=== PATIENT | male | born 1940 | race Hispanic/Latino ===

== ENCOUNTER 2021-03-20 13:06 | Emergency (ER) | payer OTHER, SELFPAY ==
--- OUTSIDE RECORDS SUMMARY | 2021-03-20 13:14 | XMS REPORT | Clinical Summary ---
:1940 Author Organization [facility] MD [facility] Address [address] [place] [address] Care Team Providers Name Role Phone Pako Lopez MD Unavailable MD Danny Primary Care Provider MD Yeny Unavailable Allergies No known active allergies Medications Medication Sig Dispensed Refills Start Date End Date Status ibuprofen (AdviL) 200 Take 200 mg by 0 Active mg tablet mouth every 6 (six) hours as needed for mild pain. As needed for back pain cholecalciferol, Take 2,000 Units 0 Active vitamin D3, (VITAMIN by mouth twice D3) 2,000 units tab daily. Patient tablet instructed to take twice a day pantoprazole Take 1 tablet (40 30 tablet 5 05/16/2020 Active (Protonix) 40 mg EC mg) by mouth tabletIndications: daily with Adenocarcinoma of breakfast. prostate leuprolide, 4 month, Inject 30 mg 0 Active (Eligard, 4 month,) 30 under the skin mg injection every 4 (four) months. Last dose 05/16/2020 acetaminophen Take 500 mg by 0 A ctive (TYLENOL) 500 mg mouth every 6 tablet (six) hours as needed for mild pain. bicalutamide (CASODEX) Take 1 tablet (50 30 tablet 0 1 Active 50 mg mg) by mouth tabletIndications: daily. Adenocarcinoma of prostate enalapril (VASOTEC) 10 Take 1 tablet (10 90 tablet 2 1 Active mg tabletIndications: mg) by mouth blood pressure daily. Hold dose if systolic blood pressure (top number) is less than 110. tamsulosin (FLOMAX) Take 2 capsules 60 capsule 6 09/25/2020 Active 0.4 mg 24 hr (0.8 mg) by mouth capsuleIndications: at bedtime. Adenocarcinoma of prostate diphenoxylate-atropine Take 1 tablet by 45 tablet 0 2020 Active (LomotiL) 2.5 mg-0.025 mouth every 6 mg per (six) hours as tabletIndications: needed for Diarrhea diarrhea. Not to exceed 8 tablets per day Additional Information Patient not taking. Reason: Other, Reported on 10/27/2020 mirtazapine (REMERON) Take 1 tablet 30 tablet 0 2020 Active 7.5 mg (7.5 mg) by tabletIndications: mouth at Insomnia due to medical bedtime. condition metoprolol succinate Take 1 tablet 90 tablet 3 10/27/2020 Active (TOPROL XL) 25 mg 24 hr (25 mg) by mouth tabletIndications: daily. Hold blood pressure, heart dose if systolic rate blood pressure (top number) is less than 110 or heart rate less than 55. apixaban (Eliquis) 5 mg Take 1 tablet (5 60 tablet 5 Active tabletIndications: mg) by mouth Paroxysmal atrial every 12 fibrillation (twelve) hours. amLODIPine (NORVASC) 5 Take 5 mg by 0 / 3 Discontinued mg tablet mouth daily. (Stop T aking at Discharge) enalapril (VASOTEC) 10 Take 10 mg by 0 11 Discontinued mg tablet mouth daily. (Reorde r) acetaminophen (TYLENOL) Take 500 mg by 0 0 3/05 Discontinued 500 mg tablet mouth as needed /2020 (Therapy for mild pain. compl eted) PRN for headache venlafaxine (Effexor Take 1 capsule 30 capsule 5 04/18/2020 Discontinued XR) 75 mg 24 hr (75 mg) by mouth /2020 (Stop Taking at capsuleIndications: at bedtime. Discharge) Adenocarcinoma of prostate zolpidem (Ambien) 5 mg Take 1 tablet (5 30 tablet 5 04/18/202005/16 Discontinued tabletIndications: mg) by mouth /2020 (Reorder) Adenocarcinoma of nightly as prostate needed for sleep. degarelix (FIRMAGON) Inject 240 mg 0 07/16 Discontinued 120 mg/3 mL solr under the skin (Therapy injection once. Last dose com pleted) 04/18/2020 zolpidem (Ambien) 5 mg Take 1 tablet (5 30 tablet 5 05/16/202008/20 Discontinued tabletIndications: mg) by mouth /2020 (Reorder) Adenocarcinoma of nightly as prostate needed for sleep. sodium,potassium,mag Take as directed 177 mL 0 07/25/2020 0 08/24 Discontinued sulfates (Suprep) for colonoscopy /2020 (Stop Taking at 17.5-3.13-1.6 gram prep D ischarge) solrIndications: Colonoscopy planned ciprofloxacin HCl Take 1 tablet 6 tablet 0 07/29/202008/01 (Cipro) 250 mg (250 mg) by tabletIndications: mouth twice Adenocarcinoma of daily for 3 prostate days. Additional Information Patient not taking. Reason: No longer taking, Informant: Spouse/Significant Other, Reported on 07/30/2020 bicalutamide (CASODEX) Take 1 30 tablet 5 07/30/20202020 Discontinued 50 mg tablet (50 (Reorder) tabletIndications: mg) by mouth Adenocarcinoma of daily. prostate tamsulosin (FLOMAX) Take 1 30 capsule 6 07/30/2020 09/26/19 Discontinued 0.4 mg 24 hr capsule (0.4 (Reo rder) capsuleIndications: mg) by mouth Adenocarcinoma of at bedtime. prostate ondansetron Dissolve 1 20 tablet 1 08/20/2020 10/31/2020 Disco ntinued (ZOFRAN-ODT) 8 mg tablet (8 (T herapy disintegrating mg) on the comp leted) tabletIndications: tongue every Adenocarcinoma of 8 (eight) prostate hours as needed for vomiting. zolpidem (Ambien) 5 mg Take 1 30 tablet 5 08/21/20202020 Discontinued tabletIndications: tablet (5 ( Therapy Adenocarcinoma of mg) by mouth completed) prostate nightly as needed for sleep. amoxicillin-clavulanat Take 1 14 tablet 0 08/22/20202020 e (Augmentin) 875 tablet (875 mg-125 mg per mg) by mouth tabletIndications: twice daily infection for 7 days. metoprolol succinate Take 1 30 tablet 2 08/22/2020 10/28/19 21 Discontinued (TOPROL XL) 25 mg 24 tablet (25 (Reorder) hr tabletIndications: mg) by mouth blood pressure, heart daily. Hold rate dose if systolic blood pressure (top number) is less than 110 or heart rate less than 55. enalapril (VASOTEC) 10 Take 1 0 08/22/20202020 Discontinued mg tabletIndications: tablet (10 (Reorder) blood pressure mg) by mouth daily. Hold dose if systolic blood pressure (top number) is less than 110. enalapril (VASOTEC) 10 Take 1 90 tablet 0 08/24/20202020 Discontinued mg tabletIndications: tablet (10 (Reorder) blood pressure mg) by mouth daily. Hold dose if systolic blood pressure (top number) is less than 110. Active Problems Patient Care Coordination Note Formatting of this note might be differe nt from the original. Patient with cognitive issues and needs assistance with ADLs. Please allow daughter to accompany him to clinic visits and procedures . The following people are approved to obt ain medical information about the patient via phone: Contact #1: Name: Latoya Serna ( Daughter ) [phone] Contact #2: Name: Phone Number: Contact #3: Name: Phone Number: Contact #4: Name: Phone Number: Patient has some cognitive deficiency th at will require assistance by his daughter during procedures and clinic visits. Problem Noted Date Atrial fibrillation 08/22/2020 Last Assessment & Plan: Patient had an episode of atrial fibrill ation with a heart rate of 95 bpm on EKG 08 27 2020 when he presented status post fall. On exam patient is in a regular rate and rhythm. Most recent EKG shows s inus rhythm. Asymptomatic for palpitati ons. Continue rhythm control on metoprolol succinate 25 mg p.o. daily. CHADS-VASc: 3 (HTN, age x 2) HAS-BLED: 1 (fall) with prior recommendation for patient to be started on anticoagulation. Was seen and emailed cardiology attending and primary team regarding starting patient on Eliquis 5 mg p.o. twice daily. Dizziness 08/22/2020 Pneumonia 08/22/2020 Hypotension 08/22/2020 Insomnia 05/16/2020 Anemia in neoplastic disease 04/19/2020 Overweight 04/19/2020 Chronic back pain 02/14/2020 Adjustment disorder with mixed anxiety and depressed m ood 02/14/2020 Nocturia 02/14/2020 Essential (primary) hypertension 02/13/2020 Last Assessment & Plan: Blood pressure modestly controlled in e clinicat 146/71. Continue management with metoprolol succinate 25 mg daily and enalapril 10 mg p.o. daily Mixed hyperlipidemia 02/13/2020 Adenocarcinoma of prostate 02/08/2020 Resolved Problems Problem Noted Date Resolved Date Chest pain 08/22/2020 10/27/2020 Adjustment disorder with anxiety 04/18/2020 021 Acute hypoxemic respiratory failure 03/05/2020 02/0 08/2020 COVID-19 viral pneumonia 02/27/2020 04/19/2020 Encounters Date Type Specialty Care Team Description 01/12/2021 Refill Radiation Oncology Christatrey, Adenocarc inoma of Serena, STOCK CAR DRIVER prostate 01/12/2021 Orders Only Genitourinary Oncology Kait Nails, RPH 11/20/2020 Refill Genitourinary Oncology Sanjuanita Lerma, Ad enocarcinoma of FIRST RESPONDER prostate 11/19/2020 Telephone Radiation Oncology Hang Menjivar RN 11/19/2020 Nurse Only Radiation Oncology Hang Menjivar RN 10/31/2020 Telemedicine Gastroenterology, Navin Lal Diarrhe a (Primary Dx); Hepatology & Nutrition MD Gavin gardner history of colon polyps 10/31/2020 Prep for Surgery Gastroenterology, Polly Berg, Hepatology & Nutrition FIRST RESPONDER 10/31/2020 Travel 10/29/2020 Telephone Radiation Oncology Emely Ng, ARA 10/29/2020 Nurse Only Radiation Oncology Emely Ng, ARA 10/27/2020 Follow-Up Cardiology Ian, Paroxysmal atri al fibrillation; Kathie Moser NP Essential (primary) hypertension Harlan Brandon PA 10/27/2020 Travel 10/23/2020 Orders Only Radiation Oncology Crabtrey, Adenocarc inoma of Serena, STOCK CAR DRIVER prostate (Prim aislinn Dx) 10/17/2020 Hospital Encounter Radiation Oncology Nick Delgado MD 10/17/2020 Documentation Proton Therapy Marek Saini MD 10/17/2020 Travel 10/16/2020 Hospital Encounter Radiation Oncology Nick Delgado MD 10/16/2020 Travel 10/15/2020 Hospital Encounter Radiation Oncology Nick Delgado MD 10/15/2020 Travel 10/14/2020 Hospital Encounter Radiation Oncology Nick Delgado MD 10/14/2020 Travel 10/13/2020 Hospital Encounter Radiation Oncology Nick Delgado MD 10/13/2020 Travel 10/10/2020 Hospital Encounter Radiation Oncology Nick Delgado MD 10/10/2020 Travel 10/09/2020 Hospital Encounter Radiation Oncology Nick Delgado MD 10/09/2020 Travel 10/08/2020 Hospital Encounter Radiation Oncology Nick Delgado MD 10/08/2020 Hospital Encounter Radiation Oncology Marek Saini MD 10/08/2020 Travel 2020 Hospital Encounter Radiation Oncology Nick Delgado MD 2020 Travel 10/06/2020 Hospital Encounter Radiation Oncology Nick Delgado MD 10/06/2020 Travel 10/03/2020 Hospital Encounter Radiation Oncology Nick Delgado MD 10/03/2020 Travel 10/01/2020 Hospital Encounter Radiation Oncology Yeny Milly nocarcinoma of MD Marek prostate (Prim aislinn Dx) 10/01/2020 Telephone Radiation Oncology Hang Menjivar RN 10/01/2020 Travel 09/30/2020 Hospital Encounter Radiation Oncology Nick Delgado MD 09/30/2020 Travel 09/29/2020 Hospital Encounter Radiation Oncology Nick Delgado MD 09/29/2020 Travel 09/26/2020 Hospital Encounter Radiation Oncology Nick Delgado MD 09/26/2020 Travel 09/25/2020 Hospital Encounter Radiation Oncology Nick Delgado MD 09/25/2020 Travel 09/25/2020 Orders Only Radiation Oncology Ashley Jones 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, FIRST RESPONDER prostate 09/24/2020 Hospital Encounter Radiation Oncology Nick Delgado MD 09/24/2020 Hospital Encounter Radiation Oncology Milly Saini nocarcinoma of MD Marek prostate (Prim aislinn Dx) 09/24/2020 Hospital Encounter Radiation Oncology Nick Delgado MD 09/24/2020 Hospital Encounter Radiation Oncology Nick Delgado MD 09/24/2020 Documentation Physical Therapy Mattie Royal, PT 09/24/2020 Travel 09/23/2020 Hospital Encounter Radiation Oncology Nick Delgado MD 09/23/2020 Travel 09/22/2020 Hospital Encounter Radiation Oncology Nick Delgado MD 09/22/2020 Hospital Encounter Radiation Oncology Nick Delgado MD 09/22/2020 Travel 09/19/2020 Hospital Encounter Radiation Oncology Nick Delgado MD 09/19/2020 Telephone Radiation Oncology Hang Menjivar RN 09/19/2020 Travel 09/18/2020 Hospital Encounter Radiation Oncology Nick Delgado MD 09/18/2020 Orders Only Radiation Oncology Jeannie Sainicardavid inoma of MD Marek prostate (Prim aislinn Dx) 09/18/2020 Travel 09/17/2020 Hospital Encounter Radiation Oncology Nick Delgado MD 09/17/2020 Hospital Encounter Radiation Oncology Milly Saini nocarcinoma of MD Marek prostate (Prim aislinn Dx) 09/17/2020 Travel 09/16/2020 Hospital Encounter Radiation Oncology Nick Delgado MD 09/16/2020 Telephone Radiation Oncology Hang Menjivar RN 09/16/2020 Travel 09/12/2020 Hospital Encounter Radiation Oncology Nick Delgado MD 09/12/2020 Travel 09/11/2020 Hospital Encounter Radiation Oncology Nick Delgado MD 09/11/2020 Travel 09/10/2020 Hospital Encounter Radiation Oncology Nick Delgado MD 09/10/2020 Hospital Encounter Radiation Oncology Marek Saini MD 09/10/2020 Travel 09/09/2020 Hospital Encounter Radiation Oncology Nick Delgado MD 09/09/2020 Travel 09/08/2020 Hospital Encounter Radiation Oncology Nick Delgado MD 09/08/2020 Travel 09/05/2020 Hospital Encounter Radiation Oncology Nick Delgado MD 09/05/2020 Travel 09/04/2020 Hospital Encounter Radiation Oncology Nick Delgado MD 09/04/2020 Travel 09/03/2020 Hospital Encounter Radiation Oncology Nick Delgado MD 09/03/2020 Hospital Encounter Radiation Oncology Milly SainiarcIván MD prostate (Prim aislinn Dx) 09/03/2020 Travel 09/02/2020 Hospital Encounter Radiation Oncology Nick Delgado MD 09/02/2020 Travel 09/01/2020 Hospital Encounter Radiation Oncology Nick Delgado MD 09/01/2020 Travel 09/01/2020 Telephone Radiation Oncology Hang Menjivar, RN 08/30/2020 Emergency Emergency Medicine Juan Pablo Hanson Chronic d epression (Primary Dx); MD Rui Mild dehydratio n; Fatigue; Anemia of chron ic disease; Anorexia; Adenocarcinoma of prostate 08/30/2020 Travel 08/30/2020 Nurse Lou Durant, ARA 08/29/2020 Hospital Encounter Radiation Oncology Nick Delgado MD 08/29/2020 Travel 08/28/2020 Hospital Encounter Radiation Oncology Nick Delgado MD 08/28/2020 Travel 08/27/2020 Hospital Encounter Lab Crabtrey, Dysuria Serena, STOCK CAR DRIVER 08/27/2020 Hospital Encounter Radiation Oncology Nick Delgado MD 08/27/2020 Hospital Encounter Radiation Oncology Milly Saini nocarcinoBetty MD prostate (Prim aislinn Dx) 08/27/2020 Orders Only Radiation Oncology Crabtrey, Adenocarc inoma of Serena, STOCK CAR DRIVER prostate (Prim aislinn Dx) 08/27/2020 Orders Only Radiation Oncology Crabtrey, Dysuria ( Primary Serena, STOCK CAR DRIVER Dx) 08/27/2020 Travel 08/26/2020 Hospital Encounter Radiation Oncology Nick Delgado MD 08/26/2020 Travel 08/24/2020 Orders Only Genitourinary Oncology Robert, Adeno carcinoma of Renju, SENIOR CREDIT ANALYST prostate (Prima ry Dx) 08/22/2020 Travel 08/21/2020 Hospital Encounter Gastrointestinal Juan Pablo Hanson Bifas cicular block (Primary Dx); - Surgery MD Rui Syncope; 08/24/2020 Daniel Lal, Joy; Paroxysmal atrial fibrillation; Nick Delgado, Chest pain, not otherwise specified; High troponin I level; Postprandial di arrhea; Contusion of he ad; Moderate dehydr ation; Essential (prim aislinn) hypertension; Adenocarcinoma of prostate; Pneumonia, not otherwise specified; Atrial fibrilla tion, not otherwise specified; Anemia in neopl astic disease 08/21/2020 Hospital Encounter Radiation Oncology Nick Delgado MD 08/21/2020 Documentation Radiation Oncology Ashley Jones, FIRST RESPONDER 08/21/2020 Travel 08/20/2020 Hospital Encounter Radiation Oncology Nick Delgado MD 08/20/2020 Refill Genitourinary Oncology Sanjuanita Lerma, Balbir enocarcinoma of FIRST RESPONDER prostate 08/20/2020 Refill Radiation Oncology Crabtrey, Adenocarc inoma of Serena, STOCK CAR DRIVER prostate 08/20/2020 Orders Only Radiation Oncology Crabtrey, Adenocarc inoma of Serena, STOCK CAR DRIVER prostate (Prim aislinn Dx) 08/20/2020 Travel 08/19/2020 Hospital Encounter Radiation Oncology Nick Delgado MD 08/19/2020 Travel 08/18/2020 Hospital Encounter Radiation Oncology Nick Delgado MD 08/18/2020 Travel 08/18/2020 Documentation Proton Therapy Marek Saini MD 08/11/2020 Hospital Encounter Radiation Oncology Nick Delgado MD 08/07/2020 Orders Only GastroenterologyJose Personal h istory of Hepatology & Nutrition DEVAUGHN Gonzalez colon ic polyp (Primary Dx) 07/30/2020 Hospital Encounter Radiation Oncology Marek Saini MD 07/30/2020 Hospital Encounter Radiation Oncology SubNick perales, Adenocarcinoma of MD prostate 07/30/2020 Hospital Encounter Radiation Oncology SubNick perales, Adenocarcinoma of MD prostate 07/30/2020 Documentation Proton Therapy Marek Saini MD 07/30/2020 Orders Only Radiation Oncology Crabtrey, Adenocarc inoma of Serena, STOCK CAR DRIVER prostate (Prim aislinn Dx) 07/30/2020 Documentation Radiation Oncology Crabtrey, Serena, STOCK CAR DRIVER 07/30/2020 Documentation Proton Therapy Marek Saini MD 07/30/2020 Orders Only Radiation Oncology Crabtrey, Adenocarc inoma of Serena, STOCK CAR DRIVER prostate (Prim aislinn Dx) 07/30/2020 Travel 07/29/2020 Anesthesia Event Radiology Amos Velez, Henry Triana, MARIA R 07/29/2020 Hospital Encounter Radiology Danny Nick, Adenoc arcinoma of MD prostate Henry Small, CURATOR HERBARIUM Chapito Lopez MD 07/29/2020 Telephone Radiation Oncology Hang Menjivar, RN 07/29/2020 Telephone Radiation Oncology Hang Menjivar RN 07/29/2020 Travel 07/28/2020 POEM Appointments Anesthesiology Kateryna Gu PA 07/28/2020 Anesthesia Event Endoscopy Alexis Cam MD 07/28/2020 Surgery Endoscopy [facility] DIAGNOSTIC FLEX IBLE Major, COLONOSCOPY MD Tanesha PROXIMAL TO SPL ENIC FLEXURE 07/28/2020 Hospital Encounter Endoscopy [facility] Adenocarc inoma of Major, prostate MD Tanesha 07/28/2020 Hospital Encounter Lab Brittanie, Adenocarc inoma of Kateryna ELIZABETH Saez prostate 07/28/2020 Orders Only Radiology Susan Up PA 07/28/2020 Orders Only Radiology Susan Up Adenocarcino ma of PA prostate (Prima ry Dx) 07/28/2020 Travel 07/27/2020 Clinical Support Infectious Diseases Nick Delgado E ncounter for MD observation for Paola Rodriguez, other suspecte d RN exposure to biological agen t ruled out (Prim aislinn Dx) 07/27/2020 Travel 07/25/2020 Anesthesia Event Anesthesiology Dwain Estrada RN 07/25/2020 POEM Appointments Anesthesiology Nick Delgado MD 07/25/2020 Orders Only MorenoologyPhil Lauren Colonoscop y planned Hepatology & Nutrition ELIZABETH Alvarado (Prim aislinn Dx) 07/25/2020 Refill Anesthesiology Dwain Estrada RN 07/17/2020 Orders Only Radiology Kateryna Gu PA 07/16/2020 Office Visit Genitourinary Oncology Nick Delgado, Stephanie sential (primary) hypertension (Primary Dx); Adenocarcinoma of prostate; Mixed hyperlipi demia; Chronic back pa in; Adjustment diso rder with mixed anxiety and depressed mood; Nocturia; Anemia in neopl astic disease; Insomnia, not o therwise specified; Overweight 07/16/2020 Hospital Encounter Radiation Oncology Milly Saini nocarcinoma of MD Marek prostate 07/16/2020 Travel 07/15/2020 Ancillary Procedure Radiology Sanjuanita Lerma, Adeno carcinoma of FIRST RESPONDER prostate 07/15/2020 Ancillary Procedure Radiology Sanjuanita Lerma, FIRST RESPONDER 07/15/2020 Ancillary Procedure Radiology Sanjuanita Lerma, Adeno carcinoma of FIRST RESPONDER prostate 07/15/2020 Hospital Encounter Lab Sanjuanita Lerma, Adenoc arcinoma of FIRST RESPONDER prostate 07/15/2020 Travel 06/12/2020 Orders Only Intensive Care Sanjuanita Lerma, FIRST RESPONDER 05/31/2020 Immunization Infectious Diseases [place], SARS-CoV -2 MD Rick vaccination (Primary Dx) 05/31/2020 Travel 05/28/2020 Orders Only Radiation Oncology Crabtrey, Adenocarc inoma of Serena, STOCK CAR DRIVER prostate (Prim aislinn Dx) 05/19/[address] 05/18/2020 Orders Only Genitourinary Oncology Sanjuanita Lerma, Ad enocarcinoma of FIRST RESPONDER prostate (Prima ry Dx) 05/16/2020 Office Visit Genitourinary Oncology Nick Delgado Ad enocarcinoma of prostate (Primary Dx); Essential (prim aislinn) hypertension; Mixed hyperlipi demia; Chronic back pa in; Adjustment diso rder with mixed anxiety and depressed mood; Nocturia; Anemia in neopl astic disease; Overweight; Other insomnia 05/16/2020 Hospital Encounter Lab Reginaldo Padilla, Adenocarc inoma of SENIOR CREDIT ANALYST prostate 05/16/2020 Travel 05/12/2020 Orders Only Genitourinary Oncology Sanjuanita Lerma, FIRST RESPONDER 04/21/2020 Emergency Emergency Medicine Attila, Dysphagia (Primary Dx); - MD Otoniel Adenocarcinoma of prostate 04/22/2020 04/21/2020 Travel 04/21/2020 Orders Only Genitourinary Oncology Reginaldo Padilla, Adeno carcinoma of SENIOR CREDIT ANALYST prostate (Prima ry Dx) 04/21/2020 Telephone Genitourinary Oncology Mercedez Galloway RN 04/18/2020 Immunization Infectious Diseases Davin SARS-CoV -2 MD Rick vaccination 04/18/2020 Office Visit Genitourinary Oncology Nick Delgado Ad enocarcinoma of prostate (Primary Dx); Nocturia; Overweight; Adjustment diso rder with mixed anxiety and depressed mood; Anemia in neopl astic disease; Chronic back pa in 04/18/2020 Travel 04/17/2020 Orders Only Genitourinary Oncology Sanjuanita Lerma, FIRST RESPONDER 04/16/2020 Orders Only Infectious Diseases YUE Jin-CoV -2 MD Rick vaccination 04/09/2020 Hospital Encounter Cardiology Sanjuanita Lerma, Adenoc arcinoma of FIRST RESPONDER prostate 04/09/2020 Ancillary Procedure Radiology Nisha Lermane, Adeno carcinoma of FIRST RESPONDER prostate 04/09/2020 Travel 04/08/2020 Hospital Encounter Lab Sanjuanita Lerma, Adenoc arcinoma of FIRST RESPONDER prostate 04/08/2020 Anesthesia Event Radiology Malathi García, RN 04/08/2020 Ancillary Procedure Radiology Sanjuanita Lerma, Adeno carcinoma of FIRST RESPONDER prostate 04/08/2020 Orders Only Genitourinary Oncology Sanjuanita Lerma, Ad enocarcinoma of FIRST RESPONDER prostate (Prima ry Dx) 04/08/2020 Travel 03/26/2020 Hospital Encounter Radiation Oncology Milly Saini nocarcinoma of MD Marek prostate 03/26/2020 Prep for Surgery Endoscopy Keli Ackerman, Adenocar cinoma of FIRST RESPONDER prostate (Prima ry Dx) 03/25/2020 Telephone Radiation Oncology Johnny Yeager, ARA 03/25/2020 Documentation Radiation Oncology Jhonny Yeager, ARA 03/23/2020 Orders Only Genitourinary Oncology Sanjuanita eLrma NP 03/21/2020 Nurse Only Radiation Oncology Hang Menjivar RN after 03/20/2020 Immunizations Name Administration Dates Next Due Kendra SARS-CoV-2 Vaccination 05/31/2020 remdesivir 03/07/2020, 03/06/2020, 03/05/2020, 03/04/2020, 03/03/2020 Surgical History Surgery Date Site/Laterality Comments LAPAROSCOPIC CHOLECYSTECOMY PROSTATE BIOPSY 09/14/2019 HERNIA REPAIR Bilateral SHOULDER SURGERY 03/14/2011 - Right 03/13/2012 [place] COLONOSCOPY FLX DX 07/28/2020 N/A Procedure: DIAGNOSTIC W/COLLJ SPEC WHEN PFRMD FLEXIBLE COLONOSCOPY PROXIMAL TO SPLE ARAVIND FLEXURE; Surgeo n: Tanesha Major MD; Location: MAIN E NDOSCOPY; Service: GASTROE NTEROLOGY Medical History Medical History Date Comments Essential hypertension Chronic depression Adenocarcinoma of prostate 09/14/2019 Social History Tobacco Use Types Packs/Day Years Used Date Former Smoker Cigarettes 0.5 43 1964 - 2007 Smokeless Tobacco: Never Used Comments: used to smoke; quit 12 years a go Alcohol Use Standard Drinks/Week Comments Never 0 (1 standard drink = 0.6 oz pure alcoho l) Alcohol Habits Answer Date Recorded How often do you have a drink containing alcohol? Never 02/13/2020 How many drinks containing alcohol do you have on a typical Not asked 02/13/2020 day when you are drinking? How often do you have six or more drinks on one occasion? Ne nehemias 02/13/2020 Comment: Not asked Sex Assigned at Date Recorded Not on file Job Start Date Occupation Industry Not on file Not on file Not on file Obstetrics History Last Filed Vital Signs Vital Sign Reading Time Taken Comments Blood Pressure 146/71 10/27/2020 3:30 PM CDT Pulse 53 10/27/2020 3:30 PM CDT Temperature 36.7 C (98.1 F) 10/27/2020 3:30 PM CDT Respiratory Rate 16 10/27/2020 3:30 PM CDT Oxygen Saturation 97% 10/27/2020 3:30 PM CDT Inhaled Oxygen Concentration - - Weight 62.4 kg (137 lb 9.1 oz) 10/27/2020 3:30 PM CDT Height 161 cm (5' 3.39") 08/21/2020 11:51 PM CDT Body Mass Index 24.07 08/21/2020 11:51 PM CDT Plan of Treatment Date Type Specialty Care Team Description 04/29/2021 Appointment Lab Chon Stuart, STOCK CAR DRIVER [address] [place], [place] [address] (Wo rk) 04/29/2021 Appointment Radiation Oncology Margarita Saini MD [address] [place], [place] [address] (Wo rk) 04/29/2021 Follow-Up Cardiology Harlan Brandon PA [address] [place], [place] [address] (Wo rk) Health Maintenance Due Date Last Done Comments COVID-19 Vaccination (2 - Booster for Kendra series) 07/26/2020 05/31/2020 Procedures Procedure Name Priority Date/Time Associated Diagnosis Comme nts EKG, 12-LEAD (PORTABLE) STAT 08/31/2020 CT HEAD WO CONTRAST Routine 08/30/2020 Results for 5:35 PM CDT this procedure are in the results section. INFLUENZA A/B + Now 08/30/2020 Results for COVID-19 ASYMPTOMATIC-L 4:58 PM CDT this procedure are in the results section. POC TROPONIN I Routine 08/30/2020 Results for 4:55 PM CDT this procedure are in the results section. POC GLUCOSE SCREEN Routine 08/30/2020 Results f or 4:40 PM CDT this procedure are in the results section. TMP INTERPRETATION STAT 08/30/2020 Results f or ANTIBODY SCREEN 4:36 PM CDT this procedu re NEGATIVE are in the results section. CLOT EXPIRATION DATE STAT 08/30/2020 Results for 4:36 PM CDT this procedure are in the results section. FRACTIONATED BILIRUBIN Now 08/30/2020 Resul ts for 4:36 PM CDT this procedure are in the results section. TOTAL PROTEIN Now 08/30/2020 Results for 4:36 PM CDT this procedure are in the results section. ASPARTATE Now 08/30/2020 Results for AMINOTRANSFERASE 4:36 PM CDT this proced ure are in the results section. ALANINE Now 08/30/2020 Results for AMINOTRANSFERASE 4:36 PM CDT this proced ure are in the results section. ALKALINE PHOSPHATASE Now 08/30/2020 Results for 4:36 PM CDT this procedure are in the results section. ALBUMIN LEVEL Now 08/30/2020 Results for 4:36 PM CDT this procedure are in the results section. CALCIUM LEVEL TOTAL Now 08/30/2020 Results for 4:36 PM CDT this procedure are in the results section. .GLOMERULAR FILTRATION Now 08/30/2020 Resul ts for RATE 4:36 PM CDT this procedure are in the results section. SERUM CREATININE Now 08/30/2020 Results for 4:36 PM CDT this procedure are in the results section. ELECTROLYTE PANEL Now 08/30/2020 Results fo r 4:36 PM CDT this procedure are in the results section. BLOOD UREA NITROGEN Now 08/30/2020 Results for 4:36 PM CDT this procedure are in the results section. GLUCOSE LEVEL Now 08/30/2020 Results for 4:36 PM CDT this procedure are in the results section. MANUAL DIFFERENTIAL STAT 08/30/2020 Results for 4:36 PM CDT this procedure are in the results section. Results CBC STAT 08/30/2020 Results for 4:36 PM CDT this procedure are in the results section. ANTIBODY SCREEN STAT 08/30/2020 Results for 4:36 PM CDT this procedure are in the results section. ABORH STAT 08/30/2020 Results for 4:36 PM CDT this procedure are in the results section. FREE THYROXINE Now 08/30/2020 Results for 4:36 PM CDT this procedure are in the results section. URIC ACID Now 08/30/2020 Results for 4:36 PM CDT this procedure are in the results section. THYROID STIMULATING Now 08/30/2020 Results for HORMONE 4:36 PM CDT this procedure are in the results section. LIPASE LEVEL Now 08/30/2020 Results for 4:36 PM CDT this procedure are in the results section. AMYLASE LEVEL Now 08/30/2020 Results for 4:36 PM CDT this procedure are in the results section. TYPE AND SCREEN STAT 08/30/2020 4:36 PM CDT APTT Now 08/30/2020 Results for 4:36 PM CDT this procedure are in the results section. PROTHROMBIN TIME Now 08/30/2020 Results for 4:36 PM CDT this procedure are in the results section. PHOSPHORUS LEVEL Now 08/30/2020 Results for 4:36 PM CDT this procedure are in the results section. MAGNESIUM LEVEL Now 08/30/2020 Results for 4:36 PM CDT this procedure are in the results section. COMPREHENSIVE METABOLIC Now 08/30/2020 PANEL 4:36 PM CDT COMPLETE BLOOD COUNT W/ Now 08/30/2020 DIFFERENTIAL 4:36 PM CDT URINALYSIS WITH Routine 08/27/2020 Results for MICROSCOPIC IF 12:29 PM CDT this procedur e INDICATED are in the results section. URINALYSIS MICROSCOPIC Routine 08/27/2020 Dysuria Resul ts for 12:29 PM CDT this procedure are in the results section. URINE CULTURE Routine 08/27/2020 Dysuria Results for 12:29 PM CDT this procedure are in the results section. CALCIUM LEVEL TOTAL AM 08/24/2020 Results for 2:57 AM CDT this procedure are in the results section. .GLOMERULAR FILTRATION AM 08/24/2020 Resul ts for RATE 2:57 AM CDT this procedure are in the results section. SERUM CREATININE AM 08/24/2020 Results for 2:57 AM CDT this procedure are in the results section. ELECTROLYTE PANEL AM 08/24/2020 Results fo r 2:57 AM CDT this procedure are in the results section. BLOOD UREA NITROGEN AM 08/24/2020 Results for 2:57 AM CDT this procedure are in the results section. GLUCOSE LEVEL AM 08/24/2020 Results for 2:57 AM CDT this procedure are in the results section. PHOSPHORUS LEVEL AM 08/24/2020 Results for 2:57 AM CDT this procedure are in the results section. MAGNESIUM LEVEL AM 08/24/2020 Results for 2:57 AM CDT this procedure are in the results section. BASIC METABOLIC PANEL, AM 08/24/2020 CALCIUM TOTAL 2:57 AM CDT MANUAL DIFFERENTIAL Routine 08/23/2020 Results for 6:49 AM CDT this procedure are in the results section. Results CBC Routine 08/23/2020 Results for 6:49 AM CDT this procedure are in the results section. COMPLETE BLOOD COUNT W/ Routine 08/23/2020 DIFFERENTIAL 6:49 AM CDT CALCIUM LEVEL TOTAL AM 08/23/2020 Results for 3:58 AM CDT this procedure are in the results section. .GLOMERULAR FILTRATION AM 08/23/2020 Resul ts for RATE 3:58 AM CDT this procedure are in the results section. SERUM CREATININE AM 08/23/2020 Results for 3:58 AM CDT this procedure are in the results section. ELECTROLYTE PANEL AM 08/23/2020 Results fo r 3:58 AM CDT this procedure are in the results section. BLOOD UREA NITROGEN AM 08/23/2020 Results for 3:58 AM CDT this procedure are in the results section. GLUCOSE LEVEL AM 08/23/2020 Results for 3:58 AM CDT this procedure are in the results section. PHOSPHORUS LEVEL AM 08/23/2020 Results for 3:58 AM CDT this procedure are in the results section. MAGNESIUM LEVEL AM 08/23/2020 Results for 3:58 AM CDT this procedure are in the results section. BASIC METABOLIC PANEL, AM 08/23/2020 CALCIUM TOTAL 3:58 AM CDT XR ABDOMEN 1 VW Routine 08/22/2020 Results for PORTABLE 2:59 PM CDT this procedure are in the results section. ECHOCARDIOGRAM 2D Routine 08/22/2020 Results fo r COMPLETE W CONTRAST 11:39 AM CDT this pro cedure are in the results section. MANUAL DIFFERENTIAL Routine 08/22/2020 Results for 5:54 AM CDT this procedure are in the results section. Results CBC Routine 08/22/2020 Results for 5:54 AM CDT this procedure are in the results section. FRACTIONATED BILIRUBIN Routine 08/22/2020 Resul ts for 5:54 AM CDT this procedure are in the results section. TOTAL PROTEIN Routine 08/22/2020 Results for 5:54 AM CDT this procedure are in the results section. ASPARTATE Routine 08/22/2020 Results for AMINOTRANSFERASE 5:54 AM CDT this proced ure are in the results section. ALANINE Routine 08/22/2020 Results for AMINOTRANSFERASE 5:54 AM CDT this proced ure are in the results section. ALKALINE PHOSPHATASE Routine 08/22/2020 Results for 5:54 AM CDT this procedure are in the results section. ALBUMIN LEVEL Routine 08/22/2020 Results for 5:54 AM CDT this procedure are in the results section. CALCIUM LEVEL TOTAL Routine 08/22/2020 Results for 5:54 AM CDT this procedure are in the results section. .GLOMERULAR FILTRATION Routine 08/22/2020 Resul ts for RATE 5:54 AM CDT this procedure are in the results section. SERUM CREATININE Routine 08/22/2020 Results for 5:54 AM CDT this procedure are in the results section. ELECTROLYTE PANEL Routine 08/22/2020 Results fo r 5:54 AM CDT this procedure are in the results section. BLOOD UREA NITROGEN Routine 08/22/2020 Results for 5:54 AM CDT this procedure are in the results section. GLUCOSE LEVEL Routine 08/22/2020 Results for 5:54 AM CDT this procedure are in the results section. COMPLETE BLOOD COUNT W/ Routine 08/22/2020 DIFFERENTIAL 5:54 AM CDT COMPREHENSIVE METABOLIC Routine 08/22/2020 PANEL 5:54 AM CDT TROPONIN T Routine 08/22/2020 Results for 12:03 AM CDT this procedure are in the results section. EKG, 12-LEAD (PORTABLE) Routine 08/22/2020 TROPONIN T Routine 08/21/2020 Results for 8:45 PM CDT this procedure are in the results section. TROPONIN T Routine 08/21/2020 Results for 5:00 PM CDT this procedure are in the results section. URINALYSIS WITH Now 08/21/2020 Results for MICROSCOPIC IF 5:00 PM CDT this procedur e INDICATED are in the results section. URINE CULTURE Now 08/21/2020 Results for 5:00 PM CDT this procedure are in the results section. CT HEAD WO CONTRAST Routine 08/21/2020 Results for 2:57 PM CDT this procedure are in the results section. XR CHEST 1 VW PORTABLE Routine 08/21/2020 Resul ts for 1:10 PM CDT this procedure are in the results section. RESPIRATORY VIRAL PANEL Now 08/21/2020 Resu lts for + COVID-19, 1:05 PM CDT this procedure NASOPHARYNGEAL SWAB are in t he results section. POC TROPONIN I Routine 08/21/2020 Results for 12:49 PM CDT this procedure are in the results section. POC VENOUS BLOOD GAS + Routine 08/21/2020 Resul ts for LACTATE 12:47 PM CDT this procedure are in the results section. POC CHEM 8 Routine 08/21/2020 Results for 12:32 PM CDT this procedure are in the results section. TMP INTERPRETATION Routine 08/21/2020 Results f or ANTIBODY SCREEN 12:27 PM CDT this procedu re NEGATIVE are in the results section. CLOT EXPIRATION DATE Routine 08/21/2020 Results for 12:27 PM CDT this procedure are in the results section. ANTIBODY SCREEN Now 08/21/2020 Results for 12:27 PM CDT this procedure are in the results section. ABORH Now 08/21/2020 Results for 12:27 PM CDT this procedure are in the results section. FRACTIONATED BILIRUBIN Now 08/21/2020 Resul ts for 12:27 PM CDT this procedure are in the results section. TOTAL PROTEIN Now 08/21/2020 Results for 12:27 PM CDT this procedure are in the results section. ASPARTATE Now 08/21/2020 Results for AMINOTRANSFERASE 12:27 PM CDT this proced ure are in the results section. ALANINE Now 08/21/2020 Results for AMINOTRANSFERASE 12:27 PM CDT this proced ure are in the results section. ALKALINE PHOSPHATASE Now 08/21/2020 Results for 12:27 PM CDT this procedure are in the results section. ALBUMIN LEVEL Now 08/21/2020 Results for 12:27 PM CDT this procedure are in the results section. CALCIUM LEVEL TOTAL Now 08/21/2020 Results for 12:27 PM CDT this procedure are in the results section. .GLOMERULAR FILTRATION Now 08/21/2020 Resul ts for RATE 12:27 PM CDT this procedure are in the results section. SERUM CREATININE Now 08/21/2020 Results for 12:27 PM CDT this procedure are in the results section. ELECTROLYTE PANEL Now 08/21/2020 Results fo r 12:27 PM CDT this procedure are in the results section. BLOOD UREA NITROGEN Now 08/21/2020 Results for 12:27 PM CDT this procedure are in the results section. GLUCOSE LEVEL Now 08/21/2020 Results for 12:27 PM CDT this procedure are in the results section. MANUAL DIFFERENTIAL STAT 08/21/2020 Results for 12:27 PM CDT this procedure are in the results section. Results CBC STAT 08/21/2020 Results for 12:27 PM CDT this procedure are in the results section. CARDIAC PANEL Timed Study 08/21/2020 Results for 12:27 PM CDT this procedure are in the results section. C REACTIVE PROTEIN Now 08/21/2020 Results f or 12:27 PM CDT this procedure are in the results section. LACTATE DEHYDROGENASE Now 08/21/2020 Result s for 12:27 PM CDT this procedure are in the results section. FIBRINOGEN ACTIVITY Now 08/21/2020 Results for 12:27 PM CDT this procedure are in the results section. D DIMER Now 08/21/2020 Results for 12:27 PM CDT this procedure are in the results section. APTT Now 08/21/2020 Results for 12:27 PM CDT this procedure are in the results section. PROTHROMBIN TIME Now 08/21/2020 Results for 12:27 PM CDT this procedure are in the results section. PHOSPHORUS LEVEL Now 08/21/2020 Results for 12:27 PM CDT this procedure are in the results section. MAGNESIUM LEVEL Now 08/21/2020 Results for 12:27 PM CDT this procedure are in the results section. COMPREHENSIVE METABOLIC Now 08/21/2020 PANEL 12:27 PM CDT TYPE AND SCREEN Now 08/21/2020 12:27 PM CDT COMPLETE BLOOD COUNT W/ Now 08/21/2020 DIFFERENTIAL 12:27 PM CDT BLOODCULTURE STAT 08/21/2020 Results for 12:27 PM CDT this procedure are in the results section. EKG, 12-LEAD (PORTABLE) STAT 08/21/2020 IR TRANSPERINEAL Routine 07/29/2020 Adenocarcinoma of Result s for PLACEMENT BIODEGRADABLE 2:48 PM CDT prostate this procedure MATERIAL are in the results section. IR PLACEMENT OF Routine 07/29/2020 Adenocarcinoma of Results for INTERSTITIAL DEVICE FOR 2:48 PM CDT prostate this procedure PROSTATE XRT are in the results section. PATHOLOGY BIOPSY Routine 07/28/2020 Adenocarcinoma of Result s for INTERPRETATION 12:29 PM CDT prostate this procedur e are in the results section. DIAGNOSTIC FLEXIBLE 07/28/2020 Adenocarcinoma of COLONOSCOPY PROXIMAL TO 12:04 PM CDT prostate SPLENIC FLEXURE ENDOSCOPY NOTE RESULTS 07/28/2020 Resul ts for 11:24 AM CDT this procedure are in the results section. TMP INTERPRETATION Routine 07/28/2020 Results f or ANTIBODY SCREEN 10:51 AM CDT this procedu re NEGATIVE are in the results section. CLOT EXPIRATION DATE Routine 07/28/2020 Results for 10:51 AM CDT this procedure are in the results section. ANION GAP Routine 07/28/2020 Results for 10:51 AM CDT this procedure are in the results section. ANTIBODY SCREEN Routine 07/28/2020 Results for 10:51 AM CDT this procedure are in the results section. MANUAL DIFFERENTIAL Routine 07/28/2020 Results for 10:51 AM CDT this procedure are in the results section. ABORH Routine 07/28/2020 Results for 10:51 AM CDT this procedure are in the results section. Results CBC Routine 07/28/2020 Results for 10:51 AM CDT this procedure are in the results section. .GLOMERULAR FILTRATION Routine 07/28/2020 Resul ts for RATE 10:51 AM CDT this procedure are in the results section. SERUM CREATININE Routine 07/28/2020 Results for 10:51 AM CDT this procedure are in the results section. TYPE AND SCREEN Routine 07/28/2020 10:51 AM CDT GLUCOSE, RANDOM Routine 07/28/2020 Results for 10:51 AM CDT this procedure are in the results section. PROTHROMBIN TIME Routine 07/28/2020 Results for 10:51 AM CDT this procedure are in the results section. BLOOD UREA NITROGEN Routine 07/28/2020 Results for 10:51 AM CDT this procedure are in the results section. SERUM CREATININE Routine 07/28/2020 10:51 AM CDT POTASSIUM LEVEL Routine 07/28/2020 Results for 10:51 AM CDT this procedure are in the results section. SODIUM LEVEL Routine 07/28/2020 Results for 10:51 AM CDT this procedure are in the results section. CHLORIDE LEVEL Routine 07/28/2020 Results for 10:51 AM CDT this procedure are in the results section. CARBON DIOXIDE LEVEL Routine 07/28/2020 Results for 10:51 AM CDT this procedure are in the results section. COMPLETE BLOOD COUNT W/ Routine 07/28/2020 DIFFERENTIAL 10:51 AM CDT TESTOSTERONE LEVEL Routine 07/28/2020 Adenocarcinoma of Resu lts for 10:51 AM CDT prostate this procedure are in the results section. PROSTATE SPECIFIC Routine 07/28/2020 Adenocarcinoma of Resul ts for ANTIGEN 10:51 AM CDT prostate this procedure are in the results section. COVID-19 (SARS-COV-2) Routine 07/27/2020 Encounter for Resul ts for PCR-ASYMPTOMATIC MC 10:34 AM CDT observation for this procedure other suspected are in the exposure to results biological agent section. ruled out CT CHEST ABDOMEN PELVIS Routine 07/15/2020 Adenocarcinoma of Results for W CONTRAST 6:44 PM CDT prostate this procedure are in the results section. NM BONE SCAN WHOLE BODY Routine 07/15/2020 Adenocarcinoma of Results for 1:56 PM CDT prostate this procedure are in the results section. MANUAL DIFFERENTIAL Routine 07/15/2020 Adenocarcinoma of Res ults for 11:27 AM CDT prostate this procedure are in the results section. Results CBC Routine 07/15/2020 Adenocarcinoma of Results fo r 11:27 AM CDT prostate this procedure are in the results section. .GLOMERULAR FILTRATION Routine 07/15/2020 Adenocarcinoma of Results for RATE 11:27 AM CDT prostate this procedure are in the results section. SERUM CREATININE Routine 07/15/2020 Adenocarcinoma of Result s for 11:27 AM CDT prostate this procedure are in the results section. VITAMIN D 25 HYDROXY Routine 07/15/2020 Adenocarcinoma of Re sults for LEVEL 11:27 AM CDT prostate this procedure are in the results section. TOTAL PROTEIN Routine 07/15/2020 Adenocarcinoma of Results f or 11:27 AM CDT prostate this procedure are in the results section. TESTOSTERONE LEVEL Routine 07/15/2020 Adenocarcinoma of Resu lts for 11:27 AM CDT prostate this procedure are in the results section. PROSTATE SPECIFIC Routine 07/15/2020 Adenocarcinoma of Resul ts for ANTIGEN 11:27 AM CDT prostate this procedure are in the results section. PHOSPHORUS LEVEL Routine 07/15/2020 Adenocarcinoma of Result s for 11:27 AM CDT prostate this procedure are in the results section. MAGNESIUM LEVEL Routine 07/15/2020 Adenocarcinoma of Results for 11:27 AM CDT prostate this procedure are in the results section. LACTATE DEHYDROGENASE Routine 07/15/2020 Adenocarcinoma of R esults for 11:27 AM CDT prostate this procedure are in the results section. GLUCOSE, RANDOM Routine 07/15/2020 Adenocarcinoma of Results for 11:27 AM CDT prostate this procedure are in the results section. FRACTIONATED BILIRUBIN Routine 07/15/2020 Adenocarcinoma of Results for 11:27 AM CDT prostate this procedure are in the results section. ELECTROLYTE PANEL Routine 07/15/2020 Adenocarcinoma of Resul ts for 11:27 AM CDT prostate this procedure are in the results section. SERUM CREATININE Routine 07/15/2020 Adenocarcinoma of 11:27 AM CDT prostate COMPLETE BLOOD COUNT W/ Routine 07/15/2020 Adenocarcinoma of DIFFERENTIAL 11:27 AM CDT prostate CALCIUM LEVEL TOTAL Routine 07/15/2020 Adenocarcinoma of Res ults for 11:27 AM CDT prostate this procedure are in the results section. BLOOD UREA NITROGEN Routine 07/15/2020 Adenocarcinoma of Res ults for 11:27 AM CDT prostate this procedure are in the results section. ASPARTATE Routine 07/15/2020 Adenocarcinoma of Results fo r AMINOTRANSFERASE 11:27 AM CDT prostate this proced ure are in the results section. ALKALINE PHOSPHATASE Routine 07/15/2020 Adenocarcinoma of Re sults for 11:27 AM CDT prostate this procedure are in the results section. ALBUMIN LEVEL Routine 07/15/2020 Adenocarcinoma of Results f or 11:27 AM CDT prostate this procedure are in the results section. ALANINE Routine 07/15/2020 Adenocarcinoma of Results fo r AMINOTRANSFERASE 11:27 AM CDT prostate this proced ure are in the results section. MANUAL DIFFERENTIAL Routine 05/16/2020 Adenocarcinoma of Res ults for 6:34 AM [employer] prostate this procedure are in the results section. Results CBC Routine 05/16/2020 Adenocarcinoma of Results fo r 6:34 AM [employer] prostate this procedure are in the results section. .GLOMERULAR FILTRATION Routine 05/16/2020 Adenocarcinoma of Results for RATE 6:34 AM [employer] prostate this procedure are in the results section. SERUM CREATININE Routine 05/16/2020 Adenocarcinoma of Result s for 6:34 AM [employer] prostate this procedure are in the results section. TOTAL PROTEIN Routine 05/16/2020 Adenocarcinoma of Results f or 6:34 AM [employer] prostate this procedure are in the results section. PROSTATE SPECIFIC Routine 05/16/2020 Adenocarcinoma of Resul ts for ANTIGEN 6:34 AM [employer] prostate this procedure are in the results section. PHOSPHORUS LEVEL Routine 05/16/2020 Adenocarcinoma of Result s for 6:34 AM [employer] prostate this procedure are in the results section. MAGNESIUM LEVEL Routine 05/16/2020 Adenocarcinoma of Results for 6:34 AM [employer] prostate this procedure are in the results section. LACTATE DEHYDROGENASE Routine 05/16/2020 Adenocarcinoma of R esults for 6:34 AM [employer] prostate this procedure are in the results section. GLUCOSE, RANDOM Routine 05/16/2020 Adenocarcinoma of Results for 6:34 AM [employer] prostate this procedure are in the results section. FRACTIONATED BILIRUBIN Routine 05/16/2020 Adenocarcinoma of Results for 6:34 AM [employer] prostate this procedure are in the results section. ELECTROLYTE PANEL Routine 05/16/2020 Adenocarcinoma of Resul ts for 6:34 AM [employer] prostate this procedure are in the results section. SERUM CREATININE Routine 05/16/2020 Adenocarcinoma of 6:34 AM [employer] prostate COMPLETE BLOOD COUNT W/ Routine 05/16/2020 Adenocarcinoma of DIFFERENTIAL 6:34 AM [employer] prostate CARCINOEMBRYONIC Routine 05/16/2020 Adenocarcinoma of Result s for ANTIGEN 6:34 AM [employer] prostate this procedure are in the results section. CALCIUM LEVEL TOTAL Routine 05/16/2020 Adenocarcinoma of Res ults for 6:34 AM [employer] prostate this procedure are in the results section. BLOOD UREA NITROGEN Routine 05/16/2020 Adenocarcinoma of Res ults for 6:34 AM [employer] prostate this procedure are in the results section. ASPARTATE Routine 05/16/2020 Adenocarcinoma of Results fo r AMINOTRANSFERASE 6:34 AM [employer] prostate this proced ure are in the results section. ALKALINE PHOSPHATASE Routine 05/16/2020 Adenocarcinoma of Re sults for 6:34 AM [employer] prostate this procedure are in the results section. ALBUMIN LEVEL Routine 05/16/2020 Adenocarcinoma of Results f or 6:34 AM [employer] prostate this procedure are in the results section. ALANINE Routine 05/16/2020 Adenocarcinoma of Results fo r AMINOTRANSFERASE 6:34 AM [employer] prostate this proced ure are in the results section. VITAMIN D 25 HYDROXY Routine 05/16/2020 Adenocarcinoma of Re sults for LEVEL 6:31 AM [employer] prostate this procedure are in the results section. TESTOSTERONE LEVEL Routine 05/16/2020 Adenocarcinoma of Resu lts for 6:31 AM [employer] prostate this procedure are in the results section. CT SOFT TISSUE NECK W Routine 04/22/2020 Result s for CONTRAST 12:43 AM [employer] this procedure are in the results section. EKG, 12-LEAD (PORTABLE) STAT 04/22/2020 XR CHEST 1 VW Routine 04/21/2020 Results for 11:28 PM [employer] this procedure are in the results section. POC VENOUS BLOOD GAS + Routine 04/21/2020 Resul ts for LACTATE 10:21 PM [employer] this procedure are in the results section. URINALYSIS MICROSCOPIC Routine 04/21/2020 Resul ts for 10:16 PM [employer] this procedure are in the results section. FRACTIONATED BILIRUBIN Now 04/21/2020 Resul ts for 10:16 PM [employer] this procedure are in the results section. TOTAL PROTEIN Now 04/21/2020 Results for 10:16 PM [employer] this procedure are in the results section. ASPARTATE Now 04/21/2020 Results for AMINOTRANSFERASE 10:16 PM [employer] this proced ure are in the results section. ALANINE Now 04/21/2020 Results for AMINOTRANSFERASE 10:16 PM [employer] this proced ure are in the results section. ALKALINE PHOSPHATASE Now 04/21/2020 Results for 10:16 PM [employer] this procedure are in the results section. ALBUMIN LEVEL Now 04/21/2020 Results for 10:16 PM [employer] this procedure are in the results section. CALCIUM LEVEL TOTAL Now 04/21/2020 Results for 10:16 PM [employer] this procedure are in the results section. .GLOMERULAR FILTRATION Now 04/21/2020 Resul ts for RATE 10:16 PM [employer] this procedure are in the results section. SERUM CREATININE Now 04/21/2020 Results for 10:16 PM [employer] this procedure are in the results section. ELECTROLYTE PANEL Now 04/21/2020 Results fo r 10:16 PM [employer] this procedure are in the results section. BLOOD UREA NITROGEN Now 04/21/2020 Results for 10:16 PM [employer] this procedure are in the results section. GLUCOSE LEVEL Now 04/21/2020 Results for 10:16 PM [employer] this procedure are in the results section. MANUAL DIFFERENTIAL STAT 04/21/2020 Results for 10:16 PM [employer] this procedure are in the results section. Results CBC STAT 04/21/2020 Results for 10:16 PM [employer] this procedure are in the results section. URINALYSIS WITH Now 04/21/2020 Results for MICROSCOPIC IF 10:16 PM [employer] this procedur e INDICATED are in the results section. D DIMER Now 04/21/2020 Results for 10:16 PM [employer] this procedure are in the results section. APTT Now 04/21/2020 Results for 10:16 PM [employer] this procedure are in the results section. PROTHROMBIN TIME Now 04/21/2020 Results for 10:16 PM [employer]P [employer] this procedure are in the results section. NT PRO BNP Now 04/21/2020 Results for 10:16 PM [employer] this procedure are in the results section. CARDIAC PANEL Timed Study 04/21/2020 Results for 10:16 PM [employer] this procedure are in the results section. HC PROCALCITONIN (PCT) Now 04/21/2020 Resul ts for 10:16 PM [employer] this procedure are in the results section. PHOSPHORUS LEVEL Now 04/21/2020 Results for 10:16 PM [employer] this procedure are in the results section. MAGNESIUM LEVEL Now 04/21/2020 Results for 10:16 PM [employer] this procedure are in the results section. COMPREHENSIVE METABOLIC Now 04/21/2020 PANEL 10:16 PM [employer]ER COMPLETE BLOOD COUNT W/ Now 04/21/2020 DIFFERENTIAL 10:16 PM [employer]P [employer]ER BLOODCULTURE Now 04/21/2020 Results for 10:16 PM [employer]ICER this procedure are in the results section. URINE CULTURE Now 04/21/2020 Results for 10:16 PM [employer]ICER this procedure are in the results section. 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 MRI PELVIS W WO Routine 04/09/2020 Adenocarcinoma of Results for CONTRAST PROSTATE 9:13 AM [employer] prostate this proce dure are in the results section. MANUAL DIFFERENTIAL Routine 04/08/2020 Adenocarcinoma of Res ults for 6:35 PM [employer]ER prostate this procedure are in the results section. Results CBC Routine 04/08/2020 Adenocarcinoma of Results fo r 6:35 PM [employer] OFFICER prostate this procedure are in the results section. .GLOMERULAR FILTRATION Routine 04/08/2020 Adenocarcinoma of Results for RATE 6:35 PM [employer]ER prostate this procedure are in the results section. SERUM CREATININE Routine 04/08/2020 Adenocarcinoma of Result s for 6:35 PM [employer]ER prostate this procedure are in the results section. TOTAL PROTEIN Routine 04/08/2020 Adenocarcinoma of Results f or 6:35 PM [employer] prostate this procedure are in the results section. TESTOSTERONE LEVEL Routine 04/08/2020 Adenocarcinoma of Resu lts for 6:35 PM [employer]ICER prostate this procedure are in the results section. PROSTATE SPECIFIC Routine 04/08/2020 Adenocarcinoma of Resul ts for ANTIGEN 6:35 PM [employer] OFFICER prostate this procedure are in the results section. PHOSPHORUS LEVEL Routine 04/08/2020 Adenocarcinoma of Result s for 6:35 PM [employer] OFFICER prostate this procedure are in the results section. MAGNESIUM LEVEL Routine 04/08/2020 Adenocarcinoma of Results for 6:35 PM [employer] OFFICER prostate this procedure are in the results section. LACTATE DEHYDROGENASE Routine 04/08/2020 Adenocarcinoma of R esults for 6:35 PM [employer]ICER prostate this procedure are in the results section. GLUCOSE, RANDOM Routine 04/08/2020 Adenocarcinoma of Results for 6:35 PM [employer]ER prostate this procedure are in the results section. FRACTIONATED BILIRUBIN Routine 04/08/2020 Adenocarcinoma of Results for 6:35 PM [employer]ICER prostate this procedure are in the results section. ELECTROLYTE PANEL Routine 04/08/2020 Adenocarcinoma of Resul ts for 6:35 PM [employer]ICER prostate this procedure are in the results section. SERUM CREATININE Routine 04/08/2020 Adenocarcinoma of 6:35 PM [employer]ICER prostate COMPLETE BLOOD COUNT W/ Routine 04/08/2020 Adenocarcinoma of DIFFERENTIAL 6:35 PM [employer]ICER prostate CALCIUM LEVEL TOTAL Routine 04/08/2020 Adenocarcinoma of Res ults for 6:35 PM [employer]ICER prostate this procedure are in the results section. BLOOD UREA NITROGEN Routine 04/08/2020 Adenocarcinoma of Res ults for 6:35 PM [employer]ICER prostate this procedure are in the results section. ASPARTATE Routine 04/08/2020 Adenocarcinoma of Results fo r AMINOTRANSFERASE 6:35 PM [employer] OFFICER prostate this proced ure are in the results section. ALKALINE PHOSPHATASE Routine 04/08/2020 Adenocarcinoma of Re sults for 6:35 PM [employer]ER prostate this procedure are in the results section. ALBUMIN LEVEL Routine 04/08/2020 Adenocarcinoma of Results f or 6:35 PM [employer]ICER prostate this procedure are in the results section. ALANINE Routine 04/08/2020 Adenocarcinoma of Results fo r AMINOTRANSFERASE 6:35 PM [employer] OFFICER prostate this proced ure are in the results section. 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 after 03/20/2020 Results EKG, 12-Lead (Portable) (08/31/2020)Only the most recent of4 resultswithin the time period is included. Specimen Narrative This result has an attachment that is no t available. Performing Organization Address City/State/ZIP Code Phon e Number MICHAEL IECG CT Head without Contrast (08/30/2020 5:35 PM CDT)Only the most recent of2 resultswithin the time period is included. Specimen Impressions [id number] - 08/30/2020 5:59 PM CDT No acute intracranial abnormality. Narrative [id number] - 08/30/2020 5:59 PM CDT FULL RESULT: Examination: CT HEAD WO CONTRAST on 08/30 5:35 PM Clinical History: Prostate cancer Indication: Syncope, Atrial fibrillation , frequent falls, evaluate for stroke Comparison: CT head, 08/21/2020 Technique: CT head without intravenous c ontrast was performed. Findings: There is no intracranial hemorrhage. The re is no mass effect or midline shift. There is no hydrocephalus. There is no large vascular territory infarction. Again noted is a nonspecific subcutaneou s nodule in the left frontal scalp (series 4, image 72). There is also note of nonspecific subcentimeter lucent foci within the calvarium, for example as seen on series 5, image 78, to be followed. Procedure Note Stephan Charlton MD - 08/30/2020 FULL RESULT: Examination: CT HEAD WO CONTRAST on 08/30 5:35 PM Clinical History: Prostate cancer Indication: Syncope, Atrial fibrillation , frequent falls, evaluate for stroke Comparison: CT head, 08/21/2020 Technique: CT head without intravenous c ontrast was performed. Findings: There is no intracranial hemorrhage. The re is no mass effect or midline shift. There is no hydrocephalus. There is no large vascular territory infarction. Again noted is a nonspecific subcutaneou s nodule in the left frontal scalp (series 4, image 72). There is also note of nonspecific subcentimeter lucent foci within the calvarium, for example as seen on series 5, image 78, to be followed. IMPRESSION: No acute intracranial abnormality. Performing Organization Address City/State/ZIP Code Phon e Number [id number] Influenza A/B + COVID-19 Asymptomatic- L (08/30/2020 4:58 PM CDT) COVID19 Not Detected Not Detected [facility] (SARS-CoV-2) [facility] Influenza A Not Detected Not Detected [facility] Influenza B Not Detected Not Detected [facility] COVID19 SARS Inpatient Admission [facility] Indication CANCER CENTER Inf AB+Cov19 See Note [facility] Comment Comment: CANCER REFORM The walter SARS-CoV-2 & Influ jennifer A/B nucleic acid test for use on the walter Rachel System is a multiplex real-time RT-PCR assay intended for the simultaneous, qualitative detection and differential of SARS-CoV-2 (COVID-19), influenza A, and influenza B viral RNA in nasopharyngeal swabs in transport media from patients suspected of having a respiratory infection with one of these viruses or possibly exposure to COVID-19 by a healthcare provider. Results must be interpreted within the context of all relevant clinical and labora tory findings and should not form the sole basis for a diagnosis or treatment decision. A fact sheet for patients provided by the data entry machine operator ([employer]) can be reviewed at: https://www.LookBooker.gov/media/412816/download A fact sheet for Health Care providers is provided by the data entry machine operator ([employer]) and can be reviewed at: https://www.LookBooker.gov/media/525134/download Influenza A and Influenza B negative results should be considered presumptive in samples that have a positive SARS-CoV-2 result. If co-infection with influenza A or influenza B virus is suspected in mary ples with a positive SARS-CoV-2 results, the sample should be re-tested with another approved influenza te st. This assay has been authoriz ed by the FDA for use only under Emergency Use Authorization (EUA) in laboratories that have been CLIA-certified to perform moderate-complexity and high-complexity tests. The Microbiology Laboratory at [facility] [place], CLIA Accreditation # [id number] and CAP Accreditation #[id number], verified the performance characteristics of this assay. Internal controls are used to monitor all stages of the test process. Specimen Nasopharyngeal Swab Performing Organization Address City/State/ZIP Code Phon e Number [facility] CANCER Unless otherwise noted, [place], [place] [id number] [place] [address] all lab tests performed by: Division of Pathology and Laboratory Medicine [facility] POC Troponin I (08/30/2020 4:55 PM CDT)Only the most recent of2 resultswithin the time period is included. POC CTNI 0.00 0.00 - 0.08 POC TELCOR Comment: ng/mL This cTnI test is performed by the [id number] italia zer method, and the result may be different from the Clinical Labo ratory Method. Abnormal test results are recommended for conf irmatory test by Clinical laboratory method. Patients with norm al test results but clinically suspicious for acute myocardial infarction should be tested by Clinical Laboratory method. Method description: The Trop onin I (cTnI) uses a two-site enzyme-linked immunosorbent assay (SNEHA) method. Antibodies specific for human cardiac troponin I (cTnI) are located on an electrochemical sens or fabricated on a silicon chip. The whole blood is brought into contact with th e sensors allowing the enzyme conjugate to dissolve into the sample. The enzyme bound to the antibody/antigen/antibody sandwich cleaves the substrate releasing an electrochemically detectable product. The electrochemical (amperometric) sensor measur es this enzyme product which is proportional to the concentration of cTnI within the sample. POC Clean Dev Yes POC [facility] POC TELCOR [facility] Clinical Lab, [address] [place] [address]; Front Desk Representative: Kelsea Stafford MD Specimen Blood Performing Organization Address [facility] Phon e Number POC TELCOR (ABNORMAL) POC Glucose Screen (08/30/2020 4:40 PM CDT) Pathologist [facility] POC Glucose 106 (H) 70 - 99 mg/dL POC TELCOR Comment: Capillary blood samples, e.g . obtained by fingerstick, may have inaccurate results in patients with decreased peripheral blood flow. Method description: All resu lts are measured using Electrochemistry test methodology. The glucose in the sample mixes with the reagents on the test strip. The reaction produces an electric current. The amount of current produced is proportional to the glucose concentration in the blood. PO Sample Type Capillary POC TELCOR Per[facility] POC TELCOR [facility] Clinical Lab, [address] [place] [address]; Front Desk Representative: Kelsea Stafford MD Specimen Blood Performing Organization Address [facility] Phon e Number POC TELCOR .Serum Creatinine (08/30/2020 4:36 PM CDT)Only the most recent of10 results within the time period is included. Pathologist Sig nature Creatinine 0.77 0.67 - 1.17 mg/dL [facility] CANCER C ENTER Specimen Blood Performing Organization Address [facility]/ZIP Code Phon e Number [facility] CANCER Unless otherwise noted, [address] all lab tests performed by: Division of Pathology and Laboratory Medicine [facility] (ABNORMAL) .CBC (08/30/2020 4:36 PM CDT)Only the most recent of9 resultswithin the time period is included. WBC 4.9 4.0 - 11.0 [facility] K/uL [facility] RBC 3.82 (L) 4.50 - 6.00 [facility] M/uL [facility] Hgb 11.6 (L) 14.0 - 18.0 [facility] gm/dL [facility] Hct 35.5 (L) 40.0 - 54.0 % [facility] MCV 93 82 - 98 fL [facility] MCH 30.4 27.0 - 31.0 pg [facility] MCHC 32.7 31.0 - 36.0 [facility] gm/dL [facility] RDW-SD 45.1 35.1 - 46.3 fL [facility] RDW-CV 13.4 12.0 - 15.5 % [facility] Platelet count 145 140 - 440 K/uL [facility] MPV 11.4 (H) 4.0 - 10.4 fL [facility] INRBC 0.0 <=0.0 % [facility] Comment: CANCER CENTER The INRBC (instrument NRBC) value reflects the enumera tion of nucleated red blood cells contained in a 200uL samp le of whole blood analyzed by the instrument. This value may differ from the NRBC value reported in a manual differ ential, which is based on a 100 cell differential. Specimen Blood Performing Organization Address City/State/ZIP Code Phon e Number [facility] CANCER Unless otherwise noted, [address] all lab tests performed by: Division of Pathology and Laboratory Medicine [address] [place] [address] Clot Expiration Date (08/30/2020 4:36 PM CDT)Only the most recent of3 results within the time period is included. Pathologist Sig nature T & S Expiration 09/02/2020 [facility] Specimen Blood Performing Organization Address City/[facility]/ZIP [facility] Phon e Number [facility] CANCER Unless otherwise noted, [address] all lab tests performed by: Division of Pathology and Laboratory Medicine [address] [facility] Glomerular Filtration Rate (08/30/2020 4:36 PM CDT)Only the most recent of10 resultswithin the time period is included. eGFR-AA 100 >=60 [facility] Comment: mL/min/1.73 [facility] Normal eGFR: >= 60 mL/min/1.73 m2 sq. m Note: The eGFR is calculated using the CKD-EPI equation. The eGFR declines with age. eGFR <60 mL/min/1.73 m2 is considered as "decreased". This equation should only be used for patients 18 and older. According to the National dney Foundation's Kidney Disease Outcome Quality Initiative (KDOQI) classification and 2012 Kidney Disease Improving Global Outcomes (KDIGO) Clinical Practice Guideline, the stage of CKD should be categorized based on estimated GFR. Stage Description GFR mL/min/1.73 m2 1 Normal or high GFR >=90 2 Mildly decreased GFR 60-89 3a Mildly to moderately decreased GFR 45-59 3b Moderately to severely decreased GFR 30-44 4 Severely decreased GFR 15-29 5 Kidney failure <15 eGFR-DARIEN 87 >=60 [facility] Comment: mL/min/1.73 [facility] Normal eGFR: >= 60 mL/min/1.73 m2 sq. m Note: The eGFR is calculated using the CKD-EPI equation. The eGFR declines with age. eGFR <60 mL/min/1.73 m2 is considered as "decreased". This equation should only be used for patients 18 and older. According to the National dney Foundation's Kidney Disease Outcome Quality Initiative (KDOQI) classification and 2012 Kidney Disease Improving Global Outcomes (KDIGO) Clinical Practice Guideline, the stage of CKD should be categorized based on estimated GFR. Stage Description GFR mL/min/1.73 m2 1 Normal or high GFR >=90 2 Mildly decreased GFR 60-89 3a Mildly to moderately decreased GFR 45-59 3b Moderately to severely decreased GFR 30-44 4 Severely decreased GFR 15-29 5 Kidney failure <15 Specimen Blood Performing Organization Address City/State/ZIP Code Phon e Number [facility] CANCER Unless otherwise noted, [place], [facility]30 REFORM all lab tests performed by: Division of Pathology and Laboratory Medicine [address] [facility] Fractionated Bilirubin (08/30/2020 4:36 PM CDT)Only the most recent of7 results within the time period is included. Pathologist [facility] Bili Total 0.3 <=1.2 mg/dL [facility] Comment: [facility] Indocyanine Green (ICG) may cause falsely elevated bilirubin results. Total and direct bilirubin must not be measured from samples containing indocyanine green. False elevation of total roman irubin can be seen in patients with IgG concentrations above 28 g/L. Bili Direct <0.2Comment: <=0.3 mg/dL [facility] Indocyanine Green [facility] (ICG) may cause falsely elevated bilirubin results. Total and direct bilirubin must not be measured from samples containing indocyanine green. Bili Indirect See NoteComment: 0.0 - 0.9 [facility] Unable to calculate mg/dL [facility] Indirect Bilirubin result due to some parameters are outside reportable range Specimen Blood Performing Organization Address [facility] Phon e Number [facility] CANCER Unless otherwise noted, [address] all lab tests performed by: Division of Pathology and Laboratory Medicine [address] [place] [address] TMP Interpretation Antibody Screen Negative (08/30/2020 4:36 PM CDT)Only the most recent of3 resultswithin the time period is included. Pathologist [facility] TMP Auto Neg ABSC At the present time, patielvira t plasma shows no evidence of RBC alloantibodies. [facility] Interp Comment: [facility] MD Vazquez BELL [id number] Dictated by: JOSETTE CASILLAS MD - [id number] Dictated Date/Time: 09.01.19 8:45 AM CDT Transcribed Date/Time: 08.31.2020 8:45 AM CDT Electronically Signed By: MD Vazquez SOLIS [id number] on 08.31.2020 8:45 AM C Specimen Blood Performing Organization Address [facility] Phon e Number [facility] CANCER Unless otherwise noted, [address] all lab tests performed by: Division of Pathology and Laboratory Medicine [address] [place] [address] Partial Thromboplastin Time (08/30/2020 4:36 PM CDT)Only the most recent of3 resultswithin the time period is included. Pathologist Sig nature aPTT 31.4 24.7 - 36.8 second(s) [facility]ENTER Specimen Blood Performing Organization Address City/[facility]/ZIP Code Phon e Number [facility] CANCER Unless otherwise noted, [address] all lab tests performed by: Division of Pathology and Laboratory Medicine [address] [place] [address] ABORh (08/30/2020 4:36 PM CDT)Only the most recent of3 resultswithin the time period is included. Pathologist Sig [facility] ABORh. O POS [facility] Specimen Blood Performing Organization Address City/[facility] Phon e Number [facility] CANCER Unless otherwise noted, [address] all lab tests performed by: Division of Pathology and Laboratory Medicine [address] [place] [address] (ABNORMAL) Differential (08/30/2020 4:36 PM CDT)Only the most recent of9 resultswithin the time period is included. Neutrophil % 71.7 (H) 42.0 - 66.0 % [facility] Lymphocyte % 16.2 (L) 24.0 - 44.0 % [facility] Monocyte % 8.6 (H) 2.0 - 7.0 % [facility] Eosinophil % 2.5 1.0 - 4.0 % [facility] Basophil % 0.4 0.0 - 1.0 % [facility] IGRE % 0.6 (H)Comment: 0.0 - 0.4 % [facility] IGRE % count CANCER REFORM includes Metamyelocytes, Myelocytes, and Promyelocytes. Neutrophil Abs 3.50 1.70 - 7.30 [facility] Lymphocyte Abs 0.79 (L) 1.00 - 4.80 [facility] Monocyte Abs 0.42 0.08 - 0.70 [facility] Eosinophil Abs 0.12 0.04 - 0.40 [facility] K/uL CAN[facility]ER CENTER Basophil Abs 0.02 0.00 - 0.10 [facility] CENTER IG Abs 0.03 0.00 - 0.04 [facility] Specimen Blood Performing Organization Address City/[facility]/ZIP [facility] Phon e Number [facility] CANCER Unless otherwise noted, [address] all lab tests performed by: Division of Pathology and Laboratory Medicine [facility] Prothrombin Time with INR (08/30/2020 4:36 PM CDT)Only the most recent of4 resultswithin the time period is included. Pathologist Sig nature PT 13.3 11.5 - 13.9 second(s) [facility] INR 1.08 0.90 - 1.10 [facility] Specimen Blood Performing Organization Address [facility] Phon e Number [facility] Unless otherwise noted, [address] all lab tests performed by: Division of Pathology and Laboratory Medicine [address] [place] [address] Antibody Screen (08/30/2020 4:36 PM CDT)Only the most recent of3 resultswithin the time period is included. Pathologist Sig nature ABSC. Negative ABSC [facility] CENT[facility] R Specimen Blood Performing Organization Address [facility] Phon e Number [facility] Unless otherwise noted, [address] all lab tests performed by: Division of Pathology and Laboratory Medicine [address] [place], [place] [address]d (ABNORMAL) Uric Acid (08/30/2020 4:36 PM CDT) Pathologist Sig nature Uric Acid 3.1 (L) 3.4 - 7.0 mg/dL [facility] TER Specimen Blood Performing Organization Address City/[facility]/ZIP [facility] Phon e Number [facility] Unless otherwise noted, [address] all lab tests performed by: Division of Pathology and Laboratory Medicine [address] [place], [place] [address]d BUN (08/30/2020 4:36 PM CDT)Only the most recent of10 resultswithin the time period is included. Pathologist Sig nature BUN 14 6 - 23 mg/dL [facility] Specimen Blood Performing Organization Address City/[facility]/ZIP Code Phon e Number [facility] CANCER Unless otherwise noted, [address] all lab tests performed by: Division of Pathology and Laboratory Medicine [address] [place] ALT (08/30/2020 4:36 PM CDT)Only the most recent of7 resultswithin the time period is included. Pathologist Sig nature ALT 18 <=41 U/L [facility] [facility] Specimen Blood Performing Organization Address City/[facility] Phon e Number [facility] Unless otherwise noted, [address] all lab tests performed by: Division of Pathology and Laboratory Medicine [facility] Aspartate Aminotransferase (08/30/2020 4:36 PM CDT)Only the most recent of7 resultswithin the time period is included. Pathologist Sig nature AST 17 <=40 U/L [facility] Specimen Blood Performing Organization Address [facility] Phon e Number [facility] Unless otherwise noted, [address] all lab tests performed by: Division of Pathology and Laboratory Medicine [address] [facility] TSH (08/30/2020 4:36 PM CDT) Pathologist Sig nature TSH 1.51 0.27 - 4.20 mcunit/mL [facility] CENTER Specimen Blood Performing Organization Address [facility] Phon e Number [facility] Unless otherwise noted, [address] all lab tests performed by: Division of Pathology and Laboratory Medicine [address] [place] [address] [place] (ABNORMAL) Free T4 (08/30/2020 4:36 PM CDT) Pathologist Sig nature T4 Free 1.77 (H) 0.93 - 1.70 ng/dL [facility] Specimen Blood Performing Organization Address City/[facility] Phon e Number [facility] Unless otherwise noted, [address] all lab tests performed by: Division of Pathology and Laboratory Medicine [address] [place], [place] [address] Total Protein (08/30/2020 4:36 PM CDT)Only the most recent of7 resultswithin the time period is included. Pathologist Sig nature Total Protein 6.4 6.4 - 8.3 g/dL [facility] Specimen Blood Performing Organization Address [facility] Phon e Number [facility] Unless otherwise noted, [address] all lab tests performed by: Division of Pathology and Laboratory Medicine [address] [place] Phosphorus Level (08/30/2020 4:36 PM CDT)Only the most recent of8 resultswithin the time period is included. Pathologist Sig nature Phosphorus 4.0 2.5 - 4.5 mg/dL [facility] TER Specimen Blood Performing Organization Address [facility] Phon e Number [facility] Unless otherwise noted, [address] all lab tests performed by: Division of Pathology and Laboratory Medicine [address] [place] Alkaline Phosphatase (08/30/2020 4:36 PM CDT)Only the most recent of7 results within the time period is included. Pathologist Sig nature Alk Phos 76 40 - 129 U/L [facility] Specimen Blood Performing Organization Address [facility] Phon e Number [facility] Unless otherwise noted, [address] all lab tests performed by: Division of Pathology and Laboratory Medicine [address] [place] Magnesium Level (08/30/2020 4:36 PM CDT)Only the most recent of8 resultswithin the time period is included. Pathologist Sig nature Magnesium 2.0 1.6 - 2.6 mg/dL [facility] TER Specimen Blood Performing Organization Address [facility] e [facility] Unless otherwise noted, [address] all lab tests performed by: Division of Pathology and Laboratory Medicine [address] [place] Lipase (08/30/2020 4:36 PM CDT) Pathologist Sig nature Lipase Lvl 17 13 - 60 U/L [facility] Specimen Blood Performing Organization Address [facility] Phon e Number [facility] CANCER Unless otherwise noted, [address] all lab tests performed by: Division of Pathology and Laboratory Medicine [address] [place] (ABNORMAL) Glucose Level (08/30/2020 4:36 PM CDT)Only the most recent of6 resultswithin the time period is included. Glucose Level 101 (H) 70 - 99 mg/dL [facility] Comment: CANCER CENTER Effective 10/08/15, the gluco se reference intervals have been updated based on [place] [employer] guidelines (Standards of Medical Care in Diabetes 2016. Diabetes Care 2016; 39: S13-S22). Fasting blood glucose: Normal: 70 99 mg/dL Impaired fasting glucose (in creased risk for diabetes or pre-diabetes): 100 125 mg/dL Diabetes mellitus: >/=126 mg/dL Random blood glucose: Normal: 70 199 mg/dL Note: Random glucose >100 mg/dL is assoc iated with increased risk for diabetes Specimen Blood Performing Organization Address [facility] Phon e Number [facility] Unless otherwise noted, [address] all lab tests performed by: Division of Pathology and Laboratory Medicine [address] [place] Calcium Level (08/30/2020 4:36 PM CDT)Only the most recent of9 resultswithin the time period is included. Pathologist Sig nature Calcium Lvl 9.3 8.4 - 10.2 mg/dL [facility] NTER Specimen Blood Performing Organization Address [facility] Phon e Number [facility] Unless otherwise noted, [address] all lab tests performed by: Division of Pathology and Laboratory Medicine [address] [place] Amylase (08/30/2020 4:36 PM CDT) Pathologist Sig nature Amylase Lvl 96 28 - 100 U/L [facility] Specimen Blood Performing Organization Address [facility] Phon e Number [facility] Unless otherwise noted, [address] all lab tests performed by: Division of Pathology and Laboratory Medicine [address] [place] Albumin Level (08/30/2020 4:36 PM CDT)Only the most recent of7 resultswithin the time period is included. Pathologist Sig nature Albumin Lvl 3.9 3.5 - 5.2 gm/dL [facility] TER Specimen Blood Performing Organization Address [facility] Phon e Number [facility] Unless otherwise noted, [address] all lab tests performed by: Division of Pathology and Laboratory Medicine [address] [place] Electrolyte Panel (08/30/2020 4:36 PM CDT)Only the most recent of9 results within the time period is included. Pathologist Sig nature Sodium Lvl 139 136 - 145 mEq/L [facility] Potassium Lvl 4.3 3.5 - 5.1 mEq/L [facility] Chloride 102 98 - 107 mEq/L [facility] CO2 27 22 - 29 mEq/L [facility] Anion Gap 10 4 - 14 mEq/L [facility] Specimen Blood Performing Organization Address City/[facility]/ZIP Code Phon e Number [facility] Unless otherwise noted, [address] all lab tests performed by: Division of Pathology and Laboratory Medicine [address] [place] [address] Urinalysis with Microscopic (08/27/2020 12:29 PM CDT)Only the most recent of2 resultswithin the time period is included. Pathologist Sig nature UA WBC <1 0 - 2 /HPF [facility] UA RBC 1 0 - 2 /HPF [facility] UA Mucous TRACE Not Seen-Trace /HPF [facility] UA Bacteria NOT SEEN NOT SEEN /HPF [facility] UA Squam Epi NOT SEEN None-Occasional [facility] /[facility] CENTER Specimen Urine Narrative [facility] - 1 1:18 PM CDT Some reporting parameters within the Urinalysis test have changed due to the implementation of new in strumentation in the [facility], allowi ng greater sensitivity of measurement. Urinalysis results reported by the [facility] using existing instrumentation, as well as Urinalysis t esting performed manually or by backup methodology at the [facility] will remain relatively unchanged. New reporting parameters and units will now be reported for all campuses. Performing Organization Address City/State/ZIP Code Phon e Number [facility] Unless otherwise noted, [address] all lab tests performed by: Division of Pathology and Laboratory Medicine [address] [place] [address] [place] (ABNORMAL) Urinalysis w/Microscopic if Indicated (08/27/2020 12:29 PM CDT)Only the most recent of3 resultswithin the time period is included. Pathologist Sig nature UA Color Straw Straw-Yellow [facility] UA Appear Clear Clear [facility] UA Glucose NEG NEG mg/dL [facility] UA Bili NEG NEG [facility] UA Ketones NEG NEG mg/dL [facility] UA Spec Grav 1.008 1.003 - 1.035 [facility] UA Blood Small (A) NEG [facility] UA pH 7.0 5.0 - 9.0 [facility] UA Protein NEG NEG mg/dL [facility] UA Urobilinogen NEG NEG [facility] UA Nitrite NEG NEG [facility] UA Leuk Est NEG NEG [facility] Specimen Urine Performing Organization Address City/[facility]/ZIP Code Phon e Number [facility] CANCER Unless otherwise noted, [address] all lab tests performed by: Division of Pathology and Laboratory Medicine [address] Urine Culture (08/27/2020 12:29 PM CDT)Only the most recent of3 resultswithin the time period is included. Final Report No growth [facility] Path Review - The results have been review ed and electronically signed by Pathologist: [facility] Urine OTONIEL BURNETT MD #[id number] [facility]ER CENTE R Specimen Urine, Clean Catch Performing Organization Address City/[facility] Phon e Number [facility] CANCER Unless otherwise noted, [address] all lab tests performed by: Division of Pathology and Laboratory Medicine [address] [place] XR Abdomen 1 View Portable (08/22/2020 2:59 PM CDT) Specimen Impressions [id number] - 08/22/2020 4:09 PM CDT Nonobstructive bowel gas pattern. Narrative [id number] - 08/22/2020 4:09 PM CDT FULL RESULT: Examination: XR ABDOMEN 1 VW PORTABLE on 08/22/2020 2:59 PM Clinical History: Bifascicular block Syncope Hypotension Paroxysmal atrial fibrillation Chest pain, not otherwise specified High troponin I level Postprandial diarrhea Contusion of head Moderate dehydration Essential (primary) hypertension Adenocarcinoma of prostate Indication: Diarrhea Comparison: CT 07/15/2020 Technique: XR ABDOMEN 1 VW PORTABLE Findings: Nonobstructive bowel gas pattern. Small left pleural effusion is present. Cholecystectomy clips are seen. Procedure Note Matthew Valdivia MD - 08/22/2020 FULL RESULT: Examination: XR ABDOMEN 1 VW PORTABLE on 08/22/2020 2:59 PM Clinical History: Bifascicular block Syncope Hypotension Paroxysmal atrial fibrillation Chest pain, not otherwise specified High troponin I level Postprandial diarrhea Contusion of head Moderate dehydration Essential (primary) hypertension Adenocarcinoma of prostate Indication: Diarrhea Comparison: CT 07/15/2020 Technique: XR ABDOMEN 1 VW PORTABLE Findings: Nonobstructive bowel gas pattern. Small left pleural effusion is present. Cholecystectomy clips are seen. IMPRESSION: Nonobstructive bowel gas pattern. Performing Organization Address City/State/ZIP Code Phon e Number [id number] Echocardiogram 2D Complete with Contrast (08/22/2020 11:39 AM CDT) Specimen Narrative [facility] - 08/22/2020 12:36 PM CDT Echocardiographic Report Interpretation Summary A complete two-dimensional transthoracic echocardiogram was performed (2D, M- mode, Doppler and color flow Doppler). The study was technically adequate and no significant change is noted compared to the previous study. Micro-Bubbles injection performed because of poor endocardial resolution. Left ventricular systolic function is no rmal. Using an ultrasound enhancing agent and the Biplane Method of Disks, the LVEF measures 59% The right ventricle is normal in size an d function. There is no pericardial effusion. Unable to estimate RVSP due to lack of T R visualization. Left Ventricle: LV is dilated using volumetric criteria. There is normal left ventricular wall thickness. Using an ultrasound enhancing agent and the Biplane Method of Disks, the LVEF measures 59%. Left ventricular sys tolic function is normal. Borderline hyp okinesis noted of the apical cap. Diastology: Unable to evaluate due to technical limi tations. Right Ventricle: The right ventricle is normal in size an d function. Normal RV systolic function using TAPSE criteria. Atria: The left atrium is borderline dilated. R ight atrial size is normal. Aneurysmal motion of the septum is noted. Mitral Valve: The mitral valve is grossly normal. Tricuspid Valve: The tricuspid valve is not well visualiz ed, but is grossly normal. There is trace tricuspid regurgitation. Unable to estimate RVSP due to lack of TR visualization. Aortic Valve: The aortic valve is trileaflet. The aort ic valve opens well. Pulmonic Valve: The pulmonic valve is not well visualize d. Great Vessels: The aortic root is normal size. The infe rior vena cava demonstrates normal size and normal respiratory variation. Pericardium/Pleural: There is no pericardial effusion. MMode/2D Measurements IVSd: 0.78 cm LVIDd: 6.0 cm LVIDs: 4.0 cm LVPWd: 0.95 cm FS: 32.9 % Ao root diam: 2.8 cm Ao root area: 6.3 cm2 LA dimension: 4.4 cm LVOT diam: 2.3 cm EDV(MOD-A4C): 153.4 ml ESV(MOD-A4C): 59.5 ml LVOT area: 4.3 cm2 EF(MOD-A4C): 61.2 % EDV(MOD-A2C): 139.3 ml ESV(MOD-A2C): 52.5 ml EDV(MOD-bp): 144.5 ml EF(MOD-A2C): 62.3 % ESV(MOD-bp): 59.2 ml EF(MOD-bp): 59.0 % EDV (MOD-bp) Index: 87.5 ml/m2 ESV (MOD-bp) Index: 35.9 ml/m2 TAPSE (>1.6): 3.2 cm Doppler Measurements MV E max guzman: 78.5 cm/sec MV V2 max: 93.2 cm/sec MV A max guzman: 64.1 cm/sec MV max P.5 mmHg MV E/A: 1.2 MV V2 mean: 57.6 cm/sec MV mean P.5 mmHg MV V2 VTI: 27.5 cm MVA(VTI): 3.0 cm2 MV P1/2t max guzman: 79.5 cm/sec Ao V2 max: 172.6 cm/sec MV P1/2t: 54.6 msec Ao max P.9 mmHg Ao V2 mean: 104.0 cm/sec MVA(P1/2t): 4.0 cm2 Ao mean P.1 mmHg MV dec slope: 426.2 cm/sec2 Ao V2 VTI: 33.7 cm CINDI(I,D): 2.4 cm2 CINDI(V,D): 2.1 cm2 LV V1 max P.9 mmHg SV(LVOT): 82.1 ml LV V1 mean P.2 mmHg LV V1 max: 85.2 cm/sec LV V1 mean: 50.7 cm/sec LV V1 VTI: 19.2 cm CINDI Index (I,D): 1.5 CINDI Index (V,D): 1.3 Dimensionless Index: 0.49 Procedure Note Colette Aguilar MD - 08/22/2020 Echocardiographic Report Interpretation Summary A complete two-dimensional transthoracic echocardiogram was performed (2D, M- mode, Doppler and color flow Doppler). The study was technically adequate and no significant change is noted compared to the previous study. Micro-Bubbles injection performed because of poor endocardial resolution. Left ventricular systolic function is no rmal. Using an ultrasound enhancing agent and the Biplane Method of Disks, the LVEF measures 59% The right ventricle is normal in size an d function. There is no pericardial effusion. Unable to estimate RVSP due to lack of T R visualization. Left Ventricle: LV is dilated using volumetric criteria. There is normal left ventricular wall thickness. Using an ultrasound enhancing agent and the Biplane Method of Disks, the LVEF measures 59%. Left ventricular systolic function is normal. Borderline hypokinesis noted of the apical cap. Diastology: Unable to evaluate due to technical limi tations. Right Ventricle: The right ventricle is normal in size an d function. Normal RV systolic function using TAPSE criteria. Atria: The left atrium is borderline dilated. R ight atrial size is normal. Aneurysmal motion of the septum is noted. Mitral Valve: The mitral valve is grossly normal. Tricuspid Valve: The tricuspid valve is not well visualiz ed, but is grossly normal. There is trace tricuspid regurgitation. Unable to estimate RVSP due to lack of TR visualization. Aortic Valve: The aortic valve is trileaflet. The aort ic valve opens well. Pulmonic Valve: The pulmonic valve is not well visualize d. Great Vessels: The aortic root is normal size. The infe rior vena cava demonstrates normal size and normal respiratory variation. Pericardium/Pleural: There is no pericardial effusion. MMode/2D Measurements IVSd: 0.78 cm LVIDd: 6.0 cm LVIDs: 4.0 cm LVPWd: 0.95 cm FS: 32.9 % Ao root diam: 2 .8 cm Ao root area: 6 .3 cm2 LA dimension: 4 .4 cm LVOT diam: 2.3 cm EDV(MOD-A4C): 1 53.4 ml ESV(MOD-A4C): 5 9.5 ml LVOT area: 4.3 cm2 EF(MOD-A4C): 61 .2 % EDV(MOD-A2C): 139.3 ml ESV(MOD-A2C): 52.5 ml EDV(MOD-bp): 14 4.5 ml EF(MOD-A2C): 62.3 % ESV(MOD-bp): 59 .2 ml EF(MOD-bp): 59. 0 % EDV (MOD-bp) Index: 87.5 ml/m2 ESV (MOD-bp) In dex: 35.9 ml/m2 TAPSE (>1.6): 3.2 cm Doppler Measurements MV E max guzman: 78.5 cm/sec MV V2 max: 93.2 cm/sec MV A max guzman: 64.1 cm/sec MV max P.5 mmHg MV E/A: 1.2 MV V2 mean: 57.6 cm/sec MV mean P.5 mmHg MV V2 VTI: 27.5 cm MVA(VTI): 3.0 cm2 MV P1/2t max guzman: 79.5 cm/sec Ao V2 max: 172.6 cm/sec MV P1/2t: 54.6 msec Ao max P.9 mmHg Ao V2 mean: 104.0 cm/sec MVA(P1/2t): 4.0 cm2 Ao mean P.1 mmHg MV dec slope: 426.2 cm/sec2 Ao V2 VTI: 33.7 cm CINDI(I,D): 2.4 cm2 CINDI(V,D): 2.1 cm2 LV V1 max P.9 mmHg SV(LVOT): 82.1 ml LV V1 mean P.2 mmHg LV V1 max: 85.2 cm/sec LV V1 mean: 50.7 cm/sec LV V1 VTI: 19.2 cm CINDI Index (I,D): 1.5 CINDI Index (V,D): 1.3 Dimensionless Index: 0.49 Performing Organization Address City/State/ZIP Code Phon e Number [facility] (ABNORMAL) Troponin T (In-House) (08/22/2020 12:03 AM CDT)Only the most recent of3 resultswithin the time period is included. Pathologist Sig nature Troponin T 42 (H) <=18 ng/L [facility] Comment: [facility] < 19 ng/L Suggest retest at 3 to 6 hours later to rule out myocardial infarction >= 19 to <=52 ng/L Possible myocardial injury. Suggest retest at 3 hours. - a change of < 20 ng/L, retest at 6 hours - a change of >= 20 ng/L, suggestive of myocardial infarction > 52 ng/L Suggestive of myocardial infarction Critical value will be repor esteban when cTnT is > 52 ng/L and only reported for the first in a series. Hemolyzed specimens with Hem olysis Index >100 (100 mg/dl or moderate hemolysis) may cause interferences and falsely low results. Specimen Blood Performing Organization Address City/State/ZIP Code Phon e Number [facility] CANCER Unless otherwise noted, [place] [address] CENTER all lab tests performed by: Division of Pathology and Laboratory Medicine [address] [facility] X-ray Chest 1 View Portable (08/21/2020 1:10 PM CDT) Specimen Impressions [id number] - 08/21/2020 1:46 PM CDT Mild opacity in the left midlung field is improved in appearance. It may represent residual or recurrent infectious/inflammatory process or scar. Follow- up chest radiography can be obtained for further evaluation. Narrative [id number] - 08/21/2020 1:46 PM CDT FULL RESULT: Examination: XR CHEST 1 VW PORTABLE, 08/12 1:10 PM Clinical History: Prostate cancer Indication: Sepsis Comparison: Chest CT July 15, 2020, chest radiography April 21, 2020 Technique: Single portable anteroposteri or radiograph of the chest. Findings: Mild opacity is visualized in the left m id lung field and is improved as compared to April 21, 2020. It may represent a residual or recurrent infectious/inflammatory process or scar. No effusions are visualized. Heart size is within normal limits. Aorta is torturous and demonstrates atherosclerotic calcification. Procedure Note Nupur Hopkins MD - 08/21/2020 FULL RESULT: Examination: XR CHEST 1 VW PORTABLE, 08/12 1:10 PM Clinical History: Prostate cancer Indication: Sepsis Comparison: Chest CT July 15, 2020, chest radiography April 21, 2020 Technique: Single portable anteroposteri or radiograph of the chest. Findings: Mild opacity is visualized in the left m id lung field and is improved as compared to April 21, 2020. It may represent a residual or recurrent infectious/inflammatory process or scar. No effusions are visualized. Heart size is within normal limits. Aort a is torturous and demonstrates atherosclerotic calcification. IMPRESSION: Mild opacity in the left midlung field i s improved in appearance. It may represent residual or recurrent infectious/inflammatory process or scar. Follow- up chest radiography can be obtained for further evaluation. Performing Organization Address City/State/ZIP Code Phon e Number [id number] Respiratory Viral Panel + COVID-19, Nasopharyngeal Swab (08/21/2020 1:05 PM CDT) Adenovirus Not Detected Not Detected [facility] Coronavirus 229E Not Detected Not Detected [facility] Coronavirus HKU1 Not Detected Not Detected [facility] Coronavirus NL63 Not Detected Not Detected [facility] Coronavirus OC43 Not Detected Not Detected [facility] COVID19 (SARS-CoV-2) Not Detected Not Detected [facility] Human Metapneumovirus Not Detected Not Detected [facility] Human Not Detected Not Detected [facility] Rhinovirus/Enterovirus [facility] Influenza A Not Detected Not Detected [facility] Influenza A H1 Not Detected Not Detected [facility] Influenza A H1 2009 Not Detected Not Detected [facility] Influenza A H3 Not Detected Not Detected [facility] Influenza B Not Detected Not Detected [facility] Parainfluenza 1 Not Detected Not Detected [facility] Parainfluenza 2 Not Detected Not Detected [facility] Parainfluenza 3 Not Detected Not Detected [facility] Parainfluenza 4 Not Detected Not Detected [facility] Respiratory Syncytial Not Detected Not Detected [facility] Virus [facility] Bordetella Not Detected Not Detected [facility] Parapertussis [facility] Bordetella pertussis Not Detected Not Detected [facility] Chlamydiophila Not Detected Not Detected [facility] pneumoniae [facility] Mycoplasma pneumoniae Not Detected Not Detected [facility] Specimen Nasopharyngeal Swab Narrative [facility] - 1 2:12 PM CDT The BioFire RP2.1 is a real-time, nested multiplexed polymerase chain reaction test designed to simul taneously identify nucleic acids from 22 different viruses and bacteria associated with respiratory tract infection, including SARS-CoV-2, from a single nasopharyngeal swab (PRODUCT DEVELOPMENT ASSISTANT) specimen. Spec ifically, the SARS-CoV-2 primers contained in the BioFire RP2.1 are designed to detect RNA from the SARS-CoV-2 in nasopharyngeal swabs in transport media from patients who are suspected of COVID-19 by their healthcare provider. Results must be int erpreted within the context of all relevant clinical and laboratory findings and should not form the sole basis for a diagnosis or treatment decision. This assay has been approved by the FDA for use only under Emergency Use Authorization (EUA) in laboratories that have been CLIA-certified to perform moderate-complexity and high-complexity tests. The M icrobiology Laboratory at [facility] ([place] CLIA Accreditation #[id number] and CAP Accreditation #[id number], verified the performance characteristics of this assay. Microbiology Laboratory at [facility] performs the assay using the [employer] System. Internal control s are used to monitor all stages of the test proces s. Performing Organization Address City/State/[facility] Code Phon e Number [facility] CANCER Unless otherwise noted, [place] [address] REFORM all lab tests performed by: Division of Pathology and Laboratory Medicine [address] [facility] POC VBG+Lac (08/21/2020 12:47 PM CDT)Only the most recent of2 resultswithin the time period is included. POC VB pH 7.40 7.31 - 7.41 POC TELCOR POC VB pCO2 46 41 - 51 mmHg POC TELCOR POC VB pO2 43 mmHg POC TELCOR POC VB TCO2 29 24 - 29 mEq/L POC TELCOR POC VB Bicarb 28 23 - 28 POC TELCOR mmol/L POC VB Base Ex 3 -2 - 3 mmol/L POC TELCOR POC VB O2 Sat 78 % POC TELCOR POC VB LAC 1.1 0.9 - 1.7 POC TELCOR Comment: mmol/L Method description: The i-ST AT is an analyzer used for in vitro quantification of various analytes in whole blood. The device uses a single disposable cartridge which contains microfabricated sensors, a calibration solution, fluidics system, and a waste chamber. Each test cartridge contains chemically sensitive biosensors on a silicon chip that are configured to perform specific tests. The microfabricated sensors measure analyte concentration by an electrochemical assay. POC Sample Type Venous POC TELCOR POC Clean Dev Yes POC TELCOR [facility] TELCOR [facility], [address] [place], [place] [address]; Front Desk Representative: Kelsea Stafford MD Specimen Blood Performing Organization Address City/State/ZIP Code Phon e Number POC TELCOR (ABNORMAL) POC Chem 8 without Hemoglobin and Hematocrit (08/21/2020 12:32 PM CDT) POC NA 140 138 - 146 POC TELCOR mEq/L POC K 3.6 3.5 - 4.9 POC TELCOR Comment: mEq/L Method description: The i-ST AT is an analyzer used for in vitro quantification of various analytes in whole blood. The device uses a single disposable cartridge which contains microfabricated sensors, a calibration solution, fluidics system, and a waste chamber. Each test cartridge contains chemically sensitive biosensors on a silicon chip that are configured to perform specific tests. The microfabricated sensors measure analyte concentration by an electrochemical assay. POC CL 99 98 - 109 POC TELCOR mEq/L POC VTCO2 26 24 - 29 mEq/L POC TELCOR POC Anion Gap 19 10 - 20 POC TELCOR mmol/L POC BUN 14 8 - 26 mg/dL POC TELCOR POC Crea 0.9 0.6 - 1.3 POC TELCOR Comment: mg/dL Medications, especially hydr oxyurea or supplements, such as ascorbate, can interfere with test results causing a falsely and significantly higher result than expected. If a problem is suspected with a patient's result, a sample should be sent to the laboratory for confirmatory testing. Method description: The i-ST AT is an analyzer used for in vitro quantification of various analytes in whole blood. The device uses a single disposable cartridge which contains microfabricated sensors, a calibration solution, fluidics system, and a waste chamber. Each test cartridge contains chemically sensitive biosensors on a silicon chip that are configured to perform specific tests. The microfabricated sensors measure analyte concentration by an electrochemical assay. POC eGFR-AA 94 >=60 POC TELCOR Comment: mL/min/1.73 Normal eGFR >= 60 mL/min/1.73 m2 m2 The eGFR is calculated using the CKD-EPI equation. The eGFR declines with age. eGFR <60 mL/min/1.73 m2 is considered as "decreased" This equation should only be used for patients 18 and older. According to the National [facility]'s Kidney Disease Outcome Quality Initiative (KDOQI) classification and 2012 Kidney Disease Improving Global Outcomes (KDIGO) Clinical Practice Guideline, the stage of CKD should be categorized based on estimated GFR. Stage Description GFR mL/min/1.73 m2 1 Kidney damage with normal or high GFR >=90 2 Kidney damage with mild decrease in GFR 60-89 3a Mild to moderate decrease in GFR 45-59 3b Moderate to severe decrease in GFR 30-44 4 Severe decrease in GFR 15-29 5 Kidney failure <15 (or dialysis) POC eGFR-DARIEN 82 >=60 POC TELCOR Comment: mL/min/1.73 Normal eGFR >= 60 mL/min/1.73 m2 m2 The eGFR is calculated using the CKD-EPI equation. The eGFR declines with age. eGFR <60 mL/min/1.73 m2 is considered as "decreased" This equation should only be used for patients 18 and older. According to the National [facility]'s Kidney Disease Outcome Quality Initiative (KDOQI) classification and 2012 Kidney Disease Improving Global Outcomes (KDIGO) Clinical Practice Guideline, the stage of CKD should be categorized based on estimated GFR. Stage Description GFR mL/min/1.73 m2 1 Kidney damage with normal or high GFR >=90 2 Kidney damage with mild decrease in GFR 60-89 3a Mild to moderate decrease in GFR 45-59 3b Moderate to severe decrease in GFR 30-44 4 Severe decrease in GFR 15-29 5 Kidney failure <15 (or dialysis) POC Glucose 115 (H) 70 - 99 mg/dL POC TELCOR POC Ion Ca 1.13 1.12 - 1.32 POC TELCOR mmol/L POC Sample Type Venous POC TELCOR POC Clean Dev Yes POC TELCOR [facility] POC TELCOR [facility] [place] [facility], [address] [place] [address], [place] [address]; Front Desk Representative: Kelsea Stafford MD Specimen Blood Performing Organization Address City/State/ZIP Code Phon e Number POC TELCOR (ABNORMAL) Cardiac Panel (08/21/2020 12:27 PM CDT)Only the most recent of2 resultswithin the time period is included. CK 102 39 - 308 U/L [facility] CK MB 3.2 <=10.4 ng/mL [facility] Troponin T 26 (H) <=18 ng/L [facility] Comment: [facility] < 19 ng/L Suggest retest at 3 to 6 hours later to rule out myocardial infarction >= 19 to <=52 ng/L Possible myocardial injury. Suggest retest at 3 hours. - a change of < 20 ng/L, retest at 6 hours - a change of >= 20 ng/L, suggestive of myocardial infarction > 52 ng/L Suggestive of myocardial infarction Critical value will be repor esteban when cTnT is > 52 ng/L and only reported for the first in a series. Hemolyzed specimens with Hem olysis Index >100 (100 mg/dl or moderate hemolysis) may cause interferences and falsely low results. Specimen Blood Performing Organization Address City/[facility] Phon e Number [facility] Unless otherwise noted, [address] all lab tests performed by: Division of Pathology and Laboratory Medicine [facility] [employer] Limitedd Blood Culture- Peripheral (08/21/2020 12:27 PM CDT)Only the most recent of2 resultswithin the time period is included. Pathologist [facility] Final Report No growth [facility] Path Review - Immunity and antibiotic use may render culture negative. Ongoing infection requires repeat culture. [facility] Bottle/Isolator The results have been review ed and electronically signed by Pathologist: [facility] OTONIEL BURNETT MD #[id number] Specimen Blood - Venipuncture Narrative [facility] - 1 5:41 PM CDT Short draw may invalidate quantitative blood culture results. 08/21/2020 1:52:33 PM CDT Performing Organization Address City/[facility] Phon e Number [facility] Unless otherwise noted, [address] all lab tests performed by: Division of Pathology and Laboratory Medicine [address] [employer] Fibrinogen (08/21/2020 12:27 PM CDT) Pathologist Sig nature Fibrinogen 324 214 - 503 mg/dL [facility] [address] Specimen Blood Performing Organization Address City/State/ZIP Code Phon e Number [facility] CANCER Unless otherwise noted, [address] all lab tests performed by: Division of Pathology and Laboratory Medicine [facility] [employer] D Dimer (08/21/2020 12:27 PM CDT)Only the most recent of2 resultswithin the time period is included. D-Dimer 0.30 0.10 - 0.50 [facility] Comment: mcg/ml [facility]U [facility] The cut off value for exclusion of venous thromboembol ism is <0.51 mcg/mL FEUs (fibrinogen equivalent units). Specimen Blood Performing Organization Address [facility] Phon e Number [facility] CANCER Unless otherwise noted, [address] all lab tests performed by: Division of Pathology and Laboratory Medicine [facility] [place] CRP (C-reactive protein) (08/21/2020 12:27 PM CDT) Pathologist Sig nature CRP 0.53 mg/L [facility] Comment: [facility] Reference ranges for HS CRP assay are as follows: Reference ranges when used to assess cardiac risk: <1.00 mg/L Low cardiovascular risk 1.00-3.00 mg/L Average cardiovascular risk >3.00 mg/L High cardiovascular risk. Reference ranges when used to assess inflammatory resp onses: Less than or equal to 10.00 mg/L. Specimen Blood Performing Organization Address City/[facility]/ZIP [facility] Phon e Number [facility] CANCER Unless otherwise noted, [address] all lab tests performed by: Division of Pathology and Laboratory Medicine [facility] [place] LDH (08/21/2020 12:27 PM CDT)Only the most recent of4 resultswithin the time period is included. LDH 176Comment: Results 135 - 225 U/L [facility] greater than 1651 U/L [facility] may not be reliable due to matrix effect with extended dilution as it exceeds the data entry machine operator s recommended limit. Caution should be exercised when interpreting such values and done in conjunction with clinical context. Specimen Blood Performing Organization Address City/[facility]/ZIP Code Phon e Number [facility] CANCER Unless otherwise noted, [address] all lab tests performed by: Division of Pathology and Laboratory Medicine [facility] IR Transperineal Placement Biodegradable Material (07/29/2020 2:48 PM CDT) Specimen Narrative Chapito Lopez MD - 07/30/2020 9:03 AM CDT Date of Procedure: 07/29/20 Attending Physician: Chapito Lopez MD Muck Operator: Matt Aaron MD Pre-procedure Diagnosis: Prostate Cancer Post-procedure Diagnosis: Unchanged Indication: Prostate cancer, anticipated prostate radiation Title of Procedure: Percutaneous Image-guided SpaceOAR impla ntation and prostate fiducial marker placement. Operative Findings: Successful percutaneous image-guided Spa ceOAR implantation and prostrate fiducial marker placement. Consent: The procedure, risks, indicatio ns and alternatives were explained. All questions were answered and informed consent was obtained. I have reviewed the history and physical dictated by the mid-level practioner / fellow. Sedation/Anesthesia: Anesthesia provided by Anesthesia Department. Fiducial type: gold Fiducial number: 3 Fiducial location: right base, right ape x, left mid Procedure in Detail: A timeout was performed prior to the sta rt of the procedure and the correct patient, procedure, presence of consent, site, and side were confirmed with all members of the team. The patient was posititioned in dorsal l ithotomy and prepped and draped in the usual sterile fashion. A sidefirin g transrectal probe was placed. Under ultrasound guidance, fiducials wer e placed within the prostate. Under ultrasound guidance, an 18g needle was guided into the fat plane between the rectum and the prostate at t he mid gland level. Approximately 10mL sterile saline was injected to ensu re appropriate needle posititioning. Aspiration was performe d, confirming no blood products. 10 mL of the SpaceOAR hydrogel was prepa red and instilled according to vendor specifications. The needle was removed. Additional Comments: None Estimated Blood Loss: Minimal Specimens Removed: No Immediate Complications: None Disposition: PACU Plan: Follow-up with radiation oncology. IR PLACEMENT OF INTERSTITIAL DEVICE FOR PROSTATE XRT (07/29/2020 2:48 PM CDT) Specimen Narrative Chapito Lopez MD - 07/30/2020 9:03 AM CDT Date of Procedure: 07/29/20 Attending Physician: Chapito Lopez MD Muck Operator: Matt Aaron MD Pre-procedure Diagnosis: Prostate Cancer Post-procedure Diagnosis: Unchanged Indication: Prostate cancer, anticipated prostate radiation Title of Procedure: Percutaneous Image-guided SpaceOAR impla ntation and prostate fiducial marker placement. Operative Findings: Successful percutaneous image-guided Spa ceOAR implantation and prostrate fiducial marker placement. Consent: The procedure, risks, indicatio ns and alternatives were explained. All questions were answered and informed consent was obtained. I have reviewed the history and physical dictated by the mid-level practioner / fellow. Sedation/Anesthesia: Anesthesia provided by Anesthesia Department. Fiducial type: gold Fiducial number: 3 Fiducial location: right base, right ape x, left mid Procedure in Detail: A timeout was performed prior to the sta rt of the procedure and the correct patient, procedure, presence of consent, site, and side were confirmed with all members of the team. The patient was posititioned in dorsal l ithotomy and prepped and draped in the usual sterile fashion. A sidefirin g transrectal probe was placed. Under ultrasound guidance, fiducials wer e placed within the prostate. Under ultrasound guidance, an 18g needle was guided into the fat plane between the rectum and the prostate at t he mid gland level. Approximately 10mL sterile saline was injected to ensu re appropriate needle posititioning. Aspiration was performe d, confirming no blood products. 10 mL of the SpaceOAR hydrogel was prepa red and instilled according to vendor specifications. The needle was removed. Additional Comments: None Estimated Blood Loss: Minimal Specimens Removed: No Immediate Complications: None Disposition: PACU Plan: Follow-up with radiation oncology. Pathology Biopsy Interpretation (07/28/2020 12:29 PM CDT) Pathologist Sig nature Submitted Clinical Adenocarcinoma of [facility] History prostate [C61] Diagnosis A: Colon, ascending, 3mm polyps x2, biopsy: [facility] Electronically signed Colonic mucosa with small lymphoid aggregates. by Aracely Rivera MD on 07/30/2020 at 4 :46 PM B: Colon, ascending, 10mm polyp, biopsy: Tubulovillous adenoma. Melanosis coli. C: Colon, transverse, 3mm polyps x2, biopsy: Fragments of tubular adenoma(s). Melanosis coli. D: Colon, descending, 3mm polyps x4, biopsy: Fragments of tubular adenoma(s). Fragments of hyperplastic polyp(s). Melanosis coli. E: Colon, sigmoid, 6mm polyp, biopsy: Hyperplastic polyp. Melanosis coli. F: Colon, rectosigmoid, 3-5mm polyps x6, biopsy: Fragments of hyperplastic polyp(s). Melanosis coli. Gross Description A: [facility] Colon, ascending, 3mm ascend ing colon polyps x 2: Consists of 2 graf soft tissue fragments measuring 0.4 cm each. Filtered, entirely submitted in A1. TERESITA B: Colon, ascending, 10mm ascen ding colon polyp: Consists of 2 graf-pink soft tissue fragments measuring 0.4 cm each, entirely submitted in B1. TERESITA C: Colon, transverse, 3mm trans verse colon polyps x 2 : Consists of 2 graf soft tissue fragments measuring 0.4 cm each. Filtered, entirely submitted in C1. TERESITA D: Colon, descending, 3mm desce nding colon polyps x 4: Consists of multiple graf soft tissue fragments ranging in size from 0.3-0.5 cm. Filtered, entirely submitted in D1. TERESITA E: Colon, sigmoid, 6mm sigmoid colon polyp: Consists of a single graf soft tissue fragment measuring 0.7 cm. Filtered, entirely submitted in E1. TERESITA F: Colon, rectosigmoid, 3-5mm rectal sigmoid colon polyps x 6: Consists of 4 pink soft tissue fragments ranging in size from 0.3-0.4 cm. Filtered, entirely submitted in F1. TERESITA Biomarker Block(s) N/A [facility] Disclaimer "Some tests reported [facility] here may have been developed and performance characteristics determined by [facility] Pathology and Laboratory Medicine. These tests have not been specifically cleared or approved by the U.S. Food and Drug Administration. If applicable, controls were reviewed and showed appropriate reactivity." Specimen Tissue - Colon, Ascending Tissue - Colon, Ascending Tissue - Colon, Transverse Tissue - Colon, Descending Tissue - Colon, Sigmoid Tissue - Colon, Rectosigmoid Performing Organization Address City/State/ZIP Code Phon e Number [facility] [place] [address] [address] [facility] ENDOSCOPY NOTE RESULTS (07/28/2020 11:24 AM CDT) Narrative This result has an attachment that is no t available. Procedure Note Tanesha Major MD - 11:24 AM CDT Patient Name: Jesse Serna Gender: Male Age: 79 Procedure Date No Time: 07/28/2020 Instrument Name: [id number] COLON - CF Proceduralist(s): TANESHA MAJOR MD Procedure Name: Colonoscopy Scope In: 12:24:25 PM Scope Out: 12:52:29 PM Scope Withdrawal Time 0 hours 24 minutes 42 seconds Total Procedure Duration Time 0 hours 28 minutes 4 seconds Patient Profile: This is a 79 y ear old male here for screening colonoscopy. Indications: Screening for colorectal malignant neoplasm Medications: Total IV Anest hesia (TIVA), CO2 Procedure Description: Pre-Anesthesia Assessment: - Prior to the procedure, a History and Physical was performed, and patient medications and allergies were reviewed. The patient's tolerance of previous anest hesia was also reviewed. The risks and benefits o f the procedure and the sedation options and ri sks were discussed with the patient. All questions were answered, and informed consent was obtained. Prior Anticoagulants: The patient has taken no antic oagulant or antiplatelet agents. ASA Grade Assessme nt: III - A patient with severe systemic disea se. After reviewing the risks and benefits, the patient was deemed in satisfactory condition to u ndergo the procedure. Informed conse nt was obtained. Throughout the procedure, the patient's blood pressure, pulse, and oxygen saturat ions were monitored continuously.The Olympus CF-HQ1 90L ([id number]) adult colonoscope was introduced thr ough the anus and advanced to the terminal ileum . The colonoscopy was performed without diffic ulty. The patient tolerated the procedure well . The quality of the bowel preparation wa s evaluated using the BBPS ([place] Bowel Preparat ion Scale) with scores of: Right Colon = 3 (ent nisha mucosa seen well with no residual staining, smal l fragments of stool or opaque liquid), Trans verse Colon = 3 (entire mucosa seen well with no r esidual staining, small fragments of stool or opaqu e liquid) and Left Colon = 3 (entire mucosa seen we ll with no residual staining, small fragments of s tool or opaque liquid). The total BBPS score equ als 9. The quality of the bowel preparation wa s excellent. The terminal ileum, ileocecal valv e, appendiceal orifice, and rectum were photograp hed. Findings: The perianal a nd digital rectal examinations were normal. The terminal i leum appeared normal. Two sessile po lyps were found in the ascending colon. The bulmaro yps were 3 mm in size. These polyps were removed w ith a jumbo cold forceps. Resection and retrieval were complete. A 10 mm polyp was found in the ascending colon. The polyp was sess ile. The polyp was removed with a cold snare. Re section and retrieval were complete. Two sessile po lyps were found in the transverse colon. The bulmaro yps were 3 mm in size. These polyps were removed w ith a jumbo cold forceps. Resection and retrieval were complete. Four sessile p olyps were found in the descending colon. The bulmaro yps were 3 mm in size. These polyps were removed w ith a jumbo cold forceps. Resection and retrieval were complete. A 6 mm polyp w as found in the sigmoid colon. The polyp was sess ile. The polyp was removed with a cold snare. Re section and retrieval were complete. Six hyperplast ic polyps were found in the recto-sigmoid colon. The polyps were 3 to 5 mm in size. These po lyps were removed with a jumbo cold forceps. Resec tion and retrieval were complete. The exam was o therwise without abnormality on direct and ret roflexion views. Complications: No immediate c omplications. Estimated Blood Loss: Estimated bloo d loss was minimal. Post Procedure Diagnosis: - The examined portion of the ileum was normal. - Two 3 mm bulmaro yps in the ascending colon, removed with a jumbo c old forceps. Resected and retrieved. - One 10 mm po lyp in the ascending colon, removed with a cold sn are. Resected and retrieved. - Two 3 mm bulmaro yps in the transverse colon, removed with a jumbo c old forceps. Resected and retrieved. - Four 3 mm po lyps in the descending colon, removed with a jumbo c old forceps. Resected and retrieved. - One 6 mm bulmaro yp in the sigmoid colon, removed with a cold snare. Resected and retrieved. - Six 3 to 5 m m polyps at the recto-sigmoid colon, removed with a jumbo cold forceps. Resected and retrieved. - The examinat ion was otherwise normal on direct and retroflexi on views. Recommendation: - Discharge pa tient to home. - Resume previ ous diet. - Continue pre sent medications. - Await pathol ogy results. - Repeat colon oscopy date to be determined after pending pathol ogy results are reviewed for surveillance. - Patient has a contact number available for emergencies. T he signs and symptoms of potential delayed compli cations were discussed with the patient. Retur n to normal activities tomorrow. Written discha rge instructions were provided to the patient. Attending Participation: I personally p erformed the entire procedure. TANESHA MAJOR MD 07/28/2020 4:29:53 PM This report has been signed electronical ly. Number of Addenda: 0 Glucose, Random (07/28/2020 10:51 AM CDT)Only the most recent of4 resultswithin the time period is included. Pathologist Sig nature Glucose Random 108 70 - 199 mg/dL [facility] Comment: Effective 10/08/15, the gluco se reference intervals have been updated based on [place] [employer] guidelines (Standards of Medical Care in Diabetes 2016. Diabetes Care 2016; 39: S13-S22) Fasting blood glucose: Normal: 70 99 mg/dL Impaired fasting glucose (in creased risk for diabetes or pre-diabetes): 100 125 mg/dL Diabetes mellitus: >/= 126 mg/dL Random blood glucose: Normal: 70 199 mg/dL Note: Random glucose >100 mg/dL is assoc iated with increased risk for diabetes Testing Performed at [facility] Nailhead Puncher [facility], [address] [place] [address], [address], [place] [address] Specimen Blood Performing Organization Address [facility] Phon e Number [address] [place] [address] [address] Anion Gap (07/28/2020 10:51 AM CDT) Pathologist Sig nature Anion Gap 10Comment: Testing 4 - 14 mEq/L [facility] Performed at [facility] N[employer]head [facility]cher [facility], [address] [place] [address], [address], [place] [address] Specimen Blood Performing Organization Address [facility] Phon e Number [address] [place] [address] [address] (ABNORMAL) Testosterone Level (07/28/2020 10:51 AM CDT)Only the most recent of4 resultswithin the time period is included. Testoster Tot 9 (L) 193 - 740 [facility] Comment: ng/dL CANCER CENTER Reference Ranges: Male: Age 20 - 49 249 - 836 Age >=50 193 - 740 Female: Age 20 - 49 8 - 48 Age >=50 3 - 41 Specimen Blood Performing Organization Address [facility] Phon e Number [facility] CANCER Unless otherwise noted, [place] [address] CENTER all lab tests performed by: Division of Pathology and Laboratory Medicine [address] [place] Sodium Level (07/28/2020 10:51 AM CDT) Pathologist Sig nature Sodium Lvl 142Comment: Testing 136 - 145 mEq/L [facility] Performed at [facility] Nailhead [facility], [address] [facility], [address], [place] [id number] Specimen Blood Performing Organization Address [facility] Phon e Number [facility] [address] [facility] [place] [address] [address] Prostate Specific Antigen (PSA) - Diagnostic (07/28/2020 10:51 AM CDT)Only the most recent of4 resultswithin the time period is included. PSA 1.1 0.0 - 4.0 ng/mL [facility] Comment: Results greater than 4519 ng /mL may not be reliable due to matrix effect with extended dilution as it exceeds the data entry machine operator's recommended limit. Caution should be exercised when interpreting such lor ues and done in conjunction with clinical context. Testing Performed at [facility] Lab Nailhead [facility], [address], [address], [place] [address] PSA Indication Diagnostic [facility] Specimen Blood Performing Organization Address [facility] Phon e Number [facility] [address] [facility] [place] [address] [address] Potassium (07/28/2020 10:51 AM CDT) Pathologist Sig nature Potassium Lvl 4.5Comment: Testing 3.5 - 5.1 mEq/L [facility] Performed at [facility] Lab Nailhead [facility], [address], [address], [place] [address] Specimen Blood Performing Organization Address City/[facility]/ZIP Code Phon e Number [facility] [address] [place] [address] [address] Chloride Level (07/28/2020 10:51 AM CDT) Pathologist Sig nature Chloride 106Comment: Testing 98 - 107 mEq/L [facility] Performed at [facility] Nailhead [facility], [address], [address], [place] [address] Specimen Blood Performing Organization Address City/[facility]/ZIP Code Phon e Number [facility] [address] [place] [address] [address] Carbon Dioxide Level (07/28/2020 10:51 AM CDT) Pathologist Sig nature CO2 26Comment: Testing 22 - 29 mEq/L [facility] Performed at [facility] Nailhead [facility], [address] [facility], [place] [address] Specimen Blood Performing Organization Address [facility] Phon e Number [facility] [address] [facility] [address] [address] COVID-19 (SARS-CoV-2) PCR-Asymptomatic [facility] (07/27/2020 10:34 AM CDT) COVID19 (SARS Not Detected Not Detected [facility] CoV-2) Result Comment: [facility] This test is a qualitative r everse-transcriptase polymerase chain reaction (RT- PCR) developed for the Vivian WALTER 6800 system and intended for the detection of SARS CoV-2 RNA in human nasopharyngeal specimens from patients who meet COVID- 19 clinical and/or epidemiological crite lou. This assay has been approved by the FDA for use only under Emergency Use Authorization (EUA) in laboratories that have been CLIA-certified to perform moderate-complexity and high-complexity tests. The performance characteristics of this assa y were verified by the Microbiology Laboratory at [facility], CLIA Accreditation #: [id number] and CAP Accreditation #: [id number]. Results must be interpreted within the context of all relevant clinical and laboratory findings and shou ld not form the sole basis for a diagnosis or treatment decision. "Presumptive Positive" resul ts are due to partial amplification of SARS-CoV-2 targets and indicates low amounts of virus present in the specimen at or near the limit of detection. Regardless, individuals with "Presumptive Positive" results should be managed per institutional gu idelines as individuals positive for SARS-CoV-2 virus, including use of appropriate infection control protocols. Internal controls are includ ed to assess for possible amplification inhibitors. If inhibition is detected, testing is repeated and if inhibition is confirmed the specimen is resulted as "Invalid". When an "Invalid" result occur, it is recommended to wait 3 days before submitting a new specimen for john ting if clinically indicated. COVID19 SARS FIRST RESPONDER Swab [facility] Source CANCER CENTER COVID19 SARS Pre-Out of OR [facility] Indication Procedure [facility] CENTER Specimen Nasopharyngeal Swab Performing Organization Address City/State/ZIP Code Phon e Number [facility] CANCER Unless otherwise noted, [place] [address] CENTER all lab tests performed by: Division of Pathology and Laboratory Medicine [facility] CT Chest Abdomen Pelvis with Contrast (07/15/2020 6:44 PM CDT) Specimen Impressions [id number] - 07/16/2020 10:43 AM CDT No metastatic disease in the chest, abdo men or pelvis Narrative [id number] - 07/16/2020 10:43 AM CDT FULL RESULT: Examination: CT CHEST ABDOMEN PELVIS W C ONTRAST, 07/15/2020 6:44 PM Clinical History: Adenocarcinoma of pros wilson Indication: Active immunotherapy, restag ing Comparison: 03/02/2020 and 04/09/2020 Technique: CT of the chest, abdomen, and pelvis was performed with intravenous contrast. Findings: Chest: No pleural effusion No mediastinal or hilar adenopathy. The lungs are emphysematous. Stable scarring is in both apices. No pu lmonary metastases. Abdomen and pelvis: The gallbladder has been removed. Mild compensatory biliary dilatation is stable No hepatic or splenic metastases. The pancreas and adrenals are normal The kidneys are functioning without hydr onephrosis. Both kidneys contain stable subcentimeter lesions which are too small to characterize but are likely cysts. The prostate measures 4.4 cm in transver se diameter down from 5.3 cm. The tumor is not well seen by CT No pelvic or retroperitoneal adenopathy. No bowel obstruction. No suspicious regional skeletal lesion. Procedure Note Fawn Thomas MD - 07/16/2020 FULL RESULT: Examination: CT CHEST ABDOMEN PELVIS W C ONTRAST, 07/15/2020 6:44 PM Clinical History: Adenocarcinoma of pros wilson Indication: Active immunotherapy, restag ing Comparison: 03/02/2020 and 04/09/2020 Technique: CT of the chest, abdomen, and pelvis was performed with intravenous contrast. Findings: Chest: No pleural effusion No mediastinal or hilar adenopathy. The lungs are emphysematous. Stable scarring is in both apices. No pu lmonary metastases. Abdomen and pelvis: The gallbladder has been removed. Mild compensatory biliary dilatation is stable No hepatic or splenic metastases. The pancreas and adrenals are normal The kidneys are functioning without hydr onephrosis. Both kidneys contain stable subcentimeter lesions which are too small to characterize but are likely cysts. The prostate measures 4.4 cm in transver se diameter down from 5.3 cm. The tumor is not well seen by CT No pelvic or retroperitoneal adenopathy. No bowel obstruction. No suspicious regional skeletal lesion. IMPRESSION: No metastatic disease in the chest, abdo men or pelvis Performing Organization Address City/State/ZIP Code Phon e Number [id number] NM Bone Scan Whole Body (07/15/2020 1:56 PM CDT) Specimen Impressions [id number] - 07/15/2020 2:02 PM CDT Likely degenerative sites of activity similar compared to February 2020 study. No new or suspicious progressive osseous lesions to suggest active osseous meta stases. Narrative [id number] - 07/15/2020 2:02 PM CDT FULL RESULT: Examination: Whole-Body Bone Scan, 021 1:56 PM Clinical History: 79-year-old male with prostate carcinoma. He has a persistent detectable PSA level. Indication: Restaging/evaluation for oss eous metastases Comparison: February 15, 2020 bone scan Technique: Following the intravenous adm inistration of 20.5 mCi of technetium- 99m MDP, anterior and posterior delayed whole body planar images were acquired. Findings: Nodular and linear sites of ac tivity are seen again in region of lower thoracic and lumbar spine, with scoliosis spine, without reported abnormality in these regions on February 2020 CT or on March 2020 MRI, most likely representi ng degenerative etiology. No new or suspicious progressive abnormal sites of activity within osseous structures. Bilateral kidneys are visualized with activity in the bladder. Procedure Note Dio Baker MD - 07/15/2020 FULL RESULT: Examination: Whole-Body Bone Scan, 021 1:56 PM Clinical History: 79-year-old male with prostate carcinoma. He has a persistent detectable PSA level. Indication: Restaging/evaluation for oss eous metastases Comparison: February 15, 2020 bone scan Technique: Following the intravenous adm inistration of 20.5 mCi of technetium- 99m MDP, anterior and posterior delayed whole body planar images were acquired. Findings: Nodular and linear sites of ac tivity are seen again in region of lower thoracic and lumbar spine, with scoliosis spine, without reported abnormality in these regions on February 2020 CT or on March 2020 MRI, most likely representing degenerative et iology. No new or suspicious progressive abnormal sites of activity within osseous structures. Bilateral kidneys are visualized with activity in the bladder. IMPRESSION: Likely degenerative sites of activity si milar compared to February 2020 study. No new or suspicious progressive osseous lesions to suggest active osseous metastases. Performing Organization Address [facility] Phon e Number [id number] Vitamin D 25OH (07/15/2020 11:27 AM CDT)Only the most recent of2 resultswithin the time period is included. Vitamin D 25 OH 56 30 - 100 ng/mL [facility] Comment: CANCER CENTER Reference Range: Deficiency: <10 ng/mL Insufficiency: 10-29 ng/mL Sufficiency: 30-100 ng/mL Potential toxicity: >100 ng/mL Specimen Blood Performing Organization Address [facility] Phon e Number [facility] CANCER Unless otherwise noted, [place] [address] CENTER all lab tests performed by: Division of Pathology and Laboratory Medicine [address] [place] [address] CEA Ag (05/16/2020 6:34 AM SVP CHIEF MARKETING OFFICER) Pathologist Sig nature CEA 2.6 <=3.8 ng/mL [facility] Comment: Reference Ranges: Smoker 0.0 - 5.5 Testing Performed at [facility] Lab [address]ail[address], [address] [facility], [address], [place] [address] Specimen Blood Performing Organization Address [facility] Phon e Number [facility] [address] [facility] [address] [address] Soft Tissue Neck with Contrast (04/22/2020 12:43 AM SVP CHIEF MARKETING OFFICER) Specimen Impressions [id number] - 04/22/2020 8:21 AM SVP CHIEF MARKETING OFFICER 1. No acute abnormality within the nec k. 2. Biapical paraseptal and centrilobul ar emphysema with scarring. I personally reviewed these image(s) helena choudhury with the resident's/fellow's interpretations, certify that if a procedure was performed I was physically present, and agree with the final report. Narrative [id number] - 04/22/2020 8:21 AM SVP CHIE[employer] MARKETING OFFICER FULL RESULT: EXAMINATION: CT SOFT TISSUE NECK W CONTR AST on 04/22/2020 12:43 AM COMPARISON: None available HISTORY: Prostate cancer. Patient presen ts with difficulty swallowing saliva. Reports no difficulty swallowing liquids or solids, tolerating oral intake. INDICATION: No neck pain TECHNIQUE: CT scan of the head and neck was performed with IV contrast as per departmental protocol. FINDINGS: Visualized brain and orbits are unremark able. Within limits of streak artifact from de ntal fillings, the oral cavity and adjacent oropharynx demonstrates no acute abnormalities. The patient is edentulous. The major salivary glands appear normal. The thyroid gland demonstrates homogenou s enhancement. Review of the visualized aspect of the u pper lungs, reveal moderate paraseptal and centrilobular emphysematous changes, with scarring. Procedure Note Alexander Ching MD - 04/22/2020 FULL RESULT: EXAMINATION: CT SOFT TISSUE NECK W CONTR AST on 04/22/2020 12:43 AM COMPARISON: None available HISTORY: Prostate cancer. Patient presen ts with difficulty swallowing saliva. Reports no difficulty swallowing liquids or solids, tolerating oral intake. INDICATION: No neck pain TECHNIQUE: CT scan of the head and neck was performed with IV contrast as per departmental protocol. FINDINGS: Visualized brain and orbits are unremark able. Within limits of streak artifact from de ntal fillings, the oral cavity and adjacent oropharynx demonstrates no acute abnormalities. The patient is edentulous. The major salivary glands appear normal. The thyroid gland demonstrates homogenou s enhancement. Review of the visualized aspect of the u pper lungs, reveal moderate paraseptal and centrilobular emphysematous changes, with scarring. IMPRESSION: 1. No acute abnormality within the neck . 2. Biapical paraseptal and centrilobula r emphysema with scarring. I personally reviewed these image(s) helena ng with the resident's/fellow's interpretations, certify that if a procedure was performed I was physically present, and agree with the final report. Performing Organization Address City/State/ZIP Code Phon e Number [id number] X-ray Chest 1 View (04/21/2020 11:28 PM SVP CHIEF MARKETING OFFICER) Specimen Impressions [id number] - 04/22/2020 7:03 AM SVP CHIEF MARKETING OFFICER No acute abnormality. I personally reviewed these image(s) helena ng with the resident's/fellow's interpretations, certify that if a procedure was performed I was physically present, and agree with the final report. Narrative [id number] - 04/22/2020 7:03 AM SVP CHIEF MARKETING OFFICER FULL RESULT: Examination: XR CHEST 1 VW, 04/21/2020 11: 28 PM Clinical History: 79-year-old man with h istory of prostate cancer, presenting with difficulty swallowing Indication: Other:, Chest pain/Shortness of Breath Comparison: Chest radiograph 03/02/2020 Technique: Anteroposterior radiograph of the chest. Findings: Residual postinflammatory appearance in the lungs. There is no pleural effusion or pneumothorax. There is no mediastinal or hilar adenopathy. Atherosclerotic calcifications are identified at the aortic arch. Cardiac silhouette is normal. Diff use bony demineralization is redemonstrated. Procedure Note Tony Rome Jr., MD - 04/22/2020 FULL RESULT: Examination: XR CHEST 1 VW, 04/21/2020 11: 28 PM Clinical History: 79-year-old man with h istory of prostate cancer, presenting with difficulty swallowing Indication: Other:, Chest pain/Shortness of Breath Comparison: Chest radiograph 03/02/2020 Technique: Anteroposterior radiograph of the chest. Findings: Residual postinflammatory appearance in the lungs. There is no pleural effusion or pneumothorax. There is no mediastinal or hilar adenopathy. Atherosclerotic calcifications are identified at the aortic arch. Cardiac silhouette is normal. Diffuse bony demin eralization is redemonstrated. IMPRESSION: No acute abnormality. I personally reviewed these image(s) helena ng with the resident's/fellow's interpretations, certify that if a procedure was performed I was physically present, and agree with the final report. Performing Organization Address [facility] Code Phon e Number [id number] Procalcitonin (PCT) (04/21/2020 10:16 PM SVP CHIEF MARKETING OFFICER) Procalcitonin 0.04 <=0.08 ng/mL [facility] Comment: CANCER CENTER Procalcitonin > 2.00 ng/mL: Procalcitonin levels above 2.00 ng/mL are highly suggestive of a high risk for systematic bacterial infection/ severe sepsis and/or septic shock. Procalcitonin < 0.50 ng/mL: Procalcitonin levels below 0.50 ng/mL are at low risk for progression to severe sepsis and/ or septic shock. Procalcitonin (ProCT) betwee n 0.15 and 2.0 ng/mL do not exclude infection, because localized infections (without systemic signs) may be associated with such low levels. Results greater than 400 ng/ mL may not be reliable due to the matrix effect with extended dilution as it exceeds the data entry machine operator's recommended limit. Caution should be exercised when interpreting such values and done in conjunction with clinical context. Specimen Blood Performing Organization Address [facility] Phon e Number [facility] CANCER Unless otherwise noted, [address] all lab tests performed by: Division of Pathology and Laboratory Medicine [address] NT-Pro BNP (In-House) (04/21/2020 10:16 PM SVP CHIEF MARKETING OFFICER) Pathologist Sig nature NT ProBNP 220 <=450 pg/mL [facility] Specimen Blood Performing Organization Address [facility] Phon e Number [facility] CANCER Unless otherwise noted, [address] all lab tests performed by: Division of Pathology and Laboratory Medicine [address] Echocardiogram 2D Complete (04/09/2020 10:19 AM SVP CHIEF MARKETING OFFICER) Specimen Narrative ISCV - 04/09/2020 2:49 PM SVP CHIEF MARKETING OFFICER Echocardiographic Report Interpretation Summary A two-dimensional transthoracic echocard iogram with M-mode and Doppler was performed. The study was technically adequate. There is no comparison study available. Normal left ventricular size and systoli c function. LV ejection fraction calculated using th e bi-plane method of disks is 60-65%. The right ventricle is normal in size an d function. The left atrium is moderately dilated. Unable to estimate RVSP due to lack of T R visualization. There is no pericardial effusion. Left Ventricle: Normal left ventricular size and systoli c function. LV ejection fraction calculated using the bi-plane method of disks is 60-65%. I WMSI = 1.00 % Normal = 1 00 Segments Size X - Cannot 2 - 1-2 small Interpret 1 - Normal Hypokine tic 3 - Akinetic 4 - Dyskinetic3- 5 moderate 5 - Aneurysmal 6-14 large 15-16 diffuse Diastology: Unable to evaluate due to rhythm. Right Ventricle: The right ventricle is normal in size an d function. Atria: The left atrium is moderately dilated. Mitral Valve: The mitral valve is normal. There is tra ce mitral regurgitation. Tricuspid Valve: The tricuspid valve is not well visualiz ed, but is grossly normal. There is trace tricuspid regurgitation. Unable to estimate RVSP due to lack of TR visualization. Aortic Valve: The aortic valve is trileaflet. The aort ic valve opens well. Pulmonic Valve: The pulmonic valve is not well visualize d. Great Vessels: The aortic root is normal size. The infe rior vena cava demonstrates normal size and normal respiratory variation. Pericardium/Pleural: There is no pericardial effusion. MMode/2D Measurements IVSd: 1.1 cm LVIDd: 5.2 cm LVIDs: 2.7 cm LVPWd: 1.1 cm FS: 47.2 % LA dimension: 4.4 cm LVOT diam: 2.2 cm EDV(MOD-A4C): 126.4 ml LVOT area: 3.9 cm2 ESV(MOD-A4C): 48.1 ml EF(MOD-A4C): 61.9 % EDV(MOD-A2C): 105.5 ml ESV(MOD-A2C): 43.3 ml EDV(MOD-bp): 122.0 ml EF(MOD-A2C): 59.0 % ESV(MOD-bp): 47.9 ml EF(MOD-bp): 60.7 % LAV(MOD-A2C): 77.8 ml EDV (MOD-bp) Index: 71.3 ml/m2 LAV(MOD-A4C): 54.9 ml LAV(MOD-bp): 66.6 ml LAV(MOD-bp) Indexed: 38.9 ml/m2 TAPSE (>1.6): 2.7 cm ESV (MOD-bp) Index: 28.0 ml/m2 Doppler Measurements MV E max guzman: 44.2 cm/sec MV V2 max: 96.3 cm/sec MV A max guzman: 61.5 cm/sec MV max P.7 mmHg MV E/A: 0.72 MV V2 mean: 46.1 cm/sec MV mean P.00 mmHg MV V2 VTI: 23.7 cm MVA(VTI): 3.4 cm2 Ao V2 max: 145.9 cm/sec LV V1 max P.1 mmHg Ao max P.5 mmHg LV V1 mean P.9 mmHg Ao V2 mean: 90.8 cm/sec LV V1 max: 100.8 cm/sec Ao mean P.8 mmHg LV V1 mean: 64.7 cm/sec Ao V2 VTI: 30.7 cm LV V1 VTI: 20.7 cm CINDI(I,D): 2.6 cm2 CINDI(V,D): 2.7 cm2 SV(LVOT): 80.7 ml PA V2 max: 130.5 cm/sec PA max P.8 mmHg PA V2 mean: 88.2 cm/sec PA mean P.5 mmHg PA V2 VTI: 25.7 cm CINDI Index (I,D): 1.5 CINDI Index (V,D): 1.6 Dimensionless Index: 0.69 Procedure Note Glenn Silverio MD - 04/09/2020 Echocardiographic Report Interpretation Summary A two-dimensional transthoracic echocard iogram with M-mode and Doppler was performed. The study was technically adequate. There is no comparison study available. Normal left ventricular size and systoli c function. LV ejection fraction calculated using th e bi-plane method of disks is 60-65%. The right ventricle is normal in size an d function. The left atrium is moderately dilated. Unable to estimate RVSP due to lack of T R visualization. There is no pericardial effusion. Left Ventricle: Normal left ventricular size and systoli c function. LV ejection fraction calculated using the bi-plane method of disks is 60-65%. I WMSI = 1.00 % Normal = 100 Segments Size X - Cannot 2 - 1-2 small Interpret 1 - Normal Hypokinetic 3 - Akinetic 4 - Dyskinetic3-5 moderate 5 - Aneurysmal 6-14 large 15-16 diffuse Diastology: Unable to evaluate due to rhythm. Right Ventricle: The right ventricle is normal in size an d function. Atria: The left atrium is moderately dilated. Mitral Valve: The mitral valve is normal. There is tra ce mitral regurgitation. Tricuspid Valve: The tricuspid valve is not well visualiz ed, but is grossly normal. There is trace tricuspid regurgitation. Unable to estimate RVSP due to lack of TR visualization. Aortic Valve: The aortic valve is trileaflet. The aort ic valve opens well. Pulmonic Valve: The pulmonic valve is not well visualize d. Great Vessels: The aortic root is normal size. The infe rior vena cava demonstrates normal size and normal respiratory variation. Pericardium/Pleural: There is no pericardial effusion. MMode/2D Measurements IVSd: 1.1 cm LVIDd: 5.2 cm LVIDs: 2.7 cm LVPWd: 1.1 cm FS: 47.2 % LA dimensio n: 4.4 cm LVOT diam: 2.2 cm EDV(MOD-A4C ): 126.4 ml LVOT area: 3.9 cm2 ESV(MOD-A4C ): 48.1 ml EF(MOD-A4C) : 61.9 % EDV(MOD-A2C): 105.5 ml ESV(MOD-A2C): 43.3 ml EDV(MOD-bp) : 122.0 ml EF(MOD-A2C): 59.0 % ESV(MOD-bp) : 47.9 ml EF(MOD-bp): 60.7 % LAV(MOD-A2C): 77.8 ml EDV (MOD-bp ) Index: 71.3 ml/m2 LAV(MOD-A4C): 54.9 ml LAV(MOD-bp): 66.6 ml LAV(MOD-bp) Indexed: 38.9 ml/m2 TAPSE (>1.6 ): 2.7 cm ESV (MOD-bp) Index: 28.0 ml/m2 Doppler Measurements MV E max guzman: 44.2 cm/sec MV V2 max: 96.3 cm/sec MV A max guzman: 61.5 cm/sec MV max P.7 mmHg MV E/A: 0.72 MV V2 mean: 46.1 cm/sec MV mean P.00 mmHg MV V2 VTI: 23.7 cm MVA(VTI): 3.4 cm2 Ao V2 max: 145.9 cm/sec LV V1 max P.1 mmHg Ao max P.5 mmHg LV V1 mean P.9 mmHg Ao V2 mean: 90.8 cm/sec LV V1 max: 100.8 cm/sec Ao mean P.8 mmHg LV V1 mean: 64.7 cm/sec Ao V2 VTI: 30.7 cm LV V1 VTI: 20.7 cm CINDI(I,D): 2.6 cm2 CINDI(V,D): 2.7 cm2 SV(LVOT): 80.7 ml PA V2 max: 130.5 cm/sec PA max P.8 mmHg PA V2 mean: 88.2 cm/sec PA mean P.5 mmHg PA V2 VTI: 25.7 cm CINDI Index (I,D): 1.5 CINDI Index (V,D): 1.6 Dimensionless Index: 0.69 Performing Organization Address City/State/ZIP Code Phon e Number [id number] MRI Pelvis with and without Contrast - Prostate (04/09/2020 9:13 AM [employer]) Specimen Impressions [id number] - 04/09/2020 2:01 PM [employer] 1. Findings consistent with prostate can cer without neurovascular bundle involvement. 2. The lesion in the right seminal vesic le may represent hemorrhage versus metastasis. Narrative [id number] - 04/09/2020 2:01 PM [employer] FULL RESULT: Examination: MRI PELVIS W WO CONTRAST [place] on 04/09/2020 9:13 AM Comparison prostate MRI: None. Prior therapy: none PSA: 29.7 Kaleigh score: 4+5. Indication: Prostate cancer staging. Technique: Prostate MRI with endorectal coil acquired at 1.5T. 3 plane localizer, axial T1W FSPGR, and axial DWI of the pelvis was performed. With an endorectal coil, three plane T2WI, axial DWI wit h ADC reconstruction and DCE sequences w ere performed focused on the prostate. Motion artifact: Minimal Findings: Prostate measurement (3-plane): 5.3 x 3. 4 x 5.5 cm. Hemorrhage: Mild Benign prostatic hypertrophy: Moderate Dominant lesion measures 1.7 cm and is l ocated in the left peripheral zone at the level of the near base on: Image # 20, series 7. Location: 5 o'clock Moderate low T2 signal ADC signal is reduced. Suspicious focal enhance ment is seen. Qualitative suspicion of clinically significant disease: 5. Highly Likely. PI-RADS 5 Extra-prostatic extension (EPE): not fou nd directly. The tumor does abut the capsule for more than 1 cm leading to the possibility of EPE. Neurovascular bundle invasion (NVI): not found Seminal vesicle invasion (SVI): Possible . There is a dark signal on T2 weighted imaging in the right seminal vesicle on MARCE 11 of series 7. This is not seen on the T1-weighted sequence however may still represent hemorrhage instead of metastasis. No clear involvement of the bladder neck , distal sphincter, or rectum. Lymphadenopathy: not found Bone metastasis: not found Procedure Note Nate Shearer MD - 04/09/2020 FULL RESULT: Examination: MRI PELVIS W WO CONTRAST [place] on 04/09/2020 9:13 AM Comparison prostate MRI: None. Prior therapy: none PSA: 29.7 Kaleigh score: 4+5. Indication: Prostate cancer staging. Technique: Prostate MRI with endorectal coil acquired at 1.5T. 3 plane localizer, axial T1W FSPGR, and axial DWI of the pelvis was performed. With an endorectal coil, three plane T2WI, axial DWI with ADC reconstruction and DCE sequences were pe rformed focused on the prostate. Motion artifact: Minimal Findings: Prostate measurement (3-plane): 5.3 x 3. 4 x 5.5 cm. Hemorrhage: Mild Benign prostatic hypertrophy: Moderate Dominant lesion measures 1.7 cm and is l ocated in the left peripheral zone at the level of the near base on: Image # 20, series 7. Location: 5 o'clock Moderate low T2 signal ADC signal is reduced. Suspicious focal enhancement is seen. Qualitative suspicion of clin ically significant disease: 5. Highly Likely. PI-RADS 5 Extra-prostatic extension (EPE): not fou nd directly. The tumor does abut the capsule for more than 1 cm leading to the possibility of EPE. Neurovascular bundle invasion (NVI): not found Seminal vesicle invasion (SVI): Possible . There is a dark signal on T2 weighted imaging in the right seminal vesicle on MARCE 11 of series 7. This is not seen on the T1-weighted sequence however may still represent hemorrhage instead of metastasis. No clear involvement of the bladder neck , distal sphincter, or rectum. Lymphadenopathy: not found Bone metastasis: not found IMPRESSION: 1. Findings consistent with prostate can cer without neurovascular bundle involvement. 2. The lesion in the right seminal vesic le may represent hemorrhage versus metastasis. Performing Organization Address City/State/ZIP Code Phon e Number [id number] MRI CERVICAL THORACIC LUMBAR SPINE W WO CONTRAST (04/08/2020 6:04 PM [employer]) Specimen Impressions [id number] - 04/08/2020 6:24 PM [employer] 1. No spinal cord compression. 2. No metastatic disease to bone. 3. Cervical and lumbar spondylosis, de tailed above. Please correlate with specific features of severe pain being experienced by the patient. Narrative [id number] - 04/08/2020 6:24 PM [employer] FULL RESULT: Examination: MRI CERVICAL THORACIC LUMBA R SPINE W WO CONTRAST, 04/08/2020 6:04 PM. Clinical history: Prostate cancer. Indication: "rule out cord compression a nd extent of metastatic prostate cancer disease; severe pain." Comparison: CT chest from 03/02/2020, CT chest, abdomen, and pelvis from 02/19/2020, and bone scan from 02/15/2020. Technique: Multiplanar, multisequence ma gnetic resonance imaging of the cervical, thoracic, and lumbar spine was performed prior to and following intravenous administration of contrast. Findings: Alignment: 1. 25 presacral vertebrae, with supern umerary ribs at L1, and a lumbarized S1. 2. Maintained cervical and thoracic al ignment. 3. Degenerative grade 1 retrolisthesis of L2 on L3 and degenerative grade 1 anterolisthesis of L4 on L5. Vertebral fractures: None. Bones: No suspicious bone lesion. Spinal cord and neural elements: 1. Areas of chronic myelomalacia in th e cervical spine from C3-C5 related to long-standing spondylosis. 2. Otherwise normal signal characteris tics and morphology of the spinal cord. 3. Normal location of the conus medull ga at L1-L2. 4. No leptomeningeal disease. Visualized peripheral nerves: Unremarkab le. Spondylosis: 1. C3-C4: Diffuse disc bulge and ligam entum flavum thickening resulting in moderate spinal canal narrowing and chronic myelomalacia. Facet and uncovertebral joint osteophyte formation resulting in severe bilateral neural foraminal narrowing. 2. C4-C5: Diffuse disc bulge and ligam entum flavum thickening resulting in severe spinal canal narrowing. Facet and uncovertebral joint osteophyte formation resulting in severe bilateral neural forami nal narrowing. Inflammation associated w ith the right facet joint on series 20, image 11 3. C5-C6: Diffuse disc bulge and ligam entum flavum thickening resulting in moderate spinal canal narrowing and chronic myelomalacia. Facet and uncovertebral joint osteophyte formation resulting in severe bilateral neural foraminal narrowing. 4. T12-L1: Diffuse disc bulge and liga mentum flavum thickening resulting in moderate spinal canal narrowing. Foraminal disc and facet joint osteoarthritis resulting in severe right-sided neural forami nal narrowing. Inflammation associated w ith right facet joint osteoarthritis. 5. L1-L2: Severe disc space narrowing, more advanced on the right resulting in focal levoscoliosis at this level. Diffuse disc bulge eccentric to the left, together with ligamentum flavum thickening r esulting in severe left-sided lateral re cess narrowing. Foraminal disc and facet joint osteoarthritis resulting in moderate right-sided neural foraminal narrowing. 6. L2-L3: Diffuse disc bulge and ligam entum flavum thickening resulting in severe spinal canal narrowing. Facet joint osteoarthritis and foraminal disc resulting in severe left and mild right neural f oraminal narrowing. Degenerative grade 1 retrolisthesis on L2 on L3 7. L3-L4: Diffuse disc bulge and ligam entum flavum thickening resulting in mild spinal canal narrowing. Foraminal disc and facet joint osteoarthritis resulting in moderate left and mild right neural f oraminal narrowing. Inflammation associa esteban with the left facet joints. Modic type I changes on the left. 8. L4-L5: Diffuse disc bulge and ligam entum flavum thickening resulting in moderate spinal canal narrowing. Facet joint osteoarthritis and foraminal disc resulting in moderate bilateral neural foramin al narrowing. Degenerative grade 1 anter olisthesis of L4 on L5. 9. L5-S1: Diffuse disc bulge and ligam entum flavum thickening resulting in mild spinal canal narrowing. Foraminal disc and facet joint osteoarthritis resulting in mild bilateral neural foraminal narrowing. 10. S1-S2 (transitional level): No sig nificant spinal canal or neural foraminal narrowing. 11. Left sacroiliac joint: Osteoarthri tis with edema on the sacral side at the level of S2 and a chronic subchondral cyst on the right at the level of S3. A right T10 that was a good good run there Paraspinal soft tissues: 1. Unremarkable visualized portions of the posterior cranial fossa. 2. No cervical adenopathy. 3. No posterior mediastinal adenopathy . 4. No retroperitoneal adenopathy. 5. Bilateral renal cysts, partially vi sualized.. 6. No suspicious subcutaneous or intra muscular lesion. Procedure Note Krystin Craig MD PhD - 04/08/2020 FULL RESULT: Examination: MRI CERVICAL THORACIC LUMBA R SPINE W WO CONTRAST, 04/08/2020 6:04 PM. Clinical history: Prostate cancer. Indication: "rule out cord compression a nd extent of metastatic prostate cancer disease; severe pain." Comparison: CT chest from 03/02/2020, CT chest, abdomen, and pelvis from 02/19/2020, and bone scan from 02/15/2020. Technique: Multiplanar, multisequence ma gnetic resonance imaging of the cervical, thoracic, and lumbar spine was performed prior to and following intravenous administration of contrast. Findings: Alignment: 1. 25 presacral vertebrae, with supernu daya ribs at L1, and a lumbarized S1. 2. Maintained cervical and thoracic ali gnment. 3. Degenerative grade 1 retrolisthesis of L2 on L3 and degenerative grade 1 anterolisthesis of L4 on L5. Vertebral fractures: None. Bones: No suspicious bone lesion. Spinal cord and neural elements: 1. Areas of chronic myelomalacia in the cervical spine from C3-C5 related to long-standing spondylosis. 2. Otherwise normal signal characterist ics and morphology of the spinal cord. 3. Normal location of the conus medulla ris at L1-L2. 4. No leptomeningeal disease. Visualized peripheral nerves: Unremarkab le. Spondylosis: 1. C3-C4: Diffuse disc bulge and ligame ntum flavum thickening resulting in moderate spinal canal narrowing and chronic myelomalacia. Facet and uncovertebral joint osteophyte formation resulting in severe bilateral neural foraminal narrowing. 2. C4-C5: Diffuse disc bulge and ligame ntum flavum thickening resulting in severe spinal canal narrowing. Facet and uncovertebral joint osteophyte formation resulting in severe bilateral neural foraminal narrowing. Inflammation associated with the right f acet joint on series 20, image 11 3. C5-C6: Diffuse disc bulge and ligame ntum flavum thickening resulting in moderate spinal canal narrowing and chronic myelomalacia. Facet and uncovertebral joint osteophyte formation resulting in severe bilateral neural foraminal narrowing. 4. T12-L1: Diffuse disc bulge and ligam entum flavum thickening resulting in moderate spinal canal narrowing. Foraminal disc and facet joint osteoarthritis resulting in severe right-sided neural foraminal narrowing. Inflammation associated with right facet joint osteoarthritis. 5. L1-L2: Severe disc space narrowing, more advanced on the right resulting in focal levoscoliosis at this level. Diffuse disc bulge eccentric to the left, together with ligamentum flavum thickening resulting in severe left-sided lateral r ecess narrowing. Foraminal disc and facet joint osteoarthritis resulting in moderate right-sided neural foraminal narrowing. 6. L2-L3: Diffuse disc bulge and ligame ntum flavum thickening resulting in severe spinal canal narrowing. Facet joint osteoarthritis and foraminal disc resulting in severe left and mild right neural foraminal narrowing. Degenerative grade 1 retrolisthesis on L 2 on L3 7. L3-L4: Diffuse disc bulge and ligame ntum flavum thickening resulting in mild spinal canal narrowing. Foraminal disc and facet joint osteoarthritis resulting in moderate left and mild right neural foraminal narrowing. Inflammation associated with the left facet joints. Modic type I changes on the left. 8. L4-L5: Diffuse disc bulge and ligame ntum flavum thickening resulting in moderate spinal canal narrowing. Facet joint osteoarthritis and foraminal disc resulting in moderate bilateral neural foraminal narrowing. Degenerative grade 1 anterolisthesis of L4 on L5. 9. L5-S1: Diffuse disc bulge and ligame ntum flavum thickening resulting in mild spinal canal narrowing. Foraminal disc and facet joint osteoarthritis resulting in mild bilateral neural foraminal narrowing. 10. S1-S2 (transitional level): No sign ificant spinal canal or neural foraminal narrowing. 11. 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 A right T10 that was a good good run there Paraspinal soft tissues: 1. Unremarkable visualized portions of the posterior cranial fossa. 2. No cervical adenopathy. 3. No posterior mediastinal adenopathy. 4. No retroperitoneal adenopathy. 5. Bilateral renal cysts, partially vis ualized.. 6. No suspicious subcutaneous or intram uscular lesion. IMPRESSION: 1. No spinal cord compression. 2. No metastatic disease to bone. 3. Cervical and lumbar spondylosis, det peggy above. Please correlate with specific features of severe pain being experienced by the patient. Performing Organization Address City/State/ZIP Code Phon e Number [id number] after 03/20/2020 Advance Directives Code Status Date Activated Date Inactivated Comments Full Code 08/21/2020 11:52 PM 08/24/2020 5:55 PM Full Code 03/02/2020 8:29 PM 03/07/2020 11:09 PM Full Code 02/26/2020 9:33 PM 02/29/2020 8:36 PM Care Teams Well Dr[employer] Operator Relationship Specialty Start Date End Date Pako Lopez MD PCP - External Urology 10/11/19 [facility]: Referring [address] [place] [id number] Nick Delgado MD PCP - General Genitourinary Oncology 01/25/[address] [place] [id number] Margarita [facility], Consulting Physician Radiation Oncology 02/14/[address] [place] [id number]
--- OUTSIDE RECORDS SUMMARY | 2021-03-20 13:17 | XMS REPORT | Continuity of Care Document ---
:1940 Author Organization [facility] t Address [address] [place] [address] Care Team Providers Name Role Phone [phone] Primary Care Physician Unavailable Narciso BUSTAMANTEP Attending Clinician Jesu RPJeramy Attending Clinician Chayito JEFFERY Attending Clinician Otto BULLOCK M Attending Clinician Unavailable LUKASZ Attending Clinician Unavailable Lukasz ANDINO Attending Clinician Morena JEFFERY M Attending Clinician Carmen Ng RN Attending Clinician Ian OPEN HEARTH WORKER, S Attending Clinician Aleksandr JOHNSON Attending Clinician Keke FRIED Attending Clinician Unavailable DANNY Attending Clinician Unavailable Danny ANDINO Attending Clinician Sheila ANDINO Attending Clinician SHEILA Attending Clinician Unavailable TIMO Attending Clinician Unavailable Robert OPEN HEARTH WORKERVonnie Attending Clinician Lele PT, T. Attending Clinician Rui Hanson MD Attending Clinician Andreea Bean RN Attending Clinician Unavailable Lukasz ANDINO Attending Clinician Robert CANTOR Attending Clinician Jose CANTOR Attending Clinician Geovanny HECK Attending Clinician Jessica ANDINO Attending Clinician Jeramy Velez MD. Attending Clinician Se Watson Attending Clinician Milad Rachel MD Attending Clinician Keke Cam MD. Attending Clinician Jeovanny JOHNSON Attending Clinician Michael BULLOCK Attending Clinician Unavailable Natalie BULLOCK, Keke Attending Clinician Unavailable Jenny Raman Attending Clinician Davin ANDINO Attending Clinician Ignacia BARTON, P Attending Clinician Randy CANTOR Attending Clinician Attila ANDINO Attending Clinician Se Galloway RN Attending Clinician Vonnie García RN Attending Clinician Dashawn Massey DO Attending Clinician Tyron JEFFERY Attending Clinician Brett Yeager RN Attending Clinician Unavailable CHAYITO Attending Clinician Unavailable Travon Lopez MD Attending Clinician Se Silver Attending Clinician Se Bai RN Attending Clinician TRAVON LOPEZ Attending Clinician Unavailable Doctor Unassigned, Name Attending Clinician Unavailable Draw, Lab Attending Clinician Unavailable Problems Condition Condition Condition Status Onset Resolution Last Treating Co mments Source Name Details Category Date Date Treatment Clinician Date Atrial Atrial Disease Active Last fibrillati fibrillati 6-11 Assesscarmen Mir on on 00:00: t & Plan: n 00 Formattin g of this note might be different from the original. Patient had an episode of atrial fibrillat ion with a heart rate of 95 bpm on EKG 08 27 2020 when he presented status post fall. On exam patient is in a regular rate and rhythm. Most recent EKG shows sinus rhythm. Asymptoma tic for palpitati ons. Continue rhythm control on metoprolo l succinate 25 mg p.o. daily. CHADS-VAS c: 3 (HTN, age x 2) HAS-BLED: 1 (fall) with prior recommend ation for patient to be started on anticoagu lation. Was seen and emailed cardiolog y attending and primary team regarding starting patient on Eliquis 5 mg p.o. twice daily. 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 Blood pressure modestly controlle d in the clinicat 146/71. Continue managemen t with metoprolo l succinate 25 mg daily and enalapril 10 mg p.o. 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 00:00: n 00 Chest pain Chest pain Disease Resolve 2020-10-27 2020-10-27 MD sterling 6 00:00:00 16:30:30 Nathan o 00:00: n 00 Adjustment Adjustment Disease Resolve 2020-04-19 2020-04-19 disorder disorder d 2-05 00:00:00 13:53:04 Jaclyn vick with with 00:00: n anxiety anxiety 00 Acute Acute Disease Resolve 2019-032020-04-19 2020-04-19 hypoxemic hypoxemic d 2-23 00:00:00 13:52:28 Anderso respirator respirator 00:00: n y failure y failure 00 COVID-19 COVID-19 Disease Resolve 2019-032020-04-19 2020-04-19 viral viral d 2-16 00:00:00 13:52:31 Nathan o pneumonia pneumonia 00:00: n 00 Allergies, Adverse Reactions, Alerts Allergy Allergy Status Severity Reaction(s) Onset Inactive Treating Comm ents Source Name Type Date Date Clinician NO KNOWN Drug Active Univers ALLERGIE Class [facility] of [facility] Social History Social Habit Start Date Stop Date Quantity Comments Source History of tobacco Current smoker MD Valdivia use History SDDC MD Valdivia Alcohol Comment Exposure to Not sure [facility] of SARS-CoV-2 (event) [facility] Alcohol intake 2020-10-31 2020-10-31 Lifetime MD Adeola santacruz 00:00:00 00:00:00 non-drinker (finding) Cigarettes smoked 2020-02-13 2020-02-13 MD Bernard barnard current (pack per 00:00:00 00:00:00 day) - Reported Cigarette 2020-02-13 2020-02-13 MD Valdivia pack-years 00:00:00 00:00:00 Tobacco use and 2020-02-13 2020-02-13 Smokeless MD Evans on exposure 00:00:00 00:00:00 tobacco non-user History [facility] 2020-02-13 2020-02-13 1 MD Valdivia Alcohol Frequency 00:00:00 00:00:00 History [facility] 2020-02-13 2020-02-13 99 MD Valdivia Alcohol Std Drinks 00:00:00 00:00:00 History [facility] 2020-02-13 2020-02-13 1 MD Valdivia Alcohol Binge 00:00:00 00:00:00 Tobacco Comment 2020-02-13 2020-02-13 used to smoke; MD Jaclyn noel 00:00:00 00:00:00 quit 12 years ago Sex Assigned At [birth year] MD Evans on 00:00:00 00:00:00 Smoking Status Start Date Stop Date Source Unknown if ever smoked [facility] Former smoker 2019-10-11 00:00:00 2019-10-11 00:00:00 [facility] Medications Ordered Filled Start Stop Current Ordering Indication Dosage Frequency Signature Comments Components Source Medication Medication Date Date Medication? Clinician (SIG) Name Name apixaban Yes Paroxysmal 5mg Take 1 M D (Eliquis) 5 8-17 atrial tablet (5 A nderso mg tablet 00:00: fibrillatio mg) by n 00 n mouth every 12 (twelve) hours. ibuprofen Yes 200mg Take 200 MD (AdviL) 200 8-16 mg by Anderso mg tablet 15:46: mouth n 20 every 6 (six) hours as needed for mild pain. As needed for back pain cholecalcif Yes 2000U Take 2,000 MD gina, 8-16 Units by Anderso vitamin D3, 15:46: mouth n (VITAMIN 20 twice D3) 2,000 daily. units tab Patient tablet instructed to take twice a day leuprolide, Yes 30mg Inject 30 M D 4 month, 8-16 mg under Anderso (Eligard, 4 15:46: the skin n month,) 30 20 every 4 mg (four) injection months. Last dose 05/16/2020 acetaminoph Yes 500mg Take 500 M D en 8-16 mg by Anderso (TYLENOL) 15:46: mouth n 500 mg 20 every 6 tablet (six) hours as needed for mild pain. metoprolol Yes 25mg Take 1 MD succinate 8-16 tablet (25 Bernard rso (TOPROL XL) 00:00: mg) by n 25 mg 24 hr 00 mouth tablet daily. Hold dose if systolic blood pressure (top number) is less than 110 or heart rate less than 55. diphenoxyla Yes Diarrhea 1{tbl} Take 1 MD te-atropine 7-27 tablet by And erso (LomotiL) 00:00: mouth n 2.5 00 every 6 mg-0.025 mg (six) per tablet hours as needed for diarrhea. Not to exceed 8 tablets per day mirtazapine Yes Insomnia 7.5mg Take 1 MD (REMERON) 7-27 due to tablet Nathan o 7.5 mg 00:00: medical (7.5 mg) n tablet 00 condition by mouth at bedtime. tamsulosin Yes Adenocarcin .8mg Take 2 MD (FLOMAX) 7-15 geoff of capsules Dave so 0.4 mg 24 00:00: prostate (0.8 mg) n hr capsule 00 by mouth at bedtime. amLODIPine 2020- No 5mg Take 5 mg M D (NORVASC) 5 08-24 by mouth And erso mg tablet 15:55: 00:00 daily. n 04 :00 enalapril 2020- No 10mg Take 10 mg M D (VASOTEC) 08-24 by mouth Dave so 10 mg 14:26: 00:00 daily. n tablet 34 :00 enalapril Yes 10mg Take 1 MD (VASOTEC) 13 tablet (10 Bernard rso 10 mg 00:00: mg) by n tablet 00 mouth daily. Hold dose if systolic blood pressure (top number) is less than 110. enalapril 2020- No 10mg Take 1 MD (VASOTEC) 08-2413 tablet (10 And erso 10 mg 00:00: 00:00 mg) by n tablet 00 :00 mouth daily. Hold dose if systolic blood pressure (top number) is less than 110. metoprolol 2020- No 25mg Take 1 MD succinate 08-2216 tablet (25 And erso (TOPROL XL) 00:00: 00:00 mg) by n 25 mg 24 hr 00 :00 mouth tablet daily. Hold dose if systolic blood pressure (top number) is less than 110 or heart rate less than 55. amoxicillin 2020- No 875mg Take 1 MD -clavulanat 08-22 tablet Dave so e 00:00: 04:59 (875 mg) n (Augmentin) 00 :00 by mouth 875 mg-125 twice mg per daily for tablet 7 days. enalapril 2020- No 10mg Take 1 MD (VASOTEC) 08-22-13 tablet (10 And erso 10 mg 00:00: 00:00 mg) by n tablet 00 :00 mouth daily. Hold dose if systolic blood pressure (top number) is less than 110. zolpidem 2020- No Adenocarcin 5mg Take 1 MD (Ambien) 5 6- 07-27 geoff of tablet (5 A nderso mg tablet 00:00: 00:00 prostate mg) by n 00 :00 mouth nightly as needed for sleep. ondansetron 2020- No Adenocarcin 8mg Dissolve 1 MD (ZOFRAN-ODT 08-20 08-20 geoff of tablet (8 Anderso ) 8 mg 00:00: 00:00 prostate mg) on the n disintegrat 00 :00 tongue ing tablet every 8 (eight) hours as needed for vomiting. bicalutamid Yes Adenocarcin 50mg Take 1 MD e (CASODEX) 5-19 geoff of tablet (50 Anderso 50 mg 00:00: prostate mg) by n tablet 00 mouth daily. tamsulosin 2020- No Adenocarcin .4mg Take 1 MD (FLOMAX) 07-30 07-15 geoff of capsule Dave so 0.4 mg 24 00:00: 00:00 prostate (0.4 mg) n hr capsule 00 :00 by mouth at bedtime. bicalutamid 2020- No Adenocarcin 50mg Take 1 MD e (CASODEX) 07-30 05-19 geoff of tablet (50 Anderso 50 mg 00:00: 00:00 prostate mg) by n tablet 00 :00 mouth daily. ciprofloxac 2020- No Adenocarcin 250mg Take 1 MD in HCl 07-29 05-22 geoff of tablet Anderso (Cipro) 250 00:00: 04:59 prostate (250 mg) n mg tablet 00 :00 by mouth twice daily for 3 days. sodium,pota 2020- No Colonoscopy Take as MD ssium,mag 07-25 planned directed An derso sulfates 00:00: 00:00 for n (Suprep) 00 :00 colonoscop 17.5-3.13-1 y prep .6 gram solr degarelix 2020- No 240mg Inject 240 MD (FIRMAGON) 5-05 05-05 mg under Bernard rso 120 mg/3 mL 13:52: 00:00 the skin n solr 33 :00 once. injection Last dose 04/18/2020 acetaminoph 2020- No 500mg Take 500 MD en 3-05 03-05 mg by Anderso (TYLENOL) 08:30: 00:00 mouth as n 500 mg 42 :00 needed for tablet mild pain. PRN for headache pantoprazol Yes Adenocarcin 40mg Take 1 MD e 3-05 geoff of tablet (40 Anderso (Protonix) 00:00: prostate mg) by n 40 mg EC 00 mouth tablet daily with breakfast. zolpidem 2020- No Adenocarcin 5mg Take 1 MD (Ambien) 5 3-05 06-09 geoff of tablet (5 A nderso mg tablet 00:00: 00:00 prostate mg) by n 00 :00 mouth nightly as needed for sleep. venlafaxine 2020- No Adenocarcin 75mg Take 1 MD (Effexor 2-05 06-13 geoff of capsule Dave so XR) 75 mg 00:00: 00:00 prostate (75 mg) by n 24 hr 00 :00 mouth at capsule bedtime. zolpidem 2020- No Adenocarcin 5mg Take 1 MD (Ambien) 5 2-05 03-05 geoff of tablet (5 A nderso mg tablet 00:00: 00:00 prostate mg) by n 00 :00 mouth nightly as needed for sleep. tamsulosin Yes [id number] .4mg Take 1 Univers 0.4 mg 24 7-13 capsule by ity of hr capsule 00:00: mouth [place] 00 daily. Medical Branch tamsulosin 2019- Yes [id number] .4mg Take 1 Univers 0.4 mg 24 7-13 capsule by ity of hr capsule 00:00: mouth [place] 00 daily. Medical Branch tamsulosin Yes [id number] .4mg Take 1 Univers 0.4 mg 24 7-13 capsule by ity of hr capsule 00:00: mouth [place] 00 daily. Medical Branch tamsulosin 2020-0 Yes [id number] .4mg Take 1 Univers 0.4 mg 24 7-13 capsule by ity of hr capsule 00:00: mouth [place] 00 daily. Medical Branch tamsulosin 2020-0 Yes [id number] .4mg Take 1 Univers 0.4 mg 24 7-13 capsule by ity of hr capsule 00:00: mouth [place] 00 daily. Medical Branch tamsulosin 2020-0 Yes [id number] .4mg Take 1 Univers 0.4 mg 24 7-13 capsule by ity of hr capsule 00:00: mouth [place] 00 daily. Medical Branch tamsulosin 2020-0 Yes [id number] .4mg Take 1 Univers 0.4 mg 24 7-13 capsule by ity of hr capsule 00:00: mouth [place] 00 daily. Medical Branch tamsulosin 2020-0 Yes [id number] .4mg Take 1 Univers 0.4 mg 24 7-13 capsule by ity of hr capsule 00:00: mouth [place] 00 daily. Medical Branch tamsulosin 2020-0 Yes [id number] .4mg Take 1 Univers 0.4 mg 24 7-13 capsule by ity of hr capsule 00:00: mouth [place] 00 daily. Medical Branch tamsulosin 2020-0 Yes [id number] .4mg Take 1 Univers 0.4 mg 24 7-13 capsule by ity of hr capsule 00:00: mouth [place] 00 daily. Medical Branch tamsulosin 2020-0 Yes [id number] .4mg Take 1 Univers 0.4 mg 24 7-13 capsule by ity of hr capsule 00:00: mouth [place] 00 daily. Medical Branch tamsulosin 2020-0 Yes [id number] .4mg Take 1 Univers 0.4 mg 24 7-13 capsule by ity of hr capsule 00:00: mouth [place] 00 daily. Medical Branch tamsulosin 2020-0 Yes [id number] .4mg Take 1 Univers 0.4 mg 24 7-13 capsule by ity of hr capsule 00:00: mouth [place] 00 daily. Medical Branch tamsulosin 2020-0 Yes [id number] .4mg Take 1 Univers 0.4 mg 24 7-13 capsule by ity of hr capsule 00:00: mouth [place] 00 daily. Medical Branch tamsulosin 2020-0 Yes [id number] .4mg Take 1 Univers 0.4 mg 24 7-13 capsule by ity of hr capsule 00:00: mouth [place] 00 daily. Medical Branch tamsulosin 2020-0 Yes [id number] .4mg Take 1 Univers 0.4 mg 24 7-13 capsule by ity of hr capsule 00:00: mouth [place] 00 daily. Medical Branch tamsulosin 2020-0 Yes [id number] .4mg Take 1 Univers 0.4 mg 24 7-13 capsule by ity of hr capsule 00:00: mouth [place] 00 daily. Medical Branch tamsulosin 2020-0 Yes [id number] .4mg Take 1 Univers 0.4 mg 24 7-13 capsule by ity of hr capsule 00:00: mouth [place] 00 daily. Medical Branch tamsulosin 2020-0 Yes [id number] .4mg Take 1 Univers 0.4 mg 24 7-13 capsule by ity of hr capsule 00:00: mouth [place] 00 daily. Medical Branch tamsulosin 2020-0 Yes [id number] .4mg Take 1 Univers 0.4 mg 24 7-13 capsule by ity of hr capsule 00:00: mouth [place] 00 daily. Medical Branch tamsulosin 2020-0 Yes [id number] .4mg Take 1 Univers 0.4 mg 24 7-13 capsule by ity of hr capsule 00:00: mouth [place] 00 daily. Medical Branch tamsulosin 2020-0 Yes [id number] .4mg Take 1 Univers 0.4 mg 24 7-10 capsule by ity of hr capsule 00:00: mouth [place] 00 daily. Medical Branch tamsulosin 2020-0 2020- No [id number] .4mg Take 1 Univers 0.4 mg 24 7-10 07-12 capsule by ity of hr capsule 00:00: 00:00 mouth [place] 00 :00 daily. Medical Branch cefTRIAXone 2020-0 2020- No 500mg Univ ers (ROCEPHIN) 09-13 ity of injection 15:45: 15:10 [place] 500 mg 00 :00 Medical Branch gentamicin 2019-0 2020- No 80mg Univer s INTRAMUSCUL 09-13 ity of AR syringe 15:45: 15:10 [place] 80 mg 00 :00 Medical Branch gentamicin 2019-0 2020- No 80mg 80 mg, Univ ers INTRAMUSCUL 09-13 Intramuscu i ty of AR syringe 15:45: 15:10 lar, ONCE, [place] 80 mg 00 :00 1 dose, Medical 09/14/19 Branch at 1045, HA
Re ason for Anti-Infec tive: Surgical Prophylaxi s
Surgi adilene Prophylaxi s: Genitourin aislinn
Dur ation of therapy: within 24 hours of surgery cefTRIAXone 2020-0 2020- No 500mg 500 mg, U nivers (ROCEPHIN) 09-13 Intramuscu it y of injection 15:45: 15:10 lar, ONCE, [place] 500 mg 00 :00 1 dose, Medical 09/14/19 Branch at 1045, HA
Re ason for Anti-Infec tive: Surgical Prophylaxi s
Surgi adilene Prophylaxi s: Genitourin aislinn
Dur ation of therapy: within 24 hours of surgery cefTRIAXone 2020-0 2020- No 500mg Univ ers (ROCEPHIN) 09-13 ity of injection 15:45: 15:10 [place] 500 mg 00 :00 Medical Branch gentamicin 2020-0 2020- No 80mg Univer s INTRAMUSCUL 09-13 ity of AR syringe 15:45: 15:10 [place] 80 mg 00 :00 Medical Branch gentamicin 2019-0 2020- No 80mg 80 mg, Univ ers INTRAMUSCUL 09-13 Intramuscu i ty of AR syringe 15:45: 15:10 lar, ONCE, [place] 80 mg 00 :00 1 dose, Medical 09/14/19 Branch at 1045, HA
Re ason for Anti-Infec tive: Surgical Prophylaxi s
Surgi adilene Prophylaxi s: Genitourin aislinn
Dur ation of therapy: within 24 hours of surgery cefTRIAXone 2020-0 2020- No 500mg 500 mg, U nivers (ROCEPHIN) 09-13 Intramuscu it y of injection 15:45: 15:10 lar, ONCE, [place] 500 mg 00 :00 1 dose, Medical 09/14/19 Branch at 1045, HA
Re ason for Anti-Infec tive: Surgical Prophylaxi s
Surgi adilene Prophylaxi s: Genitourin aislinn
Dur ation of therapy: within 24 hours of surgery cefTRIAXone 2020-0 2020- No 500mg Univ ers (ROCEPHIN) 09-13 ity of injection 15:45: 15:10 [place] 500 mg 00 :00 Medical Branch gentamicin 2019-0 2020- No 80mg Univer s INTRAMUSCUL 09-13 ity of AR syringe 15:45: 15:10 [place] 80 mg 00 :00 Medical Branch gentamicin 2019-0 2020- No 80mg 80 mg, Univ ers INTRAMUSCUL 09-13 Intramuscu i ty of AR syringe 15:45: 15:10 lar, ONCE, [place] 80 mg 00 :00 1 dose, Medical 09/14/19 Branch at 1045, HA
Re ason for Anti-Infec tive: Surgical Prophylaxi s
Surgi adilene Prophylaxi s: Genitourin aislinn
Dur ation of therapy: within 24 hours of surgery cefTRIAXone 2019-0 2020- No 500mg 500 mg, U nivers (ROCEPHIN) 09-13 Intramuscu it y of injection 15:45: 15:10 lar, ONCE, [place] 500 mg 00 :00 1 dose, Medical 09/14/19 Branch at 1045, HA
Re ason for Anti-Infec tive: Surgical Prophylaxi s
Surgi adilene Prophylaxi s: Genitourin aislinn
Dur ation of therapy: within 24 hours of surgery mineral oil 2019- No [id number] 1{enema Insert 1 Univers (READY-TO-U 09-06 } Enema into i ty of SE ENEMA, 00:00: 04:59 rectum [place] MIN OIL,) 00 :00 once now Medica l enema for 1 Branch dose. Perform morning of procedure. mineral oil 2019- No [id number] 1{enema Insert 1 Univers (READY-TO-U 09-06 } Enema into i ty of SE ENEMA, 00:00: 04:59 rectum [place] MIN OIL,) 00 :00 once now Medica l enema for 1 Branch dose. Perform morning of procedure. mineral oil 2020- No [id number] 1{enema Insert 1 Univers (READY-TO-U 09-06 } Enema into i ty of SE ENEMA, 00:00: 04:59 rectum [place] MIN OIL,) 00 :00 once now Medica l enema for 1 Branch dose. Perform morning of procedure. mineral oil 2019-0 2020- No [id number] 1{enema Insert 1 Univers (READY-TO-U 09-06 } Enema into i ty of SE ENEMA, 00:00: 04:59 rectum [place] MIN OIL,) 00 :00 once now Medica l enema for 1 Branch dose. Perform morning of procedure. ciprofloxac 2020-0 Yes [id number] 500mg Take 1 Univers in HCl 500 6-25 tablet by ity of mg tablet 00:00: mouth [place] 00 every 12 Medical (twelve) Branch hours. Start 1 day before procedure. ciprofloxac 2020-0 Yes [id number] 500mg Take 1 Univers in HCl 500 6-25 tablet by ity of mg tablet 00:00: mouth [place] 00 every 12 Medical (twelve) Branch hours. Start 1 day before procedure. ciprofloxac 2020-0 Yes [id number] 500mg Take 1 Univers in HCl 500 6-25 tablet by ity of mg tablet 00:00: mouth [place] 00 every 12 Medical (twelve) Branch hours. Start 1 day before procedure. ciprofloxac 2020-0 Yes [id number] 500mg Take 1 Univers in HCl 500 6-25 tablet by ity of mg tablet 00:00: mouth [place] 00 every 12 Medical (twelve) Branch hours. Start 1 day before procedure. ciprofloxac 2020-0 Yes [id number] 500mg Take 1 Univers in HCl 500 6-25 tablet by ity of mg tablet 00:00: mouth [place] 00 every 12 Medical (twelve) Branch hours. Start 1 day before procedure. ciprofloxac 2020-0 Yes [id number] 500mg Take 1 Univers in HCl 500 6-25 tablet by ity of mg tablet 00:00: mouth [place] 00 every 12 Medical (twelve) Branch hours. Start 1 day before procedure. ciprofloxac 2020-0 Yes [id number] 500mg Take 1 Univers in HCl 500 6-25 tablet by ity of mg tablet 00:00: mouth [place] 00 every 12 Medical (twelve) Branch hours. Start 1 day before procedure. ciprofloxac 2020-0 Yes [id number] 500mg Take 1 Univers in HCl 500 6-25 tablet by ity of mg tablet 00:00: mouth [place] 00 every 12 Medical (twelve) Branch hours. Start 1 day before procedure. ciprofloxac 2020-0 Yes [id number] 500mg Take 1 Univers in HCl 500 6-25 tablet by ity of mg tablet 00:00: mouth [place] 00 every 12 Medical (twelve) Branch hours. Start 1 day before procedure. ciprofloxac 2020-0 Yes [id number] 500mg Take 1 Univers in HCl 500 6-25 tablet by ity of mg tablet 00:00: mouth [place] 00 every 12 Medical (twelve) Branch hours. Start 1 day before procedure. ciprofloxac 2020-0 Yes [id number] 500mg Take 1 Univers in HCl 500 6-25 tablet by ity of mg tablet 00:00: mouth [place] 00 every 12 Medical (twelve) Branch hours. Start 1 day before procedure. ciprofloxac 2020-0 Yes [id number] 500mg Take 1 Univers in HCl 500 6-25 tablet by ity of mg tablet 00:00: mouth [place] 00 every 12 Medical (twelve) Branch hours. Start 1 day before procedure. ciprofloxac 2020-0 Yes [id number] 500mg Take 1 Univers in HCl 500 6-25 tablet by ity of mg tablet 00:00: mouth [place] 00 every 12 Medical (twelve) Branch hours. Start 1 day before procedure. ciprofloxac 2020-0 Yes [id number] 500mg Take 1 Univers in HCl 500 6-25 tablet by ity of mg tablet 00:00: mouth [place] 00 every 12 Medical (twelve) Branch hours. Start 1 day before procedure. ciprofloxac 2020-0 Yes [id number] 500mg Take 1 Univers in HCl 500 6-25 tablet by ity of mg tablet 00:00: mouth [place] 00 every 12 Medical (twelve) Branch hours. Start 1 day before procedure. ciprofloxac 2020-0 Yes [id number] 500mg Take 1 Univers in HCl 500 6-25 tablet by ity of mg tablet 00:00: mouth [place] 00 every 12 Medical (twelve) Branch hours. Start 1 day before procedure. ciprofloxac 2020-0 Yes [id number] 500mg Take 1 Univers in HCl 500 6-25 tablet by ity of mg tablet 00:00: mouth [place] 00 every 12 Medical (twelve) Branch hours. Start 1 day before procedure. ciprofloxac 2020-0 Yes [id number] 500mg Take 1 Univers in HCl 500 6-25 tablet by ity of mg tablet 00:00: mouth [place] 00 every 12 Medical (twelve) Branch hours. Start 1 day before procedure. ciprofloxac 2020-0 Yes [id number] 500mg Take 1 Univers in HCl 500 6-25 tablet by ity of mg tablet 00:00: mouth [place] 00 every 12 Medical (twelve) Branch hours. Start 1 day before procedure. ciprofloxac 2020-0 Yes [id number] 500mg Take 1 Univers in HCl 500 6-25 tablet by ity of mg tablet 00:00: mouth [place] 00 every 12 Medical (twelve) Branch hours. Start 1 day before procedure. ciprofloxac 2020-0 2020- No [id number] 500mg Take 1 Univers in HCl 500 6-25 07-30 tablet by ity of mg tablet 00:00: 00:00 mouth [place] 00 :00 every 12 Medical (twelve) Branch hours. Start 1 day before procedure. ciprofloxac 2020-0 2020- No [id number] 500mg Take 1 Univers in HCl 500 6-25 07-30 tablet by ity of mg tablet 00:00: 00:00 mouth [place] 00 :00 every 12 Medical (twelve) Branch hours. Start 1 day before procedure. ciprofloxac 2020-0 2020- No [id number] 500mg Take 1 Univers in HCl 500 6-25 07-30 tablet by ity of mg tablet 00:00: 00:00 mouth [place] 00 :00 every 12 Medical (twelve) Branch hours. Start 1 day before procedure. ciprofloxac 2020-0 2020- No [id number] 500mg Take 1 Univers in HCl 500 6-25 07-30 tablet by ity of mg tablet 00:00: 00:00 mouth [place] 00 :00 every 12 Medical (twelve) Branch hours. Start 1 day before procedure. ciprofloxac 2020-0 2020- No [id number] 500mg Take 1 Univers in HCl 500 6-25 07-03 tablet by ity of mg tablet 00:00: 04:59 mouth [place] 00 :00 every 12 Medical (twelve) Branch hours for 7 days. ciprofloxac 2020-0 2020- No [id number] 500mg Take 1 Univers in HCl 500 6-25 07-03 tablet by ity of mg tablet 00:00: 04:59 mouth [place] 00 :00 every 12 Medical (twelve) Branch hours for 7 days. enalapril 2020-0 Yes 10mg Take 10 mg Un [place] 10 mg 6-22 by mouth ity of tablet 20:31: daily. [address] amLODIPine 2020-0 Yes 5mg Take 5 mg Un [place] 5 mg tablet 6-22 by mouth ity of 20:31: daily. [address] enalapril 2020-0 Yes 10mg Take 10 mg Un [place] 10 mg 6-22 by mouth ity of tablet 20:31: daily. [address] amLODIPine 2020-0 Yes 5mg Take 5 mg Un pierre 5 mg tablet 6-22 by mouth ity of 20:31: daily. [address] enalapril 2020-0 Yes 10mg Take 10 mg [facility] 10 mg 6-22 by mouth ity of tablet 20:31: daily. [address] amLODIPine 2020-0 Yes 5mg Take 5 mg [facility] 5 mg tablet 6-22 by mouth ity of 20:31: daily. [address] enalapril 2020-0 Yes 10mg Take 10 mg [place] [facility] 10 mg 6-22 by mouth ity of tablet 20:31: daily. [address] amLODIPine 2020-0 Yes 5mg Take 5 mg [facility] 5 mg tablet 6-22 by mouth ity of 20:31: daily. [address] enalapril 2020-0 Yes 10mg Take 10 mg [place] [facility] 10 mg 6-22 by mouth ity of tablet 20:31: daily. [address] amLODIPine 2020-0 Yes 5mg Take 5 mg [facility] 5 mg tablet 6-22 by mouth ity of 20:31: daily. [address] enalapril 2020-0 Yes 10mg Take 10 mg [facility] 10 mg 6-22 by mouth ity of tablet 20:31: daily. [address] amLODIPine 2020-0 Yes 5mg Take 5 mg [facility] 5 mg tablet 6-22 by mouth ity of 20:31: daily. [address] enalapril 2020-0 Yes 10mg Take 10 mg [facility] 10 mg 6-22 by mouth ity of tablet 20:31: daily. [address] amLODIPine 2020-0 Yes 5mg Take 5 mg [facility] 5 mg tablet 6-22 by mouth ity of 20:31: daily. [address] enalapril 2020-0 Yes 10mg Take 10 mg [facility] 10 mg 6-22 by mouth ity of tablet 20:31: daily. [address] amLODIPine 2020-0 Yes 5mg Take 5 mg [facility] 5 mg tablet 6-22 by mouth ity of 20:31: daily. [address] enalapril 2020-0 Yes 10mg Take 10 mg [facility] 10 mg 6-22 by mouth ity of tablet 20:31: daily. [address] amLODIPine 2020-0 Yes 5mg Take 5 mg [facility] 5 mg tablet 6-22 by mouth ity of 20:31: daily. [address] enalapril 2020-0 Yes 10mg Take 10 mg [facility] 10 mg 6-22 by mouth ity of tablet 20:31: daily. [address] amLODIPine 2020-0 Yes 5mg Take 5 mg [facility] 5 mg tablet 6-22 by mouth ity of 20:31: daily. [address] enalapril 2020-0 Yes 10mg Take 10 mg [facility] 10 mg 6-22 by mouth ity of tablet 20:31: daily. [address] amLODIPine 2020-0 Yes 5mg Take 5 mg [facility] 5 mg tablet 6-22 by mouth ity of 20:31: daily. [address] enalapril 2020-0 Yes 10mg Take 10 mg [facility] 10 mg 6-22 by mouth ity of tablet 20:31: daily. [address] amLODIPine 2020-0 Yes 5mg Take 5 mg [facility] 5 mg tablet 6-22 by mouth ity of 20:31: daily. [address] enalapril 2020-0 Yes 10mg Take 10 mg [facility] 10 mg 6-22 by mouth ity of tablet 20:31: daily. [address] amLODIPine 2020-0 Yes 5mg Take 5 mg [facility] 5 mg tablet 6-22 by mouth ity of 20:31: daily. [address] enalapril 2020-0 Yes 10mg Take 10 mg [facility] 10 mg 6-22 by mouth ity of tablet 20:31: daily. [address] amLODIPine 2020-0 Yes 5mg Take 5 mg [facility] 5 mg tablet 6-22 by mouth ity of 20:31: daily. [address] enalapril 2020-0 Yes 10mg Take 10 mg [facility] 10 mg 6-22 by mouth ity of tablet 20:31: daily. [address] amLODIPine 2020-0 Yes 5mg Take 5 mg [facility] 5 mg tablet 6-22 by mouth ity of 20:31: daily. [address] enalapril 2020-0 Yes 10mg Take 10 mg [facility] 10 mg 6-22 by mouth ity of tablet 20:31: daily. [address] amLODIPine 2020-0 Yes 5mg Take 5 mg [facility] 5 mg tablet 6-22 by mouth ity of 20:31: daily. [address] enalapril 2020-0 Yes 10mg Take 10 mg [facility] 10 mg 6-22 by mouth ity of tablet 20:31: daily. [address] amLODIPine 2020-0 Yes 5mg Take 5 mg [facility] 5 mg tablet 6-22 by mouth ity of 20:31: daily. [address] enalapril 2020-0 Yes 10mg Take 10 mg [facility] 10 mg 6-22 by mouth ity of tablet 20:31: daily. [address] amLODIPine 2020-0 Yes 5mg Take 5 mg [facility] 5 mg tablet 6-22 by mouth ity of 20:31: daily. [address] enalapril 2020-0 Yes 10mg Take 10 mg [facility] 10 mg 6-22 by mouth ity of tablet 20:31: daily. [address] amLODIPine 2020-0 Yes 5mg Take 5 mg [facility] 5 mg tablet 6-22 by mouth ity of 20:31: daily. [address] enalapril 2020-0 Yes 10mg Take 10 mg [facility] 10 mg 6-22 by mouth ity of tablet 20:31: daily. [address] enalapril 2020-0 Yes 10mg Take 10 mg [facility] 10 mg 6-22 by mouth ity of tablet 20:31: daily. [address] amLODIPine 2020-0 Yes 5mg Take 5 mg [facility] 5 mg tablet 6-22 by mouth ity of 20:31: daily. [address] enalapril 2020-0 Yes 10mg Take 10 mg [facility] 10 mg 6-22 by mouth ity of tablet 20:31: daily. [address] amLODIPine 2020-0 Yes 5mg Take 5 mg [facility] 5 mg tablet 6-22 by mouth ity of 20:31: daily. [address] amLODIPine 2020-0 Yes 5mg Take 5 mg [facility] 5 mg tablet 6-22 by mouth ity of 20:31: daily. [address] enalapril 2020-0 Yes 10mg Take 10 mg [facility] 10 mg 6-22 by mouth ity of tablet 20:31: daily. [address] amLODIPine 2020-0 Yes 5mg Take 5 mg [facility] 5 mg tablet 6-22 by mouth ity of 20:31: daily. [address] enalapril 2020-0 Yes 10mg Take 10 mg [facility] 10 mg 6-22 by mouth ity of tablet 20:31: daily. [address] amLODIPine 2020-0 Yes 5mg Take 5 mg [facility] 5 mg tablet 6-22 by mouth ity of 20:31: daily. [address] enalapril 2020-0 Yes 10mg Take 10 mg [facility] 10 mg 6-22 by mouth ity of tablet 20:31: daily. [address] amLODIPine 2020-0 Yes 5mg Take 5 mg [facility] 5 mg tablet 6-22 by mouth ity of 20:31: daily. [address] enalapril 2020-0 Yes 10mg Take 10 mg [facility] 10 mg 6-22 by mouth ity of tablet 20:31: daily. [address] amLODIPine 2020-0 Yes 5mg Take 5 mg [facility] 5 mg tablet 6-22 by mouth ity of 20:31: daily. [address] enalapril 2020-0 Yes 10mg Take 10 mg [facility] 10 mg 6-22 by mouth ity of tablet 20:31: daily. [address] amLODIPine 2020-0 Yes 5mg Take 5 mg [facility] 5 mg tablet 6-22 by mouth ity of 20:31: daily. [address] enalapril 2020-0 Yes 10mg Take 10 mg [facility] 10 mg 6-22 by mouth ity of tablet 20:31: daily. [address] amLODIPine 2020-0 Yes 5mg Take 5 mg [facility] 5 mg tablet 6-22 by mouth ity of 20:31: daily. [address] enalapril 2020-0 Yes 10mg Take 10 mg [facility] 10 mg 6-22 by mouth ity of tablet 20:31: daily. [address] amLODIPine 2020-0 Yes 5mg Take 5 mg [facility] 5 mg tablet 6-22 by mouth ity of 20:31: daily. [address] enalapril 2020-0 Yes 10mg Take 10 mg [facility] 10 mg 6-22 by mouth ity of tablet 20:31: daily. [address] amLODIPine 2020-0 Yes 5mg Take 5 mg [facility] 5 mg tablet 6-22 by mouth ity of 20:31: daily. [address] enalapril 2020-0 Yes 10mg Take 10 mg [facility] 10 mg 6-22 by mouth ity of tablet 20:31: daily. [address] amLODIPine 2020-0 Yes 5mg Take 5 mg [facility] 5 mg tablet 6-22 by mouth ity of 20:31: daily. [address] enalapril 2020-0 Yes 10mg Take 10 mg [facility] 10 mg 6-22 by mouth ity of tablet 20:31: daily. [address] amLODIPine 2020-0 Yes 5mg Take 5 mg [facility] 5 mg tablet 6-22 by mouth ity of 20:31: daily. [address] enalapril 2020-0 Yes 10mg Take 10 mg [facility] 10 mg 6-22 by mouth ity of tablet 20:31: daily. [address] amLODIPine 2020-0 Yes 5mg Take 5 mg [facility] 5 mg tablet 6-22 by mouth ity of 20:31: daily. [address] enalapril 2020-0 Yes 10mg Take 10 mg [place] [facility] 10 mg 6-22 by mouth ity of tablet 20:31: daily. [address] amLODIPine 2020-0 Yes 5mg Take 5 mg [facility] 5 mg tablet 6-22 by mouth ity of 20:31: daily. [address] enalapril 2020-0 Yes 10mg Take 10 mg [facility] 10 mg 6-22 by mouth ity of tablet 20:31: daily. [address] enalapril 2020-0 Yes 10mg Take 10 mg [place] [facility] 10 mg 6-22 by mouth ity of tablet 20:31: daily. [address] amLODIPine 2020-0 Yes 5mg Take 5 mg [facility] 5 mg tablet 6-22 by mouth ity of 20:31: daily. [address] amLODIPine 2020-0 Yes 5mg Take 5 mg [place] [facility] 5 mg tablet 6-22 by mouth ity of 20:31: daily. [address] enalapril 2020-0 Yes 10mg Take 10 mg [place] [facility] 10 mg 6-22 by mouth ity of tablet 20:31: daily. [address] amLODIPine 2020-0 Yes 5mg Take 5 mg [place] [facility] 5 mg tablet 6-22 by mouth ity of 20:31: daily. [address] enalapril 2020-0 Yes 10mg Take 10 mg [place] [facility] 10 mg 6-22 by mouth ity of tablet 20:31: daily. [address] amLODIPine 2020-0 Yes 5mg Take 5 mg [place] [facility] 5 mg tablet 6-22 by mouth ity of 20:31: daily. [address] enalapril 2020-0 Yes 10mg Take 10 mg [place] [facility] 10 mg 6-22 by mouth ity of tablet 20:31: daily. [address] amLODIPine 2020-0 Yes 5mg Take 5 mg [facility] 5 mg tablet 6-22 by mouth ity of 20:31: daily. [address] ciprofloxac 2020-0 2020- No [id number] 500mg Take 1 [facility] in HCl 500 6-22 06-22 tablet by ity of mg tablet 00:00: 00:00 mouth [place] 00 :00 every 12 Medical ([facility] hours for 3 days. Start 1 day before procedure. ciprofloxac 2020-0 2020- No [id number] 500mg Take 1 [facility] in HCl 500 6-22 06-22 tablet by ity of mg tablet 00:00: 00:00 mouth [place] 00 :00 every 12 Medical ([facility] hours for 3 days. Start 1 day before procedure. ciprofloxac 2020-0 2020- No [id number] 500mg Take 1 [facility] in HCl 500 6-22 06-22 tablet by ity of mg tablet 00:00: 00:00 mouth [place] 00 :00 every 12 Medical ([facility]) Branch hours for 3 days. Start 1 day before procedure. ciprofloxac 2020- No [id number] 500mg Take 1 [facility] in HCl 500 09-02 tablet by ity of mg tablet 00:00: 00:00 mouth [place] 00 :00 every 12 Medical ([facility]) Branch hours for 3 days. Start 1 day before procedure. No known No Univers medications ity of [facility] Immunizations Ordered Immunization Filled Immunization Date Status Commen ts Source Name Name Kendra SARS-CoV-2 2020-05-31 Completed Vaccination 00:00:00 remdesivir 2020-03-07 Completed MD Valdivia 00:00:00 remdesivir 2020-03-06 Completed MD Valdivia 00:00:00 milkaivir 2020-03-05 Completed MD Valdivia 00:00:00 adandesivir 2020-03-04 Completed MD Valdivia 00:00:00 remdesivir 2020-03-03 Completed MD Valdivia 00:00:00 Vital Signs Vital Name Observation Time Observation Value Comments Source WEIGHT 2020-02-13 11:54:00 65.8 kg Systolic blood 2019-10-11 18:23:00 153 mm[Hg] Univer [facility] of [facility] Diastolic blood 2019-10-11 18:23:00 69 mm[facility]Hg] [facility] rate 2019-10-11 18:23:00 64 /min [facility] Body temperature 2019-10-11 18:23:00 36.67 Lyn [facility] Respiratory rate 2019-10-11 18:23:00 14 /min [facility] Body weight 2019-10-11 18:23:00 65.091 kg [facility] BMI 2019-10-11 18:23:00 23.16 kg/m2 [facility] Oxygen saturation in 2019-10-11 18:23:00 96 /min [facility] Arterial blood by [facility] Pulse oximetry Branch Systolic blood 2019-09-14 15:02:00 150 mm[Hg] Univer sity of [facility] Diastolic blood 2019-09-14 15:02:00 71 mm[Hg] Unive rsity of [facility] Heart rate 2019-09-14 15:02:00 68 /min [facility] Body temperature 2019-09-14 15:02:00 36.78 Lyn [facility] [place] [facility] [place] Respiratory rate 2019-09-14 15:02:00 15 /min [facility] [place] [facility] Body weight 2019-09-14 15:02:00 68.493 kg [facility] [place] [facility] [place] BMI 2019-09-14 15:02:00 24.37 kg/m2 [facility]i ty of [facility] Oxygen saturation in 2019-09-14 15:02:00 98 /min University of Arterial blood by [facility] Pulse oximetry Branch Systolic blood 2019-09-03 20:27:00 156 mm[Hg] Univer sity of pressure [place] [facility] [place] Diastolic blood 2019-09-03 20:27:00 76 mm[Hg] Unive rsity of pressure [facility] Heart rate 2019-09-03 20:27:00 80 /min Universi ty of [facility] Body temperature 2019-09-03 20:27:00 36.44 Lyn [facility] ersity of [facility] Respiratory rate 2019-09-03 20:27:00 14 /min [facility] ersity of [facility] Body height 2019-09-03 20:27:00 167.6 cm [facility] [place] [facility] [place] Body weight 2019-09-03 20:27:00 68.493 kg [facility] [place] [facility] [place] BMI 2019-09-03 20:27:00 24.37 kg/m2 [facility] [place] [facility] [place] Oxygen saturation in 2019-09-03 20:27:00 99 /min University of Arterial blood by [facility] Pulse oximetry Branch Systolic blood 2020-10-27 20:30:58 146 mm[Hg] pressure Diastolic blood 2020-10-27 20:30:58 71 mm[Hg] MD Jaclyn noel pressure Heart rate 2020-10-27 20:30:58 53 /min MD Acosta son Body temperature 2020-10-27 20:30:58 36.72 Lyn MD Jailyn marierson Respiratory rate 2020-10-27 20:30:58 16 /min MD Glaser nderson Body weight 2020-10-27 20:30:58 62.4 kg MD Acosta son BMI 2020-10-27 20:30:58 24.07 kg/m2 MD Dave gant Oxygen saturation in 2020-10-27 20:30:58 97 /min MD Valdivia Arterial blood by Pulse oximetry Body height 2020-08-22 04:51:00 161 cm MD Acosta son Procedures Procedure Date / Time Performing Clinician Source Performed EKG, 12-LEAD (PORTABLE) 2020-08-31 00:00:[address] HEAD WO CONTRAST 2020-08-30 22:35:28 Juan Pablo Hanson MD And erson INFLUENZA A/B + COVID-19 2020-08-30 21:58:00 Juan Pablo Hanson ASYMPTOMATIC-L POC TROPONIN I 2020-08-30 21:55:00 Juan Pablo Hanosn MD POC GLUCOSE SCREEN 2020-08-30 21:40:00 Juan Pablo Hanson MD Bernard rson COMPLETE BLOOD COUNT W/ 2020-08-30 21:36:00 Juan Pablo Hanson MD DIFFERENTIAL COMPREHENSIVE METABOLIC 2020-08-30 21:36:00 Juan Pablo Hanson MD PANEL MAGNESIUM LEVEL 2020-08-30 21:36:00 HitaJuan Pablo MD PHOSPHORUS LEVEL 2020-08-30 21:36:00 HitaJuan Pablo MD on PROTHROMBIN TIME 2020-08-30 21:36:00 HitaJuan Pablo MD on APTT 2020-08-30 21:36:00 HitaJuan Pablo MD TYPE AND SCREEN 2020-08-30 21:36:00 HitaJuan Pablo MD AMYLASE LEVEL 2020-08-30 21:36:00 HitaJuan Pablo MD LIPASE LEVEL 2020-08-30 21:36:00 HitaJuan Pablo MD THYROID STIMULATING 2020-08-30 21:36:00 HitaJuan Pablo MD And erson HORMONE URIC ACID 2020-08-30 21:36:00 HitaJuan Pablo MD FREE THYROXINE 2020-08-30 21:36:00 HitJuan Pablo glaser MD ABORH 2020-08-30 21:36:00 HitaJuan Pablo MD Andzoraidao neeta ANTIBODY SCREEN 2020-08-30 21:36:00 Juan Pablo Hanson MD Results CBC 2020-08-30 21:36:00 Juan Pablo Hanson MD Andsusan santacruz MANUAL DIFFERENTIAL 2020-08-30 21:36:00 Margie, Juan Pablo Fabian MD And erson GLUCOSE LEVEL 2020-08-30 21:36:00 Juan Pablo Hanson MD Andzoraidao neeta BLOOD UREA NITROGEN 2020-08-30 21:36:00 Hitjailyn, Juan Pablo Fabian MD And erson ELECTROLYTE PANEL 2020-08-30 21:36:00 HitaJuan Pablo MD Dave son SERUM CREATININE 2020-08-30 21:36:00 Juan Pablo Hanson MD Nathan on .GLOMERULAR FILTRATION 2020-08-30 21:36:00 Juan Pablo Hanson MD RATE CALCIUM LEVEL TOTAL 2020-08-30 21:36:00 Juan Pablo Hanson MD And erson ALBUMIN LEVEL 2020-08-30 21:36:00 Juan Pablo Hanosn MD ALKALINE PHOSPHATASE 2020-08-30 21:36:00 HitaJuan Pablo MD ALANINE AMINOTRANSFERASE 2020-08-30 21:36:00 Juan Pablo Hanson ASPARTATE AMINOTRANSFERASE 2020-08-30 21:36:00 Juan Pablo Hanson MD TOTAL PROTEIN 2020-08-30 21:36:00 Juan Pablo Hanson MD FRACTIONATED BILIRUBIN 2020-08-30 21:36:00 Juan Pablo Hanson MD CLOT EXPIRATION DATE 2020-08-30 21:36:00 Juan Pablo Hanson MDson TMP INTERPRETATION 2020-08-30 21:36:00 Juan Pablo Hanson MD Bernard rson ANTIBODY SCREEN NEGATIVE URINE CULTURE 2020-08-27 17:29:00 Serena Stuart MD on URINALYSIS MICROSCOPIC 2020-08-27 17:29:00 Serena Stuart MD URINALYSIS WITH 2020-08-27 17:29:00 Serena Stuart MD on MICROSCOPIC IF INDICATED BASIC METABOLIC PANEL, 2020-08-24 07:57:00 Luigi Barreto MD CALCIUM TOTAL MAGNESIUM LEVEL 2020-08-24 07:57:00 Luigi Barreto MD PHOSPHORUS LEVEL 2020-08-24 07:57:00 Luigi Barreto MD GLUCOSE LEVEL 2020-08-24 07:57:00 Luigi Barreto MD BLOOD UREA NITROGEN 2020-08-24 07:57:00 Luigi Barreto MD ELECTROLYTE PANEL 2020-08-24 07:57:00 Luigi Barreto MD SERUM CREATININE 2020-08-24 07:57:00 Luigi Barreto MD .GLOMERULAR FILTRATION 2020-08-24 07:57:00 Luigi Barreto MD derson RATE CALCIUM LEVEL TOTAL 2020-08-24 07:57:00 Luigi Barreto MD COMPLETE BLOOD COUNT W/ 2020-08-23 11:49:00 Juan Pablo Hanson MD DIFFERENTIAL Results CBC 2020-08-23 11:49:00 Juan Pablo Hanson MD MANUAL DIFFERENTIAL 2020-08-23 11:49:00 Juan Pablo Hanson MD And erson BASIC METABOLIC PANEL, 2020-08-23 08:58:00 Luigi Barreto MD CALCIUM TOTAL MAGNESIUM LEVEL 2020-08-23 08:58:00 Luigi Barreto MD PHOSPHORUS LEVEL 2020-08-23 08:58:00 Luigi Barreto MD GLUCOSE LEVEL 2020-08-23 08:58:00 Luigi Barreto MD BLOOD UREA NITROGEN 2020-08-23 08:58:00 Luigi Barreto MD ELECTROLYTE PANEL 2020-08-23 08:58:00 Luigi Barreto MD SERUM CREATININE 2020-08-23 08:58:00 Luigi Barreto MD .GLOMERULAR FILTRATION 2020-08-23 08:58:00 Luigi Barreto MD derson RATE CALCIUM LEVEL TOTAL 2020-08-23 08:58:00 Luigi Barreto MD XR ABDOMEN 1 VW PORTABLE 2020-08-22 19:59:14 Luigi Barreto MD ECHOCARDIOGRAM 2D COMPLETE 2020-08-22 16:39:42 Luigi Barreto W CONTRAST COMPREHENSIVE METABOLIC 2020-08-22 10:54:00 HitJuan Pablo glaser MD PANEL COMPLETE BLOOD COUNT W/ 2020-08-22 10:54:00 Hita, Juan Pablo Valdivia DIFFERENTIAL GLUCOSE LEVEL 2020-08-22 10:54:00 Hita, Juan Pablo santacruz BLOOD UREA NITROGEN 2020-08-22 10:54:00 Hita, Juan Pablo Fabian MD And erson ELECTROLYTE PANEL 2020-08-22 10:54:00 Hita, Juan Pablo Fabian MD Dave son SERUM CREATININE 2020-08-22 10:54:00 Hita, Juan Pablo Fabian MD Nathan on .GLOMERULAR FILTRATION 2020-08-22 10:54:00 Hita, Juan Pablo Valdivia RATE CALCIUM LEVEL TOTAL 2020-08-22 10:54:00 Hita, Juan Pablo Fabian MD And erson ALBUMIN LEVEL 2020-08-22 10:54:00 Hita, Juan Pablo santacruz ALKALINE PHOSPHATASE 2020-08-22 10:54:00 Hita, Juan Pablo noel ALANINE AMINOTRANSFERASE 2020-08-22 10:54:00 Hita, Juan Pablo Valdivia ASPARTATE AMINOTRANSFERASE 2020-08-22 10:54:00 Hita, Juan Pablo Valdivia TOTAL PROTEIN 2020-08-22 10:54:00 Hita, Juan Pablo santacruz FRACTIONATED BILIRUBIN 2020-08-22 10:54:00 Hita, Juan Pablo Valdivia Results CBC 2020-08-22 10:54:00 Hita, Juan Pablo santacruz MANUAL DIFFERENTIAL 2020-08-22 10:54:00 Hita, Juan Pablo Fabian MD And erson TROPONIN T 2020-08-22 05:03:00 Hita, Juan Pablo santacruz TROPONIN T 2020-08-22 01:45:00 Hita, Juan Pablo santacruz EKG, 12-LEAD (PORTABLE) 2020-08-22 00:00:00 Ana Manning MD nderson URINE CULTURE 2020-08-21 22:00:00 Brice Alexander MD Bernard rson URINALYSIS WITH 2020-08-21 22:00:00 Brice Alexander MD Bernard rson MICROSCOPIC IF INDICATED TROPONIN T 2020-08-21 22:00:[address] HEAD WO CONTRAST 2020-08-21 19:57:13 Juan Pablo Hanson MD And erson XR CHEST 1 VW PORTABLE 2020-08-21 18:10:45 Brice Alexander MD RESPIRATORY VIRAL PANEL + 2020-08-21 18:05:00 Brice Alexander MD COVID-19, NASOPHARYNGEAL SWAB POC TROPONIN I 2020-08-21 17:49:00 Juan Pablo Hanson MD POC VENOUS BLOOD GAS + 2020-08-21 17:47:00 Juan Pablo Hanson MD LACTATE POC CHEM 8 2020-08-21 17:32:00 Juan Pablo Hanson MD BLOODCULTURE 2020-08-21 17:27:00 Brice Alexander MD Bernard rson COMPLETE BLOOD COUNT W/ 2020-08-21 17:27:00 Brice Alexander MD DIFFERENTIAL TYPE AND SCREEN 2020-08-21 17:27:00 Brice Alexander MD Bernard rson COMPREHENSIVE METABOLIC 2020-08-21 17:27:00 Brice Alexander MD PANEL MAGNESIUM LEVEL 2020-08-21 17:27:00 Brice Alexander MD Bernard rson PHOSPHORUS LEVEL 2020-08-21 17:27:00 Brice Alexander MD And erson PROTHROMBIN TIME 2020-08-21 17:27:00 Brice Alexander MD And erson APTT 2020-08-21 17:27:00 Brice Alexander MD Bernard rson D DIMER 2020-08-21 17:27:00 Brice Alexander MD Bernard rson FIBRINOGEN ACTIVITY 2020-08-21 17:27:00 Brice Alexander MD LACTATE DEHYDROGENASE 2020-08-21 17:27:00 Brice Alexander C REACTIVE PROTEIN 2020-08-21 17:27:00 Brice Alexander MD nderson CARDIAC PANEL 2020-08-21 17:27:00 Brice Alexander MD Bernard rson Results CBC 2020-08-21 17:27:00 Brice Alexander MD Bernard rson MANUAL DIFFERENTIAL 2020-08-21 17:27:00 Brice Alexander MD GLUCOSE LEVEL 2020-08-21 17:27:00 Brice Alexander MD Bernard rson BLOOD UREA NITROGEN 2020-08-21 17:27:00 Brice Alexander MD ELECTROLYTE PANEL 2020-08-21 17:27:00 Brice Alexander MD derson SERUM CREATININE 2020-08-21 17:27:00 Benjamin, Brice Shrestha MD And erson .GLOMERULAR FILTRATION 2020-08-21 17:27:00 Brice Alexander MD RATE CALCIUM LEVEL TOTAL 2020-08-21 17:27:00 Brice Alexander MD ALBUMIN LEVEL 2020-08-21 17:27:00 Brice Alexander MD Bernard rson ALKALINE PHOSPHATASE 2020-08-21 17:27:00 Brice Alexander MD ALANINE AMINOTRANSFERASE 2020-08-21 17:27:00 Brice Alexander MD ASPARTATE AMINOTRANSFERASE 2020-08-21 17:27:00 Brice Alexander MD TOTAL PROTEIN 2020-08-21 17:27:00 Brice Alexander MD Bernard rson FRACTIONATED BILIRUBIN 2020-08-21 17:27:00 Brice Alexander MD ABORH 2020-08-21 17:27:00 Brice Alexander MD Bernard rson ANTIBODY SCREEN 2020-08-21 17:27:00 Brice Alexander MD Bernard rson CLOT EXPIRATION DATE 2020-08-21 17:27:00 Brice Alexander MD TMP INTERPRETATION 2020-08-21 17:27:00 Brice Alexander MD nderson ANTIBODY SCREEN NEGATIVE EKG, 12-LEAD (PORTABLE) 2020-08-21 00:00:00 Brice Alexander MD IR PLACEMENT OF 2020-07-29 19:48:00 Kirstie Joyner MD INTERSTITIAL DEVICE FOR PROSTATE XRT IR TRANSPERINEAL PLACEMENT 2020-07-29 19:48:00 Kirstie Joyner BIODEGRADABLE MATERIAL PATHOLOGY BIOPSY 2020-07-28 17:29:00 Milad Rachel MD Andzoraidao n INTERPRETATION Mian DIAGNOSTIC FLEXIBLE 2020-07-28 17:04:00 Milad Rachel MD Bernard rson COLONOSCOPY PROXIMAL TO Mian SPLENIC FLEXURE ENDOSCOPY NOTE RESULTS 2020-07-28 16:24:14 MD Jailyn Trevino nderson Mian PROSTATE SPECIFIC ANTIGEN 2020-07-28 15:51:00 Kirstie Joyner MD TESTOSTERONE LEVEL 2020-07-28 15:51:00 Kirstie Joyner MD on COMPLETE BLOOD COUNT W/ 2020-07-28 15:51:00 Kateryna Gu MD DIFFERENTIAL CARBON DIOXIDE LEVEL 2020-07-28 15:51:00 Kateryna Gu MD CHLORIDE LEVEL 2020-07-28 15:51:00 Kateryna Gu MD Bernard rson SODIUM LEVEL 2020-07-28 15:51:00 Kateryna Gu MD Bernard rson POTASSIUM LEVEL 2020-07-28 15:51:00 Kateryna Gu MD Bernard rson SERUM CREATININE 2020-07-28 15:51:00 Kateryna Gu MD And erson BLOOD UREA NITROGEN 2020-07-28 15:51:00 Kateryna Gu MD PROTHROMBIN TIME 2020-07-28 15:51:00 Kateryna Gu MD And erson GLUCOSE, RANDOM 2020-07-28 15:51:00 Kateryna Gu MD Bernard rson TYPE AND SCREEN 2020-07-28 15:51:00 Kateryna Gu MD Bernard rson SERUM CREATININE 2020-07-28 15:51:00 Kateryna Gu MD And erson .GLOMERULAR FILTRATION 2020-07-28 15:51:00 Kateryna Gu MD RATE Results CBC 2020-07-28 15:51:00 Kateryna Gu MD Bernard rson ABORH 2020-07-28 15:51:00 Kateryna Gu MD Bernard rsmarycarmen MANUAL DIFFERENTIAL 2020-07-28 15:51:00 Kateryna Gu MD ANTIBODY SCREEN 2020-07-28 15:51:00 Kateryna Gu MD Bernard rsmarycarmen ANION GAP 2020-07-28 15:51:00 Kateryna Gu MD Bernard rson CLOT EXPIRATION DATE 2020-07-28 15:51:00 Kateryna Gu MD TMP INTERPRETATION 2020-07-28 15:51:00 Kateryna Gu MD nderson ANTIBODY SCREEN NEGATIVE COVID-19 (SARS-COV-2) 2020-07-27 15:34:00 Paola Rodriguez MD And erson PCR-ASYMPTOMATIC MC CT CHEST ABDOMEN PELVIS W 2020-07-15 23:44:43 Sanjuanita Lerma MD CONTRAST NM BONE SCAN WHOLE BODY 2020-07-15 18:56:08 Sanjuanita Lerma MD ALANINE AMINOTRANSFERASE 2020-07-15 16:27:00 Sanjuanita Lerma MD ALBUMIN LEVEL 2020-07-15 16:27:00 Sanjuanita Lerma MD ALKALINE PHOSPHATASE 2020-07-15 16:27:00 Sanjuanita Lerma MD Bernard [facility] ASPARTATE AMINOTRANSFERASE 2020-07-15 16:27:00 Sanjuanita Lerma BLOOD UREA NITROGEN 2020-07-15 16:27:00 Sanjuanita Lerma MD son CALCIUM LEVEL TOTAL 2020-07-15 16:27:00 Sanjuanita Lerma MD son COMPLETE BLOOD COUNT W/ 2020-07-15 16:27:00 Sanjuanita Lerma MD DIFFERENTIAL SERUM CREATININE 2020-07-15 16:27:00 Sanjuanita Lerma MD ELECTROLYTE PANEL 2020-07-15 16:27:00 Sanjuanita Lerma MD n FRACTIONATED BILIRUBIN 2020-07-15 16:27:00 Sanjuanita Lerma MD derson GLUCOSE, RANDOM 2020-07-15 16:27:00 Sanjuanita Lerma MD LACTATE DEHYDROGENASE 2020-07-15 16:27:00 Sanjuanita Lerma MD And erson MAGNESIUM LEVEL 2020-07-15 16:27:00 Sanjuanita Lerma MD PHOSPHORUS LEVEL 2020-07-15 16:27:00 Sanjuanita Lerma MD PROSTATE SPECIFIC ANTIGEN 2020-07-15 16:27:00 Sanjuanita Lerma MD TESTOSTERONE LEVEL 2020-07-15 16:27:00 Sanjuanita Lermaers on TOTAL PROTEIN 2020-07-15 16:27:00 Sanjuanita Lerma MD VITAMIN D 25 HYDROXY LEVEL 2020-07-15 16:27:00 Sanjuanita Lerma SERUM CREATININE 2020-07-15 16:27:00 Sanjuanita Lerma MD .GLOMERULAR FILTRATION 2020-07-15 16:27:00 Sanjuanita Lerma MD RATE Results CBC 2020-07-15 16:27:00 Sanjuanita Lerma MD MANUAL DIFFERENTIAL 2020-07-15 16:27:00 Sanjuanita Lermaer son ALANINE AMINOTRANSFERASE 2020-05-16 12:34:00 Reginaldo Padilla MD ALBUMIN LEVEL 2020-05-16 12:34:00 Reginaldo Padilla MD ALKALINE PHOSPHATASE 2020-05-16 12:34:00 Reginaldo Padilla MD Bernard rson ASPARTATE AMINOTRANSFERASE 2020-05-16 12:34:00 Reginaldo Padilla BLOOD UREA NITROGEN 2020-05-16 12:34:00 Reginaldo Padilla MD CALCIUM LEVEL TOTAL 2020-05-16 12:34:00 Reginaldo Padilla MD CARCINOEMBRYONIC ANTIGEN 2020-05-16 12:34:00 Reginaldo Padilla MD COMPLETE BLOOD COUNT W/ 2020-05-16 12:34:00 Reginaldo Padilla MD nderson DIFFERENTIAL SERUM CREATININE 2020-05-16 12:34:00 Reginaldo Padilla MD ELECTROLYTE PANEL 2020-05-16 12:34:00 Reginaldo Padilla MD Andzoraidao n FRACTIONATED BILIRUBIN 2020-05-16 12:34:00 Reginaldo Padilla MD derson GLUCOSE, RANDOM 2020-05-16 12:34:00 Reginaldo Padilla MD LACTATE DEHYDROGENASE 2020-05-16 12:34:00 Reginaldo Padilla MD And erson MAGNESIUM LEVEL 2020-05-16 12:34:00 Reginaldo Padilla MD PHOSPHORUS LEVEL 2020-05-16 12:34:00 Reginaldo Padilla MD PROSTATE SPECIFIC ANTIGEN 2020-05-16 12:34:00 Reginaldo Padilla MD TOTAL PROTEIN 2020-05-16 12:34:00 Reginaldo Padilla MD SERUM CREATININE 2020-05-16 12:34:00 Reginaldo Padilla MD .GLOMERULAR FILTRATION 2020-05-16 12:34:00 Reginaldo Padilla MDson RATE Results CBC 2020-05-16 12:34:00 Reginaldo Padilla MD MANUAL DIFFERENTIAL 2020-05-16 12:34:00 Reginaldo Padilla MD Dave son TESTOSTERONE LEVEL 2020-05-16 12:31:00 Reginaldo Padilla MD Nathan on VITAMIN D 25 HYDROXY LEVEL 2020-05-16 12:31:[address] SOFT TISSUE NECK W 2020-04-22 06:43:00 Otoniel Aiken MD And celena CONTRAST XR CHEST 1 VW 2020-04-22 05:28:47 Otoniel Aiken MD POC VENOUS BLOOD GAS + 2020-04-22 04:21:00 Otoniel Aiken MD LACTATE URINE CULTURE 2020-04-22 04:16:00 Otoniel Aiken MD BLOODCULTURE 2020-04-22 04:16:00 Otoniel Aiken MD COMPLETE BLOOD COUNT W/ 2020-04-22 04:16:00 Otoniel Aiken MD DIFFERENTIAL COMPREHENSIVE METABOLIC 2020-04-22 04:16:00 Otoniel Aiken MD PANEL MAGNESIUM LEVEL 2020-04-22 04:16:00 Otoniel Aiken MD PHOSPHORUS LEVEL 2020-04-22 04:16:00 Otoniel Aiken MD HC PROCALCITONIN (PCT) 2020-04-22 04:16:00 Otoniel Aiken MD CARDIAC PANEL 2020-04-22 04:16:00 Otoniel Aiken MD NT PRO BNP 2020-04-22 04:16:00 Otoniel Aiken MD PROTHROMBIN TIME 2020-04-22 04:16:00 Otoniel Aiken MD APTT 2020-04-22 04:16:00 Otoniel Aiken MD D DIMER 2020-04-22 04:16:00 Otoniel Aiken MD URINALYSIS WITH 2020-04-22 04:16:00 Otoniel Aiken MD MICROSCOPIC IF INDICATED Results CBC 2020-04-22 04:16:00 Otoniel Aiken MD MANUAL DIFFERENTIAL 2020-04-22 04:16:00 [facility] GLUCOSE LEVEL 2020-04-22 04:16:00 Otoniel Aiken MD BLOOD UREA NITROGEN 2020-04-22 04:16:00 [facility] ELECTROLYTE PANEL 2020-04-22 04:16:00 Otoniel Aiken MD n SERUM CREATININE 2020-04-22 04:16:00 Otoniel Aiken MD .GLOMERULAR FILTRATION 2020-04-22 04:16:00 Otoniel Aiken MD RATE CALCIUM LEVEL TOTAL 2020-04-22 04:16:00 Otoniel Aiken MD [facility] ALBUMIN LEVEL 2020-04-22 04:16:00 Otoniel Aiken MD ALKALINE PHOSPHATASE 2020-04-22 04:16:00 Otoniel Aiken MD rson ALANINE AMINOTRANSFERASE 2020-04-22 04:16:00 Otoniel Aiken MD ASPARTATE AMINOTRANSFERASE 2020-04-22 04:16:00 Otoniel Aiken TOTAL PROTEIN 2020-04-22 04:16:00 Otoniel Aiken MD FRACTIONATED BILIRUBIN 2020-04-22 04:16:00 Otoniel Aiken MD URINALYSIS MICROSCOPIC 2020-04-22 04:16:00 Otoniel Aiken MD EKG, 12-LEAD (PORTABLE) 2020-04-22 00:00:00 Otoniel Aiken MD nderson ECHOCARDIOGRAM 2D COMPLETE 2020-04-09 16:19:36 Sanjuanita Lerma MRI PELVIS W WO CONTRAST 2020-04-09 15:13:09 Sanjuanita Lerma MD PROSTATE ALANINE AMINOTRANSFERASE 2020-04-09 00:35:00 Sanjuanita Lerma MD ALBUMIN LEVEL 2020-04-09 00:35:00 Sanjuanita Lerma MD ALKALINE PHOSPHATASE 2020-04-09 00:35:00 Sanjuanita Lerma MD Bernard rson ASPARTATE AMINOTRANSFERASE 2020-04-09 00:35:00 Sanjuanita Lerma BLOOD UREA NITROGEN 2020-04-09 00:35:00 Sanjuanita Lerma MD son CALCIUM LEVEL TOTAL 2020-04-09 00:35:00 Sanjuanita Lermaer son COMPLETE BLOOD COUNT W/ 2020-04-09 00:35:00 Sanjuanita Lerma MD nderson DIFFERENTIAL SERUM CREATININE 2020-04-09 00:35:00 Sanjuanita Lerma MD ELECTROLYTE PANEL 2020-04-09 00:35:00 Sanjuanita Lerma MDo n FRACTIONATED BILIRUBIN 2020-04-09 00:35:00 Sanjuanita Lerma MDson GLUCOSE, RANDOM 2020-04-09 00:35:00 Sanjuanita Lerma MD LACTATE DEHYDROGENASE 2020-04-09 00:35:00 Sanjuanita Lerma MD And erson MAGNESIUM LEVEL 2020-04-09 00:35:00 Sanjuanita Lerma MD PHOSPHORUS LEVEL 2020-04-09 00:35:00 Sanjuanita Lerma MD PROSTATE SPECIFIC ANTIGEN 2020-04-09 00:35:00 Sanjuanita Lerma MD TESTOSTERONE LEVEL 2020-04-09 00:35:00 Sanjuanita Lermaers on TOTAL PROTEIN 2020-04-09 00:35:00 Sanjuanita Lerma MD SERUM CREATININE 2020-04-09 00:35:00 Sanjuanita Lerma MD .GLOMERULAR FILTRATION 2020-04-09 00:35:00 Sanjuanita Lerma MD RATE Results CBC 2020-04-09 00:35:00 Sanjuanita Lerma MD MANUAL DIFFERENTIAL 2020-04-09 00:35:00 Sanjuanita Lerma MD Dave son MRI CERVICAL THORACIC 2020-04-09 00:04:00 Sanjuanita Lerma MD And celena LUMBAR SPINE W WO CONTRAST EXTERNAL PROVIDER RECORDS 2019-10-04 05:01:00 Doctor Unassigned, [facility] Name [facility] [place] EXTERNAL PROVIDER RECORDS 2019-10-03 05:01:00 Doctor Unassigned, [facility] Name [facility] EXTERNAL PROVIDER RECORDS 2019-09-28 05:01:00 Doctor Unassigned, [facility] SURGICAL PATHOLOGY EXAM 2019-09-14 15:52:00 Pako Lopez [facility] 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 2019-09-14 05:01:00 Doctor Unasschidi, [facility] PROSTATIC SPECIFIC ANTIGEN 2019-09-03 21:05:00 Pako Lopez [facility] URINE CULTURE 2019-09-03 21:05:00 Pako Lopez [place] [facility] DISCLOSURE AND CONSENT, Doctor Unajayro [facility] MEDICAL AND SURGICAL [place] [facility] PROCEDURES Plan of Care Planned Activity Planned Date Details Comments Source Future Scheduled Test 2020-07-26 00:00:00 COVID-19 Vaccination (2 MD Skip - Booster for Kendra series) [code = COVID-19 Vaccination (2 - Booster for Kendra series)] Encounters Start End Encounter Admission Attending Care Care Encounter Source Date/Time Date/Time Type Type Clinicians Facility Department ID 2020-10-31 2020-10-31 Outpatient GILMA MORENO MDA MDA [id number] 11:32:23 11:32:23 AUBREY zuñiga n 2020-10-27 2020-10-27 Outpatient GILMA FRIED MDA MDA [id number] 15:24:16 16:01:02 JORJE zhengo n 2020-10-17 2020-10-17 Outpatient GILMA ELMORE MDA MDA [id number] 12:53:40 23:59:00 ERWIN santacruz 2020-10-16 2020-10-16 Outpatient GILMA ELMORE MDA MDA [id number] 12:10:00 23:59:00 ERWIN sharp n 2020-10-15 2020-10-15 Outpatient GILMA ELMORE MDA MDA [id number] MD 12:30:00 23:59:00 ERWIN Nathan o n 2020-10-14 2020-10-[address] [facility], MDA MDA [id number] MD 11:21:52 23:59:00 ERWIN Nathan o n 2020-10-13 2020-10-[address] [facility], MDA MDA [id number] MD 12:26:36 23:59:00 ERWIN Nathan o n 2020-10-10 2020-10-[address] [facility], MDA MDA [id number] MD 11:40:24 23:59:00 ERWIN Nathan o n 2020-10-09 2020-10-[address] [facility], MDA MDA [id number] MD 11:40:00 23:59:00 ERWIN Nathan o n 2020-10-08 2020-10-[address] [facility], MDA MDA [id number] MD 12:05:00 23:59:00 ERWIN Nathan o n 2020-10-08 2020-10-08 Outpatient [facility], MDA MDA [id number] MD 10:15:00 12:04:00 BOONE-BRANDEN Bernard rso n 2020 [address] [facility], MDA MDA [id number] MD 11:55:00 23:59:00 ERWIN Nathan o n 2020 2020 Outpatient [facility], MDA MDA [id number] MD 09:55:27 11:49:27 HAILY And erso n 2020-10-06 2020-10-[address] [facility], MDA MDA [id number] MD 11:30:00 23:59:00 ERWIN Nathan o n 2020-10-03 2020-10-[address] [facility], MDA MDA [id number] MD 10:08:21 23:59:00 ERWIN Nathan o n 2020-10-01 2020-10-01 Outpatient [facility], MDA MDA [id number] MD 10:14:10 23:59:00 BOONE-BRANDEN Bernard rso n 2020-09-30 2020-09-[address] [facility], MDA MDA [id number] MD 11:27:01 23:59:00 ERWIN Nathan o n 2020-09-29 2020-09-[address] [facility], MDA MDA [id number] MD 11:30:00 23:59:00 ERWIN Nathan o n 2020-09-26 2020-09-[address] [facility], MDA MDA [id number] MD 12:00:00 23:59:00 ERWIN Nathan o n 2020-09-25 2020-09-[address] [facility], MDA MDA [id number] MD 11:50:00 23:59:00 ERWIN Nathan o n 2020-09-24 2020-09-[address] [facility], MDA MDA [id number] MD 11:07:31 23:59:00 ERWIN Nathan o n 2020-09-24 2020-09-24 Outpatient [facility], MDA MDA [id number] MD 10:15:00 11:06:00 [facility] Bernard rso n 2020-09-24 2020-09-[address] [facility], MDA MDA [id number] MD 10:00:00 10:14:00 ERWIN Nathan o n 2020-09-24 2020-09-[address] [facility], MDA MDA [id number] MD 08:56:38 09:14:00 ERWIN Nathan o n 2020-09-23 2020-09-[address] [facility], MDA MDA [id number] MD 12:01:45 23:59:00 ERWIN Nathan o n 2020-09-22 2020-09-[address] [facility], MDA MDA [id number] MD 13:23:44 23:59:00 ERWIN Nathan o n 2020-09-22 2020-09-[address] [facility], MDA MDA [id number] MD 12:16:14 13:22:00 ERWIN Nathan o n 2020-09-19 2020-09-[address] [facility], MDA MDA [id number] MD 12:00:00 23:59:00 ERWIN Nathan o n 2020-09-182020-09-[address] [facility], MDA MDA [id number] MD 12:00:00 23:59:00 ERWIN Nathan o n 2020-09-17 2020-09-[address] [facility], MDA MDA [id number] MD 11:01:21 23:59:00 ERWIN Nathan o n 2020-09-17 2020-09-17 Outpatient [facility], MDA MDA [id number] MD 10:15:00 11:00:00 BOONE-BRANDEN Bernard rso n 2020-09-16 2020-09-[address] [facility], MDA MDA [id number] MD 12:07:04 23:59:00 ERWIN Nathan o n 2020-09-12 2020-09-[address] [facility], MDA MDA [id number] MD 12:40:00 23:59:00 ERWIN Nathan o n 2020-09-11 2020-09-[address] [facility], MDA MDA [id number] MD 12:40:00 23:59:00 ERWIN Nathan o n 2020-09-10 2020-09-[address] [facility], MDA MDA [id number] MD 12:35:00 23:59:00 ERWIN Nathan o n 2020-09-10 2020-09-10 Outpatient [facility], MDA MDA [id number] MD 10:10:54 12:34:00 BOONE-BRANDEN Bernard rso n 2020-09-09 2020-09-[address] [facility], MDA MDA [id number] MD 12:50:00 23:59:00 ERIWN Nathan o n 2020-09-08 2020-09-[address] [facility], MDA MDA [id number] MD 12:40:00 23:59:00 ERWIN Nathan o n 2020-09-05 2020-09-[address] [facility], MDA MDA [id number] MD 12:35:00 23:59:00 ERWIN Nathan o n 2020-09-04 2020-09-[address] [facility], MDA MDA [id number] MD 12:35:00 23:59:00 ERWIN Nathan o n 2020-09-03 2020-09-03 Outpatient [facility], MDA MDA [id number] MD 11:45:56 23:59:00 ERWIN Nathan o n 2020-09-03 2020-09-03 Outpatient [facility], MDA MDA [id number] MD 10:45:00 11:44:00 DEDE Wagner rso n 2020-09-02 2020-09-02 [facility] MDA [id number] MD 10:15:00 23:59:00 ERWIN Nathan o n 2020-09-01 2020-09-01 Outpatient [facility], MDA MDA [id number] MD 11:30:00 23:59:00 ERWIN Nathan o n 2020-04-06 2020-04-06 Patient Bryson [facility] 1.2.840.114 [id number] 00:00:00 00:00:00 Outreach [facility] [id number] i ty [facility] [id number] Ryanne BARILLAS [phone] [place] [address] [address] 2020-02-13 2020-02-13 Outpatient [facility], MDA MDA [id number] 11:48:27 16:35:54 ERWIN Nathan o n 2020-02-13 2020-02-13 Outpatient SAMI, MDA MDA [id number] 14:24:42 14:24:42 SANJUANITA Rayaers o n 2020-02-13 2020-02-13 Outpatient EL MDA MDA [id number] 11:45:49 11:46:05 Nathan o n 2020-02-11 2020-02-11 [facility] MDA MDA [id number] 10:30:46 10:59:09 ERWIN Nathan o n 2019-12-14 2019-12-14 Telephone Pako Lopez [facility] 1.2.840.114 [id number] [facility] 00:00:00 00:00:00 Formerly [facility] [id number] it y of Mayank Silva [id number] Ryanne s Mario [phone] [place] [address] [address] Office Building 2019-11-26 2019-11-26 Telephone Pako Lopez 1.2.840.114 [id number] Univers 00:00:00 00:00:00 [facility] [id number] [id number] [phone] [facility] [address] [place] [address] 2019-11-16 2019-11-16 Telephone Pako Lopez 1.2.840.114 [id number] Univers 00:00:00 00:00:00 [facility] [id number] [id number] [phone] [facility] [address] 2019-11-14 2019-11-14 Telephone Pako Lopez 1.2.840.114 [id number] Univers 00:00:00 00:00:00 [facility] [id number] [id number] [phone] [facility] [address] 2019-10-11 2019-10-24 Office Pako Lopez SCANA 1.2.840.114 [id number] Univers 13:15:19 09:14:14 Visit [facility] [id number] [place] [phone] [address] Office Building 2019-10-24 2019-10-24 Telephone Pako Lopez 1.2.840.114 [id number] Univers 00:00:00 00:00:00 [facility] 350.1.13.10 [place] [phone] [address] Office Building 2019-10-24 2019-10-24 Patient Thai Silver 1.2.840.114 [id number] Univers 00:00:00 00:00:00 Outreach Jaclyn Diaz 350.1.13.10 i [place] [phone] [address] 2019-10-24 2019-10-24 Patient Petra Bai 1.2.840.114 [id number] Univers 00:00:00 00:00:00 Outreach E Diaz 350.1.13.10 [place] [phone] [address] 2019-10-24 2019-10-24 Telephone Lopez, [facility] 1.2.840.114 [id number] Univers 00:00:00 00:00:00 un Health [id number] [place] [phone] [address] Office Building 2019-10-23 2019-10-23 Telephone Lopez, [facility] 1.2.840.114 [id number] Univers 00:00:00 00:00:00 un Health 350.1.13.10 [place] [phone] [address] Office [facility] 2019-10-22 2019-10-22 Telephone Lopez, [facility] 1.2.840.114 [id number] Univers 00:00:00 00:00:00 un Health 350.1.13.10 [place] [phone] [address] Office Building 2019-10-19 2019-10-19 Telephone Lopez, [facility] 1.2.840.114 [id number] Univers 00:00:00 00:00:00 un Health 350.1.13.10 [place] [phone] [address] Office Building 2019-10-18 2019-10-18 Outpatient R LOPEZ, [facility] [id number] Univers 14:00:00 14:00:00 Formerly [facility] 2019-10-11 2019-10-11 Outpatient R LOPZE, [facility] [id number] Univers 13:00:00 13:00:00 [facility] 2019-10-11 2019-10-11 Outpatient R LOPEZ, [facility] [id number] Univers 13:00:00 13:00:00 ity of [facility] 2019-10-04 2019-10-04 Telephone Pako Lopez 1.2.840.114 [id number] Univers 00:00:00 00:00:00 Shun RAHAT 350.1.13.10 it y of [facility] 4.2.7.2.686 [place] [phone] [address] 2019-10-04 2019-10-04 Orders Doctor KYE 1Jf2.840.114 [id number] Univers 00:00:00 00:00:00 Only Unassigned, RAHAT 350.1.13.10 ity of [facility] 4.2.7.2.686 [place] as [phone] [address] 2019-10-03 2019-10-03 Outpatient R PAKO LOPEZ [facility] [id number] Univers 08:00:00 08:00:00 ity of [facility] 2019-10-03 2019-10-03 Vianey Lopez [facility] 1.2.840.114 [id number] Univers 00:00:00 00:00:00 [facility] 350.1.13.10 it y of [facility] 4.2.7.2.[place] [phone] [address] Office Building 2019-10-03 2019-10-03 Orders Doctor KYE Christina2.840.114 [id number] Univers 00:00:00 00:00:00 Only Unassigned, RAHAT 350.1.13.10 ity of [facility] 4.2.7.2.686 [place] [id number] [address] 2019-09-28 2019-09-28 Orders Doctor KYE 1.2.840.114 [id number] Univers 00:00:00 00:00:00 Only Unassigned, RAHAT 350.1.13.10 ity of [facility] 4.2.7.2.686 [place] [phone] [address] 2019-09-23 2019-09-23 Refill John [facility] 1.2.840.114 [id number] Univers 00:00:00 00:00:00 [facility] 350.1.13.10 it [place] [phone] [address] Office Building 2019-09-21 2019-09-21 Spikemaking Supervisor Draw, Clc-Bls Lab [facility] 1.2.8 40.114 [id number] Univers 12:13:57 12:28:57 Visit Pako Lopez [facility] 350.1.13 .10 ity of [place] [phone] [address] Office Building 2019-09-21 2019-09-21 Office John [facility] 1.2.840.114 [id number] Univers 11:04:12 11:34:12 Visit [facility] Health 350.1.13.10 it [place] [phone] [address] Office [facility] 2019-09-21 2019-09-21 Outpatient R JOHN [facility] [id number]-20 Univers 10:30:00 10:30:00 [id number] ity of [facility] 2019-09-21 2019-09-21 Outpatient R JOHN [facility] [id number] Univers 10:30:00 10:30:00 ity of [facility] 2019-09-21 2019-09-21 Telephone Pako Lopez 1.2.840.114 [id number] Univers 00:00:00 [facility]:00[facility]00 [facility] 350.1.13.10 [facility] of [facility] 4.2.7.2.686 [place] [phone] [address] 2019-09-21 2019-09-21 Telephone John [facility] 1.2.840.114 [id number] Univers 00:00:00 00:00:00 [facility] 350.1.13.10 it [place] [phone] [address] Office Building 2019-09-18 2019-09-18 Telephone Pako Lopez 1.2.840.114 [id number] Univers 00:00:00 00:00:00 Shun RAHAT 350.1.13.10 it y of [facility] 4.2.7.2.686 [place] [phone] [address] 2019-09-18 2019-09-18 Telephone Lopez, Pako FISHMAN 1.2.840.114 [id number] Univers 00:00:00 00:00:00 Timaun RAHAT 350.1.13.10 it y of [facility] 4.2.7.2.686 [place] [phone] [address] 2019-09-14 2019-09-14 Office Lopez, [facility] 1.2.840.114 [id number] Univers 09:53:55 10:46:20 Visit [facility] 350.1.13.10 it [place] [phone] [address] Office [facility] 2019-09-14 2019-09-14 Outpatient R LOPEZ, [facility] [id number] Univers 10:00:00 10:00:00 ity [facility] 2019-09-14 2019-09-14 Outpatient R LOPEZ, [facility] [id number] Univers 10:00:00 10:00:00 ity of [facility] 2019-09-14 2019-09-14 Orders Doctor FISHMAN 1.2.840.114 [id number] Univers 00:00:00 00:00:00 Only Unassigned, RAHAT 350.1.13.10 ity of [facility] 4.2.7.2.686 [place] [phone] [address] 2019-09-07 2019-09-07 Outpatient R LOPEZ, [facility] [id number] Univers 08:00:00 08:00:00 [id number] ity [facility] 2019-09-07 2019-09-07 Outpatient R LOPEZ, [facility] [id number] Univers 08:00:00 08:00:00 ity [facility] 2019-09-03 2019-09-06 [facility] 1.2.840.114 [id number] Univers 15:04:24 10:34:22 Visit [facility] 350.1.13.10 it [place] [phone] [address] Office Building 2019-09-05 2019-09-05 Patient Doctor KYE 1.2.840.114 [id number] Univers 00:00:00 00:00:00 Secure Msg Unassigned, RAHAT 350.1.13.10 ity of [facility] 4.2.7.2.686 [place] [phone] [address] 2019-09-03 2019-09-03 Spikemaking Supervisor Draw, Clc-Bls Lab [facility] 1.2.8 40.114 [id number] Univers 16:05:21 16:20:21 Visit Pako Lopez [facility] 350.1.13 .10 ity of [place] 4.2.7.2.686 [place] [phone] [address] Office Building 2019-09-03 2019-09-03 Outpatient R [facility] [id number] Univers 16:15:00 16:15:00 [id number] ity [facility] 2019-09-03 2019-09-03 Outpatient R JOHN PAKO [facility] [id number] Univers 15:00:00 15:00:00 ity of [facility] Orders Doctor KYE 1.2.840.114 [id number] Univers 00:00:00 00:00:00 Only Unassigned, RAHAT 350.1.13.10 ity of [facility] 4.2.7.2.686 [place] [phone] [address] Results Test Description Test Time Test Comments Results Result Comments Source Urine Culture 2020-09-01 03:02:02 Test Item Value Reference Range Interpretation Comme nts Final Report (test code = 8488) No growth Path Review - Urine (test code = The results have been reviewed and 8483) electronically signed by Pathologist:OTONIEL BURNETT MD #[id number] [facility] Interpretation Antibody Screen [id number] 13:45:15 Test Item Value Reference Range Interpretation Comments TMP Auto Neg At the present ABSC Interp time, patient (test code = plasma shows no ____JOSETTE ADAMS 7535) evidence of RBC HAO CASILLAS MD alloantibodies. - [id number] esteban by: JOSETTE RAMIREZ MD - [id number] Date/Time: 08.13 8:45 AM CDT Transcribed Bob e/Time: 08.31.2020 8:45 AM CDTElectronical ly Signed By: JOSETTE RAMIREZ MD - [id number] on 8:45 AM C MD ValdiviaAntibody [id number] 01:37:49 Test Item Value Reference Range Interpretation Comments ABSC. (test code = 890-4) Negative ABSC MD [id number] 01:37:48 Test Item Value Reference Range Interpretation Comments ABORh. (test code = 882-1) O POS MD ValdiviaClot Expiration [id number] 01:37:44 Test Item Value Reference Range Interpretation Comments T & S Expiration (test code = 09/02/2020 5318) MD [id number] 23:09:49 Test Item Value Reference Range Interpretation Comments TSH (test code = 1.51 See_Comment [Automated message] The 7578) system which ge nerated this result transmit esteban reference range : 0.27 - 4.20 mcunit/mL. The reference range was not used to interpr et this result as cuate l/abnormal. MD Khan [id number] 23:09:48 Test Item Value Reference Range Interpretation Comments T4 Free (test code = 7502) 1.77 ng/dL 0.93-1.70 H Lab Interpretation (test code = Abnormal 19800-8) MD ValdiviaInfluenza A/B + COVID-19 Asymptomatic- [id number] 22:53:14 Test Item Value Reference Range Interpretation Comments COVID19 Not Detected Not Detected (SARS-CoV-2) (test code = 81615-2) Influenza A (test Not Detected Not Detected code = 65459-2) Influenza B (test Not Detected Not Detected code = 38564-3) COVID19 SARS Inpatient Indication (test Admission code = 49458) Inf AB+Cov19 See Note The walter SARS- CoV-2 Comment (test & Influenza A/ B code = 19203) nucleic acid t est for use on the mu s Rachel System is a [employer] real-time RT-PC R assay intended for the simultaneou s, qualitative det ection and differentia l of SARS-CoV-2 (COVID-19), inf luenza A, and influenz a B viral RNA in nasopharyngeal swabs in transport me lester from patients suspected of hernandez ving a respiratory inf ection with one of the se viruses or poss ibly exposure to COV ID-19 by a healthcare provider. Resul ts must be interpr eted within the cont ext of all relevant cl inical and laboratory findings and sh ould not form the so le basis for a lester gnosis or treatment decision. A fac t sheet for patie nts provided by the casino floor supervisor ([employer], [employer]) can be rev iewed at: https://www.fda .gov/m edia/544649/priscila nloadA fact sheet for Health Care providers is provided by the casino floor supervisor ([employer], [employer]) and can be reviewed at: https://www.fda .gov/m edia/654460/priscila nload Influenza A and Influenza B neg ative results should be considered presumptive in samples that hernandez ve a positive SARS-C oV-2 result. If co-infection wi th influenza A or influenza B vir us is suspected in sa mples with a positive SARS-CoV-2 resu lts, the sample shou ld be re-tested with another approve d influenza test. This assay has been authorized by t [facility] for use only un ranjith Emergency Use Authorization ( EUA) in laboratories that have been CLIA-certified to perform moderate-comple xity and high-comple xity tests. The Microbiology Laboratory at [facility], CLIA Accreditation #[id number] and CAP Accreditation #[id number], verif ied the performance characteristics of this assay. Int ernal controls are us ed to monitor all sta ges of the test adis ValdiviaPartial Thromboplastin [id number] 22:52:55 Test Item Value Reference Range Interpretation Comments aPTT (test code = 31.4 See_Comment [Automate d message] The 6773) system which ge nerated this result transmit esteban reference range : 24.7 - 36.8 second(s). The reference range was not used to interpr et this result as cuate l/abnormal. MD ValdiviaProthrombin Time with [id number] 22:52:54 Test Item Value Reference Range Interpretation Comments PT (test code = 6746) 13.3 See_Comment [Auto mated message] The system which ge nerated this result transmit esteban reference range : 11.5 - 13.9 second(s). The reference range was not used to interpr et this result as cuate l/abnormal. INR (test code = 1.08 0.90-1.10 5973) MD ValdiviaFractionated [id number] 22:37:55 Test Item Value Reference Range Interpretation Comments Bili Total (test 0.3 mg/dL See_Comment Indocyanine Green (ICG) code = 5096) may cause false ly elevated biliru bin results. Total and direct bilirubin must not be measured from s amples containing indo cyanine green. False el evation of total bilirubin can be seen in patient s with IgG concentrations above 28 g/L. [Automate d message] The system ic h generated this result transmitted ref erence range: <=1.2. T he reference range was not used to interpr et this result as normal/abnormal . Bili Direct (test <0.2 See_Comment Indocyanin e Green (ICG) code = 5094) may cause false ly elevated biliru bin results. Total and direct bilirubin must not be measured from s amples containing indo cyanine green. [Automat ed message] The sy stem which generated this result transmitted ref erence range: <=0.3 mg /dL. The reference range was not used to interpr et this result as normal/abnormal . Bili Indirect (test See Note 0.0-0.9 Unable t o calculate code = 5095) Indirect Biliru bin result due to some par ameters are outside rep ortable range MD ValdiviaGlomerular Filtration [id number] 22:37:54 Test Item Value Reference Range Interpretation Comments eGFR-AA (test code 100 See_Comment Normal eG FR: >= 60 = 8062) mL/min/1.73 m2N ote: The eGFR is calculated u sing the CKD-EPI equatio n. The eGFR declines with a ge. eGFR <60 mL/min/1.73 m2 is considered as "decreased". This equation should only be used for patients 18 and older. According to th e National Kidney Found[employer] on's Kidney Disease Outcome Quality Initiative (KDO QI) classification and 2012 Kidney Disease Improving Global Outcomes (KDIGO) Clinical Practi ce Guideline, the stage of CK D should be categorized bas ed on estimated GFR. Stage Description GFR mL/min/1.73 m21 Normal or high GFR >=902 Mildly decrease d GFR 60-893a M ildly to moderately decr eased GFR 45-593b Moderat lyle to severely decrea sed GFR 30-444 Severely decreased GFR 15-295 Kid unique failure <15 [Automa esteban message] The system delicious generated this result tra nsmitted reference range : >=60 mL/min/1.73 sq. m. The reference range was not used to interpret is result as normal/abnormal . eGFR-DARIEN (test code 87 See_Comment Normal e GFR: >= 60 = 8063) mL/min/1.73 m2N ote: The eGFR is calculated u sing the CKD-EPI equatio n. The eGFR declines with a ge. eGFR <60 mL/min/1.73 m2 is considered as "decreased". This equation should only be used for patients 18 and older. According to th e National Kidney Foundati on's Kidney Disease Outcome Quality Initiative (KDO QI) classification and 2012 Kidney Disease Improving Global Outcomes (KDIGO) Clinical Practi ce Guideline, the stage of CK D should be categorized bas ed on estimated GFR. Stage Description GFR mL/min/1.73 m21 Normal or high GFR >=902 Mildly decrease d GFR 60-893a M ildly to moderately decr eased GFR 45-593b Moderat lyle to severely decrea sed GFR 30-444 Severely decreased GFR 15-295 Kid unique failure <15 [Automa esteban message] The system delicious generated this result tra nsmitted reference range : >=60 mL/min/1.73 sq. m. The reference range was not used to interpret is result as normal/abnormal . MD ValdiviaUric [id number] 22:37:53 Test Item Value Reference Range Interpretation Comments Uric Acid (test code = 7955) 3.1 mg/dL 3.4-7.0 L Lab Interpretation (test code = Abnormal 47829-0) MD ValdiviaTotal [id number] 22:37:52 Test Item Value Reference Range Interpretation Comments Total Protein (test code = 7649) 6.4 g/dL 6.4-8.3 MD ValdiviaMagnesium [id number] 22:37:49 Test Item Value Reference Range Interpretation Comments Magnesium (test code = 6359) 2.0 mg/dL 1.6-2.6 MD ValdiviaPhosphorus [id number] 22:37:48 Test Item Value Reference Range Interpretation Comments Phosphorus (test code = 6817) 4.0 mg/dL 2.5-4.5 MD ValdiviaAlkaline Mzlyqgsokws2545-72-13 22:37:47 Test Item Value Reference Range Interpretation Comments Alk Phos (test code = 4768) 76 U/L 40-129 MD ValdiviaCalcium [id number] 22:37:46 Test Item Value Reference Range Interpretation Comments Calcium Lvl (test code = 5258) 9.3 mg/dL 8.4-10.2 MD ValdiviaAnxngakpAMI6671-81-09 22:37:45 Test Item Value Reference Range Interpretation Comments ALT (test code = 18 U/L See_Comment [Automated message] The 9325) system which ge nerated this result transmit esteban reference range : <=41. The reference range was not used to interpr et this result as cuate l/abnormal. MD ValdiviaAlbumin Tirhy3648-35-70 22:37:44 Test Item Value Reference Range Interpretation Comments Albumin Lvl (test code 3.9 See_Comment [Aut omated message] The = 1868) system which ge nerated this result tra nsmitted reference range : 3.5 - 5.2 gm/dL. The refe rence range was not used to interpret this result as normal/abnormal . MD Valdivia.Serum Lmkohkhvnq9179-39-89 22:37:43 Test Item Value Reference Range Interpretation Comments Creatinine (test code = 5399) 0.77 mg/dL 0.67-1.17 MD ValdiviaAspartate Fjjfyntkryvdmvzx0034-99-31 22:37:42 Test Item Value Reference Range Interpretation Comments AST (test code = 17 U/L See_Comment [Automated message] The 4731) system which ge nerated this result transmit esteban reference range : <=40. The reference range was not used to interpr et this result as cuate l/abnormal. MD [id number] 22:37:41 Test Item Value Reference Range Interpretation Comments BUN (test code = 5055) 14 mg/dL 6-23 MD ValdiviaElectrolyte [id number] 22:37:40 Test Item Value Reference Range Interpretation Comments Sodium Lvl (test code = 139 See_Comment [Au tomated message] The 7355) system which ge nerated this result tra nsmitted reference range : 136 - 145 mEq/L. The reference range was not u sed to interpret this result as normal/abnormal . Potassium Lvl (test 4.3 See_Comment [Automa esteban message] The code = 6854) system which ge nerated this result tra nsmitted reference range : 3.5 - 5.1 mEq/L. The reference range was not u sed to interpret this result as normal/abnormal . Chloride (test code = 102 See_Comment [Auto mated message] The 5279) system which ge nerated this result tra nsmitted reference range : 98 - 107 mEq/L. The refe rence range was not u sed to interpret this result as normal/abnormal . CO2 (test code = 5227) 27 See_Comment [Aut omated message] The system which ge nerated this result tra nsmitted reference range : 22 - 29 mEq/L. The refe rence range was not u sed to interpret this result as normal/abnormal . Anion Gap (test code = 10 See_Comment [Aut omated message] The 9315) system which ge nerated this result tra nsmitted reference range : 4 - 14 mEq/L. The refe rence range was not u sed to interpret this result as normal/abnormal . MD ValdiviaGlucose [id number] 22:37:38 Test Item Value Reference Range Interpretation Comments Glucose Level (test code 101 mg/dL 70-99 H Eff ective 10/08/15, = 5699) the glucose reference inter vals have been updat ed based on [place] an Diabetes Associ ation guidelines (Standards of Medical Care in Diabetes 2016. Diabetes Care 2 016; 39: S13-S22).Fa sting blood glucose:Normal: 70 99 mg/dLImpaire d fasting glucose (increased risk for diabetes or pre-diabetes): 100 125 mg/dLDiabet es mellitus: >/=1 26 mg/dL Random bl ood glucose:Normal: 70 199 mg/dLNote: Random glucose >100 mg/dL is associ ated with increased risk for diabetes Lab Interpretation (test Abnormal code = 98985-5) MD ValdiviaJbghqsieLycyax3590-73-08 22:33:18 Test Item Value Reference Range Interpretation Comments Lipase Lvl (test code = 6165) 17 U/L 13-60 MD ValdiviaWsuouhozYrdmnhx9428-88-96 22:33:17 Test Item Value Reference Range Interpretation Comments Amylase Lvl (test code = 4806) 96 U/L 28-100 [facility] Troponin [id number] 22:24:38 Test Item Value Reference Range Interpretation Comments POC CTNI (test 0.00 ng/mL 0.00-0.08 This cTnI john t is code = 42316-0) performed by the Yiuhr-yt-Frns a nalyzer method,and the result may be differen t from the Clinical LaboratoryMetho d. Abnormal test r esults are recommended for confirmatorytes t by Clinical labora tory method. Patient s with normal testresu lts but clinically susp icious for acute myoca rdial infarctionshoul d be tested by Clini adilene Laboratory meth od. Method descript ion: The Troponin I (cTn I) uses a two-site enzyme-linked immunosorbent a ssay (SNEHA) method. Antibodies spec [facility] t roponin I (cTnI) are lo cated on an electrochemi adilene sensor fabricat ed on a silicon chip. T he whole blood is tim t into contact with th e sensors allowin g the enzyme conjugat e to dissolve into t he sample. The enz yme bound to the antibody/antige n/antibo dy sandwich hua aves the substrate relea sing an electrochemical ly detectable prod uct. The electrochemical (amperometric) sensor measures this e nzyme product which i s proportional to the concentration o f cTnI within the samp le. POC Clean Dev Yes (test code = 6672) Performing Lab [facility] (test code = [facility] [place] [address]) Clinical Lab, [address], [place], [place] [address]; Yoga Teacher: MD MD Skip RauschDifferential2021-06-19 22:08:26 Test Item Value Reference Range Interpretation Comments Neutrophil % (test code = 71.7 % 42.0-66.0 H 20914-4) Lymphocyte % (test code = 16.2 % 24.0-44.0 L 737-7) Monocyte % (test code = 8.6 % 2.0-7.0 H 744-3) Eosinophil % (test code = 2.5 % 1.0-4.0 713-8) Basophil % (test code = 0.4 % 0.0-1.0 707-0) IGRE % (test code = 0.6 % 0.0-0.4 H IGRE % c ount 95303-5) includes Metamyelocytes, Myelocytes, and Promyelocytes. Neutrophil Abs (test code 3.50 K/uL 1.70-7.30 = 753-4) Lymphocyte Abs (test code 0.79 K/uL 1.00-4.80 L = 732-8) Monocyte Abs (test code = 0.42 K/uL 0.08-0.70 743-5) Eosinophil Abs (test code 0.12 K/uL 0.04-0.40 = 712-0) Basophil Abs (test code = 0.02 K/uL 0.00-0.10 705-4) IG Abs (test code = 0.03 K/uL 0.00-0.04 98673-6) Lab Interpretation (test Abnormal code = 05881-2) MD Valdivia.[id number] 22:08:23 Test Item Value Reference Range Interpretation Comments WBC (test code = 4.9 K/uL 4.0-11.0 6690-2) RBC (test code = 789-8) 3.82 See_Comment L [Au tomated message] The system delicious generated this result transmitted ref erence range: 4.50 - 6 .00 M/uL. The refer ence range was not u sed to interpret this result as normal/abnor mal. Hgb (test code = 718-7) 11.6 See_Comment L [Au tomated message] The system delicious generated this result transmitted ref erence range: 14.0 - 1 8.0 gm/dL. The refe rence range was not u sed to interpret this result as normal/abnor mal. Hct (test code = 35.5 % 40.0-54.0 L 4544-3) MPV (test code = 787-2) 11.4 fL 4.0-10.4 H MCH (test code = 785-6) 30.4 pg 27.0-31.0 MCHC (test code = 32.7 See_Comment [Automate d message] 786-4) The system delicious generated this result transmitted ref erence range: 31.0 - 3 6.0 gm/dL. The refe rence range was not u sed to interpret this result as normal/abnor mal. RDW-SD (test code = 45.1 fL 35.1-46.3 59683-6) RDW-CV (test code = 13.4 % 12.0-15.5 788-0) Platelet count (test 145 K/uL 140-440 code = 777-3) INRBC (test code = 0.0 % See_Comment The INRBC (instrument 5974) NRBC) value ref lects the enumeration of nucleated red b lood cells contained in a 200uL sampleof whole blood analyzed by the instrument. Thi s value maydiffer from the NRBC value repo rted in a manual differential,wh ich is based on a 100 cell differential. [Automated mess age] The system delicious generated this result transmitted ref erence range: <=0.0. T he reference range was not used to int erpret this result as normal/abnormal . Lab Interpretation Abnormal (test code = 13854-3) [facility] Glucose [id number] 21:51:17 Test Item Value Reference Interpretation Comments Range POC Glucose (test 106 mg/dL 70-99 H Capillary blood code = 23062-0) samples, e.g . obtained by fingerstick, ma y have inaccurate resu lts in patients with decreased perip heral blood flow. Met hod description: Al l results are brent sured using Electrochemistr y test methodology. Th e glucose in the sample mixes with the reagents on the test strip. The reac tion produces an ruth ann ctric current. The am ount of current prod uced is proportional to the glucose concentration i n the blood. PO Sample Type (test Capillary code = 9554) Performing Lab (test [facility] Regan code = 12231) [facility] Skip Cli nical Lab, [address], [facility] [place] [address]; Yoga Teacher: Nancie Stafford MD Lab Interpretation Abnormal (test code = 97190-9) MD ValdiviaBlood Culture- Tzfyzcibyh2588-30-31 22:41:02 Test Item Value Reference Range Interpretation Comments Final Report (test No growth code = 8488) Path Review - Immunity and antibiotic Bottle/Isolator use may render culture (test code = 8499) negative. Ongoing infection requires repeat culture.The results have been reviewed and electronically signed by Pathologist:OTONIEL BURNETT MD #[id number] BEVERLEY (test code = Short draw may invalidate BEVERLEY) quantitative blood culture results.08/21/2020 1:52:33 PM CDT MD ValdiviaUrinalysis with Awrvlgodaun3547-07-08 18:18:59 Test Item Value Reference Range Interpretation Comments UA WBC (test <1 See_Comment [Automated code = 7904) message] The system which generated this result transmitted reference range : 0 - 2 /HPF. The reference range was not used to interpret this result as normal/abnormal . UA RBC (test 1 See_Comment [Automated code = 7891) message] The system which generated this result transmitted reference range : 0 - 2 /HPF. The reference range was not used to interpret this result as normal/abnormal . UA Mucous (test TRACE Not Seen-Trace code = 7887) /HPF UA Bacteria NOT SEEN NOT SEEN /HPF (test code = 7870) UA Squam Epi NOT SEEN None-Occasional (test code = /HPF 7896) BEVERLEY (test code Some reporting = BEVERLEY) parameters within the Urinalysis test have changed due to the implementation of new instrumentation in the [facility], allowing greater sensitivity of measurement. Urinalysis results reported by the [facility] using existing instrumentation, as well as Urinalysis testing performed manually or by backup methodology at the [facility] will remain relatively unchanged. New reporting parameters and units will now be reported for all campuses. MD ValdiviaUrinalysis w/Microscopic if Rquqtgznq4583-07-17 18:14:16 Test Item Value Reference Range Interpretation Comments UA Color (test code = 7877) Straw Straw-Yellow UA Appear (test code = 7868) Clear Clear UA Glucose (test code = 7881) NEG NEG mg/dL UA Bili (test code = 7871) NEG NEG UA Ketones (test code = 7884) NEG NEG mg/dL UA Spec Grav (test code = 7894) 1.008 1.003-1.035 UA Blood (test code = 7872) Small NEG A UA pH (test code = 7909) 7.0 5.0-9.0 UA Protein (test code = 7890) NEG NEG mg/dL UA Urobilinogen (test code = 7903) NEG NEG UA Nitrite (test code = 7888) NEG NEG UA Leuk Est (test code = 7886) NEG NEG Lab Interpretation (test code = Abnormal 86833-1) MD Lionel Jack (In-House)2020-08-22 05:25:59 Test Item Value Reference Range Interpretation Comments Troponin T (test code = 42 ng/L See_Comment H < 19 ng/L 9384) Michael ggest retest at 3 to 6 hours later to rule o ut myocardial infarction >= 1 9 to <=52 ng/L Possible myocar dial injury. Sugges t retest at 3 teetee rs. - a change of < 20 ng/L, retest at 6 teetee rs - a change of >= 20 ng/L, suggestive of myocardial infarction > 52 ng/L Suggest surinder of myocardial infa rction Critical value will be reported when c Paddy is > 52 ng/L and o nly reported for e first in a series. He molyzed specimens with Hemolysis Index >100 (100 mg/dl or m oderate hemolysis) may cause interferences a nd falsely low res ults. [Automated mess age] The system delicious generated this result transmitted ref erence range: <=18. Th e reference range was not used to int erpret this result as normal/abnormal . Lab Interpretation Abnormal (test code = 58017-1) MD ValdiviaRespiratory Viral Panel + COVID-19, Nasopharyngeal Dkse9390-85-48 19:12:52 Test Item Value Reference Range Interpretation Comments Adenovirus (test code = Not Detected Not Detected 2646) Coronavirus 229E (test Not Detected Not Detected code = 5349) Coronavirus HKU1 (test Not Detected Not Detected code = 5350) Coronavirus NL63 (test Not Detected Not Detected code = 5351) Coronavirus OC43 (test Not Detected Not Detected code = 5352) COVID19 (SARS-CoV-2) Not Detected Not Detected (test code = 87667-0) Human Metapneumovirus Not Detected Not Detected (test code = 6401) Human Not Detected Not Detected Rhinovirus/Enterovirus (test code = 7212) Influenza A (test code Not Detected Not Detected = 5618) Influenza A H1 (test Not Detected Not Detected code = 5619) Influenza A H1 2009 Not Detected Not Detected (test code = 5620) Influenza A H3 (test Not Detected Not Detected code = 5621) Influenza B (test code Not Detected Not Detected = 5622) Parainfluenza 1 (test Not Detected Not Detected code = 6779) Parainfluenza 2 (test Not Detected Not Detected code = 6780) Parainfluenza 3 (test Not Detected Not Detected code = 6781) Parainfluenza 4 (test Not Detected Not Detected code = 6782) Respiratory Syncytial Not Detected Not Detected Virus (test code = 7157) Bordetella Not Detected Not Detected Parapertussis (test code = 25827) Bordetella pertussis Not Detected Not Detected (test code = 4854) Chlamydiophila Not Detected Not Detected pneumoniae (test code = 5139) Mycoplasma pneumoniae Not Detected Not Detected (test code = 6203) BEVERLEY (test code = BEVERLEY) The BioFire RP2.1 is a real-time, nested multiplexed polymerase chain reaction test designed to simultaneously identify nucleic acids from 22 different viruses and bacteria associated with respiratory tract infection, including SARS-CoV-2, from a single nasopharyngeal swab (EMERGENCY TELECOMMUNICATIONS DISPATCHER) specimen. Specifically, the SARS-CoV-2 primers contained in the BioFire RP2.1 are designed to detect RNA from the SARS-CoV-2 in nasopharyngeal swabs in transport media from patients who are suspected of COVID-19 by their healthcare provider. Results must be interpreted within the context of all relevant clinical and laboratory findings and should not form the sole basis for a diagnosis or treatment decision. This assay has been approved by the FDA for use only under Emergency Use Authorization (EUA) in laboratories that have been CLIA-certified to perform moderate-complexity and high-complexity tests. The Microbiology Laboratory at [facility], CLIA Accreditation #[id number] and CAP Accreditation #[id number], verified the performance characteristics of this assay. Microbiology Laboratory at [facility] performs the assay using the [employer] System. Internal controls are used to monitor all stages of the test process. MD Leal Purdn7939-56-55 18:16:36 Test Item Value Reference Range Interpretation Comments D-Dimer (test code 0.30 See_Comment The cut o ff value for = 5419) exclusion of ve nous thromboembolism is <0.51 mcg/mL FEUs (fibrinoge n equivalent units). [Autom ated message] The system delicious generated this result tra nsmitted reference range : 0.10 - 0.50 mcg/ml FEU. The reference range was not u sed to interpret this result as normal/abnormal . MD ValdiviaSucdwiepOmzxwsctla4487-61-65 18:16:23 Test Item Value Reference Range Interpretation Comments Fibrinogen (test code = 5610) 324 mg/dL 214-503 [facility] Chem 8 without Hemoglobin and Lkyqgradjr1278-49-33 18:08:40 Test Item Value Reference Range Interpretation Comments POC NA (test code = 140 See_Comment [Automa esteban message] 17546-7) The system delicious generated this result transmitted ref erence range: 138 - 14 6 mEq/L. The refe rence range was not u sed to interpret this result as normal/abnor mal. POC K (test code = 3.6 See_Comment Method de scription: 45198-2) The i-STAT is a n analyzer used f or in vitro quantific ation of various anal ytes in whole blood. The device uses a s kira disposable cart ridge which contains microfabricated sensors, a calibration elaine ution, fluidics system , and a waste chamber . Each test cartridge contains chemic ally sensitive biose nsors on a Sonian ip that are config ured to perform spec ific tests. The microfabricated sensors measure analyte concent ration by an electroch emical assay. [Automa esteban message] The sy stem which generated this result transmit esteban reference range : 3.5 - 4.9 mEq/L. Th e reference range was not used to int erpret this result as normal/abnormal . POC CL (test code = 99 See_Comment [Automa esteban message] 2068-05) The system delicious generated this result transmitted ref erence range: 98 - 109 mEq/L. The refe rence range was not u sed to interpret this result as normal/abnor mal. POC VTCO2 (test code 26 See_Comment [Autom ated message] = 2026-03) The system delicious generated this result transmitted ref erence range: 24 - 29 mEq/L. The reference r laurel was not used to interpret this result as normal/abnor mal. POC Anion Gap (test 19 mmol/L 12-31 code = 35639) POC BUN (test code = 14 mg/dL 11-06 6299-2) POC Crea (test code 0.9 mg/dL 0.6-1.3 Medicati ons, = 49821-3) especially hydroxyurea or supplements, michael ch as ascorbate, can interfere with test results causing a falsely and significantly h igher result than exp ected. If a problem is suspected with a patient's resul t, a sample should b e sent to the laborato for confirmatory te sting. Method descript ion: The i-STAT is a n analyzer used f or in vitro quantific ation of various anal ytes in whole blood. The device uses a s kira disposable cart ridge which contains microfabricated sensors, a calibration elaine Planitax, fluidics system , and a waste chamber . Each test cartridge contains chemic ally sensitive biose nsors on a Sonian ip that are config ured to perform spec ific tests. The microfabricated sensors measure analyte concent ration by an electroch emical assay. POC eGFR-AA (test 94 See_Comment Normal eGF R >= 60 code = 52068-8) mL/min/1.73 m2 The eGFR is calcula esteban using the CKD-E PI equation. The e GFR declines with a ge. eGFR <60 mL/min /1.73 m2 is considere d as "decreased" Thi s equation should only be used for pat ients 18 and older. According to th e National Kid[employer] Foundation's Ki dney Disease Outcome Quality Initiat surinder (KDOQI) classification and 2012 Kidney Dis ease Improving Globa l Outcomes (KDIGO ) Clinical Practi ce Guideline, the stage of CKD should b e categorized bas ed on estimated GFR. Stage Description GFR mL/min/1.73 m21 Kidney damage w ith normal or high GFR >=902 Kidney d amage with mild decre ase in GFR 60-893a Mild to moderate dec rease in GFR 45-5 93b Moderate to sev ere decrease in GFR 30-444 Severe decrease in GFR 15-295 Kidney f ailure <15 (or lester lysis) [Automated Putney] The system delicious generated this result transmitted ref erence range: >=60 mL/min/1.73 m2. The reference range was not used to int erpret this result as normal/abnormal . POC eGFR-DARIEN (test 82 See_Comment Normal eG FR >= 60 code = 12650-5) mL/min/1.73 m2 The eGFR is calcula esteban using the CKD-E PI equation. The e GFR declines with a ge. eGFR <60 mL/min /1.73 m2 is considere d as "decreased" Thi s equation should only be used for pat ients 18 and older. According to th e National Kidney Foundation's Ki dney Disease Outcome Quality Initiat surinder (KDOQI) classification and 2012 Kidney Dis ease Improving Globa l Outcomes (KDIGO ) Clinical Practi ce Guideline, the stage of CKD should b e categorized bas ed on estimated GFR. Stage Description GFR mL/min/1.73 m21 Kidney damage w ith normal or high GFR >=902 Kidney d amage with mild decre ase in GFR 60-893a Mild to moderate dec rease in GFR 45-5 93b Moderate to sev ere decrease in GFR 30-444 Severe decrease in GFR 15-295 Kidney f ailure <15 (or lester lysis) [Automated Putney] The system delicious generated this result transmitted ref erence range: >=60 mL/min/1.73 m2. The reference range was not used to int erpret this result as normal/abnormal . POC Glucose (test 115 mg/dL 70-99 H code = 43180-6) POC Ion Ca (test 1.13 mmol/L 1.12-1.32 code = 30345-5) POC Sample Type Venous (test code = 6690) POC Clean Dev (test Yes code = 6672) Performing Lab (test [facility] Ca mpus code = 66348) [facility] Cli nical Lab, [facility] [place] [address]; Yoga Teacher: Nancie Stafford MD Lab Interpretation Abnormal (test code = 69864-0) MD Baldwin VBG+[id number] 18:08:38 Test Item Value Reference Range Interpretation Comments POC VB pH (test 7.40 7.31-7.41 code = 6719) POC VB pCO2 (test 46 See_Comment [Automate d message] code = 6718) The system whic h generated this result transmitted ref erence range: 41 - 51 mmHg. The reference r laurel was not used to interpret this result as normal/abnor mal. POC VB pO2 (test 43 mmHg code = 6720) POC VB TCO2 (test 29 See_Comment [Automate d message] code = 2026-) The system wh ich generated this result transmitted ref erence range: 24 - 29 mEq/L. The reference r laurel was not used to interpret this result as normal/abnor mal. POC VB Bicarb 28 mmol/L 23-28 (test code = 17637-4) POC VB Base Ex 3 mmol/L -2-3 (test code = 1927-3) POC VB O2 Sat 78 % (test code = 6716) POC VB LAC (test 1.1 mmol/L 0.9-1.7 Method desc ription: code = 2519-7) The i-STAT is an analyzer used f or in vitro quantific ation of various anal ytes in whole blood. Th e device uses a s kira disposable cart ridge which contains microfabricated sensors, a dolly bration solution, fluid ics system, and a w aste chamber. Each t est cartridge conta ins chemically sens itive biosensors on a silicon chip th at are configured to p erform specific tests. The microfabricated sensors measure analyte concent ration by an electroch emical assay. POC Sample Type Venous (test code = 6690) POC Clean Dev Yes (test code = 6672) Performing Lab [facility] (test code = [facility] [address]) Clinical Lab, [address] [facility] [place] [address]; Yoga Teacher: MD MD Skip RauschLDH2021-06-10 18:07:09 Test Item Value Reference Range Interpretation Comments LDH (test code = 176 U/L 135-225 Results gre ater than 1651 6111) U/L may not be reliable due to matrix effec t with extended diluti on as it exceeds the man ufacturer s recommended l imit. Caution should be exercised when interpreti ng such values and done in conjunction wit h clinical context. MD ValdiviaCRP (C-reactive protein)2020-08-21 18:06:55 Test Item Value Reference Range Interpretation Comments CRP (test code = 0.53 mg/L Reference r anges for HS CRP 5235) assay are as fo llows: Reference range s when used to assess cardi ac risk: <1.00 mg/L Low cardiovascular risk 1.00-3.00 mg/L Average cardiovascular risk >3.00 mg/L High cardi ovascular risk.Reference ranges when used to assess inflammatory responses: Les s than or equal to 10.00 mg/L. MD ValdiviaCardiac [id number] 17:57:45 Test Item Value Reference Range Interpretation Comments CK (test code = 5206) 102 U/L 39-308 CK MB (test code = 3.2 ng/mL See_Comment [Automat ed message] 520) The system delicious generated this result transmitted ref erence range: <=10.4. The reference range was not used to int erpret this result as normal/abnormal . Troponin T (test code = 26 ng/L See_Comment H < 19 ng/L 9384) S uggest retest at 3 to 6 hours later to rule out myocardial infarction >= 1 9 to <=52 ng/L Possible myocar dial injury. Sugges t retest at 3 teetee rs. - a change of < 20 ng/L, retest at 6 hours - a jacqueline nge of >= 20 ng/L, suggestive of myocardial infarction > 52 ng/L Sugges tive of myocardial infarction Crit ical value will be reported when c Paddy is > 52 ng/L and o nly reported for th e first in a seri es. Hemolyzed speci mens with Hemolysis Index >100 (100 mg/dl or moderate hemoly sis) may cause interferences a nd falsely low res ults. [Automated mess age] The system delicious generated this result transmitted ref erence range: <=18. Th e reference range was not used to int erpret this result as normal/abnormal . Lab Interpretation Abnormal (test code = 87494-6) MD ValdiviaPathology Biopsy [id number] 21:46:00 Test Item Value Reference Range Interpretation Comments Submitted Clinical History f9mmlKRpJLEkw2sxDHD (test code = 42914) mbGFuZzEwMzNcZnRuYm pcdWMxIHtccnRmMVxzc 5CmT4WoUeGaXAxawrEg XGRlZmxhbmcxMDMzXGZ 0bmJqXHVjMVxkZWZmMH csIw6cjRSdrFtpLiCyP WMkv7eernVPqrbuhAc1 s7vgCDNqWuA5kVPtOCc fZ0laccDbvJYrYEZrWO q8oE08YARmcB5oxTFwQ TptfrZkWcH5IRoeBVUe BlW0NWUlsXFwBWXhR1d yZWQwXGdyZWVuMFxibH OmAZN2qAhzt9I7tDSvb GVldHtcZjBcZnMyMiBO b1TzQIl5uMyzQ7FoGXR jVjX8gAItVBAmSUwbHF QwYMKurjC0sS62MJiwv zE2dXAdn7Bgs05jd107 sG1lbHDgERE2XEDpJEZ sfCAwPMPxDHQ5PTSyfL UtO8laGVMlMH3pwgxrG FscYKdpLPCdePU5BXFw dLEoN3KxOIOpYHddEHH jgcv5MsCqRq7wrKJxoH ywFUvrt2wzv5lypRNhS qz6QZZsMnRbYlycHPki a2Qrn2fdWBEldj2oCRS 8dBNhaGtkt9F0jYYrCX YwvBIsmjUnHLPsPgI3F KslPJ6yoz93HQBlPJV6 zv0wwDUcmCwgybSdhKQ fEWeyC3FqVONzt566KJ CyA7AmVTCiq9Y6cmQcD pFpDBTyqTC1wwC1QUFu RFk8vLXsllH9zkJlbHT bW5vjhB7hEOMzNX5fxm ire5nnRNvtBTjeUVFvk QZ0crH3PHLntRZiP9In wU3fQSLbJKqwZJNardy 4XjMpYq9hrFQrlKnvTM xzYmtwYWdlXHBnbmNvb nRccGduZGVjXHBsYWlu XHBsYWluXGYwXGZzMjR eeExcaMndhN3mKoYfCm XvMCdkLY6aEOPnD7uzn CFnFVBqDQEmX7poSdFk bG4ekGpnQWrkzuAvBZS bZZ1aF3ZsY3sny76qOR 1uYMMcs5K9UZZsLTjBJ jFdXHBsYWluXGYxXGZz MjJcbGFuZzEwMzNcaGl jaFxmMVxkYmNoXGYxXG jsW2fyOkEnHmQxTlioY XJ9fQ== Diagnosis (test code = 34) x7xhiGXeUQYupSU7YrU xWSFgu8joe1QlmRLgsV DyFMoisUCkkvFion00f LQ3fJ70IV4tQNFnDgQ4 LDLynrH5Thj5WBAkGQF kgIHiH221d6gak3rfjr BhzOO5vViuFHFqDSNqA CozOKZrNqRiHMhtY13x r63yWFCuI7YbJDrxZxi zE46qZNNimKctiiB1So fuWtgbuCA1CiwvVHUob Vv0HoAlvZjbPpHrUUWr gS0nuVXwdPEga6GtWDh obSotu75vdXdvoDllzE hvaWQgYWdncmVnYXRlc h8uyGJzOZ0dvZIhr5Dn omYcb1olLbFyvVBpNFu cYHmukP0pLKBkhkMQLe XZq9xvzkmfLDFtXG3bb S7aDFUzLI3wDFTmhJew AISyuE1vd4t5ESKimqp iyXiqQMsnxG69PlQbRF TikVyncewnnO29hnIkR TTcf66eOnXitQNxAT5x yYBod9WqmqCjj4skAqK hrJWvSUmyUQnfeK7xDC AaqtPWShGNo8swtvtkk NSavyT2OOUrYLqhZ42k NENbuBydmuE3JddiTds cnVL2OkihSEWxrDm1Ug BcbGluNzIwIEZyYWdtZ T95ltAjDvW1wHX5bZXg FULxOP6quOPnlavyCJs iJAFlZGUiPX9fb5seVG NvbGkuIFxwYXJcbGkwX KzvqmGiuINsVHT7FBQi lL8aPWWkUXEwZD0pnQ3 uFWFwoP1tvG0rtIIrCG m1PPQthK7bw2i2DDOnh pxmeHimLMstxN16XqTj ExLvU99oceWtNQ5yLBL 2YxFqNZUxZZCfat8kPH hjVF4zJCUejhPOujMal BNmjVQjf8MmxAgmPYUo bGFzdGljIHBvbHlwKHM xZsSusHEySK7gtNKhu9 ThitBze1pmQiVrbIRkE ProQLwhmI5cIXAnkoWK LdUId7ethtlok8klqT6 vSGctHc8zZFEapRnaHO BbeS0zc9o3HEWyfsiui UdaSYvgpN93CuBoQFfc ZXJwbGFzdGljIHBvbHl qKwWvlXBxZZ8yaEYza5 AhsiCdu4amNjGrnPLfS MhaUAfogG1eAHLyvwOK LxIQz1dywtdjpkOcqQ4 irRrpx7nnQWJqGYDuqW Cao8u9yPBkpHNkNGLxq 3BzeTpccGFyXGxpNzIw XGxpbjcyMCBGcmFnbWV lyDXyy2EvtLbmNYXzjU FzdGljIHBvbHlwKHMpL mHhsUXsUY2ucYYoo0Ys qpVto4mvWrQcnXWqYFS hclxwYXJkXHBhcn0= Gross Description (test u0ylxRBpBBFasHVXCSU code = [id number]) wMVxhbnNpXHNwbHRwZ3 FvkkevWPgnPY4iKB4tq KyvgURydGIwFW3INKWp ZmYxXHBhcGVydzEyMjQ pGOWceKTjdKK4ACMtEU 1hcmdsMTgwMFxtYXJnc pJ1TSTfsZLnP7HkPOYg YO6psapwUHO3XNtjfQ9 xjlHBTkiyNu9ejKRvqY tcZjFcZmNoYXJzZXQwX QYrtQupLIJbDNr9mP9M MygsROI4GSKETgwtRLR wKQ0Oz8nzYBCvlOMsNE U3PBwkrJTmDCCaQAFaJ Rz5QLVoCYhebTGpAV1m oBjlMmsifNtif6TnbCK cXGlkIDUxMDAyIFxcZG QlQB5WJtQiFZHcZVEmG ppzALg8AJy0NA3HCcKg ICAgNDgxNzYxNSIgOTk 7WZptLH9VAZttPMF1Rp o8FHD3LLD7HGPjLBKwU iBcXGYgQXJpYWwgXFxm cyAxMCBcXGZiIFxcZmw qYQvcB23jhVnibC6dCy wsxnQxZSA1TYGqwdAUQ lxwbGFpblxlcGljTmVz dERvYzEgDQpcbHRycGF yXGxpbjBccmluMCANCl xsdHJjaFxiXGZzMjAgQ 91fg81nNBLuL5TqDRla LzcpF33eIMSyQ8WaCPp lYpXua9bsacCxkD5gzJ BzIHggMjpcYjAgIENvb wBkw0TjCP6cWNDluAJt TOEkAzWnuRzyy4YuGQC jOHhmCH86qzSqJSFzwF XxzkmlDH01VHSzOJJqV 6djVDUFeBa6MDEnERtf FW54sMZvxUjlv7ShgMe 0dGVkIGluIEExLiAgXH Pcj3GgA5D9IPGgRXdji 7kgQJLlLNwcl4RtPQtZ XNGVDC8YEB4fcFF5JDy ZU1GQX6dPlBCaIWX3mY O7LRUFFgtucCN6iTR6o D77MOHpPGEhuVIsYFns M355KwF9HZHlUAilv1v wWMRjJTfkl0NxQMzNNR ODKR3DWU1iwFR6BAjSW 0VORHwyMTAxNnwxfFVT YAC0IEokqJhyzMg4i7t itXBaw1q6CRcjMHH8rA xwbGFpblxsdHJjaFxmc yFyAA8KYZVgXZdeHCYe xLXOJLH9MD2sZHlfeJI ojsnfTVEvY5DtZ8Gyri HiiLKnBVAfhqPou9gwM ZN9QTIltDMxxTDfRoEc UboyIBB3GSp6GSqcSKX nV8BtF9CqWRfoCQA7AJ AwMiBcXGRiICBPVlIgI vMCPNU5RSC8NdV3SQn3 TYQPQcUdRiVyISX9BVb 4MEFwUFu0XCx3LHpLCp Z6GoJ4XNZ5TmIyWNN7O RCmPOo4EQCyVKvoMWWq aWFsIFxcZnMgMTAgXFx oKwNmLSFcAFwbhbT8SJ JcZnMyMCBCOlxwYXIgD TmzgKmayN0nUCFdJ97q q0KTa3IeZT4JMUw8veR mbnlgfX0cCMHqxjWqEA ksvZKcM7tbCqklgwQbV IJjlC8bSCJvo6ZxyuEj vznfRDZtlI1qHKZrXA2 aeL8yQGUszU2wKBSjyG jdNfplJGSzL10ml8qct REya9BsWwZ1BG1xsAoo rdWqa3B4RCRni4O1FLB mcmFnbWVudHMgbWVhc3 QllS4mLLRcOIIocDNvE WNoLCBlbnRpcmVseSBz iDKdxWV9GYNbjG5jQcY uICBccHJvdGVjdHtcZm mwqHZ1HRkcXpaouA6qv CBIWVBFUkxJTksgbmFt CV1MLX3LIlKLXD60ZlU sSFH5MPyOJ2MQsVL5Jf r1VNi9cQvjImzrciGnv CFwHjWSrM9LXVuuJftv lPQ6YOzcAohrxK2bdOU IWVBFUkxJTksgbmFtZT 1RHH5JAI2KuCXaZDY2g UC6MKMVCfigqVO3iAL4 gP80MMBnKJOeqRPyIRn jP902TTZjORjyNQq9vp NoXGZzMjAgDQpccGxha V2dMCLfE17lr7IJi7Hw BQTwHDelm6dabIjzs6A jdGVuZFxwYXJccGFyZF dzpV6mHkCyg6viiCg5R CsrllM8CKBdri9ILjxv TxmqcNdjw5KzjWJyBHc kIDUxMDAyIFxcZGIgIE 9WUiAiIEMxNTYxNjgiI Zr6IMg7AK5VGhAqFKZu YNekXcUpMaTvROw8RVa lMU9YDWqwDCL0Zel2Ct T9VLZ4HRRfGWAoUtEvU GYgQXJpYWwgXFxmcyAx MCBcXGZiIFxcZmwgXFx zL41dRovfarFwPPS6RZ BhciANClxwbGFpblxlc GljTmVzdERvYzEgDQpc bHRycGFyXGxpbjBccml uMCANClxsdHJjaFxiXG UvYeTwJ19dk60aMEUjA Y6uswDpq5XcJVZinMU1 vfEpm4StgfQnSNApxZ3 kZWRteTxcbqL5UDGbRt mwOGCrP73ai2lzjLHiy 8StFkS9FO9be26hvIK6 zUZzcGJwJqRqE25mjcG vGX1xQNO2lqwzPxNmVu YuK87uCFXlbX4xBAHyr HRlcmVkLCBlbnRpcmVs tBRmkTVsgXL5YKDsbG0 gQzEuICBccHJvdGVjdH bjYizzbHC3DVkxVhmdm J8auPGCFYTQGrmXRzxm yhWlLF7CHI9WOuYCOP0 3HvOfIAG5ICxAM0JXqT D2Hhc1MXo3kMzsDrxqp nWveLJfLyQOeL8JFJwz IuicdBI3VGmeQdlrjV3 zdCBIWVBFUkxJTksgbm VyGA7LHW4MKJ6YsZClA UW7vVR4YAAYBtemyBH4 yVD7iB82HNUvRUUmmCE jBBkrS682MFMtVHhzXB j2vwCoMBLfCsWgNUcyd KosoI0aFODxJ28kz7LX t2ZxTKCkBVewo8eifWj mb9CbnJAqABotHLXreL KbWGoeqT3mLuGty6iig Lu2VTpqfaP7OCVugz1E WjxbSzlczWgus5TegXX cXGlkIDUxMDAyIFxcZG UmGU7JYgHqQVNaVOAhP hgdNEh8DPw8BB8GVtFs ICAgNDgxNzYxOCIgOTk 3DFwgWK8ICPhbSUP6IC BnHQC0TTB4VYBeYCBuO iBcXGYgQXJpYWwgXFxm cyAxMCBcXGZiIFxcZmw jIUsxD09qOgemdvCuMX I8BVQkyiKBUvkooISag lxlcGljTmVzdERvYzEg DQpcbHRycGFyXGxpbjB ccmluMCANClxsdHJjaF luDRHyVlUnO43ek13zP GOoy8AtbdUpqrbfKOHu nCEzIRCxEW1pyT7cVGX eqT5iFIMwcPjwllLtrC H0TmavTWMyM89yp3shl HXnp8YqkAWnmFxbyEVn dUEpHXDtRoJjmWudv2Y wSECuLFbwTM55esIoLP 7psP4tNEaySMZlkdVjQ hLqqEJnSuZkKQ42JLIk LiAgRmlsdGVyZWQsIGV bjYpdMHa7SWA8Ze2vwH OgWUPdzmTQFR2tIVdic u52IPX9l0zcpOYrBEcg EuaxeSCfdpT4HNqITYU EUKtUTkJhZC6iXUlXRb tCRUdJTnwyMTAxNnwxf TFJLRT0FBwqfCugnTw6 n6wnxOYgj3t7GSzyIIJ 0nCpNy0ejjYTjLMrkXn xbrCErlkJ3BSzTBCOGX YwVPmBgGO5yKLaABslF LcB8WpCmYGA0NAxNN5W PmBV9Mwh5KFo1xPwyAn qtbrEdmFLsVhRIfW5pr WtipC4faOUeS4zgJuKt MCANClxwbGFpblxlcGl jTmVzdERvYzBccGxhaW 65RZTehSQvIME8GQ0fB HBhclxwYXJkXHNsLTE2 LMcluA88dPIuUGVnDVB glSMnuB4Ot8vtRKKxlS PaQRX5GVlkfLBnZUTiC HIzLYzpFzImE7OKVRIo RiH9NbO9QGDpTZx4YUm cR5ANFBHdNAI3AIX8Ou W2DzS8VVv3IWKOHg1aN sZ8Jbt0YNE2WYK9QxZy IFxcdCAyIFxcZiBBcml hbCBcXGZzIDEwIFxcZm CdJZeprFIuGR7ngZkoZ BWbWlRrCGbbmSLyAY2D XHBsYWluXGVwaWNOZXN 4VJ8tTEECFbhuvWWnIT JbmQpjOPgzaN7lNC2KB Cc2fqMmQUJlAkIsHDKY v1baghhin4jkfN1vFXu lYf6jRDGzY81peMLsK9 4pu72enP5ouKE4JEYxL JVDt13uuDF8myTsWqSx ZVDsdpypHUE8XM8xq44 lqKZ0jTOciOGoXpDoE9 3gecHgeEPsf1ZqjR0eJ KDdMvFfhC5qWOOysTAo cmVkLCBlbnRpcmVseSB kmRHqpMS5IQCybM8dWW EuICBccHJvdGVjdHtcZ vtedPK4BRplMzzvwX8k dCBIWVBFUkxJTksgbmF jDA8VDL7UXjJFDE30Lw JgCVK2BYgKZ0AYzUY4G zj1WQm2aWroJwfcueSi hDNdJgOHlM4RFMjbBep zdDM3GGlnVgbpwP0azD BIWVBFUkxJTksgbmFtZ Q8COD7DCP5QoPKbCJO1 sMF0DGQOQfbhxPV6kIH 4xJ80HPViDRRkrQQnYK clU952DGEmKYkaRZa7s mNoXGZzMjAgDQpccGxh mK7qTLWrP46tt7GEu9I wMWNwTMxjk7soqIidw6 VjdGVuZFxwYXJccGFyZ BblzA9qXzSci7vvhHz6 UBwuerG2YKMhfa0IXni gVaatcBflh5AmxMYhBJ lkIDUxMDAyIFxcZGIgI G3AOeTdXKInLPYrTnqq SYm1XLz6DO7XBdHmUEN mPEwaWbXmLGExYHl7IL lyCI1XIThoLTE7TLSsX WN3JEX9UKSwQXInAtXg XGYgQXJpYWwgXFxmcyA xMCBcXGZiIFxcZmwgXF jeV07oTtcfaqRgRRT4L HBhciANClxwbGFpblxl cGljTmVzdERvYzEgDQp cbHRycGFyXGxpbjBccm luMCANClxsdHJjaFxiX JMpSvSrX31qp27pDGVg M7Eny8jtxK7eYMpsTs1 8sU2gPJIqB8BqeJNuzS jya9boJALcx6nygiGsz 8q8mRXrzAU3TmudCOEd K68qa0chsOBdt3QyGXE hfP9cSFEkUyWruWlwn5 XvVBOyHTcvNG10jsBaI J7ubH7tYMwqTWZeqgCe GrZfpTZlGnUuQD05KIG tLiAgRmlsdGVyZWQsIG KtaOciMJu6ABO2Ts1eq GPxRFFzcyENCW8kTXbg bz80AQY2y4xxhYRtGIb vCspluEBqzkF3PDfRQT OCYGlADqYmTF5xNDrKJ ktCRUdJTnwyMTAxNnwx hSSNBFT0JLqioWqefJe 0e3ypaZHpt3m2SDlzVO G2hGaDp7chuGQoFHdtP pfzyBSbkyH7XQiXVQOZ BVwBArByHU3eIBnVYuh NDuH8JzTwPJV5BJrAA0 ODoWA1Wff1JFn1zIqeJ navldJmwRGrDbOLmW5g kVsydG4pvNIlP6ifJwP yMCANClxwbGFpblxlcG ljTmVzdERvYzBccGxha W04NNTtoFKvAWS2BG0b XHBhclxwYXJkXHNsLTE 1HKuqfG11nFXjMLCaGS UvcIEcpG8JXXZcAVM5I ItpgQ49pZEiBP3VUHAl JAB7QCNmfSVsZEJ4RW1 kaH7HmQ== [employer](s) (test p2zczUGvDVIhtNL7WvQ code = 9841) qDDEan2ayc7IxrVQooB BbRLmotOCeubJgxx03b HD2uF30HG2kQMHuYhZ3 ORTewcS6Spj9MJUoNSN mvVPfY946e7mcl5vuqo KsbTH0jCgoJTAgPIAoV XsnASOnVvRjXa7NOXYy cn0= Disclaimer (test code = u6yoiUDpIXXezHDkIaV 9844) sFTSdMASrk6tkWJCruP FuZzEwMzNcZnRuYmpcd KDnIPMzCzKer5vnm584 iUFqc9iuTSImCdG7sAA qISRwhACvX748PCCxRO efs2rbe4GgJWVvkVSir 3W3ZMZJpkroaQq9nFff P01mo4R3KytdO5rdKPZ wIWUfK6PoMT5iRYOmDo o1BDK1UOX6NEVxJMRdD 1MfYG9rWCPqwQDqVSl8 v1ixvOhpPXIdQFG7r3p bILctkeXiPT5guj9ijI v3f0wtfxEtZNQqLQFhk PKPGWGzT4ZrwOdyPb4g dYs7lQdqNsboJLN0Mae 0KC2ppu18gsg8nOmfMF QijnvxEcX5KFueGHTpt qkbQJo9VZewPEKjyJI2 CUIzxVGqK4VpXJApRZ5 sxdj7ZHF0DGgkMTUuMe O3YOBszKXcSQFjpUejS Afjv312LHK0FsTjJB2j C2Onu8A1cB8rxVYwKVG qlLYfTvOfAEKwez1pyX VvKLcgs6PhEMJ2zzQ3t ZBncLQfCDAxMR32Hbsu k5YvInpcCUW2QLFqarH lr5Bhl0anHfJvluKwT1 oiS4LrAESgSAWuQLYzZ tFejfZvx0Wqu8LiyDNh sUd0v5guZLYvYKKbmEb zn0yyIOI8ELUaE1I7yR Aji4yyMAyvYHUadWQ8g lG4LAOnkUOuZ6BlbJ8v RFQzTX1nnix8x9adDKM 6DLpaIHBlAfZ0vkN6CR BcaGVhZGVyeTcyMFxmb 453ZTE8ZwBxCVLol1Ht L5LnqWdfO76quYrzM08 qOEMwgVybwM3auValsU 5cZjBcZnMyNFxxbFxwb PFuemreYJvevhB9KLea reerLTJiOYyvH7rvPtZ uEYHlcQprMHopy4HrRW FiNZAkRaiekjR7CQBIq 26dLNYmg5DqEAHxiP7d vORwUMafdtApnZT2MYp hdmUgYmVlbiBkZXZlbG 4aVXNqTQ7qYIWaofAyg k9lxtUySRWgTNUyH5Br cmlzdGljcyBkZXRlcm1 nyeJcHSG2RGZBBM1JEZ XjLUDik62wUHPtnUxmv Z6lrWWwavKsRBSwr9Rt tV1gwBPUWSZqI1rhON0 xVVbsk6ZguYMvdGPksF G3JVIxj0WuMlVtxwUaa DOagMHiD3FwdOqpX4jk XIZdLLWjncOxkFDxp5V vPEXrmIZ1tTFmVA9MQp HSu39mDCQxMZUIirWnF FGmtEulsNG0hmX5xV6q LiBJZiBhcHBsaWNhYmx pOVFij144lh5jnzM3KY NpJRGmmxqxy1IcXCYqG WHcjT74MAKuRUXxyn4w xwcltRUcfgLiW1Twrdy 6vY1dMOFyANmfPMQiCI ZzMjJcbGFuZzEwMzNca GljaFxmMVxkYmNoXGYx LSikB3aeTqVtNlKyBln wYXJ9 MD ValdiviaTestosterone [id number] 16:56:47 Test Item Value Reference Range Interpretation Comments Testoster Tot (test code 9 ng/dL 193-740 L Ref erence Ranges: = 7607) Male: Age 20 - 49 249 - 836 Age >=50 193 - 740 Femal e: Age 20 - 49 8 - 48 Age >=50 3 - 41 Lab Interpretation (test Abnormal code = 90203-2) MD ValdiviaProstate Specific Antigen (PSA) - [id number] 16:37:56 Test Item Value Reference Range Interpretation Comments PSA (test code = 1.1 ng/mL 0.0-4.0 Results gre ater than 6743) 4519 ng/mL may not be reliable due to matrix effect with ext ended dilution as it exceeds the manufacture r's recommended simon it. Caution should be exercised when interpreting michael ch values and done in conjunction wit h clinical context.Testing Performed at [facility], [address], [address], [place] [address] PSA Indication (test Diagnostic code = 9395) MD ValdiviaGlucose, [id number] 16:26:34 Test Item Value Reference Range Interpretation Comments Glucose Random (test 108 mg/dL 70-199 Effecti ve 10/08/15, the code = 9360) glucose referen ce intervals have been updated based o n [employer] narda delines (Standards of M edical Care in Diabete s 2016. Diabetes Care 2 016; 39: S13-S22)Fasting blood glucose:Normal: 70 99 mg/dLImpair ed fasting glucose (increased risk for diabetes or pre-diabetes): 100 125 mg/dLDiabe john mellitus: >/= 1 26 mg/dLRandom blo od glucose:Normal: 70 199 mg/dLNote: Random glucose >100 mg /dL is associated with increased risk for diabetes Testin g Performed at [facility], [address], [place] [phone] MD ValdiviaCarbon Dioxide [id number] 16:26:32 Test Item Value Reference Range Interpretation Comments CO2 (test code = 26 See_Comment Testing Per formed at [facility] 9705) [facility], [address], [place] [address] [Automated mess age] The system which ge nerated this result transmit esteban reference range : 22 - 29 mEq/L. The refe rence range was not used to interpret this result as normal/abnormal . MD Pena [id number] 16:26:30 Test Item Value Reference Range Interpretation Comments Anion Gap (test code 10 See_Comment Testing Performed at [facility] = 7198) [facility], [address], [place] [address] [Automated mess age] The system which ge nerated this result transmit esteban reference range : 4 - 14 mEq/L. The refe rence range was not used to interpret this result as normal/abnormal . MD ValdiviaChloride [id number] 16:26:28 Test Item Value Reference Range Interpretation Comments Chloride (test code = 106 See_Comment Testin g Performed at [facility] 2248) [facility], [address], [place] [address] [Automated mess age] The system which ge nerated this result tra nsmitted reference range : 98 - 107 mEq/L. The refe rence range was not u sed to interpret this result as normal/abnormal . MD V[id number] 16:26:27 Test Item Value Reference Range Interpretation Comments Potassium Lvl (test 4.5 See_Comment Testing Performed at [facility] code = 6854) [facility], [address], [place] [address] [Automated mess age] The system which ge nerated this result tra nsmitted reference range : 3.5 - 5.1 mEq/L. The reference range was not u sed to interpret this result as normal/abnormal . MD RodriguezmarECU Health Chowan [id number] 16:26:26 Test Item Value Reference Range Interpretation Comments Sodium Lvl (test code 142 See_Comment Testin nya Performed at [facility] = 5529) [facility], [address], [place] [phone] [Automated mess age] The system which ge nerated this result tra nsmitted reference range : 136 - 145 mEq/L. The refe rence range was not used to interpret this result as normal/abnormal . MD ValdiviaCOVID-19 (SARS-CoV-2) PCR-Asymptomatic [id number] 22:02:46 Test Item Value Reference Range Interpretation Comments COVID19 (SARS Not Detected Not Detected This test is a CoV-2) Result qualitative (test code = reverse-transcr iptase 60619-4) polymerase katerina n reaction (RT-PC R) developed for t he [employer]ALTER 680 0 system and inte nded for the detecti on of SARS CoV-2 RNA in human nasophary ngeal specimens from patients who me et COVID-19 clinic al and/or epidemiological criteria. This assay has been approv ed by the FDA for use only under Emergency Use Authorization ( EUA) in laboratories that have been CLIA-certified to perform moderate-comple xity and high-comple xity tests. The performance characteristics of this assay were verified by the Microbiology Laboratory at [facility], CLIA Accreditation # : [id number] and CAP Accreditation # : [id number]. Result s must be interpreted within the context of all relevant clinic al and laboratory find ings and should not form the sole basis for a diagnosis or treatment decis ion. "Presumptive Positive" resul ts are due to partial amplification o f SARS-CoV-2 targ ets and indicates l ow amounts of viru s present in the specimen at or near the limit of detection. Regardless, individuals wit h "Presumptive Positive" resul ts should be manag ed per institutional guidelines as individuals pos itive for SARS-CoV-2 virus, including use o f appropriate inf ection control protoco ls. Internal contro ls are included to ass ess for possible amplification inhibitors. If inhibition is detected, testi ng is repeated and if inhibition is confirmed the specimen is res ulted as "Invalid". W hen an "Invalid" resul t occur, it is recommended to wait 3 days before submitting a ne w specimen for te sting if clinically indicated. COVID19 SARS [employer] Swab Source (test code = 80651) COVID19 SARS Pre-Out of [place] Indication (test Procedure code = 63548) MD ValdiviaVitamin D [id number] 17:26:43 Test Item Value Reference Range Interpretation Comments Vitamin D 25 OH (test 56 ng/mL 30-100 Refere nce Range: code = 8018) Deficiency: <10 ng/mLInsuff iciency: 10-29 ng/mLSufficienc y: 30-100 ng/mLPotential toxicity: >10 0 ng/mL MD Ashton [id number] 13:40:19 Test Item Value Reference Range Interpretation Comments CEA (test code = 2.6 ng/mL See_Comment Reference R karen:Smoker 5203) 0.0 - 5.5 Te sting Performed at [facility], [address], [place] [address] [Automated mess age] The system which ge nerated this result tra nsmitted reference range : <=3.8. The reference r laurel was not used to int erpret this result as normal/abnormal . MD ValdiviaProcalcitonin (PCT)2020-04-22 04:58:48 Test Item Value Reference Range Interpretation Comments Procalcitonin (test 0.04 ng/mL See_Comment Procalci tonin > 2.00 code = 9379) ng/mL: Procalcitonin l evels above 2.00 ng/m L are highly suggesti ve of a high risk for systematic bact erial infection/ jessica re sepsis and/or s eptic shock. Procalci tonin < 0.50 ng/mL: Procalcitonin l evels below 0.50 ng/m L are at low risk for progression to severe sepsis and/ or septic shock. Procalci tonin (ProCT) between 0.15 and 2.0 ng/mL d o not exclude infecti on, because localiz ed infections (wit hout systemic signs) may be associated w ith such low levels . Results greater than 400 ng/mL may n ot be reliable due to the matrix effect w ith extended diluti on as it exceeds the casino floor supervisor's recommended simon it. Caution should be exercised when interpreting michael ch values and done in conjunction wit h clinical contex t. [Automated mess age] The system whic h generated this result transmitted ref erence range: <=0.08. The reference range was not used to int erpret this result as normal/abnormal . MD ValdiviaNT-Pro BNP (In-House)2020-04-22 04:51:18 Test Item Value Reference Range Interpretation Comments NT ProBNP (test code 220 pg/mL See_Comment [Autom ated message] The = 5886) system which ge nerated this result tra nsmitted reference range : <=450. The reference r laurel was not used to int erpret this result as normal/abnormal . MD ValdiviaSURGICAL PATHOLOGY [id number] 16:36:00 Test Item Value Reference Range Interpretation Comments Case Report (test code Surgical Pathology ? ? = [id number]) ?Case: [id number] ? Authorizing Provider: ?Pako Lpoez MD ?Collected: ? 09/14/2019 1052 ?Ordering Location: ? ? [facility], Clear Received: ?09/14/2019 1413 ? [facility] ?Pathologist: ? Mitch Perez MD ?Specimens: ? A) - PROSTATE, Left lateral apex ? B) - PROSTATE, Left lateral mid ? C) - PROSTATE, Left lateral base ? D) - PROSTATE, Left mid apex ? E) - PROSTATE, Left mid mid ? F) - PROSTATE, Left mid base ? G) - PROSTATE, Right lateral apex ? H) - PROSTATE, Right lateral mid ? I) - PROSTATE, Right lateral base ? J) - PROSTATE, Right mid apex ? K) - PROSTATE, Right mid mid ? L) - PROSTATE, Right mid base ? Final Diagnosis (test [id number] code = [id number]) FuZzEwMzNcZnRuYmpcdWMx EFzmrpZgOTtfw6EsZ8IkZt AwMFxhbnNpXGRlZmxhbmcx QGNsLVJ4nsDrOMZmKAgoKF JtQRwaQd9zeTZemUmdLhHk XNDxg2qlilUMzljffEn0v3 gkKUZnIoT9dZErDPueG2wx twRjcKFjECRdOXn9mL03EP CpyW1xsRGnCPrmenLwFmO6 GVdyCPXpBfX3WMLdyMKeDD IpR2meFQVtDQezGNIlASdz fUBeRLH4wUwnd8C2kMPqrT GdxElfSvRrFbLzKPTFe0Tz GLn9cHvqB9KrJKZaZeT9jT QgUGFyYWdyYXBoIEZvbnQ7 bO26SLitznF8bOMog0Wkc0 0qz598cO6rkDDfDBG7FWEy XIQbvLHbBVRqFBU4YODrmF EnW1rnIFclQV6iqfboUSO6 MFxtYXJndDcyMFxtYXJnYj UqfNRgYHEafSblSNftq577 RXV8IfQoQW7yH8Jzn3O1fN 9maXRcZGVmdGFiNzIwXGZv nm5zqFCpFHdqt1SyABA7uy Q3yOLifDIiRBFkUH23Jord a7IbYxgaOLV6ICUijqJzd0 Jry7bzYvTbunToE3rtR3Mx ZHJoZWFkXHBnYnJkcmZvb3 Vin5YbeGBmbVc6c6nnDRGw KSRapCvak1haADB9JRTaV7 F9bTHch9amHWtfRLVdeEC2 unHaINIahGMnL6JsbH7qJX kgPW3ubke5w0snNkTkQX9g jfekn3knMQyfTDHtXBO7Za ScVXAjl0EvfgwvLdZck8Pf iRRtTCtjV43ql585BQQihp ClJ5mulBEoapbhuBIsuwbh RHomywO8YPz6xbQmseencB xwbGFpblxmMVxmczIwXGxh zchiGPPfWFwwY7qyFtJiTQ HceIgcPLdtc0HnNFYfCDJe DpAsiEYmJYGvLXVTE8IXYL QAHEbLEK8MAXMTEBLTDCcB VEVSQUwgQVBFWCwgTkVFRE qXLJXUR5LHUNayzQndmU6l NxKoInVxDveiGV8wREQtW9 cujUZyVFDhLXCwM4nvYyKd eE1mfVvyESywIxPiKlVhLg ynDQCyjQstcM2aKaZiNcKr HUecSN6vBKVvJ9izqCTgUZ CkXFOzL9oeVhKnxW4frPdi MVxmczIwICAgICAgLSBQUk 3WWLWOKQKkWHHNAx5EWFPF IQ9FUZZdDAePRWSLN45aU3 NPUkUgNyAoNCszKVxwbGFp blxmMVxmczIyXGxhbmcxMD BnUJhsX1ewMaZeIWVsmVlq GTccf9GcQEAdCKWnAmcsxh IyXHBhclxwbGFpblxmMVxm czIwXGxhbmcxMDMzXGhpY2 atNzTrFKYsvSzbUBsmh0Nx XGYxXGZzMjAgICAgICAtIE hIZGNRZYuFE2QAIQVdsWcx oR4cVqMgCsSeFcjoTK2qSN KdH5ygoGZtZTYrLNCtG0nw TpAxdE0kmYkxUHwoVbNtTb LmUbhxMZHuxXwxaR3lGbXt RwNvFCzrNC1xVAMpS1kplQ WfKESiWFGcF7zwJfIbyM4m aFxmMVxmczIwICAgICAgLS XYECNEHE8IVLfVAG8EXRiD GTGHO34tDCMVLJGMMtP3Wh S5EPCfFTBwVYihTXQlQTFc MjJcbGFuZzEwMzNcaGljaF dnDEylJiRmYDHaGAzdO7or ZkSyA3UnMQWsCcSdtRPlKG BsYWluXGYxXGZzMjBcbGFu ZzEwMzNcaGljaFxmMVxkYm ZrHVChMTffT2ziOuOhHpXq XVQgVGEkEF3aCGBAO4RzUI 3PG7wTZUOfHCUQX2ARGGBI EKB5ZBDfV8XcMXiPERZKW9 YHOGNCYFUKZJ4XZDuikEKd blxmMVxmczIyXGxhbmcxMD KjYZypO9lnOqYlCTPdaEyg DMokb6PsVKHyDPCsBgpmkt IyXHBhclxwbGFpblxmMVxm czIwXGxhbmcxMDMzXGhpY2 jvUfYhADVibBhzZYbyz7Yk XGYxXGZzMjAgICAgICAtIF RPVEFMIExJTkVBUiBNSUxM UP9ACLLDPhJXPgPTYIHCBX BlB64GZXOBBGJRWVT2MRGy UA2NTYQnLLwnQRXuVIBkQn JcbGFuZzEwMzNcaGljaFxm OGjdGlWsIVAzYDmwT3kwMh IsT9TwSYXtGuLerQDcPRBh YWluXGYxXGZzMjBcbGFuZz EwMzNcaGljaFxmMVxkYmNo PLLoGQxbC3toHnYwKmLmZT WvLGAxSR7qSQ5ELEsyNKzI ZUCOBO0AYXpFDLFWGICBEW 5HFZCMHkMQKh1RFAvuJTQI TVxwbGFpblxmMVxmczIyXG nlhfrjLKBwXIcuB6qkQjNb ENLnrFblTKgri1UwFQMmHV NmMlxmczIyXHBhclxwbGFp blxmMVxmczIwXGxhbmcxMD XjUCxrY0uiPhJjEFYubEgn OTpnt3TzUSCvGYHbJtGaST AgICAtIFBFUklORVVSQUwg GF1AKAHKY66gIl3CWFyRBC 0YALDVSZXlhCljgG9pFvHn UbHaFgfwAN5xFISwB8cqoD FvTCWdHGNnH9opPlNqzE5h aFxmMVxjZjJcZnMyMlxwYX WaGgjaZnLkbKaikS9wJpDd ZnMyNFxwbGFpblxmMVxmcz NeEVqvhllbNXOoDMwlK0tg KmWyAWBppLzpHYjej8CzQI ImVYSfShPsmXO0LWLmE6Wt XHBsYWluXGYxXGZzMjJcbG FuZzEwMzNcaGljaFxmMVxk HrSwAHNcTImvL1vaRjBhG4 YyXGZzMjJccGFyXGZpMFxw fUVkdmluVSmuupJ6MJGuYN luXGYxXGZzMjBcbGFuZzEw MzNcaGljaFxmMVxkYmNoXG LoDOjcZ0meUxZuFrOlINZF TsBTXw6YHNUPVWRXABOAOF rmEUKCCBVGZLNVHgVTXF9H SUuyUiARRHvQYSVOX7BCUN wdxAqduU1bIuQiCiOzFkjq AX0yJWMjZ2ddaDMfZOTuYZ QlU0odCnDrxY8euCxlIFxx ZjJcZnMyMlxwYXJcZmkyNz FslCdmyK3eVjUbMmHvCKgs bGFpblxmMVxmczIwXGxhbm qsDFYeBFqmE6kiToBrCIMs wIvpZOdwh7DdBCBnFSExCl PsPWPZOz8GFDTXTCQgGMYB Oj9VOLXUGO9DSHAhOEtRLP FCK94fQ7DMEgLyRBRlJJsu BIuivXfepS2vEnTuPaYaAe ibEA0vCWKoQ9kwwGRjIGCt WUMpH7dfFxAipL2frJyzSY xjZjJcZnMyMlxwYXJccGxh qW8jDoNzUfKjZCpkEN3fSP JrU0vruTZaMHYnJSCbO5ud QsWhpC6mzQieXNuqlwRwNP 4iR1DVODVpL2EREEFmGRfe bGFpblxmMVxmczIyXGxhbm vbNHZmSFrqZ6lsInBtVKMx qZneOTtqx5OaQERwTJCxIh xmczIyXHBhclxwbGFpblxm MVxmczIwXGxhbmcxMDMzXG itJ7tbNgAfRWMenLesILsw o1GvFMIbSOQyFfJwDJAUMu NOUNBTA5ACWGJVAMMJGO2D TEJdVVWPJ2BSGAuqwYKsmz xmMVxmczIyXGxhbmcxMDMz NRulJ0qgNsSmNJQogEimRY yft0LzFAArDKLxXxfucoBx XHBhclxwbGFpblxmMVxmcz TzITzxlzyjSWSjYWnaF7gk AcZiSEHpfOrsBOqvf4DqNR JqZHPzQtAxXACHSQ9FErYC TlZPTFZFUyAxIENPUkUgQU 1FAQj8CSKzT7ZmCMhZVHVW L9IGQQGPBMPBKK6DKAzdvV FpblxmMVxmczIyXGxhbmcx XYGqSQdgN9zqVqCeCASdzG vlZZjsq5CpKNOrDUYbFywi czIyXHBhclxwbGFpblxmMV xmczIwXGxhbmcxMDMzXGhp A2dtFwAsANOcdPqqUNliv7 XsWGZqWIVpVoWjADDXT0MD FGMPZT0HCEGnSDuBHQfAMI RHJpXnK1GvXvTDIJmDZERF NnBfZUlIW7NMWsSoPOCNBB xwbGFpblxmMVxmczIyXGxh pahcJEBmSUdpN4xlUsZnUW NziUfiYRajo2SnICWmFRRp MlxmczIyXHBhclxwbGFpbl xmMVxmczIwXGxhbmcxMDMz UFxzT3pmKpYsAKYapRamXV iwj6GwYLTuGZOrUcYiATHT H7BSDEDRSC3LYBUxNUsXRA sJGVDXJgHzZ2MeH2HKE6vG U04UBoZzEsBEYRacsVCsrb xmMVxmczIyXGxhbmcxMDMz TTimK9hmIsNiAXQkeKhzHO znm0QzNSUuCSKrUzsygzKg XHBhclxwbGFpblxmMVxmcz JcTHijondhLWIcMTefP3ia JtHxRDNrhDmmTRyqa0LdTP YxXGZzMjAgLSBQRVJJTkVV GwKENDwBGpHCSH3TVH8FRA BJREVOVElGSUVEXHBhclxw YXJcZmkwXHBsYWluXGYwXG PtYgYvgVpvaD0qDlInIcTh SDckGE1jEURuD6xouKUvSK EbWIGyS5tgOpXwwU3hyWfi KJniqaMtOUWrQOHHE5JGFJ MPPCkAHP8IVYCCJDYZRBxO VEVSQUwgQkFTRSwgTkVFRE uDMLIMU3ZMVFjmuKsxjH6e EjTcTrSfRldzLY6jNAFnB1 jnxDVxCQIiVAGtO3uiJaWd fT3cxPmsDFidImSdMhQiVj siJXNqDxwyJiDmtJwauJ1p ZjBcZnMyNFxwbGFpblxmMV xmczIwXGxhbmcxMDMzXGhp R0rmMfEhPFJhoEgyHAtgt6 QmVXOhOHPuQkCaOLEDEn9U ZRPJZJWtGKDGFi7LNQXTFI 2IMWScPHiYWVALA81iT6KQ UkUgOSAoNCsgNSlccGxhaW 3bNrKsTlJsMiyoSK1rVYSv O7qlrHUcAZVcYDMoS2lhMm DkwZ7cuAhmOZbpInXsTmAu MectALQqjLcfkW2vVwMbCn BcZFgqKL2hJFGoE2qrmZOq TBPeZRRwT0krKjRlmM9eqA bzBLpilvOiDA3tO4SNYOEx K4CSRUDxKCtqbOOkxxarUM xmczIyXGxhbmcxMDMzXGhp H6orQmBmRIWbtGwdZNoqf1 NoXGYxXGNmMlxmczIyXHBh clxwbGFpblxmMVxmczIwXG ljkmuhGGIeAFwyF9fgGfZw YJCxjJtiYOxvv5LmZETmVL LqOpUaNCCTTW4XKdEBPdVO XJNZOhXbKRPSEcOeQS5WJQ ApLWZaM2SoNGwZLPVNO4IA XDJNZAYNTL8FUVtueVAveo xmMVxmczIyXGxhbmcxMDMz GIjwB2pkNvQiWERamUksPH qmd0DwCMTaYPUaIwxocwYv XHBhclxwbGFpblxmMVxmcz CdUEuwjpkzPHIkZNjjY9wx YkLvOPTdyDlhJQvlp5VoAZ KdUXDmAkFwHDLJI8MTEOQX BK7YDJVsNAeNUQtRMTVGJr JwK8HrIiVVZQuWDZKLPsGv GZkSC2VZWkJjXWKUEXlovF FpblxmMVxmczIyXGxhbmcx THFtSYphN5rbBuZxEFSpfS zuINxpw9SjFUHlXYArZqpq czIyXHBhclxwbGFpblxmMV xmczIwXGxhbmcxMDMzXGhp N7ldFsEnXEQqjQggHAziu3 ZuJTJqTPHyRdRmQRUUJ7SY UAWGTC1DOPNoEObTCYzKAS AIMtEiB9ThB0OCE2yER64M HsI4JR5LGRVixfQwBGRRCk dCTPYSSEyiLW5DFXJIA47g Fs3QDDySTO7ZVHMCZJJwbR sugH1bAbOcLrByQfuaJE2g VBBrS3ptfWEtHZApEIUsF6 kxZtLvdV9kpSabIMqrRdNu ZnMyMlxwYXJccGFyXGZpMF xwiDZviecgUPqjzpR4NUYj YWluXGYxXGZzMjBcbGFuZz EwMzNcaGljaFxmMVxkYmNo NSVtLDqhP3ueCcVyRiVfSN VAPlWHNv2VOMXSXAXINCDT RCwgTEVGVCBNSUQgQVBFWC vsEhEVWTrJENTIC6JZRWfr hCamrP8rXvQyCfKdYxisQF 6sVHSbR1ppqPMqECTsVSRw W1ljSgSplI6wtMftJLusXu JcZnMyMlxwYXJcZmkyNzBc sPqvgI1yJeTpKqCwHArihX FpblxmMVxmczIwXGxhbmcx OMRqQEczZ7ziWoOqEXZdaB tlXXfrl0ZrURJoCGQsUcZt XSBQXT0YZ69zXYWRQ2DNWT yBRQUWQ1SAWAANBMCQIFUO Br1XNDOgJB3VFSILEWKIJF 9OXHBhclxwYXJcZmkwXHBs YWluXGYwXGZzMjRccGxhaW 2lWuQoEfYvUTumWI0lCXPy W7dfiHKtTNTlJQKqE1diDf JipK9lsYnsKLxnhoXzOLBs ALFJY3NAMQBKFTeXSO3BJZ MVQJIWNQ3AROMSHXWsAF2E ZGLCKRLJCM1CS7o1TNLzEX luXGYxXGZzMjJcbGFuZzEw MzNcaGljaFxmMVxkYmNoXG QyIQeqO3qlVmGfE2GcEGRr MjJccGFyXGZpMjcwXHBsYW njKIIoHXMbFdQmjFmwtT0w LfRnZbCiYEkjVJ2iLCJqM4 pqaJPxQDLaBZKwD8uwZgRk tR0anBuaXEwpcaQkKC0fIA FPO0MCACwDCZTMBF9CJ3NG I1pYC14JKPZDRDKRB37KWF EOD8KTLAywHIEqMVHcHESs YWluXGYxXGZzMjJcbGFuZz EwMzNcaGljaFxmMVxkYmNo VYXpFVloO4rqQuSpO0YkOC ZzMjJccGFyXHBsYWluXGYx XGZzMjBcbGFuZzEwMzNcaG ljaFxmMVxkYmNoXGYxXGxv L5xqZyWtZcBiLNKiJIvROP NDFLpDY7OYMFFbyZylsT7v JkMiOzBgCrjnIE7hAQWpY0 ypfFLmJSGbLGGtV8sjKmTe nM3amHvnXLboTgSiNaGgUj hmSTAgdZfjcK0uErReAgSk CSxgWW0aLJFtZ1zirLZqLI OrEOFtL4rtFrCtsY6ieYcf HJpgmbEgTE7rCUXAD5RhPT 1SE7pVZYSjONCAO9IFQEBB DRZwJCDnM0FsLVgOOQCSC3 DQFHRBIYJFJN5LAFqbhXUp blxmMVxmczIyXGxhbmcxMD SrNCqaY1cnYoUmVGKxlQrb CObzn3OuXMStUSOvAfrgpf IyXHBhclxwbGFpblxmMVxm czIwXGxhbmcxMDMzXGhpY2 kbRbXwAWDftNiwXJtua9Em BWVdXIWmUtNeLDNEG3HEQR KWBK2WPNOzMNxCRGsDVGZW DfYuK3AtIiZADEmOBFXEXq InUKsTB5QFDgFcDlZTPXsn bGFpblxmMVxmczIyXGxhbm jsKKKxQShhD7lnAkNgSBYs dLczQSjmz5DcQMSxXLWaGx xmczIyXHBhclxwbGFpblxm MVxmczIwXGxhbmcxMDMzXG tfP3nfMxMjHQPyeLufUVgx j7RvMBSnIFNmCbTbUQBMA2 SKEYCSCJ4LOWFjPKcBZMjL ZEPIOhBmN7OeW7GCH2jCT4 6XFrLsLqIhBC5whFordP7o BvWnNnZcLmnqFY3pRYEkL2 jijJNbZFHkQMNgM0wrGeCh yM0ldDrxHXroVlWuEkJzVf phNCMwmYotgA1hHhQmTnGy JJfwAK2tUYPkN6sswBDrIN WmBRPlG7hbLwHgiY6bwTrq UHnkveXvLI0hDIHKQL5MRM XUMPSAIuEWR3yEMhDFV8Sp SURFTlRJRklFRFxwYXJccG FyXGZpMFxwbGFpblxmMFxm cnI5OXOvTAryWIMjCGWfCp BcbGFuZzEwMzNcaGljaFxm GHfsZmAqJIPlNFthA7cuTm GjEeAzMLUIIvSJFe9FOOFU RSBHTEFORCwgTEVGVCBNSU QgQkFTRSwgTkVFRExFIEJJ D9ZUEMetrUnibC2bDsFvMx BdEzilXV4rQFEzF8hzeZJw BGYfJVHlG4qkDiTzkB9bdG xmMVxjZjJcZnMyMlxwYXJc cGFyZFxwbGFpblxmMFxmcz Y3SVDjJNcjXOXiNGJoFrJo bGFuZzEwMzNcaGljaFxmMV knNlZxPBYaSZmeH2ceZnNj ApWyGDDzZMBaTK2sEqXSUW mTDETDA8NRGDOYIoGQHNJT YWYubAZuARCsFliwVOy0ro BhclxxbFxwbGFpblxmMFxm cqF0SENrUWhbXREuMDYcPl BcbGFuZzEwMzNcaGljaFxm EKjlIpXvDIYnMHflD6pqNk FcZnMyMFxwYXJcZmkwXHBs YWluXGYwXGZzMjRccGxhaW 3cZzExBoThPEbuRT6zNWRd E0lcuMAhYCJmQRWzO5wdJi DcvW4ftXlyMHjzmhPqQEed CZIXV0VVBDQNPRoGWQ3BNB BSSUdIVCBMQVRFUkFMIEFQ RFczQO3GTYWOHJHYRL3ER1 y0UKGdYZhrSMSzETBuUuSs bGFuZzEwMzNcaGljaFxmMV reHiItFUPbLGbzA1yeQbJc U1EmEPInJcSudTZlPQHkcc QhwRwkpG4nNrItZsIfTJjx bGFpblxmMVxmczIwXGxhbm zaEVJsHGzfY0tpOwRcWPIx gRuzOZsoc4KjEWNxCAAgQo AgICAgICAtIEJFTklHTiBQ Ly0TCFYGIUQnBJmYA9DLWG hFBFkeJ3sTO69LHvXGOdSH FJ8PCGNBW02mgFSyQWBoJr usNDt6gyGdnetscNdtjAGn plamAJheirG1HLPrIBzwZB YxXGZzMjBcbGFuZzEwMzNc aGljaFxmMVxkYmNoXGYxXG daK9hcSbQaGdRxJDxlGEEc ZmkwXHBsYWluXGYwXGZzMj JncPruiZ1tEjTlRrDyJDyp TQ0uRQMsI0tqhXJiRTFrJQ XkN0deSgEkgD2lmDrhOQdk ydNbUXjnROOME7RKIITBWE fCJU0LOPLQDFiXIGQLXKAM IlCAXM0PAVacMoFEFKqBFE BDV0VEZVuwzNxlnK0xItFr WrBbMyrcYV1pSTDiX0ttdV OiUVMmTYVeA6hlSnVmsL8k aFxmMVxjZjJcZnMyMlxwYX QyWhyrKhMgvLiufH0fXkCu ZnMyNFxwbGFpblxmMVxmcz OdZAtkhhggMSTfQYikF2fp ApIvSQQpgTwaFKwkg4BoPF LaRRXcYdYjIMZITg6CZRYQ NWOpCTVAZu0WESYEOX2QGH MvJJsEMOTDC60aF7YIMgHo HhBsZsdxKxkwpFdmeP5yFe CbElOhYczwGW9aYBHjY7ku gZWwNILoKFWkO3qmFtTwhX 9jaFxmMVxjZjJcZnMyMlxw TGRslFtgfJ3jGcSyRlGnZV ftIF3kNNMrC0ohyPCtYHUm PMVnD3wlIpNcpF5hoIriFO jfzdIvON4dI2LWQGJtL3KI VVAgMVxwbGFpblxmMVxmcz RbZVxjrlcqFRJiEUkpK4dr HdUeLOEfgQqyVTdex4CoUJ YxXGNmMlxmczIyXHBhclxw bGFpblxmMVxmczIwXGxhbm bzGTNyKLntI5kkCiWbZKGu lJcsYTvuk9QmJEAlOFCbSy WuIVPGCU0EHsNKKjYHJCXA JtIdLDUYRaNvPP6VCJgwBV RMDjMLPGHeVExXO7BBCYFT BN1WJbDXRVUcFFraHJXyPL ZzMjJcbGFuZzEwMzNcaGlj aFxmMVxkYmNoXGYxXGxvY2 lsFuXpB7LtLGBvHtQvjUKo XHBsYWluXGYxXGZzMjBcbG FuZzEwMzNcaGljaFxmMVxk ZhIyTFNrBGlmB0ftTvJxLo MyMCAtIFRPVEFMIExJTkVB FeDNBPaSEE0GPQDFVpZEYj KQLVPPONQiE98RTIWYPZIX YWW5LIS3AK6XRPEoCBvzBQ YxXGZzMjJcbGFuZzEwMzNc aGljaFxmMVxkYmNoXGYxXG bgP5bjGgFlN9KpJFGoQkDu cGFyXHBsYWluXGYxXGZzMj BcbGFuZzEwMzNcaGljaFxm KBffVaKhTCUmNTdsK7bdJr FcZnMyMCAtIFRPVEFMIExJ AqCMVtRVKOmEUF1YSEYZWl SEUrZIWQRPKH3OBYY2OSIy BY0dqIhezV4yEiRpEoLdVj ppXS6bJTTxR6sulYMmOZAs AGNdN9dkIrLwsL0mrFskIX xjZjJcZnMyMlxwYXJccGxh lC8bBzYbDwDpRGugDX5cSC LmO2dhnAGnJONmDAWnA3kf MdWwbI2haEpsOGguzeMhYV 9gUACEWY6WGOUOYXPBZdYF E5cJOxAVD2LeADDAKlUTAo lFRFxwYXJccGFyXGZpMFxw aBSthtkmVDsrodO0KSLxBX luXGYxXGZzMjBcbGFuZzEw MzNcaGljaFxmMVxkYmNoXG EjTWhoZ6crGeNnLtVdGSEG IiPDAb7GAWFYAPCDWQIFMM wgUklHSFQgTEFURVJBTCBC QVNFLCBORUVETEUgQklPUF NZOlxwbGFpblxmMVxmczIy PIzzsgczFAOqBMjuI9giPv QeDQHddLioEAigj3MaFVHz XGNmMlxmczIyXHBhclxwYX JkXHBsYWluXGYwXGZzMjRc fQjkvT2pQaEqOdErKJpvNB 2sQNVpX7luyQHcZKVkDMQh A4nvBmRnmN6lrPorWEsbah UyXWAsWASvOBXVZH7LY23f OBUKZ5YAJRkRMKPBK0UOLP GJPOVDBAACJt7PQPTmEZ1O QMQKFXINYN9NFJUlegwidI H2CBxxgCAzFGGwgNmheTbi wP1vCqFnAsHoJQqkeSTanj xmMVxmczIwXGxhbmcxMDMz TAmaM2czSiMrKPKsaArbIF wmf6WeQNBcSAWwIpLvbDIw XGZpMFxwbGFpblxmMFxmcz C0HXYpONwaOSScODSzFnDi bGFuZzEwMzNcaGljaFxmMV slGoOcVAFeJIgnM8sePyPu NdWoDLPVBzYQCn3SAGQWYY BHTEFORCwgUklHSFQgTUlE FTUMGOqpBY6YXMCCYPTMRI 9DY2g6AQSdCXujATOjLJSv MjJcbGFuZzEwMzNcaGljaF mmJXckEjPxUZJaZNeaX2da FqNmP1CgGIDuCiDpxEDoOK ZpMjcwXHBsYWluXGYwXGZz FzWleMqcnZ2iSpZwPvCnFI acKS5tZCTaX2rnmBNgTCYn UJZrN2rlDhPpdT8ukNymXQ kdewOiQC7eERAIV6ZTDCyW QFWHRP8KT1DNA7aZY67ANO JAHBCXO72WEHYHU4HNBYNp KDMrIDMpXHBsYWluXGYxXG ZzMjJcbGFuZzEwMzNcaGlj aFxmMVxkYmNoXGYxXGxvY2 scBcHrQ2QoOJYuPmTmlGSf XHBsYWluXGYxXGZzMjBcbG FuZzEwMzNcaGljaFxmMVxk KnYbKYRyTLdpA4viIoMrUv JdCJGuXXxJKJGDDEwDI6PK FKNhaRsaqP4cVtJrFtKzUb tjKV4xUARtP7wocUBtXQLt SAZgJ6lcCpJmeG1ddNljGS xjZjJcZnMyMlxwYXJccGxh fU4mRnAtZsClCBnjLE5tIL MsM1ouoBMvJPVxOHKmU3nv MlNqsU5enDehSEfblsVxRP 5uOLJRJ0RgNV4SA0mVMTPc ULZDQ9WMIPGCFDC2VATIBp XVOTBwZWgFL0PSOSLERJ9F TkVEXHBsYWluXGYxXGZzMj JcbGFuZzEwMzNcaGljaFxm ODpeJfAfCVZeWRctE1ktLv MyS4OfOJUzFaLmpPZpOOAm YWluXGYxXGZzMjBcbGFuZz EwMzNcaGljaFxmMVxkYmNo ZNHbKYjaK1njExJaNlLgIQ AtIFRPVEFMIExJTkVBUiBN JBnVFB7YWAPGXvFXInNITC HJUXEhA30AAQAZIOWCEHU7 KUB9UH9RDTFtZBtyXCJtRT ZzMjJcbGFuZzEwMzNcaGlj aFxmMVxkYmNoXGYxXGxvY2 ihCqAqR0NxVDNoVvDbvKHu XHBsYWluXGYxXGZzMjBcbG FuZzEwMzNcaGljaFxmMVxk AeRhMCAsHVyfN6mfSiGrBf MyMCAtIFRPVEFMIExJTkVB AtHNZJuWIY6OCPNHTtXGTn SUJSLHZC0MYCW1EAVjUX5n mOgdzR2uPuLiYlOuBhouMP 9hAMGoK9bbwICuNTNpWGUa M0fyCfJgaJ2wkQipWPkgAq NbNtDeUvdcTOAzeDeovH6y PzNaUdFkJDwvJG1hJHJlP5 zsxYZsRUBaQGPpQ4iuZzFs yR9opHhkKObwkwRkWJ6zAC CHVL7JSAUJVPNTSdDJK5iT ViVWH8GoJQYAMdIHSnoHZD xwYXJccGFyXGZpMFxwbGFp xhtxYOaoczZ4EUIfRYexLJ YxXGZzMjBcbGFuZzEwMzNc aGljaFxmMVxkYmNoXGYxXG bcK1tpQgDcJxByTJKFAcNB Jq2WAYLLJFMVCAZQVOidOf oOGPUhNXbHYL6MAGnhTtQC OPbPWJKBR2UMYBednRwxcA 5yHwAiFsJtAyvcOP8wDEAr Q8tyfPAxCCGcNMLcR2ugGo DeiO3mfRlvHJuaDnZnWzMn MlxwYXJccGFyZFxwbGFpbl qpKCfojeT7UMFqEXhrXUSh XGZzMjBcbGFuZzEwMzNcaG ljaFxmMVxkYmNoXGYxXGxv G0ykVeRpMqLrOOSrPIMoAW 2rIfUSPToJYIZWL7KDBALP BgRDVPOLAZPnFF6VJLWSYn 2UTATiKC8VRRJFDFBEYY1N XHBhclxwYXJcbHRycGFyXH FsXHBsYWluXGYwXGZzMjRc rMdsvD9dVzUsNkRhZLbvKU 2aKAUqT2oifAMjJNMrWVIx Q9ctOaEdqG0uhUctKXzmbm IjOPfvFXKBG4TZTWUELAeU HI3THVJFGOcMVMBMEITzRh FNDRooSmTVRPdEZFDOJ3YK EQnjbVrcmA9lIeUbLrIxDp pkRU1zDJFzO7hunFDkBTKc TQAdU4faTrQqrB4kkSxoPT xjZjJcZnMyMlxwYXJccGxh hC5fTuXgIcBzVZboQT6yXG DiL4lgiEUfILRhXLSwW6cq PbFosM0glOebYPesycVsEV MxOGRlXWGXPs6GWNXSRMXm HIRVHs6BAWRIOO7UWCCaPX hOQKFSC44nC5LVGpXiWwWl JwciMujjbHvzgE3gOeUlYh TwBljqRS4tOELkB5ojoIUv XLCnWXEcN0gjMiOqfY5fzF xmMVxjZjJcZnMyMlxwYXJc ThnjNxIerDdvuA2tHxKrKf MyNFxwbGFpblxmMVxmczIw RThwgdoxTJXaTJofS2tlIf UcKBQpyDfsGAers3DyJNAb XGZzMjAgLSBHUkFERSBHUk 9VUCAxXHBsYWluXGYxXGZz MjJcbGFuZzEwMzNcaGljaF drDLznHbAsIYAsDNmtU4sz YoZdT3QhCQAiMkDtkVUzRY BsYWluXGYxXGZzMjBcbGFu ZzEwMzNcaGljaFxmMVxkYm FhVJNsWHemN7bfGkWsXmKb JRErOBDLLM4UEXdTQs4HSi OSGWYuA24CEUUHKySmIEVv P8OfVJoLHGMZM4AGSHHDGN IYJU5MYNinsIDulmtnLHjt czIyXGxhbmcxMDMzXGhpY2 kjZmHzGPQeeZbqDLtuc5Kt XGYxXGNmMlxmczIyXHBhcl xwbGFpblxmMVxmczIwXGxh juqsWHFqWKaaC2qpJiDqBO ReiYdkSLsmx8KdKHJtUXSj RrAvYWMUJ2MLWQFRJK4LJB AdSFwNWGdRODEAEwFkL9Vi TkVFRExFIENPUkUgVElTU1 VFOiAxMiBNTVxwbGFpblxm MVxmczIyXGxhbmcxMDMzXG hqV7skDrFxSTAbmBofPKmr c2YbBLEnIEPoWanshpEyPZ BhclxwbGFpblxmMVxmczIw MJwdafpqFQOvXPyeH6tlEn XrDUCflKbsDSlfa5DdWPOk DFRdLzQbTQHKG9JVYCNXEA 5FQVIgTUlMTElNRVRFUlMg N4WmB2FZP2fSB59JUbNzQo LxHS7dfExagM3nOpNgQxLr WwanMH8qWWVkU5sjxQVuSI XoHIMbN5nmGqVwnX8ghUqn MVxjZjJcZnMyMlxwYXJccG eamL6cEbUaMbIqDNpxZL4g UITbN0cbxAKwWTQwJDFbH8 abShGekT1muKlcMHaecbXv NU9gGSRXYB7LGNRLWVSWWk BTI2jGEdAVY1CiYLTNAwLA RklFRFxwYXJccGFyXHBsYW luXGYxXGZzMjJcbGFuZzEw MzNcaGljaFxmMVxkYmNoXG NmHDixJ3ltZfDfL7XiKDPu ErQdBcBzxHHynFBxK0newV qcmgnbBACURLWzYDnfEw8h RDYlPDR4AuPaSEERPBGdVP luXGYxXGZzMjBcbGFuZzEw MzNcaGljaFxmMVxkYmNoXG IvBOmbY6ufZxLlPdCtQNNa NFxwbGFpblxmMVxmczIyXG vhgqrtWBPhLTmsT1wxBoJf TWUwdTvqKKunv4HkPAFkUN OdBbdcitZeKJHheh31GJO1 GuSlz7R2UAIvTyVgOJRjCZ 2veQwkCJFfLX6qZEUwG8pw nB8viud8FqEdAYIoFpD5HZ KwynU8Iuh5SLJoAVbiu6gr v5VxG8OwhJFdiDn5y5evPM ZvErG3mJBkMOtqE8kyheTx rXRuTOHxZSb0pXduPeDhWX Hud5ahvjHvFcRlJMGsEGHx VDGytXyzldi0qS41TAWimW 5aqYSoQUntpkWnWaL5LTcn VQZfRvL4NELpvBViGCAlL9 xyZWQwXGdyZWVuMFxibHVl JMF4uUriz6X4aSAopPQnmK bmBaSoGvPlOJDOv4KtCOg8 xBseE2TnYSSmTsF4kWDaGG OeFTzvLWZdCYRryzY1pE59 PLfbyuN8wKIbf9Die71wv5 34dM9isLAsCVG9IYZdPGKf fLNqLVJwAET9TPFhuRJfJ4 mwFXUhZI8qtqvhQSdtLSzd UJPypFR8PNFabVWvJ8TqAU ZjEIafQWGdzpf9DfUiNf2x bPFaxIesQTpue2zua0wibB XfOin9PYYoWfNgPoebIQsp v7Auw7iiOVJcpq6gOYE3lK IulCyyr1W5pZPzDWVqrWVe mzEnTKEnRnI9MKrfBW8mmb 08GYEsQPA3bw7tcEXblWfy xxUchZEvABwwA4HaELDqo9 07SBMtW2KdHFYby5C0utSx RlSoCNUmiKG2kfV3XZUxIH g7aTZsahT2mtMwkKVoV8qn vN0pIMGjVS2sqsqud6dxWY cgAEcoOWZulQN7wqK5DDKk rWAyT3PziG1pHHXsTYhwKN Lgafp7CqAaTa8euGVdjSli MFxzYmtwYWdlXHBnbmNvbn RccGduZGVjXHBsYWluXHBs YWluXGYwXGZzMjRccWxccG njmI8yHtKiWoIkTZskBC5h ATRmC6snsCSxGRZaARJzV8 dcSfKxrC5nmQsmGDolGzUa ZnMyMFxwYXIgSSBoYXZlIH QnzvIoogRcjFbehcL8zRU4 ZWQgYWxsIHNwZWNpbWVucy 1oyUphFMIgSC7wRQFkvvHb XKfieBxqHUqgMWZ7QPFpfG VudHMgbWFkZSBieSByZXNp XBEqdGCxJUNltBvyc2Lpi2 XekVR7sI7la0fog7UwMKXd lST9QX32egH0kM0gXCLjVM 2mLNQhHH9pdAWnnJFaAAIh a13thJrpfwHvFFSowhUhIO BsYWluXGYyXGZzMjhcbGFu ZzEwMzNcaGljaFxmMlxkYm IsXCXoZWqnC6unYtIvRaRc CCmnGGW6fX== Clinical Information Left lateral apexLeft (test code = lateral midLeft [id number]) lateral base Left mid apexLeft mid midLeft mid base Right lateral apexRight lateral midRight lateral base Right mid apexRight mid midRight mid base Gross Description (test l2fppSTwRILcdBLfIaVaKT code = [id number]) WhPICqo9ykDPZjrATrDtTa MzNcZnRuYmpcdWMxXGRlZm Zrv0mgf798dKGfs9nkWSYw VeV7qEVnMKBtrLXtD484TP ErZLtig3mbt7PoJXGcaQKr b6D2GOHUeesjsNh9n0mwZp XeFmA2sRTxCOzoA1slowYm qDUmNPVqW8JhquENYFFhRu m9uBfpL27ep9G0AnryE7ec ZWQwXGdyZWVuMFxibHVlMC R1JBZlVXM4ERjekvEpsiH8 KRxevOEfUsG4PCc2u1tofE kxXKJpLUP1i4jnNPiolhKv MG1gkn1piIa5o8rbcjVnIN WrJNPkuNIRMUSzU0FjxPyr Mi9exYd8zCopUzguSQG7Kn z9ZF3vdi07rdz8sAbeCHHp tustRrL4PHiwIKJkzlspAQ m8MKqoVUHmkQNsCHSucVFn Z8UhIZamXR8pumo5WmGnIG 3zzlshWRqmUDZuFLF6YhIg HZYcb2TwheeiSwNhas4gck 79LSK6n3IqxRhbBKL9JNY2 CxQvNk0abDJkMUSsQV6jRb TlwQKlNRRoej36kIhlCElw mjFkrP7yPoDiQQOadKInIC IpDW2qrEDwGVAuzN6mlhpd XHBnYnJkcmhlYWRccGdicm GvKc6zfKmbOMR4QOdsA8wl pT8lTbC8TVbxN0zkiD1wUE d1LLnpjOE3IDTbxO5mHB5i kgjeo7uxESR7YGqnDYKwwl E6wsKxBSEnaYSvV7HcaF23 HcUdmFNiW4FwkF6yFZkuDI Fuhfj3YyJeBk1ptCAhqDX6 MFxzYmtwYWdlXHBnbmNvbn RccGduZGVjXHBsYWluXHBs MUxqRILxCJOrHkUvd0XlFR Ssy2fsKhQjq6mjlKy9GAmi nGvhiTXgzstjVReppiP3SH BsYWluXGYxXGZzMjBcbGFu ZzEwMzNcaGljaFxmMVxkYm BoTTWaKJwaE5lmUyOvDgGl EMVPjYCksQ4imlROFWnlJF YmR6EgrvMlREvbKDNyra3i kQaeNXjkIkCgBVGyr2n6wC T3yRGjbMX2lNVgmOeaEV3n hEDoHTKWXN79pYKegjxmWo fhBzWfeCJ6QXJtvFWpwDC0 EwMvcwGiC14df5lxjRXoo0 HpRYJidX8inHBfvZYbCBnt XBnzG45bJYZuDM56BHwpVP 8gXNvmEM6lDWUjPEK9gLth aCBpcyBlbnRpcmVseSBpbm tlZCBibHVlIGFuZCBzdWJt cVB2IVYymF8fwL68pwBgsr PXWM9bnGPuIXEyOLKvfTFn GOJhgHZiraVgUZe8VAJyhJ 8eJb2kpFWemZ6wxUWzPUkd FRG7dEHqNTTtMKUfRKGwCI 48F6BshrNgODkuCJstyoYu YmVyLCAibGVmdCBsYXRlcm UxQH9rHYYyQE8uMCMpesRx j9PeKY0fDTRkn6qlD2sdYS Ryoe8okaL8KWNruePyCYPl JSR8PMWzIQ1lKtBzZ49yEY doaWNoIGlzIGVudGlyZWx5 ESjsp9CiNFZnuPVmZL8uZG T0Dl1zmYUcRRElpzA1h7Dt VAruFEAhHftnRLZcK2ZsL9 fiIQ0wOwGczfJcCQAzaCNx LROvydNti4NoFMzlxuDnME JlbGVkIHdpdGggdGhlIHBh hWcdayVhkbKbJT3cGYMCQQ IjpO7jPRFoXUPmMWC1HZsa iIDjZXuhOhAoIGVaJH3oVY SnjaXom2HgDN5wHLJri3qu L5fcNQMsxf5ujcK1SCZkwn GfVRRcOgS6WIJsHHE2DIQu OGTzhTlgv0fgV5gzxLFqCT 59mXXtwLdjuX9dFBQgByb3 GUBufnCab2WqkOc0aZGlSF uoORPcxN4goY8kHyBsIILm xlPQeASorB2aayMFWVorJG ToY2GkugQrMYveMEDgkp8z wRbfADgwRaGbUSFon8c6oM B0eWXxqSA9aRRkvZxeWA9p fKYhBECBVN87dJKnrcqjKx xlZnQgbWlkIGFwZXgiIGFu JDZfo68rsRC1wvXhYlAvAS KwhmfeNAS1VU7hD1MnpAGa o2LfSThxWnQwjINtDqWokV AuSuHbF23oKZcmsQPnALre ABDpkLfxOFc4APczo5GoYQ SydYFfFR4fQGC4Qm2ydMEu MIOsmtK7j7WrDWjoNMNySx uzXRUxH3ChR0ijUP5eHJPi cyByZWNlaXZlZCBpbiBmb3 JtYWxpbiBsYWJlbGVkIHdp dGggdGhlIHBhdGllbnQncy JkLW6nGGXXSLTzrE9zTBTq XUWvOJZ1XC1bUFAcwZUfVE YgFIMjk89rpJY0wbViXdDb CQNuodivJSF1DQ7gJ4QljX Uik9TlSXtdWrWvfUUzPvFe qEErWmXxF36yGRpxyIOkNX obBMTfiTnlAWf7IDwhl2Jk PHOwfTCeRO7dLRB3Ll2unN IbDPJikpA1u8OgHLpaXBKh DqvyZHKlI7BeL0bsCU2cTe BpcyByZWNlaXZlZCBpbiBm h5QbTXdrimTtTVNirRZuFS dpdGggdGhlIHBhdGllbnQn bqYaAP8gCYUELKRmnY0yHC LiVNMkMCC1AD6pQBEhXGWf DoGuhyGwA14en6pgxKRwk8 ZgZLMlfL6uqDZvhULyKWug UZemE03gZMSwYP08QPgjUH 9aAChyHB4iVHRcZNU8fSvx aCBpcyBlbnRpcmVseSBpbm tlZCBibHVlIGFuZCBzdWJt uMN3RVUraT6zaE92thPraa CMNT6bfGLgMTVpSBYoeOLq LKjddPZahgQgPNu0QDGngE 3aGk2mcCKlxP4xtLRrNJgj UWQ7xTQmNHErGNDqZYJcKT 58I6GtviHeYUksVTojuhAy FyZoLREucapudOTvsJE8NA OnmBTteUE5ZvKmuhQqL62y z3uzbBHez8ViZQDyrM6ygJ ZyeJPhIEirXTmoM85oUUYi Ex1kATbzTJ6fYZtjKJ6tAJ LtLQF5oMpteBZducSmdoNy cmVseSBpbmtlZCBibHVlIG XwGHSqqFXydMQ2YLIfxW1y cE75vqZjmgZJLJ3mlSTxUU NwZWNpbWVuIEggaXMgcmVj KWo1LTBqsM7aJf9iuTJbaU 0woQGnNYirYJU2hHXcQMNc FULwGRLsCQ13P1CectHsZT wgVUggbnVtYmVyLCAicmln yJSzvUD6PZXplVQgvRVgMN IfDFLhf52khPZ7lpIxTeDp LZOhexmnKIM0BT2hS8SksA Wns0KiQAjmXkmqfELgToAl rNFeEkTwC63tLWctwVFbWY ymXDLlwBevYYu5AMoks8Wg URUurOHzSR6kTIE7Tg5pgE EmGGGronQ0g2AlPWqzKWfp QtowXXQeO0XgK8tcDT7xMN BpcyByZWNlaXZlZCBpbiBm w9OxHQnifmIlQBKuvVNmIA dpdGggdGhlIHBhdGllbnQn avEjRN8wBFJTYOGoaV9bGP IsICJyaWdodCBsYXRlcmFs VOZit6YvSKBfWXSdm79xyT K3hnJtFbThISEackzjXCQ6 FH1bY7GubYYih7WqANcfDn vapNVnZwHifWBzEdBpT13i IHdoaWNoIGlzIGVudGlyZW i8KDvbq0PyUAKmwCYuNO3z TFC4Re0erQRrMOUofaM3x5 NuQBjhZHysVfkuTOLqQ6Dc V7pzJI5pRvHehuOoAPPxdC BkHJXkcmGzp3GaJOdigzVw YWJlbGVkIHdpdGggdGhlIH VwlGeqlwCzcnSeZV7zNOLP MUggbnVtYmVyLCAicmlnaH QgbWlkIGFwZXgiIGFuZCBj r95blPO3uaWxYhKtPOTnco vlUUM5CJ3cU9AbiHMow4Ti ICgxLjcgeCAwLjEgeCAwLj KzS59fXYhpyZOjLKtqSZAq mIjaFVd2IDkeq7KyDEQqaK VgRV4oTCI4Ei5dnJAwHBLz lhE6u1GdUSqoTQdvAorlZF VfJ4FsP1cgXA2bLmTbitYs WDBphPNkPFUcqtToy8PcWM xpbiBsYWJlbGVkIHdpdGgg dGhlIHBhdGllbnQncyBuYW 5dTUHVSDJlhM6iNWHcKDQv aWdodCBtaWQgbWlkIiBhbm TbO32ss3osbPJuq8NmUVBt wT1liGIfgNNbEFbzGHfkR8 4qXXNmGy4uBHqhXL1lGQox WY1sMIAyXWP8vChspSDizu BlbnRpcmVseSBpbmtlZCBi cCFwRCFvKFZugQKnxVT3HV GiuF3efH77ldGittYKGO2m cGFyIFNwZWNpbWVuIEwgaX FzgmAvWQn3XLHogD8vAz9q eDIbhG2jzFAdHDafZKE8dC TgSHRtIPEfJPFvDL77U0Rb bmFtZSwgVUggbnVtYmVyLC GpywxtlYAtcCzhMQWdq6Mk AMSiVIPgk23biJM2nxHcQx JjWLNskvjcPRZ7DT1tL2Gw fLEgy4YyGZskSiGzlFIcXr VgrBYuQcRlF08dECibyYDd IJtjVVJbrHzfQYo4ONors0 FvETVshQPuHW5sTNN9Kw1c vBGeIFMcwaA0m7TvVUacBZ wxLlxwYXJccGFyZFxwbGFp ibumQIhgnoD2NWJcYTifHZ YxXGZzMjBcbGFuZzEwMzNc aGljaFxmMVxkYmNoXGYxXG smO3grGrBiDzBeZASCkWlx PHAPH6uimEXlKShtHCRTMT BsYWluXGYyXGZzMTZcbGFu ZzEwMzNcaGljaFxmMlxkYm QvHORkTQykT7neQpFoJ7Oj XGZzMTZccGFyXHBsYWluXG YxXGZzMjRccGFyXHFsXHBs YWluXGYwXGZzMjRccGxhaW 0zRnFeFfTuGUbzGZ8xVSBg P0fnhBQgBKHoMSUjI4uqPg XguJ9nrTxwQDnpnyLkNTNh cn0= Embedded Images (test code = [id number]) [facility] ANTIGEN [id number] 23:07:00 Test Item Value Reference Range Interpretation Comments PSA (test code = 29.30 ng/mL See_Comment H [Automated [id number]) message] The system which generated this result transmitted reference range : <=4.00. The reference range was not used to interpret this result as normal/abnormal . BEVERLEY (test code = BEVERLEY) Biotin has been reported to cause a negative bias, interpret results relative to patient's use of biotin. Lab Interpretation Abnormal (test code = 02770-6) [facility] [place] [facility]
--- NOTE | 2021-03-20 14:06 | RAD REPORT ---
EXAM DESCRIPTION: RAD - Chest Single View - 03/20/2021 1:57 pm CLINICAL HISTORY: CHEST PAIN COMPARISON: Chest Single View dated 07/22/2016; Chest Single View dated 07/18/2016 FINDINGS: Lines: None. Lungs: No evidence of edema or pneumonia. Pleural: No significant pleural effusions or pneumothorax. Cardiac: Cardiomegaly. Bones: No acute fractures. Other: IMPRESSION: No acute cardiopulmonary disease.
[2021-03-20 15:21] LABS: Absolute Lymphocytes (CBC) 0.4 K/uL (0.7-4.9); Hematocrit 42.5 % (39.6-49.0); Lymphocytes % 5.2 % (15.3-44.8); RBC Red Blood Cell Count 4.76 M/uL (4.33-5.43)
[2021-03-20 15:26] LABS: Protime INR 1.09
[2021-03-20 15:43] LABS: ALT/SGPT 19 U/L (12-78); AST/SGOT 13 U/L (15-37); Albumin 3.3 g/dL (3.4-5.0); Alkaline Phosphatase 80 U/L (45-117); BUN Blood Urea Nitrogen 20 mg/dL (7-18); Bicarbonate 28 mmol/L (21-32); Bilirubin Direct 0.1 mg/dL (0-0.2); Bilirubin Total 0.4 mg/dL (0.2-1.0); Glucose Level 99 mg/dL (74-106); NT PRO-BNP 761 pg/mL (<450); Potassium 4.1 mmol/L (3.5-5.1); Protein, Total 6.8 g/dL (6.4-8.2); Sodium Level 140 mmol/L (136-145); Troponin (Emerg Dept Use Only) < 0.02 ng/mL (0.0-0.045)
--- NOTE | 2021-03-20 15:57 | ER ---
Nurse's Notes [facility] Name: Jesse Serna Age: 80 yrs Sex: Male : 1940 Arrival Date: 03/20/2021 Time: 13:18 Bed 19 Private MD: Diagnosis: Nonspecific chest pain Presentation: 03/20 13:19 Chief complaint: EMS states: "Called out for HTN" BP upon arrival was 140/78 however ss pulse was palpated and noted to be irregular en route to ED with a rate of 58-140. Coronavirus screen: Client denies travel out of the [place] in the last 14 days. Ebola Screen: Patient denies exposure to infectious person. Patient denies travel to an Ebola-affected area in the 21 days before illness onset. Initial Sepsis Screen: Does the patient meet any 2 criteria? No. Patient's initial sepsis screen is negative. Does the patient have a suspected source of infection? No. Patient's initial sepsis screen is negative. Risk Assessment: Do you want to hurt yourself or someone else? Patient reports no desire to harm self or others. Onset of symptoms was March 20, 2021. 13:19 Method Of Arrival: EMS: [facility] ss 13:19 Acuity: KT 3 ss 13:21 Chief complaint: EMS states: GENERAL MALAISE AND MYALGIA AFTER COVID BOOSTER, NOW S/S bp RESOLVED. Triage Assessment: 13:30 General: Appears in no apparent distress. comfortable, Behavior is cooperative, bp appropriate for age, anxious. Pain: Denies pain. EENT: No deficits noted. Neuro: No deficits noted. Cardiovascular: Rhythm is sinus rhythm. Respiratory: No deficits noted. GI: No signs and/or symptoms were reported involving the gastrointestinal system. : No signs and/or symptoms were reported regarding the genitourinary system. Derm: No deficits noted. Musculoskeletal: No deficits noted. Historical: - Allergies: 13:21 No Known Allergies; ss - PMHx: 13:21 Hypertension; ss - Immunization history:: Client reports receiving the 2nd dose of the Covid vaccine. - Social history:: Smoking status: Patient denies any tobacco usage or history of. Screenin:30 Abuse screen: Denies threats or abuse. Denies injuries from another. Nutritional bp screening: No deficits noted. Tuberculosis screening: No symptoms or risk factors identified. Fall Risk None identified. Assessment: 13:30 General: SEE TRIAGE NOTE. bp 15:30 Reassessment: No changes from previously documented assessment. Patient and/or family bp updated on plan of care and expected duration. Pain level reassessed. Patient is alert, oriented x 3, equal unlabored respirations, skin warm/dry/pink. 16:30 Reassessment: PT D/C HOME AMBULATORY WITH FAMILY, DX WITH NONCARDIAC CHEST PAIN. bp Vital Signs: 13:22 BP 143 / 96; Pulse 59; Resp 16; Temp 98.2(TE); Pulse Ox 98% ; bp 15:30 BP 126 / 46; Pulse 51; Resp 16; Pulse Ox 97% ; bp 16:30 BP 139 / 61; Pulse 51; Resp 17; Pulse Ox 97% ; bp ED Course: 13:18 Patient arrived in ED. ss 13:21 Tyron Hill, RN is Primary Nurse. bp 13:21 Triage completed. ss 13:22 Arm band placed on right wrist. ss 13:30 Patient has correct armband on for positive identification. Bed in low position. Call bp light in reach. Side rails up X2. engine monitor on. Pulse ox on. NIBP on. 13:41 Eddie Castillo MD is Attending Physician. sp3 13:49 EKG done, by ED staff, reviewed by Eddie Castillo MD. mb4 13:56 XRAY Chest (1 view) In Process Unspecified. EDMS 15:10 Maintain EMS IV. Dressing intact. Good blood return noted. Site clean \\T\\ dry. Gauge \\T\\ bp site: 20 G L AC. 16:30 No provider procedures requiring assistance completed. IV discontinued, intact, bp bleeding controlled, No redness/swelling at site. Pressure dressing applied. Patient maintains SpO2 saturation greater than 95% on room air. Administered Medications: No medications were administered Outcome: 15:56 Discharge ordered by . sp3 16:30 Discharged to home ambulatory, with family. bp 16:30 Condition: stable 16:30 Discharge instructions given to patient, Instructed on discharge instructions, follow up and referral plans. Demonstrated understanding of instructions, follow-up care. 16:32 Patient left the ED. bp Signatures: Dispatcher [employer] EDWI Karon Jaramillo RN RN Tyron Hill, ARA RN bp Sonia [id number] Eddie Castillo MD MD sp3 Corrections: (The following items were deleted from the chart) : 13:19 Pulse 103bpm; ss ss 13:32 13:22 Temp 98.2F Temporal; ss bp
--- NOTE | 2021-03-20 15:57 | EDPHYS ---
Physician Documentation [facility] Name: Jesse Serna Age: 80 yrs Sex: Male : 1940 Arrival Date: 03/20/2021 Time: 13:18 Bed 19 Private MD: ED Physician Eddie Castillo HPI: 03/20 14:07 This 80 yrs old Male presents to ER via EMS with complaints of Irregular Pulse.sp3 14:07 80-year-old male with a history of hypertension, prostate cancer now not on any sp3 treatment, and questionable past history of atrial fibrillation presents via EMS for chief complaint irregular pulse and palpitations which have now completely resolved. Patient received a COVID-19 booster shot 3 days ago and he suspects that his symptoms are due to that. Patient is [place]-speaking which I spoke directly with patient as well as through his daughter who translated further. All symptoms are now resolved and symptoms only lasted for a few hours. Patient denies headache, neck pain, chest pain, shortness of breath, back pain, abdominal pain, nausea, vomiting, diarrhea, syncope, near syncope, neuro symptoms, rash, fever, known COVID-19 contacts, other sick contacts, or any other ROS at this time. Patient is not on any anticoagulants or antiarrhythmics.. Historical: - Allergies: 13:21 No Known Allergies; ss - PMHx: 13:21 Hypertension; ss - Immunization history:: Client reports receiving the 2nd dose of the Covid vaccine. - Social history:: Smoking status: Patient denies any tobacco usage or history of. ROS: 14:09 Constitutional: Negative for fever, chills, and weight loss, Eyes: Negative for injury, sp3 pain, redness, and discharge, ENT: Negative for injury, pain, and discharge, Neck: Negative for injury, pain, and swelling, Respiratory: Negative for shortness of breath, cough, wheezing, and pleuritic chest pain, Abdomen/GI: Negative for abdominal pain, nausea, vomiting, diarrhea, and constipation, Back: Negative for injury and pain, MS/Extremity: Negative for injury and deformity, Skin: Negative for injury, rash, and discoloration, Neuro: Negative for headache, weakness, numbness, tingling, and seizure. 14:09 Cardiovascular: Positive for Positive for palpitations which have now resolved.. 14:09 All other systems are negative. Exam: 14:09 Constitutional: This is a well developed, well nourished patient who is awake, alert, sp3 and in no acute distress. Head/Face: Normocephalic, atraumatic. Eyes: Pupils equal round and reactive to light, extra-ocular motions intact. Lids and lashes normal. Conjunctiva and sclera are non-icteric and not injected. Cornea within normal limits. Periorbital areas with no swelling, redness, or edema. ENT: Nares patent. No nasal discharge, no septal abnormalities noted. External auditory canals are clear. Oropharynx with no redness, swelling, or masses, exudates, or evidence of obstruction, uvula midline. Mucous membranes moist. Neck: Trachea midline, no thyromegaly or masses palpated, and no cervical lymphadenopathy. Supple, full range of motion without nuchal rigidity, or vertebral point tenderness. No Meningismus. Chest/axilla: Normal chest wall appearance and motion. Nontender with no deformity. No lesions are appreciated. Cardiovascular: Regular rate and rhythm with a normal S1 and S2. No gallops, murmurs, or rubs. Normal PMI, no JVD. No pulse deficits. Respiratory: Lungs have equal breath sounds bilaterally, clear to auscultation and percussion. No rales, rhonchi or wheezes noted. No increased work of breathing, no retractions or nasal flaring. Abdomen/GI: Soft, non-tender, with normal bowel sounds. No distension or tympany. No guarding or rebound. No evidence of tenderness throughout. Back: No spinal tenderness. No costovertebral tenderness. Full range of motion. Skin: Warm, dry with normal turgor. Normal color with no rashes, no lesions, and no evidence of cellulitis. MS/ Extremity: Pulses equal, no cyanosis. Neurovascular intact. Full, normal range of motion. Neuro: Awake and alert, GCS 15, oriented to person, place, time, and situation. Cranial nerves II-XII grossly intact. Motor strength 5/5 in all extremities. Sensory grossly intact. Cerebellar exam normal. Normal gait. Psych: Awake, alert, with orientation to person, place and time. Behavior, mood, and affect are within normal limits. Vital Signs: 13:22 BP 143 / 96; Pulse 59; Resp 16; Temp 98.2(TE); Pulse Ox 98% ; bp 15:30 BP 126 / 46; Pulse 51; Resp 16; Pulse Ox 97% ; bp 16:30 BP 139 / 61; Pulse 51; Resp 17; Pulse Ox 97% ; bp MDM: 13:56 Patient medically screened. sp3 14:09 Data reviewed: vital signs, nurses notes. ED course: All symptoms resolved and patient sp3 is in no acute distress. If work-up is negative we will discharge patient home at this time. EKG demonstrates normal sinus rhythm at 62 bpm with right bundle branch block altered axis, nonspecific diffuse ST/T changes without evidence of ischemia.. 15:55 ED course: Work-up is negative. Patient continues to be pain-free. We will discharge sp3 patient home at this time.. 03/20 13:42 Order name: Basic Metabolic Panel; Complete Time: 15:55 sp3 03/20 13:42 Order name: CBC with Diff sp3 03/20 13:42 Order name: LFT's; Complete Time: 15:55 3 03/20 13:42 Order name: Magnesium; Complete Time: 15:55 sp3 03/20 13:42 Order name: NT PRO-BNP; Complete Time: 15:55 3 03/20 13:42 Order name: PT-INR; Complete Time: 15:55 3 03/20 13:42 Order name: Troponin (emerg Dept Use Only); Complete Time: 15:55 sp3 03/20 13:42 Order name: XRAY Chest (1 view); Complete Time: 15:17 3 03/20 13:42 Order name: EKG; Complete Time: 13:43 sp3 03/20 13:42 Order name: Cardiac monitoring; Complete Time: 15:10 sp3 03/20 13:42 Order name: EKG - Nurse/Tech; Complete Time: 15:10 sp3 03/20 13:42 Order name: IV Saline Lock; Complete Time: 15:10 sp3 03/20 13:42 Order name: Labs collected and sent; Complete Time: 15:10 sp3 03/20 13:42 Order name: O2 Per Protocol; Complete Time: 15:10 3 03/20 13:42 Order name: O2 Sat Monitoring; Complete Time: 15:10 3 Administered Medications: No medications were administered Disposition Summary: 03/20/21 15:56 Discharge Ordered Location: Home sp3 Condition: Stable sp3 Diagnosis - Nonspecific chest pain sp3 Followup: sp3 - With: Private Physician - When: As needed - Reason: Continuance of care Discharge Instructions: - Discharge Summary Sheet sp3 - Nonspecific Chest Pain, Adult sp3 Forms: - Medication Reconciliation Form sp3 - Thank You Letter sp3 - Antibiotic Education sp3 - Prescription Opioid Use sp3 Signatures: Dispatcher [employer] Karon Phan RN RN ss Peltier, Brian, RN RN Eddie Hickey MD MD sp3
[2021-03-20 16:38] VITALS: TEMP 98.2
[2021-03-20 16:39] VITALS: O2SAT 97
[2021-03-20 16:42] VITALS: BP 139/61
[2021-03-20 17:00] LABS: Blood Morphology Comment NOT SEEN (NOT SEEN); Platelet Estimate DECR; White Blood Cell Scan OK (OK)
--- NOTE | 2021-03-21 13:48 | EKG ---
Test Date: 2021-03-20 Test Time: 13:49:27 Stamp Machine Servicer: SHALOM MEASUREMENT RESULTS: Intervals: Rate: 62 AK: 162 QRSD: 146 QT: 428 QTc: 434 [place]: P: 80 AK: 162 QRS: -66 T: 40 INTERPRETIVE STATEMENTS: Normal sinus rhythm Right bundle branch block Left anterior fascicular block Bifascicular block Abnormal ECG Compared to ECG 07/18/2016 12:35:25 No significant changes Electronically Signed On 03-21-21 13:47:35 FISHER TERRAPIN by Solitario Guzmán
== END 2021-03-20 16:32 | disposition home or self-care (01) ==
LOC: ER 13:06
DX: R07.9 Chest pain, unspecified (principal); I10 Essential (primary) hypertension
CPT/HCPCS: 36415; 71045; 80048; 80076; 83735; 83880; 84484; 85025; 85610; 93005; 99285

== ENCOUNTER 2021-04-29 17:51 | Emergency (ER) | payer SELFPAY ==
--- OUTSIDE RECORDS SUMMARY | 2021-04-29 17:56 | XMS REPORT | Clinical Summary ---
:1940 Author Organization [facility] MD [facility] Address [address] [place] [address] Care Team Providers Name Role Phone Pako [...] #1: Name: Latoya Serna ( Daughter ) [phone] Contact #2: Name: Phone Number: Contact #3: [...] Date Resolved Date Chest pain 08/22/2020 10/27/2020 Encounters Date Type Specialty Care Team Description 04/29/2021 Orders Only Cardiology Brandon Paroxysmal atri al ELIZABETH Ernandez fibrillation (Primary Dx) 04/29/2021 Telephone Radiation Oncology Serena Stuart FNP 03/20/2021 Orders Only Cardiology Zachary Essential (prim aislinn) Angelika Rush hypertension RN (Primary Dx) 03/20/2021 Documentation Cardiology Angelika Sharma RN 01/12/2021 Refill Radiation Oncology Narciso Adenocarc inoma of [facility], [facility] prostate 01/12/2021 Orders Only Genitourinary Oncology Kait Nails, [facility] 11/20/2020 Refill Genitourinary Oncology Sanjuanita Lerma, Ad enocarcinoma of HEMOTHERAPIST prostate 11/19/2020 Telephone Radiation Oncology Hang Menjivar RN 11/19/2020 Nurse Only Radiation Oncology Hang Menjivar RN 10/31/2020 Telemedicine Gastroenterology, Navin Lal Diarrhe a (Primary Dx); Hepatology & Nutrition MD Gavin gardner history of colon polyps 10/31/2020 Prep for Surgery Gastroenterology, Polly Berg, Hepatology & Nutrition HEMOTHERAPIST 10/31/2020 Travel 10/29/2020 Telephone Radiation Oncology Emely Ng, ARA 10/29/2020 Nurse Only Radiation Oncology Emely Ng, ARA 10/27/2020 Follow-Up Cardiology Ian, Paroxysmal atri al fibrillation; Kathie Moser NP Essential (primary) hypertension Harlan Brandon PA 10/27/2020 Travel 10/23/2020 Orders Only Radiation Oncology Crabtrey, Adenocarc inoma of Serena, ELECTRONIC PLOTTING SYSTEM OPERATOR prostate (Prim aislinn Dx) 10/17/2020 Hospital Encounter [...] Oncology Ashley Jones 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, HEMOTHERAPIST prostate 09/24/2020 Hospital Encounter Radiation Oncology Nick Delgado MD 09/24/2020 Hospital Encounter Radiation Oncology Mlily Saini nocarcinoma of MD Marek prostate (Prim [...] MD 09/18/2020 Orders Only Radiation Oncology Jeannie Sainicarc inoma of MD Marek prostate (Prim aislinn Dx) 09/18/2020 Travel 09/17/2020 Hospital Encounter Radiation Oncology Nick Delgado MD 09/17/2020 Hospital Encounter Radiation Oncology Yeny Milly nocarcinoma of MD Marek prostate (Prim aislinn Dx) 09/17/2020 Travel 09/16/2020 Hospital Encounter Radiation Oncology Nick Delgado MD 09/16/2020 Telephone Radiation Oncology Hang Menjivar RN 09/16/2020 Travel 09/12/2020 Hospital Encounter Radiation Oncology Nick Delgado MD 09/12/2020 Travel 09/11/2020 Hospital Encounter Radiation Oncology Ncik Delgado MD 09/11/2020 Travel 09/10/2020 Hospital Encounter [...] MD 09/03/2020 Hospital Encounter Radiation Oncology Milly SainiarcinoBetty MD prostate (Prim aislinn Dx) 09/03/2020 Travel 09/02/2020 Hospital Encounter Radiation Oncology Nick Delgado MD 09/02/2020 Travel 09/01/2020 Hospital Encounter Radiation Oncology Nick Delgado MD 09/01/2020 Travel 09/01/2020 Telephone Radiation Oncology Hang Menjivar RN 08/30/2020 Emergency Emergency Medicine Juan Pablo Hanson epression (Primary Dx); MD Rui Mild dehydratio n; Fatigue; Anemia of chron ic disease; Anorexia; Adenocarcinoma of prostate 08/30/2020 Travel 08/30/2020 Nurse Lou Durant RN 08/29/2020 Hospital Encounter Radiation Oncology Nick Delgado MD 08/29/2020 Travel 08/28/2020 Hospital Encounter Radiation Oncology Nick Delgado MD 08/28/2020 Travel 08/27/2020 Hospital Encounter Lab Crabtrey, Dysuria Serena, ELECTRONIC PLOTTING SYSTEM OPERATOR 08/27/2020 Hospital Encounter Radiation Oncology Nick Delgado MD 08/27/2020 Hospital Encounter Radiation Oncology Milly SainiarcIván MD prostate (Prim aislinn Dx) 08/27/2020 Orders Only Radiation Oncology Crabtrey, Adenocarc inoma of Serena, ELECTRONIC PLOTTING SYSTEM OPERATOR prostate (Prim aislinn Dx) 08/27/2020 Orders Only Radiation Oncology Crabtrey, Dysuria ( Primary Serena, ELECTRONIC PLOTTING SYSTEM OPERATOR Dx) 08/27/2020 Travel 08/26/2020 Hospital Encounter Radiation Oncology Nick Delgado MD 08/26/2020 Travel 08/24/2020 Orders Only Genitourinary Oncology Robert, Adeno carcinoma of Renju, SHOE WORKER prostate (Prima ry Dx) 08/22/2020 Travel 08/21/2020 Hospital Encounter Gastrointestinal Juan Pablo Hanson Biftoño cicular block (Primary Dx); - Surgery MD Rui Syncope; 08/24/2020 Daniel Lal, Hypotension; Paroxysmal atrial fibrillation; Nick Delgado, Chest pain, not otherwise specified; High troponin I level; Postprandial di arrhea; Contusion of he ad; Moderate dehydr ation; Essential (prim aislinn) hypertension; Adenocarcinoma of prostate; Pneumonia, not otherwise specified; Atrial fibrilla tion, not otherwise specified; Anemia in neopl astic disease 08/21/2020 Hospital Encounter Radiation Oncology Nick Delgado MD 08/21/2020 Documentation Radiation Oncology Ashley Jones, HEMOTHERAPIST 08/21/2020 Travel 08/20/2020 Hospital Encounter Radiation Oncology Nick Delgado MD 08/20/2020 Refill Genitourinary Oncology Sanjuanita Lerma Ad enocarcinoma of HEMOTHERAPIST prostate 08/20/2020 Refill Radiation Oncology Crabtrey, Adenocarc inoma of Serena, ELECTRONIC PLOTTING SYSTEM OPERATOR prostate 08/20/2020 Orders Only Radiation Oncology Crabtrey, Adenocarc inoma of Serena, ELECTRONIC PLOTTING SYSTEM OPERATOR prostate (Prim aislinn Dx) 08/20/2020 Travel 08/19/2020 Hospital Encounter Radiation Oncology Nick Delgado MD 08/19/2020 Travel 08/18/2020 Hospital Encounter Radiation Oncology Nick Delgado MD 08/18/2020 Travel 08/18/2020 Documentation Proton Therapy Marek Saini MD 08/11/2020 Hospital Encounter Radiation Oncology Nick Delgado MD 08/07/2020 Orders Only Gastroenterology, [place]brew, Personal h istory of Hepatology & Nutrition DEVAUGHN Gonzalez colon ic polyp (Primary Dx) 07/30/2020 Hospital Encounter Radiation Oncology Marek Saini MD 07/30/2020 Hospital Encounter Radiation Oncology Nick Delgado, Adenocarcinoma of MD prostate 07/30/2020 Hospital Encounter Radiation Oncology Nick Delgado, Adenocarcinoma of MD prostate 07/30/2020 Documentation Proton Therapy Marek Saini MD 07/30/2020 Orders Only Radiation Oncology Crabtrey, Adenocarc inoma of Serena, ELECTRONIC PLOTTING SYSTEM OPERATOR prostate (Prim aislinn Dx) 07/30/2020 Documentation Radiation Oncology Crabtrey, Serena, ELECTRONIC PLOTTING SYSTEM OPERATOR 07/30/2020 Documentation Proton Therapy Marek Saini MD 07/30/2020 Orders Only Radiation Oncology Crabtrey, Adenocarc inoma of Serena, ELECTRONIC PLOTTING SYSTEM OPERATOR prostate (Prim aislinn Dx) 07/30/2020 Travel 07/29/2020 Anesthesia Event Radiology Amos Velez MD Garcia, Miguel, MARIA R 07/29/2020 Hospital Encounter Radiology Nick Delgado, Adenoc arcinoma of MD prostate Henry Small, MEDICAL SALES ASSOCIATE Chapito Lopez MD 07/29/2020 Telephone Radiation Oncology Hang Menjivar RN 07/29/2020 Telephone Radiation Oncology Hang Menjivra RN 07/29/2020 Travel 07/28/2020 POEM Appointments Anesthesiology Kateryna Gu PA 07/28/2020 Anesthesia Event Endoscopy Alexis Cam MD 07/28/2020 Surgery Endoscopy [facility]inson DIAGNOSTIC FLEX IBLE Major, COLONOSCOPY MD Tanesha PROXIMAL TO SPL ENIC FLEXURE 07/28/2020 Hospital Encounter Endoscopy Stinson Adenocarc inoma of Major, prostate MD Tanesha 07/28/2020 Hospital Encounter Lab Brittanie, Adenocarc inoma of ELIZABETH Walters prostate 07/28/2020 Orders Only Radiology Susan Up PA 07/28/2020 Orders Only Radiology Susan Up, Adenocarcino ma of PA prostate (Prima ry Dx) 07/28/2020 Travel 07/27/2020 Clinical Support Nick Norman Encounte r for observation for Paola Rodriguez, other suspecte d RN exposure to biological agen t ruled out (Prim aislinn Dx) 07/27/2020 Travel 07/25/2020 Anesthesia Event Anesthesiology Dwain Estrada RN 07/25/2020 POEM Appointments Anesthesiology Nick Delgado MD 07/25/2020 Orders Only Gastroenterology, Martha Villarreal Colonoscop y planned Hepatology & Nutrition ELIZABETH Alvarado (Prim aislinn Dx) 07/25/2020 Refill Anesthesiology Dwain Estrada RN 07/17/2020 Orders Only Radiology Kateryna Gu PA 07/16/2020 Office Visit Genitourinary Oncology Nick Delgado Es sential (primary) hypertension (Primary Dx); Adenocarcinoma of prostate; Mixed hyperlipi demia; Chronic back pa in; Adjustment diso rder with mixed anxiety and depressed mood; Nocturia; Anemia in neopl astic disease; Insomnia, not o therwise specified; Overweight 07/16/2020 Hospital Encounter Radiation Oncology Milly Saini nocarcinoma of MD Marek prostate 07/16/2020 Travel 07/15/2020 Ancillary Procedure Radiology Sanjuanita Lerma, Adeno carcinoma of HEMOTHERAPIST prostate 07/15/2020 Ancillary Procedure Radiology Sanjuanita Lerma, HEMOTHERAPIST 07/15/2020 Ancillary Procedure Radiology Sanjuanita Lerma, Adeno carcinoma of HEMOTHERAPIST prostate 07/15/2020 Hospital Encounter Lab Sanjuanita Lerma, Adenoc arcinoma of HEMOTHERAPIST prostate 07/15/2020 Travel 06/12/2020 Orders Only Intensive Care Sanjuanita Lerma, HEMOTHERAPIST 05/31/2020 Immunization Prince Jin, SARS-CoV-2 MD Rick vaccination (Primary Dx) 05/31/2020 Travel 05/28/2020 Orders Only Radiation Oncology Crabtrey, Adenocarc inoma of Serena, ELECTRONIC PLOTTING SYSTEM OPERATOR prostate (Prim aislinn Dx) 05/19/[address] 05/18/2020 Orders Only Genitourinary Oncology Sanjuanita Lerma, Ad enocarcinoma of HEMOTHERAPIST prostate (Prima ry Dx) 05/16/2020 Office Visit Genitourinary Oncology Nick Delgado Ad enocarcinoma of prostate (Primary Dx); Essential (prim aislinn) hypertension; Mixed hyperlipi demia; Chronic back pa in; Adjustment diso rder with mixed anxiety and depressed mood; Nocturia; Anemia in neopl astic disease; Overweight; Other insomnia 05/16/2020 Hospital Encounter Lab Reginaldo Padilla, Adenocarc inoma of SHOE WORKER prostate 05/16/2020 Travel 05/12/2020 Orders Only Genitourinary Oncology Sanjuanita Lerma NP after 04/29/2020 Immunizations Name Administration Dates Next Due [employer] SARS-CoV-2 Vaccination 05/31/2020 remdesivir 03/07/2020, 03/06/2020, 03/05/2020, 03/04/2020, 03/03/2020 Surgical History Surgery Date Site/Laterality Comments LAPAROSCOPIC CHOLECYSTECOMY PROSTATE BIOPSY 09/14/2019 HERNIA REPAIR Bilateral SHOULDER SURGERY 03/14/2011 - Right 03/13/2012 [place] COLONOSCOPY FLX DX 07/28/2020 N/A Procedure: DIAGNOSTIC [...] Treatment Date Type Specialty Care Team Description 05/11/2021 Follow-Up Cardiology Harlan Brandon PA [address] [place], [place] [address] (Wo rk) Health Maintenance Due [...] Adenocarcinoma of Res ults for 6:34 AM MILLING MACHINE OPERATOR GEAR prostate this procedure are in the results section. Results CBC Routine 05/16/2020 Adenocarcinoma of Results fo r 6:34 AM MILLING MACHINE OPERATOR GEAR prostate this procedure are in the results section. .GLOMERULAR FILTRATION Routine 05/16/2020 Adenocarcinoma of Results for RATE 6:34 AM MILLING MACHINE OPERATOR GEAR prostate this procedure are in the results section. SERUM CREATININE Routine 05/16/2020 Adenocarcinoma of Result s for 6:34 AM MILLING MACHINE OPERATOR GEAR prostate this procedure are in the results section. TOTAL PROTEIN Routine 05/16/2020 Adenocarcinoma of Results f or 6:34 AM MILLING MACHINE OPERATOR GEAR prostate this procedure are in the results section. PROSTATE SPECIFIC Routine 05/16/2020 Adenocarcinoma of Resul ts for ANTIGEN 6:34 AM MILLING MACHINE OPERATOR GEAR prostate this procedure are in the results section. PHOSPHORUS LEVEL Routine 05/16/2020 Adenocarcinoma of Result s for 6:34 AM MILLING MACHINE OPERATOR GEAR prostate this procedure are in the results section. MAGNESIUM LEVEL Routine 05/16/2020 Adenocarcinoma of Results for 6:34 AM MILLING MACHINE OPERATOR GEAR prostate this procedure are in the results section. LACTATE DEHYDROGENASE Routine 05/16/2020 Adenocarcinoma of R esults for 6:34 AM MILLING MACHINE OPERATOR GEAR prostate this procedure are in the results section. GLUCOSE, RANDOM Routine 05/16/2020 Adenocarcinoma of Results for 6:34 AM MILLING MACHINE OPERATOR GEAR prostate this procedure are in the results section. FRACTIONATED BILIRUBIN Routine 05/16/2020 Adenocarcinoma of Results for 6:34 AM MILLING MACHINE OPERATOR GEAR prostate this procedure are in the results section. ELECTROLYTE PANEL Routine 05/16/2020 Adenocarcinoma of Resul ts for 6:34 AM MILLING MACHINE OPERATOR GEAR prostate this procedure are in the results section. SERUM CREATININE Routine 05/16/2020 Adenocarcinoma of 6:34 AM MILLING MACHINE OPERATOR GEAR prostate COMPLETE BLOOD COUNT W/ Routine 05/16/2020 Adenocarcinoma of DIFFERENTIAL 6:34 AM MILLING MACHINE OPERATOR GEAR prostate CARCINOEMBRYONIC Routine 05/16/2020 Adenocarcinoma of Result s for ANTIGEN 6:34 AM MILLING MACHINE OPERATOR GEAR prostate this procedure are in the results section. CALCIUM LEVEL TOTAL Routine 05/16/2020 Adenocarcinoma of Res ults for 6:34 AM MILLING MACHINE OPERATOR GEAR prostate this procedure are in the results section. BLOOD UREA NITROGEN Routine 05/16/2020 Adenocarcinoma of Res ults for 6:34 AM MILLING MACHINE OPERATOR GEAR prostate this procedure are in the results section. ASPARTATE Routine 05/16/2020 Adenocarcinoma of Results fo r AMINOTRANSFERASE 6:34 AM MILLING MACHINE OPERATOR GEAR prostate this proced ure are in the results section. ALKALINE PHOSPHATASE Routine 05/16/2020 Adenocarcinoma of Re sults for 6:34 AM MILLING MACHINE OPERATOR GEAR prostate this procedure are in the results section. ALBUMIN LEVEL Routine 05/16/2020 Adenocarcinoma of Results f or 6:34 AM MILLING MACHINE OPERATOR GEAR prostate this procedure are in the results section. ALANINE Routine 05/16/2020 Adenocarcinoma of Results fo r AMINOTRANSFERASE 6:34 AM MILLING MACHINE OPERATOR GEAR prostate this proced ure are in the results section. VITAMIN D 25 HYDROXY Routine 05/16/2020 Adenocarcinoma of Re sults for LEVEL 6:31 AM MILLING MACHINE OPERATOR GEAR prostate this procedure are in the results section. TESTOSTERONE LEVEL Routine 05/16/2020 Adenocarcinoma of Resu lts for 6:31 AM MILLING MACHINE OPERATOR GEAR prostate this procedure are in the results section. after 04/29/2020 Results EKG, 12-Lead (Portable) (08/31/2020)Only the most recent of3 resultswithin the time period is included. Specimen Narrative This result has an attachment that is no t available. Performing Organization Address City/State/ZIP Code Phon e Number MICHAEL IECG CT Head without Contrast (08/30/2020 5:35 PM CDT)Only the most recent of2 resultswithin the time period is included. Specimen Impressions [id number] - 08/30/2020 5:59 PM CDT No acute intracranial abnormality. Narrative [id number] - 08/30/2020 5:59 PM CDT FULL RESULT: [...] Organization Address City/State/ZIP Code Phon e Number [id number] Influenza A/B + COVID-19 Asymptomatic- L (08/30/2020 4:58 PM CDT) COVID19 Not Detected Not Detected [facility] (SARS-CoV-2) [facility] Influenza A Not Detected Not Detected [facility] Influenza B Not Detected Not Detected [facility] COVID19 SARS Inpatient Admission [facility] Indication CANCER CENTER Inf AB+Cov19 See Note [facility] Comment Comment: CANCER CENTER The [facility] SARS-CoV-2 & Influ jennifer A/B [...] fact sheet for patients provided by the loan secretary ([employer]) can be reviewed at: https://www.fda.gov/media/068480/download A fact sheet for Health Care providers is provided by the loan secretary ([employer]) and can be reviewed at: https://www.fda.gov/media/712271/download Influenza A and Influenza B negative results [...] and high-complexity tests. The Microbiology Laboratory at [facility], CLIA Accreditation # [id number] and CAP Accreditation #[id number], verified the performance characteristics of this assay. Internal controls are used to monitor all stages of the test process. Specimen Nasopharyngeal Swab Performing Organization Address City/State/ZIP Code Phon e Number [facility]CER Unless otherwise noted, [place] [address] [place] all lab tests performed by: Division of Pathology and Laboratory Medicine [facility] POC Troponin I (08/30/2020 4:55 PM CDT)Only the most recent of2 resultswithin the time period is included. POC CTNI 0.00 0.00 - 0.08 POC TELCOR Comment: ng/mL This cTnI test is performed by the Xvvuz-sx-Ehet italia zer method, and the result may [...] Clean Dev Yes POC [facility] Clinical Lab, [address] [place] [address]; Nub Card Tender: Kelsea Stafford MD Specimen Blood Performing Organization Address [facility] Phon e Number POC TELCOR (ABNORMAL) POC Glucose Screen (08/30/2020 4:40 PM CDT) Pathologist [facility] POC Glucose 106 (H) 70 - 99 [...] Sample Type Capillary POC TELCOR [facility]forming [facility]: [facility] Clinical Lab, [address] [place] [address]; Nub Card Tender: Kelsea Stafford MD Specimen Blood Performing Organization Address [facility] Phon e Number POC TELCOR .Serum Creatinine (08/30/2020 4:36 PM CDT)Only the most recent of8 results within the time period is included. Pathologist Sig nature Creatinine 0.77 0.67 - 1.17 mg/dL [facility] CAN[facility]ER C ENTER Specimen Blood Performing Organization Address [facility] Phon e Number [facility]CER Unless otherwise noted, [place] [address] CENTER all lab tests performed by: Division of Pathology and Laboratory Medicine [address] [place] [address] (ABNORMAL) .CBC (08/30/2020 4:36 PM CDT)Only the most recent of7 resultswithin the time period is included. WBC 4.9 4.0 - 11.0 [facility] K/uL [facility] RBC 3.82 (L) 4.50 - 6.00 [facility] M/uL [facility] CENTER Hgb 11.6 (L) 14.0 - 18.0 [facility] gm/dL [facility] Hct 35.5 (L) 40.0 - 54.0 % [facility] MCV 93 82 - 98 fL [facility] MCH 30.4 27.0 - 31.0 pg [facility] MCHC 32.7 31.0 - 36.0 [facility] gm/dL [facility] RDW-SD 45.1 35.1 - 46.3 fL [facility] RDW-CV 13.4 12.0 - 15.5 % [facility] Platelet count 145 140 - 440 K/uL [facility] MPV 11.4 (H) 4.0 - 10.4 fL [facility] INRBC 0.0 <=0.0 % [facility] Comment: [facility] The INRBC (instrument NRBC) value reflects the enumera tion of nucleated red blood cells contained in a 200uL samp le of whole blood analyzed by the instrument. This value may differ from the NRBC value reported in a manual differ ential, which is based on a 100 cell differential. Specimen Blood Performing Organization Address City/[facility] Phon e Number [facility] Unless otherwise noted, [address] all lab tests performed by: Division of Pathology and Laboratory Medicine [address] [place] [address] Clot Expiration Date (08/30/2020 4:36 PM CDT)Only the most recent of3 results within the time period is included. Pathologist Sig nature T & S Expiration 09/02/2020 [facility] Specimen Blood Performing Organization Address City/[facility] Phon e Number [facility] Unless otherwise noted, [address] all lab tests performed by: Division of Pathology and Laboratory Medicine [address] [place] [address] Glomerular Filtration Rate (08/30/2020 4:36 PM CDT)Only the most recent of8 resultswithin the time period is included. eGFR-AA 100 >=60 [facility] Comment: mL/min/1.73 [facility] Normal eGFR: >= 60 mL/min/1.73 m2 sq. [...] 5 Kidney failure <15 eGFR-DARIEN 87 >=60 [facility] Comment: mL/min/1.73 [facility] Normal eGFR: >= 60 mL/min/1.73 m2 sq. [...] Organization Address City/State/ZIP Code Phon e Number [facility] Unless otherwise noted, [place] [address] CENTER all lab tests performed by: Division of Pathology and Laboratory Medicine [place]5 Ligia Vu Fractionated Bilirubin (08/30/2020 4:36 PM CDT)Only the most recent of5 results within the time period is included. Bili Total 0.3 <=1.2 mg/dL [facility] Comment: [facility] CENTER Indocyanine Green (ICG) may cause falsely elevated bilirubin results. Total and direct bilirubin must not be measured from samples containing indocyanine green. False elevation of total roman irubin can be seen in patients with IgG concentrations above 28 g/L. Bili Direct <0.2Comment: <=0.3 mg/dL [facility] Indocyanine Green CAN[facility]ER CENTER (ICG) may cause falsely elevated bilirubin results. Total and direct bilirubin must not be measured from samples containing indocyanine green. Bili Indirect See NoteComment: 0.0 - 0.9 [facility] Unable to calculate mg/dL [facility]ENTER Indirect Bilirubin result due to some parameters are outside reportable range Specimen Blood Performing Organization Address City/[facility] Phon e Number [facility] Unless otherwise noted, [address] all lab tests performed by: Division of Pathology and Laboratory Medicine [address] [place] [address] TMP Interpretation Antibody Screen Negative (08/30/2020 4:36 PM CDT)Only the most recent of3 resultswithin the time period is included. TMP Auto Neg ABSC At the present time, patielvira t plasma shows no evidence of RBC alloantibodies. [facility] Interp Comment: CANCER CENTER MD Vazquez BELL [id number] Dictated by: JOSETTE CASILLAS MD - [id number] Dictated Date/Time: 09.01.19 8:45 AM CDT Transcribed Date/Time: 08.31.2020 8:45 AM CDT Electronically Signed By: MD Vazquez SOLIS [id number] on 08.31.2020 8:45 AM C Specimen Blood Performing Organization Address City/[facility] Phon e Number [facility] Unless otherwise noted, [address] all lab tests performed by: Division of Pathology and Laboratory Medicine [address] [place] [address] Partial Thromboplastin Time (08/30/2020 4:36 PM CDT)Only the most recent of2 resultswithin the time period is included. Pathologist Sig nature aPTT 31.4 24.7 - 36.8 second(s) [facility] Specimen Blood Performing Organization Address City/[facility] Phon e Number [facility] Unless otherwise noted, [address] all lab tests performed by: Division of Pathology and Laboratory Medicine [address] [facility] ABORh (08/30/2020 4:36 PM CDT)Only the most recent of3 resultswithin the time period is included. Pathologist Sig nature ABORh. O POS [facility] Specimen Blood Performing Organization Address [facility] Phon e Number [facility] Unless otherwise noted, [address] all lab tests performed by: Division of Pathology and Laboratory Medicine [facility]5 [facility] (ABNORMAL) Differential (08/30/2020 4:36 PM CDT)Only the most recent of7 resultswithin the time period is included. Neutrophil % 71.7 (H) 42.0 - 66.0 % [facility] Lymphocyte % 16.2 (L) 24.0 - 44.0 % [facility] Monocyte % 8.6 (H) 2.0 - 7.0 % [facility] Eosinophil % 2.5 1.0 - 4.0 % [facility] Basophil % 0.4 0.0 - 1.0 % [facility] IGRE % 0.6 (H)Comment: 0.0 - 0.4 % [facility] IGRE % count [facility] includes Metamyelocytes, Myelocytes, and Promyelocytes. Neutrophil Abs 3.50 1.70 - 7.30 [facility] Lymphocyte Abs 0.79 (L) 1.00 - 4.80 [facility] Monocyte Abs 0.42 0.08 - 0.70 [facility] Eosinophil Abs 0.12 0.04 - 0.40 [facility] Basophil Abs 0.02 0.00 - 0.10 [facility] IG Abs 0.03 0.00 - 0.04 [facility] Specimen Blood Performing Organization Address City/[facility] Phon e Number [facility] Unless otherwise noted, [address] all lab tests performed by: Division of Pathology and Laboratory Medicine [address] [place] Prothrombin Time with INR (08/30/2020 4:36 PM CDT)Only the most recent of3 resultswithin the time period is included. Pathologist Sig nature PT 13.3 11.5 - 13.9 second(s) [facility] INR 1.08 0.90 - 1.10 [facility] Specimen Blood Performing Organization Address City/[facility] Phon e Number [facility] Unless otherwise noted, [address] all lab tests performed by: Division of Pathology and Laboratory Medicine [address] [place], [place] [address] Antibody Screen (08/30/2020 4:36 PM CDT)Only the most recent of3 resultswithin the time period is included. Pathologist Sig nature ABSC. Negative ABSC [facility] Specimen Blood Performing Organization Address [facility] Phon e Number [facility] Unless otherwise noted, [address] all lab tests performed by: Division of Pathology and Laboratory Medicine [address] [place] [address] [place] (ABNORMAL) Uric Acid (08/30/2020 4:36 PM CDT) Pathologist Sig nature Uric Acid 3.1 (L) 3.4 - 7.0 mg/dL [facility] TER Specimen Blood Performing Organization Address [facility] Phon e Number [facility] Unless otherwise noted, [address] all lab tests performed by: Division of Pathology and Laboratory Medicine [address] [place] [address] [place] BUN (08/30/2020 4:36 PM CDT)Only the most recent of8 resultswithin the time period is included. Pathologist Sig nature BUN 14 6 - 23 mg/dL [facility] Specimen Blood Performing Organization Address City/[facility] Phon e Number [facility] Unless otherwise noted, [address] all lab tests performed by: Division of Pathology and Laboratory Medicine [address] [place], [place] [address]vard ALT (08/30/2020 4:36 PM CDT)Only the most recent of5 resultswithin the time period is included. Pathologist Sig nature ALT 18 <=41 U/L [facility] Specimen Blood Performing Organization Address [facility] Phon e Number [facility] Unless otherwise noted, [address] all lab tests performed by: Division of Pathology and Laboratory Medicine [address] [place] Aspartate Aminotransferase (08/30/2020 4:36 PM CDT)Only the most recent of5 resultswithin the time period is included. Pathologist Sig nature AST 17 <=40 U/L [facility] Specimen Blood Performing Organization Address [facility] Phon e Number [facility] Unless otherwise noted, [address] all lab tests performed by: Division of Pathology and Laboratory Medicine [address] TSH (08/30/2020 4:36 PM CDT) Pathologist Sig nature TSH 1.51 0.27 - 4.20 mcunit/mL [facility] Specimen Blood Performing Organization Address [facility] Phon e Number [facility] Unless otherwise noted, [address] all lab tests performed by: Division of Pathology and Laboratory Medicine [address] (ABNORMAL) Free T4 (08/30/2020 4:36 PM CDT) Pathologist Sig nature T4 Free 1.77 (H) 0.93 - 1.70 ng/dL [facility] Specimen Blood Performing Organization Address [facility] Phon e Number [facility] Unless otherwise noted, [address] all lab tests performed by: Division of Pathology and Laboratory Medicine [address] [place] Total Protein (08/30/2020 4:36 PM CDT)Only the most recent of5 resultswithin the time period is included. Pathologist Sig nature Total Protein 6.4 6.4 - 8.3 g/dL [facility] Specimen Blood Performing Organization Address [facility] Phon e Number [facility] Unless otherwise noted, [address] all lab tests performed by: Division of Pathology and Laboratory Medicine [address] Phosphorus Level (08/30/2020 4:36 PM CDT)Only the most recent of6 resultswithin the time period is included. Pathologist Sig nature Phosphorus 4.0 2.5 - 4.5 mg/dL [facility] TER Specimen Blood Performing Organization Address [facility] Phon e Number [facility] Unless otherwise noted, [address] all lab tests performed by: Division of Pathology and Laboratory Medicine [address] [place] Alkaline Phosphatase (08/30/2020 4:36 PM CDT)Only the most recent of5 results within the time period is included. Pathologist Sig nature Alk Phos 76 40 - 129 U/L [facility] Specimen Blood Performing Organization Address [facility] Phon e Number [facility] Unless otherwise noted, [address] all lab tests performed by: Division of Pathology and Laboratory Medicine [address] Magnesium Level (08/30/2020 4:36 PM CDT)Only the most recent of6 resultswithin the time period is included. Pathologist Sig nature Magnesium 2.0 1.6 - 2.6 mg/dL [facility] TER Specimen Blood Performing Organization Address [facility] Phon e Number [facility] Unless otherwise noted, [address] all lab tests performed by: Division of Pathology and Laboratory Medicine [address] Lipase (08/30/2020 4:36 PM CDT) Pathologist Sig nature Lipase Lvl 17 13 - 60 U/L [facility] Specimen Blood Performing Organization Address City/[facility] Phon e Number [facility] Unless otherwise noted, [address] all lab tests performed by: Division of Pathology and Laboratory Medicine [address] (ABNORMAL) Glucose Level (08/30/2020 4:36 PM CDT)Only the most recent of5 resultswithin the time period is included. Glucose Level 101 (H) 70 - 99 mg/dL [facility] Comment: [facility] Effective 10/08/15, the gluco se reference intervals have been updated based on [place] Diabetes Association guidelines (Standards of Medical Care [...] for diabetes Specimen Blood Performing Organization Address City/[facility] Phon e Number [facility] Unless otherwise noted, [address] all lab tests performed by: Division of Pathology and Laboratory Medicine [address] Calcium Level (08/30/2020 4:36 PM CDT)Only the most recent of7 resultswithin the time period is included. Pathologist Sig nature Calcium Lvl 9.3 8.4 - 10.2 mg/dL [facility] NTER Specimen Blood Performing Organization Address [facility] Phon e Number [facility] Unless otherwise noted, [address] all lab tests performed by: Division of Pathology and Laboratory Medicine [address] Amylase (08/30/2020 4:36 PM CDT) Pathologist Sig nature Amylase Lvl 96 28 - 100 U/L [facility] Specimen Blood Performing Organization Address [facility] Phon e Number [facility]CER Unless otherwise noted, [address] all lab tests performed by: Division of Pathology and Laboratory Medicine [address] [place] Albumin Level (08/30/2020 4:36 PM CDT)Only the most recent of5 resultswithin the time period is included. Pathologist Sig nature Albumin Lvl 3.9 3.5 - 5.2 gm/dL [facility] TER Specimen Blood Performing Organization Address [facility] Phon e Number [facility] Unless otherwise noted, [address] all lab tests performed by: Division of Pathology and Laboratory Medicine [address] Electrolyte Panel (08/30/2020 4:36 PM CDT)Only the most recent of7 results within the time period is included. Pathologist Sig nature Sodium Lvl 139 136 - 145 mEq/L [facility] Potassium Lvl 4.3 3.5 - 5.1 mEq/L [facility] Chloride 102 98 - 107 mEq/L [facility] CO2 27 22 - 29 mEq/L [facility] Anion Gap 10 4 - 14 mEq/L [facility] Specimen Blood Performing Organization Address City/State/ZIP Code Phon e Number [facility]ER Unless otherwise noted, [address] all lab tests performed by: Division of Pathology and Laboratory Medicine [address] [place] [address] [place] Urinalysis with Microscopic (08/27/2020 12:29 PM CDT) Pathologist Sig nature UA WBC <1 0 - 2 /HPF [facility] UA RBC 1 0 - 2 /HPF [facility] UA Mucous TRACE Not Seen-Trace /HPF [facility] UA Bacteria NOT SEEN NOT SEEN /HPF [facility] UA Squam Epi NOT SEEN None-Occasional [facility] /[facility] Specimen Urine Narrative [facility] - 1 1:18 PM CDT Some reporting parameters within the Urinalysis test have changed due to the implementation of new in strumentation in the [facility], allowi ng greater sensitivity of measurement. Urinalysis results reported by the [facility] using existing instrumentation, as well as Urinalysis t esting performed manually or by backup methodology at the [facility] will remain relatively unchanged. New reporting parameters and units will now be reported for all campuses. Performing Organization Address City/State/[facility] Code Phon e Number [facility] Unless otherwise noted, [address] all lab tests performed by: Division of Pathology and Laboratory Medicine [address] [place] [address] (ABNORMAL) Urinalysis w/Microscopic if Indicated (08/27/2020 12:29 PM CDT)Only the most recent of2 resultswithin the time period is included. Pathologist Sig nature UA Color Straw Straw-Yellow [facility] UA Appear Clear Clear [facility] UA Glucose NEG NEG mg/dL [facility] UA Bili NEG NEG [facility] UA Ketones NEG NEG mg/dL [facility] UA Spec Grav 1.008 1.003 - 1.035 [facility] UA Blood Small (A) NEG [facility] UA pH 7.0 5.0 - 9.0 [facility] UA Protein NEG NEG mg/dL [facility] UA Urobilinogen NEG NEG [facility] UA Nitrite NEG NEG [facility] UA Leuk Est NEG NEG [facility] Specimen Urine Performing Organization Address City/State/ZIP Code Phon e Number [facility] CANCER Unless otherwise noted, [address] all lab tests performed by: Division of Pathology and Laboratory Medicine [address] [place] Urine Culture (08/27/2020 12:29 PM CDT)Only the most recent of2 resultswithin the time period is included. Final Report No growth [facility] Path Review - The results have been review ed and electronically signed by Pathologist: [facility] Urine TIM BURNETT MD #[id number] [facility] R Specimen Urine, Clean Catch Performing Organization Address City/[facility] Code Phon e Number [facility]CER Unless otherwise noted, [address] all lab tests performed by: Division of Pathology and Laboratory Medicine [address] [place] XR Abdomen 1 View Portable (08/22/2020 2:59 PM CDT) Specimen Impressions [id number] - 08/22/2020 4:09 PM CDT Nonobstructive bowel gas pattern. Narrative [id number] - 08/22/2020 4:09 PM CDT FULL RESULT: [...] Organization Address City/State/ZIP Code Phon e Number [id number] Echocardiogram 2D Complete with Contrast (08/22/2020 11:39 [...] nature Troponin T 42 (H) <=18 ng/L [facility] Comment: [facility] < 19 ng/L Suggest [...] Organization Address City/State/ZIP Code Phon e Number [facility] Unless otherwise noted, [place], [place] [id number] [place] [address] all lab tests performed by: Division of Pathology and Laboratory Medicine [address] [facility] X-ray Chest 1 View Portable (08/21/2020 1:10 PM CDT) Specimen Impressions [id number] - 08/21/2020 1:46 PM CDT Mild opacity in the left midlung field is improved in appearance. It may represent residual or recurrent infectious/inflammatory process or scar. Follow- up chest radiography can be obtained for further evaluation. Narrative [id number] - 08/21/2020 1:46 PM CDT FULL RESULT: [...] Organization Address City/State/ZIP Code Phon e Number [id number] Respiratory Viral Panel + COVID-19, Nasopharyngeal Swab (08/21/2020 1:05 PM CDT) Adenovirus Not Detected Not Detected [facility] Coronavirus 229E Not Detected Not Detected [facility] Coronavirus HKU1 Not Detected Not Detected [facility] Coronavirus NL63 Not Detected Not Detected [facility] Coronavirus OC43 Not Detected Not Detected [facility] COVID19 (SARS-CoV-2) Not Detected Not Detected [facility] Human Metapneumovirus Not Detected Not Detected [facility] Human Not Detected Not Detected [facility] Rhinovirus/Enterovirus [facility] Influenza A Not Detected Not Detected [facility] Influenza A H1 Not Detected Not Detected [facility] Influenza A H1 2009 Not Detected Not Detected [facility] Influenza A H3 Not Detected Not Detected [facility] Influenza B Not Detected Not Detected [facility] Parainfluenza 1 Not Detected Not Detected [facility] Parainfluenza 2 Not Detected Not Detected [facility] Parainfluenza 3 Not Detected Not Detected [facility] Parainfluenza 4 Not Detected Not Detected [facility] Respiratory Syncytial Not Detected Not Detected [facility] Virus [facility] Bordetella Not Detected Not Detected [facility] Parapertussis [facility] Bordetella pertussis Not Detected Not Detected [facility] Chlamydiophila Not Detected Not Detected [facility] pneumoniae [facility] Mycoplasma pneumoniae Not Detected Not Detected [facility] Specimen Nasopharyngeal Swab Narrative [facility] - 1 2:12 PM CDT The BioFire RP2.1 is a real-time, nested multiplexed polymerase chain reaction test designed to simul taneously identify nucleic acids from 22 different viruses and bacteria associated with respiratory tract infection, including SARS-CoV-2, from a single nasopharyngeal swab (FARM ADVISOR) specimen. Spec ifically, the SARS-CoV-2 primers contained [...] high-complexity tests. The M icrobiology Laboratory at [facility], CLIA Accreditation #[id number] and CAP Accreditation #[id number], verified the performance characteristics of this assay. Microbiology Laboratory at [facility] performs the assay using the [facility]. Internal control s are used to monitor all stages of the test proces s. Performing Organization Address City/State/[facility] Code Phon e Number [facility] CANCER Unless otherwise noted, [place] [address] CENTER all lab tests performed by: Division of Pathology and Laboratory Medicine [address] [place] [address] POC VBG+Lac (08/21/2020 12:47 PM CDT) POC VB pH 7.40 7.31 - 7.41 [...] Clean Dev Yes POC TELCOR [facility] P[facility] Clinical Lab, [address] [place] [address], [place] [address]; Nub Card Tender: Kelsea Stafford MD Specimen Blood Performing Organization [...] 18 and older. According to the National [facility]'s Kidney Disease Outcome Quality Initiative (KDOQI) [...] 18 and older. According to the National [facility]'s Kidney Disease Outcome Quality Initiative (KDOQI) classification [...] Clean Dev Yes POC TELCOR [facility] POC [facility] Clinical Lab, [address] [place] [id number]; Nub Card Tender: Kelsea Stafford MD Specimen Blood Performing Organization Address City/State/ZIP Code Phon e Number POC TELCOR (ABNORMAL) Cardiac Panel (08/21/2020 12:27 PM CDT) CK 102 39 - 308 U/L [facility] CK MB 3.2 <=10.4 ng/mL [facility] Troponin T 26 (H) <=18 ng/L [facility] Comment: [facility]ENTER < 19 ng/L Suggest [...] low results. Specimen Blood Performing Organization Address City/[facility] Phon e Number [facility] CANCER Unless otherwise noted, [address] all lab tests performed by: Division of Pathology and Laboratory Medicine [address] Blood Culture- Peripheral (08/21/2020 12:27 PM CDT) Pathologist [facility] Final Report No growth [facility] Path Review - Immunity and antibiotic use may render culture negative. Ongoing infection requires repeat culture. [facility] Bottle/Isolator The results have been review ed and electronically signed by Pathologist: [facility] TIM BURNETT MD #[id number] Specimen Blood - Venipuncture Narrative [facility] - 1 5:41 PM CDT Short draw may invalidate quantitative blood culture results. 08/21/2020 1:52:33 PM CDT Performing Organization Address [facility] Phon e Number [facility] Unless otherwise noted, [address] all lab tests performed by: Division of Pathology and Laboratory Medicine [address] Fibrinogen (08/21/2020 12:27 PM CDT) Pathologist Sig nature Fibrinogen 324 214 - 503 mg/dL [facility] CANCER [facility] Specimen Blood Performing Organization Address City/[facility] Phon e Number [facility] Unless otherwise noted, [address] all lab tests performed by: Division of Pathology and Laboratory Medicine [address] Dimer (08/21/2020 12:27 PM CDT) D-Dimer 0.30 0.10 - 0.50 [facility] Comment: mcg/ml [facility] The cut off value for exclusion of venous thromboembol ism is <0.51 mcg/mL FEUs (fibrinogen equivalent units). Specimen Blood Performing Organization Address [facility] Phon e Number [facility] Unless otherwise noted, [address] all lab tests performed by: Division of Pathology and Laboratory Medicine [facility] [place] CRP (C-reactive protein) (08/21/2020 12:27 PM CDT) Pathologist Sig nature CRP 0.53 mg/L [facility] Comment: [facility] Reference ranges for HS CRP assay are as follows: Reference ranges when used to assess cardiac risk: <1.00 mg/L Low cardiovascular risk 1.00-3.00 mg/L Average cardiovascular risk >3.00 mg/L High cardiovascular risk. Reference ranges when used to assess inflammatory resp onses: Less than or equal to 10.00 mg/L. Specimen Blood Performing Organization Address [facility] e Number [facility] Unless otherwise noted, [address] all lab tests performed by: Division of Pathology and Laboratory Medicine [facility] [place] LDH (08/21/2020 12:27 PM CDT)Only the most recent of3 resultswithin the time period is included. LDH 176Comment: Results 135 - 225 U/L [facility] greater than 1651 U/L [facility] may not be reliable due to matrix effect with extended dilution as it exceeds the loan secretary s recommended limit. Caution should be exercised when interpreting such values and done in conjunction with clinical context. Specimen Blood Performing Organization Address [facility] Phon e Number [facility] CANCER Unless otherwise noted, [address] all lab tests performed by: Division of Pathology and Laboratory Medicine [facility] IR Transperineal Placement Biodegradable Material (07/29/2020 2:48 PM CDT) Specimen Narrative Chapito Lopez MD - 07/30/2020 9:03 AM CDT Date of Procedure: 07/29/20 Attending Physician: Chapito Lopez MD Seismic Interpreter: Matt Aaron MD Pre-procedure Diagnosis: Prostate Cancer [...] Procedure: 07/29/20 Attending Physician: Chapito Lopez MD Seismic Interpreter: Matt Aaron MD Pre-procedure Diagnosis: Prostate Cancer [...] Pathologist Sig nature Submitted 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 by Aracely Randle Melanosis srinath. MD Nicole on 07/30/2020 at 4 :46 PM B: [...] hyperplastic polyp(s). Melanosis coli. Gross Description A: [facility] Colon, ascending, 3mm ascend [...] submitted in F1. TERESITA Biomarker Block(s) N/A [facility] Disclaimer "Some tests reported [facility] here may have been developed and performance characteristics determined by [facility] Pathology and Laboratory Medicine. These tests have not been specifically cleared or approved by the U.S. Food and Drug Administration. If applicable, controls were reviewed and showed appropriate reactivity." Specimen Tissue - Colon, Ascending Tissue - Colon, Ascending Tissue - Colon, Transverse Tissue - Colon, Descending Tissue - Colon, Sigmoid Tissue - Colon, Rectosigmoid Performing Organization Address City/State/ZIP Code Phon e Number [facility] [place] [address] [address] [facility] ENDOSCOPY NOTE RESULTS (07/28/2020 11:24 AM CDT) [...] ions were monitored continuously.The Olympus CF-HQ1 90L ([id number]) adult colonoscope was introduced thr ough the anus and advanced to the terminal ileum . The colonoscopy was performed without diffic ulty. The patient tolerated the procedure well . The quality of the bowel preparation wa s evaluated using the BBPS ([place] Bowel Preparat ion Scale) with scores of: Right Colon = 3 (ent jaswinder mucosa seen well with no residual staining, [...] (07/28/2020 10:51 AM CDT)Only the most recent of3 resultswithin the time period is included. Pathologist Sig nature Glucose Random 108 70 - 199 mg/dL [facility] Comment: Effective 10/08/15, the gluco se reference intervals have been updated based on [place] Diabetes Association guidelines (Standards of Medical Care in Diabetes 2016. Diabetes Care 2016; 39: S13-S22) Fasting blood glucose: Normal: 70 99 mg/dL Impaired fasting glucose (in creased risk for diabetes or pre-diabetes): 100 125 mg/dL Diabetes mellitus: >/= 126 mg/dL Random blood glucose: Normal: 70 199 mg/dL Note: Random glucose >100 mg/dL is assoc iated with increased risk for diabetes Testing Performed at [facility] Lab Towel Inspector [facility], [address] [place] [address], [address], [place] [id number] Specimen Blood Performing Organization Address [facility] Phon e Number [address] [place] [address] [address] Anion Gap (07/28/2020 10:51 AM CDT) Pathologist Sig nature Anion Gap 10Comment: Testing 4 - 14 mEq/L [facility] Performed at [facility] Lab Towel Inspector [facility], [address] [place] [address], [address], [place] [address] Specimen Blood Performing Organization Address [facility] Phon e Number [address] [place] [address] [address] (ABNORMAL) Testosterone Level (07/28/2020 10:51 AM CDT)Only the most recent of3 resultswithin the time period is included. Testoster Tot 9 (L) 193 - 740 [facility] Comment: ng/dL [facility] Reference Ranges: Male: Age 20 - 49 249 - 836 Age >=50 193 - 740 Female: Age 20 - 49 8 - 48 Age >=50 3 - 41 Specimen Blood Performing Organization Address [facility] Phon e Number [facility] CANCER Unless otherwise noted, [place] [address] CENTER all lab tests performed by: Division of Pathology and Laboratory Medicine [address] [place] Sodium Level (07/28/2020 10:51 AM CDT) Pathologist Sig critical [facility] hospital Sodium Lvl 142Comment: Testing 136 - 145 mEq/L [facility] Performed at [facility] Lab Towel Inspector [facility], [address] [facility], [address], [place] [address] Specimen Blood Performing Organization Address [facility] Phon e Number [facility] [address] [facility] [place] [address] [address] Prostate Specific Antigen (PSA) - Diagnostic (07/28/2020 10:51 AM CDT)Only the most recent of3 resultswithin the time period is included. PSA 1.1 0.0 - 4.0 ng/mL [facility] Comment: Results greater than 4519 ng /mL may not be reliable due to matrix effect with extended dilution as it exceeds the loan secretary's recommended limit. Caution should be exercised when interpreting such lor ues and done in conjunction with clinical context. Testing Performed at [facility] Lab Towel Inspector [facility], [address] [facility], [address], [place] [address] PSA Indication Diagnostic [facility] Specimen Blood Performing Organization Address [facility] Phon e Number [facility] [address] [facility] [place] [address] [address] Potassium (07/28/2020 10:51 AM CDT) Pathologist Sig critical [facility] Potassium Lvl 4.5Comment: Testing 3.5 - 5.1 mEq/L [facility] Performed at [facility] Lab Towel Inspector [facility], [address], [address], [place] [address] Specimen Blood Performing Organization Address [facility] Phon e Number [facility] [address] [facility] [place] [address] [address] Chloride Level (07/28/2020 10:51 AM CDT) Pathologist Sig nature Chloride 106Comment: Testing 98 - 107 mEq/L [facility] Performed at [facility] Lab Towel Inspector [facility], [address], [address], [place] [address] Specimen Blood Performing Organization Address [facility] Phon e Number [facility] [address] [facility] [place] [address] [address] Carbon Dioxide Level (07/28/2020 10:51 AM CDT) Pathologist Sig nature CO2 26Comment: Testing 22 - 29 mEq/L [facility] Performed at [facility] Towel Inspector [facility], [address] [facility], [address], [place] [address] Specimen Blood Performing Organization Address City/State/ZIP Code Phon e Number [facility] [address] [facility] [place] [address] [address] COVID-19 (SARS-CoV-2) PCR-Asymptomatic [facility] (07/27/2020 10:34 AM CDT) COVID19 (SARS Not Detected Not Detected [facility] CoV-2) Result Comment: [facility] This test is a qualitative r everse-transcriptase polymerase chain reaction (RT- PCR) developed for the [employer]ALTER Go Try It On0 system and intended for the detection of [...] were verified by the Microbiology Laboratory at [facility] [place], CLIA Accreditation #: [id number] and CAP Accreditation #: [id number]. Results must be interpreted within the context [...] john ting if clinically indicated. COVID19 SARS HEMOTHERAPIST Swab [facility] Source [facility] COVID19 SARS Pre-Out of OR [facility] Indication Procedure [facility] Specimen Nasopharyngeal Swab Performing Organization Address City/State/ZIP Code Phon e Number [facility] CANCER Unless otherwise noted, [place] [address] CENTER all lab tests performed by: Division of Pathology and Laboratory Medicine [address] [facility] [address] Chest Abdomen Pelvis with Contrast (07/15/2020 6:44 PM CDT) Specimen Impressions [id number] - 07/16/2020 10:43 AM CDT No metastatic disease in the chest, abdo men or pelvis Narrative [id number] - 07/16/2020 10:43 AM CDT FULL RESULT: [...] Organization Address City/State/ZIP Code Phon e Number [id number] [place] Bone Scan Whole Body (07/15/2020 1:56 PM CDT) Specimen Impressions [id number] - 07/15/2020 2:02 PM CDT Likely degenerative sites of activity similar compared to February 2020 study. No new or suspicious progressive osseous lesions to suggest active osseous meta stases. Narrative [id number] - 07/15/2020 2:02 PM CDT FULL RESULT: Examination: Whole-Body Bone Scan, 1:56 PM Clinical History: 79-year-old male with [...] 07/15/2020 FULL RESULT: Examination: Whole-Body Bone Scan, 1:56 PM Clinical History: 79-year-old male with [...] suggest active osseous metastases. Performing Organization Address City/[facility] Code Phon e Number [id number] Vitamin D 25OH (07/15/2020 11:27 AM CDT)Only the most recent of2 resultswithin the time period is included. 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 Comment: Reference Ranges: Smoker 0.0 - 5.5 Testing Performed at [facility] Lab Towel Inspector [facility], [address] [facility], [address], [place] [address] Specimen Blood Performing Organization Address [facility] Phon e Number [address] [place] [address] [address] after 04/29/2020 Advance Directives Code Status Date Activated Date Inactivated Comments Full Code 08/21/2020 11:52 PM 08/24/2020 5:55 PM Full Code 03/02/2020 8:29 PM 03/07/2020 11:09 PM Full Code 02/26/2020 9:33 PM 02/29/2020 8:36 PM Care Teams Blind Eyeletter Relationship Specialty Start Date End Date Pako Lopez MD PCP - External Urology 10/11/19 [facility]: Referring [address] [place] [id number] Nick Delgado MD PCP - General Genitourinary Oncology 01/25/[address] [place] [phone] Margarita [facility]ain[facility], Consulting Physician Radiation Oncology 02/14/[address] [place] [phone]
--- OUTSIDE RECORDS SUMMARY | 2021-04-29 17:58 | XMS REPORT | Continuity of Care Document ---
:1940 Author Organization [facility] t Address [address] [place] [address] Care Team Providers Name Role Phone [phone] Primary Care Physician Unavailable Brandon JOHNSON Attending Clinician Narciso PERALTA Attending Clinician Zachary BULLOCK M Attending Clinician Unavailable Jesu [facility] Attending Clinician Chayito JEFFERY Attending Clinician Otto BULLOCK M Attending Clinician Unavailable LUKASZ Attending Clinician Unavailable Lukasz ANDINO Attending Clinician Morena JEFFERY, M Attending Clinician Carmen Ng RN Attending Clinician Ian BOMB TECHNICIAN, S Attending Clinician Aleksandr JOHNSON Attending Clinician Keke FRIED Attending Clinician Unavailable ADNNY Attending Clinician Unavailable Danny ANDINO Attending Clinician Sheila ANDINO Attending Clinician SHEILA Attending Clinician Unavailable TIMO Attending Clinician Unavailable Vonnie Jones NP Attending Clinician Lele PT, T. Attending Clinician Rui Hanson MD Attending Clinician Andreea Bean RN Attending Clinician Unavailable Lukasz ANDINO Attending Clinician Robert CANTOR Attending Clinician Jose CANTOR Attending Clinician Geovanny HECK Attending Clinician Jessica ANDINO Attending Clinician Jeramy Velez MD. Attending Clinician Brittanie JOHNSON E Attending Clinician Milad Rachel MD Attending Clinician Tutu ANDINO S. Attending Clinician Jeovanny JOHNSON Attending Clinician Michael BULLOCK Attending Clinician Unavailable Natalie BULLOCK, S Attending Clinician Unavailable Jenny Raman Attending Clinician Davin ANDINO Attending Clinician Ignacia BARTON, P Attending Clinician Randy CANTOR Attending Clinician Dashawn Massey DO Attending Clinician CHAYITO Attending Clinician Unavailable Travon Lopez MD Attending Clinician Se Silver Attending Clinician Richardson BULLOCK E Attending Clinician TRAVON LOPEZ Attending Clinician Unavailable [...] 00:00: n 00 Pneumonia Pneumonia Disease Active 6-11 Anderso 00:00: n 00 Hypotensio Hypotensio Disease Active M D n n 6- Anderso 00:00: n 00 Insomnia Insomnia Disease Active 3-05 Anderso 00:00: n 00 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 00:00: n 00 Overweight Overweight Disease Active M D 2- Anderso 00:00: n 00 Chronic Chronic Disease [...] Disease Active 2019-03 Last MD (primary) (primary) 2 Assessmen A nderso hypertensi hypertensi 00:00: t [...] 00:00:00 16:30:30 Nathan o 00:00: n 00 Allergies, Adverse Reactions, Alerts Allergy Allergy Status Severity Reaction(s) Onset Inactive Treating Comm ents Source Name Type Date Date Clinician NO KNOWN Drug Active Holly ALLERGLINDSEY Mcfarlane ity of S [facility] Social History Social Habit Start Date Stop Date Quantity Comments Source Exposure to Not sure [facility] SARS-CoV-2 (event) [facility] History of tobacco Current smoker MD Valdivia use History SDOH MD Valdivia Alcohol Comment Alcohol intake 2020-10-31 2020-10-31 Lifetime MD Mir n 00:00:00 00:00:00 non-drinker (finding) Cigarettes smoked 2020-02-13 2020-02-13 MD Bernard barnard current (pack per 00:00:00 00:00:00 day) - Reported Cigarette 2020-02-13 2020-02-13 MD Valdivia pack-years 00:00:00 00:00:00 Tobacco use and 2020-02-13 2020-02-13 Smokeless MD [place] on exposure 00:00:00 00:00:00 tobacco non-user History [facility] 2020-02-13 2020-02-13 1 MD [place] Alcohol Frequency 00:00:00 00:00:00 History [facility] 2020-02-13 2020-02-13 99 MD [place] Alcohol Std Drinks 00:00:00 00:00:00 History [facility] 2020-02-13 2020-02-13 1 MD [place] Alcohol Binge 00:00:00 00:00:00 Tobacco Comment 2020-02-13 2020-02-13 used to smoke; MD Jaclyn noel 00:00:00 00:00:00 quit 12 years ago Sex Ass[birth year] At [birth year] MD [place] 00:00:00 00:00:00 Smoking Status Start Date Stop Date Source Unknown if ever smoked [facility] Former smoker 2019-10-11 00:00:00 2019-10-11 00:00:00 [facility] Medications Ordered Filled Start Stop Current Ordering [...] pain. As needed for back pain cholecalcif 2021-0 Yes 2000U Take 2,000 MD gina, 8-16 [...] capsule 00 by mouth at bedtime. amLODIPine 2020-0 2020- No 5mg Take 5 mg M D (NORVASC) 5 08-24 by mouth And erso mg tablet 15:55: 00:00 daily. n 04 :00 enalapril 2020-0 2020- No 10mg Take 10 mg M [...] 2020- No 10mg Take 1 MD (VASOTEC) 08-24-13 tablet (10 And erso 10 mg 00:00: [...] 2020- No 10mg Take 1 MD (VASOTEC) 08-22 tablet (10 And erso 10 mg 00:00: 00:00 mg) by n tablet 00 :00 mouth daily. Hold dose if systolic blood pressure (top number) is less than 110. 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 tamsulosin No Adenocarcin .4mg Take 1 MD (FLOMAX) 07-30 07-15 geoff of capsule Dave so 0.4 mg 24 00:00: 00:00 prostate (0.4 mg) n hr capsule 00 :00 by mouth at bedtime. bicalutamid 2020- No Adenocarcin 50mg Take 1 MD e (CASODEX) 07-30-19 geoff of tablet (50 Anderso 50 mg 00:00: 00:00 prostate mg) by n tablet 00 :00 mouth daily. ciprofloxac Adenocarcin 250mg Take 1 MD in HCl 07-29 05-22 geoff of tablet Anderso (Cipro) 250 00:00: 04:59 prostate (250 mg) n mg tablet 00 :00 by mouth twice daily for 3 days. sodium,pota 2020- No Colonoscopy Take as MD headley,mag 07-25 planned directed An derso sulfates 00:00: 00:00 for n (Suprep) 00 :00 colonoscop 17.5-3.13-1 y prep .6 gram solr degarelix No 240mg Inject 240 MD (FIRMAGON) 5-05 05-05 mg under Bernard rso 120 mg/3 mL 13:52: 00:00 the skin n solr 33 :00 once. injection Last dose 04/18/2020 acetaminoph No 500mg Take 500 MD en 3-05 [...] No Adenocarcin 75mg Take 1 MD (Effexor 2-13 geoff of capsule Dave so XR) 75 mg 00:00: 00:00 prostate (75 mg) by n 24 hr 00 :00 mouth at capsule bedtime. zolpidem 2020- No Adenocarcin 5mg Take 1 MD (Ambien) 5 2 03-05 geoff of tablet (5 A nderso mg tablet 00:00: 00:00 prostate mg) by n 00 :00 mouth nightly as needed for sleep. tamsulosin 2019-0 Yes [id number] .4mg Take 1 Univers 0.4 mg 24 7-13 capsule by ity of hr capsule 00:00: mouth [place] 00 daily. Medical Branch tamsulosin 2019-0 Yes [id number] .4mg Take 1 Univers 0.4 mg 24 7-13 capsule by ity of hr capsule 00:00: mouth [place] 00 daily. Medical Branch tamsulosin 2019-0 Yes [id number] .4mg Take 1 Univers 0.4 mg 24 7-13 capsule by ity of hr capsule 00:00: mouth [place] 00 daily. Medical Branch tamsulosin 2020-0 Yes [id number] .4mg Take 1 Univers 0.4 mg 24 7-13 capsule by ity of hr capsule 00:00: mouth [place] 00 daily. Medical Branch tamsulosin 2020-0 Yes [id number] .4mg Take 1 Univers 0.4 mg 24 7-13 capsule by ity of hr capsule 00:00: mouth [place] 00 daily. Medical Branch tamsulosin 2020-0 Yes [id number] .4mg Take 1 Univers 0.4 mg 24 7-13 capsule by ity of hr capsule 00:00: mouth [place] 00 daily. Medical Branch tamsulosin 2020-0 Yes [id number] .4mg Take 1 [facility] 0.4 mg 24 7-13 capsule by ity of hr capsule 00:00: mouth [place] 00 daily. Medical Branch tamsulosin 2020-0 Yes [id number] .4mg Take 1 Univers 0.4 mg 24 7-13 capsule by ity of hr capsule 00:00: mouth [place] 00 daily. Medical Branch tamsulosin 2020-0 Yes [id number] .4mg Take 1 Univers 0.4 mg 24 7-13 capsule by ity of hr capsule 00:00: mouth [place] 00 daily. Medical Branch tamsulosin 2020-0 Yes [id number] .4mg Take 1 Univers 0.4 mg 24 7-13 capsule by ity of hr capsule 00:00: mouth [place] 00 daily. Medical Branch tamsulosin 2020-0 Yes [id number] .4mg Take 1 [facility] 0.4 mg 24 7-13 capsule by ity of hr capsule 00:00: mouth [place] 00 daily. Medical Branch tamsulosin 2020-0 Yes [id number] .4mg Take 1 Univers 0.4 mg 24 7-13 capsule by ity of hr capsule 00:00: mouth [place] 00 daily. Medical Branch tamsulosin 2020-0 Yes [id number] .4mg Take 1 Univers 0.4 mg 24 7-13 capsule by ity of hr capsule 00:00: mouth [place] 00 daily. Medical Branch tamsulosin 2020-0 Yes [id number] .4mg Take 1 [facility] 0.4 mg 24 7-13 capsule by ity of hr capsule 00:00: mouth [place] 00 daily. Medical Branch tamsulosin 2020-0 Yes [id number] .4mg Take 1 [facility] 0.4 mg 24 7-13 capsule by ity of hr capsule 00:00: mouth [place] 00 daily. Medical Branch tamsulosin 2020-0 Yes [id number] .4mg Take 1 Univers 0.4 mg 24 7-13 capsule by ity of hr capsule 00:00: mouth [place] 00 daily. Medical Branch tamsulosin 2020-0 Yes [id number] .4mg Take 1 Univers 0.4 mg 24 7-13 capsule by ity of hr capsule 00:00: mouth [place] 00 daily. Medical Branch tamsulosin 2020-0 Yes [id number] .4mg Take 1 [facility] 0.4 mg 24 7-13 capsule by ity of hr capsule 00:00: mouth [place] 00 daily. Medical Branch tamsulosin 2020-0 Yes [id number] .4mg Take 1 [facility] 0.4 mg 24 7-13 capsule by ity of hr capsule 00:00: mouth [place] 00 daily. Medical Branch tamsulosin 2020-0 Yes [id number] .4mg Take 1 [facility] 0.4 mg 24 7-13 capsule by ity of hr capsule 00:00: mouth [place] 00 daily. Medical Branch tamsulosin 2020-0 Yes [id number] .4mg Take 1 Univers 0.4 mg 24 7-13 capsule by ity of hr capsule 00:00: mouth [place] 00 daily. Medical Branch tamsulosin 2019-0 Yes [id number] .4mg Take 1 [facility] 0.4 mg 24 7-10 capsule by ity of hr capsule 00:00: mouth [place] 00 daily. Medical Branch tamsulosin 2019-0 2020- No [id number] .4mg Take 1 Univers 0.4 mg 24 7-10 07-12 capsule by ity of hr capsule 00:00: 00:00 mouth [place] 00 :00 daily. Medical Branch cefTRIAXone 2019-0 2020- No 500mg Univ ers (ROCEPHIN) 09-13 [...] [place] 80 mg 00 :00 1 dose, [facility] Tue09/14/19 Branch at 1045, HA
Re ason for Anti-Infec tive: Surgical Prophylaxi s
Surgi adilene Prophylaxi s: Genitourin aislinn
Dur ation of therapy: within 24 hours of surgery cefTRIAXone 2019-0 2020- No 500mg 500 mg, U nivers (ROCEPHIN) 09-13 Intramuscu it y of injection 15:45: 15:10 lar, ONCE, [place] 500 mg 00 :00 1 dose, [facility] Tue09/14/19 Branch at 1045, HA
Re ason for Anti-Infec tive: Surgical Prophylaxi s
Surgi adilene Prophylaxi s: Genitourin aislinn
Dur ation of therapy: within 24 hours of surgery cefTRIAXone 2019-0 2020- No 500mg Univ ers (ROCEPHIN) 09-13 ity of injection 15:45: 15:10 [place] 500 mg 00 :00 Medical Branch gentamicin 2020-0 2020- No 80mg Univer s INTRAMUSCUL 09-13 ity of AR syringe 15:45: 15:10 [place] 80 mg 00 :00 [facility] Branch gentamicin 2020-0 2020- No 80mg 80 mg, Univ ers INTRAMUSCUL 09-13 Intramuscu i ty of AR syringe 15:45: 15:10 lar, ONCE, [place] 80 mg 00 :00 1 dose, Medical Tue09/14/19 Branch at 1045, HA
Re ason for Anti-Infec tive: Surgical Prophylaxi s
Surgi adilene Prophylaxi s: Genitourin aislinn
Dur ation of therapy: within 24 hours of surgery cefTRIAXone 2020-0 2020- No 500mg 500 mg, U nivers (ROCEPHIN) 09-13 Intramuscu it y of injection 15:45: 15:10 lar, ONCE, [place] 500 mg 00 :00 1 dose, Medical Tue09/14/19 Branch at 1045, HA
Re ason for Anti-Infec tive: Surgical Prophylaxi s
Surgi adilene Prophylaxi s: Genitourin aislinn
Dur ation of therapy: within 24 hours of surgery cefTRIAXone 2020-0 2020- No 500mg Univ ers (ROCEPHIN) 09-13 ity of injection 15:45: 15:10 [place] 500 mg 00 :00 [facility] gentamicin 2020-0 2020- No 80mg Univer s INTRAMUSCUL 09-13 ity of AR syringe 15:45: 15:10 [place] 80 mg 00 :00 [facility] gentamicin 2020-0 2020- No 80mg 80 mg, Univ ers [...] within 24 hours of surgery mineral oil 2019-0 2020- No [id number] 1{enema Insert 1 Univers (READY-TO-U 09-06 } Enema into i ty of SE ENEMA, 00:00: 04:59 rectum [place] MIN OIL,) 00 :00 once now Medica l enema for 1 Branch dose. Perform morning of procedure. mineral oil 2019-0 2020- No [id number] 1{enema Insert 1 Univers (READY-TO-U 09-06 } Enema into i ty of SE ENEMA, 00:00: 04:59 rectum [place] MIN OIL,) 00 :00 once now Medica l enema for 1 Branch dose. Perform morning of procedure. mineral oil 2019-0 2020- No [id number] 1{enema Insert 1 [facility] (READY-TO-U 09-06 } Enema into i ty of SE ENEMA, 00:00: 04:59 rectum [place] MIN OIL,) 00 :00 once now Medica l enema for 1 Branch dose. Perform morning of procedure. mineral oil 2019-0 2020- No [id number] 1{enema Insert 1 [facility] (READY-TO-U 09-06 } Enema into i ty of SE ENEMA, 00:00: 04:59 rectum [place] MIN OIL,) 00 :00 once now Medica l enema for 1 Branch dose. Perform morning of procedure. ciprofloxac 2020-0 Yes [id number] 500mg Take 1 Univers in HCl 500 6-25 tablet by ity of mg tablet 00:00: mouth [place] 00 every 12 Medical (twelve) Branch hours. Start 1 day before procedure. ciprofloxac 2020-0 Yes [id number] 500mg Take 1 Univers in HCl 500 6-25 tablet by ity of mg tablet 00:00: mouth [place] 00 every 12 Medical (twelve) Branch hours. Start 1 day before procedure. ciprofloxac 2020-0 Yes [id number] 500mg Take 1 Univers in HCl 500 6-25 tablet by ity of mg tablet 00:00: mouth [place] 00 every 12 Medical (twelve) Branch hours. Start 1 day before procedure. ciprofloxac 2020-0 Yes [id number] 500mg Take 1 Univers in HCl 500 6-25 tablet by ity of mg tablet 00:00: mouth [place] 00 every 12 Medical (twelve) Branch hours. Start 1 day before procedure. ciprofloxac 2020-0 Yes [id number] 500mg Take 1 Univers in HCl 500 6-25 tablet by ity of mg tablet 00:00: mouth [place] 00 every 12 Medical (twelve) Branch hours. Start 1 day before procedure. ciprofloxac 2020-0 Yes [id number] 500mg Take 1 Univers in HCl 500 6-25 tablet by ity of mg tablet 00:00: mouth [place] 00 every 12 Medical (twelve) Branch hours. Start 1 day before procedure. ciprofloxac 2020-0 Yes [id number] 500mg Take 1 Univers in HCl 500 6-25 tablet by ity of mg tablet 00:00: mouth [place] 00 every 12 Medical (twelve) Branch hours. Start 1 day before procedure. ciprofloxac 2020-0 Yes [id number] 500mg Take 1 Univers in HCl 500 6-25 tablet by ity of mg tablet 00:00: mouth [place] 00 every 12 Medical (twelve) Branch hours. Start 1 day before procedure. ciprofloxac 2020-0 Yes [id number] 500mg Take 1 Univers in HCl 500 6-25 tablet by ity of mg tablet 00:00: mouth [place] 00 every 12 Medical (twelve) Branch hours. Start 1 day before procedure. ciprofloxac 2020-0 Yes [id number] 500mg Take 1 Univers in HCl 500 6-25 tablet by ity of mg tablet 00:00: mouth [place] 00 every 12 Medical (twelve) Branch hours. Start 1 day before procedure. ciprofloxac 2020-0 Yes [id number] 500mg Take 1 Univers in HCl 500 6-25 tablet by ity of mg tablet 00:00: mouth [place] 00 every 12 Medical (twelve) Branch hours. Start 1 day before procedure. ciprofloxac 2020-0 Yes [id number] 500mg Take 1 Univers in HCl 500 6-25 tablet by ity of mg tablet 00:00: mouth [place] 00 every 12 Medical (twelve) Branch hours. Start 1 day before procedure. ciprofloxac 2020-0 Yes [id number] 500mg Take 1 Univers in HCl 500 6-25 tablet by ity of mg tablet 00:00: mouth [place] 00 every 12 Medical (twelve) Branch hours. Start 1 day before procedure. ciprofloxac 2020-0 Yes [id number] 500mg Take 1 Univers in HCl 500 6-25 tablet by ity of mg tablet 00:00: mouth [place] 00 every 12 Medical (twelve) Branch hours. Start 1 day before procedure. ciprofloxac 2020-0 Yes [id number] 500mg Take 1 Univers in HCl 500 6-25 tablet by ity of mg tablet 00:00: mouth [place] 00 every 12 Medical (twelve) Branch hours. Start 1 day before procedure. ciprofloxac 2020-0 Yes [id number] 500mg Take 1 Univers in HCl 500 6-25 tablet by ity of mg tablet 00:00: mouth [place] 00 every 12 Medical (twelve) Branch hours. Start 1 day before procedure. ciprofloxac 2020-0 Yes [id number] 500mg Take 1 Univers in HCl 500 6-25 tablet by ity of mg tablet 00:00: mouth [place] 00 every 12 Medical (twelve) Branch hours. Start 1 day before procedure. ciprofloxac 2020-0 Yes [id number] 500mg Take 1 Univers in HCl 500 6-25 tablet by ity of mg tablet 00:00: mouth [place] 00 every 12 Medical (twelve) Branch hours. Start 1 day before procedure. ciprofloxac 2020-0 Yes [id number] 500mg Take 1 Univers in HCl 500 6-25 tablet by ity of mg tablet 00:00: mouth [place] 00 every 12 Medical (twelve) Branch hours. Start 1 day before procedure. ciprofloxac 2020-0 Yes [id number] 500mg Take 1 Univers in HCl 500 6-25 tablet by ity of mg tablet 00:00: mouth [place] 00 every 12 Medical (twelve) Branch hours. Start 1 day before procedure. ciprofloxac 2020-0 2020- No [id number] 500mg Take 1 Univers in HCl 500 6-25 07-30 tablet by ity of mg tablet 00:00: 00:00 mouth [place] 00 :00 every 12 Medical (twelve) Branch hours. Start 1 day before procedure. ciprofloxac 2020-0 2020- No [id number] 500mg Take 1 Univers in HCl 500 6-25 07-30 tablet by ity of mg tablet 00:00: 00:00 mouth [place] 00 :00 every 12 Medical (twelve) Branch hours. Start 1 day before procedure. ciprofloxac 2020-0 2020- No [id number] 500mg Take 1 Univers in HCl 500 6-25 07-30 tablet by ity of mg tablet 00:00: 00:00 mouth [place] 00 :00 every 12 Medical (twelve) Branch hours. Start 1 day before procedure. ciprofloxac 2020-0 2020- No [id number] 500mg Take 1 Univers in HCl 500 6-25 07-30 tablet by ity of mg tablet 00:00: 00:00 mouth [place] 00 :00 every 12 Medical (twelve) Branch hours. Start 1 day before procedure. ciprofloxac 2020-0 2020- No [id number] 500mg Take 1 Univers in HCl 500 6-25 07-03 tablet by ity of mg tablet 00:00: 04:59 mouth [place] 00 :00 every 12 Medical (twelve) Branch hours for 7 days. ciprofloxac 2020-0 2020- No [id number] 500mg Take 1 Univers in HCl 500 6-25 07-03 tablet by ity of mg tablet 00:00: 04:59 mouth [place] 00 :00 every 12 Medical (twelve) Branch hours for 7 days. enalapril 2020-0 Yes 10mg Take 10 mg Un pier[place] 10 mg 6-22 by mouth ity of tablet 20:31: daily. [address] amLODIPine 2020-0 Yes 5mg Take 5 mg Un pierre 5 mg tablet 6-22 by mouth ity of 20:31: daily. [address] enalapril 2020-0 Yes 10mg Take 10 mg Un pier[place] 10 mg 6-22 by mouth ity of tablet 20:31: daily. [address] amLODIPine 2020-0 Yes 5mg Take 5 mg Un pierre 5 mg tablet 6-22 by mouth ity of 20:31: daily. [address] enalapril 2020-0 Yes 10mg Take 10 mg Un pierre 10 mg 6-22 by mouth ity of tablet 20:31: daily. [address] amLODIPine 2020-0 Yes 5mg Take 5 mg Un pierre 5 mg tablet 6-22 by mouth ity of 20:31: daily. [address] enalapril 2020-0 Yes 10mg Take 10 mg Un pier[place] 10 mg 6-22 by mouth ity of tablet 20:31: daily. [address] amLODIPine 2020-0 Yes 5mg Take 5 mg Un pierre 5 mg tablet 6-22 by mouth ity of 20:31: daily. [address] enalapril 2020-0 Yes 10mg Take 10 mg Un pier[place] 10 mg 6-22 by mouth ity of tablet 20:31: daily. [address] amLODIPine 2020-0 Yes 5mg Take 5 mg Un pierre 5 mg tablet 6-22 by mouth ity of 20:31: daily. [address] enalapril 2020-0 Yes 10mg Take 10 mg Un pier[place] 10 mg 6-22 by mouth ity of tablet 20:31: daily. [address] amLODIPine 2020-0 Yes 5mg Take 5 mg Un pierre 5 mg tablet 6-22 by mouth ity of 20:31: daily. [address] enalapril 2020-0 Yes 10mg Take 10 mg Un pier[place] 10 mg 6-22 by mouth ity of tablet 20:31: daily. [address] amLODIPine 2020-0 Yes 5mg Take 5 mg Un pierre 5 mg tablet 6-22 by mouth ity of 20:31: daily. [address] enalapril 2020-0 Yes 10mg Take 10 mg Un pier[place] 10 mg 6-22 by mouth ity of tablet 20:31: daily. [address] amLODIPine 2020-0 Yes 5mg Take 5 mg Un pierre 5 mg tablet 6-22 by mouth ity of 20:31: daily. [address] enalapril 2020-0 Yes 10mg Take 10 mg Un pier[place] 10 mg 6-22 by mouth ity of tablet 20:31: daily. [address] amLODIPine 2020-0 Yes 5mg Take 5 mg Un pierre 5 mg tablet 6-22 by mouth ity of 20:31: daily. [address] enalapril 2020-0 Yes 10mg Take 10 mg Un pier[place] 10 mg 6-22 by mouth ity of tablet 20:31: daily. [address] amLODIPine 2020-0 Yes 5mg Take 5 mg Un pier[place] 5 mg tablet 6-22 by mouth ity of 20:31: daily. [address] enalapril 2020-0 Yes 10mg Take 10 mg Un pierer 10 mg 6-22 by mouth ity of tablet 20:31: daily. [address] amLODIPine 2020-0 Yes 5mg Take 5 mg Un pier[place] 5 mg tablet 6-22 by mouth ity of 20:31: daily. [address] enalapril 2020-0 Yes 10mg Take 10 mg Un pier[place] 10 mg 6-22 by mouth ity of tablet 20:31: daily. [address] amLODIPine 2020-0 Yes 5mg Take 5 mg Un pierre 5 mg tablet 6-22 by mouth ity of 20:31: daily. [address] enalapril 2020-0 Yes 10mg Take 10 mg Un pier[place] 10 mg 6-22 by mouth ity of tablet 20:31: daily. [address] amLODIPine 2020-0 Yes 5mg Take 5 mg Un pierre 5 mg tablet 6-22 by mouth ity of 20:31: daily. [address] enalapril 2020-0 Yes 10mg Take 10 mg Un pier[place] 10 mg 6-22 by mouth ity of tablet 20:31: daily. [address] amLODIPine 2020-0 Yes 5mg Take 5 mg Un pierre 5 mg tablet 6-22 by mouth ity of 20:31: daily. [address] enalapril 2020-0 Yes 10mg Take 10 mg Un pierre 10 mg 6-22 by mouth ity of tablet 20:31: daily. [address] amLODIPine 2020-0 Yes 5mg Take 5 mg Un pierre 5 mg tablet 6-22 by mouth ity of 20:31: daily. [address] enalapril 2020-0 Yes 10mg Take 10 mg Un pierre 10 mg 6-22 by mouth ity of tablet 20:31: daily. [address] amLODIPine 2020-0 Yes 5mg Take 5 mg Un pierre 5 mg tablet 6-22 by mouth ity of 20:31: daily. [address] enalapril 2020-0 Yes 10mg Take 10 mg Un pier[place] 10 mg 6-22 by mouth ity of tablet 20:31: daily. [address] amLODIPine 2020-0 Yes 5mg Take 5 mg Un pierre 5 mg tablet 6-22 by mouth ity of 20:31: daily. [address] enalapril 2020-0 Yes 10mg Take 10 mg Un pierre 10 mg 6-22 by mouth ity of tablet 20:31: daily. [address] amLODIPine 2020-0 Yes 5mg Take 5 mg Un pierre 5 mg tablet 6-22 by mouth ity of 20:31: daily. [address] enalapril 2020-0 Yes 10mg Take 10 mg Un pierre 10 mg 6-22 by mouth ity of tablet 20:31: daily. [address] amLODIPine 2020-0 Yes 5mg Take 5 mg Un pierre 5 mg tablet 6-22 by mouth ity of 20:31: daily. [address] enalapril 2020-0 Yes 10mg Take 10 mg Un pierre 10 mg 6-22 by mouth ity of tablet 20:31: daily. [address] enalapril 2020-0 Yes 10mg Take 10 mg Un pierre 10 mg 6-22 by mouth ity of tablet 20:31: daily. [address] amLODIPine 2020-0 Yes 5mg Take 5 mg Un pierre 5 mg tablet 6-22 by mouth ity of 20:31: daily. [address] enalapril 2020-0 Yes 10mg Take 10 mg Un pierre 10 mg 6-22 by mouth ity of tablet 20:31: daily. [address] amLODIPine 2020-0 Yes 5mg Take 5 mg Un pierre 5 mg tablet 6-22 by mouth ity of 20:31: daily. [address] amLODIPine 2020-0 Yes 5mg Take 5 mg Un pierre 5 mg tablet 6-22 by mouth ity of 20:31: daily. [address] enalapril 2020-0 Yes 10mg Take 10 mg Un pierre 10 mg 6-22 by mouth ity of tablet 20:31: daily. [address] amLODIPine 2020-0 Yes 5mg Take 5 mg Un pierre 5 mg tablet 6-22 by mouth ity of 20:31: daily. [address] enalapril 2020-0 Yes 10mg Take 10 mg Un pier[place] 10 mg 6-22 by mouth ity of tablet 20:31: daily. [address] amLODIPine 2020-0 Yes 5mg Take 5 mg Un pierre 5 mg tablet 6-22 by mouth ity of 20:31: daily. [address] enalapril 2020-0 Yes 10mg Take 10 mg Un pier[place] 10 mg 6-22 by mouth ity of tablet 20:31: daily. [address] amLODIPine 2020-0 Yes 5mg Take 5 mg Un pierre 5 mg tablet 6-22 by mouth ity of 20:31: daily. [address] enalapril 2020-0 Yes 10mg Take 10 mg Un pier[place] 10 mg 6-22 by mouth ity of tablet 20:31: daily. [address] amLODIPine 2020-0 Yes 5mg Take 5 mg Un pier[place] 5 mg tablet 6-22 by mouth ity of 20:31: daily. [address] enalapril 2020-0 Yes 10mg Take 10 mg Un pier[place] 10 mg 6-22 by mouth ity of tablet 20:31: daily. [address] amLODIPine 2020-0 Yes 5mg Take 5 mg Un pier[place] 5 mg tablet 6-22 by mouth ity of 20:31: daily. [address] enalapril 2020-0 Yes 10mg Take 10 mg Un pier[place] 10 mg 6-22 by mouth ity of tablet 20:31: daily. [address] amLODIPine 2020-0 Yes 5mg Take 5 mg Un pier[place] 5 mg tablet 6-22 by mouth ity of 20:31: daily. [address] enalapril 2020-0 Yes 10mg Take 10 mg Un pier[place] 10 mg 6-22 by mouth ity of tablet 20:31: daily. [address] amLODIPine 2020-0 Yes 5mg Take 5 mg Un pier[place] 5 mg tablet 6-22 by mouth ity of 20:31: daily. [address] enalapril 2020-0 Yes 10mg Take 10 mg Un pier[place] 10 mg 6-22 by mouth ity of tablet 20:31: daily. [address] amLODIPine 2020-0 Yes 5mg Take 5 mg Un pierre 5 mg tablet 6-22 by mouth ity of 20:31: daily. [address] enalapril 2020-0 Yes 10mg Take 10 mg Un pierre 10 mg 6-22 by mouth ity of tablet 20:31: daily. [address] [place] [address] amLODIPine 2020-0 Yes 5mg Take 5 mg Un pierre 5 mg tablet 6-22 by mouth ity of 20:31: daily. [address] enalapril 2020-0 Yes 10mg Take 10 mg Un [place] 10 mg 6-22 by mouth ity of tablet 20:31: daily. [address] amLODIPine 2020-0 Yes 5mg Take 5 mg Un pier[place] 5 mg tablet 6-22 by mouth ity of 20:31: daily. [address] enalapril 2020-0 Yes 10mg Take 10 mg Un [place] 10 mg 6-22 by mouth ity of tablet 20:31: daily. [address] amLODIPine 2020-0 Yes 5mg Take 5 mg Un pier[place] 5 mg tablet 6-22 by mouth ity of 20:31: daily. [address] enalapril 2020-0 Yes 10mg Take 10 mg Un pier[place] 10 mg 6-22 by mouth ity of tablet 20:31: daily. [address] amLODIPine 2020-0 Yes 5mg Take 5 mg Un pier[place] 5 mg tablet 6-22 by mouth ity of 20:31: daily. [address] enalapril 2020-0 Yes 10mg Take 10 mg Un pier[place] 10 mg 6-22 by mouth ity of tablet 20:31: daily. [address] enalapril 2020-0 Yes 10mg Take 10 mg Un pier[place] 10 mg 6-22 by mouth ity of tablet 20:31: daily. [address] amLODIPine 2020-0 Yes 5mg Take 5 mg Un pier[place] 5 mg tablet 6-22 by mouth ity of 20:31: daily. [address] amLODIPine 2020-0 Yes 5mg Take 5 mg Un pier[place] 5 mg tablet 6-22 by mouth ity of 20:31: daily. [address] enalapril 2020-0 Yes 10mg Take 10 mg Un pier[place] 10 mg 6-22 by mouth ity of tablet 20:31: daily. [address] amLODIPine 2020-0 Yes 5mg Take 5 mg Un pier[place] 5 mg tablet 6-22 by mouth ity of 20:31: daily. [address] enalapril 2020-0 Yes 10mg Take 10 mg Un pier[place] 10 mg 6-22 by mouth ity of tablet 20:31: daily. [address] amLODIPine 2020-0 Yes 5mg Take 5 mg Un pier[place] 5 mg tablet 6-22 by mouth ity of 20:31: daily. [address] enalapril 2020-0 Yes 10mg Take 10 mg Un pier[place] 10 mg 6-22 by mouth ity of tablet 20:31: daily. [address] amLODIPine 2020-0 Yes 5mg Take 5 mg Un pier[place] 5 mg tablet 6-22 by mouth ity of 20:31: daily. [address] ciprofloxac 2019-0 2020- No [id number] 500mg Take 1 Univers in HCl 500 6-22 06-22 tablet by ity of mg tablet 00:00: 00:00 [facility] 00 :00 every 12 [facility] hours for 3 days. Start 1 day before procedure. ciprofloxac 2020-0 2020- No [id number] 500mg Take 1 Univers in HCl 500 6-22 06-22 tablet by ity of mg tablet 00:00: 00:00 [facility] 00 :00 every 12 [facility] hours for 3 days. Start 1 day before procedure. ciprofloxac 2020-0 2020- No [id number] 500mg Take 1 Univers in HCl 500 6-22 06-22 tablet by ity of mg tablet 00:00: 00:00 [facility] 00 :00 every 12 [facility] hours for 3 days. Start 1 day before procedure. ciprofloxac 2019-0 2020- No [id number] 500mg Take 1 Univers in HCl 500 6-22 06-22 tablet by ity of mg tablet 00:00: 00:00 [facility] 00 :00 every 12 [facility] hours for 3 days. Start 1 day before procedure. No known No Univers medications [facility] Immunizations Ordered Immunization Filled Immunization Date Status Commen ts Source Name Name Genomic Expression SARS-CoV-2 2020-05-31 Completed Vaccination 00:00:00 alexa 2020-03-07 Completed MD Valdivia 00:00:00 alexa 2020-03-06 Completed MD Valdivia 00:00:00 alexa 2020-03-05 Completed MD Valdivia 00:00:00 alexa 2020-03-04 Completed MD Valdivia 00:00:00 alexa 2020-03-03 Completed MD Valdivia 00:00:00 Vital Signs Vital Name Observation Time Observation Value Comments Source WEIGHT 2020-02-13 11:54:00 65.8 kg Systolic blood 2019-10-11 18:23:00 153 mm[Hg] [facility] Diastolic blood 2019-10-11 18:23:00 69 mm[Hg] Unive rs[facility] Heart rate 2019-10-11 18:23:00 64 /min [facility] Body temperature 2019-10-11 18:23:00 36.67 Lyn [facility] Respiratory rate 2019-10-11 18:23:00 14 /min [facility] Body weight 2019-10-11 18:23:00 65.091 kg [facility] BMI 2019-10-11 18:23:00 23.16 kg/m2 [facility] Oxygen saturation in 2019-10-11 18:23:00 96 /min University of Arterial blood by [facility] Pulse oximetry Branch Systolic blood 2019-09-14 15:02:00 150 mm[Hg] Univer [facility] Diastolic blood 2019-09-14 15:02:00 71 mm[Hg] Unive rsity [facility] Heart rate 2019-09-14 15:02:00 68 /min [facility] Body temperature 2019-09-14 15:02:00 36.78 Lyn [facility] Respiratory rate 2019-09-14 15:02:00 15 /min [facility] Body weight 2019-09-14 15:02:00 68.493 kg [facility] BMI 2019-09-14 15:02:00 24.37 kg/m2 [facility] Oxygen saturation in 2019-09-14 15:02:00 98 /min University of Arterial blood by [facility] Pulse oximetry Branch Systolic blood 2019-09-03 20:27:00 156 mm[Hg] Univer [facility] Diastolic blood 2019-09-03 20:27:00 76 mm[Hg] Unive rs[facility] Heart rate 2019-09-03 20:27:00 80 /min [facility] Body temperature 2019-09-03 20:27:00 36.44 Lyn [facility] Respiratory rate 2019-09-03 20:27:00 14 /min [facility] Body height 2019-09-03 20:27:00 167.6 cm [facility] Body weight 2019-09-03 20:27:00 68.493 kg [facility] BMI 2019-09-03 20:27:00 24.37 kg/m2 [facility] Oxygen saturation in 2019-09-03 20:27:00 99 /min [facility] Arterial blood by [facility] Pulse oximetry Branch Systolic blood 2020-10-27 20:30:58 146 mm[Hg] pressure Diastolic blood 2020-10-27 20:30:58 71 mm[Hg] MD Anaya derson pressure Heart rate 2020-10-27 20:30:58 53 /min MD Dave gant Body temperature 2020-10-27 20:30:58 36.72 Lyn MD Jailyn bond Respiratory rate 2020-10-27 20:30:58 16 /min MD Jailyn valenzuelaon Body weight 2020-10-27 20:30:58 62.4 kg MD Acosta son BMI 2020-10-27 20:30:58 24.07 kg/m2 MD Dave gant Oxygen saturation in 2020-10-27 20:30:58 97 /min MD Valdivia Arterial blood by Pulse oximetry Body height 2020-08-22 04:51:00 161 cm MD Dave gant Procedures Procedure Date / Time Performing Clinician Source Performed EKG, 12-LEAD (PORTABLE) 2020-08-31 00:00:[address] HEAD WO CONTRAST 2020-08-30 22:35:28 Juan Pablo Hanson MD And erson INFLUENZA A/B + COVID-19 2020-08-30 21:58:00 Juan Pablo Hanson ASYMPTOMATIC-L POC TROPONIN I 2020-08-30 21:55:00 Juan Pablo Hanson MD Anderso n POC GLUCOSE SCREEN 2020-08-30 21:40:00 Juan Pablo Hanson MD Bernard rson COMPLETE BLOOD COUNT W/ 2020-08-30 21:36:00 Juan Pablo Hanson MD DIFFERENTIAL COMPREHENSIVE METABOLIC 2020-08-30 21:36:00 Hita, Juan Pablo Fabian MD Skip PANEL MAGNESIUM LEVEL 2020-08-30 21:36:00 Hita, Juan Pablo santacruz PHOSPHORUS LEVEL 2020-08-30 21:36:00 Hita, Juan Pablo Evans on PROTHROMBIN TIME 2020-08-30 21:36:00 Hita, Juan Pablo Fabian MD Nathan on APTT 2020-08-30 21:36:00 Hita, Juan Pablo santacruz TYPE AND SCREEN 2020-08-30 21:36:00 Hita, Juan Pablo santacruz AMYLASE LEVEL 2020-08-30 21:36:00 Hita, Juan Pablo santacruz LIPASE LEVEL 2020-08-30 21:36:00 Hita, Juan Pablo santacruz THYROID STIMULATING 2020-08-30 21:36:00 Hita, Juan Pablo Fabian MD And erson HORMONE URIC ACID 2020-08-30 21:36:00 Hita, Juan Pablo santacruz FREE THYROXINE 2020-08-30 21:36:00 Hita, Juan Pablo Fabian MD Andzoraidao n ABORH 2020-08-30 21:36:00 Hita, Juan Pablo Evanso neeta ANTIBODY SCREEN 2020-08-30 21:36:00 Hita, Juan Pablo santacruz Results CBC 2020-08-30 21:36:00 Hita, Juan Pablo santacruz MANUAL DIFFERENTIAL 2020-08-30 21:36:00 Hita, Juan Pablo Fabian MD And erson GLUCOSE LEVEL 2020-08-30 21:36:00 Hita, Juan Pablo Evanso n BLOOD UREA NITROGEN 2020-08-30 21:36:00 Hita, Juan Pablo Fabian MD And erson ELECTROLYTE PANEL 2020-08-30 21:36:00 Hita, Juan Pablo Fabian MD Dave son SERUM CREATININE 2020-08-30 21:36:00 Hita, Juan Pablo Fabian MD Nathan on .GLOMERULAR FILTRATION 2020-08-30 21:36:00 Hita, Juan Pablo Valdivia RATE CALCIUM LEVEL TOTAL 2020-08-30 21:36:00 Hita, Juan Pablo Fabian MD And erson ALBUMIN LEVEL 2020-08-30 21:36:00 Juan Pablo Hanson MD ALKALINE PHOSPHATASE 2020-08-30 21:36:00 Juan Pablo Hanson MD ALANINE AMINOTRANSFERASE 2020-08-30 21:36:00 Juan Pablo Hanson ASPARTATE AMINOTRANSFERASE 2020-08-30 21:36:00 Juan Pablo Hanson MD TOTAL PROTEIN 2020-08-30 21:36:00 Juan Pablo Hanson MD FRACTIONATED BILIRUBIN 2020-08-30 21:36:00 Juan Pablo Hanson MD CLOT EXPIRATION DATE 2020-08-30 21:36:00 Juan Pablo Hanson MDson TMP INTERPRETATION 2020-08-30 21:36:00 Juan Pablo Hanson MD rson ANTIBODY SCREEN NEGATIVE URINE CULTURE 2020-08-27 [...] .GLOMERULAR FILTRATION 2020-08-24 07:57:00 Luigi Barreto MD RATE CALCIUM LEVEL TOTAL 2020-08-24 07:57:00 Luigi [...] UREA NITROGEN 2020-08-23 08:58:00 Luigi Barreto MD Dave son ELECTROLYTE PANEL 2020-08-23 08:58:00 Luigi Barreto MD SERUM CREATININE 2020-08-23 08:58:00 Luigi Barreto MD .GLOMERULAR FILTRATION 2020-08-23 08:58:00 Luigi Barreto MDson RATE CALCIUM LEVEL TOTAL 2020-08-23 08:58:00 Luigi Barreto MD Dave son XR ABDOMEN 1 VW PORTABLE 2020-08-22 19:59:14 Luigi Barreto MD ECHOCARDIOGRAM 2D COMPLETE 2020-08-22 16:39:42 Luigi Barreto W CONTRAST COMPREHENSIVE METABOLIC 2020-08-22 10:54:00 Juan Pablo Hanson MD PANEL COMPLETE BLOOD COUNT W/ 2020-08-22 10:54:00 HitJuan Pablo yu MD DIFFERENTIAL GLUCOSE LEVEL 2020-08-22 10:54:00 Juan Pablo Hanson MD BLOOD UREA NITROGEN 2020-08-22 10:54:00 Juan Pablo Hanson MD And erson ELECTROLYTE PANEL 2020-08-22 10:54:00 Juan Pablo Hanson MD Dave son SERUM CREATININE 2020-08-22 10:54:00 Juan Pablo Hanson MD Nathan on .GLOMERULAR FILTRATION 2020-08-22 10:54:00 Juan Pablo Hanson MD RATE CALCIUM LEVEL TOTAL 2020-08-22 10:54:00 Juan Pablo Hanson MD And erson ALBUMIN LEVEL 2020-08-22 10:54:00 Juan Pablo Hanson MD ALKALINE PHOSPHATASE 2020-08-22 10:54:00 Hita, Juan Pablo [...] MD Bernard rson PHOSPHORUS LEVEL 2020-08-21 17:27:00 Benjamin, Brice Shrestha MD And erson PROTHROMBIN TIME 2020-08-21 17:27:00 Brice Alexander MD And erson APTT 2020-08-21 17:27:00 Brice Alexander MD Bernard rson D DIMER 2020-08-21 17:27:00 Brice Alexander MD Bernard rson FIBRINOGEN ACTIVITY 2020-08-21 17:27:00 Brice lAexander MD LACTATE DEHYDROGENASE 2020-08-21 17:27:00 Brice Alexander C REACTIVE PROTEIN 2020-08-21 17:27:00 Brice Alexander MD nderson CARDIAC PANEL 2020-08-21 17:27:00 Brice Alexander MD Bernard rson Results CBC 2020-08-21 17:27:00 Brice Alexander MD Bernard rson MANUAL DIFFERENTIAL 2020-08-21 17:27:00 Brice Alxeander MD GLUCOSE LEVEL 2020-08-21 17:27:00 Brice Alexander MD Bernard rson BLOOD UREA NITROGEN 2020-08-21 17:27:00 Brice Alexander MD ELECTROLYTE PANEL 2020-08-21 17:27:00 Brice Alexander MDson SERUM CREATININE 2020-08-21 17:27:00 Brice Alexander MD And erson .GLOMERULAR FILTRATION 2020-08-21 17:27:00 [...] SCREEN 2020-08-21 17:27:00 Brice Alexander MD Bernard rsmarycarmen CLOT EXPIRATION DATE 2020-08-21 17:27:00 Brice Alexander MD TMP INTERPRETATION 2020-08-21 17:27:00 Brice Alexander MD nderson ANTIBODY SCREEN NEGATIVE EKG, 12-LEAD (PORTABLE) 2020-08-21 00:00:00 Brice Alexander MD IR PLACEMENT OF 2020-07-29 19:48:00 Kirstie Joyner MD INTERSTITIAL DEVICE FOR PROSTATE XRT IR TRANSPERINEAL PLACEMENT 2020-07-29 19:48:00 Kirstie Joyner BIODEGRADABLE MATERIAL PATHOLOGY BIOPSY 2020-07-28 17:29:00 MD Adeola Trevino n INTERPRETATION Mian DIAGNOSTIC FLEXIBLE 2020-07-28 17:04:00 Milad Rachel MD Bernard rsmarycarmen COLONOSCOPY PROXIMAL TO Mian SPLENIC FLEXURE ENDOSCOPY NOTE RESULTS 2020-07-28 16:24:14 MD Jailyn Trevino PROSTATE SPECIFIC ANTIGEN 2020-07-28 15:51:00 Kirstie Joyner [...] ABORH 2020-07-28 15:51:00 Kateryna Gu MD Bernard rson MANUAL DIFFERENTIAL 2020-07-28 15:51:00 Kateryna Gu MD ANTIBODY SCREEN 2020-07-28 15:51:00 Kateryna Gu MD Bernard rson ANION GAP 2020-07-28 15:51:00 Kateryna Gu MD [...] PHOSPHATASE 2020-07-15 16:27:00 Sanjuanita Lerma MD Bernard rson ASPARTATE AMINOTRANSFERASE 2020-07-15 16:27:00 Sanjuanita Lerma BLOOD UREA NITROGEN 2020-07-15 16:27:00 Sanjuanita Lrema MD son CALCIUM LEVEL TOTAL 2020-07-15 16:27:00 Sanjuanita Lerma MD Dave son COMPLETE BLOOD COUNT W/ 2020-07-15 16:27:00 Sanjuanita Lerma MD DIFFERENTIAL SERUM CREATININE 2020-07-15 16:27:00 Sanjuanita Lerma MD ELECTROLYTE PANEL 2020-07-15 16:27:00 Sanjuanita Lerma MDo n FRACTIONATED BILIRUBIN 2020-07-15 16:27:00 Sanjuanita Lerma MD GLUCOSE, RANDOM 2020-07-15 16:27:00 Sanjuanita Lerma MD [...] Lerma MD MANUAL DIFFERENTIAL 2020-07-15 16:27:00 Sanjuanita Lerma MD Dave son ALANINE AMINOTRANSFERASE 2020-05-16 12:34:00 Reginaldo Padilla MD ALBUMIN LEVEL 2020-05-16 12:34:00 Reginaldo Padilla MD ALKALINE PHOSPHATASE 2020-05-16 12:34:00 Reginaldo Padilla MD Bernard rson ASPARTATE AMINOTRANSFERASE 2020-05-16 12:34:00 Reginaldo Padilla BLOOD UREA NITROGEN 2020-05-16 12:34:00 Reginaldo Padilla MD Dave [facility] CALCIUM LEVEL TOTAL 2020-05-16 12:34:00 Reginaldo Padilla MD Dave [facility] CARCINOEMBRYONIC ANTIGEN 2020-05-16 12:34:00 Reginaldo Padilla MD COMPLETE BLOOD COUNT W/ 2020-05-16 12:34:00 Reginaldo Padilla MD nderson DIFFERENTIAL SERUM CREATININE 2020-05-16 12:34:00 Reginaldo Padilla MD ELECTROLYTE PANEL 2020-05-16 12:34:00 Reginaldo Padilla MDo n FRACTIONATED BILIRUBIN 2020-05-16 12:34:00 Reginaldo Padilla MD derson GLUCOSE, RANDOM 2020-05-16 12:34:00 Reginaldo Padilla MD LACTATE DEHYDROGENASE 2020-05-16 12:34:00 Reginaldo Padilla ersmarycarmen MAGNESIUM LEVEL 2020-05-16 12:34:00 Reginaldo Padilla MD PHOSPHORUS LEVEL 2020-05-16 12:34:00 Reginaldo Padilla MD PROSTATE SPECIFIC ANTIGEN 2020-05-16 12:34:00 Reginaldo Padilla MD TOTAL PROTEIN 2020-05-16 12:34:00 Reginaldo Padilla MD SERUM CREATININE 2020-05-16 12:34:00 Reginaldo Padilla MD .GLOMERULAR FILTRATION 2020-05-16 12:34:00 Reginaldo Padilla MD derson RATE Results CBC 2020-05-16 12:34:00 Reginaldo Padilla MD MANUAL DIFFERENTIAL 2020-05-16 12:34:00 Reginaldo Padilla MD Dave [facility] TESTOSTERONE LEVEL 2020-05-16 12:31:00 Reginaldo Padilla MD on VITAMIN D 25 HYDROXY LEVEL 2020-05-16 12:31:00 Reginaldo Padilla EXTERNAL PROVIDER RECORDS 2019-10-04 05:01:00 Doctor Unassigned, [facility] EXTERNAL PROVIDER RECORDS 2019-10-03 05:01:00 Doctor Unassigned, [facility] EXTERNAL PROVIDER RECORDS 2019-09-28 05:01:00 Doctor Unassigned, [facility] SURGICAL PATHOLOGY EXAM 2019-09-14 15:52:00 Pako Lopez [facility] PROFESSIONAL ENGINEER CLINIC ULTRASOUND 2019-09-14 05:01:00 Doctor Valeriy [facility] PROSTATIC SPECIFIC ANTIGEN 2019-09-03 21:05:00 Pako Lopez [facility] URINE CULTURE 2019-09-03 21:05:00 Pako Lopez leanna Polvadera o f [facility] DISCLOSURE AND CONSENT, Doctor Valeriy [facility] MEDICAL AND SURGICAL [facility] PROCEDURES Plan of Care Planned Activity Planned Date Details Comments Source Future Scheduled Test 2020-07-26 00:00:00 COVID-19 Vaccination (2 MD Valdivia - Booster for Kendra series) [code = COVID-19 Vaccination (2 - Booster for Kendra series)] Encounters Start End Encounter Admission Attending Care Care Encounter Source Date/Time Date/Time Type Type Clinicians Facility Department ID 2020-10-31 2020-10-31 Outpatient GILMA MORENO MDA MDA [id number] 11:32:23 11:32:23 AUBREY zuñiga n 2020-10-27 2020-10-27 Outpatient GILMA FRIED MDA MDA [id number] 15:24:16 16:01:02 JORJE zhengo n 2020-10-17 2020-10-17 Outpatient GILMA ELMORE MDA MDA [id number] 12:53:40 23:59:00 ERWIN Nathan o n 2020-10-16 2020-10-16 Outpatient GILMA ELMORE MDA MDA [id number] 12:10:00 23:59:00 ERWIN Nathan o n 2020-10-15 2020-10-15 Outpatient [facility], MDA MDA [id number] MD 12:30:00 23:59:00 ERWIN Nathan o n 2020-10-14 2020-10-14 Outpatient [facility], MDA MDA [id number] MD 11:21:52 23:59:00 ERWIN Nathan o n 2020-10-13 2020-10-13 Outpatient [facility], MDA MDA [id number] MD 12:26:36 23:59:00 ERWIN Nathan o n 2020-10-10 2020-10-10 Outpatient [facility], MDA MDA [id number] MD 11:40:24 23:59:00 ERWIN Nathan o n 2020-10-09 2020-10-09 Outpatient [facility], MDA MDA [id number] MD 11:40:00 23:59:00 ERWIN Nathan o n 2020-10-08 2020-10-08 Outpatient [facility], MDA MDA [id number] MD 12:05:00 23:59:00 ERWIN Nathan o n 2020-10-08 2020-10-08 Outpatient [facility], MDA MDA [id number] MD 10:15:00 12:04:00 BOONE-BRANDEN Bernard rso n 2020 2020 Outpatient [facility], MDA MDA [id number] MD 11:55:00 23:59:00 ERWIN Nathan o n 2020 2020 Outpatient [facility], MDA MDA [id number] MD 09:55:27 11:49:27 HAILY And erso n 2020-10-06 2020-10-06 Outpatient [facility], MDA MDA [id number] MD 11:30:00 23:59:00 ERWIN Nathan o n 2020-10-03 2020-10-03 Outpatient [facility], MDA MDA [id number] MD 10:08:21 23:59:00 ERWIN Nathan o n 2020-10-01 2020-10-01 Outpatient [facility], MDA MDA [id number] MD 10:14:10 23:59:00 BOONE-BRANDEN Bernard rso n 2020-09-30 2020-09-30 Outpatient [facility], MDA MDA [id number] MD 11:27:01 23:59:00 ERWIN Nathan o n 2020-09-29 2020-09-29 Outpatient [facility], MDA MDA [id number] MD 11:30:00 23:59:00 ERWIN Nathan o n 2020-09-26 2020-09-26 Outpatient [facility], MDA MDA [id number] MD 12:00:00 23:59:00 ERWIN Nathan o n 2020-09-25 2020-09-25 Outpatient [facility], MDA MDA [id number] MD 11:50:00 23:59:00 ERWIN Nathan o n 2020-09-24 2020-09-24 Outpatient [facility], MDA MDA [id number] MD 11:07:31 23:59:00 ERWIN Nathan o n 2020-09-24 2020-09-24 Outpatient [facility], MDA MDA [id number] MD 10:15:00 11:06:00 BOONE-BRANDEN Bernard rso n 2020-09-24 2020-09-24 Outpatient [facility], MDA MDA [id number] MD 10:00:00 10:14:00 ERWIN Nathan o n 2020-09-24 2020-09-24 Outpatient [facility], MDA MDA [id number] MD 08:56:38 09:14:00 ERWIN Nathan o n 2020-09-23 2020-09-23 Outpatient [facility], MDA MDA [id number] MD 12:01:45 23:59:00 ERWIN Nathan o n 2020-09-22 2020-09-22 Outpatient [facility], MDA MDA [id number] MD 13:23:44 23:59:00 ERWIN Nathan o n 2020-09-22 2020-09-22 Outpatient [facility], MDA MDA [id number] MD 12:16:14 13:22:00 ERWIN Nathan o n 2020-09-19 2020-09-19 Outpatient [facility], MDA MDA [id number] MD 12:00:00 23:59:00 ERWIN Nathan o n 2020-09-18 2020-09-18 Outpatient [facility], MDA MDA [id number] MD 12:00:00 23:59:00 ERWIN Nahtan o n 2020-09-17 2020-09-17 Outpatient [facility], MDA MDA [id number] MD 11:01:21 23:59:00 ERWIN Nathan o n 2020-09-17 2020-09-17 Outpatient [facility], MDA MDA [id number] MD 10:15:00 11:00:00 BOONE-BRANDEN Bernard rso n 2020-09-16 2020-09-16 Outpatient [facility], MDA MDA [id number] MD 12:07:04 23:59:00 ERWIN Nathan o n 2020-09-12 2020-09-12 Outpatient [facility], MDA MDA [id number] MD 12:40:00 23:59:00 ERWIN Nathan o n 2020-09-11 2020-09-11 Outpatient [facility], MDA MDA [id number] MD 12:40:00 23:59:00 ERWIN Nathan o n 2020-09-10 2020-09-10 Outpatient [facility], MDA MDA [id number] MD 12:35:00 23:59:00 ERWIN Nathan o n 2020-09-10 2020-09-10 Outpatient [facility], MDA MDA [id number] MD 10:10:54 12:34:00 BOONE-BRANDEN Bernadr rso n 2020-09-09 2020-09-09 Outpatient [facility], MDA MDA [id number] MD 12:50:00 23:59:00 ERWIN Nathan o n 2020-09-08 2020-09-08 Outpatient [facility], MDA MDA [id number] MD 12:40:00 23:59:00 ERWIN Nathan o n 2020-09-05 2020-09-05 Outpatient [facility], MDA MDA [id number] MD 12:35:00 23:59:00 ERWIN Nathan o n 2020-09-04 2020-09-04 Outpatient [facility], MDA MDA [id number] MD 12:35:00 23:59:00 ERWIN Nathan o n 2020-09-03 2020-09-03 Outpatient [facility], MDA MDA [id number] MD 11:45:56 23:59:00 ERWIN Nathan o n 2020-09-03 2020-09-03 Outpatient [facility], MDA MDA [id number] MD 10:45:00 11:44:00 [facility]so n 2020-09-02 2020-09-02 Outpatient [facility], MDA MDA [id number] MD 10:15:00 23:59:00 ERWIN Nathan o n 2020-09-01 2020-09-01 Outpatient [facility], MDA MDA [id number] MD 11:30:00 23:59:00 ERWIN Nathan o n 2020-04-06 2020-04-06 Patient Bryson [facility] [id number] 00:00:00 00:00:00 Outreach [facility] [id number] i ty of Dashawn [facility] [id number] Ryanne BARILLAS [id number] Az dical [address] 2020-02-13 2020-02-13 Outpatient [facility], MDA MDA [id number] MD 11:48:27 16:35:54 ERWIN Nathan o n 2020-02-13 2020-02-13 Outpatient [facility], MDA MDA [id number] 14:24:42 14:24:42 SANJUANITA Nathan o n 2020-02-13 2020-02-13 Outpatient MDA MDA [id number] MD 11:45:49 11:46:05 Nathan o n 2020-02-11 2020-02-11 Outpatient [facility], MDA MDA [id number] MD 10:30:46 10:59:09 ERWIN Nathan o n 2019-12-14 2019-12-14 Telephone Pako Lopez [facility] [id number] Univers 00:00:00 00:00:00 [facility] [id number] it [id number] [phone] [facility] [address] 2019-11-26 2019-11-26 Telephone [facility] [id number] Univers 00:00:00 00:00:00 [facility] [id number] [id number] [phone] [facility] [address] 2019-11-16 2019-11-16 Telephone [facility] [id number] Univers 00:00:00 00:00:00 [facility] [id number] [id number] [id number] [facility] [address] 2019-11-14 2019-11-14 Telephone Pako Lopez [facility] [id number] Univers 00:00:00 00:00:00 [facility] [id number] [id number] [phone] [facility] [address] 2019-10-11 2019-10-24 Office [facility] [id number] Univers 13:15:19 09:14:14 Visit [facility] [id number] [id number] [id number] [facility] [address] 2019-10-24 2019-10-24 Telephone [facility] [id number] Univers 00:00:00 00:00:00 [facility] [id number] [id number] [phone] [address] 2019-10-24 2019-10-24 Patient Fracisco Silverneeta [id number] Univers 00:00:00 00:00:00 Outreach Jaclyn Diaz [id number] [phone] [address] 2019-10-24 2019-10-24 Patient Petra Bai 1.2.840.114 [id number] Univers 00:00:00 00:00:00 Outreach E [place] [id number] [place] [phone] [address] 2019-10-24 2019-10-24 Telephone Lopez, [facility] 1.2.840.114 [id number] Univers 00:00:00 00:00:00 un [facility] [id number] [place] 4[place].2.[place] [phone] [address] Office [facility] 2019-10-23 2019-10-23 Telephone Lopez, [facility] 1.2.840.114 [id number] Univers 00:00:00 00:00:00 un Health [id number] [place] 4[place]2.7.2.[place] [phone] [address] Office Building 2019-10-22 2019-10-22 Telephone Lopez, [facility] 1.2.840.114 [id number] Univers 00:00:00 00:00:00 un Health [id number] [place] 4[place]2.7.2.[place] [phone] [address] Office Building 2019-10-19 2019-10-19 Telephone Lopez, [facility] 1.2.840.114 [id number] Univers 00:00:00 00:00:00 un Health 350.1.13.10 it y of [place] [phone] [address] Office Building 2019-10-18 2019-10-18 Outpatient R LOPEZ, [facility] [id number] Univers 14:00:00 14:00:00 ity [facility] 2019-10-11 2019-10-11 Outpatient R LOPEZ, [facility] [id number] A-[id number] Univers 13:00:00 13:00:00 [id number] ity [facility] 2019-10-11 2019-10-11 Outpatient R JOHN [facility] [id number] Univers 13:00:00 13:00:00 ity of [facility] 2019-10-04 2019-10-04 Telephone Pako Lopez 1.2.840.114 [id number] Univers 00:00:00 00:00:00 Shun RAHAT 350.1.13.10 it y of [facility] 4.2.7.2.686 [place] as [phone] [address] 2019-10-04 2019-10-04 Orders Doctor KYE 1.2.840.114 [id number] Univers 00:00:00 00:00:00 Only Unassigned, RAHAT 350.1.13.10 ity of [facility] 4.2.7.2.686 [place] as [id number] [address] 2019-10-03 2019-10-03 Outpatient R JOHN [facility] [id number] Univers 08:00:00 08:00:00 ity of [facility] 2019-10-03 2019-10-03 Telephone Lopez [facility] 1.2.840.114 [id number] Univers 00:00:00 00:00:00 Shun Health 350.1.13.10 it y of [facility] 4.2.7.2.686 [place] [facility] [phone] [address] Office Building 2019-10-03 2019-10-03 Orders Doctor KYE Martin.2.840.114 [id number] Univers 00:00:00 00:00:00 Only Unassigned, RAHAT 350.1.13.10 ity of [facility] 4.2.7.2.686 [place] as [phone] [address] 2019-09-28 2019-09-28 Orders Doctor FISHMAN 1.2.840.114 [id number] Univers 00:00:00 00:00:00 Only Unassigned, RAHAT 350.1.13.10 ity of [facility] 4.2.7.2.686 [place] as [phone] [address] 2019-09-23 2019-09-23 Refill John [facility] 1.2.840.114 [id number] Univers 00:00:00 00:00:00 Shun Health 350.1.13.10 it y of [place] [phone] [address] Office Building 2019-09-21 2019-09-21 Vegetable Canner Draw, Clc-Bls Lab [facility] 1.2.8 40.114 [id number] Univers 12:13:57 12:28:57 Visit Pako Lopez [facility] 350.1.13 .10 ity of [place] [phone] [address] Office Building 2019-09-21 2019-09-21 Office John [facility] 1.2.840.114 [id number] Univers 11:04:12 11:34:12 Visit [facility] Health 350.1.13.10 it y of [place] [phone] [address] Office [facility] 2019-09-21 2019-09-21 Outpatient R JOHN [facility] [id number] Univers 10:30:00 10:30:00 [id number] ity of [facility] 2019-09-21 2019-09-21 Outpatient R JOHN [facility] [id number] Univers 10:30:00 10:30:00 ity of [facility] 2019-09-21 2019-09-21 Telephone Pako Lopez 1Jf2.840.114 [id number] Univers 00:00:00 00:00:00 un RAHAT 350.1.13.10 it y of [facility] 4.2.7.2.686 [place] as [phone] [address] 2019-09-21 2019-09-21 Telephone John [facility] 1.2.840.114 [id number] Univers 00:00:00 00:00:00 Shun Health 350.1.13.10 it y of [place] [phone] [facility] [address] Office Building 2019-09-18 2019-09-18 Telephone Pako Lopez 1Jf2.840.114 [id number] Univers 00:00:00 00:00:00 Shun RAHAT 350.1.13.10 it y of [facility] 4.2.7.2.686 [place] as [phone] [address] 2019-09-18 2019-09-18 Telephone Lopez, Pako FISHMAN 1.2.840.114 [id number] Univers 00:00:00 00:00:00 Shun RAHAT 350.1.13.10 it y of [facility] 4.2.7.2.686 [place] as [phone] [address] 2019-09-14 2019-09-14 Office Lopez, [facility] 1.2.840.114 [id number] Univers 09:53:55 10:46:20 Visit [facility] 350.1.13.10 it y of [facility] 4.2.7.2.686 [place] [phone] [address] Office Building 2019-09-14 2019-09-14 Outpatient R LOPEZ, [facility] [id number] Univers 10:00:00 10:00:00 ity of [facility] 2019-09-14 2019-09-14 Outpatient R LOPEZ, [facility] [id number] Univers 10:00:00 10:00:00 ity of [facility] 2019-09-14 2019-09-14 Orders Doctor KYE 1.2.840.114 [id number] Univers 00:00:00 00:00:00 Only Unassigned, RAHAT 350.1.13.10 ity of [facility] 4.2.7.2.686 [place] as [phone] [address] 2019-09-07 2019-09-07 Outpatient R LOPEZ, [facility] [id number]-20 Univers 08:00:00 08:00:00 [id number] ity [facility] 2019-09-07 2019-09-07 Outpatient R LOPEZ, [facility] [id number] Univers 08:00:00 08:00:00 ity [facility] 2019-09-03 2019-09-06 Office Lopez, [facility] 1.2.840.114 [id number] Univers 15:04:24 10:34:22 Visit [facility] 350.1.13.10 it y of [place] [phone] [address] Office Building 2019-09-05 2019-09-05 Patient Doctor KYE 1.2.840.114 [id number] Univers 00:00:00 00:00:00 Secure Msg Unassigned, RAHAT 350.1.13.10 ity of [facility] 4.2.7.2.686 [place] as [phone] [address] 2019-09-03 2019-09-03 Vegetable Canner Draw, Clc-Bls Lab [facility] 1.2.8 40.114 [id number] Univers 16:05:21 16:20:21 Visit Pako Lopez leanna [facility] 350.1.13 .10 ity of [place] [id number] [address] Office Building 2019-09-03 2019-09-03 Outpatient R [facility] [id number] -[id number] Univers 16:15:00 16:15:00 [id number] ity [facility] 2019-09-03 2019-09-03 Outpatient R PAKO LOPEZ [facility] [id number] Univers 15:00:00 15:00:00 ity of [facility] Orders Doctor KYE 1.2.840.114 [id number] Univers 00:00:00 00:00:00 Only Unassigned, RAHAT 350.1.13.10 ity of [facility] 4.2.7.2.686 [place] as [phone] [address] Results Test Description Test Time Test Comments Results Result Comments Source Urine Culture 2020-09-01 03:02:02 Test Item Value Reference Range Interpretation Comme nts Final Report (test code = 8488) No growth Path Review - Urine (test code = The results have been reviewed and 8483) electronically signed by Pathologist:TIM BURNETT MD #[id number] [facility] Interpretation Antibody Screen Ntidzvfo6969-05-59 13:45:15 Test Item Value Reference Range Interpretation Comments TMP Auto Neg At the present ABSC Interp time, patient (test code = plasma shows no ____JOSETTE ADAMS 7535) evidence of RBC HAO CASILLAS MD alloantibodies. - [id number] esteban by: JOSETTE RAMIREZ MD - [id number] Date/Time: 08.13 8:45 AM CDT Transcribed Bob e/Time: 08.31.2020 8:45 AM CDTElectronical ly Signed By: JOSETTE RAMIREZ MD - [id number] on 8:45 AM C MD Sextonbody Txbswq0114-62-28 01:37:49 Test Item Value Reference Range Interpretation Comments ABSC. (test code = 890-4) Negative ABSC MD ValdiviaBxnfqcouVPBDu2950-05-81 01:37:48 Test Item Value Reference Range Interpretation Comments ABORh. (test code = 882-1) O POS MD ValdiviaClot Expiration Gmcl4310-20-73 01:37:44 Test Item Value Reference Range Interpretation Comments T & S Expiration (test code = 09/02/2020 5318) MD ValdiviaNgdditynETQ8170-58-26 23:09:49 Test Item Value Reference Range Interpretation Comments TSH (test code = 1.51 See_Comment [Automated message] The 7578) system which ge nerated this result transmit esteban reference range : 0.27 - 4.20 mcunit/mL. The reference range was not used to interpr et this result as cuate l/abnormal. MD Khan [id number] 23:09:48 Test Item Value Reference Range Interpretation Comments T4 Free (test code = 7502) 1.77 ng/dL 0.93-1.70 H Lab Interpretation (test code = Abnormal 96202-7) MD ValdiviaInfluenza A/B + COVID-19 Asymptomatic- [id number] 22:53:14 Test Item Value Reference Range Interpretation Comments COVID19 Not Detected Not Detected (SARS-CoV-2) (test code = 16451-4) Influenza A (test Not Detected Not Detected code = 31786-3) Influenza B (test Not Detected Not Detected code = 93287-4) COVID19 SARS Inpatient Indication (test Admission code = 30444) Inf AB+Cov19 See Note The walter SARS- CoV-2 Comment (test & Influenza A/ B code = 56220) nucleic acid t est for use on the mu s Rachel System is a Storitzlex real-time RT-PC R assay intended for the [...] sheet for patie nts provided by the car trimmer ([place], [employer]) can be rev iewed at: https://www.fda .gov/m edia/319913/priscila nloadA fact sheet for Health Care providers is provided by the car trimmer ([employer]) and can be reviewed at: https://www.fda .gov/m edia/453947/priscila nload Influenza A and Influenza B neg [...] This assay has been authorized by t FDA for use only un ranjith Emergency Use Authorization ( EUA) in laboratories that have been CLIA-certified to perform moderate-comple xity and high-comple xity tests. The Microbiology Laboratory at [facility], CLIA Accreditation #[id number] and CAP Accreditation #[id number], verif ied the performance characteristics of this assay. Int ernal controls are us ed to monitor all sta ges of the test adis ValdiviaPartial Thromboplastin Sqmj4036-16-02 22:52:55 Test Item Value Reference Range Interpretation Comments aPTT (test code = 31.4 See_Comment [Automate d message] The 6773) system which ge nerated this result transmit esteban reference range : 24.7 - 36.8 second(s). The reference range was not used to interpr et this result as cuate l/abnormal. MD ValdiviaProthrombin Time with [id number] 22:52:54 Test Item Value Reference Range Interpretation Comments PT (test code = 6746) 13.3 See_Comment [Auto mated message] The system which ge nerated this result transmit esteban reference range : 11.5 - 13.9 second(s). The reference range was not used to interpr et this result as cuate l/abnormal. INR (test code = 1.08 0.90-1.10 5973) MD ValdiviaFractionated Johbdxaim0514-05-94 22:37:55 Test Item Value Reference Range Interpretation [...] 28 g/L. [Automate d message] The system whic h generated this result [...] outside rep ortable range MD ValdiviaGlomerular Filtration Traq5457-09-44 22:37:54 Test Item Value Reference Range Interpretation [...] failure <15 [Automa esteban message] The system [employer] generated this result tra nsmitted reference range : >=60 mL/min/1.73 sq. m. The reference range was not used to interpret th is result as normal/abnormal . eGFR-DARIEN (test [...] failure <15 [Automa esteban message] The system [employer] generated this result tra nsmitted reference range : >=60 mL/min/1.73 sq. m. The reference range was not used to interpret th is result as normal/abnormal . MD ValdiviaUric Ekky1014-93-44 22:37:53 Test Item Value Reference Range Interpretation Comments Uric Acid (test code = 7955) 3.1 mg/dL 3.4-7.0 L Lab Interpretation (test code = Abnormal 63657-6) MD ValdiviaTotal Qhdokaj9389-90-56 22:37:52 Test Item Value Reference Range Interpretation Comments Total Protein (test code = 7649) 6.4 g/dL 6.4-8.3 MD ValdiviaMagnesium Wdxhd4813-33-01 22:37:49 Test Item Value Reference Range Interpretation Comments Magnesium (test code = 6359) 2.0 mg/dL 1.6-2.6 MD ValdiviaPhosphorus Afmmr9275-73-03 22:37:48 Test Item Value Reference Range Interpretation Comments Phosphorus (test code = 6817) 4.0 mg/dL 2.5-4.5 MD ValdiviaAlkaline Anhzdarqatv3107-42-16 22:37:47 Test Item Value Reference Range Interpretation Comments Alk Phos (test code = 4768) 76 U/L 40-129 MD ValdiviaCalcium Qsuiw3505-99-84 22:37:46 Test Item Value Reference Range Interpretation Comments Calcium Lvl (test code = 5258) 9.3 mg/dL 8.4-10.2 MD ValdiviaFjiiwkwiNGG7289-52-05 22:37:45 Test Item Value Reference Range Interpretation Comments ALT (test code = 18 U/L See_Comment [Automated message] The 1212) system which ge nerated this result transmit esteban reference range : <=41. The reference range was not used to interpr et this result as cuate l/abnormal. MD ValdiviaAlbumin Qofrg5682-60-81 22:37:44 Test Item Value Reference Range Interpretation Comments Albumin Lvl (test code 3.9 See_Comment [Aut omated message] The = 9341) system which ge nerated this result tra nsmitted reference range : 3.5 - 5.2 gm/dL. The refe rence range was not used to interpret this result as normal/abnormal . MD Valdivia.Serum Tpvkhcpocw9983-64-22 22:37:43 Test Item Value Reference Range Interpretation Comments Creatinine (test code = 5399) 0.77 mg/dL 0.67-1.17 MD ValdiviaAspartate Bwnnbdzjpicedzxj7894-52-10 22:37:42 Test Item Value Reference Range Interpretation Comments AST (test code = 17 U/L See_Comment [Automated message] The 4731) system which ge nerated this result transmit esteban reference range : <=40. The reference range was not used to interpr et this result as cuate l/abnormal. ZlbtrzudDOC4592-79-02 22:37:41 Test Item Value Reference Range Interpretation Comments BUN (test code = 5055) 14 mg/dL 6-23 MD ValdiviaElectrolyte Uhpxu4235-22-08 22:37:40 Test Item Value Reference Range Interpretation [...] = 10 See_Comment [Aut omated message] The 9390) system which ge nerated this result tra nsmitted reference range : 4 - 14 mEq/L. The refe rence range was not u sed to interpret this result as normal/abnormal . MD ValdiviaGlucose Gvejc7131-99-66 22:37:38 Test Item Value Reference Range Interpretation [...] diabetes Lab Interpretation (test Abnormal code = 90569-3) MD ValdiviaJbzwzjyeItifup8871-11-56 22:33:18 Test Item Value Reference Range Interpretation Comments Lipase Lvl (test code = 6165) 17 U/L 13-60 MD ValdiviaUajbcmqoBpjtxnj5500-31-93 22:33:17 Test Item Value Reference Range Interpretation Comments Amylase Lvl (test code = 4806) 96 U/L 28-100 [facility] Troponin [id number] 22:24:38 Test Item Value Reference Range Interpretation Comments POC CTNI (test 0.00 ng/mL 0.00-0.08 This cTnI john t is code = 12323-3) performed by the Imsmz-qr-Ibmf a nalyzer method,and the result may be [...] immunosorbent a ssay (SNEHA) method. Antibodies spec [facility] t roponin I [...] code = 6672) Performing Lab [facility] n[facility] (test code = [facility] [address]) Clinical Lab, [address], [place], [place] [address]; Coremaker: MD MD Skip RauschDifferential2021-06-19 22:08:26 Test Item Value Reference Range Interpretation Comments Neutrophil % (test code = 71.7 % 42.0-66.0 H 11793-6) Lymphocyte % (test code = 16.2 % 24.0-44.0 L 737-7) Monocyte % (test code = 8.6 % 2.0-7.0 H 744-3) Eosinophil % (test code = 2.5 % 1.0-4.0 713-8) Basophil % (test code = 0.4 % 0.0-1.0 707-0) IGRE % (test code = 0.6 % 0.0-0.4 H IGRE % c ount 00368-9) includes Metamyelocytes, Myelocytes, and Promyelocytes. Neutrophil Abs (test code 3.50 K/uL 1.70-7.30 = 753-4) Lymphocyte Abs (test code 0.79 K/uL 1.00-4.80 L = 732-8) Monocyte Abs (test code = 0.42 K/uL 0.08-0.70 743-5) Eosinophil Abs (test code 0.12 K/uL 0.04-0.40 = 712-0) Basophil Abs (test code = 0.02 K/uL 0.00-0.10 705-4) IG Abs (test code = 0.03 K/uL 0.00-0.04 36611-1) Lab Interpretation (test Abnormal code = 39304-7) MD Valdivia.EVC1445-27-81 22:08:23 Test Item Value Reference Range Interpretation Comments WBC (test code = 4.9 K/uL 4.0-11.0 6690-2) RBC (test code = 789-8) 3.82 See_Comment L [Au tomated message] The system [employer] generated this result transmitted ref erence range: 4.50 - 6 .00 M/uL. The refer ence range was not u sed to interpret this result as normal/abnor mal. Hgb (test code = 718-7) 11.6 See_Comment L [Au tomated message] The system [employer] generated this result transmitted ref erence range: [...] See_Comment [Automate d message] 786-4) The system [employer] generated this result transmitted ref erence range: 31.0 - 3 6.0 gm/dL. The refe rence range was not u sed to interpret this result as normal/abnor mal. RDW-SD (test code = 45.1 fL 35.1-46.3 35819-0) RDW-CV (test code = 13.4 % 12.0-15.5 [...] cell differential. [Automated mess age] The system [employer] generated this result transmitted ref erence range: <=0.0. T he reference range was not used to int erpret this result as normal/abnormal . Lab Interpretation Abnormal (test code = 90604-8) [facility] Glucose Fvclth8988-06-48 21:51:17 Test Item Value Reference Interpretation Comments Range POC Glucose (test 106 mg/dL 70-99 H Capillary blood code = 19012-5) samples, e.g . obtained by fingerstick, ma [...] Capillary code = 9554) Performing Lab (test [facility] code = 49296) [facility] Skip Cli nical Lab, [address], [place] [address]; Coremaker: Nancie Stafford MD Lab Interpretation Abnormal (test code = 58520-5) MD ValdiviaBlood Culture- Irqgtcxqlr0434-90-91 22:41:02 Test Item Value Reference Range Interpretation Comments Final Report (test No growth code = 8488) Path Review - Immunity and antibiotic Bottle/Isolator use may render culture (test code = 8499) negative. Ongoing infection requires repeat culture.The results have been reviewed and electronically signed by Pathologist:TIM BURNETT MD #[id number] BEVERLEY (test code = Short draw may invalidate BEVERLEY) quantitative blood culture results.08/21/2020 1:52:33 PM CDT MD ValdiviaUrinalysis with Sgamqbphixf9007-02-72 18:18:59 Test Item Value Reference Range Interpretation [...] the implementation of new instrumentation in the [facility], allowing greater sensitivity of measurement. Urinalysis results reported by the [facility] using existing instrumentation, as well as Urinalysis testing performed manually or by backup methodology at the [facility] will remain relatively unchanged. New reporting parameters and units will now be reported for all thawvillees. MD ValdiviaUrinalysis w/Microscopic if Bidpmdvdy1734-31-18 18:14:16 Test Item Value Reference Range Interpretation [...] NEG Lab Interpretation (test code = Abnormal 52914-4) MD ValdiviaTroponineeta T (In-House)2020-08-22 05:25:59 Test Item Value Reference Range [...] res ults. [Automated mess age] The system [employer] generated this result transmitted ref erence range: <=18. e reference range was not used to int erpret this result as normal/abnormal . Lab Interpretation Abnormal (test code = 57119-3) MD ValdiviaRespiratory Viral Panel + COVID-19, Nasopharyngeal Mbef1352-60-15 19:12:52 Test Item Value Reference Range Interpretation Comments Adenovirus (test code = Not Detected Not Detected 8229) Coronavirus 229E (test Not Detected Not Detected code = 5349) Coronavirus HKU1 (test Not Detected Not Detected code = 5350) Coronavirus NL63 (test Not Detected Not Detected code = 5351) Coronavirus OC43 (test Not Detected Not Detected code = 5352) COVID19 (SARS-CoV-2) Not Detected Not Detected (test code = 92400-4) Human Metapneumovirus Not Detected Not Detected (test [...] Detected Not Detected Parapertussis (test code = 03683) Bordetella pertussis Not Detected Not Detected (test [...] including SARS-CoV-2, from a single nasopharyngeal swab (MANAGER [employer]IATION) specimen. Specifically, the SARS-CoV-2 primers contained in [...] and high-complexity tests. The Microbiology Laboratory at [facility], CLIA Accreditation #[id number] and CAP Accreditation #[id number], verified the performance characteristics of this assay. Microbiology Laboratory at [facility] performs the assay using the [employer] System. Internal controls are used to monitor all stages of the test process. MD Leal Ickbk2922-54-30 18:16:36 Test Item Value Reference Range Interpretation Comments D-Dimer (test code 0.30 See_Comment The cut o ff value for = 5419) exclusion of ve nous thromboembolism is <0.51 mcg/mL FEUs (fibrinoge n equivalent units). [Autom ated message] The system [employer] generated this result tra nsmitted reference range : 0.10 - 0.50 mcg/ml FEU. The reference range was not u sed to interpret this result as normal/abnormal . MD ValdiviaHpmekbzpZwfwxaotwg6944-88-48 18:16:23 Test Item Value Reference Range Interpretation Comments Fibrinogen (test code = 5610) 324 mg/dL 214-503 MD [facility] Chem 8 without Hemoglobin and Xzfcpvhwee2070-00-05 18:08:40 Test Item Value Reference Range Interpretation Comments POC NA (test code = 140 See_Comment [Automa esteban message] 19227-6) The system [employer] generated this result transmitted ref erence range: 138 - 14 6 mEq/L. The refe rence range was not u sed to interpret this result as normal/abnor mal. POC K (test code = 3.6 See_Comment Method de scription: 41863-7) The i-STAT is a n analyzer used f or in vitro quantific ation of various anal ytes in whole blood. The device uses a s kira disposable cart ridge which contains microfabricated sensors, a calibration elaine ution, fluidics system , and a waste chamber . Each test cartridge contains chemic ally sensitive biose nsors on a Icinetic ip that are config ured to perform [...] See_Comment [Automa esteban message] 2068-05) The system [employer] generated this result transmitted ref erence range: 98 - 109 mEq/L. The refe rence range was not u sed to interpret this result as normal/abnor mal. POC VTCO2 (test code 26 See_Comment [Autom ated message] = 2026-03) The system [employer] generated this result transmitted ref erence range: 24 - 29 mEq/L. The reference r laurel was not used to interpret this result as normal/abnor mal. POC Anion Gap (test 19 mmol/L 12-31 code = 66840) POC BUN (test code = 14 mg/dL 11-06 6299-2) POC Crea (test code 0.9 mg/dL 0.6-1.3 Medicati ons, = 06413-3) especially hydroxyurea or supplements, michael ch as [...] which contains microfabricated sensors, a calibration elaine [employer], fluidics system , and a waste chamber . Each test cartridge contains chemic ally sensitive biose nsors on a Icinetic ip that are config ured to perform spec ific tests. The microfabricated sensors measure analyte concent ration by an electroch emical assay. POC eGFR-AA (test 94 See_Comment Normal eGF R >= 60 code = 53770-8) mL/min/1.73 m2 The eGFR is calcula esteban [...] f ailure <15 (or lester lysis) [Automated [employer]] The system [employer] generated this result transmitted ref erence range: >=60 mL/min/1.73 m2. The reference range was not used to int erpret this result as normal/abnormal . POC eGFR-DARIEN (test 82 See_Comment Normal eG FR >= 60 code = 22571-1) mL/min/1.73 m2 The eGFR is calcula esteban [...] f ailure <15 (or lester lysis) [Automated [employer]] The system [employer] generated this result transmitted ref erence range: >=60 mL/min/1.73 m2. The reference range was not used to int erpret this result as normal/abnormal . POC Glucose (test 115 mg/dL 70-99 H code = 66862-5) POC Ion Ca (test 1.13 mmol/L 1.12-1.32 code = 85720-9) POC Sample Type Venous (test code = 6690) POC Clean Dev (test Yes code = 6672) Performing Lab (test [facility] Main [facility] mpus code = 67262) [facility] MD Valdivia Cli nical Lab, [address] [facility] [address], [place] [address]; Coremaker: Nancie Stafford MD Lab Interpretation Abnormal (test code = 17968-1) MD [facility] VBG+Wkb1526-68-79 18:08:38 Test Item Value Reference Range Interpretation [...] 29 See_Comment [Automate d message] code = 7-1) The system wh ich generated this result transmitted ref erence range: 24 - 29 mEq/L. The reference r laurel was not used to interpret this result as normal/abnor mal. POC VB Bicarb 28 mmol/L 23-28 (test code = 07680-1) POC VB Base Ex 3 mmol/L -2-3 [...] Yes (test code = 6672) Performing Lab [facility] (test code = [facility] [address]) Clinical Lab, [address], [facility] [place] [address]; Coremaker: MD MD Skip RauschLDH2021-06-10 18:07:09 Test Item [...] or equal to 10.00 mg/L. MD ValdiviaCardiac Zbruw2044-42-71 17:57:45 Test Item Value Reference Range Interpretation Comments CK (test code = 5206) 102 U/L 39-308 CK MB (test code = 3.2 ng/mL See_Comment [Automat ed message] 8155) The system [employer] generated this result transmitted ref erence range: [...] res ults. [Automated mess age] The system [employer] generated this result transmitted ref erence range: <=18. Th e reference range was not used to int erpret this result as normal/abnormal . Lab Interpretation Abnormal (test code = 57647-2) MD ValdiviaPathology Biopsy Htdfdsuievdrpj4330-18-08 21:46:00 Test Item Value Reference Range Interpretation Comments Submitted Clinical History [id number] (test code = 02167) mbGFuZzEwMzNcZnRuYm pcdWMxIHtccnRmMVxzc 3GeB4OoCuUdHIdbapTz XGRlZmxhbmcxMDMzXGZ 0bmJqXHVjMVxkZWZmMH ksLd8naQSjbPsrMoZaZ KOxe7lsqmZOxxtpnNf9 m2ieNQBwSzU7fMEnQSz zQ3rprqQggKQzIYCgLK g2oF08ZXLngR4lkIJpS AeamhDlIxT9YMdnPHYc DeK3MIUjzGKdJTPcS4n yZWQwXGdyZWVuMFxibH NhTWT3jJwpt6G8pIHcl GVldHtcZjBcZnMyMiBO n2CgBKn9rJzkY8QvIBP yPmY8jSZrJRSyNTgvOZ QjEZLygnO2hQ97KCuqj tL0yILnv0Bda18xu688 sT0huDJpCYS9YHShQMZ lgZSwXFYxEEM0PVJprS LbG7hhMUJmJS6pomcrR EltIOjdMSZugML7RDHz jEWnB7PeISRzOFjtKKY xqmk6XvSwWw9fyURzzP qpRKyfg9nxz9ylnQHpM yx5JNZmXpYvCdilDQun c0Lbm8rtHNTtnz3oKHC 0qQKkyOjro9P7dJCtOX PjnWOxiuMkGMMwOwF9X IqrKI5gxr95AIXmZRU8 ls2dkECrnPkfqvKdhNV yANpaU4PjZBJzs532QC XrC6EoLAFrg7D2ifHhZ gWcJNAfkNG8dvC9INZa OCd6cNHmgeZ3gxDlvER oA5ylnH8xGBUeCB3yqc gjy8tcBBscQHnyVKFcl BC1yyT2GNOvgFXaT1Yf yE7xIJHfNYdtQEUoilb 2ZgFiUs5hpLGciGlaAO xzYmtwYWdlXHBnbmNvb nRccGduZGVjXHBsYWlu XHBsYWluXGYwXGZzMjR vyNvvnMroxO8pZvMyAc OeYKdjMV9cXGYgE3tyu JPkXDXhEYQnQ7oxFlQu eL1dwOilOPpgcsVsVWI xDR4uJ9SvF5kqm67eGO 3mHGFby7C8NBFsWGwXK jFdXHBsYWluXGYxXGZz MjJcbGFuZzEwMzNcaGl jaFxmMVxkYmNoXGYxXG iaF8nuJcUvUhLkYiiaA XJ9fQ== Diagnosis (test code = 34) p1dxyDFeWLIhfDO6SbY kAUPxz9jha3VcqWUgkG LqNSsdnVBvhaAyiv04q YG9iI56RO9pVUPfJwK1 PARjgwB8Qgr1DOMnBQH cvZSbL122t1oit3aucn TasNC7sUkqTJFeHQWxJ YkeLORaCqLoQRqsO13g a14gEDOkF0QfJJpfTkn gS09rAIRnvGwdspL9Qe nwDspksVW6GtjqXEYww Gn1OzUapGarSgQvHNSm rO0tkFAbqTRqp7ZsQZs hzRzkg96gqIxseWtgaD hvaWQgYWdncmVnYXRlc t3cnDZoFK6ccLUmo1Lu ycPuy5ejRzDcwCIdOAq xEZjwqV8nARPlcvQKHx RUo3xiknfgWRMfEZ9jl N0hZYSfDV4sFPDewWya MZVsfC1rs7l0ZQZvxil ukGllLFophE10IeEjEM GnuKixsugkoM94irJtI ZEza48zQdQcaOJmYB2m eJCre8XdqoSly6sfKoS yoIPhQMktIHzdnR9rZZ InmeQCNxVDm8sbsohyf AUzwdG9VEOtRUhnK55n XMPqhJlnxnJ0GlkoWsv veHX4XdhzUBNviJk5Os BcbGluNzIwIEZyYWdtZ D10smGgHlN4vVT5jWLh VOPtAK3jfRZfpsroSAx jTGRaVRQdYR5sn6ruAD NvbGkuIFxwYXJcbGkwX PmbolSttUFeKDT2MVEf mA1vKIZoCXGoYZ4kqG2 zEWMsrL6gcT2jpOPeVI x9EVCzbG0sm9p1FNFbv uouhVgsBFimoU16DvUo ZvRoB83cksNwTT2pIMY 2FgShGAOiPVVjlh1vLO jlRP4wKPUxydKBxuTpt VOanYDjz3OxlKxtFFKx bGFzdGljIHBvbHlwKHM vQqWxkANqOH7npMVhx3 FojmTat2noYaLqqAChH JkcALnwgL4gUQUudmVK ToFEt0iogkorb2xdrD0 tXIdqCn0uUYRgrWvfJI IhoN8yc0o3ZPWlnhqsy CbtHMbkzB98FxLrMCds ZXJwbGFzdGljIHBvbHl aDqSlhSEsSY7hbSOjv4 KnlhIrn9koYdQklKHmC YfsENfjvH8rCQCjbgZS LvREz1jytbepizSueT8 jgRdso9fuVZNxTXXjuS Kuc8e9bNUepQFvHONdd 3BzeTpccGFyXGxpNzIw XGxpbjcyMCBGcmFnbWV mvFRps3AqtFebEKIstX FzdGljIHBvbHlwKHMpL wOypGNaDE9yuVNgq8Ux nqNec9uhBgVusVNzKXR hclxwYXJkXHBhcn0= Gross Description (test b7nltZFpQCDirIKGVAK code = 7141336860) wMVxhbnNpXHNwbHRwZ3 EqmeomTTksKU9lZP4hz ZwiqIGcrVDdCD3BIOWt ZmYxXHBhcGVydzEyMjQ wHHKocXFlkET2ABIqHZ 1hcmdsMTgwMFxtYXJnc uO8EYZyeBTqN6FqUJMf NX4iemybFUF7TCandZ3 ltlCWXbrbXb1fiBHsxU tcZjFcZmNoYXJzZXQwX OErkNwcFPFdFMe1wN1R DwhwIWW1MLLUVqzpVNI rNF7Pw5bvCUHygEJdSW V0OXzplBDmOWCnBMYkR Co2JNOvDIfcaWIqLN8r fFzsCunaxLpnn8FhsTG cXGlkIDUxMDAyIFxcZG QiFI4NOwAmTIJgQCWnI ajcWUn6SIr2OY7JKlBi ICAgNDgxNzYxNSIgOTk 0TWzuPS4HRDczORC7Lr a2FZJ6FOI4LOZjKAYxF iBcXGYgQXJpYWwgXFxm cyAxMCBcXGZiIFxcZmw lVTlsA38fiKqsmY5xYm adncQbNSE6MALrzcEPP lxwbGFpblxlcGljTmVz dERvYzEgDQpcbHRycGF yXGxpbjBccmluMCANCl xsdHJjaFxiXGZzMjAgQ 82ej01ePCUkS9WkHOma QtoiQ37wNOHgV2LtFQm pBpWxw7jkceErzU5vxD BzIHggMjpcYjAgIENvb rOmh9KrKA7yLVOehTSd QMWsNzRqsCwnc6QbMKF kFHxpUG91brGwTUKsgP UeoycaVL65BSZmLTYxK 5mhXXUTtYs9ZDEoUSof VD80uNAxtHxch0FhmPz 0dGVkIGluIEExLiAgXH Fei0LuU5J1VKQzDUxya 4pyBXAtAEajh6VhBCzH OZUOLL4XGW8pxZD1TKn TR9RIT9qTrMXxCCY6yM V1BYTYByluwUG8lHI0a L08TDYnAOHucXDmXJme T991BpZ8SCXsDPiym1x wOSXdAGtpu7WjKFyXAQ XCRV3PYB5biMX3UDxRT 0VORHwyMTAxNnwxfFVT YNA0HQzgcAftnIg3k8i clODjy2o8ECvqRFW0zH xwbGFpblxsdHJjaFxmc lVdBW3KSTFwNUwbZEEv xDHRVON8VI5dFYjadKO qhlxvNUFrZ0AzL0Xwxi FyjSWbHGFexzYta9jnF IH7SBVneRTrqZPaJrDv BumgVKL5OBx2DWnoQLD pE7DaB4DrWNzfWVC7HG AwMiBcXGRiICBPVlIgI xUIWPK9SSD0RcD5YGg3 DPZKJgOrViJoWOE7AXa 5SYCaHWo1PZo5OGiGVi L8RfU2CRK3HaBlDHS5Y SPyMJt6ATSmIZwbMZHh aWFsIFxcZnMgMTAgXFx fBqFtELIzHIrnreS6NT JcZnMyMCBCOlxwYXIgD BvftDrmiR9kLQWwZ10e z9IMk1KdZV6YJIx9wbO ftkrocM0hBTFwnmXhTJ ccsZFjP4yrSobhaxHmP VBdiJ8aYOYtk6EyuoYb bgjdPRHzkZ1nVNQhWN7 brX9xUPJpoD8bCAXngB uoCdfhLULoX74zm0qpf CXcv8LyHpT9NC5miJpl vhDmk9G1WFTar5V3ZQU mcmFnbWVudHMgbWVhc3 LjuF3kALQoQQBqfCOrQ WNoLCBlbnRpcmVseSBz bNSalJO8TLQpzW3oVuT uICBccHJvdGVjdHtcZm quyMQ4DAbhKbfmeZ5wo CBIWVBFUkxJTksgbmFt GM6AMK4UBiKKKA19ZbY wGJX7OOpGZ7NAyJQ7Tb a6VLt2uSdxNeyvzkBgm LCrFlCXfC9LPTogSale eQQ4PQfzXjgfpF1cnQO IWVBFUkxJTksgbmFtZT 0RSL3ITX8AhEVkGTC5c UU7BZRVCroymXJ9hRD0 eO50CLAwQYGwpADzVZa mY825QLBvMAniBNl8hi NoXGZzMjAgDQpccGxha G5qTUAjJ03bk1FVa6Uq STDgLBews7wxgAsgd4U jdGVuZFxwYXJccGFyZF mguH4vKgTom1irgEm8K QsaxwN0VYTezh2ABqgx DvkysUpxg9GrbPXhERp kIDUxMDAyIFxcZGIgIE 9WUiAiIEMxNTYxNjgiI Oo0QBj2CV5EJuClWADo ZLyhEmAsMyZhIQk3XYq eVB5XXKzzAHW0Qee6Qh I4EAC5TWJcGKJwGhOfJ GYgQXJpYWwgXFxmcyAx MCBcXGZiIFxcZmwgXFx eJ27qEizoeaKrXEA8VQ BhciANClxwbGFpblxlc GljTmVzdERvYzEgDQpc bHRycGFyXGxpbjBccml uMCANClxsdHJjaFxiXG RoNlQgF47hl48gGSAlK G8vjcBhl7OxYKStdLI1 rpPqm2UmniDrPBTihW1 yUEIggHqrknK4RCDiZg saWBDlV86cd5xiwGAzt 9ByHqQ2FD6dv27chSG6 zKAcoLTnDhMaK12lziL fJE4pVOW0vrhaRtWbMu DkJ62nTKKftV5pPTWok HRlcmVkLCBlbnRpcmVs dTUfaGKafQM8QZLjgW9 gQzEuICBccHJvdGVjdH cuZzamyGG1JAdiXdohw H9reDLTYAUVLxoPVggh mlCiRW6BGQ1ECrEKJT8 4AfHlIPN0YJaZV8HEcQ X0Ype7ULj5aWlhZrgrt dXdaBBxQtYShD3NDTbl MliyhOA0FCgeWhqqtE2 zdCBIWVBFUkxJTksgbm NiSN8MOB2NFA0XlQVgY KY3jBD1VBQZIwohtQC4 aVC2uO86GNYmBTTnhIZ hNQstL957BVLtEVtaKI o4ymEsTYZdZhKdSJaht KxspX0tKPSsT38fs6XO n3MqUICkJPjph3gwrXy tm3SizOMpJSxpFIOlcQ JmIRspqL0yZwExw7xrf Rg8MGllrqA5BGSgdk4N HhlnXxsbhVdwo6RzhWL cXGlkIDUxMDAyIFxcZG DlKT2IZbGcHTRwFHYfJ xuuBXj5CDg5QP0UUlQs ICAgNDgxNzYxOCIgOTk 4AWnnNA9LIVsqCYX9NN BvIRU9BML8ORGhKZNiC iBcXGYgQXJpYWwgXFxm cyAxMCBcXGZiIFxcZmw tCPemE53uLwuvvyAzXI W2NIFeffJYWadtlEFes lxlcGljTmVzdERvYzEg DQpcbHRycGFyXGxpbjB ccmluMCANClxsdHJjaF uaJPYkTnUkZ07cd55wL WEbx2BeorRggzrvVBDd lHUeZTBeFU4uvS2nGOA iiW5gTZDrjDnhybIthH L6NfvxYAVcU20ai4gxp LCbz4KglEHhjXvnmMYj yFEuCQOvDeHoqUpcj4N oJHTnHKlaTG68mdMoBW 0dgZ0tREbgINCjqaTpK eZrvYWaHeCvQF49HHAd LiAgRmlsdGVyZWQsIGV maCxyOTf2LMV4Qg1vrC YjYODpgcXSKU5mBVujr a01FDV6k9airUWyEEbh NrmnqXIsxuJ8ZVlXJZL EHXyUIrMxZO9aIBrITn tCRUdJTnwyMTAxNnwxf KFIHWY7YZjrvFjprSc5 f2wmcLNrz0h5RZryTGK 2vMoFn1cpxPOzPVbqLd rlcWPvwmC7EGjJEQDPZ BkMYiNfMO1iPBtTNimZ ZyW2LqElQXK8WMcGA4J NwKT3Eic7HQr8pTtiRd coelVfhWXeYzBYmI4qd AwqxJ0wuMMaC1jaDqXl MCANClxwbGFpblxlcGl jTmVzdERvYzBccGxhaW 23VOIdnNBjGQL5PY0pN HBhclxwYXJkXHNsLTE2 THhxgS13yXWdPJVgJDU yoYCkzA0Cm9apSFNayX VgTWZ9VBuhvBDpIYRpE BKiUBqrIlGwO6PRIHKi KfF0MaR9PFAvSDk6LPk pX9XGGJMqYWK2VTC9On V6QuN4FOj6UNJZBn7mU oM2Lmw5SBV9KCY0DkXm IFxcdCAyIFxcZiBBcml hbCBcXGZzIDEwIFxcZm XvWYjxlQMmIB2xbTweJ PLhEmUvAKwfrBXwFE4Q XHBsYWluXGVwaWNOZXN 7UJ8vBCSSGfonzUTtBR YmwCusREnadI5pAV2XG Hp5paKsSGScNxZiBLVW j4eebugke2eczE4tKXu uIx3gVDIjL07jhWZjJ9 2iy18byE0caVS0HCJlC EFVs02nsDM8puKgFyTt TJUfgdxsIJS5PL1bw80 vcQT4sQCusIHgGyMiB3 3fddYzcIEcg9QtrB9oS SSlAdUvjK2oFSVgcKGg cmVkLCBlbnRpcmVseSB hkUMtyYH3GBBehX4lOP EuICBccHJvdGVjdHtcZ whfmOU3IMzfAhqmpH2a dCBIWVBFUkxJTksgbmF yEK3ZNB9BEcQKZT61Vf TaJGU3BNtRL5VClLZ6O qj2NDa5gSzvAxiqphGj wXEiWnDNfG2AHEqcFkg bnIR3RTtwGsidhH0ndD BIWVBFUkxJTksgbmFtZ N9QAS2RSL7LbMQgTDG8 iAQ9RSZDMpaocHT9oCI 3qQ79OOAxXIJzgXOfCI snL532AUEyWQgdRTk6e mNoXGZzMjAgDQpccGxh kB1tMLMrS47uw1ZAp1X kYWRcBLqre5bnzPskv0 VjdGVuZFxwYXJccGFyZ WaqnN1gJvTwt4evqLf4 MHqbmcP6GGRfef4OSrx yOjhamVfnu6DpiINtMP lkIDUxMDAyIFxcZGIgI M1USfEdQZYrHTRzIpty UYb0PEl5UN2TSrDgHRC wLVgmEwRpMHVgGLd7VY frJA4OVZqxMBH5KXWaO VA0RHX9QMAuOTFjGwVs XGYgQXJpYWwgXFxmcyA xMCBcXGZiIFxcZmwgXF nhC49bYioktcSjVWL8K HBhciANClxwbGFpblxl cGljTmVzdERvYzEgDQp cbHRycGFyXGxpbjBccm luMCANClxsdHJjaFxiX FBjTsGiW00cb48xGEWv Q2Tkx1ktqW2iISopUn5 6sW6lRAIwI6DjiXHmnM emu3yxRFRro6fyrfQxx 6h1bTLhvIT9MrosLELd B65xr0swlGSnj0QfIJX ulS8cTQKbIrNjgDtup6 MaCNSaYIioZA13cbSoS U9rtR8rGTycYNIxbxKd DzPqbCBgQqAgWQ31TUS tLiAgRmlsdGVyZWQsIG ZddUwgWWz6VGI3Yb9jk HZeIRQrnfZKRZ2rCBws ow70JSC0s9eunZHdVBe tVsklzXSwnqS0VQeTFQ IJWGpIQpHcFU1kFFuLP ktCRUdJTnwyMTAxNnwx vTQDQUJ5KRnmuOxdlAz 6l5jozTCpc6e8AWiaHU Y1iNmNs2ujjDMcODhnT fqvhCJgtzN0EFgWWMJZ VNbONsQzIJ5iIGwMVdm RUyQ8OzUnUSD1HSkBL0 FHgCC9Xot5MRv1iTenD vmzgvBgeWViSvGPwP5z gIbbhZ0xuLUnZ8yaKwS yMCANClxwbGFpblxlcG ljTmVzdERvYzBccGxha G04RQPtaDMcOIX5LN1u XHBhclxwYXJkXHNsLTE 2EXfcgK71zZJdRILoUK CvgSFhzG1OAYFbSDV4A MazfX35gOInBX0VPKBl WHD0VKXahRLwVRA6UB5 kaE7EeE== Biomarker Block(s) (test a0gvaYInCLPtzZW6PiV code = 9841) gKCBqr2ymg8BjkTFbhZ RxKUbkjCCqkqXtvi23e SA3mL67LS9qQOYzGfO0 ZLOnssK5Sjp8MJHzTAJ jxRRcJ716u4cve4lbmg NdfBX3cTppLVFhAOCqL MwuERDtXoQcBb1VNDZp cn0= Disclaimer (test code = w6qmyOOoHZSlhFHbKmA 9844) lBOAmISGff2ccIPDavZ FuZzEwMzNcZnRuYmpcd LOfDSNwAzPho4cxv535 dKWmo6mfSYQiGsR0xWU qOCFnyCSbF494DVXwNO pag7ozh7OrABTcaFTia 2I3TKBUxvfprVo7oJnf Z53ev4U6KwbnR2hyPDA zHDVcY9IvEQ7tRRQsNh h7VSE8FWW3UYPoYHKtH 8FhXF7zCCVbcZQpQSn5 y2wipBmtNTGkXPK1r0n iEYscdhGlGH2vjp0npD p4g2ipslNcYKAnMCPmm WTEWIKnM1SjnDvdZb0a bKj2rUbbExcxLNR9Dcz 6CR1jdv70vtx6aPjrKU OslxqhOeT0LFmbOOQfb hpbODm6GCjfVVVxeMY6 IJYsgEIyA0JxKOOiDI9 dchk0KXE3KCblLLDdEp A7MPYlkWEyGESauBaaL Ritc160ZJY8ZmXhUW6s C9Xup3R6iL0btSWkKAL siLUeHjIwZRXmkg5chF CfVJmrm9NrVII1wpC4y LSzdEHxJJSvBU20Eqki m5WwHbqgPZX4NCYdvpQ ak3Veg9dfDeDtsvDxL4 ukS6BhPFHrRGLmXCRgI jBctwKwb5Tyx0MbxHFj oDf8u0mlHUEdDSKtwLs gp4owFYI7YIRmB0C6dW Mqz6qzYYybWJQvgZP8o oJ1CHHxtFXxQ3JugG2u BXVaSW2gixf0l2ddQSP 7BIceNSWdFjQ4azW3CL BcaGVhZGVyeTcyMFxmb 426YRY4IpAxKGNfz5Kp Y3DiyVclI92puYaeG97 yIWOjvHpqdC8xjNwjfQ 5cZjBcZnMyNFxxbFxwb EPmyemwPHcrgdR7LLjw dxygVTErDRnrZ4upDxZ qBLBhwEauHRstv8YvGN RwLIBzTpmjcrP7MFXAm 86qCCUfz3YwOCEctH9d nPTzCMekitHovNG9NYu hdmUgYmVlbiBkZXZlbG 0pXREgWW5tUROmzmQcm i5ajxKmLDNnEOXuK2Kt cmlzdGljcyBkZXRlcm1 qmdLeWBX4WVICBI0URH KuRVXcb12mXGVzbFjav U2znNVgsvRyWUBos5Hx gT8ppHFIWFWnY1ssHX2 rTEyek9QhjAPviGDsvI V8ZVMyk6CgAvDpdqGsm PAuvVRnS7PpoUreY7kn JVPxQCBgutArnRBxf5X vQJGklXW2eITrYX2GKj TLx41gVJKhTWOEhxGhT ESebDqvkYN9btE5sF0p LiBJZiBhcHBsaWNhYmx sDAAac910gw0jgwU8ZY IwNICvqpjun3IqCHKxU HPfmB59XISgNCBfqx1f rejxfSCnhvDoI1Opvnj 6hU9gIKAxJUtjRGTkEC ZzMjJcbGFuZzEwMzNca GljaFxmMVxkYmNoXGYx WXztL5elVaKhYdCkZkw wYXJ9 MD ValdiviaTestosterone [id number] 16:56:47 Test Item Value Reference Range Interpretation Comments Testoster Tot (test code 9 ng/dL 193-740 L Ref erence Ranges: = 7607) Male: Age 20 - 49 249 - 836 Age >=50 193 - 740 Femal e: Age 20 - 49 8 - 48 Age >=50 3 - 41 Lab Interpretation (test Abnormal code = 43647-9) MD ValdiviaProstate Specific Antigen (PSA) - [id number] 16:37:56 Test Item Value Reference Range Interpretation Comments PSA (test code = 1.1 ng/mL 0.0-4.0 Results gre ater than 9243) 4519 ng/mL may not be reliable due to matrix effect with ext ended dilution as it exceeds the manufacture r's recommended simon it. Caution should be exercised when interpreting michael ch values and done in conjunction wit h clinical context.Testing Performed at [facility], [address], [place] [address] PSA Indication (test Diagnostic code = 9395) MD ValdiviaGlucose, Bolisl0426-29-61 16:26:34 Test Item Value Reference Range Interpretation Comments Glucose Random (test 108 mg/dL 70-199 Effecti ve 10/08/15, the code = 9360) glucose referen ce intervals have been updated based o n [employer] [employer] narda delines (Standards of [...] risk for diabetes Testin g Performed at [facility], [address], [place] [address] MD ValdiviaCarbon Dioxide [id number] 16:26:32 Test Item Value Reference Range Interpretation Comments CO2 (test code = 26 See_Comment Testing Per formed at [facility] 5228) [facility], [address], [place] [address] [Automated mess age] The system which ge nerated this result transmit esteban reference range : 22 - 29 mEq/L. The refe rence range was not used to interpret this result as normal/abnormal . MD ValdiviaAnion [id number] 16:26:30 Test Item Value Reference Range Interpretation Comments Anion Gap (test code 10 See_Comment Testing Performed at [facility] = 5824) [facility], [address], [place] [address] [Automated mess age] The system which ge nerated this result transmit esteban reference range : 4 - 14 mEq/L. The refe rence range was not used to interpret this result as normal/abnormal . MD ValdiviaChloride [id number] 16:26:28 Test Item Value Reference Range Interpretation Comments Chloride (test code = 106 See_Comment Testin g Performed at [facility] 9892) [facility], [address], [place] [address] [Automated mess age] The system which ge nerated this result tra nsmitted reference range : 98 - 107 mEq/L. The refe rence range was not u sed to interpret this result as normal/abnormal . MD ValdiviaFvrnucnuBjaubmvqi6442-21-21 16:26:27 Test Item Value Reference Range Interpretation Comments Potassium Lvl (test 4.5 See_Comment Testing Performed at [facility] code = 6854) [facility], [address], [place] [address] [Automated mess age] The system which ge nerated this result tra nsmitted reference range : 3.5 - 5.1 mEq/L. The reference range was not u sed to interpret this result as normal/abnormal . MD ValdiviaSodium [id number] 16:26:26 Test Item Value Reference Range Interpretation Comments Sodium Lvl (test code 142 See_Comment Testin g Performed at [facility] = 0648) Lab [facility], [address], [place] [address] [Automated mess age] The system which ge nerated this result tra nsmitted reference range : 136 - 145 mEq/L. The refe rence range was not used to interpret this result as normal/abnormal . MD ValdiviaCOVID-19 (SARS-CoV-2) PCR-Asymptomatic [id number] 22:02:46 Test Item Value Reference Range Interpretation Comments COVID19 (SARS Not Detected Not Detected This test is a CoV-2) Result qualitative (test code = reverse-transcr iptase 73206-7) polymerase katerina n reaction (RT-PC R) developed for t Vivian WALTER 680 0 system and inte nded [...] were verified by the Microbiology Laboratory at [facility], CLIA Accreditation # : [id number] and CAP Accreditation # : [id number]. Result s must be interpreted within the [...] te sting if clinically indicated. COVID19 SARS BOMB TECHNICIAN Swab Source (test code = 03612) COVID19 SARS Pre-Out of OR Indication (test Procedure code = 31580) MD ValdiviaVitamin D [id number] 17:26:43 Test Item Value Reference Range Interpretation Comments Vitamin D 25 OH (test 56 ng/mL 30-100 Refere nce Range: code = 8018) Deficiency: <10 ng/mLInsuff iciency: 10-29 ng/mLSufficienc y: 30-100 ng/mLPotential toxicity: >10 0 ng/mL MD Ashton [id number] 13:40:19 Test Item Value Reference Range Interpretation Comments CEA (test code = 2.6 ng/mL See_Comment Reference Fer jones:Smoker 5203) 0.0 - 5.5 Te sting Performed at [facility], [address], [place] [address] [Automated mess age] The system which ge nerated this result tra nsmitted reference range : <=3.8. The reference fer barragan was not used to int erpret this result as normal/abnormal . MD ValdiviaSURGICAL PATHOLOGY [id number] 16:36:00 Test Item Value Reference Range Interpretation Comments Case Report (test code Surgical Pathology ? ? = [id number]) ?Case: [id number] ? Authorizing Provider: ?Pako Lopez MD ?Collected: ? 09/14/2019 1052 ?Ordering Location: ? ? [facility], Clear Received: ?09/14/2019 1413 ? [place] ?Pathologist: ? Eyzaguirre, Mitch J, MD ?Specimens: ? A) - PROSTATE, Left [...] Right mid base ? Final Diagnosis (test n8qduLAbZITad1bxPFHstO code = 6570798754) FuZzEwMzNcZnRuYmpcdWMx XXzqhdZaROpbk4PeT9TwTn AwMFxhbnNpXGRlZmxhbmcx SCHcJBN8fiIqNXGcYXfrOO OrGEisCx7qtIFlpLlvQwAg VLUjp9meedZPtskapJm3t2 ayRDPeSoE6aQDvPBjmN4rr toRsqMToKQDiWYi9aZ55SF RizF2xqLIwILrwwrCmEsS3 WUvzQOTcXrH8LDOvbBDyZV GvF0qtLOBnIZojAUNrFWkx uDKkYKE3jXssp6X3hEMusS LliQzfTyVcNlZsNXCRn1Ba PRs9qMylM6ChUVNqPsN8uG QgUGFyYWdyYXBoIEZvbnQ7 zB17POusmlR3sVYdh3Blr9 2zv713jS4opCBeQYK6TPAq EVLopKQfWOWcMHL7GNXpmO AsR9hpZBhkSG4kschaALO6 MFxtYXJndDcyMFxtYXJnYj QkkJMlYTUpwNldIStfr595 QQT1MvZqJH7nA6Ple8D5pO 9maXRcZGVmdGFiNzIwXGZv tt4xsVMfNSezo6LxHGF0tk L0lAJhpVKxZTBsEH51Nuwe i6LsNliaKDI1ZGGspnOmw4 Xnk1cxPdGdjaRhC9pwG1Hb ZHJoZWFkXHBnYnJkcmZvb3 Vpk7BtjFBhqBf8l7vhPJDm QXBtyMziu7toBMT9VASvO6 F2wLBib7fqQQorPVZbvWP9 njBdGSVjbCPxB1FfvQ0lQN gqNC3ooue0d0tsOeKvXW6g zjlbc7tkXTnrPGIvLZB3Cs WcKQYex5YotkbxUjQra6Ei gGLcGXfyU95oe941XOUiko FrA0xkbGDcalcjdJZupcoa ARsmwdH2GSi3lgZxtttefR xwbGFpblxmMVxmczIwXGxh wtaoBBGgWLmxD9lxLfEoUH LcxYzqIEuxn4HpGCDrKWJm XgCjnGJvHQJrEEPYB8GIJZ MBDBpVBV8TKUMRAUCFXQrI VEVSQUwgQVBFWCwgTkVFRE eFYPJEG3HJUUknqWpwoJ3b JeAyXoBdAqktSH3tOCZqA8 porUQxMYMyUMEdL4vlKaVq jM3erMzoWMvnPpXyNmVjIb ywUXOtkNmkaX5rMbMhKeVp BIxuSQ8tAQAxT1jtmIFwHJ HiVIZcY0pxHwQlcY1spAyu MVxmczIwICAgICAgLSBQUk 1QEBWDABKuCSABHq5COKND SJ3AJEIsKBaBNRNNK92uO7 NPUkUgNyAoNCszKVxwbGFp blxmMVxmczIyXGxhbmcxMD CkYPpzE0vhUoFxWNJppZut QHbkr6XfUJFmNXEzOuwxsi IyXHBhclxwbGFpblxmMVxm czIwXGxhbmcxMDMzXGhpY2 qtJqYrDOKmoOobSCbeh9Xd XGYxXGZzMjAgICAgICAtIE fKPBLGKWnBZ6OZABTmuHwn vB2zKbRlEuNlYxurQU3oTV DiS6zznKTwUFBaNVTzG9xn AbUgcB4wkZbsQRraReWhOk MaHghvOYKkqJiyxK8iDqFk OlDkSVynAT3kETLkR3lymB PdYEHvDZOlN9wqNnHxuO1m aFxmMVxmczIwICAgICAgLS TRHTFCQW1UZTwCNB8GBVpD FWUND22pTMYSOZPSQsS9Fa D1HMGuQEFhBNehGXCsFEAq MjJcbGFuZzEwMzNcaGljaF jrWWgtLuBdHSJwPFdkN0bo KwVnP5AaWOIgMiUwjDFqIN BsYWluXGYxXGZzMjBcbGFu ZzEwMzNcaGljaFxmMVxkYm XaJYYmAVugS5vwImEuThVk KKTgEOIoSX8qQBNZY0RoEC 6WL8xZLMVoZIUIX9XSMILR GCK7GKWwZ0HwLEsYIICPS8 YLDWOFAUWJII1QWNrkjRWq blxmMVxmczIyXGxhbmcxMD PjQScnM7ufBzDgKFUvnWyj NWjtj9GuTACaLGYnRbbbds IyXHBhclxwbGFpblxmMVxm czIwXGxhbmcxMDMzXGhpY2 jpDpBjMFGivXcbZZtpi6Lz XGYxXGZzMjAgICAgICAtIF RPVEFMIExJTkVBUiBNSUxM RT4EQOVGPwEASeCRCOIMLL ExA40TMYCBUDGTAKN5UBNj FL2JMKQeXJimWKEeTKXaIs JcbGFuZzEwMzNcaGljaFxm YAdmOlNkKHScYJmoF3maJa NxL3JkKBDeGdEqfDHuELTj YWluXGYxXGZzMjBcbGFuZz EwMzNcaGljaFxmMVxkYmNo CHZwAXujY0fqPmUnAxJyYT TxDIRgKW0nTJ1OYRpjBYbJ NOYLAF9LQRgKVCNLOIRIUK 4PQZGTEvUIVq5NRBpmVZOL TVxwbGFpblxmMVxmczIyXG vnocvxTABxGZtpA3ioScSm LXJihVhaKXizb4UjWJPsIR NmMlxmczIyXHBhclxwbGFp blxmMVxmczIwXGxhbmcxMD JqNMpqK2tbJiHfHOTxxZhl YDqgp4SiQBWtJYPcHkBvCD AgICAtIFBFUklORVVSQUwg PF9KXOMQV49jUa5LSThQTU 8JONDFBBWfuBhhsC9xDgIo HeVbCntjMT1gHUFhS8dwtG QgOALtNZXrC3ziReHybT3q aFxmMVxjZjJcZnMyMlxwYX PePaobImOhmHqwkW7cDrVl ZnMyNFxwbGFpblxmMVxmcz CeXMsttlzdVJLxXRmcC3di TiKfSLManOudEDvtb1VhRC KnKJKyFbEuxYM5KQYtR1Ov XHBsYWluXGYxXGZzMjJcbG FuZzEwMzNcaGljaFxmMVxk NpOpJCVwNAwwL2kzXrFgX6 YyXGZzMjJccGFyXGZpMFxw zMFxpozfODziyqB4KHPqKK luXGYxXGZzMjBcbGFuZzEw MzNcaGljaFxmMVxkYmNoXG RuLSjoP7xgLeJlMdEaYVGM DbUQLq4CDUALUNVHCYGTFL bmZHOCHDPXLTRIVoVAEX6I GAphVzVOYHiRUKTLX3KPLV nshGzbiU2dOrEfGlPuPspp DJ8tMJKqA5jhuWNdJSSwNR DsP2vmOkPlqO2apRndBOhv ZjJcZnMyMlxwYXJcZmkyNz GadZadwM4jQtJbNbReUKzm bGFpblxmMVxmczIwXGxhbm rpKELjRNiqL0qkLkAkSRFt pIamEGhhj6VvBPYgCSAqEz GiLCKWVc7IVCOXVAKtKJWU Fi5OTVTBCP6SJIWaZAiQFL HMV95jJ6OLBiIdBGUbWGsa LAsvbSuqiT5cQtVuIzVbHy rvXU5uZHXoD6bzfLJfCQHs MHWqN3cgPpVjcB2saBdaZW xjZjJcZnMyMlxwYXJccGxh xV2nEoAjSsWmABerPD0oRX SlJ9thcTQzDKTaSHLaM4iv AmBpnS4rmSraPMskbmWvTJ 6cI8ZGLSTyE1UPYTJjMWeo bGFpblxmMVxmczIyXGxhbm lnUJSrJWvxK9gjGqXcMBCi xVzhSLeqk5YpOKLfCWZxXv xmczIyXHBhclxwbGFpblxm MVxmczIwXGxhbmcxMDMzXG pbF8vkFyDhIJKamEmcLEzf d8AdUMClYPGmMoRjOKRXBv TJJJUYD4YULYWFBEMNPQ1J SLBhXKDEZ8BXLXobwCJkbc xmMVxmczIyXGxhbmcxMDMz OKacJ4enAwZlDQLjaBrqUT qvh4FnXRUwHVIuMqiunuFa XHBhclxwbGFpblxmMVxmcz VoRJhtqnshNVHiRVacF5um LeZoGKMkrIgrAXrql4ZtYB YtEWBrRkDqRFFUAI1PXgYM TlZPTFZFUyAxIENPUkUgQU 8PJKf0XLXoT5OtXGsRYJLD E1WYFAGHREWQHZ8QZSkjfY FpblxmMVxmczIyXGxhbmcx CNOfPNqvG0siCxDwIMUmxE umUTkiy1FhNXJvECXeEhrf czIyXHBhclxwbGFpblxmMV xmczIwXGxhbmcxMDMzXGhp Q2drIgQzGLOkkQqtRJkjh6 XyBRFsZXEyFeYePULCF2HZ MDNMSV4ODKLfEHaLQAmJDA WNGhEoL8UlDdBGZRcHOUVG WiGhJCuQX6JYXcKpASHTOL xwbGFpblxmMVxmczIyXGxh jlftHBVlMSntL9pyPiLxUQ YdmVqyECzqi2BvQUNsAXUy MlxmczIyXHBhclxwbGFpbl xmMVxmczIwXGxhbmcxMDMz YGvkK9sgGfLlFGQhiZzfRT ayq0AqDXGoFPGrWsGcIXDV Q2IYBKQCCI4URFWuRQsJLA hYNOLIQpKmV8FrK8UEX5nG Z73FYbAxPaTGHWrrrSZvzh xmMVxmczIyXGxhbmcxMDMz LOngD7zhKyOiGSLxzLbzXQ buu7UuIDYtWWQlElwlaxGy XHBhclxwbGFpblxmMVxmcz OwBTkxgotcAZRaJIcwE2gm CoThYRUehVvyLVhwg7KxTL YxXGZzMjAgLSBQRVJJTkVV BbGICGcLCfJBJM9SCZ2WST BJREVOVElGSUVEXHBhclxw YXJcZmkwXHBsYWluXGYwXG QbAmYukKhqtA2xBaXaHcNl QUwhEA2nBURlX7itzIGiPO LaMDAxT6epTwWtqG4rdKwz BAxtydWiAUPfCKKLB1VONS BYTWfZDM1ZFIFFKBUYQHlF VEVSQUwgQkFTRSwgTkVFRE iBXKMIH0ZKGSbfrQanjK4u ReTyClFeKaqxXP8gBMQiP6 uqpEPpHBTjFDPlT0ctRlQy kA9qaJdnYIhwYmCqLdOvLu kgTOCxGvyzOgPvrVztvF6p ZjBcZnMyNFxwbGFpblxmMV xmczIwXGxhbmcxMDMzXGhp C3fqDcLwSKWliKgzYBydo3 EsYNPxCWFmVeDqTAFQVh3V LFNXTJJiLPMPSj0CZGRAOB 1AWXTqPFeRNJBML15zP5LH UkUgOSAoNCsgNSlccGxhaW 8rIuFnOrXhLmweYJ5fNDLj N5lckDHvHBCfLRKpN5gsLt ZlbS4ppOcuNNvcPfHpYiGa DxayUPWrzBjymH2lYgAlUa WeSFvaDZ8mGKIsF2xhoBUt UCDuBGRlP5ztPaLycD4rdA feRTnzieRgZX7uB1FALXZu R8GCZQKaPSeysTNlkrdwQM xmczIyXGxhbmcxMDMzXGhp P1syOoBfNIYjoHoyRUtvw8 NoXGYxXGNmMlxmczIyXHBh clxwbGFpblxmMVxmczIwXG waybqiCVUpUZlyJ7foZfRi WKBnuPluRLmiy4SdZAMyPZ FgOyWpDTNGTP3KStBBKuNI OTACSbNtSDRJAdYlRV7JOP ZwLVXsN8LvLWuNAZKSY0XQ ODRNJOMFNK2YSVizdIEeqx xmMVxmczIyXGxhbmcxMDMz CXbbZ8voRwIpXTRrpSxeKP znd8LmDYOoFMXnFlnzlyWw XHBhclxwbGFpblxmMVxmcz RkTGzkbcusVSGjLSxwR2rb TnXjUVQxyVreNKlwc9FiTT KjTQDfBkLfWUCFZ2IIZFUG FT0ZAPInTHmQQWtRMQZLQy SiB4VyQuSJGRgFNAMZZcEl PYaRY1KEPvGjIFSUSPeedD FpblxmMVxmczIyXGxhbmcx PXVaDHegH1ebMiLpBQYnsV rrZFrdi4KrAMQhKTQnWzwj czIyXHBhclxwbGFpblxmMV xmczIwXGxhbmcxMDMzXGhp M8ifLrIdFDYblLczVYorr1 IhUERxQFDuIrBcKKEAU4IN WCVMFC5RHAPsACzUWOgUVZ REBtPnI0MlE7CNH2iUK50E EqL6JS1VZGZyruMbNLDWWi hUPSHFNWsvQW5QITXXP05i Fm4KZSlSYC2JGRCYBLPiwI cfgC6yGpFuDdGuQryhCY4w DILkY1nrmTUtUVGxUOHhM9 fzMrLcdB4cqOvoHJtsLdDn ZnMyMlxwYXJccGFyXGZpMF jgxKYtjgggWBbebqU0HLOz YWluXGYxXGZzMjBcbGFuZz EwMzNcaGljaFxmMVxkYmNo CSOrTSylB9jzXrSkPcXyUD QYJtRZJu0PFFHQAXGKXMOF RCwgTEVGVCBNSUQgQVBFWC zpQeNEOEaDPXQOP5DNOOvx eXeqkO3fQjIjXwJtSwyjAL 7yNMGeT5bqlRHcPMQlMKOw K3nkXgHmjA4ymSspGEqqWy JcZnMyMlxwYXJcZmkyNzBc pKthhH2pZzSkKdJoLFpfwD FpblxmMVxmczIwXGxhbmcx ZNJnZBvfB5idEjWrASDdmI qoHLcft3CaIJHmDNTyMeZq VMEDGM5MR05qKMNHK2MXEC kVBIYFO4DIXKYFLBJTWHKR Sd3GHZKaMS2EDMFTIGEZUN 9OXHBhclxwYXJcZmkwXHBs YWluXGYwXGZzMjRccGxhaW 9yCgAzGwTnUBfnQX8rWXOa X3krjVZcNVLgGDGfX1unVp WbtM1bwDzvFIbbkgDhRMAr TJCQG7GFENWUUAfSHL4FGN PJEZLAYV8QUNAJGLHhFU2F KLXKCYJROF1LC4b2UNDwJN luXGYxXGZzMjJcbGFuZzEw MzNcaGljaFxmMVxkYmNoXG KhPYcbU7vxJiKsU8CsGNSr MjJccGFyXGZpMjcwXHBsYW ohXSVlTSWtOrAlhWrzuD6k BjRuXwIvSXblZO2gECRkI2 rglLJoWCIbVOOaX2nvJuUb xG2wrKueJXwwlcAbBT3wVV CYY2CZXCtEIIFOHG4MI6CE M1tFO24SOGGFPOYXG83SQC VVW0EOLRpgEWTsKAReSNEm YWluXGYxXGZzMjJcbGFuZz EwMzNcaGljaFxmMVxkYmNo NTReOMmkE9lyWwUiK2BbQH ZzMjJccGFyXHBsYWluXGYx XGZzMjBcbGFuZzEwMzNcaG ljaFxmMVxkYmNoXGYxXGxv W0ffIeDtQkIxRWAmQQzVFQ UMVElYI9QPDZTubTljcQ8o YyIsPyWiOborCT1lPUHoJ3 pquIZoXSKjZEXiD0hdFrTu kW6cmBltWTgzIqNoWaFtKm iuOQWjiEvdeE0tLoGaYbDo FTfiTU2xJWDvE5uqmTJlBV LfWCZeM6drQoWxmA8plCnu ZBwikiIsEU1bJKGLP4XaVA 2XR2oYTGMsVLUBN9VTZYQF MPXpBZJhX8FxFJmYYBEEE6 UGLEAQZFCMDQ9DHOpeqOUu blxmMVxmczIyXGxhbmcxMD CrSTjwA4ikCiMbJKSduGpq FTwuk2RnXLDlVPRmAqsuob IyXHBhclxwbGFpblxmMVxm czIwXGxhbmcxMDMzXGhpY2 mfCpAhBFZkzYzsFKvmj3Di FVMxTTGkYnUzMJSFU9BINI PELK3XGQCtLXsQXJhGTEDS ByUaL9IuEqZUQTcZFHYDJn NtMEvJJ7DZEdGwBmOEKBxc bGFpblxmMVxmczIyXGxhbm jdWAMwPNdrR1dwZuLlYJPv sGxqWZbgc9FkOCLlTKLdTn xmczIyXHBhclxwbGFpblxm MVxmczIwXGxhbmcxMDMzXG ffT3diBbQyFTWwvMeoCYcm p7GfIAQsSWSgIzAfXSCEZ9 VMXTNRFJ4PRAEnIJxBWZzH WIVVPcKqR2KgW2FFQ5zMU5 3EAtIpAkVqUC7awOxzcR9z KxMjNoZyWaqfFB6tNTJjZ3 sjxQDgLHVqUBXtN6ldPdSw uT0yaUxdDFkdSfWgXqDeUv xtITXvuMcgoY2mEiJaWpMg MNapHD5yOBNtF3bebWCzBE MyGJFaK1jqAxYdcX0zdThi EVxlnjQwSN1dAIRQYU1ZXY OORUENCiNAN8aJUtJRS5Fm SURFTlRJRklFRFxwYXJccG FyXGZpMFxwbGFpblxmMFxm hbX2BTIeYGeyAUFaAZRqGj BcbGFuZzEwMzNcaGljaFxm GFfyRrPyKEKdAXhtQ1twPk WzNnIbCVVSDsLFYc3TMZQK RSBHTEFORCwgTEVGVCBNSU QgQkFTRSwgTkVFRExFIEJJ K9IYAVdomIulgM3vBnCyCv RrZrqoHW3kADWvX2bcbATc FMQeZCYcK0gjJaCixW9lrF xmMVxjZjJcZnMyMlxwYXJc cGFyZFxwbGFpblxmMFxmcz O5DKRxRYrzYEKtXELrUnEg bGFuZzEwMzNcaGljaFxmMV afJwFtAJFyWNhnL8ecKrYa DjKkIFTkBNMjVW7lYlUCNS hHQEYUN6IUHKSACdLUDYAW FIBuhCPsBXVjGuclMVj8oy BhclxxbFxwbGFpblxmMFxm lpM8IRXjLAirOAFnSZCtUj BcbGFuZzEwMzNcaGljaFxm MRylOhAcQPPmLJceH8gfHg FcZnMyMFxwYXJcZmkwXHBs YWluXGYwXGZzMjRccGxhaW 8cYlFqLiTmZHjmVQ2qJVGf Q0vxfEFlLVPbMSNlJ4xsQe UltG3vsZuqDMjmjzLyZPzn RPDBM7TOLLKEVLcJQS2YIZ BSSUdIVCBMQVRFUkFMIEFQ FXgtMR6AGCYMQZVFLQ5AF2 e7LNLmPRtkMMQaEIBbMpVs bGFuZzEwMzNcaGljaFxmMV iaBcLuOVVtJOqlU5moQoUm I2JkIMVsNiGqsVDkRWLzuj BdeLvftO1aFvFwLtBqGIdz bGFpblxmMVxmczIwXGxhbm nrNGCzKGefV3kcRyDpKEZb iTghDNmbf0KpAIJaAFAvMt AgICAgICAtIEJFTklHTiBQ Un7TUDIBRRVaJZxOE3HMRK mCEBfqX9aFJ07GFmEOZkRC KP2IADYUQ29rmSVwOWPtPg jsYEy8zxIbgkdpmCbvlNDy ytxyQRjzekR4ZMMpFCdxYS YxXGZzMjBcbGFuZzEwMzNc aGljaFxmMVxkYmNoXGYxXG sgN4yqWwStPxKjMHxmBBXq ZmkwXHBsYWluXGYwXGZzMj AweFyvyG0zGsHyKyYmTDzu KX4fDIJdE4gbqLZcUTLcQC CmB2uoOaMdsX3cqNiyKPup qaPnFQzuXKYEH1QJHQOPKV sNLT4YXGHMZMvWUCQEVSLO XiKDNY5LNOwnVmGASIkJEK BQV3LRWHndoDymdL5tVpAt DyIjVnsfGM5qDBTjY4gcvB MkEIEjONUfY2ciWhUqtM6s aFxmMVxjZjJcZnMyMlxwYX MiLnyxBhJhsPkuzZ0vYwDk ZnMyNFxwbGFpblxmMVxmcz AfPUfshfsdAVMmQIudL7up OzYfTWAzkJuaZYsfk8QzLW OyUFRqErUmMKSQCg5AMRPH YICjHCMNEx0HEHMCRD6OUG MsNDcYSCCLC46eA1GTTrXk HkUoCakvCeyehFvjhJ3lOf UpYpIfNilnZZ2vLTNrM8gg uWRrJKFlWHStA8zaGsExlS 9jaFxmMVxjZjJcZnMyMlxw XVPhxOgsgS5tWrMcTcRqHR qlGN6gLSUlX6bqrWKfCOEn VJRvL2njDjSbgD0drYikTY zazuMzJN0yZ0BRJWAfO9CV VVAgMVxwbGFpblxmMVxmcz OoTDjxarsuLEImJRysL4be AzOzGBOahEndSBvai5HwPF YxXGNmMlxmczIyXHBhclxw bGFpblxmMVxmczIwXGxhbm meJMLiOKgjK2ceWnYnVVKd pEjoUHvsy5IcJBUaGJHqGi IuMIBZUO1EWbKCOmSMLLJO MtYfTNKHDzWlJV2HLSmjSS SBZfHAMCFkYSkOF3ZLFCBW VQ2FMzEPFRNrNRueZJFdUB ZzMjJcbGFuZzEwMzNcaGlj aFxmMVxkYmNoXGYxXGxvY2 hfBwTuJ5SqUHSeTtYmmKQi XHBsYWluXGYxXGZzMjBcbG FuZzEwMzNcaGljaFxmMVxk RsSpWWQaUTzdL6ovAxFhUn MyMCAtIFRPVEFMIExJTkVB TrQQGRgKOD6NKVDEYfLOCf CGPAJAOCRfD43ZBIGDOAEF HTC8GIR7MN9FINOpHPdtBC YxXGZzMjJcbGFuZzEwMzNc aGljaFxmMVxkYmNoXGYxXG hvY0vhOfYjI1FiZGAvJaXr cGFyXHBsYWluXGYxXGZzMj BcbGFuZzEwMzNcaGljaFxm JTgfPmRvGYBxEThvO1xuXn FcZnMyMCAtIFRPVEFMIExJ WeKGRrNYOAwXPP5OMFUCId GYOqSFFUTHNA5NYVV3HHZy AF7vkCejfG9fEgJzAcFcPp fbSL3iGXTiG0lweDZcACAh WGSiT4viFrAkvA3qeXtjJX xjZjJcZnMyMlxwYXJccGxh uY0cVlPxIgZwAWafDR3fNZ ViY0ckoTVwHERcUWIgS1rm GoNblC9dfIftYMpmpnChMG 3bGSCHTB9QMPZKXIMPNaOH T5kARgHHM7HfMWWVQvZQPx lFRFxwYXJccGFyXGZpMFxw eYIluxgvBSuhnvN8XCFdSS luXGYxXGZzMjBcbGFuZzEw MzNcaGljaFxmMVxkYmNoXG DwYVsaL5twMdGnTvGjLCXF RbFPNo6SKYNZZTSHNKINNJ wgUklHSFQgTEFURVJBTCBC QVNFLCBORUVETEUgQklPUF NZOlxwbGFpblxmMVxmczIy BKednkdkBWCsTPkkF2vuTl SdLKBmoXnaIHdor9LzLKRb XGNmMlxmczIyXHBhclxwYX JkXHBsYWluXGYwXGZzMjRc fJduuO6fCyVoIkKoPMtbXT 8jFLOiK5xkgLZjMUIcFOOv C6ecHgMcdA1tvIarLRbvma YsNQCuDJWzAFVCBC1JS73i MOAXS5FUGUqRIRLJG0FHVV NHHZFUKNRVOs5MRQTgMP0L HFMXXRJOAH6KHPYpofazoE K6OEmyvLCzZAXfxQgpkPcq xB8nNfMjElHdDHibdBEzzw xmMVxmczIwXGxhbmcxMDMz DHkyL6efCeHiDXGtqNpxII sme6TaSONwJYSjIrVazPCo XGZpMFxwbGFpblxmMFxmcz E0YZIdOMoxFLNhJXUoHwFo bGFuZzEwMzNcaGljaFxmMV erJaBxSVMlFImtH1pxNaNr UyEiMWIKOnFMFq3LQVMZIV BHTEFORCwgUklHSFQgTUlE OCPPCLgtMN3CBGQXBNZRUO 1IA9t7XOCpXXxrKFAoINKu MjJcbGFuZzEwMzNcaGljaF poLZqzNnKbVJFaVJbsV4ly AdXkB1FtHWVdExMsbUDrVY ZpMjcwXHBsYWluXGYwXGZz FtMdgHtyrW8yWyZxYmHdPK wsWJ9eHBOuU9pvcAEqFIDo XXDjK6vyXlJaaE1zrIncZI rgupGvEQ2qWKPMP0UDDEwG ZSMFNV8SC2BXB8dLR21JRE TGFKNQS48ZFLAFS3YMQZAb KDMrIDMpXHBsYWluXGYxXG ZzMjJcbGFuZzEwMzNcaGlj aFxmMVxkYmNoXGYxXGxvY2 klDoLbL3HbKIYlGfUoqKDr XHBsYWluXGYxXGZzMjBcbG FuZzEwMzNcaGljaFxmMVxk DdZaNZIcTShtL1owOxLbVl PmETRuGSdTQQTWREuOP3TC ODKsjTbymE9zHwWdXiYkPf tqFP4bTRRfU6vfpJLgWBUq KRBdS5stNlPwlU3njWesIO xjZjJcZnMyMlxwYXJccGxh eF6nCbDeGkDtZZkuRS1fNU DcA3atxFXxOFOiNUBuD1xv TpJbgI2axQzqJJozxpNtQD 0kCMXHA8MgKM0SN5fIIBXk HAARJ4WXVMWYSQQ7IMOMXg AHDIOrSJuAC3PLEOJJXX4X TkVEXHBsYWluXGYxXGZzMj JcbGFuZzEwMzNcaGljaFxm UIufGcYkJXOjPJqxE5tpHp LxJ7TdUQKiDkRthNWjHHWx YWluXGYxXGZzMjBcbGFuZz EwMzNcaGljaFxmMVxkYmNo UDUrGHwxU6zqHaBpXiTxGB AtIFRPVEFMIExJTkVBUiBN WJhULF1QSPLFSlPUFxOVLL FAPEKtS47JUGJRKYWEMCB8 PXE1CE0FIRCcPGnsVPFmKU ZzMjJcbGFuZzEwMzNcaGlj aFxmMVxkYmNoXGYxXGxvY2 pzOxWpW9GqAOYcYxPwoZHc XHBsYWluXGYxXGZzMjBcbG FuZzEwMzNcaGljaFxmMVxk NkFpSUUbREsxB1hpYgIzPc MyMCAtIFRPVEFMIExJTkVB HfWFGZjSCC0CKHMPScVBVu QRMSDDQF7JDTO3MBKqWI0k uVptmV1yZeYwQrGnZbjtPW 5gWGXiM7vqgBBkPPSvWYVm S9znVxVxxX1bmZjwEJcvWq MeHkWvNcfeIZAyfFytfE1c MxMuFuWbTTkpUN1zDJOyG8 yrfWQuTMFgUGHaV9lhJyEn sH7mhUllQEtkxaOjTF8wNH CHFM2XNWXKFSSKQgXGT8sI TbQVX3AoVWGZWgVRHbiOMB xwYXJccGFyXGZpMFxwbGFp ctveHWdwfvH5BJQnVWknYY YxXGZzMjBcbGFuZzEwMzNc aGljaFxmMVxkYmNoXGYxXG gkY9ytLeNcFaEqSHBJFqNY Lp9JXNFQDLLEPUXTQVimUy vKURVyPZpWHP1SFNldHfYW XBgFIGLAK3OKHTtowBmafX 6cGqNvWtTgXstbBQ0bXPGd J1oamBMuTULhIAKgY9rjDf ZjbQ6zqVocIOxbJhLaRhPg MlxwYXJccGFyZFxwbGFpbl roUYatniX7DQHbYIqgECFa XGZzMjBcbGFuZzEwMzNcaG ljaFxmMVxkYmNoXGYxXGxv G8fwJkYoEjVzBBUmLYKkOT 4hXtALMLcTDCQNZ5IPZQIA UoPFVFYUJNRjPT3QZKMWIl 4WVMByCI4HPNQLMRLJXE7V XHBhclxwYXJcbHRycGFyXH FsXHBsYWluXGYwXGZzMjRc qUoyaO8qBmTmNpQlPYjgQX 2dNXBzK5kouTShNXVdUYRw M1frGgYiwU9sqYtuATjufx CgWEqzMTKNH9ANQKZSSQzL VY8GPYBHWRvWOSDGJURaLe VMWNicPoUSFZyHTSBZA4VK JNrroOrmmS1mRvZuZuPrDc olDO9oMFCuO9cktZOsZFNx BHHaX2uwXbSusC9niCgoRO xjZjJcZnMyMlxwYXJccGxh cG6jPbOgKeWbQBlpNS3wHQ EqJ9dbiRKgBPRxZONsQ1je AaQyvS2ywSunAAgszwKhGR ZhTZJjUMAWDu7ORVKRCYDc AAZQHd4DKNLBLM1JVMFaUW vPOKWUE78rD1FFRqEaGwCw VcweEfeijEnvhH4mOcFsOs OvDpzoTH4eNOTiE0ungAPs ELHoXTVkT6tiWzOkpD3gjF xmMVxjZjJcZnMyMlxwYXJc AvriWnRagZfkvZ8lWlCyJn MyNFxwbGFpblxmMVxmczIw TPodaoxrOVRaCWgsH6guLg SpJTMwmJneKAhhx4AjNNYj XGZzMjAgLSBHUkFERSBHUk 9VUCAxXHBsYWluXGYxXGZz MjJcbGFuZzEwMzNcaGljaF hgAYuxXlZbJTZmMKqpQ1em PlBbH9JwVFHgXdOygPIpBD BsYWluXGYxXGZzMjBcbGFu ZzEwMzNcaGljaFxmMVxkYm ZrPGXeQPqiD1vzAwCtSkUt MUPgLQDOXO0VQHmCJk8TEx UXLDSgE42RVJMSRxLtOYJd I8ZpPCjOWNZDU0ZOTIRHKU YBJW2HWNnsbJZjetpyNQbq czIyXGxhbmcxMDMzXGhpY2 oeHjWlRXVqeJlkQPqbd1Uu XGYxXGNmMlxmczIyXHBhcl xwbGFpblxmMVxmczIwXGxh ujjiTLOyXSmsB0qhQmBpVI MecPktBBgpp4FnHBFcALOb MpIsSDJGK4RTRPPLRA8SZG ZgNCpLCGdTTFVHQnTiW5Al TkVFRExFIENPUkUgVElTU1 VFOiAxMiBNTVxwbGFpblxm MVxmczIyXGxhbmcxMDMzXG kwG0dcXmFvRBLwzPhwEAtq l4VlDLZmGMRxLgzrmwBeLU BhclxwbGFpblxmMVxmczIw AUnhtejjWXIrNHsmC9unAh XxTLMctCjmFTifb5AhDNNp MATrLdViPQEAA7OSWGXTPC 5FQVIgTUlMTElNRVRFUlMg E3GsN0GVK3cNK68BWtJhYx VsUZ7fuXmifD3iKkGgVeXk CxkzOZ0qHGKgJ3fmvZXeWC RhKWYnV7pgDlEzkM6uxZfp MVxjZjJcZnMyMlxwYXJccG omtH8lDeLmUsXnNJjhUV3e GXJzH8nvzFZwNTDvVKBeE8 ooQqHnqD3nbTkpIGbpumMj IZ9aXODZTI1FIZJRNLBMTs KVX7kBCmRDY3JeRLTADyOA RklFRFxwYXJccGFyXHBsYW luXGYxXGZzMjJcbGFuZzEw MzNcaGljaFxmMVxkYmNoXG QlCZpoQ5zlDoPjF4WxYYMu KgOxVrNcoQSymCXyC3iieA juheuyRBPTOFOrRTyeRt0h PQKkWUK0NbMxJAMMJIZfLX luXGYxXGZzMjBcbGFuZzEw MzNcaGljaFxmMVxkYmNoXG SfMTvwI3qqVoMzEeDwMWKz NFxwbGFpblxmMVxmczIyXG ijxbpjNVIgGZuuC2nfFeVb HMBeoWhoBNqjv4IxYGCnLA ZjAmfhcuAjGIFvpr25FFG7 AzKhr5Y3KEIkBkGgAXAbXR 4gxDdlQCIjRY1lFBOcC3lx pQ3mpfa0JbFyBHTiHpP0UM FrxtT1Puk3FNQeOKtml8bb a4PtD6PsnSBndTr9z0raMB KvQsY8hGPoLCvaH7drmeAs wJOgSJRaWMw9qNynSdIoUX Pil5fvztJxXcIzYKSiVMEn HGEzxQflujl0cQ85DNOopL 5ztFZrGFeagvMuMyC0NOei VIMaOkF7PGEagDFhPAXtI8 xyZWQwXGdyZWVuMFxibHVl SRH3cJbfa7Z2cLGhjCBocV lqAuWwJuTkCISDg0IlKIl7 dIfhW7XcISZwDrO5vLKeVD OjUEcoGEChRMJvipY3dD30 FBfufiQ3yNOcu5Fcf23cc9 89vC4lrTVsWWE2RLNpQTCg rRYwAAIfSER1ETBuxTYpJ8 ojYBFpSK0oueixJWrbJXyp VIHquPY5RYVzsFAgL1SyHE AsZFldIVDjnvz4GkLlQi0d kICmtSnxYBpgh8fkf5pyfA ReVbc1INYnRdDsBpmkJHzp f5Krp0jaRCGhiu8cEHN7mK IkkWyth1S8gBEzONZbxJOv zoHfVMQrIbY2HTwwAT9vij 65ZKKtEPT2lb3cqQLbkGqe zwYtiHAkZNdvE5XlANTam9 31LTJeO5BdVXQnp8P8abCs NoIxKWXbsCA6wsH3DIOxHZ m9zUHggmM8qmYhrZNuP7fq rD9cLNFdIZ9pngndn3iaIU yoMCavOUHvtJZ8skA0CJLk mEMbX3BccZ3sJNWrBPryZQ Ndqfi5JlWwSl2duOUyfYsb MFxzYmtwYWdlXHBnbmNvbn RccGduZGVjXHBsYWluXHBs YWluXGYwXGZzMjRccWxccG wkeS1yIgYlHiJzODecFF2p BXStZ7zidRNfMVNsDYEvB2 klCmNfkH6lwCpzLWkjApPd ZnMyMFxwYXIgSSBoYXZlIH XjdoRcdgHofKcjfiE7dOP9 ZWQgYWxsIHNwZWNpbWVucy 2nuSkqBRLaXD2nEWVoefPz GEgmjDnnHKjqNSH0VSRdbR VudHMgbWFkZSBieSByZXNp MQRnnUEsBBIwxMuci0Bgj5 HflRS3xK5ys2fxh3VbTLRa vDL4JG66vxZ1jQ0jPOLoSN 1mIATxYH6epLOzxYMvPFVo k14voGmdgfZiUHSuswXnNG BsYWluXGYyXGZzMjhcbGFu ZzEwMzNcaGljaFxmMlxkYm DpKPIvOJmoC3qlDkJgQfFs RFnzBMO6wD== Clinical Information Left lateral apexLeft (test code = lateral midLeft [id number]) lateral base Left mid apexLeft mid midLeft mid base Right lateral apexRight lateral midRight lateral base Right mid apexRight mid midRight mid base Gross Description (test [id number] code = [id number]) ViDKKlz8vePYJneXWdHkFl MzNcZnRuYmpcdWMxXGRlZm Fnh0mmy968pNNoj2vaYPWd BxV4cSQcZWXmiIQdU541TA FcBSatw6fvw2MuVCKlpJGw i3F6IXMCtbbnvEm7m3dtTh StUtY2kBGuMLwgD1pbdiHp kMHoYCVsY0RjalCESAXqYm u1hOtzX94yc8M5PjqsE5qg ZWQwXGdyZWVuMFxibHVlMC N1RWHcDKA4FOvlbeNchhC2 TSaleDXaNmU6LCy3q4hbdK axZEKkAOM6q7qvQBqkynAk YX8xin1qrRu9v3bukgKmZT SxNTMoaSYOIGIbS8FukUvy Af7jdXh4tIiyLppfOAU4Ke i7SU8whr71unm2jNnvOFGa ihnlKwX5UOejYLHnpxanGP x2PZpiYLFhwHEdXYEkjBTy I1DhXJfhWP0tluu6WuUrHQ 6towruRZjgXAJpKXJ9JyXv OXGjc8OpxvztWtEgic1czp 03SPZ4c7XfvCvmCGX1IVG4 LtOnJa1rkZGkSVSsQH6fEd KwqXXrOTMufu66nUglKNku qwUalV4tWkOfUNOhmFYpLD CtHH7bcKNcAIYbyL6dokjg XHBnYnJkcmhlYWRccGdicm ImNq6wpTlsJWO1ONasG9sk tV7hCdU1VOtqP2qcdZ1yDB g5VEvnlHA0MJKmqD5dNY5h qmthz2adKHG7EKzaJWNmpt M3kdMlJKRkhELpP7KdiU92 RbDceEXiV3FsiL9oCFghUH Litub2YaYlMu5jyIXhlNI2 MFxzYmtwYWdlXHBnbmNvbn RccGduZGVjXHBsYWluXHBs UPnyKNLxWOKdRhQtv5QpEF Evg3rcAcFzw0sdcBn0MPzu qVjjuRUwjsvpHJmbhsW2AH BsYWluXGYxXGZzMjBcbGFu ZzEwMzNcaGljaFxmMVxkYm NlPMIuMTaaI4csRcEsZyCs LFNQhOOfvO8ohwLLTZerFQ PvV0IgqxMbZBcbPUEyvt0u mBecDBcaHjHbBDGgd0u2cV A9rHNgdOT0xSRxbRzyCA3h nESvCDKBAA43rIPivraoOk ozQvAosLZ2VUQqgTVezYA7 ToUzawCiB33ue5fanYTbn6 IxQBCtmM6ldHJotDKjZOhz QLucQ79iDHNlVM29IAndQD 7pXPgfEA9tNWNxBAZ3xBen aCBpcyBlbnRpcmVseSBpbm tlZCBibHVlIGFuZCBzdWJt cRK9WQNliA2jcE79meWtut UTBG2trMEuSLUiOTApgGFb CXBxhQQcutLuBWu4VTDhbV 6xFh4hiVXriL9ndDFpPGbx FSM9dIFaHUXjTOBaREQxHA 53X8EsfdWlHXjjYSlqocEm YmVyLCAibGVmdCBsYXRlcm SkCX1kZIJoAH0bWWGrkeGg j7RoGA4aRMBbb4upW5atWU Gbnn1tmtM7ECMequFgXNRw UHJ5TTOrWO6dLzMpM87fXI doaWNoIGlzIGVudGlyZWx5 IJtmw5QkNENonVOpNG1qEP O8Xc3gtQBzPWZbbuW5j2Zp JRreEXOiCprqMFRzD1ExT6 fwNG7oVdGscfUeWRQmuBVg LYNilxQcu5PuGVruqfTrRF JlbGVkIHdpdGggdGhlIHBh bLsvcjYumbFiHP9wRKKZTC IpoW7lXGYuCPQqTEO6AIgr yCPdKBikQgLyWJUiDB4pEK WpaeEul0UdXI6lENPwe9em C8shIWYvee3ntuE7JBEtgi YjMORhPlU9GLCvWXY6CESt TICqxUrno4vuV8fucTVlUK 18nHIzcIsjnM2sWGYsAtn9 DEYqbbVci6SeiRi4aEDbMA ioPJIthU2seB3aQfPdBJCh vbVOiCPgkB9sfyGIYAreNB StV4ByhdGrFBudSFUbph7p gLneHNapPrZrJPQfq4a5pP N6mAIvdHG3iPPtpZmoXY9u iQDyVMLBWL88sHDaordkOb xlZnQgbWlkIGFwZXgiIGFu FOVxj53hbYC8kgHxNkOyYS TydkqcVZY4MM7mS8YpzKPi s1IeGBmwZkJoeZAlHbKmvB GaVmIqC08zRUsnnMAdYPmi EBMniBvmDFq2VMwdr5YlGJ HglRXwYU2zUTQ5Lg5ugBLf FUIscyI3i0WuWVrpGJVvRy huESZvO8BdL4dpCD8gEWOd cyByZWNlaXZlZCBpbiBmb3 JtYWxpbiBsYWJlbGVkIHdp dGggdGhlIHBhdGllbnQncy DzHW2yNCNFGDFoiR2bLTSw OEKbHMP2MK5lJNImvNAnMV BjZJTfb58jaYJ0idCqYwQz ZIDnqiwlHHY3MP3uO4RubS Zbd9IxEJoaHuSpeFVdKgAu dGMzIhGtW73fIMajdGMxGX ihMNOygGuiVTm5FLkme7Hv MLFagWZyCY4wNVU1Cx9uqO RoGPMscqM9q3MiNUvwYLYt TxsiTJZcK4GvS0blYL5mKo BpcyByZWNlaXZlZCBpbiBm b8FuIVclzjYgZGAdbVTiQH dpdGggdGhlIHBhdGllbnQn yoRwRE8oRKVHCCKisF5kQD QcUIStUVR1AK2hOKThMIUr PrRpzyMyK07zu3rbmYYiy0 XxYOPdnL9nlESbdJSbCHlr XAnfU94zNVReUG22JTgsZK 7gERhjZO8rLSAnRGJ0nLuy aCBpcyBlbnRpcmVseSBpbm tlZCBibHVlIGFuZCBzdWJt uNM0MVGezQ8bzI39pyXluk DTWG3mmYCyWLKvMSWewWUc IAplgBSkhkJiVWb8SRXjmE 3xCk9eoHTqvN0trZZpHRsy GVY2rOOzIYCwQEYaJDHzMQ 66O7QsoeDxTZesEGhflnBx LzCwDUKcsyrawUBcdVR7YK UhzZQktNO4CoQbxiNrQ95v y1logZWzh6IeVKMlpE2gaK RdlOEsZHduDMufP68eLWPa Qz1zCSgoKL0eJLxwHJ7aHJ MkVCO6fLognXHnxkSvydJc cmVseSBpbmtlZCBibHVlIG XuWSEfgUYqjZF1EZRujS6e rO24hmXibpJAVN4zgKJxZH NwZWNpbWVuIEggaXMgcmVj BLm1DQNsxF6hId7etBNkgG 4hzGYmSDciXOV7iBWpZMAt AECzRBWiMG26O7HrubVkHZ wgVUggbnVtYmVyLCAicmln jBJuiMR4JHWwuLLoxFQnUE SvYLJyx80ecQP8raAxGpTf SALiveqiFJK3CT9zX1LbzK Svc3UtEUxeRjsniSFxXzZp sDXrXuVnW67dYUgrbKFrJY fsFQFchFznQTj5FTvyu5Gy FCMzmIUcAM3jDET8Ek1nyE CwDDMmorQ4b6LyIBbqJBoi HfnuJEIeM7GkN4kaMX2cAR BpcyByZWNlaXZlZCBpbiBm m9IuJNprywRhUUIrnGUiWL dpdGggdGhlIHBhdGllbnQn knJeWB3tDJBDRBUosD4vGK IsICJyaWdodCBsYXRlcmFs ACRxz6AiQKZjSSYsz94qrN C4ypBaAiKaEMWeefkcUAG6 ME2tW1PrfHPlv2UvKCwxSk satDSdUaDufCKzNwHeB22l IHdoaWNoIGlzIGVudGlyZW q7DHzxk7OwMDQqeTPxCE2z HJG4Zf7lpPWaQLQcspK1y3 GrOMujIWevVwqgPHDbJ5Zj S7hrGJ8uBeNdfwJaMUKbeE ZoCOZtedWeg9BfRCfyitHe YWJlbGVkIHdpdGggdGhlIH KmfOaoefBtpaYcTU3dKBOJ MUggbnVtYmVyLCAicmlnaH QgbWlkIGFwZXgiIGFuZCBj q99zxEP9mnHbFlNkWKXdoe psWIE6XC1uB8XabRUgu7Pq ICgxLjcgeCAwLjEgeCAwLj TxV36pKSbksLZfVHuaUJXz vTljKQh5NWckl5EcLKLgnU GpID1pXWK3Vf2mxMYvJZQy fkH0b2QaMUqvMPruUlzvDW FeR9SnA7djFH0yHkEzcpNm IUHdpIRpVKTwtrPzq5CeGX xpbiBsYWJlbGVkIHdpdGgg dGhlIHBhdGllbnQncyBuYW 5qRPIETBQysU3dFRDaZEDm aWdodCBtaWQgbWlkIiBhbm YcV92zd8cvvOFza5KqBCHz oT3wcUTtsUNyUYqmKIflC0 4gGQQeYw1dHFteEV0lOPpf OM4mKENpQRC6fXwpcEPxhp BlbnRpcmVseSBpbmtlZCBi oMRiCJSeWMUvlBIgdXN7RJ UayN7ueT99pwGfrrYLZE7a cGFyIFNwZWNpbWVuIEwgaX CppqUwCIn7YUSoyC0zGk1c sSGszE6lsIAlFXmtNNT8zA RpFOSuUKUoTZOzYU15Z6Ln bmFtZSwgVUggbnVtYmVyLC HjbtzfhWKevTrfOAFbf3Qr BXUlDSWvn79xyRW7mwCzJu MhKAZswbioUCL1JZ2pE7Ha vKCep1IiRGvyQiEthEHhAp IcpXKrGyZcC25wMRafkVKv NNykVYKapOgdYMh5WGxbn8 WpJUJyqSVtPJ5eAVR6Mo8i tJKpAPWfrgV7b5LeUHthSB wxLlxwYXJccGFyZFxwbGFp ubtbTJxhtlD6RQAcYAuqDZ YxXGZzMjBcbGFuZzEwMzNc aGljaFxmMVxkYmNoXGYxXG arM0qyEfUuGuZjHZLKoWpg OMVMY9iqvNJyFDbeTISABY BsYWluXGYyXGZzMTZcbGFu ZzEwMzNcaGljaFxmMlxkYm AgYSJsTVhhZ5gfWlOgB0Rc XGZzMTZccGFyXHBsYWluXG YxXGZzMjRccGFyXHFsXHBs YWluXGYwXGZzMjRccGxhaW 4tDaJxMiXjYYtuNZ4cQVEv X4pyvPJaFVKsAYAiW0naGy QrnX1bfYtfZBabbyBgUDRq cn0= Embedded Images (test code = [id number]) [facility] [id number] 23:07:00 Test Item Value Reference Range Interpretation Comments PSA (test code = 29.30 ng/mL See_Comment H [Automated [id number]) message] The system which generated this result transmitted reference range : <=4.00. The reference range was not used to interpret this result as normal/abnormal . BEVERLEY (test code = BEVERLEY) Biotin has been reported to cause a negative bias, interpret results relative to patient's use of biotin. Lab Interpretation Abnormal (test code = 54292-7) [facility]
[2021-04-29 18:25] LABS: Absolute Lymphocytes (CBC) 0.9 K/uL (0.7-4.9); Hematocrit 39.1 % (39.6-49.0); Lymphocytes % 19.3 % (15.3-44.8); MPV 9.2 fL (7.6-11.3); RBC Red Blood Cell Count 4.38 M/uL (4.33-5.43)
[2021-04-29 18:30] LABS: Protime INR 1.09
[2021-04-29 18:46] LABS: ALT/SGPT 21 U/L (12-78); AST/SGOT 18 U/L (15-37); Albumin 3.4 g/dL (3.4-5.0); Alkaline Phosphatase 95 U/L (45-117); BUN Blood Urea Nitrogen 21 mg/dL (7-18); Bicarbonate 29 mmol/L (21-32); Bilirubin Direct < 0.1 mg/dL (0-0.2); Bilirubin Total 0.4 mg/dL (0.2-1.0); Glucose Level 108 mg/dL (74-106); NT PRO-BNP 596 pg/mL (<450); Potassium 3.5 mmol/L (3.5-5.1); Sodium Level 141 mmol/L (136-145)
[2021-04-29] MEDS ORDERED: FAMOTIDINE 20 MG/2 ML VIAL IV ONE (18:54)
[2021-04-29] MEDS ORDERED: NA CHLORIDE 0.9% 1,000 ML ONE (18:54)
[2021-04-29] MEDS ORDERED: cloNIDine HCL 0.1 MG TAB ONE (18:56)
--- NOTE | 2021-04-29 19:24 | RAD REPORT ---
EXAM DESCRIPTION: RAD - Chest Single View - 04/29/2021 6:57 pm CLINICAL HISTORY: CHEST PAIN COMPARISON: Chest Single View dated 03/20/2021; Chest Single View dated 07/22/2016; Chest Single View d ated 07/18/2016 FINDINGS: Lines: None. Lungs: Chronic interstitial changes suspected. No acute process identified. Pleural: No significant pleural effusions or pneumothorax. Cardiac: Cardiomegaly. Bones: No acute fractures. Other: IMPRESSION: Chronic changes without superimposed acute process identified .
--- NOTE | 2021-04-29 20:22 | RAD REPORT ---
EXAM DESCRIPTION: CT - Head Brain Wo Cont - 04/29/2021 8:08 pm CLINICAL HISTORY: HEADACHE COMPARISON: No comparisons TECHNIQUE: All CT scans are performed using dose optimization technique as appropriate and may inclu de automated exposure control or mA/KV adjustment according to patient size. FINDINGS: No intracranial hemorrhage, hydrocephalus or extra-axial fluid collection.No areas of brai n edema or evidence of midline shift. Mild paranasal sinus thickening. This appears chronic. The calvarium is intact. IMPRESSION: No acute intracranial abnormality.
--- NOTE | 2021-04-29 21:03 | ER ---
Nurse's Notes [facility] Name: Jesse Serna Age: 80 yrs Sex: Male : 1940 Arrival Date: 04/29/2021 Time: 17:55 Bed 3 Private MD: Diagnosis: Essential (primary) hypertension Presentation: 04/29 17:56 Chief complaint: EMS states: "pt reporting high blood pressure. reported taking normal jd3 meds this am. pressure was 224/106. 103 BGL. he is reporting a small headache at this time. his pressure was down to 160/90 by the time we got here.". Coronavirus screen: At this time, the client does not indicate any symptoms associated with coronavirus-19. Ebola Screen: No symptoms or risks identified at this time. Initial Sepsis Screen: Does the patient meet any 2 criteria? No. Patient's initial sepsis screen is negative. Does the patient have a suspected source of infection? No. Patient's initial sepsis screen is negative. Risk Assessment: Do you want to hurt yourself or someone else? Patient reports no desire to harm self or others. Onset of symptoms was April 29, 2021. 17:56 Method Of Arrival: EMS: [facility] jd3 17:56 Acuity: KT 3 jd3 Historical: - Allergies: 17:58 No Known Allergies; jd3 - Home Meds: 17:58 Metoprolol Tartrate Oral [Active]; enalapril maleate Oral [Active]; jd3 - PMHx: 17:58 hypertension; prostate cancer- in remission; jd3 - Immunization history:: Adult Immunizations up to date. - Social history:: Smoking status: Patient/guardian denies using tobacco, but has a distant history of tobacco abuse. Screenin:05 Abuse screen: Denies threats or abuse. Denies injuries from another. Nutritional ld1 screening: No deficits noted. Tuberculosis screening: No symptoms or risk factors identified. Fall Risk None identified. Assessment: 18:05 General: Appears in no apparent distress. comfortable, Behavior is calm, cooperative, ld1 appropriate for age. Pain: Complains of pain in face and abdomen. Neuro: Level of Consciousness is awake, alert, obeys commands, Oriented to person, place, time, situation. Cardiovascular: Capillary refill < 3 seconds Patient's skin is warm and dry. Rhythm is regular. Respiratory: Airway is patent Respiratory effort is even, unlabored. GI: Abdomen is flat, non-distended. : No signs and/or symptoms were reported regarding the genitourinary system. EENT: No signs and/or symptoms were reported regarding the EENT system. Derm: No signs and/or symptoms reported regarding the dermatologic system. Musculoskeletal: No signs and/or symptoms reported regarding the musculoskeletal system. 19:00 General: Appears in no apparent distress. Behavior is cooperative. Pain: Complains of mk pain in head Pain currently is 8 out of 10 on a pain scale. Quality of pain is described as aching, Pain began gradually, Is lasting more than 1 hour. Neuro: Level of Consciousness is awake, alert, obeys commands, Oriented to person, place, time, situation. Neuro: 19:00 Cardiovascular: Heart tones S1 S2 present Capillary refill < 3 seconds in bilateral mk fingers toes JVD is absent Patient's skin is warm and dry. Pulses are 3+ in right radial artery, right dorsalis pedis artery, left radial artery and left dorsalis pedis artery Rhythm is sinus rhythm. Respiratory: Airway is patent Trachea midline Respiratory effort is even, unlabored, Respiratory pattern is regular, symmetrical. GI: Abdomen is flat, non-distended, Bowel sounds present X 4 quads. : No signs and/or symptoms were reported regarding the genitourinary system. Derm: No signs and/or symptoms reported regarding the dermatologic system. Musculoskeletal: Circulation, motion, and sensation intact. Capillary refill < 3 seconds, in bilateral fingers. toes. Range of motion: intact in all extremities. 19:05 Reassessment: Patient and/or family updated on plan of care and expected duration. Pain jd3 level reassessed. Patient is alert, oriented x 3, equal unlabored respirations, skin warm/dry/pink. family Anay Serna [phone]. 20:00 Reassessment: Patient and/or family updated on plan of care and expected duration. Pain mk level reassessed. Patient is alert, oriented x 3, equal unlabored respirations, skin warm/dry/pink. 21:00 Reassessment: Patient and/or family updated on plan of care and expected duration. Pain mk level reassessed. Patient is alert, oriented x 3, equal unlabored respirations, skin warm/dry/pink. Vital Signs: 18:00 BP 145 / 95; Pulse 62; Resp 17 S; Temp 98.1(TE); Pulse Ox 99% on R/A; Pain 7/10; jd3 19:05 BP 179 / 76; Pulse 62; Resp 18 S; Pulse Ox 100% on R/A; jd3 20:00 BP 164 / 63; Pulse 49; Resp 18; Pulse Ox 97% on R/A; mk 21:00 BP 151 / 74; Pulse 50; Resp 18; Pulse Ox 97% on R/A; mk Leeanne Coma Score: 19:05 Eye Response: spontaneous(4). Verbal Response: oriented(5). Motor Response: obeys mk commands(6). Total: 15. 20:00 Eye Response: spontaneous(4). Verbal Response: oriented(5). Motor Response: obeys mk commands(6). Total: 15. 21:00 Eye Response: spontaneous(4). Verbal Response: oriented(5). Motor Response: obeys mk commands(6). Total: 15. ED Course: 17:55 Patient arrived in ED. jd3 17:58 Triage completed. jd3 18:01 Arm band placed on. jd3 18:03 Ml Ortiz FNP-C is PHCP. kb 18:03 Iban Paredes MD is Attending Physician. kb 18:05 Martha Doss, ARA is Primary Nurse. ld1 18:05 Patient has correct armband on for positive identification. Placed in gown. Bed in low ld1 position. Call light in reach. Side rails up X2. playground monitor on. Pulse ox on. NIBP on. Door closed. Noise minimized. Warm blanket given. 18:05 No provider procedures requiring assistance completed. Inserted saline lock: 20 gauge ld1 in right antecubital area, using aseptic technique. Blood collected. 18:18 Iban Paredes MD is Attending Physician. kdr 18:58 XRAY Chest (1 view) In Process Unspecified. EDMS 19:21 Ml Ortiz FNP-C is PHCP. kb 20:07 CT Head Brain wo Cont In Process Unspecified. EDMS 21:20 IV discontinued, intact, bleeding controlled, No redness/swelling at site. Pressure mk dressing applied. Administered Medications: 19:03 Drug: cloNIDine 0.1 mg Route: PO; jd3 21:00 Follow up: Response: No adverse reaction; Blood pressure is lowered 19:04 Drug: NS 0.9% 1000 ml Route: IV; Rate: 1 bolus; Site: right antecubital; jd3 20:00 Follow up: Response: No adverse reaction; IV Status: Completed infusion; IV Intake: mk 1000ml 19:04 Drug: Pepcid (famotidine) 20 mg Route: IVP; Site: right antecubital; jd3 20:00 Follow up: Response: No adverse reaction mk Intake: 20:00 IV: 1000ml; Total: 1000ml. Outcome: 21:02 Discharge ordered by . kb 21:26 Patient left the ED. mk 21:26 Discharged to home with family. mk 21:26 Condition: stable 21:26 Discharge instructions given to patient, family, Instructed on discharge instructions, follow up and referral plans. Signatures: Dispatcher [employer] EDMS Ml Ortiz, GUNCOTTON PACKER-C GUNCOTTON PACKER-Ckb Iban Paredes MD MD kdr Davies, Jonathon, RN RN Martha Brown RN RN ld1 Estefani Terry RN RN sreedhar Corrections: (The following items were deleted from the chart) 18:00 17:58 PMHx: Hypertension; jd3 jd3
--- NOTE | 2021-04-29 21:03 | EDPHYS ---
Physician Documentation [facility] Name: Jesse Serna Age: 80 yrs Sex: Male : 1940 Arrival Date: 04/29/2021 Time: 17:55 Bed 3 Private MD: ED Physician Iban Paredes HPI: 04/29 18:52 This 80 yrs old Male presents to ER via EMS with complaints of Headache and kdr hypertension. 18:53 Patient was brought to the ED because his blood pressure been high and he had a mild kdr headache. Onset: The symptoms/episode began/occurred today. Severity of symptoms: At their worst the symptoms were mild in the emergency department the symptoms are unchanged. The patient has not experienced similar symptoms in the past. The patient has not recently seen a physician. Historical: - Allergies: 17:58 No Known Allergies; jd3 - Home Meds: 17:58 Metoprolol Tartrate Oral [Active]; enalapril maleate Oral [Active]; jd3 - PMHx: 17:58 hypertension; prostate cancer- in remission; jd3 - Immunization history:: Adult Immunizations up to date. - Social history:: Smoking status: Patient/guardian denies using tobacco, but has a distant history of tobacco abuse. ROS: 18:53 Constitutional: Negative for fever, chills, and weight loss, Eyes: Negative for injury, kdr pain, redness, and discharge, Neck: Negative for injury, pain, and swelling, Cardiovascular: Negative for chest pain, palpitations, and edema, Respiratory: Negative for shortness of breath, cough, wheezing, and pleuritic chest pain, Abdomen/GI: Negative for abdominal pain, nausea, vomiting, diarrhea, and constipation, Back: Negative for injury and pain, : Negative for injury, bleeding, discharge, and swelling, MS/Extremity: Negative for injury and deformity, Skin: Negative for injury, rash, and discoloration, Psych: Negative for depression, anxiety, suicide ideation, homicidal ideation, and hallucinations, Allergy/Immunology: Negative for hives, rash, and allergies, Endocrine: Negative for neck swelling, polydipsia, polyuria, polyphagia, and marked weight changes, Hematologic/Lymphatic: Negative for swollen nodes, abnormal bleeding, and unusual bruising. 18:53 Neuro: Positive for headache, of the top of head, Mild. Exam: 18:53 Constitutional: This is a well developed, well nourished patient who is awake, alert, kdr and in no acute distress. Head/Face: Normocephalic, atraumatic. Eyes: Pupils equal round and reactive to light, extra-ocular motions intact. Lids and lashes normal. Conjunctiva and sclera are non-icteric and not injected. Cornea within normal limits. Periorbital areas with no swelling, redness, or edema. Neck: Trachea midline, no thyromegaly or masses palpated, and no cervical lymphadenopathy. Supple, full range of motion without nuchal rigidity, or vertebral point tenderness. No Meningismus. Chest/axilla: Normal chest wall appearance and motion. Nontender with no deformity. No lesions are appreciated. Cardiovascular: Regular rate and rhythm with a normal S1 and S2. No gallops, murmurs, or rubs. Normal PMI, no JVD. No pulse deficits. Respiratory: Lungs have equal breath sounds bilaterally, clear to auscultation and percussion. No rales, rhonchi or wheezes noted. No increased work of breathing, no retractions or nasal flaring. Abdomen/GI: Soft, non-tender, with normal bowel sounds. No distension or tympany. No guarding or rebound. No evidence of tenderness throughout. Back: No spinal tenderness. No costovertebral tenderness. Full range of motion. Skin: Warm, dry with normal turgor. Normal color with no rashes, no lesions, and no evidence of cellulitis. MS/ Extremity: Pulses equal, no cyanosis. Neurovascular intact. Full, normal range of motion. Neuro: Awake and alert, GCS 15, oriented to person, place, time, and situation. Cranial nerves II-XII grossly intact. Motor strength 5/5 in all extremities. Sensory grossly intact. Cerebellar exam normal. Normal gait. Psych: Awake, alert, with orientation to person, place and time. Behavior, mood, and affect are within normal limits. Vital Signs: 18:00 BP 145 / 95; Pulse 62; Resp 17 S; Temp 98.1(TE); Pulse Ox 99% on R/A; Pain 7/10; jd3 19:05 BP 179 / 76; Pulse 62; Resp 18 S; Pulse Ox 100% on R/A; jd3 20:00 BP 164 / 63; Pulse 49; Resp 18; Pulse Ox 97% on R/A; mk 21:00 BP 151 / 74; Pulse 50; Resp 18; Pulse Ox 97% on R/A; mk Leeanne Coma Score: 19:05 Eye Response: spontaneous(4). Verbal Response: oriented(5). Motor Response: obeys mk commands(6). Total: 15. 20:00 Eye Response: spontaneous(4). Verbal Response: oriented(5). Motor Response: obeys mk commands(6). Total: 15. 21:00 Eye Response: spontaneous(4). Verbal Response: oriented(5). Motor Response: obeys mk commands(6). Total: 15. MDM: 18:03 Patient medically screened. kb 18:53 Data reviewed: vital signs, nurses notes, lab test result(s), radiologic studies. kdr Counseling: I had a detailed discussion with the patient and/or guardian regarding: the historical points, exam findings, and any diagnostic results supporting the discharge/admit diagnosis, lab results, radiology results, the need for outpatient follow up. 19:23 Patient medically screened. kb 04/29 18:08 Order name: Basic Metabolic Panel [facility] 04/29 18:08 Order name: CBC with Diff; Complete Time: 18:52 04/29 18:08 Order name: LFT's; Complete Time: 18:52 04/29 18:08 Order name: Magnesium; Complete Time: 18:52 04/29 18:08 Order name: NT PRO-BNP; Complete Time: 18:52 04/29 18:08 Order name: PT-INR; Complete Time: 18:52 04/29 18:08 Order name: Troponin HS; Complete Time: 18:52 04/29 18:08 Order name: XRAY Chest (1 view); Complete Time: 19:26 ld04/29 18:08 Order name: Basic Metabolic Panel; Complete Time: 18:52 EDMS 04/29 18:51 Order name: CT Head Brain wo Cont; Complete Time: 20:27 kdr 04/29 18:08 Order name: EKG; Complete Time: 18:09 ld1 04/29 18:08 Order name: Cardiac monitoring; Complete Time: 18:08 ld04/29 18:08 Order name: EKG - Nurse/Tech; Complete Time: 18:08 ld1 04/29 18:08 Order name: IV Saline Lock; Complete Time: 18:08 ld04/29 18:08 Order name: Labs collected and sent; Complete Time: 18:08 ld04/29 18:08 Order name: O2 Per Protocol; Complete Time: 18:08 ld04/29 18:08 Order name: O2 Sat Monitoring; Complete Time: 18:08 ld1 Administered Medications: 19:03 Drug: cloNIDine 0.1 mg Route: PO; jd3 21:00 Follow up: Response: No adverse reaction; Blood pressure is lowered mk 19:04 Drug: NS 0.9% 1000 ml Route: IV; Rate: 1 bolus; Site: right antecubital; jd3 20:00 Follow up: Response: No adverse reaction; IV Status: Completed infusion; IV Intake: mk 1000ml 19:04 Drug: Pepcid (famotidine) 20 mg Route: IVP; Site: right antecubital; jd3 20:00 Follow up: Response: No adverse reaction mk Disposition Summary: 04/29/21 21:02 Discharge Ordered Location: Home kb Condition: Stable kb Diagnosis - Essential (primary) hypertension kb Followup: kb - With: Emergency Department - When: As needed - Reason: Worsening of condition Followup: kb - With: Private Physician - When: 2 - 3 days - Reason: Recheck today's complaints, Continuance of care, Re-evaluation by your physician Discharge Instructions: - Discharge Summary Sheet kb - Hypertension, Adult, Mome-ov-Wber kb Forms: - Medication Reconciliation Form kb - Thank You Letter kb - Antibiotic Education kb - Prescription Opioid Use kb Signatures: Dispatcher [employer] EDMS Ml Ortiz, FINANCIAL PLANNING CONSULTANT-C FINANCIAL PLANNING CONSULTANT-Ckb Iban Paredes MD MD kdr Davies, Jonathon RN RN jd3 Martha Doss RN RN ld1 Estefani Terry RN Corrections: (The following items were deleted from the chart) 18:00 17:58 PMHx: Hypertension; jd3 jd3 18:23 18:19 TYPE AND SCREEN+BB.LAB.BRZ ordered. EDMS EDMS 18:23 18:20 AMMONIA+C.LAB.BRZ ordered. EDMS EDMS 18:23 18:20 ETHANOL+C.LAB.BRZ ordered. EDMS EDMS
[2021-04-29 22:31] VITALS: TEMP 98.1
[2021-04-29 22:33] VITALS: O2SAT 97
[2021-04-29 22:34] VITALS: BP 151/74
== END 2021-04-29 21:26 | disposition home or self-care (01) ==
LOC: ER 17:51
DX: I10 Essential (primary) hypertension (principal)
CPT/HCPCS: 36415; 70450; 71045; 80048; 80076; 83735; 83880; 84484; 85025; 85610; 93005; 96361; 96374; 99284; J7030

== ENCOUNTER 2021-05-21 08:43 | Emergency (ER) | payer SELFPAY ==
--- OUTSIDE RECORDS SUMMARY | 2021-05-21 08:48 | XMS REPORT | Clinical Summary ---
:1940 Author Organization [facility] MD [facility] Address [address] [place] [address] Care Team Providers Name Role Phone Pako [...] Take 1 tablet (50 30 tablet 0 Active 50 mg mg) by mouth tabletIndications: daily. Adenocarcinoma of prostate tamsulosin (FLOMAX) Take 2 capsules 60 capsule [...] Paroxysmal atrial every 12 fibrillation (twelve) hours. enalapril (VASOTEC) 10 TAKE ONE TABLET 90 tablet 2 05/18/2021 Active mg tabletIndications: BY MOUTH DAILY ( Essential (primary) HOLD DOSE IF hypertension SBP<110 ) amLODIPine (NORVASC) 5 Take 5 mg by 0 08/12 3 Discontinued mg tablet mouth daily. (Stop T aking at Discharge) enalapril (VASOTEC) 10 Take 10 mg by 0 Discontinued mg tablet mouth daily. (Madhavie r) venlafaxine (Effexor Take 1 capsule 30 capsule 5 04/18/2020 Discontinued XR) 75 mg 24 hr (75 mg) by mouth /2020 (Stop Taking at capsuleIndications: at bedtime. Discharge) Adenocarcinoma of prostate degarelix (FIRMAGON) Inject 240 mg 0 07/16 Discontinued 120 mg/3 mL solr under the skin /2020 (Therapy injection once. Last dose com pleted) 04/18/2020 zolpidem (Ambien) 5 mg Take 1 tablet (5 30 tablet 5 05/16/202008/20 Discontinued tabletIndications: mg) by mouth /2020 (Reorder) Adenocarcinoma of nightly as prostate needed for sleep. sodium,potassium,mag Take as directed 177 mL 0 07/25/2020 0 08/24 Discontinued sulfates (Suprep) for colonoscopy (Stop Taking at 17.5-3.13-1.6 gram prep D [...] Take 1 30 capsule 6 07/30/2020 09/26/19 21 Discontinued 0.4 mg 24 hr capsule (0.4 [...] enalapril (VASOTEC) 10 Take 1 90 tablet 2 08/24/20202021 Discontinued mg tabletIndications: tablet (10 blood pressure mg) by mouth daily. Hold [...] #1: Name: Latoya Serna ( Daughter ) [phone] Contact #2: Name: Phone Number: Contact #3: [...] Encounters Date Type Specialty Care Team Description 05/17/2021 Refill Genitourinary Oncology Herman Jones (primary) DEVAUGHN Hyde hypertension 04/29/2021 Orders Only Cardiology Joe Taylor atri al ELIZABETH Ernandez fibrillation (Primary Dx) 04/29/2021 Telephone Radiation Oncology Serena Stuart, NECKTIE TURNER 03/20/2021 Orders Only Cardiology Zachary Essential (prim aislinn) Angelika Rush hypertension RN (Primary Dx) 03/20/2021 Documentation Cardiology Angelika Sharma RN 01/12/2021 Refill Radiation Oncology Narciso Adenocarc inoma of Serena, NECKTIE TURNER prostate 01/12/2021 Orders Only Genitourinary Oncology Kait Nails, [facility] 11/20/2020 Refill Genitourinary Oncology Sanjuanita Lerma, Tiffany enocarcinoma of [facility] prostate 11/19/2020 Telephone Radiation Oncology Hang Menjivar RN 11/19/2020 Nurse Only Radiation Oncology Hang Menjivar RN 10/31/2020 Telemedicine Gastroenterology, Navin Lal Diarrhe a (Primary Dx); Hepatology & Nutrition MD Gavin gardner history of colon polyps 10/31/2020 Prep for Surgery Gastroenterology, Polly Berg, Hepatology & Nutrition [facility] 10/31/2020 Travel 10/29/2020 Telephone Radiation Oncology Emely Ng, ARA 10/29/2020 Nurse Only Radiation Oncology Emely Ng, ARA 10/27/2020 Follow-Up Cardiology Ian, Paroxysmal atri al fibrillation; Kathie Moser NP Essential (primary) hypertension Harlan Brandon PA 10/27/2020 Travel 10/23/2020 Orders Only Radiation Oncology Crabtrey, Adenocarc inoma of Serena, NECKTIE TURNER prostate (Prim aislinn Dx) 10/17/2020 Hospital Encounter [...] MD 10/08/2020 Travel 2020 Hospital Encounter Radiation Nick Howe MD 2020 Travel 10/06/2020 Hospital Encounter Radiation [...] 09/25/2020 Travel 09/25/2020 Orders Only Radiation Oncology JonesAshley barriga 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, [facility] prostate 09/24/2020 Hospital Encounter Radiation Oncology Nick Delgado MD 09/24/2020 Hospital Encounter Radiation Oncology Yeny Milly nocarcinoma [...] Delgado MD 09/18/2020 Orders Only Radiation Oncology Yeny, Jeanniecarc inoma of MD Marek prostate (Prim aislinn [...] 08/27/2020 Hospital Encounter Lab Crabtrey, Dysuria Serena, NECKTIE TURNER 08/27/2020 Hospital Encounter Radiation Oncology Nick Delgado MD 08/27/2020 Hospital Encounter Radiation Oncology Milly Saini nocarcinoBetty MD prostate (Prim aislinn Dx) 08/27/2020 Orders Only Radiation Oncology Crabtrey, Adenocarc inoma of Serena, NECKTIE TURNER prostate (Prim aislinn Dx) 08/27/2020 Orders Only Radiation Oncology Crabtrey, Dysuria ( Primary Serena, NECKTIE TURNER Dx) 08/27/2020 Travel 08/26/2020 Hospital Encounter Radiation Oncology Nick Delgado MD 08/26/2020 Travel 08/24/2020 Orders Only Genitourinary Oncology Robert, Adeno carcinoma of Renju, [employer] prostate (Prima ry Dx) 08/22/2020 Travel 08/21/2020 Hospital Encounter Gastrointestinal Hita Juan Pablo Bifas cicular block (Primary Dx); - Surgery MD Rui Syncope; 08/24/2020 Daniel Lal Hypotension; Paroxysmal atrial fibrillation; Nick Delgado, Chest pain, not otherwise specified; High troponin I level; Postprandial di arrhea; Contusion of he ad; Moderate dehydr ation; Essential (prim aislinn) hypertension; Adenocarcinoma of prostate; Pneumonia, not otherwise specified; Atrial fibrilla tion, not otherwise specified; Anemia in neopl astic disease 08/21/2020 Hospital Encounter Radiation Oncology Nick Delgado MD 08/21/2020 Documentation Radiation Oncology Ashley Jones, [facility] 08/21/2020 Travel 08/20/2020 Hospital Encounter Radiation Oncology Nick Delgado MD 08/20/2020 Refill Genitourinary Oncology Sanjuanita Lerma, Ad enocarcinoma of [facility] prostate 08/20/2020 Refill Radiation Oncology Crabtrey, Adenocarc inoma of Serena, NECKTIE TURNER prostate 08/20/2020 Orders Only Radiation Oncology Crabtrey, Adenocarc inoma of Serena, NECKTIE TURNER prostate (Prim aislinn Dx) 08/20/2020 Travel 08/19/2020 Hospital Encounter Radiation Oncology Nick Delgado MD 08/19/2020 Travel 08/18/2020 Hospital Encounter Radiation Oncology Nick Delgado MD 08/18/2020 Travel 08/18/2020 Documentation Proton Therapy Marek Saini MD 08/11/2020 Hospital Encounter Radiation Oncology Nick Delgado MD 08/07/2020 Orders Only GastroenterologyJose Personal h istory of Hepatology & Nutrition Lisa, [employer] colon ic polyp (Primary Dx) 07/30/2020 Hospital Encounter Radiation Oncology Marek Saini MD 07/30/2020 Hospital Encounter Radiation Oncology Nick Delgado, Adenocarcinoma of prostate 07/30/2020 Hospital Encounter Radiation Oncology Nick Delgado, Adenocarcinoma of MD prostate 07/30/2020 Documentation Proton Therapy Marek Saini MD 07/30/2020 Orders Only Radiation Oncology Crabtrey, Adenocarc inoma of Serena, NECKTIE TURNER prostate (Prim aislinn Dx) 07/30/2020 Documentation Radiation Oncology Crabtrey, Serena, NECKTIE TURNER 07/30/2020 Documentation Proton Therapy Marek Saini MD 07/30/2020 Orders Only Radiation Oncology Crabtrey, Adenocarc inoma of Serena, NECKTIE TURNER prostate (Prim aislinn Dx) 07/30/2020 Travel 07/29/2020 Anesthesia Event Radiology Amos Velez, Henry Triana CRNA 07/29/2020 Hospital Encounter Radiology Nick Delgado, Adenoc arcinoma of MD prostate Henry Small, Chapito Aguayo MD 07/29/2020 Telephone Radiation Oncology Hang Menjivar, ARA 07/29/2020 Telephone Radiation Oncology Hang Menjivar, ARA 07/29/2020 Travel 07/28/2020 POEM Appointments Anesthesiology Kateryna Gu PA 07/28/2020 Anesthesia Event Endoscopy Alexis Cam MD 07/28/2020 Surgery Endoscopy [facility] DIAGNOSTIC FLEX IBLE Major, COLONOSCOPY MD Tanesha PROXIMAL TO SPL ENIC FLEXURE 07/28/2020 Hospital Encounter Endoscopy [facility] Adenocarc inoma of Major, prostate MD Tanesha 07/28/2020 Hospital Encounter Lab Brittanie Adenocarc inoma of Kateryna EELIZABETH prostate 07/28/2020 Orders Only Radiology Susan Up PA 07/28/2020 Orders Only Radiology Susan Up, Adenocarcino ma of ELIZABETH prostate (Prima ry Dx) 07/28/2020 Travel 07/27/2020 Clinical Support Nick Norman Encounte r for MD observation for Michael, Paola, other suspecte d RN exposure to biological [...] Office Visit Genitourinary Oncology Nick Delgado Es sentitalat (primary) hypertension (Primary Dx); Adenocarcinoma of prostate; Mixed hyperlipi demia; Chronic back pa in; Adjustment diso rder with mixed anxiety and depressed mood; Nocturia; Anemia in neopl astic disease; Insomnia, not o therwise specified; Overweight 07/16/2020 Hospital Encounter Radiation Oncology Milly Saini nocarcinoma of MD Marek prostate 07/16/2020 Travel 07/15/2020 Ancillary Procedure Radiology Sanjuanita Lerma, Adeno carcinoma of [facility] prostate 07/15/2020 Ancillary Procedure Radiology Sanjuanita Lerma, LATIA 07/15/2020 Ancillary Procedure Radiology Sanjuanita Lerma, Adeno carcinoma of [facility] prostate 07/15/2020 Hospital Encounter Lab Sanjuanita Lerma, Adenoc arcinoma of [facility] prostate 07/15/2020 Travel 06/12/2020 Orders Only Intensive Care Sanjuanita Lerma, LATIA 05/31/2020 Immunization Prince Jin, SARS-CoV-2 MD Rick vaccination (Primary Dx) 05/31/2020 Travel 05/28/2020 Orders Only Radiation Oncology Crabtrey, Adenocarc inoma of Serena, NECKTIE TURNER prostate (Prim aislinn Dx) after 05/21/2020 Immunizations Name Administration Dates Next Due Kendra SARS-CoV-2 Vaccination 05/31/2020 remdesivir 03/07/2020, 03/06/2020, 03/05/2020, 03/04/2020, 03/03/2020 Surgical History Surgery Date Site/Laterality Comments LAPAROSCOPIC CHOLECYSTECOMY PROSTATE BIOPSY 09/14/2019 HERNIA REPAIR Bilateral SHOULDER SURGERY 03/14/2011 - Right 03/13/2012 MI COLONOSCOPY FLX DX 07/28/2020 N/A Procedure: DIAGNOSTIC [...] 08/21/2020 11:51 PM CDT Plan of Treatment Health Maintenance Due Date Last Done Comments [...] proced ure are in the results section. after 05/21/2020 Results EKG, 12-Lead (Portable) (08/31/2020)Only the most recent of3 resultswithin the time period is included. Specimen Narrative This result has an attachment that is no t available. Performing Organization Address City/State/ZIP Code Phon e Number MICHAEL IECG CT Head without Contrast (08/30/2020 5:35 PM CDT)Only the most recent of2 resultswithin the time period is included. Specimen Impressions [id number] - 08/30/2020 5:59 PM CDT No acute intracranial abnormality. Narrative [id number] - 08/30/2020 5:59 PM CDT FULL RESULT: [...] Organization Address City/State/ZIP Code Phon e Number [id number] Influenza A/B + COVID-19 Asymptomatic- L (08/30/2020 4:58 PM CDT) COVID19 Not Detected Not Detected [facility] (SARS-CoV-2) [facility] Influenza A Not Detected Not Detected [facility] Influenza B Not Detected Not Detected [facility] COVID19 SARS Inpatient Admission [facility] Indication [facility] Inf AB+Cov19 See Note [facility] Comment Comment: [facility] The walter SARS-CoV-2 & Influ jennifer [...] fact sheet for patients provided by the precision honing machine operator ([employer]) can be reviewed at: https://www.[employer].gov/media/544243/download A fact sheet for Health Care providers is provided by the precision honing machine operator ([employer]) and can be reviewed at: https://www.fda.gov/media/791927/download Influenza A and Influenza B negative results [...] tests. The Microbiology Laboratory at [facility], CLIA Accreditation # [id number] and CAP Accreditation #[id number], verified the performance characteristics of this assay. Internal controls are used to monitor all stages of the test process. Specimen Nasopharyngeal Swab Performing Organization Address City/State/ZIP Code Phon e Number [facility] Unless otherwise noted, [place] [address] [place] all lab tests performed by: Division of Pathology and Laboratory Medicine [address] [place] [address] POC Troponin I (08/30/2020 4:55 PM CDT)Only the most recent of2 resultswithin the time period is included. POC CTNI 0.00 0.00 - 0.08 POC [facility] Comment: ng/mL This cTnI test is performed by the Hhnip-qg-Qqas italia zer method, and the result may [...] Clean Dev Yes POC [facility], [address] [place] [address]; Gelatin Maker Utility: Kelsea Stafford MD Specimen Blood Performing Organization Address [facility] Phon e Number POC [facility] (ABNORMAL) POC Glucose Screen (08/30/2020 4:40 PM CDT) [facility] POC Glucose 106 (H) 70 - 99 [...] Sample Type Capillary POC [facility], [address] [place] [address]; Gelatin Maker Utility: Kelsea Stafford MD Specimen Blood Performing Organization Address [facility] Phon e Number POC T[facility]COR .Serum Creatinine (08/30/2020 4:36 PM CDT)Only the most recent of7 results within the time period is included. Pathologist Sig nature Creatinine 0.77 0.67 - 1.17 mg/dL [facility] C ENTER Specimen Blood Performing Organization Address City/[facility] Phon e Number [facility] CANCER Unless otherwise noted, [address] all lab tests performed by: Division of Pathology and Laboratory Medicine [address] [facility] (ABNORMAL) .CBC (08/30/2020 4:36 PM CDT)Only the most recent of6 resultswithin the time period is included. WBC 4.9 4.0 - 11.0 [facility] K/uL [facility] RBC 3.82 (L) 4.50 - 6.00 [facility] M/uL [facility] Hgb 11.6 (L) 14.0 - 18.0 [facility] gm/dL [facility] Hct 35.5 (L) 40.0 - 54.0 % [facility] MCV 93 82 - 98 fL [facility] MCH 30.4 27.0 - 31.0 pg [facility] MCHC 32.7 31.0 - 36.0 [facility] gm/dL [facility] RDW-SD 45.1 35.1 - 46.3 fL [facility] RDW-CV 13.4 12.0 - 15.5 % [facility] Platelet count 145 140 - 440 K/uL [facility] MPV 11.4 (H) 4.0 - 10.4 fL [facility] INRBC 0.0 <=0.0 % [facility] Comment: CANCER CENTER The INRBC (instrument NRBC) value reflects the enumera tion of nucleated red blood cells contained in a 200uL samp le of whole blood analyzed by the instrument. This value may differ from the NRBC value reported in a manual differ ential, which is based on a 100 cell differential. Specimen Blood Performing Organization Address City/[facility] Phon e Number [facility] CANCER Unless otherwise noted, [address] all lab tests performed by: Division of Pathology and Laboratory Medicine [address] [facility] Clot Expiration Date (08/30/2020 4:36 PM CDT)Only the most recent of3 results within the time period is included. Pathologist Sig nature T & S Expiration 09/02/2020 [facility] Specimen Blood Performing Organization Address City/State/ZIP Code Phon e Number [facility]CER Unless otherwise noted, [place] [address] CENTER all lab tests performed by: Division of Pathology and Laboratory Medicine [address] [place] Glomerular Filtration Rate (08/30/2020 4:36 PM CDT)Only the most recent of7 resultswithin the time period is included. eGFR-AA 100 >=60 [facility] Comment: mL/min/1.73 [facility] Normal eGFR: >= 60 mL/min/1.73 m2 sq. m Note: The eGFR is calculated using the CKD-EPI equation. The eGFR declines with age. eGFR <60 mL/min/1.73 m2 is considered as "decreased". This equation should only be used for patients 18 and older. According to the National Ki dney Foundation's Kidney Disease Outcome Quality Initiative [...] 5 Kidney failure <15 eGFR-DARIEN 87 >=60 [facility] Comment: mL/min/1.73 [facility] Normal eGFR: >= 60 mL/min/1.73 m2 sq. m Note: The eGFR is calculated using the CKD-EPI equation. The eGFR declines with age. eGFR <60 mL/min/1.73 m2 is considered as "decreased". This equation should only be used for patients 18 and older. According to the National Ki dney Foundation's Kidney Disease Outcome Quality Initiative [...] failure <15 Specimen Blood Performing Organization Address [facility] Phon e Number [facility] CANCER Unless otherwise noted, [address] all lab tests performed by: Division of Pathology and Laboratory Medicine [address] [place] [address] Fractionated Bilirubin (08/30/2020 4:36 PM CDT)Only the most recent of4 results within the time period is included. [facility] Bili Total 0.3 <=1.2 mg/dL [facility] Comment: CANCER CENTER Indocyanine Green (ICG) may cause falsely elevated bilirubin results. Total and direct bilirubin must not be measured from samples containing indocyanine green. False elevation of total roman irubin can be seen in patients with IgG concentrations above 28 g/L. Bili Direct <0.2Comment: <=0.3 mg/dL [facility] Indocyanine Green CANCER CENTER (ICG) may cause falsely elevated bilirubin results. Total and direct bilirubin must not be measured from samples containing indocyanine green. Bili Indirect See NoteComment: 0.0 - 0.9 [facility] Unable to calculate mg/dL [facility] Indirect Bilirubin result due to some parameters are outside reportable range Specimen Blood Performing Organization Address City/[facility] Phon e Number [facility] CANCER Unless otherwise noted, [address] all lab tests performed by: Division of Pathology and Laboratory Medicine [address] [place] [address] TMP Interpretation Antibody Screen Negative (08/30/2020 4:36 PM CDT)Only the most recent of3 resultswithin the time period is included. [facility] TMP Auto Neg ABSC At the present time, patien t plasma shows no evidence of RBC alloantibodies. [facility] Interp Comment: CANCER [place] JOSETTE CASILLAS MD - [id number] Dictated by: JOSETTE CASILLAS MD - [id number] Dictated Date/Time: 09.01.19 8:45 AM CDT Transcribed Date/Time: 08.31.2020 8:45 AM CDT Electronically Signed By: TIFFANY CASILLAS MD - [id number] on 08.31.2020 8:45 AM C Specimen Blood Performing Organization Address City/[facility]/ZIP Code Phon e Number [facility] CANCER Unless otherwise noted, [address] all lab tests performed by: Division of Pathology and Laboratory Medicine [address] [place] Partial Thromboplastin Time (08/30/2020 4:36 PM CDT)Only the most recent of2 resultswithin the time period is included. Pathologist Sig nature aPTT 31.4 24.7 - 36.8 second(s) [facility] CENTER Specimen Blood Performing Organization Address City/[facility]/ZIP Code Phon e Number [facility] CANCER Unless otherwise noted, [address] all lab tests performed by: Division of Pathology and Laboratory Medicine [address] [place] [address] [place] ABORh (08/30/2020 4:36 PM CDT)Only the most recent of3 resultswithin the time period is included. Pathologist Sig nature ABORh. O POS [facility] Specimen Blood Performing Organization Address City/[facility] Phon e Number [facility] CANCER Unless otherwise noted, [address] all lab tests performed by: Division of Pathology and Laboratory Medicine [address] [place] [address] [place] (ABNORMAL) Differential (08/30/2020 4:36 PM CDT)Only the most recent of6 resultswithin the time period is included. Neutrophil % 71.7 (H) 42.0 - 66.0 % [facility] Lymphocyte % 16.2 (L) 24.0 - 44.0 % [facility] Monocyte % 8.6 (H) 2.0 - 7.0 % [facility] Eosinophil % 2.5 1.0 - 4.0 % [facility] Basophil % 0.4 0.0 - 1.0 % [facility] IGRE % 0.6 (H)Comment: 0.0 - 0.4 % [facility] IGRE % count CANCER CENTER includes Metamyelocytes, Myelocytes, and Promyelocytes. Neutrophil Abs 3.50 1.70 - 7.30 [facility] K/uL [facility] Lymphocyte Abs 0.79 (L) 1.00 - 4.80 [facility] Monocyte Abs 0.42 0.08 - 0.70 [facility] Eosinophil Abs 0.12 0.04 - 0.40 [facility] Basophil Abs 0.02 0.00 - 0.10 [facility] IG Abs 0.03 0.00 - 0.04 [facility] Specimen Blood Performing Organization Address [facility] Phon e Number [facility] Unless otherwise noted, [address] all lab tests performed by: Division of Pathology and Laboratory Medicine [address] [place] Prothrombin Time with INR (08/30/2020 4:36 PM CDT)Only the most recent of3 resultswithin the time period is included. Pathologist Sig nature PT 13.3 11.5 - 13.9 second(s) [facility] INR 1.08 0.90 - 1.10 [facility] Specimen Blood Performing Organization Address [facility] Phon e Number [facility] Unless otherwise noted, [address] all lab tests performed by: Division of Pathology and Laboratory Medicine [address] [place] [address] [place] Antibody Screen (08/30/2020 4:36 PM CDT)Only the most recent of3 resultswithin the time period is included. Pathologist Sig nature ABSC. Negative ABSC [facility] CENTE R Specimen Blood Performing Organization Address [facility] Phon e Number [facility] Unless otherwise noted, [address] all lab tests performed by: Division of Pathology and Laboratory Medicine [address] [place], [place] [address] (ABNORMAL) Uric Acid (08/30/2020 4:36 PM CDT) Pathologist Sig nature Uric Acid 3.1 (L) 3.4 - 7.0 mg/dL [facility] [address] Specimen Blood Performing Organization Address [facility] Phon e Number [facility] Unless otherwise noted, [address] all lab tests performed by: Division of Pathology and Laboratory Medicine [facility] [place] BUN (08/30/2020 4:36 PM CDT)Only the most recent of7 resultswithin the time period is included. Pathologist Sig nature BUN 14 6 - 23 mg/dL [facility] Specimen Blood Performing Organization Address City/[facility] Phon e Number [facility] CANCER Unless otherwise noted, [address] all lab tests performed by: Division of Pathology and Laboratory Medicine [address] [place] ALT (08/30/2020 4:36 PM CDT)Only the most recent of4 resultswithin the time period is included. Pathologist Sig nature ALT 18 <=41 U/L [facility] Specimen Blood Performing Organization Address City/[facility] Phon e Number [facility] CANCER Unless otherwise noted, [address] all lab tests performed by: Division of Pathology and Laboratory Medicine [address] [place] Aspartate Aminotransferase (08/30/2020 4:36 PM CDT)Only the most recent of4 resultswithin the time period is included. Pathologist Sig nature AST 17 <=40 U/L [facility] Specimen Blood Performing Organization Address City/[facility] Phon e Number [facility] CANCER Unless otherwise noted, [address] all lab tests performed by: Division of Pathology and Laboratory Medicine [address] [place] TSH (08/30/2020 4:36 PM CDT) Pathologist Sig nature TSH 1.51 0.27 - 4.20 mcunit/mL [facility] Specimen Blood Performing Organization Address [facility] Phon e Number [facility] CANCER Unless otherwise noted, [address] all lab tests performed by: Division of Pathology and Laboratory Medicine [address] [place] (ABNORMAL) Free T4 (08/30/2020 4:36 PM CDT) Pathologist Sig nature T4 Free 1.77 (H) 0.93 - 1.70 ng/dL [facility] Specimen Blood Performing Organization Address City/[facility] Phon e Number [facility] CANCER Unless otherwise noted, [address] all lab tests performed by: Division of Pathology and Laboratory Medicine [address] [place] Total Protein (08/30/2020 4:36 PM CDT)Only the most recent of4 resultswithin the time period is included. Pathologist Sig nature Total Protein 6.4 6.4 - 8.3 g/dL [facility] TER Specimen Blood Performing Organization Address City/[facility] Phon e Number [facility] Unless otherwise noted, [address] all lab tests performed by: Division of Pathology and Laboratory Medicine [address] [place] Phosphorus Level (08/30/2020 4:36 PM CDT)Only the most recent of5 resultswithin the time period is included. Pathologist Sig nature Phosphorus 4.0 2.5 - 4.5 mg/dL [facility] TER Specimen Blood Performing Organization Address [facility] Phon e Number [facility] Unless otherwise noted, [address] all lab tests performed by: Division of Pathology and Laboratory Medicine [address] Alkaline Phosphatase (08/30/2020 4:36 PM CDT)Only the most recent of4 results within the time period is included. Pathologist Sig nature Alk Phos 76 40 - 129 U/L [facility] Specimen Blood Performing Organization Address [facility] Phon e Number [facility] Unless otherwise noted, [address] all lab tests performed by: Division of Pathology and Laboratory Medicine [address] [place] Magnesium Level (08/30/2020 4:36 PM CDT)Only the most recent of5 resultswithin the time period is included. Pathologist Sig nature Magnesium 2.0 1.6 - 2.6 mg/dL [facility] TER Specimen Blood Performing Organization Address City/[facility] Phon e Number [facility] Unless otherwise noted, [address] all lab tests performed by: Division of Pathology and Laboratory Medicine [address] [place] Lipase (08/30/2020 4:36 PM CDT) Pathologist Sig nature Lipase Lvl 17 13 - 60 U/L [facility] Specimen Blood Performing Organization Address City/[facility]/ZIP [facility] Phon e Number [facility] Unless otherwise noted, [address] all lab tests performed by: Division of Pathology and Laboratory Medicine [address] [place] (ABNORMAL) Glucose Level (08/30/2020 4:36 PM CDT)Only the most recent of5 resultswithin the time period is included. Glucose Level 101 (H) 70 - 99 mg/dL [facility] Comment: [facility] CENTER Effective 10/08/15, the gluco se reference intervals have been updated based on [place] Diabetes Association guidelines (Standards of Medical Care [...] for diabetes Specimen Blood Performing Organization Address [facility] Phon e Number [facility] Unless otherwise noted, [address] all lab tests performed by: Division of Pathology and Laboratory Medicine [address] [place] Calcium Level (08/30/2020 4:36 PM CDT)Only the most recent of6 resultswithin the time period is included. Pathologist Sig nature Calcium Lvl 9.3 8.4 - 10.2 mg/dL [facility] CANCER CE NTER Specimen Blood Performing Organization Address [facility] Phon e Number [facility] Unless otherwise noted, [address] all lab tests performed by: Division of Pathology and Laboratory Medicine [address] [place] Amylase (08/30/2020 4:36 PM CDT) Pathologist Sig nature Amylase Lvl 96 28 - 100 U/L [facility] Specimen Blood Performing Organization Address City/[facility] Phon e Number [facility] Unless otherwise noted, [address] all lab tests performed by: Division of Pathology and Laboratory Medicine [address] [place] Albumin Level (08/30/2020 4:36 PM CDT)Only the most recent of4 resultswithin the time period is included. Pathologist Sig nature Albumin Lvl 3.9 3.5 - 5.2 gm/dL [facility] [address] Specimen Blood Performing Organization Address [facility] Phon e Number [facility] Unless otherwise noted, [address] all lab tests performed by: Division of Pathology and Laboratory Medicine [facility] Electrolyte Panel (08/30/2020 4:36 PM CDT)Only the most recent of6 results within the time period is included. Pathologist Sig nature Sodium Lvl 139 136 - 145 mEq/L [facility] Potassium Lvl 4.3 3.5 - 5.1 mEq/L [facility] Chloride 102 98 - 107 mEq/L [facility] CO2 27 22 - 29 mEq/L [facility] Anion Gap 10 4 - 14 mEq/L [facility] Specimen Blood Performing Organization Address City/State/ZIP Code Phon e Number [facility] Unless otherwise noted, [address] all lab tests performed by: Division of Pathology and Laboratory Medicine [facility] [address] [place] Urinalysis with Microscopic (08/27/2020 12:29 PM CDT) Pathologist Sig nature UA WBC <1 0 - 2 /HPF [facility] U[facility] RBC 1 0 - 2 /HPF [facility] Mucous TRACE Not Seen-Trace /HPF [facility]A Bacteria NOT SEEN NOT SEEN /HPF [facility] Squam Epi NOT SEEN None-Occasional [facility] Specimen Urine Narrative [facility] - 1 1:18 PM CDT Some reporting parameters within the Urinalysis test have changed due to the implementation of new in strumentation in the Main [place], allowi ng greater sensitivity of measurement. Urinalysis results reported by the [facility] using existing instrumentation, as well as Urinalysis t esting performed manually or by backup methodology at the [facility] will remain relatively unchanged. New reporting parameters and units will now be reported for all campuses. Performing Organization Address City/State/ZIP Code Phon e Number [facility] Unless otherwise noted, [address] all lab tests performed by: Division of Pathology and Laboratory Medicine [facility] [address] [place] (ABNORMAL) Urinalysis w/Microscopic if Indicated (08/27/2020 12:29 PM CDT)Only the most recent of2 resultswithin the time period is included. Pathologist Sig nature UA Color Straw Straw-Yellow [facility] Appear Clear Clear [facility] Glucose NEG NEG mg/dL [facility] Bili NEG NEG [facility] Ketones NEG NEG mg/dL [facility] Spec Grav 1.008 1.003 - 1.035 [facility] Blood Small (A) NEG [facility] pH 7.0 5.0 - 9.0 [facility] Protein NEG NEG mg/dL [facility] Urobilinogen NEG NEG [facility] Nitrite NEG NEG [facility] Leuk Est NEG NEG [facility] Specimen Urine Performing Organization Address City/[facility]/ZIP Code Phon e Number [facility] Unless otherwise noted, [address] all lab tests performed by: Division of Pathology and Laboratory Medicine [facility] Urine Culture (08/27/2020 12:29 PM CDT)Only the most recent of2 resultswithin the time period is included. Final Report No growth [facility] Path Review - The results have been review ed and electronically signed by Pathologist: [facility] Urine TIM BURNETT MD #[id number] [facility]ENT[facility] R Specimen Urine, Clean Catch Performing Organization Address City/[facility]/ZIP Code Phon e Number [facility] CANCER Unless otherwise noted, [address] all lab tests performed by: Division of Pathology and Laboratory Medicine [address] [place] XR Abdomen 1 View Portable (08/22/2020 2:59 PM CDT) Specimen Impressions [id number] - 08/22/2020 4:09 PM CDT Nonobstructive bowel gas pattern. Narrative [id number] - 08/22/2020 4:09 PM CDT FULL RESULT: [...] Organization Address City/State/ZIP Code Phon e Number [id number] Echocardiogram 2D Complete with Contrast (08/22/2020 11:39 [...] nature Troponin T 42 (H) <=18 ng/L [facility] Comment: CANCER CENTER < 19 ng/L Suggest [...] Organization Address City/State/ZIP Code Phon e Number [facility] Unless otherwise noted, [place] [address] [place] all lab tests performed by: Division of Pathology and Laboratory Medicine [facility] X-ray Chest 1 View Portable (08/21/2020 1:10 PM CDT) Specimen Impressions [id number] - 08/21/2020 1:46 PM CDT Mild opacity in the left midlung field is improved in appearance. It may represent residual or recurrent infectious/inflammatory process or scar. Follow- up chest radiography can be obtained for further evaluation. Narrative [id number] - 08/21/2020 1:46 PM CDT FULL RESULT: [...] Organization Address City/State/ZIP Code Phon e Number [id number] Respiratory Viral Panel + COVID-19, Nasopharyngeal Swab (08/21/2020 1:05 PM CDT) Adenovirus Not Detected Not Detected [facility] Coronavirus 229E Not Detected Not Detected [facility] Coronavirus HKU1 Not Detected Not Detected [facility] Coronavirus NL63 Not Detected Not Detected [facility] Coronavirus OC43 Not Detected Not Detected [facility] COVID19 (SARS-CoV-2) Not Detected Not Detected [facility] Human Metapneumovirus Not Detected Not Detected [facility] Human Not Detected Not Detected [facility] Rhinovirus/Enterovirus [facility] Influenza A Not Detected Not Detected [facility] Influenza A H1 Not Detected Not Detected [facility] Influenza A H1 2009 Not Detected Not Detected [facility] Influenza A H3 Not Detected Not Detected [facility] Influenza B Not Detected Not Detected [facility] Parainfluenza 1 Not Detected Not Detected [facility] Parainfluenza 2 Not Detected Not Detected [facility] Parainfluenza 3 Not Detected Not Detected [facility] Parainfluenza 4 Not Detected Not Detected [facility] Respiratory Syncytial Not Detected Not Detected [facility] Virus [facility] Bordetella Not Detected Not Detected [facility] Parapertussis [facility] Bordetella pertussis Not Detected Not Detected [facility] Chlamydiophila Not Detected Not Detected [facility] pneumoniae [facility] Mycoplasma pneumoniae Not Detected Not Detected [facility] Specimen Nasopharyngeal Swab Narrative [facility] - 2:12 PM CDT The BioFire RP2.1 is a real-time, nested multiplexed polymerase chain reaction test designed to simul taneously identify nucleic acids from 22 different viruses and bacteria associated with respiratory tract infection, including SARS-CoV-2, from a single nasopharyngeal swab (FOLLOW UP SPECIALIST) specimen. Spec ifically, the SARS-CoV-2 primers contained [...] to perform moderate-complexity and high-complexity tests. The icrobiology Laboratory at [facility], CLIA Accreditation #[id number] and CAP Accreditation #[id number], verified the performance characteristics of this assay. Microbiology Laboratory at [facility] performs the assay using the mytrax System. Internal control s are used to monitor all stages of the test proces s. Performing Organization Address City/State/ZIP Code Phon e Number [facility] Unless otherwise noted, [place] [address] [place] all lab tests performed by: Division of Pathology and Laboratory Medicine [facility] POC VBG+Lac (08/21/2020 12:47 PM CDT) POC [...] Clean Dev Yes POC TELCOR [facility] P[facility], [address] [place] [address]; Gelatin Maker Utility: Kelsea Stafford MD Specimen Blood Performing Organization [...] 18 and older. According to the National [facility]'s Kidney Disease Outcome Quality Initiative (KDOQI) classification [...] 18 and older. According to the National [facility]'s Kidney Disease Outcome Quality Initiative (KDOQI) classification [...] Clean Dev Yes POC TELCOR [facility]forming [facility] POC [facility], [address] [place] [address], [place] [address]; Gelatin Maker Utility: Kelsea Stafford MD Specimen Blood Performing Organization Address City/[facility]/ZIP Code Phon e Number POC TELCOR (ABNORMAL) Cardiac Panel (08/21/2020 12:27 PM CDT) CK 102 39 - 308 U/L [facility] CK MB 3.2 <=10.4 ng/mL [facility] Troponin T 26 (H) <=18 ng/L [facility] Comment: [facility] < 19 ng/L Suggest retest at [...] low results. Specimen Blood Performing Organization Address [facility] Code Phon e Number [facility] Unless otherwise noted, [address] all lab tests performed by: Division of Pathology and Laboratory Medicine [address] Blood Culture- Peripheral (08/21/2020 12:27 PM CDT) Pathologist [facility] Final Report No growth [facility] Path Review - Immunity and antibiotic use may render culture negative. Ongoing infection requires repeat culture. [facility] Bottle/Isolator The results have been review ed and electronically signed by Pathologist: [facility] CENTER TIM BURNETT MD #[id number] Specimen Blood - Venipuncture Narrative [facility] - 1 5:41 PM CDT Short draw may invalidate quantitative blood culture results. 08/21/2020 1:52:33 PM CDT Performing Organization Address City/[facility] Phon e Number [facility] CANCER Unless otherwise noted, [address] all lab tests performed by: Division of Pathology and Laboratory Medicine [address] [place] Fibrinogen (08/21/2020 12:27 PM CDT) Pathologist Sig nature Fibrinogen 324 214 - 503 mg/dL [facility] [address] Specimen Blood Performing Organization Address City/[facility]/ZIP [facility] Phon e Number [facility] CANCER Unless otherwise noted, [address] all lab tests performed by: Division of Pathology and Laboratory Medicine [address] Dimer (08/21/2020 12:27 PM CDT) Pathologist [facility] D-Dimer 0.30 0.10 - 0.50 [facility] Comment: mcg/ml FEU [facility] The cut off value for exclusion of venous thromboembol ism is <0.51 mcg/mL FEUs (fibrinogen equivalent units). Specimen Blood Performing Organization Address City/[facility]/ZIP [facility] Phon e Number [facility] CANCER Unless otherwise noted, [address] all lab tests performed by: Division of Pathology and Laboratory Medicine [address] [place] CRP (C-reactive protein) (08/21/2020 12:27 PM CDT) Pathologist [facility] gris CRP 0.53 mg/L [facility] Comment: CANCER CENTER Reference ranges for HS CRP assay are as follows: Reference ranges when used to assess cardiac risk: <1.00 mg/L Low cardiovascular risk 1.00-3.00 mg/L Average cardiovascular risk >3.00 mg/L High cardiovascular risk. Reference ranges when used to assess inflammatory resp onses: Less than or equal to 10.00 mg/L. Specimen Blood Performing Organization Address [facility] Phon e Number [facility] CANCER Unless otherwise noted, [address] all lab tests performed by: Division of Pathology and Laboratory Medicine [address] LDH (08/21/2020 12:27 PM CDT)Only the most recent of2 resultswithin the time period is included. Pathologist [facility] LDH 176Comment: Results 135 - 225 U/L [facility] greater than 1651 U/L [facility] may not be reliable due to matrix effect with extended dilution as it exceeds the precision honing machine operator s recommended limit. Caution should be exercised when interpreting such values and done in conjunction with clinical context. Specimen Blood Performing Organization Address City/[facility]/ZIP [facility] Phon e Number [facility] CANCER Unless otherwise noted, [address] all lab tests performed by: Division of Pathology and Laboratory Medicine [facility] [employer] [place] IR Transperineal Placement Biodegradable Material (07/29/2020 2:48 PM CDT) Specimen Narrative Chapito Lopez MD - 07/30/2020 9:03 AM CDT Date of Procedure: 07/29/20 Attending Physician: Chapito Lopez MD Technology Trainer: Matt Aaron MD Pre-procedure Diagnosis: Prostate Cancer [...] Procedure: 07/29/20 Attending Physician: Chapito Lopez MD Technology Trainer: Matt Aaron MD Pre-procedure Diagnosis: Prostate Cancer [...] Pathologist Sig nature Submitted 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 by Aracely yo. MD Nicole on 07/30/2020 at 4 :46 [...] hyperplastic polyp(s). Melanosis coli. Gross Description A: [facility] Colon, ascending, 3mm ascend ing [...] submitted in F1. TERESITA Biomarker Block(s) N/A [facility] Disclaimer "Some tests reported [facility] here may have been developed and performance characteristics determined by [facility] Pathology and Laboratory Medicine. These tests have not been specifically cleared or approved by the U.S. Food and Drug Administration. If applicable, controls were reviewed and showed appropriate reactivity." Specimen Tissue - Colon, Ascending Tissue - Colon, Ascending Tissue - Colon, Transverse Tissue - Colon, Descending Tissue - Colon, Sigmoid Tissue - Colon, Rectosigmoid Performing Organization Address City/State/ZIP Code Phon e Number [facility] [place] [address] [address] [facility] ENDOSCOPY NOTE RESULTS (07/28/2020 11:24 AM CDT) [...] ions were monitored continuously.The Olympus CF-HQ1 90L ([id number]) adult colonoscope was introduced thr ough the anus and advanced to the terminal ileum . The colonoscopy was performed without diffic ulty. The patient tolerated the procedure well . The quality of the bowel preparation wa s evaluated using the BBPS ([place] Bowel Preparat ion Scale) with scores of: [...] (07/28/2020 10:51 AM CDT)Only the most recent of2 resultswithin the time period is included. Pathologist Sig nature Glucose Random 108 70 - 199 mg/dL [facility] Comment: Effective 10/08/15, the gluco se reference intervals have been updated based on [place] Diabetes Association guidelines (Standards of Medical Care in Diabetes 2016. Diabetes Care 2016; 39: S13-S22) Fasting blood glucose: Normal: 70 99 mg/dL Impaired fasting glucose (in creased risk for diabetes or pre-diabetes): 100 125 mg/dL Diabetes mellitus: >/= 126 mg/dL Random blood glucose: Normal: 70 199 mg/dL Note: Random glucose >100 mg/dL is assoc iated with increased risk for diabetes Testing Performed at [facility] Associate Professor Of Philosophy Bldg, [address] [place] [address], [address], [place] [address] Specimen Blood Performing Organization Address [facility] Phon e Number [address] [place] [address] [address] Anion Gap (07/28/2020 10:51 AM CDT) Pathologist Sig nature Anion Gap 10Comment: Testing 4 - 14 mEq/L [facility] Performed at [facility] Associate Professor Of Philosophy [facility], [address] [place] [address], [address], [place] [address] Specimen Blood Performing Organization Address [facility] Phon e Number [address] [place] [address] [address] (ABNORMAL) Testosterone Level (07/28/2020 10:51 AM CDT)Only the most recent of2 resultswithin the time period is included. Testoster Tot 9 (L) 193 - 740 [facility] Comment: ng/dL [facility]ENTER Reference Ranges: Male: Age 20 - 49 249 - 836 Age >=50 193 - 740 Female: Age 20 - 49 8 - 48 Age >=50 3 - 41 Specimen Blood Performing Organization Address [facility]/ZIP [facility] Phon e Number [facility] CANCER Unless otherwise noted, [place] [address] CENTER all lab tests performed by: Division of Pathology and Laboratory Medicine [address] [place] Sodium Level (07/28/2020 10:51 AM CDT) Pathologist Sig nature Sodium Lvl 142Comment: Testing 136 - 145 mEq/L [facility] Performed at [facility] Associate Professor Of Philosophy [facility], [address] [facility], [address], [place] [address] Specimen Blood Performing Organization Address [facility] Phon e Number [facility] [address] [place] [address] [address] Prostate Specific Antigen (PSA) - Diagnostic (07/28/2020 10:51 AM CDT)Only the most recent of2 resultswithin the time period is included. PSA 1.1 0.0 - 4.0 ng/mL [facility] Comment: Results greater than 4519 ng /mL may not be reliable due to matrix effect with extended dilution as it exceeds the precision honing machine operator's recommended limit. Caution should be exercised when interpreting such lor ues and done in conjunction with clinical context. Testing Performed at [facility] Associate Professor Of Philosophy [facility], [address], [address], [place] [address] PSA Indication Diagnostic [facility] Specimen Blood Performing Organization Address [facility] Phon e Number [facility] [address] [place] [address] [address] Potassium (07/28/2020 10:51 AM CDT) Pathologist Sig nature Potassium Lvl 4.5Comment: Testing 3.5 - 5.1 mEq/L [facility] Performed at [facility] Associate Professor Of Philosophy [facility], [address], [address], [place] [address] Specimen Blood Performing Organization Address [facility] Phon e Number [facility] [address] [place] [address] [address] Chloride Level (07/28/2020 10:51 AM CDT) Pathologist Sig nature Chloride 106Comment: Testing 98 - 107 mEq/L [facility] Performed at [facility] Associate Professor Of Philosophy [facility], [address], [address], [place] [address] Specimen Blood Performing Organization Address City/[facility]/ZIP Code Phon e Number [facility] [address] [place] [address] [address] Carbon Dioxide Level (07/28/2020 10:51 AM CDT) Pathologist Sig nature CO2 26Comment: Testing 22 - 29 mEq/L [facility] Performed at [facility] Associate Professor Of Philosophy [facility], [address], [place] [address] Specimen Blood Performing Organization Address City/[facility] Code Phon e Number [facility] [address] [place] [address] [address] COVID-19 (SARS-CoV-2) PCR-Asymptomatic [facility] (07/27/2020 10:34 AM CDT) COVID19 (SARS Not Detected Not Detected [facility] CoV-2) Result Comment: [facility] This test is a qualitative r [...] [facility], CLIA Accreditation #: [id number] and CAP Accreditation #: [id number]. Results must be interpreted within the context [...] john ting if clinically indicated. COVID19 [facility] Swab [facility] Source [facility] COVID19 SARS Pre-Out of OR [facility] Indication Procedure [facility] Specimen Nasopharyngeal Swab Performing Organization Address City/State/ZIP Code Phon e Number [facility] CANCER Unless otherwise noted, [place] [address] CENTER all lab tests performed by: Division of Pathology and Laboratory Medicine [facility] [facility] CT Chest Abdomen Pelvis with Contrast (07/15/2020 6:44 PM CDT) Specimen Impressions [id number] - 07/16/2020 10:43 AM CDT No metastatic disease in the chest, abdo men or pelvis Narrative [id number] - 07/16/2020 10:43 AM CDT FULL RESULT: [...] No suspicious regional skeletal lesion. Procedure Note Fwan Thomas MD - 07/16/2020 FULL RESULT: Examination: [...] Organization Address City/State/ZIP Code Phon e Number [id number] [place] Bone Scan Whole Body (07/15/2020 1:56 PM CDT) Specimen Impressions [id number] - 07/15/2020 2:02 PM CDT Likely degenerative sites of activity similar compared to February 2020 study. No new or suspicious progressive osseous lesions to suggest active osseous meta stases. Narrative [id number] - 07/15/2020 2:02 PM CDT FULL RESULT: [...] suggest active osseous metastases. Performing Organization Address City/State/ZIP Code Phon e Number [id number] Vitamin D 25OH (07/15/2020 11:27 AM CDT) Vitamin D 25 OH 56 30 - 100 ng/mL [facility] Comment: [facility] CENTER Reference Range: Deficiency: <10 ng/mL Insufficiency: 10-29 ng/mL Sufficiency: 30-100 ng/mL Potential toxicity: >100 ng/mL Specimen Blood Performing Organization Address City/State/ZIP Code Phon e Number [facility] CANCER Unless otherwise noted, [place] [address] CENTER all lab tests performed by: Division of Pathology and Laboratory Medicine [address] [place] [address] after 05/21/2020 Advance Directives Code Status Date Activated Date Inactivated Comments Full Code 08/21/2020 11:52 PM 08/24/2020 5:55 PM Full Code 03/02/2020 8:29 PM 03/07/2020 11:09 PM Full Code 02/26/2020 9:33 PM 02/29/2020 8:36 PM Care Teams Rn First Assistant Relationship Specialty Start Date End Date Pako Lopez MD PCP - External Urology 10/11/19 [facility]: Referring [address] [place] [id number] Nick Delgado MD PCP - General Genitourinary Oncology 01/25/[address] [place] [id number] [facility] Radiation Oncology 02/14/20 [facility] [place] [address]
--- OUTSIDE RECORDS SUMMARY | 2021-05-21 08:52 | XMS REPORT | Continuity of Care Document ---
:1940 Author Organization [facility] t Address [address] [place] [address] Care Team Providers Name Role Phone [phone] Primary Care Physician Unavailable Robert CANTOR Attending Clinician Brandon JOHNSON Attending Clinician Narciso PERALTA Attending Clinician Adri Sharma RN Attending Clinician Unavailable Jesu [facility] Attending Clinician Chayito JEFFERY Attending Clinician Adri Menjivar RN Attending Clinician Unavailable LUKASZ Attending Clinician Unavailable Lukasz ANDINO Attending Clinician Morena JEFFERY M Attending Clinician Carmen Ng RN Attending Clinician Ian JEFFERY, S Attending Clinician Aleksandr JOHNSON Attending Clinician Shanti FRIED Attending Clinician Unavailable DANNY Attending Clinician Unavailable Danny ANDINO Attending Clinician Sheila ANDINO Attending Clinician SHEILA Attending Clinician Unavailable TIMO Attending Clinician Unavailable Vonnie Jones NP Attending Clinician Lele PT, TJf Attending Clinician Rui Hanson MD Attending Clinician Andreea Bean RN Attending Clinician Unavailable Lukasz ANDINO Attending Clinician Jose CANTOR Attending Clinician Geovanny HECK Attending Clinician Jessica ANDINO Attending Clinician Jeramy Velez MD. Attending Clinician Se Watson Attending Clinician Milad Rachel MD Attending Clinician Shanti Cam MD. Attending Clinician Jeovanny JOHNSON Attending Clinician Michael BULLOCK Attending Clinician Unavailable Natalie RN, S Attending Clinician Unavailable Jenny Raman Attending Clinician Davin ANDINO Attending Clinician Dashawn Massey DO Attending Clinician [...] Clinician Date Atrial Atrial Disease Active Last MD saba walter 08-22 Falguni Mir on on 00:00: t & Plan: [...] p.o. twice daily. 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 o with mixed with mixed 00:00: n [...] 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 2- An derso emia emia 00:00: n 00 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 00:00: n 00 Chest pain Chest pain Disease Resolve 2020-10-27 2020-10-27 MD sterling 6- 00:00:00 16:30:30 Nathan o 00:00: n 00 Allergies, Adverse Reactions, Alerts Allergy Allergy Status Severity Reaction(s) Onset Inactive Treating Comm ents Source Name Type Date Date Clinician NO KNOWN Drug Active Univers ALLERGIE Class ity of S [facility] Social History Social Habit Start Date Stop Date Quantity Comments Source Exposure to Not sure [facility] SARS-CoV-2 (event) [facility] History of tobacco Current smoker MD Valdivia [...] on exposure 00:00:00 00:00:00 tobacco non-user History [facility] 2020-02-13 2020-02-13 1 MD Valdivia Alcohol Frequency 00:00:00 00:00:00 History [facility] 2020-02-13 2020-02-13 99 MD Valdivia Alcohol Std Drinks 00:00:00 00:00:00 History [facility] 2020-02-13 2020-02-13 1 MD Valdivia Alcohol Binge 00:00:00 00:00:00 Tobacco Comment 2020-02-13 2020-02-13 used to smoke; MD Jaclyn noel 00:00:00 00:00:00 quit 12 years ago Sex Ass[birth year] At [birth year] MD [place] on 00:00:00 00:00:00 Smoking Status Start Date Stop Date Source Unknown if ever smoked [facility] Former smoker 2019-10-11 00:00:00 2019-10-11 00:00:00 [facility] Medications Ordered Filled Start Stop Current Ordering Indication Dosage Frequency Signature Comments Components Source Medication Medication Date Date Medication? Clinician (SIG) Name Name enalapril Yes Essential TAKE ONE MD (VASOTEC) 3-07 (primary) TABLET BY Anderso 10 mg 00:00: hypertensio MOUTH n tablet 00 n DAILY ( HOLD DOSE IF SBP<110 ) apixaban Yes Paroxysmal 5mg Take 1 M [...] 00:00 daily. n tablet 34 :00 enalapril 2021- No 10mg Take 1 MD (VASOTEC) 08-24 03-07 tablet (10 And erso 10 mg 00:00: [...] or heart rate less than 55. amoxicillin No 875mg Take 1 MD -clavulanat 08-22 [...] (top number) is less than 110. zolpidem No Adenocarcin 5mg Take 1 MD (Ambien) [...] twice daily for 3 days. sodium,pota 2020- Colonoscopy Take as MD ssium,mag 07-25 planned directed An derso sulfates 00:00: 00:00 for n (Suprep) 00 :00 colonoscop 17.5-3.13-1 y prep .6 gram solr degarelix 2020- No 240mg Inject 240 MD (FIRMAGON) 5-05 05-05 mg under Bernard rso 120 mg/3 mL 13:52: 00:00 the skin n solr 33 :00 once. injection Last dose 04/18/2020 pantoprazol Yes Adenocarcin 40mg Take 1 MD [...] No Adenocarcin 75mg Take 1 MD (Effexor 2-07 17-13 geoff of capsule Dave so XR) 75 mg 00:00: 00:00 prostate (75 mg) by n 24 hr 00 :00 mouth at capsule bedtime. tamsulosin 2019-0 Yes [id number] .4mg Take 1 Univers 0.4 mg 24 7-13 capsule by ity of hr capsule 00:00: mouth [place] 00 daily. Medical Branch tamsulosin 2019-0 Yes [id number] .4mg Take 1 Univers 0.4 mg 24 7-13 capsule by ity of hr capsule 00:00: mouth [place] 00 daily. Medical Branch tamsulosin 2019-0 Yes [id number] .4mg Take 1 Univers 0.4 mg 24 7-13 capsule by ity of hr capsule 00:00: mouth [place] 00 daily. Medical Branch tamsulosin 2019-0 Yes [id number] .4mg Take 1 Univers 0.4 mg 24 7-13 capsule by ity of hr capsule 00:00: mouth [place] 00 daily. Medical Branch tamsulosin 2019-0 Yes [id number] .4mg Take 1 Univers 0.4 mg 24 7-13 capsule by ity of hr capsule 00:00: mouth [place] 00 daily. Medical Branch tamsulosin 2019-0 Yes [id number] .4mg Take 1 Univers 0.4 mg 24 7-13 capsule by ity of hr capsule 00:00: mouth [place] 00 daily. Medical Branch tamsulosin 2019-0 Yes [id number] .4mg Take 1 Univers 0.4 mg 24 7-13 capsule by ity of hr capsule 00:00: mouth [place] 00 daily. Medical Branch tamsulosin 2019-0 Yes [id number] .4mg Take 1 Univers 0.4 mg 24 7-13 capsule by ity of hr capsule 00:00: mouth [place] 00 daily. Medical Branch tamsulosin 2020-0 Yes [id number] .4mg Take 1 Univers 0.4 mg 24 7-13 capsule by ity of hr capsule 00:00: mouth [place] 00 daily. Medical Branch tamsulosin 2019-0 Yes [id number] .4mg Take 1 Univers 0.4 mg 24 7-13 capsule by ity of hr capsule 00:00: mouth [place] 00 daily. Medical Branch tamsulosin 2020-0 Yes [id number] .4mg Take 1 Univers 0.4 mg 24 7-13 capsule by ity of hr capsule 00:00: mouth [place] 00 daily. Medical Branch tamsulosin 2020-0 Yes [id number] .4mg Take 1 Univers 0.4 mg 24 7-13 capsule by ity of hr capsule 00:00: mouth [place] 00 daily. Medical Branch tamsulosin 2020-0 Yes [id number] .4mg Take 1 Univers 0.4 mg 24 7-13 capsule by ity of hr capsule 00:00: mouth [place] 00 daily. Medical Branch tamsulosin 2020-0 Yes [id number] .4mg Take 1 Univers 0.4 mg 24 7-13 capsule by ity of hr capsule 00:00: mouth [place] 00 daily. Medical Branch tamsulosin 2020-0 Yes [id number] .4mg Take 1 Univers 0.4 mg 24 7-13 capsule by ity of hr capsule 00:00: mouth [place] 00 daily. Medical Branch tamsulosin 2020-0 Yes [id number] .4mg Take 1 Univers 0.4 mg 24 7-13 capsule by ity of hr capsule 00:00: mouth [place] 00 daily. Medical Branch tamsulosin 2020-0 Yes [id number] .4mg Take 1 Univers 0.4 mg 24 7-13 capsule by ity of hr capsule 00:00: mouth [place] 00 daily. Medical Branch tamsulosin 2020-0 Yes [id number] .4mg Take 1 Univers 0.4 mg 24 7-13 capsule by ity of hr capsule 00:00: mouth [place] 00 daily. Medical Branch tamsulosin 2020-0 Yes [id number] .4mg Take 1 Univers 0.4 mg 24 7-13 capsule by ity of hr capsule 00:00: mouth [place] 00 daily. Medical Branch tamsulosin 2020-0 Yes [id number] .4mg Take 1 Univers 0.4 mg 24 7-13 capsule by ity of hr capsule 00:00: mouth [place] 00 daily. Medical Branch tamsulosin 2020-0 Yes [id number] .4mg Take 1 Univers 0.4 mg 24 7-13 capsule by ity of hr capsule 00:00: mouth [place] 00 daily. Medical Branch tamsulosin 2020-0 Yes [id number] .4mg Take 1 Univers 0.4 mg 24 7-10 capsule by ity of hr capsule 00:00: mouth [place] 00 daily. Medical Branch tamsulosin 2020- No [id number] .4mg Take 1 Univers 0.4 mg 24 09-20 capsule by ity of hr capsule 00:00: 00:00 mouth [place] 00 :00 daily. Medical Branch cefTRIAXone 2020- No 500mg Univ ers (ROCEPHIN) 09-13 ity of injection 15:45: 15:10 [place] 500 mg 00 :00 Medical Branch gentamicin 2020- No 80mg Univer s INTRAMUSCUL 09-13 ity of AR syringe 15:45: 15:10 [place] 80 mg 00 :00 Medical Branch gentamicin 2020- No 80mg 80 mg, Univ ers INTRAMUSCUL 09-13 Intramuscu i ty of AR syringe 15:45: 15:10 lar, ONCE, [place] 80 mg 00 :00 1 dose, [facility] Tue09/14/19 Branch at 1045, HA
Re ason for Anti-Infec tive: Surgical Prophylaxi s
Surgi adilene Prophylaxi s: Genitourin aislinn
Dur ation of therapy: within 24 hours of surgery cefTRIAXone 2020- No 500mg 500 mg, U nivers (ROCEPHIN) 09-13 Intramuscu it y of injection 15:45: 15:10 lar, ONCE, [place] 500 mg 00 :00 1 dose, [facility] 09/14/19 Branch at 1045, HA
Re ason [...] 80 mg 00 :00 Medical Branch gentamicin 2020-0 2020- No 80mg 80 [...] within 24 hours of surgery mineral oil 2020-0 2020- No [id number] 1{enema Insert 1 Univers (READY-TO-U 09-06 } Enema into i ty of SE ENEMA, 00:00: 04:59 rectum [place] MIN OIL,) 00 :00 once now Medica l enema for 1 Branch dose. Perform morning of procedure. mineral oil 2020-0 2020- No [id number] 1{enema Insert 1 Univers (READY-TO-U 09-06 } Enema into i ty of SE ENEMA, 00:00: 04:59 rectum [place] MIN OIL,) 00 :00 once now Medica l enema for 1 Branch dose. Perform morning of procedure. mineral oil 2020-0 2020- No [id number] 1{enema Insert 1 Univers (READY-TO-U 09-06 } Enema into i ty of SE ENEMA, 00:00: 04:59 rectum [place] MIN OIL,) 00 :00 once now Medica l enema for 1 Branch dose. Perform morning of procedure. mineral oil 2020-0 2020- No [id number] 1{enema Insert 1 Univers (READY-TO-U 09-06 } Enema into i ty of SE ENEMA, 00:00: 04:59 rectum [place] MIN OIL,) 00 :00 once now Medica l enema for 1 Branch dose. Perform morning of procedure. ciprofloxac 2020-0 Yes [id number] 500mg Take 1 Univers in HCl 500 6-25 tablet by ity of mg tablet 00:00: mouth [place] 00 every 12 Medical (twelve) Branch hours. Start 1 day before procedure. ciprofloxac 2020-0 Yes [id number] 500mg Take 1 Univers in HCl 500 6-25 tablet by ity of mg tablet 00:00: mouth [place] 00 every 12 Medical (twelve) Branch hours. Start 1 day before procedure. ciprofloxac 2020-0 Yes [id number] 500mg Take 1 Univers in HCl 500 6-25 tablet by ity of mg tablet 00:00: mouth [place] 00 every 12 Medical (twelve) Branch hours. Start 1 day before procedure. ciprofloxac 2020-0 Yes [id number] 500mg Take 1 Univers in HCl 500 6-25 tablet by ity of mg tablet 00:00: mouth [place] 00 every 12 Medical (twelve) Branch hours. Start 1 day before procedure. ciprofloxac 2020-0 Yes [id number] 500mg Take 1 Univers in HCl 500 6-25 tablet by ity of mg tablet 00:00: mouth [place] 00 every 12 Medical (twelve) Branch hours. Start 1 day before procedure. ciprofloxac 2020-0 Yes [id number] 500mg Take 1 Univers in HCl 500 6-25 tablet by ity of mg tablet 00:00: mouth [place] 00 every 12 Medical (twelve) Branch hours. Start 1 day before procedure. ciprofloxac 2020-0 Yes [id number] 500mg Take 1 Univers in HCl 500 6-25 tablet by ity of mg tablet 00:00: mouth [place] 00 every 12 Medical (twelve) Branch hours. Start 1 day before procedure. ciprofloxac 2020-0 Yes [id number] 500mg Take 1 Univers in HCl 500 6-25 tablet by ity of mg tablet 00:00: mouth [place] 00 every 12 Medical (twelve) Branch hours. Start 1 day before procedure. ciprofloxac 2020-0 Yes [id number] 500mg Take 1 Univers in HCl 500 6-25 tablet by ity of mg tablet 00:00: mouth [place] 00 every 12 Medical (twelve) Branch hours. Start 1 day before procedure. ciprofloxac 2020-0 Yes [id number] 500mg Take 1 Univers in HCl 500 6-25 tablet by ity of mg tablet 00:00: mouth [place] 00 every 12 Medical (twelve) Branch hours. Start 1 day before procedure. ciprofloxac 2020-0 Yes [id number] 500mg Take 1 Univers in HCl 500 6-25 tablet by ity of mg tablet 00:00: mouth [place] 00 every 12 Medical (twelve) Branch hours. Start 1 day before procedure. ciprofloxac 2020-0 Yes [id number] 500mg Take 1 Univers in HCl 500 6-25 tablet by ity of mg tablet 00:00: mouth [place] 00 every 12 Medical (twelve) Branch hours. Start 1 day before procedure. ciprofloxac 2020-0 Yes [id number] 500mg Take 1 Univers in HCl 500 6-25 tablet by ity of mg tablet 00:00: mouth [place] 00 every 12 Medical (twelve) Branch hours. Start 1 day before procedure. ciprofloxac 2020-0 Yes [id number] 500mg Take 1 Univers in HCl 500 6-25 tablet by ity of mg tablet 00:00: mouth [place] 00 every 12 Medical (twelve) Branch hours. Start 1 day before procedure. ciprofloxac 2020-0 Yes [id number] 500mg Take 1 Univers in HCl 500 6-25 tablet by ity of mg tablet 00:00: mouth [place] 00 every 12 Medical (twelve) Branch hours. Start 1 day before procedure. ciprofloxac 2020-0 Yes [id number] 500mg Take 1 Univers in HCl 500 6-25 tablet by ity of mg tablet 00:00: mouth [place] 00 every 12 Medical (twelve) Branch hours. Start 1 day before procedure. ciprofloxac 2020-0 Yes [id number] 500mg Take 1 Univers in HCl 500 6-25 tablet by ity of mg tablet 00:00: mouth [place] 00 every 12 Medical (twelve) Branch hours. Start 1 day before procedure. ciprofloxac 2020-0 Yes [id number] 500mg Take 1 Univers in HCl 500 6-25 tablet by ity of mg tablet 00:00: mouth [place] 00 every 12 Medical (twelve) Branch hours. Start 1 day before procedure. ciprofloxac 2020-0 Yes [id number] 500mg Take 1 Univers in HCl 500 6-25 tablet by ity of mg tablet 00:00: mouth [place] 00 every 12 Medical (twelve) Branch hours. Start 1 day before procedure. ciprofloxac 2020-0 Yes [id number] 500mg Take 1 Univers in HCl 500 6-25 tablet by ity of mg tablet 00:00: mouth [place] 00 every 12 Medical (twelve) Branch hours. Start 1 day before procedure. ciprofloxac 2020-0 2020- No [id number] 500mg Take 1 Univers in HCl 500 6-25 07-30 tablet by ity of mg tablet 00:00: 00:00 mouth [place] 00 :00 every 12 Medical (twelve) Branch hours. Start 1 day before procedure. ciprofloxac 2020-0 2020- No [id number] 500mg Take 1 Univers in HCl 500 6-25 07-30 tablet by ity of mg tablet 00:00: 00:00 mouth [place] 00 :00 every 12 Medical (twelve) Branch hours. Start 1 day before procedure. ciprofloxac 2020-0 2020- No [id number] 500mg Take 1 Univers in HCl 500 6-25 07-30 tablet by ity of mg tablet 00:00: 00:00 mouth [place] 00 :00 every 12 Medical (twelve) Branch hours. Start 1 day before procedure. ciprofloxac 2020-0 2020- No [id number] 500mg Take 1 Univers in HCl 500 6-25 07-30 tablet by ity of mg tablet 00:00: 00:00 mouth [place] 00 :00 every 12 Medical (twelve) Branch hours. Start 1 day before procedure. ciprofloxac 2020-0 2020- No [id number] 500mg Take 1 Univers in HCl 500 6-25 07-03 tablet by ity of mg tablet 00:00: 04:59 mouth [place] 00 :00 every 12 Medical (twelve) Branch hours for 7 days. ciprofloxac 2020-0 2020- No [id number] 500mg Take 1 Univers in HCl 500 6-25 07-03 tablet by ity of mg tablet 00:00: 04:59 mouth [place] 00 :00 every 12 Medical (twelve) Branch hours for 7 days. enalapril 2020-0 Yes 10mg Take 10 mg Un pierre 10 mg 6-22 by mouth ity of tablet 20:31: daily. [address] amLODIPine 2020-0 Yes 5mg Take 5 mg Un pierre 5 mg tablet 6-22 by mouth ity of 20:31: daily. [address] enalapril 2020-0 Yes 10mg Take 10 mg Un pierre 10 mg 6-22 by mouth ity of tablet 20:31: daily. [address] amLODIPine 2020-0 Yes 5mg Take 5 mg Un pierre 5 mg tablet 6-22 by mouth ity of 20:31: daily. [address] enalapril 2020-0 Yes 10mg Take 10 mg Un pierre 10 mg 6-22 by mouth ity of tablet 20:31: daily. [address] amLODIPine 2020-0 Yes 5mg Take 5 mg Un pierre 5 mg tablet 6-22 by mouth ity of 20:31: daily. [address] enalapril 2020-0 Yes 10mg Take 10 mg Un pierre 10 mg 6-22 by mouth ity of tablet 20:31: daily. [address] amLODIPine 2020-0 Yes 5mg Take 5 mg Un pierre 5 mg tablet 6-22 by mouth ity of 20:31: daily. [address] enalapril 2020-0 Yes 10mg Take 10 mg Un pierre 10 mg 6-22 by mouth ity of tablet 20:31: daily. [address] amLODIPine 2020-0 Yes 5mg Take 5 mg Un pierre 5 mg tablet 6-22 by mouth ity of 20:31: daily. [address] enalapril 2020-0 Yes 10mg Take 10 mg Un pierre 10 mg 6-22 by mouth ity of tablet 20:31: daily. [address] amLODIPine 2020-0 Yes 5mg Take 5 mg Un pierre 5 mg tablet 6-22 by mouth ity of 20:31: daily. [address] enalapril 2020-0 Yes 10mg Take 10 mg Un pierre 10 mg 6-22 by mouth ity of tablet 20:31: daily. [address] amLODIPine 2020-0 Yes 5mg Take 5 mg Un pierre 5 mg tablet 6-22 by mouth ity of 20:31: daily. [address] enalapril 2020-0 Yes 10mg Take 10 mg Un pierre 10 mg 6-22 by mouth ity of tablet 20:31: daily. [address] amLODIPine 2020-0 Yes 5mg Take 5 mg Un pierre 5 mg tablet 6-22 by mouth ity of 20:31: daily. [address] enalapril 2020-0 Yes 10mg Take 10 mg Un pierre 10 mg 6-22 by mouth ity of tablet 20:31: daily. [address] amLODIPine 2020-0 Yes 5mg Take 5 mg Un pierre 5 mg tablet 6-22 by mouth ity of 20:31: daily. [address] enalapril 2020-0 Yes 10mg Take 10 mg Un pierre 10 mg 6-22 by mouth ity of tablet 20:31: daily. [address] amLODIPine 2020-0 Yes 5mg Take 5 mg Un pierre 5 mg tablet 6-22 by mouth ity of 20:31: daily. [address] enalapril 2020-0 Yes 10mg Take 10 mg Un pier[place] 10 mg 6-22 by mouth ity of tablet 20:31: daily. [address] amLODIPine 2020-0 Yes 5mg Take 5 mg Un pierre 5 mg tablet 6-22 by mouth ity of 20:31: daily. [address] enalapril 2020-0 Yes 10mg Take 10 mg Un pier[place] 10 mg 6-22 by mouth ity of tablet 20:31: daily. [address] amLODIPine 2020-0 Yes 5mg Take 5 mg Un pierre 5 mg tablet 6-22 by mouth ity of 20:31: daily. [address] enalapril 2020-0 Yes 10mg Take 10 mg Un pierre 10 mg 6-22 by mouth ity of tablet 20:31: daily. [address] amLODIPine 2020-0 Yes 5mg Take 5 mg Un pierre 5 mg tablet 6-22 by mouth ity of 20:31: daily. [address] enalapril 2020-0 Yes 10mg Take 10 mg Un pierre 10 mg 6-22 by mouth ity of tablet 20:31: daily. [address] amLODIPine 2020-0 Yes 5mg Take 5 mg Un pierre 5 mg tablet 6-22 by mouth ity of 20:31: daily. [address] enalapril 2020-0 Yes 10mg Take 10 mg Un pierre 10 mg 6-22 by mouth ity of tablet 20:31: daily. [address] amLODIPine 2020-0 Yes 5mg Take 5 mg Un pierre 5 mg tablet 6-22 by mouth ity of 20:31: daily. [address] enalapril 2020-0 Yes 10mg Take 10 mg Un pierre 10 mg 6-22 by mouth ity of tablet 20:31: daily. [address] amLODIPine 2020-0 Yes 5mg Take 5 mg Un pierre 5 mg tablet 6-22 by mouth ity of 20:31: daily. [address] enalapril 2020-0 Yes 10mg Take 10 mg Un pierre 10 mg 6-22 by mouth ity of tablet 20:31: daily. [address] amLODIPine 2020-0 Yes 5mg Take 5 mg Un pierre 5 mg tablet 6-22 by mouth ity of 20:31: daily. [address] enalapril 2020-0 Yes 10mg Take 10 mg Un pierre 10 mg 6-22 by mouth ity of tablet 20:31: daily. [address] amLODIPine 2020-0 Yes 5mg Take 5 mg Un pierre 5 mg tablet 6-22 by mouth ity of 20:31: daily. [address] enalapril 2020-0 Yes 10mg Take 10 mg Un pierre 10 mg 6-22 by mouth ity of tablet 20:31: daily. [address] amLODIPine 2020-0 Yes 5mg Take 5 mg Un pierre 5 mg tablet 6-22 by mouth ity of 20:31: daily. [address] enalapril 2020-0 Yes 10mg Take 10 mg Un pierre 10 mg 6-22 by mouth ity of tablet 20:31: daily. [address] enalapril 2020-0 Yes 10mg Take 10 mg Un pierre 10 mg 6-22 by mouth ity of tablet 20:31: daily. [address] amLODIPine 2020-0 Yes 5mg Take 5 mg Un pierre 5 mg tablet 6-22 by mouth ity of 20:31: daily. [address] enalapril 2020-0 Yes 10mg Take 10 mg Un pierre 10 mg 6-22 by mouth ity of tablet 20:31: daily. [address] amLODIPine 2020-0 Yes 5mg Take 5 mg Un pierre 5 mg tablet 6-22 by mouth ity of 20:31: daily. [address] amLODIPine 2020-0 Yes 5mg Take 5 mg Un pierre 5 mg tablet 6-22 by mouth ity of 20:31: daily. [address] enalapril 2020-0 Yes 10mg Take 10 mg Un pierre 10 mg 6-22 by mouth ity of tablet 20:31: daily. [address] amLODIPine 2020-0 Yes 5mg Take 5 mg Un pierre 5 mg tablet 6-22 by mouth ity of 20:31: daily. [address] enalapril 2020-0 Yes 10mg Take 10 mg Un pierre 10 mg 6-22 by mouth ity of tablet 20:31: daily. [address] amLODIPine 2020-0 Yes 5mg Take 5 mg Un pierre 5 mg tablet 6-22 by mouth ity of 20:31: daily. [address] enalapril 2020-0 Yes 10mg Take 10 mg Un pierre 10 mg 6-22 by mouth ity of tablet 20:31: daily. [address] amLODIPine 2020-0 Yes 5mg Take 5 mg Un pierre 5 mg tablet 6-22 by mouth ity of 20:31: daily. [address] enalapril 2020-0 Yes 10mg Take 10 mg Un pierre 10 mg 6-22 by mouth ity of tablet 20:31: daily. [address] amLODIPine 2020-0 Yes 5mg Take 5 mg Un pierre 5 mg tablet 6-22 by mouth ity of 20:31: daily. [address] enalapril 2020-0 Yes 10mg Take 10 mg Un pierre 10 mg 6-22 by mouth ity of tablet 20:31: daily. [address] amLODIPine 2020-0 Yes 5mg Take 5 mg Un pierre 5 mg tablet 6-22 by mouth ity of 20:31: daily. [address] enalapril 2020-0 Yes 10mg Take 10 mg Un pierre 10 mg 6-22 by mouth ity of tablet 20:31: daily. [address] amLODIPine 2020-0 Yes 5mg Take 5 mg Un pierre 5 mg tablet 6-22 by mouth ity of 20:31: daily. [address] enalapril 2020-0 Yes 10mg Take 10 mg Un pierre 10 mg 6-22 by mouth ity of tablet 20:31: daily. [address] amLODIPine 2020-0 Yes 5mg Take 5 mg Un pierre 5 mg tablet 6-22 by mouth ity of 20:31: daily. [address] enalapril 2020-0 Yes 10mg Take 10 mg Un pierre 10 mg 6-22 by mouth ity of tablet 20:31: daily. [address] amLODIPine 2020-0 Yes 5mg Take 5 mg Un pierre 5 mg tablet 6-22 by mouth ity of 20:31: daily. [address] enalapril 2020-0 Yes 10mg Take 10 mg Un pierre 10 mg 6-22 by mouth ity of tablet 20:31: daily. [address] amLODIPine 2020-0 Yes 5mg Take 5 mg Un pierre 5 mg tablet 6-22 by mouth ity of 20:31: daily. [address] enalapril 2020-0 Yes 10mg Take 10 mg Un pier[place] 10 mg 6-22 by mouth ity of tablet 20:31: daily. [address] amLODIPine 2020-0 Yes 5mg Take 5 mg Un pierre 5 mg tablet 6-22 by mouth ity of 20:31: daily. [address] enalapril 2020-0 Yes 10mg Take 10 mg Un pier[place] 10 mg 6-22 by mouth ity of tablet 20:31: daily. [address] amLODIPine 2020-0 Yes 5mg Take 5 mg Un pierre 5 mg tablet 6-22 by mouth ity of 20:31: daily. [address] enalapril 2020-0 Yes 10mg Take 10 mg Un pier[place] 10 mg 6-22 by mouth ity of tablet 20:31: daily. [address] amLODIPine 2020-0 Yes 5mg Take 5 mg Un pierre 5 mg tablet 6-22 by mouth ity of 20:31: daily. [address] enalapril 2020-0 Yes 10mg Take 10 mg Un pier[place] 10 mg 6-22 by mouth ity of tablet 20:31: daily. [address] enalapril 2020-0 Yes 10mg Take 10 mg Un pier[place] 10 mg 6-22 by mouth ity of tablet 20:31: daily. [address] amLODIPine 2020-0 Yes 5mg Take 5 mg Un pierre 5 mg tablet 6-22 by mouth ity of 20:31: daily. [address] amLODIPine 2020-0 Yes 5mg Take 5 mg Un pierre 5 mg tablet 6-22 by mouth ity of 20:31: daily. [address] enalapril 2020-0 Yes 10mg Take 10 mg Un pier[place] 10 mg 6-22 by mouth ity of tablet 20:31: daily. [address] amLODIPine 2020-0 Yes 5mg Take 5 mg Un pier[place] 5 mg tablet 6-22 by mouth ity of 20:31: daily. [address] enalapril 2020-0 Yes 10mg Take 10 mg Un pier[place] 10 mg 6-22 by mouth ity of tablet 20:31: daily. [address] amLODIPine 2020-0 Yes 5mg Take 5 mg Un pier[place] 5 mg tablet 6-22 by mouth ity of 20:31: daily. [address] enalapril 2020-0 Yes 10mg Take 10 mg Un pier[place] 10 mg 6-22 by mouth ity of tablet 20:31: daily. [address] amLODIPine 2020-0 Yes 5mg Take 5 mg Un pier[place] 5 mg tablet 6-22 by mouth ity of 20:31: daily. [address] ciprofloxac 2019-2019- No [id number] 500mg Take 1 Univers in HCl 500 6-22 06-22 tablet by ity of mg tablet 00:00: 00:00 mouth [place] 00 :00 every 12 Medical (twelve) Branch hours for 3 days. Start 1 day before procedure. ciprofloxac 2019- 2020- No [id number] 500mg Take 1 Univers in HCl 500 6-22 06-22 tablet by ity of mg tablet 00:00: 00:00 mouth [place] 00 :00 every 12 Medical (twelve) Branch hours for 3 days. Start 1 day before procedure. ciprofloxac 2019- 2020- No [id number] 500mg Take 1 Univers in HCl 500 6-22 06-22 tablet by ity of mg tablet 00:00: 00:00 [facility] 00 :00 every 12 Medical (twelve) Branch hours for 3 days. Start 1 day before procedure. ciprofloxac 2019- No [id number] 500mg Take 1 Univers in HCl 500 6-22 06-22 tablet by ity of mg tablet 00:00: 00:00 mouth [place] 00 :00 every 12 Medical (twelve) Branch hours for 3 days. Start 1 day before procedure. No known No Univers medications [facility] Immunizations Ordered Immunization Filled Immunization Date Status Commen ts Source Name Name Kendra SARS-CoV-2 2020-05-31 Completed Vaccination 00:00:00 alexa 2020-03-07 Completed MD Valdivia 00:00:00 alexa 2020-03-06 Barbara Valdivia 00:00:00 alexa 2020-03-05 Completed MD Valdivia 00:00:00 alexa 2020-03-04 Completed MD Valdivia 00:00:00 alexa 2020-03-03 Completed MD Valdivia 00:00:00 Vital Signs Vital Name Observation Time Observation Value Comments Source WEIGHT 2020-02-13 11:54:00 65.8 kg Systolic blood 2019-10-11 18:23:00 153 mm[Hg] Univer sity of pressure [facility] Diastolic blood 2019-10-11 18:23:00 69 mm[Hg] Unive rsity of pressure [facility] Heart rate 2019-10-11 18:23:00 64 /min [facility] [place] [facility] Body temperature 2019-10-11 18:23:00 36.67 Lyn [facility] [place] [facility] Respiratory rate 2019-10-11 18:23:00 14 /min [facility] [place] [facility] Body weight 2019-10-11 18:23:00 65.091 kg [facility] [place] [facility] BMI 2019-10-11 18:23:00 23.16 kg/m2 [facility] [place] [facility] Oxygen saturation in 2019-10-11 18:23:00 96 /min University of Arterial blood by [facility] Pulse oximetry Branch Systolic blood 2019-09-14 15:02:00 150 mm[Hg] Univer sity of pressure [place] [facility] Diastolic blood 2019-09-14 15:02:00 71 mm[Hg] Unive rsity of pressure [place] [facility] Heart rate 2019-09-14 15:02:00 68 /min [facility] [place] [facility] Body temperature 2019-09-14 15:02:00 36.78 Lyn [facility] [place] [facility] Respiratory rate 2019-09-14 15:02:00 15 /min Univ [facility] [place] [facility] Body weight 2019-09-14 15:02:00 68.493 kg [facility] [place] [facility] BMI 2019-09-14 15:02:00 24.37 kg/m2 [facility] [place] [facility] Oxygen saturation in 2019-09-14 15:02:00 98 /min University of Arterial blood by [facility] Pulse oximetry Branch Systolic blood 2019-09-03 20:27:00 156 mm[Hg] Univer sity of pressure [place] [facility] Diastolic blood 2019-09-03 20:27:00 76 mm[Hg] Unive rsity of pressure [place] [facility] Heart rate 2019-09-03 20:27:00 80 /min [facility] [place] [facility] Body temperature 2019-09-03 20:27:00 36.44 Lyn [facility] [place] [facility] Respiratory rate 2019-09-03 20:27:00 14 /min Univ [facility] [place] [facility] Body height 2019-09-03 20:27:00 167.6 cm [facility] [place] [facility] Body weight 2019-09-03 20:27:00 68.493 kg [facility] [place] [facility] BMI 2019-09-03 20:27:00 24.37 kg/m2 [facility] [place] [facility] Oxygen saturation in 2019-09-03 20:27:00 99 /min University Arterial blood by [facility] Pulse oximetry Branch Systolic blood 2020-10-27 20:30:58 146 mm[Hg] pressure Diastolic blood 2020-10-27 20:30:58 71 mm[Hg] MD Jaclyn kasperson pressure Heart rate 2020-10-27 20:30:58 53 /min MD Dave gant Body temperature 2020-10-27 20:30:58 36.72 Lyn MD Jailyn bond Respiratory rate 2020-10-27 20:30:58 16 /min MD Jailyn bond Body weight 2020-10-27 20:30:58 62.4 kg MD Dave gant BMI 2020-10-27 20:30:58 24.07 kg/m2 MD Dave gant Oxygen saturation in 2020-10-27 20:30:58 97 /min MD Valdivia Arterial blood by Pulse oximetry Body height 2020-08-22 04:51:00 161 cm MD Dave gant Procedures Procedure Date / Time Performing Clinician Source Performed EKG, 12-LEAD (PORTABLE) 2020-08-31 00:00:00 Juan [address] HEAD WO CONTRAST 2020-08-30 22:35:28 Juan Pablo Hanson MD And zoraidaon INFLUENZA A/B + COVID-19 2020-08-30 21:58:00 Juan Pablo Hanson ASYMPTOMATIC-L POC TROPONIN I 2020-08-30 21:55:00 Juan Pablo Hanson MD POC GLUCOSE SCREEN 2020-08-30 21:40:00 Juan Pablo Hanson MD Bernard rson COMPLETE BLOOD COUNT W/ 2020-08-30 21:36:00 Juan Pablo Hanson MD DIFFERENTIAL COMPREHENSIVE METABOLIC 2020-08-30 21:36:00 Juan Pablo Hanson MD PANEL MAGNESIUM LEVEL 2020-08-30 21:36:00 Juan Pablo Hanson MD PHOSPHORUS LEVEL 2020-08-30 21:36:00 Juan Pablo Hanson MD on PROTHROMBIN TIME 2020-08-30 21:36:00 Juan Pablo aHnson MD on APTT 2020-08-30 21:36:00 Juan Pablo Hanson MD TYPE AND SCREEN 2020-08-30 21:36:00 HitJuan Pablo yu MD AMYLASE LEVEL 2020-08-30 21:36:00 HitaJuan Pablo MDo neeta LIPASE LEVEL 2020-08-30 21:36:00 HitaJuan Pablo MD Andzoraidao neeta THYROID STIMULATING 2020-08-30 21:36:00 Hitjailyn, Juan Pablo Fabian MD And erson HORMONE URIC ACID 2020-08-30 21:36:00 HitaJuan Pablo MD FREE THYROXINE 2020-08-30 21:36:00 HitaJuan Pablo MD ABORH 2020-08-30 21:36:00 HitaJuan Pablo MDo neeta ANTIBODY SCREEN 2020-08-30 21:36:00 HitaJuan Pablo MDo neeta Results CBC 2020-08-30 21:36:00 Juan Pablo Hanson MDo neeta MANUAL DIFFERENTIAL 2020-08-30 21:36:00 HitaJuan Pablo MD And erson GLUCOSE LEVEL 2020-08-30 21:36:00 HitJuan Pablo yu MDo neeta BLOOD UREA NITROGEN 2020-08-30 21:36:00 Hita, Juan Pablo Fabian MD And erson ELECTROLYTE PANEL 2020-08-30 21:36:00 Juan Pablo Hanson MD Dave son SERUM CREATININE 2020-08-30 21:36:00 Juan Pablo Hanson MD Nathan on .GLOMERULAR FILTRATION 2020-08-30 21:36:00 Juan Pablo Hanson MD RATE CALCIUM LEVEL TOTAL 2020-08-30 21:36:00 HitJaun Pablo yu MD And erson ALBUMIN LEVEL 2020-08-30 21:36:00 Juan Pablo Hanson MDo neeta ALKALINE PHOSPHATASE 2020-08-30 21:36:00 HitaJuan Pablo MD ALANINE AMINOTRANSFERASE 2020-08-30 21:36:00 Juan Pablo Hanson ASPARTATE AMINOTRANSFERASE 2020-08-30 21:36:00 HitJuan Pablo yu MD TOTAL PROTEIN 2020-08-30 21:36:00 Juan Pablo Hanson MD FRACTIONATED BILIRUBIN 2020-08-30 21:36:00 Juan Pablo Hanson MD CLOT EXPIRATION DATE 2020-08-30 21:36:00 Juan Pablo Hanson MD derson TMP INTERPRETATION 2020-08-30 21:36:00 Juan Pablo Hanson [...] LEVEL TOTAL 2020-08-24 07:57:00 Luigi Barreto MD Dave [facility] COMPLETE BLOOD COUNT W/ 2020-08-23 11:49:00 Juan [...] ELECTROLYTE PANEL 2020-08-23 08:58:00 Luigi Barreto MD Andsusan santacruz SERUM CREATININE 2020-08-23 08:58:00 Luigi Barreto MD .GLOMERULAR FILTRATION 2020-08-23 08:58:00 Luigi Barreto MD derson RATE CALCIUM LEVEL TOTAL 2020-08-23 08:58:00 Luigi Barreto MD Dave [facility] XR ABDOMEN 1 VW PORTABLE 2020-08-22 19:59:14 Luigi Barreto MD ECHOCARDIOGRAM 2D COMPLETE 2020-08-22 16:39:42 Luigi Barreto W CONTRAST COMPREHENSIVE METABOLIC 2020-08-22 10:54:00 Juan Pablo Hanson MD PANEL COMPLETE BLOOD COUNT W/ 2020-08-22 10:54:00 Juan Pablo Hanson MD DIFFERENTIAL GLUCOSE LEVEL 2020-08-22 10:54:00 HitJuan Pablo yu MD BLOOD UREA NITROGEN 2020-08-22 10:54:00 Juan Pablo Hanson MD And erson ELECTROLYTE PANEL 2020-08-22 10:54:00 HitJuan Pablo yu [facility] SERUM CREATININE 2020-08-22 10:54:00 HitJuan Pablo yu MD Nathan on .GLOMERULAR FILTRATION 2020-08-22 10:54:00 Juan Pablo Hanson MD RATE CALCIUM LEVEL TOTAL 2020-08-22 10:54:00 Juan Pablo Hanson MD And erson ALBUMIN LEVEL 2020-08-22 10:54:00 HitJuan Pablo yu MD ALKALINE PHOSPHATASE 2020-08-22 10:54:00 HitaJuan Pablo MD ALANINE AMINOTRANSFERASE 2020-08-22 10:54:00 Juan Pablo Hanson ASPARTATE AMINOTRANSFERASE 2020-08-22 10:54:00 Juan Pablo Hanson MD TOTAL PROTEIN 2020-08-22 10:54:00 Juan Pablo Hanson MD FRACTIONATED BILIRUBIN 2020-08-22 10:54:00 Juan Pablo Hanson MD Results CBC 2020-08-22 10:54:00 Juan Pablo Hanson MD MANUAL DIFFERENTIAL 2020-08-22 10:54:00 Juan Pablo Hanson MD And erson TROPONIN T 2020-08-22 05:03:00 Juan Pablo Hanson MD TROPONIN T 2020-08-22 01:45:00 Juan Pablo Hanson MD EKG, 12-LEAD (PORTABLE) 2020-08-22 00:00:00 Ana Manning MD nderson URINE CULTURE 2020-08-21 22:00:00 Brice Alexanedr MD Bernard rson URINALYSIS WITH 2020-08-21 22:00:00 [...] Brice Alexander MD ELECTROLYTE PANEL 2020-08-21 17:27:00 Birce Alexander MD derson SERUM CREATININE 2020-08-21 17:27:00 Brice Alexander MD [...] DIAGNOSTIC FLEXIBLE 2020-07-28 17:04:00 Milad Rachel MD Bernardse barnard COLONOSCOPY PROXIMAL TO Mian SPLENIC FLEXURE ENDOSCOPY [...] ALKALINE PHOSPHATASE 2020-07-15 16:27:00 Sanjuanita Lerma MD rsmarycarmen ASPARTATE AMINOTRANSFERASE 2020-07-15 16:27:00 Sanjuanita Lerma BLOOD UREA NITROGEN 2020-07-15 16:27:00 Sanjuanita Lerma MD CALCIUM LEVEL TOTAL 2020-07-15 16:27:00 Sanjuanita Lerma MD COMPLETE BLOOD COUNT W/ 2020-07-15 16:27:00 Sanjuanita Lerma MD nderson DIFFERENTIAL SERUM CREATININE 2020-07-15 16:27:00 Sanjuanita Lerma MD ELECTROLYTE PANEL 2020-07-15 16:27:00 Sanjuanita Lerma MDo n FRACTIONATED BILIRUBIN 2020-07-15 16:27:00 Sanjuanita Lerma MD GLUCOSE, RANDOM 2020-07-15 16:27:00 Sanjuanita Lerma MD LACTATE DEHYDROGENASE 2020-07-15 16:27:00 Sanjuanita Lerma MAGNESIUM LEVEL 2020-07-15 16:27:00 Sanjuanita Lerma MD PHOSPHORUS LEVEL 2020-07-15 16:27:00 Sanjuanita Lerma MD PROSTATE SPECIFIC ANTIGEN 2020-07-15 16:27:00 Sanjuanita Lerma MD TESTOSTERONE LEVEL 2020-07-15 16:27:00 Sanjuanita Lerma MD on TOTAL PROTEIN 2020-07-15 16:27:00 Sanjuanita Lerma MD VITAMIN D 25 HYDROXY LEVEL 2020-07-15 16:27:00 Sanjuanita Lerma SERUM CREATININE 2020-07-15 16:27:00 Sanjuanita Lerma MD .GLOMERULAR FILTRATION 2020-07-15 16:27:00 Sanjuanita Lerma MD RATE Results CBC 2020-07-15 16:27:00 Sanjuanita Lerma MD MANUAL DIFFERENTIAL 2020-07-15 16:27:00 Sanjuanita Lerma MD EXTERNAL PROVIDER RECORDS 2019-10-04 05:01:00 Doctor Unassigned, [facility] Name [facility] EXTERNAL PROVIDER RECORDS 2019-10-03 05:01:00 Doctor Unassigned, [facility] Name [facility] EXTERNAL PROVIDER RECORDS 2019-09-28 05:01:00 Doctor Unassigned, [facility] SURGICAL PATHOLOGY EXAM 2019-09-14 15:52:00 Pako Lopez [facility] HUMAN MACHINE INTERFACE ENGINEER CLINIC ULTRASOUND 2019-09-14 05:01:00 Doctor Valeriy [facility] [place] PROSTATIC SPECIFIC ANTIGEN 2019-09-03 21:05:00 Pako Lopez [facility] URINE CULTURE 2019-09-03 21:05:00 Pako Lopez [facility] DISCLOSURE AND CONSENT, Doctor Unasschidi [facility] MEDICAL AND SURGICAL [facility] PROCEDURES Plan of Care Planned Activity Planned Date Details Comments Source Future Scheduled Test 2020-07-26 00:00:00 COVID-19 Vaccination (2 MD Skip - Booster for Kendra series) [code = COVID-19 Vaccination (2 - Booster for Kendra series)] Encounters Start End Encounter Admission Attending Care Care Encounter Source Date/Time Date/Time Type Type Clinicians Facility Department ID 2020-10-31 2020-10-31 Outpatient GILMA MORENO [facility] MDA [id number] 11:32:23 11:32:23 AUBREY Acosta so n 2020-10-27 2020-10-27 Outpatient GILMA FRIED MDA MDA [id number] 15:24:16 16:01:02 JORJE zhengo n 2020-10-17 2020-10-17 Outpatient GILMA ALDRICHOKYASH MDA [id number] 12:53:40 23:59:00 ERWIN Nathan o n 2020-10-16 2020-10-16 [facility] [id number] 12:10:00 23:59:00 ERWIN Nathan o n 2020-10-15 2020-10-15 Outpatient GILMA ALDRICHOK [facility] MDA [id number] 12:30:00 23:59:00 ERWIN Nathan o n 2020-10-14 2020-10-14 Outpatient GILMA ALDRICHOK [facility] MDA [id number] 11:21:52 23:59:00 ERWIN Nathan o n 2020-10-13 2020-10-13 Outpatient [facility], MDA MDA [id number] MD 12:26:36 23:59:00 ERWIN Nathan o n 2020-10-10 2020-10-10 Outpatient [facility], MDA MDA [id number] MD 11:40:24 23:59:00 ERWIN Nathan o n 2020-10-09 2020-10-09 Outpatient [facility], MDA MDA [id number] MD 11:40:00 23:59:00 ERWIN Nathan o n 2020-10-08 2020-10-08 Outpatient [facility], MDA MDA [id number] MD 12:05:00 23:59:00 ERWIN Nathan o n 2020-10-08 2020-10-08 Outpatient [facility], MDA MDA [id number] MD 10:15:00 12:04:00 BOONE-BRANDEN Bernard rso n 2020 2020 Outpatient [facility], MDA MDA [id number] MD 11:55:00 23:59:00 ERWIN Nathan o n 2020 2020 Outpatient [facility], MDA MDA [id number] MD 09:55:27 11:49:27 HAILY And erso n 2020-10-06 2020-10-06 Outpatient [facility], MDA MDA [id number] MD 11:30:00 23:59:00 ERWIN Nathan o n 2020-10-03 2020-10-03 Outpatient [facility], MDA MDA [id number] MD 10:08:21 23:59:00 ERWIN Nathan o n 2020-10-01 2020-10-01 Outpatient [facility], MDA MDA [id number] MD 10:14:10 23:59:00 BOONE-BRANDEN Bernard rso n 2020-09-30 2020-09-30 Outpatient [facility], MDA MDA [id number] MD 11:27:01 23:59:00 ERWIN Nathan o n 2020-09-29 2020-09-29 Outpatient [facility], MDA MDA [id number] MD 11:30:00 23:59:00 ERWIN Nathan o n 2020-09-26 2020-09-26 Outpatient [facility], MDA MDA [id number] MD 12:00:00 23:59:00 ERWIN Nathan o n 2020-09-25 2020-09-25 Outpatient [facility], MDA MDA [id number] MD 11:50:00 23:59:00 ERWIN Nathan o n 2020-09-24 2020-09-24 Outpatient [facility], MDA MDA [id number] MD 11:07:31 23:59:00 ERWIN Nathan o n 2020-09-24 2020-09-24 Outpatient [facility], MDA MDA [id number] MD 10:15:00 11:06:00 DEDE Wagner rso n 2020-09-24 2020-09-24 Outpatient [facility], MDA MDA [id number] MD 10:00:00 10:14:00 ERWIN Nathan o n 2020-09-24 2020-09-24 Outpatient [facility], MDA MDA [id number] MD 08:56:38 09:14:00 ERWIN Nathan o n 2020-09-23 2020-09-23 Outpatient [facility], MDA MDA [id number] MD 12:01:45 23:59:00 ERWIN Nathan o n 2020-09-22 2020-09-22 Outpatient [facility], MDA MDA [id number] MD 13:23:44 23:59:00 ERWIN Nathan o n 2020-09-22 2020-09-22 Outpatient [facility], MDA MDA [id number] MD 12:16:14 13:22:00 ERWIN Nathan o n 2020-09-19 2020-09-19 Outpatient [facility], MDA MDA [id number] MD 12:00:00 23:59:00 ERWIN Nathan o n 2020-09-18 2020-09-18 Outpatient [facility], MDA MDA [id number] MD 12:00:00 23:59:00 ERWIN Nathan o n 2020-09-17 2020-09-17 Outpatient [facility], MDA MDA [id number] MD 11:01:21 23:59:00 ERWIN Nathan o n 2020-09-17 2020-09-17 Outpatient [facility], MDA MDA [id number] MD 10:15:00 11:00:00 BOONE-BRANDEN Bernard rso n 2020-09-16 2020-09-16 Outpatient [facility], MDA MDA [id number] MD 12:07:04 23:59:00 ERWIN Nathan o n 2020-09-12 2020-09-12 Outpatient [facility], MDA MDA [id number] MD 12:40:00 23:59:00 ERWIN Nathan o n 2020-09-11 2020-09-11 Outpatient [facility], MDA MDA [id number] MD 12:40:00 23:59:00 ERWIN Nathan o n 2020-09-10 2020-09-10 Outpatient [facility], MDA MDA [id number] MD 12:35:00 23:59:00 ERWIN Nathan o n 2020-09-10 2020-09-10 Outpatient [facility], MDA MDA [id number] MD 10:10:54 12:34:00 BOONE-BRANDEN Bernard rso n 2020-09-09 2020-09-09 Outpatient [facility], MDA MDA [id number] MD 12:50:00 23:59:00 ERWIN Nathan o n 2020-09-08 2020-09-08 Outpatient [facility], MDA MDA [id number] MD 12:40:00 23:59:00 ERWIN Nathan o n 2020-09-05 2020-09-05 Outpatient [facility], MDA MDA [id number] MD 12:35:00 23:59:00 ERWIN Nathan o n 2020-09-04 2020-09-04 Outpatient [facility], MDA MDA [id number] MD 12:35:00 23:59:00 ERWIN Nathan o n 2020-09-03 2020-09-03 Outpatient [facility], MDA MDA [id number] MD 11:45:56 23:59:00 ERWIN Nathan o n 2020-09-03 2020-09-03 Outpatient [facility], MDA MDA [id number] 10:45:00 11:44:00 DEDE Wagner rso n 2020-09-02 2020-09-02 [facility] MDA MDA [id number] 10:15:00 23:59:00 ERWIN santacruz 2020-09-01 2020-09-01 Outpatient [facility], MDA MDA [id number] 11:30:00 23:59:00 ERWIN santacruz 2020-04-06 2020-04-06 Patient [facility] [id number] 00:00:00 00:00:00 Outreach [facility] [id number] i ty [id number] [phone] [address] 2020-02-13 2020-02-13 [facility]patient [facility] MDA MDA [id number] 11:48:27 16:35:54 ERWIN santacruz 2020-02-13 2020-02-13 Outpatient SAM[facility], MDA MDA [id number] 14:24:42 14:24:42 SANJUANITA santacruz 2020-02-13 2020-02-13 Outpatient MDA MDA [id number] 11:45:49 11:46:05 Nathan santacruz 2020-02-11 2020-02-11 [facility] MDA MDA [id number] 10:30:46 10:59:09 ERWIN santacruz 2019-12-14 2019-12-14 Telephone [facility] ..[id number] Univers 00:00:00 00:00:00 [facility] [place] [id number] [id number] [id number] [place] [address] Branch Office Building 2019-11-26 2019-11-26 [facility] [id number] Univers 00:00:00 00:00:00 [facility] [place] [id number] [id number] [phone] [facility] [address] 2019-11-16 2019-11-16 Telephone [facility] 1.2.840.114 [id number] Univers 00:00:00 00:00:00 [facility] [id number] [id number] [phone] [facility] [address] 2019-11-14 2019-11-14 Telephone Pako Lopez [facility] [id number] Univers 00:00:00 00:00:00 [facility] [id number] [id number] [id number] [address] Office Building 2019-10-11 2019-10-24 Office [facility] [id number] Univers 13:15:19 09:14:14 Visit [facility] [id number] [id number] [phone] [address] Office [facility] 2019-10-24 2019-10-24 Telephone [facility] 1.2.840.114 [id number] Univers 00:00:00 00:00:00 [facility] [id number] [id number] [id number] [address] Office [facility] 2019-10-24 2019-10-24 Patient Thai Silver 1.2.840.114 [id number] Univers 00:00:00 00:00:00 Outreach Jaclyn E Diaz [id number] i ty [id number] [phone] [address] 2019-10-24 2019-10-24 Patient Richardson Petra Thai 1.2.840.114 [id number] Univers 00:00:00 00:00:00 Outreach E Diaz [id number] i [id number] [id number] [address] 2019-10-24 2019-10-24 Telephone Lopez, [facility] 1.2.840.114 [id number] Univers 00:00:00 00:00:00 [facility] [id number] [id number] [id number] [address] Office Building 2019-10-23 2019-10-23 Telephone Lopez, [facility] 1.2.840.114 [id number] Univers 00:00:00 00:00:00 [facility] [id number] [id number] [id number] [address] Office Building 2019-10-22 2019-10-22 Telephone Lopez [facility] 1.2.840.114 [id number] Univers 00:00:00 00:00:00 [facility] [id number] [id number] [id number] [address] Office Building 2019-10-19 2019-10-19 Telephone Lopez [facility] 1.2.840.114 [id number] Univers 00:00:00 00:00:00 [facility] [id number] [id number] [id number] [address] Office [facility] 2019-10-18 2019-10-18 Outpatient R LOPEZ, [facility] [id number] Univers 14:00:00 14:00:00 ity [facility] 2019-10-11 2019-10-11 Outpatient R LOPEZ, [facility] [id number] Univers 13:00:00 13:00:00 ity [facility] 2019-10-11 2019-10-11 Outpatient R LOPEZ, [facility] [id number] Univers 13:00:00 13:00:00 ity [facility] 2019-10-04 2019-10-04 Telephone LopezPako [facility] 1.2.840.114 [id number] Univers 00:00:00 00:00:00 Shun RAHAT [id number] it y of [facility] [id number] [place] as [phone] [address] 2019-10-04 2019-10-04 Orders Doctor KYE 1.2.840.114 [id number] Univers 00:00:00 00:00:00 Only Unassigned, RAHAT [id number] ity of [facility] [id number] [place] as [id number] [address] 2019-10-03 2019-10-03 Outpatient R JOHN [facility] [id number] Univers 08:00:00 08:00:00 ity of [facility] 2019-10-03 2019-10-03 Telephone [facility] 1.2.840.114 [id number] Univers 00:00:00 00:00:00 [facility] [id number] it y of [facility] [id number] [phone] [address] Office Building 2019-10-03 2019-10-03 Orders Doctor KYE 1.2.840.114 [id number] Univers 00:00:00 00:00:00 Only Unassigned, RAHAT [id number] ity of [facility] [id number] [place] [id number] [address] 2019-09-28 2019-09-28 Orders Doctor KYE 1.2.840.114 [id number] Univers 00:00:00 00:00:00 Only Unassigned, RAHAT [id number] ity of [facility] [id number] [place] [phone] [address] 2019-09-23 2019-09-23 Refill [facility] 1.2.840.114 [id number] Univers 00:00:00 00:00:00 un Health [id number] it y of [facility] [id number] [id number] [address] Office Building 2019-09-21 2019-09-21 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 Draw, [facility] 1.2.8 40.114 [id number] Univers 12:13:57 12:28:57 Visit Pako Lopez [facility] [id number] .[id number] ity of [id number] [phone] [address] Office Building 2019-09-21 2019-09-21 Office [facility] 1.2.840.114 [id number] Univers 11:04:12 11:34:12 Visit [facility] [id number] [id number] [id number] [address] Office Building 2019-09-21 2019-09-21 Outpatient R LOPEZ, [facility] [id number] Univers 10:30:00 10:30:00 ity [facility] 2019-09-21 2019-09-21 Outpatient R LOPEZ, [facility] [id number] Univers 10:30:00 10:30:00 ity of [facility] 2019-09-21 2019-09-21 Telephone Pako Lopez 1.2.840.114 [id number] Univers 00:00:00 00:00:00 Shun RAHAT [id number] it y of [facility] [id number] [place] [phone] [address] 2019-09-21 2019-09-21 Telephone John [facility] 1.2.840.114 [id number] Univers 00:00:00 00:00:00 [facility] [id number] [id number] [phone] [address] Office Building 2019-09-18 2019-09-18 Telephone Pako Lopez 1.2.840.114 [id number] Univers 00:00:00 00:00:00 Shun RAHAT 350.1.13.10 it y of [facility] [id number] [place] as [phone] [address] 2019-09-18 2019-09-18 Telephone Pako Lopez 1.2.840.114 [id number] Univers 00:00:00 00:00:00 Shun RAHAT 350.1.13.10 it y of [facility] [id number] [place] [phone] [address] 2019-09-14 2019-09-14 Office Lopez, [facility] 1.2.840.114 [id number] Univers 09:53:55 10:46:20 Visit [facility] [id number] it y of [facility] 4.2.7.2.686 [place] s Martin [phone] [address] Office Building 2019-09-14 2019-09-14 Outpatient R LOPEZ, [facility] [id number] Univers 10:00:00 10:00:00 ity [facility] 2019-09-14 2019-09-14 Outpatient R LOPEZ, [facility] [id number] Univers 10:00:00 10:00:00 ity of [facility] 2019-09-14 2019-09-14 Orders Doctor KYE 1.2.840.114 [id number] Univers 00:00:00 00:00:00 Only Unassigned, RAHAT 350.1.13.10 [facility] 4.2.7.2.686 [place] as [phone] [address] 2019-09-07 2019-09-07 Outpatient R LOPEZ, [facility] [id number]-20 Univers 08:00:00 08:00:00 [id number] ity [facility] 2019-09-07 2019-09-07 Outpatient R LOPEZ, [facility] [id number] Univers 08:00:00 08:00:00 ity [facility] 2019-09-03 2019-09-06 Office Lopez, [facility] [id number] Univers 15:04:24 10:34:22 Visit [facility] 350.1.13.10 it y of [facility] 4.2.7.2.[place] [phone] [address] Office Building 2019-09-05 2019-09-05 Patient Doctor KYE 1.2.840.114 [id number] Univers 00:00:00 00:00:00 Secure Msg Unassigned, RAHAT 350.1.13.10 ity of Datil [facility] 4.2.7.2.686 [place] as [phone] [place] [address] [address] 2019-09-03 2019-09-03 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 Draw, [facility] 1.2.8 40.114 [id number] Univers 16:05:21 16:20:21 Visit Pako Lopez [facility] 350.1.13 .10 ity of [place] [phone] [address] Office Building 2019-09-03 2019-09-03 Outpatient R [facility] [id number] Univers 16:15:00 16:15:00 [id number] ity [facility] 2019-09-03 2019-09-03 Outpatient R PAKO LOPEZ [facility] [id number] Univers 15:00:00 15:00:00 ity [facility] Orders Doctor FISHMAN 1.2.840.114 [id number] Univers 00:00:00 00:00:00 Only Unassigned, RAHAT 350.1.13.10 ity of Datil [facility] 4.2.7.2.686 [place] as [phone] [address] Results Test Description Test Time Test Comments Results Result Comments Source Urine Culture 2020-09-01 03:02:02 Test Item Value Reference Range Interpretation Comme nts Final Report (test code = 8488) No growth Path Review - Urine (test code = The results have been reviewed and 8483) electronically signed by Pathologist:TIM BURNETT MD #[id number] [facility] Interpretation Antibody Screen Rfrplmfv0521-36-75 13:45:15 Test Item Value Reference Range Interpretation Comments TMP Auto Neg At the present ABSC Interp time, patient (test code = plasma shows no ____JOSETTE ADAMS 7535) evidence of RBC HAO CASILLAS MD alloantibodies. - [id number] esteban by: JOSETTE RAMIREZ MD - [id number] Date/Time: 08.13 8:45 AM CDT Transcribed Bob e/Time: 08.31.2020 8:45 AM CDTElectronical ly Signed By: JOSETTE RAMIREZ MD - [id number] on 8:45 AM C MD ValdiviaAntibody Jtxqiy5459-17-48 01:37:49 Test Item Value Reference Range Interpretation Comments ABSC. (test code = 890-4) Negative ABSC MD ValdiviaDmnkwzpdXQHRo4304-57-55 01:37:48 Test Item Value Reference Range Interpretation Comments ABORh. (test code = 882-1) O POS MD ValdiviaClot Expiration [id number] 01:37:44 Test Item Value Reference Range Interpretation Comments T & S Expiration (test code = 09/02/2020 5318) MD ValdiviaSnbwcilpSMD2369-48-20 23:09:49 Test Item Value Reference Range Interpretation Comments TSH (test code = 1.51 See_Comment [Automated message] The 7578) system which ge nerated this result transmit esteban reference range : 0.27 - 4.20 mcunit/mL. The reference range was not used to interpr et this result as cuate l/abnormal. MD ValdiviaFrnarciso [id number] 23:09:48 Test Item Value Reference Range Interpretation Comments T4 Free (test code = 7502) 1.77 ng/dL 0.93-1.70 H Lab Interpretation (test code = Abnormal 83677-2) MD ValdiviaInfluenza A/B + COVID-19 Asymptomatic- [id number] 22:53:14 Test Item Value Reference Range Interpretation Comments COVID19 Not Detected Not Detected (SARS-CoV-2) (test code = 28282-5) Influenza A (test Not Detected Not Detected code = 28727-1) Influenza B (test Not Detected Not Detected code = 76992-6) COVID19 SARS Inpatient Indication (test Admission code = 53908) Inf AB+Cov19 See Note The walter SARS- CoV-2 Comment (test & Influenza A/ B code = 91856) nucleic acid t est for use on the mu s Rachel System is a Super Clean Jobs[employer]lex real-time RT-PC R assay intended for the [...] sheet for patie nts provided by the zipper trimmer hand ([employer]) can be rev iewed at: https://www.[employer] .gov/Signicat edia/487805/priscila nloadA fact sheet for Health Care providers is provided by the zipper trimmer hand ([employer], [employer]) and can be reviewed at: https://www.[employer] .gov/m edia/286522/priscila nload Influenza A and Influenza B neg [...] This assay has been authorized by t [facility] for use only un ranjith Emergency Use Authorization ( EUA) in laboratories that have been CLIA-certified to perform moderate-comple xity and high-comple xity tests. The Microbiology Laboratory at [facility] [place], CLIA Accreditation #[id number] and CAP Accreditation #[id number], verif ied the performance characteristics of this assay. Int ernal controls are us ed to monitor all sta ges of the test proces s. MD ValdiviaPartial Thromboplastin [id number] 22:52:55 Test Item Value Reference Range Interpretation Comments aPTT (test code = 31.4 See_Comment [Automate d message] The 6406) system which ge nerated this result transmit esteban reference range : 24.7 - 36.8 second(s). The reference range was not used to interpr et this result as cuate l/abnormal. MD ValdiviaProthrombin Time with [id number] 22:52:54 Test Item Value Reference Range Interpretation Comments PT (test code = 6746) 13.3 See_Comment [Auto mated message] The system which ge nerated this result transmit esteban reference range : 11.5 - 13.9 second(s). The reference range was not used to interpr et this result as cuate l/abnormal. INR (test code = 1.08 0.90-1.10 5973) MD ValdiviaFractionated Jdrfsffyg8902-67-01 22:37:55 Test Item Value Reference Range Interpretation [...] 28 g/L. [Automate d message] The system [employer] h generated this result transmitted ref erence [...] outside rep ortable range MD ValdiviaGlomerular Filtration [id number] 22:37:54 Test Item Value Reference Range Interpretation Comments eGFR-AA (test code 100 See_Comment Normal eG FR: >= 60 = 8062) mL/min/1.73 m2N ote: The eGFR is calculated u sing the CKD-EPI equatio n. The eGFR declines with a ge. eGFR <60 mL/min/1.73 m2 is considered as "decreased". This equation should only be used for patients 18 and older. According to e National Kidney Foundati on's Kidney Disease [...] failure <15 [Automa esteban message] The system Demibook[employer] generated this result tra nsmitted reference range [...] failure <15 [Automa esteban message] The system [employer] generated this result tra nsmitted reference range : >=60 mL/min/1.73 sq. m. The reference range was not used to interpret th is result as normal/abnormal . MD ValdiviaUric [id number] 22:37:53 Test Item Value Reference Range Interpretation Comments Uric Acid (test code = 7955) 3.1 mg/dL 3.4-7.0 L Lab Interpretation (test code = Abnormal 05839-2) MD ValdiviaTotal Xgreoxp7328-90-28 22:37:52 Test Item Value Reference Range Interpretation Comments Total Protein (test code = 7649) 6.4 g/dL 6.4-8.3 MD ValdiviaMagnesium Zdvtl1423-22-85 22:37:49 Test Item Value Reference Range Interpretation Comments Magnesium (test code = 6359) 2.0 mg/dL 1.6-2.6 MD ValdiviaPhosphorus [id number] 22:37:48 Test Item Value Reference Range Interpretation Comments Phosphorus (test code = 6817) 4.0 mg/dL 2.5-4.5 MD ValdiviaAlkaline Tolwkbplyld7091-65-01 22:37:47 Test Item Value Reference Range Interpretation Comments Alk Phos (test code = 4768) 76 U/L 40-129 MD ValdiviaCalcium Cnxaf9686-07-99 22:37:46 Test Item Value Reference Range Interpretation Comments Calcium Lvl (test code = 5258) 9.3 mg/dL 8.4-10.2 MD ValdiviaAjsjghhlHBS0440-42-87 22:37:45 Test Item Value Reference Range Interpretation Comments ALT (test code = 18 U/L See_Comment [Automated message] The 9654) system which ge nerated this result transmit esteban reference range : <=41. The reference range was not used to interpr et this result as cuate l/abnormal. MD ValdiviaAlbumin Gwiau0361-58-63 22:37:44 Test Item Value Reference Range Interpretation Comments Albumin Lvl (test code 3.9 See_Comment [Aut omated message] The = 5678) system which ge nerated this result tra nsmitted reference range : 3.5 - 5.2 gm/dL. The refe rence range was not used to interpret this result as normal/abnormal . MD Valdivia.Serum Klciwerqgq6378-87-89 22:37:43 Test Item Value Reference Range Interpretation Comments Creatinine (test code = 5399) 0.77 mg/dL 0.67-1.17 MD ValdiviaAspartate Xxpgrbfbwdqraqia3092-74-92 22:37:42 Test Item Value Reference Range Interpretation Comments AST (test code = 17 U/L See_Comment [Automated message] The 9483) system which ge nerated this result transmit esteban reference range : <=40. The reference range was not used to interpr et this result as cuate l/abnormal. MD ValdiviaDdsgehfdPNY3448-41-92 22:37:41 Test Item Value Reference Range Interpretation Comments BUN (test code = 5055) 14 mg/dL 6-23 MD ValdiviaElectrolyte Borsj4299-70-57 22:37:40 Test Item Value Reference Range Interpretation Comments Sodium Lvl (test code = 139 See_Comment [Au tomated message] The 7303) system which ge nerated this result tra [...] = 102 See_Comment [Auto mated message] The 6172) system which ge nerated this result tra [...] = 10 See_Comment [Aut omated message] The 9343) system which ge nerated this result tra nsmitted reference range : 4 - 14 mEq/L. The refe rence range was not u sed to interpret this result as normal/abnormal . MD ValdiviaGlucose Lgnaw1293-54-85 22:37:38 Test Item Value Reference Range Interpretation [...] diabetes Lab Interpretation (test Abnormal code = 47086-1) MD ValdiviaQyppmxxaZhttka2021-06-36 22:33:18 Test Item Value Reference Range Interpretation Comments Lipase Lvl (test code = 6165) 17 U/L 13-60 MD ValdiviaFeugjxlfFzgptcx8509-22-14 22:33:17 Test Item Value Reference Range Interpretation Comments Amylase Lvl (test code = 4806) 96 U/L 28-100 [facility] Troponin [id number] 22:24:38 Test Item Value Reference Range Interpretation Comments POC CTNI (test 0.00 ng/mL 0.00-0.08 This cTnI john t is code = 75715-8) performed by the Ldanp-ux-Ytsz a nalyzer method,and the result may be [...] immunosorbent a ssay (SNEHA) method. Antibodies spec [facility] cardiac t roponin I (cTnI) [...] = 6672) Performing Lab [facility] [place] [facility] (test code = [facility] [address]) Clinical Lab, [address], [place], [place] [address]; Central Office Worker: MD MD Skip RauschDifferential2021-06-19 22:08:26 Test Item Value Reference Range Interpretation Comments Neutrophil % (test code = 71.7 % 42.0-66.0 H 24876-0) Lymphocyte % (test code = 16.2 % 24.0-44.0 L 737-7) Monocyte % (test code = 8.6 % 2.0-7.0 H 744-3) Eosinophil % (test code = 2.5 % 1.0-4.0 713-8) Basophil % (test code = 0.4 % 0.0-1.0 707-0) IGRE % (test code = 0.6 % 0.0-0.4 H IGRE % c ount 85526-2) includes Metamyelocytes, Myelocytes, and Promyelocytes. Neutrophil Abs (test code 3.50 K/uL 1.70-7.30 = 753-4) Lymphocyte Abs (test code 0.79 K/uL 1.00-4.80 L = 732-8) Monocyte Abs (test code = 0.42 K/uL 0.08-0.70 743-5) Eosinophil Abs (test code 0.12 K/uL 0.04-0.40 = 712-0) Basophil Abs (test code = 0.02 K/uL 0.00-0.10 705-4) IG Abs (test code = 0.03 K/uL 0.00-0.04 46403-0) Lab Interpretation (test Abnormal code = 86622-9) MD Valdivia.MFJ9766-76-42 22:08:23 Test Item Value Reference Range Interpretation Comments WBC (test code = 4.9 K/uL 4.0-11.0 6690-2) RBC (test code = 789-8) 3.82 See_Comment L [Au tomated message] The system Demibooks generated this result transmitted ref erence range: 4.50 - 6 .00 M/uL. The refer ence range was not u sed to interpret this result as normal/abnor mal. Hgb (test code = 718-7) 11.6 See_Comment L [Au tomated message] The system Demibook[employer] generated this result transmitted ref erence range: [...] See_Comment [Automate d message] 786-4) The system Demibook[employer] generated this result transmitted ref erence range: 31.0 - 3 6.0 gm/dL. The refe rence range was not u sed to interpret this result as normal/abnor mal. RDW-SD (test code = 45.1 fL 35.1-46.3 79468-4) RDW-CV (test code = 13.4 % 12.0-15.5 [...] cell differential. [Automated mess age] The system Demibooks generated this result transmitted ref erence range: <=0.0. T he reference range was not used to int erpret this result as normal/abnormal . Lab Interpretation Abnormal (test code = 03808-8) [facility] Glucose [id number] 21:51:17 Test Item Value Reference Interpretation Comments Range POC Glucose (test 106 mg/dL 70-99 H Capillary blood code = 20460-0) samples, e.g . obtained by fingerstick, ma [...] Capillary code = 9554) Performing Lab (test [facility] [place] code = 22457) [facility] Cli nical Lab, [address] [place] [address]; Central Office Worker: Nancie Stafford MD Lab Interpretation Abnormal (test code = 39871-7) MD Rock Culture- Upkzzmpcif4423-91-38 22:41:02 Test Item Value Reference Range Interpretation Comments Final Report (test No growth code = 8488) Path Review - Immunity and antibiotic Bottle/Isolator use may render culture (test code = 8499) negative. Ongoing infection requires repeat culture.The results have been reviewed and electronically signed by Pathologist:TIM BURNETT MD #[id number] [place] (test code = Short draw may invalidate BEVERLEY) quantitative blood culture results.08/21/2020 1:52:33 PM CDT MD ValdiviaUrinalysis with Cpbprmxmiic8014-44-71 18:18:59 Test Item Value Reference Range Interpretation [...] the implementation of new instrumentation in the [facility] [place], allowing greater sensitivity of measurement. Urinalysis results reported by the [facility] using existing instrumentation, as well as Urinalysis testing performed manually or by backup methodology at the [facility] [place] will remain relatively unchanged. New reporting parameters and units will now be reported for all campuses. MD ValdiviaUrinalysis w/Microscopic if Rwnyfbbcd5244-52-80 18:14:16 Test Item Value Reference Range Interpretation [...] NEG Lab Interpretation (test code = Abnormal 04291-9) MD ValdiviaTrrigoberto Jack (In-House)2020-08-22 05:25:59 Test Item Value Reference [...] res ults. [Automated mess age] The system Demibooks generated this result transmitted ref erence range: <=18. Th e reference range was not used to int erpret this result as normal/abnormal . Lab Interpretation Abnormal (test code = 74044-4) MD ValdiviaRespiratory Viral Panel + COVID-19, Nasopharyngeal Xvyf7866-40-24 19:12:52 Test Item Value Reference Range Interpretation Comments Adenovirus (test code = Not Detected Not Detected 6798) Coronavirus 229E (test Not Detected Not Detected code = 5349) Coronavirus HKU1 (test Not Detected Not Detected code = 6430) Coronavirus NL63 (test Not Detected Not Detected code = 5351) Coronavirus OC43 (test Not Detected Not Detected code = 5352) COVID19 (SARS-CoV-2) Not Detected Not Detected (test code = 73735-1) Human Metapneumovirus Not Detected Not Detected (test [...] Detected Not Detected Parapertussis (test code = 48621) Bordetella pertussis Not Detected Not Detected (test [...] including SARS-CoV-2, from a single nasopharyngeal swab (ROOF FIXER) specimen. Specifically, the SARS-CoV-2 primers contained in [...] and high-complexity tests. The Microbiology Laboratory at [facility], CLIA Accreditation #[id number] and CAP Accreditation #[id number], verified the performance characteristics of this assay. Microbiology Laboratory at [facility] performs the assay using the YapTime System. Internal controls are used to monitor all stages of the test process. MD Leal Yhkba2751-59-75 18:16:36 Test Item Value Reference Range Interpretation Comments D-Dimer (test code 0.30 See_Comment The cut o ff value for = 5419) exclusion of ve nous thromboembolism is <0.51 mcg/mL FEUs (fibrinoge n equivalent units). [Autom ated message] The system Demibooks generated this result tra nsmitted reference range : 0.10 - 0.50 mcg/ml FEU. The reference range was not u sed to interpret this result as normal/abnormal . MD ValdiviaXkqlwzwbYrzbmihaem6450-81-98 18:16:23 Test Item Value Reference Range Interpretation Comments Fibrinogen (test code = 5610) 324 mg/dL 214-503 MD ValdiviaPO Chem 8 without Hemoglobin and Pddcnrvyql1973-99-12 18:08:40 Test Item Value Reference Range Interpretation Comments POC NA (test code = 140 See_Comment [Automa esteban message] 03635-1) The system Demibooks generated this result transmitted ref erence range: 138 - 14 6 mEq/L. The refe rence range was not u sed to interpret this result as normal/abnor mal. POC K (test code = 3.6 See_Comment Method de scription: 14645-8) The i-STAT is a n analyzer used f or in vitro quantific ation of various anal ytes in whole blood. The device uses a s kira disposable cart ridge which contains microfabricated sensors, a calibration elaine ution, fluidics system , and a waste chamber . Each test cartridge contains chemic ally sensitive biose nsors on a ZENTICKET ip that are config ured to perform [...] See_Comment [Automa esteban message] 2068-05) The system Demibooks generated this result transmitted ref erence range: 98 - 109 mEq/L. The refe rence range was not u sed to interpret this result as normal/abnor mal. POC VTCO2 (test code 26 See_Comment [Autom ated message] = 2026-03) The system Demibooks generated this result transmitted ref erence range: 24 - 29 mEq/L. The reference r laurel was not used to interpret this result as normal/abnor mal. POC Anion Gap (test 19 mmol/L 12-31 code = 22759) POC BUN (test code = 14 mg/dL - 6299-2) POC Crea (test code 0.9 mg/dL 0.6-1.3 Medicati ons, = 66932-3) especially hydroxyurea or supplements, michael ch as [...] chemic ally sensitive biose nsors on a ZENTICKET ip that are config ured to perform spec ific tests. The microfabricated sensors measure analyte concent ration by an electroch emical assay. POC eGFR-AA (test 94 See_Comment Normal eGF R >= 60 code = 46839-1) mL/min/1.73 m2 The eGFR is calcula esteban [...] f ailure <15 (or lester lysis) [Automated [employer]] The system Demibooks generated this result transmitted ref erence range: >=60 mL/min/1.73 m2. The reference range was not used to int erpret this result as normal/abnormal . POC eGFR-DARIEN (test 82 See_Comment Normal eG FR >= 60 code = 74350-6) mL/min/1.73 m2 The eGFR is calcula esteban [...] f ailure <15 (or lester lysis) [Automated [employer]] The system Demibooks generated this result transmitted ref erence range: >=60 mL/min/1.73 m2. The reference range was not used to int erpret this result as normal/abnormal . POC Glucose (test 115 mg/dL 70-99 H code = 30150-8) POC Ion Ca (test 1.13 mmol/L 1.12-1.32 code = 12073-0) POC Sample Type Venous (test code = 6690) POC Clean Dev (test Yes code = 6672) Performing Lab (test [facility] code = 07554) [facility] Skip Cli nical Lab, [address], [facility] [place] [address]; Central Office Worker: Nancie Stafford MD Lab Interpretation Abnormal (test code = 41406-9) [facility] VBG+Aqm5730-79-11 18:08:38 Test Item Value Reference Range Interpretation Comments POC VB pH (test 7.40 7.31-7.41 code = 6719) POC VB pCO2 (test 46 See_Comment [Automate d message] code = 6718) The system ic h generated this result transmitted ref erence range: 41 - 51 mmHg. The reference r laurel was not used to interpret this result as normal/abnor mal. POC VB pO2 (test 43 mmHg code = 6720) POC VB TCO2 (test 29 See_Comment [Automate d message] code = 2026-03) The system ich generated this result transmitted ref erence range: 24 - 29 mEq/L. The reference r laurel was not used to interpret this result as normal/abnor mal. POC VB Bicarb 28 mmol/L 23-28 (test code = 18125-6) POC VB Base Ex 3 mmol/L -2-3 [...] (test code = 6672) Performing Lab [facility] (test code = [facility] [address]) Clinical Lab, [address] [facility], [place], [place] [address]; Central Office Worker: MD MD Skip RauschLDH2021-06-10 18:07:09 Test Item [...] or equal to 10.00 mg/L. MD ValdiviaCardiac Aquyi8281-44-65 17:57:45 Test Item Value Reference Range Interpretation Comments CK (test code = 5206) 102 U/L 39-308 CK MB (test code = 3.2 ng/mL See_Comment [Automat ed message] 5209) The system Demibooks generated this result transmitted ref erence range: [...] res ults. [Automated mess age] The system Demibooks generated this result transmitted ref erence range: <=18. Th e reference range was not used to int erpret this result as normal/abnormal . Lab Interpretation Abnormal (test code = 11637-5) MD ValdiviaPathology Biopsy Rvashwvuijxaxt7942-02-30 21:46:00 Test Item Value Reference Range Interpretation Comments Submitted Clinical History z5edmKXzEQVui2liXBH (test code = 16773) mbGFuZzEwMzNcZnRuYm pcdWMxIHtccnRmMVxzc 0GiK4JzPaLvUJcekuNc XGRlZmxhbmcxMDMzXGZ 0bmJqXHVjMVxkZWZmMH gfVj3abJTdkQfeYrFfJ UKux1kypjBGltpfnCc6 a8zyMRErYsR8yAPgGKu iZ0tdohQraMAiHLGtBE n8fC65KPHpnK5goDVhU JbqheGxKoF0YSeuAKIk TjW4DYIssPUbRWAbQ9g yZWQwXGdyZWVuMFxibH IwUOI1hAggo1J6wOEmy GVldHtcZjBcZnMyMiBO q5QpMFp5wDotY1PoUVP eReR4oGVaDSPrPYmkZB QkKFDpqpY8wX93USuwy kN5yUJlo8Jbz59qi381 eH3urGYeBOT9RVHwTXG hrZMkKESrIAP4XIKsxS AxH7gxCNDbKL2rraajQ TweCVdbFNYuzUC0DOQe hOEjZ3QzVPUkMFiwNBY csub0NeCaTa0mqRIokL pkXIcmq7dah5bshHMeM ns3DSHpRiJuRbfkHGwf l8Usr6oeWWGjiu1aHOX 9aFAqgFeay0H2yXTyWX NlqXQiqbCeDTIeZbH9F ZupXP2itk29ZYRhYMB3 fb2skRJviBwggzPqoJF eVJbtV3NsSWNms223PC LlM9JnHOUqj9B8yzJpM oDaUTObhDL7beP7KGYc XGf5mTBslyI4gzMxqKJ gY7xupZ3qOPLgUA0xwc jvt4hgZFnyZTwpGXJkb CZ9zsO3NCQoaJVlD4Xy cX3pHJDnUDteOJXjmdu 5AoCcNs5fjUBnmPukNN xzYmtwYWdlXHBnbmNvb nRccGduZGVjXHBsYWlu XHBsYWluXGYwXGZzMjR oqElehJipzV6oEqNyTq PmLVqaRL7tJGGlF9hzy WTsZKVoPYStE5cvSkRk pU4kaOraJOulptDpXCX nGP6fL5ItU5xxl38cBM 9tWTLvy1I3AOTgSRuXY jFdXHBsYWluXGYxXGZz MjJcbGFuZzEwMzNcaGl jaFxmMVxkYmNoXGYxXG pkK9siJuNnRmRgGzjsX XJ9fQ== Diagnosis (test code = 34) g3nzoBTwDGKmwHN5RuC vHIVso6qpz3UqpNAzvL RsHQkllVNmoaVpno05f WU8vK70XN4jEADxFgZ5 LASgriK0Aeu2SXHdJYU puFLbC166d2thg7wxup ZvyQD3sSsfQBCfCTJwI IegEGLaLkIpBSmgO72d e31aHYPwV0LjUJczPua jE62zQRCjmSbaazN7Pg ajLrurtYO4HvrfAGKwe Et0BpLbiQwwJfJrTJMu tN4mfSUoaPQuu9NjNDw ptIdle70kgQnmdXgiwI hvaWQgYWdncmVnYXRlc a6jyYLaBT3abJYgc5Uv urIxn6csJvYeuQZnEJw bVRmhqZ4lKBMnfwESWq TMs3qtamjfWVIaRO1ng C5fWBZrFP4kNLKdjSws APJelE5jy7l6MJLywpc ckUyqGBxduU98BmCqRX CoeWwbmvthsE41gbSkQ QNpv69dCbOhfDEsVR0k gUNgf0EyquOae4izGkV xhJAlYIkjJGwwyV5gAK MdtwIVKlKDm9mgqpofn SFscfE9TLNrOSyqU10i IPSuqEphvlZ3UitaYjc aiDV4PgxcFOOrkPa0Pf BcbGluNzIwIEZyYWdtZ P94nhKgFsU4gMN0wNLy AEZqUX3saYBpsrfeFDa hHFWrWRUrDH2bb9daUV NvbGkuIFxwYXJcbGkwX FrglxFcsHMbQFI5DAYc wO1oKEHqQEKyWN7wsK5 fZJCdwR0ddE4lfYEjWQ u7WCTfgH7uv4v5HIGee ywwoUahKNdonD64UeFx InQlC96toaLgNZ0bCZC 2SqHdXKZiNAWgvh6eDV xkUW2oITPqiaIUwqPxh DAqkWWgs7NzeAeuELAj bGFzdGljIHBvbHlwKHM qXhTxrHRmUL2keAKxp4 ImidIll4sjOfUexAVnJ WunGMnfbT5jDUDdltKA GuNLn3tdrmpmi3lixV5 bMMrqSl5xJAQleOjoOQ TqvI2am4z5DLYbpkbtb QvySKeryB24DkDhCVag ZXJwbGFzdGljIHBvbHl bPjNgbBHuVU3zpIDbj1 WqegVsa4blKmNewJFuG MttYWypcB4gCPIyvhXH SiCGq6xyrvaonbNoqN7 ffQgfe2pdRILxRDPkiE Uzs1m1eQOvfWUiUBWml 3BzeTpccGFyXGxpNzIw XGxpbjcyMCBGcmFnbWV naLJqk1HcpJroJKUxcJ FzdGljIHBvbHlwKHMpL aDmhBYvOW5oiZXsr0Df qmPcz6peKcUacBLlYQR hclxwYXJkXHBhcn0= Gross Description (test t1mueMZbMHTufFRNHAH code = [id number]) wMVxhbnNpXHNwbHRwZ3 VonfntQJhuIN5lUY8tb EwezXGjcNVcYS6YSZLx ZmYxXHBhcGVydzEyMjQ nRXNznJRtmPM9BMJeEG 1hcmdsMTgwMFxtYXJnc gF6SXSmbSSeF1YuINWd PM9yroufGIY7XRtekB5 ytdXPTvuyWr4gjRNtfG tcZjFcZmNoYXJzZXQwX LIklQhjSBWbERy4tT5R EcyrSEQ1SGPYNekjGCA gJH8Bh3eaJTRuqVKtZV P3OZigwAFpQGNpNZMkG El2RLMlHNjjfGUnVX6f lQblKtcykQpdu5OmoOU cXGlkIDUxMDAyIFxcZG BxRM1HTyYxQBQyTAWtA cuxQJp2PXy8QB2NPtWy ICAgNDgxNzYxNSIgOTk 3BAznHS0UYOpfFNP4Nk m7ASD4ZZE8UYDsSOUwA iBcXGYgQXJpYWwgXFxm cyAxMCBcXGZiIFxcZmw kDXinC04fkAujqK0xYh bompJgIGT4TCNnsgFJQ lxwbGFpblxlcGljTmVz dERvYzEgDQpcbHRycGF yXGxpbjBccmluMCANCl xsdHJjaFxiXGZzMjAgQ 31tn17nHXDnS4JuGFyj TundR52aSLGuS8IpRKb lPwMxo1ikquFqsY1qqG BzIHggMjpcYjAgIENvb dWct9WpEC8nRYKstOYl DQDqVhTbsKnqv7EgDYU aBLvoDY95jmNvXHEddA SebpewPR80BHIxQLDsT 8iyKFCTtMf1APNpEAyx JN19fEGnwZfhc4KdvXs 0dGVkIGluIEExLiAgXH Avb2RpV2A9BQQmYNrog 8iiKPUxOFdlh5UyCJjC UQVVVX3NFU2ofYR4GSt LU7HJI7rGuBPiVIA3eF L8INNOYacpvWD2iIA3u F17MZOvZIZrnZLxWMca H930LyO5DECiAVaop3h lLQJsBEfhu4CbBVpXSR MIHX8OKH1weMT0ZVsPJ 0VORHwyMTAxNnwxfFVT LJY5YYbipGewxZd4j6f auHWtv7z7PTelGQW5yR xwbGFpblxsdHJjaFxmc cVuZJ8QTYBvWZcwMPPz bVTKZLD0EG2fXOxocVF kvukcYSNqW9GeN5Mxxy QbtJUuODRbxbGtt2cuQ XH3XUTunYAwdKZbIjYh RdbbSGU8XDw9WRsxWKF wC8KzR8MaREnvSPP5GU AwMiBcXGRiICBPVlIgI zCSILI6FJH9MhV5NZy5 ZHBAScLpItWfEHU2FUa 5WULzVVs9PMp1FZuJQz W3EeE4JJZ5MdTzQOJ5I OIcJHv9WBJjXOowVDCq aWFsIFxcZnMgMTAgXFx hXrOrDJBnOIwjoaW1JY JcZnMyMCBCOlxwYXIgD LxisBgdkC8wPQOfN80t e0YBx5RgPV7ZDZt1cxQ kvwybzU0aTAUcrzYzDJ vfzYFkI1myRswrltHcV XNbnH3uQOEnt9PzeqTg ydelBZPeoX5eZHKaWY3 cdS8zOWPhzS0eKUJnaO pcSuoeLECfC02zs0cty GWpp5NqJjC4RC9hwBph gvFaa5R5IMSaw4N6TLZ mcmFnbWVudHMgbWVhc3 ZefM0mKDHlVNIvhPFdE WNoLCBlbnRpcmVseSBz dDZskZX7HIRdbD6oTjP uICBccHJvdGVjdHtcZm urrAZ2ALulLutajN5st CBIWVBFUkxJTksgbmFt GD3XWM4OEkUXRV54QxP kWCN0GSoPC6CEtSH0Jx c8WTi5vIgoDgxlqhOcy RYbOnVJfG8EYCqwUmba gLL5AIodAnyylF8qgMK IWVBFUkxJTksgbmFtZT 7MQL2KSC6SdLNbNOG2t GP9TOGFQkqqxIW6cWZ7 iX35EVVcXAGpcBEdGMm tA863YIQgNSayHZk4ju NoXGZzMjAgDQpccGxha J3kEOJzE58gp3MJw2Ba PNQmAJznq4dtgPvca4P jdGVuZFxwYXJccGFyZF giuG0dAfOgz9reeZn2O EyhkcP3IQZbrn7XKudf JbrybStdt5QmjOPfGBd kIDUxMDAyIFxcZGIgIE 9WUiAiIEMxNTYxNjgiI If8IWs6LD2QFbHvDKHm XPjlFyUlHcLiUQr3RTm jPY8EOOwbNCH5Ioi7Hx A6CSL3IEBqTXZlYqAgC GYgQXJpYWwgXFxmcyAx MCBcXGZiIFxcZmwgXFx bA89nNzepsvWhABD0JU BhciANClxwbGFpblxlc GljTmVzdERvYzEgDQpc bHRycGFyXGxpbjBccml uMCANClxsdHJjaFxiXG QsWmKtE49ds39lYCBeJ A2pqjWog6CmNBQjuRB7 oeMrc4RladQlFLLjuA7 gJWJiyYdcyvF4ANNhQd ywKSEcN21gi7ewtQVvr 9JcVxY2PR5zn97tsUI1 yGDrdWNhMhGbV45xmoB wBZ6fIYM3tfdcCkGnCn XkV02rUFCmgJ2nGTGgt HRlcmVkLCBlbnRpcmVs tPVbzMOxiHC6FWEatG1 gQzEuICBccHJvdGVjdH wyMrmuwMY2IWskWfgcl F8ubLCTBINHYqsBXrrv goHqAS7GQQ7NEtANJW9 1DyAxVNJ6WWtSY0AAkL A3Hzu4NHb9iZutChsnq gWjwEFiQbKIoM5ERKwh JzolwUK7EPajTmfjhH0 zdCBIWVBFUkxJTksgbm CdMQ8PIG5TFT7FtJQhC AR5eBS8JGYQPybgnWD6 nHV6tR72NDNlTDCjgOJ eOUbvH594LCNzSGdtGK n3mdCdUQJfZkXzVGiwu IbxmN6rYJMrY08ai3FH p8VtEPHzUAwbe4jxyVf di3PrgQRzBYuiLBSmmB TlRNcyiK7wOhKzb1srv Bt3GAczunS2EOPmzx0E NmyrBudvcLhnb3FxeOR cXGlkIDUxMDAyIFxcZG OrWT5ILdNuIHEdVMAyP bxzQRd2AHr2OK0PCyMd ICAgNDgxNzYxOCIgOTk 1LXbqDI5YFBtlNLB7UL JeZNA7EDZ6OEQoTADhX iBcXGYgQXJpYWwgXFxm cyAxMCBcXGZiIFxcZmw bDPtaE85uCoyyypWcNK Y8GEMrytMYXvrsyOSti lxlcGljTmVzdERvYzEg DQpcbHRycGFyXGxpbjB ccmluMCANClxsdHJjaF teGHKfDnBgC42bt82rR ZCnh1SektPcijduCNGv bQNhVIYjVM2lqL3aCKV znZ8oXMSfcHaxrkMoyK E1CjecNZMgE82pg6tlm MMgp2DcgMVudUrghSSj zRWwEVKwQvHcaFvyu4E oVRUzXAqaNN68tmSsHA 0dyG8uZZjyPXQpafTxW yHafYDvLiBiSF40ENVn LiAgRmlsdGVyZWQsIGV stFneJLm6OWT9Pj6idU EqFQNfqnKOQJ1xDDkmg x48CST5u8buoYJiFWwa PxermDYyagI3DXhQCQR WLCmGNqFrAA8iQSePMv tCRUdJTnwyMTAxNnwxf NPEJYI8NLhoxIongJx2 a0itqNDkb3e1KUsoOXM 5jJqBp6zudFEoPQhtPc hosPGbczV0DLyXAEKOZ UzGDdJqOP4kKKcTBbwG XdU9BtWxZWH7BTxZV9I UuTC2Lyl5CJi6xVxrGt yzsjRmoXJfGrTZqK8pe UavxE1lmLCbP1hqYxXj MCANClxwbGFpblxlcGl jTmVzdERvYzBccGxhaW 80GOZgkEOaZUI9BR0xY HBhclxwYXJkXHNsLTE2 NRynxH94bKSkVPOwXWQ seAMksJ8Bl3ioWUAtsU NuETK4TPkdbOQkAIPlT XBbPQhpLeOhP9IISPLg JeJ3WqP0IPRdBIh5DOm lC8IUHYWdVQV6VPL9Dn E2OvM2HOw7HTVNEk4fE aA6Noz6ISJ4HCI0XbTe IFxcdCAyIFxcZiBBcml hbCBcXGZzIDEwIFxcZm IpKZhmvEWtYD7tjMbfW PXwGhRfBSjqqRCaPC3J XHBsYWluXGVwaWNOZXN 9XF0jBVWKNzycxPYtUC FjvZaqZZftkT7jJL5KO Vu6quLxGYHhVwRyYVPI n1ujiujct1yqdA7dYHd oVa4dNGYyF91ecUOtU7 9vu86qrQ7kgPB8HZPuR QFWw71jiXI6txBnVtBf RXZogntuCSQ0UM4kf59 uaOX9cFEwwDFpKeVaW7 3thcBmaFLlo3CpsH2kH UVzXoSsyP3kTRJbgNAd cmVkLCBlbnRpcmVseSB exCQneAR8CPFyoL0sGA EuICBccHJvdGVjdHtcZ svkhXD3AAlxChxmnD5t dCBIWVBFUkxJTksgbmF vJG2GUB2OFbTUQZ11Pe NsMPO4CDzEJ8DRzWJ0G cs3TGd8fQwiGnvdmkLc pSXiOtODfT0IZBfqUvv ilQC9IOvlHtqgiK6giV BIWVBFUkxJTksgbmFtZ C9DIR4HZP0DoHYlDMF3 tAM5DMIBWgcdcWJ0nCZ 7iP09HBQcIRXomDTgMI ddC813WTErHYtrHDw2q mNoXGZzMjAgDQpccGxh rI1sEWHsQ85um5DSv5A lAQYgUTybm1axoPbqn7 VjdGVuZFxwYXJccGFyZ WhhnI7uGoDdg5veiDw0 MAmgwhF1YYLajq0SKbx qJbqtoImhl1NmxOReKU lkIDUxMDAyIFxcZGIgI X4HGmFjOXRxOWScKwun WQe7ETw7MG3LZiAkQFJ xYMufBqCwOVIoADw8KQ deBF5TXJveRXY9LSZxY MO1XKJ8PKStCSVdFtTc XGYgQXJpYWwgXFxmcyA xMCBcXGZiIFxcZmwgXF fcN20fCrwueqNiKTK8G HBhciANClxwbGFpblxl cGljTmVzdERvYzEgDQp cbHRycGFyXGxpbjBccm luMCANClxsdHJjaFxiX RTkOmTpK82gr77uCWJa K5Wck9cesO9uAYcfEr2 1yN5oMHZeC9JwpZQaiV nuc4heTVVqg3kqclMmy 9s3yBJzjIZ9VuoeUCSn S62fg5mzbVGij6XrTCH tiN8kMIJgBgOebQmih1 RlCCDnJCtcZX04ohRaM J3viC0dLIzlIWLoiyOz NzJtaGWsAvZcIG59TPD tLiAgRmlsdGVyZWQsIG HqwKpqDGt8FJW1Vn4hy KCcAEQdqwDXTY5qXUuz ci62QHG7x2fktAXmECe mGqxoaQWkcyX7MGeBMW WJTTfMPgNkCG7bJJzEI ktCRUdJTnwyMTAxNnwx vREJAEU0PEvxvRtniNd 1c9bttXKtf0p8ERvsJP P8aJvSr6aegYCiYJgdU xrncQRabhX5WLmMOZFI AKrOEyNzOZ2vQJkHJsi HWuV8IaWvEXF5IGyEK3 VVeWG7Nmh6EEs6cTfeD hoatvPfdKKeSaZTvP5n pOntgI1qxNTbX5acPbT yMCANClxwbGFpblxlcG ljTmVzdERvYzBccGxha E95OVVsxDXpEHP9XD8a XHBhclxwYXJkXHNsLTE 3ONpqjH12lAGaCQJcNE YojLBpgL3WKEUkUUM0K GmnzN78yELjAC8UBDSx CQI6INAllIMeCND0DI3 qjK0QyE== Biomarker Block(s) (test u8jtxCQaHNVgcQJ5ZmW code = 9841) uQBLbo8fje4YrsBYpuV VgUAvtjCTngfHcsy51y AW6dC55UU5lLZZcHwU9 IMSvvsZ0Rbu8LEUmWDI dhHGkU062h0mly1yapu UyjGZ8xWuaCVZeAQUoR MvnAMZyAsIyOl1MTXRv cn0= Disclaimer (test code = c5qdpMTdVGTjeTXpSyM 9844) qDYDtSBUui7vzRRJvdU FuZzEwMzNcZnRuYmpcd GBhLHPuFgGkd2lxw271 xYNkq9wuLXJlRxQ0eAM bTOIuiOZhL226MPOeTX lig4hmu7VuNHNruCNpc 4R2PJOKvmlreLw8lPqx S74mv1G8UcziT4ddAFG tNMAjA8GbSJ7kTEEtUb w3FUL6UDY0YGCsAWZaT 3XuAH2dANDdxODyCMy5 z2bhqGwmJYJmPFU8t4g wQEdogwIzBY7rjg3vvJ y8s7pkmjMyNMKgPKZqt OLQWSOkR9VfoNzwLk5p xBp3jDvxHjcoBTL9Xkm 4SR6auk22vlm2zUuyWY TxzaqmZjL2KAcwEFWdf ukaYKd1QPgdQRAafLZ8 YKPjoNYdA0OuUSCoXQ5 gbzr5YEU1ZNbcGGWuMx J4GFSkxQFgIZBpxItfG Isna782YEG6JgVqCO5l R0Osg7C1wK8zkEFfCTT biWIrVzKpENQgjy1epG UdQDgcu4LhNLN2uoM4q ZZdjKBrOQGvJQ12Mfgr j5OyNvwnGJT0VDZktxB no1Mye6ohDeWsbrCwW4 vtU2TtHJOdGMKoUEWiV vFuciAkk6Ktu1VhqIJj fWs7o4gbIPKaOMTpaHa os2cjIJS8ZKRaH5H3yC Ccb2coPNmoMIHedPV2j tP5AUPunIOzR5GtxE1m BLHeOE9dzmm8q1liLND 4HXakDMSaYpI6tqI3EI BcaGVhZGVyeTcyMFxmb 960NWG4MzRcSYZmf0Ps A5GksOqaO11ktIoiR08 kUNFbcGlduZ1jnWhboF 5cZjBcZnMyNFxxbFxwb ZJmmtnuIVqigiF5VWya sjybVNOySCjbF5ewHeC pMDYcjZxmVMtmb5OaAQ LaGYDkUywpmkP0FMLNh 97uDFUmy1UhEFJyzJ1v tCDxWVjfdoHxsJF6ERt hdmUgYmVlbiBkZXZlbG 5qACNwVI6yHQVkkaHxi i9dntVlVFTmIVTzQ9Zi cmlzdGljcyBkZXRlcm1 agdCcCQI3XIGDCL3ZSI AjHWKhg45cVEJpxPsqf W2gdOLlzbRgHEDaf8Yi lP6ejMOZYOKeD4hqYD9 dXZepa1XkcBSxcRPsjX O3ZQPnx7PeFcUygxBpo ZLdqNItW4UuqObrW3tn VQWaMNAloiJfdPMfm5P xECUckVB7sYAiFA5XEy RJu14hYQVgRFQCssPqV EZkoJkqoJQ1qsI4oB5n LiBJZiBhcHBsaWNhYmx pXSEcl531dj8ttuD4DF VnGXNglshhf4DtMPZpD UAacX28DKZgIWDamf5o evqzjWOdvtLyH6Bsyhi 2pO5fOGRrTWrwRVNiOP ZzMjJcbGFuZzEwMzNca GljaFxmMVxkYmNoXGYx RSfuR1qwCqOsOiOaLnf wYXJ9 MD ValdiviaTestosterone [id number] 16:56:47 Test Item Value Reference Range Interpretation Comments Testoster Tot (test code 9 ng/dL 193-740 L Ref erence Ranges: = 7607) Male: Age 20 - 49 249 - 836 Age >=50 193 - 740 Femal e: Age 20 - 49 8 - 48 Age >=50 3 - 41 Lab Interpretation (test Abnormal code = 06209-0) MD ValdiviaProstate Specific Antigen (PSA) - [id number] 16:37:56 Test Item Value Reference Range Interpretation Comments PSA (test code = 1.1 ng/mL 0.0-4.0 Results gre ater than 6743) 4519 ng/mL may not be reliable due to matrix effect with ext ended dilution as it exceeds the manufacture r's recommended simon it. Caution should be exercised when interpreting michael ch values and done in conjunction wit h clinical context.Testing Performed at [facility] Lab Environmental Protection Economist [facility], [address], [place] [address] PSA Indication (test Diagnostic code = 9395) MD ValdiviaGlucose, [id number] 16:26:34 Test Item Value Reference Range Interpretation Comments Glucose Random (test 108 mg/dL 70-199 Effecti ve 10/08/15, the code = 9360) glucose referen ce intervals have been updated based o n [employer] narda delines (Standards of [...] diabetes Testin g Performed at [facility] Lab Environmental Protection Economist [facility], [address], [place] [address] MD ValdiviaCarbon Dioxide [id number] 16:26:32 Test Item Value Reference Range Interpretation Comments CO2 (test code = 26 See_Comment Testing Per formed at B 5278) Lab Environmental Protection Economist [facility], [address], [place] [address] [Automated mess age] The system which ge nerated this result transmit esteban reference range : 22 - 29 mEq/L. The refe rence range was not used to interpret this result as normal/abnormal . MD Pena [id number] 16:26:30 Test Item Value Reference Range Interpretation Comments Anion Gap (test code 10 See_Comment Testing Performed at B = 8507) Lab Environmental Protection Economist [facility], [address], [place] [address] [Automated mess age] The system which ge nerated this result transmit esteban reference range : 4 - 14 mEq/L. The refe rence range was not used to interpret this result as normal/abnormal . MD ValdiviaChloride [id number] 16:26:28 Test Item Value Reference Range Interpretation Comments Chloride (test code = 106 See_Comment Testin g Performed at B 7274) Lab Environmental Protection Economist [facility], [address], [place] [address] [Automated mess age] The system which ge nerated this result tra nsmitted reference range : 98 - 107 mEq/L. The refe rence range was not u sed to interpret this result as normal/abnormal . MD ValdiviaUyntnjwmFxhqnoxwq4447-04-05 16:26:27 Test Item Value Reference Range Interpretation Comments Potassium Lvl (test 4.5 See_Comment Testing Performed at B code = 6854) Lab Environmental Protection Economist [facility], [address], [place] [address] [Automated mess age] The system which ge nerated this result tra nsmitted reference range : 3.5 - 5.1 mEq/L. The reference range was not u sed to interpret this result as normal/abnormal . MD ValdiviaSodium [id number] 16:26:26 Test Item Value Reference Range Interpretation Comments Sodium Lvl (test code 142 See_Comment Testin g Performed at ACB = 2872) Lab Environmental Protection Economist [facility], [address], [place] [address] [Automated mess age] The system which ge nerated this result tra nsmitted reference range : 136 - 145 mEq/L. The refe rence range was not used to interpret this result as normal/abnormal . MD ValdiviaCOVID-19 (SARS-CoV-2) PCR-Asymptomatic [id number] 22:02:46 Test Item Value Reference Range Interpretation Comments COVID19 (SARS Not Detected Not Detected This test is a CoV-2) Result qualitative (test code = reverse-transcr iptase 00417-5) polymerase katerina n reaction (RT-PC R) developed for t he Vivain WALTER 680 0 system and inte nded [...] were verified by the Microbiology Laboratory at [facility], CLIA Accreditation # : [id number] and CAP Accreditation # : [id number]. Result s must be interpreted within the [...] te sting if clinically indicated. 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 ? = [id number]) ?Case: [id number] ? Authorizing Provider: ?Pako Lopez MD ?Collected: ? 09/14/2019 1052 ?Ordering Location: ? ? [facility] Urology, Clear Received: ?09/14/2019 1413 ? Martin Holland ?Pathologist: ? Mitch Perez MD ?Specimens: ? [...] Right mid base ? Final Diagnosis (test f6tubPBzLGVyf4ykSULwfQ code = 7526739408) FuZzEwMzNcZnRuYmpcdWMx VLtjtfOyKSxlb7OqS8QtBy AwMFxhbnNpXGRlZmxhbmcx LIIhRKP9asBgCXKlGRylMD KiGUtgGe9thOWudUwjZzQc ORUsj5pkplTRxwaiuFb9y2 hzQRWcAyI2hIKmYAcvD6dq dxDosNRgMKOoXAu9nD49MM FajC9yoODiBKjcztCiElW1 PAcdZHVrXgT3HYAwtWLpVC DjE8qyKZJdNXoqLMMvZQml bWUrSST9uYngn2L8xQXwcZ EiaBglIpZqIpLrQBIGf4Cp HFu5iPzdG1ZuUWXbIoC0dP QgUGFyYWdyYXBoIEZvbnQ7 yK55VHtylnM1tGMmz7Tef7 9vq762wL7gwJLeBUM9GNVb HHIlyUDwDWReGTO2DMUjvX CkE3pwIVelXJ3cpvnyASY4 MFxtYXJndDcyMFxtYXJnYj DsuSHlSYQnuJsmHIqiz808 NYY3AxZnEN4nV9Jfh9A1qO 9maXRcZGVmdGFiNzIwXGZv ns1ppWWaJAopc7RgSPX2ir S1eLLurHJnTPPhYK49Hvpm s6ShPvytQDT4YAAdnhBzi7 Ppi9thQkWcchNoT6dkJ4Gd ZHJoZWFkXHBnYnJkcmZvb3 Vkl2SeyGMsfQy4b4xwHKOf MQNuqJopn9wgVHY9POZjR3 X4cQYww9qbQThiLFMhyHB8 nnYgKZWclHItC3WsiI5rJA rvPC5ekyb4h9duBqSqSI7u jblti5buKXftUJDgGZQ1Pn BgLEVqz2TwmiksLnKtt8Gw uRCvFXygW77ch029RHKgtw UpM2ekxMAnehgyjIWvgjvy CThansR5WRo4wsLxbmgpxP xwbGFpblxmMVxmczIwXGxh wwgiQWPrQHxkO5foTvSmAA JqqVcrZWmmk9OoWEIfHWQc EgLqvKXqIACtPSCPU8DTJS ESZEkRBC1HUJYMVNZLDWhY VEVSQUwgQVBFWCwgTkVFRE hQGNWGH2SFZVaviOoczQ6x TkWnJfOuXxcxYB8gHORwB5 nndYIiYLEjQLNkI8eePuSy zF2diWxfNJupAqAxTgEnDe ftVIRiqLksyW3nOoIaUiFu DZtjTV3vWQCuG8nyoOEtXX EnECLhQ4srLxIfxL0amBny MVxmczIwICAgICAgLSBQUk 7GODHSLNXiARMEIr2LUKTJ ZM4XTBPnOSjLMSXGF18aF1 NPUkUgNyAoNCszKVxwbGFp blxmMVxmczIyXGxhbmcxMD VcWYlxN1bpRxFzKRQkuQte OTjqb7UfCVAgWEEsKgmecr IyXHBhclxwbGFpblxmMVxm czIwXGxhbmcxMDMzXGhpY2 sgFhLaKVEmzArbEAeay1Ec XGYxXGZzMjAgICAgICAtIE dOEBLZJWgST0JSZGVexKzl gQ7mUeRpXlEaYilaNX7yCP TgS1xaeFNgEHVxBAEgT1yd HzXdeW7nyDsmJGciMeIwFr QwBbkqYJXtvNlvbS0aFvFl ZiYiJYdmQF1cWGQhT9ecsV XlWXMvLHBoW9msVqDuoU4k aFxmMVxmczIwICAgICAgLS SNKIMJYB4GFYiWYL9SPFaJ YUYLR86zJQKZNQGGVkO4Yz M6QEKlAKOuHDbmUTJcKCDc MjJcbGFuZzEwMzNcaGljaF ocFCtaJcVsEJPaWIeqG5ll AkWkB1TjVEWlHvPzoNRcLC BsYWluXGYxXGZzMjBcbGFu ZzEwMzNcaGljaFxmMVxkYm SlJAJpNMogK7bxOrMzNrVv WVUtBHVdNW4iXXPJI5PiUW 0XV2mLRVUtOMHLV6SQDWGK UEW5OZKdC4MxHLhHORNDJ3 HCTOCJOJIUNO2NZYnzgIRc blxmMVxmczIyXGxhbmcxMD BnSStqG1neJxIvZXDixCef XSnfz4BkZASaVJMwRspcin IyXHBhclxwbGFpblxmMVxm czIwXGxhbmcxMDMzXGhpY2 jnSkNxWXGvyCipQAtxl2Vr XGYxXGZzMjAgICAgICAtIF RPVEFMIExJTkVBUiBNSUxM MV1CYWZVEqSAKzZPPWRGOQ RcH57UZKOBIAAAFJL0TOCo IH7SUFOsZXkqJFVzOJDiWy JcbGFuZzEwMzNcaGljaFxm ZWciNeXkTLTtTFawN3ckKg SoY9LsZLHuUwTimUGfBNZv YWluXGYxXGZzMjBcbGFuZz EwMzNcaGljaFxmMVxkYmNo FRQlEPmcT4cuVkTaScHiCS TyXSBpES3cDG1GKRltUHhW JMVCYP3NPPrUFLBTIBOEFM 0ZVPVBIaJARc7AQLouFPAP TVxwbGFpblxmMVxmczIyXG qszahkLQLcBIsgU0pgPdBp ZGFmxTqnQYjfl5DyPBEpAD NmMlxmczIyXHBhclxwbGFp blxmMVxmczIwXGxhbmcxMD DaIUteI1ncOhGpPLEakQlp TNgwe5YeFHDcATZsUfNcRH AgICAtIFBFUklORVVSQUwg YL5AUAWJS82zQk5JLBrQCL 0FJQSPBJAtzRzwcR6qMyQw TvEhJjnnBP9zBKRvC0tfzH OsKFFcAJSsC5miFyMfdW3s aFxmMVxjZjJcZnMyMlxwYX ZvQzhmPbTjzLnfrC4vFnJb ZnMyNFxwbGFpblxmMVxmcz MeXAueswieJAHhUSisT0hj EqJtRFOcyZhoJPeqs8WeYO MsPBUpXnMetEO1ADStY4Aa XHBsYWluXGYxXGZzMjJcbG FuZzEwMzNcaGljaFxmMVxk BpXfGNOgGCifX7kpAkHfW3 YyXGZzMjJccGFyXGZpMFxw vFIayegrLRdyubU9MSGnOG luXGYxXGZzMjBcbGFuZzEw MzNcaGljaFxmMVxkYmNoXG FdVMijX6qzYbPwYtAkNROF DwWBFy1TBGFOKDANOKYIJG giDKYIAMIBBXJABmSSAE6Z AIiiKwBLIDeGZECQU0NRRF fggXqjuV6bZjJrZbDfKsro CY8sMMLcP5tijJZaOPGpXR QqG9snCjWslT1uiGmlNSis ZjJcZnMyMlxwYXJcZmkyNz BowMpscT1iYqIzOsObRRtt bGFpblxmMVxmczIwXGxhbm wvXIAjFGrvG0aaKrVkNBVi lKlhKQfgv3MpALHoQQWiCy NqOAGLQo5SKKYCGIBoTAHT Fj9SOQDOWY7RHEShQQhNNV MLT04pJ1FKZrOrNNDqWPpw EXbenGdcsD8lYrHiEnTjSv wfIU9rCGTlH6zbgPTtDIQs XYZmB4myHgRecZ0agGxzPN xjZjJcZnMyMlxwYXJccGxh oZ7dJjLrXfKlWIfaRR3lGL DbK7morYTgANMgCWZwO5df WtTnfJ8ebLtoBFaxltVpMT 6fP0OGXSOeK1PNTXYrMXcv bGFpblxmMVxmczIyXGxhbm woERDcVNzfW5giRvJsVXBr kLkmYRxyh0AySOUeIXCvSo xmczIyXHBhclxwbGFpblxm MVxmczIwXGxhbmcxMDMzXG bhU8fqTpAmBWNhdUwsFXdm n1VqDHJrPJZxOzYiECSGPx TEITBHZ0KCRQGXMFOYWQ6J BJDqHZSOO4FHFIouyCUkwz xmMVxmczIyXGxhbmcxMDMz UKetA1lvAfQrAUMdoJiqUS hwn1OjVCAaCNIbPhvsbrXj XHBhclxwbGFpblxmMVxmcz WbCJerspemQSSlJJazR9nz ApTtJPJvdVlkWMpch6SeAM AxZQRhWkBgHLSBAQ2BBwGK TlZPTFZFUyAxIENPUkUgQU 9KQIa2SOYoT0OoAGjAQOER W8FHLYHUKFUEAV7DQWzckT FpblxmMVxmczIyXGxhbmcx LEFpEYxoW4wtGvSyQCJbuW rzPCtpw0SbGAJuNJXoTdxr czIyXHBhclxwbGFpblxmMV xmczIwXGxhbmcxMDMzXGhp R0kbFtYlRKBupDamLWbbr1 GsJCIvTHHcWnIpENHBG7LQ UGPVNI4YCDHlNCkGENdKAG HTVvEvN5EgXrNMLArZEJLN SrMtYErFY0ZCRtDmUNDBSB xwbGFpblxmMVxmczIyXGxh jqywYPKcUJgaJ0vtUdNlBW BybIhrNBxpo3DiQBBxOYHt MlxmczIyXHBhclxwbGFpbl xmMVxmczIwXGxhbmcxMDMz BNjxV7agUzJiDNDkeKyhJI zwl7OgTVXiHULiBjArUHGB E4OMQZPOPD8KCZOpLNpTZN mFXQPWWnQzC3KiQ2EPX8pA O51XIgRoYaQZWErwvSLsvy xmMVxmczIyXGxhbmcxMDMz CLwtY7cfEpWfAFJfjYsmVF bbe6YnETRqYCXmZtycynZc XHBhclxwbGFpblxmMVxmcz ZwHWbgmgvtTQSnRDjuB5zt VmJvPRAslRkyDGmev4FdYY YxXGZzMjAgLSBQRVJJTkVV IuTMWKtGFzFFQG3RNG7EQP BJREVOVElGSUVEXHBhclxw YXJcZmkwXHBsYWluXGYwXG CeFhFcoLboyU8aBpGnYqNy XLmrXR3rATVwI6xvxVFwEN RsUGFfH6vmQdXhaI8pbRpk KVxhuiLeAKJdLZHNF0OLXS FNKLxVPE6ISCMHUGNZWFeL VEVSQUwgQkFTRSwgTkVFRE gUGQLQO9QJBLobtJooyN0h EoOkBpGtYnbdAN0pWRPwL6 jqkBNnNCNrXUWpD3trQnYj sT8zeHrgZWnxXuXiQvTrVt buUJNzOhrbEbUknFjoqR2s ZjBcZnMyNFxwbGFpblxmMV xmczIwXGxhbmcxMDMzXGhp X6fpCyQaPXRbwUuiTDzti2 OpFPPpOXMeQpSyBASVRj6F HYSDVWNdAKXBTf8XTBEWVR 3WPEDcWCgRRYBXK39wP5MS UkUgOSAoNCsgNSlccGxhaW 4vZiIwEvWyClfvRV3mEOKs A2yefAXgPXAaEJExY5udLv CtuZ1qkXnyIWglHaGtHcPb RklsGXRruMgpfG5qMnYyKo TlKHacPS7uUTSaX6kenXDp ZVEcNGBzI5buMqTgdQ1xeE eiRAhpqgQpDQ8cG4CDJOUv L1IVJXOqCWcmhJDtajsrBI xmczIyXGxhbmcxMDMzXGhp C9ydNuZpXNDvtGsdKTmuv5 NoXGYxXGNmMlxmczIyXHBh clxwbGFpblxmMVxmczIwXG snctgvXDTqDEhcQ3uqXyVn IUPcwXkoWIfku6QqYIUwLM KoQaDdVPJFUO6ABeFKYmWW SZEKRuAmLGWJYwLoCD4SRV KfKCReN3TxPUkZOIEHP6QJ OGTXFXJOOM7XDKgwrLRdxg xmMVxmczIyXGxhbmcxMDMz SNfeM3urDxDrQDRniGwtCC kjp6CqBRSyZAPzHtbzhdYv XHBhclxwbGFpblxmMVxmcz GuQBiiyzkwAADyKUzlD6pj FsNkBSVrnFnuNWxvv5UuVY MaFMXyEwVlVMHAT5EKODJT OX0NBPNvZElIFBwRXHGPAa ElQ8XzLqFLYAuGCUDNRzAu CMfXE6OSDsGlLYWNMXjctI FpblxmMVxmczIyXGxhbmcx PVQnTEejZ4ixFqPmQUMkjO azKLesa4KgVXIkDPAeWlyq czIyXHBhclxwbGFpblxmMV xmczIwXGxhbmcxMDMzXGhp T5ioLdKrLNSrcBjfFDkky2 NvIDNvDOYqNwOlQRIYL9EP USSJPL4SMPLiHOvVBVhEAE WBYyKcW4VhB6AMR2iTV35O OlW3IT9AXZEmoqOjOTPKWg mIKNKMECkoEW3CQGAKQ12q Kx6KFHyGWC0LZEZXEREttA qyoG6oCoFxExJiLzsjCD1r AGOyP7dxxLDlRTYxTFUoK2 keZnVoeJ8geRieMLgzUfFw ZnMyMlxwYXJccGFyXGZpMF kzzLVwnvbwYGcwrlG2BMEe YWluXGYxXGZzMjBcbGFuZz EwMzNcaGljaFxmMVxkYmNo XVGiBFmuO5umFxJvTxOtZU JZRsGVMv9XUGHOIOJWQRIX RCwgTEVGVCBNSUQgQVBFWC fcEhBSSAbXQTNOV2ADWRal rHfkgN7zJlSbHpMzCdfwUS 7qKPCeA8fsvZWqOAPbZMHe W2iiBxUpvZ5scXfuEOgaDv JcZnMyMlxwYXJcZmkyNzBc nIcuiG5lKxNfOsCcKYnixC FpblxmMVxmczIwXGxhbmcx SYYrBOcnL0snNoYbQHQjzX ioWBohj3CjLIEbHUHsUdZt TRKQCW8HG48yZUXQH1ROTL jQQQIHI7AOXJDGWBZFHJSA Lu0NKPXwKV9HPOGVRRAWYV 9OXHBhclxwYXJcZmkwXHBs YWluXGYwXGZzMjRccGxhaW 3oJpJfVeNuJIwaAV0fFQHo H9pctQLqVIEsSSWxF7ziWa EpgE3zqErpJRewohRaIBIr SZUNE5ENWCOWYGuGUR4FPQ SHAMYVRS7HTQONESZaHN4I AWHOKCAFFC3YZ5l8IRKrGB luXGYxXGZzMjJcbGFuZzEw MzNcaGljaFxmMVxkYmNoXG PyWApaN4noVjMgY6AkAIXx MjJccGFyXGZpMjcwXHBsYW aeBPOhGWDiJyUwkUppgZ7r SaOdMqAdDJyjSZ1mDXZqZ1 onjNBhGXUcUQDyM9acYyCb vI1glGthBSpwsxYrVI9sRA JXS4QQCRrUIJFBSG2FF8SJ U2gBV98YXTCTZFXDF73ISD SIJ6XUIQmbUJNeFZCdVIGj YWluXGYxXGZzMjJcbGFuZz EwMzNcaGljaFxmMVxkYmNo FKXnQYjyM8sbLvFtL5BmUT ZzMjJccGFyXHBsYWluXGYx XGZzMjBcbGFuZzEwMzNcaG ljaFxmMVxkYmNoXGYxXGxv K5xbCvXzLuEiFKKmZExFKE WNPDdFV3DEKYFaeQctoD3o DsBvWcAoTjlmZD0yBEDaG6 uwfVIbFIShIYMsB0dkXsOy yF2yrPuoIHgqLaCrHtCvTg uxZGUwrQdlxA8cXoClJkJw HBcaRI0kZMBaK3tgsUCgUN MxQLCtU9pmPyHjsG5vgLds MXqqovMqDZ7iSNTVL0WsLI 0KJ7jPLSScQSVWD7GSMRTD NLLyFRWnX4BrNZcWMSABT6 AWPQGWEQPNYY9WOCdpyQSv blxmMVxmczIyXGxhbmcxMD UaURvlF7gdRgKoZPNlnLcs SOelv6BqVTQcFUGpTkcwrm IyXHBhclxwbGFpblxmMVxm czIwXGxhbmcxMDMzXGhpY2 osOuVjKSBsbKakCXmyb9Rw PPBiXVFoAeCrXKLGQ0XVWC EONO9OQMHiZEwOSOmXUTIF SvVlM6YkAwIZHHhFNNGUNw MaRIaKW7PGIiFxPaABRDfc bGFpblxmMVxmczIyXGxhbm pdUUHrUHgjD5ngWoLiPHLa mQvnXNmkr4PcHCLhEUCgJz xmczIyXHBhclxwbGFpblxm MVxmczIwXGxhbmcxMDMzXG gvS8quGsQnMNYfkCjaNUcg w5FvBJIxZLWfIaAmAKVXQ7 XKDJUDOL6SRUJfQAzLRAsB HCOPIpDcC8EjT4HUW6eEO0 7OZqEhWoEvIK9skHbikF7r JnAsVmNcGtwaZU5zSLZcB9 yjtZWhGZLoYEYwT3kcUoEa kU2tqQguPRjlXxHiNiUuGs liOBSasDxrpZ5rQzAtYwMt JRpbPI5uBKWeS1zpcNWdXE JlAWKmI9mgUrRfcK8edBay UEehoyAmUA6fQCHFIG0BWH TPJYXFLwTIY2zYCnKVX5Ak SURFTlRJRklFRFxwYXJccG FyXGZpMFxwbGFpblxmMFxm tyK1QECeMSdsSETcPTYoAn BcbGFuZzEwMzNcaGljaFxm HGvbKrXdQMOhQAakA4xnRi NxDjSjUBZUEjYSFy9RUUNL RSBHTEFORCwgTEVGVCBNSU QgQkFTRSwgTkVFRExFIEJJ D8XERKbgyRftgJ2sVeUjQx CeSubcYK6bXVXfF0awkESe HFSvKDExI9rnEmXtuN2nhY xmMVxjZjJcZnMyMlxwYXJc cGFyZFxwbGFpblxmMFxmcz C5PBLcTNafBHMoJXFvOsPu bGFuZzEwMzNcaGljaFxmMV etIwCoGCYlZMvmL2jlNmZd VjLuGDGyUCKbOT9uLmKFZC rMQZYZF5ZWMJWNCdHTHKCF SGJobOVkBQYqWkwnKIo8ft BhclxxbFxwbGFpblxmMFxm mmD5XASbCUkuGONxDZTpJm BcbGFuZzEwMzNcaGljaFxm UOxnVkZdFIDjKNjyA9ybOd FcZnMyMFxwYXJcZmkwXHBs YWluXGYwXGZzMjRccGxhaW 1eOwZaVcAxJJakOC1tKRCs R6fcuDIjLUYiYBBrO9liAr OnuB4naWcdLHvfkfUzRNou RXCEG3KGGNCHCMvVIL1MGA BSSUdIVCBMQVRFUkFMIEFQ YYggWX5XPLDBSEWOPN0FS8 y7QVQpBCzqOGDlCCJxWgZp bGFuZzEwMzNcaGljaFxmMV ttEvHfAYSlWHwhO0mjSwYk H7ArLRWcLxCxxBYiOBEfch VvoRgbmU8iJbKgZwWhRNpf bGFpblxmMVxmczIwXGxhbm knHTSaQQycG8luWrLdEIXw gQicEDlfu6LoQNElEVUtKe AgICAgICAtIEJFTklHTiBQ Ko0ZCZIOCRJdAYzFO0YLDO nHMVsrS7kDC36PZaKIIiYV TY2CNSHAD61lzVYdTSVwOu wpEZy9uaSaaboveXtwzCDr jtvvIGdioeV2YKOuGElbFB YxXGZzMjBcbGFuZzEwMzNc aGljaFxmMVxkYmNoXGYxXG vsH5iwQhRpYySgBPfjOMKj ZmkwXHBsYWluXGYwXGZzMj XbjQdcsH5oAxAtJxSyPBnh IJ5xUBRiI1euxWWtZMBkEA LiC1onLvNhfY1sdGynAXvz hhIvYFvjJGIQK2XJKPEMAU jMEQ0EKUVPAOfPAHOORITC DzZQGS4MJSblLtPYVOuXNC ZJR3DTBSkotIudoG4eGxJa MaEbAvgbVU8mMZTiA2ilqB MbJISoTOVcV5asRkXzrD4s aFxmMVxjZjJcZnMyMlxwYX AyWscgLfSlnAgpaT5oMoFd ZnMyNFxwbGFpblxmMVxmcz YaVJciawfeTOXpYLxkP1xs ZnXkKFXcqTudYZnyc4ErNO KsQRAjEjRaFOBZFv2LTZPB JCArGDXIHk6MTQFTFZ9OGB NtWCeSRALYD05pM2THReNh ZiBsJimiOamwnLwexV7kZb WhMaRrEsutFT9jEUNkI8bq sAFwDTBxBIOfU6tyMbWkxH 9jaFxmMVxjZjJcZnMyMlxw HJQbrLzuuC0dFkQuZfEbJQ teIX6jZUOfW9ywaQTjKXUx YDYlN4czLhFaiP5nlDypCQ pkxhLnEW7aM9PYILTxL4EY VVAgMVxwbGFpblxmMVxmcz ClEGbmkkpdCSPjWEmpO8sm AxMhUJTwkTnwNErkb7OxZJ YxXGNmMlxmczIyXHBhclxw bGFpblxmMVxmczIwXGxhbm kdCUKaCEvbG7otFvYdKVEk dFbuFNpxs9BaIVUnZAJcGn QeAVUADU0UOtHIJvKBRSIA GdBxXPVQLbAyBL5WPKlfBX EJUwWZKTFcQAzLX2PRDIJB DL6UDaLQCAZwPIomAMXyXN ZzMjJcbGFuZzEwMzNcaGlj aFxmMVxkYmNoXGYxXGxvY2 aaIpSqP1PjFZGoAkSrlNNp XHBsYWluXGYxXGZzMjBcbG FuZzEwMzNcaGljaFxmMVxk VqMyJCXzBDyfF9sfUaVmXy MyMCAtIFRPVEFMIExJTkVB HaAKKHySAB2WTBEMAlWJFr DQMYSJEAUpY61QGYQFRKFE WEC7TIN4JU4ZIRKhWDnnLO YxXGZzMjJcbGFuZzEwMzNc aGljaFxmMVxkYmNoXGYxXG dxJ2ypDlAbL5UcYSWtFbIs cGFyXHBsYWluXGYxXGZzMj BcbGFuZzEwMzNcaGljaFxm VXweBdNsQUMaZNybT1ihBn FcZnMyMCAtIFRPVEFMIExJ RsHWTjTHNGpQSM1XGAEJSz RJKvLHXOIANJ4VYTX4AXLv HX4psZojaK3lPnYhTlGsKq brEI7mULSeJ8xuzBKxXWIx CDHgK2yfGoEirQ6xhGbbHH xjZjJcZnMyMlxwYXJccGxh cA0iRbVaNbNlRZmoUM2gID KhJ4fuwOAeHWNtPIGxD5rp InWzdI2cmQxiYDqqppWyCQ 2lJWKXME1JOMFQYREUQyKA C5fCOpJOO6UhHLHXQiVMWj lFRFxwYXJccGFyXGZpMFxw fJGjemfdEKcbihS1AARcJD luXGYxXGZzMjBcbGFuZzEw MzNcaGljaFxmMVxkYmNoXG XqHVgfA5nrByPgTwZgLTTN CiFUVl8BFLZWKIUMAWSWGX wgUklHSFQgTEFURVJBTCBC QVNFLCBORUVETEUgQklPUF NZOlxwbGFpblxmMVxmczIy SBdtrnsuOCJfSAkiZ9gsBr VuVKNzkQdtKFuei6RwZQKg XGNmMlxmczIyXHBhclxwYX JkXHBsYWluXGYwXGZzMjRc tFbslT5oJiEfBqZpKNoyUL 5iUKNfK2qmbJUjVMMkJPAr R8jeTlLxvO5nbGlePArtbe VlYAZxTKNtAKWDGV0ZM19s ALYPB9ZZHKwDNNEUD0RTEI FCDGCWHVLBVk7AWJInMU8C FILBNIJNOY2LCIQvzboluC A8WLtqjGIiCKPwsYlsxNth pK8eWxByMuJlBCwuuIHjkd xmMVxmczIwXGxhbmcxMDMz GEdiB0unCbIoPJYbkIkhUO xsb6UlUFZgEMVaSxQdgLVm XGZpMFxwbGFpblxmMFxmcz Z8YIEuNCxnXIIyDHTlDtIo bGFuZzEwMzNcaGljaFxmMV frDuUyMPQvYBdvN8oeGkOr NxZmHZNKOpWGCo9ICJOLJZ BHTEFORCwgUklHSFQgTUlE AXYRAMwfCN7GTNMMPIOGVP 8ZK9r6WQIyMDbpFCSzWOSa MjJcbGFuZzEwMzNcaGljaF chBQrkDqPgBTTlEVmfW5jn QqKhN9VuARMrOqItoRIyJJ ZpMjcwXHBsYWluXGYwXGZz XhOigZxpiG6oYpLtJwUqAG coPE9iJAYdJ7ucqJLhURAo QIJsR1krYjAgrP1crHykPR kjwjKsZM8fWEVFL2OSAClI UFSYOI1AO3JDJ9oUI44AJY OVQZRIA09PPHGUH0ZMFUFk KDMrIDMpXHBsYWluXGYxXG ZzMjJcbGFuZzEwMzNcaGlj aFxmMVxkYmNoXGYxXGxvY2 wwXhYbL1JnPRXoIhScyBZh XHBsYWluXGYxXGZzMjBcbG FuZzEwMzNcaGljaFxmMVxk TnHpAMDjRVeeS2jnBfGkJb XfEJUcYMiSINMXRMzWJ5ZU VDUxdBqyaC9tIhCaRiIbFt etWB9mOCGzR0dcbOWvMJAo ICAuW0wyGqFigT9lyRpmDP xjZjJcZnMyMlxwYXJccGxh lF8sCzQfGuOkQXouHO0hQK XaN5xxlANwEOGtBEZjQ6mj VuRfxK8lhQrsKSqrerTfCW 0fRGQZK6CrKE6KO8pXQHTz CKWZS7OVZGUOMTZ5FZAFPj LCYCDiVPeYK2NBMKZPAK7O TkVEXHBsYWluXGYxXGZzMj JcbGFuZzEwMzNcaGljaFxm UKhmFzNmWNWkWJgvE4wiAs ZfZ1KrOOQwBrFvcUKjIAJs YWluXGYxXGZzMjBcbGFuZz EwMzNcaGljaFxmMVxkYmNo NYEoSZzyX3rlEyWyBgHtHX AtIFRPVEFMIExJTkVBUiBN RGvGII4JJCMHNxAMWpLQFQ RWNKQuC89EJACSDTJDLIX1 QOJ1PQ9XWHQwQVhcIYFwLW ZzMjJcbGFuZzEwMzNcaGlj aFxmMVxkYmNoXGYxXGxvY2 noHxDgY4HiAVGzSbXqdYWn XHBsYWluXGYxXGZzMjBcbG FuZzEwMzNcaGljaFxmMVxk VvYgHDIlPOotZ7luVdMmFv MyMCAtIFRPVEFMIExJTkVB ClHIVPeOCL4IITYEDiXUUe GCGAYIGF1BAGL2LVJyBY1h tPkkrW5tRyGeJaMfRporZI 0yBTWmK6dsrPQpINOjZHXt G9apQyPohG5gmXqsANtzLu LjLvMzVxdzCRAvyBacsH4s JjVxMdQdXUznUF7uIFXbM2 pqoNGvLGAvQSGpD3zgPsWc vR9eeXoeINmkpzQzZZ0bPD QGQU4RPGBTURDSThXXO8fA ByIWF3ZgVDRJScNIPckMNQ xwYXJccGFyXGZpMFxwbGFp kegsHTyqkuJ4RDWpYWswMV YxXGZzMjBcbGFuZzEwMzNc aGljaFxmMVxkYmNoXGYxXG bwV3kuRtNkEyZgLZZUBkLN Ag2ORRQLEZVDELYPIYvuCv fBSMUpGDaWNE7XKOpdFlHZ IVqRUCBTC9TPCEcqwCzfzF 3xMuLcNhMpQcfyZW9jQPNf R9tyvCVlHDOuGNFcZ2scWu KtnX0tkGamOEqcLrPhTuSp MlxwYXJccGFyZFxwbGFpbl ozBHdmjmG9TKEvXRmsTKSt XGZzMjBcbGFuZzEwMzNcaG ljaFxmMVxkYmNoXGYxXGxv Y7veVhLiNoKjXENxRUIpQM 6gTnJRAOpFHZNAP0GQLRCN VbLWAFGIJDEvVO7FHOTOSw 9GDGNeRF1HEARQSAJWAQ7N XHBhclxwYXJcbHRycGFyXH FsXHBsYWluXGYwXGZzMjRc nQqijH6jWsFuPxAfLXkeFW 9xXKIjA9ktfNSdXNVqODFf Y2reZvGclM3iaIreIPdasg OyZYsoPCXTB4IPONSCWAwJ VQ6ZTPMHOIcSBHGRJZXrFm VLAIloYqFCCYbZKFBEX2YH FTtzbHasgO0iQwOyAjEoWu wuEX5tMNLfG6osqEOoSOTi GMJyL3qzNeOufX8vfSovQF xjZjJcZnMyMlxwYXJccGxh bI5fGyDhEiNnUSeuJT3cGY FnE3xcwKFuMPSgNKYfG9ox AjWisT8etCldPDkchtEmBM RsCPLlFUGNEt8EBNIQLMLm HQPBHo0FYWUOWF1FJWMeWR lBTIAZW05jS9SCZxNbIqBk OwesYcmymBdvzG5aJhHvHg FhYzixCX9gIKAoF2ebgHPc WJKbFGVqS8msGwZkpI6ttT xmMVxjZjJcZnMyMlxwYXJc IdnpCqKbyWgtdJ0dAgJlGu MyNFxwbGFpblxmMVxmczIw BDpdjyiyGUQtVMobG0noKb AuQLKrfUxoPXcgi5DoAMNf XGZzMjAgLSBHUkFERSBHUk 9VUCAxXHBsYWluXGYxXGZz MjJcbGFuZzEwMzNcaGljaF kjLRicLhCjTSJiRXnsH7oh CaAjI7YtIDMeWxXmaQYiYX BsYWluXGYxXGZzMjBcbGFu ZzEwMzNcaGljaFxmMVxkYm WrQNAjNSxdD5urZeBbHfJq BQTtHXSJUB0WDGnCRn9XLk HHDFBbU92PYPCSAzAvIKJo E3JvNVgTJZUZQ9KUHBQUUG INTC3RWHucrHFecqxeDHvi czIyXGxhbmcxMDMzXGhpY2 nePnEeQJMsvRcsYErab9Eo XGYxXGNmMlxmczIyXHBhcl xwbGFpblxmMVxmczIwXGxh wtdqIBJoLQodQ0atIeNtCR CcoRbnRRfnr5WkMEBlHJZz FhVqEFNHU6ZFXVBQNC9HZI BjKPuMFMwJNQHFUiJfE2It TkVFRExFIENPUkUgVElTU1 VFOiAxMiBNTVxwbGFpblxm MVxmczIyXGxhbmcxMDMzXG adK8uwNzCmGTVouTtwWSez m8UnAYLiFBWuHkuqtjOfOY BhclxwbGFpblxmMVxmczIw MWulbiztGUGpDJrhZ8ynPu VmCJAoiQxrJQdbp6FxVTFx REShFpPkXQAJZ6QHJYUNEM 5FQVIgTUlMTElNRVRFUlMg Q1RxO8KGO0dCD56VIyRgYz ClHM5psTmtoU8oIlUzKtFp OwieVW2bSBVtN7tgnERrRW EfUDQbD7ssAzPbzD9omRkz MVxjZjJcZnMyMlxwYXJccG xqbM3jObTmAiGnFDxfIV5f TSMaA2zwnMKjFWHdQSIyM8 nlYyVqaQ2twRgmUMnwiuAk HW2mAZANFG2RNMOBIZYBKi XRI8oRIzOZK2DuERHCIrGC RklFRFxwYXJccGFyXHBsYW luXGYxXGZzMjJcbGFuZzEw MzNcaGljaFxmMVxkYmNoXG TqSXoxQ2caXeRqA6VsNSTa MaThJfQjiKWsxQBiV0jhzK udpketGZFKSOQwUUghTp0d KIYsWCF5ZjDvKOWQAISkKM luXGYxXGZzMjBcbGFuZzEw MzNcaGljaFxmMVxkYmNoXG SmBZkuJ0opCfQuQaQnUSRk NFxwbGFpblxmMVxmczIyXG lcxcgzMVHtAXmiC6pzXtNb PVQzeCcuJHoaz1EbRHXaLK AdQnoejvBfVKFhvk29MER2 PnQwr8W4POZzBmVzAVBpHM 0swKdvBHYjMP1kEGReO2cu kU0heol1AoVyLOErTtX3BN HxwiU4Tcw0FOTrHOsdt1yu b2VdN7CfmDHmoPf6r0lcJH DcSzE7gINmSVonG8ojkcKy qASoALYbAJl3qWpnHzGtHY Adh5glmuTyXiHgUPCdPUYr BZEdvXojdiq8cY61KZBowA 7ieKGqIRzlenFsCkC0MPta JKPjSvO8XCMmlFNpOOOoO3 xyZWQwXGdyZWVuMFxibHVl FHH4qPqzn3H8qSQomYYyjG jaJyTaKtAmVZFVh1OdDSs6 lQotU0RtFUOhAmL9hILeBI VkQJuwJUXfMLQcgaD6dY78 RGrhlyM3nWNll7Ihy97ot1 06nH2zpABxTHK2YRTbOVVc fZGqGUSlLIJ7VHQvkUYqW7 noVWGdGW6tcymuKXnvCQfl KKNsmPK6TNPciNAoE3YyOB BjEZlcPRGzfaf8GyJnTj2v yRKkgMagWZlkd0nfq4bvaF UyIyk1GVGoGmQeGpnsMOfd a0Ace7wqTUFgpj8wBXD0qM SwjXtpf5U7vPHuUQDylHNw stYlQIGtCeI5QXspHR2qpi 20NXSiJHS6bd2ffUTsrGav ptTgtJItRRrpR7BiXHWox4 65VDMhV7AjVWVfz7E2rgYo JeFbOPNcuBE5ukD7KQKbKN p6zSAcjeY3sbWfhATeX6yo jY5dGXFgQN8kdspnd7awVO xoXBggMDOaeGQ7bmW0JWZp yUEvD4DkoA1jDXQdSZyoLB Rzqsl6OnBnWa0aqWVmuCgv MFxzYmtwYWdlXHBnbmNvbn RccGduZGVjXHBsYWluXHBs YWluXGYwXGZzMjRccWxccG rkkQ9eWxFrCuBpWAljXO6o MWFmO6wgkABhIFAiDJXuQ1 pqYgAmwQ1mwHhfWFwfJnGf ZnMyMFxwYXIgSSBoYXZlIH GtaaYweiOtoZlucbX5kEY2 ZWQgYWxsIHNwZWNpbWVucy 7agEliCWSvES6gQAQwjqOf GDsyeKcoITyoQRO9CCMkpB VudHMgbWFkZSBieSByZXNp ANWprAUgFCCaoHcnw1Nkn3 RbrPG2sB9bl3gtj9JyKDPe kBS5CT70csE9oX2vWSWwKE 4iHNSzUE4jbVRxrASwRKWo h96naIynthFlVQOwhfIlSH BsYWluXGYyXGZzMjhcbGFu ZzEwMzNcaGljaFxmMlxkYm JbYWUgVBxoE8lbBzWlRvIh HWkvPAG1rZ== Clinical Information Left lateral apexLeft (test code = lateral midLeft [id number]) lateral base Left mid apexLeft mid midLeft mid base Right lateral apexRight lateral midRight lateral base Right mid apexRight mid midRight mid base Gross Description (test m1wzrLQcBWPhxZAzGsUeTG code = [id number]) MlYXEvx1szTENonZZrMtVz MzNcZnRuYmpcdWMxXGRlZm Jvs4vdc046iHPay4ofEULo BiZ9rKWgNOEstUMrJ849QX SmBZriu0oej0XcPSAktGHd k4P0QDLJseyecEc9v4koRh PbNjE8yRRjALozD7zdtsYk dRDyWBLhB2EqitOMIHJjPh k5zSaaT36qd0X5DagxL2sd ZWQwXGdyZWVuMFxibHVlMC E9YKItNFR7IWprjjYdygN1 YJpvxMRdJxL3UUk1l6lglX xfWNImRVY1y8eiQQnquePg LJ4eoi8biLr2u7fxiiImPK XkQBSelDCTYRNuB5BkpIpv Iw6poFq6tIziDaqdMVJ4Iy u9SU6odl96whz5mFcjKZVh dmegAsW2URweNWKogbwzGT b3RLkfVBLikLWgGXOitQWl T7NlRIraBC0svrl7MbWxZJ 0bmztuGAuySZQyGPI3GzHt AOQwv0NwdhdhDxBktp0nex 74CJM5j1UgcDyvRTH6DXV3 SyTfXm3poAZeDXCaCO0eBc JtgDFoTFLpsy51gDxsKUyz qcGhsV8sJkMgVVEyzOBaAN WvQQ2tsBXvLJPbhM8zmzgz XHBnYnJkcmhlYWRccGdicm TwHi9avZrgWYS2OSyjT3gz nE7iOxK6QVygH9atlI7ePY u0DFdseKZ4WXAyhQ7yUZ3x fhjky9iuIQX1YGxnUFYbpd L7bcKmKTUbiLLjB6OhxC55 SdTfsLEmY5OglS9xLHxqIV Xpvkp1MxYoCc0xuUTvkKF2 MFxzYmtwYWdlXHBnbmNvbn RccGduZGVjXHBsYWluXHBs RZabWTSsEDDyWdBgl8OyFU Nee4jtZdDdb1lieYd4TEwo vXiixQZfmmwkQHlwoaD6OT BsYWluXGYxXGZzMjBcbGFu ZzEwMzNcaGljaFxmMVxkYm TeJKInWNgyS5weJfTiGqCf MOVEtSGsbP4zkiIPMIdzVV UwT9JvvlLaNQdyJRZkfl4b aWgbWLboLeOwCGJif3g1qU Z1xXRjuCA4bBUgtImsHK4y vCRzNZQRAP79qWRpnmdxWj tfNxTtkWT6VPPhoGAqxGU8 IjJnskEcD80vk4dioYUml3 LrMZBysI6ozBIzqPKbXZbp YUazR51hWESjCH36WHrtFL 3gPXazMJ7gXHMgDKL1bVqf aCBpcyBlbnRpcmVseSBpbm tlZCBibHVlIGFuZCBzdWJt vKU9UHWivO7qoS69fpRvcl ZGKF3ytJGtIHHpQOGhyQQi FMTjuMLesnSzAPy4IOWlvX 4qWm9urCXblP7vuRTsITkv YHY3aIYlOEDjTCJiRBWiUR 50R9FqdcFiTYzyXRkqmrKw YmVyLCAibGVmdCBsYXRlcm McAI5vJBXgHH8cNMRfnxBa a4LiRB3qLQRzn0elN0kwRD Slja4xkoL4PVQvtgOfHHLf DFS9EBWwZO8uUiJnO67nDM doaWNoIGlzIGVudGlyZWx5 JOais1CbGFVnxVUkVS5uAV D7Lz5vhVXjPFBfezN6g4Ct KOhfHZFbDabfMUXvP8RhV7 bjPO0iNsXptjZrKATusQQp XHQduqDfy5UoUGusoyRaDX JlbGVkIHdpdGggdGhlIHBh iJcpjhCxppFvKY1iYYIUVS AzyD7rGATrMOAtQGQ7JQps bEYxUMinUwQeRDNmDS9iIG XexnMzg7IiCR5nWVSyu0bk G8ygESVdri5opsQ7TOTprr FcSEAqCmR8JIUnYXX2KDMq XFFyqQwmr5uuU7zhwFMgGU 64lIGjmJxptB2rSXOeZmg9 BRFmuzJax2EetTs7eVRmTT cbBGEuyI0fdS9lWyBfXTMp edQGrUVndC8gnsQORFiwPZ EcJ0HjeuErPTjhLJRtyh5m qNylOWuoWyUpHNPeu4m5iM R8lYEswJR7bJYohYxvYM6i dQFuDZWDAN95qHVagodiCc xlZnQgbWlkIGFwZXgiIGFu JJFyg81llWK4npLpHvGgGP FxbzojDAF9DE5tQ5WwfZHt r9NwUUlcHePfcDIvFsTlxS RvYpEkB58oIOlqfOQzXRyg CNXfzFrvCZs8RYwdg8QtLK XpyAAlLL2sRLN2By1ilRXw VMYceqE6b4UfYHegJUZpLn tsLMOqH1KpZ8ptXS6wVPMc cyByZWNlaXZlZCBpbiBmb3 JtYWxpbiBsYWJlbGVkIHdp dGggdGhlIHBhdGllbnQncy AvSK5qHHZQTLYtmK3qRBOg EDKzNHR1IH9gKLGdeSUlZL OsKYQro58mrSU9duFuXkNf IBFnnclrHLB3JU4aN2OhkY Lpo3PjSYkeFlSmrMMwApLb bNRzThXuE22wBVzwaGJfYG kgDECyhQyfDCd0DZyoo6Ni MYVvfXByND1cEVR6Xr4bjZ OcZBNeerK5f2FcEEjbGUOx NvegERSfQ9XmG9ysXE6aVc BpcyByZWNlaXZlZCBpbiBm a0LnMPjirhYiRLAszTJiWK dpdGggdGhlIHBhdGllbnQn laNmIZ6nFPXXLSIqeF5jMK KrULStBGB7LZ2wTYSxZZFg SgUktkVjW15yd2zwwLNlv4 VwBYCgwN4ifLSwzPUrPLnr LMlaD23tKYYvMX99LNclEZ 1bSXczGI0kSUMwUKV5mRru aCBpcyBlbnRpcmVseSBpbm tlZCBibHVlIGFuZCBzdWJt oPA9QCMjvW9kcE96ayCaiv CIEH2jsTDbWKBkGODbaSSw OFbuvWVokjPiJEi9EZKvhP 1kWg1onSXnmL6gzJPdCDof NHF2hLDcCURfECWgRBDbXV 57D5LqwsMuLAnrZKwpfgNg TuNzPYNcfecsePCdxXN6HR NuwJFwwGF2UtZbnqJeJ40q k9bpuCXgq1DbKGBjgT5nsO FdlPRzWQrvNTigP61aQXHh Qt8rALxcIX4pBVxaKP0cUQ YoCLK4yUxxrDQjdrAwfgDs cmVseSBpbmtlZCBibHVlIG ToTEHvoXFkaWM3FFVajT1e qB02rgQtsjIQRK3iwJBlWZ NwZWNpbWVuIEggaXMgcmVj VLy3HKTptL1bOw7crNTyiM 4tmZJnKZzoJHD1vFHtROKc TCVhETCqEE20Y5FwggQhBC wgVUggbnVtYmVyLCAicmln oZHonMN3KJSbnOUjoQQuVN EoHRInk15myQA1dcJsZvCw WYKvpjtdYZW6FY2mE8UjqJ Kls3XeDKmcMdbriKJtXkJs jRJnYrCsT26jLIwthLIsSV xpVDRcvOpwJRu8VCyrp5Nj JHDdyYObOJ5nXNF4Dl0onY NzQHBwmhU9e5BdGMjmJKrs GmoaNJOdV8MnV9xqJU8bMG BpcyByZWNlaXZlZCBpbiBm v5OvWPezjnKsRGOyyWGwSC dpdGggdGhlIHBhdGllbnQn biLsSU1uXYTBCSFxrX0rRL IsICJyaWdodCBsYXRlcmFs XWUbz0TbSINeRDUjd40gsN X2kmLrEpSlOIKgwrvuYIL5 KD2hF4LluMMmt3JqAFypHs fsxWNyPtSgiVFyRyEvE44l IHdoaWNoIGlzIGVudGlyZW u4RXvil6RxXLFbzFAqKH6z NNW5Cv1ylFYwJEYgpvQ0z3 VdDNigLBjpQqrcHIVfS9Lw A8ysTG0wOlWiotSlZAWkeN FyYLYdoiMyc2RsENlcrsVk YWJlbGVkIHdpdGggdGhlIH BtjWhweaGomgIoGD8bNFMU MUggbnVtYmVyLCAicmlnaH QgbWlkIGFwZXgiIGFuZCBj s60mdKS9gaDsWkAtBVChfy xvZWS3QW4qZ3OqgTRdt0Gk ICgxLjcgeCAwLjEgeCAwLj WrY81hUGkylDTtZNhfCPWq iZfuFPc9HWmss9OzIAJxlS QhGV1pFZB6Gk8mqXYkGRPx wsL5y1UlFGdtVJizGeyvVH AuI6RjM0qnQL0tVbMajiEn YPEpvBElIJInqmQso8HxBY xpbiBsYWJlbGVkIHdpdGgg dGhlIHBhdGllbnQncyBuYW 6zIQLNEBUiiD4qZHBmCKMc aWdodCBtaWQgbWlkIiBhbm LxG57gz9yrcJHjd7YxDHWm zG6loOGuqRBxOMnnOWzxX6 5aEBZiDq2hLDkcVR1mGOel XC5lZLKdTDW0kNydkVFdqf BlbnRpcmVseSBpbmtlZCBi kKQcZPBjPFCmcFEhiGC5JK CmdL6ljJ47miHutlZGTN6q cGFyIFNwZWNpbWVuIEwgaX PltgDoQRi1INIidQ6mTj2o zEZzjE0tdEXjESnnLRU7sR SwVVTxKBDkGDPjHW94Y0Rx bmFtZSwgVUggbnVtYmVyLC BngkdqhRPndWzxGHKek6Qc HKIvPINqj24vmBI6kxIkDk QhSDKcznjlMWG4LV8fS7Wj fUEam9SoEZdjPuCzhGPtGy NvxQLzCyPyO35tXRxtiSNa GFsiZMJakFexRRm7ERydf1 MtQVGoyXXxUV9eFRK6Ja6y bZKuGKAwsvK1k5InEPabNY wxLlxwYXJccGFyZFxwbGFp jipkSJxpyhU4YDJqTDllSN YxXGZzMjBcbGFuZzEwMzNc aGljaFxmMVxkYmNoXGYxXG tdR8eoWaPlBnKeLSZVpLgq XBKMO3nlwTJcFMplJDMQNO BsYWluXGYyXGZzMTZcbGFu ZzEwMzNcaGljaFxmMlxkYm HgMSQxCTxfK2aqLeFbN9Js XGZzMTZccGFyXHBsYWluXG YxXGZzMjRccGFyXHFsXHBs YWluXGYwXGZzMjRccGxhaW 9hLuFvQhEfUFpxKC7bVWGx H1zqgXGqRJVdSRZxM7hmTg QpnA9koIrmHPbizfJbSHYf cn0= Embedded Images (test code = [id number]) [facility] [id number] 23:07:00 Test Item Value Reference Range Interpretation Comments PSA (test code = 29.30 ng/mL See_Comment H [Automated [id number]) message] The system which generated this result transmitted reference range : <=4.00. The reference range was not used to interpret this result as normal/abnormal . BEVERLEY (test code = BEVERLEY) Biotin has been reported to cause a negative bias, interpret results relative to patient's use of biotin. Lab Interpretation Abnormal (test code = 83748-6) [facility]
[2021-05-21] MEDS ORDERED: Ringers Lactate 1,000 ML IV ONE (09:04)
[2021-05-21 09:08] LABS: Absolute Lymphocytes (CBC) 0.7 K/uL (0.7-4.9); Hematocrit 40.5 % (39.6-49.0); MPV 9.5 fL (7.6-11.3); RBC Red Blood Cell Count 4.51 M/uL (4.33-5.43)
[2021-05-21 09:18] LABS: Protime INR 1.09
[2021-05-21 09:33] LABS: ALT/SGPT 16 U/L (12-78); AST/SGOT 16 U/L (15-37); Albumin 3.4 g/dL (3.4-5.0); Alkaline Phosphatase 83 U/L (45-117); BUN Blood Urea Nitrogen 21 mg/dL (7-18); Bicarbonate 27 mmol/L (21-32); Bilirubin Direct 0.1 mg/dL (0-0.2); Bilirubin Total 0.5 mg/dL (0.2-1.0); Glucose Level 105 mg/dL (74-106); Lipase 74 U/L (73-393); Potassium 3.9 mmol/L (3.5-5.1); Protein, Total 6.9 g/dL (6.4-8.2); Sodium Level 138 mmol/L (136-145)
--- NOTE | 2021-05-21 10:06 | RAD REPORT ---
EXAM DESCRIPTION: RAD - Chest Single View - 05/21/2021 10:00 am CLINICAL HISTORY: atrial fibrillation Chest pain. COMPARISON: Chest Single View dated 04/29/2021; Chest Single View dated 03/20/2021; Chest Single View d ated 07/22/2016; Chest Single View dated 07/18/2016 FINDINGS: Portable technique limits examination quality. Interstitial markings are prominent bilaterally which could indicate mild interstitial pulmonary parker a. The heart is upper limit normal in size. No displaced fractures. IMPRESSION: Mild CHF is possible.
--- NOTE | 2021-05-21 10:35 | RAD REPORT ---
EXAM DESCRIPTION: CT - Head Brain Wo Cont - 05/21/2021 10:28 am CLINICAL HISTORY: HEADACHE COMPARISON: Head Brain Wo Cont dated 04/29/2021 TECHNIQUE: All CT scans are performed using dose optimization technique as appropriate and may inclu de automated exposure control or mA/KV adjustment according to patient size. FINDINGS: No intracranial hemorrhage, hydrocephalus or extra-axial fluid collection.No areas of brai n edema or evidence of midline shift. The paranasal sinuses and mastoids are clear. The calvarium is intact. IMPRESSION: No acute intracranial abnormality.
--- NOTE | 2021-05-21 10:38 | RAD REPORT ---
EXAM DESCRIPTION: CTAbdomen Pelvis W Contrast - 05/21/2021 10:28 am CLINICAL HISTORY: Abdominal pain. ABD PAIN COMPARISON: No comparisons TECHNIQUE: Biphasic CT imaging of the abdomen and pelvis was performed with 100 ml non-ionic IV cont rast. All CT scans are performed using dose optimization technique as appropriate and may include automated exposure control or mA/KV adjustment according to patient size. FINDINGS: The lung bases are emphysematous but clear.Small hiatal hernia. The liver demonstrates no focal mass or biliary dilatation. Cholecystectomy clips. The spleen, pancre as, adrenal glands are normal. Cysts are present in both kidneys without hydronephrosis. No bowel obstruction, free air, free fluid or abscess. Sigmoid diverticulosis without diverticulitis. Appendectomy. No evidence of significant lymphadenopathy. Prostate gland is mildly enlarged and pro jects into the bladder base. Moderate lumbar degenerative changes. IMPRESSION: No acute intra-abdominal or pelvic finding. Prostate gland enlargement is noted. Sigmoid diverticulosis without diverticulitis.
--- NOTE | 2021-05-21 12:01 | ER ---
Nurse's Notes [facility] Name: Jesse Serna Age: 80 yrs Sex: Male : 1940 Arrival Date: 05/21/2021 Time: 08:47 Bed 18 Private MD: Diagnosis: Unspecified atrial fibrillation;Abdominal pain, Generalized;Headache Presentation: 05/21 08:50 Chief complaint: Patient states: Patient received by EMS stretcher alert and awake with ag7 complaints of migraine headache, stomach pain, and shortness of breath. Family at bedside. Bel[place]ian speaking. Coronavirus screen: Client denies travel out of the [place] in the last 14 days. At this time, the client does not indicate any symptoms associated with coronavirus-19. Ebola Screen: No symptoms or risks identified at this time. Initial Sepsis Screen: Does the patient meet any 2 criteria? No. Patient's initial sepsis screen is negative. Does the patient have a suspected source of infection? No. Patient's initial sepsis screen is negative. Risk Assessment: Do you want to hurt yourself or someone else? Patient reports no desire to harm self or others. Onset of symptoms was May 21, 2021. 08:50 Method Of Arrival: EMS: [facility] ag7 08:50 Acuity: KT 2 ag7 Historical: - Allergies: 08:53 No Known Allergies; ag7 - Home Meds: 08:53 Metoprolol Tartrate Oral [Active]; tamsulosin Oral [Active]; ag7 09:13 enalapril maleate Oral [Active]; ag7 - PMHx: 08:53 Hypertension; prostate cancer- in remission; Atrial fibrillation; Arthritis; ag7 - PSHx: 08:55 Appendectomy; ag7 - Immunization history:: Adult Immunizations Client reports receiving the 2nd dose of the Covid vaccine, Flu vaccine is up to date. - Social history:: Smoking status: Smoking status: Patient/guardian denies using tobacco, but has a distant history of tobacco abuse. Screenin:58 Abuse screen: Denies threats or abuse. Nutritional screening: No deficits noted. ag7 Tuberculosis screening: No symptoms or risk factors identified. Fall Risk Secondary diagnosis (15 points) impaired mobility, Assessment: 09:14 General: Appears in no apparent distress. Behavior is calm, cooperative. Pain: ag7 Complains of pain in umbilical area, head generalized Pain does not radiate. Pain currently is 8 out of 10 on a pain scale. Quality of pain is described as aching, Pain began suddenly, Is continuous. Neuro: Level of Consciousness is awake, alert, obeys commands, Oriented to person, place, situation, Appropriate for age. Cardiovascular: Heart tones present irregular. Capillary refill < 3 seconds is brisk Patient's skin is warm and dry. Pulses are all present. are 2+ in right radial artery, right dorsalis pedis artery, left radial artery and left dorsalis pedis artery Edema is absent. Rhythm is atrial fibrillation with rapid ventricular response Chest pain is denied. Respiratory: Breath sounds are diminished bilaterally. GI: Abdomen is non-distended, Bowel sounds present X 4 quads. 10:15 Reassessment: pt with a rhythm change to normal sinus. provider notified and repeat EKG jd3 done. 10:55 Reassessment: Patient and/or family updated on plan of care and expected duration. Pain jd3 level reassessed. Patient is alert, oriented x 3, equal unlabored respirations, skin warm/dry/pink. Patient states feeling better. 12:00 Reassessment: No changes from previously documented assessment. ag7 Vital Signs: 08:50 BP 140 / 90; Pulse 145; Resp 28; Temp 98.1(TE); Pulse Ox 99% ; Pain 8/10; ag7 09:03 BP 119 / 72; Pulse 96; Resp 27; Pulse Ox 96% on R/A; Pain 8/10; ag7 09:30 BP 138 / 88; Pulse 98; Resp 21; Pulse Ox 98% on R/A; ag7 10:53 BP 131 / 77; Pulse 75; Resp 18 S; Pulse Ox 99% on R/A; jd3 11:01 BP 132 / 62; Pulse 60; Resp 15; Pulse Ox 97% on R/A; Pain 0/10; ag7 12:00 BP 122 / 80; Pulse 53; Resp 16 S; Pulse Ox 98% on R/A; Pain 0/10; ag7 12:30 BP 143 / 62; Pulse 58; Resp 19 S; Pulse Ox 99% on R/A; Pain 0/10; ag7 ED Course: 08:47 Patient arrived in ED. em1 08:49 Grace Holloway, RN is Primary Nurse. ag7 08:50 Matthew Escobar DO is Attending Physician. ms3 08:53 Triage completed. ag7 10:00 XRAY Chest (1 view) In Process Unspecified. EDMS 10:28 CT Head Brain wo Cont In Process Unspecified. EDMS 10:28 CT Abd/Pelvis - IV Contrast Only In Process Unspecified. EDMS 10:59 Arm band placed on right wrist. ag7 11:01 Patient has correct armband on for positive identification. Bed in low position. Call ag7 light in reach. Side rails up X 1. Adult w/ patient. 11:59 Carlos Warner MD is Referral Physician. ms3 12:43 No provider procedures requiring assistance completed. ag7 12:45 IV discontinued, intact, bleeding controlled, No redness/swelling at site. Pressure ag7 dressing applied. Administered Medications: 09:08 Drug: Lactated Ringers Solution 1000 ml Route: IV; Rate: 1000 ml/hr; Site: right ag7 antecubital; 10:58 Follow up: IV Status: Completed infusion; IV Intake: 1000ml ag7 12:41 Drug: Eliquis (apixaban) 5 mg Route: PO; ag7 12:59 Follow up: Response: Medication administered at discharge. ag7 Intake: 10:58 IV: 1000ml; Total: 1000ml. ag7 Outcome: 12:00 Discharge ordered by . ms3 12:44 Discharged to home ambulatory. ag7 12:44 Condition: stable 12:44 Discharge instructions given to patient, family, Instructed on discharge instructions, follow up and referral plans. medication usage, Demonstrated understanding of instructions, follow-up care, medications, Prescriptions given X 1. 13:01 Patient left the ED. ag7 Signatures: Dispatcher [employer] EDMS Milton Galloway em1 Donn Lyles RN RN jd3 Matthew Escobar DO DO ms3 Grace Holloway, ARA RN ag7 Corrections: (The following items were deleted from the chart) 10:56 10:55 Reassessment: pt with a rhythm change to normal sinus. provider notified and jd3 repeat EKG done jd3
--- NOTE | 2021-05-21 12:01 | EDPHYS ---
Physician Documentation [facility] Name: Jesse Serna Age: 80 yrs Sex: Male : 1940 Arrival Date: 05/21/2021 Time: 08:47 Bed 18 Private MD: ED Physician Matthew Escobar HPI: 05/21 09:26 This 80 yrs old Male presents to ER via EMS with complaints of Headache, ms3 Abdominal pain. 09:26 80-year-old male presents via [facility] for headache and abdominal pain that began ms3 at 7:30 AM. Patient rates his headache and abdominal pain an 8/10. Patient states his abdominal pain is located in the periumbilical region. Patient states his headache is global. Patient denies alleviating or inciting factors. Patient denies nausea, vomiting, diarrhea, fevers, chills. EMS states they administered 324 mg aspirin in route.. Onset: The symptoms/episode began/occurred 2 hour(s) ago. Severity of symptoms: in the emergency department the symptoms are unchanged. Historical: - Allergies: 08:53 No Known Allergies; ag7 - Home Meds: 08:53 Metoprolol Tartrate Oral [Active]; tamsulosin Oral [Active]; ag7 09:13 enalapril maleate Oral [Active]; ag7 - PMHx: 08:53 Hypertension; prostate cancer- in remission; Atrial fibrillation; Arthritis; ag7 - PSHx: 08:55 Appendectomy; ag7 - Immunization history:: Adult Immunizations Client reports receiving the 2nd dose of the Covid vaccine, Flu vaccine is up to date. - Social history:: Smoking status: Smoking status: Patient/guardian denies using tobacco, but has a distant history of tobacco abuse. ROS: 09:28 Constitutional: Negative for fever, and chills. Eyes: Negative for injury, pain, ms3 redness, and discharge, Cardiovascular: Negative for chest pain, and palpitations. Respiratory: Negative for shortness of breath, cough, wheezing, and pleuritic chest pain, Abdomen/GI: Negative for abdominal pain, nausea, vomiting, diarrhea, and constipation, Back: Negative for injury and pain, MS/Extremity: Negative for injury and deformity, Skin: Negative for injury, rash, and discoloration. 09:28 Abdomen/GI: Positive for abdominal pain. 09:28 Neuro: Positive for headache. 09:28 All other systems are negative. Exam: 09:30 Constitutional: This is a well developed, well nourished patient who is awake, alert, ms3 and in no acute distress. Head/Face: Normocephalic, atraumatic. Chest/axilla: Normal chest wall appearance and motion. Nontender with no deformity. Respiratory: Lungs have equal breath sounds bilaterally, clear to auscultation and percussion. No rales, rhonchi or wheezes noted. No increased work of breathing, no retractions or nasal flaring. 09:30 Cardiovascular: Rate: tachycardic, Rhythm: irregularly irregular, JVD: is not appreciated. 09:30 ECG was reviewed by the Attending Physician. Vital Signs: 08:50 BP 140 / 90; Pulse 145; Resp 28; Temp 98.1(TE); Pulse Ox 99% ; Pain 8/10; ag7 09:03 BP 119 / 72; Pulse 96; Resp 27; Pulse Ox 96% on R/A; Pain 8/10; ag7 09:30 BP 138 / 88; Pulse 98; Resp 21; Pulse Ox 98% on R/A; ag7 10:53 BP 131 / 77; Pulse 75; Resp 18 S; Pulse Ox 99% on R/A; jd3 11:01 BP 132 / 62; Pulse 60; Resp 15; Pulse Ox 97% on R/A; Pain 0/10; ag7 12:00 BP 122 / 80; Pulse 53; Resp 16 S; Pulse Ox 98% on R/A; Pain 0/10; ag7 12:30 BP 143 / 62; Pulse 58; Resp 19 S; Pulse Ox 99% on R/A; Pain 0/10; ag7 MDM: 08:50 Patient medically screened. ms3 11:57 ED course: Discussed case with Dr Sampson and patient does not need admission. ms3 Recommends starting Elloquis 5 mg BID.CHADS VASC 4.. 12:41 Differential Diagnosis ICH vs A Fib with RVR vs ischemic bowel vs bowel obstruction. ms3 Data reviewed: vital signs, nurses notes, lab test result(s), EKG, radiologic studies. Data interpreted: Pulse oximetry: on room air is 99 %. 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 ED course: Discussed labs, X-ray, EKG, PE findings with patient and his daughter. Patient given Rx for Eliquis. Discussed need for Rx with patient and his daughter. Patient understands need to follow up with Dr Vivas within 48 hours. Return precautions given to include worsening symptoms, or any other concerns. On re-evaluation patient is improved, in nad, non-toxic, ambulatory in ED, speaking full sentences, cafeteria monitor shows NSR HR 72.. 05/21 08:54 Order name: CBC with Diff; Complete Time: 09:54 ms3 05/21 08:54 Order name: Lactate; Complete Time: 10:58 ms3 05/21 08:54 Order name: Basic Metabolic Panel ms3 05/21 08:54 Order name: LFT's ms3 05/21 08:54 Order name: Lipase ms3 05/21 08:55 Order name: Troponin High Sensitivity ms3 05/21 08:54 Order name: CT Head Brain wo Cont; Complete Time: 10:58 ms3 05/21 08:54 Order name: CT Abd/Pelvis - IV Contrast Only; Complete Time: 10:58 ms3 05/21 08:55 Order name: Troponin High Sensitivity EDMS 05/21 09:00 Order name: XRAY Chest (1 view); Complete Time: 10:58 ms3 05/21 09:00 Order name: PT-INR; Complete Time: 09:54 ms3 05/21 08:58 Order name: EKG; Complete Time: 08:58 ms3 05/21 08:58 Order name: Cardiac monitoring; Complete Time: 09:08 ms3 05/21 08:58 Order name: EKG - Nurse/Tech; Complete Time: 09:09 ms3 05/21 08:58 Order name: IV Saline Lock; Complete Time: 09:08 ms3 05/21 08:58 Order name: Labs collected and sent; Complete Time: 09:09 ms3 05/21 08:58 Order name: O2 Per Protocol; Complete Time: 09:09 ms3 05/21 08:58 Order name: O2 Sat Monitoring; Complete Time: 09:09 ms3 EC:56 Rate is 125 beats/min. Rhythm is irregular. Left axis deviation noted. Clinical ms3 impression: Atrial Fibrillation. Interpreted by me. 11:03 Rate is 68 beats/min. Rhythm is regular. QRS interval is prolonged at 140 msec. ms3 Clinical impression: NSR w/ Non-specific ST/T Changes. Interpreted by me. Reviewed by me. Administered Medications: 09:08 Drug: Lactated Ringers Solution 1000 ml Route: IV; Rate: 1000 ml/hr; Site: right ag7 antecubital; 10:58 Follow up: IV Status: Completed infusion; IV Intake: 1000ml ag7 12:41 Drug: Eliquis (apixaban) 5 mg Route: PO; ag7 12:59 Follow up: Response: Medication administered at discharge. ag7 Disposition Summary: 05/21/21 12:00 Discharge Ordered Location: Home ms3 Condition: Stable ms3 Diagnosis - Unspecified atrial fibrillation ms3 - Abdominal pain, Generalized ms3 - Headache ms3 Followup: ms3 - With: Carlos Warner MD - When: 1 - 2 days - Reason: Recheck today's complaints Discharge Instructions: - Discharge Summary Sheet ms3 - Abdominal Pain, Adult ms3 - Atrial Fibrillation ms3 - Bleeding Precautions When on Anticoagulant Therapy, Adult ms3 Forms: - Medication Reconciliation Form ms3 - Thank You Letter ms3 - Antibiotic Education ms3 - Prescription Opioid Use ms3 Prescriptions: - ELIQUIS 5 mg - take 1 tablet by ORAL route 2 times per day for 14 days; 28 tablet; Refills: 0, ms3 Product Selection Permitted Signatures: Dispatcher [employer] Matthew Carias DO DO ms3 Grace Holloway, RN RN ag7
[2021-05-21] MEDS ORDERED: APIXABAN 5 MG TABLET ONE (12:32)
[2021-05-21 13:13] VITALS: TEMP 98.1
[2021-05-21 13:20] VITALS: BP 143/62; O2SAT 99
[2021-05-21 14:01] LABS: NT PRO-BNP 435 pg/mL (<450)
--- NOTE | 2021-05-22 13:12 | EKG ---
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
--- NOTE | 2021-05-22 13:12 | EKG ---
Test Date: 2021-05-21 Test Time: 10:37:42 Oven Worker: ALEM MEASUREMENT RESULTS: Intervals: Rate: 68 FL: 154 QRSD: 140 QT: 430 QTc: 457 [place]: P: 79 FL: 154 QRS: -80 T: 54 INTERPRETIVE STATEMENTS: Normal sinus rhythm Right bundle branch block Left anterior fascicular block Bifascicular block Abnormal ECG Compared to ECG 05/21/2021 08:56:54 Atrial fibrillation no longer present Bifascicular block still present Electronically Signed On 05-22-21 13:08:22 RN LPN LVN by Solitario Guzmán
== END 2021-05-21 13:01 | disposition home or self-care (01) ==
LOC: ER 08:43
DX: I48.91 Unspecified atrial fibrillation (principal); R10.84 Generalized abdominal pain; R51.9 Headache, unspecified; I10 Essential (primary) hypertension; Z85.46 Personal history of malignant neoplasm of prostate
CPT/HCPCS: 36415; 70450; 71045; 74177; 80048; 80076; 83605; 83690; 83880; 84484; 85025; 85610; 93005; 96360; 96361; 99284; J7120; Q9967

== ENCOUNTER 2022-01-31 05:43 | Emergency (ER) | payer SELFPAY ==
--- OUTSIDE RECORDS SUMMARY | 2022-01-31 05:53 | XMS REPORT | Clinical Summary ---
:1940 Author Organization [facility] MD [facility] Address [address] [place] [address] Care Team Providers Name Role Phone Pako Lopez MD Unavailable Nick Delgado MD Primary Care Provider Marek Saini MD Unavailable Allergies No known active allergies Medications Medication Sig Dispensed Refills Start End Date Status Date acetaminophen Take 500 mg by 0 A ctive (TYLENOL) 500 mg mouth every 6 tablet (six) hours as needed for mild pain. aspirin 81 mg Chew 1 tablet 0 Ac tive chewable (81 mg) daily. 2 tabletIndications: heart health apixaban (Eliquis) Take 1 tablet 60 tablet 5 Active 5 mg (5 mg) by 2 tabletIndications: mouth every 12 prevent blood clot (twelve) hours. tamsulosin (FLOMAX) Take 1 capsule 60 capsule 11 Active 0.4 mg 24 hr (0.4 mg) by 2 capsuleIndications: mouth twice Adenocarcinoma of daily. prostate atorvastatin TAKE ONE 30 tablet 3 Active (LIPITOR) 80 mg TABLET BY 2 tabletIndications: MOUTH EVERY Adenocarcinoma of NIGHT AT prostate BEDTIME tamsulosin (FLOMAX) Take 2 60 capsule 6 Active 0.4 mg 24 hr capsules (0.8 2 capsuleIndications: mg) by mouth Adenocarcinoma of at bedtime. prostate enalapril (VASOTEC) TAKE ONE 30 tablet 3 Active 20 mg TABLET BY 2 tabletIndications: MOUTH DAILY Adenocarcinoma of (SKIP DOSE IF prostate SYSTOLIC BLOOD PRESSURE IS LESS THAN 110) pantoprazole TAKE ONE 30 tablet 5 Active (PROTONIX) 40 mg EC TABLET BY 2 tabletIndications: MOUTH DAILY Adenocarcinoma of prostate metoprolol TAKE ONE 90 tablet 1 Active succinate (TOPROL TABLET BY 2 XL) 25 mg 24 hr MOUTH ONCE tabletIndications: DAILY ( HOLD Essential (primary) DOSE IF SBP hypertension <110 OR HR <55 ) ibuprofen (AdviL) Take 200 mg by 0 0 Discontinued 200 mg tablet mouth every 09 02 (S top Taking at (six) hours as Disch arge) needed for mild pain. As needed for back pain cholecalciferol, Take 2,000 0 05/27/19 Di scontinued vitamin D3, Units by mouth ( erapy (VITAMIN D3) 2,000 twice daily. completed) units tab tablet Patient instructed to take twice a day pantoprazole Take 1 tablet 30 tablet 5 05/27/19 Dis continued (Protonix) 40 mg EC (40 mg) by 04 04 (Reorder) tabletIndications: mouth daily Adenocarcinoma of with prostate breakfast. leuprolide, 4 Inject 30 mg 0 05/27/19 Dis continued month, (Eligard, 4 under the skin (Therapy month,) 30 mg every 4 (four) c ompleted) injection months. Last dose 05/16/2020 bicalutamide Take 1 tablet 30 tablet 0 05/27/19 Dis continued (CASODEX) 50 mg (50 mg) by 04 04 ( erapy tabletIndications: mouth daily. completed) Adenocarcinoma of prostate enalapril (VASOTEC) Take 1 tablet 90 tablet 2 Discontinued 10 mg (10 mg) by 04 04 tabletIndications: mouth daily. blood pressure Hold dose if systolic blood pressure (top number) is less than 110. tamsulosin (FLOMAX) Take 2 60 capsule 6 10/06/19 Discontinued 0.4 mg 24 hr capsules (0.8 1 (Re order) capsuleIndications: mg) by mouth Adenocarcinoma of at bedtime. prostate diphenoxylate-atrop Take 1 tablet 45 tablet 0 Discontinued ine (LomotiL) 2.5 by mouth every 04 04 (Therapy mg-0.025 mg per 6 (six) hours completed) tabletIndications: as needed for Diarrhea diarrhea. 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 tabletIndications: Hold dose if blood pressure, systolic blood heart rate pressure (top number) is less than 110 or heart rate less than 55. apixaban (Eliquis) Take 1 tablet 60 tablet 5 0 Discontinued 5 mg (5 mg) by 04 04 (Reorder) tabletIndications: mouth every 12 Paroxysmal atrial (twelve) fibrillation hours. enalapril (VASOTEC) TAKE ONE 90 tablet 2 05/27/19 Discontinued 10 mg TABLET BY 05 05 (Stop Taki ng at tabletIndications: MOUTH DAILY ( Discharge) Essential (primary) HOLD DOSE IF hypertension SBP<110 ) enalapril (VASOTEC) Take 1 tablet 30 tablet 3 Discontinued 20 mg (20 mg) by 2 22 tabletIndications: mouth daily. high blood pressure Skip dose if systolic blood pressure (top number) is less than 110. atorvastatin Take 1 tablet 30 tablet 3 09/25/19 Dis continued (LIPITOR) 80 mg (80 mg) by 2 22 tabletIndications: mouth at Adenocarcinoma of bedtime. prostate pantoprazole Take 1 tablet 30 tablet 5 11/20/19 Dis continued (Protonix) 40 mg EC (40 mg) by 22 tabletIndications: mouth daily. prevent heartburn/indigesti on and acid reflux Active Problems Patient Care Coordination Note Formatting of this note might be differe nt from the original. Patient with cognitive issues and needs assistance with ADLs. Please allow daughter to accompany him to clinic visits and procedures . The following people are approved to obt ain medical information about the patient via phone: Contact #1: Name: Latoya Serna ( Daughter ) [phone] Contact #2: Name: Phone Number: Contact #3: Name: Phone Number: Contact #4: Name: Phone Number: Patient has some cognitive deficiency at will require assistance by his daughter during procedures and clinic visits. Problem Noted Date Acute coronary syndrome 05/24/2021 High troponin I level 05/24/2021 Dyspnea 05/22/2021 Abdominal pain 05/22/2021 Atrial fibrillation 08/22/2020 Last Assessment & Plan: Formatting of is note might be different from the original. Patient had an episode of atrial fibrill ation with a heart rate of 95 bpm on EKG 08 27 2020 when he presented status post fall. On exam patient is in a regular rate and rhythm. Most recent EKG shows sin us rhythm. Asymptomatic for palpitations . Continue rhythm control on metoprolol succinate 25 mg p.o. daily. CHADS-VASc: 3 (HTN, age x 2) HAS-BLED: 1 (fall) with prior recommendation for patient to be st arted on anticoagulation. Was seen and e mailed cardiology attending and primary team regarding starting patient on Eliquis 5 mg p.o. twice daily. 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 Blood pressure modestly controlled in e clinicat 146/71. Continue management with metoprolol succinate 25 mg daily and enalapril 10 mg p.o. 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 09/23/2021 Refill Genitourinary Yfn Palacios MD Adenocarci noma of Oncology prostate 09/23/2021 Refill Radiation Oncology Ashley Jones 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, 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 09/21/2021 Refill Genitourinary Yfn Palacios MD Adenocarci noma of Oncology prostate 05/22/2021 Hospital Encounter Thoracic Surgery Oghogho, Adeno carcinoma of prostate (Primary Dx); - MD Nida Acute coronary syndrome; 05/26/2021 Zoey Cummins MD Atrial fibrillation, not otherwise speci fied; Chaftari, Paroxysmal atri al fibrillation MD Tammi Espino Pavlos, MD Araujo, John, MD 05/22/2021 Travel 05/17/2021 Refill Genitourinary Robert, Essential (sukumar yas) Oncology Renju, DRY ROLLER hypertension 04/29/2021 Orders Only Cardiology Joe Baldwin atri al Oma, PA fibrillation (Primary Dx) 04/29/2021 Telephone Radiation Oncology Serena Stuart, CYANIDE FURNACE OPERATOR 03/20/2021 Orders Only Cardiology Zachary, Essential (prim aislinn) Angelika Rush RN hypertensio n (Primary Dx) 03/20/2021 Documentation Cardiology Angelika Sharma RN after 01/31/2021 Immunizations Name Administration Dates Next Due Kendra SARS-CoV-2 Vaccination 05/31/2020 remdesivir 03/07/2020, 03/06/2020, 03/05/2020, 03/04/2020, 03/03/2020 Surgical History Surgery Date Site/Laterality Comments LAPAROSCOPIC CHOLECYSTECOMY PROSTATE BIOPSY 09/14/2019 HERNIA REPAIR Bilateral SHOULDER SURGERY 03/14/2011 - Right 03/13/2012 NM COLONOSCOPY FLX DX 07/28/2020 N/A Procedure: DIAGNOSTIC W/COLLJ SPEC WHEN PFRMD FLEXIBLE COLONOSCOPY PROXIMAL TO SPLE ARAVIND FLEXURE; Surgeon : Mian Rachel MD; Location: MAIN E NDOSCOPY; Service: GASTROE NTEROLOGY Medical History Medical History Date Comments Essential hypertension Chronic depression Adenocarcinoma of prostate 09/14/2019 Social History Tobacco Use Types Packs/Day Years Used Date Smoking Tobacco: Former Cigarettes 0.5 43 1964 - 2007 Smokeless Tobacco: Never Comments: used to smoke; quit 12 years a go Alcohol Use Standard Drinks/Week Comments Not Currently 0 (1 standard drink = 0.6 oz pure alcoho l) Alcohol Habits Answer Date Recorded How often do you have a drink containing alcohol? Never 02/13/2020 How many drinks containing alcohol do you have on a typical Not asked 02/13/2020 day when you are drinking? How often do you have six or more drinks on one occasion? Ne nehemias 02/13/2020 Sex Assigned at Date Recorded Male 05/22/2021 5:00 PM [employer] Job Start Date Occupation Industry Not on file Not on file Not on file Obstetrics History Last Filed Vital Signs Vital Sign Reading Time Taken Comments Blood Pressure 139/79 05/26/2021 3:34 PM CDT Pulse 58 05/26/2021 3:34 PM CDT Temperature 36.7 C (98.1 F) 05/26/2021 2:59 PM CDT Respiratory Rate 18 05/26/2021 2:59 PM CDT Oxygen Saturation 95% 05/26/2021 3:34 PM CDT Inhaled Oxygen Concentration - - Weight 62.8 kg (138 lb 7.2 oz) 05/22/2021 9:14 PM [employer] Height 161 cm (5' 3.39") 05/22/2021 9:14 PM [employer] Body Mass Index 24.23 05/22/2021 9:14 PM [employer] Plan of Treatment Health Maintenance Due Date Last Done Comments COVID-19 Vaccination (2 - Kendra risk series) 06/28/2020 0 05/31/2020 Procedures Procedure Name Priority Date/Time Associated Comments Diagnosis TROPONIN T AM 05/26/2021 3:15 Results for this AM CDT procedure are i n the results section. LEFT HEART CATH Routine 05/25/2021 3:45 PM CDT ECHOCARDIOGRAM 2D STAT 05/25/2021 11:20 Result s for this COMPLETE AM CDT procedure are i n the results section. TESTOSTERONE LEVEL AM 05/25/2021 4:59 Result s for this AM CDT procedure are i n the results section. PROSTATE SPECIFIC AM 05/25/2021 4:59 Results for this ANTIGEN AM CDT procedure are i n the results section. TROPONIN T AM 05/25/2021 4:59 Results for this AM CDT procedure are i n the results section. CLOT EXPIRATION DATE Routine 05/24/2021 1:07 Resu lts for this PM CDT procedure are i n the results section. RETICULOCYTE COUNT Now 05/24/2021 1:07 Result s for this AUTOMATED PM CDT procedure are i n the results section. IMMATURE PLATELET Now 05/24/2021 1:07 Results for this FRACTION PM CDT procedure are i n the results section. PROTHROMBIN TIME Now 05/24/2021 1:07 Results for this PM CDT procedure are i n the results section. APTT Now 05/24/2021 1:07 Results for this PM CDT procedure are i n the results section. ABORH Now 05/24/2021 1:07 Results for this PM CDT procedure are i n the results section. CALCIUM LEVEL TOTAL AM 05/24/2021 4:19 Resul ts for this AM CDT procedure are i n the results section. .GLOMERULAR FILTRATION AM 05/24/2021 4:19 Re sults for this RATE AM CDT procedure are i n the results section. SERUM CREATININE AM 05/24/2021 4:19 Results for this AM CDT procedure are i n the results section. ELECTROLYTE PANEL AM 05/24/2021 4:19 Results for this AM CDT procedure are i n the results section. BLOOD UREA NITROGEN AM 05/24/2021 4:19 Resul ts for this AM CDT procedure are i n the results section. GLUCOSE LEVEL AM 05/24/2021 4:19 Results for this AM CDT procedure are i n the results section. TROPONIN T AM 05/24/2021 4:19 Results for this AM CDT procedure are i n the results section. PHOSPHORUS LEVEL AM 05/24/2021 4:19 Results for this AM CDT procedure are i n the results section. MAGNESIUM LEVEL AM 05/24/2021 4:19 Results f or this AM CDT procedure are i n the results section. BASIC METABOLIC PANEL, AM 05/24/2021 4:19 CALCIUM TOTAL AM CDT EKG, 12-LEAD (PORTABLE) Routine 05/24/2021 TROPONIN T Routine 05/23/2021 7:03 Results for this PM [employer] procedure are i n the results section. TROPONIN T Routine 05/23/2021 1:05 Results for this PM [employer] procedure are i n the results section. CALCIUM LEVEL TOTAL AM 05/23/2021 2:00 Resul ts for this AM [employer] procedure are i n the results section. .GLOMERULAR FILTRATION AM 05/23/2021 2:00 Re sults for this RATE AM [employer] procedure are i n the results section. SERUM CREATININE AM 05/23/2021 2:00 Results for this AM [employer] procedure are i n the results section. ELECTROLYTE PANEL AM 05/23/2021 2:00 Results for this AM [employer] procedure are i n the results section. BLOOD UREA NITROGEN AM 05/23/2021 2:00 Resul ts for this AM [employer] procedure are i n the results section. GLUCOSE LEVEL AM 05/23/2021 2:00 Results for this AM [employer] procedure are i n the results section. TROPONIN T AM 05/23/2021 2:00 Results for this AM [employer] procedure are i n the results section. PHOSPHORUS LEVEL AM 05/23/2021 2:00 Results for this AM [employer] procedure are i n the results section. MAGNESIUM LEVEL AM 05/23/2021 2:00 Results f or this AM [employer] procedure are i n the results section. BASIC METABOLIC PANEL, AM 05/23/2021 2:00 CALCIUM TOTAL AM [employer] CT ABDOMEN PELVIS W STAT 05/23/2021 12:00 Resu lts for this CONTRAST AM [employer] procedure are i n the results section. CT CHEST PULMONARY STAT 05/23/2021 12:00 Resul ts for this EMBOLISM W CONTRAST AM [employer] procedur e are in the results section. XR ABDOMEN 2 VW AP W STAT 05/22/2021 6:24 Resu lts for this UPRIGHT AND OR DECUBITUS PM [employer] pro cedure are in the results section. TROPONIN T STAT 05/22/2021 5:42 Results for this PM [employer] procedure are i n the results section. XR CHEST 1 VW Routine 05/22/2021 3:05 Results for this PM [employer] procedure are i n the results section. FRACTIONATED BILIRUBIN Now 05/22/2021 1:53 Re sults for this PM [employer] procedure are i n the results section. TOTAL PROTEIN Now 05/22/2021 1:53 Results for this PM [employer] procedure are i n the results section. ASPARTATE Now 05/22/2021 1:53 Results for this AMINOTRANSFERASE PM [employer] procedure a re in the results section. ALANINE AMINOTRANSFERASE Now 05/22/2021 1:53 Results for this PM [employer] procedure are i n the results section. ALKALINE PHOSPHATASE Now 05/22/2021 1:53 Resu lts for this PM [employer] procedure are i n the results section. ALBUMIN LEVEL Now 05/22/2021 1:53 Results for this PM [employer] procedure are i n the results section. CALCIUM LEVEL TOTAL Now 05/22/2021 1:53 Resul ts for this PM [employer] procedure are i n the results section. .GLOMERULAR FILTRATION Now 05/22/2021 1:53 Re sults for this RATE PM [employer] procedure are i n the results section. SERUM CREATININE Now 05/22/2021 1:53 Results for this PM [employer] procedure are i n the results section. ELECTROLYTE PANEL Now 05/22/2021 1:53 Results for this PM [employer] procedure are i n the results section. BLOOD UREA NITROGEN Now 05/22/2021 1:53 Resul ts for this PM [employer] procedure are i n the results section. GLUCOSE LEVEL Now 05/22/2021 1:53 Results for this PM [employer] procedure are i n the results section. MANUAL DIFFERENTIAL STAT 05/22/2021 1:53 Resul ts for this PM [employer] procedure are i n the results section. Results CBC STAT 05/22/2021 1:53 Results for this PM [employer] procedure are i n the results section. D DIMER Now 05/22/2021 1:53 Results for this PM [employer] procedure are i n the results section. APTT Now 05/22/2021 1:53 Results for this PM [employer] procedure are i n the results section. PROTHROMBIN TIME Now 05/22/2021 1:53 Results for this PM [employer] procedure are i n the results section. NT PRO BNP Now 05/22/2021 1:53 Results for this PM [employer] procedure are i n the results section. CARDIAC PANEL Timed Study 05/22/2021 1:53 Results for this PM [employer] procedure are i n the results section. PHOSPHORUS LEVEL Now 05/22/2021 1:53 Results for this PM [employer] procedure are i n the results section. MAGNESIUM LEVEL Now 05/22/2021 1:53 Results f or this PM [employer] procedure are i n the results section. COMPREHENSIVE METABOLIC Now 05/22/2021 1:53 PANEL PM [employer] COMPLETE BLOOD COUNT W/ Now 05/22/2021 1:53 DIFFERENTIAL PM [employer] RESPIRATORY VIRAL Now 05/22/2021 1:53 Results for this MULTIPLEX PCR PANEL, PM [employer] procedu re are in NASOPHARYNGEAL SWAB the resu lts section. POC TROPONIN I Routine 05/22/2021 1:49 Results fo r this PM [employer] procedure are i n the results section. EKG, 12-LEAD (PORTABLE) STAT 05/22/2021 EKG, 12-LEAD (PORTABLE) STAT 05/22/2021 after 01/31/2021 Results (ABNORMAL) Troponin T (In-House) (05/26/2021 3:15 AM CDT)Only the most recent of 7 resultswithin the time period is included. P athologist Signature Troponin T 79 (C) <=18 ng/L [facility] Comment: < 19 ng/L Suggest retest at 3 to 6 hours later to rule out myocardial infarction >= 19 to <=52 ng/L Pos sible myocardial injury. Suggest retest at 3 hours. - a change of < 20 ng/L, retest at 6 hours - a change of >= 20 ng/L, suggestive of myocardial infarction > 52 ng/L Suggestive of myocardial infarction Critical value will be reported when cTn T is > 52 ng/L and only reported for the first in a series. Hemolyzed specimens with Hemolysis Index >100 (100 mg/dl or moderate hemolysis) may cause interferences and falsely low results. Specimen Anatomical Collection Method Collection Time Receive d Time (Source) Location / / Volume Laterality Blood 05/26/2021 3:15 AM 2 3:51 CDT AM CDT Donell Saini NP LAB BLOOD ORDERABLES Performing Organization Address City/State/ZIP Code Phon e Number [facility] [place] [place] [facility] Unless otherwise noted, [place] [address] [facility] all lab tests performed by: Division of Pathology and Laboratory Medicine [id number] Left Heart Cath (05/25/2021 3:45 PM CDT) Specimen (Source) Anatomical Location Collection Method / Collectio n Time Received Time / Laterality Volume Narrative This result has an attachment that is no t available. Oma Gardoni PA CV CARDIAC CATH ORDERABLES Echocardiogram 2D Complete (05/25/2021 11:20 AM CDT) Specimen (Source) Anatomical Collection Method Collection Time Re ceived Time Location / / Volume Laterality 05/25/2021 8:49 AM CDT Narrative [facility] - 05/25/2021 5:42 PM CDT Echocardiographic Report Interpretation Summary A complete two-dimensional transthoracic echocardiogram was performed (2D, M- mode, Spectral and color Doppler). The study was technically difficult. Compared to prior study, there is no significant change. Normal left ventricular size and systoli c function. LV ejection fraction calculated using th e bi-plane method of disks is 60 %. The right ventricle is normal in size an d function. Right ventricular systolic pressure is n ormal. There is no pericardial effusion. Left Ventricle: Normal left ventricular size and systoli c function. There is normal left ventricular wall thickness. LV ejection fraction calculated using the bi-plane method of disks is 60 %. No regional wall motion abnormalities noted. I WMSI = 1.00 % Normal = 1 00 Normal global longitudinal peak systolic value. X - Cannot 1 - Normal 2 - 3 - Akinetic 4 - Dyskinetic Interpret Hyp okinetic 5 - Aneurysmal 3D imaginD volumes were not performed in this [facility]. Cardiac Mechanics/Speckle Tracking Imagi ng: Normal global longitudinal peak systolic value. Strain Imaging was performed; GLPS avg = -19.4%. Diastology: Impaired LV relaxation pattern of diasto lic dysfunction, Doppler suggests normal LA pressures. Right Ventricle: The right ventricle is normal in size an d function. Normal RV systolic function using TAPSE criteria. Atria: Atria are normal in size. Mitral Valve: The mitral valve is grossly normal. Ther e is no mitral valve stenosis. There is trace mitral regurgitation. Tricuspid Valve: The tricuspid valve is not well visualiz ed, but is grossly normal. There is no tricuspid valve stenosis. There is trace tricuspid regurgitation. Estimated RVSP is 25-30mmHg. Right ventricular systolic pressure is normal. Aortic Valve: The aortic valve is trileaflet. The aort ic valve opens well. No aortic regurgitation is present. Pulmonic Valve: The pulmonic valve is not well visualize d. There is no pulmonic valvular stenosis. Mild pulmonic valvular regurgitation. Great Vessels: The aortic root is normal size. IVC is s mall, consistent with intravascular depletion. Pericardium/Pleural: There is no pericardial effusion. Preliminary Reviewer Preliminary Interpretation: Rody Blanchard MD. MMode/2D Measurements IVSd: 0.93 cm LVIDd: 5.4 cm LVPWd: 1.0 cm Ao root diam: 3.1 cm LVOT diam: 2.4 cm Ao root area: 7.5 cm2 LVOT area: 4.4 cm2 LA dimension: 4.1 cm EDV(MOD-A4C): 72.8 ml EDV(MOD-A2C): 91.6 ml ESV(MOD-A4C): 28.7 ml ESV(MOD-A2C): 38.3 ml EF(MOD-A4C): 60.6 % EF(MOD-A2C): 58.2 % LAV(MOD-A2C): 38.9 ml EDV(MOD-bp): 83.2 ml LAV(MOD-A4C): 42.1 ml ESV(MOD-bp): 33.1 ml LAV(MOD-bp): 40.1 ml EF(MOD-bp): 60.3 % LAV(MOD-bp) Indexed: 24.2 ml/m2 EDV (MOD-bp) Index: 50.1 ml/m2 ESV (MOD- bp) Index: 19.9 ml/m2 RWT: 0.39 cm TAPSE (>1.6): 2.5 cm Doppler Measurements MV E max kaden: 29.3 cm/sec MV P1/2t max kaden: 28.7 cm/sec MV A max kaden: 56.9 cm/sec MV P1/2t: 91.2 msec MV E/A: 0.51 MVA(P1/2t): 2.4 cm2 MV dec slope: 92.3 cm/sec2 Ao V2 max: 151.0 cm/sec LV V1 max P.5 mmHg Ao max P.1 mmHg LV V1 mean P.0 mmHg Ao V2 mean: 97.6 cm/sec LV V1 max: 127.3 cm/sec Ao mean P.2 mmHg LV V1 mean: 80.9 cm/sec Ao V2 VTI: 26.0 cm LV V1 VTI: 22.3 cm CINDI(I,D): 3.8 cm2 CINDI(V,D): 3.7 cm2 SV(LVOT): 98.6 ml PI max kaden: 212.5 cm/sec PI max P.1 mmHg PI dec slope: 129.5 cm/sec2 Med Peak E' Kaden: 5.9 cm/sec Lat Peak E' Kaden: 9.4 cm/sec TR max kaden: 240.1 cm/sec RAP systole: 3.0 mmHg TR max P.1 mmHg RVSP(TR): 26.1 mmHg CINDI Index (I,D): 2.3 CINDI Index (V,D): 2.2 Dimensionless Index: 0.84 E/e' (avg): 3.8 E/e' (lat): 3.1 E/e' (sept): 5.0 60 Procedure Note Dianelys Calix MD - 05/26/19 22 Echocardiographic Report Interpretation Summary A complete two-dimensional transthoracic echocardiogram was performed (2D, M- mode, Spectral and color Doppler). The study was technically difficult. Compared to prior study, there is no significant change. Normal left ventricular size and systoli c function. LV ejection fraction calculated using th e bi-plane method of disks is 60 %. The right ventricle is normal in size an d function. Right ventricular systolic pressure is n ormal. There is no pericardial effusion. Left Ventricle: Normal left ventricular size and systoli c function. There is normal left ventricular wall thickness. LV ejection fraction calculated using the bi-plane method of disks is 60 %. No regional wall motion abnormalities noted. I WMSI = 1.00 % Normal = 100 Normal global longitudinal peak sy stolic value. X - Cannot 1 - Normal 2 - 3 - Akinetic 4 - Dyskinetic Interpret Hypokinetic 5 - Aneurysmal 3D imaginD volumes were not performed in this st y. Cardiac Mechanics/Speckle Tracking Imagi ng: Normal global longitudinal peak systolic value. Strain Imaging was performed; GLPS avg = -19.4%. Diastology: Impaired LV relaxation pattern of diasto lic dysfunction, Doppler suggests normal LA pressures. Right Ventricle: The right ventricle is normal in size an d function. Normal RV systolic function using TAPSE criteria. Atria: Atria are normal in size. Mitral Valve: The mitral valve is grossly normal. Ther e is no mitral valve stenosis. There is trace mitral regurgitation. Tricuspid Valve: The tricuspid valve is not well visualiz ed, but is grossly normal. There is no tricuspid valve stenosis. There is trace tricuspid regurgitation. Estimated RVSP is 25-30mmHg. Right ventricular systolic pressure is normal. Aortic Valve: The aortic valve is trileaflet. The aort ic valve opens well. No aortic regurgitation is present. Pulmonic Valve: The pulmonic valve is not well visualize d. There is no pulmonic valvular stenosis. Mild pulmonic valvular regurgitation. Great Vessels: The aortic root is normal size. IVC is s mall, consistent with intravascular depletion. Pericardium/Pleural: There is no pericardial effusion. Preliminary Reviewer Preliminary Interpretation: Rody Blanchard MD. MMode/2D Measurements IVSd: 0.93 cm LVIDd: 5.4 cm LVPWd: 1.0 cm Ao root diam: 3.1 cm LVOT diam: 2.4 cm Ao root area: 7.5 cm2 LVOT area: 4.4 cm2 LA dimension: 4.1 cm EDV(MOD-A4C): 72.8 ml EDV(MOD-A2C): 91.6 ml ESV(MOD-A4C): 28.7 ml ESV(MOD-A2C): 38.3 ml EF(MOD-A4C): 60.6 % EF(MOD-A2C): 58 .2 % LAV(MOD-A2C): 38.9 ml EDV(MOD-bp): 83.2 ml LAV(MOD-A4C): 4 2.1 ml ESV(MOD-bp): 33.1 ml LAV(MOD-bp): 40 .1 ml EF(MOD-bp): 60.3 % LAV(MOD-bp) Indexed: 24.2 ml/m2 EDV (MOD-bp) Index: 50.1 ml/m2 ESV (MOD-bp) Index: 19.9 ml/m2 RWT: 0.39 cm TAPSE (>1.6): 2.5 cm Doppler Measurements MV E max kaden: 29.3 cm/sec MV P1/2t m ax kaden: 28.7 cm/sec MV A max kaden: 56.9 cm/sec MV P1/2t: 91.2 msec MV E/A: 0.51 MVA(P1/2t): 2.4 cm2 MV dec slope: 92.3 cm/sec2 Ao V2 max: 151.0 cm/sec LV V1 max PG : 6.5 mmHg Ao max P.1 mmHg LV V1 mean P. 0 mmHg Ao V2 mean: 97.6 cm/sec LV V1 max: 1 27.3 cm/sec Ao mean P.2 mmHg LV V1 mean: 80.9 cm/sec Ao V2 VTI: 26.0 cm LV V1 VTI: 22.3 c m CINDI(I,D): 3.8 cm2 CINDI(V,D): 3.7 cm2 SV(LVOT): 98.6 ml PI max kaden: 212.5 cm/sec PI max P.1 mmHg PI dec slope: 129.5 cm/sec2 Med Peak E' Kaden: 5.9 cm/sec Lat Pea k E' Kaden: 9.4 cm/sec TR max kaden: 240.1 cm/sec RAP systole : 3.0 mmHg TR max P.1 mmHg RVSP(TR): 26.1 mmHg CINDI Index (I,D): 2.3 CINDI Index (V,D) : 2.2 Dimensionless Index: 0.84 E/e' (avg) : 3.8 E/e' (lat): 3.1 E/e' (sept): 5.0 60 Donell Saini NP CV ECHO ORDERABLES Performing Organization Address City/State/ZIP Code Phon e Number ISCV Testosterone Level (05/25/2021 4:59 AM CDT) athologist Signature Testoster Tot 313 193 - [address] [facility] [place] [place] ng/dL [facility] Comment: Reference Ranges: Male: Age 20 - 49 249 - 836 Age >=50 1 93 - 740 Female: Age 20 - 49 8 - 48 Age >=50 3 - 41 Specimen Anatomical Collection Method Collection Time Receive d Time (Source) Location / / Volume Laterality Blood 05/25/2021 4:59 AM 5:26 CDT AM CDT Almas Cadena MD LAB BLOOD ORDERABLES Performing Organization Address City/State/ZIP Code Phon e Number [facility] [place] [place] [facility] Unless otherwise noted, [address] all lab tests performed by: Division of Pathology and Laboratory Medicine [facility]5 [place] Prostate Specific Antigen (PSA) Diagnostic (05/25/2021 4:59 AM CDT) athologist [facility] [place] PSA 0.2 0.0 - 4.[address] [facility] [place] [place] ng/mL [facility] Comment: Results greater than 4519 ng/mL may not be reliable due to matrix effect with extended dilution as it exceeds the watch train inspector's recommended limit. Caution should be exercised when interpreting mcgraw ch values and done in conjunction with clinical context. PSA Indication Diagnostic [facility] Specimen Anatomical Collection Method Collection Time Receive d Time (Source) Location / / Volume Laterality Blood 05/25/2021 4:59 AM 2 5:26 CDT AM CDT Almas Cadena MD LAB BLOOD ORDERABLES Performing Organization Address City/State/ZIP [facility] Phon e Number [facility] Unless otherwise noted, [address] all lab tests performed by: Division of Pathology and Laboratory Medicine [facility] [place] Clot Expiration Date (05/24/2021 1:07 PM CDT) [facility] gist Method Time [facility] [place] T & S 05/27/2021 [facility] Specimen Anatomical Collection Method Collection Time Receive d Time (Source) Location / / Volume Laterality Blood 05/24/2021 1:07 PM 2 1:51 CDT PM CDT Oma JOHNSON BLOOD BANK TEST ORDERABLES Performing Organization Address City/State/ZIP [facility] Phon e Number [facility] [place] [place] CANCER Unless otherwise noted, [address] all lab tests performed by: Division of Pathology and Laboratory Medicine [facility] [place] aPTT (05/24/2021 1:07 PM CDT)Only the most recent of2 resultswithin the time period is included. athologist [facility] [place] aPTT 34.8 24.7 - 36.8 [facility](s) [facility]CER [place] Specimen Anatomical Collection Method Collection Time Receive d Time (Source) Location / / Volume Laterality Blood 05/24/2021 1:07 PM 2 1:16 CDT PM CDT Oma Baldwin ELIZABETH LAB BLOOD ORDERABLES Performing Organization Address City/State/ZIP Code Phon e Number [facility] [place] [place] [facility]ER Unless otherwise noted, [address] all lab tests performed by: Division of Pathology and Laboratory Medicine [address] [place] [address] Immature Platelet Fraction (05/24/2021 1:07 PM CDT) [facility] IPF 5.6 0.8 - 6.2 % [facility] Specimen Anatomical Collection Method Collection Time Receive d Time (Source) Location / / Volume Laterality Blood 05/24/2021 1:07 PM 2 1:16 CDT PM CDT Narrative [facility] - 2 1:31 PM CDT For patients with Platelets lower than 1 00 k/mm3 Oma Gardhina JOHNSON LAB BLOOD ORDERABLES Performing Organization Address City/[facility]/ZIP Code Phon e Number [facility] Unless otherwise noted, [address] all lab tests performed by: Division of Pathology and Laboratory Medicine [address] [place] [address] [place] ABORh (05/24/2021 1:07 PM CDT) [facility] ABORh. O POS [facility] Specimen Anatomical Collection Method Collection Time Receive d Time (Source) Location / / Volume Laterality Blood 05/24/2021 1:07 PM 2 1:51 CDT PM CDT Oma Gardhina JOHNSON BLOOD BANK TEST ORDERABLES Performing Organization Address City/[facility]/ZIP Code Phon e Number [facility] Unless otherwise noted, [address] all lab tests performed by: Division of Pathology and Laboratory Medicine [address] [place] [address] (ABNORMAL) Prothrombin Time (05/24/2021 1:07 PM CDT)Only the most recent of2 resultswithin the time period is included. [facility] 15.5 (H) 11.5 - 13.9 [facility](s) [facility] INR 1.31 (H) 0.90 - 1.10 [facility] Specimen Anatomical Collection Method Collection Time Receive d Time (Source) Location / / Volume Laterality Blood 05/24/2021 1:07 PM 2 1:16 CDT PM CDT Oma JOHNSON LAB BLOOD ORDERABLES Performing Organization Address City/State/ZIP Code Phon e Number [facility] Unless otherwise noted, [address] all lab tests performed by: Division of Pathology and Laboratory Medicine [address] [place] [address] (ABNORMAL) Retic Auto (05/24/2021 1:07 PM CDT) athologist [facility] [place] Retic Cnt Auto 1.7 (H) 0.5 - 1.5 [facility] RETHE 33.7 23.[address] - [facility] [place] 37.5 [facility] CENTER IRF 12.0 2.3 - 18.0 [facility] Specimen Anatomical Collection Method Collection Time Receive d Time (Source) Location / / Volume Laterality Blood 05/24/2021 1:07 PM 2 1:16 CDT PM CDT Narrative [facility] - 2 1:31 PM CDT For patients with Platelets lower than 1 00 k/mm3 Oma JOHNSON LAB BLOOD ORDERABLES Performing Organization Address City/[facility]/ZIP Code Phon e Number [facility] Unless otherwise noted, [address] all lab tests performed by: Division of Pathology and Laboratory Medicine [address] [place] [address] .Serum Creatinine (05/24/2021 4:19 AM CDT)Only the most recent of3 resultswithin the time period is included. athologist [facility] [place] Creatinine 0.98 0.67 - 1.[address] [facility] [place] mg/dL [facility] Specimen Anatomical Collection Method Collection Time Receive d Time (Source) Location / / Volume Laterality Blood 05/24/2021 4:19 AM 2 4:44 CDT AM CDT Donell Saini NP LAB BLOOD ORDERABLES Performing Organization Address City/State/ZIP Code Phon e Number [facility] [place] [place] [facility] Unless otherwise noted, [address] all lab tests performed by: Division of Pathology and Laboratory Medicine [address] [place] [address] Glomerular Filtration Rate (05/24/2021 4:19 AM CDT)Only the most recent of3 resultswithin the time period is included. P athologist Signature eGFR-AA 84 >=60 ID MD FRIEDMAN mL/min/1.73 [facility] sq. m Comment: Normal eGFR: >= 60 mL/min/1.73 m2 Note: The eGFR is calculated using the C KD-EPI equation. The eGFR declines with age. eGFR <60 mL/min/1.73 m2 is considered as "decreased". This equation should only be used for patients 18 and older. According to the National Kidney [employer] ion's Kidney Disease Outcome Quality Initiative (KDOQI) classification and 2012 Kidney Disease Improving Global Outcomes (KDIGO) Clinical Practice Guideline, the stage of CKD should be categorized based on estimated GFR. Stage Description GFR mL/min/1. 73 m2 1 Normal or high GFR >=90 2 Mildly decreased GFR 60-89 3a Mildly to moderately decreased GFR 45-59 3b Moderately to severely decreased GFR 30-44 4 Severely decreased GFR 15-29 5 Kidney failure <15 eGFR-DARIEN 73 >=60 mL/min/1.73 sq. m ID MD Jailyn PRAKASH [facility] [place] Comment: Normal eGFR: >= 60 mL/min/1.73 m2 Note: The eGFR is calculated using the C KD-EPI equation. The eGFR declines with age. eGFR <60 mL/min/1.73 m2 is considered as "decreased". This equation should only be used for patients 18 and older. According to the National Kidney Foundat ion's Kidney Disease Outcome Quality Initiative (KDOQI) classification and 2012 Kidney Disease Improving Global Outcomes (KDIGO) Clinical Practice Guideline, the stage of CKD should be categorized based on estimated GFR. Stage Description GFR mL/min/1. 73 m2 1 Normal or high GFR >=90 2 Mildly decreased GFR 60-89 3a Mildly to moderately decreased GFR 45-59 3b Moderately to severely decreased GFR 30-44 4 Severely decreased GFR 15-29 5 Kidney failure <15 Specimen Anatomical Collection Method Collection Time Receive d Time (Source) Location / / Volume Laterality Blood 05/24/2021 4:19 AM 2 4:44 CDT AM CDT Donell Saini NP LAB BLOOD ORDERABLES Performing Organization Address City/State/ZIP Code Phon e Number ID MD [place] [facility] Unless otherwise noted, [address] all lab tests performed by: Division of Pathology and Laboratory Medicine [address] BUN (05/24/2021 4:19 AM CDT)Only the most recent of3 resultswithin the time period is included. P athologist Signature BUN 23 6 - [address] [facility] [place] mg/dL [facility] Specimen Anatomical Collection Method Collection Time Receive d Time (Source) Location / / Volume Laterality Blood 05/24/2021 4:19 AM 2 4:44 CDT AM CDT Donellmaximiliano Herreraen [employer]ER[employer] LAB BLOOD ORDERABLES Performing Organization Address City/[facility]/ZIP [facility] Phon e Number [facility] [place] CANCER Unless otherwise noted, [address] all lab tests performed by: Division of Pathology and Laboratory Medicine [address] [place] [address] [place] Phosphorus Level (05/24/2021 4:19 AM CDT)Only the most recent of3 resultswithin the time period is included. athologist Signature Phosphorus 4.3 2.5 - 4.[address] [facility] [place] mg/dL [facility] Specimen Anatomical Collection Method Collection Time Receive d Time (Source) Location / / Volume Laterality Blood 05/24/2021 4:19 AM 2 CDT 4:44 AM CDT Donellmaximiliano Herreraen [employer]IVIL ENGINEERING TEACHER LAB BLOOD ORDERABLES Performing Organization Address City/[facility]/ZIP Code Phon e Number [facility] [place] [place] [facility]ER Unless otherwise noted, [address] all lab tests performed by: Division of Pathology and Laboratory Medicine [address] [place] [address] [place] Magnesium Level (05/24/2021 4:19 AM CDT)Only the most recent of3 resultswithin the time period is included. athologist Signature Magnesium 2.1 1.6 - 2.[address] [facility] [place] mg/dL [facility] Specimen Anatomical Collection Method Collection Time Receive d Time (Source) Location / / Volume Laterality Blood 05/24/2021 4:19 AM 2 4:44 CDT AM CDT Donell Saini [employer]IVIL ENGINEERING TEACHER LAB BLOOD ORDERABLES Performing Organization Address City/[facility]/ZIP [facility] Phon e Number [facility] [place] [place] [facility] Unless otherwise noted, [address] all lab tests performed by: Division of Pathology and Laboratory Medicine [address] (ABNORMAL) Glucose Level (05/24/2021 4:19 AM CDT)Only the most recent of3 resultswithin the time period is included. P athologist Signature Glucose Level 102 (H) 70 - [address] [facility] [place] mg/dL [facility] Comment: Effective 10/08/15, the glucose reference intervals have been updated based on [place] [employer] guidelines (Standards of Medical Care in Diabetes 2016. Diabetes Care 2016; 39: S13-S22). Fasting blood glucose: Normal: 70-99 mg/dL Impaired fasting glucose (increased risk for diabetes or pre-diabetes): 100- 125 mg/dL Diabetes mellitus: >/=126 mg/dL Random blood glucose: Normal: 70-199 mg/dL Note: Random glucose >100 mg/dL is assoc iated with increased risk for diabetes Specimen Anatomical Collection Method Collection Time Receive d Time (Source) Location / / Volume Laterality Blood 05/24/2021 4:19 AM 2 4:44 CDT AM CDT Donell Saini NP LAB BLOOD ORDERABLES Performing Organization Address City/State/[facility] Phon e Number [facility] [place] [place] [facility]CER Unless otherwise noted, [address] all lab tests performed by: Division of Pathology and Laboratory Medicine [facility] Level (05/24/2021 4:19 AM CDT)Only the most recent of3 resultswithin the time period is included. athologist Signature Calcium Lvl 8.9 8.4 - 10.[address] [facility] [place] [place] mg/dL [facility] Specimen Anatomical Collection Method Collection Time Receive d Time (Source) Location / / Volume Laterality Blood 05/24/2021 4:19 AM 2 4:44 CDT AM CDT Donell Saini NP LAB BLOOD ORDERABLES Performing Organization Address City/[facility]/ZIP [facility] [place] Number [facility] [place] [place] [facility] Unless otherwise noted, [address] all lab tests performed by: Division of Pathology and Laboratory Medicine [address] [place] [address] Electrolyte Panel (05/24/2021 4:19 AM CDT)Only the most recent of3 resultswithin the time period is included. P athologist Signature Sodium Lvl 142 136 - [address] [facility] [place] mEq/L [facility] Potassium Lvl 4.2 3.5 - 5.[address] [facility] [place] mEq/L [facility] Chloride 106 98 - [address] [facility] [place] mEq/L [facility] CO2 23 22 - [address] [facility] [place] mEq/L [facility] Anion Gap 13 4 - [address] [facility] [place] mEq/L [facility] Specimen Anatomical Collection Method Collection Time Receive d Time (Source) Location / / Volume Laterality Blood 05/24/2021 4:19 AM 4:44 CDT AM CDT Donell Saini NP LAB BLOOD ORDERABLES Performing Organization Address City/State/ZIP Code Phon e Number [facility] [place] [place] CANCER Unless otherwise noted, [place] [address] [place] all lab tests performed by: Division of Pathology and Laboratory Medicine [address] EKG, 12-Lead (05/24/2021)Only the most recent of3 resultswithin the time period is included. Specimen (Source) Anatomical Location Collection Method / Collectio n Time Received Time / Laterality Volume Narrative This result has an attachment that is no t available. Butch Cole MD ECG ORDERABLES Performing Organization Address City/State/ZIP Code Phon e Number [facility]HAEL IECG CT Chest Pulmonary Embolism with Contrast (05/23/2021 12:00 AM SUPERVISOR [employer]ID[employer]) Anatomical Region Laterality Modality Chest Computed Tomography Specimen (Source) Anatomical Collection Method Collection Time Re ceived Time Location / / Volume Laterality 05/23/2021 12:07 AM SUPER[employer]OR [employer] Impressions 05/23/2021 7:40 AM SUPERVISOR [employer]ID[employer] No evidence for pulmonary embolism. The right apical irregular solid nodule has increased in size measuring 1.2 cm, previously 1 cm and may represent granuloma or lung cancer. Continued follow up is r ecommended in 3 months' time. I personally reviewed these image(s) helena choudhury with the resident's/fellow's interpretations, certify that if a procedure was performed I was physically present, and agree with the final report. Narrative 05/23/2021 7:40 AM SUPERVISOR [employer]ID[employer] FULL RESULT: Examination: CT CHEST PULMONARY EMBOLISM W CONTRAST, 05/23/2021 12:00 AM Clinical History: Prostate carcinoma Indication: chest pain, SOB Comparison: XR CHEST 05/22/2021, CT chest abdomen pelvis from 07/15/2020 Technique: CT of the chest was performed using intravenous contrast. Findings: Technical Quality: The exam is technical ly adequate for the assessment of pulmonary embolism Pulmonary Arteries: No evidence for pulm onary embolism. Tubes and Lines: None Lungs and Airways: The right apical irre gular nodule has increased in size measuring 1.2 cm, previously 1 cm on image 18 of series 4 and may represent granuloma or lung cancer. Continued follow up is re commended in 3 months' time. No areas of consolidation is seen. Emphysematous changes are identified. Pleura: No pleural effusions. Heart and Mediastinum: No mediastinal or hilar lymphadenopathy is seen. No pericardial effusion. There are mild atherosclerotic calcifications in the coronary arteries and thoracic aorta. Soft Tissues: Normal. Upper Abdomen: No adrenal nodules. Statu s post cholecystectomy. Bones: The visualized bony thorax is w ithin normal limits. There are degenerative changes of the thoracic spine Procedure Note Eli Lorenzo MD - 05/23/2021Format ting of this note might be different from the original. FULL RESULT: Examination: CT CHEST PULMONARY EMBOLISM W CONTRAST, 05/23/2021 12:00 AM Clinical History: Prostate carcinoma Indication: chest pain, SOB Comparison: XR CHEST 05/22/2021, CT chest abdomen pelvis from 07/15/2020 Technique: CT of the chest was performed using intravenous contrast. Findings: Technical Quality: The exam is technical ly adequate for the assessment of pulmonary embolism Pulmonary Arteries: No evidence for pulm onary embolism. Tubes and Lines: None Lungs and Airways: The right apical irre gular nodule has increased in size measuring 1.2 cm, previously 1 cm on image 18 of series 4 and may represent granuloma or lung cancer. Continued follow up is recommended in 3 months' time. No areas of consolidatio n is seen. Emphysematous changes are identified. Pleura: No pleural effusions. Heart and Mediastinum: No mediastinal or hilar lymphadenopathy is seen. No pericardial effusion. There are mild atherosclerotic calcifications in the coronary arteries and thoracic aorta. Soft Tissues: Normal. Upper Abdomen: No adrenal nodules. Statu s post cholecystectomy. Bones: The visualized bony thorax is wit hin normal limits. There are degenerative changes of the thoracic spine IMPRESSION: No evidence for pulmonary embolism. The right apical irregular solid nodule has increased in size measuring 1.2 cm, previously 1 cm and may represent granuloma or lung cancer. Continued follow up is recommended in 3 months' time. I personally reviewed these image(s) helena choudhury with the resident's/fellow's interpretations, certify that if a procedure was performed I was physically present, and agree with the final report. Donell Saini NP IMG CT ORDERABLES CT Abdomen Pelvis with Contrast (05/23/2021 12:00 AM SUPERVISOR [employer]ID[employer]) Anatomical Region Laterality Modality Abdomen, Pelvis Computed Tomography Specimen (Source) Anatomical Collection Method Collection Time Re ceived Time Location / / Volume Laterality 05/23/2021 3:49 AM SUPERVISOR [employer]RAIDING Impressions 05/23/2021 9:05 AM SUPERVISOR [employer]RAID[employer] 1. Unremarkable loops of bowel without e vidence of obstruction or distention. 2. Enlarging prostate since 07/15/2020 wit h a new, radiation seeds. Recurring disease is a possibility. A dedicated endorectal MRI is recommended for further evaluation, if indicated. 3. No evidence of metastasis. I personally reviewed these image(s) helena choudhury with the resident's/fellow's interpretations, certify that if a procedure was performed I was physically present, and agree with the final report. Narrative 05/23/2021 9:05 AM SUPERVISOR [employer]IDING FULL RESULT: Examination: CT ABDOMEN PELVIS W ELMER T, 05/23/2021 12:00 AM Clinical History: Adenocarcinoma of pros wilson Indication: Suspicion of bowel obstructi on on XR Comparison: XR ABDOMEN 05/22/2021, CT [facility] abdomen pelvis from 07/15/2020. Technique: CT of the abdomen and pelvis was performed with intravenous contrast. Findings: Minimal chronic changes at the lung base s in the background of poor respiratory efforts. No evidence of acute process or metastasis. Status post cholecystectomy. Liver, panc reas, spleen, adrenals and remain unremarkable. A few focal cortical atrophies are noted in the kidneys along with bilateral cysts, grossly unchanged. No hydronephrosis. The prostate measures approximately 5.1 x 4 cm in its greatest cross-sectional dimension as opposed to 4.7 x 3.1 cm previously in 07/2020. There are radiation seeds, new since prior exam. It is a technic ally limited exam to evaluate intraprost atic disease. Seminal vesicles appear within normal limits bilaterally. The urinary bladder is well distended an d is within normal limit with hypertrophic nodule of the prostate at the base. Visualized loops of bowel are within nor mal limits. No evidence of lymphadenopathy in either abdomen and pelvis. Mild lumbar scoliosis with multilevel de generative changes along the spine. No definite new focal hepatic to or metastasis. An intramuscular lipoma at the right lateral chest wall is incompletely included. Procedure Note Julian Pollard MD - 05/23/2021 FULL RESULT: Examination: CT ABDOMEN PELVIS W CONTRAS T, 05/23/2021 12:00 AM Clinical History: Adenocarcinoma of pros wilson Indication: Suspicion of bowel obstructi on on XR Comparison: XR ABDOMEN 05/22/2021, CT [facility] abdomen pelvis from 07/15/2020. Technique: CT of the abdomen and pelvis was performed with intravenous contrast. Findings: Minimal chronic changes at the lung base s in the background of poor respiratory efforts. No evidence of acute process or metastasis. Status post cholecystectomy. Liver, panc reas, spleen, adrenals and remain unremarkable. A few focal cortical atrophies are noted in the kidneys along with bilateral cysts, grossly unchanged. No hydronephrosis. The prostate measures approximately 5.1 x 4 cm in its greatest cross-sectional dimension as opposed to 4.7 x 3.1 cm previously in 07/2020. There are radiation seeds, new since prior exam. It is a technically limited exam to evaluate intraprostatic disease. Seminal vesicles appear within normal limits bilaterally. The urinary bladder is well distended an d is within normal limit with hypertrophic nodule of the prostate at the base. Visualized loops of bowel are within nor mal limits. No evidence of lymphadenopathy in either abdomen and pelvis. Mild lumbar scoliosis with multilevel de generative changes along the spine. No definite new focal hepatic to or metastasis. An intramuscular lipoma at the right lateral chest wall is incompletely included. IMPRESSION: 1. Unremarkable loops of bowel without e vidence of obstruction or distention. 2. Enlarging prostate since 07/15/2020 wit h a new, radiation seeds. Recurring disease is a possibility. A dedicated endorectal MRI is recommended for further evaluation, if indicated. 3. No evidence of metastasis. I personally reviewed these image(s) helena choudhury with the resident's/fellow's interpretations, certify that if a procedure was performed I was physically present, and agree with the final report. Donell Saini NP [facility] CT ORDERABLES X-ray Abdomen 2 View AP W Upright and/or Decubitus (05/22/2021 6:24 PM SUPERVISOR BRAIDING) Anatomical Region Laterality Modality Abdomen Digital Radiography Specimen (Source) Anatomical Collection Method Collection Time Re ceived Time Location / / Volume Laterality 05/22/2021 6:43 PM SUPERVISOR BRAIDING Impressions 05/22/2021 6:45 PM SUPERVISOR BRAIDING Bowel gas pattern may represent evolving or partial small bowel obstruction. Narrative 05/22/2021 6:45 PM SUPERVISOR BRAIDING FULL RESULT: Examination: XR ABDOMEN 2 VW AP W UPRIGH T AND OR DECUBITUS on 05/22/2021 6:24 PM Clinical History: Chest pain Indication: Abdominal Pain Comparison: 08/22/2020 Technique: XR ABDOMEN 2 VW AP W UPRIGHT AND OR DECUBITUS Findings: No evidence for free air on the upright view. There are some slightly dilated loops of small bowel in the upper abdomen. Air is seen in portions of the colon including the rectum. Clips are noted in the right upper quadrant. Degenerative mason ges in the spine. Procedure Note Indigo Skinner MD - 05/22/2021 FULL RESULT: Examination: XR ABDOMEN 2 VW AP W UPRIGH T AND OR DECUBITUS on 05/22/2021 6:24 PM Clinical History: Chest pain Indication: Abdominal Pain Comparison: 08/22/2020 Technique: XR ABDOMEN 2 VW AP W UPRIGHT AND OR DECUBITUS Findings: No evidence for free air on the upright view. There are some slightly dilated loops of small bowel in the upper abdomen. Air is seen in portions of the colon including the rectum. Clips are noted in the right upper quadrant. Degenerative changes in the sp ine. IMPRESSION: Bowel gas pattern may represent evolving or partial small bowel obstruction. Donell Saini NP [facility] DIAGNOSTIC IMAGING ORDER AMINAH X-ray Chest 1 View (05/22/2021 3:05 PM SUPERVISOR BRAIDING) Anatomical Region Laterality Modality Chest Digital Radiography Specimen (Source) Anatomical Collection Method Collection Time Re ceived Time Location / / Volume Laterality 05/22/2021 3:06 PM SUPERVISOR BRAIDING Impressions 05/22/2021 3:07 PM SUPERVISOR BRAIDING No acute thoracic opacity. Narrative 05/22/2021 3:07 PM SUPERVISOR BRAIDING FULL RESULT: Examination: XR CHEST 1 VW, 05/22/2021 3: 05 PM Clinical History: Prostate Carcinoma Indication: Chest pain/Shortness of Wilson th Comparison: 08/21/2020. Technique: Portable anteroposterior, 1 v iew of the chest. Findings: Lungs: The lungs are clear of acute opac ity. Mediastinum: There is no mediastinal or hilar adenopathy. Heart: The cardiac silhouette is normal. Pleura: There is no pleural effusion or pneumothorax demonstrated. Tubes and Lines: None identified. Bones: Osseous thorax intact. Procedure Note Iban Multani MD - 05/22/2021Forma tting of this note might be different from the original. FULL RESULT: Examination: XR CHEST 1 VW, 05/22/2021 3: 05 PM Clinical History: Prostate Carcinoma Indication: Chest pain/Shortness of Carmen th Comparison: 08/21/2020. Technique: Portable anteroposterior, 1 v iew of the chest. Findings: Lungs: The lungs are clear of acute opac ity. Mediastinum: There is no mediastinal or hilar adenopathy. Heart: The cardiac silhouette is normal. Pleura: There is no pleural effusion or pneumothorax demonstrated. Tubes and Lines: None identified. Bones: Osseous thorax intact. IMPRESSION: No acute thoracic opacity. Latoya Pichardo MD [facility] DIAGNOSTIC IMAGING ORDER AMINAH Respiratory Viral Panel + COVID-19, Nasopharyngeal Swab (05/22/2021 1:53 PM SUPERVISOR BRAIDING) [facility] Method Time Signature Adenovirus Not Not SHAHZAD ANDINO Detected Detected [facility] Coronavirus 229E Not Not [place] Detected Detected [facility] Coronavirus HKU1 Not Not [place] Detected Detected [facility] Coronavirus NL63 Not Not [place] Detected Detected [facility] Coronavirus OC43 Not Not [place] Detected Detected [facility] COVID19 Not Not UT (SARS-CoV-2) Detected Detected [facility] Human Not Not [place] Metapneumovirus Detected Detected [facility] Human Not Not SHAHZAD ANDINO Rhinovirus/Enterov Detected Detected [facility] Influenza A Not Not SHAHZAD ANDINO Detected Detected [facility] Influenza A H1 Not Not SHAHZAD ANDINO Detected Detected [facility] Influenza A H1 Not Not UT MD 2009 Detected Detected [facility] Influenza A H3 Not Not [place] MD Detected Detected [facility] Influenza B Not Not [place] MD Detected Detected [facility] Parainfluenza 1 Not Not [place] MD Detected Detected [facility] Parainfluenza 2 Not Not [place] MD Detected Detected [facility] Parainfluenza 3 Not Not [place] MD Detected Detected [facility] Parainfluenza 4 Not Not [place] MD Detected Detected [facility] Respiratory Not Not UT MD Syncytial Virus Detected Detected [facility] Bordetella Not Not UT MD Parapertussis Detected Detected [facility] Bordetella Not Not UT MD pertussis Detected Detected [facility] Chlamydiophila Not Not UT MD pneumoniae Detected Detected [facility] Mycoplasma Not Not [place] MD pneumoniae Detected Detected [facility] Specimen (Source) Anatomical Collection Method Collection Time Re ceived Time Location / / Volume Laterality Nasopharyngeal Swab 05/22/2021 1:53 05/22 PM SUPERVISOR BRAIDING 2:57 PM SUPERVISOR BRAIDING Narrative [place] MD [facility] - 4:18 PM SUPERVISOR BRAIDING The BioFire RP2.1 is a real-time, nested multiplexed polymerase chain reaction test designed to simul taneously identify nucleic acids from 22 different viruses and bacteria associated with respiratory tract infection, including SARS-CoV-2, from a single nasopharyngeal swab (ACCOUNTING TECHNICIAN) specimen obtai cruz from individuals suspected of respiratory tract infections, including COVID-19. Results must be interpreted within the c ontext of all relevant clinical and laboratory findings and should not form the sole basis for a diagnosis or treatment decision. Positive results do not rule out coninfection with other organisms. Nega tive results in the setting of a respiratory illness may be due to infection with pathogens that are not detected by this panel, or a lower respiratory tract infection that may not be detected by an ACCOUNTING TECHNICIAN specimen. Internal controls are used to monitor al l stages of the test process and assess for possible amplification inhibitors. If inhibition is detected, testing is repeated and if inhibition is confirmed the s pecimen is resulted as "Invalid". When a n "Invalid" result occurs, it is recommended to wait 3 days before submitting a new specimen for testing if clinically indicated. This assay has been approved by the FDA for use in laboratories that have been CLIA-certified to perform moderate-complexity and high-complexity tests. The [facility] at [facility], CLIA Accreditation #[id number] and CAP Accreditation #[id number], verified the per formance characteristics of this assay. [facility] performs the assay using the [employer] System. The BioFire RP 2.1 is a real-time, nested multiplexed p olymerase chain reaction test designed to simultan eously identify nucleic acids from 22 different viruses and bacteria associated with respiratory tract infection, including SARS-CoV-2, from a single nasopharynge al swab (ACCOUNTING TECHNICIAN) specimen obtained from ind ividuals suspected of respiratory tract infection s, including COVID-19. Results must be interpreted within the c ontext of all relevant clinical and laboratory findings and should not form the sole basis for a diagnosis or treatment decision. Positive results do not rule out coninfection with other organisms. Nega tive results in the setting of a respiratory illness may be due to infection with pathogens that are not detected by this panel, or a lower respiratory tract infection that may not be detected by an ACCOUNTING TECHNICIAN specimen. Internal controls are used to monitor al l stages of the test process and assess for possible amplification inhibitors. If inhibition is detected, testing is repeated and if inhibition is confirmed the s pecimen is resulted as "Invalid". When a n "Invalid" result occurs, it is recommended to wait 3 days before submitting a new specimen for testing if clinically indicated. This assay has been approved by the FDA for use in laboratories that have been CLIA-certified to perform moderate-complexity and high-complexity tests. The [facility] at [facility], CLIA Accreditation #[id number] and CAP Accreditation #[id number], verified the per formance characteristics of this assay. [facility] performs the assay using the [employer] System. Latoya Pichardo MD MICROBIOLOGY - GENERAL ORDER AMINAH Performing Organization Address City/State/ZIP Code Phon e Number [facility] [place] [facility] Unless otherwise noted, [place] [address] [facility] all lab tests performed by: Division of Pathology and Laboratory Medicine Clare5 Ligia Vu (ABNORMAL) .CBC (05/22/2021 1:53 PM SUPERVISOR BRAIDING) athologist Signature WBC 6.7 4.0 - 11.0 [place] K/[facility] RBC 4.57 4.50 - [place] 6.00 /[facility] Hgb 13.5 (L) 14.0 - ID MD 18.0 gm/dL [facility] Hct 42.7 40.0 - ID MD 54.0 % [facility] MCV 93 82 - 98 fL [facility] MCH 29.5 27.0 - ID MD 31.0 pg [facility] MCHC 31.6 31.0 - ID MD 36.0 gm/dL [facility] RDW-SD 49.6 (H) 35.1 - ID MD 46.3 fL [facility] RDW-CV 14.6 12.0 - ID MD 15.5 % [facility] Platelet count 172 140 - 440 [facility] K/uL [facility] MPV 11.1 (H) 4.0 - 10.4 [facility] fL [facility] INRBC 0.0 <=0.0 % [facility] Comment: The INRBC (instrument NRBC) value reflec ts the enumeration of nucleated red blood cells contained i n a 200uL sample of whole blood analyzed by the instrumen t. This value may differ from the NRBC value reported in a manual differential, which is based on a 100 cell differentia l. Specimen Anatomical Collection Method Collection Time Receive d Time (Source) Location / / Volume Laterality Blood 05/22/2021 1:53 PM 2 1:59 SUPERVISOR BRAIDING PM SUPERVISOR BRAIDING Latoya Pichardo MD LAB BLOOD ORDERABLES Performing Organization Address City/State/ZIP Code Phon e Number [facility] [place] [facility] Unless otherwise noted, [place], [place] [id number] [place] [address] all lab tests performed by: Division of Pathology and Laboratory Medicine [address] [place] [address] Fractionated Bilirubin (05/22/2021 1:53 PM SUPERVISOR BRAIDING) athologist Signature Bili Total 0.4 <=1.2 mg/dL [facility] Comment: Indocyanine Green (ICG) may cause falsel y elevated bilirubin results. Total and direct bilirubin must not be measured from samples containing indocyanine green. False elevation of total bilirubin can b e seen in patients with IgG concentrations above 28 g/L. Bili Direct <0.2 <=0.3 mg/dL [facility] Comment: Indocyanine Green (ICG) may cau se falsely elevated bilirubin results. Total and direct bilirubin must not be measure d from samples containing indocyanine green. Bili Indirect See Note 0.0 - 0.9 mg/dL ID MD [facility] Comment: Unable to calculate Indirect Bi lirubin result due to some parameters are outside reportable range Specimen Anatomical Collection Method Collection Time Receive d Time (Source) Location / / Volume Laterality Blood 05/22/2021 1:53 PM 2 2:00 SUPERVISOR BRAIDING PM SUPERVISOR BRAIDING Latoya Pichardo MD LAB BLOOD ORDERABLES Performing Organization Address City/[facility] Phon e Number [facility] [place] [facility] Unless otherwise noted, [address] all lab tests performed by: Division of Pathology and Laboratory Medicine [address] (ABNORMAL) Cardiac Panel (05/22/2021 1:53 PM SUPERVISOR BRAIDING) athologist [facility] [place] CK 148 39 - [address] [facility] [place] U/L [facility] CK MB 6.3 <=10.[address] [facility] [place] ng/mL [facility] Troponin T 67 (C) <=18 ng/L [facility] Comment: < 19 ng/L Suggest retest at 3 to 6 hours later to rule out myocardial infarction >= 19 to <=52 ng/L Pos sible myocardial injury. Suggest retest at 3 hours. - a change of < 20 ng/L, retest at 6 hours - a change of >= 20 ng/L, suggestive of myocardial infarction > 52 ng/L Suggestive of myocardial infarction Critical value will be reported when cTn T is > 52 ng/L and only reported for the first in a series. Hemolyzed specimens with Hemolysis Index >100 (100 mg/dl or moderate hemolysis) may cause interferences and falsely low results. Specimen Anatomical Collection Method Collection Time Receive d Time (Source) Location / / Volume Laterality Blood 05/22/2021 1:53 PM 2 2:16 SUPERVISOR BRAIDING PM SUPERVISOR BRAIDING Latoya Pichardo MD LAB BLOOD ORDERABLES Performing Organization Address City/[facility] Phon e Number [facility] [place] [facility] Unless otherwise noted, [address] all lab tests performed by: Division of Pathology and Laboratory Medicine [address] (ABNORMAL) NT-Pro BNP (In-House) (05/22/2021 1:53 PM SUPERVISOR BRAIDING) athologist [facility] [place] NT ProBNP 538 (H) <=450 pg/mL [facility] Specimen Anatomical Collection Method Collection Time Receive d Time (Source) Location / / Volume Laterality Blood 05/22/2021 1:53 PM 2 2:00 SUPERVISOR BRAIDING PM SUPERVISOR BRAIDING Latoya Pichardo MD LAB BLOOD ORDERABLES Performing Organization Address City/[facility]/ZIP Code Phon e Number [facility] [place] [facility] Unless otherwise noted, [place] [address] [facility] all lab tests performed by: Division of Pathology and Laboratory Medicine [address] Lig[address] Vu (ABNORMAL) Differential (05/22/2021 1:53 PM SUPERVISOR BRAIDING) [facility] Neutrophil % 77.0 (H) 42.0 - [facility] [place] 66.0 % [facility] Lymphocyte % 11.6 (L) 24.0 - [facility] [place] 44.0 % [facility] Monocyte % 9.2 (H) 2.0 - 7.[address] [facility] [place] % [facility] Eosinophil % 1.2 1.0 - 4.[address] [facility] [place] % [facility] Basophil % 0.6 0.0 - 1.[address] [facility] [place] % [facility] IGRE % 0.4 0.0 - 0.[address] [facility] [place] % [facility] Comment: IGRE % count includes Metamyelo cytes, Myelocytes, and Promyelocytes. Neutrophil Abs 5.16 1.70 - 7.30 K/uL [facility] Lymphocyte Abs 0.78 (L) 1.00 - 4.80 K/uL ID [facility] Monocyte Abs 0.62 0.08 - 0.70 K/uL ID MD [facility] Eosinophil Abs 0.08 0.04 - 0.40 K/uL ID MD [facility] Basophil Abs 0.04 0.00 - 0.10 K/uL ID MD [facility] IG Abs 0.03 0.00 - 0.04 K/uL ID MD COMPA Valdez [facility] Specimen Anatomical Collection Method Collection Time Receive d Time (Source) Location / / Volume Laterality Blood 05/22/2021 1:53 PM 2 1:59 SUPERVISOR BRAIDING PM SUPERVISOR BRAIDING Latoya Pichardo MD LAB BLOOD ORDERABLES Performing Organization Address City/State/ZIP Code Phon e Number [facility] [place] [facility] Unless otherwise noted, [address] all lab tests performed by: Division of Pathology and Laboratory Medicine [facility] D-dimer (05/22/2021 1:53 PM SUPERVISOR BRAIDING) P athologist Signature D-Dimer 0.38 0.10 - 0.[address] [facility] [place] mcg/ml [facility] Comment: The cut off value for exclusion of venou s thromboembolism is <0.51 mcg/mL FEUs (fibrinogen equival ent units). Specimen Anatomical Collection Method Collection Time Receive d Time (Source) Location / / Volume Laterality Blood 05/22/2021 1:53 PM 2 1:59 SUPERVISOR BRAIDING PM SUPERVISOR BRAIDING Latoya Pichardo MD LAB BLOOD ORDERABLES Performing Organization Address City/[facility]/ZIP Code Phon e Number [facility] [place] [facility] Unless otherwise noted, [address] all lab tests performed by: Division of Pathology and Laboratory Medicine [address] [place], [place] [address] ALT (05/22/2021 1:53 PM SUPERVISOR BRAIDING) athologist Signature ALT 13 <=41 U/L [facility] Specimen Anatomical Collection Method Collection Time Receive d Time (Source) Location / / Volume Laterality Blood 05/22/2021 1:53 PM 2 2:00 SUPERVISOR BRAIDING PM SUPERVISOR BRAIDING Latoya Pichardo MD LAB BLOOD ORDERABLES Performing Organization Address City/State/ZIP Code Phon e Number [facility] [place] [facility] Unless otherwise noted, [address] all lab tests performed by: Division of Pathology and Laboratory Medicine [address] [place] [address] Aspartate Aminotransferase (05/22/2021 1:53 PM SUPERVISOR BRAIDING) athologist Signature AST 19 <=40 U/L [facility] Specimen Anatomical Collection Method Collection Time Receive d Time (Source) Location / / Volume Laterality Blood 05/22/2021 1:53 PM 2 2:00 SUPERVISOR BRAIDING PM SUPERVISOR BRAIDING Latoya Pichardo MD LAB BLOOD ORDERABLES Performing Organization Address City/State/ZIP Code Phon e Number [facility] [place] [facility] Unless otherwise noted, [address] all lab tests performed by: Division of Pathology and Laboratory Medicine [address] [place] [address] [place] Total Protein (05/22/2021 1:53 PM SUPERVISOR BRAIDING) athologist [facility] [place] Total Protein 7.1 6.4 - 8.[address] [facility] [place] g/dL [facility] Specimen Anatomical Collection Method Collection Time Receive d Time (Source) Location / / Volume Laterality Blood 05/22/2021 1:53 PM 2 2:00 SUPERVISOR BRAIDING PM SUPERVISOR BRAIDING Latoya Pichardo MD LAB BLOOD ORDERABLES Performing Organization Address City/State/ZIP Code Phon e Number [facility] [place] [facility] Unless otherwise noted, [address] all lab tests performed by: Division of Pathology and Laboratory Medicine [address] [place] [address] [place] Alkaline Phosphatase (05/22/2021 1:53 PM SUPERVISOR BRAIDING) athologist [facility] [place] Alk Phos 90 40 - [address] [facility] [place] U/L [facility] Specimen Anatomical Collection Method Collection Time Receive d Time (Source) Location / / Volume Laterality Blood 05/22/2021 1:53 PM 2 2:00 SUPERVISOR BRAIDING PM SUPERVISOR BRAIDING Latoya Pichardo MD LAB BLOOD ORDERABLES Performing Organization Address City/State/ZIP Code Phon e Number [facility] [place] [facility] Unless otherwise noted, [address] all lab tests performed by: Division of Pathology and Laboratory Medicine [address] [place] [address] [place] Albumin Level (05/22/2021 1:53 PM SUPERVISOR BRAIDING) [facility] Lvl 4.1 3.5 - 5.[address] [facility] [place] gm/dL [facility] Specimen Anatomical Collection Method Collection Time Receive d Time (Source) Location / / Volume Laterality Blood 05/22/2021 1:53 PM 2 2:00 SUPERVISOR BRAIDING PM SUPERVISOR BRAIDING Latoya Pichardo MD LAB BLOOD ORDERABLES Performing Organization Address City/State/ZIP Code Phon e Number [facility] [place] [facility] Unless otherwise noted, [address] all lab tests performed by: Division of Pathology and Laboratory Medicine [address] [place] [address] [place]akes (ABNORMAL) POC Troponin I (05/22/2021 1:49 PM SUPERVISOR BRAIDING) athologist Signature POC CTNI 0.17 (H) 0.00 - 0.08 POC [facility] ng/mL Comment: This cTnI test is performed by the Point -of-Care analyzer method, and the result may be different from the Clinical Laboratory Method. Abnormal test results are recomm ended for confirmatory test by Clinical laboratory method. Veronica ents with normal test results but clinically suspicious for ac swapnil myocardial infarction should be tested by Clinical Laboratory method. Method description: The Troponin I (cTnI ) uses a two-site enzyme-linked immunosorbent assay (SNEHA) method. Antibodies specific for human cardiac troponin I (cTnI) are located on an electrochemical sens or fabricated on a silicon chip. The who le blood is brought into contact with the sensors al lowing the enzyme conjugate to dissolve into the sample. The enzyme bound to the antibody/antigen/antibody sandwich cleaves the substrate releasing an electrochemically detectable product. The electrochemical (amperometric) sensor measures this enzy me product which is proportional to the concentration of cTnI within the sample. POC Clean Dev Yes POC [facility] Performing Lab [facility] POC TELCO R Comment: [facility], [address] [place] [id number]; Lab Direct or: Kelsea Stafford MD Specimen Anatomical Collection Method Collection Time Receive d Time (Source) Location / / Volume Laterality Blood 05/22/2021 1:49 PM 2 1:49 SUPERVISOR BRAIDING PM SUPERVISOR BRAIDING Nida Shaffer MD POCT ORDERABLES - DEVICE Performing Organization Address City/State/ZIP Code Phon e Number POC [facility] after 01/31/2021 Advance Directives Code Status Date Activated Date Inactivated Comments Full Code 05/22/2021 4:44 PM 05/26/2021 7:54 PM Code Status Date Activated Date Inactivated Comments Full Code 05/22/2021 4:44 PM 05/22/2021 4:44 PM Full Code 08/21/2020 11:52 PM 08/24/2020 5:55 PM Full Code 03/02/2020 8:29 PM 03/07/2020 11:09 PM Full Code 02/26/2020 9:33 PM 02/29/2020 8:36 PM Care Teams [employer] Relationship Specialty Start Date End Date Pako Lopez MD PCP - External Urology 10/11/19 [facility]: Referring [address] [place] [id number] Nick Delgado MD PCP - General Genitourinary Oncology 01/25/[address] [place] [phone] Margarita Saini-[facility], Consulting Physician Radiation Oncology 02/14/[address] [place] [phone]
--- OUTSIDE RECORDS SUMMARY | 2022-01-31 06:00 | XMS REPORT | Continuity of Care Document ---
:1940 Author Organization [facility] t Address [address] [place] [address] Care Team Providers Name Role Phone Erwin Delgado MD Primary Care Physician Harlan Murray Attending Clinician Kye Palacios MD Attending Clinician Ashley Jones NP Attending Clinician Nida Shaffer MD Attending Clinician Zoey Cummins MD Attending Clinician Srinivas Nguyen MD Attending Clinician Almas Clements MD Attending Clinician OMA HOANG Attending Clinician Unavailable Barrett Jones APN Attending Clinician Oma Hartman Attending Clinician Serena Rodriges Attending Clinician Angelika Sharma RN Attending Clinician Unavailable Kait Nails RPH Attending Clinician Florentin JEFFERY, Sanjuanita Attending Clinician Hang Menjivar RN Attending Clinician Unavailable AUBREY MORENO Attending Clinician Unavailable JORJE FRIED Attending Clinician Unavailable ERWIN DELGADO Attending Clinician Unavailable DEDE SOSA Attending Clinician Unavailable HAILY GREENWOOD Attending Clinician Unavailable Fermin Massey DO Attending Clinician SANJUANITA STRATTON Attending Clinician Unavailable Pako Lopez MD Attending Clinician Jaclyn Silver Attending Clinician Petra Bai RN Attending Clinician PAKO LOPEZ Attending Clinician Unavailable Doctor Unassigned, [place] Attending Clinician Unavailable Draw, [facility] Attending Clinician Unavailable ALMAS CLEMENTS Admitting Clinician Unavailable Problems Condition Condition Condition Status Onset Resolution Last Treating Co mments Source Name Details Category Date Date Treatment Clinician Date Acute Acute Disease Active Univers coronary coronary 3-13 ity of syndrome syndrome 00:00: [place] 00 MD Adeola santacruz [facility] High High Disease Active Univers troponin I troponin I 3-13 it y of level level 00:00: MD Adeola santacruz [facility] Dyspnea Dyspnea Disease Active Univers 3-11 ity of 00:00: [place] MD Adeola santacruz [facility] Abdominal Abdominal Disease Active Uni vers pain pain 3-11 ity of 00:00: [place] MD Adeola santacruz [facility] Atrial Atrial Disease Active Last Univers fibrillati fibrillati 6-11 Assessmen ity of on on 00:00: t & Plan: [place] [id number] Juan A ANDINO g of this Anderso note n might be Cancer different Center from the original. Patient had an episode [...] p.o. twice daily. 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 00:00: [place] 00 MD Adeola santacruz [facility] Overweight Overweight Disease Active U nivers 2-06 ity of 00:00: 00 MD Adeola santacruz [facility] Chronic Chronic Disease Active 2019-03 Univers back pain back pain 2-03 ity of 00:00: [place] 00 MD Adeola santacruz [facility] 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 Blood pressure modestly controlle d in the clinicat 146/71. Continue managemen t with metoprolo l succinate 25 mg daily and enalapril 10 mg p.o. 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 Social History Social Habit Start Date Stop Date Quantity Comments Source Exposure to Not sure [facility] SARS-CoV-2 (event) [facility] History of tobacco Cigarette Smoker [facility] MD Dave gant [facility] History [facility] o f Alcohol Comment [facility] Alcohol intake 2021-05-22 2021-05-22 Ex-drinker University of 00:00:00 00:00:00 (finding) [place] MD Dave gant [facility] Cigarettes smoked 2020-02-13 2020-02-13 Univers ity of current (pack per 00:00:00 00:00:00 [facility] ) - Reported Cancer Ce nter Cigarette 2020-02-13 2020-02-13 University of pack-years 00:00:00 00:00:00 [place] MD Dave gant [facility] History SDOH 2020-02-13 2020-02-13 1 University o f Alcohol Frequency 00:00:00 00:00:[address] [facility] History WYOH 2020-02-13 2020-02-13 99 University o f Alcohol Std Drinks 00:00:00 00:00:00 [facility] History [facility] 2020-02-13 2020-02-13 1 University o f Alcohol Binge 00:00:00 00:00:00 [place] MD Jaclyn noel [facility] Tobacco Comment 2020-02-13 2020-02-13 used to smoke; Unive rsity of 00:00:00 00:00:00 quit 12 years [place] MD Jaclyn noel [facility] Tobacco use and 2020-02-13 2020-02-13 Smokeless Universit y of exposure 00:00:00 00:00:00 tobacco non-user [facility] Sex Ass[birth year] At [birth year] M Universit y of 00:00:00 00:00:00 [place] MD Dave gant [facility] Smoking Status Start Date Stop Date Source Unknown if ever smoked Universit y [facility] Ex-smoker 2020-02-13 00:00:00 2020-02-13 00:00:00 Universi ty of [place] MD [facility] Medications Ordered Filled Start Stop Current Ordering Indication Dosage Frequency Signature Comments Components Source Medication Medication Date Date Medication? Clinician (SIG) Name Name TAKE 1 No 60 TABLET 9-30 DAILY. 00:00: 00 TAKE 1 No 60 TABLET 9-30 DAILY. 00:00: 00 metoprolol Yes Essential TAKE ONE Univers succinate 9-21 (primary) TABLET BY ity of (TOPROL XL) 00:00: hypertensio MOUTH ONCE [place] 25 mg 24 hr 00 n DAILY ( MD tablet HOLD DOSE Anderso IF SBP n <110 OR HR Cancer <55 ) [facility] metoprolol Yes Essential TAKE ONE Univers succinate 9-21 (primary) TABLET BY ity of (TOPROL XL) 00:00: hypertensio MOUTH ONCE [place] 25 mg 24 hr 00 n DAILY ( MD tablet HOLD DOSE Anderso IF SBP n <110 OR HR Cancer <55 ) [facility] Dose No Unknown 14 00:00: 00 Dose No Unknown 14 00:00: 00 pantoprazol Yes Adenocarcin TAKE ONE Univers e 9-08 geoff of TABLET BY ity of (PROTONIX) 00:00: prostate MOUTH [place] 40 mg EC 00 DAILY [facility] Yes Adenocarcin TAKE ONE Univers e 9-08 geoff of TABLET BY ity of (PROTONIX) 00:00: prostate MOUTH [place] 40 mg EC 00 DAILY tablet [facility] pantoprazol Yes Adenocarcin TAKE ONE Univers e 9-08 geoff of TABLET BY ity of (PROTONIX) 00:00: prostate MOUTH [place] 40 mg EC 00 DAILY tablet [facility] enalapril Yes Adenocarcin TAKE ONE Univers (VASOTEC) 8-22 geoff of TABLET BY ity of 20 mg 00:00: prostate MOUTH [place] tablet 00 DAILY (SKIP DOSE Anderso IF n SYSTOLIC Cancer BLOOD Center PRESSURE IS LESS THAN 110) enalapril Yes Adenocarcin TAKE ONE Univers (VASOTEC) 8-22 geoff of TABLET BY ity of 20 mg 00:00: prostate MOUTH [place] tablet 00 DAILY (SKIP DOSE Anderso IF n SYSTOLIC Cancer BLOOD Center PRESSURE IS LESS THAN 110) enalapril Yes Adenocarcin TAKE ONE Univers (VASOTEC) 8-22 geoff of TABLET BY ity of 20 mg 00:00: prostate MOUTH [place] tablet 00 DAILY (SKIP DOSE Anderso IF n SYSTOLIC [facility] BLOOD Center PRESSURE IS LESS THAN 110) enalapril Yes Adenocarcin TAKE ONE Univers (VASOTEC) 8-22 geoff of TABLET BY ity of 20 mg 00:00: prostate MOUTH [place] tablet 00 DAILY (SKIP DOSE Anderso IF n SYSTOLIC Cancer BLOOD Center PRESSURE IS LESS THAN 110) enalapril Yes Adenocarcin TAKE ONE Univers (VASOTEC) 8-22 geoff of TABLET BY ity of 20 mg 00:00: prostate MOUTH [place] tablet 00 DAILY (SKIP DOSE Anderso IF n SYSTOLIC Cancer BLOOD Center PRESSURE IS LESS THAN 110) tamsulosin Yes Adenocarcin .4mg Take 1 Univers (FLOMAX) 8-19 geoff of capsule ity of 0.4 mg 24 00:00: prostate (0.4 mg) [place] hr capsule 00 by mouth twice Anderso daily. [facility] tamsulosin Yes Adenocarcin .4mg Take 1 Univers (FLOMAX) 8-19 geoff of capsule ity of 0.4 mg 24 00:00: prostate (0.4 mg) [place] hr capsule 00 by mouth twice Anderso daily. [facility] tamsulosin Yes Adenocarcin .4mg Take 1 Univers (FLOMAX) 8-19 geoff of capsule ity of 0.4 mg 24 00:00: prostate (0.4 mg) [place] hr capsule 00 by mouth twice Anderso daily. [facility] tamsulosin Yes Adenocarcin .4mg Take 1 Univers (FLOMAX) 8-19 geoff of capsule ity of 0.4 mg 24 00:00: prostate (0.4 mg) [place] hr capsule 00 by mouth twice Anderso daily. [facility] tamsulosin Yes Adenocarcin .4mg Take 1 Univers (FLOMAX) 8-19 geoff of capsule ity of 0.4 mg 24 00:00: prostate (0.4 mg) [place] hr capsule 00 by mouth twice Anderso daily. [facility] tamsulosin Yes Adenocarcin .8mg Take 2 Univers (FLOMAX) 7-25 geoff of capsules ity o f 0.4 mg 24 00:00: prostate (0.8 mg) [place] hr capsule 00 by mouth at [facility]. [facility] tamsulosin Yes Adenocarcin .8mg Take 2 Univers (FLOMAX) 7-25 geoff of capsules ity o f 0.4 mg 24 00:00: prostate (0.8 mg) [place] hr capsule 00 by mouth at [facility]. [facility] tamsulosin Yes Adenocarcin .8mg Take 2 Univers (FLOMAX) 7-25 geoff of capsules ity o f 0.4 mg 24 00:00: prostate (0.8 mg) [place] hr capsule 00 by mouth at [facility]. [facility] tamsulosin Yes Adenocarcin .8mg Take 2 Univers (FLOMAX) 7-25 geoff of capsules ity o f 0.4 mg 24 00:00: prostate (0.8 mg) [place] hr capsule 00 by mouth at [facility]. [facility] tamsulosin Yes Adenocarcin .8mg Take 2 Univers (FLOMAX) 7-25 geoff of capsules ity o f 0.4 mg 24 00:00: prostate (0.8 mg) [place] hr capsule 00 by mouth at [facility]. [facility] atorvastati Yes Adenocarcin TAKE ONE Univers n (LIPITOR) 7-14 geoff of TABLET BY i ty of 80 mg 00:00: prostate MOUTH [place] tablet 00 EVERY MD NIGHT AT [facility] atorvastati Yes Adenocarcin TAKE ONE Univers n (LIPITOR) 7-14 geoff of TABLET BY i ty of 80 mg 00:00: prostate MOUTH [place] tablet 00 EVERY MD NIGHT AT [facility] atorvastati Yes Adenocarcin TAKE ONE Univers n (LIPITOR) 7-14 geoff of TABLET BY i ty of 80 mg 00:00: prostate MOUTH [place] tablet 00 EVERY MD NIGHT AT [facility] atorvastati Yes Adenocarcin TAKE ONE Univers n (LIPITOR) 7-14 geoff of TABLET BY i ty of 80 mg 00:00: prostate MOUTH [place] tablet 00 EVERY MD NIGHT AT [facility] atorvastati Yes Adenocarcin TAKE ONE Univers n (LIPITOR) 7-14 geoff of TABLET BY i ty of 80 mg 00:00: prostate MOUTH [place] tablet 00 EVERY MD NIGHT AT [facility] aspirin 81 Yes 81mg Chew 1 Unive rs mg chewable 3-16 tablet (81 it y of tablet 00:00: mg) daily. [facility] aspirin 81 Yes 81mg Chew 1 Unive rs mg chewable 3-16 tablet (81 it y of tablet 00:00: mg) daily. [facility] aspirin 81 Yes 81mg Chew 1 Unive rs mg chewable 3-16 tablet (81 it y of tablet 00:00: mg) daily. [facility] aspirin 81 Yes 81mg Chew 1 Unive rs mg chewable 3-16 tablet (81 it y of tablet 00:00: mg) daily. [facility] aspirin 81 Yes 81mg Chew 1 Unive rs mg chewable 3-16 tablet (81 it y of tablet 00:00: mg) daily. [facility] ibuprofen 2021- No 200mg Take 200 Un pierre (AdviL) 200 3-15 03-15 mg by ity of mg tablet 17:49: 00:00 mouth [place] 57 :00 every 6 MD (six) Anderso hours as n needed for Cancer mild pain. Center As needed for back pain ibuprofen 2021- No 200mg Take 200 Un pierre (AdviL) 200 3-15 03-15 mg by ity of mg tablet 17:49: 00:00 mouth [place] 57 :00 every 6 MD (six) Anderso hours as n needed for Cancer mild pain. Center As needed for back pain ibuprofen 2021- No 200mg Take 200 Un pierre (AdviL) 200 3-15 03-15 mg by ity of mg tablet 17:49: 00:00 mouth [place] 57 :00 every 6 MD (six) Anderso hours as n needed for Cancer mild pain. Center As needed for back pain ibuprofen 2021- No 200mg Take 200 Un pierre (AdviL) 200 3-15 03-15 mg by ity of mg tablet 17:49: 00:00 mouth [place] 57 :00 every 6 MD (six) Anderso hours as n needed for Cancer mild pain. Center As needed for back pain ibuprofen 2021- No 200mg Take 200 Un pierre (AdviL) 200 3-15 03-15 mg by ity of mg tablet 17:49: 00:00 mouth [place] 57 :00 every 6 MD (six) Anderso hours as n needed for Cancer mild pain. Center As needed for back pain acetaminoph Yes 500mg Take 500 U nivers en 3-15 mg by ity of (TYLENOL) 17:49: mouth [place] 500 mg 48 every 6 MD tablet (six) Anderso hours as n needed for Cancer mild pain. [facility] acetaminoph Yes 500mg Take 500 U nivers en 3-15 mg by ity of (TYLENOL) 17:49: mouth [place] 500 mg 48 every 6 MD tablet (six) Anderso hours as n needed for Cancer mild pain. [facility] acetaminoph Yes 500mg Take 500 U nivers en 3-15 mg by ity of (TYLENOL) 17:49: mouth [place] 500 mg 48 every 6 MD tablet (six) Anderso hours as n needed for Cancer mild pain. [facility] acetaminoph Yes 500mg Take 500 U nivers en 3-15 mg by ity of (TYLENOL) 17:49: mouth [place] 500 mg 48 every 6 MD tablet (six) Anderso hours as n needed for Cancer mild pain. [facility] acetaminoph Yes 500mg Take 500 U nivers en 3-15 mg by ity of (TYLENOL) 17:49: mouth [place] 500 mg 48 every 6 MD tablet (six) Anderso hours as n needed for Cancer mild pain. [facility] leuprolide, 2021- No 30mg Inject 30 Univers 4 month, 3-15 03-15 mg under ity of (Eligard, 4 16:06: 00:00 the skin [place] month,) 30 46 :00 every 4 MD mg (four) Anderso injection months. n Last dose Cancer 05/16/2020 [facility] leuprolide, 2021- No 30mg Inject 30 Univers 4 month, 3-15 03-15 mg under ity of (Eligard, 4 16:06: 00:00 the skin [place] month,) 30 46 :00 every 4 MD mg (four) Anderso injection months. n Last dose Cancer 05/16/2020 Center leuprolide, 2021-0 2021- No 30mg Inject 30 Univers 4 month, 3-15 03-15 mg under ity of (Eligard, 4 16:06: 00:00 the skin [place] month,) 30 46 :00 every 4 MD mg (four) Anderso injection months. n Last dose Cancer 05/16/2020 Center leuprolide, 2021-0 2021- No 30mg Inject 30 Univers 4 month, 3-15 03-15 mg under ity of (Eligard, 4 16:06: 00:00 the skin [place] month,) 30 46 :00 every 4 MD mg (four) Anderso injection months. n Last dose Cancer 05/16/2020 Center leuprolide, 2021-0 2021- No 30mg Inject 30 Univers 4 month, 3-15 03-15 mg under ity of (Eligard, 4 16:06: 00:00 the skin [place] month,) 30 46 :00 every 4 MD mg (four) Anderso injection months. n Last dose Cancer 05/16/2020 Center cholecalcif 2021-0 2021- No 2000U Take 2,000 Univers gina, 3-15 03-15 Units by ity of vitamin D3, 15:58: 00:00 mouth [place] (VITAMIN 48 :00 twice MD D3) 2,000 daily. Anderso units tab Patient n tablet instructed Cancer to take Center twice a day cholecalcif 2021-0 2022- No 2000U Take 2,000 Univers gina, 3-15 03-15 Units by ity of vitamin D3, 15:58: 00:00 mouth [place] (VITAMIN 48 :00 twice MD D3) 2,000 daily. Anderso units tab Patient n tablet instructed Cancer to take Center twice a day cholecalcif 2021-0 2- No 2000U Take 2,000 Univers gina, 3-15 03-15 Units by ity of vitamin D3, 15:58: 00:00 mouth [place] (VITAMIN 48 :00 twice MD D3) 2,000 daily. Anderso units tab Patient n tablet instructed Cancer to take Center twice a day cholecalcif 2022-0 2022- No 2000U Take 2,000 Univers gina, 3-15 03-15 Units by ity of vitamin D3, 15:58: 00:00 mouth [place] (VITAMIN 48 :00 twice MD D3) 2,000 daily. Anderso units tab Patient n tablet instructed Cancer to take Center twice a day cholecalcif 2022-0 2022- No 2000U Take 2,000 Univers gina, 3-15 03-15 Units by ity of vitamin D3, 15:58: 00:00 mouth [place] (VITAMIN 48 :00 twice MD D3) 2,000 daily. Anderso units tab Patient n tablet instructed Cancer to take Center twice a day apixaban 2022-0 Yes 5mg Take 1 Univers (Eliquis) 5 3-15 tablet (5 ity of mg tablet 00:00: mg) by [place] 00 mouth MD every 12 Anderso (twelve) n hours. Cancer Center pantoprazol 2022-0 Yes 40mg Take 1 Univ ers e 3-15 tablet (40 ity of (Protonix) 00:00: mg) by [place] 40 mg EC 00 mouth MD tablet daily. [facility] apixaban 2022-0 Yes 5mg Take 1 Univers (Eliquis) 5 3-15 tablet (5 ity of mg tablet 00:00: mg) by [place] 00 mouth MD every 12 Anderso (twelve) n hours. [facility] pantoprazol 2022-0 Yes 40mg Take 1 Univ ers e 3-15 tablet (40 ity of (Protonix) 00:00: mg) by [place] 40 mg EC 00 mouth MD tablet daily. [facility] apixaban 2022-0 Yes 5mg Take 1 Univers (Eliquis) 5 3-15 tablet (5 ity of mg tablet 00:00: mg) by [place] 00 mouth MD every 12 Anderso (twelve) n hours. Cancer Center apixaban 2022-0 Yes 5mg Take 1 Univers (Eliquis) 5 3-15 tablet (5 ity of mg tablet 00:00: mg) by [place] 00 mouth MD every 12 Anderso (twelve) n hours. [facility] apixaban Yes 5mg Take 1 Univers (Eliquis) 5 3-15 tablet (5 ity of mg tablet 00:00: mg) by [place] 00 mouth MD every 12 Anderso (twelve) n hours. [facility] pantoprazol 2021- No 40mg Take 1 Uni vers e 3-15 - tablet (40 ity of (Protonix) 00:00: 00:00 mg) by [place] 40 mg EC 00 :00 mouth MD tablet daily. [facility] pantoprazol 2021- No 40mg Take 1 Uni vers e 3-15 - tablet (40 ity of (Protonix) 00:00: 00:00 mg) [place] 40 mg EC 00 :00 mouth MD tablet daily. [facility] pantoprazol 2021- No 40mg Take 1 Uni vers e 3-15 11-19 tablet (40 ity of (Protonix) 00:00: 00:00 mg) by [place] 40 mg EC 00 :00 mouth MD tablet daily. [facility] enalapril 2021- No 20mg Take 1 Unive rs (VASOTEC) 3-26 10- tablet (20 ity of 20 mg 00:00: 00:00 mg) by [place] tablet 00 :00 mouth MD daily. Anderso Skip dose n if Cancer systolic Center blood pressure (top number) is less than 110. enalapril 2021-0 2021- No 20mg Take 1 Unive rs (VASOTEC) 3-15 - tablet (20 ity of 20 mg 00:00: 00:00 mg) by [place] tablet 00 :00 mouth MD daily. Anderso Skip dose n if Cancer systolic Center blood pressure (top number) is less than 110. enalapril 2021-0 2021- No 20mg Take 1 Unive rs (VASOTEC) 3-15 - tablet (20 ity of 20 mg 00:00: 00:00 mg) by [place] tablet 00 :00 mouth MD daily. Anderso Skip dose n if Cancer systolic Center blood pressure (top number) is less than 110. enalapril 2021- No 20mg Take 1 Unive rs (VASOTEC) 05-26- tablet (20 ity of 20 mg 00:00: 00:00 mg) by [place] tablet 00 :00 mouth MD daily. Anderso Skip dose n if Cancer systolic Center blood pressure (top number) is less than 110. enalapril 2021- No 20mg Take 1 Unive rs (VASOTEC) 05-26 tablet (20 ity of 20 mg 00:00: 00:00 mg) by [place] tablet 00 :00 mouth MD daily. Anderso Skip dose n if Cancer systolic Center blood pressure (top number) is less than 110. atorvastati 2021- No Adenocarcin 80mg Take 1 Univers n (LIPITOR) 05-26-14 geoff of tablet (80 ity of 80 mg 00:00: 00:00 prostate mg) by [place] tablet 00 :00 mouth at [place] bedtime. [facility] atorvastati 2021- No Adenocarcin 80mg Take 1 Univers n (LIPITOR) 05-26- geoff of tablet (80 ity of 80 mg 00:00: 00:00 prostate mg) by [place] tablet 00 :00 mouth at [place] bedtime. [facility] atorvastati 2021- No Adenocarcin 80mg Take 1 Univers n (LIPITOR) 05-26-14 geoff of tablet (80 ity of 80 mg 00:00: 00:00 prostate mg) by [place] tablet 00 :00 mouth at MD bedtime. [facility] atorvastati 2021- No Adenocarcin 80mg Take 1 Univers n (LIPITOR) 05-26-14 geoff of tablet (80 ity of 80 mg 00:00: 00:00 prostate mg) by [place] tablet 00 :00 mouth at [place] bedtime. [facility] atorvastati 2021- No Adenocarcin 80mg Take 1 Univers n (LIPITOR) 05-26-14 geoff of tablet (80 ity of 80 mg 00:00: 00:00 prostate mg) by [place] tablet 00 :00 mouth at [place] bedtime. [facility] enalapril 2021- No Essential TAKE ONE Univers (VASOTEC) 05-18 (primary) TABLET BY ity of 10 mg 00:00: 00:00 hypertensio MOUTH [place] tablet 00 :00 n DAILY ( MD HOLD DOSE Anderso IF SBP<110 n ) [facility] enalapril 2021- No Essential TAKE ONE Univers (VASOTEC) 05-18 (primary) TABLET BY ity of 10 mg 00:00: 00:00 hypertensio MOUTH [place] tablet 00 :00 n DAILY ( MD HOLD DOSE Anderso IF SBP<110 n ) [facility] enalapril 2021- No Essential TAKE ONE Univers (VASOTEC) 05-18 (primary) TABLET BY ity of 10 mg 00:00: 00:00 hypertensio MOUTH [place] tablet 00 :00 n DAILY ( MD HOLD DOSE Anderso IF SBP<110 n ) [facility] enalapril 2021- No Essential TAKE ONE Univers (VASOTEC) 05-18 (primary) TABLET BY ity of 10 mg 00:00: 00:00 hypertensio MOUTH [place] tablet 00 :00 n DAILY ( MD HOLD DOSE Anderso IF SBP<110 n ) [facility] enalapril 2021- No Essential TAKE ONE Univers (VASOTEC) 05-18 (primary) TABLET BY ity of 10 mg 00:00: 00:00 hypertensio MOUTH [place] tablet 00 :00 n DAILY ( MD HOLD DOSE Anderso IF SBP<110 n ) [facility] apixaban 2021- No Paroxysmal 5mg Take 1 Univers (Eliquis) 5 10-28 atrial tablet (5 ity of mg tablet 00:00: 00:00 fibrillatio mg) by [place] 00 :00 n mouth MD every 12 Anderso (twelve) n hours. [facility] apixaban 2021- No Paroxysmal 5mg Take 1 Univers (Eliquis) 5 10-28 atrial tablet (5 ity of mg tablet 00:00: 00:00 fibrillatio mg) by [place] 00 :00 n mouth every 12 Anderso (twelve) n hours. [facility] apixaban 2021- No Paroxysmal 5mg Take 1 Univers (Eliquis) 5 8-17 03-15 atrial tablet (5 ity of mg tablet 00:00: 00:00 fibrillatio mg) by [place] 00 :00 n mouth MD every 12 Anderso (twelve) n hours. [facility] apixaban 2021- No Paroxysmal 5mg Take 1 Univers (Eliquis) 5 8-17 03-15 atrial tablet (5 ity of mg tablet 00:00: 00:00 fibrillatio mg) by [place] 00 :00 n mouth MD every 12 Anderso (twelve) n hours. [facility] apixaban 2021- No Paroxysmal 5mg Take 1 Univers (Eliquis) 5 8-17 03-15 atrial tablet (5 ity of mg tablet 00:00: 00:00 fibrillatio mg) by [place] 00 :00 n mouth MD every 12 Anderso (twelve) n hours. [facility] metoprolol Yes 25mg Take 1 Unive rs succinate 8-16 tablet (25 ity of (TOPROL XL) 00:00: mg) [place] 25 mg 24 hr 00 mouth MD tablet daily. Anderso Hold dose n if Cancer systolic Center blood pressure (top number) is less than 110 or heart rate less than 55. metoprolol Yes 25mg Take 1 Unive rs succinate 8-16 tablet (25 ity of (TOPROL XL) 00:00: mg) [place] 25 mg 24 hr 00 mouth MD tablet daily. [facility] Hold dose n if Cancer systolic Center blood pressure (top number) is less than 110 or heart rate less than 55. metoprolol 0 Yes 25mg Take 1 [facility] rs succinate 8-16 tablet (25 ity of (TOPROL XL) 00:00: mg[place] 25 mg 24 hr 00 mouth MD tablet daily. [facility] Hold dose n if Cancer systolic Center blood pressure (top number) is less than 110 or heart rate less than 55. metoprolol 2021- No 25mg Take 1 [facility] ers succinate 8-16 09-21 tablet (25 ity of (TOPROL XL) 00:00: 00:00 mg) by [place] 25 mg 24 hr 00 :00 mouth MD tablet daily. [facility] Hold dose n if Cancer systolic Center blood pressure (top number) is less than 110 or heart rate less than 55. metoprolol 2021- No 25mg Take 1 [facility] ers succinate 816 09-21 tablet (25 ity of (TOPROL XL) 00:00: 00:00 mg) by [place] 25 mg 24 hr 00 :00 mouth MD tablet daily. [facility] Hold dose n if Cancer systolic Center blood pressure (top number) is less than 110 or heart rate less than 55. diphenoxyla 2021- No Diarrhea 1{tbl} Take 1 [facility] te-atropine -07 06-15 tablet by it y of (LomotiL) 00:00: 00:00 mouth [place] 2.5 00 :00 every 6 MD mg-0.025 mg (six) [facility] per tablet hours as n needed for Cancer diarrhea. Center Not to exceed 8 tablets per day mirtazapine 2021- No Insomnia 7.5mg Take 1 [facility] (REMERON) 10-07-15 due to tablet ity o f 7.5 mg 00:00: 00:00 medical (7.5 mg) [place] tablet 00 :00 condition [facility] diphenoxyla 2021- No Diarrhea 1{tbl} Take 1 [facility] te-atropine -07 06-15 tablet by it y of (LomotiL) 00:00: 00:00 mouth [place] 2.5 00 :00 every 6 MD mg-0.025 mg (six) [facility] per tablet hours as n needed for Cancer diarrhea. Center Not to exceed 8 tablets per day mirtazapine 2021- No Insomnia 7.5mg Take 1 [facility] (REMERON) 10-07-15 due to tablet ity o f 7.5 mg 00:00: 00:00 medical (7.5 mg) [place] tablet 00 :00 condition by mouth MD at [facility] bedtime. n Cancer [facility] diphenoxyla 2021- No Diarrhea 1{tbl} Take 1 [facility] te-atropine 7-27 03-15 tablet by it y of (LomotiL) 00:00: 00:00 mouth [place] 2.5 00 :00 every 6 MD mg-0.025 mg (six) [facility] per tablet hours as n needed for Cancer diarrhea. Center Not to exceed 8 tablets per day mirtazapine 2021- No Insomnia 7.5mg Take 1 [facility] (REMERON) 10-07 due to tablet ity o f 7.5 mg 00:00: 00:00 medical (7.5 mg) [place] tablet 00 :00 condition by mouth MD at [facility] diphenoxyla 2021- No Diarrhea 1{tbl} Take 1 [facility] te-atropine 10-07 tablet by it y of (LomotiL) 00:00: 00:00 mouth [place] 2.5 00 :00 every 6 MD mg-0.025 mg (six) [facility] per tablet hours as n needed for Cancer diarrhea. Center Not to exceed 8 tablets per day mirtazapine 2021- No Insomnia 7.5mg Take 1 [facility] (REMERON) 10-07 due to tablet ity o f 7.5 mg 00:00: 00:00 medical (7.5 mg) [place] tablet 00 :00 condition by mouth at [facility]. [facility] diphenoxyla 2021- No Diarrhea 1{tbl} Take 1 [facility] te-atropine 10-07 tablet by it y of (LomotiL) 00:00: 00:00 mouth [place] 2.5 00 :00 every 6 MD mg-0.025 mg (six) [facility] per tablet hours as n needed for Cancer diarrhea. Center Not to exceed 8 tablets per day mirtazapine 2021- No Insomnia 7.5mg Take 1 [facility] (REMERON) 10-07 due to tablet ity o f 7.5 mg 00:00: 00:00 medical (7.5 mg) [place] tablet 00 :00 [facility] tamsulosin 2021- No Adenocarcin .8mg Take 2 [facility] (FLOMAX) 09-25 07-25 geoff of capsules ity of 0.4 mg 24 00:00: 00:00 prostate (0.8 mg) [place] hr capsule 00 :00 by mouth at [facility] tamsulosin 2021- No Adenocarcin .8mg Take 2 Univers (FLOMAX) 7-25 geoff of capsules ity of 0.4 mg 24 00:00: 00:00 prostate (0.8 mg) [place] hr capsule 00 :00 by mouth MD at [facility] tamsulosin 2021- No Adenocarcin .8mg Take 2 [facility] (FLOMAX) 09-25-25 geoff of capsules ity of 0.4 mg 24 00:00: 00:00 prostate (0.8 mg) [place] hr capsule 00 :00 by mouth MD at [facility] tamsulosin 2021- No Adenocarcin .8mg Take 2 [facility] (FLOMAX) 7-25 geoff of capsules ity of 0.4 mg 24 00:00: 00:00 prostate (0.8 mg) [place] hr capsule 00 :00 by mouth at [facility] tamsulosin 2021- No Adenocarcin .8mg Take 2 [facility] (FLOMAX) 09-25-25 geoff of capsules ity of 0.4 mg 24 00:00: 00:00 prostate (0.8 mg) [place] hr capsule 00 :00 by mouth MD at [facility] enalapril 2021- No 10mg Take 1 Unive rs (VASOTEC) 08-24-07 tablet (10 ity of 10 mg 00:00: 00:00 mg) by [place] tablet 00 :00 mouth MD daily. [facility] Hold dose n if Cancer systolic Center blood pressure (top number) is less than 110. enalapril 2021- No 10mg Take 1 [facility] rs (VASOTEC) 08-24-07 tablet (10 ity of 10 mg 00:00: 00:00 mg) by [place] tablet 00 :00 mouth MD daily. Anderso Hold dose n if Cancer systolic Center blood pressure (top number) is less than 110. enalapril 2021- No 10mg Take 1 [facility] rs (VASOTEC) 08-24-07 tablet (10 ity of 10 mg 00:00: 00:00 mg) by [place] tablet 00 :00 mouth MD daily. [facility]o Hold dose n if Cancer systolic Center blood pressure (top number) is less than 110. enalapril 2021- No 10mg Take 1 [facility] rs (VASOTEC) 08-24- tablet (10 ity of 10 mg 00:00: 00:00 mg) by [place] tablet 00 :00 mouth MD daily. [facility] Hold dose n if Cancer systolic Center blood pressure (top number) is less than 110. enalapril 2021- No 10mg Take 1 [facility] rs (VASOTEC) 08-24- tablet (10 ity of 10 mg 00:00: 00:00 mg) by [place] tablet 00 :00 mouth MD daily. Anderso Hold dose n if Cancer systolic Center blood pressure (top number) is less than 110. bicalutamid 2021- No Adenocarcin 50mg Take 1 Univers e (CASODEX) 07-30-15 geoff of tablet (50 ity of 50 mg 00:00: 00:00 prostate mg) by [place] tablet 00 :00 mouth MD daily. [facility] bicalutamid 2021- No Adenocarcin 50mg Take 1 Univers e (CASODEX) 07-30-15 geoff of tablet (50 ity of 50 mg 00:00: 00:00 prostate mg) by [place] tablet 00 :00 mouth MD daily. [facility] bicalutamid 2021- No Adenocarcin 50mg Take 1 Univers e (CASODEX) 07-30-15 geoff of tablet (50 ity of 50 mg 00:00: 00:00 prostate mg) by [place] tablet 00 :00 mouth MD daily. [facility] bicalutamid 2021- No Adenocarcin 50mg Take 1 Univers e (CASODEX) 5-15 geoff of tablet (50 ity of 50 mg 00:00: 00:00 prostate mg) by [place] tablet 00 :00 mouth MD daily. [facility] bicalutamid 2021- No Adenocarcin 50mg Take 1 Univers e (CASODEX) 5 03-15 geoff of tablet (50 ity of 50 mg 00:00: 00:00 prostate mg) by [place] tablet 00 :00 [facility] pantoprazol 2021- No Adenocarcin 40mg Take 1 [facility] e 3-05 03-15 geoff of tablet (40 ity of (Protonix) 00:00: 00:00 prostate mg) by [place] 40 mg EC 00 :00 mouth MD tablet daily with Anders[facility] breakfast. [facility] pantoprazol 2021- No Adenocarcin 40mg Take 1 Univers e 3-05 03-15 geoff of tablet (40 ity of (Protonix) 00:00: 00:00 prostate mg) by [place] 40 mg EC 00 :00 mouth MD tablet daily with [facility] breakfast. [facility] pantoprazol 2021- No Adenocarcin 40mg Take 1 Univers e 3-05 03-15 geoff of tablet (40 ity of (Protonix) 00:00: 00:00 prostate mg) by [place] 40 mg EC 00 :00 mouth MD tablet daily with [facility] breakfast. [facility] pantoprazol 2021- No Adenocarcin 40mg Take 1 Univers e 3-05 03-15 geoff of tablet (40 ity of (Protonix) 00:00: 00:00 prostate mg) by [place] 40 mg EC 00 :00 mouth MD tablet daily with [facility] breakfast. [facility] pantoprazol 2021- No Adenocarcin 40mg Take 1 Univers e 3-05 03-15 geoff of tablet (40 ity of (Protonix) 00:00: 00:00 prostate mg) by [place] 40 mg EC 00 :00 mouth MD tablet daily with Anderso breakfast. [facility] Dose 2020-0 No Unknown 1-09 00:00: 00 Dose 2020-0 No Unknown 1-09 00:00: 00 Dose 2020-0 No Unknown 1-09 00:00: 00 Dose 2020-0 No Unknown 1-09 00:00: 00 amlodipine 2019-1 No 1mg 5 mg tablet 2- 00:00: 00 enalapril 2019- No 1mg maleate 10 2-03 mg tablet 00:00: 00 amlodipine 2019-03 No 1mg 5 mg tablet 2- 00:00: 00 enalapril 2019- No 1mg maleate 10 2-03 mg tablet 00:00: 00 amlodipine 0 No 1mg 5 mg tablet 11-19 00:00: 00 enalapril 2020-0 No 1mg maleate 10 9-08 mg tablet 00:00: 00 amlodipine 2020-0 No 1mg 5 mg tablet 11-19 00:00: 00 enalapril 2020-0 No 1mg maleate 10 9-08 mg tablet 00:00: 00 tamsulosin 2020-0 Yes [id number] .4mg Take 1 [facility] 0.4 mg 24 7-13 capsule by ity of hr capsule 00:00: mouth [place] 00 daily. Medical Branch tamsulosin 2020-0 Yes [id number] .4mg Take 1 [facility] 0.4 mg 24 7-13 capsule by ity of hr capsule 00:00: mouth [place] 00 daily. Medical Branch tamsulosin 2020-0 Yes [id number] .4mg Take 1 [facility] 0.4 mg 24 7-13 capsule by ity of hr capsule 00:00: mouth [place] 00 daily. Medical Branch tamsulosin 2020-0 Yes [id number] .4mg Take 1 [facility] 0.4 mg 24 7-13 capsule by ity of hr capsule 00:00: mouth [place] 00 daily. Medical Branch tamsulosin 2020-0 Yes [id number] .4mg Take 1 [facility] 0.4 mg 24 7-13 capsule by ity of hr capsule 00:00: mouth [place] 00 daily. Medical Branch tamsulosin 2020-0 Yes [id number] .4mg Take 1 [facility] 0.4 mg 24 7-13 capsule by ity of hr capsule 00:00: mouth [place] 00 daily. Medical Branch tamsulosin 2020-0 Yes [id number] .4mg Take 1 [facility] 0.4 mg 24 7-13 capsule by ity of hr capsule 00:00: mouth [place] 00 daily. Medical Branch tamsulosin 2020-0 Yes [id number] .4mg Take 1 [facility] 0.4 mg 24 7-13 capsule by ity of hr capsule 00:00: mouth [place] 00 daily. Medical Branch tamsulosin 2020-0 Yes [id number] .4mg Take 1 [facility] 0.4 mg 24 7-13 capsule by ity of hr capsule 00:00: mouth [place] 00 daily. Medical Branch tamsulosin 2020-0 Yes [id number] .4mg Take 1 [facility] 0.4 mg 24 7-13 capsule by ity of hr capsule 00:00: mouth [place] 00 daily. Medical Branch tamsulosin 2020-0 Yes [id number] .4mg Take 1 [facility] 0.4 mg 24 7-13 capsule by ity of hr capsule 00:00: mouth [place] 00 daily. Medical Branch tamsulosin 2020-0 Yes [id number] .4mg Take 1 [facility] 0.4 mg 24 7-13 capsule by ity of hr capsule 00:00: mouth [place] 00 daily. Medical Branch tamsulosin 2020-0 Yes [id number] .4mg Take 1 [facility] 0.4 mg 24 7-13 capsule by ity of hr capsule 00:00: mouth [place] 00 daily. Medical Branch tamsulosin 2020-0 Yes [id number] .4mg Take 1 [facility] 0.4 mg 24 7-13 capsule by ity of hr capsule 00:00: mouth [place] 00 daily. Medical Branch tamsulosin 2020-0 Yes [id number] .4mg Take 1 [facility] 0.4 mg 24 7-13 capsule by ity of hr capsule 00:00: mouth [place] 00 daily. Medical Branch tamsulosin 2020-0 Yes [id number] .4mg Take 1 [facility] 0.4 mg 24 7-13 capsule by ity of hr capsule 00:00: mouth [place] 00 daily. Medical Branch tamsulosin 2020-0 Yes [id number] .4mg Take 1 [facility] 0.4 mg 24 7-13 capsule by ity of hr capsule 00:00: mouth [place] 00 daily. Medical Branch tamsulosin 2020-0 Yes [id number] .4mg Take 1 [facility] 0.4 mg 24 7-13 capsule by ity of hr capsule 00:00: mouth [place] 00 daily. Medical Branch tamsulosin 2020-0 Yes [id number] .4mg Take 1 [facility] 0.4 mg 24 7-13 capsule by ity of hr capsule 00:00: mouth [place] 00 daily. Medical Branch tamsulosin 2020-0 Yes [id number] .4mg Take 1 [facility] 0.4 mg 24 7-13 capsule by ity of hr capsule 00:00: mouth [place] 00 daily. Medical Branch tamsulosin 2020-0 Yes [id number] .4mg Take 1 [facility] 0.4 mg 24 7-13 capsule by ity of hr capsule 00:00: mouth [place] 00 daily. Medical Branch tamsulosin 2020-0 Yes [id number] .4mg Take 1 [facility] 0.4 mg 24 7- capsule by ity of hr capsule 00:00: mouth [place] 00 daily. Medical Branch tamsulosin 2020- No [id number] .4mg Take 1 [facility] 0.4 mg 24 7-12 18-12 capsule by ity of hr capsule 00:00: 00:00 mouth [place] 00 :00 daily. Medical Branch cefTRIAXone 2019-0 2020- No 500mg Univ ers (ROCEPHIN) 09-13 ity of injection 15:45: 15:10 [place] 500 mg 00 :00 Medical Branch gentamicin 2019-0 2020- No 80mg Univer s INTRAMUSCUL 09-13 ity of AR syringe 15:45: 15:10 [place] 80 mg 00 :00 Medical Branch gentamicin 2019- 2020- No 80mg 80 mg, Univ ers [...] 1 dose, Medical Tue09/14/19 Branch at 1045, AH
Re ason for Anti-Infec tive: Surgical Prophylaxi [...] of surgery mineral oil 2020-0 2020- No [id number] 1{enema Insert 1 [facility] (READY-TO-U 09-06 } Enema into i ty of SE ENEMA, 00:00: 04:59 rectum [place] MIN OIL,) 00 :00 once now Medica l enema for 1 Branch dose. Perform morning of procedure. mineral oil 2019-0 2020- No [id number] 1{enema Insert 1 [facility] (READY-TO-U 09-06 } Enema into i ty of SE ENEMA, 00:00: 04:59 rectum [place] MIN OIL,) 00 :00 once now Medica l enema for 1 Branch dose. Perform morning of procedure. mineral oil 2019-0 2020- No [id number] 1{enema Insert 1 [facility] (READY-TO-U 09-06 } Enema into i ty of SE ENEMA, 00:00: 04:59 rectum [place] MIN OIL,) 00 :00 once now Medica l enema for 1 Branch dose. Perform morning of procedure. mineral oil 2019-0 2020- No [id number] 1{enema Insert 1 [facility] (READY-TO-U 09-06 } Enema into i ty of SE ENEMA, 00:00: 04:59 rectum [place] MIN OIL,) 00 :00 once now Medica l enema for 1 Branch dose. Perform morning of procedure. ciprofloxac 2020-0 Yes [id number] 500mg Take 1 [facility] in HCl 500 6-25 tablet by ity of mg tablet 00:00: mouth [place] 00 every 12 Medical (twelve) Branch hours. Start 1 day before procedure. ciprofloxac 2020-0 Yes [id number] 500mg Take 1 [facility] in HCl 500 6-25 tablet by ity of mg tablet 00:00: mouth [place] 00 every 12 Medical (twelve) Branch hours. Start 1 day before procedure. ciprofloxac 2020-0 Yes [id number] 500mg Take 1 [facility] in HCl 500 6-25 tablet by ity of mg tablet 00:00: mouth [place] 00 every 12 Medical (twelve) Branch hours. Start 1 day before procedure. ciprofloxac 2020-0 Yes [id number] 500mg Take 1 [facility] in HCl 500 6-25 tablet by ity of mg tablet 00:00: mouth [place] 00 every 12 Medical (twelve) Branch hours. Start 1 day before procedure. ciprofloxac 2020-0 Yes [id number] 500mg Take 1 [facility] in HCl 500 6-25 tablet by ity of mg tablet 00:00: mouth [place] 00 every 12 Medical (twelve) Branch hours. Start 1 day before procedure. ciprofloxac 2020-0 Yes [id number] 500mg Take 1 [facility] in HCl 500 6-25 tablet by ity of mg tablet 00:00: mouth [place] 00 every 12 Medical (twelve) Branch hours. Start 1 day before procedure. ciprofloxac 2020-0 Yes [id number] 500mg Take 1 [facility] in HCl 500 6-25 tablet by ity of mg tablet 00:00: mouth [place] 00 every 12 Medical (twelve) Branch hours. Start 1 day before procedure. ciprofloxac 2020-0 Yes [id number] 500mg Take 1 [facility] in HCl 500 6-25 tablet by ity of mg tablet 00:00: mouth [place] 00 every 12 Medical (twelve) Branch hours. Start 1 day before procedure. ciprofloxac 2020-0 Yes [id number] 500mg Take 1 [facility] in HCl 500 6-25 tablet by ity of mg tablet 00:00: mouth [place] 00 every 12 Medical (twelve) Branch hours. Start 1 day before procedure. ciprofloxac 2020-0 Yes [id number] 500mg Take 1 [facility] in HCl 500 6-25 tablet by ity of mg tablet 00:00: mouth [place] 00 every 12 Medical (twelve) Branch hours. Start 1 day before procedure. ciprofloxac 2020-0 Yes [id number] 500mg Take 1 [facility] in HCl 500 6-25 tablet by ity of mg tablet 00:00: mouth [place] 00 every 12 Medical (twelve) Branch hours. Start 1 day before procedure. ciprofloxac 2020-0 Yes [id number] 500mg Take 1 [facility] in HCl 500 6-25 tablet by ity of mg tablet 00:00: mouth [place] 00 every 12 Medical (twelve) Branch hours. Start 1 day before procedure. ciprofloxac 2020-0 Yes [id number] 500mg Take 1 [facility] in HCl 500 6-25 tablet by ity of mg tablet 00:00: mouth [place] 00 every 12 Medical (twelve) Branch hours. Start 1 day before procedure. ciprofloxac 2020-0 Yes [id number] 500mg Take 1 [facility] in HCl 500 6-25 tablet by ity of mg tablet 00:00: mouth [place] 00 every 12 Medical (twelve) Branch hours. Start 1 day before procedure. ciprofloxac 2020-0 Yes [id number] 500mg Take 1 [facility] in HCl 500 6-25 tablet by ity of mg tablet 00:00: mouth [place] 00 every 12 Medical (twelve) Branch hours. Start 1 day before procedure. ciprofloxac 2020-0 Yes [id number] 500mg Take 1 [facility] in HCl 500 6-25 tablet by ity of mg tablet 00:00: mouth [place] 00 every 12 Medical (twelve) Branch hours. Start 1 day before procedure. ciprofloxac 2020-0 Yes [id number] 500mg Take 1 [facility] in HCl 500 6-25 tablet by ity of mg tablet 00:00: mouth [place] 00 every 12 Medical (twelve) Branch hours. Start 1 day before procedure. ciprofloxac 2020-0 Yes [id number] 500mg Take 1 [facility] in HCl 500 6-25 tablet by ity of mg tablet 00:00: mouth [place] 00 every 12 Medical (twelve) Branch hours. Start 1 day before procedure. ciprofloxac 2020-0 Yes [id number] 500mg Take 1 [facility] in HCl 500 6-25 tablet by ity of mg tablet 00:00: mouth [place] 00 every 12 Medical (twelve) Branch hours. Start 1 day before procedure. ciprofloxac 2020-0 Yes [id number] 500mg Take 1 [facility] in HCl 500 6-25 tablet by ity of mg tablet 00:00: mouth [place] 00 every 12 Medical (twelve) Branch hours. Start 1 day before procedure. ciprofloxac 2020-0 2020- No [id number] 500mg Take 1 [facility] in HCl 500 6-25 07-30 tablet by ity of mg tablet 00:00: 00:00 mouth [place] 00 :00 every 12 Medical (twelve) Branch hours. Start 1 day before procedure. ciprofloxac 2020-0 2020- No [id number] 500mg Take 1 [facility] in HCl 500 6-25 07-30 tablet by ity of mg tablet 00:00: 00:00 mouth [place] 00 :00 every 12 Medical (twelve) Branch hours. Start 1 day before procedure. ciprofloxac 2020-0 2020- No [id number] 500mg Take 1 [facility] in HCl 500 6-25 07-30 tablet by ity of mg tablet 00:00: 00:00 mouth [place] 00 :00 every 12 Medical (twelve) Branch hours. Start 1 day before procedure. ciprofloxac 2020-0 2020- No [id number] 500mg Take 1 [facility] in HCl 500 6-25 07-30 tablet by ity of mg tablet 00:00: 00:00 mouth [place] 00 :00 every 12 Medical (twelve) Branch hours. Start 1 day before procedure. ciprofloxac 2020-0 2020- No [id number] 500mg Take 1 [facility] in HCl 500 6-25 07-03 tablet by ity of mg tablet 00:00: 04:59 mouth [place] 00 :00 every 12 Medical (twelve) Branch hours for 7 days. ciprofloxac 2020-0 2020- No [id number] 500mg Take 1 [facility] in HCl 500 6-25 07-03 tablet by ity of mg tablet 00:00: 04:59 mouth [place] 00 :00 every 12 Medical (twelve) Branch hours for 7 days. enalapril 2020-0 Yes 10mg Take 10 mg [facility] 10 mg 6-22 by mouth ity of tablet 20:31: daily. [address] amLODIPine 2020-0 Yes 5mg Take 5 mg Un [facility] 5 mg tablet 6-22 by mouth ity of 20:31: daily. [address] enalapril 2020-0 Yes 10mg Take 10 mg [facility] [place] 10 mg 6-22 by mouth ity of tablet 20:31: daily. [address] amLODIPine 2020-0 Yes 5mg Take 5 mg [facility] 5 mg tablet 6-22 by mouth ity of 20:31: daily. [address] enalapril 2020-0 Yes 10mg Take 10 mg [facility] [place] 10 mg 6-22 by mouth ity of tablet 20:31: daily. [address] amLODIPine 2020-0 Yes 5mg Take 5 mg [facility] 5 mg tablet 6-22 by mouth ity of 20:31: daily. [address] enalapril 2020-0 Yes 10mg Take 10 mg [facility] [place] 10 mg 6-22 by mouth ity of tablet 20:31: daily. [address] amLODIPine 2020-0 Yes 5mg Take 5 mg Un [facility] 5 mg tablet 6-22 by mouth ity of 20:31: daily. [address] enalapril 2020-0 Yes 10mg Take 10 mg [facility] [place] 10 mg 6-22 by mouth ity of tablet 20:31: daily. [address] amLODIPine 2020-0 Yes 5mg Take 5 mg [facility] 5 mg tablet 6-22 by mouth ity of 20:31: daily. [address] enalapril 2020-0 Yes 10mg Take 10 mg [facility] [place] 10 mg 6-22 by mouth ity of tablet 20:31: daily. [address] amLODIPine 2020-0 Yes 5mg Take 5 mg [facility] 5 mg tablet 6-22 by mouth ity of 20:31: daily. [address] enalapril 2020-0 Yes 10mg Take 10 mg [facility] [place] 10 mg 6-22 by mouth ity of tablet 20:31: daily. [address] amLODIPine 2020-0 Yes 5mg Take 5 mg [facility] 5 mg tablet 6-22 by mouth ity of 20:31: daily. [address] enalapril 2020-0 Yes 10mg Take 10 mg [facility] [place] 10 mg 6-22 by mouth ity of tablet 20:31: daily. [address] amLODIPine 2020-0 Yes 5mg Take 5 mg [facility] 5 mg tablet 6-22 by mouth ity of 20:31: daily. [address] enalapril 2020-0 Yes 10mg Take 10 mg [facility] [place] 10 mg 6-22 by mouth ity of tablet 20:31: daily. [address] amLODIPine 2020-0 Yes 5mg Take 5 mg [facility] [place] 5 mg tablet 6-22 by mouth ity of 20:31: daily. [address] enalapril 2020-0 Yes 10mg Take 10 mg [facility] [place] 10 mg 6-22 by mouth ity of tablet 20:31: daily. [address] amLODIPine 2020-0 Yes 5mg Take 5 mg [facility] [place] 5 mg tablet 6-22 by mouth ity of 20:31: daily. [address] enalapril 2020-0 Yes 10mg Take 10 mg [facility] [place] 10 mg 6-22 by mouth ity of tablet 20:31: daily. [address] amLODIPine 2020-0 Yes 5mg Take 5 mg [facility] [place] 5 mg tablet 6-22 by mouth ity of 20:31: daily. [address] enalapril 2020-0 Yes 10mg Take 10 mg [facility] [place] 10 mg 6-22 by mouth ity of tablet 20:31: daily. [address] amLODIPine 2020-0 Yes 5mg Take 5 mg [facility] [place] 5 mg tablet 6-22 by mouth ity of 20:31: daily. [address] enalapril 2020-0 Yes 10mg Take 10 mg [facility] [place] 10 mg 6-22 by mouth ity of tablet 20:31: daily. [address] amLODIPine 2020-0 Yes 5mg Take 5 mg [facility] [place] 5 mg tablet 6-22 by mouth ity of 20:31: daily. [address] enalapril 2020-0 Yes 10mg Take 10 mg [facility] [place] 10 mg 6-22 by mouth ity of tablet 20:31: daily. [address] amLODIPine 2020-0 Yes 5mg Take 5 mg [facility] [place] 5 mg tablet 6-22 by mouth ity of 20:31: daily. [address] enalapril 2020-0 Yes 10mg Take 10 mg [facility] [place] 10 mg 6-22 by mouth ity of tablet 20:31: daily. [address] amLODIPine 2020-0 Yes 5mg Take 5 mg [facility] [place] 5 mg tablet 6-22 by mouth ity of 20:31: daily. [address] enalapril 2020-0 Yes 10mg Take 10 mg [facility] [place] 10 mg 6-22 by mouth ity of tablet 20:31: daily. [address] amLODIPine 2020-0 Yes 5mg Take 5 mg [facility] [place] 5 mg tablet 6-22 by mouth ity of 20:31: daily. [address] enalapril 2020-0 Yes 10mg Take 10 mg [facility] [place] 10 mg 6-22 by mouth ity of tablet 20:31: daily. [address] amLODIPine 2020-0 Yes 5mg Take 5 mg [facility] [place] 5 mg tablet 6-22 by mouth ity of 20:31: daily. [address] enalapril 2020-0 Yes 10mg Take 10 mg [facility] [place] 10 mg 6-22 by mouth ity of tablet 20:31: daily. [address] amLODIPine 2020-0 Yes 5mg Take 5 mg [facility] [place] 5 mg tablet 6-22 by mouth ity of 20:31: daily. [address] enalapril 2020-0 Yes 10mg Take 10 mg [facility] [place] 10 mg 6-22 by mouth ity of tablet 20:31: daily. [address] amLODIPine 2020-0 Yes 5mg Take 5 mg [facility] [place] 5 mg tablet 6-22 by mouth ity of 20:31: daily. [address] enalapril 2020-0 Yes 10mg Take 10 mg [facility] [place] 10 mg 6-22 by mouth ity of tablet 20:31: daily. [address] enalapril 2020-0 Yes 10mg Take 10 mg [facility] [place] 10 mg 6-22 by mouth ity of tablet 20:31: daily. [address] amLODIPine 2020-0 Yes 5mg Take 5 mg [facility] [place] 5 mg tablet 6-22 by mouth ity of 20:31: daily. [address] enalapril 2020-0 Yes 10mg Take 10 mg [facility] [place] 10 mg 6-22 by mouth ity of tablet 20:31: daily. [address] amLODIPine 2020-0 Yes 5mg Take 5 mg [facility] [place] 5 mg tablet 6-22 by mouth ity of 20:31: daily. [address] amLODIPine 2020-0 Yes 5mg Take 5 mg [facility] [place] 5 mg tablet 6-22 by mouth ity of 20:31: daily. [address] enalapril 2020-0 Yes 10mg Take 10 mg [facility] [place] 10 mg 6-22 by mouth ity of tablet 20:31: daily. [address] amLODIPine 2020-0 Yes 5mg Take 5 mg [facility] 5 mg tablet 6-22 by mouth ity of 20:31: daily. [address] enalapril 2020-0 Yes 10mg Take 10 mg [facility] [place] 10 mg 6-22 by mouth ity of tablet 20:31: daily. [address] amLODIPine 2020-0 Yes 5mg Take 5 mg [facility] 5 mg tablet 6-22 by mouth ity of 20:31: daily. [address] enalapril 2020-0 Yes 10mg Take 10 mg [facility] 10 mg 6-22 by mouth ity of tablet 20:31: daily. [address] amLODIPine 2020-0 Yes 5mg Take 5 mg [facility] [place] 5 mg tablet 6-22 by mouth ity of 20:31: daily. [address] enalapril 2020-0 Yes 10mg Take 10 mg [place] 10 mg 6-22 by mouth ity of tablet 20:31: daily. [address] amLODIPine 2020-0 Yes 5mg Take 5 mg [facility] 5 mg tablet 6-22 by mouth ity of 20:31: daily. [address] enalapril 2020-0 Yes 10mg Take 10 mg Un [place] 10 mg 6-22 by mouth ity of tablet 20:31: daily. [address] amLODIPine 2020-0 Yes 5mg Take 5 mg [place] 5 mg tablet 6-22 by mouth ity of 20:31: daily. [address] enalapril 2020-0 Yes 10mg Take 10 mg [place] 10 mg 6-22 by mouth ity of tablet 20:31: daily. [address] amLODIPine 2020-0 Yes 5mg Take 5 mg [place] 5 mg tablet 6-22 by mouth ity of 20:31: daily. [address] enalapril 2020-0 Yes 10mg Take 10 mg [place] 10 mg 6-22 by mouth ity of tablet 20:31: daily. [address] amLODIPine 2020-0 Yes 5mg Take 5 mg Un [place] 5 mg tablet 6-22 by mouth ity of 20:31: daily. [address] enalapril 2020-0 Yes 10mg Take 10 mg [place] 10 mg 6-22 by mouth ity of tablet 20:31: daily. [address] amLODIPine 2020-0 Yes 5mg Take 5 mg Un [place] 5 mg tablet 6-22 by mouth ity of 20:31: daily. [address] enalapril 2020-0 Yes 10mg Take 10 mg [place] 10 mg 6-22 by mouth ity of tablet 20:31: daily. [address] amLODIPine 2020-0 Yes 5mg Take 5 mg Un [place] 5 mg tablet 6-22 by mouth ity of 20:31: daily. [address] enalapril 2020-0 Yes 10mg Take 10 mg Un [place] 10 mg 6-22 by mouth ity of tablet 20:31: daily. [place] [facility] amLODIPine 2020-0 Yes 5mg Take 5 mg Un pier[place] 5 mg tablet 6-22 by mouth ity of 20:31: daily. [address] enalapril 2020-0 Yes 10mg Take 10 mg Un [place] 10 mg 6-22 by mouth ity of tablet 20:31: daily. [address] amLODIPine 2020-0 Yes 5mg Take 5 mg Un [place] 5 mg tablet 6-22 by mouth ity of 20:31: daily. [address] enalapril 2020-0 Yes 10mg Take 10 mg [place] 10 mg 6-22 by mouth ity of tablet 20:31: daily. [address] amLODIPine 2020-0 Yes 5mg Take 5 mg Un [place] 5 mg tablet 6-22 by mouth ity of 20:31: daily. [address] enalapril 2020-0 Yes 10mg Take 10 mg [place] 10 mg 6-22 by mouth ity of tablet 20:31: daily. [address] enalapril 2020-0 Yes 10mg Take 10 mg [place] 10 mg 6-22 by mouth ity of tablet 20:31: daily. [address] amLODIPine 2020-0 Yes 5mg Take 5 mg Un [place] 5 mg tablet 6-22 by mouth ity of 20:31: daily. [address] amLODIPine 2020-0 Yes 5mg Take 5 mg Un [place] 5 mg tablet 6-22 by mouth ity of 20:31: daily. [address] enalapril 2020-0 Yes 10mg Take 10 mg [place] 10 mg 6-22 by mouth ity of tablet 20:31: daily. [address] amLODIPine 2020-0 Yes 5mg Take 5 mg Un [place] 5 mg tablet 6-22 by mouth ity of 20:31: daily. [address] enalapril 2020-0 Yes 10mg Take 10 mg [place] 10 mg 6-22 by mouth ity of tablet 20:31: daily. [address] amLODIPine 2020-0 Yes 5mg Take 5 mg Un [place] 5 mg tablet 6-22 by mouth ity of 20:31: daily. [address] enalapril 2020-0 Yes 10mg Take 10 mg Un pier[place] 10 mg 6-22 by mouth ity of tablet 20:31: daily. [address] amLODIPine 2020-0 Yes 5mg Take 5 mg Un pier[place] 5 mg tablet 6-22 by mouth ity of 20:31: daily. [address] ciprofloxac 2019-0 2020- No [id number] 500mg Take 1 Univers in HCl 500 6-22 06-22 tablet by ity of mg tablet 00:00: 00:00 mouth [place] 00 :00 every 12 Medical (twelve) Branch hours for 3 days. Start 1 day before procedure. ciprofloxac 2019-0 2020- No [id number] 500mg Take 1 Univers in HCl 500 6-22 06-22 tablet by ity of mg tablet 00:00: 00:00 mouth [place] 00 :00 every 12 Medical (twelve) Branch hours for 3 days. Start 1 day before procedure. ciprofloxac 2019-0 2020- No [id number] 500mg Take 1 Univers in HCl 500 6-22 06-22 tablet by ity of mg tablet 00:00: 00:00 mouth [place] 00 :00 every 12 Medical (twelve) Branch hours for 3 days. Start 1 day before procedure. ciprofloxac 2019-0 2020- No [id number] 500mg Take 1 Univers in HCl 500 6-22 06-22 tablet by ity of mg tablet 00:00: 00:00 mouth [place] 00 :00 every 12 Medical (twelve) Branch hours for 3 days. Start 1 day before procedure. No known No Univers medications ity of [facility] Immunizations Ordered Filled Immunization Date Status Comments [facility] e Immunization Name Name Kendra SARS-CoV-2 2020-05-31 Completed Univer sity of Vaccination 00:00:00 Sita Wagner [facility] Kendra SARS-CoV-2 2020-05-31 Completed Univer sity of Vaccination 00:00:00 Sita Wagner [facility] Kendra SARS-CoV-2 2020-05-31 Completed Univer sity of Vaccination 00:00:00 Sita Wagner marycarmen [facility] Kendra SARS-CoV-2 2020-05-31 Completed Univer sity of Vaccination 00:00:00 Sita Wagner [facility] Kendra SARS-CoV-2 2020-05-31 Completed Univer sity of Vaccination 00:00:00 Sita Wagner [facility] remdesivir 2020-03-07 Completed University of 00:00:00 Sita Acosta [facility] remdesivir 2020-03-07 Completed University of 00:00:00 Sita ANDINO Dave [facility] remdesivir 2020-03-07 Completed University of 00:00:00 Sita ANDINO Dave [facility] remdesivir 2020-03-07 Completed University of 00:00:00 Sita ANDINO Dave [facility] remdesivir 2020-03-07 Completed University of 00:00:00 Sita ANDINO Dave [facility] remdesivir 2020-03-06 Completed University of 00:00:00 Sita ANDINO Dave [facility] remdesivir 2020-03-06 Completed University of 00:00:00 Sita ANDINO Dave [facility] remdesivir 2020-03-06 Completed University of 00:00:00 Sita ANDINO Dave [facility] remdesivir 2020-03-06 Completed University of 00:00:00 Sita ANDINO Dave [facility] remdesivir 2020-03-06 Completed University of 00:00:00 Sita ANDINO Dave [facility] remdesivir 2020-03-05 Completed University of 00:00:00 Sita ANDINO Dave [facility] remdesivir 2020-03-05 Completed University of 00:00:00 Sita ANDINO Dave [facility] remdesivir 2020-03-05 Completed University of 00:00:00 Sita ANDINO Dave [facility] remdesivir 2020-03-05 Completed University of 00:00:00 Sita ANDINO Dave [facility] remdesivir 2020-03-05 Completed University of 00:00:00 Sita ANDINO Dave [facility] remdesivir 2020-03-04 Completed University of 00:00:00 Sita Gonsaleser [facility] remdesivir 2020-03-04 Completed University of 00:00:00 Stia Gonsaleser [facility] remdesivir 2020-03-04 Completed University of 00:00:00 Sita ANDINO Dave [facility] remdesivir 2020-03-04 Completed University of 00:00:00 Sita Gonsaleser [facility] remdesivir 2020-03-04 Completed University of 00:00:00 Sita ANDINO Dave [facility] remdesivir 2020-03-03 Completed University of 00:00:00 Sita ANDINO Dave [facility] remdesivir 2020-03-03 Completed University of 00:00:00 Sita Gonsaleser [facility] remdesivir 2020-03-03 Completed University of 00:00:00 [facility] remdesivir 2020-03-03 Completed University of 00:00:00 [facility] remdesivir 2020-03-03 Completed University of 00:00:00 [facility] pneumococcal 2020-01-10 Completed polysacchar 00:00:00 Tdap 2020-01-10 Completed 00:00:00 pneumococcal 2020-01-10 Completed polysacchar 00:00:00 Tdap 2020-01-10 Completed 00:00:00 Influenza, 2020-01-01 Completed seasonal, inj 00:00:00 Influenza, 2020-01-01 Completed seasonal, inj 00:00:00 Vital Signs Vital Name Observation Time Observation Value Comments Source WEIGHT 2020-02-13 11:54:00 65.8 kg Systolic blood 2019-10-11 18:23:00 153 mm[Hg] Univer sity of pressure [facility] Diastolic blood 2019-10-11 18:23:00 69 mm[Hg] Unive rsity of [facility] Heart rate 2019-10-11 18:23:00 64 /min [facility] Body temperature 2019-10-11 18:23:00 36.67 [facility] Res[facility] rate 2019-10-11 18:23:00 14 /min [facility] Body weight 2019-10-11 18:23:[address] [facility] BMI 2019-10-11 18:23:00 23.16 kg/m2 [facility] Oxygen saturation in 2019-10-11 18:23:00 96 /min [place] of Arterial blood by [facility] Pulse oximetry Branch Systolic blood 2019-09-14 15:02:00 150 mm[Hg] Univer sity of pressure [facility] Diastolic blood 2019-09-14 15:02:00 71 mm[Hg] Unive rsity of pressure [facility] Heart rate 2019-09-14 15:02:00 68 /min [facility] Body temperature 2019-09-14 15:02:00 36.78 [facility] Respiratory rate 2019-09-14 15:02:00 15 /min [facility] Body weight 2019-09-14 15:02:[address] [facility] BMI 2019-09-14 15:02:00 24.37 kg/m2 Universi ty of [facility] Oxygen saturation in 2019-09-14 15:02:00 98 /min University of Arterial blood by [facility] Pulse oximetry Branch Systolic blood 2019-09-03 20:27:00 156 mm[Hg] Univer sity of pressure [facility] Diastolic blood 2019-09-03 20:27:00 76 mm[Hg] Unive rsity of pressure [facility] Heart rate 2019-09-03 20:27:00 80 /min Universi ty of [facility] Body temperature 2019-09-03 20:27:00 36.44 Lyn Univ ersity of [facility] Respiratory rate 2019-09-03 20:27:00 14 /min [facility] Body height 2019-09-03 20:27:00 167.6 cm Universi ty of [facility] Body weight 2019-09-03 20:27:00 68.493 kg Universi ty [facility] BMI 2019-09-03 20:27:00 24.37 kg/m2 Universi ty [facility] Oxygen saturation in 2019-09-03 20:27:00 99 /min University of Arterial blood by [facility] Pulse oximetry Branch BP Systolic 2021-12-11 09:07:00 195 mm[Hg] BP Diastolic 2021-12-11 09:07:00 77 mm[Hg] Weight Measured 2021-12-11 09:07:00 134.40 pounds Height Measured 2021-12-11 09:07:00 64.96 inches Body Temperature 2021-12-11 09:07:00 98.30 degrees Heart Rate 2021-12-11 09:07:00 58.00 /min Respiratory Rate 2021-12-11 09:07:00 17.00 /min BP Systolic 2021-11-10 08:51:00 176 mm[Hg] BP Diastolic 2021-11-10 08:51:00 73 mm[Hg] Weight Measured 2021-11-10 08:51:00 135.00 pounds Height Measured 2021-11-10 08:51:00 64.96 inches Body Temperature 2021-11-10 08:51:00 98.10 degrees Heart Rate 2021-11-10 08:51:00 67.00 /min Respiratory Rate 2021-11-10 08:51:00 16.00 /min Systolic blood 2021-05-26 20:34:00 139 mm[Hg] Univer sity of [facility] Diastolic blood 2021-05-26 20:34:00 79 mm[Hg] Unive rsity of pressure [facility] Heart rate 2021-05-26 20:34:00 58 /min [facility] [place] [facility] Oxygen saturation in 2021-05-26 20:34:00 95 /min University Arterial blood by Sita bond Pulse oxim[facility] Body temperature 2021-05-26 19:59:39 36.72 [facility] Respiratory rate 2021-05-26 19:59:39 18 /min [facility] Body height 2021-05-23 03:14:00 161 cm Universi ty [facility] Body weight 2021-05-23 03:14:00 62.8 kg Universi ty [facility] BMI 2021-05-23 03:14:00 24.23 kg/m2 Universi ty [facility] BP Systolic 2020-06-27 14:33:00 158 mm[Hg] BP Diastolic 2020-06-27 14:33:00 72 mm[Hg] Weight Measured 2020-06-27 14:33:00 146.00 pounds Height Measured 2020-06-27 14:33:00 64.96 inches Body Temperature 2020-06-27 14:33:00 97.80 degrees Heart Rate 2020-06-27 14:33:00 59.00 /min Respiratory Rate 2020-06-27 14:33:00 16.00 /min BP Systolic 2020-01-10 08:28:00 166 mm[Hg] BP Diastolic 2020-01-10 08:28:00 66 mm[Hg] Weight Measured 2020-01-10 08:28:00 146.60 pounds Height Measured 2020-01-10 08:28:00 64.96 inches Body Temperature 2020-01-10 08:28:00 98.10 degrees Heart Rate 2020-01-10 08:28:00 60.00 /min Respiratory Rate 2020-01-10 08:28:00 16.00 /min Procedures Procedure Date / Time Performing Clinician Source Performed TROPONIN T 2021-05-26 08:15:00 Donell Sosa [facility] LEFT HEART CATH 2021-05-25 20:45:00 Brandon [facility] ECHOCARDIOGRAM 2D COMPLETE 2021-05-25 16:20:18 Donell Sosa [facility] [place] [facility] TROPONIN T 2021-05-25 09:59:00 Donell Sosa [facility] PROSTATE SPECIFIC ANTIGEN 2021-05-25 09:59:00 Almas Clements [facility] TESTOSTERONE LEVEL 2021-05-25 09:59:00 [facility] 2021-05-24 18:07:00 Brandon [facility] APTT 2021-05-24 18:07:00 Brandon [facility] PROTHROMBIN TIME 2021-05-24 18:07:00 Brandon [facility] IMMATURE PLATELET FRACTION 2021-05-24 18:07:00 Oma Hoang [facility] [place] [facility] RETICULOCYTE COUNT 2021-05-24 18:07:00 Oma Hoang [facility] AUTOMATED [facility] CLOT EXPIRATION DATE 2021-05-24 18:07:00 Oma Hoang [facility] BASIC METABOLIC PANEL, 2021-05-24 09:19:00 Donell Sosa [facility] CALCIUM TOTAL [facility] MAGNESIUM LEVEL 2021-05-24 09:19:00 Donell Sosa [facility] PHOSPHORUS LEVEL 2021-05-24 09:19:00 Donell Sosa [facility] TROPONIN T 2021-05-24 09:19:00 Donell Sosa [facility] GLUCOSE LEVEL 2021-05-24 09:19:00 Yeny [facility] BLOOD UREA NITROGEN 2021-05-24 09:19:00 Donell Sosa [facility] ELECTROLYTE PANEL 2021-05-24 09:19:00 Yeny [facility] SERUM CREATININE 2021-05-24 09:19:00 Yeny [facility] .GLOMERULAR FILTRATION 2021-05-24 09:19:00 Donell Sosa [facility] RATE [facility] CALCIUM LEVEL TOTAL 2021-05-24 09:19:00 [facility] T 2021-05-24 01:03:00 Brandon [facility] EKG, 12-LEAD (PORTABLE) 2021-05-24 00:00:00 Marielle Grubbs [facility] TROPONIN T 2021-05-23 19:05:00 Brandon [facility] BASIC METABOLIC PANEL, 2021-05-23 08:00:00 Donell Sosa [facility] CALCIUM TOTAL [facility] MAGNESIUM LEVEL 2021-05-23 08:00:00 Yeny [facility] PHOSPHORUS LEVEL 2021-05-23 08:00:00 Yeny [facility] TROPONIN T 2021-05-23 08:00:00 Yeny [facility] GLUCOSE LEVEL 2021-05-23 08:00:00 Yeny [facility] BLOOD UREA NITROGEN 2021-05-23 08:00:00 [facility] ELECTROLYTE PANEL 2021-05-23 08:00:00 Sosa, Donell [facility] SERUM CREATININE 2021-05-23 08:00:00 Donell Sosa [facility] .GLOMERULAR FILTRATION 2021-05-23 08:00:00 Donell [facility] RATE [facility] CALCIUM LEVEL TOTAL 2021-05-23 08:00:00 Donell Sosa [facility] CT CHEST PULMONARY 2021-05-23 06:00:00 [facility] CONTRAST [facility] CT ABDOMEN PELVIS W 2021-05-23 06:00:00 Donell Sosa [facility] CONTRAST [facility] XR ABDOMEN 2 VW AP W 2021-05-23 00:24:09 Donell Sosa [facility] UPRIGHT AND OR DECUBITUS [facility] TROPONIN T 2021-05-22 23:42:00 Donell Sosa [place] [facility] XR CHEST 1 VW 2021-05-22 21:05:54 Latoya Ho [facility] RESPIRATORY VIRAL PANEL + 2021-05-22 19:53:00 Bianca Ho [facility] COVID-19, NASOPHARYNGEAL [facility] COMPLETE BLOOD COUNT W/ 2021-05-22 19:53:00 Latoya Ho [facility] DIFFERENTIAL [facility] COMPREHENSIVE METABOLIC 2021-05-22 19:53:00 Latoya Ho [facility] PANEL [facility] MAGNESIUM LEVEL 2021-05-22 19:53:00 Latoya Ho [facility] PHOSPHORUS LEVEL 2021-05-22 19:53:00 Latoya Ho [facility] CARDIAC PANEL 2021-05-22 19:53:00 Latoya Ho [facility] NT PRO BNP 2021-05-22 19:53:00 Latoya Ho [facility] PROTHROMBIN TIME 2021-05-22 19:53:00 Latoya Ho [facility] APTT 2021-05-22 19:53:00 Latoya Ho [facility] D DIMER 2021-05-22 19:53:00 Latoya Ho [facility] Results CBC 2021-05-22 19:53:00 Latoya Ho [facility] MANUAL DIFFERENTIAL 2021-05-22 19:53:00 Latoya Ho [facility] GLUCOSE LEVEL 2021-05-22 19:53:00 Latoya Ho [facility] BLOOD UREA NITROGEN 2021-05-22 19:53:00 Latoya Ho [facility] ELECTROLYTE PANEL 2021-05-22 19:53:00 Latoya Ho [facility] SERUM CREATININE 2021-05-22 19:53:00 Latoya Ho [facility] .GLOMERULAR FILTRATION 2021-05-22 19:53:00 Latoya Ho [facility] CALCIUM LEVEL TOTAL 2021-05-22 19:53:00 Latoya Ho [facility] ALBUMIN LEVEL 2021-05-22 19:53:00 Latoya Ho [facility] ALKALINE PHOSPHATASE 2021-05-22 19:53:00 [facility] ALANINE AMINOTRANSFERASE 2021-05-22 19:53:00 Lea Ho [facility] ASPARTATE AMINOTRANSFERASE 2021-05-22 19:53:00 Lizeth Ho [facility] TOTAL PROTEIN 2021-05-22 19:53:00 Latoya Ho [facility] FRACTIONATED BILIRUBIN 2021-05-22 19:53:00 Latoya Ho [facility] T [facility] POC TROPONIN I 2021-05-22 19:49:00 Nida Shaffer [facility] EKG, 12-LEAD (PORTABLE) 2021-05-22 00:00:00 [facility] PROVID[facility] RECORDS 2019-10-04 05:01:00 Doctor Unassigned, [facility] [place] [facility] EXTERNAL PROVIDER RECORDS 2019-10-03 05:01:00 Doctor Unassigned, [facility] Name Medical Branch EXTERNAL PROVIDER RECORDS 2019-09-28 05:01:00 Doctor Unassigned, [facility] [place] [address] SURGICAL PATHOLOGY EXAM 2019-09-14 15:52:00 Pako Lopez [facility] 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 CLINIC ULTRASOUND 2019-09-14 05:01:00 Doctor Unajayro, [facility] Name [address] PROSTATIC SPECIFIC ANTIGEN 2019-09-03 21:05:00 Pako Lopez [facility] URINE CULTURE 2019-09-03 21:05:00 Pako Lopez [place] [facility] DISCLOSURE AND CONSENT, Doctor Unasschidi [facility]ICAL AND SURGICAL [place] [facility] PROCEDURES Plan of Care Planned Activity Planned Date Details Comments Source Future Scheduled 2021-12-22 COVID-19 Vaccination [facility] [place] Test 14:15:34 (2 - Kendra risk Andsusan n Cancer series) [code = Center COVID-19 Vaccination (2 - Kendra risk series)] Future Scheduled 2021-12-02 COVID-19 Vaccination [facility] [place] Test 08:32:38 (2 - Kendra risk Anderslila n Cancer series) [code = Center COVID-19 Vaccination (2 - Kendra risk series)] Future Scheduled 2021-11-19 COVID-19 Vaccination [facility] [place] Test 10:24:45 (2 - Kendra risk Anderslila n Cancer series) [code = Center COVID-19 Vaccination (2 - Kendra risk series)] Future Scheduled 2021-11-02 COVID-19 Vaccination [facility] [place] Test 10:05:40 (2 - Kendra risk Anderso n Cancer series) [code = Center COVID-19 Vaccination (2 - Kendra risk series)] Future Scheduled 2021-11-02 COVID-19 Vaccination [facility] [place] Test 10:05:40 (2 - Kendra risk Andsusan n Cancer series) [code = Center COVID-19 Vaccination (2 - Kendra risk series)] Goal Plan of Care Note [code = 52832-5] Goal Plan of Care Note [code = 75657-4] Goal Plan of Care Note [code = 24529-9] Goal Plan of Care Note [code = 14922-4] Goal Plan of Care Note [code = 60393-3] Goal Plan of Care Note [code = 41649-9] Goal Plan of Care Note [code = 69181-7] Goal Plan of Care Note [code = 39702-2] Goal Plan of Care Note [code = 72698-1] Goal Plan of Care Note [code = 03776-3] Goal Plan of Care Note [code = 96016-6] Goal Plan of Care Note [code = 80345-1] Goal Plan of Care Note [code = 29523-5] Goal Plan of Care Note [code = 78661-0] Goal Plan of Care Note [code = 65442-9] Goal Plan of Care Note [code = 62160-7] Goal Plan of Care Note [code = 17794-1] Goal Plan of Care Note [code = 58290-2] Goal Plan of Care Note [code = 58356-4] Goal Plan of Care Note [code = 24773-6] Goal Plan of Care Note [code = 51333-2] Goal Plan of Care Note [code = 43852-4] Encounters Start End Encounter Admission Attending Care Care Encounter Source Date/Time Date/Time Type Type Clinicians Facility Department ID 2021-12-11 2021-12-11 Outpatient YAS SORENSON [id number] Sirena Uriarte 08:53:23 08:53:23 0930 Riley Torres 2021-12-11 2021-12-11 Outpatient [id number] 00:00:00 00:00:00 Visit [id number] 2021-12-02 Shawn Brandon, 1.2.840.1 [id number] Univers 00:00:00 00:00:00 Saleemah [id number] ity of 3.412.2.7 [place] .3.520495 MD Rhoades8 [facility] 2021-12-02 2021-12-02 Shawn Brandon, 1.2.840.1 [id number] Univers 00:00:00 00:00:00 Saleemah [id number] ity of 3.412.2.7 [place] .3.277623 MD Rhoades8 [facility] 2021-11-19 2021-11-19 Shawn Palacios 1.2.840.1 [id number] Univers 00:00:00 00:00:00 Kye [id number] ity of 3.412.2.7 [place] .3.768082 MD Raza [facility] 2021-11-19 2021-11-19 Shawn Palacios 1.2.840.1 [id number] Univers 00:00:00 00:00:00 Kye [id number] ity of 3.412.2.7 [place] .3.007898 MD Raza [facility] 2021-11-10 2021-11-10 Outpatient [id number] 00:00:00 00:00:00 Visit [id number] 2021-11-02 2021-11-02 Shawn Palacios 1.2.840.1 [id number] Univers 00:00:00 00:00:00 Kye 17421.1.1 ity of 3.412.2.7 [place] .3.703722 MD Raza [facility] 2021-11-02 2021-11-02 Shawn Palacios 1.2.840.1 [id number] Univers 00:00:00 00:00:00 Kye 80030.1.1 ity of 3.412.2.7 [place] .3.219624 MD Rhoades8 [facility] 2021-10-05 2021-10-05 Keenan Jones, 1.2.840.1 [id number] Univers 00:00:00 00:00:00 Only Ashley Shankar 33943.1.1 it y of 3.412.2.7 [place] .3.394975 MD Rhoades8 [facility] 2021-10-05 2021-10-05 Keenan Jones, 1.2.840.1 [id number] Univers 00:00:00 00:00:00 Only Ashley Shankar 47291.1.1 it y of 3.412.2.7 [place] .3.162931 MD Rhoades8 [facility] 2021-09-23 2021-09-23 Shawn Palacios, 1.2.840.1 [id number] Univers 00:00:00 00:00:00 Kye 30989.1.1 ity of 3.412.2.7 [place] .3.678254 MD Rhoades8 [facility] 2021-09-23 2021-09-23 Shawn Jones, 1.2.840.1 [id number] Univers 00:00:00 00:00:00 Ashley Shankar 03529.1.1 it y of 3.412.2.7 [place] .3.828970 MD Rhoades8 [facility] 2021-09-23 2021-09-23 Shawn Palacios, 1.2.840.1 [id number] Univers 00:00:00 00:00:00 Kye 54272.1.1 ity of 3.412.2.7 [place] .3Jf983617 MD Rhoades8 [facility] 2021-09-23 2021-09-23 Shawn Jones, 1.2.840.1 [id number] Univers 00:00:00 00:00:00 Ashley Shankar 55461.1.1 it y of 3.412.2.7 [place] .3.675370 .8 [facility] 2021-09-21 2021-09-21 Refill Philip, 1.2.840.1 [id number] Univers 00:00:00 00:00:00 Kye 58820.1.1 ity of 3.412.2.7 [place] .3.872573 .8 [facility] 2021-09-21 2021-09-21 Refill Philip, 1.2.840.1 [id number] Univers 00:00:00 00:00:00 Kye 68466.1.1 ity of 3.412.2.7 [place] .3.451248 .8 [facility] 2021-05-22 2021-05-26 [facility] 1.2.840.1 [id number] Univers 13:28:00 17:49:00 Encounter Zoey Cummins 76885.1.1 ity of Srinivas Nguyen 3.412.2.7 [place] Almas Clements .3.489289 Kye Elizondo .8 [facility] 2021-05-22 2021-05-26 [facility] 1.2.840.1 [id number] Univers 13:28:00 17:49:00 Encounter Zoey Cummins 48021.1.1 ity of Srinivas Nguyen 3.412.2.7 [place] Almas Clements .3.901109 Kye Elizondo .8 And [facility] 2021-05-25 2021-05-25 Inpatient GILMA HOANG MDA [facility] [id number] 14:52:01 17:26:46 OMA santacruz 2021-05-22 2021-05-22 Travel 1.2.840.1 1.2.767.058 [id number] Univers 00:00:00 00:00:00 36486.1.1 350.1.13.41 ity of 3.412.2.7 2.[place]7.3.698 [place] .3.659994 084.8 MD Rhoades8 [facility] 2021-05-22 2021-05-22 Travel 1.2.840.1 1.2.880.167 [id number] Univers 00:00:00 00:00:00 99062.1.1 350.1.13.41 ity of 3.412.2.7 2.[place].7.3.698 [place] .3.785728 084.8 MD Raza [facility] 2021-05-17 2021-05-17 Shawn Jones, 1.2.840.1 [id number] [id number] Univers 00:00:00 00:00:00 Renju 13508.1.1 ity of 3.412.2.7 [place] .3.600446 MD Raza [facility] 2021-05-17 2021-05-17 Shawn Jones, 1.2.840.1 [id number] Univers 00:00:00 00:00:00 Renju 47751.1.1 ity of 3.412.2.7 [place] .3.771018 MD Raza [facility] 2021-04-29 2021-04-29 Orders Hoang, 1.2.840.1 [id number] Univers 00:00:00 00:00:00 Only Oma 53503.1.1 ity of 3.412.2.7 [place] .3.238124 MD Raza [facility] 2021-04-29 2021-04-29 Telephone Crabshannon, 1.2.840.1 [id number] Univers 00:00:00 00:00:00 Serena 14739.1.1 ity of 3.412.2.7 [place] .3.619213 MD Raza [facility] 2021-04-29 2021-04-29 Orders Denny, 1.2.840.1 [id number] Univers 00:00:00 00:00:00 Only Oma 78666.1.1 ity of 3.412.2.7 [place] .3.049316 MD Rhoades8 [facility] 2021-04-29 2021-04-29 Vianey Stuart, 1.2.840.1 [id number] Univers 00:00:00 00:00:00 Serena 30920.1.1 ity of 3.412.2.7 [place] .3.536154 MD Rhoades8 [facility] 2021-03-20 2021-03-20 Orders Zachary, 1.2.840.1 [id number] Univers 00:00:00 00:00:00 Only Maeadeline 05647.1.1 i ty of M 3.412.2.7 [place] .3.069161 MD Raza [facility] 2021-03-20 2021-03-20 Documentat Zachary, 1.2.840.1 [id number] Univers 00:00:00 00:00:00 ion Maeadeline 90467.1.1 i ty of M 3.412.2.7 [place] .3.103911 MD Rhoades8 [facility] 2021-03-20 2021-03-20 Orders Zachary, 1.2.840.1 [id number] Univers 00:00:00 00:00:00 Only Maeadeline 94124.1.1 i ty of M 3.412.2.7 [place] .3.033463 MD Raza [facility] 2021-03-20 2021-03-20 Documentat Zachary, 1.2.840.1 [id number] 1 [id number] Univers 00:00:00 00:00:00 ion Maeadeline 16732.1.1 i ty of M 3.412.2.7 [place] .3.192089 MD Raza [facility] 2021-01-12 2021-01-12 Shawn Stuart, 1.2.840.1 [id number] Univers 00:00:00 00:00:00 Serena 42061.1.1 ity of 3.412.2.7 [place] .3.555114 .8 [facility] 2021-01-12 2021-01-12 Keenan Jesu, 1.2.840.1 [id number] Univers 00:00:00 00:00:00 Only Kait 78526.1.1 ity of 3.412.2.7 [place] .3.056924 .8 [facility] 2020-11-20 2020-11-20 Refill Florentin, 1.2.840.1 [id number] Univers 00:00:00 00:00:00 Sanjuanita 34857.1.1 ity of 3.412.2.7 [place] .3.121960 MD Rhoades8 [facility] 2020-11-19 2020-11-19 Telephone Otto, 1.2.840.1 [id number] Univers 00:00:00 00:00:00 Hang Rush 32594.1.1 it y of 3.412.2.7 [place] .3.279727 .8 [facility] 2020-11-19 2020-11-19 Nurse Only Otto, 1.2.840.1 [id number] [id number] Univers 00:00:00 00:00:00 Hang Rush 47381.1.1 it y of 3.412.2.7 [place] .3.242111 .8 [facility] 2020-10-31 2020-10-31 Outpatient GILMA MORENO MDA MDA [id number] 11:32:23 11:32:23 AUBREY zuñiga n 2020-10-27 2020-10-27 Outpatient GILMA FRIED MDA MDA [id number] 15:24:16 16:01:02 JORJE zhengo n 2020-10-17 2020-10-17 Outpatient GILMA DELGADO MDA MDA [id number] 12:53:40 23:59:00 ERWIN santacruz 2020-10-16 2020-10-16 Outpatient [facility], MDA MDA [id number] MD 12:10:00 23:59:00 ERWIN Nathan o n 2020-10-15 2020-10-15 Outpatient [facility], MDA MDA [id number] MD 12:30:00 23:59:00 ERWIN Nathan o n 2020-10-14 2020-10-14 Outpatient [facility], MDA MDA [id number] MD 11:21:52 23:59:00 ERWIN Nathan o n 2020-10-13 2020-10-13 Outpatient [facility], MDA MDA [id number] MD 12:26:36 23:59:00 ERWIN Nathan o n 2020-10-10 2020-10-10 Outpatient [facility], MDA MDA [id number] MD 11:40:24 23:59:00 ERWIN Nathan o n 2020-10-09 2020-10-09 Outpatient [facility], MDA MDA [id number] MD 11:40:00 23:59:00 ERWIN Nathan o n 2020-10-08 2020-10-08 Outpatient [facility], MDA MDA [id number] MD 12:05:00 23:59:00 ERWIN Nathan o n 2020-10-08 2020-10-08 Outpatient [facility], MDA MDA [id number] MD 10:15:00 12:04:00 DEDE Wagner rso n 2020 2020 Outpatient [facility], MDA MDA [id number] MD 11:55:00 23:59:00 ERWIN Nathan o n 2020 2020 Outpatient [facility], MDA MDA [id number] MD 09:55:27 11:49:27 HAILY And erso n 2020-10-06 2020-10-06 Outpatient [facility], MDA MDA [id number] MD 11:30:00 23:59:00 ERWIN Nathan o n 2020-10-03 2020-10-03 Outpatient [facility], MDA MDA [id number] MD 10:08:21 23:59:00 ERWIN Nathan o n 2020-10-01 2020-10-01 Outpatient [facility], MDA MDA [id number] MD 10:14:10 23:59:00 BOONE-BRANDEN Bernard rso n 2020-09-30 2020-09-30 Outpatient [facility], MDA MDA [id number] MD 11:27:01 23:59:00 ERWIN Nathan o n 2020-09-29 2020-09-29 Outpatient [facility], MDA MDA [id number] MD 11:30:00 23:59:00 ERWIN Nathan o n 2020-09-26 2020-09-26 Outpatient [facility], MDA MDA [id number] MD 12:00:00 23:59:00 ERWIN Nathan o n 2020-09-25 2020-09-25 Outpatient [facility], MDA MDA [id number] MD 11:50:00 23:59:00 ERWIN Nathan o n 2020-09-24 2020-09-24 Outpatient [facility], MDA MDA [id number] MD 11:07:31 23:59:00 ERWIN Nathan o n 2020-09-24 2020-09-24 Outpatient [facility], MDA MDA [id number] MD 10:15:00 11:06:00 BOONE-BRANDEN Bernard rso n 2020-09-24 2020-09-24 Outpatient [facility], MDA MDA [id number] MD 10:00:00 10:14:00 ERWIN Nathan o n 2020-09-24 2020-09-24 Outpatient [facility], MDA MDA [id number] MD 08:56:38 09:14:00 ERWIN Nathan o n 2020-09-23 2020-09-23 Outpatient [facility], MDA MDA [id number] MD 12:01:45 23:59:00 ERWIN Nathan o n 2020-09-22 2020-09-22 Outpatient [facility], MDA MDA [id number] MD 13:23:44 23:59:00 ERWIN Nathan o n 2020-09-22 2020-09-22 Outpatient [facility], MDA MDA [id number] MD 12:16:14 13:22:00 ERWIN Nathan o n 2020-09-19 2020-09-19 Outpatient [facility], MDA MDA [id number] MD 12:00:00 23:59:00 ERWIN Nathan o n 2020-09-18 2020-09-18 Outpatient [facility], MDA MDA [id number] MD 12:00:00 23:59:00 ERWIN Nathan o n 2020-09-17 2020-09-17 Outpatient [facility], MDA MDA [id number] MD 11:01:21 23:59:00 ERWIN Nathan o n 2020-09-17 2020-09-17 Outpatient [facility], MDA MDA [id number] MD 10:15:00 11:00:00 BOONE-BRANDEN Bernard rso n 2020-09-16 2020-09-16 Outpatient [facility], MDA MDA [id number] MD 12:07:04 23:59:00 ERWIN Nathan o n 2020-09-12 2020-09-12 Outpatient [facility], MDA MDA [id number] MD 12:40:00 23:59:00 ERWIN Nathan o n 2020-09-11 2020-09-11 Outpatient [facility], MDA MDA [id number] MD 12:40:00 23:59:00 ERWIN Nathan o n 2020-09-10 2020-09-10 Outpatient [facility], MDA MDA [id number] MD 12:35:00 23:59:00 ERWIN Nathan o n 2020-09-10 2020-09-10 Outpatient [facility], MDA MDA [id number] MD 10:10:54 12:34:00 BOONE-BRANDEN Bernard rso n 2020-09-09 2020-09-09 Outpatient [facility], MDA MDA [id number] MD 12:50:00 23:59:00 ERWIN Nathan o n 2020-09-08 2020-09-08 Outpatient [facility], MDA MDA [id number] MD 12:40:00 23:59:00 ERWIN Nathan o n 2020-09-05 2020-09-05 Outpatient [facility], MDA MDA [id number] MD 12:35:00 23:59:00 ERWIN Nathan o n 2020-09-04 2020-09-04 [facility] MDA MDA [id number] 12:35:00 23:59:00 ERWIN Nathan o n 2020-09-03 2020-09-03 Outpatient [facility], MDA MDA [id number] MD 11:45:56 23:59:00 ERWIN Nathan o n 2020-09-03 2020-09-03 Outpatient EL SOSA, MDA MDA [id number] MD 10:45:00 11:44:00 BOONE-BRANDEN Bernard rso n 2020-09-02 2020-09-02 Outpatient [facility], MDA MDA [id number] 10:15:00 23:59:00 ERWIN Nathan o n 2020-09-01 2020-09-01 Outpatient [facility], MDA MDA [id number] 11:30:00 23:59:00 ERWIN Nathan o n 2020-05-15 2020-05-15 Outpatient [facility] PDPFFWO DSR COH 00:00:00 00:00:00 FER-7746572020-04-06 2020-04-[address] [facility] 1.2.840.114 [id number] 00:00:00 00:00:00 Outreach [facility] 350.1.13.10 [facility] 4.2.7.2.686 Ryanne BARILLAS [id number] Sc dical [address] 2020-02-13 2020-02-13 Outpatient [facility], MDA MDA [id number] 11:48:27 16:35:54 ERWIN Nathan o n 2020-02-13 2020-02-13 Outpatient EL SAMI, MDA MDA [id number] 14:24:42 14:24:42 SANJUANITA Rayaers o n 2020-02-13 2020-02-13 Outpatient EL MDA MDA [id number] 11:45:49 11:46:05 Nathan o n 2020-02-11 2020-02-11 Outpatient [facility], MDA MDA [id number] 10:30:46 10:59:09 ERWIN Nathan o n 2019-12-14 2019-12-14 Telephone Pako Lopez 1.2.840.114 [id number] Univers 00:00:00 00:00:00 [facility] 350.1.13.10 it [place] [phone] [facility] [address] Office Building 2019-11-26 2019-11-26 Telephone Pako Lopez 1.2.840.114 [id number] Univers 00:00:00 00:00:00 [facility] 350.1.13.10 [place] [phone] [facility] [address] Office Building 2019-11-16 2019-11-16 Telephone Pako Lopez 1.2.840.114 [id number] Univers 00:00:00 00:00:00 [facility] 350.1.13.10 [place] [phone] [facility] [address] Office Building 2019-11-14 2019-11-14 Telephone Pako Lopez 1.2.840.114 [id number] Univers 00:00:00 00:00:00 [facility] 350.1.13.10 [place] [phone] [address] Office Building 2019-10-11 2019-10-24 Office Pako Lopez 1.2.840.114 [id number] Univers 13:15:19 09:14:14 Visit [facility] 350.1.13.10 [place] [phone] [address] Office Building 2019-10-24 2019-10-24 Telephone Pako LopezMB 1.2.840.114 [id number] Univers 00:00:00 00:00:00 [facility] 350.1.13.10 [place] [phone] [address] Office Building 2019-10-24 2019-10-24 Patient Thai Silver 1.2.840.114 [id number] Univers 00:00:00 00:00:00 Outreach Jaclyn E Diaz 350.1.13.10 i [place] [phone] [address] 2019-10-24 2019-10-24 Patient Petra Bai 1.2.840.114 [id number] Univers 00:00:00 00:00:00 Outreach E Diaz 350.1.13.10 i ty [place] [phone] [address] 2019-10-24 2019-10-24 Telephone Lopez, [facility] 1.2.840.114 [id number] Univers 00:00:00 00:00:00 [facility] 350.1.13.10 [place] [phone] [address] Office [facility] 2019-10-23 2019-10-23 Telephone Lopez, [facility] 1.2.840.114 [id number] Univers 00:00:00 00:00:00 [facility] 350.1.13.10 [place] [phone] [address] Office [facility] 2019-10-22 2019-10-22 Telephone Lopez, [facility] 1.2.840.114 [id number] Univers 00:00:00 00:00:00 [facility] 350.1.13.10 it [place]2.[place] [phone] [address] Office [facility] 2019-10-19 2019-10-19 Telephone Lopez, [facility] 1.2.840.114 [id number] Univers 00:00:00 00:00:00 [facility] 350.1.13.10 [place] [phone] [address] Office [facility] 2019-10-11 2019-10-11 Outpatient R LOPEZ, [facility] [id number] Univers 13:00:00 13:00:[address] [facility] 2019-10-04 2019-10-04 Telephone Pako Lopez 1.2.840.114 [id number] Univers 00:00:00 00:00:00 Shun RAHAT 350.1.13.10 it y of [facility] 4.2.7.2.686 [place] [phone] [address] 2019-10-04 2019-10-04 Orders Doctor KYE 1.2.840.114 [id number] Univers 00:00:00 00:00:00 Only Unassigned, RAHAT 350.1.13.10 ity of [place] [facility] 4.2.7.2.686 [place] as [phone] [address] 2019-10-03 2019-10-03 Outpatient R JOHN PAKO [facility] [id number] Univers 08:00:00 08:00:[address] [facility] 2019-10-03 2019-10-03 Telephone Jhon [facility] 1.2.840.114 [id number] Univers 00:00:00 00:00:00 un Health 350.1.13.10 it y of [facility] 4.2.7.2.686 [place] [phone] [address] Office Building 2019-10-03 2019-10-03 Orders Doctor KYE 1.2.840.114 [id number] Univers 00:00:00 00:00:00 Only Unassigned, RAHAT 350.1.13.10 ity of [place] [facility] 4.2.7.2.686 [place] as [phone] [address] 2019-09-28 2019-09-28 Orders Doctor KYE 1.2.840.114 [id number] Univers 00:00:00 00:00:00 Only Unassigned, RAHAT 350.1.13.10 ity of [place] [facility] 4.2.7.2.686 [place] as [phone] [address] 2019-09-23 2019-09-23 Refill John [facility] 1.2.840.114 [id number] Univers 00:00:00 00:00:00 [facility] 350.1.13.10 it [place] [phone] [address] Office Building 2019-09-21 2019-09-21 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 1.2.8 40.114 [id number] Univers 12:13:57 12:28:57 Visit Pako Lopez [facility] 350.1.13 .10 ity of [place] [phone] [facility] [address] Office Building 2019-09-21 2019-09-21 Office Lopez, [facility] 1.2.840.114 [id number] Univers 11:04:12 11:34:12 Visit leanna Health 350.1.13.10 it y of [place] 4[place].2.[place] [phone] [address] Office [facility] 2019-09-21 2019-09-21 Outpatient R PAKO LOPEZ [facility] [id number] Univers 10:30:00 10:30:[address] [facility] 2019-09-21 2019-09-21 Telephone Pako Lopez KYE 1.2.840.114 [id number] Univers 00:00:00 00:00:00 Shun RAHAT 350.1.13.10 it y of [facility] 4.2.7.2.686 [place] [id number] [address] 2019-09-21 2019-09-21 Telephone John [facility] 1.2.840.114 [id number] Univers 00:00:00 00:00:00 [facility] 350.1.13.10 it y of [place] [phone] [facility] [address] Office Building 2019-09-18 2019-09-18 Telephone John Pako FISHMAN 1.2.840.114 [id number] Univers 00:00:00 00:00:00 Shun RAHAT 350.1.13.10 it y of [facility] 4.2.7.2.686 [place] [phone] [address] 2019-09-18 2019-09-18 Telephone John Pako FISHMAN 1.2.840.114 [id number] Univers 00:00:00 00:00:00 [facility] RAHAT 350.1.13.10 it y of [facility] 4.2.7.2.686 [place] [phone] [address] 2019-09-14 2019-09-14 Office John [facility] 1.2.840.114 [id number] Univers 09:53:55 10:46:20 Visit [facility] 350.1.13.10 it y of [facility] 4.2.7.2.[place] [phone] [address] Office Building 2019-09-14 2019-09-14 Outpatient R [facility] [id number] Univers 10:00:00 10:00:[address] [facility] 2019-09-14 2019-09-14 Orders Doctor KYE 1.2.840.114 [id number] Univers 00:00:00 00:00:00 Only Unassigned, RAHAT 350.1.13.10 ity of [place] [facility] 4.2.7.2.686 [place] [phone] [address] 2019-09-07 2019-09-07 Outpatient R JOHN [facility] [id number] Univers 08:00:00 08:00:[address] [facility] 2019-09-03 2019-09-06 Office [facility] 1.2.840.114 [id number] Univers 15:04:24 10:34:22 Visit [facility] 350.1.13.10 it y of [facility] 4.2.7.2.[place] [phone] [address] Office Building 2019-09-05 2019-09-05 Patient Doctor KYE 1.2.840.114 [id number] Univers 00:00:00 00:00:00 Secure Msg Unassigned, RAHAT 350.1.13.10 ity of [place] [facility] 4.2.7.2.686 [place] [phone] [address] 2019-09-03 2019-09-03 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 1.2.8 40.114 [id number] Univers 16:05:21 16:20:21 Visit Pako Lopez [facility] 350.1.13 .10 ity of [place] 4.2.7.2.686 [place] [phone] [facility] [address] Office Building 2019-09-03 2019-09-03 Outpatient R PAKO LOPEZ [facility] [id number] Univers 15:00:00 15:00:[address] [facility] Orders Doctor KYE 1.2.840.114 [id number] Univers 00:00:00 00:00:00 Only Unassigned, RAHAT 350.1.13.10 ity of [place] [facility] 4.2.7.2.686 [place] as [phone] [facility] [address] Results Test Description Test Time Test Comments Results Result Comments Source TSH, THIRD GENERATION 2021-11-11 10:24:25 Test Item Value Reference Range Interpretation Comme nts TSH, THIRD GENERATION (test 0.921 UIU/ML 0.400-4.100 UNLESS OTHERWISE INDICATED, code = 2821) ALL TESTING PER FORMED ATCLINICAL PATH [employer] [place] [id number] TECHNOLOGY ENGINEER: Shu AMAYA [id number] [place]. [id number] COMPREHENSIVE METABOLIC [id number] 06:52:03 Test Item Value Reference Range Interpretation Comments GLUCOSE (test code = 99 MG/DL 70-99 2216) BUN (test code = 19 MG/DL 8-23 2207) CREATININE (test 0.80 MG/DL 0.80-1.40 code = 2214) eGFR (2020 CKD-EPI) 89 ML/MIN/1.73 >60 (test code = 35241) CALC BUN/CREAT (test 24 RATIO 6-28 code = 2235) SODIUM (test code = 143 MEQ/L 884-805 1782) POTASSIUM (test code 4.1 MEQ/L 3.5-5.4 = 2228) CHLORIDE (test code 103 MEQ/L 95-107 = 2215) CARBON DIOXIDE (test 26 MEQ/L - code = 2206) CALCIUM (test code = 9.3 MG/DL 8.5-10.5 2208) PROTEIN, TOTAL (test 6.7 G/DL 6.1-8.3 code = 2229) ALBUMIN (test code = 4.3 G/DL 3.5-5.2 2200) CALC GLOBULIN (test 2.4 G/DL 1.9-3.7 code = 2240) CALC A/G RATIO (test 1.8 RATIO 1.0-2.6 code = 2234) BILIRUBIN, TOTAL 0.6 MG/DL See_Comment [Automated message] (test code = 2207) The syste m which generated this result transmit esteban reference range : <=1.2. The refe rence range was not u sed to interpret th is result as normal/abnormal . ALKALINE PHOSPHATASE 110 U/L 40-125 (test code = 220) AST (test code = 16 U/L 9-50 2217) ALT (test code = 14 U/L 5-50 2218) LIPID [id number] 06:52:03 Test Item Value Reference Range Interpretation Comments CHOLESTEROL (test 120 MG/DL <200 code = 2210) TRIGLYCERIDES (test 67 MG/DL <150 code = 2232) HDL CHOLESTEROL (test 63 MG/DL >39 code = 2220) CALC LDL CHOL (test 43 MG/DL <100 NOTE: C ALCULATED LDL code = 2237) IS BASED ON CORKY-PATEL METHOD WHICHINCLUDES ADJUSTABLE TRIGLYCERIDE:VL DL CHOLESTEROL RAT IO.THIS FACTOR VARIES B Y MEASURED TRIGLY CERIDE AND NON-HDLCHOL ESTEROL CONCENTRATIONS WITH INCREASED CALCU LATED LDL SEENIN HIGH ER TRIGLYCERIDE OR LOWER NON-HDL SPECIME NS. FOR MOREINFORMATION , SEE CLIENT ANNOUNCE MENT AT [email or web address] LDL/HDL 0.68 RATIO <3.55 (test code = 2238) HEMOGLOBIN [id number] 04:00:23 Test Item Value Reference Range Interpretation Comments HEMOGLOBIN A1c (test code = 77251) 5.6 % 4.2-5.6 CBC W/AUTO DIFF WITH [id number] 02:24:38 Test Item Value Reference Range Interpretation Comments WBC (test code = 5.0 K/UL 3.5-11.0 1001) RBC (test code = 4.27 M/UL 4.50-6.10 L 1002) HEMOGLOBIN (test code 12.5 G/DL 13.5-17.0 L = 1003) HEMATOCRIT (test code 39.0 % 40.0-51.0 L = 1004) MCV (test code = 91.3 fL 80.0-99.0 1005) MCH (test code = 29.3 PG 25.0-33.0 1006) MCHC (test code = 32.1 G/DL 31.0-36.0 1007) RDW (test code = 13.0 % 11.5-15.0 1038) NEUTROPHILS (test 77.4 % code = 1008) LYMPHOCYTES (test 9.9 % code = 1010) MONOCYTES (test code 10.5 % = 1011) EOSINOPHILS (test 1.2 % code = 1012) BASOPHILS (test code 0.6 % = 1013) IMMATURE GRANULOCYTES 0.4 % (test code = 1036) NUCLEATED RBCS (test 0.0 /100 WBC'S See_Comment [Aut omated code = 1065) message] The sy stem which generated this result transmitted reference range : 0.0. The refere nce range was not u sed to interpret th is result as normal/abnormal . PLATELET COUNT (test 157 K/UL 130-400 code = 1015) ABSOLUTE NEUTROPHILS 3.85 K/UL 1.50-7.50 (test code = 1066) ABSOLUTE LYMPHOCYTES 0.49 K/UL 1.00-4.00 L (test code = 1067) ABSOLUTE MONOCYTES 0.52 K/UL 0.20-1.00 (test code = 1068) ABSOLUTE EOSINOPHILS 0.06 K/UL 0.00-0.50 (test code = 1040) ABSOLUTE BASOPHILS 0.03 K/UL 0.00-0.20 (test code = 1069) ABS IMMATURE 0.02 K/UL 0.00-0.10 GRANULOCYTES (test code = 1020) ABS NUCLEATED RBCS 0.00 K/UL 0.00-0.11 (test code = 22864) HEMOGLOBIN [id number] 00:00:00 Test Item Value Reference Range Interpretation Comments HEMOGLOBIN A1c (test code = 25910) 5.6 % HEMOGLOBIN [id number] 00:00:00 Test Item Value Reference Range Interpretation Comments HEMOGLOBIN A1c (test code = 80483) 5.6 % COMPREHENSIVE METABOLIC [id number] 00:00:00 Test Item Value Reference Range Interpretation Comments GLUCOSE (test code = 2217) 99 MG/DL BUN (test code = 2208) 19 MG/DL CREATININE (test code = 2214) 0.80 MG/DL eGFR (2020 CKD-EPI) (test code 89 ML/MIN/1.73 = 02031) CALC BUN/CREAT (test code = 24 RATIO 2235) SODIUM (test code = 2231) 143 MEQ/L POTASSIUM (test code = 2228) 4.1 MEQ/L CHLORIDE (test code = 2215) 103 MEQ/L CARBON DIOXIDE (test code = 26 MEQ/L 2205) CALCIUM (test code = 2209) 9.3 MG/DL PROTEIN, TOTAL (test code = 6.7 G/DL 2228) ALBUMIN (test code = 2201) 4.3 G/DL CALC GLOBULIN (test code = 2.4 G/DL 2240) CALC A/G RATIO (test code = 1.8 RATIO 2234) BILIRUBIN, TOTAL (test code = 0.6 MG/DL 2206) ALKALINE PHOSPHATASE (test 110 U/L code = 2204) AST (test code = 2218) 16 U/L ALT (test code = 2219) 14 U/L COMPREHENSIVE METABOLIC [id number] 00:00:00 Test Item Value Reference Range Interpretation Comments GLUCOSE (test code = 2217) 99 MG/DL BUN (test code = 2208) 19 MG/DL CREATININE (test code = 2214) 0.80 MG/DL eGFR (2020 CKD-EPI) (test code 89 ML/MIN/1.73 = 84399) CALC BUN/CREAT (test code = 24 RATIO 2235) SODIUM (test code = 2231) 143 MEQ/L POTASSIUM (test code = 2228) 4.1 MEQ/L CHLORIDE (test code = 2215) 103 MEQ/L CARBON DIOXIDE (test code = 26 MEQ/L 2205) CALCIUM (test code = 2209) 9.3 MG/DL PROTEIN, TOTAL (test code = 6.7 G/DL 2228) ALBUMIN (test code = 2201) 4.3 G/DL CALC GLOBULIN (test code = 2.4 G/DL 2240) CALC A/G RATIO (test code = 1.8 RATIO 2234) BILIRUBIN, TOTAL (test code = 0.6 MG/DL 2206) ALKALINE PHOSPHATASE (test 110 U/L code = 2204) AST (test code = 2218) 16 U/L ALT (test code = 2219) 14 U/L CBC W/AUTO [id number] 00:00:00 Test Item Value Reference Range Interpretation Comments WBC (test code = 1001) 5.0 K/UL RBC (test code = 1002) 4.27 M/UL HEMOGLOBIN (test code = 1003) 12.5 G/DL HEMATOCRIT (test code = 1004) 39.0 % MCV (test code = 1005) 91.3 fL MCH (test code = 1006) 29.3 PG MCHC (test code = 1007) 32.1 G/DL RDW (test code = 1038) 13.0 % NEUTROPHILS (test code = 1008) 77.4 % LYMPHOCYTES (test code = 1010) 9.9 % MONOCYTES (test code = 1011) 10.5 % EOSINOPHILS (test code = 1012) 1.2 % BASOPHILS (test code = 1013) 0.6 % IMMATURE GRANULOCYTES (test 0.4 % code = 1036) NUCLEATED RBCS (test code = 0.0 /100WBC'S 1065) PLATELET COUNT (test code = 157 K/UL 1015) ABSOLUTE NEUTROPHILS (test code 3.85 K/UL = 1066) ABSOLUTE LYMPHOCYTES (test code 0.49 K/UL = 1067) ABSOLUTE MONOCYTES (test code = 0.52 K/UL 1068) ABSOLUTE EOSINOPHILS (test code 0.06 K/UL = 1040) ABSOLUTE BASOPHILS (test code = 0.03 K/UL 1069) ABS IMMATURE GRANULOCYTES (test 0.02 K/UL code = 1020) ABS NUCLEATED RBCS (test code = 0.00 K/UL 44433) CBC W/AUTO [id number] 00:00:00 Test Item Value Reference Range Interpretation Comments WBC (test code = 1001) 5.0 K/UL RBC (test code = 1002) 4.27 M/UL HEMOGLOBIN (test code = 1003) 12.5 G/DL HEMATOCRIT (test code = 1004) 39.0 % MCV (test code = 1005) 91.3 fL MCH (test code = 1006) 29.3 PG MCHC (test code = 1007) 32.1 G/DL RDW (test code = 1038) 13.0 % NEUTROPHILS (test code = 1008) 77.4 % LYMPHOCYTES (test code = 1010) 9.9 % MONOCYTES (test code = 1011) 10.5 % EOSINOPHILS (test code = 1012) 1.2 % BASOPHILS (test code = 1013) 0.6 % IMMATURE GRANULOCYTES (test 0.4 % code = 1036) NUCLEATED RBCS (test code = 0.0 /100WBC'S 1065) PLATELET COUNT (test code = 157 K/UL 1015) ABSOLUTE NEUTROPHILS (test code 3.85 K/UL = 1066) ABSOLUTE LYMPHOCYTES (test code 0.49 K/UL = 1067) ABSOLUTE MONOCYTES (test code = 0.52 K/UL 1068) ABSOLUTE EOSINOPHILS (test code 0.06 K/UL = 1040) ABSOLUTE BASOPHILS (test code = 0.03 K/UL 1069) ABS IMMATURE GRANULOCYTES (test 0.02 K/UL code = 1020) ABS NUCLEATED RBCS (test code = 0.00 K/UL 37337) CBC W/AUTO [id number] 00:00:00 Test Item Value Reference Range Interpretation Comments WBC (test code = 1001) 5.0 K/UL RBC (test code = 1002) 4.27 M/UL HEMOGLOBIN (test code = 1003) 12.5 G/DL HEMATOCRIT (test code = 1004) 39.0 % MCV (test code = 1005) 91.3 fL MCH (test code = 1006) 29.3 PG MCHC (test code = 1007) 32.1 G/DL RDW (test code = 1038) 13.0 % NEUTROPHILS (test code = 1008) 77.4 % LYMPHOCYTES (test code = 1010) 9.9 % MONOCYTES (test code = 1011) 10.5 % EOSINOPHILS (test code = 1012) 1.2 % BASOPHILS (test code = 1013) 0.6 % IMMATURE GRANULOCYTES (test 0.4 % code = 1036) NUCLEATED RBCS (test code = 0.0 /100WBC'S 1065) PLATELET COUNT (test code = 157 K/UL 1015) ABSOLUTE NEUTROPHILS (test code 3.85 K/UL = 1066) ABSOLUTE LYMPHOCYTES (test code 0.49 K/UL = 1067) ABSOLUTE MONOCYTES (test code = 0.52 K/UL 1068) ABSOLUTE EOSINOPHILS (test code 0.06 K/UL = 1040) ABSOLUTE BASOPHILS (test code = 0.03 K/UL 1069) ABS IMMATURE GRANULOCYTES (test 0.02 K/UL code = 1020) ABS NUCLEATED RBCS (test code = 0.00 K/UL 29157) LIPID [id number] 00:00:00 Test Item Value Reference Range Interpretation Comments CHOLESTEROL (test code = 2210) 120 MG/DL TRIGLYCERIDES (test code = 2232) 67 MG/DL HDL CHOLESTEROL (test code = 2220) 63 MG/DL CALC LDL CHOL (test code = 2237) 43 MG/DL RISK RATIO LDL/HDL (test code = 0.68 RATIO 2238) LIPID [id number] 00:00:00 Test Item Value Reference Range Interpretation Comments CHOLESTEROL (test code = 2210) 120 MG/DL TRIGLYCERIDES (test code = 2232) 67 MG/DL HDL CHOLESTEROL (test code = 2220) 63 MG/DL CALC LDL CHOL (test code = 2237) 43 MG/DL RISK RATIO LDL/HDL (test code = 0.68 RATIO 2238) TSH, THIRD [id number] 00:00:00 Test Item Value Reference Range Interpretation Comments TSH, THIRD GENERATION (test code 0.921 UIU/ML = 2821) TSH, THIRD [id number] 00:00:00 Test Item Value Reference Range Interpretation Comments TSH, THIRD GENERATION (test code 0.921 UIU/ML = 2821) TSH, THIRD [id number] 00:00:00 Test Item Value Reference Range Interpretation Comments TSH, THIRD GENERATION (test code 0.921 UIU/ML = 2821) HEMOGLOBIN [id number] 00:00:00 Test Item Value Reference Range Interpretation Comments HEMOGLOBIN A1c (test code = 04567) 5.6 % HEMOGLOBIN [id number] 00:00:00 Test Item Value Reference Range Interpretation Comments HEMOGLOBIN A1c (test code = 22635) 5.6 % HEMOGLOBIN [id number] 00:00:00 Test Item Value Reference Range Interpretation Comments HEMOGLOBIN A1c (test code = 47914) 5.6 % COMPREHENSIVE METABOLIC [id number] 00:00:00 Test Item Value Reference Range Interpretation Comments GLUCOSE (test code = 2217) 99 MG/DL BUN (test code = 2208) 19 MG/DL CREATININE (test code = 2214) 0.80 MG/DL eGFR (2020 CKD-EPI) (test code 89 ML/MIN/1.73 = 58031) CALC BUN/CREAT (test code = 24 RATIO 2235) SODIUM (test code = 2231) 143 MEQ/L POTASSIUM (test code = 2228) 4.1 MEQ/L CHLORIDE (test code = 2215) 103 MEQ/L CARBON DIOXIDE (test code = 26 MEQ/L 2206) CALCIUM (test code = 2209) 9.3 MG/DL PROTEIN, TOTAL (test code = 6.7 G/DL 222) ALBUMIN (test code = 2201) 4.3 G/DL CALC GLOBULIN (test code = 2.4 G/DL 2240) CALC A/G RATIO (test code = 1.8 RATIO 2234) BILIRUBIN, TOTAL (test code = 0.6 MG/DL 2206) ALKALINE PHOSPHATASE (test 110 U/L code = 220) AST (test code = 2218) 16 U/L ALT (test code = 2219) 14 U/L COMPREHENSIVE METABOLIC [id number] 00:00:00 Test Item Value Reference Range Interpretation Comments GLUCOSE (test code = 2217) 99 MG/DL BUN (test code = 2208) 19 MG/DL CREATININE (test code = 2214) 0.80 MG/DL eGFR (2020 CKD-EPI) (test code 89 ML/MIN/1.73 = 28822) CALC BUN/CREAT (test code = 24 RATIO 2235) SODIUM (test code = 2231) 143 MEQ/L POTASSIUM (test code = 2228) 4.1 MEQ/L CHLORIDE (test code = 2215) 103 MEQ/L CARBON DIOXIDE (test code = 26 MEQ/L 2205) CALCIUM (test code = 2209) 9.3 MG/DL PROTEIN, TOTAL (test code = 6.7 G/DL 9) ALBUMIN (test code = 2201) 4.3 G/DL CALC GLOBULIN (test code = 2.4 G/DL 2240) CALC A/G RATIO (test code = 1.8 RATIO 2234) BILIRUBIN, TOTAL (test code = 0.6 MG/DL 2206) ALKALINE PHOSPHATASE (test 110 U/L code = 2204) AST (test code = 2218) 16 U/L ALT (test code = 2219) 14 U/L CBC W/AUTO [id number] 00:00:00 Test Item Value Reference Range Interpretation Comments WBC (test code = 1001) 5.0 K/UL RBC (test code = 1002) 4.27 M/UL HEMOGLOBIN (test code = 1003) 12.5 G/DL HEMATOCRIT (test code = 1004) 39.0 % MCV (test code = 1005) 91.3 fL MCH (test code = 1006) 29.3 PG MCHC (test code = 1007) 32.1 G/DL RDW (test code = 1038) 13.0 % NEUTROPHILS (test code = 1008) 77.4 % LYMPHOCYTES (test code = 1010) 9.9 % MONOCYTES (test code = 1011) 10.5 % EOSINOPHILS (test code = 1012) 1.2 % BASOPHILS (test code = 1013) 0.6 % IMMATURE GRANULOCYTES (test 0.4 % code = 1036) NUCLEATED RBCS (test code = 0.0 /100WBC'S 1065) PLATELET COUNT (test code = 157 K/UL 1015) ABSOLUTE NEUTROPHILS (test code 3.85 K/UL = 1066) ABSOLUTE LYMPHOCYTES (test code 0.49 K/UL = 1067) ABSOLUTE MONOCYTES (test code = 0.52 K/UL 1068) ABSOLUTE EOSINOPHILS (test code 0.06 K/UL = 1040) ABSOLUTE BASOPHILS (test code = 0.03 K/UL 1069) ABS IMMATURE GRANULOCYTES (test 0.02 K/UL code = 1020) ABS NUCLEATED RBCS (test code = 0.00 K/UL 34650) CBC W/AUTO [id number] 00:00:00 Test Item Value Reference Range Interpretation Comments WBC (test code = 1001) 5.0 K/UL RBC (test code = 1002) 4.27 M/UL HEMOGLOBIN (test code = 1003) 12.5 G/DL HEMATOCRIT (test code = 1004) 39.0 % MCV (test code = 1005) 91.3 fL MCH (test code = 1006) 29.3 PG MCHC (test code = 1007) 32.1 G/DL RDW (test code = 1038) 13.0 % NEUTROPHILS (test code = 1008) 77.4 % LYMPHOCYTES (test code = 1010) 9.9 % MONOCYTES (test code = 1011) 10.5 % EOSINOPHILS (test code = 1012) 1.2 % BASOPHILS (test code = 1013) 0.6 % IMMATURE GRANULOCYTES (test 0.4 % code = 1036) NUCLEATED RBCS (test code = 0.0 /100WBC'S 1065) PLATELET COUNT (test code = 157 K/UL 1015) ABSOLUTE NEUTROPHILS (test code 3.85 K/UL = 1066) ABSOLUTE LYMPHOCYTES (test code 0.49 K/UL = 1067) ABSOLUTE MONOCYTES (test code = 0.52 K/UL 1068) ABSOLUTE EOSINOPHILS (test code 0.06 K/UL = 1040) ABSOLUTE BASOPHILS (test code = 0.03 K/UL 1069) ABS IMMATURE GRANULOCYTES (test 0.02 K/UL code = 1020) ABS NUCLEATED RBCS (test code = 0.00 K/UL 35520) CBC W/AUTO [id number] 00:00:00 Test Item Value Reference Range Interpretation Comments WBC (test code = 1001) 5.0 K/UL RBC (test code = 1002) 4.27 M/UL HEMOGLOBIN (test code = 1003) 12.5 G/DL HEMATOCRIT (test code = 1004) 39.0 % MCV (test code = 1005) 91.3 fL MCH (test code = 1006) 29.3 PG MCHC (test code = 1007) 32.1 G/DL RDW (test code = 1038) 13.0 % NEUTROPHILS (test code = 1008) 77.4 % LYMPHOCYTES (test code = 1010) 9.9 % MONOCYTES (test code = 1011) 10.5 % EOSINOPHILS (test code = 1012) 1.2 % BASOPHILS (test code = 1013) 0.6 % IMMATURE GRANULOCYTES (test 0.4 % code = 1036) NUCLEATED RBCS (test code = 0.0 /100WBC'S 1065) PLATELET COUNT (test code = 157 K/UL 1015) ABSOLUTE NEUTROPHILS (test code 3.85 K/UL = 1066) ABSOLUTE LYMPHOCYTES (test code 0.49 K/UL = 1067) ABSOLUTE MONOCYTES (test code = 0.52 K/UL 1068) ABSOLUTE EOSINOPHILS (test code 0.06 K/UL = 1040) ABSOLUTE BASOPHILS (test code = 0.03 K/UL 1069) ABS IMMATURE GRANULOCYTES (test 0.02 K/UL code = 1020) ABS NUCLEATED RBCS (test code = 0.00 K/UL 78010) LIPID [id number] 00:00:00 Test Item Value Reference Range Interpretation Comments CHOLESTEROL (test code = 2210) 120 MG/DL TRIGLYCERIDES (test code = 2232) 67 MG/DL HDL CHOLESTEROL (test code = 2220) 63 MG/DL CALC LDL CHOL (test code = 2237) 43 MG/DL RISK RATIO LDL/HDL (test code = 0.68 RATIO 2238) LIPID [id number] 00:00:00 Test Item Value Reference Range Interpretation Comments CHOLESTEROL (test code = 2210) 120 MG/DL TRIGLYCERIDES (test code = 2232) 67 MG/DL HDL CHOLESTEROL (test code = 2220) 63 MG/DL CALC LDL CHOL (test code = 2237) 43 MG/DL RISK RATIO LDL/HDL (test code = 0.68 RATIO 2238) TSH, THIRD [id number] 00:00:00 Test Item Value Reference Range Interpretation Comments TSH, THIRD GENERATION (test code 0.921 UIU/ML = 2821) TSH, THIRD [id number] 00:00:00 Test Item Value Reference Range Interpretation Comments TSH, THIRD GENERATION (test code 0.921 UIU/ML = 2821) TSH, THIRD [id number] 00:00:00 Test Item Value Reference Range Interpretation Comments TSH, THIRD GENERATION (test code 0.921 UIU/ML = 2821) HEMOGLOBIN [id number] 00:00:00 Test Item Value Reference Range Interpretation Comments HEMOGLOBIN A1c (test code = 19099) 5.6 % Troponin T (In-House)2021-05-26 09:07:11 Test Item Value Reference Range Interpretation Comments Troponin T (test code = 79 ng/L See_Comment A < 19 ng/L Suggest 55973-6) retest at 3 to 6 hours later to rule o ut myocardial infa rction >= 19 to <=52 n g/L Possible myocar dial injury. Suggest retest at 3 hours. - a change of < 20 ng/L, r etest at 6 hours - a change of >= 20 ng/L, suggestive of myocardial infa rction > 52 ng/L Sugge stive of myocardial infarction Crit ical value will be r eported when cTnT is > 52 ng/L and only report ed for the first in a series. Hemolyzed speci mens with Hemolysis Index >100 (100 mg/dl or moderate hemoly sis) may cause interferences a nd falsely low res ults. [Automated [employer] age] The system [employer] generated this result transmitted ref erence range: <=18. Th e reference range was not used to int erpret this result as normal/abnormal . Lab Interpretation Abnormal (test code = 78088-7) [facility]:07:11 Test Item Value Reference Range Interpretation Comments Troponin T (test code = 79 ng/L See_Comment A < 19 ng/L Suggest 10346-6) retest at 3 to 6 hours later to rule o ut myocardial infa rction >= 19 to <=52 n g/L Possible myocar dial injury. Suggest retest at 3 hours. - a change of < 20 ng/L, r etest at 6 hours - a change of >= 20 ng/L, suggestive of myocardial inf arction > 52 ng/L Sugge stive of myocardial infarction Crit ical value will be r eported when cTnT is > 52 ng/L and only report ed for the first in a series. Hemolyzed speci mens with Hemolysis Index >100 (100 mg/dl or moderate hemoly sis) may cause interferences a nd falsely low res ults. [Automated [employer] age] The system [employer] generated this result transmitted ref erence range: <=18. Th e reference range was not used to int erpret this result as normal/abnormal . Lab Interpretation Abnormal (test code = 93479-3) [facility] 09:07:11 Test Item Value Reference Range Interpretation Comments Troponin T (test code = 79 ng/L See_Comment A < 19 ng/L Suggest 08661-8) retest at 3 to 6 hours later to rule o ut myocardial infa rction >= 19 to <=52 n g/L Possible myocar dial injury. Suggest retest at 3 hours. - a change of < 20 ng/L, retest at 6 teetee rs - a change of >= 20 ng/L, suggestive of myocardial infa rction > 52 ng/L Sugge stive of myocardial infarction Crit ical value will be r eported when cTnT is > 52 ng/L and only report ed for the first in a series. Hemolyzed speci mens with Hemolysis Index >100 (100 mg/dl or moderate hemoly sis) may cause interferences a nd falsely low res ults. [Automated [employer] age] The system [employer] generated this result transmitted ref erence range: <=18. Th e reference range was not used to int erpret this result as normal/abnormal . Lab Interpretation Abnormal (test code = 63374-3) [facility] 09:07:11 Test Item Value Reference Range Interpretation Comments Troponin T (test code = 79 ng/L See_Comment A < 19 ng/L Suggest 31219-1) retest at 3 to 6 hours later to rule o ut myocardial infa rction >= 19 to <=52 n g/L Possible myocar dial injury. Suggest retest at 3 hours. - a change of < 20 ng/L, r etest at 6 hours - a change of >= 20 ng/L, suggestive of myocardial infa rction > 52 ng/L Sugge stive of myocardial infarction Crit ical value will be r eported when cTnT is > 52 ng/L and only report ed for the first in a series. Hemolyzed speci mens with Hemolysis Index >100 (100 mg/dl or moderate hemoly sis) may cause interferences a nd falsely low res ults. [Automated mess age] The system [employer] generated this result transmitted ref erence range: <=18. Th e reference range was not used to int erpret this result as normal/abnormal . Lab Interpretation Abnormal (test code = 20290-1) [facility] 09:07:11 Test Item Value Reference Range Interpretation Comments Troponin T (test code = 79 ng/L See_Comment A < 19 ng/L Suggest 13674-9) retest at 3 to 6 hours later to rule o ut myocardial infa rction >= 19 to <=52 n g/L Possible myocar dial injury. Suggest retest at 3 hours. - a change of < 20 ng/L, r etest at 6 hours - a change of >= 20 ng/L, suggestive of myocardial infa rction > 52 ng/L Sugge stive of myocardial infarction Crit ical value will be r eported when cTnT is > 52 ng/L and only report ed for the first in a series. Hemolyzed speci mens with Hemolysis Index >100 (100 mg/dl or moderate hemoly sis) may cause interferences a nd falsely low res ults. [Automated mess age] The system [employer] generated this result transmitted ref erence range: <=18. Th e reference range was not used to int erpret this result as normal/abnormal . Lab Interpretation Abnormal (test code = 93835-0) [facility] [id number] 11:02:26 Test Item Value Reference Range Interpretation Comments Testoster Tot (test 313 ng/dL 193-740 Referenc e Ranges: code = 2986-8) Male: Age 20 - 49 249 - 836 Age >=50 193 - 740 Female: Age 20 - 49 8 - 48 Age & gt;=50 3 - 41 [facility] [id number] 11:02:26 Test Item Value Reference Range Interpretation Comments Testoster Tot (test 313 ng/dL 193-740 Referenc e Ranges: code = 2986-8) Male: Age 20 - 49 249 - 836 Age >=50 193 - 740 Female: Age 20 - 49 8 - 48 Age & gt;=50 3 - 41 [facility] [id number] 11:02:26 Test Item Value Reference Range Interpretation Comments Testoster Tot (test 313 ng/dL 193-740 Referenc e Ranges: code = 2986-8) Male: Age 20 - 49 249 - 836 Age >=50 193 - 740 Female: Age 20 - 49 8 - 48 Age & gt;=50 3 - 41 [facility] [id number] 11:02:26 Test Item Value Reference Range Interpretation Comments Testoster Tot (test 313 ng/dL 193-740 Referenc e Ranges: code = 2986-8) Male: Age 20 - 49 249 - 836 Age >=50 193 - 740 Female: Age 20 - 49 8 - 48 Age & gt;=50 3 - 41 [facility] [id number] 11:02:26 Test Item Value Reference Range Interpretation Comments Testoster Tot (test 313 ng/dL 193-740 Referenc e Ranges: code = 2986-8) Male: Age 20 - 49 249 - 836 Age >=50 193 - 740 Female: Age 20 - 49 8 - 48 Age & gt;=50 3 - 41 [facility] Specific Antigen (PSA) [id number] 11:02:24 Test Item Value Reference Range Interpretation Comments PSA (test code = 0.2 ng/mL 0.0-4.0 Results gre ater than 2857-1) 4519 ng/mL may not be reliable due to matrix effect with ext ended dilution as it exceeds the manufacture r's recommended simon it. Caution should be exercised when interpreting mcgraw ch values and done in conjunction wit clinical contex t. PSA Indication (test Diagnostic code = 9395) [facility] (PSA) [id number] 11:02:24 Test Item Value Reference Range Interpretation Comments PSA (test code = 0.2 ng/mL 0.0-4.0 Results gre ater than 2857-1) 4519 ng/mL may not be reliable due to matrix effect with ext ended dilution as it exceeds the manufacture r's recommended simon it. Caution should be exercised when interpreting mcgraw ch values and done in conjunction wit clinical contex t. PSA Indication (test Diagnostic code = 9395) [facility] (PSA) [id number] 11:02:24 Test Item Value Reference Range Interpretation Comments PSA (test code = 0.2 ng/mL 0.0-4.0 Results gre ater than 2857-1) 4519 ng/mL may not be reliable due to matrix effect with ext ended dilution as it exceeds the manufacture r's recommended simon it. Caution should be exercised when interpreting mcgraw ch values and done in conjunction wit clinical contex t. PSA Indication (test Diagnostic code = 9395) [facility] ([facility]A) [id number] 11:02:24 Test Item Value Reference Range Interpretation Comments PSA (test code = 0.2 ng/mL 0.0-4.0 Results gre ater than 2857-1) 4519 ng/mL may not be reliable due to matrix effect with ext ended dilution as it exceeds the manufacture r's recommended simon it. Caution should be exercised when interpreting mcgraw ch values and done in conjunction wit h clinical contex t. PSA Indication (test Diagnostic code = 9395) [facility] (PSA) [id number] 11:02:24 Test Item Value Reference Range Interpretation Comments PSA (test code = 0.2 ng/mL 0.0-4.0 Results gre ater than 2857-1) 4519 ng/mL may not be reliable due to matrix effect with ext ended dilution as it exceeds the manufacture r's recommended simon it. Caution should be exercised when interpreting mcgraw ch values and done in conjunction wit clinical contex t. PSA Indication (test Diagnostic code = 9395) [facility] 19:56:03 Test Item Value Reference Range Interpretation Comments ABORh. (test code = 882-1) O POS [facility] 19:56:03 Test Item Value Reference Range Interpretation Comments ABORh. (test code = 882-1) O POS [facility] 19:56:03 Test Item Value Reference Range Interpretation Comments ABORh. (test code = 882-1) O POS [facility] 19:56:03 Test Item Value Reference Range Interpretation Comments ABORh. (test code = 882-1) O POS [facility] 19:56:03 Test Item Value Reference Range Interpretation Comments ABORh. (test code = 882-1) O POS [facility] Expiration [id number] 19:55:59 Test Item Value Reference Range Interpretation Comments T & S Expiration (test code = 05/27/2021 5318) [facility] [id number] 19:55:59 Test Item Value Reference Range Interpretation Comments T & S Expiration (test code = 05/27/2021 5318) [facility] Ex[facility] [id number] 19:55:59 Test Item Value Reference Range Interpretation Comments T & S Expiration (test code = 05/27/20215317) [facility] [id number] 19:55:59 Test Item Value Reference Range Interpretation Comments T & S Expiration (test code = 05/27/20215317) [facility] Expiration [id number] 19:55:59 Test Item Value Reference Range Interpretation Comments T & S Expiration (test code = 05/27/20215317) [facility] 18:46:29 Test Item Value Reference Range Interpretation Comments aPTT (test code = 34.8 See_Comment [Automate d message] The 96728-1) system which ge nerated this result transmit esteban reference range : 24.7 - 36.8 second(s). The reference range was not used to interpr et this result as cuate l/abnormal. [facility] 18:46:29 Test Item Value Reference Range Interpretation Comments aPTT (test code = 34.8 See_Comment [Automate d message] The 73660-1) system which ge nerated this result transmit esteban reference range : 24.7 - 36.8 second(s). The reference range was not used to interpr et this result as cuate l/abnormal. [facility] 18:46:29 Test Item Value Reference Range Interpretation Comments aPTT (test code = 34.8 See_Comment [Automate d message] The 64760-0) system which ge nerated this result transmit esteban reference range : 24.7 - 36.8 second(s). The reference range was not used to interpr et this result as cuate l/abnormal. [facility] 18:46:29 Test Item Value Reference Range Interpretation Comments aPTT (test code = 34.8 See_Comment [Automate d message] The 76614-9) system which ge nerated this result transmit esteban reference range : 24.7 - 36.8 second(s). The reference range was not used to interpr et this result as cuate l/abnormal. [facility] 18:46:29 Test Item Value Reference Range Interpretation Comments aPTT (test code = 34.8 See_Comment [Automate d message] The 91784-3) system which ge nerated this result transmit esteban reference range : 24.7 - 36.8 second(s). The reference range was not used to interpr et this result as cuate l/abnormal. [facility] [id number] 18:46:28 Test Item Value Reference Range Interpretation Comments PT (test code = 5902-2) 15.5 See_Comment H [Au tomated message] The system [employer] generated this result transmitted ref erence range: 11.5 - 1 3.9 second(s). The reference range was not used to int erpret this result as normal/abnormal . INR (test code = 6301-6) 1.31 0.90-1.10 H Lab Interpretation (test Abnormal code = 21426-1) [facility] [id number] 18:46:28 Test Item Value Reference Range Interpretation Comments PT (test code = 5902-2) 15.5 See_Comment H [Au tomated message] The system [employer] generated this result transmitted ref erence range: 11.5 - 1 3.9 second(s). The reference range was not used to int erpret this result as normal/abnormal . INR (test code = 6301-6) 1.31 0.90-1.10 H Lab Interpretation (test Abnormal code = 85085-3) [facility] [id number] 18:46:28 Test Item Value Reference Range Interpretation Comments PT (test code = 5902-2) 15.5 See_Comment H [Au tomated message] The system [employer] generated this result transmitted ref erence range: 11.5 - 1 3.9 second(s). The reference range was not used to int erpret this result as normal/abnormal . INR (test code = 6301-6) 1.31 0.90-1.10 H Lab Interpretation (test Abnormal code = 90000-7) [facility] [id number] 18:46:28 Test Item Value Reference Range Interpretation Comments PT (test code = 5902-2) 15.5 See_Comment H [Au tomated message] The system [employer] generated this result transmitted ref erence range: 11.5 - 1 3.9 second(s). The reference range was not used to int erpret this result as normal/abnormal . INR (test code = 6301-6) 1.31 0.90-1.10 H Lab Interpretation (test Abnormal code = 96264-0) [facility] [id number] 18:46:28 Test Item Value Reference Range Interpretation Comments PT (test code = 5902-2) 15.5 See_Comment H [Au tomated message] The system [employer] generated this result transmitted ref erence range: 11.5 - 1 3.9 second(s). The reference range was not used to int erpret this result as normal/abnormal . INR (test code = 6301-6) 1.31 0.90-1.10 H Lab Interpretation (test Abnormal code = 02674-3) [facility] Platelet Fraction 2021-05-24 18:31:05 Test Item Value Reference Range Interpretation Comments IPF (test code = 5.6 % 0.8-6.2 5988) BEVERLEY (test code = For patients with BEVERLEY) Platelets lower than 100 k/mm3 [facility] Platelet Fraction 2021-05-24 18:31:05 Test Item Value Reference Range Interpretation Comments IPF (test code = 5.6 % 0.8-6.2 5988) BEVERLEY (test code = For patients with BEVERLEY) Platelets lower than 100 k/mm3 [facility] Platelet Fraction 2021-05-24 18:31:05 Test Item Value Reference Range Interpretation Comments IPF (test code = 5.6 % 0.8-6.2 5988) BEVERLEY (test code = For patients with BEVERLEY) Platelets lower than 100 k/mm3 [facility] Platelet Fraction 2021-05-24 18:31:05 Test Item Value Reference Range Interpretation Comments IPF (test code = 5.6 % 0.8-6.2 5988) BEVERLEY (test code = For patients with BEVERLEY) Platelets lower than 100 k/mm3 [facility] 2021-05-24 18:31:05 Test Item Value Reference Range Interpretation Comments IPF (test code = 5.6 % 0.8-6.2 5988) BEVERLEY (test code = For patients with BEVERLEY) Platelets lower than 100 k/mm3 [facility] [id number] 18:31:04 Test Item Value Reference Range Interpretation Comments Retic Cnt Auto (test code 1.7 % 0.5-1.5 H = 36460-2) RETHE (test code = 33.7 pg 23.2-37.5 15757-4) IRF (test code = 78428-4) 12.0 % 2.3-18.0 BEVERLEY (test code = BEVERLEY) For patients with Platelets lower than 100 k/mm3 Lab Interpretation (test Abnormal code = 91879-8) [facility] [id number] 18:31:04 Test Item Value Reference Range Interpretation Comments Retic Cnt Auto (test code 1.7 % 0.5-1.5 H = 21020-7) RETHE (test code = 33.7 pg 23.2-37.5 94643-1) IRF (test code = 61185-3) 12.0 % 2.3-18.0 BEVERLEY (test code = BEVERLEY) For patients with Platelets lower than 100 k/mm3 Lab Interpretation (test Abnormal code = 84928-4) [facility] [id number] 18:31:04 Test Item Value Reference Range Interpretation Comments Retic Cnt Auto (test code 1.7 % 0.5-1.5 H = 31089-7) RETHE (test code = 33.7 pg 23.2-37.5 50927-6) IRF (test code = 96831-8) 12.0 % 2.3-18.0 BEVERLEY (test code = BEVERLEY) For patients with Platelets lower than 100 k/mm3 Lab Interpretation (test Abnormal code = 42701-3) [facility] [id number] 18:31:04 Test Item Value Reference Range Interpretation Comments Retic Cnt Auto (test code 1.7 % 0.5-1.5 H = 11589-6) RETHE (test code = 33.7 pg 23.2-37.5 98135-7) IRF (test code = 39190-3) 12.0 % 2.3-18.0 BEVERLEY (test code = BEVERLEY) For patients with Platelets lower than 100 k/mm3 Lab Interpretation (test Abnormal code = 97534-1) [facility] [id number] 18:31:04 Test Item Value Reference Range Interpretation Comments Retic Cnt Auto (test code 1.7 % 0.5-1.5 H = 82694-8) RETHE (test code = 33.7 pg 23.2-37.5 49561-7) IRF (test code = 90297-2) 12.0 % 2.3-18.0 BEVERLEY (test code = BEVERLEY) For patients with Platelets lower than 100 k/mm3 Lab Interpretation (test Abnormal code = 15765-1) [facility] [id number] 10:22:54 Test Item Value Reference Range Interpretation Comments Sodium Lvl (test code = 142 See_Comment [Au tomated message] The 2950-04) system which ge nerated this result tra nsmitted reference range : 136 - 145 mEq/L. The reference range was not u sed to interpret this result as normal/abnormal . Potassium Lvl (test 4.2 See_Comment [Automa esteban message] The code = 2823-3) system which generated this result tra nsmitted reference range : 3.5 - 5.1 mEq/L. The reference range was not u sed to interpret this result as normal/abnormal . Chloride (test code = 106 See_Comment [Auto mated message] The ) system which ge nerated this result tra nsmitted reference range : 98 - 107 mEq/L. The refe rence range was not u sed to interpret this result as normal/abnormal . CO2 (test code = 23 See_Comment [Automated message] The 2027-11) system which ge nerated this result tra nsmitted reference range : 22 - 29 mEq/L. The refe rence range was not u sed to interpret this result as normal/abnormal . Anion Gap (test code = 13 See_Comment [Aut omated message] The ) system which ge nerated this result tra nsmitted reference range : 4 - 14 mEq/L. The refe rence range was not u sed to interpret this result as normal/abnormal . [facility] [id number] 10:22:54 Test Item Value Reference Range Interpretation Comments Sodium Lvl (test code = 142 See_Comment [Au tomated message] The 2950-04) system which ge nerated this result tra nsmitted reference range : 136 - 145 mEq/L. The reference range was not u sed to interpret this result as normal/abnormal . Potassium Lvl (test 4.2 See_Comment [Automa esteban message] The code = 2823-3) system which generated this result tra nsmitted reference range : 3.5 - 5.1 mEq/L. The reference range was not u sed to interpret this result as normal/abnormal . Chloride (test code = 106 See_Comment [Auto mated message] The ) system which ge nerated this result tra nsmitted reference range : 98 - 107 mEq/L. The refe rence range was not u sed to interpret this result as normal/abnormal . CO2 (test code = 23 See_Comment [Automated message] The 2027-11) system which ge nerated this result tra nsmitted reference range : 22 - 29 mEq/L. The refe rence range was not u sed to interpret this result as normal/abnormal . Anion Gap (test code = 13 See_Comment [Aut omated message] The ) system which ge nerated this result tra nsmitted reference range : 4 - 14 mEq/L. The refe rence range was not u sed to interpret this result as normal/abnormal . [facility] [id number] 10:22:54 Test Item Value Reference Range Interpretation Comments Sodium Lvl (test code = 142 See_Comment [Au tomated message] The 2950-04) system which ge nerated this result tra nsmitted reference range : 136 - 145 mEq/L. The reference range was not u sed to interpret this result as normal/abnormal . Potassium Lvl (test 4.2 See_Comment [Automa esteban message] The code = 2823-3) system which generated this result tra nsmitted reference range : 3.5 - 5.1 mEq/L. The reference range was not u sed to interpret this result as normal/abnormal . Chloride (test code = 106 See_Comment [Auto mated message] The ) system which ge nerated this result tra nsmitted reference range : 98 - 107 mEq/L. The refe rence range was not u sed to interpret this result as normal/abnormal . CO2 (test code = 23 See_Comment [Automated message] The 2027-11) system which ge nerated this result tra nsmitted reference range : 22 - 29 mEq/L. The refe rence range was not u sed to interpret this result as normal/abnormal . Anion Gap (test code = 13 See_Comment [Aut omated message] The ) system which ge nerated this result tra nsmitted reference range : 4 - 14 mEq/L. The refe rence range was not u sed to interpret this result as normal/abnormal . [facility] [id number] 10:22:54 Test Item Value Reference Range Interpretation Comments Sodium Lvl (test code = 142 See_Comment [Au tomated message] The 2950-04) system which ge nerated this result tra nsmitted reference range : 136 - 145 mEq/L. The reference range was not u sed to interpret this result as normal/abnormal . Potassium Lvl (test 4.2 See_Comment [Automa esteban message] The code = 2823-3) system which generated this result tra nsmitted reference range : 3.5 - 5.1 mEq/L. The reference range was not u sed to interpret this result as normal/abnormal . Chloride (test code = 106 See_Comment [Auto mated message] The ) system which ge nerated this result tra nsmitted reference range : 98 - 107 mEq/L. The refe rence range was not u sed to interpret this result as normal/abnormal . CO2 (test code = 23 See_Comment [Automated message] The 2027-11) system which ge nerated this result tra nsmitted reference range : 22 - 29 mEq/L. The refe rence range was not u sed to interpret this result as normal/abnormal . Anion Gap (test code = 13 See_Comment [Aut omated message] The ) system which ge nerated this result tra nsmitted reference range : 4 - 14 mEq/L. The refe rence range was not u sed to interpret this result as normal/abnormal . [facility] [id number] 10:22:54 Test Item Value Reference Range Interpretation Comments Sodium Lvl (test code = 142 See_Comment [Au tomated message] The 2950-04) system which ge nerated this result tra nsmitted reference range : 136 - 145 mEq/L. The reference range was not u sed to interpret this result as normal/abnormal . Potassium Lvl (test 4.2 See_Comment [Automa esteban message] The code = 2823-3) system which generated this result tra nsmitted reference range : 3.5 - 5.1 mEq/L. The reference range was not u sed to interpret this result as normal/abnormal . Chloride (test code = 106 See_Comment [Auto mated message] The ) system which ge nerated this result tra nsmitted reference range : 98 - 107 mEq/L. The refe rence range was not u sed to interpret this result as normal/abnormal . CO2 (test code = 23 See_Comment [Automated message] The 2027-11) system which ge nerated this result tra nsmitted reference range : 22 - 29 mEq/L. The refe rence range was not u sed to interpret this result as normal/abnormal . Anion Gap (test code = 13 See_Comment [Aut omated message] The ) system which ge nerated this result tra nsmitted reference range : 4 - 14 mEq/L. The refe rence range was not u sed to interpret this result as normal/abnormal . [facility] [id number] 10:22:52 Test Item Value Reference Range Interpretation Comments Phosphorus (test code = 2777-1) 4.3 mg/dL 2.5-4.5 [facility] [id number] 10:22:52 Test Item Value Reference Range Interpretation Comments Phosphorus (test code = 2777-1) 4.3 mg/dL 2.5-4.5 [facility] [id number] 10:22:52 Test Item Value Reference Range Interpretation Comments Phosphorus (test code = 2777-1) 4.3 mg/dL 2.5-4.5 [facility] [id number] 10:22:52 Test Item Value Reference Range Interpretation Comments Phosphorus (test code = 2777-1) 4.3 mg/dL 2.5-4.5 [facility] [id number] 10:22:52 Test Item Value Reference Range Interpretation Comments Phosphorus (test code = 2777-1) 4.3 mg/dL 2.5-4.5 [facility] [id number] 10:22:51 Test Item Value Reference Range Interpretation Comments Calcium Lvl (test code = 80435-3) 8.9 mg/dL 8.4-10.2 [facility] [id number] 10:22:51 Test Item Value Reference Range Interpretation Comments Calcium Lvl (test code = 22866-5) 8.9 mg/dL 8.4-10.2 [facility] [id number] 10:22:51 Test Item Value Reference Range Interpretation Comments Calcium Lvl (test code = 58343-1) 8.9 mg/dL 8.4-10.2 [facility] [id number] 10:22:51 Test Item Value Reference Range Interpretation Comments Calcium Lvl (test code = 88942-6) 8.9 mg/dL 8.4-10.2 [facility] [id number] 10:22:51 Test Item Value Reference Range Interpretation Comments Calcium Lvl (test code = 51486-1) 8.9 mg/dL 8.4-10.2 [facility] Rate 2021-05-24 10:22:50 Test Item Value Reference Range Interpretation Comments eGFR-AA (test code 84 See_Comment Normal eG FR: >= 60 = 14784-2) mL/min/1.73 m2N ote: The eGFR is calculated [...] Stage Description GFR mL/min/1.73 m21 Normal or h igh GFR >=902 Mildly decrease d GFR 60-893a Mildly to moder ately decreased GFR 4 5-593b Moderately to s everely decreased GFR 3 0-444 Severely decreased GFR 1 5-295 Kidney failure <15 [Au tomated message] The sy stem which generated this result transmitted ref erence range: >=60 mL/min/1.7 3 sq. m. The reference range was not used to interpret th is result as normal/abnormal . eGFR-DARIEN (test code 73 See_Comment Normal e GFR: >= 60 = 82962-1) mL/min/1.73 m2N ote: The eGFR is calculated [...] Stage Description GFR mL/min/1.73 m21 Normal or h igh GFR >=902 Mildly decrease d GFR 60-893a Mildly to moder ately decreased GFR 4 5-593b Moderately to s everely decreased GFR 3 0-444 Severely decreased GFR 1 5-295 Kidney failure <15 [Au tomated message] The sy stem which generated this result transmitted ref erence range: >=60 mL/min/1.7 3 sq. m. The reference range was not used to interpret is result as normal/abnormal . [facility] BronsonGlomerular Filtration Rate 2021-05-24 10:22:50 Test Item Value Reference Range Interpretation Comments eGFR-AA (test code 84 See_Comment Normal eG FR: >= 60 = 39351-4) mL/min/1.73 m2N ote: The eGFR is calculated [...] Stage Description GFR mL/min/1.73 m21 Normal or h igh GFR >=902 Mildly decrease d GFR 60-893a Mildly to moder ately decreased GFR 4 5-593b Moderately to s everely decreased GFR 3 0-444 Severely decreased GFR 1 5-295 Kidney failure <15 [Au tomated message] The sy stem which generated this result transmitted ref erence range: >=60 mL/min/1.7 3 sq. m. The reference range was not used to interpret th is result as normal/abnormal . eGFR-DARIEN (test code 73 See_Comment Normal e GFR: >= 60 = 62650-0) mL/min/1.73 m2N ote: The eGFR is calculated [...] Stage Description GFR mL/min/1.73 m21 Normal or h igh GFR >=902 Mildly decrease d GFR 60-893a Mildly to moder ately decreased GFR 4 5-593b Moderately to s everely decreased GFR 3 0-444 Severely decreased GFR 1 5-295 Kidney failure <15 [Au tomated message] The sy stem which generated this result transmitted ref erence range: >=60 mL/min/1.7 3 sq. m. The reference range was not used to interpret th is result as normal/abnormal . [facility] 2021-05-24 10:22:50 Test Item Value Reference Range Interpretation Comments eGFR-AA (test code 84 See_Comment Normal eG FR: >= 60 = 85913-4) mL/min/1.73 m2N ote: The eGFR is calculated [...] Stage Description GFR mL/min/1.73 m21 Normal or h igh GFR >=902 Mildly decrease d GFR 60-893a Mildly to moder ately decreased GFR 4 5-593b Moderately to s everely decreased GFR 3 0-444 Severely decreased GFR 1 5-295 Kidney failure <15 [A utomated message] The [employer] stem which generated this result transmitted ref erence range: >=60 mL/min/1.7 3 sq. m. The reference range was not used to interpret th is result as normal/abnormal . eGFR-DARIEN (test code 73 See_Comment Normal e GFR: >= 60 = 24303-1) mL/min/1.73 m2N ote: The eGFR is calculated [...] Stage Description GFR mL/min/1.73 m21 Normal or h igh GFR >=902 Mildly decrease d GFR 60-893a Mildly to moder ately decreased GFR 4 5-593b Moderately to s everely decreased GFR 3 0-444 Severely decreased GFR 1 5-295 Kidney failure <15 [Au tomated message] The sy stem which generated this result transmitted ref erence range: >=60 mL/min/1.7 3 sq. m. The reference range was not used to interpret th is result as normal/abnormal . [facility] 2021-05-24 10:22:50 Test Item Value Reference Range Interpretation Comments eGFR-AA (test code 84 See_Comment Normal eG FR: >= 60 = 45379-8) mL/min/1.73 m2N ote: The eGFR is calculated [...] Stage Description GFR mL/min/1.73 m21 Normal or h igh GFR >=902 Mildly decrease d GFR 60-893a Mildly to moder ately decreased GFR 4 5-593b Moderately to s everely decreased GFR 3 0-444 Severely decreased GFR 1 5-295 Kidney failure <15 [Au Livra Panelsated message] The [employer] stem which generated this result transmitted ref erence range: >=60 mL/min/1.7 3 sq. m. The reference range was not used to interpret th is result as normal/abnormal . eGFR-DARIEN (test code 73 See_Comment Normal e GFR: >= 60 = 56360-4) mL/min/1.73 m2N ote: The eGFR is calculated [...] Stage Description GFR mL/min/1.73 m21 Normal or h igh GFR >=902 Mildly decrease d GFR 60-893a Mildly to moder ately decreased GFR 4 5-593b Moderately to s everely decreased GFR 3 0-444 Severely decreased GFR 1 5-295 Kidney failure <15 [Au tomated message] The sy stem which generated this result transmitted ref erence range: >=60 mL/min/1.7 3 sq. m. The reference range was not used to interpret th is result as normal/abnormal . [facility] 2021-05-24 10:22:50 Test Item Value Reference Range Interpretation Comments eGFR-AA (test code 84 See_Comment Normal eG FR: >= 60 = 46040-4) mL/min/1.73 m2N ote: The eGFR is calculated [...] Stage Description GFR mL/min/1.73 m21 Normal or h igh GFR >=902 Mildly decrease d GFR 60-893a Mildly to moder ately decreased GFR 4 5-593b Moderately to s everely decreased GFR 3 0-444 Severely decreased GFR 1 5-295 Kidney failure <15 [Au tomated message] The sy stem which generated this result transmitted ref erence range: >=60 mL/min/1.7 3 sq. m. The reference range was not used to interpret th is result as normal/abnormal . eGFR-DARIEN (test code 73 See_Comment Normal e GFR: >= 60 = 01362-3) mL/min/1.73 m2N ote: The eGFR is calculated [...] Stage Description GFR mL/min/1.73 m21 Normal or h igh GFR >=902 Mildly decrease d GFR 60-893a Mildly to moder ately decreased GFR 4 5-593b Moderately to s everely decreased GFR 3 0-444 Severely decreased GFR 1 5-295 Kidney failure <15 [Au tomated message] The sy stem which generated this result transmitted ref erence range: >=60 mL/min/1.7 3 sq. m. The reference range was not used to interpret th is result as normal/abnormal . [facility] [id number] 10:22:48 Test Item Value Reference Range Interpretation Comments Magnesium (test code = 85683-6) 2.1 mg/dL 1.6-2.6 [facility] [id number] 10:22:48 Test Item Value Reference Range Interpretation Comments Magnesium (test code = 20881-7) 2.1 mg/dL 1.6-2.6 [facility] [id number] 10:22:48 Test Item Value Reference Range Interpretation Comments Magnesium (test code = 88539-7) 2.1 mg/dL 1.6-2.6 [facility] [id number] 10:22:48 Test Item Value Reference Range Interpretation Comments Magnesium (test code = 48400-3) 2.1 mg/dL 1.6-2.6 [facility] [id number] 10:22:48 Test Item Value Reference Range Interpretation Comments Magnesium (test code = 58397-3) 2.1 mg/dL 1.6-2.6 [facility] [id number] 10:22:47 Test Item Value Reference Range Interpretation Comments Glucose Level (test code 102 mg/dL 70-99 H Eff ective 10/08/15, = 2345-7) the glucose reference inter vals have been updat ed based on [place] [employer] ation guidelines (Standards of Medical Care in Diabetes 2016. Diabetes Care 2 016; 39: S13-S22).Fa sting blood glucose:Normal: 70-99 mg/dLImpa ired fasting glucose (increased risk for diabetes or pre-diabetes): 100-125 mg/dLDiabetes mellitus: >/=12 6 mg/dL Random bl ood glucose:Normal: 70-199 mg/dLNot e: Random glucose >100 mg/dL is associ ated with increased risk for diabetes Lab Interpretation (test Abnormal code = 14112-1) [facility] [id number] 10:22:47 Test Item Value Reference Range Interpretation Comments Glucose Level (test code 102 mg/dL 70-99 H Eff ective 10/08/15, = 2345-7) the glucose reference inter vals have been updat ed based on [place] [employer] ation guidelines (Standards of Medical Care in Diabetes 2016. Diabetes Care 2 016; 39: S13-S22).Fa sting blood glucose:Normal: 70-99 mg/dLImpa ired fasting glucose (increased risk for diabetes or pre-diabetes): 100-125 mg/dLDiabetes mellitus: >/=12 6 mg/dL Random bl ood glucose:Normal: 70-199 mg/dLNot e: Random glucose >100 mg/dL is associ ated with increased risk for diabetes Lab Interpretation (test Abnormal code = 93668-6) [facility] [id number] 10:22:47 Test Item Value Reference Range Interpretation Comments Glucose Level (test code 102 mg/dL 70-99 H Eff ective 10/08/15, = 2345-7) the glucose reference inter vals have been updat ed based on [place] Diabetes [employer] ation guidelines (Standards of Medical Care in Diabetes 2016. Diabetes Care 2 016; 39: S13-S22).Fa sting blood glucose:Normal: 70-99 mg/dLImpa ired fasting glucose (increased risk for diabetes or pre-diabetes): 100-125 mg/dLDiabetes mellitus: >/=12 6 mg/dL Random bl ood glucose:Normal: 70-199 mg/dLNot e: Random glucose >100 mg/dL is associ ated with increased risk for diabetes Lab Interpretation (test Abnormal code = 19478-9) [facility] [id number] 10:22:47 Test Item Value Reference Range Interpretation Comments Glucose Level (test code 102 mg/dL 70-99 H Eff ective 10/08/15, = 2345-7) the glucose reference inter vals have been updat ed based on [place] Diabetes [employer] ation guidelines (Standards of Medical Care in Diabetes 2016. Diabetes Care 2 016; 39: S13-S22).Fa sting blood glucose:Normal: 70-99 mg/dLImpa ired fasting glucose (increased risk for diabetes or pre-diabetes): 100-125 mg/dLDiabetes mellitus: >/=12 6 mg/dL Random bl ood glucose:Normal: 70-199 mg/dLNot e: Random glucose >100 mg/dL is associ ated with increased risk for diabetes Lab Interpretation (test Abnormal code = 89591-0) [facility] [id number] 10:22:47 Test Item Value Reference Range Interpretation Comments Glucose Level (test code 102 mg/dL 70-99 H Eff ective 10/08/15, = 2345-7) the glucose reference inter vals have been updat ed based on [place] Diabetes [employer] ation guidelines (Standards of Medical Care in Diabetes 2016. Diabetes Care 2 016; 39: S13-S22).Fa sting blood glucose:Normal: 70-99 mg/dLImpa ired fasting glucose (increased risk for diabetes or pre-diabetes): 100-125 mg/dLDiabetes mellitus: >/=12 6 mg/dL Random bl ood glucose:Normal: 70-199 mg/dLNot e: Random glucose >100 mg/dL is associ ated with increased risk for diabetes Lab Interpretation (test Abnormal code = 13824-9) [facility].Serum [id number] 10:22:46 Test Item Value Reference Range Interpretation Comments Creatinine (test code = 2160-0) 0.98 mg/dL 0.67-1.17 [facility].Serum [id number] 10:22:46 Test Item Value Reference Range Interpretation Comments Creatinine (test code = 2160-0) 0.98 mg/dL 0.67-1.17 [facility].Serum [id number] 10:22:46 Test Item Value Reference Range Interpretation Comments Creatinine (test code = 2160-0) 0.98 mg/dL 0.67-1.17 [facility].Serum [id number] 10:22:46 Test Item Value Reference Range Interpretation Comments Creatinine (test code = 2160-0) 0.98 mg/dL 0.67-1.17 [facility].Serum [id number] 10:22:46 Test Item Value Reference Range Interpretation Comments Creatinine (test code = 2160-0) 0.98 mg/dL 0.67-1.17 [facility] 10:22:45 Test Item Value Reference Range Interpretation Comments BUN (test code = 3094-0) 23 mg/dL 6- [facility] 10:22:45 Test Item Value Reference Range Interpretation Comments BUN (test code = 3094-0) 23 mg/dL 6- [facility] 10:22:45 Test Item Value Reference Range Interpretation Comments BUN (test code = 3094-0) 23 mg/dL 6- [facility] 10:22:45 Test Item Value Reference Range Interpretation Comments BUN (test code = 3094-0) 23 mg/dL 6- [facility] 10:22:45 Test Item Value Reference Range Interpretation Comments BUN (test code = 3094-0) 23 mg/dL 6- [facility], Nasopharyngeal [id number] 22:18:45 Test Item Value Reference Range Interpretation Comments Adenovirus (test code = Not Detected Not Detected 4743) Coronavirus 229E (test Not Detected Not Detected code = 5349) Coronavirus HKU1 (test Not Detected Not Detected code = 5350) Coronavirus NL63 (test Not Detected Not Detected code = 5351) Coronavirus OC43 (test Not Detected Not Detected code = 5352) COVID19 (SARS-CoV-2) Not Detected Not Detected (test code = 92352-3) Human Metapneumovirus Not Detected Not Detected (test [...] Detected Not Detected Parapertussis (test code = 37577) Bordetella pertussis Not Detected Not Detected (test [...] including SARS-CoV-2, from a single nasopharyngeal swab (MEAT AND SEAFOOD MANAGER) specimen obtained from individuals suspected of respiratory tract infections, including COVID-19. Results must be interpreted within the context of all relevant clinical and laboratory findings and should not form the sole basis for a diagnosis or treatment decision. Positive results do not rule out coninfection with other organisms. Negative results in the setting of a respiratory illness may be due to infection with pathogens that are not detected by this panel, or a lower respiratory tract infection that may not be detected by an MEAT AND SEAFOOD MANAGER specimen. Internal controls are used to monitor all stages of the test process and assess for possible amplification inhibitors. If inhibition is detected, testing is repeated and if inhibition is confirmed the specimen is resulted as "Invalid". When an "Invalid" result occurs, it is recommended to wait 3 days before submitting a new specimen for testing if clinically indicated. This assay has been approved by the FDA for use in laboratories that have been CLIA-certified to perform moderate-complexity and high-complexity tests. The [facility] at [facility], CLIA Accreditation #[id number] and CAP Accreditation #[id number], verified the performance characteristics of this assay. [facility] performs the assay using the Medigo System. The BioFire RP2.1 is a real-time, nested multiplexed polymerase chain reaction test designed to simultaneously identify nucleic acids from 22 different viruses and bacteria associated with respiratory tract infection, including SARS-CoV-2, from a single nasopharyngeal swab (MEAT AND SEAFOOD MANAGER) specimen obtained from individuals suspected of respiratory tract infections, including COVID-19. Results must be interpreted within the context of all relevant clinical and laboratory findings and should not form the sole basis for a diagnosis or treatment decision. Positive results do not rule out coninfection with other organisms. Negative results in the setting of a respiratory illness may be due to infection with pathogens that are not detected by this panel, or a lower respiratory tract infection that may not be detected by an MEAT AND SEAFOOD MANAGER specimen. Internal controls are used to monitor all stages of the test process and assess for possible amplification inhibitors. If inhibition is detected, testing is repeated and if inhibition is confirmed the specimen is resulted as "Invalid". When an "Invalid" result occurs, it is recommended to wait 3 days before submitting a new specimen for testing if clinically indicated. This assay has been approved by the FDA for use in laboratories that have been CLIA-certified to perform moderate-complexity and high-complexity tests. The [facility] at [facility], CLIA Accreditation #[id number] and CAP Accreditation #[id number], verified the performance characteristics of this assay. [facility] performs the assay using the Medigo System. [facility], Nasopharyngeal [id number] 22:18:45 Test Item Value Reference Range Interpretation Comments Adenovirus (test code = Not Detected Not Detected 4746) Coronavirus 229E (test Not Detected Not Detected code = 5349) Coronavirus HKU1 (test Not Detected Not Detected code = 5350) Coronavirus NL63 (test Not Detected Not Detected code = 5351) Coronavirus OC43 (test Not Detected Not Detected code = 5352) COVID19 (SARS-CoV-2) Not Detected Not Detected (test code = 50443-3) Human Metapneumovirus Not Detected Not Detected (test [...] Detected Not Detected Parapertussis (test code = 51625) Bordetella pertussis Not Detected Not Detected (test [...] including SARS-CoV-2, from a single nasopharyngeal swab (MEAT AND SEAFOOD MANAGER) specimen obtained from individuals suspected of respiratory tract infections, including COVID-19. Results must be interpreted within the context of all relevant clinical and laboratory findings and should not form the sole basis for a diagnosis or treatment decision. Positive results do not rule out coninfection with other organisms. Negative results in the setting of a respiratory illness may be due to infection with pathogens that are not detected by this panel, or a lower respiratory tract infection that may not be detected by an MEAT AND SEAFOOD MANAGER specimen. Internal controls are used to monitor all stages of the test process and assess for possible amplification inhibitors. If inhibition is detected, testing is repeated and if inhibition is confirmed the specimen is resulted as "Invalid". When an "Invalid" result occurs, it is recommended to wait 3 days before submitting a new specimen for testing if clinically indicated. This assay has been approved by the FDA for use in laboratories that have been CLIA-certified to perform moderate-complexity and high-complexity tests. The [facility] at [facility], CLIA Accreditation #[id number] and CAP Accreditation #[id number], verified the performance characteristics of this assay. [facility] performs the assay using the Medigo System. The BioFire RP2.1 is a real-time, nested multiplexed polymerase chain reaction test designed to simultaneously identify nucleic acids from 22 different viruses and bacteria associated with respiratory tract infection, including SARS-CoV-2, from a single nasopharyngeal swab (MEAT AND SEAFOOD MANAGER) specimen obtained from individuals suspected of respiratory tract infections, including COVID-19. Results must be interpreted within the context of all relevant clinical and laboratory findings and should not form the sole basis for a diagnosis or treatment decision. Positive results do not rule out coninfection with other organisms. Negative results in the setting of a respiratory illness may be due to infection with pathogens that are not detected by this panel, or a lower respiratory tract infection that may not be detected by an MEAT AND SEAFOOD MANAGER specimen. Internal controls are used to monitor all stages of the test process and assess for possible amplification inhibitors. If inhibition is detected, testing is repeated and if inhibition is confirmed the specimen is resulted as "Invalid". When an "Invalid" result occurs, it is recommended to wait 3 days before submitting a new specimen for testing if clinically indicated. This assay has been approved by the FDA for use in laboratories that have been CLIA-certified to perform moderate-complexity and high-complexity tests. The [facility] at [facility], CLIA Accreditation #[id number] and CAP Accreditation #[id number], verified the performance characteristics of this assay. [facility] performs the assay using the Medigo System. [facility], Nasopharyngeal [id number] 22:18:45 Test Item Value Reference Range Interpretation Comments Adenovirus (test code = Not Detected Not Detected 4748) Coronavirus 229E (test Not Detected Not Detected code = 5349) Coronavirus HKU1 (test Not Detected Not Detected code = 5350) Coronavirus NL63 (test Not Detected Not Detected code = 5351) Coronavirus OC43 (test Not Detected Not Detected code = 5352) COVID19 (SARS-CoV-2) Not Detected Not Detected (test code = 99728-8) Human Metapneumovirus Not Detected Not Detected (test [...] Detected Not Detected Parapertussis (test code = 99668) Bordetella pertussis Not Detected Not Detected (test [...] including SARS-CoV-2, from a single nasopharyngeal swab (MEAT AND SEAFOOD MANAGER) specimen obtained from individuals suspected of respiratory tract infections, including COVID-19. Results must be interpreted within the context of all relevant clinical and laboratory findings and should not form the sole basis for a diagnosis or treatment decision. Positive results do not rule out coninfection with other organisms. Negative results in the setting of a respiratory illness may be due to infection with pathogens that are not detected by this panel, or a lower respiratory tract infection that may not be detected by an MEAT AND SEAFOOD MANAGER specimen. Internal controls are used to monitor all stages of the test process and assess for possible amplification inhibitors. If inhibition is detected, testing is repeated and if inhibition is confirmed the specimen is resulted as "Invalid". When an "Invalid" result occurs, it is recommended to wait 3 days before submitting a new specimen for testing if clinically indicated. This assay has been approved by the FDA for use in laboratories that have been CLIA-certified to perform moderate-complexity and high-complexity tests. The [facility] at [facility], CLIA Accreditation #[id number] and CAP Accreditation #[id number], verified the performance characteristics of this assay. [facility] performs the assay using the Medigo System. The BioFire RP2.1 is a real-time, nested multiplexed polymerase chain reaction test designed to simultaneously identify nucleic acids from 22 different viruses and bacteria associated with respiratory tract infection, including SARS-CoV-2, from a single nasopharyngeal swab (MEAT AND SEAFOOD MANAGER) specimen obtained from individuals suspected of respiratory tract infections, including COVID-19. Results must be interpreted within the context of all relevant clinical and laboratory findings and should not form the sole basis for a diagnosis or treatment decision. Positive results do not rule out coninfection with other organisms. Negative results in the setting of a respiratory illness may be due to infection with pathogens that are not detected by this panel, or a lower respiratory tract infection that may not be detected by an MEAT AND SEAFOOD MANAGER specimen. Internal controls are used to monitor all stages of the test process and assess for possible amplification inhibitors. If inhibition is detected, testing is repeated and if inhibition is confirmed the specimen is resulted as "Invalid". When an "Invalid" result occurs, it is recommended to wait 3 days before submitting a new specimen for testing if clinically indicated. This assay has been approved by the FDA for use in laboratories that have been CLIA-certified to perform moderate-complexity and high-complexity tests. The [facility] at [facility], CLIA Accreditation #[id number] and CAP Accreditation #[id number], verified the performance characteristics of this assay. [facility] performs the assay using the Medigo System. [facility], Nasopharyngeal [id number] 22:18:45 Test Item Value Reference Range Interpretation Comments Adenovirus (test code = Not Detected Not Detected 4746) Coronavirus 229E (test Not Detected Not Detected code = 5349) Coronavirus HKU1 (test Not Detected Not Detected code = 5350) Coronavirus NL63 (test Not Detected Not Detected code = 5351) Coronavirus OC43 (test Not Detected Not Detected code = 5352) COVID19 (SARS-CoV-2) Not Detected Not Detected (test code = 91173-3) Human Metapneumovirus Not Detected Not Detected (test [...] Detected Not Detected Parapertussis (test code = 41689) Bordetella pertussis Not Detected Not Detected (test [...] including SARS-CoV-2, from a single nasopharyngeal swab (MEAT AND SEAFOOD MANAGER) specimen obtained from individuals suspected of respiratory tract infections, including COVID-19. Results must be interpreted within the context of all relevant clinical and laboratory findings and should not form the sole basis for a diagnosis or treatment decision. Positive results do not rule out coninfection with other organisms. Negative results in the setting of a respiratory illness may be due to infection with pathogens that are not detected by this panel, or a lower respiratory tract infection that may not be detected by an MEAT AND SEAFOOD MANAGER specimen. Internal controls are used to monitor all stages of the test process and assess for possible amplification inhibitors. If inhibition is detected, testing is repeated and if inhibition is confirmed the specimen is resulted as "Invalid". When an "Invalid" result occurs, it is recommended to wait 3 days before submitting a new specimen for testing if clinically indicated. This assay has been approved by the FDA for use in laboratories that have been CLIA-certified to perform moderate-complexity and high-complexity tests. The [facility] at [facility], CLIA Accreditation #[id number] and CAP Accreditation #[id number], verified the performance characteristics of this assay. [facility] performs the assay using the Medigo System. The BioFire RP2.1 is a real-time, nested multiplexed polymerase chain reaction test designed to simultaneously identify nucleic acids from 22 different viruses and bacteria associated with respiratory tract infection, including SARS-CoV-2, from a single nasopharyngeal swab (MEAT AND SEAFOOD MANAGER) specimen obtained from individuals suspected of respiratory tract infections, including COVID-19. Results must be interpreted within the context of all relevant clinical and laboratory findings and should not form the sole basis for a diagnosis or treatment decision. Positive results do not rule out coninfection with other organisms. Negative results in the setting of a respiratory illness may be due to infection with pathogens that are not detected by this panel, or a lower respiratory tract infection that may not be detected by an MEAT AND SEAFOOD MANAGER specimen. Internal controls are used to monitor all stages of the test process and assess for possible amplification inhibitors. If inhibition is detected, testing is repeated and if inhibition is confirmed the specimen is resulted as "Invalid". When an "Invalid" result occurs, it is recommended to wait 3 days before submitting a new specimen for testing if clinically indicated. This assay has been approved by the FDA for use in laboratories that have been CLIA-certified to perform moderate-complexity and high-complexity tests. The [facility], CLIA Accreditation #[id number] and CAP Accreditation #[id number], verified the performance characteristics of this assay. [facility] performs the assay using the Medigo System. [facility], Nasopharyngeal [id number] 22:18:45 Test Item Value Reference Range Interpretation Comments Adenovirus (test code = Not Detected Not Detected 1913) Coronavirus 229E (test Not Detected Not Detected code = 5349) Coronavirus HKU1 (test Not Detected Not Detected code = 5350) Coronavirus NL63 (test Not Detected Not Detected code = 5351) Coronavirus OC43 (test Not Detected Not Detected code = 5352) COVID19 (SARS-CoV-2) Not Detected Not Detected (test code = 74003-5) Human Metapneumovirus Not Detected Not Detected (test [...] Detected Not Detected Parapertussis (test code = 67646) Bordetella pertussis Not Detected Not Detected (test [...] including SARS-CoV-2, from a single nasopharyngeal swab (MEAT AND SEAFOOD MANAGER) specimen obtained from individuals suspected of respiratory tract infections, including COVID-19. Results must be interpreted within the context of all relevant clinical and laboratory findings and should not form the sole basis for a diagnosis or treatment decision. Positive results do not rule out coninfection with other organisms. Negative results in the setting of a respiratory illness may be due to infection with pathogens that are not detected by this panel, or a lower respiratory tract infection that may not be detected by an MEAT AND SEAFOOD MANAGER specimen. Internal controls are used to monitor all stages of the test process and assess for possible amplification inhibitors. If inhibition is detected, testing is repeated and if inhibition is confirmed the specimen is resulted as "Invalid". When an "Invalid" result occurs, it is recommended to wait 3 days before submitting a new specimen for testing if clinically indicated. This assay has been approved by the FDA for use in laboratories that have been CLIA-certified to perform moderate-complexity and high-complexity tests. The [facility], CLIA Accreditation #[id number] and CAP Accreditation #[id number], verified the performance characteristics of this assay. [facility] performs the assay using the Medigo System. The BioFire RP2.1 is a real-time, nested multiplexed polymerase chain reaction test designed to simultaneously identify nucleic acids from 22 different viruses and bacteria associated with respiratory tract infection, including SARS-CoV-2, from a single nasopharyngeal swab (MEAT AND SEAFOOD MANAGER) specimen obtained from individuals suspected of respiratory tract infections, including COVID-19. Results must be interpreted within the context of all relevant clinical and laboratory findings and should not form the sole basis for a diagnosis or treatment decision. Positive results do not rule out coninfection with other organisms. Negative results in the setting of a respiratory illness may be due to infection with pathogens that are not detected by this panel, or a lower respiratory tract infection that may not be detected by an MEAT AND SEAFOOD MANAGER specimen. Internal controls are used to monitor all stages of the test process and assess for possible amplification inhibitors. If inhibition is detected, testing is repeated and if inhibition is confirmed the specimen is resulted as "Invalid". When an "Invalid" result occurs, it is recommended to wait 3 days before submitting a new specimen for testing if clinically indicated. This assay has been approved by the FDA for use in laboratories that have been CLIA-certified to perform moderate-complexity and high-complexity tests. The [facility], CLIA Accreditation #[id number] and CAP Accreditation #[id number], verified the performance characteristics of this assay. [facility] performs the assay using the Medigo System. [id number] 20:40:38 Test Item Value Reference Range Interpretation Comments D-Dimer (test code 0.38 See_Comment The cut o ff value for = 96742-0) exclusion of ve nous thromboembolism is <0.51 mcg/mL FEUs (fibrinoge n equivalent units). [Automa esteban message] The system [employer] generated this result tra nsmitted reference range : 0.10 - 0.50 mcg/ml FEU. The reference range was not u sed to interpret this result as normal/abnormal . [facility][id number] 20:40:38 Test Item Value Reference Range Interpretation Comments D-Dimer (test code 0.38 See_Comment The cut o ff value for = 03363-2) exclusion of ve nous thromboembolism is <0.51 mcg/mL FEUs (fibrinoge n equivalent units). [Automa esteban message] The system [employer] generated this result tra nsmitted reference range : 0.10 - 0.50 mcg/ml FEU. The reference range was not u sed to interpret this result as normal/abnormal . [facility]ukduh2714-28-25 20:40:38 Test Item Value Reference Range Interpretation Comments D-Dimer (test code 0.38 See_Comment The cut o ff value for = 04991-2) exclusion of ve nous thromboembolism is <0.51 mcg/mL FEUs (fibrinoge n equivalent units). [Automa esteban message] The system [employer] generated this result tra nsmitted reference range : 0.10 - 0.50 mcg/ml FEU. The reference range was not u sed to interpret this result as normal/abnormal . [facility]-[id number] 20:40:38 Test Item Value Reference Range Interpretation Comments D-Dimer (test code 0.38 See_Comment The cut o ff value for = 10153-7) exclusion of ve nous thromboembolism is <0.51 mcg/mL FEUs (fibrinoge n equivalent units). [Automa esteban message] The system [employer] generated this result tra nsmitted reference range : 0.10 - 0.50 mcg/ml FEU. The reference range was not u sed to interpret this result as normal/abnormal . [facility]-[id number] 20:40:38 Test Item Value Reference Range Interpretation Comments D-Dimer (test code 0.38 See_Comment The cut o ff value for = 13612-1) exclusion of ve nous thromboembolism is <0.51 mcg/mL FEUs (fibrinoge n equivalent units). [Automa esteban message] The system [employer] generated this result tra nsmitted reference range : 0.10 - 0.50 mcg/ml FEU. The reference range was not u sed to interpret this result as normal/abnormal . [facility]21-[facility]-22 20:33:25 Test Item Value Reference Range Interpretation Comments NT ProBNP (test code = 538 pg/mL See_Comment H [Aut omated message] 21478-6) The system [employer] generated this result transmit esteban reference range : <=450. The refe rence range was not u sed to interpret th is result as normal/abnormal . Lab Interpretation (test Abnormal code = 09998-0) [facility]21-[facility]-22 20:33:25 Test Item Value Reference Range Interpretation Comments NT ProBNP (test code = 538 pg/mL See_Comment H [Aut omated message] 82773-6) The system [employer] generated this result transmit esetban reference range : <=450. The refe rence range was not u sed to interpret th is result as normal/abnormal . Lab Interpretation (test Abnormal code = 17960-7) [facility]21-[facility]-22 20:33:25 Test Item Value Reference Range Interpretation Comments NT ProBNP (test code = 538 pg/mL See_Comment H [Aut omated message] 53793-3) The system [employer] generated this result transmit esteban reference range : <=450. The refe rence range was not u sed to interpret th is result as normal/abnormal . Lab Interpretation (test Abnormal code = 57960-5) [facility] 20:33:25 Test Item Value Reference Range Interpretation Comments NT ProBNP (test code = 538 pg/mL See_Comment H [Aut omated message] 28078-1) The system [employer] generated this result transmit esteban reference range : <=450. The refe rence range was not u sed to interpret th is result as normal/abnormal . Lab Interpretation (test Abnormal code = 83399-1) [facility]22 20:33:25 Test Item Value Reference Range Interpretation Comments NT ProBNP (test code = 538 pg/mL See_Comment H [Aut omated message] 23940-1) The system [employer] generated this result transmit esteban reference range : <=450. The refe rence range was not u sed to interpret th is result as normal/abnormal . Lab Interpretation (test Abnormal code = 17464-1) [facility] [id number] 20:32:34 Test Item Value Reference Range Interpretation Comments CK (test code = 2157-6) 148 U/L 39-308 CK MB (test code = 6.3 ng/mL See_Comment [Automat ed message] 95092-9) The system [employer] generated this result transmitted ref erence range: <=10.4. The reference range was not used to int erpret this result as normal/abnormal . Troponin T (test code = 67 ng/L See_Comment A < 19 ng/L Suggest 86427-2) retest at 3 to 6 hours later to rule out myocardial infarction >= 1 9 to <=52 ng/L Possi ble myocardial inju ry. Suggest retest at 3 hours. - a mason ge of < 20 ng/L, rete st at 6 hours - a jacqueline nge of >= 20 ng/L, suggestive of myocardial infa rction > 52 ng/L Sugge stive of myocardial infarction Crit ical value will be reported when c Paddy is > 52 ng/L and o nly reported for th e first in a seri es. Hemolyzed speci mens with Hemolysis Index >100 (100 mg/dl or moderate hemoly sis) may cause interferences a nd falsely low res ults. [Automated mess age] The system [employer] generated this result transmitted ref erence range: <=18. Th e reference range was not used to int erpret this result as normal/abnormal . Lab Interpretation Abnormal (test code = 48131-0) [facility] Fmdji6939-00-26 20:32:34 Test Item Value Reference Range Interpretation Comments CK (test code = 2157-6) 148 U/L 39-308 CK MB (test code = 6.3 ng/mL See_Comment [Automat ed message] 53610-0) The system [employer] generated this result transmitted ref erence range: <=10.4. The reference range was not used to int erpret this result as normal/abnormal . Troponin T (test code = 67 ng/L See_Comment A < 19 ng/L Suggest 25745-5) retest at 3 to 6 hours later to rule out myocardial infarction >= 1 9 to <=52 ng/L Possi ble myocardial inju ry. Suggest retest at 3 hours. - a jacqueline nge of < 20 ng/L, rete st at 6 hours - a jacqueline nge of >= 20 ng/L, suggestive of myocardial infarction > 52 ng/L Suggestive of myocardial infa rction Critical value will be reported whe n cTnT is > 52 ng/L an d only reported for th e first in a seri es. Hemolyzed speci mens with Hemolysis Index >100 (100 mg/dl or moderate hemoly sis) may cause interferences a nd falsely low res ults. [Automated mess age] The system [employer] generated this result transmitted ref erence range: <=18. Th e reference range was not used to int erpret this result as normal/abnormal . Lab Interpretation Abnormal (test code = 16625-0) [facility] Zvlfh3961-15-12 20:32:34 Test Item Value Reference Range Interpretation Comments CK (test code = 2157-6) 148 U/L 39-308 CK MB (test code = 6.3 ng/mL See_Comment [Automat ed message] 36824-2) The system [employer] generated this result transmitted ref erence range: <=10.4. The reference range was not used to int erpret this result as normal/abnormal . Troponin T (test code = 67 ng/L See_Comment A < 19 ng/L Suggest 99417-8) retest at 3 to 6 hours later to rule out myocardial infarction >= 1 9 to <=52 ng/L Possi ble myocardial inju ry. Suggest retest at 3 hours. - a jacqueline nge of < 20 ng/L, rete st at 6 hours - a jacqueline nge of >= 20 ng/L, suggestive of myocardial infa rction > 52 ng/L Sugge stive of myocardial infarction Crit ical value will be reported when c Paddy is > 52 ng/L and o nly reported for th e first in a seri es. Hemolyzed speci mens with Hemolysis Index >100 (100 mg/dl or moderate hemoly sis) may cause interferences a nd falsely low res ults. [Automated mess age] The system [employer] generated this result transmitted ref erence range: <=18. Th e reference range was not used to int erpret this result as normal/abnormal . Lab Interpretation Abnormal (test code = 36584-0) [facility] Pmelo2260-58-07 20:32:34 Test Item Value Reference Range Interpretation Comments CK (test code = 2157-6) 148 U/L 39-308 CK MB (test code = 6.3 ng/mL See_Comment [Automat ed message] 00017-4) The system [employer] generated this result transmitted ref erence range: <=10.4. The reference range was not used to int erpret this result as normal/abnormal . Troponin T (test code = 67 ng/L See_Comment A < 19 ng/L Suggest 34100-5) retest at 3 to 6 hours later to rule out myocardial infarction >= 1 9 to <=52 ng/L Possi ble myocardial inju ry. Suggest retest at 3 hours. - a jacqueline nge of < 20 ng/L, rete st at 6 hours - a jacqueline nge of >= 20 ng/L, suggestive of myocardial infa rction > 52 ng/L Sugg estive of myocardial infarction Crit ical value will be reported when c Paddy is > 52 ng/L and o nly reported for th e first in a seri es. Hemolyzed speci mens with Hemolysis Index >100 (100 mg/dl or moderate hemoly sis) may cause interferences a nd falsely low res ults. [Automated mess age] The system [employer] generated this result transmitted ref erence range: <=18. Th e reference range was not used to int erpret this result as normal/abnormal . Lab Interpretation Abnormal (test code = 40515-5) [facility] Etswh7703-61-10 20:32:34 Test Item Value Reference Range Interpretation Comments CK (test code = 2157-6) 148 U/L 39-308 CK MB (test code = 6.3 ng/mL See_Comment [Automat ed message] 62357-3) The system [employer] generated this result transmitted ref erence range: <=10.4. The reference range was not used to int erpret this result as normal/abnormal . Troponin T (test code = 67 ng/L See_Comment A < 19 ng/L Suggest 83463-3) retest at 3 to 6 hours later to rule out myocardial infarction >= 1 9 to <=52 ng/L Possi ble myocardial inju ry. Suggest retest at 3 hours. - a mason ge of < 20 ng/L, rete st at 6 hours - a jacqueline nge of >= 20 ng/L, suggestive of myocardial infa rction > 52 ng/L Sugg estive of myocardial infarction Crit ical value will be reported when c Paddy is > 52 ng/L and o nly reported for th e first in a seri es. Hemolyzed speci mens with Hemolysis Index >100 (100 mg/dl or moderate hemoly sis) may cause interferences a nd falsely low res ults. [Automated mess age] The system [employer] generated this result transmitted ref erence range: <=18. Th e reference range was not used to int erpret this result as normal/abnormal . Lab Interpretation Abnormal (test code = 86890-2) [facility] Wqzmxqvdx6794-43-03 20:32:19 Test Item Value Reference Range Interpretation Comments Bili Total (test 0.4 mg/dL See_Comment Indocyanine Green (ICG) code = 1974-04) may cause fal sely elevated biliru bin results. Total and direct bilirubin must not be measured from s amples containing indo cyanine green. False el evation of total bilirubin can be seen in patient s with IgG concentrations above 28 g/L. [Automated message] The system [employer] generated this result transmitted ref erence range: <=1.2. T he reference range was not used to interpr et this result as normal/abnormal . Bili Direct (test <0.2 See_Comment Indocyanin e Green (ICG) code = 1967-09) may cause fal sely elevated biliru bin results. Total and direct bilirubin must not be measured from s amples containing indo cyanine green. [Automat ed message] The sy stem which generated this result transmitted ref erence range: <=0.3 mg /dL. The reference range was not used to interpr et this result as normal/abnormal . Bili Indirect (test See Note 0.0-0.9 Unable t o calculate code = 1970-03) Indirect Bili ross result due to some par ameters are outside rep ortable range [facility] Vlpjepoid8213-86-63 20:32:19 Test Item Value Reference Range Interpretation Comments Bili Total (test 0.4 mg/dL See_Comment Indocyanine Green (ICG) code = 1974-04) may cause fal sely elevated biliru bin results. Total and direct bilirubin must not be measured from s amples containing indo cyanine green. False el evation of total bilirubin can be seen in patient s with IgG concentrations above 28 g/L. [Automated message] The system [employer] generated this result transmitted ref erence range: <=1.2. T he reference range was not used to interpr et this result as normal/abnormal . Bili Direct (test <0.2 See_Comment Indocyanin e Green (ICG) code = 1967-09) may cause fal sely elevated biliru bin results. Total and direct bilirubin must not be measured from s amples containing indo cyanine green. [Automat ed message] The sy stem which generated this result transmitted ref erence range: <=0.3 mg /dL. The reference range was not used to interpr et this result as normal/abnormal . Bili Indirect (test See Note 0.0-0.9 Unable t o calculate code = 1970-03) Indirect Bili ross result due to some par ameters are outside rep ortable range [facility] Rdoohqelk7130-43-08 20:32:19 Test Item Value Reference Range Interpretation Comments Bili Total (test 0.4 mg/dL See_Comment Indocyanine Green (ICG) code = 1974-04) may cause fal sely elevated biliru bin results. Total and direct bilirubin must not be measured from s amples containing indo cyanine green. False el evation of total bilirubin can be seen in patient s with IgG concentrations above 28 g/L. [Automated message] The system [employer] generated this result transmitted ref erence range: <=1.2. T he reference range was not used to interpr et this result as normal/abnormal . Bili Direct (test <0.2 See_Comment Indocyanin e Green (ICG) code = 1967-09) may cause fal sely elevated biliru bin results. Total and direct bilirubin must not be measured from s amples containing indo cyanine green. [Automat ed message] The sy stem which generated this result transmitted ref erence range: <=0.3 mg /dL. The reference range was not used to interpr et this result as normal/abnormal . Bili Indirect (test See Note 0.0-0.9 Unable t o calculate code = 1970-03) Indirect Bili ross result due to some par ameters are outside rep ortable range [facility] Lsnwezobu1241-62-23 20:32:19 Test Item Value Reference Range Interpretation Comments Bili Total (test 0.4 mg/dL See_Comment Indocyanine Green (ICG) code = 1974-04) may cause fal sely elevated biliru bin results. Total and direct bilirubin must not be measured from s amples containing indo cyanine green. False el evation of total bilirubin can be seen in patient s with IgG concentrations above 28 g/L. [Automated message] The system [employer] generated this result transmitted ref erence range: <=1.2. T he reference range was not used to interpr et this result as normal/abnormal . Bili Direct (test <0.2 See_Comment Indocyanin e Green (ICG) code = 1967-09) may cause fal sely elevated biliru bin results. Total and direct bilirubin must not be measured from s amples containing indo cyanine green. [Automat ed message] The sy stem which generated this result transmitted ref erence range: <=0.3 mg /dL. The reference range was not used to interpr et this result as normal/abnormal . Bili Indirect (test See Note 0.0-0.9 Unable t o calculate code = 1970-03) Indirect Bili ross result due to some par ameters are outside rep ortable range [facility] Tjaqcuhvt0434-70-04 20:32:19 Test Item Value Reference Range Interpretation Comments Bili Total (test 0.4 mg/dL See_Comment Indocyanine Green (ICG) code = 1974-04) may cause fal sely elevated biliru bin results. Total and direct bilirubin must not be measured from s amples containing indo cyanine green. False el evation of total bilirubin can be seen in patient s with IgG concentrations above 28 g/L. [Automated message] The system [employer] generated this result transmitted ref erence range: <=1.2. T he reference range was not used to interpr et this result as normal/abnormal . Bili Direct (test See_Comment Indocyanin e Green (ICG) code = 1967-09) may cause fal sely elevated biliru bin results. Total and direct bilirubin must not be measured from s amples containing indo cyanine green. [Automat ed message] The sy stem which generated this result transmitted ref erence range: <=0.3. T he reference range was not used to interpr et this result as normal/abnormal . Bili Indirect (test See Note 0.0-0.9 Unable t o calculate code = 1971-) Indirect Bili ross result due to some par ameters are outside rep ortable range [facility] Lymllwo3314-61-73 20:32:16 Test Item Value Reference Range Interpretation Comments Total Protein (test code = 2885-2) 7.1 g/dL 6.4-8.3 [facility] Ztakhfp7544-62-41 20:32:16 Test Item Value Reference Range Interpretation Comments Total Protein (test code = 2885-2) 7.1 g/dL 6.4-8.3 [facility] Hsskcwe7620-14-96 20:32:16 Test Item Value Reference Range Interpretation Comments Total Protein (test code = 2885-2) 7.1 g/dL 6.4-8.3 [facility] Qidztvi3424-70-53 20:32:16 Test Item Value Reference Range Interpretation Comments Total Protein (test code = 2885-2) 7.1 g/dL 6.4-8.3 [facility] Mpteefk8789-36-84 20:32:16 Test Item Value Reference Range Interpretation Comments Total Protein (test code = 2885-2) 7.1 g/dL 6.4-8.3 [facility] Xkdslrgfzeo0038-90-23 20:32:14 Test Item Value Reference Range Interpretation Comments Alk Phos (test code = 6768-6) 90 U/L 40-129 [facility] Hkzvhydaism5501-37-59 20:32:14 Test Item Value Reference Range Interpretation Comments Alk Phos (test code = 6768-6) 90 U/L 40-129 [facility] Ijegrtrgzmd0021-65-84 20:32:14 Test Item Value Reference Range Interpretation Comments Alk Phos (test code = 6768-6) 90 U/L 40-129 [facility] Nongviusbnm8980-30-62 20:32:14 Test Item Value Reference Range Interpretation Comments Alk Phos (test code = 6768-6) 90 U/L 40-129 [facility] Njgxhowoeos1667-60-73 20:32:14 Test Item Value Reference Range Interpretation Comments Alk Phos (test code = 6768-6) 90 U/L 40-129 [place] 03113022-03-11 20:32:12 Test Item Value Reference Range Interpretation Comments ALT (test code = 13 U/L See_Comment [Automated message] The 1741-08) system which ge nerated this result transmit esteban reference range : <=41. The reference range was not used to interpr et this result as cuate l/abnormal. [place] 03113022-03-11 20:32:12 Test Item Value Reference Range Interpretation Comments ALT (test code = 13 U/L See_Comment [Automated message] The 1741-08) system which ge nerated this result transmit esteban reference range : <=41. The reference range was not used to interpr et this result as cuate l/abnormal. [place] 03113022-03-11 20:32:12 Test Item Value Reference Range Interpretation Comments ALT (test code = 13 U/L See_Comment [Automated message] The 1741-08) system which ge nerated this result transmit esteban reference range : <=41. The reference range was not used to interpr et this result as cuate l/abnormal. [place] 03113022-03-11 20:32:12 Test Item Value Reference Range Interpretation Comments ALT (test code = 13 U/L See_Comment [Automated message] The 1741-08) system which ge nerated this result transmit esteban reference range : <=41. The reference range was not used to interpr et this result as cuate l/abnormal. [place] 03113022-03-11 20:32:12 Test Item Value Reference Range Interpretation Comments ALT (test code = 13 U/L See_Comment [Automated message] The 1741-08) system which ge nerated this result transmit esteban reference range : <=41. The reference range was not used to interpr et this result as cuate l/abnormal. [facility] Romyf5970-90-87 20:32:07 Test Item Value Reference Range Interpretation Comments Albumin Lvl (test code 4.1 See_Comment [Aut omated message] The = 4763) system which ge nerated this result tra nsmitted reference range : 3.5 - 5.2 gm/dL. The refe rence range was not used to interpret this result as normal/abnormal . [facility] Dhawx0775-54-05 20:32:07 Test Item Value Reference Range Interpretation Comments Albumin Lvl (test code 4.1 See_Comment [Aut omated message] The = 4763) system which ge nerated this result tra nsmitted reference range : 3.5 - 5.2 gm/dL. The refe rence range was not used to interpret this result as normal/abnormal . [facility] Ftozl3743-66-54 20:32:07 Test Item Value Reference Range Interpretation Comments Albumin Lvl (test code 4.1 See_Comment [Aut omated message] The = 4763) system which ge nerated this result tra nsmitted reference range : 3.5 - 5.2 gm/dL. The refe rence range was not used to interpret this result as normal/abnormal . [facility] Jqxks7091-07-31 20:32:07 Test Item Value Reference Range Interpretation Comments Albumin Lvl (test code 4.1 See_Comment [Aut omated message] The = 4763) system which ge nerated this result tra nsmitted reference range : 3.5 - 5.2 gm/dL. The refe rence range was not used to interpret this result as normal/abnormal . [facility] Twthx1276-22-74 20:32:07 Test Item Value Reference Range Interpretation Comments Albumin Lvl (test code 4.1 See_Comment [Aut omated message] The = 4763) system which ge nerated this result tra nsmitted reference range : 3.5 - 5.2 gm/dL. The refe rence range was not used to interpret this result as normal/abnormal . [facility] Aminotransferase 2021-05-22 20:32:06 Test Item Value Reference Range Interpretation Comments AST (test code = 19 U/L See_Comment [Automated message] The 1919-10) system which ge nerated this result transmit esteban reference range : <=40. The reference range was not used to interpr et this result as cuate l/abnormal. [facility] Aminotransferase 2021-05-22 20:32:06 Test Item Value Reference Range Interpretation Comments AST (test code = 19 U/L See_Comment [Automated message] The 1919-10) system which ge nerated this result transmit esteban reference range : <=40. The reference range was not used to interpr et this result as cuate l/abnormal. [facility] Aminotransferase 2021-05-22 20:32:06 Test Item Value Reference Range Interpretation Comments AST (test code = 19 U/L See_Comment [Automated message] The 1919-10) system which ge nerated this result transmit esteban reference range : <=40. The reference range was not used to interpr et this result as cuate l/abnormal. [facility] Aminotransferase 2021-05-22 20:32:06 Test Item Value Reference Range Interpretation Comments AST (test code = 19 U/L See_Comment [Automated message] The 1919-10) system which ge nerated this result transmit esteban reference range : <=40. The reference range was not used to interpr et this result as cuate l/abnormal. [facility] Amin[facility] 2021-05-22 20:32:06 Test Item Value Reference Range Interpretation Comments AST (test code = 19 U/L See_Comment [Automated message] The 1919-10) system which ge nerated this result transmit esteban reference range : <=40. The reference range was not used to interpr et this result as cuate l/abnormal. [facility] 20:05:31 Test Item Value Reference Range Interpretation Comments Neutrophil % (test code = 77.0 % 42.0-66.0 H 770-8) Lymphocyte % (test code = 11.6 % 24.0-44.0 L 736-9) Monocyte % (test code = 9.2 % 2.0-7.0 H 5905-5) Eosinophil % (test code = 1.2 % 1.0-4.0 713-8) Basophil % (test code = 0.6 % 0.0-1.0 60651-9) IGRE % (test code = 0.4 % 0.0-0.4 IGRE % c ount 69408-9) includes Metamyelocytes, Myelocytes, and Promyelocytes. Neutrophil Abs (test code 5.16 K/uL 1.70-7.30 = 751-8) Lymphocyte Abs (test code 0.78 K/uL 1.00-4.80 L = 731-0) Monocyte Abs (test code = 0.62 K/uL 0.08-0.70 742-7) Eosinophil Abs (test code 0.08 K/uL 0.04-0.40 = 711-2) Basophil Abs (test code = 0.04 K/uL 0.00-0.10 704-7) IG Abs (test code = 0.03 K/uL 0.00-0.04 27748-3) Lab Interpretation (test Abnormal code = 10848-5) [facility] AwzbakXtuzesbukwia5484-19-95 20:05:31 Test Item Value Reference Range Interpretation Comments Neutrophil % (test code = 77.0 % 42.0-66.0 H 770-8) Lymphocyte % (test code = 11.6 % 24.0-44.0 L 736-9) Monocyte % (test code = 9.2 % 2.0-7.0 H 5905-5) Eosinophil % (test code = 1.2 % 1.0-4.0 713-8) Basophil % (test code = 0.6 % 0.0-1.0 60413-7) IGRE % (test code = 0.4 % 0.0-0.4 IGRE % c ount 63233-5) includes Metamyelocytes, Myelocytes, and Promyelocytes. Neutrophil Abs (test code 5.16 K/uL 1.70-7.30 = 751-8) Lymphocyte Abs (test code 0.78 K/uL 1.00-4.80 L = 731-0) Monocyte Abs (test code = 0.62 K/uL 0.08-0.70 742-7) Eosinophil Abs (test code 0.08 K/uL 0.04-0.40 = 711-2) Basophil Abs (test code = 0.04 K/uL 0.00-0.10 704-7) IG Abs (test code = 0.03 K/uL 0.00-0.04 98885-0) Lab Interpretation (test Abnormal code = 98442-5) [facility] 20:05:31 Test Item Value Reference Range Interpretation Comments Neutrophil % (test code = 77.0 % 42.0-66.0 H 770-8) Lymphocyte % (test code = 11.6 % 24.0-44.0 L 736-9) Monocyte % (test code = 9.2 % 2.0-7.0 H 5905-5) Eosinophil % (test code = 1.2 % 1.0-4.0 713-8) Basophil % (test code = 0.6 % 0.0-1.0 40090-5) IGRE % (test code = 0.4 % 0.0-0.4 IGRE % c ount 88660-9) includes Metamyelocytes, Myelocytes, and Promyelocytes. Neutrophil Abs (test code 5.16 K/uL 1.70-7.30 = 751-8) Lymphocyte Abs (test code 0.78 K/uL 1.00-4.80 L = 731-0) Monocyte Abs (test code = 0.62 K/uL 0.08-0.70 742-7) Eosinophil Abs (test code 0.08 K/uL 0.04-0.40 = 711-2) Basophil Abs (test code = 0.04 K/uL 0.00-0.10 704-7) IG Abs (test code = 0.03 K/uL 0.00-0.04 89956-4) Lab Interpretation (test Abnormal code = 92801-2) [facility] 20:05:31 Test Item Value Reference Range Interpretation Comments Neutrophil % (test code = 77.0 % 42.0-66.0 H 770-8) Lymphocyte % (test code = 11.6 % 24.0-44.0 L 736-9) Monocyte % (test code = 9.2 % 2.0-7.0 H 5905-5) Eosinophil % (test code = 1.2 % 1.0-4.0 713-8) Basophil % (test code = 0.6 % 0.0-1.0 00834-9) IGRE % (test code = 0.4 % 0.0-0.4 IGRE % c ount 24922-1) includes Metamyelocytes, Myelocytes, and Promyelocytes. Neutrophil Abs (test code 5.16 K/uL 1.70-7.30 = 751-8) Lymphocyte Abs (test code 0.78 K/uL 1.00-4.80 L = 731-0) Monocyte Abs (test code = 0.62 K/uL 0.08-0.70 742-7) Eosinophil Abs (test code 0.08 K/uL 0.04-0.40 = 711-2) Basophil Abs (test code = 0.04 K/uL 0.00-0.10 704-7) IG Abs (test code = 0.03 K/uL 0.00-0.04 83158-2) Lab Interpretation (test Abnormal code = 47112-5) [facility] ZjluxcTtswnnurcqxv7979-20-81 20:05:31 Test Item Value Reference Range Interpretation Comments Neutrophil % (test code = 77.0 % 42.0-66.0 H 770-8) Lymphocyte % (test code = 11.6 % 24.0-44.0 L 736-9) Monocyte % (test code = 9.2 % 2.0-7.0 H 5905-5) Eosinophil % (test code = 1.2 % 1.0-4.0 713-8) Basophil % (test code = 0.6 % 0.0-1.0 17674-3) IGRE % (test code = 0.4 % 0.0-0.4 IGRE % c ount 81653-0) includes Metamyelocytes, Myelocytes, and Promyelocytes. Neutrophil Abs (test code 5.16 K/uL 1.70-7.30 = 751-8) Lymphocyte Abs (test code 0.78 K/uL 1.00-4.80 L = 731-0) Monocyte Abs (test code = 0.62 K/uL 0.08-0.70 742-7) Eosinophil Abs (test code 0.08 K/uL 0.04-0.40 = 711-2) Basophil Abs (test code = 0.04 K/uL 0.00-0.10 704-7) IG Abs (test code = 0.03 K/uL 0.00-0.04 10031-2) Lab Interpretation (test Abnormal code = 85892-3) [facility].[id number] 20:05:16 Test Item Value Reference Range Interpretation Comments WBC (test code = 6.7 K/uL 4.0-11.0 6690-2) RBC (test code = 789-8) 4.57 See_Comment [Au tomated message] The system [employer] generated this result transmitted ref erence range: 4.50 - 6 .00 M/uL. The refer ence range was not u sed to interpret this result as normal/abnor mal. Hgb (test code = 718-7) 13.5 See_Comment L [Au tomated message] The system [employer] generated this result transmitted ref erence range: 14.0 - 1 8.0 gm/dL. The refe rence range was not u sed to interpret this result as normal/abnor mal. Hct (test code = 42.7 % 40.0-54.0 4544-3) MCV (test code = 787-2) 93 fL 82-98 MCH (test code = 785-6) 29.5 pg 27.0-31.0 MCHC (test code = 31.6 See_Comment [Automate d message] 786-4) The system [employer] generated this result transmitted ref erence range: 31.0 - 3 6.0 gm/dL. The refe rence range was not u sed to interpret this result as normal/abnor mal. RDW-SD (test code = 49.6 fL 35.1-46.3 H 59998-6) RDW-CV (test code = 14.6 % 12.0-15.5 788-0) Platelet count (test 172 K/uL 140-440 code = 777-3) MPV (test code = 11.1 fL 4.0-10.4 H 94558-7) INRBC (test code = 0.0 % See_Comment The INRBC (instrument 34257-0) NRBC) value ref lects the enumeration of nucleated red b lood cells contained in a 200uL sampleof whole blood analyzed by the instrument. Thi s value maydiffer from the NRBC value repo rted in a manual differential,wh ich is based on a 100 cell differential. [Automated mess age] The system [employer] generated this result transmitted ref erence range: <=0.0. T he reference range was not used to int erpret this result as normal/abnormal . Lab Interpretation Abnormal (test code = 91642-6) [facility].[id number] 20:05:16 Test Item Value Reference Range Interpretation Comments WBC (test code = 6.7 K/uL 4.0-11.0 6690-2) RBC (test code = 789-8) 4.57 See_Comment [Au tomated message] The system [employer] generated this result transmitted ref erence range: 4.50 - 6 .00 M/uL. The refer ence range was not u sed to interpret this result as normal/abnor mal. Hgb (test code = 718-7) 13.5 See_Comment L [Au tomated message] The system [employer] generated this result transmitted ref erence range: 14.0 - 1 8.0 gm/dL. The refe rence range was not u sed to interpret this result as normal/abnor mal. Hct (test code = 42.7 % 40.0-54.0 4544-3) MCV (test code = 787-2) 93 fL 82-98 MCH (test code = 785-6) 29.5 pg 27.0-31.0 MCHC (test code = 31.6 See_Comment [Automate d message] 786-4) The system [employer] generated this result transmitted ref erence range: 31.0 - 3 6.0 gm/dL. The refe rence range was not u sed to interpret this result as normal/abnor mal. RDW-SD (test code = 49.6 fL 35.1-46.3 H 66446-9) RDW-CV (test code = 14.6 % 12.0-15.5 788-0) Platelet count (test 172 K/uL 140-440 code = 777-3) MPV (test code = 11.1 fL 4.0-10.4 H 54167-5) INRBC (test code = 0.0 % See_Comment The INRBC (instrument 86819-6) NRBC) value ref lects the enumeration of nucleated red b lood cells contained in a 200uL sampleof whole blood analyzed by the instrument. Thi s value maydiffer from the NRBC value repo rted in a manual differential,wh ich is based on a 100 cell differential. [Automated mess age] The system [employer] generated this result transmitted ref erence range: <=0.0. T he reference range was not used to int erpret this result as normal/abnormal . Lab Interpretation Abnormal (test code = 58188-7) [facility].[id number] 20:05:16 Test Item Value Reference Range Interpretation Comments WBC (test code = 6.7 K/uL 4.0-11.0 6690-2) RBC (test code = 789-8) 4.57 See_Comment [Au tomated message] The system [employer] generated this result transmitted ref erence range: 4.50 - 6 .00 M/uL. The refer ence range was not u sed to interpret this result as normal/abnor mal. Hgb (test code = 718-7) 13.5 See_Comment L [Au tomated message] The system [employer] generated this result transmitted ref erence range: 14.0 - 1 8.0 gm/dL. The refe rence range was not u sed to interpret this result as normal/abnor mal. Hct (test code = 42.7 % 40.0-54.0 4544-3) MCV (test code = 787-2) 93 fL 82-98 MCH (test code = 785-6) 29.5 pg 27.0-31.0 MCHC (test code = 31.6 See_Comment [Automate d message] 786-4) The system [employer] generated this result transmitted ref erence range: 31.0 - 3 6.0 gm/dL. The refe rence range was not u sed to interpret this result as normal/abnor mal. RDW-SD (test code = 49.6 fL 35.1-46.3 H 26583-5) RDW-CV (test code = 14.6 % 12.0-15.5 788-0) Platelet count (test 172 K/uL 140-440 code = 777-3) MPV (test code = 11.1 fL 4.0-10.4 H 98567-5) INRBC (test code = 0.0 % See_Comment The INRBC (instrument 31460-0) NRBC) value ref lects the enumeration of nucleated red b lood cells contained in a 200uL sampleof whole blood analyzed by the instrument. Thi s value maydiffer from the NRBC value repo rted in a manual differential,wh ich is based on a 100 cell differential. [Automated mess age] The system [employer] generated this result transmitted ref erence range: <=0.0. T he reference range was not used to int erpret this result as normal/abnormal . Lab Interpretation Abnormal (test code = 27963-7) [facility].[id number] 20:05:16 Test Item Value Reference Range Interpretation Comments WBC (test code = 6.7 K/uL 4.0-11.0 6690-2) RBC (test code = 789-8) 4.57 See_Comment [Au tomated message] The system [employer] generated this result transmitted ref erence range: 4.50 - 6 .00 M/uL. The refer ence range was not u sed to interpret this result as normal/abnor mal. Hgb (test code = 718-7) 13.5 See_Comment L [Au tomated message] The system [employer] generated this result transmitted ref erence range: 14.0 - 1 8.0 gm/dL. The refe rence range was not u sed to interpret this result as normal/abnor mal. Hct (test code = 42.7 % 40.0-54.0 4544-3) MCV (test code = 787-2) 93 fL 82-98 MCH (test code = 785-6) 29.5 pg 27.0-31.0 MCHC (test code = 31.6 See_Comment [Automate d message] 786-4) The system [employer] generated this result transmitted ref erence range: 31.0 - 3 6.0 gm/dL. The refe rence range was not u sed to interpret this result as normal/abnor mal. RDW-SD (test code = 49.6 fL 35.1-46.3 H 71234-7) RDW-CV (test code = 14.6 % 12.0-15.5 788-0) Platelet count (test 172 K/uL 140-440 code = 777-3) MPV (test code = 11.1 fL 4.0-10.4 H 95546-7) INRBC (test code = 0.0 % See_Comment The INRBC (instrument 52783-8) NRBC) value ref lects the enumeration of nucleated red b lood cells contained in a 200uL sampleof whole blood analyzed by the instrument. Thi s value maydiffer from the NRBC value repo rted in a manual differential,wh ich is based on a 100 cell differential. [Automated mess age] The system [employer] generated this result transmitted ref erence range: <=0.0. T he reference range was not used to int erpret this result as normal/abnormal . Lab Interpretation Abnormal (test code = 29406-9) [facility].[id number] 20:05:16 Test Item Value Reference Range Interpretation Comments WBC (test code = 6.7 K/uL 4.0-11.0 6690-2) RBC (test code = 789-8) 4.57 See_Comment [Au tomated message] The system [employer] generated this result transmitted ref erence range: 4.50 - 6 .00 M/uL. The refer ence range was not u sed to interpret this result as normal/abnor mal. Hgb (test code = 718-7) 13.5 See_Comment L [Au tomated message] The system [employer] generated this result transmitted ref erence range: 14.0 - 1 8.0 gm/dL. The refe rence range was not u sed to interpret this result as normal/abnor mal. Hct (test code = 42.7 % 40.0-54.0 4544-3) MCV (test code = 787-2) 93 fL 82-98 MCH (test code = 785-6) 29.5 pg 27.0-31.0 MCHC (test code = 31.6 See_Comment [Automate d message] 786-4) The system [employer] generated this result transmitted ref erence range: 31.0 - 3 6.0 gm/dL. The refe rence range was not u sed to interpret this result as normal/abnor mal. RDW-SD (test code = 49.6 fL 35.1-46.3 H 96259-3) RDW-CV (test code = 14.6 % 12.0-15.5 788-0) Platelet count (test 172 K/uL 140-440 code = 777-3) MPV (test code = 11.1 fL 4.0-10.4 H 53024-4) INRBC (test code = 0.0 % See_Comment The INRBC (instrument 64206-0) NRBC) value ref lects the enumeration of nucleated red b lood cells contained in a 200uL sampleof whole blood analyzed by the instrument. Thi s value maydiffer from the NRBC value repo rted in a manual differential,wh ich is based on a 100 cell differential. [Automated mess age] The system [employer] generated this result transmitted ref erence range: <=0.0. T he reference range was not used to int erpret this result as normal/abnormal . Lab Interpretation Abnormal (test code = 05699-3) [facility] Troponin [id number] 20:01:26 Test Item Value Reference Range Interpretation Comments POC CTNI (test code 0.17 ng/mL 0.00-0.08 H This cTn I test is = 27660-1) performed by th e Qvnat-vw-Lrmt analyzer method ,and the result may be different from the Clinical LaboratoryMetho d. Abnormal test r esults are recommended for confirmatorytes t by Clinical labora tory method. Patient s with normal testresu lts but clinically suspicious for acute myocardial infarctionshoul d be tested by Clini adilene Laboratory meth od. Method descript ion: The Troponin I (cTnI) uses a two-site enzyme-linked immunosorbent a ssay (SNEHA) method. Antibodies spec [facility] troponin I (cTn I) are located on an electrochemical sensor fabricat ed on a silicon chip. The whole blood is brought into co ntact with the sensor s allowing the en zyme conjugate to di ssolve into the sample . The enzyme bound to the antibody/antige n/anti body sandwich c leaves the substrate releasing an electrochemical ly detectable prod uct. The electrochem ical (amperometric) sensor measures this e nzyme product which i s proportional to the concentration o f cTnI within the [facility]. POC Clean Dev (test Yes code = 6672) Performing Lab (test [facility] mpus code = 28122) [facility], [address] [place] [address]; Project Production Engineer: Nancie Stafford MD Lab Interpretation Abnormal (test code = 55096-0) [facility] Troponin [id number] 20:01:26 Test Item Value Reference Range Interpretation Comments POC CTNI (test code 0.17 ng/mL 0.00-0.08 H This cTn I test is = 13264-0) performed by e Ombcg-sc-Rxoc analyzer method ,and the result may be different from the Clinical LaboratoryMetho d. Abnormal test r esults are recommended for confirmatorytes t by Clinical labora tory method. Patient s with normal testresu lts but clinically suspicious for acute myocardial infarctionshoul d be tested by Clini adilene Laboratory meth od. Method descript ion: The Troponin I (cTnI) uses a two-site enzyme-linked immunosorbent a ssay (SNEHA) method. Antibodies spec [facility] troponin I (cTn I) are located on an electrochemical sensor fabricat ed on a silicon chip. The whole blood is brought into co ntact with the sensor s allowing the en zyme conjugate to di ssolve into the sample . The enzyme bound to the antibody/antige n/anti body sandwich c leaves the substrate releasing an electrochemical ly detectable prod uct. The electrochem ical (amperometric) sensor measures this e nzyme product which i s proportional to the concentration o f cTnI within the samp le. POC Clean Dev (test Yes code = 6672) Performing Lab (test [facility] [place] mpus code = 39923) [facility], [address] [place] [address]; Project Production Engineer: Nancie Stafford MD Lab Interpretation Abnormal (test code = 45011-4) [facility] Troponin [id number] 20:01:26 Test Item Value Reference Range Interpretation Comments POC CTNI (test code 0.17 ng/mL 0.00-0.08 H This cTn I test is = 79838-8) performed by e Hypch-pe-Byig analyzer method ,and the result may be different from the Clinical LaboratoryMetho d. Abnormal test r esults are recommended for confirmatorytes t by Clinical labora tory method. Patient s with normal testresu lts but clinically suspicious for acute myocardial infarctionshoul d be tested by Clini adilene Laboratory meth od. Method descript ion: The Troponin I (cTnI) uses a two-site enzyme-linked immunosorbent a ssay (SNEHA) method. Antibodies spec [facility] troponin I (cTn I) are located on an electrochemical sensor fabricat ed on a silicon chip. The whole blood is brought into co ntact with the sensor s allowing the en zyme conjugate to di ssolve into the sample . The enzyme bound to the antibody/antige n/anti body sandwich c leaves the substrate releasing an electrochemical ly detectable prod uct. The electrochem ical (amperometric) sensor measures this e nzyme product which i s proportional to the concentration o f cTnI within the samp le. POC Clean Dev (test Yes code = 6672) Performing Lab (test [facility] [place] mpus code = 61117) [facility] Cli nical Lab, [address] [place] [address] [place] [address]; Project Production Engineer: Nancie Stafford MD Lab Interpretation Abnormal (test code = 68537-2) [facility] Troponin [id number] 20:01:26 Test Item Value Reference Range Interpretation Comments POC CTNI (test code 0.17 ng/mL 0.00-0.08 H This cTn I test is = 93664-4) performed by th e Czgie-fy-Nohs analyzer method ,and the result may be different from the Clinical LaboratoryMetho d. Abnormal test r esults are recommended for confirmatorytes t by Clinical labora tory method. Patient s with normal testresu lts but clinically suspicious for acute myocardial infarctionshoul d be tested by Clini adilene Laboratory meth od. Method descript ion: The Troponin I (cTnI) uses a two-site enzyme-linked immunosorbent a ssay (SNEHA) method. Antibodies spec [facility] for human cardi ac troponin I (cTn I) are located on an electrochemical sensor fabricat ed on a silicon chip. The whole blood is brought into co ntact with the sensor s allowing the en zyme conjugate to di ssolve into the sample . The enzyme bound to the antibody/antige n/anti body sandwich c leaves the substrate releasing an electrochemical ly detectable prod uct. The electrochem ical (amperometric) sensor measures this e nzyme product which i s proportional to the concentration o f cTnI within the samp le. POC Clean Dev (test Yes code = 6672) Performing Lab (test [facility] [place] mpus code = 72243) [facility] Cli nical Lab, [address] [place] [id number]; Project Production Engineer: Nancie Stafford MD Lab Interpretation Abnormal (test code = 24644-6) [facility] Troponin [id number] 20:01:26 Test Item Value Reference Range Interpretation Comments POC CTNI (test code 0.17 ng/mL 0.00-0.08 H This cTn I test is = 78618-7) performed by e Qdlko-br-Qgmx analyzer method ,and the result may be different from the Clinical LaboratoryMetho d. Abnormal test r esults are recommended for confirmatorytes t by Clinical labora tory method. Patient s with normal testresu lts but clinically suspicious for acute myocardial infarctionshoul d be tested by Clini adilene Laboratory meth od. Method descript ion: The Troponin I (cTnI) uses a two-site enzyme-linked immunosorbent a ssay (SNEHA) method. Antibodies spec ifi for human cardi ac troponin I (cTn I) are located on an electrochemical sensor fabricat ed on a silicon chip. The whole blood is brought into co ntact with the sensor s allowing the en zyme conjugate to di ssolve into the sample . The enzyme bound to the antibody/antige n/anti body sandwich c leaves the substrate releasing an electrochemical ly detectable prod uct. The electrochem ical (amperometric) sensor measures this e nzyme product which i s proportional to the concentration o f cTnI within the samp le. POC Clean Dev (test Yes code = 6672) Performing Lab (test [facility] [place] mpus code = 18379) [facility] Cli nical Lab, [address], [place] [address]; Project Production Engineer: Nancie Stafford MD Lab Interpretation Abnormal (test code = 98810-4) [facility] BronsonCOMPREHENSIVE METABOLIC PANEL 2020-06-30 00:00:00 Test Item Value Reference Range Interpretation Comments GLUCOSE (test code = 2217) 95 MG/DL BUN (test code = 2208) 24 MG/DL CREATININE (test code = 2214) 0.83 MG/DL eGFR AMER. (test code 98 ML/MIN/1.73 = 90260) eGFR NON- AMER. (test 84 ML/MIN/1.73 code = 76597) CALC BUN/CREAT (test code = 29 RATIO 2235) SODIUM (test code = 2231) 141 MEQ/L POTASSIUM (test code = 2228) 4.5 MEQ/L CHLORIDE (test code = 2215) 103 MEQ/L CARBON DIOXIDE (test code = 26 MEQ/L 2205) CALCIUM (test code = 2209) 9.1 MG/DL PROTEIN, TOTAL (test code = 6.9 G/DL 2228) ALBUMIN (test code = 2201) 4.4 G/DL CALC GLOBULIN (test code = 2.5 G/DL 2240) CALC A/G RATIO (test code = 1.8 RATIO 2234) BILIRUBIN, TOTAL (test code = 0.3 MG/DL 2206) ALKALINE PHOSPHATASE (test 81 U/L code = 2204) AST (test code = 2218) 29 U/L ALT (test code = 2219) 22 U/L COMPREHENSIVE METABOLIC [id number] 00:00:00 Test Item Value Reference Range Interpretation Comments GLUCOSE (test code = 2217) 95 MG/DL BUN (test code = 2208) 24 MG/DL CREATININE (test code = 2214) 0.83 MG/DL eGFR AMER. (test code 98 ML/MIN/1.73 = 76836) eGFR NON- AMER. (test 84 ML/MIN/1.73 code = 21014) CALC BUN/CREAT (test code = 29 RATIO 2235) SODIUM (test code = 2231) 141 MEQ/L POTASSIUM (test code = 2228) 4.5 MEQ/L CHLORIDE (test code = 2215) 103 MEQ/L CARBON DIOXIDE (test code = 26 MEQ/L 220) CALCIUM (test code = 2209) 9.1 MG/DL PROTEIN, TOTAL (test code = 6.9 G/DL 2228) ALBUMIN (test code = 2201) 4.4 G/DL CALC GLOBULIN (test code = 2.5 G/DL 224) CALC A/G RATIO (test code = 1.8 RATIO 2234) BILIRUBIN, TOTAL (test code = 0.3 MG/DL 2206) ALKALINE PHOSPHATASE (test 81 U/L code = 2204) AST (test code = 2218) 29 U/L ALT (test code = 2219) 22 U/L LIPID [id number] 00:00:00 Test Item Value Reference Range Interpretation Comments CHOLESTEROL (test code = 2210) 186 MG/DL TRIGLYCERIDES (test code = 2232) 102 MG/DL HDL CHOLESTEROL (test code = 2220) 64 MG/DL CALC LDL CHOL (test code = 2237) 102 MG/DL RISK RATIO LDL/HDL (test code = 1.59 RATIO 2238) LIPID [id number] 00:00:00 Test Item Value Reference Range Interpretation Comments CHOLESTEROL (test code = 2210) 186 MG/DL TRIGLYCERIDES (test code = 2232) 102 MG/DL HDL CHOLESTEROL (test code = 2220) 64 MG/DL CALC LDL CHOL (test code = 2237) 102 MG/DL RISK RATIO LDL/HDL (test code = 1.59 RATIO 2238) COMPREHENSIVE METABOLIC [id number] 00:00:00 Test Item Value Reference Range Interpretation Comments GLUCOSE (test code = 2217) 95 MG/DL BUN (test code = 2208) 24 MG/DL CREATININE (test code = 2214) 0.83 MG/DL eGFR AMER. (test code 98 ML/MIN/1.73 = 81277) eGFR NON- AMER. (test 84 ML/MIN/1.73 code = 59309) CALC BUN/CREAT (test code = 29 RATIO 2235) SODIUM (test code = 2231) 141 MEQ/L POTASSIUM (test code = 2228) 4.5 MEQ/L CHLORIDE (test code = 2215) 103 MEQ/L CARBON DIOXIDE (test code = 26 MEQ/L 220) CALCIUM (test code = 2209) 9.1 MG/DL PROTEIN, TOTAL (test code = 6.9 G/DL 2229) ALBUMIN (test code = 2201) 4.4 G/DL CALC GLOBULIN (test code = 2.5 G/DL 2240) CALC A/G RATIO (test code = 1.8 RATIO 2234) BILIRUBIN, TOTAL (test code = 0.3 MG/DL 2206) ALKALINE PHOSPHATASE (test 81 U/L code = 2204) AST (test code = 2218) 29 U/L ALT (test code = 2219) 22 U/L COMPREHENSIVE METABOLIC [id number] 00:00:00 Test Item Value Reference Range Interpretation Comments GLUCOSE (test code = 2217) 95 MG/DL BUN (test code = 2208) 24 MG/DL CREATININE (test code = 2214) 0.83 MG/DL eGFR AMER. (test code 98 ML/MIN/1.73 = 84826) eGFR NON- AMER. (test 84 ML/MIN/1.73 code = 92769) CALC BUN/CREAT (test code = 29 RATIO 2235) SODIUM (test code = 2231) 141 MEQ/L POTASSIUM (test code = 2228) 4.5 MEQ/L CHLORIDE (test code = 2215) 103 MEQ/L CARBON DIOXIDE (test code = 26 MEQ/L 2205) CALCIUM (test code = 2209) 9.1 MG/DL PROTEIN, TOTAL (test code = 6.9 G/DL 2229) ALBUMIN (test code = 2201) 4.4 G/DL CALC GLOBULIN (test code = 2.5 G/DL 2240) CALC A/G RATIO (test code = 1.8 RATIO 2234) BILIRUBIN, TOTAL (test code = 0.3 MG/DL 2206) ALKALINE PHOSPHATASE (test 81 U/L code = 2204) AST (test code = 2218) 29 U/L ALT (test code = 2219) 22 U/L LIPID [id number] 00:00:00 Test Item Value Reference Range Interpretation Comments CHOLESTEROL (test code = 2210) 186 MG/DL TRIGLYCERIDES (test code = 2232) 102 MG/DL HDL CHOLESTEROL (test code = 2220) 64 MG/DL CALC LDL CHOL (test code = 2237) 102 MG/DL RISK RATIO LDL/HDL (test code = 1.59 RATIO 2238) LIPID [id number] 00:00:00 Test Item Value Reference Range Interpretation Comments CHOLESTEROL (test code = 2210) 186 MG/DL TRIGLYCERIDES (test code = 2232) 102 MG/DL HDL CHOLESTEROL (test code = 2220) 64 MG/DL CALC LDL CHOL (test code = 2237) 102 MG/DL RISK RATIO LDL/HDL (test code = 1.59 RATIO 2238) CBC W/AUTO [id number] 00:00:00 Test Item Value Reference Range Interpretation Comments WBC (test code = 1001) 7.1 K/UL RBC (test code = 1002) 4.68 M/UL HEMOGLOBIN (test code = 1003) 13.8 G/DL HEMATOCRIT (test code = 1004) 42.4 % MCV (test code = 1005) 90.6 fL MCH (test code = 1006) 29.5 PG MCHC (test code = 1007) 32.5 G/DL RDW (test code = 1038) 13.2 % NEUTROPHILS (test code = 1008) 72.2 % LYMPHOCYTES (test code = 1010) 13.0 % MONOCYTES (test code = 1011) 11.2 % EOSINOPHILS (test code = 1012) 2.8 % BASOPHILS (test code = 1013) 0.8 % PLATELET COUNT (test code = 1015) 214 K/UL CBC W/AUTO [id number] 00:00:00 Test Item Value Reference Range Interpretation Comments WBC (test code = 1001) 7.1 K/UL RBC (test code = 1002) 4.68 M/UL HEMOGLOBIN (test code = 1003) 13.8 G/DL HEMATOCRIT (test code = 1004) 42.4 % MCV (test code = 1005) 90.6 fL MCH (test code = 1006) 29.5 PG MCHC (test code = 1007) 32.5 G/DL RDW (test code = 1038) 13.2 % NEUTROPHILS (test code = 1008) 72.2 % LYMPHOCYTES (test code = 1010) 13.0 % MONOCYTES (test code = 1011) 11.2 % EOSINOPHILS (test code = 1012) 2.8 % BASOPHILS (test code = 1013) 0.8 % PLATELET COUNT (test code = 1015) 214 K/UL CBC W/AUTO [id number] 00:00:00 Test Item Value Reference Range Interpretation Comments WBC (test code = 1001) 7.1 K/UL RBC (test code = 1002) 4.68 M/UL HEMOGLOBIN (test code = 1003) 13.8 G/DL HEMATOCRIT (test code = 1004) 42.4 % MCV (test code = 1005) 90.6 fL MCH (test code = 1006) 29.5 PG MCHC (test code = 1007) 32.5 G/DL RDW (test code = 1038) 13.2 % NEUTROPHILS (test code = 1008) 72.2 % LYMPHOCYTES (test code = 1010) 13.0 % MONOCYTES (test code = 1011) 11.2 % EOSINOPHILS (test code = 1012) 2.8 % BASOPHILS (test code = 1013) 0.8 % PLATELET COUNT (test code = 1015) 214 K/UL CBC W/AUTO [id number] 00:00:00 Test Item Value Reference Range Interpretation Comments WBC (test code = 1001) 7.1 K/UL RBC (test code = 1002) 4.68 M/UL HEMOGLOBIN (test code = 1003) 13.8 G/DL HEMATOCRIT (test code = 1004) 42.4 % MCV (test code = 1005) 90.6 fL MCH (test code = 1006) 29.5 PG MCHC (test code = 1007) 32.5 G/DL RDW (test code = 1038) 13.2 % NEUTROPHILS (test code = 1008) 72.2 % LYMPHOCYTES (test code = 1010) 13.0 % MONOCYTES (test code = 1011) 11.2 % EOSINOPHILS (test code = 1012) 2.8 % BASOPHILS (test code = 1013) 0.8 % PLATELET COUNT (test code = 1015) 214 K/UL CBC W/AUTO [id number] 00:00:00 Test Item Value Reference Range Interpretation Comments WBC (test code = 1001) 7.1 K/UL RBC (test code = 1002) 4.68 M/UL HEMOGLOBIN (test code = 1003) 13.8 G/DL HEMATOCRIT (test code = 1004) 42.4 % MCV (test code = 1005) 90.6 fL MCH (test code = 1006) 29.5 PG MCHC (test code = 1007) 32.5 G/DL RDW (test code = 1038) 13.2 % NEUTROPHILS (test code = 1008) 72.2 % LYMPHOCYTES (test code = 1010) 13.0 % MONOCYTES (test code = 1011) 11.2 % EOSINOPHILS (test code = 1012) 2.8 % BASOPHILS (test code = 1013) 0.8 % PLATELET COUNT (test code = 1015) 214 K/UL CBC W/AUTO [id number] 00:00:00 Test Item Value Reference Range Interpretation Comments WBC (test code = 1001) 7.1 K/UL RBC (test code = 1002) 4.68 M/UL HEMOGLOBIN (test code = 1003) 13.8 G/DL HEMATOCRIT (test code = 1004) 42.4 % MCV (test code = 1005) 90.6 fL MCH (test code = 1006) 29.5 PG MCHC (test code = 1007) 32.5 G/DL RDW (test code = 1038) 13.2 % NEUTROPHILS (test code = 1008) 72.2 % LYMPHOCYTES (test code = 1010) 13.0 % MONOCYTES (test code = 1011) 11.2 % EOSINOPHILS (test code = 1012) 2.8 % BASOPHILS (test code = 1013) 0.8 % PLATELET COUNT (test code = 1015) 214 K/UL HEMOGLOBIN [id number] 00:00:00 Test Item Value Reference Range Interpretation Comments HEMOGLOBIN A1c (test code = 26076) 5.5 % HEMOGLOBIN [id number] 00:00:00 Test Item Value Reference Range Interpretation Comments HEMOGLOBIN A1c (test code = 58167) 5.5 % HEMOGLOBIN [id number] 00:00:00 Test Item Value Reference Range Interpretation Comments HEMOGLOBIN A1c (test code = 86388) 5.5 % CBC W/AUTO [id number] 00:00:00 Test Item Value Reference Range Interpretation Comments WBC (test code = 1001) 5.3 K/UL RBC (test code = 1002) 4.58 M/UL HEMOGLOBIN (test code = 1003) 14.1 G/DL HEMATOCRIT (test code = 1004) 41.1 % MCV (test code = 1005) 89.7 fL MCH (test code = 1006) 30.8 PG MCHC (test code = 1007) 34.3 G/DL RDW (test code = 1038) 12.7 % NEUTROPHILS (test code = 1008) 68.0 % LYMPHOCYTES (test code = 1010) 16.3 % MONOCYTES (test code = 1011) 12.5 % EOSINOPHILS (test code = 1012) 2.1 % BASOPHILS (test code = 1013) 1.1 % PLATELET COUNT (test code = 1015) 172 K/UL CBC W/AUTO [id number] 00:00:00 Test Item Value Reference Range Interpretation Comments WBC (test code = 1001) 5.3 K/UL RBC (test code = 1002) 4.58 M/UL HEMOGLOBIN (test code = 1003) 14.1 G/DL HEMATOCRIT (test code = 1004) 41.1 % MCV (test code = 1005) 89.7 fL MCH (test code = 1006) 30.8 PG MCHC (test code = 1007) 34.3 G/DL RDW (test code = 1038) 12.7 % NEUTROPHILS (test code = 1008) 68.0 % LYMPHOCYTES (test code = 1010) 16.3 % MONOCYTES (test code = 1011) 12.5 % EOSINOPHILS (test code = 1012) 2.1 % BASOPHILS (test code = 1013) 1.1 % PLATELET COUNT (test code = 1015) 172 K/UL CBC W/AUTO [id number] 00:00:00 Test Item Value Reference Range Interpretation Comments WBC (test code = 1001) 5.3 K/UL RBC (test code = 1002) 4.58 M/UL HEMOGLOBIN (test code = 1003) 14.1 G/DL HEMATOCRIT (test code = 1004) 41.1 % MCV (test code = 1005) 89.7 fL MCH (test code = 1006) 30.8 PG MCHC (test code = 1007) 34.3 G/DL RDW (test code = 1038) 12.7 % NEUTROPHILS (test code = 1008) 68.0 % LYMPHOCYTES (test code = 1010) 16.3 % MONOCYTES (test code = 1011) 12.5 % EOSINOPHILS (test code = 1012) 2.1 % BASOPHILS (test code = 1013) 1.1 % PLATELET COUNT (test code = 1015) 172 K/UL COMPREHENSIVE METABOLIC [id number] 00:00:00 Test Item Value Reference Range Interpretation Comments GLUCOSE (test code = 2217) 98 MG/DL BUN (test code = 2208) 15 MG/DL CREATININE (test code = 2214) 0.86 MG/DL eGFR AMER. (test code 96 ML/MIN/1.73 = 55323) eGFR NON- AMER. (test 83 ML/MIN/1.73 code = 55634) CALC BUN/CREAT (test code = 17 RATIO 2235) SODIUM (test code = 2231) 141 MEQ/L POTASSIUM (test code = 2228) 4.7 MEQ/L CHLORIDE (test code = 2215) 105 MEQ/L CARBON DIOXIDE (test code = 27 MEQ/L 2206) CALCIUM (test code = 2209) 9.4 MG/DL PROTEIN, TOTAL (test code = 7.0 G/DL 2228) ALBUMIN (test code = 2201) 4.3 G/DL CALC GLOBULIN (test code = 2.7 G/DL 2240) CALC A/G RATIO (test code = 1.6 RATIO 4) BILIRUBIN, TOTAL (test code = 0.6 MG/DL 2206) ALKALINE PHOSPHATASE (test 89 U/L code = 2204) AST (test code = 2218) 22 U/L ALT (test code = 2219) 17 U/L COMPREHENSIVE METABOLIC [id number] 00:00:00 Test Item Value Reference Range Interpretation Comments GLUCOSE (test code = 2217) 98 MG/DL BUN (test code = 2208) 15 MG/DL CREATININE (test code = 2214) 0.86 MG/DL eGFR AMER. (test code 96 ML/MIN/1.73 = 11097) eGFR NON- AMER. (test 83 ML/MIN/1.73 code = 71428) CALC BUN/CREAT (test code = 17 RATIO 2235) SODIUM (test code = 2231) 141 MEQ/L POTASSIUM (test code = 2228) 4.7 MEQ/L CHLORIDE (test code = 2215) 105 MEQ/L CARBON DIOXIDE (test code = 27 MEQ/L 2206) CALCIUM (test code = 2209) 9.4 MG/DL PROTEIN, TOTAL (test code = 7.0 G/DL 2228) ALBUMIN (test code = 2201) 4.3 G/DL CALC GLOBULIN (test code = 2.7 G/DL 2240) CALC A/G RATIO (test code = 1.6 RATIO 2234) BILIRUBIN, TOTAL (test code = 0.6 MG/DL 2206) ALKALINE PHOSPHATASE (test 89 U/L code = 2204) AST (test code = 2218) 22 U/L ALT (test code = 2219) 17 U/L LIPID [id number] 00:00:00 Test Item Value Reference Range Interpretation Comments CHOLESTEROL (test code = 2210) 147 MG/DL TRIGLYCERIDES (test code = 2232) 82 MG/DL HDL CHOLESTEROL (test code = 2220) 58 MG/DL CALC LDL CHOL (test code = 2237) 73 MG/DL RISK RATIO LDL/HDL (test code = 1.26 RATIO 2238) LIPID [id number] 00:00:00 Test Item Value Reference Range Interpretation Comments CHOLESTEROL (test code = 2210) 147 MG/DL TRIGLYCERIDES (test code = 2232) 82 MG/DL HDL CHOLESTEROL (test code = 2220) 58 MG/DL CALC LDL CHOL (test code = 2237) 73 MG/DL RISK RATIO LDL/HDL (test code = 1.26 RATIO 2238) PSA, [id number] 00:00:00 Test Item Value Reference Range Interpretation Comments PSA, TOTAL (test code = 2606) 16.70 NG/ML PSA, [id number] 00:00:00 Test Item Value Reference Range Interpretation Comments PSA, TOTAL (test code = 2606) 16.70 NG/ML PSA, [id number] 00:00:00 Test Item Value Reference Range Interpretation Comments PSA, TOTAL (test code = 2606) 16.70 NG/ML HEMOGLOBIN [id number] 00:00:00 Test Item Value Reference Range Interpretation Comments HEMOGLOBIN A1c (test code = 39546) 5.5 % HEMOGLOBIN [id number] 00:00:00 Test Item Value Reference Range Interpretation Comments HEMOGLOBIN A1c (test code = 60943) 5.5 % HEMOGLOBIN [id number] 00:00:00 Test Item Value Reference Range Interpretation Comments HEMOGLOBIN A1c (test code = 83967) 5.5 % CBC W/AUTO [id number] 00:00:00 Test Item Value Reference Range Interpretation Comments WBC (test code = 1001) 5.3 K/UL RBC (test code = 1002) 4.58 M/UL HEMOGLOBIN (test code = 1003) 14.1 G/DL HEMATOCRIT (test code = 1004) 41.1 % MCV (test code = 1005) 89.7 fL MCH (test code = 1006) 30.8 PG MCHC (test code = 1007) 34.3 G/DL RDW (test code = 1038) 12.7 % NEUTROPHILS (test code = 1008) 68.0 % LYMPHOCYTES (test code = 1010) 16.3 % MONOCYTES (test code = 1011) 12.5 % EOSINOPHILS (test code = 1012) 2.1 % BASOPHILS (test code = 1013) 1.1 % PLATELET COUNT (test code = 1015) 172 K/UL CBC W/AUTO [id number] 00:00:00 Test Item Value Reference Range Interpretation Comments WBC (test code = 1001) 5.3 K/UL RBC (test code = 1002) 4.58 M/UL HEMOGLOBIN (test code = 1003) 14.1 G/DL HEMATOCRIT (test code = 1004) 41.1 % MCV (test code = 1005) 89.7 fL MCH (test code = 1006) 30.8 PG MCHC (test code = 1007) 34.3 G/DL RDW (test code = 1038) 12.7 % NEUTROPHILS (test code = 1008) 68.0 % LYMPHOCYTES (test code = 1010) 16.3 % MONOCYTES (test code = 1011) 12.5 % EOSINOPHILS (test code = 1012) 2.1 % BASOPHILS (test code = 1013) 1.1 % PLATELET COUNT (test code = 1015) 172 K/UL CBC W/AUTO [id number] 00:00:00 Test Item Value Reference Range Interpretation Comments WBC (test code = 1001) 5.3 K/UL RBC (test code = 1002) 4.58 M/UL HEMOGLOBIN (test code = 1003) 14.1 G/DL HEMATOCRIT (test code = 1004) 41.1 % MCV (test code = 1005) 89.7 fL MCH (test code = 1006) 30.8 PG MCHC (test code = 1007) 34.3 G/DL RDW (test code = 1038) 12.7 % NEUTROPHILS (test code = 1008) 68.0 % LYMPHOCYTES (test code = 1010) 16.3 % MONOCYTES (test code = 1011) 12.5 % EOSINOPHILS (test code = 1012) 2.1 % BASOPHILS (test code = 1013) 1.1 % PLATELET COUNT (test code = 1015) 172 K/UL COMPREHENSIVE METABOLIC [id number] 00:00:00 Test Item Value Reference Range Interpretation Comments GLUCOSE (test code = 2217) 98 MG/DL BUN (test code = 2208) 15 MG/DL CREATININE (test code = 2214) 0.86 MG/DL eGFR AMER. (test code 96 ML/MIN/1.73 = 70775) eGFR NON- AMER. (test 83 ML/MIN/1.73 code = 87003) CALC BUN/CREAT (test code = 17 RATIO 2235) SODIUM (test code = 2231) 141 MEQ/L POTASSIUM (test code = 2228) 4.7 MEQ/L CHLORIDE (test code = 2215) 105 MEQ/L CARBON DIOXIDE (test code = 27 MEQ/L 2206) CALCIUM (test code = 2209) 9.4 MG/DL PROTEIN, TOTAL (test code = 7.0 G/DL 222) ALBUMIN (test code = 2201) 4.3 G/DL CALC GLOBULIN (test code = 2.7 G/DL 2240) CALC A/G RATIO (test code = 1.6 RATIO 2234) BILIRUBIN, TOTAL (test code = 0.6 MG/DL 220) ALKALINE PHOSPHATASE (test 89 U/L code = 2204) AST (test code = 2218) 22 U/L ALT (test code = 2219) 17 U/L COMPREHENSIVE METABOLIC [id number] 00:00:00 Test Item Value Reference Range Interpretation Comments GLUCOSE (test code = 2217) 98 MG/DL BUN (test code = 2208) 15 MG/DL CREATININE (test code = 2214) 0.86 MG/DL eGFR AMER. (test code 96 ML/MIN/1.73 = 66679) eGFR NON- AMER. (test 83 ML/MIN/1.73 code = 68799) CALC BUN/CREAT (test code = 17 RATIO 2235) SODIUM (test code = 2231) 141 MEQ/L POTASSIUM (test code = 2228) 4.7 MEQ/L CHLORIDE (test code = 2215) 105 MEQ/L CARBON DIOXIDE (test code = 27 MEQ/L 2205) CALCIUM (test code = 2209) 9.4 MG/DL PROTEIN, TOTAL (test code = 7.0 G/DL 2228) ALBUMIN (test code = 2201) 4.3 G/DL CALC GLOBULIN (test code = 2.7 G/DL 2239) CALC A/G RATIO (test code = 1.6 RATIO 2234) BILIRUBIN, TOTAL (test code = 0.6 MG/DL 2206) ALKALINE PHOSPHATASE (test 89 U/L code = 2204) AST (test code = 2218) 22 U/L ALT (test code = 2219) 17 U/L LIPID [id number] 00:00:00 Test Item Value Reference Range Interpretation Comments CHOLESTEROL (test code = 2210) 147 MG/DL TRIGLYCERIDES (test code = 2232) 82 MG/DL HDL CHOLESTEROL (test code = 2220) 58 MG/DL CALC LDL CHOL (test code = 2237) 73 MG/DL RISK RATIO LDL/HDL (test code = 1.26 RATIO 2238) LIPID [id number] 00:00:00 Test Item Value Reference Range Interpretation Comments CHOLESTEROL (test code = 2210) 147 MG/DL TRIGLYCERIDES (test code = 2232) 82 MG/DL HDL CHOLESTEROL (test code = 2220) 58 MG/DL CALC LDL CHOL (test code = 2237) 73 MG/DL RISK RATIO LDL/HDL (test code = 1.26 RATIO 2238) PSA, [id number] 00:00:00 Test Item Value Reference Range Interpretation Comments PSA, TOTAL (test code = 2606) 16.70 NG/ML PSA, [id number] 00:00:00 Test Item Value Reference Range Interpretation Comments PSA, TOTAL (test code = 2606) 16.70 NG/ML PSA, [id number] 00:00:00 Test Item Value Reference Range Interpretation Comments PSA, TOTAL (test code = 2606) 16.70 NG/ML SURGICAL PATHOLOGY [id number] 16:36:00 Test Item Value Reference Range Interpretation Comments Case Report (test code Surgical Pathology ? ? = [id number]) ?Case: [id number] ? Authorizing Provider: ?Pako Lopez MD ?Collected: ? 09/14/2019 1052 ?Ordering Location: ? ? [facility], Clear Received: ?09/14/2019 1413 ? Martin Marydel ?Pathologist: ? Mitch Perez MD ?Specimens: ? [...] Right mid base ? Final Diagnosis (test [id number] code = [id number]) FuZzEwMzNcZnRuYmpcdWMx ZCpztsAhRRqox3NmW2EeBu AwMFxhbnNpXGRlZmxhbmcx BQIaXVN1hvWnXGXmITadNV SdOGxrXy7olKSudCwbGxFi DWIif6xwjgSIpstxaYd8b9 uaGTEpKhB7jLCoERuzO4fq lyHgnXZsSIJkNDu4jX43BQ AumT4cxUKdEWfrywNyDwH9 IOleDHOsXvE3OBXehOGxXQ TkP5oyZNYlPYwfIGIrJFdw mNWdDJY5hRvff2H7pNPzdQ RzqLjvUzMdMkDlEHRPd6Sg PNb7gOieE6GrWHLuCfQ0iS QgUGFyYWdyYXBoIEZvbnQ7 hC56CAgvknT2sGKuv1Hdk4 4oy765jV7mhUGpASY0WVVg EYIgrDUxVZAlSYF9QNZwsN UxH8zcCWabCB2yrbzxSTF6 MFxtYXJndDcyMFxtYXJnYj TcwEDcQEVseAztFDcxk267 GVN7HzXyZQ3aD1Xwn6K9yY 9maXRcZGVmdGFiNzIwXGZv bi0hmBCpGQucd5MzQYU6vb Y7pSJgwAMdECGsTV96Ilzz t2PiNwgyMAG8NJLbxzDbj2 Fuf0ivRtFylaJcG3nnK7Zk ZHJoZWFkXHBnYnJkcmZvb3 Gbh3BfqYJinNi3x9wtEILb TZPyjCjoo0ksUGH3TSKzE3 J7cOSzu4rzGIqjIATfkPB9 inHdHEOgkUUtF3BjzW3rAZ zaFL2djla3p4duZvBdED1h zosjh3awCCurWDLrADG5Sn NsVDUzi8TekvppIkGsk2Eg uHFyJYryP16on273DLOxxd YqC8daqERrdprqlWFjiudq QByfcpV9XGs2psUkxpmanA xwbGFpblxmMVxmczIwXGxh yoaeNNZsCPhgY6zcYeMfPV PdwWieEGigy0UxHZIdDSXl RqVadRKrADJvFQQUY6CREH OBCZcODH4COTFYFTTXIJsS VEVSQUwgQVBFWCwgTkVFRE zIUVFIQ1CXSVezxMgziI3d YgZjLgXgOoceRI7yEORbB0 vibTUsOXZxWSOnR0vdPjOc cR7nuWwcGQrkNvDrBtFxOc kvYIQkbScdhE3vCbEvGxJa ZRtyPU7fHRXpV9etpLJbRY BgKFQdY8qpKmMkyR7kgDan MVxmczIwICAgICAgLSBQUk 8DHIHPGURaZZXDZz6BPVSY JR4WXRUzYQrMUGUVD00nB2 NPUkUgNyAoNCszKVxwbGFp blxmMVxmczIyXGxhbmcxMD PsXItwY2kgFqYzXAYqmHag CNypp4AmUBYnGQAvOrlufs IyXHBhclxwbGFpblxmMVxm czIwXGxhbmcxMDMzXGhpY2 lyZvPpNNMixEhmYZxff8Sx XGYxXGZzMjAgICAgICAtIE dYNCKXZUmWF2OUVRKxtHue yS1uWsEhYxFzGjmwIY0tMQ QeO3legNAdAWKtUVXlI4vi SjGuoN2cbEklUAmgNkWyRr CvJqzvMJKpkOlqfU0fHnMu PrXdSDfnVU9tFSFpE3kwdP QzANAkCBDyQ5wfBzCbkV8m aFxmMVxmczIwICAgICAgLS WWFHGKFI6PAPuEVU4AGVqP RSLYP73pQKAQWDGCKvX5Xu G5SSYoCEMdPCboOKIsHWOf MjJcbGFuZzEwMzNcaGljaF ztYUmhDxMgBFWyQUvmN6ao YfCyN5BpMVHfJtNoqVVyCE BsYWluXGYxXGZzMjBcbGFu ZzEwMzNcaGljaFxmMVxkYm WvDQGpZOpaZ0vnZkJeSrZr GCRwKWBtSQ2vIKMGP8UdKA 0YC6qMSEIoEUSHN8TITEOG FZI0ULVjC1CvECyWVUDDG8 JOMRZNMMWQHB8XKYeerJDl blxmMVxmczIyXGxhbmcxMD LtPVoqY2cjZsFmZCBidApv HAxam8BzAIQlSZCrIfmvsi IyXHBhclxwbGFpblxmMVxm czIwXGxhbmcxMDMzXGhpY2 fgHpHaLEWddJxvJGchn1Pa XGYxXGZzMjAgICAgICAtIF RPVEFMIExJTkVBUiBNSUxM IK9JYPZAOgUGAeSSSRGLIV EgI34XGHXPURXUCPA4HQYp UE8HZRReZCntJXNcASXyXh JcbGFuZzEwMzNcaGljaFxm DOeaFaYvJJQzRYcmC1vwAb IzD6DaAJDpMhIczPFnOSHt YWluXGYxXGZzMjBcbGFuZz EwMzNcaGljaFxmMVxkYmNo ZTBaXOluK9zjEuDmXkKqYL DvBLGiGC8sHI4VGUsbGVoZ DUDOHO8XUHnRRUTWSZRZNR 6FMVPIRmYJMn0BLDsfZWTQ TVxwbGFpblxmMVxmczIyXG rcxwbdIEKkLJqwX6byTuZf HFFnwMfrEEsuh5HwXWYmCK NmMlxmczIyXHBhclxwbGFp blxmMVxmczIwXGxhbmcxMD AhMWytT9urTqLoPZMsvOga XJtmc2RoBYSmEQWjYjWdWC AgICAtIFBFUklORVVSQUwg TR4NKECXT71wWu1EWOmMIL 7IXFLYFIQvePsyrC2uTwOi CwAgEcdlWI4oHOAhL6pxqX VpJCOiQMEpF9ntUxJapH3j aFxmMVxjZjJcZnMyMlxwYX ZxCyldItHtmNfqeL8iPhDx ZnMyNFxwbGFpblxmMVxmcz AjQOnmdwdtOSVpGRhsS0al YyAbVJNahRfqPJnwx3QiPU HpSNEnYcZkgYF1MVOvL1Cl XHBsYWluXGYxXGZzMjJcbG FuZzEwMzNcaGljaFxmMVxk ZqBnELJqQBjcO0ubPaTsW5 YyXGZzMjJccGFyXGZpMFxw aTVdezpmDUimcbL0SKHlUF luXGYxXGZzMjBcbGFuZzEw MzNcaGljaFxmMVxkYmNoXG IrDDclD4mwNrFpIjSzQZZL PuQXPo7GEDLADGHKQUQCDL cePNGVTTTFUCRFCzHSHM4C CLrpXyYFRAvBGQCYB8HXCB wluGzfzP0zXoUbIqYpVnhi AN1aYXJlF8rraCLbDWSeAL EjE1guUxYvcT0rrAvgDHob ZjJcZnMyMlxwYXJcZmkyNz GyjWpkoD8uGjPgKuXaUKea bGFpblxmMVxmczIwXGxhbm cgHHLpWNqoG8lmAsRfGNPa aFksEGxyg1CxARBoPEKrHr MiVSXQFa3ZTNUHSDUzOJWN Py9OHOYJZE9ZZBMhDUbOZO KAP65bI8IJReTqVHXiRNbj KGoksCbljV7vHuBeSaGsYs jfFD4rYQDmZ4nlzJBfOGUw DIPwU0byKoDocO3heZprZK xjZjJcZnMyMlxwYXJccGxh eP1oQmNiTaYpGCgfTX5gYY GcJ2ntqHIiPONtGTUaA2vc YfWsqW7hlMcoUWmrqdTwKK 3lW0BECABkL0AJSBJkAFal bGFpblxmMVxmczIyXGxhbm ieYQVlWXzzP6lyUvQpXPJs bFoqMAdyo1NwSLSsOISfRs xmczIyXHBhclxwbGFpblxm MVxmczIwXGxhbmcxMDMzXG enE3nkGpUdEHEbgRhgUXvp r3NkDPRpPRYeMgKyHOQQAp RDURLWA8XABNUKUPHZCJ5E PLIpKPNPY8AEGKdinEHizk xmMVxmczIyXGxhbmcxMDMz HPgbF9erQaDvOIEncFbtMI fhi0GqAHCjIWVxAqhxudGl XHBhclxwbGFpblxmMVxmcz UvTDyvltouSGNrWQmzB5od XrSlGREsxYhhKJbue8ErXH MgBKOvQoRfIZCCAN9MAvLC TlZPTFZFUyAxIENPUkUgQU 2POSo6YFRwU9TpYZeIEEOS H5MZETTNEKHFVQ0NYIszlT FpblxmMVxmczIyXGxhbmcx KJMoQKcpG6usMuQpPSKwdZ blKTxoq3LwGJTuEBRmWmpo czIyXHBhclxwbGFpblxmMV xmczIwXGxhbmcxMDMzXGhp H8fzBoDpHCHxdQwbIUynz7 YjDHGgMGEoViVkAEHBH1CE OYWLJB4RTMXtBAcXSRmSNW MQUaGdW9QuExQPXSgYUMBJ BbBzYTyGS6HZNrRbIEHJIY xwbGFpblxmMVxmczIyXGxh ctpqODWzAJcnL4chIxKmSR HfhIvlWDqor3KsISViBYQe MlxmczIyXHBhclxwbGFpbl xmMVxmczIwXGxhbmcxMDMz CRpvA2qbHfEwDGIfuOgwJR crg9MoOFVrOKCzTwOdCIMJ B5CPICQSZA7UPULkWLpORK rDDBSGCuNiX8EdR4PER1zJ E72BJpEuAuHGFAdtbBKeck xmMVxmczIyXGxhbmcxMDMz YCoqY6luDbWyVMVmuNebTK vmv1LsQWPoAKZcNzzfdpIm XHBhclxwbGFpblxmMVxmcz AbEBjocuemSKEoBDnvW0mr IhBjHEIqxPghAKnuc9SaGT YxXGZzMjAgLSBQRVJJTkVV JkTRHYlNKlMJYN6SEQ7ZZI BJREVOVElGSUVEXHBhclxw YXJcZmkwXHBsYWluXGYwXG KgOyAxmLymrW6mPnTvDfJm MMnyCO5gPBUyE3denAQgBM CuWIVjS8utWaWlnF2ovWrn FAsawcCzSAVbPDPGF1OKFA NXSCjLGO5MBYSBQZGPZJeE VEVSQUwgQkFTRSwgTkVFRE gZNSHWJ8VLQUxruKgpyV6f OsLlKoOdEdnmYX4yFGHfX3 beyDTfFMPcCEDeZ6cyXgHq zL4rtZasHYmzQwVkMuChDu znEFQrNauiPuSwmLygqE8l ZjBcZnMyNFxwbGFpblxmMV xmczIwXGxhbmcxMDMzXGhp P2ibXqVjESIreOmeXYufo8 VfCOSoNMRfTiXiLWFKCs1Z EOGTQXZzTWTIZd9MBUEVOY 5FBSMuUDaXZKAME47dG9ZN UkUgOSAoNCsgNSlccGxhaW 5mPkKuVwIfGyvrYX8tTAAa J6opvQQgCVKjWZFqW2xbIc ZayR0jnCnnKAneDbLlBnWw CgtpYKGxfMzbzK4hDpLkOg KyOQquKV1lUQAbD8zcdOIn RXGeAZGjI7klHcUrqG3wwC yqFJrtvxUsWH8zO0VFSWTr S3CQSLVeFGadcZMbawpyRI xmczIyXGxhbmcxMDMzXGhp E6zjPtPbCFIoyFufEAgli2 NoXGYxXGNmMlxmczIyXHBh clxwbGFpblxmMVxmczIwXG klmbauQOBvUPfzR2bhIjNp FWTzbNiwUSkmm3XbJXPyFA SzFqNpKHBRMI0FAyOUUhPT UIOHEgNxGDUWKhHbFR9CIV AeBYBcT1PwVUxLHAFNV2AG FTSTYHSAHY0EFMumxIYrry xmMVxmczIyXGxhbmcxMDMz XAelE0vaWxTbUSBgdWsaBW ajt1EvTQUbSQLiBewcplOb XHBhclxwbGFpblxmMVxmcz BzCCntwwjkOBByNObvQ3ju BpVtSCKozHnbDDgan8RpXS PcEZTrIaRaDGKZZ0BUYCDG SR8FGUTrMAwTIWdQTFXUDo UyO7LuBxBVTQuMVQFQMbHj ZAfTO0CDGfEjNPDSYZjcpW FpblxmMVxmczIyXGxhbmcx SSIdOKhvK6ylFsDkLYPzaI buXWpmi6TxPQCqWRXuQmjl czIyXHBhclxwbGFpblxmMV xmczIwXGxhbmcxMDMzXGhp Z7wkLdXmFABhkIccPXkcg2 RlHQSiIZEeLkLbIXVHM2FL CPERJE3SHZRqHDrQYLnCFA IIUqUzQ1FxO7RSA0iMN44M GnT5WV0REBBeppXuCAFTHb oMJGEEYMsjQS6BPYVEF21e Pz0WVPwRFH1TDNKXRFHlzX oidN2vMrCzJrKxBhupGO7m FSSeO6jbfKRqTKApSVQcN1 gwEpXjfX3zsAtbKNkxPwAj ZnMyMlxwYXJccGFyXGZpMF wgxHOqfpwyBHvkhyN1LRQt YWluXGYxXGZzMjBcbGFuZz EwMzNcaGljaFxmMVxkYmNo AJEuUQdgE2oaYyJnSxYiPK WTRsZVUg3JRJCZXXBISLTZ RCwgTEVGVCBNSUQgQVBFWC slKwXYNXkNYZNWW0PQTIsi ySjehD6mSsWiDeDjIegnBP 2sLODnC0fpcAQzHJRtGVYl H9piQsLerW8wiPkzYZnbDw JcZnMyMlxwYXJcZmkyNzBc kItjlH3lNnTaJuPwQTeivQ FpblxmMVxmczIwXGxhbmcx CSLtAEkrP0twHcQyFJAeyU kjWImar7RjKEVhBXIrVtKn NZNQKB6NV61kCXVKN4SZHX eKOAMXZ2LYUCIRHARPXJAS Za8PVNIvFM3JJRKHBEYKRI 9OXHBhclxwYXJcZmkwXHBs YWluXGYwXGZzMjRccGxhaW 4qNeOzNoTwDHvzNM8yTAEl X9aaeKJnURMoFPVoD8hmTo IujY3fmIdlNBmtkcDhBZOs DTNHP7HARFRRUQaZWX4FQS AEQGMBEJ4ZZRCEOJDmHL6W VIMIOWXDGN1NN8o9UKUmEZ luXGYxXGZzMjJcbGFuZzEw MzNcaGljaFxmMVxkYmNoXG DrZGxxE1jgJtKqK1OiRBGs MjJccGFyXGZpMjcwXHBsYW jwNUYfRXOvOzMetYqygR7s VaLcYdCoZZbkPO3yZZMlR4 zprPHuUPDlYERtV8ovTxPa jV8qfBsgQPqgojCyXH7eLR YKD0ITNJiMVCZYND1BH4IS P6qIS47HXSYBBLLKT36YAL COF8GJXKblGCUbRVXyVBDk YWluXGYxXGZzMjJcbGFuZz EwMzNcaGljaFxmMVxkYmNo RUPaFUzeJ1xeDpBmL0ZpMW ZzMjJccGFyXHBsYWluXGYx XGZzMjBcbGFuZzEwMzNcaG ljaFxmMVxkYmNoXGYxXGxv I5ouOfYuXbHnGHXiWRaQRP BBISsKK5URXJDqgZpfsI5r McPsRlXeEolxIG8tYXAxJ2 avsFWmWZPzSMUhY7kmZcGl qC7iyLvcUJnkRqIoTiKvFn bsOVQvtLcykN9gKlOqDvMb WEfgJW5gSHMhI7mcnNAnRB AaMJMgU5mrAvPuxG2qoAqg GWucwbZiPR5eJHIAH7UwEA 9QN7tRROIaEKBWE5KCTDNV JAGxOWDzA9KtFNbJAMOBW4 GSADTVFCDPUW2NGXqyzYWy blxmMVxmczIyXGxhbmcxMD IwHXvkR0mrRnEsBFFleBip EYtnj6UiWJTfXOAzJuvmwb IyXHBhclxwbGFpblxmMVxm czIwXGxhbmcxMDMzXGhpY2 feFbBeXABslTnhUWeyd1Ru TLNhKYOfRsInRYOZR3OVEX AVUB2WVAQxZVoOOTzRDJTC HqVgH4KnLlMUAAaHHOMLZx NlJJwGP6WBWmPlBqCQTNri bGFpblxmMVxmczIyXGxhbm jyRIWcFWisS6uaVpJlXBBj xTpdQZdua8JnLVAnBGJcOi xmczIyXHBhclxwbGFpblxm MVxmczIwXGxhbmcxMDMzXG tjR5lzVsYiBLRhzSntNEyy j7FaMQOqXJViLnPsDPWCO4 VYMAEBKU0ZTVJxMUsQBRfT BUSUFdEcK7GeE7EFS9yPR3 7BZpXoMrXeER2hpSgaeL9a CkRwElLpShhcAC1eSIHkN9 sgeFIkIPBlWOVzK1cwZfIn lN0fgItaEMqmOpKpDyWdYa wpYZAtaGnvcH4mFrJkKbDy INlpND6sZQAtG5xizHNiEQ JnTVLgO9wnGbGuuY6woJbu GAgjmeJkUY4fWPXUSG0GBX YDFAKHIgEXT4pZQnVFM0Dz SURFTlRJRklFRFxwYXJccG FyXGZpMFxwbGFpblxmMFxm xuV1FQEqZAzuNSGqXBWhTp BcbGFuZzEwMzNcaGljaFxm CHzqSfBpKFMlWXrjK8tcFu NcUhDfZXJSEsSBBn4TTWBD RSBHTEFORCwgTEVGVCBNSU QgQkFTRSwgTkVFRExFIEJJ T8NTIWlaeEvqaB5xXaBbKm CtQhekJW9wXUIaO5xzwAPq HKQrEUYsS5jlUcPeqX6giH xmMVxjZjJcZnMyMlxwYXJc cGFyZFxwbGFpblxmMFxmcz R4BSXaUGnwKYHwTCJgQsLn bGFuZzEwMzNcaGljaFxmMV snXrYaIVDrLKnwA2fmZyBh IzMhJXShZQNcXA1bAwGJAT bJXRXKQ3VYKVXTExDQLVVJ TUHmkRPuHNFsPopwGAd7pf BhclxxbFxwbGFpblxmMFxm tfG9WEDcZTvdYLHiBCJiVb BcbGFuZzEwMzNcaGljaFxm AUurEeOhQQXnEOjfX7flJi FcZnMyMFxwYXJcZmkwXHBs YWluXGYwXGZzMjRccGxhaW 6lGlLaKnIzFAdsPG4jFAAp B7wuvUMiLMLkCGFhI1nmSn KpiH6iwDrdORyfuhQeERew YJTRM0UEQRGJPDnFWL4GBO BSSUdIVCBMQVRFUkFMIEFQ RDkeEU3SZZKUBILDBG9CM3 h3VJPoXVxvAFMmDRDmVeHu bGFuZzEwMzNcaGljaFxmMV cjJtIyYLEvEDwcY9quAfSc U1GiIQBoTtIzpZIoGLIkub ExrPxqmM6pYsXjPeCtJWmj bGFpblxmMVxmczIwXGxhbm pwTVZhWMmaT6ytOqOqXVWv dEftLVgyv9BvTANiCXHfSc AgICAgICAtIEJFTklHTiBQ Zp5MNOJMFYSvGJzBS7CKKT fIZBelA0cXT77EHuWMCjNI KQ1YHHFLA23whNWqZBXrNc kxVZf0uaLuxknfmLgkpUAe proyDCohlqH5ULJfNSolZJ YxXGZzMjBcbGFuZzEwMzNc aGljaFxmMVxkYmNoXGYxXG soC9cmUpKgXlQwHZttFQCn ZmkwXHBsYWluXGYwXGZzMj LpaTnxdL4wNbRjQlClHCdj FW7qZZInD3ytdAOvXVZzGX BpV6yhSgBnrH3wpAsmOLxh eqPrDBxfUTVFN2PYCBXORD hHIC4KGSFKAToHCFQFVNHG ZcWTGV3RWPkmTjWNKFaCST HOA9RHUBjbdXwfwA0wNjYp ViIzGuzjUM2lKIQoB4gmsW ZnRTQhAEPcU1qjSnVkiQ3p aFxmMVxjZjJcZnMyMlxwYX AmDxzzFdDaoYqmiA1cWgKg ZnMyNFxwbGFpblxmMVxmcz CiNAxcadzzXXIiHNxwQ9sn ZaIhOXBmhMlsADiuh7LhYT XsQOQtTmCoZSBQSj7KPQTC QINhQDOWKq5HYNCNLI4NFI JyPOfYUHBIM56yI4SDQzPf CsGiCjhmWmvisHylfD3aQo FgCuSuWsrdIZ6uVFWcO8kt oPFfGYWpUBMqH0vvUrWyuY 9jaFxmMVxjZjJcZnMyMlxw DAIsiCqdaQ7hOzYlYcGzWZ suXI6dTBTjC2bqiQWiOLNs XMPrH7tfFtVmhK8hsGwvAA ccttNlSW3xK9CYRFStL0LW VVAgMVxwbGFpblxmMVxmcz KsYUbyorbrTTBeBSniD0iq FrFaAZXvnBphMEcoz1EiQV YxXGNmMlxmczIyXHBhclxw bGFpblxmMVxmczIwXGxhbm woFBLnDJcvO6joEbIfZFSy xSjjXTgbl1DdUSGeDLJyQx VjHPAGQE7YPaEZWsEJFYYQ BxHdGCGHMpAlZR5IINvhOV LJVjLHOZIgWAfEW3KJGLVP GY7NBkPIMRYeGBarYCUfVN ZzMjJcbGFuZzEwMzNcaGlj aFxmMVxkYmNoXGYxXGxvY2 dzEnXaJ4LlHHYhYpCzpDFv XHBsYWluXGYxXGZzMjBcbG FuZzEwMzNcaGljaFxmMVxk NaFnIAZuEIrzD3pbYqXnJo MyMCAtIFRPVEFMIExJTkVB KlIGIIhZRS9UKSHBCwVFRm EYNSZCZMIrO13LMPJXZELY AUL9SNO1OQ7EGAYaKLyfAC YxXGZzMjJcbGFuZzEwMzNc aGljaFxmMVxkYmNoXGYxXG huC4qrFaKaE4CqTAHmWoAz cGFyXHBsYWluXGYxXGZzMj BcbGFuZzEwMzNcaGljaFxm TEdeWnYlQDAhVUjfV7buRb FcZnMyMCAtIFRPVEFMIExJ NrPQGvIGTVuKBE0UFLZGAg RIYhJJIZGXFR4MCTJ8DGLj EO4zvSyjeC4nAjAwHuRrLq soBP4dBSSfT4awyJPdWIWp SMMfK1uaEaWpuV2giVtwMW xjZjJcZnMyMlxwYXJccGxh gT2iPmTrYzKoRFrfVG7lIS SbO4lzxUVoIRHqANQlM0dz IyBspQ8dmOfcGJmssuWuBA 1kWSKEOP4NYQFALLJJKiVL P4kGYsMPR4ByQNZEPrGOEb lFRFxwYXJccGFyXGZpMFxw aOEzerkqVYwaejW5VMRlKE luXGYxXGZzMjBcbGFuZzEw MzNcaGljaFxmMVxkYmNoXG SlTBinH1ixNjNdDgBhQQJI QqRNXy2ZSCAWDQMRTACXUP wgUklHSFQgTEFURVJBTCBC QVNFLCBORUVETEUgQklPUF NZOlxwbGFpblxmMVxmczIy WStcciyoAARaOAgyZ2ndPd DzJFBmfDlzGBbol1FxVHSq XGNmMlxmczIyXHBhclxwYX JkXHBsYWluXGYwXGZzMjRc lFqjcK6aSxOlGlPtNWzzAH 0mCJMfL5rfsQMwYNWlPUVd Y2afJwQzcW0xyDvuNVlmji GhAOPzMHLdHCSXAT0WP25k KXSZQ2SPDHdQVJSAK5ZCML AUZTFQLHHEOu2FGNEeJM7I FCSCGCYEQE3LXQAnhxqyeR V6INhphRThWFDliZcvcXrk nJ4yVmDmFeZqSRqrjMPswq xmMVxmczIwXGxhbmcxMDMz GSjuG6xoZqDyRCClgYlqVA smx4TvBKZmRRCjOnFoaHXw XGZpMFxwbGFpblxmMFxmcz C2HHWgNJhtEAHaJIJbMcWc bGFuZzEwMzNcaGljaFxmMV fgWkEcXMKpPTglZ8yrUoTb SeCfKHAGMgDGPs6ZIVPXTF BHTEFORCwgUklHSFQgTUlE FNUOHJrfBA1ZCVWJNMYNGJ 7GI6q2QVEdJCczVLJqEDMn MjJcbGFuZzEwMzNcaGljaF ijNVvsEzOxIXYdGVffK9lo UhGgF5MaXWXrEvXcuHSaOH ZpMjcwXHBsYWluXGYwXGZz FnDytKheiY0gJgAvXqTzIY wfWB4pSZHzV0jdiNAdMANo XACfF9wxJkZkhA6hkMabJF crylIbOR4xAPESE5JQRSdZ HOBKKK1QB6SIO2vHQ33YFK QZNNBXR07FATHIZ6NCKZMa KDMrIDMpXHBsYWluXGYxXG ZzMjJcbGFuZzEwMzNcaGlj aFxmMVxkYmNoXGYxXGxvY2 uzUpEpC8HeHTYzDbZglTHa XHBsYWluXGYxXGZzMjBcbG FuZzEwMzNcaGljaFxmMVxk SnHgAPZfNYnyH2qjVxYxLz PcGKRbBWjFTACFZBeNZ6KE SDOxdJkkcJ9bUnGxOqBuPy ujSQ9yJAToQ5lngXJwSDSx RGGkQ3ezAhQpgF1dzErsWT xjZjJcZnMyMlxwYXJccGxh nJ1eZdYjEhAcBDniPO1eBR RtJ3retJJkGERtABKfJ3ay DiZxqV1usYnnJMfhvcTpJQ 1hFZMUB4PrMO0DB2xEHIBk TTZIJ9YATPDFQAW5OKTOZw OPUWUwXTqPG5ISHNAXVD4I TkVEXHBsYWluXGYxXGZzMj JcbGFuZzEwMzNcaGljaFxm FYiwIzZsPRJmAIotI8roSq LlM1QrOYMyIeHwqYCuNFOw YWluXGYxXGZzMjBcbGFuZz EwMzNcaGljaFxmMVxkYmNo YHRyASgwB7ydTiBtHcSnLL AtIFRPVEFMIExJTkVBUiBN QPiAJH5LPECASgGSBeVCOC MEXYUuQ87GBINRERNTXLC4 CXZ3ZH5JUVPdANpkPMAnGL ZzMjJcbGFuZzEwMzNcaGlj aFxmMVxkYmNoXGYxXGxvY2 ppDtRwM6VzWRGrWgReaDYq XHBsYWluXGYxXGZzMjBcbG FuZzEwMzNcaGljaFxmMVxk ZsYcGMVmUEefO3ozChMxPk MyMCAtIFRPVEFMIExJTkVB TnHFOVgRIY4IVPJPGsTOMf WYELUJEY8ACFC8FUNiHL9q qQvslL6lXyQdToWmPjarIB 5hBNIcN8nycZZiUXHkZIDk H0pvBbRnhU0ydFbbNKqkIh WbViDnSjhuTGNhgGymiD8j MqMgVdBuMUrzUX3oYXGbY2 rpxQVdFTGrUSReH5rbQlDm mL7keFftMFupziShVZ7dML CQXG5YEYWOAQKHQzENC7vA OjJDT5VzFXQEEnLYKfzXBY xwYXJccGFyXGZpMFxwbGFp wwzqYXunneJ3IZMiTEhtZZ YxXGZzMjBcbGFuZzEwMzNc aGljaFxmMVxkYmNoXGYxXG imM8efZdGeTjIdOACPXlYR Bp3RZRZRMGUEMSKIKWxdPy bLKEEbQZaGLX2UVNjgAnRL QXlXPUAEW0LZCAsglIcllF 7lIqDxYoTsTqdhME7bMBFe U8ntgBJoNVTcLKXtL4klQz FqyM6xsQdbEVkbUhPvOjWb MlxwYXJccGFyZFxwbGFpbl hcKTpnidG2YMVyMQtjUABn XGZzMjBcbGFuZzEwMzNcaG ljaFxmMVxkYmNoXGYxXGxv I8leSpRiDuWoMNSxYPZpNB 3bAjROIOeCRUDNI3YJNCBR TkNUXHKQYIKwSK5ELQCBYr 2YORMeAC1RMESCXQGCND6N XHBhclxwYXJcbHRycGFyXH FsXHBsYWluXGYwXGZzMjRc nOzpuX8hOyCqWqCmOUmrBY 0qCJGtR9yceOMzWKSrRZZs S3rbXzKumO4orWnlKYjvvx IdPFlpABIWS7TPZCQJIQdN MH9NCAUMOCuIXTJCRLXeXx TGJBnvJkBRDKoHHTMIC9LG HTlduUatgT9yKlFzSpVtUj pqRT3gIVFwM4vczZGqHUBx KPBjO0qnEzMetP5hqYgeSX xjZjJcZnMyMlxwYXJccGxh kI0iMvHlQrUgYChsOI2eGB PcG2ongSVzKANkLXUzP7fn LdIzhK7ioTuwFHgqhtRyPD RcWYQnNGFTHq6AOZOMKQKc GMWYCr4CLEQEUY5KFAOyWN tBQPDBZ80vC3DCQmHeEmMv IzbqXwafmZyouA0vTeSuTs LjUyqgQV1zPCPuT6sgxFRr BHPjNYZsP2kfFtNudN8xyN xmMVxjZjJcZnMyMlxwYXJc GitvHcGdsQelhT8yRlWuMs MyNFxwbGFpblxmMVxmczIw BPlntvxnULHaFIblB2duJq IcQUTrnPaaOOotm8MgMVOg XGZzMjAgLSBHUkFERSBHUk 9VUCAxXHBsYWluXGYxXGZz MjJcbGFuZzEwMzNcaGljaF nbHCyxSyRqPITpQQyyL3yn OzJvE8TaPKAxJmYnvVTtVA BsYWluXGYxXGZzMjBcbGFu ZzEwMzNcaGljaFxmMVxkYm LoEYOdOIwwN9ghXoAcNySv FXFqLETTCB3TJIvMEr5FVx TSUIYkH62CGZMULnHtWBZo R8PuYLtTLSMRF4SPAPMRQJ ZESH2IIYcedXHvmfcdUSrq czIyXGxhbmcxMDMzXGhpY2 vcHhWoOFYbmTnwWCfzo7Ot XGYxXGNmMlxmczIyXHBhcl xwbGFpblxmMVxmczIwXGxh rltdWFSdFFgaZ5jeZzZqSP UkfPzfFJqao9BiFBPvJLRh YxJbTZHGF2AHXQIITY0QIZ UxLNlWSIoNSNAPHhVmD7Ln TkVFRExFIENPUkUgVElTU1 VFOiAxMiBNTVxwbGFpblxm MVxmczIyXGxhbmcxMDMzXG zaF8ncXhElOXSqpIsdFWql d1NlZLQwVZLlNqnhskIzOX BhclxwbGFpblxmMVxmczIw HOyhbcfqPCRoRYcsE7leVo YdIWQrvUrsSJwfp3XuHJSt NEVnQzHtWPJEQ1MNEPMSMZ 5FQVIgTUlMTElNRVRFUlMg R0ZjN6MDQ1xXR54PGdQwOd LzOD2vcSvejB3mNjCnWqPw MhyuKT8cYFAhG5oozIAoPY ZoQMJbH6duYfWnlA4lbUwh MVxjZjJcZnMyMlxwYXJccG edxV0rZjTkYeTyEYidRF1r LDQkH8fpvGEhKEEsWKRxF4 pxNxDleR1owDhaPNdaqaOc RE0rVAIOPV9HVXXBKKNFSq VFQ6cIHpNRJ4VeLJUXTyWX RklFRFxwYXJccGFyXHBsYW luXGYxXGZzMjJcbGFuZzEw MzNcaGljaFxmMVxkYmNoXG CuGKwnQ9yiJxHzI1JfXEGf WwMlBfOwoURcdSKeI3wieH ytegsdTQDMMOWlHNuaXh0j CVHnEXL4EaIeOBFCOTTfQH luXGYxXGZzMjBcbGFuZzEw MzNcaGljaFxmMVxkYmNoXG ChGYaoG9mfFsQpGaWbTZOh NFxwbGFpblxmMVxmczIyXG vrwejvSKJaFPiiA5iiNrNi PANbfEsrSTfux5XlVRRnPE SmBckforAmQEVdja79YEA1 YgRbn3F6XGWhBeAyIRQpEU 7qtHtiZAJhYJ7bUGRsV9rl hS7rvoq6HxMcYKIpFcL6AP SaojL4Bgc6GZCsRJuhb2lf b8XsE6CzpWKnkAs5l0poLP SmNrE7tZQgIAntN0anwtEg tVCnCAPwNAm6aDnrYmLoVD Pfd2iafeSzXvCsSAIeLFAn ALAflEcemoj9dO98OHDofH 2bgXFsQDvsoiNnMuW3MWqw JFDvTjX2OESliVMuLRFbG0 xyZWQwXGdyZWVuMFxibHVl CMC0iJaty2F8yGWgePBakF seZqPtBxHzMXQNc5JdTBu2 mZyqO2NbCYHwIqR9lRHiZZ WrGRfjLOSwEVWxlgG7vA53 DWjkypW7mVUwz9Hzf88kg0 26cV5adGMwDVV8IEPjDGSi yITkRRPeIEX9MECcfUIwJ3 ciHQKkWM4dyqbzMKjyOBlh ULYrwTX7LFCwgJMiZ0OuIP CvLKmyLSNmpme0JmLcAo5j iTFvfTfuBPuch0vhj8yalS MkXwg7QZZeXtIdDffjUUag o7Cab0cuJPUdxw8sIJY2kG NdrAxwl4G7aVJuOHZdpLQc eyEdFZBxUgQ3BYcbNJ5ckg 16XNUxEME7bg8hgOMhsLkw bnIfxHEmNQcpF8QwDGQcw3 46JXHuC6IcWAGwh5Z1zaUa QiMqOZMroXL5uyE8NLLjOO j4nNXeomS1mlTdmOCsC0xh hM4bQXKoMV1bibzdv6dbJO ewQGwvEYQnsJY5mzB7HKLv vIQzE7ZucZ6pXTUxTXolVU Zknbl9OiKbDd9imLTueHrq MFxzYmtwYWdlXHBnbmNvbn RccGduZGVjXHBsYWluXHBs YWluXGYwXGZzMjRccWxccG ookX1zUiEtMpMiEKdvZL5l EYOmZ3sidZAmONDeTQAuS7 tmAiLjyD1oeQmoAReoTwFv ZnMyMFxwYXIgSSBoYXZlIH SihnTuxoLlsWpvozB0hXD2 ZWQgYWxsIHNwZWNpbWVucy 6jzXnyZGEqVN9vJBKybsWv YDbaeFvrVZjxPOV4MEWkvH VudHMgbWFkZSBieSByZXNp NBZlyQTbVABpzZpqy0Ymh8 TwiRB6jL6eh1qqp1NpQSGs wVM4SB05oxM2gY7kYPMkOS 9oRAWfZH3ihLIiiJFeHMQv j40ohUyjysUyRGPompQnLS BsYWluXGYyXGZzMjhcbGFu ZzEwMzNcaGljaFxmMlxkYm EpIOGiBOjiP8ijWgDwTfFd XFlpJLB9lE== Clinical Information Left lateral apexLeft (test code = lateral midLeft [id number]) lateral base Left mid apexLeft mid midLeft mid base Right lateral apexRight lateral midRight lateral base Right mid apexRight mid midRight mid base Gross Description (test f8uyqSZuBNWraILsZpDoEF code = [id number]) AbOOMru7lkUEExzSFkTaEr MzNcZnRuYmpcdWMxXGRlZm Bne4wae833jSWob3jvDASp DhK8hIGxDBSaxTEfW315KI GgUHnrq3nng5MsUFXvgDUm x2I9JMCFvdaqxNb0u8ftZk HmTnY5fIHeDLotB6kzceEn rCGvPEMhL3TaadHDPGSxGm j4pYljX32fq6Y3WstzW6sd ZWQwXGdyZWVuMFxibHVlMC M5ZFOmRZU6TPhmypRgqzZ1 JVhwyUTvZyN4AJl3d1klwL fbXCGbVDI4u7axSRfvsmZg MR4hrx6nlLv6m3tgfmZqTU LkEWIrlEFTMFRaV8OpbGbu Ml3hdRg1pFtiNfcmJTJ0Ml o2MF7ege16nvv3nGenLKFn ffkfWdS2OSngGVAvvqflST u2PCdmVNMbaANtINUbnSZb A5KsNUoqUO1thfy3VzDdSS 5tbanwUXtjYTQzBKT9UuXa RVRuu8PyovihFuLuet9tqt 94AKM2p9FgmTtwXKD4MUG5 WwFfSs5lgUXjAXNvNT9yEe RshACmDXBbwo36rIqmZNqx fdOuwW0wNdCeXQWoiHJsVH GzFC3gkDFaXGMspM1znmwv XHBnYnJkcmhlYWRccGdicm OmZv7krVbxYHR8ASnzF3be bS4rCzN3YSmdJ1ocdR0mSC n4ZEadkGQ6YCAjeI5gPS1c enokp0maSHB3XKeuEJHhgi D7fcLbCCBwrQVfA7EpbX32 OyWguXUeV1DgrV1gZJwjCA Ymkni5VwZkCs0yrILlgAJ3 MFxzYmtwYWdlXHBnbmNvbn RccGduZGVjXHBsYWluXHBs TBiaWHWoZVMfNxYgw4EqYA Umu5qbXcAsh0xxlLa5XGtd gOiwhZXnczqdIJocilB7OK BsYWluXGYxXGZzMjBcbGFu ZzEwMzNcaGljaFxmMVxkYm RkXSDbQTgzM8ejPeObTqJc OFYYsHKpaF4jvhTUKPodOS XjK3LbcdBoCFzlCNDvfj5q oDuqNThfMnWeEDGnl7g5sF S8oVZhhRJ3jCBctBxkAP6b yPMaZVNVDV99fCAwacczOq jsGdColCC4ZKQxyMCicDC1 LsYmbmAcE16uj1gguTMei5 ZiHZKygZ2qzWMjuHNkCMhj SFkyA98tGQHxTV53PUapSK 5bYCwkJV0dUEUgKIU9yJrb aCBpcyBlbnRpcmVseSBpbm tlZCBibHVlIGFuZCBzdWJt lJW3YZRmlL7biC58xvYmye JDEG6wcVRbIRGtKBSqpIHx WZZiuEBaclNrSXz0QZVgnX 5vEn9vnPSmbV3waHFwYAya HGJ3cWPqWVRqSDPnQQPeEY 06Z2WhyxFaCCwaYWqexwJl YmVyLCAibGVmdCBsYXRlcm QxOP6eAOFxNB3xRDPejnNq l4VwVI5lWXDyh3euN5esQL Lfvw4ojrE3QXQceeIdRILc IRP6RUZtHC8dGkNtF28zFY doaWNoIGlzIGVudGlyZWx5 ADcjt9FaEPLkaZYuPL7tNV L7An1fxRKrQXVbhaO2y8Cq BSyjDZMxUtqcZSPvD3NvG2 ilUH8sFiAgldGeRETdcMIb NPNxrtBnj5QqPWqxvtDpYH JlbGVkIHdpdGggdGhlIHBh oDhvlwJlonOeQH5xLNMOZG EcuG2yTWKkGVLlDLS6BWbz ePIvHEweVgItCYAlTD4wWC IkzfMio2UpMA0uBMPuf7vd H9veIIJztc5xcmV1LDAhfu BnYSMlSgI0NYEnLUS1ZWJz SODupCjzs0gdN5mmdAQiKL 12gPGtdXzivB8cTTHmRpq3 MIQykmMjm7HigMw1hOEbMH ulRRYlsY6dnQ3nBeWjJKLq dbFRnDYpxW9ffuGRCHtqGW TtF0SuciRwJXidIJIdyp0e sFrmYLprIoKlMUHgz6m1lR F2vQHymLW8gLNzkCgyCE4p iXTeENJRNY64pMNmivnqIk xlZnQgbWlkIGFwZXgiIGFu CFLqo67mxQY6wiCkHdHdBW IlwbxiMJY0SY3vS6FmmTNb y4TmACglWkItbUMjYiVtbC JkGkOpX16lSSgbvODcBVxg RMAjcBcwRUc8WJmhn6CdWU YceFEjXZ8lONG4Rv9efFOq VVFbxuB0t2BtUUbaTFXvOc rfFAJoU2SrI8nrHS8tGYUe cyByZWNlaXZlZCBpbiBmb3 JtYWxpbiBsYWJlbGVkIHdp dGggdGhlIHBhdGllbnQncy ObTO5sSSDGECNbkR9eNIXs YVNiBGB0ZE1wQWKwaHBjRX BwHGFba15suWK3jbHrKnEw BRXiwffrJQZ9NB6rA2MbdL Bmq6MbQRixIoFezPObPnAf fQChToTmM03vNFlivOOeOE loIFLazCypUWl0KGhhk6Ln GYOtdQJlKE1nBXJ3Eo4rkV QaIHRyliB4l2BfSWxvWHPy FrzbAWFlH5EqD0elOP4wNj BpcyByZWNlaXZlZCBpbiBm x4KtXFohhdSeYCXxlDZlZX dpdGggdGhlIHBhdGllbnQn cqVpWZ0aVQVLKLBoeW9fYG NfSPPlORC5JV0mDKYwRHJk UkRspuFwK54hi3izaBMuv2 OwHKXrbS5edSBppOUdVHdf TEbmA05eNQGvHB04VTbmVW 0xWXtaVU8zJGEzKKN1oRrf aCBpcyBlbnRpcmVseSBpbm tlZCBibHVlIGFuZCBzdWJt cTU1SVIsiU9alF63nlMita UASR2vkWOoBRYrUCAkoHPd XFbesKUjgoSaURl5PQRpjF 9iIk2muHFzpJ1ezEVeWWka DER8xQMnIRVrYHTuPZQqMM 73F7HbglByABwlFGijaaUh VnQrANQnzykcoUXupNN6BI AbeBMboLO8PjNdsnFmM55i z5usiRJsi5TlIRXxeS7twO ZrhJXtAGeiWHlxZ36yLKWb Hy3dBSndUM5jHLsjUD5xCF BbPJC8xFlgqAUbbgFvryQs cmVseSBpbmtlZCBibHVlIG KcFVAswOIvtAN8SAVrhL8z dS96ryHimwEYOB9neZEkRN NwZWNpbWVuIEggaXMgcmVj CXi2OCLyxM8yLl1cvRYwrX 9rmCDsBWvwWFS8jKDhPMWu URUnMDXeUC00E3CysaOzPB wgVUggbnVtYmVyLCAicmln aFJajXQ3NKAzlGVmsAXyPS KsXIFfn25lmBW1ftNsWwRw JDGisiypUCL6UG3pB1UcfU Fcy3VvUAskXorsdVAaHzEv jPRbObIsC22yCInheNWsMP ajRKHqkFviXAd5VWono5Tb LDQigDYaTC0nYXQ2Vg6ntM GfVQVugtT0g5LgQZagCGrx RcxnAXIlN5RtK2vyDV8dPC BpcyByZWNlaXZlZCBpbiBm n7FbDVeqttQbYLPdaCXeDU dpdGggdGhlIHBhdGllbnQn zjPaKI9zCOJGQJLtkE4mVW IsICJyaWdodCBsYXRlcmFs YZVvc5BcPBGfHZWjy56qaT B9lxBeVzCpVOWpjawqMDO3 GO0uZ7BmxLVze4HxAJekFq fqsULmDbAzqMPoQuNqR02n IHdoaWNoIGlzIGVudGlyZW l9LCner5EzGRNzdIGnML9t RNC0Cn5lvPIzDMWwoiN9l2 MzXVcvJYvgNealSDGnR3Bv B2kaEG4zIxJrfsNuNFRshD DeZGLpnwYiy5BoRQcuycXx YWJlbGVkIHdpdGggdGhlIH QddDruiiEjyzWaCP8wNBXW MUggbnVtYmVyLCAicmlnaH QgbWlkIGFwZXgiIGFuZCBj f21bhUL9slUbEnAvZCOwbu guYLM2HE5aZ5QlzKYqp6Na ICgxLjcgeCAwLjEgeCAwLj UfJ92rOQttqAByIFioALOj wPexOSn1YXiah9PtCLQwfJ QeGG4xTKW5Vc3xrYWaUYYb eeL0y4AvMFzqCJtmLrplRF YoI0MoE8gyTP9hWpPijoUe MBEqrZJmDEFdtcKib2YcDX xpbiBsYWJlbGVkIHdpdGgg dGhlIHBhdGllbnQncyBuYW 2cKOLTTKErfS3nMYOgTOBk aWdodCBtaWQgbWlkIiBhbm WnO86im0ixrPVvo0SkNJUy mE0txQEudLLkZQqpNSkqV8 3sBKFcQg2cPRjxZC3tWSvn NV2jOOBbYJD1dNaqmGZcro BlbnRpcmVseSBpbmtlZCBi cOXfFARkETOwjRJaoGP3LN XqzF9tqA26ttBuxhJVER7d cGFyIFNwZWNpbWVuIEwgaX JeueVoANn9XZPydB7dPd9w kVYhxM4jyIXfQDnwRXP1xH WrTHLsTJVdDOJbTM43Q9Ja bmFtZSwgVUggbnVtYmVyLC LnyqdlhQQngGmsZZGqv4Cx BJMnJMNaz75nuGA7deJvQq HrFXAathudFGV0TW6nO4Eh nQXeu0XvSIzuAgEplEHuXy PkeFMeMbOwU88sPFeynWRa HHuoPCXyqVpySHm5IVgiw6 ZsYQVsdBIlCE6tMGJ3Yn3f kYVbLFPgnyO2k8FkMQwqWY wxLlxwYXJccGFyZFxwbGFp jdsyTXkaviN4HPSzNDwdVZ YxXGZzMjBcbGFuZzEwMzNc aGljaFxmMVxkYmNoXGYxXG jiB8dvYaQwEoCkAEYBsEqv TTONV0pyaXIqHNrcNXIBQM BsYWluXGYyXGZzMTZcbGFu ZzEwMzNcaGljaFxmMlxkYm FbNXLeCCgeU3enDsOnB5Cf XGZzMTZccGFyXHBsYWluXG YxXGZzMjRccGFyXHFsXHBs YWluXGYwXGZzMjRccGxhaW 4rRbUqOsTfZUluMJ8eVMVp L4dhuSOeXBBtYTHzB8reKu KiaQ7ilZnuBZepniLgWQVm cn0= Embedded Images (test code = [id number]) [facility] [id number] 23:07:00 Test Item Value Reference Range Interpretation Comments PSA (test code = 29.30 ng/mL See_Comment H [Automated [id number]) message] The system which generated this result transmitted reference range : <=4.00. The reference range was not used to interpret this result as normal/abnormal . BEVERLEY (test code = BEVERLEY) Biotin has been reported to cause a negative bias, interpret results relative to patient's use of biotin. Lab Interpretation Abnormal (test code = 52535-9) [facility]
[2022-01-31] MEDS ORDERED: NA CHLORIDE 0.9% 1,000 ML ONE (06:21)
[2022-01-31 06:45] LABS: Absolute Lymphocytes (CBC) 0.5 K/uL (0.7-4.9); Hematocrit 39.2 % (39.6-49.0); Lymphocytes % 8.2 % (15.3-44.8); MCV 90.1 fL (80-100); RBC Red Blood Cell Count 4.35 M/uL (4.33-5.43)
[2022-01-31 07:00] LABS: Albumin 3.5 g/dL (3.4-5.0); Bilirubin Total 0.7 mg/dL (0.2-1.0); Potassium 3.9 mmol/L (3.5-5.1); Troponin High Sensitivity 13.3 pg/mL (<58.9)
[2022-01-31 07:23] LABS: Urine Blood Trace-lysed (Negative); Urine Glucose Negative (Negative); Urine Protein Negative (Negative); Urine Specific Gravity 1.015 (1.005-1.030)
[2022-01-31 07:35] LABS: Urine Bacteria <20 /HPF (<20); Urine RBC <5 /HPF (None Seen)
[2022-01-31 07:54] LABS: SARS-CoV-2 Antigen Rapid Res Negative (Negative)
--- NOTE | 2022-01-31 08:03 | RAD REPORT ---
EXAM DESCRIPTION: CT - Head Brain Wo Cont - 01/31/2022 7:38 am CLINICAL HISTORY: dizzy Headache, drowsiness, dizziness COMPARISON: Head Brain Wo Cont dated 05/21/2021; Head Brain Wo Cont dated 04/29/2021 TECHNIQUE: All CT scans are performed using dose optimization technique as appropriate and may inclu de automated exposure control or mA/KV adjustment according to patient size. FINDINGS: No intracranial hemorrhage, hydrocephalus or extra-axial fluid collection.No areas of brai n edema or evidence of midline shift. The paranasal sinuses and mastoids are clear. The calvarium is intact. IMPRESSION: No acute intracranial abnormality.
--- NOTE | 2022-01-31 08:24 | ER ---
Nurse's Notes [facility] Name: Jesse Serna Age: 81 yrs Sex: Male : 1940 Arrival Date: 01/31/2022 Time: 05:45 Bed 8 Private MD: Diagnosis: Weakness;Dizziness and giddiness;Hypotension due to drugs;Essential (primary) hypertension Presentation: 01/31 05:45 Chief complaint: EMS states: "He has a history of high blood pressure, but he doesn't tw5 keep up with his medications. He states that some days he forgets other days he only takes half pill and some he takes two pills. It just depends on how he is feeling. He said that a side effect of the medications is dizziness and he woke up feeling dizzy.". Coronavirus screen: Vaccine status: Patient reports receiving the 2nd dose of the covid vaccine. Moderna. Ebola Screen: Patient negative for fever greater than or equal to 101.5 degrees Fahrenheit, and additional compatible Ebola Virus Disease symptoms Patient denies exposure to infectious person. Patient denies travel to an Ebola-affected area in the 21 days before illness onset. Initial Sepsis Screen: Does the patient meet any 2 criteria? No. Patient's initial sepsis screen is negative. Does the patient have a suspected source of infection? No. Patient's initial sepsis screen is negative. Risk Assessment: Do you want to hurt yourself or someone else? Patient reports no desire to harm self or others. Onset of symptoms was January 31, 2022 at 03:30. 05:45 Method Of Arrival: EMS: [facility] tw5 05:45 Acuity: KT 3 tw5 Triage Assessment: 05:53 General: Appears in no apparent distress. Behavior is calm, cooperative, appropriate tw5 for age. Pain:. 05:55 Neuro: Level of Consciousness is awake, alert, obeys commands, Oriented to person, tw5 place, time, situation, Software Computer Specialist are equal bilaterally Moves all extremities. Speech is normal, Facial symmetry appears normal, Pupils are PERRLA. Historical: - PMHx: 05:50 Arthritis; Atrial fibrillation; Hypertension; prostate cancer- in remission; tw5 - PSHx: 05:50 Appendectomy; tw5 - Immunization history:: Flu vaccine is not up to date. - Social history:: Smoking status: Patient denies any tobacco usage or history of. Screenin:15 Abuse screen: Denies threats or abuse. Denies injuries from another. Nutritional db screening: No deficits noted. Tuberculosis screening: No symptoms or risk factors identified. Fall Risk None identified. No fall in past 12 months (0 pts). No secondary diagnosis (0 pts). IV access (20 points). Ambulatory Aid- None/Bed Rest/Nurse Assist (0 pts). Gait- Normal/Bed Rest/Wheelchair (0 pts) Mental Status- Oriented to own ability (0 pts). Total Rosa Fall Scale indicates No Risk (0-24 pts). Assessment: 05:54 General: Patient states that he is having some minor neck pain, but the dizziness is tw5 starting to subside. 06:15 General: Appears comfortable, Behavior is calm, cooperative. Pain: Denies pain. Neuro: ha1 Level of Consciousness is awake, alert, obeys commands, Oriented to person, place, time, situation. Neuro: Reports dizziness, when standing. Cardiovascular: Patient's skin is warm and dry. Respiratory: Airway is patent Trachea midline Respiratory effort is even, unlabored, Respiratory pattern is regular, symmetrical. GI: No signs and/or symptoms were reported involving the gastrointestinal system. Abdomen is flat, non-distended, Bowel sounds present X 4 quads. :. EENT: No deficits noted. No signs and/or symptoms were reported regarding the EENT system. Derm: Skin is pink, warm \\T\\ dry. Musculoskeletal: Circulation, motion, and sensation intact. 07:15 Reassessment: Patient appears in no apparent distress at this time. Patient and/or db family updated on plan of care and expected duration. Pain level reassessed. Patient is alert, oriented x 3, equal unlabored respirations, skin warm/dry/pink. patient provided urinal. patient is yoruba speaking. 07:45 Reassessment: Patient appears in no apparent distress at this time. patient to CT. db 08:28 Reassessment: Patient appears in no apparent distress at this time. Patient and/or db family updated on plan of care and expected duration. Pain level reassessed. Patient is alert, oriented x 3, equal unlabored respirations, skin warm/dry/pink. patient returned to room from CT and ultrasound. Vital Signs: 05:45 Weight 63 kg; Height 5 ft. 6 in. (167.64 cm); tw5 05:45 BP 118 / 80; Pulse 67; Resp 14; Temp 98.4; Pulse Ox 100% on R/A; tw5 05:55 BP 132 / 83 Supine; Pulse 66; Resp 30; Pulse Ox 98% ; mm9 05:57 BP 117 / 67 Sitting; Pulse 72; Resp 35; Pulse Ox 98% on R/A; mm9 06:00 BP 100 / 55 Standing; Pulse 78; Resp 20; Pulse Ox 97% on R/A; mm9 07:00 BP 134 / 62; Pulse 59; Resp 18; Pulse Ox 95% on R/A; db 08:30 BP 143 / 68 Supine; Pulse 60; Resp 20; Pulse Ox 100% on R/A; db 08:32 BP 138 / 66 Sitting; Pulse 58; Resp 20; Pulse Ox 98% on R/A; db 08:37 BP 120 / 41 Standing; Pulse 75; Resp 18; Pulse Ox 96% on R/A; db 05:45 Body Mass Index 22.42 (63.00 kg, 167.64 cm) tw5 ED Course: 05:45 Patient arrived in ED. tw5 05:45 Juliette Méndez MD is Attending Physician. sd2 05:45 Arm band placed on Patient placed in an exam room. tw5 05:48 Triage completed. tw5 06:09 Patient has correct armband on for positive identification. Placed in gown. Bed in low mm9 position. Call light in reach. Side rails up X2. Warm blanket given. monitoring manager on. Pulse ox on. NIBP on. 06:32 Initial lab(s) drawn, by me, sent to lab. EKG done, by ED staff, reviewed by Juliette Méndez MD. Inserted saline lock: 20 gauge in left antecubital area, using aseptic technique. Blood collected. 06:33 CBC with Diff Sent. mm9 06:33 CMP Sent. mm9 06:33 Troponin High Sensitivity Sent. mm9 06:33 Magnesium Sent. mm9 06:33 BNP Sent. mm9 06:34 XRAY Chest (1 view) In Process Unspecified. EDMS 06:35 Lakisha Brewer, RN is Primary Nurse. ha1 07:11 Attending Physician role handed off by Juliette Méndez MD [facility] 07:11 Jameel Valdivia MD is Attending Physician. jacqueline 07:40 CT Head Brain wo Cont In Process Unspecified. EDMS 08:08 US Carotid Artery Bilateral In Process Unspecified. EDMS 08:23 Solitario Guzmán MD is Referral Physician. jacqueline 09:09 No provider procedures requiring assistance completed. IV discontinued, intact, db bleeding controlled, No redness/swelling at site. Administered Medications: 06:39 Drug: NS 0.9% 1000 ml Route: IV; Rate: 100 ml/hr; Site: left antecubital; ha1 09:10 Follow up: Response: No adverse reaction; IV Status: Completed infusion; IV Intake: db 100ml 07:17 Drug: NS 0.9% 500 ml Route: IV; Rate: bolus; Site: left antecubital; db 09:10 Follow up: Response: No adverse reaction; IV Status: Completed infusion; IV Intake: db 500ml 08:30 Drug: Meclizine 25 mg Route: PO; db 09:09 Follow up: Response: No adverse reaction db Medication: 09:09 VIS not applicable for this client. db Intake: 09:10 IV: 500ml; Total: 500ml. db 09:10 IV: 100ml; Total: 600ml. db Outcome: 08:24 Discharge ordered by . jacqueline 09:08 Discharged to home ambulatory, with family. db 09:08 Condition: stable 09:08 Discharge instructions given to family, Instructed on discharge instructions, follow up and referral plans. Demonstrated understanding of instructions, Prescriptions given X 1. 09:10 Patient left the ED. db Signatures: Dispatcher [employer] [facility] Jameel Valdivia MD MD cha Wood, Tiffany tw5 Juliette Méndez MD MD sd2 Lakisha Brewer, RN RN ha1 Chelsy Becker RN RN db Latoya Galloway mm9 Corrections: (The following items were deleted from the chart) 05:53 05:45 Pulse 67bpm; Resp 14bpm; Pulse Ox 100% RA; Temp 98.4F; tw5 tw5
--- NOTE | 2022-01-31 08:25 | EDPHYS ---
Physician Documentation [facility] Name: Jesse Serna Age: 81 yrs Sex: Male : 1940 Arrival Date: 01/31/2022 Time: 05:45 Bed 8 Private MD: ED Physician Jameel Valdivia HPI: 01/31 06:00 This 81 yrs old Male presents to ER via EMS with complaints of Dizziness. sd2 06:00 81 yo M presents with CC of dizziness via EMS. Reports he intermittently takes his BP sd2 medications as sometimes he forgets them. Reports he thinks he forgot last night and took 1.5 pills instead of the 1 he was supposed to take. Reports the medications make him dizzy at baseline sometimes and that this feels similar but felt more severe tonight. Reports that his dizziness is not room spinning but a lightheaded sensation. Denies any numbness or weakness to extremities or face. Denies CP or SOB. Pt currently with resolved dizziness but reports a posterior AU which he states he has also had in the past due to his BP medications. . Historical: - PMHx: 05:50 Arthritis; Atrial fibrillation; Hypertension; prostate cancer- in remission; tw5 - PSHx: 05:50 Appendectomy; tw5 - Immunization history:: Flu vaccine is not up to date. - Social history:: Smoking status: Patient denies any tobacco usage or history of. ROS: 06:00 Constitutional: Negative for fever, chills, and weight loss, Eyes: Negative for injury, sd2 pain, redness, and discharge, Cardiovascular: Negative for chest pain, palpitations, and edema, Respiratory: Negative for shortness of breath, cough, wheezing. Abdomen/GI: Negative for abdominal pain, nausea, vomiting, diarrhea. MS/Extremity: Negative for injury and deformity, Skin: Negative for injury, rash, and discoloration, Neuro: Negative for headache, numbness and tingling. Positive for dizziness. Exam: 06:00 Constitutional: This is a well developed, well nourished patient who is awake, alert, sd2 and in no acute distress. Head/Face: Normocephalic, atraumatic. Eyes: EOMI, normal conjunctiva bilaterally Chest/axilla: Normal chest wall appearance and motion. Nontender with no deformity. Cardiovascular: Regular rate and rhythm with a normal S1 and S2. No gallops, murmurs, or rubs. 2+ distal pulses. Respiratory: Lungs have equal breath sounds bilaterally, clear to auscultation and percussion. No rales, rhonchi or wheezes noted. No increased work of breathing, no retractions or nasal flaring. Abdomen/GI: Soft, non-tender, with normal bowel sounds. No guarding or rebound. No evidence of tenderness throughout. Back: No spinal tenderness. No costovertebral tenderness. Full range of motion. Skin: Warm, dry with normal turgor. Normal color with no rashes, no lesions, and no evidence of cellulitis. MS/ Extremity: Pulses equal, no cyanosis. Neurovascular intact. Full, normal range of motion. Ambulatory without difficulty. Neuro: Awake and alert, GCS 15, oriented to person, place, time, and situation. Cranial nerves II-XII grossly intact. Motor strength 5/5 in all extremities. Sensory grossly intact. Cerebellar exam normal. Normal gait. Psych: Awake, alert, with orientation to person, place and time. Behavior, mood, and affect are within normal limits. 08:22 ECG was reviewed by the Attending Physician. [facility] 08:24 Abdomen/GI: Inspection: abdomen appears normal, Bowel sounds: normal, Palpation: [facility] abdomen is soft and non-tender, Liver: no appreciated palpable abnormalities, Hernia: not appreciated. 08:24 Musculoskeletal/extremity: DVT Exam: No signs of deep vein thrombosis. no pain, no swelling, no tenderness, negative Homans' sign noted on exam, no appreciated bluish discoloration, no erythema, no increased warmth. Vital Signs: 05:45 Weight 63 kg; Height 5 ft. 6 in. (167.64 cm); tw5 05:45 BP 118 / 80; Pulse 67; Resp 14; Temp 98.4; Pulse Ox 100% on R/A; tw5 05:55 BP 132 / 83 Supine; Pulse 66; Resp 30; Pulse Ox 98% ; mm9 05:57 BP 117 / 67 Sitting; Pulse 72; Resp 35; Pulse Ox 98% on R/A; mm9 06:00 BP 100 / 55 Standing; Pulse 78; Resp 20; Pulse Ox 97% on R/A; mm9 07:00 BP 134 / 62; Pulse 59; Resp 18; Pulse Ox 95% on R/A; db 08:30 BP 143 / 68 Supine; Pulse 60; Resp 20; Pulse Ox 100% on R/A; db 08:32 BP 138 / 66 Sitting; Pulse 58; Resp 20; Pulse Ox 98% on R/A; db 08:37 BP 120 / 41 Standing; Pulse 75; Resp 18; Pulse Ox 96% on R/A; db 05:45 Body Mass Index 22.42 (63.00 kg, 167.64 cm) tw5 MDM: 05:45 Patient medically screened. sd2 06:00 Differential diagnosis: medication error, orthostasis, vertigo, dehydration, sd2 electrolyte abnormality, UTI among others. Data reviewed: vital signs, nurses notes, EMS record. 07:01 Transition of care: After a detail discussion of the patient's case, care is sd2 transferred to Jameel Valdivia MD. 01/31 06:00 Order name: CBC with Diff; Complete Time: 06:55 sd2 01/31 06:00 Order name: CMP; Complete Time: 07:53 sd2 01/31 06:00 Order name: Magnesium; Complete Time: 07:53 sd2 01/31 06:00 Order name: Troponin High Sensitivity; Complete Time: 07:53 sd2 01/31 06:00 Order name: Urine Microscopic Only; Complete Time: 07:53 sd2 01/31 06:10 Order name: BNP; Complete Time: 07:53 sd2 01/31 06:00 Order name: XRAY Chest (1 view) ak2 01/31 07:13 Order name: CT Head Brain wo Cont; Complete Time: 08:18 jacqueline 01/31 07:13 Order name: US Carotid Artery Bilateral jacqueline 01/31 07:13 Order name: SARS RAPID; Complete Time: 08:18 jacqueline 01/31 07:23 Order name: Urine Dipstick-Ancillary; Complete Time: 07:53 EDMS 01/31 06:00 Order name: EKG - Nurse/Tech; Complete Time: 06:33 sd2 01/31 06:00 Order name: Orthostatics; Complete Time: 06:09 sd2 01/31 06:00 Order name: Urine Dipstick-Ancillary (obtain specimen); Complete Time: 07:23 sd2 01/31 08:22 Order name: Orthostatic Blood Pressure; Complete Time: 08:47 [facility] EC:22 Rate is 62 beats/min. Rhythm is regular. QRS [place] is Normal. MI interval is normal. QRS jacqueline interval is normal. QT interval is normal. No Q waves. T waves are Normal. No ST changes noted. Clinical impression: Abnormal EKG without significant change and No evidence of ischemia. Interpreted by me. Reviewed by me. Administered Medications: 06:39 Drug: NS 0.9% 1000 ml Route: IV; Rate: 100 ml/hr; Site: left antecubital; ha1 09:10 Follow up: Response: No adverse reaction; IV Status: Completed infusion; IV Intake: db 100ml 07:17 Drug: NS 0.9% 500 ml Route: IV; Rate: bolus; Site: left antecubital; db 09:10 Follow up: Response: No adverse reaction; IV Status: Completed infusion; IV Intake: db 500ml 08:30 Drug: Meclizine 25 mg Route: PO; db 09:09 Follow up: Response: No adverse reaction db Disposition Summary: 01/31/22 08:24 Discharge Ordered Location: Home jacqueline Problem: new jacqueline Symptoms: have improved jacqueline Condition: Stable jacqueline Diagnosis - Weakness jacqueline - Dizziness and giddiness jacqueline - Hypotension due to drugs jacqueline - Essential (primary) hypertension jacqueline Followup: jacqueline - With: Private Physician - When: 2 - 3 days - Reason: Recheck today's complaints, Continuance of care, Re-evaluation by your physician Followup: jacqueline - With: Solitario Guzmán MD - When: 2 - 3 days - Reason: Recheck today's complaints, Re-evaluation by your physician Discharge Instructions: - Discharge Summary Sheet jacqueline - Dizziness jacqueline - Weakness jacqueline - Weakness, [id number] jacqueline - Dizziness, [id number] jacqueline - Hypotension jacqueline - Deconditioning jacqueline Forms: - Medication Reconciliation Form jacqueline - Thank You Letter jacqueline - Antibiotic Education jacqueline - Prescription Opioid Use jacqueline Prescriptions: - Meclizine 25 mg Oral Tablet - take 1 tablet by ORAL route every 8 hours As needed; 21 tablet; Refills: 0, jacqueline Product Selection Permitted Signatures: Dispatcher [employer] Jameel Anthony MD MD cha Wood, Tiffany tw5 Juliette Méndez MD MD sd2 Lakisha Brewer RN RN ha1 Chelsy Becker RN RN db
[2022-01-31] MEDS ORDERED: MECLIZINE HCL 12.5 MG TAB ONE (08:29)
--- NOTE | 2022-01-31 08:31 | RAD REPORT ---
EXAM DESCRIPTION: - CP - 01/31/2022 8:06 am CLINICAL HISTORY: DIZZINESS Headache, drowsiness COMPARISON: No comparisons TECHNIQUE: Real-time sonographic evaluation of both carotid systems was performed. Doppler interroga tion was performed with waveform tracing bilaterally. FINDINGS: Normal high resistance waveforms are noted in both external carotid arteries. The common c arotid arteries and internal carotid arteries show normal low resistance waveforms. Mild hard plaquing is seen in both carotid bulbs. Findings results in stenosis estimated less 50% roman aterally based on NASCET criteria. Peak systolic and end diastolic velocity values and the ICA/CCA ra tios are in the non-hemodynamically significant range. Antegrade flow seen in both vertebral arteries. IMPRESSION: Mild hard plaquing is seen both carotid bulbs. No evidence of a hemodynamically significant stenosis.
--- NOTE | 2022-01-31 08:33 | RAD REPORT ---
EXAM DESCRIPTION: RAD - Chest Single View - 01/31/2022 6:31 am CLINICAL HISTORY: dizzines Chest pain. COMPARISON: Chest Single View dated 05/21/2021; Chest Single View dated 04/29/2021; Chest Single View dated 03/20/2021; Chest Single View dated 07/22/2016 FINDINGS: Portable technique limits examination quality. The lungs are emphysematous but grossly clear. The heart is normal in size. No displaced fractures. IMPRESSION: Mild COPD.
[2022-01-31 09:14] VITALS: TEMP 98.4
[2022-01-31 09:22] VITALS: BP 120/41; O2SAT 96
--- NOTE | 2022-02-01 15:31 | EKG ---
Test Date: 2022-01-31 Test Time: 06:17:51 Car Rental Sales Assistant: VERONICA MEASUREMENT RESULTS: Intervals: Rate: 62 DE: 158 QRSD: 142 QT: 436 QTc: 442 Adams: P: 73 DE: 158 QRS: -56 T: 27 INTERPRETIVE STATEMENTS: Normal sinus rhythm Right bundle branch block Left anterior fascicular block Bifascicular block Abnormal ECG Compared to ECG 05/21/2021 10:37:42 No significant changes Electronically Signed On 02-01-22 15:28:57 [employer] by Carlos Warner
== END 2022-01-31 09:10 | disposition home or self-care (01) ==
LOC: ER 05:43
DX: I95.2 Hypotension due to drugs (principal); R53.1 Weakness; I10 Essential (primary) hypertension; Z20.822 Contact with and (suspected) exposure to COVID-19
CPT/HCPCS: 36415; 70450; 71045; 80053; 81003; 81015; 83735; 83880; 84484; 85025; 87811; 93005; 93880; 96360; 96361; 99285; J7030; J8597

== ENCOUNTER 2022-02-01 15:50 | Emergency (ER) | payer SELFPAY ==
--- OUTSIDE RECORDS SUMMARY | 2022-02-01 16:41 | XMS REPORT | Clinical Summary ---
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 Refill Genitourinary Yfn Palacios MD Adenocarci noma of Oncology prostate 09/23/2021 Refill Radiation Oncology Ashley Jones 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, NURSE CASE MANAGEMENT prostate 09/21/2021 Refill Genitourinary Yfn Palacios MD [...] Genitourinary Robert, Essential (sukumar yas) Oncology Renju, DIRECTOR OF HEALTH CARE MARKETING hypertension 04/29/2021 Orders Only Cardiology Joe Baldwin atri al Oma, PA fibrillation (Primary Dx) 04/29/2021 Telephone Radiation Oncology Serena Stuart, W[employer]DING MAKEUP ARTIST 03/20/2021 Orders Only Cardiology Zachary, Essential (prim aislinn) Angelika Rush RN hypertensio n (Primary Dx) 03/20/2021 Documentation Cardiology Angelika Sharma RN after 02/01/2021 Immunizations Name Administration Dates Next Due Kendra SARS-CoV-2 Vaccination 05/31/2020 remdesivir 03/07/2020, 03/06/2020, 03/05/2020, 03/04/2020, 03/03/2020 Surgical History Surgery Date Site/Laterality Comments LAPAROSCOPIC CHOLECYSTECOMY PROSTATE BIOPSY 09/14/2019 HERNIA REPAIR Bilateral SHOULDER SURGERY 03/14/2011 - Right 03/13/2012 ID COLONOSCOPY FLX DX 07/28/2020 N/A Procedure: DIAGNOSTIC [...] at Date Recorded Male 05/22/2021 5:00 PM [employer] SYSTEM[employer] WORK[employer] Job Start Date Occupation Industry Not on [...] (138 lb 7.2 oz) 05/22/2021 9:14 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 TROPONIN T Routine 05/23/2021 1:05 Results for this PM [employer] SYSTEM[employer] WORKER procedure are i n the results section. CALCIUM LEVEL TOTAL AM 05/23/2021 2:00 Resul ts for this AM [employer] SYSTEM[employer] WORKER procedure are i n the results section. .GLOMERULAR FILTRATION AM 05/23/2021 2:00 Re sults for this RATE AM G[employer] SYSTEMS WORKER procedure are i n the results section. SERUM CREATININE AM 05/23/2021 2:00 Results for this AM [employer] SYSTEMS WORKER procedure are i n the results section. ELECTROLYTE PANEL AM 05/23/2021 2:00 Results for this AM [employer] SYSTEMS WORKER procedure are i n the results section. BLOOD UREA NITROGEN AM 05/23/2021 2:00 Resul ts for this AM [employer] SYSTEMS WORKER procedure are i n the results section. GLUCOSE LEVEL AM 05/23/2021 2:00 Results for this AM [employer] SYSTEMS WORKER procedure are i n the results section. TROPONIN T AM 05/23/2021 2:00 Results for this AM [employer] SYSTEMS WORKER procedure are i n the results section. PHOSPHORUS LEVEL AM 05/23/2021 2:00 Results for this AM [employer] SYSTEM[employer] WORKER procedure are i n the results section. MAGNESIUM LEVEL AM 05/23/2021 2:00 Results f or this AM [employer] SYSTEMS WORKER procedure are i n the results section. BASIC METABOLIC PANEL, AM 05/23/2021 2:00 CALCIUM TOTAL AM G[employer] SYSTEMS WORKER CT ABDOMEN PELVIS W STAT 05/23/2021 12:00 Resu lts for this CONTRAST AM [employer] SYSTEMS WORKER procedure are i n the results section. CT CHEST PULMONARY STAT 05/23/2021 12:00 Resul ts for this EMBOLISM W CONTRAST AM [employer] SYSTEMS WORKER procedur e are in the results section. XR ABDOMEN 2 VW AP W STAT 05/22/2021 6:24 Resu lts for this UPRIGHT AND OR DECUBITUS PM GAS SYSTEMS WORKER pro cedure are in the results section. TROPONIN T STAT 05/22/2021 5:42 Results for this PM [employer] SYSTEMS WORKER procedure are i n the results section. XR CHEST 1 VW Routine 05/22/2021 3:05 Results for this PM [employer] SYSTEMS WORKER procedure are i n the results section. FRACTIONATED BILIRUBIN Now 05/22/2021 1:53 Re sults for this PM [employer] SYSTEMS WORKER procedure are i n the results section. TOTAL PROTEIN Now 05/22/2021 1:53 Results for this PM [employer] SYSTEMS WORKER procedure are i n the results section. ASPARTATE Now 05/22/2021 1:53 Results for this AMINOTRANSFERASE PM [employer] SYSTEMS WORKER procedure a re in the results section. ALANINE AMINOTRANSFERASE Now 05/22/2021 1:53 Results for this PM [employer] SYSTEMS WORKER procedure are i n the results section. ALKALINE PHOSPHATASE Now 05/22/2021 1:53 Resu lts for this PM [employer] SYSTEMS WORKER procedure are i n the results section. ALBUMIN LEVEL Now 05/22/2021 1:53 Results for this PM [employer] SYSTEMS WORKER procedure are i n the results section. CALCIUM LEVEL TOTAL Now 05/22/2021 1:53 Resul ts for this PM G[employer] SYSTEMS WORKER procedure are i n the results section. .GLOMERULAR FILTRATION Now 05/22/2021 1:53 Re sults for this RATE PM GAS SYSTEMS WORKER procedure are i n the results section. SERUM CREATININE Now 05/22/2021 1:53 Results for this PM GAS SYSTEMS WORKER procedure are i n the results section. ELECTROLYTE PANEL Now 05/22/2021 1:53 Results for this PM GAS SYSTEMS WORKER procedure are i n the results section. BLOOD UREA NITROGEN Now 05/22/2021 1:53 Resul ts for this PM G[employer] SYSTEMS WORKER procedure are i n the results section. GLUCOSE LEVEL Now 05/22/2021 1:53 Results for this PM GAS SYSTEMS WORKER procedure are i n the results section. MANUAL DIFFERENTIAL STAT 05/22/2021 1:53 Resul ts for this PM G[employer] SYSTEMS WORKER procedure are i n the results section. Results CBC STAT 05/22/2021 1:53 Results for this PM GAS SYSTEMS WORKER procedure are i n the results section. D DIMER Now 05/22/2021 1:53 Results for this PM G[employer] SYSTEMS WORKER procedure are i n the results section. APTT Now 05/22/2021 1:53 Results for this PM G[employer] SYSTEMS WORKER procedure are i n the results section. PROTHROMBIN TIME Now 05/22/2021 1:53 Results for this PM G[employer] SYSTEMS WORKER procedure are i n the results section. NT PRO BNP Now 05/22/2021 1:53 Results for this PM G[employer] SYSTEMS WORKER procedure are i n the results section. CARDIAC PANEL Timed Study 05/22/2021 1:53 Results for this PM GAS SYSTEMS WORKER procedure are i n the results section. PHOSPHORUS LEVEL Now 05/22/2021 1:53 Results for this PM G[employer] SYSTEMS WORKER procedure are i n the results section. MAGNESIUM LEVEL Now 05/22/2021 1:53 Results f or this PM G[employer] SYSTEMS WORKER procedure are i n the results section. COMPREHENSIVE METABOLIC Now 05/22/2021 1:53 PANEL PM GAS SYSTEMS WORKER COMPLETE BLOOD COUNT W/ Now 05/22/2021 1:53 DIFFERENTIAL PM GAS SYSTEMS WORKER RESPIRATORY VIRAL Now 05/22/2021 1:53 Results for this MULTIPLEX PCR PANEL, PM GAS SYSTEMS WORKER procedu re are in NASOPHARYNGEAL SWAB the resu lts section. POC TROPONIN I Routine 05/22/2021 1:49 Results fo r this PM GAS SYSTEMS WORKER procedure are i n the results section. EKG, 12-LEAD (PORTABLE) STAT 05/22/2021 EKG, 12-LEAD (PORTABLE) STAT 05/22/2021 after 02/01/2021 Results (ABNORMAL) Troponin T (In-House) (05/26/2021 3:15 AM CDT)Only the most recent of 7 resultswithin the time period is included. P athologist Signature Troponin T 79 (C) <=18 ng/L [facility] Comment: < 19 ng/L Suggest [...] Organization Address City/State/ZIP Code Phon e Number [facility] CANCER Unless otherwise noted, [place] [address] [place] all lab tests performed by: Division of Pathology and Laboratory Medicine [address] Left Heart Cath (05/25/2021 3:45 PM CDT) [...] imaginD volumes were not performed in this [facility]. Cardiac Mechanics/Speckle Tracking Imagi ng: Normal global [...] Signature Testoster Tot 313 193 - 740 [facility] ng/dL [facility] Comment: Reference Ranges: Male: [...] Organization Address City/State/ZIP Code Phon e Number [facility] CANCER Unless otherwise noted, [address] all lab tests performed by: Division of Pathology and Laboratory Medicine [facility]5 [employer] Prostate Specific Antigen (PSA) Diagnostic (05/25/2021 4:59 AM CDT) athologist [facility] PSA 0.2 0.0 - 4.0 [facility] ng/mL [facility]ENTER Comment: Results greater than 4519 ng/mL may not be reliable due to matrix effect with extended dilution as it exceeds the glass setter's recommended limit. Caution should be exercised when interpreting mcgraw ch values and done in conjunction with clinical context. PSA Indication Diagnostic [facility] Specimen Anatomical Collection Method Collection Time Receive d Time (Source) Location / / Volume Laterality Blood 05/25/2021 4:59 AM 2 5:26 CDT AM CDT Almas Cadena MD LAB BLOOD ORDERABLES Performing Organization Address City/State/ZIP [facility] Phon e Number [facility] Unless otherwise noted, [address] all lab tests performed by: Division of Pathology and Laboratory Medicine [facility] [place] Clot Expiration Date (05/24/2021 1:07 PM CDT) [facility] gist Method Time [facility] T & S 05/27/2021 [facility] Specimen Anatomical Collection Method Collection Time Receive d Time (Source) Location / / Volume Laterality Blood 05/24/2021 1:07 PM 2 1:51 CDT PM CDT Oma JOHNSON BLOOD BANK TEST ORDERABLES Performing Organization Address City/State/ZIP [facility] Phon e Number [facility] CANCER Unless otherwise noted, [address] all lab tests performed by: Division of Pathology and Laboratory Medicine [facility] [employer] aPTT (05/24/2021 1:07 PM CDT)Only the most recent of2 resultswithin the time period is included. athologist [facility] aPTT 34.8 24.7 - 36.8 [facility](s) CANCER [place] Specimen Anatomical Collection Method Collection Time Receive d Time (Source) Location / / Volume Laterality Blood 05/24/2021 1:07 PM 2 1:16 CDT PM CDT Oma Baldwin ELIZABETH LAB BLOOD ORDERABLES Performing Organization Address City/State/ZIP Code Phon e Number [facility] Unless otherwise noted, [address] all lab tests performed by: Division of Pathology and Laboratory Medicine [address] [place] [address] Immature Platelet Fraction (05/24/2021 1:07 PM CDT) [facility] IPF 5.6 0.8 - 6.2 % [facility] Specimen Anatomical Collection Method Collection Time Receive d Time (Source) Location / / Volume Laterality Blood 05/24/2021 1:07 PM 2 1:16 CDT PM CDT Narrative [facility] - 2 1:31 PM CDT For patients with Platelets lower than 1 00 k/mm3 Oma Gardhina JOHNSON LAB BLOOD ORDERABLES Performing Organization Address City/[facility]/ZIP Code Phon e Number [facility] Unless otherwise noted, [address] all lab tests performed by: Division of Pathology and Laboratory Medicine [address] [place] [address] [place] ABORh (05/24/2021 1:07 PM CDT) [facility] ABORh. O POS [facility] Specimen Anatomical Collection Method Collection Time Receive d Time (Source) Location / / Volume Laterality Blood 05/24/2021 1:07 PM 2 1:51 CDT PM CDT Oma Gardhina JOHNSON BLOOD BANK TEST ORDERABLES Performing Organization Address City/[facility]/ZIP Code Phon e Number [facility] Unless otherwise noted, [address] all lab tests performed by: Division of Pathology and Laboratory Medicine [address] [place] [address] (ABNORMAL) Prothrombin Time (05/24/2021 1:07 PM CDT)Only the most recent of2 resultswithin the time period is included. [facility] PT 15.5 (H) 11.5 - 13.9 [facility](s) [facility] INR 1.31 (H) 0.90 - 1.10 [facility] Specimen Anatomical Collection Method Collection Time Receive d Time (Source) Location / / Volume Laterality Blood 05/24/2021 1:07 PM 2 1:16 CDT PM CDT Oma JOHNSON LAB BLOOD ORDERABLES Performing Organization Address City/State/ZIP Code Phon e Number [facility] Unless otherwise noted, [address] all lab tests performed by: Division of Pathology and Laboratory Medicine [address] [place] [address] (ABNORMAL) Retic Auto (05/24/2021 1:07 PM CDT) athologist [facility] Retic Cnt Auto 1.7 (H) 0.5 - 1.5 [facility] RETHE 33.7 23.2 - [facility] 37.5 [facility] CENTER IRF 12.0 2.3 - 18.0 [facility] Specimen Anatomical Collection Method Collection Time Receive d Time (Source) Location / / Volume Laterality Blood 05/24/2021 1:07 PM 2 1:16 CDT PM CDT Narrative [facility] - 2 1:31 PM CDT For patients with Platelets lower than 1 00 k/mm3 Oma JOHNSON LAB BLOOD ORDERABLES Performing Organization Address City/[facility]/ZIP Code Phon e Number [facility] Unless otherwise noted, [address] all lab tests performed by: Division of Pathology and Laboratory Medicine [address] [place] [address] .Serum Creatinine (05/24/2021 4:19 AM CDT)Only the most recent of3 resultswithin the time period is included. athologist [facility] Creatinine 0.98 0.67 - 1.17 [facility] mg/dL [facility] CENTER Specimen Anatomical Collection Method Collection Time Receive d Time (Source) Location / / Volume Laterality Blood 05/24/2021 4:19 AM 2 4:44 CDT AM CDT Donell Saini NP LAB BLOOD ORDERABLES Performing Organization Address City/State/ZIP Code Phon e Number [facility] Unless otherwise noted, [address] all lab tests performed by: Division of Pathology and Laboratory Medicine [address] [place] [address] Glomerular Filtration Rate (05/24/2021 4:19 AM CDT)Only the most recent of3 resultswithin the time period is included. P athologist Signature eGFR-AA 84 >=60 [place] MD FRIEDMAN mL/min/1.73 [facility] CENTER sq. m [...] <15 eGFR-DARIEN 73 >=60 mL/min/1.73 sq. m [place] Jailyn PRAKASH [facility] [place] Comment: Normal eGFR: >= 60 mL/min/1.73 m2 [...] Organization Address City/State/ZIP Code Phon e Number [place] [facility] Unless otherwise noted, [address] all lab tests performed by: Division of Pathology and Laboratory Medicine [address] BUN (05/24/2021 4:19 AM CDT)Only the most recent of3 resultswithin the time period is included. P athologist Signature BUN 23 6 - 23 [facility] mg/dL [facility] Specimen Anatomical Collection Method Collection Time Receive d Time (Source) Location / / Volume Laterality Blood 05/24/2021 4:19 AM 2 4:44 CDT AM CDT Donellmaximiliano Herreraen NURSE CASE MANAGEMENT LAB BLOOD ORDERABLES Performing Organization Address City/[facility]/ZIP [facility] Phon e Number [facility] Unless otherwise noted, [address] all lab tests performed by: Division of Pathology and Laboratory Medicine [address] [place] [address] [place] Phosphorus Level (05/24/2021 4:19 AM CDT)Only the most recent of3 resultswithin the time period is included. athologist Signature Phosphorus 4.3 2.5 - 4.5 [facility] mg/dL [facility] Specimen Anatomical Collection Method Collection Time Receive d Time (Source) Location / / Volume Laterality Blood 05/24/2021 4:19 AM 2 CDT 4:44 AM CDT Donellmaximiliano Herreraen NURSE CASE MANAGEMENT LAB BLOOD ORDERABLES Performing Organization Address City/[facility]/ZIP Code Phon e Number [facility] Unless otherwise noted, [address] all lab tests performed by: Division of Pathology and Laboratory Medicine [address] [place] [address] [place] Magnesium Level (05/24/2021 4:19 AM CDT)Only the most recent of3 resultswithin the time period is included. athologist Signature Magnesium 2.1 1.6 - 2.6 [facility] mg/dL [facility] Specimen Anatomical Collection Method Collection Time Receive d Time (Source) Location / / Volume Laterality Blood 05/24/2021 4:19 AM 2 4:44 CDT AM CDT Donell Saini NURSE CASE MANAGEMENT LAB BLOOD ORDERABLES Performing Organization Address City/[facility]/ZIP [facility] Phon e Number [facility] Unless otherwise noted, [address] all lab tests performed by: Division of Pathology and Laboratory Medicine [address] (ABNORMAL) Glucose Level (05/24/2021 4:19 AM CDT)Only the most recent of3 resultswithin the time period is included. P athologist Signature Glucose Level 102 (H) 70 - 99 [facility] mg/dL [facility] Comment: Effective 10/08/15, the glucose reference intervals have been updated based on [place] Diabetes [employer] guidelines (Standards of Medical Care [...] NP LAB BLOOD ORDERABLES Performing Organization Address City/State/[facility] Phon e Number [facility] CANCER Unless otherwise noted, [address] all lab tests performed by: Division of Pathology and Laboratory Medicine [address] [facility] Calcium Level (05/24/2021 4:19 AM CDT)Only the most recent of3 resultswithin the time period is included. athologist Signature Calcium Lvl 8.9 8.4 - 10.2 [facility] mg/dL [facility] Specimen Anatomical Collection Method Collection Time Receive d Time (Source) Location / / Volume Laterality Blood 05/24/2021 4:19 AM 2 4:44 CDT AM CDT Donell Saini NP LAB BLOOD ORDERABLES Performing Organization Address City/[facility]/ZIP [facility] Phon e Number [facility] CANCER Unless otherwise noted, [address] all lab tests performed by: Division of Pathology and Laboratory Medicine [address] Electrolyte Panel (05/24/2021 4:19 AM CDT)Only the most recent of3 resultswithin the time period is included. P athologist Signature Sodium Lvl 142 136 - 145 [facility] mEq/L [facility] Potassium Lvl 4.2 3.5 - 5.1 [facility] mEq/L [facility] Chloride 106 98 - 107 [facility] mEq/L [facility] CO2 23 22 - 29 [facility] mEq/L [facility] Anion Gap 13 4 - 14 [facility] mEq/L [facility] Specimen Anatomical Collection Method Collection Time Receive d Time (Source) Location / / Volume Laterality Blood 05/24/2021 4:19 AM 4:44 CDT AM CDT Donell Saini NP LAB BLOOD ORDERABLES Performing Organization Address City/State/ZIP Code Phon e Number [facility] CANCER Unless otherwise noted, [place] [address] [place] all lab tests performed by: Division of Pathology and Laboratory Medicine [address] EKG, 12-Lead (05/24/2021)Only the most recent of3 resultswithin the time period is included. Specimen (Source) Anatomical Location Collection Method / Collectio n Time Received Time / Laterality Volume Narrative This result has an attachment that is no t available. Butch Cole MD ECG ORDERABLES Performing Organization Address City/State/ZIP Code Phon e Number [facility]EL IECG CT Chest Pulmonary Embolism with Contrast (05/23/2021 12:00 AM GAS SYSTEMS WORKER) Anatomical Region Laterality Modality Chest Computed Tomography Specimen (Source) Anatomical Collection Method Collection Time Re ceived Time Location / / Volume Laterality 05/23/2021 12:07 AM GAS SYSTEMS WORKER Impressions 05/23/2021 7:40 AM GAS SYSTEMS WORKER No evidence for pulmonary embolism. The right [...] the final report. Narrative 05/23/2021 7:40 AM GAS SYSTEMS WORKER FULL RESULT: Examination: CT CHEST PULMONARY EMBOLISM [...] Abdomen Pelvis with Contrast (05/23/2021 12:00 AM GAS SYSTEMS WORKER) Anatomical Region Laterality Modality Abdomen, Pelvis Computed Tomography Specimen (Source) Anatomical Collection Method Collection Time Re ceived Time Location / / Volume Laterality 05/23/2021 3:49 AM GAS SYSTEMS WORKER Impressions 05/23/2021 9:05 AM GAS SYSTEMS WORKER 1. Unremarkable loops of bowel without e [...] the final report. Narrative 05/23/2021 9:05 AM GAS SYSTEMS WORKER FULL RESULT: Examination: CT ABDOMEN PELVIS W [...] with the final report. Donell Saini NP [facility] CT ORDERABLES X-ray Abdomen 2 View AP W Upright and/or Decubitus (05/22/2021 6:24 PM GAS SYSTEMS WORKER) Anatomical Region Laterality Modality Abdomen Digital Radiography Specimen (Source) Anatomical Collection Method Collection Time Re ceived Time Location / / Volume Laterality 05/22/2021 6:43 PM GAS SYSTEMS WORKER Impressions 05/22/2021 6:45 PM GAS SYSTEMS WORKER Bowel gas pattern may represent evolving or partial small bowel obstruction. Narrative 05/22/2021 6:45 PM GAS SYSTEMS WORKER FULL RESULT: Examination: XR ABDOMEN 2 VW [...] partial small bowel obstruction. Donell Saini NP [facility] DIAGNOSTIC IMAGING ORDER AMINAH X-ray Chest 1 View (05/22/2021 3:05 PM GAS SYSTEMS WORKER) Anatomical Region Laterality Modality Chest Digital Radiography Specimen (Source) Anatomical Collection Method Collection Time Re ceived Time Location / / Volume Laterality 05/22/2021 3:06 PM GAS SYSTEMS WORKER Impressions 05/22/2021 3:07 PM GAS SYSTEMS WORKER No acute thoracic opacity. Narrative 05/22/2021 3:07 PM GAS SYSTEMS WORKER FULL RESULT: Examination: XR CHEST 1 VW, 05/22/2021 3: 05 PM Clinical History: Prostate Carcinoma Indication: Chest pain/Shortness of [place] th Comparison: 08/21/2020. Technique: Portable anteroposterior, 1 [...] No acute thoracic opacity. Latoya Pichardo MD [facility] DIAGNOSTIC IMAGING ORDER AMINAH Respiratory Viral Panel + COVID-19, Nasopharyngeal Swab (05/22/2021 1:53 PM GAS SYSTEMS WORKER) [facility] Method Time Signature Adenovirus Not Not SHAHZAD ANDINO Detected Detected [facility] Coronavirus 229E Not Not [place] Detected Detected [facility] Coronavirus HKU1 Not Not [place] Detected Detected [facility] Coronavirus NL63 Not Not [place] Detected Detected [facility] Coronavirus OC43 Not Not [place] Detected Detected [facility] COVID19 Not Not [place] (SARS-CoV-2) Detected Detected [facility] Human Not Not [place] Metapneumovirus Detected Detected [facility] Human Not Not SHAHZAD ANDINO Rhinovirus/Enterov Detected Detected [facility] Influenza A Not Not SHAHZAD ANDINO Detected Detected [place] Influenza A H1 Not Not SHAHZAD ANDINO Detected Detected [place] Influenza A H1 Not Not [facility] MD 2009 Detected Detected [place] Influenza A H3 Not Not [facility] MD Detected Detected [place] Influenza B Not Not [place] MD Detected Detected [facility] Parainfluenza 1 Not Not [facility] MD Detected Detected [facility] Parainfluenza 2 Not Not [facility] MD Detected Detected [facility] Parainfluenza 3 Not Not [facility] MD Detected Detected [facility] Parainfluenza 4 Not Not [facility] MD Detected Detected [facility] Respiratory Not Not [place] MD Syncytial Virus Detected Detected [facility] Bordetella Not Not [place] MD Parapertussis Detected Detected [facility] Bordetella Not Not [place] MD pertussis Detected Detected [facility] Chlamydiophila Not Not [place] MD pneumoniae Detected Detected [facility] Mycoplasma Not Not [place] MD pneumoniae Detected Detected [facility] Specimen (Source) Anatomical Collection Method Collection Time Re ceived Time Location / / Volume Laterality Nasopharyngeal Swab 05/22/2021 1:53 05/22 PM GAS SYSTEMS WORKER 2:57 PM GAS SYSTEMS WORKER Narrative [facility] MD [facility] - 4:18 PM GAS SYSTEMS WORKER The [employer] RP2.1 is a real-time, nested multiplexed polymerase chain reaction test designed to simul taneously identify nucleic acids from 22 different viruses and bacteria associated with respiratory tract infection, including SARS-CoV-2, from a single nasopharyngeal swab (DRIP MOLDER) specimen obtai cruz from individuals suspected of [...] that may not be detected by an DRIP MOLDER specimen. Internal controls are used to monitor [...] and high-complexity tests. The Microbiology [facility] at [facility], CLIA Accreditation #[id number] and CAP Accreditation #[id number], verified the per formance characteristics of this assay. [facility] performs the assay using the [employer] System. The BioFire RP 2.1 is a real-time, nested multiplexed p olymerase chain reaction test designed to simultan eously identify nucleic acids from 22 different viruses and bacteria associated with respiratory tract infection, including SARS-CoV-2, from a single nasopharynge al swab (DRIP MOLDER) specimen obtained from ind ividuals suspected of [...] that may not be detected by an DRIP MOLDER specimen. Internal controls are used to monitor [...] and high-complexity tests. The Microbiology [facility] at [facility], CLIA Accreditation #[id number] and CAP Accreditation #[id number], verified the per formance characteristics of this assay. [facility] performs the assay using the [employer] System. Latoya Pichardo MD MICROBIOLOGY - GENERAL ORDER AMINAH Performing Organization Address City/State/ZIP Code Phon e Number [facility] CANCER Unless otherwise noted, [place] [address] [place] all lab tests performed by: Division of Pathology and Laboratory Medicine Clare5 Ligia Vu (ABNORMAL) .CBC (05/22/2021 1:53 PM GAS SYSTEMS WORKER) athologist Signature WBC 6.7 4.0 - 11.0 [place] [facility] RBC 4.57 4.50 - [place] 6.00 /[facility] Hgb 13.5 (L) 14.0 - [place] MD 18.0 gm/dL [facility] Hct 42.7 40.0 - [place] 54.0 % [facility] MCV 93 82 - 98 fL [facility] MCH 29.5 27.0 - [place] 31.0 pg [place] MCHC 31.6 31.0 - [place] 36.0 gm/dL [facility] RDW-SD 49.6 (H) 35.1 - [place] 46.3 fL [facility] RDW-CV 14.6 12.0 - [place] MD 15.5 % [facility] Platelet count 172 140 - 440 [facility] K/uL [facility] MPV 11.1 (H) 4.0 - 10.4 [facility] fL [facility] INRBC 0.0 <=0.0 % [facility] Comment: The INRBC (instrument NRBC) [...] Laterality Blood 05/22/2021 1:53 PM 2 1:59 GAS SYSTEMS WORKER PM GAS SYSTEMS WORKER Latoya Pichardo MD LAB BLOOD ORDERABLES Performing Organization Address City/State/ZIP Code Phon e Number [facility] Unless otherwise noted, [place], [place] [id number] [place] [address] all lab tests performed by: Division of Pathology and Laboratory Medicine [address] [place] [address] Fractionated Bilirubin (05/22/2021 1:53 PM GAS SYSTEMS WORKER) athologist Signature Bili Total 0.4 <=1.2 mg/dL [facility] Comment: Indocyanine Green (ICG) may cause falsel y elevated bilirubin results. Total and direct bilirubin must not be measured from samples containing indocyanine green. False elevation of total bilirubin can b e seen in patients with IgG concentrations above 28 g/L. Bili Direct <0.2 <=0.3 mg/dL [facility] Comment: Indocyanine Green (ICG) may cau se falsely elevated bilirubin results. Total and direct bilirubin must not be measure d from samples containing indocyanine green. Bili Indirect See Note 0.0 - 0.9 mg/dL [place] MD [facility] [facility] Comment: Unable to calculate Indirect Bi lirubin result due to some parameters are outside reportable range Specimen Anatomical Collection Method Collection Time Receive d Time (Source) Location / / Volume Laterality Blood 05/22/2021 1:53 PM 2 2:00 GAS SYSTEMS WORKER PM GAS SYSTEMS WORKER Latoya Pichardo MD LAB BLOOD ORDERABLES Performing Organization Address City/[facility] Phon e Number [facility] Unless otherwise noted, [address] all lab tests performed by: Division of Pathology and Laboratory Medicine [address] (ABNORMAL) Cardiac Panel (05/22/2021 1:53 PM GAS SYSTEMS WORKER) athologist [facility] CK 148 39 - 308 [facility] U/L [facility] CK MB 6.3 <=10.4 [facility] ng/mL [facility] Troponin T 67 (C) <=18 ng/L [facility] Comment: < 19 ng/L Suggest [...] Laterality Blood 05/22/2021 1:53 PM 2 2:16 GAS SYSTEMS WORKER PM GAS SYSTEMS WORKER Latoya Pichardo MD LAB BLOOD ORDERABLES Performing Organization Address City/[facility] Phon e Number [facility] Unless otherwise noted, [address] all lab tests performed by: Division of Pathology and Laboratory Medicine [address] [facility] [place] (ABNORMAL) NT-Pro BNP (In-House) (05/22/2021 1:53 PM GAS SYSTEMS WORKER) athologist [facility] NT ProBNP 538 (H) <=450 pg/mL [facility] Specimen Anatomical Collection Method Collection Time Receive d Time (Source) Location / / Volume Laterality Blood 05/22/2021 1:53 PM 2 2:00 GAS SYSTEMS WORKER PM GAS SYSTEMS WORKER Latoya Pichardo MD LAB BLOOD ORDERABLES Performing Organization Address City/[facility]/ZIP Code Phon e Number [facility] Unless otherwise noted, [place] [address] [place] all lab tests performed by: Division of Pathology and Laboratory Medicine [address] Ligia Vu (ABNORMAL) Differential (05/22/2021 1:53 PM GAS SYSTEMS WORKER) [facility] Neutrophil % 77.0 (H) 42.0 - [facility] 66.0 % CANCER CENTER Lymphocyte % 11.6 (L) 24.0 - [facility] 44.0 % CANCER CENTER Monocyte % 9.2 (H) 2.0 - 7.0 [facility] % CANCER CENTER Eosinophil % 1.2 1.0 - 4.0 [facility] % [facility] CENTER Basophil % 0.6 0.0 - 1.0 [facility] % [facility] CENTER IGRE % 0.4 0.0 - 0.4 [facility] % [facility] CENTER Comment: IGRE % count includes Metamyelo cytes, Myelocytes, and Promyelocytes. Neutrophil Abs 5.16 1.70 - 7.30 K/uL [facility] Lymphocyte Abs 0.78 (L) 1.00 - 4.80 K/uL [place] [facility] Monocyte Abs 0.62 0.08 - 0.70 K/uL [place] Eosinophil Abs 0.08 0.04 - 0.40 K/uL [place] [facility] Basophil Abs 0.04 0.00 - 0.10 K/uL [place] [facility] [facility] IG Abs 0.03 0.00 - 0.04 K/uL [place] COM[place] Val[place] [facility] Specimen Anatomical Collection Method Collection Time Receive d Time (Source) Location / / Volume Laterality Blood 05/22/2021 1:53 PM 2 1:59 GAS SYSTEMS WORKER PM GAS SYSTEMS WORKER Latoya Pichardo MD LAB BLOOD ORDERABLES Performing Organization Address City/State/ZIP Code Phon e Number [facility] Unless otherwise noted, [address] all lab tests performed by: Division of Pathology and Laboratory Medicine [facility]er (05/22/2021 1:53 PM GAS SYSTEMS WORKER) P athologist Signature D-Dimer 0.38 0.10 - 0.50 [facility] mcg/ml [facility] Comment: The cut off value for exclusion of venou s thromboembolism is <0.51 mcg/mL FEUs (fibrinogen equival ent units). Specimen Anatomical Collection Method Collection Time Receive d Time (Source) Location / / Volume Laterality Blood 05/22/2021 1:53 PM 2 1:59 GAS SYSTEMS WORKER PM GAS SYSTEMS WORKER Latoya Pichardo MD LAB BLOOD ORDERABLES Performing Organization Address City/[facility]/ZIP Code Phon e Number [facility] Unless otherwise noted, [address] all lab tests performed by: Division of Pathology and Laboratory Medicine [address] [place], [place] [address] ALT (05/22/2021 1:53 PM GAS SYSTEMS WORKER) athologist Signature ALT 13 <=41 U/L [facility] Specimen Anatomical Collection Method Collection Time Receive d Time (Source) Location / / Volume Laterality Blood 05/22/2021 1:53 PM 2 2:00 GAS SYSTEMS WORKER PM GAS SYSTEMS WORKER Latoya Pichardo MD LAB BLOOD ORDERABLES Performing Organization Address City/State/ZIP Code Phon e Number [facility] Unless otherwise noted, [address] all lab tests performed by: Division of Pathology and Laboratory Medicine [address] [place] [address] Aspartate Aminotransferase (05/22/2021 1:53 PM GAS SYSTEMS WORKER) athologist Signature AST 19 <=40 U/L [facility] Specimen Anatomical Collection Method Collection Time Receive d Time (Source) Location / / Volume Laterality Blood 05/22/2021 1:53 PM 2 2:00 GAS SYSTEMS WORKER PM GAS SYSTEMS WORKER Latoya Pichardo MD LAB BLOOD ORDERABLES Performing Organization Address City/State/ZIP Code Phon e Number [facility] Unless otherwise noted, [address] all lab tests performed by: Division of Pathology and Laboratory Medicine [address] [place] [address] [place] Total Protein (05/22/2021 1:53 PM GAS SYSTEMS WORKER) athologist [facility] Total Protein 7.1 6.4 - 8.3 [facility] g/dL [facility] Specimen Anatomical Collection Method Collection Time Receive d Time (Source) Location / / Volume Laterality Blood 05/22/2021 1:53 PM 2 2:00 GAS SYSTEMS WORKER PM GAS SYSTEMS WORKER Latoya Pichardo MD LAB BLOOD ORDERABLES Performing Organization Address City/State/ZIP Code Phon e Number [facility] Unless otherwise noted, [address] all lab tests performed by: Division of Pathology and Laboratory Medicine [address] [place] [address] [place] Alkaline Phosphatase (05/22/2021 1:53 PM GAS SYSTEMS WORKER) athologist [facility] Alk Phos 90 40 - 129 [facility] U/L [facility] Specimen Anatomical Collection Method Collection Time Receive d Time (Source) Location / / Volume Laterality Blood 05/22/2021 1:53 PM 2 2:00 GAS SYSTEMS WORKER PM GAS SYSTEMS WORKER Latoya Pichardo MD LAB BLOOD ORDERABLES Performing Organization Address City/State/ZIP Code Phon e Number [facility] Unless otherwise noted, [address] all lab tests performed by: Division of Pathology and Laboratory Medicine [address] [place] [address] [place] Albumin Level (05/22/2021 1:53 PM GAS SYSTEMS WORKER) [facility] Albumin Lvl 4.1 3.5 - 5.2 [facility] gm/dL [facility] Specimen Anatomical Collection Method Collection Time Receive d Time (Source) Location / / Volume Laterality Blood 05/22/2021 1:53 PM 2 2:00 GAS SYSTEMS WORKER PM GAS SYSTEMS WORKER Latoya Pichardo MD LAB BLOOD ORDERABLES Performing Organization Address City/State/ZIP Code Phon e Number [facility] Unless otherwise noted, [address] all lab tests performed by: Division of Pathology and Laboratory Medicine [address] [place] [address] [place] (ABNORMAL) POC Troponin I (05/22/2021 1:49 PM GAS SYSTEMS WORKER) athologist Signature POC CTNI 0.17 (H) 0.00 [...] Clean Dev Yes POC TELCOR Performing Lab [facility] POC TELCO R Comment: [facility], [address] [place] [id number]; Lab Direct or: Kelsea Stafford MD Specimen Anatomical Collection Method Collection Time Receive d Time (Source) Location / / Volume Laterality Blood 05/22/2021 1:49 PM 2 1:49 GAS SYSTEMS WORKER PM GAS SYSTEMS WORKER Nida Shaffer MD POCT ORDERABLES - DEVICE Performing Organization Address City/State/ZIP Code Phon e Number POC TELCOR after 02/01/2021 Advance Directives Code Status Date Activated Date Inactivated Comments Full Code 05/22/2021 4:44 PM 05/26/2021 7:54 PM Code Status Date Activated Date Inactivated Comments Full Code 05/22/2021 4:44 PM 05/22/2021 4:44 PM Full Code 08/21/2020 11:52 PM 08/24/2020 5:55 PM Full Code 03/02/2020 8:29 PM 03/07/2020 11:09 PM Full Code 02/26/2020 9:33 PM 02/29/2020 8:36 PM Care Teams Managing Member Relationship Specialty Start Date End Date Pako Lopez MD PCP - External Urology 10/11/19 [facility]: Referring [address] [place] [id number] Nick Delgado MD PCP - General Genitourinary Oncology 01/25/[address] [place] [id number] Margarita Saini-[facility], Consulting Physician Radiation Oncology 02/14/[address] [place] [id number]
--- OUTSIDE RECORDS SUMMARY | 2022-02-01 16:43 | XMS REPORT | Continuity of Care Document ---
:1940 Author Organization [facility] t Address [address] [place] [address] Care Team Providers Name Role Phone Brittany Lockwood Primary Care Physician [phone] Harlan Murray Attending Clinician Kye Palacios MD Attending Clinician Ashley Jones NP Attending Clinician Nida Shaffer MD Attending Clinician Zoey Cummins MD Attending Clinician Srinivas Nguyen MD Attending Clinician Almas Clements MD Attending Clinician OMA HOANG Attending Clinician Unavailable Barrett Jones APN Attending Clinician Oma Mederos Attending Clinician Serena Rodriges Attending Clinician Angelika Sharma RN Attending Clinician Unavailable Jesu Kait Deshpande Attending Clinician Florentin JEFFERY, Sanjuanita Attending Clinician Hang Menjivar RN Attending Clinician Unavailable AUBREY MORENO Attending Clinician Unavailable JORJE FRIED Attending Clinician Unavailable ERWIN ELMORE Attending Clinician Unavailable DEDE SOSA Attending Clinician Unavailable HAILY GREENWOOD Attending Clinician Unavailable Fermin Massey DO Attending Clinician SANJUANITA STRATTON Attending Clinician Unavailable Pako Lopez MD Attending Clinician Jaclyn Silver Attending Clinician Petra Bai RN Attending Clinician PAKO LOPEZ Attending Clinician Unavailable Doctor Unassigned, [place] Attending Clinician Unavailable Draw, [facility] Attending Clinician Unavailable ALMAS CLEMENTS Admitting Clinician Unavailable Problems Condition Condition Condition Status Onset Resolution Last Treating Co mments Source Name Details Category Date Date Treatment Clinician Date Acute Acute Disease Active Univers coronary coronary 3-13 ity of syndrome syndrome 00:00: [place] 00 MD [facility] High High Disease Active Univers troponin I troponin I 3-13 it y of level level 00:00: [place] MD Adeola [facility] Dyspnea Dyspnea Disease Active Univers 3-11 ity of 00:00: [place] MD Adeola [facility] Abdominal Abdominal Disease Active Uni vers pain pain 3-11 ity of 00:00: [place] 00 MD Adeola [facility] Atrial Atrial Disease Active Last Univers fibrillati fibrillati 6-11 Assessmen ity of on on 00:00: t & Plan: [place] [id number] Juan A fay of this Anderso note n might be [...] Active Uni vers 6-11 ity of 00:00: [place] 00 MD [facility] Chest pain Chest pain Disease Active U taylor 6-11 ity of 00:00: [place] MD [facility] Pneumonia Pneumonia Disease Active Uni vers 6-11 ity of 00:00: [place] MD Adeola [facility] [place] Hypotensio Hypotensio Disease Active U taylor santacruz n 6-11 ity of 00:00: [place] 00 MD Adeola [facility] [place] Insomnia Insomnia Disease Active Unive rs 3-05 ity of 00:00: [place] 00 MD Adeola [facility] [place] 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 00:00: [place] 00 MD Adeola [facility] [place] Overweight Overweight Disease Active U nivzoraida 2-06 ity of 00:00: [place] 00 MD Adeola santacruz [facility] Chronic Chronic Disease Active 2019-03 Univers back pain back pain 2-03 ity of 00:00: [place] 00 MD Adeola [facility] [place] 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 Blood pressure modestly controlle d in the clinicat 146/71. Continue managemen t with metoprolo l succinate 25 mg daily and enalapril 10 mg p.o. 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 00:00: [place] 00 MD Adeola [facility] Allergies, Adverse Reactions, Alerts Allergy Allergy Status Severity Reaction(s) Onset Inactive Treating Comm ents Source Name Type Date Date Clinician NO KNOWN Drug Active Univers ALLERGIE Class ity of S [facility] [place] [facility] Social History Social Habit Start Date Stop Date Quantity Comments Source Exposure to Not sure [facility]-CoV-2 (event) [facility] [place] [facility] History of tobacco Cigarette Smoker University of [facility] MD Dave gant [facility] History [facility] o f Alcohol Comment [facility] Alcohol intake 2021-05-22 2021-05-22 Ex-drinker University of 00:00:00 00:00:00 (finding) [place] MD Dave gant [facility] Cigarettes smoked 2020-02-13 2020-02-13 Univers ity of current (pack per 00:00:00 00:00:00 [facility] ) - Reported Cancer Ce nter Cigarette 2020-02-13 2020-02-13 University of pack-years 00:00:00 00:00:00 [place] MD Dave gant [facility] History SDCT 2020-02-13 2020-02-13 1 University o f Alcohol Frequency 00:00:00 00:00:00 [facility] History [facility] 2020-02-13 2020-02-13 99 University o f Alcohol Std Drinks 00:00:00 00:00:00 [facility] History [facility] 2020-02-13 2020-02-13 1 University o f Alcohol Binge 00:00:00 00:00:00 [place] MD Jaclyn noel [facility] Tobacco Comment 2020-02-13 2020-02-13 used to smoke; Unive rsity of 00:00:00 00:00:00 quit 12 years [place] MD Jaclyn noel [facility] Tobacco use and 2020-02-13 2020-02-13 Smokeless Universit y of exposure 00:00:00 00:00:00 tobacco non-user [facility] Sex [birth year] M Universit y of 00:00:00 00:00:00 [place] MD Dave gant [facility] Smoking Status Start Date Stop Date Source Unknown if ever smoked Universit [facility] Ex-smoker 2020-02-13 00:00:00 2020-02-13 00:00:00 Universi ty [facility] Medications Ordered Filled Start Stop [...] n <110 OR HR Cancer <55 ) [place] metoprolol Yes Essential TAKE ONE Univers succinate 9-21 (primary) TABLET BY ity of (TOPROL XL) 00:00: hypertensio MOUTH ONCE [place] 25 mg 24 hr 00 n DAILY ( MD tablet HOLD DOSE Anderso IF SBP n <110 OR HR Cancer <55 ) [place] metoprolol Yes Essential TAKE ONE Univers succinate 9-21 (primary) TABLET BY ity of (TOPROL XL) 00:00: hypertensio MOUTH ONCE [place] 25 mg 24 hr 00 n DAILY ( MD tablet HOLD DOSE Anderso IF SBP n <110 OR HR Cancer <55 ) [place] Dose No Unknown 9-14 00:00: 00 Dose 0 No Unknown 9-14 00:00: 00 pantoprazol Yes Adenocarcin TAKE ONE Univers e 9-08 geoff of TABLET BY ity of (PROTONIX) 00:00: prostate MOUTH [place] 40 mg EC 00 DAILY MD tablet [facility] pantoprazol Yes Adenocarcin TAKE ONE Univers e 9-08 geoff of TABLET BY ity of (PROTONIX) 00:00: prostate MOUTH [place] 40 mg EC 00 DAILY [facility] Adenocarcin TAKE ONE Univers e 9-08 geoff of TABLET BY ity of (PROTONIX) 00:00: prostate MOUTH [place] 40 mg EC 00 DAILY MD tablet [facility] pantoprazol Yes Adenocarcin TAKE ONE Univers e 9-08 geoff of TABLET BY ity of (PROTONIX) 00:00: prostate MOUTH [place] 40 mg EC 00 DAILY MD tablet [facility] enalapril Yes Adenocarcin TAKE ONE Univers (VASOTEC) 8-22 geoff of TABLET BY ity of 20 mg 00:00: prostate MOUTH [place] tablet 00 DAILY MD (SKIP DOSE Anderso IF n SYSTOLIC Cancer BLOOD Center PRESSURE IS LESS THAN 110) enalapril Yes Adenocarcin TAKE ONE Univers (VASOTEC) 8-22 geoff of TABLET BY ity of 20 mg 00:00: prostate MOUTH [place] tablet 00 DAILY MD (SKIP DOSE Anderso IF n SYSTOLIC Cancer [...] capsule 00 by mouth twice Anderso daily. n Cancer Center tamsulosin Yes Adenocarcin .4mg Take 1 Univers (FLOMAX) 8-19 geoff of capsule ity of 0.4 mg 24 00:00: prostate (0.4 mg) [place] hr capsule 00 by mouth twice Anderso daily. n [facility] Center tamsulosin Yes Adenocarcin .4mg Take 1 Univers (FLOMAX) 8-19 geoff of capsule ity of 0.4 mg 24 00:00: prostate (0.4 mg) [place] hr capsule 00 by mouth twice Anderso daily. [facility] tamsulosin Yes Adenocarcin .4mg Take 1 Univers (FLOMAX) 8-19 geoff of capsule ity of 0.4 mg 24 00:00: prostate (0.4 mg) [place] hr capsule 00 by mouth twice Anderso daily. [facility] tamsulosin Yes Adenocarcin .4mg Take 1 Univers (FLOMAX) 8-19 geoff of capsule ity of 0.4 mg 24 00:00: prostate (0.4 mg) [place] hr capsule 00 by mouth twice Anderso daily. [facility] tamsulosin Yes Adenocarcin .4mg Take 1 Univers (FLOMAX) 8-19 geoff of capsule ity of 0.4 mg 24 00:00: prostate (0.4 mg) [place] hr capsule 00 by mouth twice Anderso daily. [facility] tamsulosin Yes Adenocarcin .8mg Take 2 Univers (FLOMAX) 7-25 geoff of capsules ity o f 0.4 mg 24 00:00: prostate (0.8 mg) [place] hr capsule 00 by mouth at Anderso bedtime. [facility] tamsulosin Yes Adenocarcin .8mg Take 2 Univers (FLOMAX) 7-25 geoff of capsules ity o f 0.4 mg 24 00:00: prostate (0.8 mg) [place] hr capsule 00 by mouth at Anders bedtime. [facility] tamsulosin Yes Adenocarcin .8mg Take 2 Univers (FLOMAX) 7-25 geoff of capsules ity o f 0.4 mg 24 00:00: prostate (0.8 mg) [place] hr capsule 00 by mouth at Anders bedtime. [facility] tamsulosin Yes Adenocarcin .8mg Take 2 Univers (FLOMAX) 7-25 geoff of capsules ity o f 0.4 mg 24 00:00: prostate (0.8 mg) [place] hr capsule 00 by mouth at Anders bedtime. [facility] tamsulosin Yes Adenocarcin .8mg Take 2 Univers (FLOMAX) 7-25 geoff of capsules ity o f 0.4 mg 24 00:00: prostate (0.8 mg) [place] hr capsule 00 by mouth at [facility]. [facility] tamsulosin Yes Adenocarcin .8mg Take 2 Univers (FLOMAX) 7-25 geoff of capsules ity o f 0.4 mg 24 00:00: prostate (0.8 mg) [place] hr capsule 00 by mouth at [facility]. [facility] Yes Adenocarcin TAKE ONE Univers n (LIPITOR) 7-14 geoff of TABLET BY i ty of 80 mg 00:00: prostate MOUTH [place] tablet 00 EVERY MD NIGHT AT [facility] Yes Adenocarcin TAKE ONE Univers n (LIPITOR) 7-14 geoff of TABLET BY i ty of 80 mg 00:00: prostate MOUTH [place] tablet 00 EVERY MD NIGHT AT [facility] Adenocarcin TAKE ONE Univers n (LIPITOR) 7-14 geoff of TABLET BY i ty of 80 mg 00:00: prostate MOUTH [place] tablet 00 EVERY MD NIGHT AT [facility] Yes Adenocarcin TAKE ONE Univers n (LIPITOR) 7-14 geoff of TABLET BY i ty of 80 mg 00:00: prostate MOUTH [place] tablet 00 EVERY MD NIGHT AT [facility] atorvasti Yes Adenocarcin TAKE ONE Univers n (LIPITOR) 7-14 geoff of TABLET BY i ty of 80 mg 00:00: prostate MOUTH [place] tablet 00 EVERY MD NIGHT AT [facility] Yes Adenocarcin TAKE ONE Univers n (LIPITOR) 7-14 geoff of TABLET BY i ty of 80 mg 00:00: prostate MOUTH [place] tablet 00 EVERY MD NIGHT AT [facility] aspirin 81 Yes 81mg Chew 1 Unive rs mg chewable 3-16 tablet (81 it y of tablet 00:00: mg) daily. [place] [facility] aspirin 81 2021-0 Yes 81mg Chew 1 Unive rs mg chewable 3-16 tablet (81 it y of tablet 00:00: mg) daily. [place] MD [facility] aspirin 81 2022-0 Yes 81mg Chew 1 Unive rs mg chewable 3-16 tablet (81 it y of tablet 00:00: mg) daily. MD Adeola santacruz [facility] aspirin 81 2022-0 Yes 81mg Chew 1 Unive rs mg chewable 3-16 tablet (81 it y of tablet 00:00: mg) daily. MD Adeola santacruz [facility] aspirin 81 2022-0 Yes 81mg Chew 1 Unive rs mg chewable 3-16 tablet (81 it y of tablet 00:00: mg) daily. MD Adeola santacruz [facility] aspirin 81 2022-0 Yes 81mg Chew 1 Unive rs mg chewable 3-16 tablet (81 it y of tablet 00:00: mg) daily. MD Adeola santacruz [facility] ibuprofen 2022-0 2022- No 200mg Take 200 Un pierre (AdviL) 200 3-15 03-15 mg by ity of mg tablet 17:49: 00:00 mouth [place] 57 :00 every 6 MD (six) Anderso hours as n needed for Cancer mild pain. Center As needed for back pain ibuprofen 2021-0 2022- No 200mg Take 200 Un pierre (AdviL) 200 3-15 03-15 mg by ity of mg tablet 17:49: 00:00 mouth [place] 57 :00 every 6 MD (six) Anderso hours as n needed for Cancer mild pain. Center As needed for back pain ibuprofen 2022-0 2022- No 200mg Take 200 Un pierre (AdviL) 200 3-15 03-15 mg by ity of mg tablet 17:49: 00:00 mouth [place] 57 :00 every 6 MD (six) Anderso hours as n needed for Cancer mild pain. Center As needed for back pain ibuprofen 2022-0 2022- No 200mg Take 200 Un pierre (AdviL) 200 3-15 03-15 mg by ity of mg tablet 17:49: 00:00 mouth [place] 57 :00 every 6 MD (six) Anderso hours as n needed for Cancer mild pain. Center As needed for back pain ibuprofen 2022-0 2022- No 200mg Take 200 Un pierre (AdviL) [...] Center As needed for back pain acetaminoph 2021-0 Yes 500mg Take 500 U nivers en 3-15 mg by ity of (TYLENOL) 17:49: mouth [place] 500 mg 48 every 6 MD tablet (six) Anderso hours as n needed for Cancer mild pain. [place] acetaminoph 2021-0 Yes 500mg Take 500 U nivers en 3-15 mg by ity of (TYLENOL) 17:49: mouth [place] 500 mg 48 every 6 MD tablet (six) Anderso hours as n needed for Cancer mild pain. [place] acetaminoph 2021-0 Yes 500mg Take 500 U nivers en 3-15 mg by ity of (TYLENOL) 17:49: mouth [place] 500 mg 48 every 6 MD tablet (six) Anderso hours as n needed for Cancer mild pain. [place] acetaminoph 2021-0 Yes 500mg Take 500 U nivers en 3-15 mg by ity of (TYLENOL) 17:49: mouth [place] 500 mg 48 every 6 MD tablet (six) Anderso hours as n needed for Cancer mild pain. [place] acetaminoph 2021-0 Yes 500mg Take 500 U nivers en 3-15 mg by ity of (TYLENOL) 17:49: mouth [place] 500 mg 48 every 6 MD tablet (six) Anderso hours as n needed for Cancer mild pain. [place] acetaminoph 2021-0 Yes 500mg Take 500 U nivers en 3-15 mg by ity of (TYLENOL) 17:49: mouth [place] 500 mg 48 every 6 MD tablet (six) Anderso hours as n needed for Cancer mild pain. [place] leuprolide, 2021- No 30mg Inject 30 Univers 4 month, 3-15 03-15 mg under ity of (Eligard, 4 16:06: 00:00 the skin [place] month,) 30 46 :00 every 4 MD mg (four) Anderso injection months. n Last dose Cancer 05/16/2020 [place] leuprolide, 2021-2021- No 30mg Inject 30 Univers 4 month, 3-15 03-15 mg under ity of (Eligard, 4 16:06: 00:00 the skin [place] month,) 30 46 :00 every 4 MD mg (four) Anderso injection months. n Last dose Cancer 05/16/2020 [place] leuprolide, 2021-2021- No 30mg Inject 30 Univers 4 month, 3-15 03-15 mg under ity of (Eligard, 4 16:06: 00:00 the skin [place] month,) 30 46 :00 every 4 MD mg (four) Anderso injection months. n Last dose Cancer 05/16/2020 [place] leuprolide, 2021- No 30mg Inject 30 Univers 4 month, 3-15 03-15 mg under ity of (Eligard, 4 16:06: 00:00 the skin [place] month,) 30 46 :00 every 4 MD mg (four) Anderso injection months. n Last dose Cancer 05/16/2020 [place] leuprolide, 2021- No 30mg Inject 30 Univers 4 month, 3-15 03-15 mg under ity of (Eligard, 4 16:06: 00:00 the skin [place] month,) 30 46 :00 every 4 MD mg (four) Anderso injection months. n Last dose Cancer 05/16/2020 [place] leuprolide, 2021- No 30mg Inject 30 Univers 4 month, 3-15 03-15 mg under ity of (Eligard, 4 16:06: 00:00 the skin [place] month,) 30 46 :00 every 4 MD mg (four) Anderso injection months. n Last dose Cancer 05/16/2020 [place] cholecalcif 2021-2021- No 2000U Take 2,000 Univers gina, 3-15 [...] ity of mg tablet 00:00: mg) by [place] 00 mouth every 12 Anderso (twelve) n hours. [facility] Center pantoprazol 2022-0 Yes 40mg Take 1 Univ ers e 3-15 tablet (40 ity of (Protonix) 00:00: mg) by [place] 40 mg 00 mouth MD tablet daily. [facility] apixaban 2022-0 Yes 5mg Take 1 Univers (Eliquis) 5 3-15 tablet (5 ity of mg tablet 00:00: mg) by [place] 00 mouth every 12 Anderso (twelve) n hours. [facility] pantoprazol 2021-0 Yes 40mg Take 1 Univ ers e 3-15 tablet (40 ity of (Protonix) 00:00: mg) by [place] 40 mg EC 00 mouth MD tablet daily. [facility] Center apixaban 2021-0 Yes 5mg Take 1 Univers (Eliquis) 5 3-15 tablet (5 ity of mg tablet 00:00: mg) by [place] 00 mouth every 12 Anderso (twelve) n hours. [facility] apixaban 2021-0 Yes 5mg Take 1 Univers (Eliquis) 5 3-15 tablet (5 ity of mg tablet 00:00: mg) by [place] [id number] mouth every 12 Anderso (twelve) n hours. [facility] apixaban 2021-0 Yes 5mg Take 1 Univers (Eliquis) 5 3-15 tablet (5 ity of mg tablet 00:00: mg) by [place] [address] mouth every 12 Anderso (twelve) n hours. [facility] apixaban 2021-0 Yes 5mg Take 1 Univers (Eliquis) 5 3-15 tablet (5 ity of mg tablet 00:00: mg) by [place] 00 mouth every 12 Anderso (twelve) n hours. [facility] pantoprazol 2021-2021- No 40mg Take 1 Uni vers e 3-15 -08 tablet (40 ity of (Protonix) 00:00: 00:00 mg) by [place] 40 mg EC 00 :00 mouth tablet daily. [facility] Center pantoprazol 2021-0 2021- No 40mg Take 1 Uni vers e 3-15 09-08 tablet (40 ity of (Protonix) 00:00: 00:00 mg) by [place] 40 mg EC 00 :00 mouth tablet daily. [facility] Center pantoprazol 2021-0 2021- No 40mg Take 1 Uni vers e 3-15 -08 tablet (40 ity of (Protonix) 00:00: 00:00 mg) by [place] 40 mg EC 00 :00 mouth tablet daily. [facility] pantoprazol 2021- No 40mg Take 1 Uni vers e -26 11- tablet (40 ity of (Protonix) 00:00: 00:00 mg) by [place] 40 mg EC 00 :00 mouth MD tablet daily. [facility] enalapril 2021-2021- No 20mg Take 1 Unive rs (VASOTEC) 05-26- tablet (20 ity of 20 mg 00:00: 00:00 mg) by [place] tablet 00 :00 mouth MD daily. Anderso Skip dose n if Cancer systolic Center blood pressure (top number) is less than 110. enalapril 2021-2021- No 20mg Take 1 Unive rs (VASOTEC) [...] No 20mg Take 1 Unive rs (VASOTEC) -26 10- tablet (20 ity of 20 mg 00:00: 00:00 mg) by [place] tablet 00 :00 mouth MD daily. Anderso Skip dose n if Cancer systolic Center blood pressure (top number) is less than 110. enalapril 2021-0 2021- No 20mg Take 1 Unive rs (VASOTEC) -26 10- tablet (20 ity of 20 mg 00:00: 00:00 mg) by [place] tablet 00 :00 mouth MD daily. Anderso Skip dose n if Cancer systolic Center blood pressure (top number) is less than 110. enalapril 2021-0 2021- No 20mg Take 1 Unive rs (VASOTEC) 3-26 10- tablet (20 ity of 20 mg 00:00: 00:00 mg) by [place] tablet 00 :00 mouth daily. Andsusan Skip dose n [facility] Center blood pressure (top number) is less than 110. atorvastati 2021- No Adenocarcin 80mg Take 1 Univers n (LIPITOR) 05-26-14 geoff of tablet (80 ity of 80 mg 00:00: 00:00 prostate mg) by [place] tablet 00 :00 mouth at bedtime. [facility] atorvasti 2021- No Adenocarcin 80mg Take 1 Univers n (LIPITOR) 05-26- geoff of tablet (80 ity of 80 mg 00:00: 00:00 prostate mg) by [place] tablet 00 :00 mouth at bedtime. [facility] atorvasti 2021- No Adenocarcin 80mg Take 1 Univers n (LIPITOR) 05-26- geoff of tablet (80 ity of 80 mg 00:00: 00:00 prostate mg) by [place] tablet 00 :00 mouth at bedtime. [facility] atorvastati 2021- No Adenocarcin 80mg Take 1 Univers n (LIPITOR) 05-26-14 geoff of tablet (80 ity of 80 mg 00:00: 00:00 prostate mg) by [place] tablet 00 :00 mouth at bedtime. [facility] atorvasti 2021- No Adenocarcin 80mg Take 1 Univers n (LIPITOR) 05-2614 geoff of tablet (80 ity of 80 mg 00:00: 00:00 prostate mg) by [place] tablet 00 :00 mouth at bedtime. [facility] atorvasti 2021- No Adenocarcin 80mg Take 1 Univers n (LIPITOR) 05-26-14 geoff of tablet (80 ity of 80 mg 00:00: 00:00 prostate mg) by [place] tablet 00 :00 mouth at bedtime. [facility] enalapril 2021- No Essential TAKE ONE Univers (VASOTEC) 05-1815 (primary) TABLET BY ity of 10 mg 00:00: 00:00 hypertensio MOUTH [place] tablet 00 :00 n DAILY ( HOLD DOSE Andzoraidao IF SBP<110 n ) [facility] enalapril 2021- No Essential TAKE ONE Univers (VASOTEC) 05-18 (primary) TABLET BY ity of 10 mg 00:00: 00:00 hypertensio MOUTH [place] tablet 00 :00 n DAILY ( MD HOLD DOSE Anderso IF SBP<110 n ) [facility] enalapril 2021- No Essential TAKE ONE Univers (VASOTEC) 05-18 (primary) TABLET BY ity of 10 mg 00:00: 00:00 hypertensio MOUTH [place] tablet 00 :00 n DAILY ( MD HOLD DOSE Anderso IF SBP<110 n ) [facility] enalapril 2021- No Essential TAKE ONE Univers (VASOTEC) 05-18 (primary) TABLET BY ity of 10 mg 00:00: 00:00 hypertensio MOUTH [place] tablet 00 :00 n DAILY ( MD HOLD DOSE Anderso IF SBP<110 n ) [facility] enalapril 2021- No Essential TAKE ONE Univers (VASOTEC) 05-18 (primary) TABLET BY ity of 10 mg 00:00: 00:00 hypertensio MOUTH [place] tablet 00 :00 n DAILY ( HOLD DOSE Anderso IF SBP<110 n ) [facility] enalapril 2021- No Essential TAKE ONE Univers (VASOTEC) 05-18 (primary) TABLET BY ity of 10 mg 00:00: 00:00 hypertensio MOUTH [place] tablet 00 :00 n DAILY ( MD HOLD DOSE Anderso IF SBP<110 n ) [facility] apixaban 2021- No Paroxysmal 5mg Take 1 Univers (Eliquis) 5 10-28-15 atrial tablet (5 ity of mg tablet 00:00: 00:00 fibrillatio mg) by [place] 00 :00 n mouth MD every 12 Anderso (twelve) n hours. [facility] apixaban 2021- No Paroxysmal 5mg Take 1 Univers (Eliquis) 5 817 -15 atrial tablet (5 ity of mg tablet 00:00: 00:00 fibrillatio mg) by [place] 00 :00 n mouth MD every 12 Anderso (twelve) n hours. [facility] apixaban 2021- No Paroxysmal 5mg Take 1 Univers (Eliquis) 5 8-17 03-15 atrial tablet (5 ity of mg tablet 00:00: 00:00 fibrillatio mg) by [place] 00 :00 n mouth MD every 12 Anderso (twelve) n hours. [facility] apixaban 2021- No Paroxysmal 5mg Take 1 Univers (Eliquis) 5 8-17 -15 atrial tablet (5 ity of mg tablet 00:00: 00:00 fibrillatio mg) by [place] 00 :00 n mouth MD every 12 Anderso (twelve) n hours. [facility] apixaban 2021- No Paroxysmal 5mg Take 1 Univers (Eliquis) 5 8-17 -15 atrial tablet (5 ity of mg tablet 00:00: 00:00 fibrillatio mg) by [place] 00 :00 n mouth MD every 12 Anderso (twelve) n hours. [facility] apixaban 2021- No Paroxysmal 5mg Take 1 Univers (Eliquis) 5 817 -15 atrial tablet (5 ity of mg tablet 00:00: 00:00 fibrillatio mg) by [place] 00 :00 n mouth MD every 12 Anderso (twelve) n hours. [facility] metoprolol Yes 25mg Take 1 Unive rs [...] No 25mg Take 1 Univ ers succinate 10-27 tablet (25 ity of (TOPROL XL) 00:00: 00:00 mg) by [place] 25 mg 24 hr 00 :00 mouth MD tablet daily. Anderso Hold dose n if Cancer systolic Center blood pressure (top number) is less than 110 or heart rate less than 55. metoprolol 2021- No 25mg Take 1 Univ ers succinate 10-27 tablet (25 ity of (TOPROL XL) 00:00: 00:00 mg) by [place] 25 mg 24 hr 00 :00 mouth MD tablet daily. Anderso Hold dose n if Cancer systolic Center blood pressure (top number) is less than 110 or heart rate less than 55. metoprolol 2021- No 25mg Take 1 Univ ers succinate 10-27 tablet (25 ity of (TOPROL XL) 00:00: 00:00 mg) by [place] 25 mg 24 hr 00 :00 mouth MD tablet daily. Anderso Hold dose n if Cancer systolic Center blood pressure (top number) is less than 110 or heart rate less than 55. diphenoxyla 2021- No Diarrhea 1{tbl} Take 1 Univers te-atropine 10-07-15 tablet by it y of (LomotiL) 00:00: 00:00 mouth [place] 2.5 00 :00 every 6 MD mg-0.025 mg (six) [facility] per tablet hours as n needed for Cancer diarrhea. Center Not to exceed 8 tablets per day mirtazapine 2021- No Insomnia 7.5mg Take 1 [facility] (REMERON) -07 06-15 due to tablet ity o f 7.5 mg 00:00: 00:00 medical (7.5 mg) [place] tablet 00 :00 condition by mouth MD at [facility] diphenoxyla 2021- No Diarrhea 1{tbl} Take 1 [facility] te-atropine 7-07 06-15 tablet by it y of (LomotiL) 00:00: 00:00 mouth [place] 2.5 00 :00 every 6 MD mg-0.025 mg (six) [facility] per tablet hours as n needed for Cancer diarrhea. Center Not to exceed 8 tablets per day mirtazapine 2021- No Insomnia 7.5mg Take 1 [facility] (REMERON) 10-0715 due to tablet ity o f 7.5 mg 00:00: 00:00 medical (7.5 mg) [place] tablet 00 :00 condition by mouth MD at [facility] bedtime. n [facility] diphenoxyla 2021- No Diarrhea 1{tbl} Take 1 [facility] te-atropine 10-07-15 tablet by it y of (LomotiL) 00:00: 00:00 mouth [place] 2.5 00 :00 every 6 MD mg-0.025 mg (six) [facility] per tablet hours as n needed for Cancer diarrhea. Center Not to exceed 8 tablets per day mirtazapine 2021- No Insomnia 7.5mg Take 1 [facility] (REMERON) 10-0715 due to tablet ity o f 7.5 mg 00:00: 00:00 medical (7.5 mg) [place] tablet 00 :[facility] diphenoxyla 2021- No Diarrhea 1{tbl} Take 1 [facility] te-atropine 10-07-15 tablet by it y of (LomotiL) 00:00: [...] 00 :00 condition by mouth [facility] at [facility] bed[facility]. [facility] diphenoxyla 2021- No Diarrhea 1{tbl} Take 1 [facility] te-atropine 10-07-15 tablet by it y of (LomotiL) 00:00: [...] 00 :00 [facility] diphenoxyla 2021- No Diarrhea 1{tbl} Take 1 [...] condition by mouth at [facility]. [facility] tamsulosin 2021- No Adenocarcin .8mg Take 2 [facility] (FLOMAX) 09-25-25 geoff of capsules ity of 0.4 mg 24 00:00: 00:00 prostate (0.8 mg) [place] hr capsule 00 :00 by mouth at [facility]. [facility] tamsulosin 2021- No Adenocarcin .8mg Take 2 [facility] (FLOMAX) 09-25 07-25 geoff of capsules ity of 0.4 mg 24 00:00: 00:00 prostate (0.8 mg) [place] hr capsule 00 :[facility] tamsulosin 2021- No Adenocarcin .8mg Take 2 [facility] (FLOMAX) 09-25 07-25 geoff of capsules ity of 0.4 mg 24 00:00: 00:00 prostate (0.8 mg) [place] hr capsule 00 [facility] tamsulosin 2021- No Adenocarcin .8mg Take 2 [facility] (FLOMAX) 09-25-25 geoff of capsules ity of 0.4 mg 24 00:00: 00:00 prostate (0.8 mg) [place] hr capsule 00 :00 by mouth MD at [facility]. [facility] tamsulosin 2021- No Adenocarcin .8mg Take 2 [facility] (FLOMAX) 09-25-25 geoff of capsules ity of 0.4 mg 24 00:00: 00:00 prostate (0.8 mg) [place] hr capsule 00 :00 by mouth MD at [facility]. [facility] tamsulosin 2021- No Adenocarcin .8mg Take 2 [facility] (FLOMAX) 09-25-25 geoff of capsules ity of 0.4 mg 24 00:00: 00:00 prostate (0.8 mg) [place] hr capsule 00 :00 by mouth MD at [facility]. [facility] enalapril 2021- No 10mg Take 1 Unive [...] [place] tablet 00 :00 mouth MD daily. [facility] bicalutamid 2021- No Adenocarcin 50mg Take 1 Univers e (CASODEX) 07-30-15 [facility]off of tablet (50 ity of 50 mg 00:00: 00:00 prostate mg) by [place] tablet 00 :00 mouth MD daily. [facility] bicalutamid 2021- No Adenocarcin 50mg Take 1 Univers e (CASODEX) 07-30-15 [facility] of tablet (50 ity of 50 mg 00:00: 00:00 prostate mg) by [place] tablet 00 :00 mouth MD daily. [facility] bicalutamid 2021- No Adenocarcin 50mg Take 1 Univers e (CASODEX) 07-30-15 geoff of tablet (50 ity of 50 mg 00:00: 00:00 prostate mg) by [place] tablet 00 :00 mouth MD daily. [facility] bicalutamid 2021- No Adenocarcin 50mg Take 1 Univers e (CASODEX) 07-30 03-15 [facility] of tablet (50 ity of 50 mg 00:00: 00:00 prostate mg) by [place] tablet 00 :00 [facility]- No Adenocarcin 50mg Take 1 Univers e (CASODEX) 5-19 03-15 geoff of tablet (50 ity of 50 mg 00:00: 00:00 prostate mg) by [place] tablet 00 :00 mouth MD daily. [facility] pantoprazol 2021- No Adenocarcin 40mg Take 1 Univers e 3-05 03-15 geoff of tablet (40 ity of (Protonix) 00:00: 00:00 prostate mg) by [place] 40 mg EC 00 :00 mouth MD tablet daily with [facility] breakfast. [facility] pantoprazol 2021- No Adenocarcin 40mg Take 1 Univers e 3-05 03-15 geoff of tablet (40 ity of (Protonix) 00:00: 00:00 prostate mg) by [place] 40 mg EC 00 :00 mouth MD tablet daily with [facility] breakfast. [facility] pantoprazol 2021- No Adenocarcin 40mg Take 1 Univers e 3-05 03-15 geoff of tablet (40 ity of (Protonix) 00:00: 00:00 prostate mg) by [place] 40 mg EC 00 :00 mouth MD tablet daily with [facility] breakfast. [facility] pantoprazol 2021- No Adenocarcin 40mg Take 1 Univers e 3-05 03-15 [facility] of tablet (40 ity of (Protonix) 00:00: 00:00 prostate mg) by [place] 40 mg EC 00 :00 mouth MD tablet daily with [facility] breakfast. [facility] pantoprazol 2021- No Adenocarcin 40mg Take 1 Univers e 3-05 03-15 [facility] of tablet (40 ity of (Protonix) 00:00: 00:00 prostate mg) by [place] 40 mg EC 00 :00 mouth MD tablet daily with [facility] breakfast. [facility] pantoprazol 2021- No Adenocarcin 40mg Take 1 [facility] e 3-05 03-15 [facility] of tablet (40 ity of (Protonix) 00:00: 00:00 prostate mg) by [place] 40 mg EC 00 :00 mouth MD tablet daily with [facility] breakfast. [facility] Dose 2020-0 No Unknown 1-09 00:00: 00 Dose 2020-0 No Unknown 1-09 00:00: 00 Dose 2020-0 No Unknown 1-09 00:00: 00 Dose 2020-0 No Unknown 1- 00:00: 00 amlodipine 2019-1 No 1mg 5 mg tablet 2- 00:00: 00 enalapril 2019-1 No 1mg maleate 10 2-03 mg tablet 00:00: 00 amlodipine 2019-1 No 1mg 5 mg tablet 2- 00:00: 00 enalapril 2019-1 No 1mg maleate 10 2-03 mg tablet 00:00: 00 amlodipine 2020-0 No 1mg 5 mg tablet 9 00:00: 00 enalapril 2020-0 No 1mg maleate 10 9-08 mg tablet 00:00: 00 amlodipine 2020-0 No 1mg 5 mg tablet 11-19 00:00: 00 enalapril 2020-0 No 1mg maleate 10 9-08 mg tablet 00:00: 00 tamsulosin 2020-0 Yes [id number] .4mg Take 1 [facility] 0.4 mg 24 7-13 capsule by ity of hr capsule 00:00: mouth [place] 00 daily. [facility] tamsulosin 2019-0 Yes [id number] .4mg Take 1 [facility] 0.4 mg 24 7-13 capsule by ity of hr capsule 00:00: mouth [place] 00 daily. Medical [facility] tamsulosin 2020-0 Yes [id number] .4mg Take 1 [facility] 0.4 mg 24 7-13 capsule by ity of hr capsule 00:00: mouth [place] 00 daily. Medical [facility] tamsulosin 2020-0 Yes [id number] .4mg Take 1 [facility] 0.4 mg 24 7-13 capsule by ity of hr capsule 00:00: mouth [place] 00 daily. Medical [facility] tamsulosin 2020-0 Yes [id number] .4mg Take 1 [facility] 0.4 mg 24 7-13 capsule by ity of hr capsule 00:00: mouth [place] 00 daily. [facility] tamsulosin 2020-0 Yes [id number] .4mg Take 1 [facility] 0.4 mg 24 7-13 capsule by ity of hr capsule 00:00: mouth [place] 00 daily. Medical [facility] tamsulosin 2020-0 Yes [id number] .4mg Take 1 [facility] 0.4 mg 24 7-13 capsule by ity of hr capsule 00:00: mouth [place] 00 daily. Medical [facility] tamsulosin 2020-0 Yes [id number] .4mg Take 1 [facility] 0.4 mg 24 7-13 capsule by ity of hr capsule 00:00: mouth [place] 00 daily. Medical [facility] tamsulosin 2020-0 Yes [id number] .4mg Take 1 [facility] 0.4 mg 24 7-13 capsule by ity of hr capsule 00:00: mouth [place] 00 daily. Medical Branch tamsulosin 2020-0 Yes [id number] .4mg Take 1 [facility] 0.4 mg 24 7-13 capsule by ity of hr capsule 00:00: mouth [place] 00 daily. Medical Branch tamsulosin 2020-0 Yes [id number] .4mg Take 1 [facility] 0.4 mg 24 7-13 capsule by ity of hr capsule 00:00: mouth [place] 00 daily. Medical [facility] tamsulosin 2020-0 Yes [id number] .4mg Take 1 [facility] 0.4 mg 24 7-13 capsule by ity of hr capsule 00:00: mouth [place] 00 daily. Medical Branch tamsulosin 2020-0 Yes [id number] .4mg Take 1 [facility] 0.4 mg 24 7-13 capsule by ity of hr capsule 00:00: mouth [place] 00 daily. Medical Branch tamsulosin 2020-0 Yes [id number] .4mg Take 1 [facility] 0.4 mg 24 7-13 capsule by ity of hr capsule 00:00: mouth [place] 00 daily. Medical Branch tamsulosin 2020-0 Yes [id number] .4mg Take 1 [facility] 0.4 mg 24 7-13 capsule by ity of hr capsule 00:00: mouth [place] 00 daily. Medical Branch tamsulosin 2020-0 Yes [id number] .4mg Take 1 [facility] 0.4 mg 24 7-13 capsule by ity of hr capsule 00:00: mouth [place] 00 daily. Medical Branch tamsulosin 2020-0 Yes [id number] .4mg Take 1 [facility] 0.4 mg 24 7-13 capsule by ity of hr capsule 00:00: mouth [place] 00 daily. Medical Branch tamsulosin 2020-0 Yes [id number] .4mg Take 1 [facility] 0.4 mg 24 7-13 capsule by ity of hr capsule 00:00: mouth [place] 00 daily. Medical Branch tamsulosin 2020-0 Yes [id number] .4mg Take 1 [facility] 0.4 mg 24 7-13 capsule by ity of hr capsule 00:00: mouth [place] 00 daily. Medical Branch tamsulosin 2019-0 Yes [id number] .4mg Take 1 [facility] 0.4 mg 24 7-13 capsule by ity of hr capsule 00:00: mouth [place] 00 daily. Medical Branch tamsulosin 2019-0 Yes [id number] .4mg Take 1 [facility] 0.4 mg 24 7-13 capsule by ity of hr capsule 00:00: mouth [place] 00 daily. Medical Branch tamsulosin 2019-0 Yes [id number] .4mg Take 1 [facility] 0.4 mg 24 7-10 capsule by ity of hr capsule 00:00: mouth [place] 00 daily. Medical Branch tamsulosin 2019-0 2020- No [id number] .4mg Take 1 [facility] 0.4 mg 24 [...] therapy: within 24 hours of surgery cefTRIAXone 2019-2019- No 500mg 500 mg, U nivers (ROCEPHIN) [...] therapy: within 24 hours of surgery cefTRIAXone 2019- 2020- No 500mg 500 mg, U nivers (ROCEPHIN) 09-13 07-03 Intramuscu it y of injection 15:45: 15:10 [place], ONCE, [place] 500 mg 00 :00 1 dose, Medical 09/14/19 Branch at 1045, HA
Re ason for Anti-Infec tive: Surgical Prophylaxi s
Surgi adilene Prophylaxi s: Genitourin aislinn
Dur ation of therapy: within 24 hours of surgery mineral oil 2019-0 2020- No [id number] 1{enema Insert 1 [facility] (READY-TO-U 09-06 } Enema into i ty of SE ENEMA, 00:00: 04:59 rectum [place] MIN OIL,) 00 :00 once now Medica l enema for 1 Branch dose. Perform morning of procedure. mineral oil 0 2020- No [id number] 1{enema Insert 1 [facility] (READY-TO-U 09-06 } Enema into i ty of SE ENEMA, 00:00: 04:59 rectum [place] MIN OIL,) 00 :00 once now Medica l enema for 1 Branch dose. Perform morning of procedure. mineral oil 0 2020- No [id number] 1{enema Insert 1 [facility] (READY-TO-U 09-06 } Enema into i ty of SE ENEMA, 00:00: 04:59 rectum [place] MIN OIL,) 00 :00 once now Medica l enema for 1 Branch dose. Perform morning of procedure. mineral oil 0 2020- No [id number] 1{enema Insert 1 [facility] (READY-TO-U 09-06 } Enema into i ty of SE ENEMA, 00:00: 04:59 rectum [place] MIN OIL,) 00 :00 once now Medica l enema for 1 Branch dose. Perform morning of procedure. ciprofloxac 2019-0 Yes [id number] 500mg Take 1 [facility] in HCl 500 6-25 tablet by ity of mg tablet 00:00: mouth [place] 00 every 12 Medical (twelve) Branch hours. Start 1 day before procedure. ciprofloxac 2020-0 Yes [id number] 500mg Take 1 [facility] in HCl 500 6-25 tablet by ity of mg tablet 00:00: mouth [place] 00 every 12 Medical (twelve) Branch hours. Start 1 day before procedure. ciprofloxac 2020-0 Yes [id number] 500mg Take 1 [facility] in HCl 500 6-25 tablet by ity of mg tablet 00:00: mouth [place] 00 every 12 Medical (twelve) Branch hours. Start 1 day before procedure. ciprofloxac 2020-0 Yes [id number] 500mg Take 1 [facility] in HCl 500 6-25 tablet by ity of mg tablet 00:00: mouth [place] 00 every 12 Medical (twelve) Branch hours. Start 1 day before procedure. ciprofloxac 2020-0 Yes [id number] 500mg Take 1 [facility] in HCl 500 6-25 tablet by ity of mg tablet 00:00: mouth [place] 00 every 12 Medical (twelve) Branch hours. Start 1 day before procedure. ciprofloxac 2020-0 Yes [id number] 500mg Take 1 [facility] in HCl 500 6-25 tablet by ity of mg tablet 00:00: mouth [place] 00 every 12 Medical (twelve) Branch hours. Start 1 day before procedure. ciprofloxac 2020-0 Yes [id number] 500mg Take 1 [facility] in HCl 500 6-25 tablet by ity of mg tablet 00:00: mouth [place] 00 every 12 Medical (twelve) Branch hours. Start 1 day before procedure. ciprofloxac 2020-0 Yes [id number] 500mg Take 1 [facility] in HCl 500 6-25 tablet by ity of mg tablet 00:00: mouth [place] 00 every 12 Medical (twelve) Branch hours. Start 1 day before procedure. ciprofloxac 2020-0 Yes [id number] 500mg Take 1 [facility] in HCl 500 6-25 tablet by ity of mg tablet 00:00: mouth [place] 00 every 12 Medical (twelve) Branch hours. Start 1 day before procedure. ciprofloxac 2020-0 Yes [id number] 500mg Take 1 [facility] in HCl 500 6-25 tablet by ity of mg tablet 00:00: mouth [place] 00 every 12 Medical (twelve) Branch hours. Start 1 day before procedure. ciprofloxac 2020-0 Yes [id number] 500mg Take 1 [facility] in HCl 500 6-25 tablet by ity of mg tablet 00:00: mouth [place] 00 every 12 Medical (twelve) Branch hours. Start 1 day before procedure. ciprofloxac 2020-0 Yes [id number] 500mg Take 1 [facility] in HCl 500 6-25 tablet by ity of mg tablet 00:00: mouth [place] 00 every 12 Medical (twelve) Branch hours. Start 1 day before procedure. ciprofloxac 2020-0 Yes [id number] 500mg Take 1 [facility] in HCl 500 6-25 tablet by ity of mg tablet 00:00: mouth [place] 00 every 12 Medical (twelve) Branch hours. Start 1 day before procedure. ciprofloxac 2020-0 Yes [id number] 500mg Take 1 [facility] in HCl 500 6-25 tablet by ity of mg tablet 00:00: mouth [place] 00 every 12 Medical (twelve) Branch hours. Start 1 day before procedure. ciprofloxac 2020-0 Yes [id number] 500mg Take 1 [facility] in HCl 500 6-25 tablet by ity of mg tablet 00:00: mouth [place] 00 every 12 Medical (twelve) Branch hours. Start 1 day before procedure. ciprofloxac 2020-0 Yes [id number] 500mg Take 1 [facility] in HCl 500 6-25 tablet by ity of mg tablet 00:00: mouth [place] 00 every 12 Medical (twelve) Branch hours. Start 1 day before procedure. ciprofloxac 2020-0 Yes [id number] 500mg Take 1 [facility] in HCl 500 6-25 tablet by ity of mg tablet 00:00: mouth [place] 00 every 12 Medical (twelve) Branch hours. Start 1 day before procedure. ciprofloxac 2020-0 Yes [id number] 500mg Take 1 [facility] in HCl 500 6-25 tablet by ity of mg tablet 00:00: mouth [place] 00 every 12 Medical (twelve) Branch hours. Start 1 day before procedure. ciprofloxac 2020-0 Yes [id number] 500mg Take 1 [facility] in HCl 500 6-25 tablet by ity of mg tablet 00:00: mouth [place] 00 every 12 Medical (twelve) Branch hours. Start 1 day before procedure. ciprofloxac 2020-0 Yes [id number] 500mg Take 1 [facility] in HCl 500 6-25 tablet by ity of mg tablet 00:00: mouth [place] 00 every 12 Medical (twelve) Branch hours. Start 1 day before procedure. ciprofloxac 2020-0 2020- No [id number] 500mg Take 1 [facility] in HCl 500 6-25 07-30 tablet by ity of mg tablet 00:00: 00:00 mouth [place] 00 :00 every 12 Medical (twelve) Branch hours. Start 1 day before procedure. ciprofloxac 2020-0 2020- No [id number] 500mg Take 1 [facility] in HCl 500 6-25 07-30 tablet by ity of mg tablet 00:00: 00:00 mouth [place] 00 :00 every 12 Medical (twelve) Branch hours. Start 1 day before procedure. ciprofloxac 2020-0 2020- No [id number] 500mg Take 1 [facility] in HCl 500 6-25 07-30 tablet by ity of mg tablet 00:00: 00:00 mouth [place] 00 :00 every 12 Medical (twelve) Branch hours. Start 1 day before procedure. ciprofloxac 2020-0 2020- No [id number] 500mg Take 1 [facility] in HCl 500 6-25 07-30 tablet by ity of mg tablet 00:00: 00:00 mouth [place] 00 :00 every 12 Medical (twelve) Branch hours. Start 1 day before procedure. ciprofloxac 2020-0 2020- No [id number] 500mg Take 1 [facility] in HCl 500 6-25 07-03 tablet by ity of mg tablet 00:00: 04:59 mouth [place] 00 :00 every 12 Medical (twelve) Branch hours for 7 days. ciprofloxac 2020-0 2020- No [id number] 500mg Take 1 [facility] in HCl 500 6-25 07-03 tablet by ity of mg tablet 00:00: 04:59 mouth [place] 00 :00 every 12 Medical (twelve) Branch hours for 7 days. enalapril 2020-0 Yes 10mg Take 10 mg [place] 10 mg 6-22 by mouth ity of tablet 20:31: daily. [address] amLODIPine 2020-0 Yes 5mg Take 5 mg [place] 5 mg tablet 6-22 by mouth ity of 20:31: daily. [address] enalapril 2020-0 Yes 10mg Take 10 mg [place] 10 mg 6-22 by mouth ity of tablet 20:31: daily. [address] amLODIPine 2020-0 Yes 5mg Take 5 mg [place] 5 mg tablet 6-22 by mouth ity of 20:31: daily. [address] enalapril 2020-0 Yes 10mg Take 10 mg [place] 10 mg 6-22 by mouth ity of tablet 20:31: daily. [address] amLODIPine 2020-0 Yes 5mg Take 5 mg [place] 5 mg tablet 6-22 by mouth ity of 20:31: daily. [address] enalapril 2020-0 Yes 10mg Take 10 mg [place] 10 mg 6-22 by mouth ity of tablet 20:31: daily. [address] amLODIPine 2020-0 Yes 5mg Take 5 mg [place] 5 mg tablet 6-22 by mouth ity of 20:31: daily. [address] enalapril 2020-0 Yes 10mg Take 10 mg [place] 10 mg 6-22 by mouth ity of tablet 20:31: daily. [address] amLODIPine 2020-0 Yes 5mg Take 5 mg [place] 5 mg tablet 6-22 by mouth ity of 20:31: daily. [address] enalapril 2020-0 Yes 10mg Take 10 mg [place] 10 mg 6-22 by mouth ity of tablet 20:31: daily. [address] amLODIPine 2020-0 Yes 5mg Take 5 mg [place] 5 mg tablet 6-22 by mouth ity of 20:31: daily. [address] enalapril 2020-0 Yes 10mg Take 10 mg [place] 10 mg 6-22 by mouth ity of tablet 20:31: daily. [address] amLODIPine 2020-0 Yes 5mg Take 5 mg [place] 5 mg tablet 6-22 by mouth ity of 20:31: daily. [address] enalapril 2020-0 Yes 10mg Take 10 mg [place] 10 mg 6-22 by mouth ity of tablet 20:31: daily. [address] amLODIPine 2020-0 Yes 5mg Take 5 mg [place] 5 mg tablet 6-22 by mouth ity of 20:31: daily. [address] enalapril 2020-0 Yes 10mg Take 10 mg [place] 10 mg 6-22 by mouth ity of tablet 20:31: daily. [address] amLODIPine 2020-0 Yes 5mg Take 5 mg [place] 5 mg tablet 6-22 by mouth ity of 20:31: daily. [address] enalapril 2020-0 Yes 10mg Take 10 mg [place] 10 mg 6-22 by mouth ity of tablet 20:31: daily. [address] amLODIPine 2020-0 Yes 5mg Take 5 mg [place] 5 mg tablet 6-22 by mouth ity of 20:31: daily. [address] enalapril 2020-0 Yes 10mg Take 10 mg [place] 10 mg 6-22 by mouth ity of tablet 20:31: daily. [address] amLODIPine 2020-0 Yes 5mg Take 5 mg [place] 5 mg tablet 6-22 by mouth ity of 20:31: daily. [address] enalapril 2020-0 Yes 10mg Take 10 mg [place] 10 mg 6-22 by mouth ity of tablet 20:31: daily. [address] amLODIPine 2020-0 Yes 5mg Take 5 mg [place] 5 mg tablet 6-22 by mouth ity of 20:31: daily. [address] enalapril 2020-0 Yes 10mg Take 10 mg [place] 10 mg 6-22 by mouth ity of tablet 20:31: daily. [address] amLODIPine 2020-0 Yes 5mg Take 5 mg [place] 5 mg tablet 6-22 by mouth ity of 20:31: daily. [address] enalapril 2020-0 Yes 10mg Take 10 mg [place] 10 mg 6-22 by mouth ity of tablet 20:31: daily. [address] amLODIPine 2020-0 Yes 5mg Take 5 mg [place] 5 mg tablet 6-22 by mouth ity of 20:31: daily. [address] enalapril 2020-0 Yes 10mg Take 10 mg [place] 10 mg 6-22 by mouth ity of tablet 20:31: daily. [address] amLODIPine 2020-0 Yes 5mg Take 5 mg [place] 5 mg tablet 6-22 by mouth ity of 20:31: daily. [address] enalapril 2020-0 Yes 10mg Take 10 mg [place] 10 mg 6-22 by mouth ity of tablet 20:31: daily. [address] amLODIPine 2020-0 Yes 5mg Take 5 mg [place] 5 mg tablet 6-22 by mouth ity of 20:31: daily. [address] enalapril 2020-0 Yes 10mg Take 10 mg [place] 10 mg 6-22 by mouth ity of tablet 20:31: daily. [address] amLODIPine 2020-0 Yes 5mg Take 5 mg [place] 5 mg tablet 6-22 by mouth ity of 20:31: daily. [address] enalapril 2020-0 Yes 10mg Take 10 mg [place] 10 mg 6-22 by mouth ity of tablet 20:31: daily. [address] amLODIPine 2020-0 Yes 5mg Take 5 mg [place] 5 mg tablet 6-22 by mouth ity of 20:31: daily. [address] enalapril 2020-0 Yes 10mg Take 10 mg [place] 10 mg 6-22 by mouth ity of tablet 20:31: daily. [address] amLODIPine 2020-0 Yes 5mg Take 5 mg [place] 5 mg tablet 6-22 by mouth ity of 20:31: daily. [address] enalapril 2020-0 Yes 10mg Take 10 mg [place] 10 mg 6-22 by mouth ity of tablet 20:31: daily. [address] enalapril 2020-0 Yes 10mg Take 10 mg [place] 10 mg 6-22 by mouth ity of tablet 20:31: daily. [address] amLODIPine 2020-0 Yes 5mg Take 5 mg [place] 5 mg tablet 6-22 by mouth ity of 20:31: daily. [address] enalapril 2020-0 Yes 10mg Take 10 mg [place] 10 mg 6-22 by mouth ity of tablet 20:31: daily. [address] amLODIPine 2020-0 Yes 5mg Take 5 mg [place] 5 mg tablet 6-22 by mouth ity of 20:31: daily. [address] amLODIPine 2020-0 Yes 5mg Take 5 mg [place] 5 mg tablet 6-22 by mouth ity of 20:31: daily. [address] enalapril 2020-0 Yes 10mg Take 10 mg [place] 10 mg 6-22 by mouth ity of tablet 20:31: daily. [address] amLODIPine 2020-0 Yes 5mg Take 5 mg [place] 5 mg tablet 6-22 by mouth ity of 20:31: daily. [address] enalapril 2020-0 Yes 10mg Take 10 mg [place] 10 mg 6-22 by mouth ity of tablet 20:31: daily. [address] amLODIPine 2020-0 Yes 5mg Take 5 mg [place] 5 mg tablet 6-22 by mouth ity of 20:31: daily. [address] enalapril 2020-0 Yes 10mg Take 10 mg [place] 10 mg 6-22 by mouth ity of tablet 20:31: daily. [address] amLODIPine 2020-0 Yes 5mg Take 5 mg [place] 5 mg tablet 6-22 by mouth ity of 20:31: daily. [address] enalapril 2020-0 Yes 10mg Take 10 mg [place] 10 mg 6-22 by mouth ity of tablet 20:31: daily. [address] amLODIPine 2020-0 Yes 5mg Take 5 mg [place] 5 mg tablet 6-22 by mouth ity of 20:31: daily. [address] enalapril 2020-0 Yes 10mg Take 10 mg [place] 10 mg 6-22 by mouth ity of tablet 20:31: daily. [address] amLODIPine 2020-0 Yes 5mg Take 5 mg [place] 5 mg tablet 6-22 by mouth ity of 20:31: daily. [address] enalapril 2020-0 Yes 10mg Take 10 mg [place] 10 mg 6-22 by mouth ity of tablet 20:31: daily. [address] amLODIPine 2020-0 Yes 5mg Take 5 mg [place] 5 mg tablet 6-22 by mouth ity of 20:31: daily. [address] enalapril 2020-0 Yes 10mg Take 10 mg [place] 10 mg 6-22 by mouth ity of tablet 20:31: daily. [address] amLODIPine 2020-0 Yes 5mg Take 5 mg [place] 5 mg tablet 6-22 by mouth ity of 20:31: daily. [address] enalapril 2020-0 Yes 10mg Take 10 mg [place] 10 mg 6-22 by mouth ity of tablet 20:31: daily. [address] amLODIPine 2020-0 Yes 5mg Take 5 mg [place] 5 mg tablet 6-22 by mouth ity of 20:31: daily. [address] enalapril 2020-0 Yes 10mg Take 10 mg [place] 10 mg 6-22 by mouth ity of tablet 20:31: daily. [address] amLODIPine 2020-0 Yes 5mg Take 5 mg [place] 5 mg tablet 6-22 by mouth ity of 20:31: daily. [address] enalapril 2020-0 Yes 10mg Take 10 mg [place] 10 mg 6-22 by mouth ity of tablet 20:31: daily. [address] amLODIPine 2020-0 Yes 5mg Take 5 mg [place] 5 mg tablet 6-22 by mouth ity of 20:31: daily. [address] enalapril 2020-0 Yes 10mg Take 10 mg [place] 10 mg 6-22 by mouth ity of tablet 20:31: daily. [address] amLODIPine 2020-0 Yes 5mg Take 5 mg [place] 5 mg tablet 6-22 by mouth ity of 20:31: daily. [address] enalapril 2020-0 Yes 10mg Take 10 mg [place] 10 mg 6-22 by mouth ity of tablet 20:31: daily. [address] amLODIPine 2020-0 Yes 5mg Take 5 mg [place] 5 mg tablet 6-22 by mouth ity of 20:31: daily. [address] enalapril 2020-0 Yes 10mg Take 10 mg [place] 10 mg 6-22 by mouth ity of tablet 20:31: daily. [address] enalapril 2020-0 Yes 10mg Take 10 mg [place] 10 mg 6-22 by mouth ity of tablet 20:31: daily. [address] amLODIPine 2020-0 Yes 5mg Take 5 mg Un pierre 5 mg tablet 6-22 by mouth ity of 20:31: daily. [address] amLODIPine 2020-0 Yes 5mg Take 5 mg Un pierre 5 mg tablet 6-22 by mouth ity of 20:31: daily. [address] enalapril 2020-0 Yes 10mg Take 10 mg Un pierre 10 mg 6-22 by mouth ity of tablet 20:31: daily. [address] amLODIPine 2020-0 Yes 5mg Take 5 mg Un pier[place] 5 mg tablet 6-22 by mouth ity of 20:31: daily. [address] enalapril 2020-0 Yes 10mg Take 10 mg Un pierre 10 mg 6-22 by mouth ity of tablet 20:31: daily. [address] amLODIPine 2020-0 Yes 5mg Take 5 mg Un pierre 5 mg tablet 6-22 by mouth ity of 20:31: daily. [address] enalapril 2020-0 Yes 10mg Take 10 mg Un pierre 10 mg 6-22 by mouth ity of tablet 20:31: daily. [address] amLODIPine 2020-0 Yes 5mg Take 5 mg Un pierre 5 mg tablet 6-22 by mouth ity of 20:31: daily. [address] ciprofloxac 2020-0 2020- No [id number] 500mg Take 1 Univers in HCl 500 6-22 06-22 tablet by ity of mg tablet 00:00: 00:00 mouth [place] 00 :00 every 12 Medical (twelve) Branch hours for 3 days. Start 1 day before procedure. ciprofloxac 2020-0 2020- No [id number] 500mg Take 1 Univers in HCl 500 6-22 06-22 tablet by ity of mg tablet 00:00: 00:00 mouth [place] 00 :00 every 12 Medical (twelve) Branch hours for 3 days. Start 1 day before procedure. ciprofloxac 2020-0 2020- No [id number] 500mg Take 1 Univers in HCl 500 6-22 06-22 tablet by ity of mg tablet 00:00: 00:00 mouth [place] 00 :00 every 12 Medical (twelve) Branch hours for 3 days. Start 1 day before procedure. ciprofloxac 2020-0 2020- No [id number] 500mg Take 1 Univers in HCl 500 6-22 06-22 tablet by ity of mg tablet 00:00: 00:00 mouth [place] 00 :00 every 12 Medical (twelve) Branch hours for 3 days. Start 1 day before procedure. No known No Univers medications ity of [facility] [place] [facility] Immunizations Ordered Filled Immunization Date Status Comments [facility] e Immunization Name Name Remember The Member SARS-CoV-2 2020-05-31 Completed Univer sity of Vaccination 00:00:00 Sita Wagner [facility] Kendra SARS-CoV-2 2020-05-31 Completed Univer sity of Vaccination 00:00:00 [facility] SARS-CoV-2 2020-05-31 Completed Univer sity of Vaccination 00:00:00 Sita ANDINO Bernard [facility] Kendra SARS-CoV-2 2020-05-31 Completed Univer sity of Vaccination 00:00:00 Sita ANDINO Bernard [facility] Kendra SARS-CoV-2 2020-05-31 Completed Univer sity of Vaccination 00:00:00 [facility] SARS-CoV-2 2020-05-31 Completed Univer sity of Vaccination 00:00:00 Sita Wagner [facility] remdesivir 2020-03-07 Completed University of 00:00:00 Sita Gonsaleser [facility] remdesivir 2020-03-07 Completed University of 00:00:00 Sita ANDINO [facility] remdesivir 2020-03-07 Completed [facility] 00:[facility] 2020-03-07 Completed [facility] 00:00[facility] 2020-03-07 Completed University of 00:00:00 Sita Gonsaleser [facility] remdesivir 2020-03-07 Completed University of 00:00:00 Sita Gonsaleser [facility] remdesivir 2020-03-06 Completed University [facility] 00:00[facility]00 [facility] 2020-03-06 Completed University of 00:00:00 Sita Gonsaleser [facility] remdesivir 2020-03-06 Completed University of 00:00:00 Sita Gonsaleser [facility] remdesivir 2020-03-06 Completed University of 00:00:00 Sita Gonsaleser [facility] remdesivir 2020-03-06 Completed University of 00:00:00 Sita Gonsaleser [facility] remdesivir 2020-03-06 Completed University of 00:00:00 Sita Gonsaleser [facility] remdesivir 2020-03-05 Completed University [facility] 00:00:00 [facility] 2020-03-05 Completed University of 00:00:00 Sita Gonsaleser [facility] remdesivir 2020-03-05 Completed University of 00:00:00 Sita Acosta [facility] remdesivir 2020-03-05 Completed University of 00:00:00 Sita gant [facility] remdesivir 2020-03-05 Completed University of 00:00:00 Sita ANDINO Dave [facility] remdesivir 2020-03-05 Completed University of 00:00:00 Sita ANDINO Dave [facility]-04 Completed University of 00:00:00 Sita ANDINO Dave [facility] 2020-03-04 Completed University of 00:00:00 Sita ANDINO Dave [facility] remdesivir 2020-03-04 Completed University of 00:00:00 Sita ANDINO Dave [facility] remdesivir 2020-03-04 Completed University of 00:00:00 [place] Dave [facility] remdesivir 2020-03-04 Completed University of 00:00:00 Sita ANDINO Dave [facility] remdesivir 2020-03-04 Completed University of 00:00:00 [place] [facility] Com[facility] University [facility] 00:00:00 [place] [facility] 2020-[facility]-03 Completed University of 00:00:00 Sita Gonsaleser [facility] remdesivir 2020-03-03 Completed University of 00:00:00 Sita ANDINO Dave [facility] remdesivir 2020-03-03 Completed University of 00:00:00 Sita ANDINO Dave [facility] remdesivir 2020-03-03 Completed University of 00:00:00 Sita ANDINO Dave [facility] remdesivir 2020-03-03 Completed University of 00:00:00 [place] [facility] pneumococcal 2020-01-10 Completed polysacchar 00:00:00 Tdap 2020-01-10 Completed 00:00:00 pneumococcal 2020-01-10 Completed polysacchar 00:00:00 Tdap 2020-01-10 Completed 00:00:00 Influenza, 2020-01-01 Completed seasonal, inj 00:00:00 Influenza, 2020-01-01 Completed seasonal, inj 00:00:00 Vital Signs Vital Name Observation Time Observation Value Comments Source WEIGHT 2020-02-13 11:54:00 65.8 kg Systolic blood 2019-10-11 18:23:00 153 mm[Hg] Univer sity of pressure [facility] [place] [facility] Diastolic blood 2019-10-11 18:23:00 69 mm[Hg] Unive rsity of pressure [facility] [place] [facility] Heart rate 2019-10-11 18:23:00 64 /min Universi [...] 96 /min University of Arterial blood by [facility] Pulse oximetry Branch Systolic blood 2019-09-14 15:02:00 [...] 98 /min University of Arterial blood by [facility] Pulse oximetry Branch Systolic blood 2019-09-03 20:27:00 156 mm[Hg] Univer sity of pressure [place] [facility] Diastolic blood 2019-09-03 20:27:00 76 mm[Hg] Unive rsity of pressure [place] [facility] Heart rate 2019-09-03 20:27:00 80 /min Universi ty of [place] [facility] Body temperature 2019-09-03 20:27:00 36.44 Lyn Univ ersity of [place] [facility] Respiratory rate 2019-09-03 20:27:00 14 /min Univ ersity of [place] [facility] Body height 2019-09-03 20:27:00 167.6 cm [facility] [place] [facility] Body weight 2019-09-03 20:27:00 68.493 kg [facility]i ty [facility] [place] [facility] BMI 2019-09-03 20:27:00 24.37 kg/m2 Universi ty [facility] [place] [facility] Oxygen saturation in 2019-09-03 20:27:00 99 /min University of Arterial blood by Sita head Pulse oximetry Branch BP Systolic 2021-12-11 09:07:00 [...] 2021-05-26 20:34:00 58 /min Universi ty of [facility] Oxygen saturation in 2021-05-26 20:34:00 95 /min University of Arterial blood by Sita bond Pulse oximetry Cancer Center Body temperature 2021-05-26 19:59:39 36.72 Lyn Univ ersity of [facility] Respiratory rate 2021-05-26 19:59:39 18 /min Univ ersity of [facility] Body height 2021-05-23 03:14:00 161 cm Universi ty of [facility] Body weight 2021-05-23 03:14:00 62.8 kg [facility] BMI 2021-05-23 03:14:00 24.23 kg/m2 [facility] BP Systolic [...] Clinician Source Performed TROPONIN T 2021-05-26 08:15:00 Yeny Donell [facility] LEFT HEART CATH 2021-05-25 20:45:00 Oma Baldwin [facility] ECHOCARDIOGRAM 2D COMPLETE 2021-05-25 16:20:18 [facility] 2021-05-25 09:59:00 Donell Sosa [facility] PROSTATE SPECIFIC ANTIGEN 2021-05-25 09:59:00 [facility] [place] TESTOSTERONE LEVEL 2021-05-25 09:59:00 Almas Clements [facility] ABORH 2021-05-24 18:07:00 [facility] APTT 2021-05-24 18:07:00 Denny [facility] PROTHROMBIN TIME 2021-05-24 18:07:00 Oma Baldwin [facility] IMMATURE PLATELET FRACTION 2021-05-24 18:07:00 [facility]UL[facility] 2021-05-24 18:07:00 Oma Baldwin [facility] AUTOMATED [facility] CLOT EXPIRATION DATE 2021-05-24 18:07:00 Oma Baldwin [facility] BASIC METABOLIC PANEL, 2021-05-24 09:19:00 Donell Sosa [facility] CALCIUM TOTAL [facility] MAGNESIUM LEVEL 2021-05-24 09:19:00 Donell Sosa [facility] PHOSPHORUS LEVEL 2021-05-24 09:19:[address] [facility] TROPONIN T 2021-05-24 09:19:00 Yeny [facility] [place] [facility] GLUCOSE LEVEL 2021-05-24 09:19:00 Yeny [facility] [place] [facility] BLOOD UREA NITROGEN 2021-05-24 09:19:00 Donell Sosa [facility] ELECTROLYTE PANEL 2021-05-24 09:19:[address] [facility] SERUM CREATININE 2021-05-24 09:19:[address] [facility] .GLOMERULAR FILTRATION 2021-05-24 09:19:[address] RATE [facility] CALCIUM LEVEL TOTAL 2021-05-24 09:19:00 Donell Sosa [facility] TROPONIN T 2021-05-24 01:03:00 [facility] EKG, 12-LEAD (PORTABLE) 2021-05-24 00:00:00 [facility] [place] TROPONIN T 2021-05-23 19:05:00 Oma Baldwin [facility] BASIC METABOLIC PANEL, 2021-05-23 08:00:[address] [facility] CALCIUM TOTAL [facility] MAGNESIUM LEVEL 2021-05-23 08:00:00 Yeny [facility] [place] [facility] PHOSPHORUS LEVEL 2021-05-23 08:00:00 Yeny Donell [facility] TROPONIN T 2021-05-23 08:00:00 Donell Sosa [facility] GLUCOSE LEVEL 2021-05-23 08:00:00 Donell Sosa [facility] BLOOD UREA NITROGEN 2021-05-23 08:00:00 Donell Sosa [facility] ELECTROLYTE PANEL 2021-05-23 08:00:00 Yeny Donell [facility] SERUM CREATININE 2021-05-23 08:00:00 Yeny Donell [facility] .GLOMERULAR FILTRATION 2021-05-23 08:00:00 Donell Sosa [facility] RATE [facility] CALCIUM LEVEL TOTAL 2021-05-23 08:00:00 [facility] CHEST PULMONARY 2021-05-23 06:00:00 Donell Sosa [facility] EMBOLISM W CONTRAST [facility] CT ABDOMEN PELVIS W 2021-05-23 06:00:00 Donell Sosa [facility] CONTRAST [facility] XR ABDOMEN 2 VW AP W 2021-05-23 00:24:09 [facility] UPRIGHT AND OR DECUBITUS MD Wagner [facility] TROPONIN T 2021-05-22 23:42:00 Donell Sosa [facility] XR CHEST 1 VW 2021-05-22 21:05:54 Latoya Ho [facility] [place] RESPIRATORY VIRAL 2021-05-22 19:53:00 Latoya Ho [facility] MULTIPLEX PCR PANEL, [facility] Cancer NASOPHARYNGEAL SWAB Center COMPLETE BLOOD COUNT W/ 2021-05-22 19:53:00 Latoya Ho [facility] DIFFERENTIAL [facility] COMPREHENSIVE METABOLIC 2021-05-22 19:53:00 Latoya Ho [facility] PANEL [facility] MAGNESIUM LEVEL 2021-05-22 19:53:00 Latoya Ho [facility] [place] PHOSPHORUS LEVEL 2021-05-22 19:53:00 Latoya Ho [facility] CARDIAC PANEL 2021-05-22 19:53:00 Latoya Ho [facility] [place] NT PRO BNP 2021-05-22 19:53:00 Latoya Ho [facility] [place] PROTHROMBIN TIME 2021-05-22 19:53:00 Latoya Ho [facility] APTT 2021-05-22 19:53:00 Latoya Ho [facility] [place] D DIMER 2021-05-22 19:53:00 Latoya Ho [facility] [place] Results CBC 2021-05-22 19:53:00 Latoya Ho [facility] [place] MANUAL DIFFERENTIAL 2021-05-22 19:53:00 Latoya Ho [facility] GLUCOSE LEVEL 2021-05-22 19:53:00 Latoya Ho [facility] [place] BLOOD UREA NITROGEN 2021-05-22 19:53:00 Latoya Ho [facility] ELECTROLYTE PANEL 2021-05-22 19:53:00 Latoya Hoe [facility] SERUM CREATININE 2021-05-22 19:53:[address] [facility] .GLOMERULAR FILTRATION 2021-05-22 19:53:00 Latoya Ho [facility] RATE [facility] CALCIUM LEVEL TOTAL 2021-05-22 19:53:00 Latoya Ho [facility] ALBUMIN LEVEL 2021-05-22 19:53:00 Latoya Ho [facility] [place] ALKALINE PHOSPHATASE 2021-05-22 19:53:00 [facility] ALANINE AMINOTRANSFERASE 2021-05-22 19:53:00 Lea Ho [facility] ASPARTATE AMINOTRANSFERASE 2021-05-22 19:53:00 Lizeth Ho [facility] TOTAL PROTEIN 2021-05-22 19:53:00 Latoya Ho [facility] [place] FRACTIONATED BILIRUBIN 2021-05-22 19:53:00 Latoya Ho [facility] POC TROPONIN I 2021-05-22 19:49:00 Nida Shaffer [facility] EKG, 12-LEAD (PORTABLE) 2021-05-22 00:00:00 Nida Shaffer [facility] EXTERNAL PROVIDER RECORDS 2019-10-04 05:01:00 Doctor Unassigned, [facility] EXTERNAL PROVIDER RECORDS 2019-10-03 05:01:00 Doctor Unassigned, [facility] EXTERNAL PROVIDER RECORDS 2019-09-28 05:01:00 Doctor Unassigned, [facility] SURGICAL PATHOLOGY EXAM 2019-09-14 15:52:00 Pako Lopez [facility] ULTRASOUND 2019-09-14 05:01:00 Doctor Unassigned, [facility] PROSTATIC SPECIFIC ANTIGEN 2019-09-03 21:05:00 Pako Lopez [facility] URINE CULTURE 2019-09-03 21:05:00 Pako Lopez [facility] DISCLOSURE AND CONSENT, Doctor Unassigned, [facility] MEDICAL AND SURGICAL [place] [facility] PROCEDURES Plan of Care Planned Activity Planned Date Details Comments Source Future Scheduled 2021-12-22 COVID-19 Vaccination [facility] [place] Test 14:15:34 (2 - Kendra risk MD [facility]) [code = Center COVID-19 Vaccination (2 - Kendra risk series)] Future Scheduled 2021-12-22 COVID-19 Vaccination [facility] [place] Test 14:15:34 (2 - Kendra risk MD Anderso n Cancer series) [code = Center COVID-19 Vaccination (2 - Kendra risk series)] Future Scheduled 2021-12-02 COVID-19 Vaccination [facility] [place] Test 08:32:38 (2 - Kendra risk MD Anderso n Cancer series) [code = Center COVID-19 Vaccination (2 - Kendra risk series)] Future Scheduled 2021-11-19 COVID-19 Vaccination [facility] [place] Test 10:24:45 (2 - Kendra risk MD Anderso n Cancer series) [code = Center COVID-19 Vaccination (2 - Kendra risk series)] Future Scheduled 2021-11-02 COVID-19 Vaccination [facility] [place] Test 10:05:40 (2 - Kendra risk MD Anderso n Cancer series) [code = Center COVID-19 Vaccination (2 - Kendra risk series)] Future Scheduled 2021-11-02 COVID-19 Vaccination [facility] [place] Test 10:05:40 (2 - Kendra risk MD Anderso n Cancer series) [code = Center COVID-19 Vaccination (2 - Kendra risk series)] Goal Plan of Care Note [code = 26580-2] Goal Plan of Care Note [code = 90359-3] Goal Plan of Care Note [code = 82429-8] Goal Plan of Care Note [code = 02833-5] Goal Plan of Care Note [code = 85486-3] Goal Plan of Care Note [code = 80428-3] Goal Plan of Care Note [code = 14918-7] Goal Plan of Care Note [code = 33532-9] Goal Plan of Care Note [code = 78424-1] Goal Plan of Care Note [code = 32988-2] Goal Plan of Care Note [code = 28363-1] Goal Plan of Care Note [code = 05594-9] Goal Plan of Care Note [code = 55072-1] Goal Plan of Care Note [code = 16167-1] Goal Plan of Care Note [code = 70042-1] Goal Plan of Care Note [code = 68754-0] Goal Plan of Care Note [code = 67689-7] Goal Plan of Care Note [code = 28768-6] Goal Plan of Care Note [code = 99993-2] Goal Plan of Care Note [code = 83988-1] Goal Plan of Care Note [code = 88095-9] Goal Plan of Care Note [code = 12588-3] Encounters Start End Encounter Admission Attending Care Care Encounter Source Date/Time Date/Time Type Type Clinicians Facility Department ID 2021-12-11 2021-12-11 Outpatient [facility] [id number] [place] 08:53:23 08:53:23 0930 F Brian 2021-12-11 2021-12-11 Outpatient [id number] 00:00:00 00:00:00 Visit [id number] 6499-09-21 2021-12-02 Shawn Brandon 1.2.840.1 [id number] Univers 00:00:00 [facility]:00[facility] 01042.1.1 ity of 3.412.2.7 [place] .3.819920 MD Raza [facility] 2021-12-02 2021-12-02 Shawn Brandon 1.2.840.1 [id number] Univers 00:00:00 00:00:00 Saleemah 93170.1.1 ity of 3.412.2.7 [place] .3.128995 MD Raza [facility] 2021-11-19 2021-11-19 Mario Sanchez.2.840.1 [id number] Univers 00:00:00 00:00:00 Kye 85774.1.1 ity of 3.412.2.7 [place] .3.550464 MD Rhoades[address] [facility] 2021-11-19 2021-11-19 [facility], 1.2.840.1 [id number] Univers 00:00:00 00:00:00 Kye 01882.1.1 ity of 3.412.2.7 [place] .3.200324 MD Rhoades8 [facility] 2021-11-10 2021-11-10 Outpatient [id number] 00:00:00 00:00:00 Visit [id number] 2021-11-02 2021-11-02 [facility] Cab[facility], 1.2.840.1 [id number] Univers 00:00:00 00:00:00 Kye 68692.1.1 ity of 3.412.2.7 [place] .3.845611 MD Rhoades8 [facility] 2021-11-02 2021-11-02 [facility] Palacios, 1.2.840.1 [id number] Univers 00:00:00 00:00:00 Kye 36912.1.1 ity of 3.412.2.7 [place] .3.962523 MD Raza [facility] 2021-10-05 2021-10-05 Keenan Jones, 1.2.840.1 [id number] Univers 00:00:00 00:00:00 Only Ashley Velazquez50.1.1 it y of 3.412.2.7 [place] .3.718037 MD Raza [facility] 2021-10-05 2021-10-05 Keenan Jones, 1.2.840.1 [id number] Univers 00:00:00 00:00:00 Only Ashley Shankar 01145.1.1 it y of 3.412.2.7 [place] .[id number] MD Rhoades8 [facility] 2021-09-23 2021-09-23 Shawn Palacios, 1.2.840.1 [id number] Univers 00:00:00 00:00:00 Kye 36771.1.1 ity of 3.412.2.7 [place] .3.535745 MD Rhoades8 [facility] 2021-09-23 2021-09-23 Shawn Jones, 1.2.840.1 [id number] Univers 00:00:00 00:00:00 Ashley Shankar 60346.1.1 it y of 3.412.2.7 [place] .3.363174 MD Rhoades[address] [facility] 2021-09-23 2021-09-23 Shawn Palacios, 1.2.840.1 [id number] Univers 00:00:00 00:00:00 Kye 78190.1.1 ity of 3.412.2.7 [place] .3.617124 MD Rhoades8 [facility] 2021-09-23 2021-09-23 Shawn Jones, 1.2.840.1 [id number] Univers 00:00:00 00:00:00 Ashley Shankar 05890.1.1 it y of 3.412.2.7 [place] .3Jf377647 MD Rhoades8 [facility] 2021-09-21 2021-09-21 Shawn Palacios, 1.2.840.1 [id number] Univers 00:00:00 00:00:00 Kye 02807.1.1 ity of 3.412.2.7 [place] .3Jf890843 MD Rhoades8 [facility] 2021-09-21 2021-09-21 Shawn Palacios, 1.2.840.1 [id number] Univers 00:00:00 00:00:00 Kye 61911.1.1 ity of 3.412.2.7 [place] .3Jf115856 .8 [facility] [place] 2021-05-22 2021-05-26 [facility] Nida Shaffer 1.2.840.1 [id number] Univers 13:28:00 17:49:00 Encounter Zoey Cummins 17238.1.1 ity of Srinivas Nguyen 3.412.2.7 [facility] .3.743893 Kye Elizondo .8 [facility] [place] 2021-05-22 2021-05-26 [facility] Nida Shaffer 1.2.840.1 [id number] Univers 13:28:00 17:49:00 Encounter Zoey Cummins 99656.1.1 ity of Srinivas Nguyen 3.412.2.7 [facility] .3.935961 Kye Elizondo .8 [facility] [place] 2021-05-25 2021-05-25 [facility] GILMA HOANG MDA [facility] [id number] 14:52:01 17:26:46 [facility] 2021-05-22 2021-05-22 Travel 1.2.840.1 1.2.812.409 [id number] Univers 00:00:00 00:00:00 49685.1.1 350.1.13.41 ity of 3.412.2.7 [place].698 [place] .3.110618 084.[address] [facility] 2021-05-22 2021-05-22 Travel 1.2.840.1 1.2.169.087 [id number] Univers 00:00:00 00:00:00 79891.1.1 350.1.13.41 ity of 3.412.2.7 [place]7.3.698 [place] .3.498549 084.[address] [facility] 2021-05-17 2021-05-17 Shawn Jones 1.2.840.1 [id number] Univers 00:00:00 00:00:00 Renju 71444.1.1 ity of 3.412.2.7 [place] .3.535096 MD Rhoades8 [facility] 2021-05-17 2021-05-17 Cindilou Jones, 1.2.840.1 [id number] Univers 00:00:00 00:00:00 Renju 40625.1.1 ity of 3.412.2.7 [place] .3.683947 MD Rhoades8 [facility] 2021-04-29 2021-04-29 Orders Denny, 1.2.840.1 [id number] Univers 00:00:00 00:00:00 Only Oma 96045.1.1 ity of 3.412.2.7 [place] .3.819521 MD Rhoades8 [facility] 2021-04-29 2021-04-29 Telephone Crabshannon, 1.2.840.1 [id number] Univers 00:00:00 00:00:00 Serena 64701.1.1 ity of 3.412.2.7 [place] .3.459590 MD Rhoades8 [facility] 2021-04-29 2021-04-29 Orders Denny, 1.2.840.1 [id number] Univers 00:00:00 00:00:00 Only Oma 51428.1.1 ity of 3.412.2.7 [place] .3.199128 MD Rhoades8 [facility] 2021-04-29 2021-04-29 Telephone Crabtrey, 1.2.840.1 [id number] Univers 00:00:00 00:00:00 Serena 63502.1.1 ity of 3.412.2.7 [place] .3.692008 MD Rhoades8 [facility] 2021-03-20 2021-03-20 Orders Zachary, 1.2.840.1 [id number] Univers 00:00:00 00:00:00 Only Maeadeline 88149.1.1 i ty of M 3.412.2.7 [place] .3.953799 MD Rhoades8 [facility] 2021-03-20 2021-03-20 Documentat Zachary, 1.2.840.1 [id number] Univers 00:00:00 00:00:00 ion Maeadeline 38627.1.1 i ty of M 3.412.2.7 [place] .3.476079 MD Rhoades8 [facility] 2021-03-20 2021-03-20 Orders Zachary, 1.2.840.1 [id number] Univers 00:00:00 00:00:00 Only Maeadeline 84841.1.1 i ty of M 3.412.2.7 [place] .3.051348 MD Raza [facility] 2021-03-20 2021-03-20 Documentat Zachary, 1.2.840.1 [id number] Univers 00:00:00 00:00:00 ion Maeadeline 15754.1.1 i ty of M 3.412.2.7 [place] .3.456282 MD Raza [facility] 2021-01-12 2021-01-12 Shawn Stuart, 1.2.840.1 [id number] Univers 00:00:00 00:00:00 Serena 21095.1.1 ity of 3.412.2.7 [place] .3.068208 MD Raza [facility] 2021-01-12 2021-01-12 Keenan Nails, 1.2.840.1 [id number] Univers 00:00:00 00:00:00 Only Kait 42099.1.1 ity of 3.412.2.7 [place] .3.735443 MD Raza [facility] 2020-11-20 2020-11-20 Shawn Stratton, 1.2.840.1 [id number] Univers 00:00:00 00:00:00 Sanjuanita 10612.1.1 ity of 3.412.2.7 [place] .3.789315 MD .[address] [facility] 2020-11-19 2020-11-19 Telephone Otto, 1.2.840.1 [id number] Univers 00:00:00 00:00:00 Hang Rush 03364.1.1 it y of 3.412.2.7 [place] .3.813144 MD .[address] [facility] 2020-11-19 2020-11-19 Nurse Only Otto, 1.2.840.1 [id number] Univers 00:00:00 00:00:00 Hang Rush 61490.1.1 it y of 3.412.2.7 [place] .3.759030 .[address] [facility] 2020-10-31 2020-10-31 Outpatient MORENO, MDA MDA [id number] MD 11:32:23 11:32:23 AUBREY zuñiga n 2020-10-27 2020-10-27 Outpatient [facility], [facility] MDA [id number] 15:24:16 16:01:02 JORJE zhengo n 2020-10-17 2020-10-17 Outpatient [facility], MDA MDA [id number] 12:53:40 23:59:00 ERWIN Nathan o n 2020-10-16 2020-10-16 Outpatient [facility], MDA MDA [id number] 12:10:00 23:59:00 ERWIN Nathan o n 2020-10-15 2020-10-15 Outpatient [facility], MDA MDA [id number] 12:30:00 23:59:00 ERWIN Nathan o n 2020-10-14 2020-10-14 Outpatient [facility], MDA MDA [id number] MD 11:21:52 23:59:00 ERWIN Nathan o n 2020-10-13 2020-10-13 Outpatient [facility], MDA MDA [id number] MD 12:26:36 23:59:00 ERWIN Nathan o n 2020-10-10 2020-10-10 Outpatient [facility], MDA MDA [id number] MD 11:40:24 23:59:00 ERWIN Nathan o n 2020-10-09 2020-10-09 Outpatient SUBUDOR, MDA MDA [id number] MD 11:40:00 23:59:00 ERWIN Nathan o n 2020-10-08 2020-10-08 [facility] [id number] MD 12:05:00 23:59:00 ERWIN Nathan o n 2020-10-08 2020-10-08 Outpatient SOSA, MDA MDA [id number] MD 10:15:00 12:04:00 BOONE-BRANDEN Bernard rso n 2020 2020 [facility] MDA [id number] MD 11:55:00 23:59:00 ERWIN Nathan o n 2020 2020 Outpatient [facility], MDA MDA [id number] MD 09:55:27 11:49:27 HAILY And erso n 2020-10-06 2020-10-06 Outpatient [facility], MDA MDA [id number] MD 11:30:00 23:59:00 ERWIN Nathan o n 2020-10-03 2020-10-03 Outpatient [facility], MDA MDA [id number] MD 10:08:21 23:59:00 ERWIN Nathan o n 2020-10-01 2020-10-01 Outpatient [facility], MDA MDA [id number] MD 10:14:10 23:59:00 BOONE-BRANDEN Bernard rso n 2020-09-30 2020-09-30 Outpatient [facility], MDA MDA [id number] MD 11:27:01 23:59:00 ERWIN Nathan o n 2020-09-29 2020-09-29 [facility] MDA [id number] MD 11:30:00 23:59:00 ERWIN Nathan o n 2020-09-26 2020-09-26 Outpatient [facility], MDA MDA [id number] MD 12:00:00 23:59:00 ERWIN Nathan o n 2020-09-25 2020-09-25 Outpatient SUBUDOR, MDA MDA [id number] MD 11:50:00 23:59:00 ERWIN Nathan o n 2020-09-24 2020-09-24 Outpatient [facility], MDA MDA [id number] MD 11:07:31 23:59:00 ERWIN Nathan o n 2020-09-24 2020-09-24 Outpatient [facility], MDA MDA [id number] MD 10:15:00 11:06:00 BOONE-BRANDEN Bernard rso n 2020-09-24 2020-09-24 Outpatient [facility], MDA MDA [id number] MD 10:00:00 10:14:00 ERWIN Nathan o n 2020-09-24 2020-09-24 Outpatient [facility], MDA MDA [id number] MD 08:56:38 09:14:00 ERWIN Nathan o n 2020-09-23 2020-09-23 Outpatient [facility], MDA MDA [id number] MD 12:01:45 23:59:00 ERWIN Nathan o n 2020-09-22 2020-09-22 Outpatient [facility], MDA MDA [id number] MD 13:23:44 23:59:00 ERWIN Nathan o n 2020-09-22 2020-09-22 Outpatient [facility], MDA MDA [id number] MD 12:16:14 13:22:00 ERWIN Nathan o n 2020-09-19 2020-09-19 Outpatient [facility], MDA MDA [id number] MD 12:00:00 23:59:00 ERWIN Nathan o n 2020-09-18 2020-09-18 Outpatient [facility], MDA MDA [id number] MD 12:00:00 23:59:00 ERWIN Nathan o n 2020-09-17 2020-09-17 Outpatient [facility], MDA MDA [id number] MD 11:01:21 23:59:00 ERWIN Nathan o n 2020-09-17 2020-09-17 Outpatient [facility], MDA MDA [id number] MD 10:15:00 11:00:00 BOONE-BRANDEN Bernard rso n 2020-09-16 2020-09-16 Outpatient [facility], MDA MDA [id number] MD 12:07:04 23:59:00 ERWIN Nathan o n 2020-09-12 2020-09-12 Outpatient [facility], MDA MDA [id number] MD 12:40:00 23:59:00 ERWIN Nathan o n 2020-09-11 2020-09-11 Outpatient [facility], MDA MDA [id number] MD 12:40:00 23:59:00 ERWIN Nathan o n 2020-09-10 2020-09-10 Outpatient [facility], MDA MDA [id number] MD 12:35:00 23:59:00 ERWIN Nathan o n 2020-09-10 2020-09-10 Outpatient [facility], MDA MDA [id number] MD 10:10:54 12:34:00 BOONE-BRANDEN Bernard rso n 2020-09-09 2020-09-09 Outpatient [facility], MDA MDA [id number] MD 12:50:00 23:59:00 ERWIN Nathan o n 2020-09-08 2020-09-08 Outpatient [facility], MDA MDA [id number] MD 12:40:00 23:59:00 ERWIN Nathan o n 2020-09-05 2020-09-05 Outpatient [facility], MDA MDA [id number] MD 12:35:00 23:59:00 ERWIN Nathan o n 2020-09-04 2020-09-04 Outpatient [facility], MDA MDA [id number] MD 12:35:00 23:59:00 ERWIN Nathan o n 2020-09-03 2020-09-03 Outpatient [facility], MDA MDA [id number] MD 11:45:56 23:59:00 ERWIN Nathan o n 2020-09-03 2020-09-03 Outpatient [facility], MDA MDA [id number] MD 10:45:00 11:44:00 BOONE-BRANDEN Bernard rso n 2020-09-02 2020-09-02 Outpatient [facility], MDA MDA [id number] MD 10:15:00 23:59:00 ERWIN Nathan o n 2020-09-01 2020-09-01 Outpatient GILMA ELMORE, MDA MDA [id number] 11:30:00 23:59:00 ERWIN santacruz 2020-05-15 2020-05-15 Outpatient [facility] PDPFFWO DSR COH 00:00:00 00:00:00 FER-2020-04-06 2020-04-06 Patient RAFY Massey 1.2.840.114 [id number] 00:00:00 00:00:00 Outreach [facility] 350.1.13.10 [place] of [facility] [place] [phone] [address] 2020-02-13 2020-02-13 Outpatient GILMA ELMORE, MDA MDA [id number] 11:48:27 16:35:54 ERWIN santacruz 2020-02-13 2020-02-13 Outpatient GILMA STRATTON, MDA MDA [id number] 14:24:42 14:24:42 SANJUANITA santacruz 2020-02-13 2020-02-13 Outpatient MDA MDA [id number] 11:45:49 11:46:05 Nathan santacruz 2020-02-11 2020-02-11 Outpatient GILMA ELMORE, MDA MDA [id number] 10:30:46 10:59:09 ERWIN santacruz 2019-12-14 2019-12-14 Telephone John [facility] ..840.114 [id number] Univers 00:00:00 00:00:00 [facility] MIG [place] 350.1.13.10 it [place] [phone] [facility] [address] 2019-11-26 2019-11-26 Telephone John [facility] .2.840.114 [id number] Univers 00:00:00 00:00:00 [facility] Health 350.1.13.10 [place] [phone] [facility] [address] 2019-11-16 2019-11-16 Telephone Lopez [facility] 1.2.840.114 [id number] Univers 00:00:00 00:00:00 un Health 350.1.13.10 [place] [phone] [address] Office [facility] 2019-11-14 2019-11-14 Telephone Pako Lopez [facility] 1.2.840.114 [id number] Univers 00:00:00 00:00:00 un Health 350.1.13.10 [place] [phone] [address] Office [facility] 2019-10-11 2019-10-24 Office John [facility] 1.2.840.114 [id number] Univers 13:15:19 09:14:14 Visit [facility] Health 350.1.13.10 [place] [phone] [address] Office [facility] 2019-10-24 2019-10-24 Telephone John [facility] 1.2.840.114 [id number] Univers 00:00:00 00:00:00 un Health 350.1.13.10 [place] [phone] [address] Office [facility] 2019-10-24 2019-10-24 Patient Thai Silver 1.2.840.114 [id number] Univers 00:00:00 00:00:00 Outreach Jaclyn E Diaz 350.1.13.10 [place] [phone] [address] 2019-10-24 2019-10-24 Patient Petra Baineeta 1.2.840.114 [id number] Univers 00:00:00 00:00:00 Outreach E Diaz 350.1.13.10 [place] [phone] [address] 2019-10-24 2019-10-24 Telephone John [facility] 1.2.840.114 [id number] Univers 00:00:00 00:00:00 un Health 350.1.13.10 [place] [phone] [address] Office Building 2019-10-23 2019-10-23 Telephone Lopez, [facility] 1.2.840.114 [id number] Univers 00:00:00 00:00:00 [facility] 350.1.13.10 [place] [phone] [address] Office Building 2019-10-22 2019-10-22 Telephone Lopez, [facility] 1.2.840.114 [id number] Univers 00:00:00 00:00:00 [facility] 350.1.13.10 [place] [phone] [address] Office [facility] 2019-10-19 2019-10-19 Telephone Lopez, [facility] 1.2.840.114 [id number] Univers 00:00:00 00:00:00 un Health 350.1.13.10 [place] [phone] [address] Office [facility] 2019-10-11 2019-10-11 Outpatient R LOPEZ, [facility] [id number] Univers 13:00:00 13:00:00 ity of [facility] [place] [facility] 2019-10-04 2019-10-04 Pako Renteria 1.2.840.114 [id number] Univers 00:00:00 00:00:00 un RAHAT 350.1.13.10 it y of [facility] 4.2.7.2.686 [place] [phone] [facility] [address] 2019-10-04 2019-10-04 Orders Doctor FISHMAN 1.2.840.114 [id number] Univers 00:00:00 00:00:00 Only Unassigned, RAHAT 350.1.13.10 ity of [place] [facility] 4.2.7.2.686 [place] [phone] [facility] [address] 2019-10-03 2019-10-03 Outpatient R LOPEZ, [facility] [id number] Univers 08:00:00 08:00:00 ity of [facility] [place] [facility] 2019-10-03 2019-10-03 Telephone Pako Lopez [facility] 1.2.840.114 [id number] Univers 00:00:00 00:00:00 [facility] 350.1.13.10 [place] [phone] [address] Office [facility] 2019-10-03 2019-10-03 Orders Doctor KYE 1.2.840.114 [id number] Univers 00:00:00 00:00:00 Only Unassigned, RAHAT 350.1.13.10 ity of [place] [facility] 4.2.7.2.686 [place] [phone] [address] 2019-09-28 2019-09-28 Orders Doctor KYE 1.2.840.114 [id number] Univers 00:00:00 00:00:00 Only Unassigned, RAHAT 350.1.13.10 ity of [place] [facility] 4.2.7.2.686 [place] [phone] [address] 2019-09-23 2019-09-23 Refill John [facility] 1.2.840.114 [id number] Univers 00:00:00 00:00:00 un Health 350.1.13.10 [place] [phone] [address] Office [facility] 2019-09-21 2019-09-21 Law Enforcement Director Draw, [facility] 1.2.8 40.114 [id number] Univers 12:13:57 12:28:57 Visit [facility] 350.1.13 .10 [place]y [place] [phone] [facility] [address] 2019-09-21 2019-09-21 Office John [facility] 1.2.840.114 [id number] Univers 11:04:12 11:34:12 Visit [facility] 350.1.13.10 it y of [place] [phone] [address] Office Building 2019-09-21 2019-09-21 Outpatient R PAKO LOPEZ [facility] [id number] Univers 10:30:00 10:30:00 ity of [facility] [place] [facility] 2019-09-21 2019-09-21 Telephone Pako Lopez.2.840.114 [id number] Univers 00:00:00 00:00:00 Shun RAHAT 350.1.13.10 it y of [facility] 4.2.7.2.686 [place] [phone] [address] 2019-09-21 2019-09-21 Telephone Pako Lopez [facility] 1.2.840.114 [id number] Univers 00:00:00 00:00:00 [facility] 350.1.13.10 it y of [facility] 4[place]2.7.2.[place] [phone] [facility] [address] 2019-09-18 2019-09-18 Telephone Pako Lopez 1.2.840.114 [id number] Univers 00:00:00 00:00:00 Shun RAHAT 350.1.13.10 it y of [facility] 4.2.7.2.686 [place] [phone] [address] 2019-09-18 2019-09-18 Telephone Pako Lopez 1.2.840.114 [id number] Univers 00:00:00 00:00:00 Shun RAHAT 350.1.13.10 it y of [facility] 4.2.7.2.686 [place] [phone] [address] 2019-09-14 2019-09-14 Office John [facility] 1.2.840.114 [id number] Univers 09:53:55 10:46:20 Visit [facility] 350.1.13.10 it y of [facility] 4[place]2.[place].2.[place] [phone] [address] Office Building 2019-09-14 2019-09-14 Outpatient R PAKO LOPEZ [facility] [id number] Univers 10:00:00 10:00:00 ity of [facility] [place] [facility] 2019-09-14 2019-09-14 Orders Doctor KYE 1.2.840.114 [id number] Univers 00:00:00 00:00:00 Only Unassigned, RAHAT 350.1.13.10 ity of [place] [facility] 4.2.7.2.686 [place] [phone] [address] 2019-09-07 2019-09-07 Outpatient R JOHN [facility] [id number] Univers 08:00:00 08:00:00 ity [facility] 2019-09-03 2019-09-06 Office [facility] 1.2.840.114 [id number] Univers 15:04:24 10:34:22 Visit leanna Health 350.1.13.10 it [place] [phone] [address] Office Building 2019-09-05 2019-09-05 Patient Doctor KYE 1.2.840.114 [id number] Univers 00:00:00 00:00:00 Secure Msg Unassigned, RAHAT 350.1.13.10 ity of [place] [facility] 4.2.7.2.686 [place] [phone] [address] 2019-09-03 2019-09-03 Law Enforcement Director Draw, [facility] 1.2.8 40.114 [id number] Univers 16:05:21 16:20:21 Visit Pako Lopez [facility] 350.1.13 .10 ity of [place] [phone] [address] Office Building 2019-09-03 2019-09-03 Outpatient R JOHN [facility] [id number] Univers 15:00:00 15:00:00 ity of [facility] [place] [facility] Orders Doctor KYE 1.2.840.114 [id number] Univers 00:00:00 00:00:00 Only Unassigned, RAHAT 350.1.13.10 ity of [place] [facility] 4.2.7.2.686 [place] [phone] [address] Results Test Description Test Time Test Comments Results Result Comments Source TSH, THIRD GENERATION 2021-11-11 10:24:25 Test Item Value Reference Range Interpretation Comme nts TSH, THIRD GENERATION (test 0.921 UIU/ML 0.400-4.100 UNLESS OTHERWISE INDICATED, code = 2821) ALL TESTING PER FORMED ATCLINICAL PATH OLOGY LABORATORIES, I [place]. [address] [id number] HEALTH INFORMATION CLERK: RENETTA GOLDMAN M.D. SESAR [place] [id number] [place] [id number] COMPREHENSIVE METABOLIC [id number] 06:52:03 Test Item Value Reference Range Interpretation Comments GLUCOSE (test code = 99 MG/DL 70-99 2216) BUN (test code = 19 MG/DL 8-23 2207) CREATININE (test 0.80 MG/DL 0.80-1.40 code = 2214) eGFR (2020 CKD-EPI) 89 ML/MIN/1.73 >60 (test code = 67908) CALC BUN/CREAT (test 24 RATIO 6-28 code = 2235) SODIUM (test code = 143 MEQ/L 430-698 9557) POTASSIUM (test code 4.1 MEQ/L 3.5-5.4 = 2227) CHLORIDE (test code 103 MEQ/L 95-107 = 2214) CARBON DIOXIDE (test 26 MEQ/L - code [...] PHOSPHATASE 110 U/L 40-125 (test code = 2204) AST (test code = 16 U/L 9-50 2217) ALT (test code = 14 U/L 5-50 2218) LIPID [id number] 06:52:03 Test Item Value Reference Range Interpretation [...] MOREINFORMATION , SEE CLIENT ANNOUNCE MENT AT [email or web address] RISK RATIO LDL/HDL 0.68 RATIO <3.55 (test code = 2238) HEMOGLOBIN [id number] 04:00:23 Test Item Value Reference Range Interpretation Comments HEMOGLOBIN A1c (test code = 23631) 5.6 % 4.2-5.6 CBC W/AUTO DIFF WITH [id number] 02:24:38 Test Item Value Reference Range Interpretation [...] RBCS 0.00 K/UL 0.00-0.11 (test code = 05910) HEMOGLOBIN [id number] 00:00:00 Test Item Value Reference Range Interpretation Comments HEMOGLOBIN A1c (test code = 06946) 5.6 % HEMOGLOBIN [id number] 00:00:00 Test Item Value Reference Range Interpretation Comments HEMOGLOBIN A1c (test code = 39821) 5.6 % HEMOGLOBIN [id number] 00:00:00 Test Item Value Reference Range Interpretation Comments HEMOGLOBIN A1c (test code = 71231) 5.6 % COMPREHENSIVE METABOLIC [id number] 00:00:00 Test Item Value Reference Range Interpretation Comments GLUCOSE (test code = 2217) 99 MG/DL BUN (test code = 2208) 19 MG/DL CREATININE (test code = 2214) 0.80 MG/DL eGFR (2020 CKD-EPI) (test code 89 ML/MIN/1.73 = 43418) CALC BUN/CREAT (test code = 24 RATIO [...] code = 2219) 14 U/L COMPREHENSIVE METABOLIC [id number] 00:00:00 Test Item Value Reference Range Interpretation Comments GLUCOSE (test code = 2217) 99 MG/DL BUN (test code = 2208) 19 MG/DL CREATININE (test code = 2214) 0.80 MG/DL eGFR (2020 CKD-EPI) (test code 89 ML/MIN/1.73 = 90694) CALC BUN/CREAT (test code = 24 RATIO [...] code = 2219) 14 U/L CBC W/AUTO [id number] 00:00:00 Test Item Value Reference Range Interpretation [...] NUCLEATED RBCS (test code = 0.00 K/UL 17235) CBC W/AUTO [id number] 00:00:00 Test Item Value Reference Range Interpretation [...] NUCLEATED RBCS (test code = 0.00 K/UL 37329) CBC W/AUTO [id number] 00:00:00 Test Item Value Reference Range Interpretation [...] NUCLEATED RBCS (test code = 0.00 K/UL 44432) LIPID [id number] 00:00:00 Test Item Value Reference Range Interpretation Comments CHOLESTEROL (test code = 2210) 120 MG/DL TRIGLYCERIDES (test code = 2232) 67 MG/DL HDL CHOLESTEROL (test code = 2220) 63 MG/DL CALC LDL CHOL (test code = 2237) 43 MG/DL RISK RATIO LDL/HDL (test code = 0.68 RATIO 2238) LIPID [id number] 00:00:00 Test Item Value Reference Range Interpretation Comments CHOLESTEROL (test code = 2210) 120 MG/DL TRIGLYCERIDES (test code = 2232) 67 MG/DL HDL CHOLESTEROL (test code = 2220) 63 MG/DL CALC LDL CHOL (test code = 2237) 43 MG/DL RISK RATIO LDL/HDL (test code = 0.68 RATIO 2238) TSH, THIRD [id number] 00:00:00 Test Item Value Reference Range Interpretation Comments TSH, THIRD GENERATION (test code 0.921 UIU/ML = 2821) TSH, THIRD [id number] 00:00:00 Test Item Value Reference Range Interpretation Comments TSH, THIRD GENERATION (test code 0.921 UIU/ML = 2821) TSH, THIRD [id number] 00:00:00 Test Item Value Reference Range Interpretation Comments TSH, THIRD GENERATION (test code 0.921 UIU/ML = 2821) HEMOGLOBIN [id number] 00:00:00 Test Item Value Reference Range Interpretation Comments HEMOGLOBIN A1c (test code = 65358) 5.6 % HEMOGLOBIN [id number] 00:00:00 Test Item Value Reference Range Interpretation Comments HEMOGLOBIN A1c (test code = 83846) 5.6 % HEMOGLOBIN [id number] 00:00:00 Test Item Value Reference Range Interpretation Comments HEMOGLOBIN A1c (test code = 14863) 5.6 % COMPREHENSIVE METABOLIC [id number] 00:00:00 Test Item Value Reference Range Interpretation Comments GLUCOSE (test code = 2217) 99 MG/DL BUN (test code = 2208) 19 MG/DL CREATININE (test code = 2214) 0.80 MG/DL eGFR (2020 CKD-EPI) (test code 89 ML/MIN/1.73 = 64673) CALC BUN/CREAT (test code = 24 RATIO [...] CALC GLOBULIN (test code = 2.4 G/DL 2239) CALC A/G RATIO (test code = 1.8 RATIO 2234) BILIRUBIN, TOTAL (test code = 0.6 MG/DL 7) ALKALINE PHOSPHATASE (test 110 U/L code = 2204) AST (test code = 2218) 16 U/L ALT (test code = 2219) 14 U/L COMPREHENSIVE METABOLIC [id number] 00:00:00 Test Item Value Reference Range Interpretation Comments GLUCOSE (test code = 2217) 99 MG/DL BUN (test code = 2208) 19 MG/DL CREATININE (test code = 2214) 0.80 MG/DL eGFR (2020 CKD-EPI) (test code 89 ML/MIN/1.73 = 13170) CALC BUN/CREAT (test code = 24 RATIO [...] CALC GLOBULIN (test code = 2.4 G/DL 0) CALC A/G RATIO (test code = 1.8 RATIO 2234) BILIRUBIN, TOTAL (test code = 0.6 MG/DL 2206) ALKALINE PHOSPHATASE (test 110 U/L code = 2204) AST (test code = 2218) 16 U/L ALT (test code = 2219) 14 U/L CBC W/AUTO [id number] 00:00:00 Test Item Value Reference Range Interpretation [...] NUCLEATED RBCS (test code = 0.00 K/UL 78253) CBC W/AUTO [id number] 00:00:00 Test Item Value Reference Range Interpretation [...] NUCLEATED RBCS (test code = 0.00 K/UL 98242) CBC W/AUTO [id number] 00:00:00 Test Item Value Reference Range Interpretation [...] NUCLEATED RBCS (test code = 0.00 K/UL 80192) LIPID [id number] 00:00:00 Test Item Value Reference Range Interpretation Comments CHOLESTEROL (test code = 2210) 120 MG/DL TRIGLYCERIDES (test code = 2232) 67 MG/DL HDL CHOLESTEROL (test code = 2220) 63 MG/DL CALC LDL CHOL (test code = 2237) 43 MG/DL RISK RATIO LDL/HDL (test code = 0.68 RATIO 2238) LIPID [id number] 00:00:00 Test Item Value Reference Range Interpretation Comments CHOLESTEROL (test code = 2210) 120 MG/DL TRIGLYCERIDES (test code = 2232) 67 MG/DL HDL CHOLESTEROL (test code = 2220) 63 MG/DL CALC LDL CHOL (test code = 2237) 43 MG/DL RISK RATIO LDL/HDL (test code = 0.68 RATIO 2238) TSH, THIRD [id number] 00:00:00 Test Item Value Reference Range Interpretation Comments TSH, THIRD GENERATION (test code 0.921 UIU/ML = 2821) TSH, THIRD [id number] 00:00:00 Test Item Value Reference Range Interpretation Comments TSH, THIRD GENERATION (test code 0.921 UIU/ML = 2821) TSH, THIRD [id number] 00:00:00 Test Item Value Reference Range Interpretation Comments TSH, THIRD GENERATION (test code 0.921 UIU/ML = 2821) Troponin T (In-House)2021-05-26 09:07:11 Test Item Value Reference Range Interpretation Comments Troponin T (test code = 79 ng/L See_Comment A < 19 ng/L Suggest 59109-3) retest at 3 to 6 hours later [...] res ults. [Automated mess age] The system Ale[employer] generated this result transmitted ref erence range: <=18. Th e reference range was not used to int erpret this result as normal/abnormal . Lab Interpretation Abnormal (test code = 08523-1) [facility]House[facility]2021-05-26 09:07:11 Test Item Value Reference Range Interpretation Comments Troponin T (test code = 79 ng/L See_Comment A < 19 ng/L Suggest 18431-8) retest at 3 to 6 hours later [...] a nd falsely low res ults. [Automated [employer] age] The system Ale[employer] generated this result transmitted ref erence range: <=18. Th e reference range was not used to int erpret this result as normal/abnormal . Lab Interpretation Abnormal (test code = 31215-9) [facility] 09:07:11 Test Item Value Reference Range Interpretation Comments Troponin T (test code = 79 ng/L See_Comment A < 19 ng/L Suggest 72647-8) retest at 3 to 6 hours later [...] a nd falsely low res ults. [Automated [employer] age] The system Ale[employer] generated this result transmitted ref erence range: <=18. Th e reference range was not used to int erpret this result as normal/abnormal . Lab Interpretation Abnormal (test code = 08582-2) [facility]26 09:07:11 Test Item Value Reference Range Interpretation Comments Troponin T (test code = 79 ng/L See_Comment A < 19 ng/L Suggest 35091-8) retest at 3 to 6 hours later [...] res ults. [Automated mess age] The system Ale[employer] generated this result transmitted ref erence range: <=18. Th e reference range was not used to int erpret this result as normal/abnormal . Lab Interpretation Abnormal (test code = 94824-0) [facility] 09:07:11 Test Item Value Reference Range Interpretation Comments Troponin T (test code = 79 ng/L See_Comment A < 19 ng/L Suggest 64457-9) retest at 3 to 6 hours later [...] res ults. [Automated mess age] The system Alea generated this result transmitted ref erence range: <=18. Th e reference range was not used to int erpret this result as normal/abnormal . Lab Interpretation Abnormal (test code = 96918-0) [facility]2021-[facility]-26 09:07:11 Test Item Value Reference Range Interpretation Comments Troponin T (test code = 79 ng/L See_Comment A < 19 ng/L Suggest 45843-8) retest at 3 to 6 hours later [...] res ults. [Automated mess age] The system Alea generated this result transmitted ref erence range: <=18. Th e reference range was not used to int erpret this result as normal/abnormal . Lab Interpretation Abnormal (test code = 75275-2) [facility] [id number] 11:02:26 Test Item Value Reference Range Interpretation Comments Testoster Tot (test 313 ng/dL 193-740 Referenc e Ranges: code = 2986-8) Male: Age 20 - 49 249 - 836 Age >=50 193 - 740 Female: Age 20 - 49 8 - 48 Age & gt;=50 3 - 41 [facility] [id number] 11:02:26 Test Item Value Reference Range Interpretation Comments Testoster Tot (test 313 ng/dL 193-740 Referenc e Ranges: code = 2986-8) Male: Age 20 - 49 249 - 836 Age >=50 193 - 740 Female: Age 20 - 49 8 - 48 Age & gt;=50 3 - 41 [facility] [id number] 11:02:26 Test Item Value Reference Range Interpretation Comments Testoster Tot (test 313 ng/dL 193-740 Referenc e Ranges: code = 2986-8) Male: Age 20 - 49 249 - 836 Age >=50 193 - 740 Female: Age 20 - 49 8 - 48 Age & gt;=50 3 - 41 [facility] [id number] 11:02:26 Test Item Value Reference Range Interpretation Comments Testoster Tot (test 313 ng/dL 193-740 Referenc e Ranges: code = 2986-8) Male: Age 20 - 49 249 - 836 Age >=50 193 - 740 Female: Age 20 - 49 8 - 48 Age & gt;=50 3 - 41 [facility] [id number] 11:02:26 Test Item Value Reference Range Interpretation Comments Testoster Tot (test 313 ng/dL 193-740 Referenc e Ranges: code = 2986-8) Male: Age 20 - 49 249 - 836 Age >=50 193 - 740 Female: Age 20 - 49 8 - 48 Age & gt;=50 3 - 41 [facility] [id number] 11:02:26 Test Item Value Reference Range Interpretation Comments Testoster Tot (test 313 ng/dL 193-740 Referenc e Ranges: code = 2986-8) Male: Age 20 - 49 249 - 836 Age >=50 193 - 740 Female: Age 20 - 49 8 - 48 Age & gt;=50 3 - 41 [facility]state Specific Antigen (PSA) [id number] 11:02:24 Test Item Value Reference Range Interpretation [...] PSA Indication (test Diagnostic code = 9395) [facility] Antigen (PSA) [id number] 11:02:24 Test Item Value Reference Range Interpretation Comments PSA (test code = 0.2 ng/mL 0.0-4.0 Results gre ater than 2857-1) 4519 ng/mL may not be reliable due to matrix effect with ext ended dilution as it exceeds the manufacture r's recommended simon it. Caution should be exercised when interpreting mcgraw ch values and done in conjunction the [facility] clinical contex t. PSA Indication (test Diagnostic code = 9395) [facility]state [facility] Antigen (PSA) [id number] 11:02:24 Test Item Value Reference Range Interpretation Comments PSA (test code = 0.2 ng/mL 0.0-4.0 Results gre ater than 2857-1) 4519 ng/mL may not be reliable due to matrix effect with ext ended dilution as it exceeds the manufacture r's recommended simon it. Caution should be exercised when interpreting mcgraw ch values and done in conjunction the [facility] clinical contex t. PSA Indication (test Diagnostic code = 9395) [facility] Antigen (PSA) Ferqwmusre5348-06-15 11:02:24 Test Item Value Reference Range Interpretation Comments PSA (test code = 0.2 ng/mL 0.0-4.0 Results gre ater than 2857-1) 4519 ng/mL may not be reliable due to matrix effect with ext ended dilution as it exceeds the manufacture r's recommended simon it. Caution should be exercised when interpreting mcgraw ch values and done in conjunction [facility] [employer] t. PSA Indication (test Diagnostic code = 9395) [facility] Antigen (PSA) [id number] 11:02:24 Test Item Value Reference Range Interpretation Comments PSA (test code = 0.2 ng/mL 0.0-4.0 Results gre ater than 2857-1) 4519 ng/mL may not be reliable due to matrix effect with ext ended dilution as it exceeds the manufacture r's recommended simon it. Caution should be exercised when interpreting mcgraw ch values and done in conjunction the [facility] clinical [employer] t. PSA Indication (test Diagnostic code = 9395) [facility] Antigen (PSA) [id number] 11:02:24 Test Item Value Reference Range Interpretation Comments PSA (test code = 0.2 ng/mL 0.0-4.0 Results gre ater than 2857-1) 4519 ng/mL may not be reliable due to matrix effect with ext ended dilution as it exceeds the manufacture r's recommended simon it. Caution should be exercised when interpreting mcgraw ch values and done in conjunction the [facility] clinical contex t. PSA Indication (test Diagnostic code = 9395) [facility]h20[facility] 19:56:03 Test Item Value Reference Range Interpretation Comments ABORh. (test code = 882-1) O POS [facility]AB[facility]h2022-[facility]-13 19:56:03 Test Item Value Reference Range Interpretation Comments ABORh. (test code = 882-1) O POS [facility]2022-[facility]-13 19:56:03 Test Item Value Reference Range Interpretation Comments ABORh. (test code = 882-1) O POS [facility]2022-03-13 19:56:03 Test Item Value Reference Range Interpretation Comments ABORh. (test code = 882-1) O POS [facility]h2022-03-13 19:56:03 Test Item Value Reference Range Interpretation Comments ABORh. (test code = 882-1) O POS [facility]2022-[facility]-13 19:56:03 Test Item Value Reference Range Interpretation Comments ABORh. (test code = 882-1) O POS [facility]enClot Expiration [id number] 19:55:59 Test Item Value Reference Range Interpretation Comments T & S Expiration (test code = 05/27/20215317) [facility] Expiration [id number] 19:55:59 Test Item Value Reference Range Interpretation Comments T & S Expiration (test code = 05/27/20215317) [facility]en[facility] Expiration [id number] 19:55:59 Test Item Value Reference Range Interpretation Comments T & S Expiration (test code = 05/27/20215317) [facility]en[facility] Expiration [id number] 19:55:59 Test Item Value Reference Range Interpretation Comments T & S Expiration (test code = 05/27/20215317) [facility]en[facility] Expiration [id number] 19:55:59 Test Item Value Reference Range Interpretation Comments T & S Expiration (test code = 05/27/20215317) [facility]enCl[facility] Expiration [id number] 19:55:59 Test Item Value Reference Range Interpretation Comments T & S Expiration (test code = 05/27/2021 5318) [place] [id number] 18:46:29 Test Item Value Reference Range Interpretation Comments aPTT (test code = 34.8 See_Comment [Automate d message] The 58354-8) system which ge nerated this result transmit esteban reference range : 24.7 - 36.8 second(s). The reference range was not used to interpr et this result as cuate l/abnormal. [place] 85708022-03-13 18:46:29 Test Item Value Reference Range Interpretation Comments aPTT (test code = 34.8 See_Comment [Automate d message] The 45158-0) system which ge nerated this result transmit esteban reference range : 24.7 - 36.8 second(s). The reference range was not used to interpr et this result as cuate l/abnormal. [place] 85708022-03-13 18:46:29 Test Item Value Reference Range Interpretation Comments aPTT (test code = 34.8 See_Comment [Automate d message] The 01077-2) system which ge nerated this result transmit esteban reference range : 24.7 - 36.8 second(s). The reference range was not used to interpr et this result as cuate l/abnormal. [facility]29 Test Item Value Reference Range Interpretation Comments aPTT (test code = 34.8 See_Comment [Automate d message] The 08176-0) system which ge nerated this result transmit esteban reference range : 24.7 - 36.8 second(s). The reference range was not used to interpr et this result as cuate l/abnormal. [facility]enaPTT[facility]-13 18:46:29 Test Item Value Reference Range Interpretation Comments aPTT (test code = 34.8 See_Comment [Automate d message] The 75929-2) system which ge nerated this result transmit esteban reference range : 24.7 - 36.8 second(s). The reference range was not used to interpr et this result as cuate l/abnormal. [place] 85708022-03-13 18:46:29 Test Item Value Reference Range Interpretation Comments aPTT (test code = 34.8 See_Comment [Automate d message] The 49302-5) system which ge nerated this result transmit esteban reference range : 24.7 - 36.8 second(s). The reference range was not used to interpr et this result as cuate l/abnormal. [facility]enProth[facility] [id number] 18:46:28 Test Item Value Reference Range Interpretation Comments PT (test code = 5902-2) 15.5 See_Comment H [Au tomated message] The system Alea generated this result transmitted ref erence range: 11.5 - 1 3.9 second(s). The reference range was not used to int erpret this result as normal/abnormal . INR (test code = 6301-6) 1.31 0.90-1.10 H Lab Interpretation (test Abnormal code = 62752-5) [facility]enPro[facility] [id number] 18:46:28 Test Item Value Reference Range Interpretation Comments PT (test code = 5902-2) 15.5 See_Comment H [Au tomated message] The system Alea generated this result transmitted ref erence range: 11.5 - 1 3.9 second(s). The reference range was not used to int erpret this result as normal/abnormal . INR (test code = 6301-6) 1.31 0.90-1.10 H Lab Interpretation (test Abnormal code = 35233-3) [facility]en[facility] [id number] 18:46:28 Test Item Value Reference Range Interpretation Comments PT (test code = 5902-2) 15.5 See_Comment H [Au tomated message] The system Alea generated this result transmitted ref erence range: 11.5 - 1 3.9 second(s). The reference range was not used to int erpret this result as normal/abnormal . INR (test code = 6301-6) 1.31 0.90-1.10 H Lab Interpretation (test Abnormal code = 88727-6) [facility]enPro[facility] [id number] 18:46:28 Test Item Value Reference Range Interpretation Comments PT (test code = 5902-2) 15.5 See_Comment H [Au tomated message] The system Alea generated this result transmitted ref erence range: 11.5 - 1 3.9 second(s). The reference range was not used to int erpret this result as normal/abnormal . INR (test code = 6301-6) 1.31 0.90-1.10 H Lab Interpretation (test Abnormal code = 88582-3) [facility]enPro[facility] [id number] 18:46:28 Test Item Value Reference Range Interpretation Comments PT (test code = 5902-2) 15.5 See_Comment H [Au tomated message] The system Alea generated this result transmitted ref erence range: 11.5 - 1 3.9 second(s). The reference range was not used to int erpret this result as normal/abnormal . INR (test code = 6301-6) 1.31 0.90-1.10 H Lab Interpretation (test Abnormal code = 94884-7) [facility]en[facility] [id number] 18:46:28 Test Item Value Reference Range Interpretation Comments PT (test code = 5902-2) 15.5 See_Comment H [Au tomated message] The system Alea generated this result transmitted ref erence range: 11.5 - 1 3.9 second(s). The reference range was not used to int erpret this result as normal/abnormal . INR (test code = 6301-6) 1.31 0.90-1.10 H Lab Interpretation (test Abnormal code = 01290-8) [facility] Platelet Fraction 2021-05-24 18:31:05 Test Item Value Reference Range Interpretation Comments IPF (test code = 5.6 % 0.8-6.2 5988) BEVERLEY (test code = For patients with BEVERLEY) Platelets lower than 100 k/mm3 [facility] Platelet Fraction 2021-05-24 18:31:05 Test Item Value Reference Range Interpretation Comments IPF (test code = 5.6 % 0.8-6.2 5988) BEVERLEY (test code = For patients with BEVERLEY) Platelets lower than 100 k/mm3 [facility] Platelet Fraction 2021-05-24 18:31:05 Test Item Value Reference Range Interpretation Comments IPF (test code = 5.6 % 0.8-6.2 5988) BEVERLEY (test code = For patients with BEVERLEY) Platelets lower than 100 k/mm3 [facility] Platelet Fraction 2021-05-24 18:31:05 Test Item Value Reference Range Interpretation Comments IPF (test code = 5.6 % 0.8-6.2 5988) BEVERLEY (test code = For patients with BEVERLEY) Platelets lower than 100 k/mm3 [facility] Platelet Fraction 2021-05-24 18:31:05 Test Item Value Reference Range Interpretation Comments IPF (test code = 5.6 % 0.8-6.2 5988) BEVERLEY (test code = For patients with BEVERLEY) Platelets lower than 100 k/mm3 [facility] Platelet Fraction 2021-05-24 18:31:05 Test Item Value Reference Range Interpretation Comments IPF (test code = 5.6 % 0.8-6.2 5988) BEVERLEY (test code = For patients with BEVERLEY) Platelets lower than 100 k/mm3 [facility]enR[facility] [id number] 18:31:04 Test Item Value Reference Range Interpretation Comments Retic Cnt Auto (test code 1.7 % 0.5-1.5 H = 74592-3) RETHE (test code = 33.7 pg 23.2-37.5 00270-0) IRF (test code = 20997-3) 12.0 % 2.3-18.0 BEVERLEY (test code = BEVERLEY) For patients with Platelets lower than 100 k/mm3 Lab Interpretation (test Abnormal code = 72015-3) [facility]enRet [id number] 18:31:04 Test Item Value Reference Range Interpretation Comments Retic Cnt Auto (test code 1.7 % 0.5-1.5 H = 89520-5) RETHE (test code = 33.7 pg 23.2-37.5 95825-9) IRF (test code = 88643-3) 12.0 % 2.3-18.0 BEVERLEY (test code = BEVERLEY) For patients with Platelets lower than 100 k/mm3 Lab Interpretation (test Abnormal code = 03378-7) [facility]enR[facility] [id number] 18:31:04 Test Item Value Reference Range Interpretation Comments Retic Cnt Auto (test code 1.7 % 0.5-1.5 H = 29616-4) RETHE (test code = 33.7 pg 23.2-37.5 52450-9) IRF (test code = 47407-5) 12.0 % 2.3-18.0 BEVERLEY (test code = BEVERLEY) For patients with Platelets lower than 100 k/mm3 Lab Interpretation (test Abnormal code = 59059-1) [facility] [id number] 18:31:04 Test Item Value Reference Range Interpretation Comments Retic Cnt Auto (test code 1.7 % 0.5-1.5 H = 65735-9) RETHE (test code = 33.7 pg 23.2-37.5 73193-1) IRF (test code = 33984-3) 12.0 % 2.3-18.0 BEVERLEY (test code = BEVERLEY) For patients with Platelets lower than 100 k/mm3 Lab Interpretation (test Abnormal code = 17246-0) [facility]enR[facility] [id number] 18:31:04 Test Item Value Reference Range Interpretation Comments Retic Cnt Auto (test code 1.7 % 0.5-1.5 H = 96895-8) RETHE (test code = 33.7 pg 23.2-37.5 80891-8) IRF (test code = 06979-7) 12.0 % 2.3-18.0 BEVERLEY (test code = BEVERLEY) For patients with Platelets lower than 100 k/mm3 Lab Interpretation (test Abnormal code = 74372-0) [facility]enR[facility] [id number] 18:31:04 Test Item Value Reference Range Interpretation Comments Retic Cnt Auto (test code 1.7 % 0.5-1.5 H = 36355-0) RETHE (test code = 33.7 pg 23.2-37.5 91319-0) IRF (test code = 41174-5) 12.0 % 2.3-18.0 BEVERLEY (test code = BEVERLEY) For patients with Platelets lower than 100 k/mm3 Lab Interpretation (test Abnormal code = 05005-0) [facility]enElectrolyte [id number] 10:22:54 Test Item Value Reference Range Interpretation [...] = 13 See_Comment [Aut omated message] The 68284-7) system which ge nerated this result tra nsmitted reference range : 4 - 14 mEq/L. The refe rence range was not u sed to interpret this result as normal/abnormal . [facility]enElectrolyte [id number] 10:22:54 Test Item Value Reference Range Interpretation [...] to interpret this result as normal/abnormal . [facility]enElectro[facility] [id number] 10:22:54 Test Item Value Reference Range Interpretation [...] to interpret this result as normal/abnormal . [facility]enElectro[facility] [id number] 10:22:54 Test Item Value Reference Range Interpretation [...] to interpret this result as normal/abnormal . [facility]enElectro[facility] [id number] 10:22:54 Test Item Value Reference Range Interpretation [...] to interpret this result as normal/abnormal . [facility]enElectro[facility] [id number] 10:22:54 Test Item Value Reference Range Interpretation [...] to interpret this result as normal/abnormal . [facility]enPhosphorus Orpts0596-51-31 10:22:52 Test Item Value Reference Range Interpretation Comments Phosphorus (test code = 2777-1) 4.3 mg/dL 2.5-4.5 [facility]enPhosph[facility] [id number] 10:22:52 Test Item Value Reference Range Interpretation Comments Phosphorus (test code = 2777-1) 4.3 mg/dL 2.5-4.5 [facility]enPhosphorus [id number] 10:22:52 Test Item Value Reference Range Interpretation Comments Phosphorus (test code = 2777-1) 4.3 mg/dL 2.5-4.5 [facility]enPhosph[facility] [id number] 10:22:52 Test Item Value Reference Range Interpretation Comments Phosphorus (test code = 2777-1) 4.3 mg/dL 2.5-4.5 [facility]enPhosph[facility] [id number] 10:22:52 Test Item Value Reference Range Interpretation Comments Phosphorus (test code = 2777-1) 4.3 mg/dL 2.5-4.5 [facility]enPhosph[facility] [id number] 10:22:52 Test Item Value Reference Range Interpretation Comments Phosphorus (test code = 2777-1) 4.3 mg/dL 2.5-4.5 [facility]enCal[facility] [id number] 10:22:51 Test Item Value Reference Range Interpretation Comments Calcium Lvl (test code = 30100-9) 8.9 mg/dL 8.4-10.2 [facility]enCal[facility] [id number] 10:22:51 Test Item Value Reference Range Interpretation Comments Calcium Lvl (test code = 01433-8) 8.9 mg/dL 8.4-10.2 [facility]enCal[facility] [id number] 10:22:51 Test Item Value Reference Range Interpretation Comments Calcium Lvl (test code = 12292-7) 8.9 mg/dL 8.4-10.2 [facility]enCal[facility] [id number] 10:22:51 Test Item Value Reference Range Interpretation Comments Calcium Lvl (test code = 66544-1) 8.9 mg/dL 8.4-10.2 [facility]enCal[facility] [id number] 10:22:51 Test Item Value Reference Range Interpretation Comments Calcium Lvl (test code = 72994-8) 8.9 mg/dL 8.4-10.2 [facility]enCal[facility] [id number] 10:22:51 Test Item Value Reference Range Interpretation Comments Calcium Lvl (test code = 73456-8) 8.9 mg/dL 8.4-10.2 [facility]enGlomerular Filtration Rate 2021-05-24 10:22:50 Test Item Value Reference Range Interpretation Comments eGFR-AA (test code 84 See_Comment Normal eG FR: >= 60 = 99975-7) mL/min/1.73 m2N ote: The eGFR is calculated [...] See_Comment Normal e GFR: >= 60 = 97041-0) mL/min/1.73 m2N ote: The eGFR is calculated [...] Kidney failure <15 [Au tomated message] The [employer] stem which generated this result transmitted ref erence range: >=60 mL/min/1.7 3 sq. m. The reference range was not used to interpret th is result as normal/abnormal . [facility]enGlomerular Filtration Rate 2021-05-24 10:22:50 Test Item Value Reference Range Interpretation Comments eGFR-AA (test code 84 See_Comment Normal eG FR: >= 60 = 01858-9) mL/min/1.73 m2N ote: The eGFR is calculated [...] Kidney failure <15 [A utomated message] The sy stem which generated this result transmitted ref erence range: >=60 mL/min/1.7 3 sq. m. The reference range was not used to interpret th is result as normal/abnormal . eGFR-DARIEN (test code 73 See_Comment Normal e GFR: >= 60 = 35136-3) mL/min/1.73 m2N ote: The eGFR is calculated [...] interpret th is result as normal/abnormal . [facility]enGl[facility] Filtration Rate 2021-05-24 10:22:50 Test Item Value Reference Range Interpretation Comments eGFR-AA (test code 84 See_Comment Normal eG FR: >= 60 = 28156-5) mL/min/1.73 m2N ote: The eGFR is calculated [...] See_Comment Normal e GFR: >= 60 = 87526-0) mL/min/1.73 m2N ote: The eGFR is calculated [...] interpret th is result as normal/abnormal . [facility]enGl[facility] Fil[facility] Rate 2021-05-24 10:22:50 Test Item Value Reference Range Interpretation Comments eGFR-AA (test code 84 See_Comment Normal eG FR: >= 60 = 28134-0) mL/min/1.73 m2N ote: The eGFR is calculated [...] See_Comment Normal e GFR: >= 60 = 00162-5) mL/min/1.73 m2N ote: The eGFR is calculated [...] Kidney failure <15 [Au tomated message] The [employer] stem which generated this result transmitted ref erence range: >=60 mL/min/1.7 3 sq. m. The reference range was not used to interpret th is result as normal/abnormal . [facility] ArimoGlomerular Filtration Rate 2021-05-24 10:22:50 Test Item Value Reference Range Interpretation Comments eGFR-AA (test code 84 See_Comment Normal eG FR: >= 60 = 11062-7) mL/min/1.73 m2N ote: The eGFR is calculated [...] See_Comment Normal e GFR: >= 60 = 10358-2) mL/min/1.73 m2N ote: The eGFR is calculated [...] interpret th is result as normal/abnormal . [facility] ArimoGlomerular Filtration Rate 2021-05-24 10:22:50 Test Item Value Reference Range Interpretation Comments eGFR-AA (test code 84 See_Comment Normal eG FR: >= 60 = 80168-9) mL/min/1.73 m2N ote: The eGFR is calculated [...] See_Comment Normal e GFR: >= 60 = 35440-5) mL/min/1.73 m2N ote: The eGFR is calculated [...] interpret th is result as normal/abnormal . [facility]enMagn[facility] Joibu1243-22-03 10:22:48 Test Item Value Reference Range Interpretation Comments Magnesium (test code = 96123-5) 2.1 mg/dL 1.6-2.6 [facility]enMagn[facility] [id number] 10:22:48 Test Item Value Reference Range Interpretation Comments Magnesium (test code = 02714-4) 2.1 mg/dL 1.6-2.6 [facility]enMagn[facility] [id number] 10:22:48 Test Item Value Reference Range Interpretation Comments Magnesium (test code = 62998-3) 2.1 mg/dL 1.6-2.6 [facility]enMagn[facility] [id number] 10:22:48 Test Item Value Reference Range Interpretation Comments Magnesium (test code = 53042-8) 2.1 mg/dL 1.6-2.6 [facility]enMagn[facility] [id number] 10:22:48 Test Item Value Reference Range Interpretation Comments Magnesium (test code = 30545-0) 2.1 mg/dL 1.6-2.6 [facility]enMagn[facility] [id number] 10:22:48 Test Item Value Reference Range Interpretation Comments Magnesium (test code = 77557-7) 2.1 mg/dL 1.6-2.6 [facility] [facility] [place] [id number] 10:22:47 Test Item Value Reference Range Interpretation [...] diabetes Lab Interpretation (test Abnormal code = 87504-0) [facility] [place] [id number] 10:22:47 Test Item Value Reference Range Interpretation [...] diabetes Lab Interpretation (test Abnormal code = 16160-2) [facility] [place] [id number] 10:22:47 Test Item Value Reference Range Interpretation [...] diabetes Lab Interpretation (test Abnormal code = 15563-0) [facility] [place] Ponac5432-95-10 10:22:47 Test Item Value Reference Range Interpretation [...] diabetes Lab Interpretation (test Abnormal code = 33659-3) [facility] [place] [id number] 10:22:47 Test Item Value Reference Range Interpretation [...] diabetes Lab Interpretation (test Abnormal code = 57119-3) [facility] [place] Pncry1170-44-19 10:22:47 Test Item Value Reference Range Interpretation [...] diabetes Lab Interpretation (test Abnormal code = 96283-5) [facility] [place].[facility]um Izjugehuov6385-51-72 10:22:46 Test Item Value Reference Range Interpretation Comments Creatinine (test code = 2160-0) 0.98 mg/dL 0.67-1.17 [facility] [place].Serum Agletfkbwi9197-19-89 10:22:46 Test Item Value Reference Range Interpretation Comments Creatinine (test code = 2160-0) 0.98 mg/dL 0.67-1.17 [facility] [place].[facility]um Omabmtiuae7930-81-44 10:22:46 Test Item Value Reference Range Interpretation Comments Creatinine (test code = 2160-0) 0.98 mg/dL 0.67-1.17 [facility] [place].Serum Grugnibzdz1976-19-48 10:22:46 Test Item Value Reference Range Interpretation Comments Creatinine (test code = 2160-0) 0.98 mg/dL 0.67-1.17 [facility] [place].Serum Hxlhtjlhtq5623-48-79 10:22:46 Test Item Value Reference Range Interpretation Comments Creatinine (test code = 2160-0) 0.98 mg/dL 0.67-1.17 [facility] [place].Serum Qohyyhbiiy2916-87-04 10:22:46 Test Item Value Reference Range Interpretation Comments Creatinine (test code = 2160-0) 0.98 mg/dL 0.67-1.17 [facility] [place]13 10:22:45 Test Item Value Reference Range Interpretation Comments BUN (test code = 3094-0) 23 mg/dL 6- [facility] [place]-13 10:22:45 Test Item Value Reference Range Interpretation Comments BUN (test code = 3094-0) 23 mg/dL 09-03 [facility] [place]22-[facility]-13 10:22:45 Test Item Value Reference Range Interpretation Comments BUN (test code = 3094-0) 23 mg/dL 6- [facility] [place]-13 10:22:45 Test Item Value Reference Range Interpretation Comments BUN (test code = 3094-0) 23 mg/dL 6- [facility] [place]-13 10:22:45 Test Item Value Reference Range Interpretation Comments BUN (test code = 3094-0) 23 mg/dL - [facility] [place]-03-13 10:22:45 Test Item Value Reference Range Interpretation Comments BUN (test code = 3094-0) 23 mg/dL 09-03 [facility] [place] + COVID-19, Nasopharyngeal [id number] 22:18:45 Test Item Value Reference Range Interpretation Comments Adenovirus (test code = Not Detected Not Detected 3956) Coronavirus 229E (test Not Detected Not Detected code = 5349) Coronavirus HKU1 (test Not Detected Not Detected code = 5350) Coronavirus NL63 (test Not Detected Not Detected code = 5351) Coronavirus OC43 (test Not Detected Not Detected code = 5352) COVID19 (SARS-CoV-2) Not Detected Not Detected (test code = 91778-5) Human Metapneumovirus Not Detected Not Detected (test [...] Detected Not Detected Parapertussis (test code = 24157) Bordetella pertussis Not Detected Not Detected (test [...] including SARS-CoV-2, from a single nasopharyngeal swab (BUSINESS INITIATIVES MANAGER) specimen obtained from individuals suspected of [...] that may not be detected by an BUSINESS INITIATIVES MANAGER specimen. Internal controls are used to [...] and high-complexity tests. The [facility]biology [facility] at [facility], CLIA Accreditation #[id number] and CAP Accreditation #[id number], verified the performance characteristics of this assay. [facility] at [facility] performs the assay using the Showcase System. The BioFire RP2.1 is a real-time, nested multiplexed polymerase chain reaction test designed to simultaneously identify nucleic acids from 22 different viruses and bacteria associated with respiratory tract infection, including SARS-CoV-2, from a single nasopharyngeal swab (BUSINESS INITIATIVES MANAGER) specimen obtained from individuals suspected of [...] that may not be detected by an BUSINESS INITIATIVES MANAGER specimen. Internal controls are used to [...] and high-complexity tests. The [facility] at [facility], CLIA Accreditation #[id number] and CAP Accreditation #[id number], verified the performance characteristics of this assay. [facility] at [facility] performs the assay using the Showcase System. [facility] COVID-19, Nasopharyngeal [id number] 22:18:45 Test Item Value Reference Range Interpretation Comments Adenovirus (test code = Not Detected Not Detected 5475) Coronavirus 229E (test Not Detected Not Detected code = 5349) Coronavirus HKU1 (test Not Detected Not Detected code = 5350) Coronavirus NL63 (test Not Detected Not Detected code = 5351) Coronavirus OC43 (test Not Detected Not Detected code = 5352) COVID19 (SARS-CoV-2) Not Detected Not Detected (test code = 97218-7) Human Metapneumovirus Not Detected Not Detected (test [...] Detected Not Detected Parapertussis (test code = 13715) Bordetella pertussis Not Detected Not Detected (test [...] including SARS-CoV-2, from a single nasopharyngeal swab (BUSINESS INITIATIVES MANAGER) specimen obtained from individuals suspected of [...] that may not be detected by an BUSINESS INITIATIVES MANAGER specimen. Internal controls are used to [...] and high-complexity tests. The [facility] at [facility], CLIA Accreditation #[id number] and CAP Accreditation #[id number], verified the performance characteristics of this assay. [facility] at [facility] performs the assay using the Showcase System. The BioFire RP2.1 is a real-time, nested multiplexed polymerase chain reaction test designed to simultaneously identify nucleic acids from 22 different viruses and bacteria associated with respiratory tract infection, including SARS-CoV-2, from a single nasopharyngeal swab (BUSINESS INITIATIVES MANAGER) specimen obtained from individuals suspected of [...] that may not be detected by an BUSINESS INITIATIVES MANAGER specimen. Internal controls are used to [...] and high-complexity tests. The [facility] at [facility], CLIA Accreditation #[id number] and CAP Accreditation #[id number], verified the performance characteristics of this assay. [facility] at [facility] performs the assay using the Showcase System. [facility] COVID-19, Nasopharyngeal [id number] 22:18:45 Test Item Value Reference Range Interpretation Comments Adenovirus (test code = Not Detected Not Detected 1800) Coronavirus 229E (test Not Detected Not Detected code = 5349) Coronavirus HKU1 (test Not Detected Not Detected code = 5350) Coronavirus NL63 (test Not Detected Not Detected code = 5351) Coronavirus OC43 (test Not Detected Not Detected code = 5352) COVID19 (SARS-CoV-2) Not Detected Not Detected (test code = 44508-7) Human Metapneumovirus Not Detected Not Detected (test [...] Detected Not Detected Parapertussis (test code = 24841) Bordetella pertussis Not Detected Not Detected (test [...] including SARS-CoV-2, from a single nasopharyngeal swab (BUSINESS INITIATIVES MANAGER) specimen obtained from individuals suspected of [...] that may not be detected by an BUSINESS INITIATIVES MANAGER specimen. Internal controls are used to [...] and high-complexity tests. The [facility] at [facility], CLIA Accreditation #[id number] and CAP Accreditation #[id number], verified the performance characteristics of this assay. [facility] at [facility] performs the assay using the Showcase System. The TrufflsFire RP2.1 is a real-time, nested multiplexed polymerase chain reaction test designed to simultaneously identify nucleic acids from 22 different viruses and bacteria associated with respiratory tract infection, including SARS-CoV-2, from a single nasopharyngeal swab (BUSINESS INITIATIVES MANAGER) specimen obtained from individuals suspected of [...] that may not be detected by an BUSINESS INITIATIVES MANAGER specimen. Internal controls are used to [...] and high-complexity tests. The [facility] at [facility], CLIA Accreditation #[id number] and CAP Accreditation #[id number], verified the performance characteristics of this assay. [facility] at [facility] performs the assay using the Showcase System. [facility], Nasopharyngeal [id number] 22:18:45 Test Item Value Reference Range Interpretation Comments Adenovirus (test code = Not Detected Not Detected 8321) Coronavirus 229E (test Not Detected Not Detected code = 5349) Coronavirus HKU1 (test Not Detected Not Detected code = 5350) Coronavirus NL63 (test Not Detected Not Detected code = 5351) Coronavirus OC43 (test Not Detected Not Detected code = 5352) COVID19 (SARS-CoV-2) Not Detected Not Detected (test code = 98082-4) Human Metapneumovirus Not Detected Not Detected (test [...] Detected Not Detected Parapertussis (test code = 01394) Bordetella pertussis Not Detected Not Detected (test [...] including SARS-CoV-2, from a single nasopharyngeal swab (BUSINESS INITIATIVES MANAGER) specimen obtained from individuals suspected of [...] that may not be detected by an BUSINESS INITIATIVES MANAGER specimen. Internal controls are used to [...] and high-complexity tests. The [facility] at [facility], CLIA Accreditation #[id number] and CAP Accreditation #[id number], verified the performance characteristics of this assay. [facility] at [facility] performs the assay using the Showcase System. The BioFire RP2.1 is a real-time, nested multiplexed polymerase chain reaction test designed to simultaneously identify nucleic acids from 22 different viruses and bacteria associated with respiratory tract infection, including SARS-CoV-2, from a single nasopharyngeal swab (BUSINESS INITIATIVES MANAGER) specimen obtained from individuals suspected of [...] that may not be detected by an BUSINESS INITIATIVES MANAGER specimen. Internal controls are used to [...] and high-complexity tests. The [facility] at [facility], CLIA Accreditation #[id number] and CAP Accreditation #[id number], verified the performance characteristics of this assay. [facility] at [facility] performs the assay using the Showcase System. [facility] COVID-19, Nasopharyngeal [id number] 22:18:45 Test Item Value Reference Range Interpretation Comments Adenovirus (test code = Not Detected Not Detected 2522) Coronavirus 229E (test Not Detected Not Detected code = 5349) Coronavirus HKU1 (test Not Detected Not Detected code = 5350) Coronavirus NL63 (test Not Detected Not Detected code = 5351) Coronavirus OC43 (test Not Detected Not Detected code = 5352) COVID19 (SARS-CoV-2) Not Detected Not Detected (test code = 81226-3) Human Metapneumovirus Not Detected Not Detected (test [...] Detected Not Detected Parapertussis (test code = 00250) Bordetella pertussis Not Detected Not Detected (test code = 4854) Chlamydiophila Not Detected Not Detected pneumoniae (test code = 5139) Mycoplasma pneumoniae Not Detected Not Detected (test code = 6203) BEVERLEY (test code = BEVERLEY) The TrufflsFire RP2.1 is a real-time, nested multiplexed polymerase chain reaction test designed to simultaneously identify nucleic acids from 22 different viruses and bacteria associated with respiratory tract infection, including SARS-CoV-2, from a single nasopharyngeal swab (BUSINESS INITIATIVES MANAGER) specimen obtained from individuals suspected of [...] that may not be detected by an BUSINESS INITIATIVES MANAGER specimen. Internal controls are used to [...] and high-complexity tests. The Microbiology Laboratory at [facility], CLIA Accreditation #[id number] and CAP Accreditation #[id number], verified the performance characteristics of this assay. [facility] at [facility] performs the assay using the Showcase System. The BioFire RP2.1 is a real-time, nested multiplexed polymerase chain reaction test designed to simultaneously identify nucleic acids from 22 different viruses and bacteria associated with respiratory tract infection, including SARS-CoV-2, from a single nasopharyngeal swab (BUSINESS INITIATIVES MANAGER) specimen obtained from individuals suspected of [...] that may not be detected by an BUSINESS INITIATIVES MANAGER specimen. Internal controls are used to [...] and high-complexity tests. The [facility] at [facility], CLIA Accreditation #[id number] and CAP Accreditation #[id number], verified the performance characteristics of this assay. [facility] at [facility] performs the assay using the Showcase System. [facility], Nasopharyngeal [id number] 22:18:45 Test Item Value Reference Range Interpretation Comments Adenovirus (test code = Not Detected Not Detected 4470) Coronavirus 229E (test Not Detected Not Detected code = 5349) Coronavirus HKU1 (test Not Detected Not Detected code = 5350) Coronavirus NL63 (test Not Detected Not Detected code = 5351) Coronavirus OC43 (test Not Detected Not Detected code = 5352) COVID19 (SARS-CoV-2) Not Detected Not Detected (test code = 68221-6) Human Metapneumovirus Not Detected Not Detected (test [...] Detected Not Detected Parapertussis (test code = 46002) Bordetella pertussis Not Detected Not Detected (test code = 4854) Chlamydiophila Not Detected Not Detected pneumoniae (test code = 5139) Mycoplasma pneumoniae Not Detected Not Detected (test code = 6203) BEVERLEY (test code = BEVERLEY) The TrufflsFire RP2.1 is a real-time, nested multiplexed polymerase chain reaction test designed to simultaneously identify nucleic acids from 22 different viruses and bacteria associated with respiratory tract infection, including SARS-CoV-2, from a single nasopharyngeal swab (BUSINESS INITIATIVES MANAGER) specimen obtained from individuals suspected of [...] that may not be detected by an BUSINESS INITIATIVES MANAGER specimen. Internal controls are used to [...] and high-complexity tests. The [facility] at [facility], CLIA Accreditation #[id number] and CAP Accreditation #[id number], verified the performance characteristics of this assay. [facility] at [facility] performs the assay using the Showcase System. The BioFire RP2.1 is a real-time, nested multiplexed polymerase chain reaction test designed to simultaneously identify nucleic acids from 22 different viruses and bacteria associated with respiratory tract infection, including SARS-CoV-2, from a single nasopharyngeal swab (BUSINESS INITIATIVES MANAGER) specimen obtained from individuals suspected of [...] that may not be detected by an BUSINESS INITIATIVES MANAGER specimen. Internal controls are used to [...] and high-complexity tests. The [facility] at [facility], CLIA Accreditation #[id number] and CAP Accreditation #[id number], verified the performance characteristics of this assay. [facility] at [facility] performs the assay using the Showcase System. [facility]-zrzsm2008-71-05 20:40:38 Test Item Value Reference Range Interpretation Comments D-Dimer (test code 0.38 See_Comment The cut o ff value for = 62377-8) exclusion of ve nous thromboembolism is <0.51 mcg/mL FEUs (fibrinoge n equivalent units). [Automa esteban message] The system Alea generated this result tra nsmitted reference range : 0.10 - 0.50 mcg/ml FEU. The reference range was not u sed to interpret this result as normal/abnormal . [facility] [place]-mwcir7047-56-09 20:40:38 Test Item Value Reference Range Interpretation Comments D-Dimer (test code 0.38 See_Comment The cut o ff value for = 98409-4) exclusion of ve nous thromboembolism is <0.51 mcg/mL FEUs (fibrinoge n equivalent units). [Automa esteban message] The system Alea generated this result tra nsmitted reference range : 0.10 - 0.50 mcg/ml FEU. The reference range was not u sed to interpret this result as normal/abnormal . [facility]-zwxdc5740-92-45 20:40:38 Test Item Value Reference Range Interpretation Comments D-Dimer (test code 0.38 See_Comment The cut o ff value for = 99626-5) exclusion of ve nous thromboembolism is <0.51 mcg/mL FEUs (fibrinoge n equivalent units). [Automa esteban message] The system Alea generated this result tra nsmitted reference range : 0.10 - 0.50 mcg/ml FEU. The reference range was not u sed to interpret this result as normal/abnormal . [facility]-qrtgl3619-39-94 20:40:38 Test Item Value Reference Range Interpretation Comments D-Dimer (test code 0.38 See_Comment The cut o ff value for = 89105-3) exclusion of ve nous thromboembolism is <0.51 mcg/mL FEUs (fibrinoge n equivalent units). [Automa esteban message] The system Alea generated this result tra nsmitted reference range : 0.10 - 0.50 mcg/ml FEU. The reference range was not u sed to interpret this result as normal/abnormal . [facility]-ezkxt5184-53-26 20:40:38 Test Item Value Reference Range Interpretation Comments D-Dimer (test code 0.38 See_Comment The cut o ff value for = 24715-1) exclusion of ve nous thromboembolism is <0.51 mcg/mL FEUs (fibrinoge n equivalent units). [Automa esteban message] The system Alea generated this result tra nsmitted reference range : 0.10 - 0.50 mcg/ml FEU. The reference range was not u sed to interpret this result as normal/abnormal . [facility]-lxkdj9385-77-05 20:40:38 Test Item Value Reference Range Interpretation Comments D-Dimer (test code 0.38 See_Comment The cut o ff value for = 32780-9) exclusion of ve nous thromboembolism is <0.51 mcg/mL FEUs (fibrinoge n equivalent units). [Automa esteban message] The system Alea generated this result tra nsmitted reference range : 0.10 - 0.50 mcg/ml FEU. The reference range was not u sed to interpret this result as normal/abnormal . [facility]2021-[facility]-22 20:33:25 Test Item Value Reference Range Interpretation Comments NT ProBNP (test code = 538 pg/mL See_Comment H [Aut omated message] 25129-5) The system Alea generated this result transmit esteban reference range : <=450. The refe rence range was not u sed to interpret th is result as normal/abnormal . Lab Interpretation (test Abnormal code = 52238-2) [facility]2021-05-22 20:33:25 Test Item Value Reference Range Interpretation Comments NT ProBNP (test code = 538 pg/mL See_Comment H [Aut omated message] 50313-9) The system Alea generated this result transmit esteban reference range : <=450. The refe rence range was not u sed to interpret th is result as normal/abnormal . Lab Interpretation (test Abnormal code = 13785-3) [facility]2021-05-22 20:33:25 Test Item Value Reference Range Interpretation Comments NT ProBNP (test code = 538 pg/mL See_Comment H [Aut omated message] 62361-2) The system Alea generated this result transmit esteban reference range : <=450. The refe rence range was not u sed to interpret th is result as normal/abnormal . Lab Interpretation (test Abnormal code = 37873-6) [facility]2021-[facility]-22 20:33:25 Test Item Value Reference Range Interpretation Comments NT ProBNP (test code = 538 pg/mL See_Comment H [Aut omated message] 06583-0) The system Alea generated this result transmit esteban reference range : <=450. The refe rence range was not u sed to interpret th is result as normal/abnormal . Lab Interpretation (test Abnormal code = 72038-9) [facility]2021-05-22 20:33:25 Test Item Value Reference Range Interpretation Comments NT ProBNP (test code = 538 pg/mL See_Comment H [Aut omated message] 61455-2) The system Alea generated this result transmit esteban reference range : <=450. The refe rence range was not u sed to interpret th is result as normal/abnormal . Lab Interpretation (test Abnormal code = 16881-2) [facility]2021-05-22 20:33:25 Test Item Value Reference Range Interpretation Comments NT ProBNP (test code = 538 pg/mL See_Comment H [Aut omated message] 23575-5) The system Alea generated this result transmit esteban reference range : <=450. The refe rence range was not u sed to interpret th is result as normal/abnormal . Lab Interpretation (test Abnormal code = 55594-8) [facility] Pkbrc7172-01-15 20:32:34 Test Item Value Reference Range Interpretation Comments CK (test code = 2157-6) 148 U/L 39-308 CK MB (test code = 6.3 ng/mL See_Comment [Automat ed message] 53114-3) The system Alea generated this result transmitted ref erence range: <=10.4. The reference range was not used to int erpret this result as normal/abnormal . Troponin T (test code = 67 ng/L See_Comment A < 19 ng/L Suggest 87107-3) retest at 3 to 6 hours later [...] res ults. [Automated mess age] The system Alea generated this result transmitted ref erence range: <=18. Th e reference range was not used to int erpret this result as normal/abnormal . Lab Interpretation Abnormal (test code = 83752-4) [facility] [id number] 20:32:34 Test Item Value Reference Range Interpretation Comments CK (test code = 2157-6) 148 U/L 39-308 CK MB (test code = 6.3 ng/mL See_Comment [Automat ed message] 39856-0) The system Alea generated this result transmitted ref erence range: <=10.4. The reference range was not used to int erpret this result as normal/abnormal . Troponin T (test code = 67 ng/L See_Comment A < 19 ng/L Suggest 17143-9) retest at 3 to 6 hours later [...] res ults. [Automated mess age] The system Alea generated this result transmitted ref erence range: <=18. Th e reference range was not used to int erpret this result as normal/abnormal . Lab Interpretation Abnormal (test code = 98939-5) [facility] [id number] 20:32:34 Test Item Value Reference Range Interpretation Comments CK (test code = 2157-6) 148 U/L 39-308 CK MB (test code = 6.3 ng/mL See_Comment [Automat ed message] 80719-3) The system Alea generated this result transmitted ref erence range: <=10.4. The reference range was not used to int erpret this result as normal/abnormal . Troponin T (test code = 67 ng/L See_Comment A < 19 ng/L Suggest 26996-6) retest at 3 to 6 hours later to rule out myocardial infarction >= 1 9 to <=52 ng/L Possi ble myocardial inju ry. Suggest retest at 3 hours. - a mason ge of < 20 ng/L, rete st at 6 hours - a ch laurel of >= 20 ng/L, suggestive of myocardial [...] res ults. [Automated mess age] The system Alea generated this result transmitted ref erence range: <=18. Th e reference range was not used to int erpret this result as normal/abnormal . Lab Interpretation Abnormal (test code = 81010-7) [facility] [id number] 20:32:34 Test Item Value Reference Range Interpretation Comments CK (test code = 2157-6) 148 U/L 39-308 CK MB (test code = 6.3 ng/mL See_Comment [Automat ed message] 30624-3) The system Alea generated this result transmitted ref erence range: <=10.4. The reference range was not used to int erpret this result as normal/abnormal . Troponin T (test code = 67 ng/L See_Comment A < 19 ng/L Suggest 02671-1) retest at 3 to 6 hours later to rule out myocardial infarction >= 1 9 to <=52 ng/L Possi ble myocardial inju ry. Suggest retest at 3 hours. - a mason ge of < 20 ng/L, rete st at 6 hours - a ch laurel of >= 20 ng/L, suggestive of myocardial [...] res ults. [Automated mess age] The system Alea generated this result transmitted ref erence range: <=18. Th e reference range was not used to int erpret this result as normal/abnormal . Lab Interpretation Abnormal (test code = 39755-6) [facility] Yqkqj9355-21-14 20:32:34 Test Item Value Reference Range Interpretation Comments CK (test code = 2157-6) 148 U/L 39-308 CK MB (test code = 6.3 ng/mL See_Comment [Automat ed message] 50583-3) The system Alea generated this result transmitted ref erence range: <=10.4. The reference range was not used to int erpret this result as normal/abnormal . Troponin T (test code = 67 ng/L See_Comment A < 19 ng/L Suggest 41463-8) retest at 3 to 6 hours later to rule out myocardial infarction >= 1 9 to <=52 ng/L Poss ible myocardial inju ry. Suggest retest at 3 hours. - a mason ge of < 20 ng/L, rete st at 6 hours - a ch laurel of >= 20 ng/L, suggestive of myocardial [...] res ults. [Automated mess age] The system Alea generated this result transmitted ref erence range: <=18. Th e reference range was not used to int erpret this result as normal/abnormal . Lab Interpretation Abnormal (test code = 92680-8) [facility] Hrima0508-85-46 20:32:34 Test Item Value Reference Range Interpretation Comments CK (test code = 2157-6) 148 U/L 39-308 CK MB (test code = 6.3 ng/mL See_Comment [Automat ed message] 77045-0) The system Alea generated this result transmitted ref erence range: <=10.4. The reference range was not used to int erpret this result as normal/abnormal . Troponin T (test code = 67 ng/L See_Comment A < 19 ng/L Suggest 77001-8) retest at 3 to 6 hours later [...] res ults. [Automated mess age] The system Alea generated this result transmitted ref erence range: <=18. Th e reference range was not used to int erpret this result as normal/abnormal . Lab Interpretation Abnormal (test code = 48082-6) [facility] Qjyuqpkad9135-89-99 20:32:19 Test Item Value Reference Range Interpretation Comments Bili Total (test 0.4 mg/dL See_Comment Indocyanine Green (ICG) code = 1974-) may cause fal sely elevated biliru bin results. Total and direct bilirubin must not be measured from s amples containing indo cyanine green. False el evation of total bilirubin can be seen in patient s with IgG concentrations above 28 g/L. [Automated message] The system Alea generated this result transmitted ref erence range: <=1.2. T he reference range was not used to interpr et this result as normal/abnormal . Bili Direct (test See_Comment Indocyanin e Green (ICG) code = 1967-) may cause fal sely elevated biliru bin [...] par ameters are outside rep ortable range [facility] Lmuflqigp0828-45-64 20:32:19 Test Item Value Reference Range Interpretation [...] above 28 g/L. [Automated message] The system Alea generated this result transmitted ref erence range: [...] par ameters are outside rep ortable range [facility] Zjvttzoba4008-23-50 20:32:19 Test Item Value Reference Range Interpretation [...] above 28 g/L. [Automated message] The system Alea generated this result transmitted ref erence range: [...] par ameters are outside rep ortable range [facility] Wxtcvahve7478-55-84 20:32:19 Test Item Value Reference Range Interpretation [...] above 28 g/L. [Automated message] The system Alea generated this result transmitted ref erence range: [...] par ameters are outside rep ortable range [facility] Jwnqokvah9412-39-13 20:32:19 Test Item Value Reference Range Interpretation [...] above 28 g/L. [Automated message] The system Alea generated this result transmitted ref erence range: [...] par ameters are outside rep ortable range [facility] Qozecjifc5065-35-17 20:32:19 Test Item Value Reference Range Interpretation [...] above 28 g/L. [Automated message] The system Alea generated this result transmitted ref erence range: [...] 0.0-0.9 Unable t o calculate code = 1) Indirect Bili ross result due to some par ameters are outside rep ortable range [facility] Hnrttst9699-33-54 20:32:16 Test Item Value Reference Range Interpretation Comments Total Protein (test code = 2885-2) 7.1 g/dL 6.4-8.3 [facility] Gawssvr6814-42-85 20:32:16 Test Item Value Reference Range Interpretation Comments Total Protein (test code = 2885-2) 7.1 g/dL 6.4-8.3 [facility] Kkvvuar4608-35-21 20:32:16 Test Item Value Reference Range Interpretation Comments Total Protein (test code = 2885-2) 7.1 g/dL 6.4-8.3 [facility] Ndyjict5385-42-38 20:32:16 Test Item Value Reference Range Interpretation Comments Total Protein (test code = 2885-2) 7.1 g/dL 6.4-8.3 [facility] Vatwdha0487-64-55 20:32:16 Test Item Value Reference Range Interpretation Comments Total Protein (test code = 2885-2) 7.1 g/dL 6.4-8.3 [facility] Llblqry1070-50-58 20:32:16 Test Item Value Reference Range Interpretation Comments Total Protein (test code = 2885-2) 7.1 g/dL 6.4-8.3 [facility] Apammxwxxth7933-18-28 20:32:14 Test Item Value Reference Range Interpretation Comments Alk Phos (test code = 6768-6) 90 U/L 40-129 [facility] Frhbxgijxkq2129-12-15 20:32:14 Test Item Value Reference Range Interpretation Comments Alk Phos (test code = 6768-6) 90 U/L 40-129 [facility] Mloifcfpiew7843-94-77 20:32:14 Test Item Value Reference Range Interpretation Comments Alk Phos (test code = 6768-6) 90 U/L 40-129 [facility] Rfadsukukil4482-28-45 20:32:14 Test Item Value Reference Range Interpretation Comments Alk Phos (test code = 6768-6) 90 U/L 40-129 [facility] Phyyfndstlc7662-20-53 20:32:14 Test Item Value Reference Range Interpretation Comments Alk Phos (test code = 6768-6) 90 U/L 40-129 [facility] Jutpzqutgun4875-75-79 20:32:14 Test Item Value Reference Range Interpretation Comments Alk Phos (test code = 6768-6) 90 [facility]/L 40-129 [facility] Test Item Value Reference Range Interpretation Comments ALT (test code = 13 U/L See_Comment [Automated message] The 1741-08) system which ge nerated this result transmit esteban reference range : <=41. The reference range was not used to interpr et this result as cuate l/abnormal. [place] 24531022-03-11 20:32:12 Test Item Value Reference Range Interpretation Comments ALT (test code = 13 U/L See_Comment [Automated message] The 1741-08) system which ge nerated this result transmit esteban reference range : <=41. The reference range was not used to interpr et this result as cuate l/abnormal. [place] 24531022-03-11 20:32:12 Test Item Value Reference Range Interpretation Comments ALT (test code = 13 U/L See_Comment [Automated message] The 1741-08) system which ge nerated this result transmit esteban reference range : <=41. The reference range was not used to interpr et this result as cuate l/abnormal. [place] 24531022-03-11 20:32:12 Test Item Value Reference Range Interpretation Comments ALT (test code = 13 U/L See_Comment [Automated message] The 1741-08) system which ge nerated this result transmit esteban reference range : <=41. The reference range was not used to interpr et this result as cuate l/abnormal. [place] 24531022-03-11 20:32:12 Test Item Value Reference Range Interpretation Comments ALT (test code = 13 U/L See_Comment [Automated message] The 1741-08) system which ge nerated this result transmit esteban reference range : <=41. The reference range was not used to interpr et this result as cuate l/abnormal. [facility] 20:32:12 Test Item Value Reference Range Interpretation Comments ALT (test code = 13 U/L See_Comment [Automated message] The 1741-08) system which ge nerated this result transmit esteban reference range : <=41. The reference range was not used to interpr et this result as cuate l/abnormal. [facility] Yioov7572-73-82 20:32:07 Test Item Value Reference Range Interpretation Comments Albumin Lvl (test code 4.1 See_Comment [Aut omated message] The = 2769) system which ge nerated this result tra nsmitted reference range : 3.5 - 5.2 gm/dL. The refe rence range was not used to interpret this result as normal/abnormal . [facility] Ynfrz3021-32-38 20:32:07 Test Item Value Reference Range Interpretation Comments Albumin Lvl (test code 4.1 See_Comment [Aut omated message] The = 0215) system which ge nerated this result tra nsmitted reference range : 3.5 - 5.2 gm/dL. The refe rence range was not used to interpret this result as normal/abnormal . [facility] Rqsdm1352-47-43 20:32:07 Test Item Value Reference Range Interpretation Comments Albumin Lvl (test code 4.1 See_Comment [Aut omated message] The = 2268) system which ge nerated this result tra nsmitted reference range : 3.5 - 5.2 gm/dL. The refe rence range was not used to interpret this result as normal/abnormal . [facility] Vqzrg8342-67-87 20:32:07 Test Item Value Reference Range Interpretation Comments Albumin Lvl (test code 4.1 See_Comment [Aut omated message] The = 7673) system which ge nerated this result tra nsmitted reference range : 3.5 - 5.2 gm/dL. The refe rence range was not used to interpret this result as normal/abnormal . [facility] Lvnaf7899-99-48 20:32:07 Test Item Value Reference Range Interpretation Comments Albumin Lvl (test code 4.1 See_Comment [Aut omated message] The = 6821) system which ge nerated this result tra nsmitted reference range : 3.5 - 5.2 gm/dL. The refe rence range was not used to interpret this result as normal/abnormal . [facility] Xllxo5110-33-53 20:32:07 Test Item Value Reference Range Interpretation Comments Albumin Lvl (test code 4.1 See_Comment [Aut omated message] The = 4566) system which ge nerated this result tra nsmitted reference range : 3.5 - 5.2 gm/dL. The refe rence range was not used to interpret this result as normal/abnormal . [facility] Amin[facility] 2021-05-22 20:32:06 Test Item Value Reference Range Interpretation Comments AST (test code = 19 U/L See_Comment [Automated message] The 1919-10) system which ge nerated this result transmit esteban reference range : <=40. The reference range was not used to interpr et this result as cuate l/abnormal. [facility] 2021-05-22 20:32:06 Test Item Value Reference Range Interpretation Comments AST (test code = 19 U/L See_Comment [Automated message] The 1919-10) system which ge nerated this result transmit esteban reference range : <=40. The reference range was not used to interpr et this result as cuate l/abnormal. [facility] 2021-05-22 20:32:06 Test Item Value Reference Range Interpretation Comments AST (test code = 19 U/L See_Comment [Automated message] The 1919-10) system which ge nerated this result transmit esteban reference range : <=40. The reference range was not used to interpr et this result as cuate l/abnormal. [facility] 2021-05-22 20:32:06 Test Item Value Reference Range Interpretation Comments AST (test code = 19 U/L See_Comment [Automated message] The 1919-10) system which ge nerated this result transmit esteban reference range : <=40. The reference range was not used to interpr et this result as cuate l/abnormal. [facility] 2021-05-22 20:32:06 Test Item Value Reference Range Interpretation Comments AST (test code = 19 U/L See_Comment [Automated message] The 1919-10) system which ge nerated this result transmit esteban reference range : <=40. The reference range was not used to interpr et this result as cuate l/abnormal. [facility] 2021-05-22 20:32:06 Test Item Value Reference Range Interpretation Comments AST (test code = 19 U/L See_Comment [Automated message] The 1919-10) system which ge nerated this result transmit esteban reference range : <=40. The reference range was not used to interpr et this result as cuate l/abnormal. [facility] 20:05:31 Test Item Value Reference Range Interpretation Comments Neutrophil % (test code = 77.0 % 42.0-66.0 H 770-8) Lymphocyte % (test code = 11.6 % 24.0-44.0 L 736-9) Monocyte % (test code = 9.2 % 2.0-7.0 H 5905-5) Eosinophil % (test code = 1.2 % 1.0-4.0 713-8) Basophil % (test code = 0.6 % 0.0-1.0 05775-9) IGRE % (test code = 0.4 % 0.0-0.4 IGRE % c ount 65942-8) includes Metamyelocytes, Myelocytes, and Promyelocytes. Neutrophil Abs (test code 5.16 K/uL 1.70-7.30 = 751-8) Lymphocyte Abs (test code 0.78 K/uL 1.00-4.80 L = 731-0) Monocyte Abs (test code = 0.62 K/uL 0.08-0.70 742-7) Eosinophil Abs (test code 0.08 K/uL 0.04-0.40 = 711-2) Basophil Abs (test code = 0.04 K/uL 0.00-0.10 704-7) IG Abs (test code = 0.03 K/uL 0.00-0.04 09567-3) Lab Interpretation (test Abnormal code = 10535-2) [facility] 20:05:31 Test Item Value Reference Range Interpretation Comments Neutrophil % (test code = 77.0 % 42.0-66.0 H 770-8) Lymphocyte % (test code = 11.6 % 24.0-44.0 L 736-9) Monocyte % (test code = 9.2 % 2.0-7.0 H 5905-5) Eosinophil % (test code = 1.2 % 1.0-4.0 713-8) Basophil % (test code = 0.6 % 0.0-1.0 88396-3) IGRE % (test code = 0.4 % 0.0-0.4 IGRE % c ount 33304-6) includes Metamyelocytes, Myelocytes, and Promyelocytes. Neutrophil Abs (test code 5.16 K/uL 1.70-7.30 = 751-8) Lymphocyte Abs (test code 0.78 K/uL 1.00-4.80 L = 731-0) Monocyte Abs (test code = 0.62 K/uL 0.08-0.70 742-7) Eosinophil Abs (test code 0.08 K/uL 0.04-0.40 = 711-2) Basophil Abs (test code = 0.04 K/uL 0.00-0.10 704-7) IG Abs (test code = 0.03 K/uL 0.00-0.04 06568-2) Lab Interpretation (test Abnormal code = 30453-7) [facility] 20:05:31 Test Item Value Reference Range Interpretation Comments Neutrophil % (test code = 77.0 % 42.0-66.0 H 770-8) Lymphocyte % (test code = 11.6 % 24.0-44.0 L 736-9) Monocyte % (test code = 9.2 % 2.0-7.0 H 5905-5) Eosinophil % (test code = 1.2 % 1.0-4.0 713-8) Basophil % (test code = 0.6 % 0.0-1.0 70018-5) IGRE % (test code = 0.4 % 0.0-0.4 IGRE % c ount 27769-7) includes Metamyelocytes, Myelocytes, and Promyelocytes. Neutrophil Abs (test code 5.16 K/uL 1.70-7.30 = 751-8) Lymphocyte Abs (test code 0.78 K/uL 1.00-4.80 L = 731-0) Monocyte Abs (test code = 0.62 K/uL 0.08-0.70 742-7) Eosinophil Abs (test code 0.08 K/uL 0.04-0.40 = 711-2) Basophil Abs (test code = 0.04 K/uL 0.00-0.10 704-7) IG Abs (test code = 0.03 K/uL 0.00-0.04 81075-1) Lab Interpretation (test Abnormal code = 58233-6) [facility] BetxnuZgqxkprjbazu3028-60-37 20:05:31 Test Item Value Reference Range Interpretation Comments Neutrophil % (test code = 77.0 % 42.0-66.0 H 770-8) Lymphocyte % (test code = 11.6 % 24.0-44.0 L 736-9) Monocyte % (test code = 9.2 % 2.0-7.0 H 5905-5) Eosinophil % (test code = 1.2 % 1.0-4.0 713-8) Basophil % (test code = 0.6 % 0.0-1.0 53582-8) IGRE % (test code = 0.4 % 0.0-0.4 IGRE % c ount 57858-6) includes Metamyelocytes, Myelocytes, and Promyelocytes. Neutrophil Abs (test code 5.16 K/uL 1.70-7.30 = 751-8) Lymphocyte Abs (test code 0.78 K/uL 1.00-4.80 L = 731-0) Monocyte Abs (test code = 0.62 K/uL 0.08-0.70 742-7) Eosinophil Abs (test code 0.08 K/uL 0.04-0.40 = 711-2) Basophil Abs (test code = 0.04 K/uL 0.00-0.10 704-7) IG Abs (test code = 0.03 K/uL 0.00-0.04 46600-6) Lab Interpretation (test Abnormal code = 69601-3) [facility] 20:05:31 Test Item Value Reference Range Interpretation Comments Neutrophil % (test code = 77.0 % 42.0-66.0 H 770-8) Lymphocyte % (test code = 11.6 % 24.0-44.0 L 736-9) Monocyte % (test code = 9.2 % 2.0-7.0 H 5905-5) Eosinophil % (test code = 1.2 % 1.0-4.0 713-8) Basophil % (test code = 0.6 % 0.0-1.0 04862-6) IGRE % (test code = 0.4 % 0.0-0.4 IGRE % c ount 58271-1) includes Metamyelocytes, Myelocytes, and Promyelocytes. Neutrophil Abs (test code 5.16 K/uL 1.70-7.30 = 751-8) Lymphocyte Abs (test code 0.78 K/uL 1.00-4.80 L = 731-0) Monocyte Abs (test code = 0.62 K/uL 0.08-0.70 742-7) Eosinophil Abs (test code 0.08 K/uL 0.04-0.40 = 711-2) Basophil Abs (test code = 0.04 K/uL 0.00-0.10 704-7) IG Abs (test code = 0.03 K/uL 0.00-0.04 20472-2) Lab Interpretation (test Abnormal code = 82866-0) [facility] 20:05:31 Test Item Value Reference Range Interpretation Comments Neutrophil % (test code = 77.0 % 42.0-66.0 H 770-8) Lymphocyte % (test code = 11.6 % 24.0-44.0 L 736-9) Monocyte % (test code = 9.2 % 2.0-7.0 H 5905-5) Eosinophil % (test code = 1.2 % 1.0-4.0 713-8) Basophil % (test code = 0.6 % 0.0-1.0 80842-1) IGRE % (test code = 0.4 % 0.0-0.4 IGRE % c ount 08367-3) includes Metamyelocytes, Myelocytes, and Promyelocytes. Neutrophil Abs (test code 5.16 K/uL 1.70-7.30 = 751-8) Lymphocyte Abs (test code 0.78 K/uL 1.00-4.80 L = 731-0) Monocyte Abs (test code = 0.62 K/uL 0.08-0.70 742-7) Eosinophil Abs (test code 0.08 K/uL 0.04-0.40 = 711-2) Basophil Abs (test code = 0.04 K/uL 0.00-0.10 704-7) IG Abs (test code = 0.03 K/uL 0.00-0.04 32444-2) Lab Interpretation (test Abnormal code = 61022-5) [facility] [place].EXE0754-01-06 20:05:16 Test Item Value Reference Range Interpretation Comments WBC (test code = 6.7 K/uL 4.0-11.0 6690-2) RBC (test code = 789-8) 4.57 See_Comment [Au tomated message] The system Alea generated this result transmitted ref erence range: 4.50 - 6 .00 M/uL. The refer ence range was not u sed to interpret this result as normal/abnor mal. Hgb (test code = 718-7) 13.5 See_Comment L [Au tomated message] The system Alea generated this result transmitted ref erence range: 14.0 - 1 8.0 gm/dL. The refe rence range was not u sed to interpret this result as normal/abnor mal. Hct (test code = 42.7 % 40.0-54.0 4544-3) MCV (test code = 787-2) 93 fL 82-98 MCH (test code = 785-6) 29.5 pg 27.0-31.0 MCHC (test code = 31.6 See_Comment [Automate d message] 786-4) The system Alea generated this result transmitted ref erence range: 31.0 - 3 6.0 gm/dL. The refe rence range was not u sed to interpret this result as normal/abnor mal. RDW-SD (test code = 49.6 fL 35.1-46.3 H 24638-4) RDW-CV (test code = 14.6 % 12.0-15.5 788-0) Platelet count (test 172 K/uL 140-440 code = 777-3) MPV (test code = 11.1 fL 4.0-10.4 H 27120-6) INRBC (test code = 0.0 % See_Comment The INRBC (instrument 96593-5) NRBC) value ref lects the enumeration of nucleated red b lood cells contained in a 200uL sampleof whole blood analyzed by the instrument. Thi s value maydiffer from the NRBC value repo rted in a manual differential,wh ich is based on a 100 cell differential. [Automated mess age] The system Alea generated this result transmitted ref erence range: <=0.0. T he reference range was not used to int erpret this result as normal/abnormal . Lab Interpretation Abnormal (test code = 37344-1) [facility] [place].EUE8555-35-76 20:05:16 Test Item Value Reference Range Interpretation Comments WBC (test code = 6.7 K/uL 4.0-11.0 6690-2) RBC (test code = 789-8) 4.57 See_Comment [Au tomated message] The system Alea generated this result transmitted ref erence range: 4.50 - 6 .00 M/uL. The refer ence range was not u sed to interpret this result as normal/abnor mal. Hgb (test code = 718-7) 13.5 See_Comment L [Au tomated message] The system Alea generated this result transmitted ref erence range: 14.0 - 1 8.0 gm/dL. The refe rence range was not u sed to interpret this result as normal/abnor mal. Hct (test code = 42.7 % 40.0-54.0 4544-3) MCV (test code = 787-2) 93 fL 82-98 MCH (test code = 785-6) 29.5 pg 27.0-31.0 MCHC (test code = 31.6 See_Comment [Automate d message] 786-4) The system Alea generated this result transmitted ref erence range: 31.0 - 3 6.0 gm/dL. The refe rence range was not u sed to interpret this result as normal/abnor mal. RDW-SD (test code = 49.6 fL 35.1-46.3 H 97839-4) RDW-CV (test code = 14.6 % 12.0-15.5 788-0) Platelet count (test 172 K/uL 140-440 code = 777-3) MPV (test code = 11.1 fL 4.0-10.4 H 50876-9) INRBC (test code = 0.0 % See_Comment The INRBC (instrument 75202-1) NRBC) value ref lects the enumeration of nucleated red b lood cells contained in a 200uL sampleof whole blood analyzed by the instrument. Thi s value maydiffer from the NRBC value repo rted in a manual differential,wh ich is based on a 100 cell differential. [Automated mess age] The system Alea generated this result transmitted ref erence range: <=0.0. T he reference range was not used to int erpret this result as normal/abnormal . Lab Interpretation Abnormal (test code = 10543-5) [facility] [place].URZ5051-35-43 20:05:16 Test Item Value Reference Range Interpretation Comments WBC (test code = 6.7 K/uL 4.0-11.0 6690-2) RBC (test code = 789-8) 4.57 See_Comment [Au tomated message] The system Alea generated this result transmitted ref erence range: 4.50 - 6 .00 M/uL. The refer ence range was not u sed to interpret this result as normal/abnor mal. Hgb (test code = 718-7) 13.5 See_Comment L [Au tomated message] The system Alea generated this result transmitted ref erence range: 14.0 - 1 8.0 gm/dL. The refe rence range was not u sed to interpret this result as normal/abnor mal. Hct (test code = 42.7 % 40.0-54.0 4544-3) MCV (test code = 787-2) 93 fL 82-98 MCH (test code = 785-6) 29.5 pg 27.0-31.0 MCHC (test code = 31.6 See_Comment [Automate d message] 786-4) The system Alea generated this result transmitted ref erence range: 31.0 - 3 6.0 gm/dL. The refe rence range was not u sed to interpret this result as normal/abnor mal. RDW-SD (test code = 49.6 fL 35.1-46.3 H 05830-6) RDW-CV (test code = 14.6 % 12.0-15.5 788-0) Platelet count (test 172 K/uL 140-440 code = 777-3) MPV (test code = 11.1 fL 4.0-10.4 H 71683-4) INRBC (test code = 0.0 % See_Comment The INRBC (instrument 82859-7) NRBC) value ref lects the enumeration of nucleated red b lood cells contained in a 200uL sampleof whole blood analyzed by the instrument. Thi s value maydiffer from the NRBC value repo rted in a manual differential,wh ich is based on a 100 cell differential. [Automated mess age] The system Alea generated this result transmitted ref erence range: <=0.0. T he reference range was not used to int erpret this result as normal/abnormal . Lab Interpretation Abnormal (test code = 86438-1) [facility] [place].[id number] 20:05:16 Test Item Value Reference Range Interpretation Comments WBC (test code = 6.7 K/uL 4.0-11.0 6690-2) RBC (test code = 789-8) 4.57 See_Comment [Au tomated message] The system Alea generated this result transmitted ref erence range: 4.50 - 6 .00 M/uL. The refer ence range was not u sed to interpret this result as normal/abnor mal. Hgb (test code = 718-7) 13.5 See_Comment L [Au tomated message] The system Alea generated this result transmitted ref erence range: 14.0 - 1 8.0 gm/dL. The refe rence range was not u sed to interpret this result as normal/abnor mal. Hct (test code = 42.7 % 40.0-54.0 4544-3) MCV (test code = 787-2) 93 fL 82-98 MCH (test code = 785-6) 29.5 pg 27.0-31.0 MCHC (test code = 31.6 See_Comment [Automate d message] 786-4) The system Alea generated this result transmitted ref erence range: 31.0 - 3 6.0 gm/dL. The refe rence range was not u sed to interpret this result as normal/abnor mal. RDW-SD (test code = 49.6 fL 35.1-46.3 H 49644-2) RDW-CV (test code = 14.6 % 12.0-15.5 788-0) Platelet count (test 172 K/uL 140-440 code = 777-3) MPV (test code = 11.1 fL 4.0-10.4 H 20151-8) INRBC (test code = 0.0 % See_Comment The INRBC (instrument 77406-4) NRBC) value ref lects the enumeration of nucleated red b lood cells contained in a 200uL sampleof whole blood analyzed by the instrument. Thi s value maydiffer from the NRBC value repo rted in a manual differential,wh ich is based on a 100 cell differential. [Automated mess age] The system Alea generated this result transmitted ref erence range: <=0.0. T he reference range was not used to int erpret this result as normal/abnormal . Lab Interpretation Abnormal (test code = 93484-6) [facility] [place].[id number] 20:05:16 Test Item Value Reference Range Interpretation Comments WBC (test code = 6.7 K/uL 4.0-11.0 6690-2) RBC (test code = 789-8) 4.57 See_Comment [Au tomated message] The system Alea generated this result transmitted ref erence range: 4.50 - 6 .00 M/uL. The refer ence range was not u sed to interpret this result as normal/abnor mal. Hgb (test code = 718-7) 13.5 See_Comment L [Au tomated message] The system Alea generated this result transmitted ref erence range: 14.0 - 1 8.0 gm/dL. The refe rence range was not u sed to interpret this result as normal/abnor mal. Hct (test code = 42.7 % 40.0-54.0 4544-3) MCV (test code = 787-2) 93 fL 82-98 MCH (test code = 785-6) 29.5 pg 27.0-31.0 MCHC (test code = 31.6 See_Comment [Automate d message] 786-4) The system Alea generated this result transmitted ref erence range: 31.0 - 3 6.0 gm/dL. The refe rence range was not u sed to interpret this result as normal/abnor mal. RDW-SD (test code = 49.6 fL 35.1-46.3 H 68300-9) RDW-CV (test code = 14.6 % 12.0-15.5 788-0) Platelet count (test 172 K/uL 140-440 code = 777-3) MPV (test code = 11.1 fL 4.0-10.4 H 84923-1) INRBC (test code = 0.0 % See_Comment The INRBC (instrument 03688-5) NRBC) value ref lects the enumeration of nucleated red b lood cells contained in a 200uL sampleof whole blood analyzed by the instrument. Thi s value maydiffer from the NRBC value repo rted in a manual differential,wh ich is based on a 100 cell differential. [Automated mess age] The system Alea generated this result transmitted ref erence range: <=0.0. T he reference range was not used to int erpret this result as normal/abnormal . Lab Interpretation Abnormal (test code = 20500-3) [facility] [place].[id number] 20:05:16 Test Item Value Reference Range Interpretation Comments WBC (test code = 6.7 K/uL 4.0-11.0 6690-2) RBC (test code = 789-8) 4.57 See_Comment [Au tomated message] The system Alea generated this result transmitted ref erence range: 4.50 - 6 .00 M/uL. The refer ence range was not u sed to interpret this result as normal/abnor mal. Hgb (test code = 718-7) 13.5 See_Comment L [Au tomated message] The system Blottr generated this result transmitted ref erence range: 14.0 - 1 8.0 gm/dL. The refe rence range was not u sed to interpret this result as normal/abnor mal. Hct (test code = 42.7 % 40.0-54.0 4544-3) MCV (test code = 787-2) 93 fL 82-98 MCH (test code = 785-6) 29.5 pg 27.0-31.0 MCHC (test code = 31.6 See_Comment [Automate d message] 786-4) The system Alea generated this result transmitted ref erence range: 31.0 - 3 6.0 gm/dL. The refe rence range was not u sed to interpret this result as normal/abnor mal. RDW-SD (test code = 49.6 fL 35.1-46.3 H 31308-5) RDW-CV (test code = 14.6 % 12.0-15.5 788-0) Platelet count (test 172 K/uL 140-440 code = 777-3) MPV (test code = 11.1 fL 4.0-10.4 H 08418-1) INRBC (test code = 0.0 % See_Comment The INRBC (instrument 84717-2) NRBC) value ref lects the enumeration of nucleated red b lood cells contained in a 200uL sampleof whole blood analyzed by the instrument. Thi s value maydiffer from the NRBC value repo rted in a manual differential,wh ich is based on a 100 cell differential. [Automated mess age] The system Alea generated this result transmitted ref erence range: <=0.0. T he reference range was not used to int erpret this result as normal/abnormal . Lab Interpretation Abnormal (test code = 47285-5) [facility] Troponin [id number] 20:01:26 Test Item Value Reference Range Interpretation Comments POC CTNI (test code 0.17 ng/mL 0.00-0.08 H This cTn I test is = 10821-0) performed by e Mtzev-ys-Whou analyzer method ,and the result may be [...] immunosorbent a ssay (SNEHA) method. Antibodies spec [facility] [...] MDA Main Main Ca mpus code = 96027) [facility] n[facility] Lab, [address] [place] [address]; Catheter Finisher And Inspector: Nancie Stafford MD Lab Interpretation Abnormal (test code = 28559-3) [facility] Troponin [id number] 20:01:26 Test Item Value Reference Range Interpretation Comments POC CTNI (test code 0.17 ng/mL 0.00-0.08 H This cTn I test is = 32283-9) performed by e Svphd-fe-Lcpe analyzer method ,and the result may be [...] MDA Main Main Ca mpus code = 17873) [facility], [address] [place] [address]; Catheter Finisher And Inspector: Nancie Stafford MD Lab Interpretation Abnormal (test code = 24414-7) [facility] Troponin [id number] 20:01:26 Test Item Value Reference Range Interpretation Comments POC CTNI (test code 0.17 ng/mL 0.00-0.08 H This cTn I test is = 88840-6) performed by e Tprlh-dg-Gcsr analyzer method ,and the result may be different from the Clinical LaboratoryMetho d. Abnormal test r esults are recommended for confirmatorytes t by Clinical labora tory method. Patient s with normal testresu lts but clinically suspicious for acute myocardial infarctionshoul d be tested by [facility] meth od. Method descript ion: [...] the concentration o f cTnI within the [facility] le. POC Clean Dev (test Yes code = 6672) Performing Lab (test [facility] Main Ca mpus code = 26884) [facility], [address] [facility] [place] [address]; Catheter Finisher And Inspector: Nancie Stafford MD Lab Interpretation Abnormal (test code = 54099-9) [facility] Troponin [id number] 20:01:26 Test Item Value Reference Range Interpretation Comments POC CTNI (test code 0.17 ng/mL 0.00-0.08 H This cTn I test is = 36151-9) performed by e Tjhty-wv-Lcci analyzer method ,and the result may be [...] immunosorbent a ssay (SNEHA) method. Antibodies spec [facility] trop[facility] I [...] the concentration o f cTnI within the [facility] le. POC Clean Dev (test Yes code = 6672) Performing Lab (test [facility] Main Ca mpus code = 81334) [facility] nical Lab, [address] [address]; Catheter Finisher And Inspector: Nancie Stafford MD Lab Interpretation Abnormal (test code = 75389-6) [facility] Troponin [id number] 20:01:26 Test Item Value Reference Range Interpretation Comments POC CTNI (test code 0.17 ng/mL 0.00-0.08 H This cTn I test is = 31348-7) performed by e Axgzv-im-Sbhh analyzer method ,and the result may be [...] immunosorbent a ssay (SNEHA) method. Antibodies spec ific for human cardi ac troponin I (cTn [...] MDA Main Main Ca mpus code = 74604) [facility], [address] [place] [address]; Catheter Finisher And Inspector: Nancie Stafford MD Lab Interpretation Abnormal (test code = 03154-4) [facility] Troponin [id number] 20:01:26 Test Item Value Reference Range Interpretation Comments POC CTNI (test code 0.17 ng/mL 0.00-0.08 H This cTn I test is = 25398-5) performed by e Ewlgs-nr-Ntdg analyzer method ,and the result may be [...] immunosorbent a ssay (SNEHA) method. Antibodies spec ific for human cardi ac troponin I (cTn [...] MDA Main Main Ca mpus code = 67601) [facility], [address] [facility], [place] [address]; Catheter Finisher And Inspector: Nancie Stafford MD Lab Interpretation Abnormal (test code = 18948-0) [facility] 2020-06-30 00:00:00 Test Item Value Reference Range Interpretation Comments GLUCOSE (test code = 2217) 95 MG/DL BUN (test code = 2208) 24 MG/DL CREATININE (test code = 2214) 0.83 MG/DL eGFR AMER. (test code 98 ML/MIN/1.73 = 33364) eGFR NON- AMER. (test 84 ML/MIN/1.73 code = 54385) CALC BUN/CREAT (test code = 29 RATIO [...] CALC GLOBULIN (test code = 2.5 G/DL 0) CALC A/G RATIO (test code = 1.8 RATIO 2234) BILIRUBIN, TOTAL (test code = 0.3 MG/DL 2206) ALKALINE PHOSPHATASE (test 81 U/L code = 2204) AST (test code = 2218) 29 U/L ALT (test code = 2219) 22 U/L COMPREHENSIVE METABOLIC [id number] 00:00:00 Test Item Value Reference Range Interpretation Comments GLUCOSE (test code = 2217) 95 MG/DL BUN (test code = 2208) 24 MG/DL CREATININE (test code = 2214) 0.83 MG/DL eGFR AMER. (test code 98 ML/MIN/1.73 = 18907) eGFR NON- AMER. (test 84 ML/MIN/1.73 code = 98604) CALC BUN/CREAT (test code = 29 RATIO [...] (test code = 2219) 22 U/L LIPID [id number] 00:00:00 Test Item Value Reference Range Interpretation Comments CHOLESTEROL (test code = 2210) 186 MG/DL TRIGLYCERIDES (test code = 2232) 102 MG/DL HDL CHOLESTEROL (test code = 2220) 64 MG/DL CALC LDL CHOL (test code = 2237) 102 MG/DL RISK RATIO LDL/HDL (test code = 1.59 RATIO 2238) LIPID [id number] 00:00:00 Test Item Value Reference Range Interpretation Comments CHOLESTEROL (test code = 2210) 186 MG/DL TRIGLYCERIDES (test code = 2232) 102 MG/DL HDL CHOLESTEROL (test code = 2220) 64 MG/DL CALC LDL CHOL (test code = 2237) 102 MG/DL RISK RATIO LDL/HDL (test code = 1.59 RATIO 2238) COMPREHENSIVE METABOLIC [id number] 00:00:00 Test Item Value Reference Range Interpretation Comments GLUCOSE (test code = 2217) 95 MG/DL BUN (test code = 2208) 24 MG/DL CREATININE (test code = 2214) 0.83 MG/DL eGFR AMER. (test code 98 ML/MIN/1.73 = 32702) eGFR NON- AMER. (test 84 ML/MIN/1.73 code = 79843) CALC BUN/CREAT (test code = 29 RATIO [...] code = 2219) 22 U/L COMPREHENSIVE METABOLIC [id number] 00:00:00 Test Item Value Reference Range Interpretation Comments GLUCOSE (test code = 2217) 95 MG/DL BUN (test code = 2208) 24 MG/DL CREATININE (test code = 2214) 0.83 MG/DL eGFR AMER. (test code 98 ML/MIN/1.73 = 51969) eGFR NON- AMER. (test 84 ML/MIN/1.73 code = 44026) CALC BUN/CREAT (test code = 29 RATIO [...] BILIRUBIN, TOTAL (test code = 0.3 MG/DL 7) ALKALINE PHOSPHATASE (test 81 U/L code = 2204) AST (test code = 2218) 29 U/L ALT (test code = 2219) 22 U/L LIPID [id number] 00:00:00 Test Item Value Reference Range Interpretation Comments CHOLESTEROL (test code = 2210) 186 MG/DL TRIGLYCERIDES (test code = 2232) 102 MG/DL HDL CHOLESTEROL (test code = 2220) 64 MG/DL CALC LDL CHOL (test code = 2237) 102 MG/DL RISK RATIO LDL/HDL (test code = 1.59 RATIO 2238) LIPID [id number] 00:00:00 Test Item Value Reference Range Interpretation Comments CHOLESTEROL (test code = 2210) 186 MG/DL TRIGLYCERIDES (test code = 2232) 102 MG/DL HDL CHOLESTEROL (test code = 2220) 64 MG/DL CALC LDL CHOL (test code = 2237) 102 MG/DL RISK RATIO LDL/HDL (test code = 1.59 RATIO 2238) CBC W/AUTO [id number] 00:00:00 Test Item Value Reference Range Interpretation [...] code = 1015) 214 K/UL CBC W/AUTO [id number] 00:00:00 Test Item Value Reference Range Interpretation [...] code = 1015) 214 K/UL CBC W/AUTO [id number] 00:00:00 Test Item Value Reference Range Interpretation [...] code = 1015) 214 K/UL CBC W/AUTO [id number] 00:00:00 Test Item Value Reference Range Interpretation [...] code = 1015) 214 K/UL CBC W/AUTO [id number] 00:00:00 Test Item Value Reference Range Interpretation [...] code = 1015) 214 K/UL CBC W/AUTO [id number] 00:00:00 Test Item Value Reference Range Interpretation [...] (test code = 1015) 214 K/UL HEMOGLOBIN [id number] 00:00:00 Test Item Value Reference Range Interpretation Comments HEMOGLOBIN A1c (test code = 64825) 5.5 % HEMOGLOBIN [id number] 00:00:00 Test Item Value Reference Range Interpretation Comments HEMOGLOBIN A1c (test code = 62645) 5.5 % HEMOGLOBIN [id number] 00:00:00 Test Item Value Reference Range Interpretation Comments HEMOGLOBIN A1c (test code = 04635) 5.5 % CBC W/AUTO [id number] 00:00:00 Test Item Value Reference Range Interpretation [...] code = 1015) 172 K/UL CBC W/AUTO [id number] 00:00:00 Test Item Value Reference Range Interpretation [...] code = 1015) 172 K/UL CBC W/AUTO [id number] 00:00:00 Test Item Value Reference Range Interpretation [...] code = 1015) 172 K/UL COMPREHENSIVE METABOLIC [id number] 00:00:00 Test Item Value Reference Range Interpretation Comments GLUCOSE (test code = 2217) 98 MG/DL BUN (test code = 2208) 15 MG/DL CREATININE (test code = 2214) 0.86 MG/DL eGFR AMER. (test code 96 ML/MIN/1.73 = 69323) eGFR NON- AMER. (test 83 ML/MIN/1.73 code = 99799) CALC BUN/CREAT (test code = 17 RATIO [...] code = 2219) 17 U/L COMPREHENSIVE METABOLIC [id number] 00:00:00 Test Item Value Reference Range Interpretation Comments GLUCOSE (test code = 2217) 98 MG/DL BUN (test code = 2208) 15 MG/DL CREATININE (test code = 2214) 0.86 MG/DL eGFR AMER. (test code 96 ML/MIN/1.73 = 28473) eGFR NON- AMER. (test 83 ML/MIN/1.73 code = 80505) CALC BUN/CREAT (test code = 17 RATIO [...] (test code = 2219) 17 U/L LIPID [id number] 00:00:00 Test Item Value Reference Range Interpretation Comments CHOLESTEROL (test code = 2210) 147 MG/DL TRIGLYCERIDES (test code = 2232) 82 MG/DL HDL CHOLESTEROL (test code = 2220) 58 MG/DL CALC LDL CHOL (test code = 2237) 73 MG/DL RISK RATIO LDL/HDL (test code = 1.26 RATIO 2238) LIPID [id number] 00:00:00 Test Item Value Reference Range Interpretation Comments CHOLESTEROL (test code = 2210) 147 MG/DL TRIGLYCERIDES (test code = 2232) 82 MG/DL HDL CHOLESTEROL (test code = 2220) 58 MG/DL CALC LDL CHOL (test code = 2237) 73 MG/DL RISK RATIO LDL/HDL (test code = 1.26 RATIO 2238) PSA, [id number] 00:00:00 Test Item Value Reference Range Interpretation Comments PSA, TOTAL (test code = 2606) 16.70 NG/ML PSA, [id number] 00:00:00 Test Item Value Reference Range Interpretation Comments PSA, TOTAL (test code = 2606) 16.70 NG/ML PSA, [id number] 00:00:00 Test Item Value Reference Range Interpretation Comments PSA, TOTAL (test code = 2606) 16.70 NG/ML HEMOGLOBIN [id number] 00:00:00 Test Item Value Reference Range Interpretation Comments HEMOGLOBIN A1c (test code = 02261) 5.5 % HEMOGLOBIN [id number] 00:00:00 Test Item Value Reference Range Interpretation Comments HEMOGLOBIN A1c (test code = 64460) 5.5 % HEMOGLOBIN [id number] 00:00:00 Test Item Value Reference Range Interpretation Comments HEMOGLOBIN A1c (test code = 62703) 5.5 % CBC W/AUTO [id number] 00:00:00 Test Item Value Reference Range Interpretation [...] code = 1015) 172 K/UL CBC W/AUTO [id number] 00:00:00 Test Item Value Reference Range Interpretation [...] code = 1015) 172 K/UL CBC W/AUTO [id number] 00:00:00 Test Item Value Reference Range Interpretation [...] code = 1015) 172 K/UL COMPREHENSIVE METABOLIC [id number] 00:00:00 Test Item Value Reference Range Interpretation Comments GLUCOSE (test code = 2217) 98 MG/DL BUN (test code = 2208) 15 MG/DL CREATININE (test code = 2214) 0.86 MG/DL eGFR AMER. (test code 96 ML/MIN/1.73 = 80346) eGFR NON- AMER. (test 83 ML/MIN/1.73 code = 24730) CALC BUN/CREAT (test code = 17 RATIO [...] code = 2219) 17 U/L COMPREHENSIVE METABOLIC [id number] 00:00:00 Test Item Value Reference Range Interpretation Comments GLUCOSE (test code = 2217) 98 MG/DL BUN (test code = 2208) 15 MG/DL CREATININE (test code = 2214) 0.86 MG/DL eGFR AMER. (test code 96 ML/MIN/1.73 = 55489) eGFR NON- AMER. (test 83 ML/MIN/1.73 code = 08928) CALC BUN/CREAT (test code = 17 RATIO 2235) SODIUM (test code = 2231) 141 MEQ/L POTASSIUM (test code = 2228) 4.7 MEQ/L CHLORIDE (test code = 2215) 105 MEQ/L CARBON DIOXIDE (test code = 27 MEQ/L 2205) CALCIUM (test code = 2209) 9.4 MG/DL PROTEIN, TOTAL (test code = 7.0 G/DL 2228) ALBUMIN (test code = 220) 4.3 G/DL CALC GLOBULIN (test code = 2.7 G/DL 2239) CALC A/G RATIO (test code = 1.6 RATIO 2233) BILIRUBIN, TOTAL (test code = 0.6 MG/DL 2206) ALKALINE PHOSPHATASE (test 89 U/L code = 2204) AST (test code = 2218) 22 U/L ALT (test code = 2219) 17 U/L LIPID [id number] 00:00:00 Test Item Value Reference Range Interpretation Comments CHOLESTEROL (test code = 2210) 147 MG/DL TRIGLYCERIDES (test code = 2232) 82 MG/DL HDL CHOLESTEROL (test code = 2220) 58 MG/DL CALC LDL CHOL (test code = 2237) 73 MG/DL RISK RATIO LDL/HDL (test code = 1.26 RATIO 2238) LIPID [id number] 00:00:00 Test Item Value Reference Range Interpretation Comments CHOLESTEROL (test code = 2210) 147 MG/DL TRIGLYCERIDES (test code = 2232) 82 MG/DL HDL CHOLESTEROL (test code = 2220) 58 MG/DL CALC LDL CHOL (test code = 2237) 73 MG/DL RISK RATIO LDL/HDL (test code = 1.26 RATIO 2238) PSA, [id number] 00:00:00 Test Item Value Reference Range Interpretation Comments PSA, TOTAL (test code = 2606) 16.70 NG/ML PSA, [id number] 00:00:00 Test Item Value Reference Range Interpretation Comments PSA, TOTAL (test code = 2606) 16.70 NG/ML PSA, [id number] 00:00:00 Test Item Value Reference Range Interpretation Comments PSA, TOTAL (test code = 2606) 16.70 NG/ML SURGICAL PATHOLOGY [id number] 16:36:00 Test Item Value Reference Range Interpretation Comments Case Report (test code Surgical Pathology ? ? = [id number]) ?Case: [id number] ? Authorizing Provider: ?Pako Lopez MD ?Collected: ? 09/14/2019 1052 ?Ordering Location: ? ? [facility]rology, Clear Received: ?09/14/2019 1413 ? Martin Chitina ?Pathologist: ? Mitch Perez MD ?Specimens: ? [...] Right mid base ? Final Diagnosis (test o9fbpJTfAANol3ilACArrC code = [id number]) FuZzEwMzNcZnRuYmpcdWMx WGryckBtCKwkf9HfO8LaFh AwMFxhbnNpXGRlZmxhbmcx DFCoNQL1jlJlEMWbCRwtAY RnHNqjJu3zcIExcXycMjJa VHPay4tovxGNddnnpFh2e4 ycEQRbStH7kAOdFLskA1su ciEqfVGlKQImPKc9wK00FC EuaI1zpMZqEDynstNeUqP2 FComJOKeBhY6XDQkcUEkPM ZvM5dbKJMkUZptJRIoVMwd kQOwLHD3fBjpc5A2cEXcwL QqpHpzEmTqWaWzQKJXu4Ci QTm6sJxdX7AuWTMoGhZ3eW QgUGFyYWdyYXBoIEZvbnQ7 aQ31XRctjaZ2vEFlw8Ccr2 1ft742tF5whIUeSTJ2FQXl OEQjtDMuZUMpNPA3FTWopU NwH4wgQWwqMP6xklzgFPN5 MFxtYXJndDcyMFxtYXJnYj NusNVkUTMppNmvJOolt546 SCX1IqDjYD2lO6Ccd9K4xY 9maXRcZGVmdGFiNzIwXGZv er8thFLhZXlnz2WmSEL4xw M3jFOdsCEuEYKsXO32Nhua m2QyDyysMTP2OHKvrrBmo0 Rtu4axUjPnrlJsQ7duP6Cp ZHJoZWFkXHBnYnJkcmZvb3 Gpr3QyqKBssJa4n5fdKDWu IHUnaGjzx4ooVMF6RAGuU6 C4fEHom3eeFBsqWBTzaCU2 hdVdNHWhyELgT5CoaQ9kJX frUI6oxtk8r6myVkByTL8c zdqav2iyTAgtXFBfFKO2Zq DgFCDuj4MpcgyvBgKjw0Kz qEPbVRtuD95pt015FZKhuf YsO3rxfQWrdizjmDSixrwa XGjaavH8BGc0izHovsfbkZ xwbGFpblxmMVxmczIwXGxh iykpNQTrYTdpU9dgLqCiAV ScwXksSNeyg6RfJSOyMKFo BzDceEFiHXFgGXBMU9TZKJ OGYLjZSQ8GGRMIYCBEUKiV VEVSQUwgQVBFWCwgTkVFRE eLPOFZE8GJEYdweDncmV5z HbSzMmAtFuzhNI4gATYdE4 gvzOHtJYLnQKItC7mxUyVy vK5lxMjwZYhxVtInOxAlPq kyNAYtgYcifM7lWvZzUrTi FQunOF5dFKWkV3vzyRUhTO SsPZYoV0lnBjYeiC9htUlq MVxmczIwICAgICAgLSBQUk 5SWXUSHXSnJKWOUi7DYIQT CY0JIOUkGUrLKCTZD63qS8 NPUkUgNyAoNCszKVxwbGFp blxmMVxmczIyXGxhbmcxMD HxJUsmO9heXaVtYZEoyDfq PKszs6MgRGLeDOXxOtxneu IyXHBhclxwbGFpblxmMVxm czIwXGxhbmcxMDMzXGhpY2 dmGmJgSUDcsRwuVGmsb0Yk XGYxXGZzMjAgICAgICAtIE bACLOEEWuQR6FAWVGikEik lX7vIqPjRaFaItjqFU3dKP LzO1mgeTLkARGhFVOgI7rc UmEfkP3pxFleJRvkQdUmNe YaNwfqXSFeqJxlcR9mIrPr YdDgOCifMD4sELTvM9aiuV QfIHIcUINsA8abZrTwxA8e aFxmMVxmczIwICAgICAgLS GSNPMJSY4SPKwUOW5STRtE OVRPM27uQQYFBNFAJeW2Su M1TNQfBYBrLOxtAYMeFEFt MjJcbGFuZzEwMzNcaGljaF thSShgVjSxKHWsQKguL9sk IqKqM3LcKOOfMgFfnOXaAT BsYWluXGYxXGZzMjBcbGFu ZzEwMzNcaGljaFxmMVxkYm WdKFOeMSavR4cfVmViTiWt MPRzMMByDC8rCGHVF0LvWF 8NT9cQDGDfPUYSW8NZSCFQ TJL7OSLyX4IxCRoBWGDNC1 WRWPARQZNMFM9EJJakyTPa blxmMVxmczIyXGxhbmcxMD IcLKcoU9kyPjNwKIJnuLob JYvmq0HwXLDbRELsPtffiy IyXHBhclxwbGFpblxmMVxm czIwXGxhbmcxMDMzXGhpY2 whZgCaUMYvdFgwWOmjn3Ev XGYxXGZzMjAgICAgICAtIF RPVEFMIExJTkVBUiBNSUxM JQ1ODGNDHeATPhTTABTFJB IdW49IDPGTWSAJTOY3XCFc ME9HEHXxQFtsARIeMNZhGh JcbGFuZzEwMzNcaGljaFxm VKkrOkKnZYKgSYtmU9noXd EmB2QjLNFvMdBleWMqYQHc YWluXGYxXGZzMjBcbGFuZz EwMzNcaGljaFxmMVxkYmNo OVUgZInpB9rgXgJsOrOfZB RiCDFvMI2aVU9APRgeQXtE DVCPZZ9GHLiWXCOWYENJDY 6QOXQWGdVYIi1IBDfcFOIC TVxwbGFpblxmMVxmczIyXG outvejAQIpUUceP1lwQjPm EEZtwExdGCsci0XaOIRwOC NmMlxmczIyXHBhclxwbGFp blxmMVxmczIwXGxhbmcxMD CdXQasD4mxHfXrILWvdCdj OAeiw1FaQUKwNGDvKtHrCN AgICAtIFBFUklORVVSQUwg WP3NOWDIE28sZh2MIXaWPB 3HSYPKDKSsaCiewX4xFoYd HkXqRsurJI4oMQRpY4ojuF WqBURfSZKyU2dkOeCeyL1w aFxmMVxjZjJcZnMyMlxwYX AnJnxrCjChbHltfE0zNcSk ZnMyNFxwbGFpblxmMVxmcz NeAYbgcrozMCBiUAzjU9wl AdHiJNTjoEyvVIhze1NaCM JoOGPgGbYrqMI3SOToA5Fk XHBsYWluXGYxXGZzMjJcbG FuZzEwMzNcaGljaFxmMVxk QqTiBIGrNGsmE7knJyHdB1 YyXGZzMjJccGFyXGZpMFxw wTKecwucWSnqdzY1PGAsSO luXGYxXGZzMjBcbGFuZzEw MzNcaGljaFxmMVxkYmNoXG ZgFIptM6oaXnVlMhHlPGFS XoRZIl4CLJYZYGSQTHCPCM jgQHOROLLTPVANVfTSXL5W ESmwGiLZMPbHFQDEX1XMFC xcxDvaiX6tXmYzAxQbLsws KN3xTKCzX4tcqVEkZCJoXN PkP8czDfYzuV9caStaAVyv ZjJcZnMyMlxwYXJcZmkyNz JvbVfmnK8xCpBwXkGhJJwt bGFpblxmMVxmczIwXGxhbm tjAFFhHCshM1iwJeMqHNVm xVrrRWvgd2BnHPWoVYBdMe DuHGEBDz9WGHIYJURrEWZT Dx9SOYTBPR1KSKCsBUxEFI KUK10uI5JRZlVoXGVbWQkb UQnmjRcedC6sEdWnIpXtXq mkAT8pYWZgV9otuONyGZEe GIVcG4slTlOoxC5vtAocVX xjZjJcZnMyMlxwYXJccGxh vN9vPvMiVwIiGMwrWU8bKW RzE1kdjRDlLMLdEJRpJ7dh FvAhtW1dwBoqNMwfcnYwUJ 9yL4CNCRVrM5QWUUWwNPcw bGFpblxmMVxmczIyXGxhbm umDNJfSXqyQ1lyYvZuAEOh bRsjQMqaa1ZnVYJzNQUsFb xmczIyXHBhclxwbGFpblxm MVxmczIwXGxhbmcxMDMzXG qcW8ezYjSeJYCjiGyoCNyc g0HiTAKrLXNvIxSbINTAWw MLEDYOW0XJTIMIYRZXZJ9G YWWoPOPIG7XHGFvznCTqln xmMVxmczIyXGxhbmcxMDMz IHyxQ8hoHyGwIKIfzOqgTU fvm9ZlRISrNWSoGxsbihLj XHBhclxwbGFpblxmMVxmcz CgGRntchcnNHHsHAveN1ju KuBfLVSyaYobXAxza2AhWS JnHJGvQpOoWBPRMC5RJiAX TlZPTFZFUyAxIENPUkUgQU 1ANCr0GZUjA7QkKBaSYQJY S4BDUHRSYPSMUV2EKAecrI FpblxmMVxmczIyXGxhbmcx CUEgOZguV3cgFeQfQMIlrA wxYVdyd0XwGIGmXZDnEbdf czIyXHBhclxwbGFpblxmMV xmczIwXGxhbmcxMDMzXGhp P8saSuRzBDRhjBjjVPkll2 YeDNErOWQtXiNvMLQZI3VO HHYCUE5RWSHjCCwADLvJIM IHMrKbX7MtLdLTLFhHZJLN CwJhGGhKF4RWHaFhVNIAPS xwbGFpblxmMVxmczIyXGxh obwcFVPfGQlpS7zlXqBhSA QykNulRJntp7NkUHZiVUBj MlxmczIyXHBhclxwbGFpbl xmMVxmczIwXGxhbmcxMDMz BIlrS1xeZaJlKKBfqJyoYW tjz0UaFOZcIMCcLtRfSVGY Y6AJCXRJGV1MFHUgMEqTKV tPDKTAVvOvC0FwX5AGQ0lH M79WSkHfClANOZcgjIPwka xmMVxmczIyXGxhbmcxMDMz ZVboC4boUhZeMSRzmMrlTK bmr3BkQAWvNTAoIzmrxoDp XHBhclxwbGFpblxmMVxmcz LtDMookrvsSQUqJIjuV3qe KqUlJLPibVyiOLhga2AhUW YxXGZzMjAgLSBQRVJJTkVV ZpKURYrYQgVUIV4FCJ2AAE BJREVOVElGSUVEXHBhclxw YXJcZmkwXHBsYWluXGYwXG MpBjCbfSbimT1zXuFrOjKp XYflBE9aFUVtW4tubDLdYC BjUQJrY0muXnJqdO9deSty TLzajqKtWHYuRSJLD0UTYV NKUHgGNZ8YNOWXZWAVPNzH VEVSQUwgQkFTRSwgTkVFRE xMSPMPX7USDAtaqXbjzU1w JiJbEgTnJvwnVG6pFGTuT1 ccsDHpXPAkHSEcD6klXkJk aR1jpKyoHOcjNgRpJsDxTa wpTHOoIujbGjLglTmvzJ3p ZjBcZnMyNFxwbGFpblxmMV xmczIwXGxhbmcxMDMzXGhp K5idVnKvIXJzpFsmIPbzk7 JeOMKlQFGwJhReNPHSCa1K HISXEUFpSOYKDl7AEUCEHX 8WVIQhMEeOYDRKF13uH8FQ UkUgOSAoNCsgNSlccGxhaW 3xMoAlKzRwDjgmMH8dUYUv Q7ctdSJaWBRoMCDaR6joJn SvbH5mpIieYDkrOdBcNlYd NpnqZVUloZwecE0cVnEpDo PuKMgpBI4xHSJiE0jokJZo ZFJlHYRiC3rgEfBuqF9ggL ucJNfnjiXxDE4kX2XXDOZk S8AGYIBgMUkjpXYvrxfcZF xmczIyXGxhbmcxMDMzXGhp U9mfGnYuCYQykXdpHZjdo3 NoXGYxXGNmMlxmczIyXHBh clxwbGFpblxmMVxmczIwXG bipcduJZObRRxgL9vbLwXx SJKgwLysJSljt0BvIKChPX QtSeElUICAZQ5UXjCXQxCA DFCOSdWcYMTOXxOuYB9ONV QsMIHyQ4RaEOaZGTGFH5UM KQJIJPAPWN5SEUuldCUfdd xmMVxmczIyXGxhbmcxMDMz ZFikP4weDyHvNJFltYpdSB cvo2VhIKAeIEWzLlizzePd XHBhclxwbGFpblxmMVxmcz NqOWimsywmUDTfSVkbW8gi OoZoKQYdrPqrRToxc7TiTB GmEQVnTfVbBKMVP7AOJSXJ TT1YOPPeTQkBVNeMEXMTHk RuH3KpDwVEMReHFMKVDxGc ZArYY0JHXvFhOXIDJFambR FpblxmMVxmczIyXGxhbmcx FSWoGKeyD5lpWgKrHLWilC clBPzas3AtEMEzOTTeJosc czIyXHBhclxwbGFpblxmMV xmczIwXGxhbmcxMDMzXGhp W9dhFyOrESZynNzmEJqsl3 JzMKRfWFTrPwUwWTDMH5RL HISFPI4EAXWmEDxWIGiRDP LLUmVxR0QwW1FCN7pFN81U JjH5GU7AHLDqgdYeWGURFg dHDTOMJAjbKP5MNOUDS35o Jn4TCKtOHY2BGRZRYRTjrN iimN0sEnUkYvYlXxqxTD7j ZOGuN3kjdLKoBMDrMHAkV2 mnDrEgpM4qmIddKToeWxMj ZnMyMlxwYXJccGFyXGZpMF tkcJAricunPXuydwW1IYGr YWluXGYxXGZzMjBcbGFuZz EwMzNcaGljaFxmMVxkYmNo RCVrHJgaC9evCeOwMtQmOX RYBbEXJq1HBUJHDFAASFBE RCwgTEVGVCBNSUQgQVBFWC ypMgEKWAcBCQOSF9GFYTao jTjuuN3gJdKaCqFzPkadSS 9mABLrR0cteWEcDBMjFYXj T2uaNkOslN5ahTpeSPtaAz JcZnMyMlxwYXJcZmkyNzBc fJvuvE0mIpJfMbAdTIceaO FpblxmMVxmczIwXGxhbmcx RNPfAQujB7diRdRqHVGwuL ieFDojv0QzAVMeVGJmLgUo PVEEGW7QA65kSIIGN2UNFC mDLGUYS9SEYPCOVCWVQXEJ Ro7COYEkCV3FQGEKPXPSLE 9OXHBhclxwYXJcZmkwXHBs YWluXGYwXGZzMjRccGxhaW 7aAmLrLlTlYLrvKM6fYGVp Q0hedEFnGXZrTPMvL6pyNp CszD0hsFlzGRzkydJsLODi ZPANU2UNHUUASKvKJX4RBH REWFPJVZ6RSKLGBJZpKH7T AMFZEZNGZT7FG1h0HBNzCS luXGYxXGZzMjJcbGFuZzEw MzNcaGljaFxmMVxkYmNoXG HaEAcsU2irCgAdQ3JyZOVt MjJccGFyXGZpMjcwXHBsYW ezHBSmSDTdVvZewDyjiX5a UuXwDrSqFNpvJT9hLVQhI8 opzLFmFQLnVUOuF8mbWcHj zZ1rjSzoJWxgvxMuVJ2uLZ DJF9JMIFcLQSAKHM7WT8IV T9gUM95DXYDJBATYG20JLD HZS4QAYWavWRVjSBKiUVOx YWluXGYxXGZzMjJcbGFuZz EwMzNcaGljaFxmMVxkYmNo WQElCGsxP7yiLeUhS0JbRA ZzMjJccGFyXHBsYWluXGYx XGZzMjBcbGFuZzEwMzNcaG ljaFxmMVxkYmNoXGYxXGxv R9kkMaSwNjRoBIQbLPbNRH YAWVhZO8YCYFNjtUkmmY3l LnFsLfWeBkogFS8pWQKhE5 ghiCStQNFtZIFlM1qxPgXs cB2liChnCIstRgScEaSkLa upHLFoeGrxoU7tZyJuEfQb ALoqCO1wDPVqS3jxbNGcVO VbWVTjZ3xeWlTadR3thHyq JXgqkqYqHB1hLCSCS2PzUB 1IS3jMBCYwQWVTV3LRPOPE LQVmWJNiH1HxSSkXTJKTY8 AOLZPJEKDTNC1XUUjleQUf blxmMVxmczIyXGxhbmcxMD GvWNzdZ3aaSnWpCGOudVgt CSvbn7SbQOCpRGLxLutgzi IyXHBhclxwbGFpblxmMVxm czIwXGxhbmcxMDMzXGhpY2 bcLzPuYDIcuPssREhbe1Nw TEHpTGPdUtDiKDWEU4LSXE FSGK3TWPXaVVgOVThVREKS DdHxT8OiIlPCWNpDEQKADf HcOMiNH3ZFHuYaPwNXPNhk bGFpblxmMVxmczIyXGxhbm ahOOJlIRrlU6psWoSnPENq lEarFKnvi8BcQAGsSOOdCi xmczIyXHBhclxwbGFpblxm MVxmczIwXGxhbmcxMDMzXG ccK5acQtGrCAVddUmkFErl l4MiUUMmWFKeEkGxHJCWC2 ZPBJUMWU7SUJOxKWsXJUdY THXIAjKaS3XgU0XQL3tTS9 6EYeHzHdWhSS5nxQzcpV2z FfRnSjZcDyjmDE4fZRIdG8 yegVKnNJAyVEVpJ4kzPdTl kA7xtDmzVCpiUjJtGpHmId ntTMBkcTryyW8aIqCeJaXz RJlyLP3dDYSdS7iuyCYzGV XmMLRdV8suHuTbbV3tsKtf EDuxkfRqZZ2tZQYXFU1SMR TWFMFWLiQIS1yYIkEON5Ot SURFTlRJRklFRFxwYXJccG FyXGZpMFxwbGFpblxmMFxm ofB0FGPgWJpfINVkVCXyEw BcbGFuZzEwMzNcaGljaFxm XBwaEwYuGTLsKDzaW4ihXx ChYmAkEGVGZjUZNm1QYNUB RSBHTEFORCwgTEVGVCBNSU QgQkFTRSwgTkVFRExFIEJJ M5XIKQquwUoklR3aBrEpPq MaRkuuIC4aNPEhN5wltRNa JDAyHSWvC5qdOrFsrQ6lqZ xmMVxjZjJcZnMyMlxwYXJc cGFyZFxwbGFpblxmMFxmcz N6NVRcHPieDPMlMSRcBeIi bGFuZzEwMzNcaGljaFxmMV yqIbIxTQJcKGfdI6yvBsPe AlRwTQRlIJQjDX3sPiUEND hEDKLGJ7CNRWSRWaNNKRNV BFUzjQOtFQDeJouyHIt2rh BhclxxbFxwbGFpblxmMFxm tmQ8FSGvEZmlWEIxKTQoCe BcbGFuZzEwMzNcaGljaFxm WCncMuKbIDDaCYwiK9llPh FcZnMyMFxwYXJcZmkwXHBs YWluXGYwXGZzMjRccGxhaW 7gImJsKoPxJKakWJ0hJSKi N0eloHOcYPWiECQdH2utUq GbfM2xzNhcEOmfrzQhRWpx RPDRH9VPEBVJQBkTNB8NBM BSSUdIVCBMQVRFUkFMIEFQ SEabNX6GMONFYOYSUS1KT7 v0LXMnTWkwILQkKUNbAnQm bGFuZzEwMzNcaGljaFxmMV caKpHgRTBbCKmfH9zdHzJn S5HfUOAsXwAhhOOuBMAxpr MtvIadfI7mKiIoEqLtDYzd bGFpblxmMVxmczIwXGxhbm avYNBpQVdtA3tzPtUiOLUt hSsiWKqib5KwDVHnEOVnIt AgICAgICAtIEJFTklHTiBQ Ub7DJUQVNZPeTNxTE2WCRN dYIVzdK3wLQ35GAzLBPeEO LT3REXDGB98xiGPrDUOtXg vvGVw6ihLfhwhnwLeplACm cpscMOpvndW1HROuCZnjFT YxXGZzMjBcbGFuZzEwMzNc aGljaFxmMVxkYmNoXGYxXG rzS1zhQuOzVwHiIDigOYFj ZmkwXHBsYWluXGYwXGZzMj VprNltaC0bIyPaApOyERqu XO9lQWUsR9qjuSRnLELiEH RpG0doLjAnqW7ezYalQLyk jwOgNUpgDDDPT4YKEHIUFT iKOR4SVRXIOCmSVQUHDKAG EaZWUK8XTAytGmSBHTmDUL LGN3QLLSocpPrqvS8qSmUi VsYpXozqYW5eZDOpG4tpbI JlGQCwQMMqV6fsVlKzxM8w aFxmMVxjZjJcZnMyMlxwYX EiTottAzLeoBvdqS7dGoQz ZnMyNFxwbGFpblxmMVxmcz QsHQhdczljZKTgRRruN5kd IlWsZMAdeEhpQDbzq7WcNL MyDUEbXcEaWHYIHk3IFOYG WQMjFGHKHg1LYKVQHH9RSH BqMEmKADGIX34dU5LBIaXl AlEuDehoRtugxPdbeI1eDx KnRoXoVdvaOQ1wEXFnI1di uZDlYFXvWVQtU9aiWnIwbV 9jaFxmMVxjZjJcZnMyMlxw MXUosLgeuL5yPoBuKwJkKU beTZ2pAKYtU0cqlEDgDDFy OKVuA3saCtGcfO4oyOnpPD qvuiIlXU8iW2VTRONkQ3TB VVAgMVxwbGFpblxmMVxmcz AiZJewfxskXCBqBKzkI3oj RaNmLHNnkFglZFfck1ZrTW YxXGNmMlxmczIyXHBhclxw bGFpblxmMVxmczIwXGxhbm gbLULwCTdwS3vuZdXmAQHs wShuEEsiv9JkRLWgVFEbJl KeYABBUX2LKtREGfDFPCYY IwJbDHLOSeGcMM9JPJjhHC DQSfLZIDFiIQrHD7AYMFYK PQ3EYmAHYFJnYKbjHLIiVE ZzMjJcbGFuZzEwMzNcaGlj aFxmMVxkYmNoXGYxXGxvY2 liHgPmB7SsUQAyRgUhbPWv XHBsYWluXGYxXGZzMjBcbG FuZzEwMzNcaGljaFxmMVxk RhUjGOZgKExdA3iwKcSpVc MyMCAtIFRPVEFMIExJTkVB AqASBOkDKI7KRTHVPbRFMn MNBQHOFNThW96MYIIDDGFK XWX3URJ0DN3JLFXzRGxdBT YxXGZzMjJcbGFuZzEwMzNc aGljaFxmMVxkYmNoXGYxXG bnK2fzZtCxI3XmONRpVpXh cGFyXHBsYWluXGYxXGZzMj BcbGFuZzEwMzNcaGljaFxm MEbpMjYoBIArCKpcX4wnHi FcZnMyMCAtIFRPVEFMIExJ EzNUKbNKMDqPDT5NFLLOCw UCGoERLPFYJD3FSLE4RMFf OC0qcSozuU0nTfNkApGqBu olZV9rXUXnQ7likZQqPEUr RDShN7tkPxXsjH0lnQwuPR xjZjJcZnMyMlxwYXJccGxh qS3wQkJkIaDdIOnfFE5nCU WeB4uxlZQhEHKtFFSyT6fw NvXunF3hsCsxUGgcjeEzQF 0nXZDAIX6CDEVEEATUTlJF G7sIJyUVH7HnNHHMRyXYFo lFRFxwYXJccGFyXGZpMFxw gOPqfuecMCmigrD3WADzQI luXGYxXGZzMjBcbGFuZzEw MzNcaGljaFxmMVxkYmNoXG XtTQpgM2rhFiEqIgQrZJFY RuNZYi1QEMAIPKQLKTVIZY wgUklHSFQgTEFURVJBTCBC QVNFLCBORUVETEUgQklPUF NZOlxwbGFpblxmMVxmczIy FZtrcpkkUIGxROqyD0reAa QqZILlzKryGHekp5LiNLMi XGNmMlxmczIyXHBhclxwYX JkXHBsYWluXGYwXGZzMjRc nTitcR0uMeIcOjJeUFhoTL 4rNMThG0ltxYUmVZCrDNPl L1nlSnMxcT4jdFvoCAeldo VeEFEfKNVuRFUEBR9YO24h PFLPS6BVEHmSWAZTJ2HRCC IXDCITHEOGQe2FLTXmSW0Z MSDTSGTNGC7WYDHotprjbD L6FTcdyASzPZSvoPbwnKpw dL1lGkAqYqZqUQapiDLdfp xmMVxmczIwXGxhbmcxMDMz PAsfA6wmFoXlLSJjsUjtFF jsk6JyMJFmGYVgYkObiDBr XGZpMFxwbGFpblxmMFxmcz D2YHQyNYukMIRpHLOdPlIs bGFuZzEwMzNcaGljaFxmMV ybLiGnLKByWZpqK6ywLdEj QtAzIUXNSvPJOc7OWZHKYY BHTEFORCwgUklHSFQgTUlE JIHOKEriUM6JYIRHQRMAMR 3TL0p0FZRoTMwnKWAdYSWi MjJcbGFuZzEwMzNcaGljaF jrDAbgGfOcCDArTHusD9ax YzNkD3UsVUMeVrMbaFDuJC ZpMjcwXHBsYWluXGYwXGZz WrHqtLexlY1jNtBhVfPjBA hwMS4wTEWmB0qeqVUfJRGo LBUwY6eqFjBidG6gqNhjAM lbkoBdWM7bDUNUQ7QGEUsR EUSTII8AF6IOQ9sIN28SSW ERETDOU56LNYTYA5FXETNd KDMrIDMpXHBsYWluXGYxXG ZzMjJcbGFuZzEwMzNcaGlj aFxmMVxkYmNoXGYxXGxvY2 teWbSsK5MvJJWmErRzlQSp XHBsYWluXGYxXGZzMjBcbG FuZzEwMzNcaGljaFxmMVxk DnOtZXRlIXcbG1szYhPoPi VmLFOjUTrXGCOXBHsQJ2UZ DRHwwGckeB0oTdBlKgCmWn qzAG8nWOKtA2gfvDYsKRQj PYPyS5pbQkQnzZ6ioGdsVS xjZjJcZnMyMlxwYXJccGxh oN8gCxKxAmChVEzmWF8rDJ UnW4jmyBQaKWBcWHXjM8dg JrWloC8bqHfjXVqzenTqWR 1cJBFHW6DuDK0RC1bGLJTr VTHDA4YZCJOMZIP1JYOIGh MMLDIyULkBM7ZRIHGHRY0A TkVEXHBsYWluXGYxXGZzMj JcbGFuZzEwMzNcaGljaFxm ERksBnTkURNwCUfkA6paXd NmV3SdLRSnOxDbqWMqSDGp YWluXGYxXGZzMjBcbGFuZz EwMzNcaGljaFxmMVxkYmNo EBArBBssY5ntGyKoEhIeMD AtIFRPVEFMIExJTkVBUiBN INfPTM9HFAKOWtIOBgVZOJ XRFOArG51FTBKWVLRETSX6 RUV8UB7DQPMxXOsmTKRyPO ZzMjJcbGFuZzEwMzNcaGlj aFxmMVxkYmNoXGYxXGxvY2 tjNmMuS4SdIVJpWfUawIBp XHBsYWluXGYxXGZzMjBcbG FuZzEwMzNcaGljaFxmMVxk RfDyFGMsSLccJ6rlZyVjBd MyMCAtIFRPVEFMIExJTkVB BdIDFMbMNP8MJGIUHgEVZa VEWPCSTZ1MZJD9HJXtIB7f aThdhI9kXjIdZmRhQzfeZS 1zXCGdU4alaTVfYYFaIDQf Q8wvKiSldA1vxJvhISzmGr RzPeIkOnqkGMAfxUgabH2u PrGqXzPwPHnaKB7qESArA7 aqjKNkMDZsBOAuG3xyPoIh cV3qiTdgADpxrrWzQC6uIM WXIH9LTFHHVMANJdCHW1dL TcARF4VeRCHXBzNAMryVPG xwYXJccGFyXGZpMFxwbGFp evfdNRvvubI4LHZyHQfsZM YxXGZzMjBcbGFuZzEwMzNc aGljaFxmMVxkYmNoXGYxXG xzC7rmExOeCtDjQCKQIzPV Ax3WOHXVFJXCGUXJXNjiZa yOTQCiDNkOCB9SZJxtGxCV IPdICEXQN8IMSYhsyAjyjJ 3rOkEtXeSoElvgTK8nKEKt V3qyqBJhDSMoQYJyH5lsXa VacX3tsMvyQHzcVhOsRgKj MlxwYXJccGFyZFxwbGFpbl yyHGdhtrL1HPKtHIaxIUVx XGZzMjBcbGFuZzEwMzNcaG ljaFxmMVxkYmNoXGYxXGxv F3eoSzTcRyTxBGKbIXLcJM 7rNzMSADuWVKAEY5USPOOM CiBLYXHPNUEjBR2BYZIRJs 8DQMDlWD6MKJYZOJMQCR5Y XHBhclxwYXJcbHRycGFyXH FsXHBsYWluXGYwXGZzMjRc nWgtqK8dYgScLzGpXMgoYY 2zRHBbK6wglZZdDMNyMFNe T0dyDsFcbI9viMvcDIlbhg CjVBglTILHQ8XJYDKZVXjE KG2EGAJABLgSMMRPSXAfDz SXTOgmOyBXATcLCGXHP9DC USouhIumgY4pTvXgSoWdMj bfAL3gZCFjI8ppmGDlIORf NVKvA2prJqSgiT6muQzcMT xjZjJcZnMyMlxwYXJccGxh bV2aQbEdUdJoFJjzMD1rMJ IuE3juiDTsBQRtRTYdS9oa IwUaxX9fmStmYSxiqxXkRB KxKJFmZXBCYr7IHZYEDBOo ULUOHc8JJXPUOD8XSGYzKD bAENZBM04pP0QUBaZyWmZa GnxxMjiuiOncjF8oTnKaEh FfPpppJI2sTPWiN7qujFQn LSWsRLKdH4cvFcPfjH2gmF xmMVxjZjJcZnMyMlxwYXJc DdoeMeSvyCkrrQ5xUgBoWn MyNFxwbGFpblxmMVxmczIw VIzdpeafZDIaZHpsA4zuQc PfGXPkzRwlLRfcp4OvJBAf XGZzMjAgLSBHUkFERSBHUk 9VUCAxXHBsYWluXGYxXGZz MjJcbGFuZzEwMzNcaGljaF axPDjtReKlYMIrRScrA9xg LdIdO6IjIVAiAgYokRWlEQ BsYWluXGYxXGZzMjBcbGFu ZzEwMzNcaGljaFxmMVxkYm CcOJCcINbkQ2seVsOcNvAd FRQkKHLCXA1ZJRtBCt5DZu PUZTWsP80EBWHESeLpVCGp N5UqMReWBKKTM8EVIVKRPQ FPKE5NYYbouHTfwlrlWChu czIyXGxhbmcxMDMzXGhpY2 caYxGxEAXgsDqpBVjrr2Ym XGYxXGNmMlxmczIyXHBhcl xwbGFpblxmMVxmczIwXGxh gmnjMRItJYhxZ8dyEaHhVY DqzAgfCHmyt8PqBGAvYQXr KwOvHKQLS7BXCRDKHN2ORP PuBFmYMKuTNRQKFdXoO5Xf TkVFRExFIENPUkUgVElTU1 VFOiAxMiBNTVxwbGFpblxm MVxmczIyXGxhbmcxMDMzXG faN7yqEyNjJRWyiQrvPHmu n8IbDPKoAUKwGrsepjQiPJ BhclxwbGFpblxmMVxmczIw VJjzouljDAViACpnY8jbLw GzJZDkxNktXDrnp3SfXPKg LTGrPfMuREXYR6HBYFFMEC 5FQVIgTUlMTElNRVRFUlMg C2GqI0HVT4uEC07NDpAoEd VbXC4abRmkqS7wGaFaHoDq BywyHC5oYGXrN6srhRWlMM CnPHNzV8ckIhZmtD6ipZjv MVxjZjJcZnMyMlxwYXJccG tzkT4dNfAtCsZdYIgpXT0x QFUhX9fxrBUiTHDsGCBeB8 liYxQflA4wkDysFXsmxmKv ZM9sPQEYMJ0XBMTXPHJYPd QTE5xQGqGFK4YoHDOPFuWL RklFRFxwYXJccGFyXHBsYW luXGYxXGZzMjJcbGFuZzEw MzNcaGljaFxmMVxkYmNoXG AhMAleW0gvSjQwS3MhFAXu DgJgYySbkRDvcKIlJ4rspZ xwoltfTFNVFFEpZPngSb9q DSPvBXJ2KbFvEEFZQRQtNX luXGYxXGZzMjBcbGFuZzEw MzNcaGljaFxmMVxkYmNoXG QdDTuyN3tlQmRdRzTgRHOe NFxwbGFpblxmMVxmczIyXG evzyslDAObCHwkA5kkZbAv GLAirGcvEGlrw6TaJFGcPJ CoBlklvvSeBMZwmv15NPD8 JqObk8L7JUDtIkItPXXpVR 2tvRxgSKWpOY6sHQXfO6oz qG6vpni6TcSbPBTdJhR1DB WfopI7Kts6FSArSUnim2xv g1IgZ8NkqYOfjCe0q3cqTP ZgEzX1bICxXRykC6owbrNo sEYcWJQhYVp8kCzzUbKfJF Poa7qxgpShErEzSPNnFOIa WGKleXmxblg4iP58RLYwoQ 2drLRpDVpnbzDfJgV7TYtu SACxKpO5TQOvkIMfNGSuC4 xyZWQwXGdyZWVuMFxibHVl COH4zGwty1X5kADbnUMjdC gbIdWtIpDhXINQk8ViZZu6 hNegX5CiFMBwAhX6bBPfUF RbAKufDIExYUVbrqN7aJ62 NZyuzfP5tKMra5Vmm54ok1 62hK8pxERdPGT9ETUhVYIn bNCkTPCpOZP7DEDolUFjI4 fmYHXkDE1pwqikVPchDWbt QWMxyZG8HJLhlGZrK6JwVD LeXXiePIRdhuu8MoKgEc8u yUKtoJwuLSoat0iwv7kskK RlQdq3HMGeUcObIqrcHFhl i1Yff0dxSJSkpc6iYOZ6vL LesZysd4T8nOJoZGLlnMFr izHoGWWwPcJ8FRstND8wpe 13PFKqDLU0mq7nlURwrRvf gzWwcROfKOqxU8LoRFUqh2 83JSBzV5GkLVKhn0F5vgEw AnEtANBfkEV5jlU2ZTJeRP d9jNAdowE6gjLadNPkC4bq uZ7kLRWbCP2yinrys5lqNA zxOZmlUYEyfTM0ptM6SDBs tGGpJ7DrvQ7vOXTkEGgaBL Roffo0LaVzMh4llJZxkHap MFxzYmtwYWdlXHBnbmNvbn RccGduZGVjXHBsYWluXHBs YWluXGYwXGZzMjRccWxccG zacU9mGfHmTxGuXZqvHE5k DEXbM6wjcYAuJOMoHUKnP3 ftFyEslC0uyMhdEVvzGhUy ZnMyMFxwYXIgSSBoYXZlIH QyjzOlgwYpyKhgtcW2yHE3 ZWQgYWxsIHNwZWNpbWVucy 7ppQsdFAWoUA4fYZRgjbXx UGgwxUolBPemNMB6UBQieJ VudHMgbWFkZSBieSByZXNp SAIuiRMvXTHgiYxez9Zda8 ApdFX5yA1jr7avw9NtLGJq bRU4ZL94fgB4yQ9yEPJlNT 9nOYAoTT6xfYKgyAQlTUPr j89muRclguUoZXHorsAoWF BsYWluXGYyXGZzMjhcbGFu ZzEwMzNcaGljaFxmMlxkYm ZuKKLqLMkgI4ebUyQaIwEa VTdrEKO1kQ== Clinical Information Left lateral apexLeft (test code = lateral midLeft [id number]) lateral base Left mid apexLeft mid midLeft mid base Right lateral apexRight lateral midRight lateral base Right mid apexRight mid midRight mid base Gross Description (test u0vokQDmIPZzhPDyEgJwCT code = [id number]) QlYROqn7lzGACojCMdVxMu MzNcZnRuYmpcdWMxXGRlZm Aic5txs795hCSck2esOXJu AdR5vGHzMCLjiRAzZ363VS KwYXjji4jgq0DwYODucKSm r7H4QDDGefcvmNr8h4gtEw UcQjU5sPZkGUtmX0ocdeWr iPOjEPCtG2YctrVBBNHwWb f1uTilC83jv0Q4SxfzB7tr ZWQwXGdyZWVuMFxibHVlMC T4KZOpOBB2IIwicbIfthF3 UBpplVSpJlN0KWf0f9exwF rdDOCbOCK7a3tjZCayylKr SM0dmk0ebBf6j7bmaiVnEU RvXHWimAMYTQPaW9FujKzp Tr5qdNn5fYzdLrsdMPZ2Of e4RY3wbe13bhk1oUbmWFOz bxmhVwR5UCnrFVYlceevIR j8DHfeLOSpsBNrSAJolKUc T4KjXShuOH0nvte2ZdEyNE 1qgkrbNAmjBPRqVKP8WsHj INEtu3UscsmmJpUpqz0cgx 96OQF1k4ApnNhpFNA9MOI6 NpUxVs9csMXdNMHsDM5yGk CggNRmGGFslp63pNkbLQvg obQdmT3bByInYPCuxIXeAS DlWF6naQLdOPGuqE7fpzyo XHBnYnJkcmhlYWRccGdicm LsMe4anLbjRQW0XYncX5zm zM0dZbQ3OXbfG1pbgZ6iUC z4RQvsuQI7RLTbxL4jPJ2v lzjhx3ooBLC3ISdyOOIsmw M9bjUbYIVhxPOzE7GpqV92 VmKpbUPcA3PqdP4aSUluIY Tvbka7RqBoNw5fkUShwYU4 MFxzYmtwYWdlXHBnbmNvbn RccGduZGVjXHBsYWluXHBs MOksIIYiTCGpZvUcz9OpQY Ghm9puCkLvq9blgBt8GLiv hXabnCMijzxiAAmojiC1RB BsYWluXGYxXGZzMjBcbGFu ZzEwMzNcaGljaFxmMVxkYm FdKHHqYTbqJ7kqNzPfStPt DGXLdWCilC5fyvLKRCifUT KaV3DffcGuJOpoPTTzoi9r tUliIFotYkRcLKZyz0b2kS V8aADurXM9gEPpcSbjEG8c yTOoVADPUT83uBRejdzsMz szNkAqmXG9RLCppTKafXZ9 NnZilkTqB27xu4kycDAwd2 RmUPQgyV7buXYozBAqWSgb DVrnQ19nMLTrKU67XLuxCO 0lOIdyII7oUASlTYA7iJym aCBpcyBlbnRpcmVseSBpbm tlZCBibHVlIGFuZCBzdWJt zMG9TZMheE5vzQ75lpZcus VDUI6szPTyLGXpLAEsaGDh DCKytVFtzjIeSFz6PIJgkN 6lIm8viUBtxG2hvYVjIGir IOR9fCGlBKFxVIXqVOGiPF 86G7WeqfRoJQomJQjubwBb YmVyLCAibGVmdCBsYXRlcm IuCS7lLIIsLW4lRRTvoqOe q3DcOH4tYVSoi6frE3zlNQ Masl1iubT7RHTxtcUnSBVw VSB3YBAqUP0yNvSnD23cUH doaWNoIGlzIGVudGlyZWx5 ZXkvp9KvAJPptABuXF3tFU T1Gz7wzIMkUNRiocV4o8Vr KJxtBDRkZrnpUIXpZ7HgN6 ysOO3kDuXlxxZbOFFirYDy CPGpceOec7PaUAmzaiLhJS JlbGVkIHdpdGggdGhlIHBh jHdpazUspcKvAD3dTWAJOT GjmN8aUVBhXDPnZEK9HLzn kVUxQDtcOzKnEAWfDW0vTN HszxPjf9JrEN5vBTZqr0ct N6bmSATgsm5zmcB6GDDruo FsUGUvZmW3BWSoVRB2IWAg JVTrpGbal8glK3qdyTVyUC 60bTSljRfreQ1mCZNkUey2 HPAyzwSnz7MlyKh0iZEcYB irGAMriT0sgT6aRnSyXXQd vgPUlYKgwR5evgSDVUxhJF CjF4MtkqSoDVuiSWZiwi4t xYccCXfpMvVuJZHuj1m3pA E7qNHhwKW8bIVgpPuxKM8t dUJmIWTGOW14qYRhdtbhFj xlZnQgbWlkIGFwZXgiIGFu TBFdo60sbNH9vzNlXlNlQN NljstsYGW3XY5mY7BgyIDw w2UgTQchYkPolMLlCsClxN GxEhDyM88tBZpqgRSwGAxt MXOejLotGAq4YLggl7HuWP UffKWgGD4xOAL4Vx0wpFSz KWDnotG2o1NnVWzpMTWsCp yaIVAoJ1MeA1nxZV0cURHt cyByZWNlaXZlZCBpbiBmb3 JtYWxpbiBsYWJlbGVkIHdp dGggdGhlIHBhdGllbnQncy XtLY9jSSULRLJxxB7xLOWy TVBqZDA5ZC0pCTHxjQYyDS IgSNKow65weFV0tdJdUlNs IDSevaysDPQ5JR2pA8GcoF Qqo7MzXIadTpVxoMKgWkQc xUWsSjNaI10mFTqslLItHQ xsPRXdtSlrXIh8FFsld5Hl SWLjfNEeRL6yWWY3Mn7ytP ZyPWOjkrH1r8PqAUuiXZMs AmjqIRFrJ8PdJ0vaOW5dRl BpcyByZWNlaXZlZCBpbiBm u6YmMWnbaaCgTCDdsNHkED dpdGggdGhlIHBhdGllbnQn mgKfXD8jSDJYFGDawC1tKR FtNRZaYWG7UY8hEOJaZUDc OmDaarYlW99vr6ploANcl5 MsASXpcK0nlCOpnNRoXFjq JIpbP55xDTXnHQ22UKrkBB 6eSLzgZF7eSCTwOWO6yRth aCBpcyBlbnRpcmVseSBpbm tlZCBibHVlIGFuZCBzdWJt eSO1UMRjoP4ihM39mjNhsi ZTYU9lqPUsHJGwBJEhoGBy OVocpNTqczJbRDh7QOCzrI 0lBy0beXOuaT6baPTqNJsv TVS6kXPcUWScFYSrQYEuZD 67U6EiqlYgHKlfSOcznoZb LkBkNNYclripiAEsoLQ2SC UusVDpwML8FjLequNlB62k t5fbaTVvk3ZcJJFmyD3lzH PcbYOxSHgmJCboB30gWLNz Kg2eKUzcMH2wKJqcMC3aZL RbDUO1iGsszVCtplEhnpOp cmVseSBpbmtlZCBibHVlIG ZoIAZqnUWgmRA5IKQziK0h qK90baCsipHPWU6tiJWrUD NwZWNpbWVuIEggaXMgcmVj ULx2AHVqaI0jXp1mrBKofW 3flZZiCLryHAU5hEGwCQFn WYSmIXZbEK32F8UuosIiUW wgVUggbnVtYmVyLCAicmln nVQypSL8PKJmgPPwhCCjHV BhHCZac56fnJF2pyYbUuNa REQtxkgfUJN5ER9wK1LevD Vlk0HpERjoQyerpTWrRmBd vIAeUaKfD75jSSfbeOBbAT boGPRxmWxnHAj5ZWgzr3Pz CPZogPLzFE9kQNK5Ui3swR IdJFJobjX9h7PzFEdaFUcp KqiuRWJvS0BjH1qgFD3eAE BpcyByZWNlaXZlZCBpbiBm b7ScNCfbvbIbEKHgxOKgOL dpdGggdGhlIHBhdGllbnQn zhQwKD0sSVYMWMZhcB2oLP IsICJyaWdodCBsYXRlcmFs LBOdz8RdPFLuCUQau00beC R6xgNrKcTdOPAmejfkDPV7 CW3aF4PdhGBqh1AkUGmjJz nenRAwOdMwuWKxZnRzW28m IHdoaWNoIGlzIGVudGlyZW n0NTlvs6HdFHLmjCFdPR6v QSK1Lm4wrQFkSKTpqpI7c3 QcRAtzUHczSaqxIHHjG5Tl U9psVO8uAiKdfuXpAMQvxW MxSYVyfuXab9TyNKcjraYv YWJlbGVkIHdpdGggdGhlIH KdyEdwcwPhebMqNZ7qFQAU MUggbnVtYmVyLCAicmlnaH QgbWlkIGFwZXgiIGFuZCBj w11thVY9zmSjGlPqFUOsdx huHKH3AS1jO4SrxCBdw4Dh ICgxLjcgeCAwLjEgeCAwLj DyY57uEGsciISoEBxmKAWn iFjfDQo8KPbay9IoKEUbnV GgWY6aGGR5Sl5nfVWqXQLj hnS4f4CpCAsjRUdfDktzJT HaE7YtG3igIH6lLfTaygWq ARLsxFHiIIRkjkWtq4GaKK xpbiBsYWJlbGVkIHdpdGgg dGhlIHBhdGllbnQncyBuYW 2hWIUZOHFlqA8cKNFhNSYd aWdodCBtaWQgbWlkIiBhbm TkZ33sp2icrXWeq4QoJWDf eH2odJAxsPFwXLqnUUyxF5 3gMULhIc1kXLdyIF1gHDmw PT7vQVYlBIZ3gIfjxHUrwl BlbnRpcmVseSBpbmtlZCBi sEUaJHHbVHFqhFSfyWX5ZW DbpL8kiF48woWczzEDJO6z cGFyIFNwZWNpbWVuIEwgaX ComdZgMMi2NUUrtO2jTp7g bMSatS2xpNYcKJqrIXS0rF EnVPIuMNXiJYKbCI42B7Ua bmFtZSwgVUggbnVtYmVyLC AybjidzTRzlWqlLNAib6Bo TWXiOFVef77vpDB0buWzVa CmFESnjtppRPR6WG3gD3Or tNYkc8CaCKckLkIcdYPsDu GxwPDrXqLrH90lQVfujACm YKejWSDhhSogUSt6FEhki5 EhLGFsbJFwPE3zNSB1Vp6w kPJdCYDrlrP7f2KoSVnrHU wxLlxwYXJccGFyZFxwbGFp jnsyVXgmtxH9RZXwKPvoUX YxXGZzMjBcbGFuZzEwMzNc aGljaFxmMVxkYmNoXGYxXG rbW8uiArIvUhHxDRGXoHgw ILANC2terVYaZFjwYIUXHO BsYWluXGYyXGZzMTZcbGFu ZzEwMzNcaGljaFxmMlxkYm HkDJFjJKhbC3evJwOxG2Ts XGZzMTZccGFyXHBsYWluXG YxXGZzMjRccGFyXHFsXHBs YWluXGYwXGZzMjRccGxhaW 4jDrDlNuSzMAygPV9lNVPg G3zdkULiHOUhNYGrD5yaHx MhbU4ckWjtWGommbDnNCYn cn0= Embedded Images (test code = 0624933727) [facility] SPECIFIC ANTIGEN [id number] 23:07:00 Test Item Value Reference Range Interpretation Comments PSA (test code = 29.30 ng/mL See_Comment H [Automated [id number]) message] The system which generated this result transmitted reference range : <=4.00. The reference range was not used to interpret this result as normal/abnormal . BEVERLEY (test code = BEVERLEY) Biotin has been reported to cause a negative bias, interpret results relative to patient's use of biotin. Lab Interpretation Abnormal (test code = 44659-1) [facility]
[2022-02-01] MEDS ORDERED: MAGNES/ALUMIN/SIMET 30ML UCUP ONE (17:55)
[2022-02-01] MEDS ORDERED: LIDOCAINE VISCOUS 2% SOLN 15 ML UDC ONE (17:56)
[2022-02-01] MEDS ORDERED: FAMOTIDINE 20 MG TAB ONE (17:56)
--- NOTE | 2022-02-01 18:11 | RAD REPORT ---
EXAM DESCRIPTION: RAD - Chest Single View - 02/01/2022 5:55 pm CLINICAL HISTORY: palpitation Chest pain. COMPARISON: Chest Single View dated 01/31/2022; Chest Single View dated 05/21/2021; Chest Single View dated 04/29/2021; Chest Single View dated 03/20/2021 FINDINGS: Portable technique limits examination quality. The lungs are emphysematous but grossly clear. The heart is normal in size. No displaced fractures. IMPRESSION: COPD.
[2022-02-01 18:26] LABS: Absolute Lymphocytes (CBC) 0.7 K/uL (0.7-4.9); Hematocrit 39.2 % (39.6-49.0); Lymphocytes % 10.2 % (15.3-44.8); MCV 90.2 fL (80-100); MPV 8.6 fL (7.6-11.3); RBC Red Blood Cell Count 4.35 M/uL (4.33-5.43)
[2022-02-01 18:51] LABS: Albumin 3.6 g/dL (3.4-5.0); Bilirubin Total 0.7 mg/dL (0.2-1.0); Potassium 3.8 mmol/L (3.5-5.1); Thyroid Stimulating Hormone 1.12 uIU/mL (0.360-3.740)
--- NOTE | 2022-02-01 19:42 | ER ---
Nurse's Notes [facility] Name: Jesse Serna Age: 81 yrs Sex: Male : 1940 Arrival Date: 02/01/2022 Time: 15:55 Bed 19 Private MD: Diagnosis: Palpitations;Essential (primary) hypertension Presentation: 02/01 16:17 Chief complaint: Patient states: brought him in yesterday due to high bp and irregular iw heart beat, has hx of afib and he takes eliquis, today he woke up feeling like his heart is still racing, felt a lot of pressure on his head, BP was 171, daughter gave him bP med and it was still at 146 several hours later. Coronavirus screen: At this time, the client does not indicate any symptoms associated with coronavirus-19. Ebola Screen: Patient negative for fever greater than or equal to 101.5 degrees Fahrenheit, and additional compatible Ebola Virus Disease symptoms Patient denies exposure to infectious person. Patient denies travel to an Ebola-affected area in the 21 days before illness onset. No symptoms or risks identified at this time. Risk Assessment: Do you want to hurt yourself or someone else? Patient reports no desire to harm self or others. Onset of symptoms was February 01, 2022. 16:17 Method Of Arrival: Ambulatory iw 16:17 Acuity: KT 3 iw 21:25 Initial Sepsis Screen: Does the patient meet any 2 criteria? No. Patient's initial aa9 sepsis screen is negative. Does the patient have a suspected source of infection? No. Patient's initial sepsis screen is negative. Triage Assessment: 16:43 Headache History: The patient has had previous headaches and this one is similar to iw previous episodes. General: Appears uncomfortable, slender, well groomed, well developed. General: Behavior is calm, cooperative, appropriate for age. 21:25 Pain: Also complains of. aa9 Historical: - Allergies: 16:19 No Known Allergies; iw - PMHx: 16:19 Arthritis; Atrial fibrillation; Hypertension; prostate cancer- in remission; iw - Family history:: not pertinent. - Social history:: Smoking status: unknown. Screenin:45 Abuse screen: Denies threats or abuse. Nutritional screening: No deficits noted. vg1 Tuberculosis screening: No symptoms or risk factors identified. Fall Risk No fall in past 12 months (0 pts). No secondary diagnosis (0 pts). IV access (20 points). Ambulatory Aid- None/Bed Rest/Nurse Assist (0 pts). Gait- Normal/Bed Rest/Wheelchair (0 pts) Mental Status- Oriented to own ability (0 pts). Total Rosa Fall Scale indicates No Risk (0-24 pts). Assessment: 17:45 General: Appears in no apparent distress. comfortable, Behavior is calm, cooperative. vg1 Pain: Complains of pain in epigastric area Pain currently is 6 out of 10 on a pain scale. Pain began earlier today. Neuro: Level of Consciousness is awake, alert, obeys commands, Oriented to person, place, time, situation. Cardiovascular: Patient's skin is warm and dry. Respiratory: Airway is patent Respiratory effort is even, unlabored. GI: Abdomen is flat, Reports epigastric pain, Patient currently denies nausea, vomiting. : No signs and/or symptoms were reported regarding the genitourinary system. EENT: No signs and/or symptoms were reported regarding the EENT system. Derm: Skin is pink, warm \T\ dry. Musculoskeletal: Circulation, motion, and sensation intact. 19:43 Reassessment: Patient appears in no apparent distress at this time. General: Appears aa9 comfortable, Behavior is calm, cooperative, appropriate for age. Neuro: Level of Consciousness is awake, alert, obeys commands, Oriented to person, place, time, situation. Respiratory: Airway is patent Respiratory effort is even, unlabored. 19:56 Reassessment: discharge pending troponin lab work results. aa9 Vital Signs: 16:40 BP 147 / 76; Pulse 64; Resp 16; Temp 98.6; Pulse Ox 95% ; Weight 73.48 kg; Height 5 ft. iw 4 in. (162.56 cm); 19:43 BP 160 / 70; Pulse 62; Resp 18 S; Pulse Ox 99% on R/A; aa9 16:40 Body Mass Index 27.81 (73.48 kg, 162.56 cm) iw ED Course: 15:55 Patient arrived in ED. as 16:18 Triage completed. iw 16:40 Arm band placed on right wrist. iw 16:57 Dwain Sanchez MD is Attending Physician. rt 17:44 Winetr Small RN is Primary Nurse. vg1 17:45 Patient has correct armband on for positive identification. Bed in low position. Call vg1 light in reach. Side rails up X 1. Adult w/ patient. Client placed on continuous cardiac and pulse oximetry monitoring. NIBP monitoring applied. 17:56 Chest Single View XRAY In Process Unspecified. EDMS 18:15 No provider procedures requiring assistance completed. Inserted saline lock: 20 gauge vg1 in right antecubital area, using aseptic technique. Blood collected. 19:09 Attending Physician role handed off by Dwain Sanchez MD [facility] 19:09 Jameel Valdivia MD is Attending Physician. [facility] 19:41 Solitario Guzmán MD is Referral Physician. [facility] 19:43 Troponin High Sensitivity Sent. aa9 21:25 IV discontinued, intact, bleeding controlled, No redness/swelling at site. Pressure aa9 dressing applied. Administered Medications: 18:16 Drug: Pepcid (famotidine) 20 mg Route: PO; vg1 18:21 Drug: GI Cocktail without - (Maalox Suspension 30 ml, Lidocaine Liquid 2 % 15 vg1 ml) Route: PO; Medication: 17:45 VIS not applicable for this client. vg1 Outcome: 19:41 Discharge ordered by . jacqueline 21:25 Discharged to home ambulatory. aa9 21:25 Condition: stable 21:25 Discharge instructions given to patient, Instructed on discharge instructions, follow up and referral plans. Demonstrated understanding of instructions, follow-up care. 21:26 Patient left the ED. aa9 Signatures: Dispatcher [employer] EDWA Jameel Valdivia MD MD cha Martinez, Amelia as Williams, Irene, RN RN iw Garcia, Victoria, RN RN vg1 Avalos, Aylin, RN RN aa9 Dwain Sanchez MD MD rt
--- NOTE | 2022-02-01 19:43 | EDPHYS ---
Physician Documentation [facility] Name: Jesse Serna Age: 81 yrs Sex: Male : 1940 Arrival Date: 02/01/2022 Time: 15:55 Bed 19 Private MD: ED Physician Jameel Valdivia HPI: 02/01 18:56 This 81 yrs old Male presents to ER via Ambulatory with complaints of High rt Blood Pressure, Headache, Irregular Pulse. 18:56 Modifying factors:. Associated signs and symptoms: Pertinent positives: Indigestion. rt Presents to the ED with epigastric discomfort described as a burning sensation. He states this feels like it is a gastritis. He denies any overt chest pain. He states that he had some palpitations earlier today that has since resolved. He denies shortness of breath, other acute complaints at this time, symptoms are moderate in severity, no other aggravating or alleviating factors.. Historical: - Allergies: 16:19 No Known Allergies; iw - PMHx: 16:19 Arthritis; Atrial fibrillation; Hypertension; prostate cancer- in remission; iw - Family history:: not pertinent. - Social history:: Smoking status: unknown. ROS: 18:56 Constitutional: Negative for fever, chills, and weight loss, Eyes: Negative for injury, rt pain, redness, and discharge, ENT: Negative for injury, pain, and discharge, Respiratory: Negative for shortness of breath, cough, wheezing, and pleuritic chest pain, Back: Negative for injury and pain, MS/Extremity: Negative for injury and deformity, Skin: Negative for injury, rash, and discoloration, Neuro: Negative for headache, weakness, numbness, tingling, and seizure, Psych: Negative for depression, anxiety, suicide ideation, homicidal ideation, and hallucinations. 18:56 Cardiovascular: Positive for palpitations, Negative for chest pain. 18:56 Abdomen/GI: Positive for Dyspepsia, negative for nausea. Exam: 18:56 Constitutional: This is a well developed, well nourished patient who is awake, alert, rt and in no acute distress. Head/Face: Normocephalic, atraumatic. Eyes: Pupils equal round and reactive to light, extra-ocular motions intact. Lids and lashes normal. Conjunctiva and sclera are non-icteric and not injected. Cornea within normal limits. Periorbital areas with no swelling, redness, or edema. ENT: Nares patent. No nasal discharge, no septal abnormalities noted. Tympanic membranes are normal and external auditory canals are clear. Oropharynx with no redness, swelling, or masses, exudates, or evidence of obstruction, uvula midline. Mucous membranes moist. Neck: Trachea midline, no thyromegaly or masses palpated, and no cervical lymphadenopathy. Supple, full range of motion without nuchal rigidity, or vertebral point tenderness. No Meningismus. Chest/axilla: Normal chest wall appearance and motion. Nontender with no deformity. No lesions are appreciated. Cardiovascular: Regular rate and rhythm with a normal S1 and S2. No gallops, murmurs, or rubs. Normal PMI, no JVD. No pulse deficits. Respiratory: Lungs have equal breath sounds bilaterally, clear to auscultation and percussion. No rales, rhonchi or wheezes noted. No increased work of breathing, no retractions or nasal flaring. Abdomen/GI: Soft, non-tender, with normal bowel sounds. No distension or tympany. No guarding or rebound. No evidence of tenderness throughout. Skin: Warm, dry with normal turgor. Normal color with no rashes, no lesions, and no evidence of cellulitis. MS/ Extremity: Pulses equal, no cyanosis. Neurovascular intact. Full, normal range of motion. Neuro: Awake and alert, GCS 15, oriented to person, place, time, and situation. Cranial nerves II-XII grossly intact. Motor strength 5/5 in all extremities. Sensory grossly intact. Cerebellar exam normal. Normal gait. Psych: Awake, alert, with orientation to person, place and time. Behavior, mood, and affect are within normal limits. 18:56 ECG was reviewed by the Attending Physician. Bifascicular block present Vital Signs: 16:40 BP 147 / 76; Pulse 64; Resp 16; Temp 98.6; Pulse Ox 95% ; Weight 73.48 kg; Height 5 ft. iw 4 in. (162.56 cm); 19:43 BP 160 / 70; Pulse 62; Resp 18 S; Pulse Ox 99% on R/A; aa9 16:40 Body Mass Index 27.81 (73.48 kg, 162.56 cm) iw MDM: 17:04 Patient medically screened. rt 19:38 Data reviewed: vital signs, nurses notes, lab test result(s), EKG, radiologic studies, jacqueline plain films. Data interpreted: monitoring manager: rate is 64 beats/min, rhythm is regular. Test interpretation: by ED physician or midlevel provider: ECG, plain radiologic studies. Counseling: I had a detailed discussion with the patient and/or guardian regarding: the historical points, exam findings, and any diagnostic results supporting the discharge/admit diagnosis, lab results, radiology results, the need for outpatient follow up, for definitive care, a molasses feed mixer, a family practitioner. 02/01 17:05 Order name: CBC with Diff; Complete Time: 18:54 rt 02/01 17:05 Order name: CMP; Complete Time: 18:54 rt 02/01 17:05 Order name: Magnesium; Complete Time: 18:54 rt 02/01 17:05 Order name: TSH; Complete Time: 18:54 rt 02/01 17:05 Order name: Lipase; Complete Time: 18:54 rt 02/01 18:54 Order name: Troponin High Sensitivity; Complete Time: 20:38 rt 02/01 17:05 Order name: EKG; Complete Time: 17:05 rt 02/01 17:05 Order name: EKG - Nurse/Tech; Complete Time: 18:24 rt 02/01 17:05 Order name: Chest Single View XRAY; Complete Time: 18:17 rt EC:56 Rate is 53 beats/min. Rhythm is regular, Sinus bradycardia. Left axis deviation noted. rt RI interval is normal. QT interval is normal. No Q waves. Interpreted by me. Administered Medications: 18:16 Drug: Pepcid (famotidine) 20 mg Route: PO; vg1 18:21 Drug: GI Cocktail without - (Maalox Suspension 30 ml, Lidocaine Liquid 2 % 15 vg1 ml) Route: PO; Disposition Summary: 02/01/22 19:41 Discharge Ordered Location: Home jacqueline Problem: new jacqueline Symptoms: have improved jacqueline Condition: Stable jacqueline Diagnosis - Palpitations jacqueline - Essential (primary) hypertension jacqueline Followup: jacqueline - With: Private Physician - When: 1 - 2 days - Reason: Recheck today's complaints, Continuance of care, Re-evaluation by your physician Followup: jacqueline - With: Solitario Guzmán MD - When: 1 - 2 days - Reason: Recheck today's complaints, Continuance of care, Re-evaluation by your physician Discharge Instructions: - Discharge Summary Sheet jacqueline - Atrial Fibrillation jacqueline - Hypertension, Adult jacqueline - Palpitations jacqueline - Hypertension, Adult, [id number] jacqueline - How to Take Your Blood Pressure, [id number] jacqueline - Palpitations, [id number] jacqueline - Atrial Fibrillation, [id number]-tu-[id number] jacqueline - Managing Your Hypertension jacqueline Forms: - Medication Reconciliation Form jacqueline - Thank You Letter jacqueline - Antibiotic Education jacqueline - Prescription Opioid Use jacqueline Signatures: Dispatcher [employer] EDJameel Flores MD MD cha Williams, Irene, RN RN iw Garcia, Victoria, RN RN vg1 Shadia Nguyen RN RN aa9 Dwain Sanchez MD MD rt
[2022-02-01 22:07] VITALS: TEMP 98.6
[2022-02-01 22:08] VITALS: BP 160/70; O2SAT 99
--- NOTE | 2022-02-02 13:48 | EKG ---
Test Date: 2022-02-01 Test Time: 18:03:45 Dairy Feed Sales Consultant: ELVIS MEASUREMENT RESULTS: Intervals: Rate: 53 OR: 148 QRSD: 154 QT: 494 QTc: 463 Ragland: P: 61 OR: 148 QRS: -64 T: 111 INTERPRETIVE STATEMENTS: Sinus bradycardia Right bundle branch block Left anterior fascicular block Bifascicular block T wave abnormality, consider lateral ischemia Abnormal ECG Compared to ECG 01/31/2022 06:17:51 T-wave abnormality now present Possible ischemia now present Sinus rhythm no longer present Bifascicular block still present Electronically Signed On 02-02-22 13:46:58 HAND BOX FOLDER by Carlos Warner
== END 2022-02-01 21:26 | disposition home or self-care (01) ==
LOC: ER 15:50
DX: R00.2 Palpitations (principal); I10 Essential (primary) hypertension
CPT/HCPCS: 36415; 71045; 80053; 83690; 83735; 84443; 84484; 85025; 93005; 99284

== ENCOUNTER 2022-07-19 09:39 | Emergency (ER) | payer SELFPAY ==
--- OUTSIDE RECORDS SUMMARY | 2022-07-19 09:55 | XMS REPORT | Clinical Summary ---
:1940 Author Organization [facility] MD [facility] Address [address] [place] [address] Care Team Providers Name Role Phone Pako Lopez MD Unavailable Nick Delgado MD Primary Care Provider Marek Saini MD Unavailable Allergies No known active allergies Medications Medication Sig Dispensed Refills Start Date End Date Status acetaminophen Take 500 mg 0 Acti ve (TYLENOL) 500 mg by mouth tablet every 6 (six) hours as needed for mild pain. aspirin 81 mg Chew 1 tablet 0 05/27/2021 A ctive chewable (81 mg) tabletIndications: daily. heart health apixaban (Eliquis) Take 1 tablet 60 tablet 5 05/26/2021 Active 5 mg (5 mg) by tabletIndications: mouth every prevent blood clot 12 (twelve) hours. tamsulosin (FLOMAX) Take 1 60 capsule 11 10/30/2021 Active 0.4 mg 24 hr capsule (0.4 capsuleIndications: mg) by mouth Adenocarcinoma of twice daily. prostate atorvastatin TAKE ONE 30 tablet 3 09/24/2021 Active (LIPITOR) 80 mg TABLET BY tabletIndications: MOUTH EVERY Adenocarcinoma of NIGHT AT prostate BEDTIME tamsulosin (FLOMAX) Take 2 60 capsule 6 10/05/2021 Active 0.4 mg 24 hr capsules (0.8 capsuleIndications: mg) by mouth Adenocarcinoma of at bedtime. prostate enalapril (VASOTEC) TAKE ONE 30 tablet 3 11/02/2021 Active 20 mg TABLET BY tabletIndications: MOUTH DAILY Adenocarcinoma of (SKIP DOSE IF prostate SYSTOLIC BLOOD PRESSURE IS LESS THAN 110) pantoprazole TAKE ONE 30 tablet 5 11/19/2021 Active (PROTONIX) 40 mg EC TABLET BY tabletIndications: MOUTH DAILY Adenocarcinoma of prostate metoprolol TAKE ONE 90 tablet 1 12/02/2021 Active succinate (TOPROL TABLET BY XL) 25 mg 24 hr MOUTH ONCE tabletIndications: DAILY ( HOLD Essential (primary) DOSE IF SBP hypertension <110 OR HR <55 ) tamsulosin (FLOMAX) Take 2 60 capsule 6 09/25/2020 10/06/19 Discontinued 0.4 mg 24 hr capsules (0.8 22 (Re order) capsuleIndications: mg) by mouth Adenocarcinoma of at bedtime. prostate metoprolol Take 1 tablet 90 tablet 3 10/27/2020 12/03/19 Disc ontinued succinate (TOPROL (25 mg) by 22 XL) 25 mg 24 hr mouth daily. tabletIndications: Hold dose if blood pressure, systolic heart rate blood pressure (top number) is less than 110 or heart rate less than 55. enalapril (VASOTEC) Take 1 tablet 30 tablet 3 05/26/202111/02 Discontinued 20 mg (20 mg) by 22 tabletIndications: mouth daily. high blood pressure Skip dose if systolic blood pressure (top number) is less than 110. atorvastatin Take 1 tablet 30 tablet 3 05/26/2021 09/25/19 Di scontinued (LIPITOR) 80 mg (80 mg) by 22 tabletIndications: mouth at Adenocarcinoma of bedtime. prostate pantoprazole Take 1 tablet 30 tablet 5 05/26/2021 11/20/19 Di scontinued (Protonix) 40 mg EC (40 mg) by [...] #1: Name: Latoya Serna ( Daughter ) [phone] Contact #2: Name: Phone Number: Contact #3: [...] Encounters Date Type Specialty Care Team Description 06/09/2022 Refill Cardiology Harlan Brandon Essential ( primary) PA hypertension 12/02/2021 Refill Cardiology Harlan Brandon Essential ( primary) PA hypertension 11/19/2021 Refill Genitourinary Oncology Yfn Palacios MD A denocarcinoma of prostate 11/02/2021 Refill Genitourinary Oncology Yfn Palacios MD A denocarcinoma of prostate 10/05/2021 Orders Only Radiation Oncology JonesAshley barriga 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, PHYSICAL MEDICINE SPECIALIST prostate 09/23/2021 Refill Genitourinary Oncology Yfn Palacios MD A denocarcinoma of prostate 09/23/2021 Refill Radiation Oncology Ashley Jones 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, PHYSICAL MEDICINE SPECIALIST prostate 09/21/2021 Refill Genitourinary Oncology Yfn Palacios MD A denocarcinoma of prostate after 07/19/2021 Immunizations Name Administration Dates Next Due Kendra SARS-CoV-2 Vaccination 05/31/2020 remdesivir 03/07/2020, 03/06/2020, 03/05/2020, 03/04/2020, 03/03/2020 Surgical History Surgery Date Site/Laterality Comments LAPAROSCOPIC CHOLECYSTECOMY PROSTATE BIOPSY 09/14/2019 HERNIA REPAIR Bilateral SHOULDER SURGERY 03/14/2011 - Right 03/13/2012 PA COLONOSCOPY FLX DX 07/28/2020 N/A Procedure: DIAGNOSTIC [...] at Date Recorded 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 Start Date Occupation Industry Not on file Not on file Not on file Obstetrics History Last Filed Vital Signs Not on file Plan of Treatment Health Maintenance Due Date Last Done Comments COVID-19 Vaccination (2 - Kendra risk series) 06/28/2020 0 05/31/2020 Results Not on fileafter 07/19/2021 Advance Directives Code Status Date Activated Date Inactivated Comments Full Code 05/22/2021 4:44 PM 05/26/2021 7:54 PM Code Status Date Activated Date Inactivated Comments Full Code 05/22/2021 4:44 PM 05/22/2021 4:44 PM Full Code 08/21/2020 11:52 PM 08/24/2020 5:55 PM Full Code 03/02/2020 8:29 PM 03/07/2020 11:09 PM Full Code 02/26/2020 9:33 PM 02/29/2020 8:36 PM Care Teams Hosiery Repairer Relationship Specialty Start Date End Date Pako Lopez MD PCP - External Urology 10/11/19 [facility]: Referring [address] [place] [id number] Nick Delgado MD PCP - General Genitourinary Oncology 01/25/[address] [place] [address] [id number] Margarita Saini[facility], Consulting Physician Radiation Oncology 02/14/[address] [place] [address] [phone]
--- OUTSIDE RECORDS SUMMARY | 2022-07-19 10:02 | XMS REPORT | Continuity of Care Document ---
:1940 Author Organization [facility] t Address [address] [place] [address] Care Team Providers Name Role Phone Brittany Lockwood Primary Care Physician [phone] Harlan Murray Attending Clinician Kye Palacios MD Attending Clinician Ashley Jones NP Attending Clinician Nida Shaffer MD Attending Clinician Zoey Cummins MD Attending Clinician Srinivas Nguyen MD Attending Clinician Almas Clements MD Attending Clinician OMA HOANG Attending Clinician Unavailable Barrett Jones APN Attending Clinician Oma Mederos Attending Clinician Serena Rodriges Attending Clinician Angelika Sharma RN Attending Clinician Unavailable Kait Nails RPH Attending Clinician Sanjuanita Stratton NP Attending Clinician Hang Menjivar RN Attending Clinician Unavailable AUBREY MORENO Attending Clinician Unavailable JORJE FRIED Attending Clinician Unavailable ERWIN ELMORE Attending Clinician Unavailable DEDE SOSA Attending Clinician Unavailable HAILY GREENWOOD Attending Clinician Unavailable SANJUANITA STRATTON Attending Clinician Unavailable Bryson LAKHANI Fermin Dashawn Attending Clinician Pako Lopez MD Attending Clinician Jaclyn Silver Attending Clinician Petra Bai RN Attending Clinician PAKO LOPEZ Attending Clinician Unavailable Doctor Unassigned, [place] Attending Clinician Unavailable Draw, [facility] Attending Clinician Unavailable ALMAS CLEMENTS Admitting Clinician Unavailable Problems Condition Condition Condition Status Onset Resolution Last Treating Co mments Source Name Details Category Date Date Treatment Clinician Date Acute Acute Disease Active Univers coronary coronary 3-13 ity of syndrome syndrome 00:00: 00 MD [facility] High High Disease Active Univers troponin I troponin I 3-13 it y of level level 00:00: MD Adeola santacruz [facility] Dyspnea Dyspnea Disease Active Univers 3-11 ity of 00:00: MD Adeola santacruz [facility] Center Abdominal Abdominal Disease Active Uni vers pain pain 3-11 ity of 00:00: MD Adeola santacruz [facility] Atrial Atrial Disease Active Last Univers fibrillati fibrillati 6-11 Assessmen ity of on on 00:00: t & Plan: [place] 00 Juan A ANDINO g of this Anderso [...] ity of 00:00: 00 MD Adeola santacruz [facility] Pneumonia Pneumonia Disease Active Uni vers 6-11 ity of 00:00: 00 MD Adeola santacruz [facility] [place] Hypotensio Hypotensio Disease Active U taylor santacruz n 6-11 ity of 00:00: 00 MD Adeola santacruz [facility] Insomnia Insomnia Disease Active Unive rs 3-05 ity of 00:00: 00 MD Adeola santacruz 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 Overweight Overweight Disease Active U nivers 2-06 ity of 00:00: [place] 00 MD Adeola santacruz [facility] Chronic Chronic Disease Active 2019-03 Univers back pain back pain 2-03 ity of 00:00: 00 MD Adeola santacruz 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 Essential Essential Disease Active 2019-03 Last Uni vers (primary) (primary) 2 Assessmen i ty of hypertensi hypertensi 00:00: t & Plan: [place] on Juan A fay of this Anderso note n might be Cancer different Center from the original. Blood pressure modestly controlle d in the clinicat 146/71. Continue managemen t with metoprolo l succinate 25 mg daily and enalapril 10 mg p.o. 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 History [facility] University o f Alcohol Comment [facility] Exposure to Not sure University of SARS-CoV-2 (event) [facility] Alcohol intake 2021-05-22 2021-05-22 Ex-drinker University of 00:00:00 00:00:00 (finding) [place] MD Dave gant [facility] Tobacco use and 2020-02-13 2020-02-13 Smokeless Universit y of exposure 00:00:00 00:00:00 tobacco non-user [facility] Cigarettes smoked 2020-02-13 2020-02-13 Univers ity of current (pack per 00:00:00 00:00:00 [facility] ) - Reported Cancer Ce nter Cigarette 2020-02-13 2020-02-13 University of pack-years 00:00:00 00:00:00 [place] MD Dave gant [facility] History SDOH 2020-02-13 2020-02-13 1 University o f Alcohol Frequency 00:00:00 00:00:00 [facility] History SDOH 2020-02-13 2020-02-13 99 University o f Alcohol Std Drinks 00:00:00 00:00:00 [facility] History SDOH 2020-02-13 2020-02-13 1 University o f Alcohol Binge 00:00:00 00:00:[address] [facility] Tobacco Comment 2020-02-13 2020-02-13 used to smoke; Unive rsity of 00:00:00 00:00:00 quit 12 years Sita noel [facility] Sex Assigned At [birth year] M Universit y of 00:00:00 00:00:00 [place] MD Dave gant [facility] Smoking Status Start Date Stop Date Source Unknown if ever smoked Universit y of [facility] Ex-smoker 2020-02-13 00:00:00 2020-02-13 00:00:00 Universi ty [facility] [place] Medications Ordered Filled Start Stop Current Ordering [...] n <110 OR HR Cancer <55 ) [place] metoprolol Yes Essential TAKE ONE Univers succinate 9-21 (primary) TABLET BY ity of (TOPROL XL) 00:00: hypertensio MOUTH ONCE [place] 25 mg 24 hr 00 n DAILY ( MD tablet HOLD DOSE Anderso IF SBP n <110 OR HR Cancer <55 ) [place] metoprolol Yes Essential TAKE ONE Univers succinate 9-21 (primary) TABLET BY ity of (TOPROL XL) 00:00: hypertensio MOUTH ONCE [place] 25 mg 24 hr 00 n DAILY ( MD tablet HOLD DOSE [place] IF SBP n <110 OR HR Cancer <55 ) [place] metoprolol Yes Essential TAKE ONE Univers succinate 9-21 (primary) TABLET BY ity of (TOPROL XL) 00:00: hypertensio MOUTH ONCE [place] 25 mg 24 hr 00 n DAILY ( MD tablet HOLD DOSE [place] IF SBP n <110 OR HR Cancer <55 ) [place] metoprolol Yes Essential TAKE ONE Univers succinate 9-21 (primary) TABLET BY ity of (TOPROL XL) 00:00: hypertensio MOUTH ONCE [place] 25 mg 24 hr 00 n DAILY ( MD tablet HOLD DOSE [place] IF SBP n <110 OR HR Cancer <55 ) [place] Dose No Unknown 14 00:00: 00 Dose 0 No Unknown 14 00:00: 00 pantoprazol Yes Adenocarcin TAKE ONE Univers e 9-08 geoff of TABLET BY ity of (PROTONIX) 00:00: prostate MOUTH [place] 40 mg EC 00 DAILY MD tablet Anderso n [facility] pantoprazol Yes Adenocarcin TAKE ONE Univers e 9-08 geoff of TABLET BY ity of (PROTONIX) 00:00: prostate MOUTH [place] 40 mg EC 00 DAILY MD tablet [facility] pantoprazol Yes Adenocarcin TAKE ONE Univers e 9-08 geoff of TABLET BY ity of (PROTONIX) 00:00: prostate MOUTH [place] 40 mg EC 00 DAILY MD tablet [facility] pantoprazol Yes Adenocarcin TAKE ONE Univers e 9-08 geoff of TABLET BY ity of (PROTONIX) 00:00: prostate MOUTH [place] 40 mg EC 00 DAILY MD tablet [facility] pantoprazol Yes Adenocarcin TAKE ONE Univers e 9-08 geoff of TABLET BY ity of (PROTONIX) 00:00: prostate MOUTH [place] 40 mg EC 00 DAILY MD tablet [facility] pantoprazol Yes Adenocarcin TAKE ONE Univers e 9-08 geoff of TABLET BY ity of (PROTONIX) 00:00: prostate MOUTH [place] 40 mg EC 00 DAILY MD tablet [facility] enalapril Yes Adenocarcin TAKE ONE Univers (VASOTEC) [...] capsule 00 by mouth twice Anderso daily. [facility] tamsulosin Yes Adenocarcin .4mg Take 1 Univers (FLOMAX) 8-19 geoff of capsule ity of 0.4 mg 24 00:00: prostate (0.4 mg) [place] hr capsule 00 by mouth twice Anderso daily. [facility] tamsulosin Yes Adenocarcin .4mg Take 1 Univers (FLOMAX) 8-19 geoff of capsule ity of 0.4 mg 24 00:00: prostate (0.4 mg) [place] hr capsule 00 by mouth twice Anderso daily. [facility] tamsulosin Yes Adenocarcin .4mg Take 1 Univers (FLOMAX) 8-19 geoff of capsule ity of 0.4 mg 24 00:00: prostate (0.4 mg) [place] hr capsule 00 by mouth twice Anderso daily. [facility] tamsulosin Yes Adenocarcin .4mg Take 1 Univers (FLOMAX) 8-19 geoff of capsule ity of 0.4 mg 24 00:00: prostate (0.4 mg) [place] hr capsule 00 by mouth twice Anderso daily. [facility] tamsulosin Yes Adenocarcin .4mg Take 1 Univers (FLOMAX) 8-19 geoff of capsule ity of 0.4 mg 24 00:00: prostate (0.4 mg) [place] hr capsule 00 by mouth twice Anderso daily. [facility] tamsulosin Yes Adenocarcin .4mg Take 1 Univers (FLOMAX) 8-19 geoff of capsule ity of 0.4 mg 24 00:00: prostate (0.4 mg) [place] hr capsule 00 by mouth twice Anderso daily. [facility] tamsulosin Yes Adenocarcin .4mg Take 1 Univers (FLOMAX) 8-19 geoff of capsule ity of 0.4 mg 24 00:00: prostate (0.4 mg) [place] hr capsule 00 by mouth twice Anderso daily. [facility] tamsulosin Yes Adenocarcin .8mg Take 2 Univers (FLOMAX) 7-25 geoff of capsules ity o f 0.4 mg 24 00:00: prostate (0.8 mg) [place] hr capsule 00 by mouth at Anderso bedtime. [facility] tamsulosin Yes Adenocarcin .8mg Take 2 Univers (FLOMAX) 7-25 geoff of capsules ity o f 0.4 mg 24 00:00: prostate (0.8 mg) [place] hr capsule 00 by mouth at Anders bedtime. [facility] tamsulosin Yes Adenocarcin .8mg Take 2 Univers (FLOMAX) 7-25 geoff of capsules ity o f 0.4 mg 24 00:00: prostate (0.8 mg) [place] hr capsule 00 by mouth at Anders bedtime. [facility] tamsulosin Yes Adenocarcin .8mg Take 2 Univers (FLOMAX) 7-25 geoff of capsules ity o f 0.4 mg 24 00:00: prostate (0.8 mg) [place] hr capsule 00 by mouth at Anders bedtime. [facility] tamsulosin Yes Adenocarcin .8mg Take 2 Univers (FLOMAX) 7-25 geoff of capsules ity o f 0.4 mg 24 00:00: prostate (0.8 mg) [place] hr capsule 00 by mouth at [facility]. [facility] tamsulosin Yes Adenocarcin .8mg Take 2 Univers (FLOMAX) 7-25 geoff of capsules ity o f 0.4 mg 24 00:00: prostate (0.8 mg) [place] hr capsule 00 by mouth at [facility]. [facility] tamsulosin Yes Adenocarcin .8mg Take 2 Univers (FLOMAX) 7-25 geoff of capsules ity o f 0.4 mg 24 00:00: prostate (0.8 mg) [place] hr capsule 00 by mouth at [facility]. [facility] tamsulosin Yes Adenocarcin .8mg Take 2 Univers (FLOMAX) 7-25 geoff of capsules ity o f 0.4 mg 24 00:00: prostate (0.8 mg) [place] hr capsule 00 by mouth at [facility]. [facility] atorvastati Yes Adenocarcin TAKE ONE Univers n (LIPITOR) 7-14 geoff of TABLET BY i ty of 80 mg 00:00: prostate MOUTH [place] tablet 00 EVERY MD NIGHT AT [facility] atorvastati Yes Adenocarcin TAKE ONE Univers n (LIPITOR) 7-14 geoff of TABLET BY i ty of 80 mg 00:00: prostate MOUTH [place] tablet 00 EVERY MD NIGHT AT [facility] atorvastati Yes Adenocarcin TAKE ONE Univers n (LIPITOR) 7-14 geoff of TABLET BY i ty of 80 mg 00:00: prostate MOUTH [place] tablet 00 EVERY MD NIGHT AT [facility] atorvastati Yes Adenocarcin TAKE ONE Univers n (LIPITOR) 7-14 geoff of TABLET BY i ty of 80 mg 00:00: prostate MOUTH [place] tablet 00 EVERY MD NIGHT AT [facility] atorvastati Yes Adenocarcin TAKE ONE Univers n (LIPITOR) 7-14 geoff of TABLET BY i ty of 80 mg 00:00: prostate MOUTH [place] tablet 00 EVERY MD NIGHT AT [facility] atorvastati Yes Adenocarcin TAKE ONE Univers n (LIPITOR) 7-14 geoff of TABLET BY i ty of 80 mg 00:00: prostate MOUTH [place] tablet 00 EVERY MD NIGHT AT [facility] atorvastati Yes Adenocarcin TAKE ONE Univers n (LIPITOR) 7-14 geoff of TABLET BY i ty of 80 mg 00:00: prostate MOUTH [place] tablet 00 EVERY MD NIGHT AT [facility] atorvastati Yes Adenocarcin TAKE ONE Univers n (LIPITOR) 7-14 geoff of TABLET BY i ty of 80 mg 00:00: prostate MOUTH [place] tablet 00 EVERY MD NIGHT AT [facility] aspirin 81 2021-0 Yes 81mg Chew 1 Unive rs mg chewable 3-16 tablet (81 it y of tablet 00:00: mg) daily. [facility] aspirin 81 2021-0 Yes 81mg Chew 1 Unive rs mg chewable 3-16 tablet (81 it y of tablet 00:00: mg) daily. [facility] aspirin 81 2021-0 Yes 81mg Chew 1 Unive rs mg chewable 3-16 tablet (81 it y of tablet 00:00: mg) daily. [facility] aspirin 81 2021-0 Yes 81mg Chew 1 Unive rs mg chewable 3-16 tablet (81 it y of tablet 00:00: mg) daily. [facility] aspirin 81 2021-0 Yes 81mg Chew 1 Unive rs mg chewable 3-16 tablet (81 it y of tablet 00:00: mg) daily. [facility] aspirin 81 2021-0 Yes 81mg Chew 1 Unive rs mg chewable 3-16 tablet (81 it y of tablet 00:00: mg) daily. [facility] aspirin 81 2021-0 Yes 81mg Chew 1 Unive rs mg chewable 3-16 tablet (81 it y of tablet 00:00: mg) daily. [facility] aspirin 81 2021-0 Yes 81mg Chew 1 Unive rs mg chewable 3-16 tablet (81 it y of tablet 00:00: mg) daily. [facility] ibuprofen 2021-0 2022- No 200mg Take 200 Un pierre (AdviL) 200 3-15 03-15 mg by ity of mg tablet 17:49: 00:00 mouth [place] 57 :00 every 6 MD (six) Anderso hours as n needed for Cancer mild pain. Center As needed for back pain ibuprofen 2021-0 2- No 200mg Take 200 Un pierre (AdviL) 200 3-15 03-15 mg by ity of mg tablet 17:49: 00:00 mouth [place] 57 :00 every 6 MD (six) Anderso hours as n needed for Cancer mild pain. Center As needed for back pain ibuprofen 2021-0 2- No 200mg Take 200 Un pierre (AdviL) 200 3-15 03-15 mg by ity of mg tablet 17:49: 00:00 mouth [place] 57 :00 every 6 MD (six) Anderso hours as n needed for Cancer mild pain. Center As needed for back pain ibuprofen 2021-0 2- No 200mg Take 200 Un pierre (AdviL) 200 3-15 03-15 mg by ity of mg tablet 17:49: 00:00 mouth [place] 57 :00 every 6 MD (six) Anderso hours as n needed for Cancer mild pain. Center As needed for back pain ibuprofen 2021-0 2- No 200mg Take 200 Un pierre (AdviL) 200 3-15 03-15 mg by ity of mg tablet 17:49: 00:00 mouth [place] 57 :00 every 6 MD (six) Anderso hours as n needed for Cancer mild pain. Center As needed for back pain ibuprofen 2021-0 2- No 200mg Take 200 Un pierre (AdviL) 200 3-15 03-15 mg by ity of mg tablet 17:49: 00:00 mouth [place] 57 :00 every 6 MD (six) Anderso hours as n needed for Cancer mild pain. Center As needed for back pain ibuprofen 2021-0 2- No 200mg Take 200 Un pierre (AdviL) [...] as n needed for Cancer mild pain. [place] acetaminoph 2021-0 Yes 500mg Take 500 U nivers en 3-15 mg by ity of (TYLENOL) 17:49: mouth [place] 500 mg 48 every 6 MD tablet (six) Anderso hours as n needed for Cancer mild pain. [place] acetaminoph 2021-0 Yes 500mg Take 500 U nivers en 3-15 mg by ity of (TYLENOL) 17:49: mouth [place] 500 mg 48 every 6 MD tablet (six) Anders[place] hours as n needed for Cancer mild pain. [place] acetaminoph 2021-0 Yes 500mg Take 500 U nivers en 3-15 mg by ity of (TYLENOL) 17:49: mouth [place] 500 mg 48 every 6 MD tablet (six) Anders[place] hours as n needed for Cancer mild pain. [place] acetaminoph 2021-0 Yes 500mg Take 500 U nivers en 3-15 mg by ity of (TYLENOL) 17:49: mouth [place] 500 mg 48 every 6 MD tablet (six) Anders[place] hours as n needed for Cancer mild pain. [place] acetaminoph 2021-0 Yes 500mg Take 500 U nivers en 3-15 mg by ity of (TYLENOL) 17:49: mouth [place] 500 mg 48 every 6 MD tablet (six) Anders[place] hours as n needed for Cancer mild pain. [place] acetaminoph 2021-0 Yes 500mg Take 500 U nivers en 3-15 mg by ity of (TYLENOL) 17:49: mouth [place] 500 mg 48 every 6 MD tablet (six) [place] hours as n needed for Cancer mild pain. [place] acetaminoph 2021-0 Yes 500mg Take 500 U nivers en 3-15 mg by ity of (TYLENOL) 17:49: mouth [place] 500 mg 48 every 6 MD tablet (six) [place] hours as n needed for Cancer mild pain. [place] leuprolide, 2021- No 30mg Inject 30 Univers 4 month, 3-15 03-15 mg under ity of (Eligard, 4 16:06: 00:00 the skin [place] month,) 30 46 :00 every 4 MD mg (four) Anderso injection months. n Last dose Cancer 05/16/2020 [place] leuprolide, 2021-0 2021- No 30mg Inject 30 Univers 4 month, 3-15 03-15 mg under ity of (Eligard, 4 16:06: 00:00 the skin [place] month,) 30 46 :00 every 4 MD mg (four) Anderso injection months. n Last dose Cancer 05/16/2020 [place] leuprolide, 2021-0 2021- No 30mg Inject 30 Univers 4 month, 3-15 03-15 mg under ity of (Eligard, 4 16:06: 00:00 the skin [place] month,) 30 46 :00 every 4 MD mg (four) Anderso injection months. n Last dose Cancer 05/16/2020 [place] leuprolide, 2021-2021- No 30mg Inject 30 Univers 4 month, 3-15 03-15 mg under ity of (Eligard, 4 16:06: 00:00 the skin [place] month,) 30 46 :00 every 4 MD mg (four) Anderso injection months. n Last dose Cancer 05/16/2020 [place] leuprolide, 2021-2021- No 30mg Inject 30 Univers 4 month, 3-15 03-15 mg under ity of (Eligard, 4 16:06: 00:00 the skin [place] month,) 30 46 :00 every 4 MD mg (four) Anderso injection months. n Last dose Cancer 05/16/2020 [place] leuprolide, 2021-0 2021- No 30mg Inject 30 Univers 4 month, 3-15 03-15 mg under ity of (Eligard, 4 16:06: 00:00 the skin [place] month,) 30 46 :00 every 4 MD mg (four) Anderso injection months. n Last dose Cancer 05/16/2020 [place] leuprolide, 2021-0 2021- No 30mg Inject 30 Univers 4 month, 3-15 03-15 mg under ity of (Eligard, 4 16:06: 00:00 the skin [place] month,) 30 46 :00 every 4 MD mg (four) Anderso injection months. n Last dose Cancer 05/16/2020 Center cholecalcif 2022-0 2022- No 1999U Take 2,000 Univers gina, 3-15 03-15 Units [...] take Center twice a day cholecalcif 2022-0 2- No 1999U Take 2,000 Univers gina, 3-15 03-15 Units by ity of vitamin D3, 15:58: 00:00 [place] (VITAMIN 48 :00 twice MD D3) 2,000 daily. Anderso units tab Patient n tablet instructed Cancer to take Center twice a day cholecalcif 2022-0 2- No 1999U Take 2,000 Univers gina, 3-15 03-15 Units by ity of vitamin D3, 15:58: 00:00 mouth [place] (VITAMIN 48 :00 twice MD D3) 2,000 daily. Anderso units tab Patient n tablet instructed Cancer to take Center twice a day cholecalcif 2022-0 2022- No 1999U Take 2,000 Univers gina, 3-15 03-15 Units [...] ity of mg tablet 00:00: mg) by [place] 00 mouth every 12 Anderso (twelve) n hours. Cancer [place] pantoprazol 2022-0 Yes 40mg Take 1 Univ ers e 3-15 tablet (40 ity of (Protonix) 00:00: mg) by [place] 40 mg EC 00 mouth MD tablet daily. [facility]o n [facility] apixaban 2022-0 Yes 5mg Take 1 Univers (Eliquis) 5 3-15 tablet (5 ity of mg tablet 00:00: mg) by [place] 00 mouth every 12 Anderso (twelve) n hours. Cancer [place] pantoprazol 2022-0 Yes 40mg Take 1 Univ ers e 3-15 tablet (40 ity of (Protonix) 00:00: mg) by [place] 40 mg EC 00 mouth MD tablet daily. [facility] n [facility] apixaban 2022-0 Yes 5mg Take 1 Univers (Eliquis) 5 3-15 tablet (5 ity of mg tablet 00:00: mg) by [place] 00 mouth every 12 Anderso (twelve) n hours. Cancer Center apixaban 2022-0 Yes 5mg Take 1 Univers (Eliquis) 5 3-15 tablet (5 ity of mg tablet 00:00: mg) by [place] 00 barbara ANDINO every 12 Anderso (twelve) n hours. Cancer Center apixaban 2022-0 Yes 5mg Take 1 Univers (Eliquis) 5 3-15 tablet (5 ity of mg tablet 00:00: mg) by [place] 00 mouth every 12 Anderso (twelve) n hours. Cancer Center apixaban 2022-0 Yes 5mg Take 1 Univers (Eliquis) 5 3-15 tablet (5 ity of mg tablet 00:00: mg) by [place] 00 mouth every 12 Anderso (twelve) n hours. Cancer Center apixaban 2022-0 Yes 5mg Take 1 Univers (Eliquis) 5 3-15 tablet (5 ity of mg tablet 00:00: mg) by [place] 00 barbara ANDINO every 12 Anderso (twelve) n hours. [facility] apixaban 2021- Yes 5mg Take 1 Univers (Eliquis) 5 3-15 tablet (5 ity of mg tablet 00:00: mg) by [place] 00 barbara ANDINO every 12 Anderso (twelve) n hours. [facility] Center pantoprazol 2021- No 40mg Take 1 Uni vers e 3-11-19 tablet (40 ity of (Protonix) 00:00: 00:00 mg) by [place] 40 mg EC 00 :00 mouth MD tablet daily. [facility] pantoprazol 2021- No 40mg Take 1 Uni vers e -11-19 tablet (40 ity of (Protonix) 00:00: 00:00 mg) [place] 40 mg EC 00 :00 mouth MD tablet daily. [facility] pantoprazol 2021- No 40mg Take 1 Uni vers e -11-19 tablet (40 ity of (Protonix) 00:00: 00:00 mg) [place] 40 mg EC 00 :00 mouth MD tablet daily. [facility] pantoprazol 2021- No 40mg Take 1 Uni vers e -11-19 tablet (40 ity of (Protonix) 00:00: 00:00 mg) [place] 40 mg EC 00 :00 mouth MD tablet daily. [facility] pantoprazol 2021- No 40mg Take 1 Uni vers e -11-19 tablet (40 ity of (Protonix) 00:00: 00:00 mg) [place] 40 mg EC 00 :00 mouth MD tablet daily. [facility] pantoprazol 2021- No 40mg Take 1 Uni vers e -26 11- tablet (40 ity of (Protonix) 00:00: 00:00 mg) [place] 40 mg EC 00 :00 mouth MD tablet daily. [facility] enalapril 2021- No 20mg Take 1 Unive rs (VASOTEC) 3-26 10- tablet (20 ity of 20 mg 00:00: 00:00 mg) by [place] tablet 00 :00 mouth MD daily. Anderso Skip dose n if Cancer systolic Center blood pressure (top number) is less than 110. enalapril 2022-0 2022- No 20mg Take 1 Unive rs (VASOTEC) 3-15 -22 tablet (20 ity of 20 mg 00:00: [...] of 20 mg 00:00: 00:00 mg) by [place] tablet 00 :00 mouth MD daily. [facility] Skip dose n if [facility] blood pressure (top number) is less than 110. atorvastati 2021- No Adenocarcin 80mg Take 1 Univers n (LIPITOR) 05-26- geoff of tablet (80 ity of 80 mg 00:00: 00:00 prostate mg) by [place] tablet 00 :00 mouth at [place] bedtime. [facility] atorvastati 2021- No Adenocarcin 80mg Take 1 Univers n (LIPITOR) 05-26 geoff of tablet (80 ity of 80 mg 00:00: 00:00 prostate mg) by [place] tablet 00 :00 mouth at [place] bedtime. [facility] atorvastati 2021- No Adenocarcin 80mg Take 1 Univers n (LIPITOR) 05-26 geoff of tablet (80 ity of 80 mg 00:00: 00:00 prostate mg) by [place] tablet 00 :00 mouth at [place] bedtime. [facility] atorvastati 2021- No Adenocarcin 80mg Take 1 Univers n (LIPITOR) 05-26 geoff of tablet (80 ity of 80 mg 00:00: 00:00 prostate mg) by [place] tablet 00 :00 mouth at [place] bedtime. [facility] atorvastati 2021- No Adenocarcin 80mg Take 1 Univers n (LIPITOR) 05-26 geoff of tablet (80 ity of 80 mg 00:00: 00:00 prostate mg) by [place] tablet 00 :00 mouth at [place] bedtime. [facility] atorvastati 2021- No Adenocarcin 80mg Take 1 Univers n (LIPITOR) 05-26 geoff of tablet (80 ity of 80 mg 00:00: 00:00 prostate mg) by [place] tablet 00 :00 mouth at [place] bedtime. [facility] atorvastati 2021- No Adenocarcin 80mg Take 1 Univers n (LIPITOR) 05-26 geoff of tablet (80 ity of 80 mg 00:00: 00:00 prostate mg) by [place] tablet 00 :00 mouth at bedtime. Adeola santacruz [facility] atorvastati 2021- No Adenocarcin 80mg Take 1 Univers n (LIPITOR) 05-26 geoff of tablet (80 ity of 80 mg 00:00: 00:00 prostate mg) by [place] tablet 00 :00 mouth at bedtime. Adeola santacruz [facility] enalapril 2021- No Essential TAKE ONE [facility] (VASOTEC) 05-18 (primary) TABLET BY ity of 10 mg 00:00: 00:00 hypertensio MOUTH [place] tablet 00 :00 n DAILY ( MD HOLD DOSE Anderso IF SBP<110 n ) [facility] enalapril 2021- No Essential TAKE ONE Univers (VASOTEC) 05-18 (primary) TABLET BY ity of 10 mg 00:00: 00:00 hypertensio MOUTH [place] tablet 00 :00 n DAILY ( MD HOLD DOSE Anderso IF SBP<110 n ) [facility] enalapril 2021- No Essential TAKE ONE Univers (VASOTEC) 05-18 (primary) TABLET BY ity of 10 mg 00:00: 00:00 hypertensio MOUTH [place] tablet 00 :00 n DAILY ( MD HOLD DOSE Anderso IF SBP<110 n ) [facility] enalapril 2021- No Essential TAKE ONE Univers (VASOTEC) 05-18 (primary) TABLET BY ity of 10 mg 00:00: 00:00 hypertensio MOUTH [place] tablet 00 :00 n DAILY ( MD HOLD DOSE Anderso IF SBP<110 n ) [facility] enalapril 2021- No Essential TAKE ONE [facility] (VASOTEC) 05-18 (primary) TABLET BY ity of 10 mg 00:00: 00:00 hypertensio MOUTH [place] tablet 00 :00 n DAILY ( MD HOLD DOSE Anderso IF SBP<110 n ) [facility] enalapril 2021- No Essential TAKE ONE Univers (VASOTEC) 05-1815 (primary) TABLET BY ity of 10 mg 00:00: 00:00 hypertensio MOUTH [place] tablet 00 :00 n DAILY ( MD HOLD DOSE Anderso IF SBP<110 n ) [facility] enalapril 2021- No Essential TAKE ONE [facility] (VASOTEC) 05-1815 (primary) TABLET BY ity of 10 mg 00:00: 00:00 hypertensio MOUTH [place] tablet 00 :00 n DAILY ( MD HOLD DOSE Anderso IF SBP<110 n ) [facility] apixaban 2021- No Paroxysmal 5mg Take 1 [facility] (Eliquis) 5 10-28-15 atrial tablet (5 ity of mg tablet 00:00: 00:00 fibrillatio mg) by [place] 00 :00 n mouth MD every 12 [place] (twelve) n hours. [facility] apixaban 2021- No Paroxysmal 5mg Take 1 [facility] (Eliquis) 5 10-28-15 atrial tablet (5 ity of mg tablet 00:00: 00:00 fibrillatio mg) by [place] 00 :00 n mouth MD every 12 [place] (twelve) n hours. [facility] apixaban 2021- No Paroxysmal 5mg Take 1 [facility] (Eliquis) 5 10-28-15 atrial tablet (5 ity of mg tablet 00:00: 00:00 fibrillatio mg) by [place] 00 :00 n mouth MD every 12 [place] (twelve) n hours. [facility] apixaban 2021- No Paroxysmal 5mg Take 1 [facility] (Eliquis) 5 10-28-15 atrial tablet (5 ity of mg tablet 00:00: 00:00 fibrillatio mg) by [place] 00 :00 n mouth MD every 12 [place] (twelve) n hours. [facility] apixaban 2021- No Paroxysmal 5mg Take 1 [facility] (Eliquis) 5 10-28-15 atrial tablet (5 ity of mg tablet 00:00: 00:00 fibrillatio mg) by [place] 00 :00 n mouth MD every 12 [place] (twelve) n hours. [facility] apixaban 2021- No Paroxysmal 5mg Take 1 [facility] (Eliquis) 5 8-17 03-15 atrial tablet (5 ity of mg tablet 00:00: 00:00 fibrillatio mg) by [place] 00 :00 n mouth MD every 12 [facility] (twelve) n hours. [facility] apixaban 2021- No Paroxysmal 5mg Take 1 [facility] (Eliquis) 5 8-17 03-15 atrial tablet (5 ity of mg tablet 00:00: 00:00 fibrillatio mg) by [place] 00 :00 n mouth MD every 12 [place] (twelve) n hours. [facility] metoprolol Yes 25mg Take 1 Unive rs [...] No 25mg Take 1 Univ ers succinate -27 11- tablet (25 ity of (TOPROL XL) 00:00: 00:00 mg) by [place] 25 mg 24 hr 00 :00 mouth MD tablet daily. [place]o Hold dose n if Cancer systolic Center blood pressure (top number) is less than 110 or heart rate less than 55. metoprolol 2021- No 25mg Take 1 Univ ers succinate 10-27- tablet (25 ity of (TOPROL XL) 00:00: [...] No Insomnia 7.5mg Take 1 Univers (REMERON) 7-07 06-15 due to tablet ity o f 7.5 mg 00:00: 00:00 medical (7.5 mg) [place] tablet 00 :00 condition by mouth MD at [facility] bedtime. n [facility] diphenoxyla 2021- No Diarrhea 1{tbl} Take 1 Univers te-atropine 7-27 -15 tablet by it y of (LomotiL) 00:00: [...] :00 [facility] n [facility] diphenoxyla 2021- No Diarrhea 1{tbl} [...] 00 :[facility] diphenoxyla 2021- No Diarrhea 1{tbl} [...] :00 [facility] n [facility] diphenoxyla 2021- No Diarrhea 1{tbl} [...] 00 :[facility] diphenoxyla 2021- No Diarrhea 1{tbl} Take [...] tablet 00 :00 condition by mouth at [facility]. [facility] diphenoxyla 2021- No Diarrhea 1{tbl} Take [...] tablet 00 :00 condition by mouth at [facility]. [facility] tamsulosin 2021- No Adenocarcin .8mg Take 2 Univers (FLOMAX) 09-25 07-25 geoff of capsules ity of 0.4 mg 24 00:00: 00:00 prostate (0.8 mg) [place] hr capsule 00 :00 by mouth at [facility]. [facility] tamsulosin 2021- No Adenocarcin .8mg Take 2 Univers (FLOMAX) 09-25-25 geoff of capsules ity of 0.4 mg 24 00:00: 00:00 prostate (0.8 mg) [place] hr capsule 00 :00 by mouth at [facility]. [facility] tamsulosin 2021- No Adenocarcin .8mg Take 2 Univers (FLOMAX) 09-25-25 geoff of capsules ity of 0.4 mg 24 00:00: 00:00 prostate (0.8 mg) [place] hr capsule 00 :00 by mouth at [facility]. [facility] tamsulosin 2021- No Adenocarcin .8mg Take 2 Univers (FLOMAX) 09-25-25 geoff of capsules ity of 0.4 mg 24 00:00: 00:00 prostate (0.8 mg) [place] hr capsule 00 :00 by mouth at [facility]. [facility] tamsulosin 2021- No Adenocarcin .8mg Take 2 Univers (FLOMAX) 09-25-25 geoff of capsules ity of 0.4 mg 24 00:00: 00:00 prostate (0.8 mg) [place] hr capsule 00 :00 by mouth at [facility]. [facility] tamsulosin 2021- No Adenocarcin .8mg Take 2 Univers (FLOMAX) 09-25-25 geoff of capsules ity of 0.4 mg 24 00:00: 00:00 prostate (0.8 mg) [place] hr capsule 00 :00 by mouth at [facility]. [facility] tamsulosin 2021- No Adenocarcin .8mg Take 2 Univers (FLOMAX) 09-25-25 geoff of capsules ity of 0.4 mg 24 00:00: 00:00 prostate (0.8 mg) [place] hr capsule 00 :00 by mouth at [facility]. [facility] tamsulosin 2021- No Adenocarcin .8mg Take 2 Univers (FLOMAX) 09-25-25 geoff of capsules ity of 0.4 mg 24 00:00: 00:00 prostate (0.8 mg) [place] hr capsule 00 :[facility] enalapril 2020-2021- No 10mg Take 1 Unive rs (VASOTEC) 08-24- tablet (10 ity of 10 mg 00:00: 00:00 mg) by [place] tablet 00 :00 mouth MD daily. Anderso Hold dose n if Cancer systolic Center blood pressure (top number) is less than 110. enalapril 2020-0 2021- No 10mg Take 1 Unive rs (VASOTEC) 08-24- tablet (10 ity of 10 mg 00:00: 00:00 mg) by [place] tablet 00 :00 mouth MD daily. Anderso Hold dose n if Cancer systolic Center blood pressure (top number) is less than 110. enalapril 2020-2021- No 10mg Take 1 Unive rs (VASOTEC) 08-24- tablet (10 ity of 10 mg 00:00: 00:00 mg) by [place] tablet 00 :00 mouth MD daily. Anderso Hold dose n if Cancer systolic Center blood pressure (top number) is less than 110. enalapril 2020-2021- No 10mg Take 1 Unive rs (VASOTEC) 08-24- tablet (10 ity of 10 mg 00:00: 00:00 mg) by [place] tablet 00 :00 mouth MD daily. Anderso Hold dose n if Cancer systolic Center blood pressure (top number) is less than 110. enalapril 2020-2021- No 10mg Take 1 Unive rs (VASOTEC) 08-24- tablet (10 ity of 10 mg 00:00: 00:00 mg) by [place] tablet 00 :00 mouth MD daily. Anderso Hold dose n if Cancer systolic Center blood pressure (top number) is less than 110. enalapril 2020-2021- No 10mg Take 1 Unive rs (VASOTEC) 6- tablet (10 ity of 10 mg 00:00: 00:00 mg) by [place] tablet 00 :00 mouth MD daily. Anderso Hold dose n if Cancer systolic Center blood pressure (top number) is less than 110. enalapril 2020-0 2021- No 10mg Take 1 Unive rs (VASOTEC) 6-13 -07 tablet (10 ity of 10 mg 00:00: 00:00 mg) by [place] tablet 00 :00 mouth MD daily. [facility] blood pressure (top number) is less than 110. bicalutamid 2021- No Adenocarcin 50mg Take 1 Univers e (CASODEX) 5-19 03-15 geoff of tablet (50 ity of 50 mg 00:00: 00:00 prostate mg) by [place] tablet 00 :00 mouth MD daily. [facility] bicalutamid 2021- No Adenocarcin 50mg Take 1 Univers e (CASODEX) 5-30 05-15 geoff of tablet (50 ity of 50 mg 00:00: 00:00 prostate mg) by [place] tablet 00 :00 mouth MD daily. [facility] bicalutamid 2021- No Adenocarcin 50mg Take 1 Univers e (CASODEX) 5-30 05-15 geoff of tablet (50 ity of 50 mg 00:00: 00:00 prostate mg) by [place] tablet 00 :00 mouth MD daily. [facility] bicalutamid 2021- No Adenocarcin 50mg Take 1 Univers e (CASODEX) 5- 03-15 geoff of tablet (50 ity of 50 mg 00:00: 00:00 prostate mg) by [place] tablet 00 :00 mouth MD daily. [facility] bicalutamid 2021- No Adenocarcin 50mg Take 1 Univers e (CASODEX) 07-30 03-15 geoff of tablet (50 ity of 50 mg 00:00: 00:00 prostate mg) by [place] tablet 00 :00 mouth MD daily. [facility] bicalutamid 2021- No Adenocarcin 50mg Take 1 Univers e (CASODEX) 5-19 03-15 geoff of tablet (50 ity of 50 mg 00:00: 00:00 prostate mg) by [place] tablet 00 :00 mouth MD daily. [facility] bicalutamid 2021- No Adenocarcin 50mg Take 1 Univers e (CASODEX) 5-19 03-15 geoff of tablet (50 ity of 50 mg 00:00: 00:00 prostate mg) by [place] tablet 00 :00 [facility] pantoprazol 2021- No Adenocarcin 40mg Take 1 Univers e 3-05 03-15 geoff of tablet (40 ity of (Protonix) 00:00: 00:00 prostate mg) by [place] 40 mg EC 00 :00 mouth MD tablet daily with [facility] breakfast. [facility] pantoprazol 2021- No Adenocarcin 40mg Take 1 Univers e 3-05 03-15 geoff of tablet (40 ity of (Protonix) 00:00: 00:00 prostate mg) by [place] 40 mg EC 00 :00 mouth MD tablet daily with [place] breakfast. [facility] pantoprazol 2021- No Adenocarcin 40mg Take 1 Univers e 3-05 03-15 geoff of tablet (40 ity of (Protonix) 00:00: 00:00 prostate mg) by [place] 40 mg EC 00 :00 mouth MD tablet daily with [place] breakfast. [facility] pantoprazol 2021- No Adenocarcin 40mg Take 1 Univers e 3-05 03-15 geoff of tablet (40 ity of (Protonix) 00:00: 00:00 prostate mg) by [place] 40 mg EC 00 :00 mouth MD tablet daily with [place] breakfast. [facility] pantoprazol 2021- No Adenocarcin 40mg Take 1 Univers e 3-05 03-15 geoff of tablet (40 ity of (Protonix) 00:00: 00:00 prostate mg) by [place] 40 mg EC 00 :00 mouth MD tablet daily with [place] breakfast. [facility] pantoprazol 2021- No Adenocarcin 40mg Take 1 [facility] e 3-05 03-15 geoff of tablet (40 ity of (Protonix) 00:00: 00:00 prostate mg) by [place] 40 mg EC 00 :00 mouth MD tablet daily with [place] breakfast. [facility] pantoprazol 2021- No Adenocarcin 40mg Take 1 Univers e 3-05 03-15 geoff of tablet (40 ity of (Protonix) 00:00: 00:00 prostate mg) by [place] 40 mg EC 00 :00 mouth MD tablet daily with [place] breakfast. [facility] Dose 2021-0 No Unknown 1- 00:00: 00 Dose 2020-0 No Unknown 1- 00:00: 00 Dose 2020-0 No Unknown 1- 00:00: 00 Dose 2020-0 No Unknown 1- 00:00: 00 amlodipine 2019-1 No 1mg 5 mg tablet 2- 00:00: 00 enalapril 2019-1 No 1mg maleate 10 2-03 mg tablet 00:00: 00 amlodipine 2019-1 No 1mg 5 mg tablet 2 00:00: 00 enalapril 2019-1 No 1mg maleate 10 2-03 mg tablet 00:00: 00 amlodipine 2020-0 No 1mg 5 mg tablet 11-19 00:00: 00 enalapril 2020-0 No 1mg maleate 10 9-08 mg tablet 00:00: 00 amlodipine 2020-0 No 1mg 5 mg tablet 11-19 00:00: 00 enalapril 2020-0 No 1mg maleate 10 9-08 mg tablet 00:00: 00 tamsulosin 2020-0 Yes [id number] .4mg Take 1 [facility] 0.4 mg 24 7-13 capsule by ity of hr capsule 00:00: mouth [place] 00 daily. [facility] tamsulosin 2020-0 Yes [id number] .4mg Take 1 [facility] 0.4 mg 24 7-13 capsule by ity of hr capsule 00:00: mouth [place] 00 daily. [facility] tamsulosin 2020-0 Yes [id number] .4mg Take 1 [facility] 0.4 mg 24 7-13 capsule by ity of hr capsule 00:00: mouth [place] 00 daily. [facility] tamsulosin 2020-0 Yes [id number] .4mg Take 1 [facility] 0.4 mg 24 7-13 capsule by ity of hr capsule 00:00: mouth [place] 00 daily. [facility] tamsulosin 2020-0 Yes [id number] .4mg Take 1 [facility] 0.4 mg 24 7-13 capsule by ity of hr capsule 00:00: mouth [place] 00 daily. [facility] tamsulosin 2020-0 Yes [id number] .4mg Take 1 [facility] 0.4 mg 24 7-13 capsule by ity of hr capsule 00:00: mouth [place] 00 daily. [facility] tamsulosin 2020-0 Yes [id number] .4mg Take 1 [facility] 0.4 mg 24 7-13 capsule by ity of hr capsule 00:00: mouth [place] 00 daily. [facility] tamsulosin 2020-0 Yes [id number] .4mg Take 1 [facility] 0.4 mg 24 7-13 capsule by ity of hr capsule 00:00: mouth [place] 00 daily. [facility] tamsulosin 2020-0 Yes [id number] .4mg Take 1 [facility] 0.4 mg 24 7-13 capsule by ity of hr capsule 00:00: mouth [place] 00 daily. [facility] tamsulosin 2020-0 Yes [id number] .4mg Take 1 [facility] 0.4 mg 24 7-13 capsule by ity of hr capsule 00:00: mouth [place] 00 daily. [facility] tamsulosin 2020-0 Yes [id number] .4mg Take 1 [facility] 0.4 mg 24 7-13 capsule by ity of hr capsule 00:00: mouth [place] 00 daily. [facility] tamsulosin 2020-0 Yes [id number] .4mg Take 1 [facility] 0.4 mg 24 7-13 capsule by ity of hr capsule 00:00: mouth [place] 00 daily. [facility] tamsulosin 2020-0 Yes [id number] .4mg Take 1 [facility] 0.4 mg 24 7-13 capsule by ity of hr capsule 00:00: mouth [place] 00 daily. [facility] tamsulosin 2020-0 Yes [id number] .4mg Take 1 [facility] 0.4 mg 24 7-13 capsule by ity of hr capsule 00:00: mouth [place] 00 daily. [facility] tamsulosin 2020-0 Yes [id number] .4mg Take 1 [facility] 0.4 mg 24 7-13 capsule by ity of hr capsule 00:00: mouth [place] 00 daily. [facility] tamsulosin 2020-0 Yes [id number] .4mg Take 1 [facility] 0.4 mg 24 7-13 capsule by ity of hr capsule 00:00: mouth [place] 00 daily. [facility] tamsulosin 2020-0 Yes [id number] .4mg Take 1 [facility] 0.4 mg 24 7-13 capsule by ity of hr capsule 00:00: mouth [place] 00 daily. [facility] tamsulosin 2020-0 Yes [id number] .4mg Take 1 [facility] 0.4 mg 24 7-13 capsule by ity of hr capsule 00:00: mouth [place] 00 daily. [facility] tamsulosin 2020-0 Yes [id number] .4mg Take 1 [facility] 0.4 mg 24 7-13 capsule by ity of hr capsule 00:00: mouth [place] 00 daily. [facility] tamsulosin 2019-0 Yes [id number] .4mg Take 1 [facility] 0.4 mg 24 7-13 capsule by ity of hr capsule 00:00: mouth [place] 00 daily. [facility] tamsulosin 2019-0 Yes [id number] .4mg Take 1 [facility] 0.4 mg 24 7-13 capsule by ity of hr capsule 00:00: mouth [place] 00 daily. [facility] tamsulosin 2019-0 Yes [id number] .4mg Take 1 [facility] 0.4 mg 24 7-10 capsule by ity of hr capsule 00:00: mouth [place] 00 daily. [facility] tamsulosin 0 2020- No [id number] .4mg Take 1 [facility] 0.4 mg 24 7-10 07-12 capsule by ity of hr capsule 00:00: 00:00 mouth [place] 00 :00 daily. [facility] cefTRIAXone 2019- No 500mg Univ ers (ROCEPHIN) 09-13 ity of injection 15:45: 15:10 [place] 500 mg 00 :00 Medical Branch gentamicin 0 2019- No 80mg Univer s INTRAMUSCUL 09-13 ity of AR syringe 15:45: 15:10 [place] 80 mg 00 :00 Medical Branch gentamicin 0 2020- No 80mg 80 mg, Univ ers [...] of surgery mineral oil 2019-0 2020- No [id number] 1{enema Insert 1 Univers (READY-TO-U 09-06 } Enema into i ty of SE ENEMA, 00:00: 04:59 rectum [place] MIN OIL,) 00 :00 once now Medica l enema for 1 Branch dose. Perform morning of procedure. mineral oil 0 2020- No [id number] 1{enema Insert 1 Univers (READY-TO-U 09-06 } Enema into i ty of SE ENEMA, 00:00: 04:59 rectum [place] MIN OIL,) 00 :00 once now Medica l enema for 1 Branch dose. Perform morning of procedure. mineral oil 2019-0 2020- No [id number] 1{enema Insert 1 [facility] (READY-TO-U 09-06 } Enema into i ty of SE ENEMA, 00:00: 04:59 rectum [place] MIN OIL,) 00 :00 once now Medica l enema for 1 Branch dose. Perform morning of procedure. mineral oil 2019-0 2020- No [id number] 1{enema Insert 1 [facility] (READY-TO-U 09-06 } Enema into i ty of SE ENEMA, 00:00: 04:59 rectum [place] MIN OIL,) 00 :00 once now Medica l enema for 1 Branch dose. Perform morning of procedure. ciprofloxac 2019-0 Yes [id number] 500mg Take 1 [facility] in HCl 500 6-25 tablet by ity of mg tablet 00:00: mouth [place] 00 every 12 Medical (twelve) Branch hours. Start 1 day before procedure. ciprofloxac 2020-0 Yes [id number] 500mg Take 1 [facility] in HCl 500 6-25 tablet by ity of mg tablet 00:00: mouth [place] 00 every 12 Medical (twelve) Branch hours. Start 1 day before procedure. ciprofloxac 2020-0 Yes [id number] 500mg Take 1 [facility] in HCl 500 6-25 tablet by ity of mg tablet 00:00: mouth [place] 00 every 12 Medical (twelve) Branch hours. Start 1 day before procedure. ciprofloxac 2020-0 Yes [id number] 500mg Take 1 [facility] in HCl 500 6-25 tablet by ity of mg tablet 00:00: mouth [place] 00 every 12 Medical (twelve) Branch hours. Start 1 day before procedure. ciprofloxac 2020-0 Yes [id number] 500mg Take 1 [facility] in HCl 500 6-25 tablet by ity of mg tablet 00:00: mouth [place] 00 every 12 Medical (twelve) Branch hours. Start 1 day before procedure. ciprofloxac 2020-0 Yes [id number] 500mg Take 1 [facility] in HCl 500 6-25 tablet by ity of mg tablet 00:00: mouth [place] 00 every 12 Medical (twelve) Branch hours. Start 1 day before procedure. ciprofloxac 2020-0 Yes [id number] 500mg Take 1 [facility] in HCl 500 6-25 tablet by ity of mg tablet 00:00: mouth [place] 00 every 12 Medical (twelve) Branch hours. Start 1 day before procedure. ciprofloxac 2020-0 Yes [id number] 500mg Take 1 [facility] in HCl 500 6-25 tablet by ity of mg tablet 00:00: mouth [place] 00 every 12 Medical (twelve) Branch hours. Start 1 day before procedure. ciprofloxac 2020-0 Yes [id number] 500mg Take 1 [facility] in HCl 500 6-25 tablet by ity of mg tablet 00:00: mouth [place] 00 every 12 Medical (twelve) Branch hours. Start 1 day before procedure. ciprofloxac 2020-0 Yes [id number] 500mg Take 1 [facility] in HCl 500 6-25 tablet by ity of mg tablet 00:00: mouth [place] 00 every 12 Medical (twelve) Branch hours. Start 1 day before procedure. ciprofloxac 2020-0 Yes [id number] 500mg Take 1 [facility] in HCl 500 6-25 tablet by ity of mg tablet 00:00: mouth [place] 00 every 12 Medical (twelve) Branch hours. Start 1 day before procedure. ciprofloxac 2020-0 Yes [id number] 500mg Take 1 [facility] in HCl 500 6-25 tablet by ity of mg tablet 00:00: mouth [place] 00 every 12 Medical (twelve) Branch hours. Start 1 day before procedure. ciprofloxac 2020-0 Yes [id number] 500mg Take 1 [facility] in HCl 500 6-25 tablet by ity of mg tablet 00:00: mouth [place] 00 every 12 Medical (twelve) Branch hours. Start 1 day before procedure. ciprofloxac 2020-0 Yes [id number] 500mg Take 1 [facility] in HCl 500 6-25 tablet by ity of mg tablet 00:00: mouth [place] 00 every 12 Medical (twelve) Branch hours. Start 1 day before procedure. ciprofloxac 2020-0 Yes [id number] 500mg Take 1 [facility] in HCl 500 6-25 tablet by ity of mg tablet 00:00: mouth [place] 00 every 12 Medical (twelve) Branch hours. Start 1 day before procedure. ciprofloxac 2020-0 Yes [id number] 500mg Take 1 [facility] in HCl 500 6-25 tablet by ity of mg tablet 00:00: mouth [place] 00 every 12 Medical (twelve) Branch hours. Start 1 day before procedure. ciprofloxac 2020-0 Yes [id number] 500mg Take 1 [facility] in HCl 500 6-25 tablet by ity of mg tablet 00:00: mouth [place] 00 every 12 Medical (twelve) Branch hours. Start 1 day before procedure. ciprofloxac 2020-0 Yes [id number] 500mg Take 1 [facility] in HCl 500 6-25 tablet by ity of mg tablet 00:00: mouth [place] 00 every 12 Medical (twelve) Branch hours. Start 1 day before procedure. ciprofloxac 2020-0 Yes [id number] 500mg Take 1 [facility] in HCl 500 6-25 tablet by ity of mg tablet 00:00: mouth [place] 00 every 12 Medical (twelve) Branch hours. Start 1 day before procedure. ciprofloxac 2020-0 Yes [id number] 500mg Take 1 [facility] in HCl 500 6-25 tablet by ity of mg tablet 00:00: mouth [place] 00 every 12 Medical (twelve) Branch hours. Start 1 day before procedure. ciprofloxac 2020-0 2020- No [id number] 500mg Take 1 [facility] in HCl 500 6-25 07-30 tablet by ity of mg tablet 00:00: 00:00 mouth [place] 00 :00 every 12 Medical (twelve) Branch hours. Start 1 day before procedure. ciprofloxac 2020-0 2020- No [id number] 500mg Take 1 [facility] in HCl 500 6-25 07-30 tablet by ity of mg tablet 00:00: 00:00 mouth [place] 00 :00 every 12 Medical (twelve) Branch hours. Start 1 day before procedure. ciprofloxac 2020-0 2020- No [id number] 500mg Take 1 [facility] in HCl 500 6-25 07-30 tablet by ity of mg tablet 00:00: 00:00 mouth [place] 00 :00 every 12 Medical (twelve) Branch hours. Start 1 day before procedure. ciprofloxac 2020-0 2020- No [id number] 500mg Take 1 [facility] in HCl 500 6-25 07-30 tablet by ity of mg tablet 00:00: 00:00 mouth [place] 00 :00 every 12 Medical (twelve) Branch hours. Start 1 day before procedure. ciprofloxac 2020-0 2020- No [id number] 500mg Take 1 [facility] in HCl 500 6-25 07-03 tablet by ity of mg tablet 00:00: 04:59 mouth [place] 00 :00 every 12 Medical (twelve) Branch hours for 7 days. ciprofloxac 2020-0 2020- No [id number] 500mg Take 1 [facility] in HCl 500 6-25 07-03 tablet by ity of mg tablet 00:00: 04:59 mouth [place] 00 :00 every 12 Medical (twelve) Branch hours for 7 days. enalapril 2020-0 Yes 10mg Take 10 mg [place] 10 mg 6-22 by mouth ity of tablet 20:31: daily. [address] amLODIPine 2020-0 Yes 5mg Take 5 mg [facility] [place] 5 mg tablet 6-22 by mouth ity of 20:31: daily. [address] enalapril 2020-0 Yes 10mg Take 10 mg [facility] [place] 10 mg 6-22 by mouth ity of tablet 20:31: daily. [address] amLODIPine 2020-0 Yes 5mg Take 5 mg [facility] [place] 5 mg tablet 6-22 by mouth ity of 20:31: daily. [address] enalapril 2020-0 Yes 10mg Take 10 mg [facility] [place] 10 mg 6-22 by mouth ity of tablet 20:31: daily. [address] amLODIPine 2020-0 Yes 5mg Take 5 mg [facility] [place] 5 mg tablet 6-22 by mouth ity of 20:31: daily. [address] enalapril 2020-0 Yes 10mg Take 10 mg [place] 10 mg 6-22 by mouth ity of tablet 20:31: daily. [address] amLODIPine 2020-0 Yes 5mg Take 5 mg [place] 5 mg tablet 6-22 by mouth ity of 20:31: daily. [address] enalapril 2020-0 Yes 10mg Take 10 mg [place] 10 mg 6-22 by mouth ity of tablet 20:31: daily. [address] amLODIPine 2020-0 Yes 5mg Take 5 mg [place] 5 mg tablet 6-22 by mouth ity of 20:31: daily. [address] enalapril 2020-0 Yes 10mg Take 10 mg [place] 10 mg 6-22 by mouth ity of tablet 20:31: daily. [address] amLODIPine 2020-0 Yes 5mg Take 5 mg [place] 5 mg tablet 6-22 by mouth ity of 20:31: daily. [address] enalapril 2020-0 Yes 10mg Take 10 mg [place] 10 mg 6-22 by mouth ity of tablet 20:31: daily. [address] amLODIPine 2020-0 Yes 5mg Take 5 mg [place] 5 mg tablet 6-22 by mouth ity of 20:31: daily. [address] enalapril 2020-0 Yes 10mg Take 10 mg [place] 10 mg 6-22 by mouth ity of tablet 20:31: daily. [address] amLODIPine 2020-0 Yes 5mg Take 5 mg [facility] [place] 5 mg tablet 6-22 by mouth ity of 20:31: daily. [address] enalapril 2020-0 Yes 10mg Take 10 mg [facility] [place] 10 mg 6-22 by mouth ity of tablet 20:31: daily. [address] amLODIPine 2020-0 Yes 5mg Take 5 mg [facility] [place] 5 mg tablet 6-22 by mouth ity of 20:31: daily. [address] enalapril 2020-0 Yes 10mg Take 10 mg [facility] [place] 10 mg 6-22 by mouth ity of tablet 20:31: daily. [address] amLODIPine 2020-0 Yes 5mg Take 5 mg Un pierre 5 mg tablet 6-22 by mouth ity of 20:31: daily. [address] enalapril 2020-0 Yes 10mg Take 10 mg Un [facility] 10 mg 6-22 by mouth ity of tablet 20:31: daily. [address] amLODIPine 2020-0 Yes 5mg Take 5 mg Un pier[facility] 5 mg tablet 6-22 by mouth ity of 20:31: daily. [address] enalapril 2020-0 Yes 10mg Take 10 mg Un pier[facility] 10 mg 6-22 by mouth ity of tablet 20:31: daily. [address] amLODIPine 2020-0 Yes 5mg Take 5 mg Un pierre 5 mg tablet 6-22 by mouth ity of 20:31: daily. [address] enalapril 2020-0 Yes 10mg Take 10 mg Un pierre 10 mg 6-22 by mouth ity of tablet 20:31: daily. [address] amLODIPine 2020-0 Yes 5mg Take 5 mg Un pier[facility] 5 mg tablet 6-22 by mouth ity of 20:31: daily. [address] enalapril 2020-0 Yes 10mg Take 10 mg Un pier[place] 10 mg 6-22 by mouth ity of tablet 20:31: daily. [address] amLODIPine 2020-0 Yes 5mg Take 5 mg Un pierre 5 mg tablet 6-22 by mouth ity of 20:31: daily. [address] enalapril 2020-0 Yes 10mg Take 10 mg Un pierre 10 mg 6-22 by mouth ity of tablet 20:31: daily. [address] amLODIPine 2020-0 Yes 5mg Take 5 mg Un pierre 5 mg tablet 6-22 by mouth ity of 20:31: daily. [address] enalapril 2020-0 Yes 10mg Take 10 mg Un pierre 10 mg 6-22 by mouth ity of tablet 20:31: daily. [address] amLODIPine 2020-0 Yes 5mg Take 5 mg Un pierre 5 mg tablet 6-22 by mouth ity of 20:31: daily. [address] enalapril 2020-0 Yes 10mg Take 10 mg Un pier[facility] 10 mg 6-22 by mouth ity of tablet 20:31: daily. [address] amLODIPine 2020-0 Yes 5mg Take 5 mg Un pierre 5 mg tablet 6-22 by mouth ity of 20:31: daily. [address] enalapril 2020-0 Yes 10mg Take 10 mg Un pierre 10 mg 6-22 by mouth ity of tablet 20:31: daily. [address] amLODIPine 2020-0 Yes 5mg Take 5 mg Un pierre 5 mg tablet 6-22 by mouth ity of 20:31: daily. [address] enalapril 2020-0 Yes 10mg Take 10 mg Un pierre 10 mg 6-22 by mouth ity of tablet 20:31: daily. [address] amLODIPine 2020-0 Yes 5mg Take 5 mg Un pierre 5 mg tablet 6-22 by mouth ity of 20:31: daily. [address] enalapril 2020-0 Yes 10mg Take 10 mg Un pierre 10 mg 6-22 by mouth ity of tablet 20:31: daily. [address] enalapril 2020-0 Yes 10mg Take 10 mg Un pier[facility] 10 mg 6-22 by mouth ity of tablet 20:31: daily. [address] amLODIPine 2020-0 Yes 5mg Take 5 mg Un pierre 5 mg tablet 6-22 by mouth ity of 20:31: daily. [address] enalapril 2020-0 Yes 10mg Take 10 mg Un pierre 10 mg 6-22 by mouth ity of tablet 20:31: daily. [address] amLODIPine 2020-0 Yes 5mg Take 5 mg Un pierre 5 mg tablet 6-22 by mouth ity of 20:31: daily. [address] amLODIPine 2020-0 Yes 5mg Take 5 mg Un pierre 5 mg tablet 6-22 by mouth ity of 20:31: daily. [address] enalapril 2020-0 Yes 10mg Take 10 mg Un pierre 10 mg 6-22 by mouth ity of tablet 20:31: daily. [address] amLODIPine 2020-0 Yes 5mg Take 5 mg Un pierre 5 mg tablet 6-22 by mouth ity of 20:31: daily. [address] enalapril 2020-0 Yes 10mg Take 10 mg Un pier[facility] 10 mg 6-22 by mouth ity of tablet 20:31: daily. [address] amLODIPine 2020-0 Yes 5mg Take 5 mg Un pier[facility] 5 mg tablet 6-22 by mouth ity of 20:31: daily. [address] enalapril 2020-0 Yes 10mg Take 10 mg Un pierre 10 mg 6-22 by mouth ity of tablet 20:31: daily. [address] amLODIPine 2020-0 Yes 5mg Take 5 mg Un pierre 5 mg tablet 6-22 by mouth ity of 20:31: daily. [address] enalapril 2020-0 Yes 10mg Take 10 mg Un pierre 10 mg 6-22 by mouth ity of tablet 20:31: daily. [address] amLODIPine 2020-0 Yes 5mg Take 5 mg Un pierre 5 mg tablet 6-22 by mouth ity of 20:31: daily. [address] enalapril 2020-0 Yes 10mg Take 10 mg Un pierre 10 mg 6-22 by mouth ity of tablet 20:31: daily. [address] amLODIPine 2020-0 Yes 5mg Take 5 mg Un pierre 5 mg tablet 6-22 by mouth ity of 20:31: daily. [address] enalapril 2020-0 Yes 10mg Take 10 mg Un pierre 10 mg 6-22 by mouth ity of tablet 20:31: daily. [address] amLODIPine 2020-0 Yes 5mg Take 5 mg Un pierre 5 mg tablet 6-22 by mouth ity of 20:31: daily. [address] enalapril 2020-0 Yes 10mg Take 10 mg Un pierre 10 mg 6-22 by mouth ity of tablet 20:31: daily. [address] amLODIPine 2020-0 Yes 5mg Take 5 mg Un pierre 5 mg tablet 6-22 by mouth ity of 20:31: daily. [address] enalapril 2020-0 Yes 10mg Take 10 mg Un pierre 10 mg 6-22 by mouth ity of tablet 20:31: daily. [address] amLODIPine 2020-0 Yes 5mg Take 5 mg Un pierre 5 mg tablet 6-22 by mouth ity of 20:31: daily. [address] enalapril 2020-0 Yes 10mg Take 10 mg Un pierre 10 mg 6-22 by mouth ity of tablet 20:31: daily. [address] amLODIPine 2020-0 Yes 5mg Take 5 mg Un pierre 5 mg tablet 6-22 by mouth ity of 20:31: daily. [address] enalapril 2020-0 Yes 10mg Take 10 mg Un pierre 10 mg 6-22 by mouth ity of tablet 20:31: daily. [address] amLODIPine 2020-0 Yes 5mg Take 5 mg Un pierre 5 mg tablet 6-22 by mouth ity of 20:31: daily. [address] enalapril 2020-0 Yes 10mg Take 10 mg Un pierre 10 mg 6-22 by mouth ity of tablet 20:31: daily. [address] amLODIPine 2020-0 Yes 5mg Take 5 mg Un pierre 5 mg tablet 6-22 by mouth ity of 20:31: daily. [address] enalapril 2020-0 Yes 10mg Take 10 mg Un pierre 10 mg 6-22 by mouth ity of tablet 20:31: daily. [address] amLODIPine 2020-0 Yes 5mg Take 5 mg Un pierre 5 mg tablet 6-22 by mouth ity of 20:31: daily. [address] enalapril 2020-0 Yes 10mg Take 10 mg Un pierre 10 mg 6-22 by mouth ity of tablet 20:31: daily. [address] enalapril 2020-0 Yes 10mg Take 10 mg Un pierre 10 mg 6-22 by mouth ity of tablet 20:31: daily. [address] amLODIPine 2020-0 Yes 5mg Take 5 mg Un pierre 5 mg tablet 6-22 by mouth ity of 20:31: daily. [address] amLODIPine 2020-0 Yes 5mg Take 5 mg Un pierre 5 mg tablet 6-22 by mouth ity of 20:31: daily. [address] enalapril 2020-0 Yes 10mg Take 10 mg Un pierre 10 mg 6-22 by mouth ity of tablet 20:31: daily. [address] amLODIPine 2020-0 Yes 5mg Take 5 mg Un pierre 5 mg tablet 6-22 by mouth ity of 20:31: daily. [address] enalapril 2020-0 Yes 10mg Take 10 mg Un pierre 10 mg 6-22 by mouth ity of tablet 20:31: daily. [address] amLODIPine 2020-0 Yes 5mg Take 5 mg Un pierre 5 mg tablet 6-22 by mouth ity of 20:31: daily. [address] enalapril 2020-0 Yes 10mg Take 10 mg Un pier[facility] 10 mg 6-22 by mouth ity of tablet 20:31: daily. [address] amLODIPine 2020-0 Yes 5mg Take 5 mg Un pierre 5 mg tablet 6-22 by mouth ity of 20:31: daily. [address] ciprofloxac 2019-0 2020- No [id number] 500mg Take 1 Univers in HCl 500 6-22 06-22 tablet by ity of mg tablet 00:00: 00:00 [facility] 00 :00 every 12 Medical ([facility]) Branch hours for 3 days. Start 1 day before procedure. ciprofloxac 2020-0 2020- No [id number] 500mg Take 1 Univers in HCl 500 6-22 06-22 tablet by ity of mg tablet 00:00: 00:00 [facility] 00 :00 every 12 Medical (twelve) Branch hours for 3 days. Start 1 day before procedure. ciprofloxac 2020-0 2020- No [id number] 500mg Take 1 Univers in HCl 500 6-22 06-22 tablet by ity of mg tablet 00:00: 00:00 [facility] 00 :00 every 12 Medical (twelve) Branch hours for 3 days. Start 1 day before procedure. ciprofloxac 2020-0 2020- No [id number] 500mg Take 1 Univers in HCl 500 6-22 06-22 tablet by ity of mg tablet 00:00: 00:00 [facility] 00 :00 every 12 Medical ([facility]) Branch hours for 3 days. Start 1 day before procedure. No known No Univers medications ity of [facility] Immunizations Ordered Filled Immunization Date Status Comments Sour e Immunization Name Name [employer] SARS-CoV-2 2020-05-31 Completed Univer sity of Vaccination 00:00:00 Sita Wagner [facility]ra SARS-CoV-2 2020-05-31 Completed Univer sity of Vaccination 00:00:00 Sita Wagner [facility] SARS-CoV-2 2020-05-31 Completed Univer sity of Vaccination 00:00:00 Sita ANDINO Bernard [facility] SARS-CoV-2 2020-05-31 Completed Univer sity of Vaccination 00:00:00 Sita ANDINO Bernard [facility] SARS-CoV-2 2020-05-31 Completed Univer sity of Vaccination 00:00:00 Sita ANDINO Bernard [facility] SARS-CoV-2 2020-05-31 Completed Univer sity of Vaccination 00:00:00 [place] Bernard [facility] SARS-CoV-2 2020-05-31 Completed Univer sity of Vaccination 00:00:00 Sita ANDINO Bernard [facility] SARS-CoV-2 2020-05-31 Completed Univer sity of Vaccination 00:00:00 Sita Wagner [facility] remdesivir 2020-03-07 Completed University of 00:00:00 Sita ANDINO [facility] remdesivir 2020-03-07 Completed University of 00:00:00 [place] [facility] 2020-03-07 Completed [facility] 00:00[facility]00 [facility] 2020-03-07 Completed University of 00:00:00 [place] [facility] remdesivir 2020-03-07 Completed University [facility] 00:00[facility]00 [facility] 2020-03-07 Completed [facility] 00:00[facility] 2020-03-07 Completed [facility] 00:00[facility]00 [facility] 2020-03-07 Completed [facility] 00:00[facility]00 [facility] 2020-03-06 Completed University [facility] 00:00[facility]00 [facility] 2020-03-06 Completed [facility] 00:00[facility]00 [facility] 2020-03-06 Completed [facility] 00:00[facility]00 [facility] 2020-03-06 Completed University of 00:00:00 Sita ANDINO [facility] remdesivir 2020-03-06 Completed University of 00:00:00 Sita ANDINO [facility] remdesivir 2020-03-06 Completed University of 00:00:00 Sita ANDINO Dave [facility] remdesivir 2020-03-06 Completed University of 00:00:00 Sita ANDINO [facility] remdesivir 2020-03-06 Completed University of 00:00:00 Sita ANDINO [facility] remdesivir 2020-03-05 Completed University of 00:00:00 Sita ANDINO [facility] remdesivir 2020-03-05 Completed University of 00:00:00 [place] Dave [facility] remdesivir 2020-03-05 Completed University of 00:00:00 Sita ANDINO Dave [facility] remdesivir 2020-03-05 Completed University of 00:00:00 Sita ANDINO Dave [facility] remdesivir 2020-03-05 Completed University of 00:00:00 Sita ANDINO Dave [facility] remdesivir 2020-03-05 Completed University of 00:00:00 Sita Gonsaleser [facility] remdesivir 2020-03-05 Completed University of 00:00:00 Sita ANDINO [facility] remdesivir 2020-03-05 Completed University of 00:00:00 Sita ANDINO [facility] remdesivir 2020-03-04 Completed University of 00:00:00 Sita Gonsaleser [facility] remdesivir 2020-03-04 Completed University of 00:00:00 Sita ANDINO [facility] remdesivir 2020-03-04 Completed University of 00:00:00 Sita Gonsaleser [facility] remdesivir 2020-03-04 Completed University of 00:00:00 Sita Gonsaleser [facility] remdesivir 2020-03-04 Completed University of 00:00:00 Sita ANDINO Dave [facility] remdesivir 2020-03-04 Completed University of 00:00:00 Sita Gonsaleser [facility] remdesivir 2020-03-04 Completed University of 00:00:00 Sita Gonsaleser [facility] remdesivir 2020-03-04 Completed University of 00:00:00 Sita ANDINO Dave [facility] remdesivir 2020-03-03 Completed University of 00:00:00 Sita Gonsaleser [facility] remdesivir 2020-03-03 Completed University of 00:00:00 Sita ANDINO [facility] remdesivir 2020-03-03 Completed University of 00:00:00 Sita ANDINO Dave gant [facility] remdesivir 2020-03-03 Completed University of 00:00:00 Sita ANDINO Dave gant [facility] remdesivir 2020-03-03 Completed University of 00:00:00 Sita ANDINO Dave gant [facility] remdesivir 2020-03-03 Completed University of 00:00:00 Sita ANDINO Dave gant [facility] remdesivir 2020-03-03 Completed University of 00:00:00 Sita ANDINO Dave gant [facility] remdesivir 2020-03-03 Completed University of 00:00:00 Sita ANDINO Dave gant [facility] pneumococcal 2020-01-10 Completed polysacchar 00:00:00 Tdap 2020-01-10 Completed 00:00:00 pneumococcal 2020-01-10 Completed polysacchar 00:00:00 Tdap 2020-01-10 Completed 00:00:00 Influenza, 2020-01-01 Completed seasonal, inj 00:00:00 Influenza, 2020-01-01 Completed seasonal, inj 00:00:00 Vital Signs Vital Name Observation Time Observation Value Comments Source WEIGHT 2020-02-13 11:54:00 65.8 kg Systolic blood 2019-10-11 18:23:00 153 mm[Hg] Univer sity of pressure [facility] Diastolic blood 2019-10-11 18:23:00 69 mm[Hg] Unive rsity of [facility] Heart rate 2019-10-11 18:23:00 64 /min [facility] Body temperature 2019-10-11 18:23:00 36.67 Lyn [facility] 2019-10-11 18:23:00 14 /min [facility] Body weight 2019-10-11 18:23:00 65.091 kg [facility] BMI 2019-10-11 18:23:00 23.16 kg/m2 [facility] Oxygen saturation in 2019-10-11 18:23:00 96 /min [facility] Arterial blood by [facility] Pulse oximetry Branch Systolic blood 2019-09-14 15:02:00 150 mm[Hg] Univer sity of pressure [facility] Diastolic blood 2019-09-14 15:02:00 71 mm[Hg] Unive rsity of pressure [facility] Heart rate 2019-09-14 15:02:00 68 /min [facility] [place] [facility] Body temperature 2019-09-14 15:02:00 36.78 Lyn Univ [facility] [place] [facility] Respiratory rate 2019-09-14 15:02:00 15 /min Univ [facility] [place] [facility] Body weight 2019-09-14 15:02:00 68.493 kg [facility] [place] [facility] BMI 2019-09-14 15:02:00 24.37 kg/m2 [facility] [place] [facility] Oxygen saturation in 2019-09-14 15:02:00 98 /min University of Arterial blood by [place] [employer] Pulse oximetry Branch Systolic blood 2019-09-03 20:27:00 156 mm[Hg] Univer sity of pressure [place] [facility] Diastolic blood 2019-09-03 20:27:00 76 mm[Hg] Unive rsity of pressure [place] [facility] [place] Heart rate 2019-09-03 20:27:00 80 /min [facility] [place] [facility] Body temperature 2019-09-03 20:27:00 36.44 Lyn [facility] ersity [facility] [place] [facility] Respiratory rate 2019-09-03 20:27:00 14 /min Univ ersity [facility] [place] [facility] Body height 2019-09-03 20:27:00 167.6 cm [facility] [place] [facility] Body weight 2019-09-03 20:27:00 68.493 kg [facility] [place] [facility] BMI 2019-09-03 20:27:00 24.37 kg/m2 [facility] [place] [facility] Oxygen saturation in 2019-09-03 20:27:00 99 /min University of Arterial blood by [place] [employer] Pulse oximetry Branch BP Systolic 2021-12-11 09:07:00 [...] 20:34:00 58 /min [facility] Oxygen saturation in 2021-05-26 20:34:00 95 /min University of Arterial blood by Sita bond Pulse oximetry [facility] Body temperature 2021-05-26 19:59:39 36.72 Lyn Univ [facility] Respiratory rate 2021-05-26 19:59:39 18 /min Univ ers[facility] Body height 2021-05-23 03:14:00 161 cm [facility] Body weight 2021-05-23 03:14:00 62.8 kg [facility] BMI 2021-05-23 03:14:00 24.23 kg/m2 [facility] BP Systolic 2020-06-27 [...] Performed TROPONIN T 2021-05-26 08:15:00 Yeny Donell [facility] LEFT HEART CATH 2021-05-25 20:45:00 [facility] 2D COMPLETE 2021-05-25 16:20:18 Donell Sosa [facility] TROPONIN T 2021-05-25 09:59:00 Yeny Donell [facility] PROSTATE SPECIFIC ANTIGEN 2021-05-25 09:59:00 Almas Clements [facility] TESTOSTERONE LEVEL 2021-05-25 09:59:00 Almas Clements [facility] ABORH 2021-05-24 18:07:00 [facility] 2021-05-24 18:07:00 [facility] PROT[facility]BIN TIME 2021-05-24 18:07:00 Oma Baldwin [facility] IMMATURE PLATELET FRACTION 2021-05-24 18:07:00 [facility] RETICULOCYTE COUNT 2021-05-24 18:07:[address] [facility] AUTOMATED [facility] CLOT EXPIRATION DATE 2021-05-24 18:07:00 [facility] PHOSPHORUS LEVEL 2021-05-24 09:19:00 Yeny [facility] TROPONIN T 2021-05-24 09:19:00 Yeny [facility] GLUCOSE LEVEL 2021-05-24 09:19:00 Yeny [facility] BLOOD UREA NITROGEN 2021-05-24 09:19:00 Donell Sosa [facility] ELECTROLYTE PANEL 2021-05-24 09:19:00 Yeny [facility] SERUM CREATININE 2021-05-24 09:19:00 Yeny [facility] .GLOMERULAR FILTRATION 2021-05-24 09:19:00 [facility] RATE [facility] CALCIUM LEVEL TOTAL 2021-05-24 09:19:00 Donell Sosa [facility] BASIC METABOLIC PANEL, 2021-05-24 09:19:00 Donell Sosa [facility] CALCIUM TOTAL [facility] MAGNESIUM LEVEL 2021-05-24 09:19:00 Yeny [facility] TROPONIN T 2021-05-24 01:03:00 Denny [facility] EKG, 12-LEAD (PORTABLE) 2021-05-24 00:00:00 Marielle Grubbs [facility] TROPONIN T 2021-05-23 19:05:00 Denny [facility] BASIC METABOLIC PANEL, 2021-05-23 08:00:00 Donell Soas [facility] CALCIUM TOTAL [facility] MAGNESIUM LEVEL 2021-05-23 08:00:00 Yeny [facility] PHOSPHORUS LEVEL 2021-05-23 08:00:00 Yeny [facility] TROPONIN T 2021-05-23 08:00:00 Yeny [facility] GLUCOSE LEVEL 2021-05-23 08:00:00 Yeny [facility] BLOOD UREA NITROGEN 2021-05-23 08:00:00 Donell Sosa [facility] ELECTROLYTE PANEL 2021-05-23 08:00:00 Donell Sosa [facility] SERUM CREATININE 2021-05-23 08:00:00 Yeny [facility] .GLOMERULAR FILTRATION 2021-05-23 08:00:00 Donell Sosa [facility] RATE [facility] CALCIUM LEVEL TOTAL 2021-05-23 08:00:00 Donell Sosa [facility] CT CHEST PULMONARY 2021-05-23 06:00:[address] [facility] EMBOLISM W CONTRAST [facility] CT ABDOMEN PELVIS W 2021-05-23 06:00:00 Donell Sosa [facility] CONTRAST [facility] XR ABDOMEN 2 VW AP W 2021-05-23 00:24:[address] [facility] UPRIGHT AND OR DECUBITUS MD [facility] TROPONIN T 2021-05-22 23:42:00 Donell Sosa [facility] XR CHEST 1 VW 2021-05-22 21:05:54 Latoya Ho [facility] RESPIRATORY VIRAL 2021-05-22 19:53:00 Ltaoya Ho [facility] MULTIPLEX PCR PANEL, T [facility] NASOPHARYNGEAL SWAB Center COMPLETE BLOOD COUNT W/ 2021-05-22 19:53:00 Latoya Ho [facility] DIFFERENTIAL [facility] COMPREHENSIVE METABOLIC 2021-05-22 19:53:00 Latoya Ho [facility] PANEL T [facility] MAGNESIUM LEVEL 2021-05-22 19:53:00 Latoya Ho [facility] PHOSPHORUS LEVEL 2021-05-22 19:53:00 Sachin Kylee, Latoya [facility] CARDIAC PANEL 2021-05-22 19:53:00 Latoya Ho [facility] NT PRO BNP 2021-05-22 19:53:00 Latoya Ho [facility] PROTHROMBIN TIME 2021-05-22 19:53:00 Latoya Ho [facility] APTT 2021-05-22 19:53:00 Latoya Ho [facility] D DIMER 2021-05-22 19:53:00 Latoya Ho [facility] Results CBC 2021-05-22 19:53:00 Latoya Ho [facility] MANUAL DIFFERENTIAL 2021-05-22 19:53:00 Latoya Ho [facility] GLUCOSE LEVEL 2021-05-22 19:53:00 Latoya Ho [facility] BLOOD UREA NITROGEN 2021-05-22 19:53:00 Latoya Ho [facility] ELECTROLYTE PANEL 2021-05-22 19:53:00 Latoya Ho [facility] SERUM CREATININE 2021-05-22 19:53:00 Latoya Ho [facility] .GLOMERULAR FILTRATION 2021-05-22 19:53:00 Latoya Ho [facility] CALCIUM LEVEL TOTAL 2021-05-22 19:53:00 Latoya Ho [facility] ALBUMIN LEVEL 2021-05-22 19:53:00 Latoya Ho [facility] ALKALINE PHOSPHATASE 2021-05-22 19:53:00 [facility] ALAN[facility] AMINOTRANSFERASE 2021-05-22 19:53:00 Lea Ho [facility] ASPARTATE AMINOTRANSFERASE 2021-05-22 19:53:00 Lizeth Ho [facility] TOTAL PROTEIN 2021-05-22 19:53:00 Latoya Ho [facility] FRACTIONATED BILIRUBIN 2021-05-22 19:53:00 Latoya Ho [facility] POC TROPONIN I 2021-05-22 19:49:00 Nida Shaffer [facility] EKG, 12-LEAD (PORTABLE) 2021-05-22 00:00:00 Nida Shaffer [facility] EXTERNAL PROVIDER RECORDS 2019-10-04 05:01:00 Doctor Unassigned, [facility] Name [facility] [place] EXTERNAL PROVIDER RECORDS 2019-10-03 05:01:00 Doctor Unassigned, [facility] Name [facility] [place] EXTERNAL PROVIDER RECORDS 2019-09-28 05:01:00 Doctor Unassigned, [facility] [place] [facility] [place] SURGICAL PATHOLOGY EXAM 2019-09-14 15:52:00 Pako Lopez [facility] DRINKING WATER TECHNICIAN CLINIC ULTRASOUND 2019-09-14 05:01:00 Doctor Valeriy, [facility] Name [facility] [place] PROSTATIC SPECIFIC ANTIGEN 2019-09-03 21:05:00 Pako Lopez [facility] URINE CULTURE 2019-09-03 21:05:00 Pako Lopez [place] [facility] DISCLOSURE AND CONSENT, Doctor Unasschidi, [facility] MEDICAL AND SURGICAL [place] [facility] PROCEDURES Plan of Care Planned Activity Planned Date Details Comments Source Future Scheduled 2022-06-21 COVID-19 Vaccination [facility] [place] Test 11:18:07 (2 - Kendra risk MD Adeola [facility] Cancer series) [code = Center COVID-19 Vaccination (2 - Kendra risk series)] Future Scheduled 2021-12-22 COVID-19 Vaccination [facility] [place] Test 14:15:34 (2 - [place]ra risk MD [facility]ola [facility] Cancer series) [code = Center COVID-19 Vaccination [...] [facility] [place] Test 10:05:40 (2 - Kendar risk MD Anderso n Cancer series) [code = Center COVID-19 Vaccination (2 - Kendra risk series)] Future Scheduled 2021-11-02 COVID-19 Vaccination [facility] [place] Test 10:05:40 (2 - Kendra risk MD Anderso n Cancer series) [code = Center COVID-19 Vaccination (2 - Kendra risk series)] Goal Plan of Care Note [code = 53080-0] Goal Plan of Care Note [code = 74613-0] Goal Plan of Care Note [code = 06705-7] Goal Plan of Care Note [code = 67975-7] Goal Plan of Care Note [code = 30182-7] Goal Plan of Care Note [code = 85305-4] Goal Plan of Care Note [code = 67601-8] Goal Plan of Care Note [code = 61910-5] Goal Plan of Care Note [code = 63004-7] Goal Plan of Care Note [code = 18519-2] Goal Plan of Care Note [code = 88686-5] Goal Plan of Care Note [code = 57592-9] Goal Plan of Care Note [code = 62091-8] Goal Plan of Care Note [code = 11640-6] Goal Plan of Care Note [code = 30712-9] Goal Plan of Care Note [code = 01133-3] Goal Plan of Care Note [code = 31196-7] Goal Plan of Care Note [code = 81849-7] Goal Plan of Care Note [code = 48327-2] Goal Plan of Care Note [code = 37081-1] Goal Plan of Care Note [code = 64865-7] Goal Plan of Care Note [code = 04409-2] Encounters Start End Encounter Admission Attending Care Care Encounter Source Date/Time Date/Time Type Type Clinicians Facility Department ID 2022-06-09 2022-06-09 Shawn Brandon, 1.2.840.1 [id number] Univers 00:00:00 00:00:00 Saleemah 02167.1.1 ity of 3.412.2.7 [place] .3.439883 .8 [facility] 2022-03-19 2022-03-19 Outpatient SFA SFA [id number] 023 [place] 08:21:50 08:21:50 0106 F [place] 2021-12-11 2021-12-11 Outpatient SFA SFA 13848-5 022 [place] 08:53:23 08:53:23 0930 F [place] 2021-12-11 2021-12-11 Outpatient [id number] 00:00:00 00:00:00 Visit [id number] -[id number] [id number] 0806-09-21 2021-12-02 Shawn Brandon, 1.2.840.1 [id number] Univers 00:00:00 00:00:00 Saleemah 45851.1.1 ity of 3.412.2.7 [place] .3.254971 MD Rhoades8 [facility] 2021-12-02 2021-12-02 Shawn Brandon, 1.2.840.1 [id number] Univers 00:00:00 00:00:00 Saleemah 78806.1.1 ity of 3.412.2.7 [place] .3.219369 MD Raza [facility] 2021-11-19 2021-11-19 Shawn Palacios, 1.2.840.1 [id number] Univers 00:00:00 00:00:00 Kye 53377.1.1 ity of 3.412.2.7 [place] .3.476848 MD Raza [facility] 2021-11-19 2021-11-19 Shawn Palacios, 1.2.840.1 [id number] Univers 00:00:00 00:00:00 Kye 25578.1.1 ity of 3.412.2.7 [place] .3.266295 MD Raza [facility] 2021-11-10 2021-11-10 Outpatient [id number] 00:00:00 00:00:00 Visit hc2g-676d h9a-415a-2 -7s54-33m [id number] [id number] 9beea1 2021-11-02 2021-11-02 Shawn Palacios, 1.2.840.1 [id number] Univers 00:00:00 00:00:00 Kye 10353.1.1 ity of 3.412.2.7 [place] .3.606862 MD Raza [facility] 2021-11-02 2021-11-02 Shawn Palacios, 1.2.840.1 [id number] Univers 00:00:00 00:00:00 Kye 37485.1.1 ity of 3.412.2.7 [place] .3.091262 MD Raza [facility] 2021-10-05 2021-10-05 Keenan Jones 1.2.840.1 [id number] Univers 00:00:00 00:00:00 Only Ashley Shankar 80831.1.1 it y of 3.412.2.7 [place] .3.029640 MD Raza [facility] 2021-10-05 2021-10-05 Keenan Jones, 1.2.840.1 [id number] Univers 00:00:00 00:00:00 Only Ashley Shankar 50180.1.1 it y of 3.412.2.7 [place] .3.018801 MD Rhoades8 [facility] 2021-09-23 2021-09-23 Shawn Palacios, 1.2.840.1 [id number] Univers 00:00:00 00:00:00 Kye 84778.1.1 ity of 3.412.2.7 [place] .3.349611 MD Rhoades8 [facility] 2021-09-23 2021-09-23 Shawn Jones, 1.2.840.1 [id number] Univers 00:00:00 00:00:00 Ashley Shankar 07079.1.1 it y of 3.412.2.7 [place] .3.176320 MD Rhoades8 [facility] 2021-09-23 2021-09-23 Shawn Palacios, 1.2.840.1 [id number] Univers 00:00:00 00:00:00 Kye 68569.1.1 ity of 3.412.2.7 [place] .3.962362 MD Rhoades8 [facility] 2021-09-23 2021-09-23 Shawn Jones, 1.2.840.1 [id number] Univers 00:00:00 00:00:00 Ashley Shankar 29242.1.1 it y of 3.412.2.7 [place] .3.692108 MD Rhoades8 [facility] 2021-09-21 2021-09-21 Shawn Palacios, 1.2.840.1 [id number] Univers 00:00:00 00:00:00 Kye 14847.1.1 ity of 3.412.2.7 [place] .3.660557 MD Rhoades8 [facility] 2021-09-21 2021-09-21 Shawn Palacios, 1.2.840.1 [id number] Univers 00:00:00 00:00:00 Kye 39159.1.1 ity of 3.412.2.7 [place] .3.579761 .8 [facility] 2021-05-22 2021-05-26 [facility] Nida Shaffer 1.2.840.1 [id number] Univers 13:28:00 17:49:00 Zoey Pineda 92263.1.1 ity of Srinivas Nguyen 3.412.2.7 [place] Almas Clements .3.185755 Kye Elizondo .8 [facility] 2021-05-25 2021-05-25 Inpatient GILMA HOANG MDA MDA [id number] 14:52:01 17:26:46 OMA [facility] 2021-05-22 2021-05-22 Travel 1.2.840.1 1.2.900.950 [id number] Univers 00:00:00 00:00:00 32629.1.1 350.1.13.41 ity of 3.412.2.7 2.2.7.3.698 [place] rohit .3.784835 084.8 .8 [facility] 2021-05-17 2021-05-17 Shawn Jones, 1.2.840.1 [id number] Univers 00:00:00 00:00:00 Barrett 67314.1.1 ity of 3.412.2.7 [place] .3.583446 .8 [facility] 2021-04-29 2021-04-29 Orders Denny, 1.2.840.1 [id number] Univers 00:00:00 00:00:00 Only Oma 43546.1.1 ity of 3.412.2.7 [place] .3.765724 .8 [facility] 2021-04-29 2021-04-29 Telephone Narciso, 1.2.840.1 [id number] Univers 00:00:00 00:00:00 Serena 75394.1.1 ity of 3.412.2.7 [place] .3.510538 MD Rhoades8 [facility] 2021-03-20 2021-03-20 Orders Zachary, 1.2.840.1 [id number] Univers 00:00:00 00:00:00 Only Maeadeline 67893.1.1 i ty of M 3.412.2.7 [place] .3.095357 MD Rhoades8 [facility] 2021-03-20 2021-03-20 Documentat Zachary, 1.2.840.1 [id number] Univers 00:00:00 00:00:00 ion Maeadeline 09069.1.1 i ty of M 3.412.2.7 [place] .3.367915 MD Raza [facility] 2021-01-12 2021-01-12 Shawn Stuart, 1.2.840.1 [id number] Univers 00:00:00 00:00:00 Serena 51320.1.1 ity of 3.412.2.7 [place] .3.174784 MD Rhoades8 [facility] 2021-01-12 2021-01-12 Keenan Nails, 1.2.840.1 [id number] Univers 00:00:00 00:00:00 Only Kait 28080.1.1 ity of 3.412.2.7 [place] .3.974491 MD Rhoades8 [facility] 2020-11-20 2020-11-20 Shawn Stratton, 1.2.840.1 [id number] Univers 00:00:00 00:00:00 Sanjuanita 70077.1.1 ity of 3.412.2.7 [place] .3.896502 MD Rhoades8 [facility] 2020-11-19 2020-11-19 Vianey Menjivar, 1.2.840.1 [id number] Univers 00:00:00 00:00:00 Hang M 75170.1.1 it y of 3.412.2.7 [place] .3.884209 MD .8 [facility] 2020-11-19 2020-11-19 Nurse Only Otto, 1.2.840.1 [id number] Univers 00:00:00 00:00:00 Hang Rush 55057.1.1 it y of 3.412.2.7 [place] .3.894374 .8 [facility] 2020-10-31 2020-10-31 Outpatient [facility], MDA MDA [id number] MD 11:32:23 11:32:23 LILOEVA Dave so n 2020-10-27 2020-10-27 Outpatient [facility], MDA MDA [id number] 15:24:16 16:01:02 JORJE Wagner rso n 2020-10-17 2020-10-17 Outpatient [facility], MDA MDA [id number] MD 12:53:40 23:59:00 ERWIN Nathan o n 2020-10-16 2020-10-16 Outpatient [facility], MDA MDA [id number] MD 12:10:00 23:59:00 ERWIN Nathan o n 2020-10-15 2020-10-15 Outpatient [facility], MDA MDA [id number] 12:30:00 23:59:00 ERWIN Nathan o n 2020-10-14 2020-10-14 Outpatient [facility], MDA MDA [id number] MD 11:21:52 23:59:00 ERWIN Nathan o n 2020-10-13 2020-10-13 Outpatient [facility], MDA MDA [id number] MD 12:26:36 23:59:00 ERWIN Nathan o n 2020-10-10 2020-10-10 Outpatient [facility], MDA MDA [id number] MD 11:40:24 23:59:00 ERWIN Nathan o n 2020-10-09 2020-10-09 Outpatient [facility], MDA MDA [id number] MD 11:40:00 23:59:00 ERWIN Nathan o n 2020-10-08 2020-10-08 Outpatient [facility], MDA MDA [id number] MD 12:05:00 23:59:00 ERWIN Nathan o n 2020-10-08 2020-10-08 Outpatient [facility], MDA MDA [id number] MD 10:15:00 12:04:00 BOONE-BRANDEN Bernard rso n 2020 2020 Outpatient [facility], MDA MDA [id number] MD 11:55:00 23:59:00 ERWIN Nathan o n 2020 2020 Outpatient [facility], MDA MDA [id number] MD 09:55:27 11:49:27 MARIEBERTA And erso n 2020-10-06 2020-10-06 Outpatient [facility], MDA MDA [id number] MD 11:30:00 23:59:00 ERWIN Nathan o n 2020-10-03 2020-10-03 Outpatient [facility], MDA MDA [id number] MD 10:08:21 23:59:00 ERWIN Nathan o n 2020-10-01 2020-10-01 Outpatient [facility], MDA MDA [id number] MD 10:14:10 23:59:00 BOONE-BRANDEN Bernard rso n 2020-09-30 2020-09-30 Outpatient [facility], MDA MDA [id number] MD 11:27:01 23:59:00 ERWIN Nathan o n 2020-09-29 2020-09-29 Outpatient [facility], MDA MDA [id number] MD 11:30:00 23:59:00 ERWIN Nathan o n 2020-09-26 2020-09-26 Outpatient [facility], MDA MDA [id number] MD 12:00:00 23:59:00 ERWIN Nathan o n 2020-09-25 2020-09-25 Outpatient [facility], MDA MDA [id number] MD 11:50:00 23:59:00 ERWIN Nathan o n 2020-09-24 2020-09-24 Outpatient [facility], MDA MDA [id number] MD 11:07:31 23:59:00 ERWIN Nathan o n 2020-09-24 2020-09-24 Outpatient [facility], MDA MDA [id number] MD 10:15:00 11:06:00 DEDE Wagner rso n 2020-09-24 2020-09-24 Outpatient [facility], MDA MDA [id number] MD 10:00:00 10:14:00 ERWIN Nathan o n 2020-09-24 2020-09-24 Outpatient [facility], MDA MDA [id number] MD 08:56:38 09:14:00 ERWIN Nathan o n 2020-09-23 2020-09-23 Outpatient [facility], MDA MDA [id number] MD 12:01:45 23:59:00 ERWIN Nathan o n 2020-09-22 2020-09-22 Outpatient [facility], MDA MDA [id number] MD 13:23:44 23:59:00 ERWIN Nathan o n 2020-09-22 2020-09-22 Outpatient [facility], MDA MDA [id number] MD 12:16:14 13:22:00 ERWIN Nathan o n 2020-09-19 2020-09-19 Outpatient [facility], MDA MDA [id number] MD 12:00:00 23:59:00 ERWIN Nathan o n 2020-09-18 2020-09-18 Outpatient [facility], MDA MDA [id number] MD 12:00:00 23:59:00 ERWIN Nathan o n 2020-09-17 2020-09-17 Outpatient [facility], MDA MDA [id number] MD 11:01:21 23:59:00 ERWIN Nathan o n 2020-09-17 2020-09-17 Outpatient [facility], MDA MDA [id number] MD 10:15:00 11:00:00 DEDE Wagner rso n 2020-09-16 2020-09-16 Outpatient [facility], MDA MDA [id number] MD 12:07:04 23:59:00 ERWIN Nathan o n 2020-09-12 2020-09-12 Outpatient [facility], MDA MDA [id number] MD 12:40:00 23:59:00 ERWIN Nathan o n 2020-09-11 2020-09-11 Outpatient [facility], MDA MDA [id number] MD 12:40:00 23:59:00 ERWIN Nathan o n 2020-09-10 2020-09-10 Outpatient [facility], MDA MDA [id number] MD 12:35:00 23:59:00 ERWIN Nathan o n 2020-09-10 2020-09-10 Outpatient [facility], MDA MDA [id number] MD 10:10:54 12:34:00 BOONE-BRANDEN Bernard rso n 2020-09-09 2020-09-09 Outpatient [facility], MDA MDA [id number] MD 12:50:00 23:59:00 ERWIN Nathan o n 2020-09-08 2020-09-08 Outpatient [facility], MDA MDA [id number] MD 12:40:00 23:59:00 ERWIN Nathan o n 2020-09-05 2020-09-05 Outpatient [facility], MDA MDA [id number] MD 12:35:00 23:59:00 ERWIN Nathan o n 2020-09-04 2020-09-04 Outpatient [facility], MDA MDA [id number] MD 12:35:00 23:59:00 ERWIN Nathan o n 2020-09-03 2020-09-03 Outpatient [facility], MDA MDA [id number] MD 11:45:56 23:59:00 ERWIN Nathan o n 2020-09-03 2020-09-03 Outpatient [facility], MDA MDA [id number] MD 10:45:00 11:44:00 BOONE-BRANDEN Bernard rso n 2020-09-02 2020-09-02 Outpatient [facility], MDA MDA [id number] MD 10:15:00 23:59:00 ERWIN Nathan o n 2020-09-01 2020-09-01 Outpatient [facility], MDA MDA [id number] MD 11:30:00 23:59:00 ERWIN Nathan o n 2020-07-15 2020-07-15 Outpatient [facility], MDA MDA [id number] MD 14:04:29 14:04:29 SANJUANITA santacruz 2020-07-15 2020-07-15 Outpatient GILMA STRATTON MDA MDA [id number] 11:34:08 11:34:08 SANJUANITA santacruz 2020-05-15 2020-05-15 Outpatient [facility] PDPFFWO DSR COH 00:00:00 00:00:00 FER-2020-04-06 2020-04-06 Patient Bryson [facility] 1.2.840.114 [id number] 00:00:00 00:00:00 [facility] 350.1.13.10 [facility] [place] of [facility] [place] [phone] [address] 2020-02-13 2020-02-13 Outpatient GILMA ELMORE MDA MDA [id number] 11:48:27 16:35:54 ERWIN santacruz 2020-02-13 2020-02-13 Outpatient GILMA STRATTON MDA MDA [id number] 14:24:42 14:24:42 SANJUANITA santacruz 2020-02-13 2020-02-13 Outpatient YASH MDA [id number] 11:45:49 11:46:05 Nathan santacruz 2020-02-11 2020-02-11 Outpatient GILMA ELMORE MDA MDA [id number] 10:30:46 10:59:09 ERWIN santacruz 2019-12-14 2019-12-14 Telephone [facility] ..840.114 [id number] Univers 00:00:00 00:00:00 [facility] [employer] 350.1.13.10 it y of [place] [phone] [facility] [address] 2019-11-26 2019-11-26 Telephone [facility] 1.2.840.114 [id number] Univers 00:00:00 00:00:00 [facility] Health 350.1.13.10 [place] [phone] [address] Office Building 2019-11-16 2019-11-16 Telephone Pako Lopez [facility] 1..840.114 [id number] Univers 00:00:00 00:00:00 [facility] 350.1.13.10 [place] [phone] [address] Office [facility] 2019-11-14 2019-11-14 Telephone Pako Lopez [facility] 1..840.114 [id number] Univers 00:00:00 00:00:00 [facility] 350.1.13.10 [place] [phone] [address] Office [facility] 2019-10-11 2019-10-24 Office Pako Lopez [facility] 1.2.840.114 [id number] Univers 13:15:19 09:14:14 Visit [facility] 350.1.13.10 [place] [phone] [address] Office [facility] 2019-10-24 2019-10-24 Telephone Pako Lopez [facility] 1..840.114 [id number] [id number] Univers 00:00:00 00:00:00 [facility] 350.1.13.10 [place] [phone] [address] 2019-10-24 2019-10-24 Patient Thai Silver 1.2.840.114 [id number] Univers 00:00:00 00:00:00 Outreach Jaclyn E Diaz 350.1.13.10 [place] [phone] [address] 2019-10-24 2019-10-24 Patient Petra Bai Thai 1.2.840.114 [id number] Univers 00:00:00 00:00:00 Outreach E Diaz 350.1.13.10 [place] [phone] [address] 2019-10-24 2019-10-24 Telephone LopezPako [facility] 1.2.840.114 [id number] Univers 00:00:00 00:00:00 [facility] 350.1.13.10 [place] [phone] [address] Office [facility] 2019-10-23 2019-10-23 Telephone [facility] 1.2.840.114 [id number] Univers 00:00:00 00:00:00 [facility] 350.1.13.10 it [place] of [place] [phone] [address] Office [facility] 2019-10-22 2019-10-22 Vianey Lopez [facility] 1.2.840.114 [id number] Univers 00:00:00 00:00:00 [facility] 350.1.13.10 it y of [place] 4[place] [phone] [address] Office [facility] 2019-10-19 2019-10-19 Vianey Lopez [facility] 1.2.840.114 [id number] Univers 00:00:00 00:00:00 un Health 350.1.13.10 it [place] of [place] [phone] [address] Office [facility] 2019-10-11 2019-10-11 Outpatient R [facility] [id number] Univers 13:00:00 13:00:00 ity of [facility] 2019-10-04 2019-10-04 Pako Renteria 1.2.840.114 [id number] Univers 00:00:00 00:00:00 Shun RAHAT 350.1.13.10 it y of [facility] 4.2.7.2.686 [place] as [phone] [facility] [address] 2019-10-04 2019-10-04 Orders Doctor FISHMAN 1.2.840.114 [id number] Univers 00:00:00 00:00:00 Only Unassigned, RAHAT 350.1.13.10 ity of [place] [facility] 4.2.7.2.686 [place] as [id number] [address] 2019-10-03 2019-10-03 Outpatient R PAKO LOPEZ [facility] [id number] Univers 08:00:00 08:00:00 ity of [facility] 2019-10-03 2019-10-03 Telephone Pako Lopez [facility] 1.2.840.114 [id number] Univers 00:00:00 00:00:00 un Health 350.1.13.10 it [place] of [place] [phone] [address] Office Building 2019-10-03 2019-10-03 Orders Doctor KYE 1.2.840.114 [id number] Univers 00:00:00 00:00:00 Only Unassigned, RAHAT 350.1.13.10 ity of [place] [facility] 4.2.7.2.686 [place] as [phone] [address] 2019-09-28 2019-09-28 Orders Doctor KEY 1.2.840.114 [id number] Univers 00:00:00 00:00:00 Only Unassigned, RAHAT 350.1.13.10 ity of [place] [facility] 4.2.7.2.686 [place] [phone] [address] 2019-09-23 2019-09-23 Refill [facility] 1.2.840.114 [id number] Univers 00:00:00 00:00:00 un Health 350.1.13.10 it [place] of [place] [phone] [address] Office Building 2019-09-21 2019-09-21 Chicken Raiser Draw, Clc-Bls Lab [facility] 1.2.8 40.114 [id number] Univers 12:13:57 12:28:57 Visit Pako Lopezleanna [facility] 350.1.13 .10 ity of [place] [phone] [facility] [address] 2019-09-21 2019-09-21 Office [facility] 1.2.840.114 [id number] Univers 11:04:12 11:34:12 Visit [facility] 350.1.13.10 it y of [place] 4[place]2.[place] [phone] [address] Office Building 2019-09-21 2019-09-21 Outpatient R PAKO LOPEZ [facility] [id number] Univers 10:30:00 10:30:00 ity [facility] 2019-09-21 2019-09-21 Telephone LopezPako.2.840.114 [id number] Univers 00:00:00 00:00:00 Shun RAHAT 350.1.13.10 it y of [facility] 4.2.7.2.686 [place] as [phone] [address] 2019-09-21 2019-09-21 Telephone [facility] 1.2.840.114 [id number] Univers 00:00:00 00:00:00 [facility] 350.1.13.10 it y of [facility] 4.2.7.2.[place] [phone] [facility] [address] Office [facility] 2019-09-18 2019-09-18 Telephone Pako Lopez 1.2.840.114 [id number] Univers 00:00:00 00:00:00 Shun RAHAT 350.1.13.10 it y of [facility] 4.2.7.2.686 [place] [phone] [address] 2019-09-18 2019-09-18 Telephone Pako Lopez 1.2.840.114 [id number] Univers 00:00:00 00:00:00 Shun RAHAT 350.1.13.10 it y of [facility] 4.2.7.2.686 [place] [phone] [address] 2019-09-14 2019-09-14 Office [facility] 1.2.840.114 [id number] Univers 09:53:55 10:46:20 Visit [facility] 350.1.13.10 it y of [facility] 4[place]2.[place].2.[place] [phone] [address] Office Building 2019-09-14 2019-09-14 Outpatient R [facility] [id number] Univers 10:00:00 10:00:00 ity of [facility] 2019-09-14 2019-09-14 Orders Doctor KYE 1.2.840.114 [id number] Univers 00:00:00 00:00:00 Only Unassigned, RAHAT 350.1.13.10 ity of [place] [facility] 4.2.7.2.686 [place] [phone] [address] 2019-09-07 2019-09-07 Outpatient R [facility] [id number] Univers 08:00:00 08:00:00 ity of [facility] 2019-09-03 2019-09-06 [facility] 1.2.840.114 [id number] Univers 15:04:24 10:34:22 Visit leanna Health 350.1.13.10 it y of [place] [phone] [address] Office Building 2019-09-05 2019-09-05 Patient Doctor KYE 1Jf2.840.114 [id number] Univers 00:00:00 00:00:00 Secure Msg Unassigned, RAHAT 350.1.13.10 ity of [place] [facility] 4.2.7.2.686 [place] [phone] [address] 2019-09-03 2019-09-03 Chicken Raiser Draw, Clc-Bls Lab [facility] 1.2.8 40.114 [id number] Univers 16:05:21 16:20:21 Visit Pako Lopez [facility] 350.1.13 .10 ity of [place] [phone] [address] Office Building 2019-09-03 2019-09-03 Outpatient R [facility] [id number] Univers 15:00:00 15:00:00 ity of [facility] Orders Doctor KYE Martin.2.840.114 [id number] Univers 00:00:00 00:00:00 Only Unassigned, RAHAT 350.1.13.10 ity of [place] [facility] 4.2.7.2.686 [place] as [phone] Medi adilene [address] Results Test Description Test Time Test Comments Results Result Comments Source TSH, THIRD GENERATION 2021-11-11 10:24:25 Test Item Value Reference Range Interpretation Comme nts TSH, THIRD GENERATION (test 0.921 UIU/ML 0.400-4.100 UNLESS OTHERWISE INDICATED, code = 2821) ALL TESTING PER FORMED ATCLIN[facility] PATH [facility], I [place]. [address] [address] 2899 ECONOMICS INSTRUCTOR: Shu AMAYAMYA GRAY Fer [id number] [facility] [place]. [id number] COMPREHENSIVE METABOLIC [id number] 06:52:03 Test Item Value Reference Range Interpretation Comments GLUCOSE (test code = 99 MG/DL 70-99 2216) BUN (test code = 19 MG/DL 8-23 2207) CREATININE (test 0.80 MG/DL 0.80-1.40 code = 221) eGFR (2020 CKD-EPI) 89 ML/MIN/1.73 >60 (test code = 01657) CALC BUN/CREAT (test 24 RATIO 6-28 code = 2235) SODIUM (test code = 143 MEQ/L 375-334 1038) POTASSIUM (test code 4.1 MEQ/L 3.5-5.4 = [...] 2217) ALT (test code = 14 U/L 50 2218) LIPID [id number] 06:52:03 Test Item Value Reference Range Interpretation [...] MOREINFORMATION , SEE CLIENT ANNOUNCE MENT AT [email or web address] [email or web address] LDL/HDL 0.68 RATIO <3.55 (test code = 223) HEMOGLOBIN [id number] 04:00:23 Test Item Value Reference Range Interpretation Comments HEMOGLOBIN A1c (test code = 96556) 5.6 % 4.2-5.6 CBC W/AUTO DIFF WITH [id number] 02:24:38 Test Item Value Reference Range Interpretation [...] RBCS 0.00 K/UL 0.00-0.11 (test code = 30762) HEMOGLOBIN [id number] 00:00:00 Test Item Value Reference Range Interpretation Comments HEMOGLOBIN A1c (test code = 57577) 5.6 % HEMOGLOBIN [id number] 00:00:00 Test Item Value Reference Range Interpretation Comments HEMOGLOBIN A1c (test code = 49761) 5.6 % HEMOGLOBIN [id number] 00:00:00 Test Item Value Reference Range Interpretation Comments HEMOGLOBIN A1c (test code = 51131) 5.6 % COMPREHENSIVE METABOLIC [id number] 00:00:00 Test Item Value Reference Range Interpretation Comments GLUCOSE (test code = 2217) 99 MG/DL BUN (test code = 2208) 19 MG/DL CREATININE (test code = 2214) 0.80 MG/DL eGFR (2020 CKD-EPI) (test code 89 ML/MIN/1.73 = 21945) CALC BUN/CREAT (test code = 24 RATIO [...] code = 2219) 14 U/L COMPREHENSIVE METABOLIC [id number] 00:00:00 Test Item Value Reference Range Interpretation Comments GLUCOSE (test code = 2217) 99 MG/DL BUN (test code = 2208) 19 MG/DL CREATININE (test code = 2214) 0.80 MG/DL eGFR (2020 CKD-EPI) (test code 89 ML/MIN/1.73 = 70965) CALC BUN/CREAT (test code = 24 RATIO [...] code = 2219) 14 U/L CBC W/AUTO [id number] 00:00:00 Test Item Value Reference Range Interpretation [...] NUCLEATED RBCS (test code = 0.00 K/UL 52160) CBC W/AUTO [id number] 00:00:00 Test Item Value Reference Range Interpretation [...] NUCLEATED RBCS (test code = 0.00 K/UL 53290) CBC W/AUTO [id number] 00:00:00 Test Item Value Reference Range Interpretation [...] NUCLEATED RBCS (test code = 0.00 K/UL 75566) LIPID [id number] 00:00:00 Test Item Value Reference Range Interpretation Comments CHOLESTEROL (test code = 2210) 120 MG/DL TRIGLYCERIDES (test code = 2232) 67 MG/DL HDL CHOLESTEROL (test code = 2220) 63 MG/DL CALC LDL CHOL (test code = 2237) 43 MG/DL RISK RATIO LDL/HDL (test code = 0.68 RATIO 2238) LIPID [id number] 00:00:00 Test Item Value Reference Range Interpretation Comments CHOLESTEROL (test code = 2210) 120 MG/DL TRIGLYCERIDES (test code = 2232) 67 MG/DL HDL CHOLESTEROL (test code = 2220) 63 MG/DL CALC LDL CHOL (test code = 2237) 43 MG/DL RISK RATIO LDL/HDL (test code = 0.68 RATIO 2238) TSH, THIRD [id number] 00:00:00 Test Item Value Reference Range Interpretation Comments TSH, THIRD GENERATION (test code 0.921 UIU/ML = 2821) TSH, THIRD [id number] 00:00:00 Test Item Value Reference Range Interpretation Comments TSH, THIRD GENERATION (test code 0.921 UIU/ML = 2821) TSH, THIRD [id number] 00:00:00 Test Item Value Reference Range Interpretation Comments TSH, THIRD GENERATION (test code 0.921 UIU/ML = 2821) HEMOGLOBIN [id number] 00:00:00 Test Item Value Reference Range Interpretation Comments HEMOGLOBIN A1c (test code = 10766) 5.6 % HEMOGLOBIN [id number] 00:00:00 Test Item Value Reference Range Interpretation Comments HEMOGLOBIN A1c (test code = 76726) 5.6 % HEMOGLOBIN [id number] 00:00:00 Test Item Value Reference Range Interpretation Comments HEMOGLOBIN A1c (test code = 23781) 5.6 % COMPREHENSIVE METABOLIC [id number] 00:00:00 Test Item Value Reference Range Interpretation Comments GLUCOSE (test code = 2217) 99 MG/DL BUN (test code = 2208) 19 MG/DL CREATININE (test code = 2214) 0.80 MG/DL eGFR (2020 CKD-EPI) (test code 89 ML/MIN/1.73 = 64647) CALC BUN/CREAT (test code = 24 RATIO [...] code = 2219) 14 U/L COMPREHENSIVE METABOLIC [id number] 00:00:00 Test Item Value Reference Range Interpretation Comments GLUCOSE (test code = 2217) 99 MG/DL BUN (test code = 2208) 19 MG/DL CREATININE (test code = 2214) 0.80 MG/DL eGFR (2020 CKD-EPI) (test code 89 ML/MIN/1.73 = 82570) CALC BUN/CREAT (test code = 24 RATIO [...] code = 2219) 14 U/L CBC W/AUTO [id number] 00:00:00 Test Item Value Reference Range Interpretation [...] NUCLEATED RBCS (test code = 0.00 K/UL 73241) CBC W/AUTO [id number] 00:00:00 Test Item Value Reference Range Interpretation [...] NUCLEATED RBCS (test code = 0.00 K/UL 96622) CBC W/AUTO [id number] 00:00:00 Test Item Value Reference Range Interpretation [...] NUCLEATED RBCS (test code = 0.00 K/UL 74279) LIPID [id number] 00:00:00 Test Item Value Reference Range Interpretation Comments CHOLESTEROL (test code = 2210) 120 MG/DL TRIGLYCERIDES (test code = 2232) 67 MG/DL HDL CHOLESTEROL (test code = 2220) 63 MG/DL CALC LDL CHOL (test code = 2237) 43 MG/DL RISK RATIO LDL/HDL (test code = 0.68 RATIO 2238) LIPID [id number] 00:00:00 Test Item Value Reference Range Interpretation Comments CHOLESTEROL (test code = 2210) 120 MG/DL TRIGLYCERIDES (test code = 2232) 67 MG/DL HDL CHOLESTEROL (test code = 2220) 63 MG/DL CALC LDL CHOL (test code = 2237) 43 MG/DL RISK RATIO LDL/HDL (test code = 0.68 RATIO 2238) TSH, THIRD [id number] 00:00:00 Test Item Value Reference Range Interpretation Comments TSH, THIRD GENERATION (test code 0.921 UIU/ML = 2821) TSH, THIRD [id number] 00:00:00 Test Item Value Reference Range Interpretation Comments TSH, THIRD GENERATION (test code 0.921 UIU/ML = 2821) TSH, THIRD [id number] 00:00:00 Test Item Value Reference Range Interpretation Comments TSH, THIRD GENERATION (test code 0.921 UIU/ML = 2821) Troponin T (In-House)2021-05-26 09:07:11 Test Item Value Reference Range Interpretation Comments Troponin T (test code = 79 ng/L See_Comment A < 19 ng/L Suggest 45964-4) retest at 3 to 6 hours later [...] res ults. [Automated mess age] The system [employer] generated this result transmitted ref erence range: <=18. Th e reference range was not used to int erpret this result as normal/abnormal . Lab Interpretation Abnormal (test code = 47633-4) [facility]26 09:07:11 Test Item Value Reference Range Interpretation Comments Troponin T (test code = 79 ng/L See_Comment A < 19 ng/L Suggest 54587-0) retest at 3 to 6 hours later to rule o ut myocardial inf arction >= 19 to <=52 n g/L Possible [...] res ults. [Automated mess age] The system [employer] generated this result transmitted ref erence range: <=18. Th e reference range was not used to int erpret this result as normal/abnormal . Lab Interpretation Abnormal (test code = 27666-0) [facility]:07:11 Test Item Value Reference Range Interpretation Comments Troponin T (test code = 79 ng/L See_Comment A < 19 ng/L Suggest 48360-9) retest at 3 to 6 hours later [...] res ults. [Automated mess age] The system [employer] generated this result transmitted ref erence range: <=18. Th e reference range was not used to int erpret this result as normal/abnormal . Lab Interpretation Abnormal (test code = 18356-5) [facility] 09:07:11 Test Item Value Reference Range Interpretation Comments Troponin T (test code = 79 ng/L See_Comment A < 19 ng/L Suggest 93001-5) retest at 3 to 6 hours later [...] a nd falsely low res ults. [Automated Traxian age] The system [employer] generated this result transmitted ref erence range: <=18. Th e reference range was not used to int erpret this result as normal/abnormal . Lab Interpretation Abnormal (test code = 31036-8) [facility] 09:07:11 Test Item Value Reference Range Interpretation Comments Troponin T (test code = 79 ng/L See_Comment A < 19 ng/L Suggest 61552-3) retest at 3 to 6 hours later [...] res ults. [Automated mess age] The system [employer] generated this result transmitted ref erence range: <=18. Th e reference range was not used to int erpret this result as normal/abnormal . Lab Interpretation Abnormal (test code = 04362-9) [facility] 09:07:11 Test Item Value Reference Range Interpretation Comments Troponin T (test code = 79 ng/L See_Comment A < 19 ng/L Suggest 20196-0) retest at 3 to 6 hours later [...] res ults. [Automated mess age] The system [employer] generated this result transmitted ref erence range: <=18. Th e reference range was not used to int erpret this result as normal/abnormal . Lab Interpretation Abnormal (test code = 89119-5) [facility]2021-05-26 09:07:11 Test Item Value Reference Range Interpretation Comments Troponin T (test code = 79 ng/L See_Comment A < 19 ng/L Suggest 35940-3) retest at 3 to 6 hours later [...] res ults. [Automated mess age] The system [employer] generated this result transmitted ref erence range: <=18. Th e reference range was not used to int erpret this result as normal/abnormal . Lab Interpretation Abnormal (test code = 74682-9) [facility] [id number] 11:02:26 Test Item Value Reference Range Interpretation Comments Testoster Tot (test 313 ng/dL 193-740 Referenc e Ranges: code = 2986-8) Male: Age 20 - 49 249 - 836 Age >=50 193 - 740 Female: Age 20 - 49 8 - 48 Age >=50 3 - 41 [facility] [id number] 11:02:26 Test Item Value Reference Range Interpretation Comments Testoster Tot (test 313 ng/dL 193-740 Referenc e Ranges: code = 2986-8) Male: Age 20 - 49 249 - 836 Age >=50 193 - 740 Female: Age 20 - 49 8 - 48 Age & gt;=50 3 - 41 [facility] [id number] 11:02:26 Test Item Value Reference Range Interpretation Comments Testoster Tot (test 313 ng/dL 193-740 Referenc e Ranges: code = 2986-8) Male: Age 20 - 49 249 - 836 Age >=50 193 - 740 Female: Age 20 - 49 8 - 48 Age >=50 3 - 41 [facility] [id number] 11:02:26 Test Item Value Reference Range Interpretation Comments Testoster Tot (test 313 ng/dL 193-740 Referenc e Ranges: code = 2986-8) Male: Age 20 - 49 249 - 836 Age >=50 193 - 740 Female: Age 20 - 49 8 - 48 Age & gt;=50 3 - 41 [facility] [id number] 11:02:26 Test Item Value Reference Range Interpretation Comments Testoster Tot (test 313 ng/dL 193-740 Referenc e Ranges: code = 2986-8) Male: Age 20 - 49 249 - 836 Age >=50 193 - 740 Female: Age 20 - 49 8 - 48 Age & gt;=50 3 - 41 [facility] [id number] 11:02:26 Test Item Value Reference Range Interpretation Comments Testoster Tot (test 313 ng/dL 193-740 Referenc e Ranges: code = 2986-8) Male: Age 20 - 49 249 - 836 Age >=50 193 - 740 Female: Age 20 - 49 8 - 48 Age & gt;=50 3 - 41 [facility] [id number] 11:02:26 Test Item Value Reference Range Interpretation Comments Testoster Tot (test 313 ng/dL 193-740 Referenc e Ranges: code = 2986-8) Male: Age 20 - 49 249 - 836 Age >=50 193 - 740 Female: Age 20 - 49 8 - 48 Age & gt;=50 3 - 41 [facility]Prostate Specific Antigen (PSA) [id number] 11:02:24 Test Item Value Reference Range Interpretation [...] PSA Indication (test Diagnostic code = 9395) [facility]igen ([facility]) [id number] 11:02:24 Test Item Value Reference Range Interpretation [...] PSA Indication (test Diagnostic code = 9395) [facility] ([facility]A) [id number] 11:02:24 Test Item Value Reference Range Interpretation Comments PSA (test code = 0.2 ng/mL 0.0-4.0 Results gre ater than 2857-1) 4519 ng/mL may not be reliable due to matrix effect with ext ended dilution as it exceeds the manufacture r's recommended simon it. Caution should be exercised when interpreting mcgraw ch values and done in conjunction [facility] clinical contex t. PSA Indication (test Diagnostic code = 9395) [facility]state [facility] Antigen (PSA) [id number] 11:02:24 Test Item Value Reference Range Interpretation [...] PSA Indication (test Diagnostic code = 9395) [facility] ([facility]A) [id number] 11:02:24 Test Item Value Reference Range Interpretation Comments PSA (test code = 0.2 ng/mL 0.0-4.0 Results gre ater than 2857-1) 4519 ng/mL may not be reliable due to matrix effect with ext ended dilution as it exceeds the manufacture r's recommended simon it. Caution should be exercised when interpreting mcgraw ch values and done in conjunction [facility] clinical contex t. PSA Indication (test Diagnostic code = 9395) [facility]igen (PSA) [id number] 11:02:24 Test Item Value Reference Range Interpretation [...] PSA Indication (test Diagnostic code = 9395) [facility] ([facility]) [id number] 11:02:24 Test Item Value Reference Range Interpretation Comments PSA (test code = 0.2 ng/mL 0.0-4.0 Results gre ater than 2857-1) 4519 ng/mL may not be reliable due to matrix effect with ext ended dilution as it exceeds the manufacture r's recommended simon it. Caution should be exercised when interpreting mcgraw ch values and done in conjunction [facility] clinical contex t. PSA Indication (test Diagnostic code = 9395) [facility]ABORh[facility] 19:56:03 Test Item Value Reference Range Interpretation Comments ABORh. (test code = 882-1) O POS [facility]ABORh20[facility] 19:56:03 Test Item Value Reference Range Interpretation Comments ABORh. (test code = 882-1) O POS [facility] 19:56:03 Test Item Value Reference Range Interpretation Comments ABORh. (test code = 882-1) O POS [facility] 19:56:03 Test Item Value Reference Range Interpretation Comments ABORh. (test code = 882-1) O POS [facility] 19:56:03 Test Item Value Reference Range Interpretation Comments ABORh. (test code = 882-1) O POS [facility] 19:56:03 Test Item Value Reference Range Interpretation Comments ABORh. (test code = 882-1) O POS [facility] 19:56:03 Test Item Value Reference Range Interpretation Comments ABORh. (test code = 882-1) O POS [facility] CenterClot Expiration [id number] 19:55:59 Test Item Value Reference Range Interpretation Comments T & S Expiration (test code = 05/27/20215317) [facility] Center[facility] Expiration [id number] 19:55:59 Test Item Value Reference Range Interpretation Comments T & S Expiration (test code = 05/27/20215317) [facility] Center[facility] Ex[facility] [id number] 19:55:59 Test Item Value Reference Range Interpretation Comments T & S Expiration (test code = 05/27/20215317) [facility] Ex[facility] [id number] 19:55:59 Test Item Value Reference Range Interpretation Comments T & S Expiration (test code = 05/27/20215317) [facility] Center[facility] Ex[facility] [id number] 19:55:59 Test Item Value Reference Range Interpretation Comments T & S Expiration (test code = 05/27/20215317) [facility] Center[facility] Ex[facility] [id number] 19:55:59 Test Item Value Reference Range Interpretation Comments T & S Expiration (test code = 05/27/20215317) [facility] Center[facility] Ex[facility] [id number] 19:55:59 Test Item Value Reference Range Interpretation Comments T & S Expiration (test code = 05/27/20215317) [facility]eraPTT20[facility] 18:46:29 Test Item Value Reference Range Interpretation Comments aPTT (test code = 34.8 See_Comment [Automate d message] The 15156-1) system which ge nerated this result transmit esteban reference range : 24.7 - 36.8 second(s). The reference range was not used to interpr et this result as cuate l/abnormal. [facility]eraPTT[facility] 18:46:29 Test Item Value Reference Range Interpretation Comments aPTT (test code = 34.8 See_Comment [Automate d message] The 34494-2) system which ge nerated this result transmit esteban reference range : 24.7 - 36.8 second(s). The reference range was not used to interpr et this result as cuate l/abnormal. [facility] 18:46:29 Test Item Value Reference Range Interpretation Comments aPTT (test code = 34.8 See_Comment [Automate d message] The 50977-7) system which ge nerated this result transmit esteban reference range : 24.7 - 36.8 second(s). The reference range was not used to interpr et this result as cuate l/abnormal. [facility] 18:46:29 Test Item Value Reference Range Interpretation Comments aPTT (test code = 34.8 See_Comment [Automate d message] The 91775-8) system which ge nerated this result transmit esteban reference range : 24.7 - 36.8 second(s). The reference range was not used to interpr et this result as cuate l/abnormal. [facility] 18:46:29 Test Item Value Reference Range Interpretation Comments aPTT (test code = 34.8 See_Comment [Automate d message] The 29644-7) system which ge nerated this result transmit esteban reference range : 24.7 - 36.8 second(s). The reference range was not used to interpr et this result as cuate l/abnormal. [facility] 18:46:29 Test Item Value Reference Range Interpretation Comments aPTT (test code = 34.8 See_Comment [Automate d message] The 16883-5) system which ge nerated this result transmit esteban reference range : 24.7 - 36.8 second(s). The reference range was not used to interpr et this result as cuate l/abnormal. [facility] 18:46:29 Test Item Value Reference Range Interpretation Comments aPTT (test code = 34.8 See_Comment [Automate d message] The 37534-5) system which ge nerated this result transmit esteban reference range : 24.7 - 36.8 second(s). The reference range was not used to interpr et this result as cuate l/abnormal. [facility] CenterProthrombin [id number] 18:46:28 Test Item Value Reference Range Interpretation Comments PT (test code = 5902-2) 15.5 See_Comment H [Au tomated message] The system [employer] generated this result transmitted ref erence range: 11.5 - 1 3.9 second(s). The reference range was not used to int erpret this result as normal/abnormal . INR (test code = 6301-6) 1.31 0.90-1.10 H Lab Interpretation (test Abnormal code = 73366-4) [facility] CenterProthrombin [id number] 18:46:28 Test Item Value Reference Range Interpretation Comments PT (test code = 5902-2) 15.5 See_Comment H [Au tomated message] The system [employer] generated this result transmitted ref erence range: 11.5 - 1 3.9 second(s). The reference range was not used to int erpret this result as normal/abnormal . INR (test code = 6301-6) 1.31 0.90-1.10 H Lab Interpretation (test Abnormal code = 84461-1) [facility] Center[facility] [id number] 18:46:28 Test Item Value Reference Range Interpretation Comments PT (test code = 5902-2) 15.5 See_Comment H [Au tomated message] The system [employer] generated this result transmitted ref erence range: 11.5 - 1 3.9 second(s). The reference range was not used to int erpret this result as normal/abnormal . INR (test code = 6301-6) 1.31 0.90-1.10 H Lab Interpretation (test Abnormal code = 16148-4) [facility] CenterPro[facility] [id number] 18:46:28 Test Item Value Reference Range Interpretation Comments PT (test code = 5902-2) 15.5 See_Comment H [Au tomated message] The system [employer] generated this result transmitted ref erence range: 11.5 - 1 3.9 second(s). The reference range was not used to int erpret this result as normal/abnormal . INR (test code = 6301-6) 1.31 0.90-1.10 H Lab Interpretation (test Abnormal code = 89220-2) [facility]Pro[facility] [id number] 18:46:28 Test Item Value Reference Range Interpretation Comments PT (test code = 5902-2) 15.5 See_Comment H [Au tomated message] The system [employer] generated this result transmitted ref erence range: 11.5 - 1 3.9 second(s). The reference range was not used to int erpret this result as normal/abnormal . INR (test code = 6301-6) 1.31 0.90-1.10 H Lab Interpretation (test Abnormal code = 61101-9) [facility] CenterProth[facility] [id number] 18:46:28 Test Item Value Reference Range Interpretation Comments PT (test code = 5902-2) 15.5 See_Comment H [Au tomated message] The system [employer] generated this result transmitted ref erence range: 11.5 - 1 3.9 second(s). The reference range was not used to int erpret this result as normal/abnormal . INR (test code = 6301-6) 1.31 0.90-1.10 H Lab Interpretation (test Abnormal code = 90341-7) [facility] Center[facility] [id number] 18:46:28 Test Item Value Reference Range Interpretation Comments PT (test code = 5902-2) 15.5 See_Comment H [Au tomated message] The system [employer] generated this result transmitted ref erence range: 11.5 - 1 3.9 second(s). The reference range was not used to int erpret this result as normal/abnormal . INR (test code = 6301-6) 1.31 0.90-1.10 H Lab Interpretation (test Abnormal code = 24705-1) [facility] Platelet Fraction 2021-05-24 18:31:05 Test Item Value Reference Range Interpretation Comments IPF (test code = 5.6 % 0.8-6.2 5988) BEVERLEY (test code = For patients with BEVERLEY) Platelets lower than 100 k/mm3 [facility] Platelet Fraction 2021-05-24 18:31:05 Test Item Value Reference Range Interpretation Comments IPF (test code = 5.6 % 0.8-6.2 5988) BEVERLEY (test code = For patients with BEVERLEY) Platelets lower than 100 k/mm3 [facility] Platelet Fraction 2021-05-24 18:31:05 Test Item Value Reference Range Interpretation Comments IPF (test code = 5.6 % 0.8-6.2 5988) BEVERLEY (test code = For patients with BEVERLEY) Platelets lower than 100 k/mm3 [facility] Platelet Fraction 2021-05-24 18:31:05 Test Item Value Reference Range Interpretation Comments IPF (test code = 5.6 % 0.8-6.2 5988) BEVERLEY (test code = For patients with BEVERLEY) Platelets lower than 100 k/mm3 [facility] Platelet Fraction 2021-05-24 18:31:05 Test Item Value Reference Range Interpretation Comments IPF (test code = 5.6 % 0.8-6.2 5988) BEVERLEY (test code = For patients with BEVERLEY) Platelets lower than 100 k/mm3 [facility] Platelet Fraction 2021-05-24 18:31:05 Test Item Value Reference Range Interpretation Comments IPF (test code = 5.6 % 0.8-6.2 5988) BEVERLEY (test code = For patients with BEVERLEY) Platelets lower than 100 k/mm3 [facility] Platelet Fraction 2021-05-24 18:31:05 Test Item Value Reference Range Interpretation Comments IPF (test code = 5.6 % 0.8-6.2 5988) BEVERLEY (test code = For patients with BEVERLEY) Platelets lower than 100 k/mm3 [facility] [id number] 18:31:04 Test Item Value Reference Range Interpretation Comments Retic Cnt Auto (test code 1.7 % 0.5-1.5 H = 98318-0) RETHE (test code = 33.7 pg 23.2-37.5 70039-7) IRF (test code = 13229-2) 12.0 % 2.3-18.0 BEVERLEY (test code = BEVERLEY) For patients with Platelets lower than 100 k/mm3 Lab Interpretation (test Abnormal code = 42540-5) [facility] [id number] 18:31:04 Test Item Value Reference Range Interpretation Comments Retic Cnt Auto (test code 1.7 % 0.5-1.5 H = 24809-2) RETHE (test code = 33.7 pg 23.2-37.5 22688-6) IRF (test code = 54412-9) 12.0 % 2.3-18.0 BEVERLEY (test code = BEVERLEY) For patients with Platelets lower than 100 k/mm3 Lab Interpretation (test Abnormal code = 06398-3) [facility] [id number] 18:31:04 Test Item Value Reference Range Interpretation Comments Retic Cnt Auto (test code 1.7 % 0.5-1.5 H = 04183-7) RETHE (test code = 33.7 pg 23.2-37.5 39647-9) IRF (test code = 96615-8) 12.0 % 2.3-18.0 BEVERLEY (test code = BEVERLEY) For patients with Platelets lower than 100 k/mm3 Lab Interpretation (test Abnormal code = 30846-8) [facility] [id number] 18:31:04 Test Item Value Reference Range Interpretation Comments Retic Cnt Auto (test code 1.7 % 0.5-1.5 H = 24506-2) RETHE (test code = 33.7 pg 23.2-37.5 12692-2) IRF (test code = 80386-0) 12.0 % 2.3-18.0 BEVERLEY (test code = BEVERLEY) For patients with Platelets lower than 100 k/mm3 Lab Interpretation (test Abnormal code = 99323-9) [facility] [id number] 18:31:04 Test Item Value Reference Range Interpretation Comments Retic Cnt Auto (test code 1.7 % 0.5-1.5 H = 18951-7) RETHE (test code = 33.7 pg 23.2-37.5 07089-2) IRF (test code = 32457-8) 12.0 % 2.3-18.0 BEVERLEY (test code = BEVERLEY) For patients with Platelets lower than 100 k/mm3 Lab Interpretation (test Abnormal code = 05476-6) [facility] [id number] 18:31:04 Test Item Value Reference Range Interpretation Comments Retic Cnt Auto (test code 1.7 % 0.5-1.5 H = 30643-4) RETHE (test code = 33.7 pg 23.2-37.5 40217-9) IRF (test code = 86249-9) 12.0 % 2.3-18.0 BEVERLEY (test code = BEVERLEY) For patients with Platelets lower than 100 k/mm3 Lab Interpretation (test Abnormal code = 29840-9) [facility] [id number] 18:31:04 Test Item Value Reference Range Interpretation Comments Retic Cnt Auto (test code 1.7 % 0.5-1.5 H = 76058-5) RETHE (test code = 33.7 pg 23.2-37.5 78542-0) IRF (test code = 97170-1) 12.0 % 2.3-18.0 BEVERLEY (test code = BEVERLEY) For patients with Platelets lower than 100 k/mm3 Lab Interpretation (test Abnormal code = 82399-0) [facility] [facility] [id number] 10:22:54 Test Item Value Reference Range Interpretation [...] = 13 See_Comment [Aut omated message] The 28348-4) system which ge nerated this result tra nsmitted reference range : 4 - 14 mEq/L. The refe rence range was not u sed to interpret this result as normal/abnormal . [facility] [id number] 10:22:54 Test Item Value Reference Range Interpretation [...] to interpret this result as normal/abnormal . [facility] [id number] 10:22:54 Test Item Value Reference Range Interpretation [...] to interpret this result as normal/abnormal . [facility] [id number] 10:22:54 Test Item Value Reference Range Interpretation [...] = 13 See_Comment [Aut omated message] The 84958-6) system which ge nerated this result tra nsmitted reference range : 4 - 14 mEq/L. The refe rence range was not u sed to interpret this result as normal/abnormal . [facility] [id number] 10:22:54 Test Item Value Reference Range Interpretation [...] to interpret this result as normal/abnormal . [facility] [id number] 10:22:54 Test Item Value Reference Range Interpretation [...] to interpret this result as normal/abnormal . [facility] [id number] 10:22:54 Test Item Value Reference Range Interpretation [...] to interpret this result as normal/abnormal . [facility]Ph[facility] [id number] 10:22:52 Test Item Value Reference Range Interpretation Comments Phosphorus (test code = 2777-1) 4.3 mg/dL 2.5-4.5 [facility] Kgwyr6242-86-03 10:22:52 Test Item Value Reference Range Interpretation Comments Phosphorus (test code = 2777-1) 4.3 mg/dL 2.5-4.5 [facility] [id number] 10:22:52 Test Item Value Reference Range Interpretation Comments Phosphorus (test code = 2777-1) 4.3 mg/dL 2.5-4.5 [facility] [id number] 10:22:52 Test Item Value Reference Range Interpretation Comments Phosphorus (test code = 2777-1) 4.3 mg/dL 2.5-4.5 [facility] [id number] 10:22:52 Test Item Value Reference Range Interpretation Comments Phosphorus (test code = 2777-1) 4.3 mg/dL 2.5-4.5 [facility] [id number] 10:22:52 Test Item Value Reference Range Interpretation Comments Phosphorus (test code = 2777-1) 4.3 mg/dL 2.5-4.5 [facility] [id number] 10:22:52 Test Item Value Reference Range Interpretation Comments Phosphorus (test code = 2777-1) 4.3 mg/dL 2.5-4.5 [facility] Wvahc1066-48-86 10:22:51 Test Item Value Reference Range Interpretation Comments Calcium Lvl (test code = 15981-0) 8.9 mg/dL 8.4-10.2 [facility] Mjlam4086-95-93 10:22:51 Test Item Value Reference Range Interpretation Comments Calcium Lvl (test code = 40291-4) 8.9 mg/dL 8.4-10.2 [facility] [id number] 10:22:51 Test Item Value Reference Range Interpretation Comments Calcium Lvl (test code = 02308-5) 8.9 mg/dL 8.4-10.2 [facility] [id number] 10:22:51 Test Item Value Reference Range Interpretation Comments Calcium Lvl (test code = 21913-9) 8.9 mg/dL 8.4-10.2 [facility] Sotsf9794-72-32 10:22:51 Test Item Value Reference Range Interpretation Comments Calcium Lvl (test code = 13080-4) 8.9 mg/dL 8.4-10.2 [facility] Gsmka5042-72-02 10:22:51 Test Item Value Reference Range Interpretation Comments Calcium Lvl (test code = 53544-8) 8.9 mg/dL 8.4-10.2 [facility] Oaijf7408-25-77 10:22:51 Test Item Value Reference Range Interpretation Comments Calcium Lvl (test code = 35164-1) 8.9 mg/dL 8.4-10.2 [facility] [place] 2021-05-24 10:22:50 Test Item Value Reference Range Interpretation Comments eGFR-AA (test code 84 See_Comment Normal eG FR: >= 60 = 06289-7) mL/min/1.73 m2N ote: The eGFR is calculated [...] See_Comment Normal e GFR: >= 60 = 99397-1) mL/min/1.73 m2N ote: The eGFR is calculated [...] bas ed on estimated GFR. Stage Description GF R mL/min/1.73 m21 Normal or h igh GFR [...] interpret th is result as normal/abnormal . [facility] 2021-05-24 10:22:50 Test Item Value Reference Range Interpretation Comments eGFR-AA (test code 84 See_Comment Normal eG FR: >= 60 = 02766-7) mL/min/1.73 m2N ote: The eGFR is calculated [...] See_Comment Normal e GFR: >= 60 = 34221-6) mL/min/1.73 m2N ote: The eGFR is calculated [...] interpret th is result as normal/abnormal . [facility] 2021-05-24 10:22:50 Test Item Value Reference Range Interpretation Comments eGFR-AA (test code 84 See_Comment Normal eG FR: >= 60 = 26177-4) mL/min/1.73 m2N ote: The eGFR is calculated [...] decreased GFR 3 0-444 Severely decreased GFR 15-295 Kidney failure <15 [Au tomated message] The sy stem which generated this result transmitted ref erence range: >=60 mL/min/1.7 3 sq. m. The reference range was not used to interpret th is result as normal/abnormal . eGFR-DARIEN (test code 73 See_Comment Normal e GFR: >= 60 = 92405-2) mL/min/1.73 m2N ote: The eGFR is calculated [...] interpret th is result as normal/abnormal . [facility] 2021-05-24 10:22:50 Test Item Value Reference Range Interpretation Comments eGFR-AA (test code 84 See_Comment Normal eG FR: >= 60 = 55266-3) mL/min/1.73 m2N ote: The eGFR is calculated [...] See_Comment Normal e GFR: >= 60 = 26505-4) mL/min/1.73 m2N ote: The eGFR is calculated [...] interpret th is result as normal/abnormal . [facility] 2021-05-24 10:22:50 Test Item Value Reference Range Interpretation Comments eGFR-AA (test code 84 See_Comment Normal eG FR: >= 60 = 09618-9) mL/min/1.73 m2N ote: The eGFR is calculated [...] See_Comment Normal e GFR: >= 60 = 89110-3) mL/min/1.73 m2N ote: The eGFR is calculated [...] bas ed on estimated GFR. Stage Description GF R mL/min/1.73 m21 Normal or h igh GFR [...] interpret th is result as normal/abnormal . [facility] 2021-05-24 10:22:50 Test Item Value Reference Range Interpretation Comments eGFR-AA (test code 84 See_Comment Normal eG FR: >= 60 = 38033-6) mL/min/1.73 m2N ote: The eGFR is calculated [...] See_Comment Normal e GFR: >= 60 = 40380-5) mL/min/1.73 m2N ote: The eGFR is calculated [...] Kidney failure <15 [Au tomated message] The [employer] stem which generated this result transmitted ref erence range: >=60 mL/min/1.7 3 sq. m. The reference range was not used to interpret th is result as normal/abnormal . [facility] [place] 2021-05-24 10:22:50 Test Item Value Reference Range Interpretation Comments eGFR-AA (test code 84 See_Comment Normal eG FR: >= 60 = 73076-5) mL/min/1.73 m2N ote: The eGFR is calculated [...] See_Comment Normal e GFR: >= 60 = 10307-3) mL/min/1.73 m2N ote: The eGFR is calculated [...] interpret th is result as normal/abnormal . [facility] CenterMagn[facility] Aragu9407-37-15 10:22:48 Test Item Value Reference Range Interpretation Comments Magnesium (test code = 41883-8) 2.1 mg/dL 1.6-2.6 [facility] Zptne8118-16-73 10:22:48 Test Item Value Reference Range Interpretation Comments Magnesium (test code = 32647-9) 2.1 mg/dL 1.6-2.6 [facility]Magn[facility] Llslc5879-38-71 10:22:48 Test Item Value Reference Range Interpretation Comments Magnesium (test code = 11698-3) 2.1 mg/dL 1.6-2.6 [facility] Oryun0650-91-30 10:22:48 Test Item Value Reference Range Interpretation Comments Magnesium (test code = 51576-5) 2.1 mg/dL 1.6-2.6 [facility] Vgjtg6537-93-82 10:22:48 Test Item Value Reference Range Interpretation Comments Magnesium (test code = 66604-0) 2.1 mg/dL 1.6-2.6 [facility]Magn[facility] Hsgbn3899-75-89 10:22:48 Test Item Value Reference Range Interpretation Comments Magnesium (test code = 61950-0) 2.1 mg/dL 1.6-2.6 [facility] Vtwua6557-93-09 10:22:48 Test Item Value Reference Range Interpretation Comments Magnesium (test code = 82580-4) 2.1 mg/dL 1.6-2.6 [facility] CenterGl[facility] [id number] 10:22:47 Test Item Value Reference Range Interpretation [...] diabetes Lab Interpretation (test Abnormal code = 96352-4) [facility] [id number] 10:22:47 Test Item Value Reference Range Interpretation [...] diabetes Lab Interpretation (test Abnormal code = 84559-8) [facility] Lzyyz4174-70-05 10:22:47 Test Item Value Reference Range Interpretation [...] diabetes Lab Interpretation (test Abnormal code = 34350-5) [facility] Xatpo0754-42-45 10:22:47 Test Item Value Reference Range Interpretation [...] diabetes Lab Interpretation (test Abnormal code = 33770-4) [facility]Gl[facility] Ofsmz5791-17-39 10:22:47 Test Item Value Reference Range Interpretation [...] diabetes Lab Interpretation (test Abnormal code = 79831-3) [facility] CenterGl[facility] Mhpis6929-73-96 10:22:47 Test Item Value Reference Range Interpretation [...] diabetes Lab Interpretation (test Abnormal code = 90746-5) [facility] Guigv1187-29-50 10:22:47 Test Item Value Reference Range Interpretation [...] diabetes Lab Interpretation (test Abnormal code = 81754-4) [facility].Serum Gabasvofxe7789-04-73 10:22:46 Test Item Value Reference Range Interpretation Comments Creatinine (test code = 2160-0) 0.98 mg/dL 0.67-1.17 [facility].Serum Cgqmpissip4188-24-84 10:22:46 Test Item Value Reference Range Interpretation Comments Creatinine (test code = 2160-0) 0.98 mg/dL 0.67-1.17 [facility].Serum Nfavscymyi5393-14-17 10:22:46 Test Item Value Reference Range Interpretation Comments Creatinine (test code = 2160-0) 0.98 mg/dL 0.67-1.17 [facility].Serum Hfxfphjqce2869-43-34 10:22:46 Test Item Value Reference Range Interpretation Comments Creatinine (test code = 2160-0) 0.98 mg/dL 0.67-1.17 [facility].Serum Bpckazippb0498-83-97 10:22:46 Test Item Value Reference Range Interpretation Comments Creatinine (test code = 2160-0) 0.98 mg/dL 0.67-1.17 [facility].Serum Uiizjvpvvg6812-05-37 10:22:46 Test Item Value Reference Range Interpretation Comments Creatinine (test code = 2160-0) 0.98 mg/dL 0.67-1.17 [facility].Serum Eigrxwczcp7239-66-17 10:22:46 Test Item Value Reference Range Interpretation Comments Creatinine (test code = 2160-0) 0.98 mg/dL 0.67-1.17 [facility] CenterBUN2022-[facility] 10:22:45 Test Item Value Reference Range Interpretation Comments BUN (test code = 3094-0) 23 mg/dL 6- [facility]2022-[facility]-13 10:22:45 Test Item Value Reference Range Interpretation Comments BUN (test code = 3094-0) 23 mg/dL 6- [facility]2022-[facility]-13 10:22:45 Test Item Value Reference Range Interpretation Comments BUN (test code = 3094-0) 23 mg/dL 6- [facility] 10:22:45 Test Item Value Reference Range Interpretation Comments BUN (test code = 3094-0) 23 mg/dL 6- [facility]20[facility]-13 10:22:45 Test Item Value Reference Range Interpretation Comments BUN (test code = 3094-0) 23 mg/dL 6- [facility]-13 10:22:45 Test Item Value Reference Range Interpretation Comments BUN (test code = 3094-0) 23 mg/dL 6- [facility]2022-[facility]-13 10:22:45 Test Item Value Reference Range Interpretation Comments BUN (test code = 3094-0) 23 mg/dL 6- [facility] CenterRes[facility]al Panel + COVID-19, Nasopharyngeal [id number] 22:18:45 Test Item Value Reference Range Interpretation [...] Not Detected Not Detected (test code = 50528-4) Human Metapneumovirus Not Detected Not Detected (test [...] Detected Not Detected Parapertussis (test code = 31621) Bordetella pertussis Not Detected Not Detected (test [...] including SARS-CoV-2, from a single nasopharyngeal swab (CORE STACKER) specimen obtained from individuals suspected of respiratory [...] that may not be detected by an CORE STACKER specimen. Internal controls are used to monitor [...] and high-complexity tests. The [facility] at [facility], CLIA Accreditation #[id number] and CAP Accreditation #[id number], verified the performance characteristics of this assay. [facility] performs the assay using the GuardiCore System. The BioFire RP2.1 is a real-time, nested multiplexed polymerase chain reaction test designed to simultaneously identify nucleic acids from 22 different viruses and bacteria associated with respiratory tract infection, including SARS-CoV-2, from a single nasopharyngeal swab (CORE STACKER) specimen obtained from individuals suspected of respiratory [...] that may not be detected by an CORE STACKER specimen. Internal controls are used to monitor [...] and high-complexity tests. The [facility] at [facility], CLIA Accreditation #[id number] and CAP Accreditation #[id number], verified the performance characteristics of this assay. [facility] performs the assay using the GuardiCore System. [facility] Center[facility] + COVID-19, Nasopharyngeal [id number] 22:18:45 Test Item Value Reference Range Interpretation [...] Not Detected Not Detected (test code = 46476-4) Human Metapneumovirus Not Detected Not Detected (test [...] Detected Not Detected Parapertussis (test code = 83842) Bordetella pertussis Not Detected Not Detected (test [...] including SARS-CoV-2, from a single nasopharyngeal swab (CORE STACKER) specimen obtained from individuals suspected of respiratory [...] that may not be detected by an CORE STACKER specimen. Internal controls are used to monitor [...] and high-complexity tests. The [facility] at [facility], CLIA Accreditation #[id number] and CAP Accreditation #[id number], verified the performance characteristics of this assay. [facility] performs the assay using the GuardiCore System. The BioFire RP2.1 is a real-time, nested multiplexed polymerase chain reaction test designed to simultaneously identify nucleic acids from 22 different viruses and bacteria associated with respiratory tract infection, including SARS-CoV-2, from a single nasopharyngeal swab (CORE STACKER) specimen obtained from individuals suspected of respiratory [...] that may not be detected by an CORE STACKER specimen. Internal controls are used to monitor [...] and high-complexity tests. The [facility], CLIA Accreditation #[id number] and CAP Accreditation #[id number], verified the performance characteristics of this assay. [facility] performs the assay using the GuardiCore System. [facility] CenterRes[facility] + COVID-19, Nasopharyngeal [id number] 22:18:45 Test Item Value Reference Range Interpretation [...] Not Detected Not Detected (test code = 52459-6) Human Metapneumovirus Not Detected Not Detected (test [...] Detected Not Detected Parapertussis (test code = 38434) Bordetella pertussis Not Detected Not Detected (test [...] including SARS-CoV-2, from a single nasopharyngeal swab (CORE STACKER) specimen obtained from individuals suspected of respiratory [...] that may not be detected by an CORE STACKER specimen. Internal controls are used to monitor [...] and high-complexity tests. The [facility] at [facility], CLIA Accreditation #[id number] and CAP Accreditation #[id number], verified the performance characteristics of this assay. [facility] at [facility] performs the assay using the GuardiCore System. The BioFire RP2.1 is a real-time, nested multiplexed polymerase chain reaction test designed to simultaneously identify nucleic acids from 22 different viruses and bacteria associated with respiratory tract infection, including SARS-CoV-2, from a single nasopharyngeal swab (CORE STACKER) specimen obtained from individuals suspected of respiratory [...] that may not be detected by an CORE STACKER specimen. Internal controls are used to monitor [...] and high-complexity tests. The [facility] at [facility], CLIA Accreditation #[id number] and CAP Accreditation #[id number], verified the performance characteristics of this assay. [facility] performs the assay using the GuardiCore System. [facility] Center[facility] COVID-19, Nasopharyngeal Obix7092-03-23 22:18:45 Test Item Value Reference Range Interpretation [...] Not Detected Not Detected (test code = 30523-7) Human Metapneumovirus Not Detected Not Detected (test [...] Detected Not Detected Parapertussis (test code = 85951) Bordetella pertussis Not Detected Not Detected (test [...] including SARS-CoV-2, from a single nasopharyngeal swab (CORE STACKER) specimen obtained from individuals suspected of respiratory [...] that may not be detected by an CORE STACKER specimen. Internal controls are used to monitor [...] and high-complexity tests. The [facility] at [facility], CLIA Accreditation #[id number] and CAP Accreditation #[id number], verified the performance characteristics of this assay. [facility] at [facility] performs the assay using the GuardiCore System. The BioFire RP2.1 is a real-time, nested multiplexed polymerase chain reaction test designed to simultaneously identify nucleic acids from 22 different viruses and bacteria associated with respiratory tract infection, including SARS-CoV-2, from a single nasopharyngeal swab (CORE STACKER) specimen obtained from individuals suspected of respiratory [...] that may not be detected by an CORE STACKER specimen. Internal controls are used to monitor [...] and high-complexity tests. The [facility] at [facility], CLIA Accreditation #[id number] and CAP Accreditation #[id number], verified the performance characteristics of this assay. [facility] at [facility] performs the assay using the GuardiCore System. [facility] COVID-19, Nasopharyngeal [id number] 22:18:45 Test Item Value Reference Range Interpretation [...] Not Detected Not Detected (test code = 02317-3) Human Metapneumovirus Not Detected Not Detected (test code = 6401) Human Not Detected Not Detected Rhinovirus/Enterovirus (test code = 7212) Influenza A (test code Not Detected Not Detected = 5618) Influenza A H1 (test Not Detected Not Detected code = 5619) Influenza A H1 2008 Not Detected Not Detected (test code = [...] Detected Not Detected Parapertussis (test code = 44476) Bordetella pertussis Not Detected Not Detected (test [...] including SARS-CoV-2, from a single nasopharyngeal swab (CORE STACKER) specimen obtained from individuals suspected of respiratory [...] that may not be detected by an CORE STACKER specimen. Internal controls are used to monitor [...] and high-complexity tests. The [facility] at [facility], CLIA Accreditation #[id number] and CAP Accreditation #[id number], verified the performance characteristics of this assay. [facility] performs the assay using the GuardiCore System. The BioFire RP2.1 is a real-time, nested multiplexed polymerase chain reaction test designed to simultaneously identify nucleic acids from 22 different viruses and bacteria associated with respiratory tract infection, including SARS-CoV-2, from a single nasopharyngeal swab (CORE STACKER) specimen obtained from individuals suspected of respiratory [...] that may not be detected by an CORE STACKER specimen. Internal controls are used to monitor [...] and high-complexity tests. The [facility] at [facility], CLIA Accreditation #[id number] and CAP Accreditation #[id number], verified the performance characteristics of this assay. [facility] performs the assay using the GuardiCore System. [facility] COVID-19, Nasopharyngeal [id number] 22:18:45 Test Item Value Reference Range Interpretation [...] Not Detected Not Detected (test code = 47745-9) Human Metapneumovirus Not Detected Not Detected (test [...] Detected Not Detected Parapertussis (test code = 42593) Bordetella pertussis Not Detected Not Detected (test [...] including SARS-CoV-2, from a single nasopharyngeal swab (CORE STACKER) specimen obtained from individuals suspected of respiratory [...] that may not be detected by an CORE STACKER specimen. Internal controls are used to monitor [...] and high-complexity tests. The [facility] at [facility], CLIA Accreditation #[id number] and CAP Accreditation #[id number], verified the performance characteristics of this assay. [facility] at [facility] performs the assay using the GuardiCore System. The BioFire RP2.1 is a real-time, nested multiplexed polymerase chain reaction test designed to simultaneously identify nucleic acids from 22 different viruses and bacteria associated with respiratory tract infection, including SARS-CoV-2, from a single nasopharyngeal swab (CORE STACKER) specimen obtained from individuals suspected of respiratory [...] that may not be detected by an CORE STACKER specimen. Internal controls are used to monitor [...] and high-complexity tests. The [facility] at [facility], CLIA Accreditation #[id number] and CAP Accreditation #[id number], verified the performance characteristics of this assay. [facility] performs the assay using the GuardiCore System. [facility] COVID-19, Nasopharyngeal [id number] 22:18:45 Test Item Value Reference Range Interpretation [...] Not Detected Not Detected (test code = 65977-1) Human Metapneumovirus Not Detected Not Detected (test [...] Detected Not Detected Parapertussis (test code = 37439) Bordetella pertussis Not Detected Not Detected (test [...] including SARS-CoV-2, from a single nasopharyngeal swab (CORE STACKER) specimen obtained from individuals suspected of respiratory [...] that may not be detected by an CORE STACKER specimen. Internal controls are used to monitor [...] and high-complexity tests. The [facility] at [facility], CLIA Accreditation #[id number] and CAP Accreditation #[id number], verified the performance characteristics of this assay. [facility] at [facility] performs the assay using the GuardiCore System. The BioFire RP2.1 is a real-time, nested multiplexed polymerase chain reaction test designed to simultaneously identify nucleic acids from 22 different viruses and bacteria associated with respiratory tract infection, including SARS-CoV-2, from a single nasopharyngeal swab (CORE STACKER) specimen obtained from individuals suspected of respiratory [...] that may not be detected by an CORE STACKER specimen. Internal controls are used to monitor [...] and high-complexity tests. The [facility] at [facility], CLIA Accreditation #[id number] and CAP Accreditation #[id number], verified the performance characteristics of this assay. [facility] at [facility] performs the assay using the GuardiCore System. [facility] CenterD-bacxt6898-42-12 20:40:38 Test Item Value Reference Range Interpretation Comments D-Dimer (test code 0.38 See_Comment The cut o ff value for = 93552-7) exclusion of ve nous thromboembolism is <0.51 mcg/mL FEUs (fibrinoge n equivalent units). [Automa esteban message] The system [employer] generated this result tra nsmitted reference range : 0.10 - 0.50 mcg/ml FEU. The reference range was not u sed to interpret this result as normal/abnormal . [facility]:40:38 Test Item Value Reference Range Interpretation Comments D-Dimer (test code 0.38 See_Comment The cut o ff value for = 08196-3) exclusion of ve nous thromboembolism is <0.51 mcg/mL FEUs (fibrinoge n equivalent units). [Autom ated message] The system [employer] generated this result tra nsmitted reference range : 0.10 - 0.50 mcg/ml FEU. The reference range was not u sed to interpret this result as normal/abnormal . [facility]namo7758-23-50 20:40:38 Test Item Value Reference Range Interpretation Comments D-Dimer (test code 0.38 See_Comment The cut o ff value for = 11807-5) exclusion of ve nous thromboembolism is <0.51 mcg/mL FEUs (fibrinoge n equivalent units). [Automa esteban message] The system [employer] generated this result tra nsmitted reference range : 0.10 - 0.50 mcg/ml FEU. The reference range was not u sed to interpret this result as normal/abnormal . [facility]gxq8343-12-55 20:40:38 Test Item Value Reference Range Interpretation Comments D-Dimer (test code 0.38 See_Comment The cut o ff value for = 93335-1) exclusion of ve nous thromboembolism is <0.51 mcg/mL FEUs (fibrinoge n equivalent units). [Automa [employer] message] The system [employer] generated this result tra nsmitted reference range : 0.10 - 0.50 mcg/ml FEU. The reference range was not u sed to interpret this result as normal/abnormal . [facility]ripug3243-56-22 20:40:38 Test Item Value Reference Range Interpretation Comments D-Dimer (test code 0.38 See_Comment The cut o ff value for = 93833-3) exclusion of ve nous thromboembolism is <0.51 mcg/mL FEUs (fibrinoge n equivalent units). [FTL SOLAR message] The system [employer] generated this result tra nsmitted reference range : 0.10 - 0.50 mcg/ml FEU. The reference range was not u sed to interpret this result as normal/abnormal . [facility]enptx9477-17-05 20:40:38 Test Item Value Reference Range Interpretation Comments D-Dimer (test code 0.38 See_Comment The cut o ff value for = 00148-3) exclusion of ve nous thromboembolism is <0.51 mcg/mL FEUs (fibrinoge n equivalent units). [FTL SOLAR message] The system [employer] generated this result tra nsmitted reference range : 0.10 - 0.50 mcg/ml FEU. The reference range was not u sed to interpret this result as normal/abnormal . [facility]mwihd8753-54-55 20:40:38 Test Item Value Reference Range Interpretation Comments D-Dimer (test code 0.38 See_Comment The cut o ff value for = 61169-0) exclusion of ve nous thromboembolism is <0.51 mcg/mL FEUs (fibrinoge n equivalent units). [Automa esteban message] The system [employer] generated this result tra nsmitted reference range : 0.10 - 0.50 mcg/ml FEU. The reference range was not u sed to interpret this result as normal/abnormal . [facility] 20:33:25 Test Item Value Reference Range Interpretation Comments NT ProBNP (test code = 538 pg/mL See_Comment H [Aut omated message] 16557-2) The system [employer] generated this result transmit esteban reference range : <=450. The refe rence range was not u sed to interpret th is result as normal/abnormal . Lab Interpretation (test Abnormal code = 69148-2) [facility] 20:33:25 Test Item Value Reference Range Interpretation Comments NT ProBNP (test code = 538 pg/mL See_Comment H [Aut omated message] 49038-3) The system [employer] generated this result transmit esteban reference range : <=450. The refe rence range was not u sed to interpret th is result as normal/abnormal . Lab Interpretation (test Abnormal code = 29572-8) [facility] 20:33:25 Test Item Value Reference Range Interpretation Comments NT ProBNP (test code = 538 pg/mL See_Comment H [Aut omated message] 63973-4) The system [employer] generated this result transmit esteban reference range : <=450. The refe rence range was not u sed to interpret th is result as normal/abnormal . Lab Interpretation (test Abnormal code = 74099-6) [facility] 20:33:25 Test Item Value Reference Range Interpretation Comments NT ProBNP (test code = 538 pg/mL See_Comment H [Aut omated message] 57349-4) The system [employer] generated this result transmit esteban reference range : <=450. The refe rence range was not u sed to interpret th is result as normal/abnormal . Lab Interpretation (test Abnormal code = 65782-5) [facility] 20:33:25 Test Item Value Reference Range Interpretation Comments NT ProBNP (test code = 538 pg/mL See_Comment H [Aut omated message] 87048-0) The system [employer] generated this result transmit esteban reference range : <=450. The refe rence range was not u sed to interpret th is result as normal/abnormal . Lab Interpretation (test Abnormal code = 74896-5) [facility] 20:33:25 Test Item Value Reference Range Interpretation Comments NT ProBNP (test code = 538 pg/mL See_Comment H [Aut omated message] 35572-1) The system [employer] generated this result transmit esteban reference range : <=450. The refe rence range was not u sed to interpret th is result as normal/abnormal . Lab Interpretation (test Abnormal code = 47859-0) [facility] 20:33:25 Test Item Value Reference Range Interpretation Comments NT ProBNP (test code = 538 pg/mL See_Comment H [Aut omated message] 54971-0) The system [employer] generated this result transmit esteban reference range : <=450. The refe rence range was not u sed to interpret th is result as normal/abnormal . Lab Interpretation (test Abnormal code = 29596-3) [facility] Maouj4332-39-45 20:32:34 Test Item Value Reference Range Interpretation Comments CK (test code = 2157-6) 148 U/L 39-308 CK MB (test code = 6.3 ng/mL See_Comment [Automat ed message] 80529-4) The system [employer] generated this result transmitted ref erence range: <=10.4. The reference range was not used to int erpret this result as normal/abnormal . Troponin T (test code = 67 ng/L See_Comment A < 19 ng/L Suggest 05579-2) retest at 3 to 6 hours later [...] res ults. [Automated mess age] The system [employer] generated this result transmitted ref erence range: <=18. Th e reference range was not used to int erpret this result as normal/abnormal . Lab Interpretation Abnormal (test code = 58010-9) [facility] Fmcoa1721-75-04 20:32:34 Test Item Value Reference Range Interpretation Comments CK (test code = 2157-6) 148 U/L 39-308 CK MB (test code = 6.3 ng/mL See_Comment [Automat ed message] 34472-5) The system [employer] generated this result transmitted ref erence range: <=10.4. The reference range was not used to int erpret this result as normal/abnormal . Troponin T (test code = 67 ng/L See_Comment A < 19 ng/L Suggest 14639-6) retest at 3 to 6 hours later [...] res ults. [Automated mess age] The system [employer] generated this result transmitted ref erence range: <=18. Th e reference range was not used to int erpret this result as normal/abnormal . Lab Interpretation Abnormal (test code = 73742-5) [facility] Mgwqu6933-13-10 20:32:34 Test Item Value Reference Range Interpretation Comments CK (test code = 2157-6) 148 U/L 39-308 CK MB (test code = 6.3 ng/mL See_Comment [Automat ed message] 61306-3) The system [employer] generated this result transmitted ref erence range: <=10.4. The reference range was not used to int erpret this result as normal/abnormal . Troponin T (test code = 67 ng/L See_Comment A < 19 ng/L Suggest 60086-6) retest at 3 to 6 hours later [...] res ults. [Automated mess age] The system [employer] generated this result transmitted ref erence range: <=18. Th e reference range was not used to int erpret this result as normal/abnormal . Lab Interpretation Abnormal (test code = 71932-6) [facility] Pczqm4703-69-47 20:32:34 Test Item Value Reference Range Interpretation Comments CK (test code = 2157-6) 148 U/L 39-308 CK MB (test code = 6.3 ng/mL See_Comment [Automat ed message] 29569-8) The system [employer] generated this result transmitted ref erence range: <=10.4. The reference range was not used to int erpret this result as normal/abnormal . Troponin T (test code = 67 ng/L See_Comment A < 19 ng/L Suggest 75025-1) retest at 3 to 6 hours later [...] res ults. [Automated mess age] The system [employer] generated this result transmitted ref erence range: <=18. Th e reference range was not used to int erpret this result as normal/abnormal . Lab Interpretation Abnormal (test code = 06790-5) [facility] Vyxgw9638-91-10 20:32:34 Test Item Value Reference Range Interpretation Comments CK (test code = 2157-6) 148 U/L 39-308 CK MB (test code = 6.3 ng/mL See_Comment [Automat ed message] 44162-7) The system [employer] generated this result transmitted ref erence range: <=10.4. The reference range was not used to int erpret this result as normal/abnormal . Troponin T (test code = 67 ng/L See_Comment A < 19 ng/L Suggest 03903-9) retest at 3 to 6 hours later [...] res ults. [Automated mess age] The system [employer] generated this result transmitted ref erence range: <=18. Th e reference range was not used to int erpret this result as normal/abnormal . Lab Interpretation Abnormal (test code = 83565-5) [facility] Thfjz4845-32-48 20:32:34 Test Item Value Reference Range Interpretation Comments CK (test code = 2157-6) 148 U/L 39-308 CK MB (test code = 6.3 ng/mL See_Comment [Automat ed message] 43701-1) The system [employer] generated this result transmitted ref erence range: <=10.4. The reference range was not used to int erpret this result as normal/abnormal . Troponin T (test code = 67 ng/L See_Comment A < 19 ng/L Suggest 27836-8) retest at 3 to 6 hours later [...] res ults. [Automated mess age] The system [employer] generated this result transmitted ref erence range: <=18. Th e reference range was not used to int erpret this result as normal/abnormal . Lab Interpretation Abnormal (test code = 80008-3) [facility] Wgexp6981-85-02 20:32:34 Test Item Value Reference Range Interpretation Comments CK (test code = 2157-6) 148 U/L 39-308 CK MB (test code = 6.3 ng/mL See_Comment [Automat ed message] 00832-2) The system [employer] generated this result transmitted ref erence range: <=10.4. The reference range was not used to int erpret this result as normal/abnormal . Troponin T (test code = 67 ng/L See_Comment A < 19 ng/L Suggest 75371-6) retest at 3 to 6 hours later [...] res ults. [Automated mess age] The system [employer] generated this result transmitted ref erence range: <=18. Th e reference range was not used to int erpret this result as normal/abnormal . Lab Interpretation Abnormal (test code = 18522-6) [facility] Cwyvaagxy1493-04-57 20:32:19 Test Item Value Reference Range Interpretation [...] above 28 g/L. [Automated message] The system [employer] generated this result transmitted ref erence range: [...] par ameters are outside rep ortable range [facility] CenterFractionated Rqkfprkuy8585-86-19 20:32:19 Test Item Value Reference Range Interpretation [...] above 28 g/L. [Automated message] The system [employer] generated this result transmitted ref erence range: [...] par ameters are outside rep ortable range [facility] CenterFraction[facility] Nryqqiewv3746-45-65 20:32:19 Test Item Value Reference Range Interpretation [...] above 28 g/L. [Automated message] The system [employer] generated this result transmitted ref erence range: [...] par ameters are outside rep ortable range [facility] CenterFraction[facility] Mdaruhims2066-74-13 20:32:19 Test Item Value Reference Range Interpretation [...] above 28 g/L. [Automated message] The system [employer] generated this result transmitted ref erence range: <=1.2. T he reference range was not used to interpr et this result as normal/abnormal . Bili Direct (test <0.2 See_Comment Indocyanin e Green (ICG) code = 1967-09) may cause fal sely elevated biliru bin results. Total and direct bilirubin must not be measured from s amples containing indo cyanine green. [Automat ed message] The [employer] stem which generated this result transmitted ref erence range: <=0.3 mg /dL. The reference range was not used to interpr et this result as normal/abnormal . Bili Indirect (test See Note 0.0-0.9 Unable t o calculate code = 1970-03) Indirect Bili ross result due to some par ameters are outside rep ortable range [facility] Pautgsnbi6037-49-58 20:32:19 Test Item Value Reference Range Interpretation [...] above 28 g/L. [Automated message] The system [employer] generated this result transmitted ref erence range: [...] par ameters are outside rep ortable range [facility] Odjhjwyza2707-40-98 20:32:19 Test Item Value Reference Range Interpretation [...] above 28 g/L. [Automated message] The system [employer] generated this result transmitted ref erence range: [...] par ameters are outside rep ortable range [facility]Fraction[facility] Sqjrdkugb0068-66-11 20:32:19 Test Item Value Reference Range Interpretation [...] above 28 g/L. [Automated message] The system [employer] h generated this result transmitted ref erence [...] par ameters are outside rep ortable range [facility] Nrtbhxp7670-98-39 20:32:16 Test Item Value Reference Range Interpretation Comments Total Protein (test code = 2885-2) 7.1 g/dL 6.4-8.3 [facility] Peinojc7041-86-41 20:32:16 Test Item Value Reference Range Interpretation Comments Total Protein (test code = 2885-2) 7.1 g/dL 6.4-8.3 [facility] Fdqzshd2877-00-97 20:32:16 Test Item Value Reference Range Interpretation Comments Total Protein (test code = 2885-2) 7.1 g/dL 6.4-8.3 [facility] Mbdwnco4916-43-19 20:32:16 Test Item Value Reference Range Interpretation Comments Total Protein (test code = 2885-2) 7.1 g/dL 6.4-8.3 [facility] Drkidub3347-64-09 20:32:16 Test Item Value Reference Range Interpretation Comments Total Protein (test code = 2885-2) 7.1 g/dL 6.4-8.3 [facility] Rkfxulj5779-09-49 20:32:16 Test Item Value Reference Range Interpretation Comments Total Protein (test code = 2885-2) 7.1 g/dL 6.4-8.3 [facility] Xtnbeor2579-90-62 20:32:16 Test Item Value Reference Range Interpretation Comments Total Protein (test code = 2885-2) 7.1 g/dL 6.4-8.3 [facility] CenterAlk[facility] Ejxbfdmnrcm3332-77-40 20:32:14 Test Item Value Reference Range Interpretation Comments Alk Phos (test code = 6768-6) 90 U/L 40-129 [facility]Al[facility] Dydyqqbrstg0822-87-60 20:32:14 Test Item Value Reference Range Interpretation Comments Alk Phos (test code = 6768-6) 90 U/L 40-129 [facility]Al[facility] Sgllhosnhoo4633-20-88 20:32:14 Test Item Value Reference Range Interpretation Comments Alk Phos (test code = 6768-6) 90 U/L 40-129 [facility]Al[facility] Byfwkdxgwva0681-23-95 20:32:14 Test Item Value Reference Range Interpretation Comments Alk Phos (test code = 6768-6) 90 U/L 40-129 [facility]Al[facility] Bweinvebogu6069-23-83 20:32:14 Test Item Value Reference Range Interpretation Comments Alk Phos (test code = 6768-6) 90 U/L 40-129 [facility]Al[facility] Gelucmwtqnk5287-85-38 20:32:14 Test Item Value Reference Range Interpretation Comments Alk Phos (test code = 6768-6) 90 U/L 40-129 [facility]Alk[facility] Tsbaevimyjk3345-31-26 20:32:14 Test Item Value Reference Range Interpretation Comments Alk Phos (test code = 6768-6) 90 U/L 40-129 [facility]ALT2022-03-11 20:32:12 Test Item Value Reference Range Interpretation Comments ALT (test code = 13 U/L See_Comment [Automated message] The 1741-08) system which ge nerated this result transmit esteban reference range : <=41. The reference range was not used to interpr et this result as cuate l/abnormal. [facility]20[facility] 20:32:12 Test Item Value Reference Range Interpretation Comments ALT (test code = 13 U/L See_Comment [Automated message] The 1741-08) system which ge nerated this result transmit esteban reference range : <=41. The reference range was not used to interpr et this result as cuate l/abnormal. [place] 55030022-03-11 20:32:12 Test Item Value Reference Range Interpretation Comments ALT (test code = 13 U/L See_Comment [Automated message] The 1741-08) system which ge nerated this result transmit esteban reference range : <=41. The reference range was not used to interpr et this result as cuate l/abnormal. [place] 55030022-03-11 20:32:12 Test Item Value Reference Range Interpretation Comments ALT (test code = 13 U/L See_Comment [Automated message] The 1741-08) system which ge nerated this result transmit esteban reference range : <=41. The reference range was not used to interpr et this result as cuate l/abnormal. [place] 55030022-03-11 20:32:12 Test Item Value Reference Range Interpretation Comments ALT (test code = 13 U/L See_Comment [Automated message] The 1741-08) system which ge nerated this result transmit esteban reference range : <=41. The reference range was not used to interpr et this result as cuate l/abnormal. [place] 55030022-03-11 20:32:12 Test Item Value Reference Range Interpretation Comments ALT (test code = 13 U/L See_Comment [Automated message] The 1741-08) system which ge nerated this result transmit esteban reference range : <=41. The reference range was not used to interpr et this result as cuate l/abnormal. [place] 55030022-03-11 20:32:12 Test Item Value Reference Range Interpretation Comments ALT (test code = 13 U/L See_Comment [Automated message] The [facility]04-19) system which ge nerated this result transmit esteban reference range : <=41. The reference range was not used to interpr et this result as cuate l/abnormal. [facility] Rnitx9194-81-63 20:32:07 Test Item Value Reference Range Interpretation Comments Albumin Lvl (test code 4.1 See_Comment [Aut omated message] The = 4763) system which ge nerated this result tra nsmitted reference range : 3.5 - 5.2 gm/dL. The refe rence range was not used to interpret this result as normal/abnormal . [facility] Krfsx1152-51-66 20:32:07 Test Item Value Reference Range Interpretation Comments Albumin Lvl (test code 4.1 See_Comment [Aut omated message] The = 4763) system which ge nerated this result tra nsmitted reference range : 3.5 - 5.2 gm/dL. The refe rence range was not used to interpret this result as normal/abnormal . [facility] CenterAlbum[facility] Udhgu3339-12-05 20:32:07 Test Item Value Reference Range Interpretation Comments Albumin Lvl (test code 4.1 See_Comment [Aut omated message] The = 4763) system which ge nerated this result tra nsmitted reference range : 3.5 - 5.2 gm/dL. The refe rence range was not used to interpret this result as normal/abnormal . [facility]Album[facility] Jfoig3633-68-55 20:32:07 Test Item Value Reference Range Interpretation Comments Albumin Lvl (test code 4.1 See_Comment [Aut omated message] The = 4763) system which ge nerated this result tra nsmitted reference range : 3.5 - 5.2 gm/dL. The refe rence range was not used to interpret this result as normal/abnormal . [facility]Album[facility] Bxqxh4861-98-66 20:32:07 Test Item Value Reference Range Interpretation Comments Albumin Lvl (test code 4.1 See_Comment [Aut omated message] The = 4763) system which ge nerated this result tra nsmitted reference range : 3.5 - 5.2 gm/dL. The refe rence range was not used to interpret this result as normal/abnormal . [facility] Mldxt3167-76-47 20:32:07 Test Item Value Reference Range Interpretation Comments Albumin Lvl (test code 4.1 See_Comment [Aut omated message] The = 4763) system which ge nerated this result tra nsmitted reference range : 3.5 - 5.2 gm/dL. The refe rence range was not used to interpret this result as normal/abnormal . [facility] Yjtxa3437-18-38 20:32:07 Test Item Value Reference Range Interpretation Comments Albumin Lvl (test code 4.1 See_Comment [Aut omated message] The = 4401) system which ge nerated this result tra nsmitted reference range : 3.5 - 5.2 gm/dL. The refe rence range was not used to interpret this result as normal/abnormal . [facility] CenterAspartate Aminotransferase 2021-05-22 20:32:06 Test Item Value Reference Range Interpretation Comments AST (test code = 19 U/L See_Comment [Automated message] The 1919-10) system which ge nerated this result transmit esteban reference range : <=40. The reference range was not used to interpr et this result as cuate l/abnormal. [facility] CenterAspartate Aminotransferase 2021-05-22 20:32:06 Test Item Value Reference Range Interpretation Comments AST (test code = 19 U/L See_Comment [Automated message] The 1919-10) system which ge nerated this result transmit esteban reference range : <=40. The reference range was not used to interpr et this result as cuate l/abnormal. [facility] CenterAspart[facility] Aminotransferase 2021-05-22 20:32:06 Test Item Value Reference Range Interpretation Comments AST (test code = 19 U/L See_Comment [Automated message] The 1919-10) system which ge nerated this result transmit esteban reference range : <=40. The reference range was not used to interpr et this result as cuate l/abnormal. [facility] CenterAspart[facility] Aminotransferase 2021-05-22 20:32:06 Test Item Value Reference Range Interpretation Comments AST (test code = 19 U/L See_Comment [Automated message] The 1919-10) system which ge nerated this result transmit esteban reference range : <=40. The reference range was not used to interpr et this result as cuate l/abnormal. [facility] CenterAsp[facility] Aminotransferase 2021-05-22 20:32:06 Test Item Value Reference Range Interpretation Comments AST (test code = 19 U/L See_Comment [Automated message] The 1919-10) system which ge nerated this result transmit esteban reference range : <=40. The reference range was not used to interpr et this result as cuate l/abnormal. [facility]Asp[facility] Amin[facility] 2021-05-22 20:32:06 Test Item Value Reference Range Interpretation Comments AST (test code = 19 U/L See_Comment [Automated message] The 1919-10) system which ge nerated this result transmit esteban reference range : <=40. The reference range was not used to interpr et this result as cuate l/abnormal. [facility] Amin[facility] 2021-05-22 20:32:06 Test Item Value Reference Range Interpretation Comments AST (test code = 19 U/L See_Comment [Automated message] The 1919-10) system which ge nerated this result transmit esteban reference range : <=40. The reference range was not used to interpr et this result as cuate l/abnormal. [facility]Differential[facility] 20:05:31 Test Item Value Reference Range Interpretation Comments Neutrophil % (test code = 77.0 % 42.0-66.0 H 770-8) Lymphocyte % (test code = 11.6 % 24.0-44.0 L 736-9) Monocyte % (test code = 9.2 % 2.0-7.0 H 5905-5) Eosinophil % (test code = 1.2 % 1.0-4.0 713-8) Basophil % (test code = 0.6 % 0.0-1.0 72044-4) IGRE % (test code = 0.4 % 0.0-0.4 IGRE % c ount 97918-2) includes Metamyelocytes, Myelocytes, and Promyelocytes. Neutrophil Abs (test code 5.16 K/uL 1.70-7.30 = 751-8) Lymphocyte Abs (test code 0.78 K/uL 1.00-4.80 L = 731-0) Monocyte Abs (test code = 0.62 K/uL 0.08-0.70 742-7) Eosinophil Abs (test code 0.08 K/uL 0.04-0.40 = 711-2) Basophil Abs (test code = 0.04 K/uL 0.00-0.10 704-7) IG Abs (test code = 0.03 K/uL 0.00-0.04 20807-9) Lab Interpretation (test Abnormal code = 18955-4) [facility] Test Item Value Reference Range Interpretation Comments Neutrophil % (test code = 77.0 % 42.0-66.0 H 770-8) Lymphocyte % (test code = 11.6 % 24.0-44.0 L 736-9) Monocyte % (test code = 9.2 % 2.0-7.0 H 5905-5) Eosinophil % (test code = 1.2 % 1.0-4.0 713-8) Basophil % (test code = 0.6 % 0.0-1.0 87891-7) IGRE % (test code = 0.4 % 0.0-0.4 IGRE % c ount 05134-0) includes Metamyelocytes, Myelocytes, and Promyelocytes. Neutrophil Abs (test code 5.16 K/uL 1.70-7.30 = 751-8) Lymphocyte Abs (test code 0.78 K/uL 1.00-4.80 L = 731-0) Monocyte Abs (test code = 0.62 K/uL 0.08-0.70 742-7) Eosinophil Abs (test code 0.08 K/uL 0.04-0.40 = 711-2) Basophil Abs (test code = 0.04 K/uL 0.00-0.10 704-7) IG Abs (test code = 0.03 K/uL 0.00-0.04 81658-0) Lab Interpretation (test Abnormal code = 14968-6) [facility] Test Item Value Reference Range Interpretation Comments Neutrophil % (test code = 77.0 % 42.0-66.0 H 770-8) Lymphocyte % (test code = 11.6 % 24.0-44.0 L 736-9) Monocyte % (test code = 9.2 % 2.0-7.0 H 5905-5) Eosinophil % (test code = 1.2 % 1.0-4.0 713-8) Basophil % (test code = 0.6 % 0.0-1.0 98708-8) IGRE % (test code = 0.4 % 0.0-0.4 IGRE % c ount 25007-3) includes Metamyelocytes, Myelocytes, and Promyelocytes. Neutrophil Abs (test code 5.16 K/uL 1.70-7.30 = 751-8) Lymphocyte Abs (test code 0.78 K/uL 1.00-4.80 L = 731-0) Monocyte Abs (test code = 0.62 K/uL 0.08-0.70 742-7) Eosinophil Abs (test code 0.08 K/uL 0.04-0.40 = 711-2) Basophil Abs (test code = 0.04 K/uL 0.00-0.10 704-7) IG Abs (test code = 0.03 K/uL 0.00-0.04 74543-4) Lab Interpretation (test Abnormal code = 81006-9) [facility] [id number] 20:05:31 Test Item Value Reference Range Interpretation Comments Neutrophil % (test code = 77.0 % 42.0-66.0 H 770-8) Lymphocyte % (test code = 11.6 % 24.0-44.0 L 736-9) Monocyte % (test code = 9.2 % 2.0-7.0 H 5905-5) Eosinophil % (test code = 1.2 % 1.0-4.0 713-8) Basophil % (test code = 0.6 % 0.0-1.0 83473-2) IGRE % (test code = 0.4 % 0.0-0.4 IGRE % c ount 26337-0) includes Metamyelocytes, Myelocytes, and Promyelocytes. Neutrophil Abs (test code 5.16 K/uL 1.70-7.30 = 751-8) Lymphocyte Abs (test code 0.78 K/uL 1.00-4.80 L = 731-0) Monocyte Abs (test code = 0.62 K/uL 0.08-0.70 742-7) Eosinophil Abs (test code 0.08 K/uL 0.04-0.40 = 711-2) Basophil Abs (test code = 0.04 K/uL 0.00-0.10 704-7) IG Abs (test code = 0.03 K/uL 0.00-0.04 09662-8) Lab Interpretation (test Abnormal code = 55781-9) [facility] Test Item Value Reference Range Interpretation Comments Neutrophil % (test code = 77.0 % 42.0-66.0 H 770-8) Lymphocyte % (test code = 11.6 % 24.0-44.0 L 736-9) Monocyte % (test code = 9.2 % 2.0-7.0 H 5905-5) Eosinophil % (test code = 1.2 % 1.0-4.0 713-8) Basophil % (test code = 0.6 % 0.0-1.0 60674-4) IGRE % (test code = 0.4 % 0.0-0.4 IGRE % c ount 98097-9) includes Metamyelocytes, Myelocytes, and Promyelocytes. Neutrophil Abs (test code 5.16 K/uL 1.70-7.30 = 751-8) Lymphocyte Abs (test code 0.78 K/uL 1.00-4.80 L = 731-0) Monocyte Abs (test code = 0.62 K/uL 0.08-0.70 742-7) Eosinophil Abs (test code 0.08 K/uL 0.04-0.40 = 711-2) Basophil Abs (test code = 0.04 K/uL 0.00-0.10 704-7) IG Abs (test code = 0.03 K/uL 0.00-0.04 34629-9) Lab Interpretation (test Abnormal code = 99955-0) [facility] Test Item Value Reference Range Interpretation Comments Neutrophil % (test code = 77.0 % 42.0-66.0 H 770-8) Lymphocyte % (test code = 11.6 % 24.0-44.0 L 736-9) Monocyte % (test code = 9.2 % 2.0-7.0 H 5905-5) Eosinophil % (test code = 1.2 % 1.0-4.0 713-8) Basophil % (test code = 0.6 % 0.0-1.0 49415-5) IGRE % (test code = 0.4 % 0.0-0.4 IGRE % c ount 13303-3) includes Metamyelocytes, Myelocytes, and Promyelocytes. Neutrophil Abs (test code 5.16 K/uL 1.70-7.30 = 751-8) Lymphocyte Abs (test code 0.78 K/uL 1.00-4.80 L = 731-0) Monocyte Abs (test code = 0.62 K/uL 0.08-0.70 742-7) Eosinophil Abs (test code 0.08 K/uL 0.04-0.40 = 711-2) Basophil Abs (test code = 0.04 K/uL 0.00-0.10 704-7) IG Abs (test code = 0.03 K/uL 0.00-0.04 54826-1) Lab Interpretation (test Abnormal code = 51820-3) [facility] FhypzuKtxnddjygjnk4583-10-11 20:05:31 Test Item Value Reference Range Interpretation Comments Neutrophil % (test code = 77.0 % 42.0-66.0 H 770-8) Lymphocyte % (test code = 11.6 % 24.0-44.0 L 736-9) Monocyte % (test code = 9.2 % 2.0-7.0 H 5905-5) Eosinophil % (test code = 1.2 % 1.0-4.0 713-8) Basophil % (test code = 0.6 % 0.0-1.0 52823-3) IGRE % (test code = 0.4 % 0.0-0.4 IGRE % c ount 60144-0) includes Metamyelocytes, Myelocytes, and Promyelocytes. Neutrophil Abs (test code 5.16 K/uL 1.70-7.30 = 751-8) Lymphocyte Abs (test code 0.78 K/uL 1.00-4.80 L = 731-0) Monocyte Abs (test code = 0.62 K/uL 0.08-0.70 742-7) Eosinophil Abs (test code 0.08 K/uL 0.04-0.40 = 711-2) Basophil Abs (test code = 0.04 K/uL 0.00-0.10 704-7) IG Abs (test code = 0.03 K/uL 0.00-0.04 75410-2) Lab Interpretation (test Abnormal code = 13023-2) [facility] [place].[id number] 20:05:16 Test Item Value Reference Range Interpretation Comments WBC (test code = 6.7 K/uL 4.0-11.0 6690-2) RBC (test code = 789-8) 4.57 See_Comment [Au tomated message] The system [employer] generated this result transmitted ref erence range: 4.50 - 6 .00 M/uL. The refer ence range was not u sed to interpret this result as normal/abnor mal. Hgb (test code = 718-7) 13.5 See_Comment L [Au tomated message] The system [employer] generated this result transmitted ref erence range: 14.0 - 1 8.0 gm/dL. The refe rence range was not u sed to interpret this result as normal/abnor mal. Hct (test code = 42.7 % 40.0-54.0 4544-3) MCV (test code = 787-2) 93 fL 82-98 MCH (test code = 785-6) 29.5 pg 27.0-31.0 MCHC (test code = 31.6 See_Comment [Automate d message] 786-4) The system [employer] generated this result transmitted ref erence range: 31.0 - 3 6.0 gm/dL. The refe rence range was not u sed to interpret this result as normal/abnor mal. RDW-SD (test code = 49.6 fL 35.1-46.3 H 12709-4) RDW-CV (test code = 14.6 % 12.0-15.5 788-0) Platelet count (test 172 K/uL 140-440 code = 777-3) MPV (test code = 11.1 fL 4.0-10.4 H 46348-4) INRBC (test code = 0.0 % See_Comment The INRBC (instrument 98831-8) NRBC) value ref lects the enumeration of nucleated red b lood cells contained in a 200uL sampleof whole blood analyzed by the instrument. Thi s value maydiffer from the NRBC value repo rted in a manual differential,wh ich is based on a 100 cell differential. [Automated mess age] The system [employer] generated this result transmitted ref erence range: <=0.0. T he reference range was not used to int erpret this result as normal/abnormal . Lab Interpretation Abnormal (test code = 89009-9) [facility] [place].[id number] 20:05:16 Test Item Value Reference Range Interpretation Comments WBC (test code = 6.7 K/uL 4.0-11.0 6690-2) RBC (test code = 789-8) 4.57 See_Comment [Au tomated message] The system [employer] generated this result transmitted ref erence range: 4.50 - 6 .00 M/uL. The refer ence range was not u sed to interpret this result as normal/abnor mal. Hgb (test code = 718-7) 13.5 See_Comment L [Au tomated message] The system [employer] generated this result transmitted ref erence range: 14.0 - 1 8.0 gm/dL. The refe rence range was not u sed to interpret this result as normal/abnor mal. Hct (test code = 42.7 % 40.0-54.0 4544-3) MCV (test code = 787-2) 93 fL 82-98 MCH (test code = 785-6) 29.5 pg 27.0-31.0 MCHC (test code = 31.6 See_Comment [Automate d message] 786-4) The system [employer] generated this result transmitted ref erence range: 31.0 - 3 6.0 gm/dL. The refe rence range was not u sed to interpret this result as normal/abnor mal. RDW-SD (test code = 49.6 fL 35.1-46.3 H 94442-3) RDW-CV (test code = 14.6 % 12.0-15.5 788-0) Platelet count (test 172 K/uL 140-440 code = 777-3) MPV (test code = 11.1 fL 4.0-10.4 H 46642-6) INRBC (test code = 0.0 % See_Comment The INRBC (instrument 77918-8) NRBC) value ref lects the enumeration of nucleated red b lood cells contained in a 200uL sampleof whole blood analyzed by the instrument. Thi s value maydiffer from the NRBC value repo rted in a manual differential,wh ich is based on a 100 cell differential. [Automated mess age] The system [employer] generated this result transmitted ref erence range: <=0.0. T he reference range was not used to int erpret this result as normal/abnormal . Lab Interpretation Abnormal (test code = 02344-7) [facility] [place].[id number] 20:05:16 Test Item Value Reference Range Interpretation Comments WBC (test code = 6.7 K/uL 4.0-11.0 6690-2) RBC (test code = 789-8) 4.57 See_Comment [Au tomated message] The system [employer] generated this result transmitted ref erence range: 4.50 - 6 .00 M/uL. The refer ence range was not u sed to interpret this result as normal/abnor mal. Hgb (test code = 718-7) 13.5 See_Comment L [Au tomated message] The system [employer] generated this result transmitted ref erence range: 14.0 - 1 8.0 gm/dL. The refe rence range was not u sed to interpret this result as normal/abnor mal. Hct (test code = 42.7 % 40.0-54.0 4544-3) MCV (test code = 787-2) 93 fL 82-98 MCH (test code = 785-6) 29.5 pg 27.0-31.0 MCHC (test code = 31.6 See_Comment [Automate d message] 786-4) The system [employer] generated this result transmitted ref erence range: 31.0 - 3 6.0 gm/dL. The refe rence range was not u sed to interpret this result as normal/abnor mal. RDW-SD (test code = 49.6 fL 35.1-46.3 H 37988-5) RDW-CV (test code = 14.6 % 12.0-15.5 788-0) Platelet count (test 172 K/uL 140-440 code = 777-3) MPV (test code = 11.1 fL 4.0-10.4 H 32742-1) INRBC (test code = 0.0 % See_Comment The INRBC (instrument 67785-6) NRBC) value ref lects the enumeration of nucleated red b lood cells contained in a 200uL sampleof whole blood analyzed by the instrument. Thi s value maydiffer from the NRBC value repo rted in a manual differential,wh ich is based on a 100 cell differential. [Automated mess age] The system [employer] generated this result transmitted ref erence range: <=0.0. T he reference range was not used to int erpret this result as normal/abnormal . Lab Interpretation Abnormal (test code = 59612-7) [facility] [place].[id number] 20:05:16 Test Item Value Reference Range Interpretation Comments WBC (test code = 6.7 K/uL 4.0-11.0 6690-2) RBC (test code = 789-8) 4.57 See_Comment [Au tomated message] The system [employer] generated this result transmitted ref erence range: 4.50 - 6 .00 M/uL. The refer ence range was not u sed to interpret this result as normal/abnor mal. Hgb (test code = 718-7) 13.5 See_Comment L [Au tomated message] The system [employer] generated this result transmitted ref erence range: 14.0 - 1 8.0 gm/dL. The refe rence range was not u sed to interpret this result as normal/abnor mal. Hct (test code = 42.7 % 40.0-54.0 4544-3) MCV (test code = 787-2) 93 fL 82-98 MCH (test code = 785-6) 29.5 pg 27.0-31.0 MCHC (test code = 31.6 See_Comment [Automate d message] 786-4) The system [employer] generated this result transmitted ref erence range: 31.0 - 3 6.0 gm/dL. The refe rence range was not u sed to interpret this result as normal/abnor mal. RDW-SD (test code = 49.6 fL 35.1-46.3 H 04207-9) RDW-CV (test code = 14.6 % 12.0-15.5 788-0) Platelet count (test 172 K/uL 140-440 code = 777-3) MPV (test code = 11.1 fL 4.0-10.4 H 19986-1) INRBC (test code = 0.0 % See_Comment The INRBC (instrument 76211-4) NRBC) value ref lects the enumeration of nucleated red b lood cells contained in a 200uL sampleof whole blood analyzed by the instrument. Thi s value maydiffer from the NRBC value repo rted in a manual differential,wh ich is based on a 100 cell differential. [Automated mess age] The system [employer] generated this result transmitted ref erence range: <=0.0. T he reference range was not used to int erpret this result as normal/abnormal . Lab Interpretation Abnormal (test code = 23212-6) [facility] [place].[id number] 20:05:16 Test Item Value Reference Range Interpretation Comments WBC (test code = 6.7 K/uL 4.0-11.0 6690-2) RBC (test code = 789-8) 4.57 See_Comment [Au tomated message] The system [employer] generated this result transmitted ref erence range: 4.50 - 6 .00 M/uL. The refer ence range was not u sed to interpret this result as normal/abnor mal. Hgb (test code = 718-7) 13.5 See_Comment L [Au tomated message] The system [employer] generated this result transmitted ref erence range: 14.0 - 1 8.0 gm/dL. The refe rence range was not u sed to interpret this result as normal/abnor mal. Hct (test code = 42.7 % 40.0-54.0 4544-3) MCV (test code = 787-2) 93 fL 82-98 MCH (test code = 785-6) 29.5 pg 27.0-31.0 MCHC (test code = 31.6 See_Comment [Automate d message] 786-4) The system [employer] generated this result transmitted ref erence range: 31.0 - 3 6.0 gm/dL. The refe rence range was not u sed to interpret this result as normal/abnor mal. RDW-SD (test code = 49.6 fL 35.1-46.3 H 46511-8) RDW-CV (test code = 14.6 % 12.0-15.5 788-0) Platelet count (test 172 K/uL 140-440 code = 777-3) MPV (test code = 11.1 fL 4.0-10.4 H 95713-2) INRBC (test code = 0.0 % See_Comment The INRBC (instrument 89490-5) NRBC) value ref lects the enumeration of nucleated red b lood cells contained in a 200uL sampleof whole blood analyzed by the instrument. Thi s value maydiffer from the NRBC value repo rted in a manual differential,wh ich is based on a 100 cell differential. [Automated mess age] The system [employer] generated this result transmitted ref erence range: <=0.0. T he reference range was not used to int erpret this result as normal/abnormal . Lab Interpretation Abnormal (test code = 54502-6) [facility] [place].[id number] 20:05:16 Test Item Value Reference Range Interpretation Comments WBC (test code = 6.7 K/uL 4.0-11.0 6690-2) RBC (test code = 789-8) 4.57 See_Comment [Au tomated message] The system [employer] generated this result transmitted ref erence range: 4.50 - 6 .00 M/uL. The refer ence range was not u sed to interpret this result as normal/abnor mal. Hgb (test code = 718-7) 13.5 See_Comment L [Au tomated message] The system [employer] generated this result transmitted ref erence range: 14.0 - 1 8.0 gm/dL. The refe rence range was not u sed to interpret this result as normal/abnor mal. Hct (test code = 42.7 % 40.0-54.0 4544-3) MCV (test code = 787-2) 93 fL 82-98 MCH (test code = 785-6) 29.5 pg 27.0-31.0 MCHC (test code = 31.6 See_Comment [Automate d message] 786-4) The system [employer] generated this result transmitted ref erence range: 31.0 - 3 6.0 gm/dL. The refe rence range was not u sed to interpret this result as normal/abnor mal. RDW-SD (test code = 49.6 fL 35.1-46.3 H 43831-6) RDW-CV (test code = 14.6 % 12.0-15.5 788-0) Platelet count (test 172 K/uL 140-440 code = 777-3) MPV (test code = 11.1 fL 4.0-10.4 H 14185-1) INRBC (test code = 0.0 % See_Comment The INRBC (instrument 97815-6) NRBC) value ref lects the enumeration of nucleated red b lood cells contained in a 200uL sampleof whole blood analyzed by the instrument. Thi s value maydiffer from the NRBC value repo rted in a manual differential,wh ich is based on a 100 cell differential. [Automated mess age] The system [employer] generated this result transmitted ref erence range: <=0.0. T he reference range was not used to int erpret this result as normal/abnormal . Lab Interpretation Abnormal (test code = 84662-6) [facility] [place].[id number] 20:05:16 Test Item Value Reference Range Interpretation Comments WBC (test code = 6.7 K/uL 4.0-11.0 6690-2) RBC (test code = 789-8) 4.57 See_Comment [Au tomated message] The system [employer] generated this result transmitted ref erence range: 4.50 - 6 .00 M/uL. The refer ence range was not u sed to interpret this result as normal/abnor mal. Hgb (test code = 718-7) 13.5 See_Comment L [Au tomated message] The system [employer] generated this result transmitted ref erence range: 14.0 - 1 8.0 gm/dL. The refe rence range was not u sed to interpret this result as normal/abnor mal. Hct (test code = 42.7 % 40.0-54.0 4544-3) MCV (test code = 787-2) 93 fL 82-98 MCH (test code = 785-6) 29.5 pg 27.0-31.0 MCHC (test code = 31.6 See_Comment [Automate d message] 786-4) The system [employer] generated this result transmitted ref erence range: 31.0 - 3 6.0 gm/dL. The refe rence range was not u sed to interpret this result as normal/abnor mal. RDW-SD (test code = 49.6 fL 35.1-46.3 H 11062-5) RDW-CV (test code = 14.6 % 12.0-15.5 788-0) Platelet count (test 172 K/uL 140-440 code = 777-3) MPV (test code = 11.1 fL 4.0-10.4 H 40584-7) INRBC (test code = 0.0 % See_Comment The INRBC (instrument 94573-5) NRBC) value ref lects the enumeration of nucleated red b lood cells contained in a 200uL sampleof whole blood analyzed by the instrument. Thi s value maydiffer from the NRBC value repo rted in a manual differential,wh ich is based on a 100 cell differential. [Automated mess age] The system [employer] generated this result transmitted ref erence range: <=0.0. T he reference range was not used to int erpret this result as normal/abnormal . Lab Interpretation Abnormal (test code = 89898-8) [facility] Troponin [id number] 20:01:26 Test Item Value Reference Range Interpretation Comments POC CTNI (test code 0.17 ng/mL 0.00-0.08 H This cTn I test is = 15719-0) performed by e Dwabm-hz-Enpv analyzer method ,and the result may be [...] MDA Main Main Ca mpus code = 69755) [facility] nical Lab, [address] [place] [address]; Raw Mill Operator: Nancie Stafford MD Lab Interpretation Abnormal (test code = 69271-5) [facility] Troponin [id number] 20:01:26 Test Item Value Reference Range Interpretation Comments POC CTNI (test code 0.17 ng/mL 0.00-0.08 H This cTn I test is = 35601-0) performed by e Uroes-cg-Ecvr analyzer method ,and the result may be [...] the concentration o f [facility] POC Clean Dev (test Yes code = 6672) Performing Lab (test [facility] mpus code = 34026) [facility] nical Lab, [address] [place] [address]; Raw Mill Operator: Nancie Stafford MD Lab Interpretation Abnormal (test code = 87910-2) [facility] Troponin [id number] 20:01:26 Test Item Value Reference Range Interpretation Comments POC CTNI (test code 0.17 ng/mL 0.00-0.08 H This cTn I test is = 02260-0) performed by e Digvf-xe-Ilpy analyzer method ,and the result may be [...] immunosorbent a ssay (SNEHA) method. Antibodies spec [facility] ac troponin I (cTn [...] the concentration o f cTnI [facility]. POC Clean Dev (test Yes code = 6672) Performing Lab (test [facility] mpus code = 71246) [facility] [address] [facility], [place] [address]; Raw Mill Operator: Nancie Stafford MD Lab Interpretation Abnormal (test code = 44327-2) [facility] Troponin [id number] 20:01:26 Test Item Value Reference Range Interpretation Comments POC CTNI (test code 0.17 ng/mL 0.00-0.08 H This cTn I test is = 77707-4) performed by e Bbtut-xw-Ldld analyzer method ,and the result may be [...] immunosorbent a ssay (SNEHA) method. Antibodies spec [facility] ac troponin I (cTn [...] MDA Main Main Ca mpus code = 70414) [facility] nical Lab, [address] [place] [address]; Raw Mill Operator: Nancie Stafford MD Lab Interpretation Abnormal (test code = 64295-8) [facility] Troponin [id number] 20:01:26 Test Item Value Reference Range Interpretation Comments POC CTNI (test code 0.17 ng/mL 0.00-0.08 H This cTn I test is = 28468-6) performed by e Ykkyx-gd-Kdfe analyzer method ,and the result may be [...] MDA Main Main Ca mpus code = 17258) [facility] nical Lab, [address] [place] [address]; Raw Mill Operator: Nancie Stafford MD Lab Interpretation Abnormal (test code = 17315-5) [facility] Troponin [id number] 20:01:26 Test Item Value Reference Range Interpretation Comments POC CTNI (test code 0.17 ng/mL 0.00-0.08 H This cTn I test is = 35536-6) performed by e Gkoxt-ho-Lvlp analyzer method ,and the result may be different from the Clinical LaboratoryMetho d. Abnormal test r esults are recommended for confirmatorytes t by Clinical labora tory method. Patient s with normal testresu lts but clinically suspicious for acute myocardial infarctionshoul d be tested by [facility] Laboratory meth od. Method descript ion: The [...] Yes code = 6672) Performing Lab (test [facility] Main Main Ca mpus code = 82470) [facility] Cli nical Lab, [address] [place] [address]; Raw Mill Operator: Nancie Stafford MD Lab Interpretation Abnormal (test code = 60591-1) [facility] Troponin [id number] 20:01:26 Test Item Value Reference Range Interpretation Comments POC CTNI (test code 0.17 ng/mL 0.00-0.08 H This cTn I test is = 30280-2) performed by e Azqki-pc-Vutk analyzer method ,and the result may be [...] immunosorbent a ssay (SNEHA) method. Antibodies spec [facility] ac troponin I (cTn [...] the concentration o f cTnI within the [facility] le. POC Clean Dev (test Yes code = 6672) Performing Lab (test [facility] Main Main Ca mpus code = 91476) [facility] nical Lab, [address] [place] [address]; Raw Mill Operator: Nancie Stafford MD Lab Interpretation Abnormal (test code = 98997-3) [facility]:00:00 Test Item Value Reference Range Interpretation Comments GLUCOSE (test code = 2217) 95 MG/DL BUN (test code = 2208) 24 MG/DL CREATININE (test code = 2214) 0.83 MG/DL eGFR AMER. (test code 98 ML/MIN/1.73 = 74392) eGFR NON- AMER. (test 84 ML/MIN/1.73 code = 00217) CALC BUN/CREAT (test code = 29 RATIO [...] code = 2219) 22 U/L COMPREHENSIVE METABOLIC [id number] 00:00:00 Test Item Value Reference Range Interpretation Comments GLUCOSE (test code = 2217) 95 MG/DL BUN (test code = 2208) 24 MG/DL CREATININE (test code = 2214) 0.83 MG/DL eGFR AMER. (test code 98 ML/MIN/1.73 = 44550) eGFR NON- AMER. (test 84 ML/MIN/1.73 code = 53335) CALC BUN/CREAT (test code = 29 RATIO [...] (test code = 2219) 22 U/L LIPID [id number] 00:00:00 Test Item Value Reference Range Interpretation Comments CHOLESTEROL (test code = 2210) 186 MG/DL TRIGLYCERIDES (test code = 2232) 102 MG/DL HDL CHOLESTEROL (test code = 2220) 64 MG/DL CALC LDL CHOL (test code = 2237) 102 MG/DL RISK RATIO LDL/HDL (test code = 1.59 RATIO 2238) LIPID [id number] 00:00:00 Test Item Value Reference Range Interpretation Comments CHOLESTEROL (test code = 2210) 186 MG/DL TRIGLYCERIDES (test code = 2232) 102 MG/DL HDL CHOLESTEROL (test code = 2220) 64 MG/DL CALC LDL CHOL (test code = 2237) 102 MG/DL RISK RATIO LDL/HDL (test code = 1.59 RATIO 2238) COMPREHENSIVE METABOLIC [id number] 00:00:00 Test Item Value Reference Range Interpretation Comments GLUCOSE (test code = 2217) 95 MG/DL BUN (test code = 2208) 24 MG/DL CREATININE (test code = 2214) 0.83 MG/DL eGFR AMER. (test code 98 ML/MIN/1.73 = 48273) eGFR NON- AMER. (test 84 ML/MIN/1.73 code = 60441) CALC BUN/CREAT (test code = 29 RATIO 2235) SODIUM (test code = 2231) 141 MEQ/L POTASSIUM (test code = 2228) 4.5 MEQ/L CHLORIDE (test code = 2215) 103 MEQ/L CARBON DIOXIDE (test code = 26 MEQ/L 2206) CALCIUM (test code = 2209) 9.1 MG/DL [...] code = 2219) 22 U/L COMPREHENSIVE METABOLIC [id number] 00:00:00 Test Item Value Reference Range Interpretation Comments GLUCOSE (test code = 2217) 95 MG/DL BUN (test code = 2208) 24 MG/DL CREATININE (test code = 2214) 0.83 MG/DL eGFR AMER. (test code 98 ML/MIN/1.73 = 57296) eGFR NON- AMER. (test 84 ML/MIN/1.73 code = 65303) CALC BUN/CREAT (test code = 29 RATIO [...] (test code = 2219) 22 U/L LIPID [id number] 00:00:00 Test Item Value Reference Range Interpretation Comments CHOLESTEROL (test code = 2210) 186 MG/DL TRIGLYCERIDES (test code = 2232) 102 MG/DL HDL CHOLESTEROL (test code = 2220) 64 MG/DL CALC LDL CHOL (test code = 2237) 102 MG/DL RISK RATIO LDL/HDL (test code = 1.59 RATIO 2238) LIPID [id number] 00:00:00 Test Item Value Reference Range Interpretation Comments CHOLESTEROL (test code = 2210) 186 MG/DL TRIGLYCERIDES (test code = 2232) 102 MG/DL HDL CHOLESTEROL (test code = 2220) 64 MG/DL CALC LDL CHOL (test code = 2237) 102 MG/DL RISK RATIO LDL/HDL (test code = 1.59 RATIO 2238) CBC W/AUTO [id number] 00:00:00 Test Item Value Reference Range Interpretation [...] code = 1015) 214 K/UL CBC W/AUTO [id number] 00:00:00 Test Item Value Reference Range Interpretation [...] code = 1015) 214 K/UL CBC W/AUTO [id number] 00:00:00 Test Item Value Reference Range Interpretation [...] code = 1015) 214 K/UL CBC W/AUTO [id number] 00:00:00 Test Item Value Reference Range Interpretation [...] code = 1015) 214 K/UL CBC W/AUTO [id number] 00:00:00 Test Item Value Reference Range Interpretation [...] code = 1015) 214 K/UL CBC W/AUTO [id number] 00:00:00 Test Item Value Reference Range Interpretation [...] COUNT (test code = 1015) 214 K/UL PSA, [id number] 00:00:00 Test Item Value Reference Range Interpretation Comments PSA, TOTAL (test code = 2606) 16.70 NG/ML HEMOGLOBIN [id number] 00:00:00 Test Item Value Reference Range Interpretation Comments HEMOGLOBIN A1c (test code = 64405) 5.5 % HEMOGLOBIN [id number] 00:00:00 Test Item Value Reference Range Interpretation Comments HEMOGLOBIN A1c (test code = 31082) 5.5 % HEMOGLOBIN [id number] 00:00:00 Test Item Value Reference Range Interpretation Comments HEMOGLOBIN A1c (test code = 28535) 5.5 % CBC W/AUTO [id number] 00:00:00 Test Item Value Reference Range Interpretation [...] code = 1015) 172 K/UL CBC W/AUTO [id number] 00:00:00 Test Item Value Reference Range Interpretation [...] code = 1015) 172 K/UL CBC W/AUTO [id number] 00:00:00 Test Item Value Reference Range Interpretation [...] code = 1015) 172 K/UL COMPREHENSIVE METABOLIC [id number] 00:00:00 Test Item Value Reference Range Interpretation Comments GLUCOSE (test code = 2217) 98 MG/DL BUN (test code = 2208) 15 MG/DL CREATININE (test code = 2214) 0.86 MG/DL eGFR AMER. (test code 96 ML/MIN/1.73 = 77639) eGFR NON- AMER. (test 83 ML/MIN/1.73 code = 97628) CALC BUN/CREAT (test code = 17 RATIO [...] code = 2219) 17 U/L COMPREHENSIVE METABOLIC [id number] 00:00:00 Test Item Value Reference Range Interpretation Comments GLUCOSE (test code = 2217) 98 MG/DL BUN (test code = 2208) 15 MG/DL CREATININE (test code = 2214) 0.86 MG/DL eGFR AMER. (test code 96 ML/MIN/1.73 = 38167) eGFR NON- AMER. (test 83 ML/MIN/1.73 code = 23752) CALC BUN/CREAT (test code = 17 RATIO [...] (test code = 2219) 17 U/L LIPID [id number] 00:00:00 Test Item Value Reference Range Interpretation Comments CHOLESTEROL (test code = 2210) 147 MG/DL TRIGLYCERIDES (test code = 2232) 82 MG/DL HDL CHOLESTEROL (test code = 2220) 58 MG/DL CALC LDL CHOL (test code = 2237) 73 MG/DL RISK RATIO LDL/HDL (test code = 1.26 RATIO 2238) LIPID [id number] 00:00:00 Test Item Value Reference Range Interpretation Comments CHOLESTEROL (test code = 2210) 147 MG/DL TRIGLYCERIDES (test code = 2232) 82 MG/DL HDL CHOLESTEROL (test code = 2220) 58 MG/DL CALC LDL CHOL (test code = 2237) 73 MG/DL RISK RATIO LDL/HDL (test code = 1.26 RATIO 2238) PSA, [id number] 00:00:00 Test Item Value Reference Range Interpretation Comments PSA, TOTAL (test code = 2606) 16.70 NG/ML PSA, [id number] 00:00:00 Test Item Value Reference Range Interpretation Comments PSA, TOTAL (test code = 2606) 16.70 NG/ML PSA, [id number] 00:00:00 Test Item Value Reference Range Interpretation Comments PSA, TOTAL (test code = 2606) 16.70 NG/ML HEMOGLOBIN [id number] 00:00:00 Test Item Value Reference Range Interpretation Comments HEMOGLOBIN A1c (test code = 44793) 5.5 % HEMOGLOBIN [id number] 00:00:00 Test Item Value Reference Range Interpretation Comments HEMOGLOBIN A1c (test code = 51550) 5.5 % HEMOGLOBIN [id number] 00:00:00 Test Item Value Reference Range Interpretation Comments HEMOGLOBIN A1c (test code = 08586) 5.5 % CBC W/AUTO [id number] 00:00:00 Test Item Value Reference Range Interpretation [...] code = 1015) 172 K/UL CBC W/AUTO [id number] 00:00:00 Test Item Value Reference Range Interpretation [...] code = 1015) 172 K/UL CBC W/AUTO [id number] 00:00:00 Test Item Value Reference Range Interpretation [...] code = 1015) 172 K/UL COMPREHENSIVE METABOLIC [id number] 00:00:00 Test Item Value Reference Range Interpretation Comments GLUCOSE (test code = 2217) 98 MG/DL BUN (test code = 2208) 15 MG/DL CREATININE (test code = 2214) 0.86 MG/DL eGFR AMER. (test code 96 ML/MIN/1.73 = 61682) eGFR NON- AMER. (test 83 ML/MIN/1.73 code = 64671) CALC BUN/CREAT (test code = 17 RATIO 2235) SODIUM (test code = 2231) 141 MEQ/L POTASSIUM (test code = 2228) 4.7 MEQ/L CHLORIDE (test code = 2215) 105 MEQ/L CARBON DIOXIDE (test code = 27 MEQ/L 220) CALCIUM (test code = 2209) 9.4 MG/DL [...] code = 2219) 17 U/L COMPREHENSIVE METABOLIC [id number] 00:00:00 Test Item Value Reference Range Interpretation Comments GLUCOSE (test code = 2217) 98 MG/DL BUN (test code = 2208) 15 MG/DL CREATININE (test code = 2214) 0.86 MG/DL eGFR AMER. (test code 96 ML/MIN/1.73 = 23633) eGFR NON- AMER. (test 83 ML/MIN/1.73 code = 40912) CALC BUN/CREAT (test code = 17 RATIO [...] BILIRUBIN, TOTAL (test code = 0.6 MG/DL 2207) ALKALINE PHOSPHATASE (test 89 U/L code = 2204) AST (test code = 2218) 22 U/L ALT (test code = 2219) 17 U/L LIPID [id number] 00:00:00 Test Item Value Reference Range Interpretation Comments CHOLESTEROL (test code = 2210) 147 MG/DL TRIGLYCERIDES (test code = 2232) 82 MG/DL HDL CHOLESTEROL (test code = 2220) 58 MG/DL CALC LDL CHOL (test code = 2237) 73 MG/DL RISK RATIO LDL/HDL (test code = 1.26 RATIO 2238) LIPID [id number] 00:00:00 Test Item Value Reference Range Interpretation Comments CHOLESTEROL (test code = 2210) 147 MG/DL TRIGLYCERIDES (test code = 2232) 82 MG/DL HDL CHOLESTEROL (test code = 2220) 58 MG/DL CALC LDL CHOL (test code = 2237) 73 MG/DL RISK RATIO LDL/HDL (test code = 1.26 RATIO 2238) PSA, [id number] 00:00:00 Test Item Value Reference Range Interpretation Comments PSA, TOTAL (test code = 2606) 16.70 NG/ML PSA, [id number] 00:00:00 Test Item Value Reference Range Interpretation Comments PSA, TOTAL (test code = 2606) 16.70 NG/ML SURGICAL PATHOLOGY [id number] 16:36:00 Test Item Value Reference Range Interpretation Comments Case Report (test code Surgical Pathology ? ? = [id number]) ?Case: [id number] ? Authorizing Provider: ?Pako Lopez MD ?Collected: ? 09/14/2019 1052 ?Ordering Location: ? ? [facility]rology, Clear Received: ?09/14/2019 1413 ? [place] ?Pathologist: ? Chris, Mitch J, MD ?Specimens: ? A) - [...] Right mid base ? Final Diagnosis (test [id number] code = [id number]) FuZzEwMzNcZnRuYmpcdWMx PMrfxoWzGPtrz9ZjB4DzFk AwMFxhbnNpXGRlZmxhbmcx EQKvOPE5ccIzCQLqTVzuWK FpQGsrSs3dfJJtjUxzOsIr OUBqu8jzbnVTcfxndMs2w5 hcJHYvMaS3eFCqIRkoE7kf ldEvhJBxIJAlXKp0xF23KI KfvT3gmIBpALwmlaQzEcZ2 KMkdEZLmQsL2IKKklIDhJB ZkN3qoFYYoXVysUDCdDBrb vRPqBIM9yJlej0O9nTCmwL PthKbcKsZxIjAqKVQGh9Ok VRd7yRthA9UtZKJaExW8kI QgUGFyYWdyYXBoIEZvbnQ7 rT93KLgtlyK0gRJwo2Ewk8 7pv575dP9zvOKySTJ8ZCQq IPBelQTmTVEjWNW2CPWivI RrJ9fkBFvwHK2eniphCAS4 MFxtYXJndDcyMFxtYXJnYj OzdQEjONVfdHunDQiqx633 TYZ6RzAsCE0tL3Ply0W3wF 9maXRcZGVmdGFiNzIwXGZv uj3ibRJvFXoym8KyUMX4vc Q9oXJooFBpYWBuQR76Ezml s3AyQlinLHB0MQSqbuYtw8 Puy5oaWcCbdkFrG6ggD8Fp ZHJoZWFkXHBnYnJkcmZvb3 Zey4UmlELdiSa9w9bpIAVi ZTDssIgnp6qxZAW8RPBxV6 E2wEDlv1saQTkqYXMjySR5 nyKlOLTdjXOiK6OgqK9zEP pzFD0orls6x5ucWeChGR0c oyfgt3ceIOwbDVGmEVW4Hj KySWIit7LuyiugVeAqy8Jf rAXtYBcvD92hi440QWBmsh XfQ7rwtKLfbowphLHqpiar AWzxjaA9VLi2lcXsokeyoI xwbGFpblxmMVxmczIwXGxh qrlqGEYlNXxbC8kiYdNiEV WirPokPVwve7KaFXXmWIGo OuApkZQhHOZaEMZDS5XCHC QSRDkNVF5EBWSRMTMRMHuR VEVSQUwgQVBFWCwgTkVFRE zWHSVJP3BPDUymkYypuR5p GxKyItKeQesxLM9cYCAsZ1 hcwWRfULAzDTNeN4hfGiHf lD3mkCsiADhnLkVcTsOqCo daIGNzaNtmhM6kZvMlQzVo AZpvCF6jYFKvN1sceUCzIY QgFYYnQ2dnIlQqyF2rzDrn MVxmczIwICAgICAgLSBQUk 8TWSLVKHOhKTZQHu7HTERX PF6NVXFcMCmZSPWAQ45gJ6 NPUkUgNyAoNCszKVxwbGFp blxmMVxmczIyXGxhbmcxMD DwDCqjV2cnMoLkEGTjeZpk VFzll7NyAWIyPNSwFictyt IyXHBhclxwbGFpblxmMVxm czIwXGxhbmcxMDMzXGhpY2 tdJrInIRLjdJfyDPkuv2Xn XGYxXGZzMjAgICAgICAtIE bIRQSMARwGX2PHVXAynPuz rM9vGbBzMsMvIqxoMR6cYU NyQ8rfiGIpZDYxAWTlR5as PdFbrZ4izYxoWBqhReEhNp VhIjhsSTNfwZnuvG8aNtGh KbUeAZycKY4xJZDaT7nowK TyREHvHYWdL4qlJyVkdV8a aFxmMVxmczIwICAgICAgLS VMRWFDXD7JRQmTNH6ZMUeH ZHIBI58pVFGSBAITEuH7En J0AQAeXKCoKIblKYEsNSNm MjJcbGFuZzEwMzNcaGljaF nzGXgzUkAxQKYjCQtjP0qt JpAfT5LtVBRhYuTbrXJyFZ BsYWluXGYxXGZzMjBcbGFu ZzEwMzNcaGljaFxmMVxkYm KsFRUvYYkeB9qgQpTvVwEh BAXjUBUmWO1iDJPNM5DxQS 0IB0tACUUqKMLMF4OJRBTS QBP9FPAdQ6NtWQjHDJIMP2 USPRLGKZTENZ1TTDcdpUIr blxmMVxmczIyXGxhbmcxMD LxAAlzZ0ddXtHpJZMdiSuf PYbvd2XfTLLaOPDpKdlhoc IyXHBhclxwbGFpblxmMVxm czIwXGxhbmcxMDMzXGhpY2 uzOgIaSHLpcXxwIPksz9Fe XGYxXGZzMjAgICAgICAtIF RPVEFMIExJTkVBUiBNSUxM TK3PYNNTYhZSWyJKBWYXOW TvH05MEKKIPYLGBDF1CPXk NQ1AJIWuMWuwHOWwKZQmEd JcbGFuZzEwMzNcaGljaFxm SRtfMpOzUCGxCMvcA9jvVk AtG3YkFZFiBdPnqSTdTQPa YWluXGYxXGZzMjBcbGFuZz EwMzNcaGljaFxmMVxkYmNo GXLbHEbfC1odJvPsQmClXV SeBFIeMZ4uMC9IGRssDGtY TJODGI6PGCsAKFSWFBNRTR 1GWFHTQsQNCs9VRRazMVXX TVxwbGFpblxmMVxmczIyXG ssujicTSVjEVywR2zfHmUv OZRuyVfzBSdjz7SwHZRzUO NmMlxmczIyXHBhclxwbGFp blxmMVxmczIwXGxhbmcxMD WjBBapD6igFuWbIGMjvAzm KJkgm9ZlZFTiMDMbFfFuYU AgICAtIFBFUklORVVSQUwg BW1LQPALP61aVl8SGOkRYV 5SSGUMMEAitUiraK3rVqSo PtSpOekrIM4xKKAhE9zljQ TdSIHmCHPaI0bgFuBbfO5w aFxmMVxjZjJcZnMyMlxwYX KcTbsnImWjsWwiyI0ePeBk ZnMyNFxwbGFpblxmMVxmcz YwLRzajkmqRRHfGEkxG3qs IlPeTNLmkQtvYPrcg0UkRF HfXSLlNiVjwTE6WZAuA1Bp XHBsYWluXGYxXGZzMjJcbG FuZzEwMzNcaGljaFxmMVxk CqPbSBFyXYlsK3wtTtIvX0 YyXGZzMjJccGFyXGZpMFxw nDAcztvmZHzpwpM9MQFcEZ luXGYxXGZzMjBcbGFuZzEw MzNcaGljaFxmMVxkYmNoXG PnLRinE2jeUiDtDfTqGUOR EeDTOl1NZRWBXRJAGRJLPC rmNSEUANHNUFIKEsPAJG5F LLsgUpJAEJsDEXGKZ0EOCC xvgLzirK2eZzScLmQsVhvr OU8wWJHdA5ectHPqNKTcVD PoM3ogHaVlgZ5sqUbpADxe ZjJcZnMyMlxwYXJcZmkyNz CgnVilfE1fBkWrEjKcDQlo bGFpblxmMVxmczIwXGxhbm iyIMYwBUymD7akUwOnLITl vWwsYDuad6FjMVPnMVTkEo FlBKMLHx6NNBWBPGXhTJEM Oy3SBMXSMP5QWOToBFyJVG DCN09qJ8GIMiCfUXPmPAlp UPboeDmgzM1cUgLiJsCjCp vhDO9aHENxK3dmsAJsIWGc HWVxP9ppCjJhdG9lxTqnAV xjZjJcZnMyMlxwYXJccGxh uK2aOnYjMiRaEJmeAJ1fVR QvA2deaUIoTNHvLWTcP2gw NwHgyP0peLgtAWwpbkGlLJ 3yH2OIOQMyB2DJOMJjIKnw bGFpblxmMVxmczIyXGxhbm klIBTaAKlpY4anVtWbKGXw hGpoVTgwd6AdBQMpMAYpCv xmczIyXHBhclxwbGFpblxm MVxmczIwXGxhbmcxMDMzXG nrV9ksCxNlRCMveXrbAUwt g8MzSKQgVPXrUiQhGYZNUv DQRQMNK4QVJGOADLAAGG2J QRUxLGJLD0LGTCtjnDMlev xmMVxmczIyXGxhbmcxMDMz AWlfL8mpFlApCIVooRgeJB vsn2GbZLUbABRrFmjvktHv XHBhclxwbGFpblxmMVxmcz AkVPxlcznvNNWoYNygK1eo KtYlNDXnkVsdEWjov2CxSQ BaNRZcVuGwDCPZIE6AJtMB TlZPTFZFUyAxIENPUkUgQU 1WBVc0PZDzF0IjSRcWHQVE Y5AVFUOJJDPDBY6QEZfzmF FpblxmMVxmczIyXGxhbmcx GZHiOMyoK0ktRgPuTLOayV qmTSqwv7PyDZWmWMQtXbvb czIyXHBhclxwbGFpblxmMV xmczIwXGxhbmcxMDMzXGhp H3snAaWnHDIkjMooRVvlq4 NkBEAeQKCbDzJxRLYNT3KN NECJWV6IQMXsRCmZUWwJXI TQIuPbJ4RfUfNJBRdHBWQY QhMsOUxUV2VMRhHhABKDEM xwbGFpblxmMVxmczIyXGxh acevWYInFEyqC2mqSzRnJO RieLybRYwgt5YkPEJzUMLs MlxmczIyXHBhclxwbGFpbl xmMVxmczIwXGxhbmcxMDMz GIvoZ3ckMqVnXIVxiPuiRF wzv0OvQLYtNTAwHiXwGISQ I8XJLTAGNG4KBHEgWZePLD mLYXOAKfLeL9GyY2TTI2iJ A00KHwIxHyJMHHgkeWUqid xmMVxmczIyXGxhbmcxMDMz XAskX6jbUdFiJYWguNzjHX fqm0UxSJQqCWNfMbkqqaLu XHBhclxwbGFpblxmMVxmcz InWXzniiwhCQKqVCyzZ1xt AgGhLLRscShxKDafz0LsCC YxXGZzMjAgLSBQRVJJTkVV MfUCURqKIjNZPG1RBE5EJH BJREVOVElGSUVEXHBhclxw YXJcZmkwXHBsYWluXGYwXG SeZbXqqZdebR5dOqOuVhFv OLyuSQ5gPPNxD7ppcVKuJR NzPIAiL5nxTfGvvV6mlUir HYzumkOuOIZcVCTZW2EHBI QAJUnFPV5PRIGIBQNXNOlJ VEVSQUwgQkFTRSwgTkVFRE vBWNNYN7RJTPfcdDanoH4i DnTvEnNoVmmgZK4dSAOkO2 drlKQfBBQiDKFlV0xbWyVe nB8hhYxnUThdWuJvJwQxHf agCXYtYyviNvJlfFonyX6f ZjBcZnMyNFxwbGFpblxmMV xmczIwXGxhbmcxMDMzXGhp X5nrCjFpWMDgyDxqDIwqx3 UfMWMfKFEuUlDlJEQJQs0A CFUAEEWuLICOSh3HGCGLSM 0AETFtGZtKZYJSB82nJ1LW UkUgOSAoNCsgNSlccGxhaW 4tXcUgTiZqOiufCD3xSHQs C3kcoBNaNYLtCLMtN8zdDx WxmI4qhWksLSohFxCkUtMf IrfiECCacUmfjR6xWkBcDb HuCCfeEW8tQSTpS8uhxFXj YCEqLUIyL7hqTiYbbH9cwR ftYJnzjiObSL1qU8UWKWTs C2SXVREjDFzokCGwoswbZQ xmczIyXGxhbmcxMDMzXGhp H7vdCjWlEOXpvWjyEVazf9 NoXGYxXGNmMlxmczIyXHBh clxwbGFpblxmMVxmczIwXG kxtmyzLMWrIEamE4alVbAo QNLtrOfuJRpkw8GpKELrDA NeEbPeAUJWFN9FVsIBByKC VZCVTrOkBLDUFcOeUC7YBX OuWLPxB1PuENlVRPJVS3UO DQLNEDWGUU0PSRjkiXGzgl xmMVxmczIyXGxhbmcxMDMz MCbsT6zbXsQaDXKdbIzgYW pmo3JqLLKhVFAeVubxqiRe XHBhclxwbGFpblxmMVxmcz MiFHldjnyyTJBeSZrkX1qy GsHpXSNqtQhsDUqmy9ObOH NcBPIlTjHgVUBXA4HGZFGX XZ7FXLOzHKuDCDvNTZDJHk UtL2EpDvRIBAhJKRVWZwXl JEoHC0QCXcEqZBIJNRevlW FpblxmMVxmczIyXGxhbmcx RSPhKCyqU4xrJpIrLOYmfR sbSJtlk9CoXZEyJEHhVahs czIyXHBhclxwbGFpblxmMV xmczIwXGxhbmcxMDMzXGhp G9kuZsQxVIOflGnxLCuts6 KoXBLbBPLjAfXlBEKZU9FQ HKJUKV5YEYQbRRaPASfHNJ RELxZoK0UwY0YRQ4oMV56E HyX9PF9AUNAqnnCsMJZDUu mUWYPPEUpdVN9ABKMHN62v Fq4EKEsYLG6CTKTWRSJndY kjkG1gVgHdQkTrFkloSC6p WZQmO0jwvODtBTKxQFJtS7 zsMtRyaN5qeXgwGSonLlAa ZnMyMlxwYXJccGFyXGZpMF tuyJLoswmxNGhdmzN3BVGs YWluXGYxXGZzMjBcbGFuZz EwMzNcaGljaFxmMVxkYmNo AYDvDKmlJ0qsDpGoWzXeMB KYKqOCRf5LCITMWCGXWRDU RCwgTEVGVCBNSUQgQVBFWC tjNwDOTOyGWBOPV5RFZHut iZemlA7mXsBnRsBnAzjmKR 0wBQOoE3eruOZpFGMmBPPh O3wmFvWhlN0eiDxcLOatLa JcZnMyMlxwYXJcZmkyNzBc aDgzuG0lRrHuPeMwSKrkcR FpblxmMVxmczIwXGxhbmcx JMVwXZekT5xjWxEaMZOlbI luOMzbt3IcQYRlZKQcUsQm UGAVAQ2ZC97tQXCDE7VZRF cSFWOOU3HSHBJNRGMLYNGO Df2ARLPxYC6NXDOPMBMFKT 9OXHBhclxwYXJcZmkwXHBs YWluXGYwXGZzMjRccGxhaW 8pSkCvWpEdBAnqDT7jZOCo R0hmaZEvLFPcAGHoP0eyIf KwiT0dnIkaEQaxslQvWWXe HJZYH3IUELBQRZwVIX9IXX HHPMJERE5WDNZZJAUtAY0I ENMZUJSYTP9BO8g1UGKaHU luXGYxXGZzMjJcbGFuZzEw MzNcaGljaFxmMVxkYmNoXG TcYSocO1bmCsPkV2YuSISe MjJccGFyXGZpMjcwXHBsYW uzVMXjDFOjTvWofFvgqN9h PbKdYaVzFMjhTM5hJVUhY0 oxqSCzHQOdESYoO0jjMjPl bR9twPzzWUjxfmDwBQ6bZS ARX2PSZExBXUPNCD6BN3LE O7mFS13CMPFYHNMFX43AYH JQZ2MRBKhaDAPhQYZdPRMw YWluXGYxXGZzMjJcbGFuZz EwMzNcaGljaFxmMVxkYmNo PCUpRSwuR1fuKfAvV9MvNI ZzMjJccGFyXHBsYWluXGYx XGZzMjBcbGFuZzEwMzNcaG ljaFxmMVxkYmNoXGYxXGxv F7qePwIkKdKuSYIuSMoOAL CYTNhYF4XDHXMhiEmgsF2f UiLfVfXnHjubHE1lPJMlQ1 ayiVPdPFUjHJLuZ3vyLjLd kW2qyWfmVLkiLrBsWjBmMk tyVGAxgOxerE8zMiEgKrWf MWqfXV3dJACoO5uwkDXwGR TwBCFeW1nxCoDboI5cyXyq XYuaqvJhQD5yEWPSG3EeTR 5RX9kFYHFnJRHLF2RJAWCU KANgHFNtB4MqSToGBBAYR4 WPFCSDRBNCDF2MAQthhEIv blxmMVxmczIyXGxhbmcxMD PsMVbkZ0feDdSxJTTxvEyu AMeef5UeKLQwRKTbLlqxif IyXHBhclxwbGFpblxmMVxm czIwXGxhbmcxMDMzXGhpY2 nkJtQpTVWlsEkpUAyyp5Go MUQkRNFjUbFtLCMML8AGRY LRQG4UEUZnQTgAOBqDWYLU KeKpA1YxZzPNSUbJQGYCWn ZeENoLP6ONPmWzMySFMRol bGFpblxmMVxmczIyXGxhbm aeWXNcTEiyT0zbAfWtDKXc kQorPCgys2LiTRBfBPRgNk xmczIyXHBhclxwbGFpblxm MVxmczIwXGxhbmcxMDMzXG xqD6rnXvBaEEQmmTeuLVse t0WhPLQkHXTyUfRnLANHP7 XSOVCBPH2NABOiZRhASCqO BQFUUjVnU3SiF6SNI7yIG7 4ZEpUaTlPnCC7kcHmxfV0q AmKgYfJsCozgXN1wMTXcE0 xbiLEuCEHlGVZuL7fyYjVc vR3djXbzMMqnOlUkHsMtGs tyIKQocPujzS7uJeBsWmGg QTzkFP9tVSWvO1yghSFnAD LlYXTkA4soIeXvsH3tcEco SYiorrFqFK2zPXNYKM9MRK MJEGGETfJHU9yAIaDYW7Lh SURFTlRJRklFRFxwYXJccG FyXGZpMFxwbGFpblxmMFxm wpN7QROqWZvhKUEhPAXfRg BcbGFuZzEwMzNcaGljaFxm BKxyFkNbVRCdFTdzZ2zaFo IrXzRaAMWWPqVVOn0HFSYG RSBHTEFORCwgTEVGVCBNSU QgQkFTRSwgTkVFRExFIEJJ I5UCGSedzZotrB6zFvHmWj AbLzgbTV4sXDXtH8zlcTTa WJEdMMDeE2iaPmMydP4coC xmMVxjZjJcZnMyMlxwYXJc cGFyZFxwbGFpblxmMFxmcz S2WLFsJWhxQJIxUSRaGsHs bGFuZzEwMzNcaGljaFxmMV shUkUrJDSvLFcyG2yxShKo GyCtSPZrMNEbMH9fOcMZAP jYUCLQN0VFXELZNjWCANFN SRSjzFFqIPEvNevkQId8vc BhclxxbFxwbGFpblxmMFxm rkF4FDZyWCcyEGUdLAMsRm BcbGFuZzEwMzNcaGljaFxm QLoiKvSbMMXpVFkeC7flGv FcZnMyMFxwYXJcZmkwXHBs YWluXGYwXGZzMjRccGxhaW 7kLmQrBjMuMTfnAW3nIDVu M1yxmENxJMPrVJNpQ1zaZk JweM4wkTwbCKuazwJsPPtc BPRQM9CTXTSPROlSCO0KHX BSSUdIVCBMQVRFUkFMIEFQ XVddJN2QGGFKZEAHQY6CO2 p7WXGeYMjaPRJyWIWtVgAm bGFuZzEwMzNcaGljaFxmMV brXzHvGRXvQLymM6htGwQo T8PcNDDtLdQabEDoFKXokt LrjFvyrR3lVrOlKmTuLYah bGFpblxmMVxmczIwXGxhbm paYPVoSAerQ4zyIzNjACDn xNlgUWzpd3ZrYCCiOMYrWm AgICAgICAtIEJFTklHTiBQ Od3PAERPBZYmAJfBK5JMQF zABEwhH6pLN97XMkVXBgZB DB8KWHZRJ78hwWSjPNXwKk reTQu6cgDaxypzpEgpzGMl qpagYIdduoD6GCUfNJbeXZ YxXGZzMjBcbGFuZzEwMzNc aGljaFxmMVxkYmNoXGYxXG zpJ8uuVuZtDhVbLTokVFOi ZmkwXHBsYWluXGYwXGZzMj StlIckqK6aFsCpBuRmJKkr LB5bOWXtZ3kwoRSjQNMlBC QeV7spOxMopM5ooJnwZZbe viNnTXkaOTORW7VYAIBXYI tEZA3XWYTSWEpICTKMMPFZ GpYHCH5IYNsnKhJDCCtOXE OMR4YWHUgbdLfedA8vYdTm PxLcZwmlXU6kIDTzQ2srgZ HdGNRrZCPyW2owHvHusI9t aFxmMVxjZjJcZnMyMlxwYX CrKslzFhHbgLshxV8zAsKd ZnMyNFxwbGFpblxmMVxmcz XoXPcjedzgKECqSDqsP9xy AjMiYOEuaCtpNAsja6YvJQ MvZENbSgAjUDQMKx7MIWYE HKLwOYMNPo1XZMUKRR8UMS YrEOjSMVNEP48uB2ABFuQf OyAeUpabTkuxpHantS3qQu SqHwBjCvqqXV5lBXWpF4oz gRYoKYNqIOHtZ7htItKuvY 9jaFxmMVxjZjJcZnMyMlxw NWDfwDhulE3sLtKgKwSzPM evUW4tGNFiT0vhpCTmBCNq FAHaA7qmKiBkhX9rwClqKV jflaFrXR6aD5DTGDXgP2GR VVAgMVxwbGFpblxmMVxmcz ArQOoggmsjQPUaFSzmC9bq OzJsXTMghGerPNezc5OqVV YxXGNmMlxmczIyXHBhclxw bGFpblxmMVxmczIwXGxhbm xyYVVtBOquU0hyUdYmWLFq rTwtXOkiv7QeCBZrFAGlOe TkOVIYKA7GTwWRLaLUGNZV UuNhINASIcDwMP0BRKdtJL TOBzEETJPkBFdHZ1GFBPUA TI3KOwCAXRByAFkmWFFdDC ZzMjJcbGFuZzEwMzNcaGlj aFxmMVxkYmNoXGYxXGxvY2 xfHmOqY7KgISZiMuJarYWn XHBsYWluXGYxXGZzMjBcbG FuZzEwMzNcaGljaFxmMVxk FwCcENVqXTlrW6xoDtGoVd MyMCAtIFRPVEFMIExJTkVB ZlUFMHzTQB9UNOVBJnALEc LVSNJTDSBoU08CEYMADWDT SSW2BKB0EK2QGMQrBOfuGZ YxXGZzMjJcbGFuZzEwMzNc aGljaFxmMVxkYmNoXGYxXG uhR3uzSwDyG3IeIYDrAqAf cGFyXHBsYWluXGYxXGZzMj BcbGFuZzEwMzNcaGljaFxm FSwiEaHgPRStMPebE4mfYz FcZnMyMCAtIFRPVEFMIExJ PrJPIcKXWGqSFS0KCYIGEu WRJvOIEBJXJG7MLRZ8SZGz XY0iqNukjV1sWpHiTwAzMn iaNG3qKGHwT7ifrHYeFTFt LZGeF1hkJuLskD7fmEniPH xjZjJcZnMyMlxwYXJccGxh eU1xYmVxPnLeTZumUW0vKX XoW2cxoGHzCRZqPFCeU1ik DuRghN7rvDlvSNzfcfEvMT 7dTOOAZN6QSUMGBQQTNxZE M5rRWvRDB2LdFQVQKkTJCv lFRFxwYXJccGFyXGZpMFxw zIOgsgisXLqmdnM3JAPsHS luXGYxXGZzMjBcbGFuZzEw MzNcaGljaFxmMVxkYmNoXG KeKVrhR0dyDsJwSbDqEEWV NtBONp0NFQQIUWYRQEQGQO wgUklHSFQgTEFURVJBTCBC QVNFLCBORUVETEUgQklPUF NZOlxwbGFpblxmMVxmczIy YGnfmodnLJWtWBycD8ufIg BqMRTvnVliUUpfi0NbBZFh XGNmMlxmczIyXHBhclxwYX JkXHBsYWluXGYwXGZzMjRc tRcwnQ3bXaDpMpIuIJbsEE 9pFVNcD0ifoNKhWNKrLVNf I5pxGoEexM5dsSiaJWnjyk EwQEDpAVXzFRZECT2KY69m UHLAK3KWKRzBHJEMO5BBPR VHROYQUUHWWi6CQTNuOU1I URMJZJLAJF3LAOXhpwntyK Z7MVxkgUFpUNHyfRiupPzy xL7rHqUfShYsOIocmRVoig xmMVxmczIwXGxhbmcxMDMz KFioX0ejBxBxLMLjoEorFQ yqn4LqJHYdNLFgMxUiaBTx XGZpMFxwbGFpblxmMFxmcz I3RCGzIHqdVLJkJBItZcSb bGFuZzEwMzNcaGljaFxmMV wtNkCuAFAgWLbaL1wnFfHb SqAtVMTMSeHPGp6CMABISY BHTEFORCwgUklHSFQgTUlE NPTBRYgiSM0JFZHIZQYNXT 7AW2s4ZSQyXPxwYTFsEZTs MjJcbGFuZzEwMzNcaGljaF qrMAesHnExZYBmGTehO0nd EeTlX4SnMIFhLxEjnFJdJM ZpMjcwXHBsYWluXGYwXGZz AkUxpVhxwM3zUhFsHzXuHR vxAY6cZAJoW0buhBPfEFMp NDFlO9efQkKthN4qtHnwPK ikeoTfNO8cUYBUH0ATJRnM PKUXIC5NR9SNT2dKS85SGS JYHITVW51BLYXLB3AAWCJb KDMrIDMpXHBsYWluXGYxXG ZzMjJcbGFuZzEwMzNcaGlj aFxmMVxkYmNoXGYxXGxvY2 kbWpZtW2JxFCAoXtPutORb XHBsYWluXGYxXGZzMjBcbG FuZzEwMzNcaGljaFxmMVxk VjHaGBZcIOvxV2wbCfZwKx PgLNJwCRjFAQJQZBtLZ7UG IPAhoLkqmM6xSsCcWoGtYl caAL7pDZSjI2cspFNaHEVn ZZWaR0bvNeApvZ1jkTciQK xjZjJcZnMyMlxwYXJccGxh qV3aVzTyOwKmQGkmDT2xCP MkP6hvxCXfXFHrIVVrM7fv CrWufS3bhNapWJkxidRwNT 5iTPIHL6HhRO8QS3sYWWLv NPTOO2XLPTINYWO1WLGUEn QUXGXqXVhJH4BOCNXVRK5K TkVEXHBsYWluXGYxXGZzMj JcbGFuZzEwMzNcaGljaFxm ODjhKwMnEGCdTSvnD6gxEl LeQ1WxRFQmMfMqaCDvDKTc YWluXGYxXGZzMjBcbGFuZz EwMzNcaGljaFxmMVxkYmNo RJXzCEieZ3raYpHaNfLlMB AtIFRPVEFMIExJTkVBUiBN OGxPJQ6UTKTPCpYSYuAHZG SIOZNeF16QDXQDBNXPCLR5 RTN1DJ6LVYIzBBbpDIZgGD ZzMjJcbGFuZzEwMzNcaGlj aFxmMVxkYmNoXGYxXGxvY2 wzRzYgF6AzLOVnLeBfeTOo XHBsYWluXGYxXGZzMjBcbG FuZzEwMzNcaGljaFxmMVxk RdDnIMMiRBkmH8lqRoDwJh MyMCAtIFRPVEFMIExJTkVB IzTYSPnNHM3UCBSLTvLFDv QYPVZSYN4KXBH6ZPQkFF4m dZuegB6nWjZxJgFgYlhpJE 0fAMCyP3ibaAOzJSIsFJKs E9ajUsTmmR8fsGyjEMsnAs VoDlNfMseeOSOloUdzpH5a WlMuJpBkYQyqQO7bDYDeV6 fchCIkFAYnHJLfE7bxTbQr fW0skFtrVGtkpaVpCA1iHA ELJA9NZLEHWJOROuCCW4vJ TxKPJ3LeGTSNGcZWAgeHCJ xwYXJccGFyXGZpMFxwbGFp folfKFbojhJ4EIAbSHzoSR YxXGZzMjBcbGFuZzEwMzNc aGljaFxmMVxkYmNoXGYxXG ysX5bjKlKpSxMfGNEHUyEU Tj8XQATHCISJDZFCLBbkHw aBNGQbULlYEY1BEDvrZcFO DHxSBODEP0JOYMqioTnkhK 2bXkGfEkKgLchhRS2uOEMy T6ggjXPqVYBsIFIvC6seGu XsfG9qjOtyYKbjQvXcArXa MlxwYXJccGFyZFxwbGFpbl rlJZcifuM9XBOlSEvlAGKl XGZzMjBcbGFuZzEwMzNcaG ljaFxmMVxkYmNoXGYxXGxv O6zxExQdWbFzYYJdJIIbRA 4eVtNPUJkPMSFAX8LUVOYN HxHNFPCVAYHqHA3BACAWNf 8KRRNgTR5FIAIRXGURLC2J XHBhclxwYXJcbHRycGFyXH FsXHBsYWluXGYwXGZzMjRc zTynaL9zJpPpJrDmAYckDX 1gDOXoR1ihsMBxSRExRKEc U6raHfSupZ8eeXjiEFsvaa YyEMrcVQCDD4YYBAUJOYeM BX6JHNKUSEvJKKCJVVYyFt BECHchBjTPOOjMQXKLN2AM WZgkeFgvgL9iVkEkCnSxVr oqRN4fTZBdR5rzoHEuSEZf FVIcS4vcYgKbbC8tqRwjWF xjZjJcZnMyMlxwYXJccGxh dL9zSrFlKeEqCVfhIH5hDV SyQ5dvlTKiLZFdSGUeD5uq UpPlqJ9dlAifPLeggeHiJG ZyLFUoUOXQFt8LQLTCDWWk DZVQWi6DGEVKJJ2VONXrHI xDDSHPW92oK5TZTaPdMgAo OdomNevhgEuquH6aHwGiWu QbBfeaNB4vRJMtI0vebUTk UTYrYDQeJ4wyNbSeaD4daX xmMVxjZjJcZnMyMlxwYXJc KbxtKzTivZlvyA0jJwAfLg MyNFxwbGFpblxmMVxmczIw OJjjcnxpOVAqNCytF1rwGe ClNEQxzPspHFmin1UkHTRx XGZzMjAgLSBHUkFERSBHUk 9VUCAxXHBsYWluXGYxXGZz MjJcbGFuZzEwMzNcaGljaF iiRDiaGuSwIVWsEOnnB5qe XzCtV6UxVPHeMhCwnLXgPR BsYWluXGYxXGZzMjBcbGFu ZzEwMzNcaGljaFxmMVxkYm GkERCbQUpoX2vtXnAyVyLo GCSlRGVNFN4HIZyVNi4CAp KBCZRcG55HHLHSWrCrSNCs P3KeEWjWCYZJU2RAFRJSCU QQED0WWRgmcCAolwfaRIrx czIyXGxhbmcxMDMzXGhpY2 brMyIoEUMqnNioSSdzd0Ce XGYxXGNmMlxmczIyXHBhcl xwbGFpblxmMVxmczIwXGxh xyyoJIQaHMlgV1siBjWoOW NfrWypYIqiw1XfHXQcNKFg JuNjZEDXC6XOWCEKPM6YKH FrMMkPNHlCMBQVGwPhU8Vr TkVFRExFIENPUkUgVElTU1 VFOiAxMiBNTVxwbGFpblxm MVxmczIyXGxhbmcxMDMzXG dwF4oyRbNeZLCrmNllDXga k2SvTOVvUMKzQpjgewLuGR BhclxwbGFpblxmMVxmczIw VYchpduiPWDeYLqaL7ycKi ZsIOFrlPpsJUajh7WvQMAx DOQgMuZsLIHDP6HBJAWGJT 5FQVIgTUlMTElNRVRFUlMg U6JzL2NLG3qFJ65XQwBeCj FjHA3mxFemfL1hAeEaWkDp CgvlLG1yYEYsN9nkmEUjDP TuVSZfO1smDeEmvG2cvZyh MVxjZjJcZnMyMlxwYXJccG aczI7aUaWaDqOwEBcxXS4d DQOeT8tasSQaRUHsGTZmW2 ukMbHtkX4mwGjbOIiobkSm GN6xFLZKFJ7STGZEINUDEu PAW8bBPhVUA9ZwOQZTVnEI RklFRFxwYXJccGFyXHBsYW luXGYxXGZzMjJcbGFuZzEw MzNcaGljaFxmMVxkYmNoXG VmHSofR1rjAxLtW2JcGUGu QiKlArBafOZeaYUmB8kvhN hanadmXNZLABDpMDovBn5o OEZxSTZ2SgWwGGPIUVUyUL luXGYxXGZzMjBcbGFuZzEw MzNcaGljaFxmMVxkYmNoXG UgLCphQ2eyUdEkRsMrJTZy NFxwbGFpblxmMVxmczIyXG saavczJKHqKGktN1yoSsMe XBKruEsaCUunv4ApCBAjWH TtFglejfEfYMHixq61FQV0 CqGpe1W2HBVgMvVbICSmLE 5isHdiRVGvCS8lCVHoA3mn vH8qmue4KaNmVVIbJbA0VD JjxqJ6Dnk8AHGvWHjzt7uz w5NnV3FsvTCztWf5m3unUJ FsEqW2aEUmPYjnO0lfgzHi uUVlSQIyQWn1kAruDuZkKQ Yjy3kqzdMaDgSrOOYoXYSa TRAnwBkmmsm2vQ48OWBgkU 8nuMRoQYsrmtKhAzE6KYcp NFUvJbM0EFBnzNNrCJUzS9 xyZWQwXGdyZWVuMFxibHVl LCS5zTvtl5Y9jSXqqCWcvE vuHuXrFkQxFTSAj9YpAVu5 kDhjW0WjDRWwDwP3wOIaDV AmHOxxKPKzFUDygjH1kZ98 TJwqszQ3wDGeu1Qpr01rw1 91gF0zjOFeAAG8OYFfENLf cZOnIBKcZNU8MJGptWGxB6 vjCFCfFY6kvxqfGGabXSgy EAGwxJX8HQOjkHQvE6ZtCL UzSRzaKHDkgzo2SrMzHh7z tSDdxSjjNYvbc7pgg2fupO DkZdz3AJNgWdCfSsveUGyb t6Jfq2llZTWnip2aWBC2yI OloUmbs1I8iALgGZBynLRv ztBfSIIzIdN8CUbjUW3qbg 86JKObBEU2nz4ifYJdjDnj cgXnmJIiAUvjA3ThFFBdw7 92UWUnC6NpKLYft1Z1rhUh QxLrPEAooUK2qtR5WYPhQK n4mGLubfA8eqZwuUVqM4wb fQ6uKFThBF5nkowwb3xuKR ynAKydAUJfqZC0exE3SKTo dTVrS3QizM4oFOYhCAhjEE Oirwu7BeHiLj6loLCycGaa MFxzYmtwYWdlXHBnbmNvbn RccGduZGVjXHBsYWluXHBs YWluXGYwXGZzMjRccWxccG kalL4yKwQeAcKbCPinWK4j WHZsT4ocrPKsTBNuISZlR3 zbZdJxvU3khElkEGuqZmDe ZnMyMFxwYXIgSSBoYXZlIH GbfnInkiIrwSmotuK5kAV6 ZWQgYWxsIHNwZWNpbWVucy 9kgBzeAFIhTX8bRYUhmtZi WOqmdZdtAErmAJN5WFYmsM VudHMgbWFkZSBieSByZXNp AHYxgRCkJWSanTcdc4Hle3 PfnTN5eN2ho2yeq3ZlGHQe mJS8QF97utS6sP5bDYXpDU 9yXFMsME8yyZZcpEFfRMSc u58blVyeynWvIGKqrtTdWB BsYWluXGYyXGZzMjhcbGFu ZzEwMzNcaGljaFxmMlxkYm TxXXLaFTrxU7coCdNnPsUj TQekCOB0iG== Clinical Information Left lateral apexLeft (test code = lateral midLeft [id number]) lateral base Left mid apexLeft mid midLeft mid base Right lateral apexRight lateral midRight lateral base Right mid apexRight mid midRight mid base Gross Description (test n8bazRMtOAXprSZhShSpCB code = [id number]) FrCONhc5mnTTIweQQhSwIq MzNcZnRuYmpcdWMxXGRlZm Sem4fuc521bBBtp3eiFCHa UhY9kVGhZULtrTRzS325XD EgGRjqa2mcd4HaQJEzrSNq u6X6BVDFkvufwFq9v4osSc DmBiP0kWDtYBehI0nmbbFr pLZoRKZqV0GeckYFYIOhMu d1iVqfQ46ks0A0FwqkK0un ZWQwXGdyZWVuMFxibHVlMC C3QDRmBEU4ANcvsrDxlzG1 BTknfKNpGwH0HMu1v8wumZ kgRPAnSLG0p8cuEAymweQk KJ9tcg8rzZt0o0cvxaCsMW BoIFRucIEJGZCoJ2VfbZwb Pl1ksOk6uDvzGeyaNTP9Qr n3TG3vtm49uta3fRliWYFc gqzySvT2WHitOHTvocnrHT o0GPjzBAMefDNhTJNcjXAj F4LzHItfFX8pbud7FdBnLQ 8zfgqoTKurUDWnPSU0SeFq SIDas9EgwxhmVcHbbf2hxk 31TZZ5v5ZnqTszYAG6SNY2 JcRvEq1sbQLbQQAlBP1wFu UewAFuZJGziw41hPnfGGuz qqIulR1jXvNpLCMcaBNpOB JiSU1cwCLeKUKeqG1bgqnl XHBnYnJkcmhlYWRccGdicm GjBg8roJvyKRD7UYgqZ5ee bW6gMxE2EBttS9mulN9dBG l9HPqmfHU3DGEnbE7dHL2o ppoww0mkIJY2UUerIHRckh N4fgJaKGEfoSXqO5GhnY21 AdPddXChO5QhrN5eRYcaZM Grgbz5ZnMtFe8grCPiiGH2 MFxzYmtwYWdlXHBnbmNvbn RccGduZGVjXHBsYWluXHBs WZjrEBNcCPQeXfIat8XxUX Dac6ylOhZwy6hbcIl3NZcx wKolwWQbwqkvIXtcppK8QX BsYWluXGYxXGZzMjBcbGFu ZzEwMzNcaGljaFxmMVxkYm MdZSLjYEorM5ivSnGxFdRg IZIUaIHxjN7jdhAIBNvvDZ VuT2JibeTjFEedSGBkit2s zBunWFnuGtOaATAty7b8vW C4cSSixPZ0tEOikGbjMN1t qGQrANOMYJ87fLOnnzgnGk xtTbLzxOG2HJBnnEKyrLI1 LyRsgqHrJ47vi3sbmCWrc9 ViXJEdsS6nqAIcaJPxRDyt NGpwA01qVYScNZ94QCrgYB 5dKIkiAL5gBVBgYFU1cJpo aCBpcyBlbnRpcmVseSBpbm tlZCBibHVlIGFuZCBzdWJt pXK3YFVpjI0cjL08wtTdfo PBEL1blDTlFGDpUTSwrGZv OEUzqTOaaqEiDKx8WCHdmK 2vIn2jnHGdrT8dhBIiEVek XJH4lIKrDRSwZJTzIBQbMU 89N4ZulrFcXKbtTNxjdcGo YmVyLCAibGVmdCBsYXRlcm KlAA2eXZFpIO4wOBVbfuKq w0GbQW3wPGIoa8qqI1nyBR Icwm5bxuC3RLIglhWrJHVl PQB8RWSdVJ1uVuRqQ01dPP doaWNoIGlzIGVudGlyZWx5 LWmuo7NgKWGxeGLpCT4cLS Q1Rq1tuVPhFMJjwaD2e3Ni MQkbCFUmFuglQUEuX2ZuH3 axYY6uVmCqehVxZEEnmIEn PAZlauZwk4IcUIlyjiKyJZ JlbGVkIHdpdGggdGhlIHBh gSveijLokhDlGW7cYYMMVK IfkZ4vLYSzARHcZBG3SStf oPXqCKfoYwCtGADhWP2fGE BxrtGyy7BzVO9yLRJbc2zu F5jeIIEzke9kptK9NXEomg PqVATnPiE9ACEcIQJ7RYSq WQQtrKmbu4qnB2mfxGVcLB 43aWDadTsuwZ7dISTnJwm8 PSFihlIpf9RsnFb4zGUfNG cwQAMvyR0uiE9sHaKfIGHw liEPvPJjsN6ednQMKZcuVX HmF6GhwxUvHNuuRULnhw0y iJdcVWngRdHzKFArr1i9vB Z9lRHgiBD9tQSzkBewDO0f lLQuOUAJFS34lTBwhgdqBm xlZnQgbWlkIGFwZXgiIGFu QCFzu62gsAX6pqTjAdJmNO AlyorgYUJ4RG4vD4UuxRYg z2HiFJnnSwPwwIRhJvYxmG UfTsQkA27jVHsctZKjMUey LQDtbYznVCs2ROphd6ScNJ VguZXsSC5iXYF7Wu7zbKAz NIQfbkR3t3GySYsrPRImHj ooLQRpT5VnW5kbFN6uBJNj cyByZWNlaXZlZCBpbiBmb3 JtYWxpbiBsYWJlbGVkIHdp dGggdGhlIHBhdGllbnQncy NaNW3fNGBSHNWloA8lPLJb HLVkMBV2SH6iFZWerVBxZU YoVXQfu10dpMV3mvLrUuMb MKTynvjdZCK3IJ1lF9PamB Dyr7LdPWfyKnGlmNVxNpLt cXYpZyOuM60mVTgniXUaMK qmXXHgeKmfXDt0EMfrx1Ph TJEfuDDeVL3xIRP0It7zqU AaJXPnvaG5c4IyGWidUUCs PpjqKBPzY1DnH0wrNZ7zBv BpcyByZWNlaXZlZCBpbiBm f4PfZIzdrtHpOFIwbKJgZD dpdGggdGhlIHBhdGllbnQn mfVkEC9gVAOOSXTvkN2wPN NvYNGnSWH6UY0xSXZxUQAg DxHtzqPkI66mp0geuGLtb4 ZhJUFfbC7hxIFvwUUuNXtk FJsjX45jHDTyOY65NHvuAV 0gNFqpJC8pBNGiIME8qEup aCBpcyBlbnRpcmVseSBpbm tlZCBibHVlIGFuZCBzdWJt vSH2EGSuiK9goS96qtSzbr ZBXV4wuUBxYXBuIZRjyCWr YCunhGZwyiRpZWb7JLHgmZ 6zTy7rsKPxaK1htUJdHFgr FFA8xVRpMBChOQNiPLLlYM 64V1HnawWaFVmaUYlnxoOe CuMwFVGzmxfbvHCcmHB8LQ CmfNXyqIE5SbCsdpLkU09e v3yvtZRdi3UgFNZpkV0zpX BzpPKiETohUHiaS49cIBZx Gy7tBPxwNL8zIKzxBT4nIB NcEHO6oQhohQCfhoDnxePr cmVseSBpbmtlZCBibHVlIG TnBXBvaOZsqPE1UFJbqK8o cR11zzRzsdADKO5qmHQgCU NwZWNpbWVuIEggaXMgcmVj XRp8ENIssC7hGv4udVDdgE 6rxJQrZTtcVMX4rJQrFMDi YNFrKHFtII44Q9HjjkXkLC wgVUggbnVtYmVyLCAicmln bLAncII5ELCgcUKnpTZrYD UdRWCnp18gkPU5txMmVuIi WWXdazsnOWM1RZ4zG1NotF Pid9LlIJqkCzinxCMdKyUf zRAvPxCgV55tDHcksFGbUW ckQWFgpPoyXRr6WNhcd3Qf IPBjvWZkHA8vQYU6Tf6piY ZvUEDiltL8y8SbLEmqMIrv PqidNYXbH3NxF9mgNB2tWY BpcyByZWNlaXZlZCBpbiBm i0KkXMifmcWrLKNexUCpAS dpdGggdGhlIHBhdGllbnQn fnJnMK3tTEUTNKXrjX3uLA IsICJyaWdodCBsYXRlcmFs ZVRpl7KfYTMjYPBal51uhV N4bqXbQeRuRJKwialwGEV4 FG3nE7ExdCZyo7IxSFhkSj jlwUDgMcWwcISyKkEqS67h IHdoaWNoIGlzIGVudGlyZW r9HSjay7BaVBEfdVYrCP5k ZBX8Pz5fhDSgFMLlydS0t7 EiKUlaWSqhKsdqZGAeO2Oi A0ckLC7kXcStrbDlYBBriI RoGFOlsoMjx1ZrUEtntxEa YWJlbGVkIHdpdGggdGhlIH PzbDckjwQeqgKkUU9mNSPM MUggbnVtYmVyLCAicmlnaH QgbWlkIGFwZXgiIGFuZCBj u41heGC8tfMdBdQnJZSfhq rhVAL6GX3qT9HanVDcy4Dd ICgxLjcgeCAwLjEgeCAwLj UjU20xVMkmhTOlXCqkXSRn rSeaNQf8UIbho2YkCOPcsW LzOW7wGGG2Lg7wkZAxCLWk ryM4c7LcPGwkNYmkHdamYX ZuP3HpO4diOI7dUzEkehIr BQJcbIRhROXjmwNkb5CtER xpbiBsYWJlbGVkIHdpdGgg dGhlIHBhdGllbnQncyBuYW 3yEPHDRBZhsJ2oBFWrULEx aWdodCBtaWQgbWlkIiBhbm DxW41wn2sepZGmi2FwXWXe eG6azMMfqRDqOBsqKTojQ9 7qVMIeDz8rRAxfWZ4pRDvq CV7fBTRuNYG3fMnqeBZwwz BlbnRpcmVseSBpbmtlZCBi uVOoWFAxQFJozTRsyLZ4ZO DrlR8sxG14lcVsklVCCG8l cGFyIFNwZWNpbWVuIEwgaX LnugBqWGw0CYJagX3xYi4f gBBkhU0tcQHzTXwgMJI3kJ IsBQXhIINfJCHwXG60N6Wv bmFtZSwgVUggbnVtYmVyLC KavnqiaUEylXeyHHJpw3Ng ILHvPTFgb20xePG9lfKlLx BjFWVygbasYOC0CK2eZ9Wk uCXxi5FxWAioZgNwfXKvFv CipKQzHoMzJ77dDHuvtDTq SLzkUMNcsQxvNFn5ENjsn1 ImNCJoyHXgPB5rTCU5Jd5l kBHoRFLhvlX7l8XuVPaoVT wxLlxwYXJccGFyZFxwbGFp vayxTXmepvG2HWXzFBpoJV YxXGZzMjBcbGFuZzEwMzNc aGljaFxmMVxkYmNoXGYxXG qdM0sbTxVoYmRwJUQMaLjk RPZDF2msxNZqCCkrXYBZFE BsYWluXGYyXGZzMTZcbGFu ZzEwMzNcaGljaFxmMlxkYm YqOYWeYBwyC1bkCxXuL2Ed XGZzMTZccGFyXHBsYWluXG YxXGZzMjRccGFyXHFsXHBs YWluXGYwXGZzMjRccGxhaW 4pXaImOkUkBArkNL4tTJEo I1wgkGDoZVMcGKOoX7lvQw GglA0xcCisGQsajzUbGFNp cn0= Embedded Images (test code = 2479821558) [facility] [id number] 23:07:00 Test Item Value Reference Range Interpretation Comments PSA (test code = 29.30 ng/mL See_Comment H [Automated [id number]) message] The system which generated this result transmitted reference range : <=4.00. The reference range was not used to interpret this result as normal/abnormal . BEVERLEY (test code = BEVERLEY) Biotin has been reported to cause a negative bias, interpret results relative to patient's use of biotin. Lab Interpretation Abnormal (test code = 99716-5) [facility]
[2022-07-19] MEDS ORDERED: ONDANSETRON 4 MG/2 ML VIAL ONE (10:24)
[2022-07-19] MEDS ORDERED: FAMOTIDINE 20 MG/2 ML VIAL IV ONE (10:24)
[2022-07-19] MEDS ORDERED: MORPHINE 4 MG/ML SYR ONE (10:24)
[2022-07-19] MEDS ORDERED: NA CHLORIDE 0.9% 500 ML ONE (10:24)
[2022-07-19 10:25] LABS: Absolute Lymphocytes (CBC) 0.6 K/uL (0.7-4.9); Hematocrit 40.5 % (39.6-49.0); Lymphocytes % 13.6 % (15.3-44.8); MPV 8.3 fL (7.6-11.3); RBC Red Blood Cell Count 4.55 M/uL (4.33-5.43)
[2022-07-19] MEDS ORDERED: NA CHLORIDE 0.9% 1,000 ML ONE (10:25)
[2022-07-19 10:26] LABS: Urine Bilirubin NEGATIVE (Negative); Urine Blood Negative (Negative); Urine Clarity Clear (Clear); Urine Color Colorless (Yellow); Urine Glucose NEGATIVE (Negative); Urine Protein NEGATIVE (Negative); Urine Urobilinogen Normal (Normal); Urine pH 7.5 (5.0-7.0)
[2022-07-19 10:30] LABS: Protime INR 1.07
[2022-07-19 10:47] LABS: Albumin 3.7 g/dL (3.4-5.0); Bilirubin Direct 0.2 mg/dL (0-0.2); Bilirubin Total 0.7 mg/dL (0.2-1.0); Magnesium 2.2 mg/dL (1.6-2.4); Potassium 3.7 mEq/L (3.5-5.1); Protein, Total 7.3 g/dL (6.4-8.2); Troponin High Sensitivity 12.2 pg/mL (<58.9)
--- NOTE | 2022-07-19 11:13 | RAD REPORT ---
EXAM DESCRIPTION: RAD - Chest Single View - 07/19/2022 10:40 am CLINICAL HISTORY: ABDOMINAL DISTENTION Chest pain. COMPARISON: Chest Single View dated 02/01/2022; Chest Single View dated 01/31/2022; Chest Single Vie w dated 05/21/2021; Chest Single View dated 04/29/2021 FINDINGS: Portable technique limits examination quality. The lungs are emphysematous but grossly clear. The heart is normal in size. No displaced fractures. IMPRESSION: COPD.
--- NOTE | 2022-07-19 11:59 | RAD REPORT ---
EXAM DESCRIPTION: CTAbdomen Pelvis W Contrast - 07/19/2022 11:40 am CLINICAL HISTORY: Abdominal pain. ABD PAIN COMPARISON: Abdomen Pelvis W Contrast dated 05/21/2021 TECHNIQUE: Biphasic CT imaging of the abdomen and pelvis was performed with 100 ml non-ionic IV cont rast. All CT scans are performed using dose optimization technique as appropriate and may include automated exposure control or mA/KV adjustment according to patient size. FINDINGS: Lung bases are mildly emphysematous. Mild intrahepatic biliary dilatation is seen. This is probably related to prior cholecystectomy. No l iver mass seen. The spleen, pancreas, adrenal glands are within normal limits. There is a large duode nal diverticulum noted near the ampulla measuring up to 5 centimeters. Both kidneys demonstrate no mass or hydronephrosis. No bowel obstruction, free air, free fluid or abscess. Sigmoid diverticulosis is present without dive rticulitis. Appendectomy. Prostate gland appears prominent in size and projects into the bladder base . No evidence of significant lymphadenopathy. Advanced lumbar degenerative changes with dextroscoliosis. IMPRESSION: No acute intra-abdominal or pelvic finding. Sigmoid diverticulosis without diverticulitis.
--- NOTE | 2022-07-19 13:07 | ER ---
Nurse's Notes [facility] Name: Jesse Collins Age: 81 yrs Sex: Male : 1940 Arrival Date: 07/19/2022 Time: 09:39 Bed 16 Private MD: Diagnosis: Epigastric abdominal tenderness;Abdominal pain, Generalized Presentation: 07/19 09:59 Chief complaint: EMS states: toned out to patient home for mid epigastric abdominal ld1 pain since this morning. Patient reports previous pain like this before from stomach ulcers. Denies N/V/D. Coronavirus screen: At this time, the client does not indicate any symptoms associated with coronavirus-19. Ebola Screen: No symptoms or risks identified at this time. Initial Sepsis Screen: Does the patient meet any 2 criteria? No. Patient's initial sepsis screen is negative. Does the patient have a suspected source of infection? No. Patient's initial sepsis screen is negative. Risk Assessment: Do you want to hurt yourself or someone else? Patient reports no desire to harm self or others. Onset of symptoms was July 19, 2022. 09:59 Method Of Arrival: EMS: [facility] ld1 09:59 Acuity: KT 3 ld1 Triage Assessment: 10:01 General: Appears in no apparent distress. uncomfortable, Behavior is calm, cooperative, ld1 appropriate for age. Pain: Complains of pain in epigastric area Pain does not radiate. Pain currently is 8 out of 10 on a pain scale. Quality of pain is described as burning, throbbing. EENT: No signs and/or symptoms were reported regarding the EENT system. Neuro: Level of Consciousness is awake, alert, obeys commands, Oriented to person, place, time, situation. Cardiovascular: Capillary refill < 3 seconds Patient's skin is warm and dry. Rhythm is sinus bradycardia. Respiratory: Airway is patent Respiratory effort is even, unlabored. GI: Abdomen is flat, non-distended, Reports epigastric pain. : No signs and/or symptoms were reported regarding the genitourinary system. Derm: No signs and/or symptoms reported regarding the dermatologic system. Musculoskeletal: No signs and/or symptoms reported regarding the musculoskeletal system. Historical: - Allergies: 10:01 Aspirin; ld1 - Home Meds: 10:01 Eliquis oral [Active]; enalapril maleate Oral [Active]; Protonix Oral [Active]; ld1 - PMHx: 10:01 Arthritis; Atrial fibrillation; Hypertension; prostate cancer- in remission; ld1 - PSHx: 10:01 Appendectomy; ld1 - Immunization history:: Adult Immunizations up to date, Client reports receiving the 2nd dose of the Covid vaccine. - Social history:: Smoking status: Patient denies any tobacco usage or history of. Patient/guardian denies using alcohol. - Family history:: not pertinent. Screenin:03 [facility] ED Fall Risk Assessment (Adult) History of falling in the last 3 months, ld1 including since admission No falls in past 3 months (0 pts). Abuse screen: Denies threats or abuse. Denies injuries from another. Nutritional screening: No deficits noted. Tuberculosis screening: No symptoms or risk factors identified. Assessment: 10:03 Reassessment: See triage assessment. ld1 11:22 Reassessment: omer collins - daughter in law - [phone]. ld1 Vital Signs: 09:59 BP 155 / 96; Pulse 97; Resp 46; Temp 97.9(O); Pulse Ox 97% on R/A; Weight 72.57 kg; ld1 Height 5 ft. 6 in. ; Pain 8/10; 11:09 BP 183 / 68; Pulse 57; Resp 22; Pulse Ox 98% on R/A; ld1 12:45 BP 146 / 64; Pulse 59; Resp 22 S; Pulse Ox 95% on R/A; kc6 14:06 BP 156 / 71; Pulse 60; Resp 18; Pulse Ox 98% on R/A; ld1 09:59 Body Mass Index 25.82 (72.57 kg, 167.64 cm) ld1 09:59 Pain Scale: Adult ld1 ED Course: 09:59 Patient arrived in ED. ld1 10:00 Jameel Valdivia MD is Attending Physician. [facility] 10:00 David Foster PA is PHCP. [facility] 10:01 Triage completed. ld1 10:01 Arm band placed on right wrist. ld1 10:03 Patient has correct armband on for positive identification. Placed in gown. Bed in low ld1 position. Call light in reach. Side rails up X2. filling hauler weaving on. Pulse ox on. NIBP on. Door closed. Noise minimized. Warm blanket given. 10:03 No provider procedures requiring assistance completed. ld1 10:04 Martha Escobar, RN is Primary Nurse. ld1 10:32 Inserted saline lock: 20 gauge in left antecubital area, using aseptic technique. Blood ld1 collected. 10:42 XRAY Chest (1 view) In Process Unspecified. EDMS 11:42 CT Abd/Pelvis - PO and IV Contrast: oral contrast 30 min In Process Unspecified. EDMS 13:06 Tony Mary MD is Referral Physician. [facility] 14:46 IV discontinued, intact, bleeding controlled, No redness/swelling at site. ld1 Administered Medications: 10:32 Drug: NS 0.9% IV 500 ml Route: IV; Rate: bolus; Site: left antecubital; ld1 10:32 Drug: Famotidine IVP 20 mg Route: IVP; Site: left antecubital; ld1 10:32 Drug: morphine IVP or IV 4 mg Route: IVP; Infused Over: 4 mins; Site: left antecubital; ld1 10:32 Drug: Ondansetron IVP 4 mg Route: IVP; Site: left antecubital; ld1 11:10 Drug: NS 0.9% IV 1000 ml Route: IV; Rate: 125 ml/hr; Site: left antecubital; ld1 13:12 Drug: Pantoprazole PO 40 mg Route: PO; ld1 Medication: 10:03 VIS not applicable for this client. ld1 Outcome: 13:07 Discharge ordered by . [facility] 14:46 Discharged to home ambulatory, with family. ld1 14:46 Condition: stable 14:46 Discharge instructions given to patient, family, Instructed on discharge instructions, follow up and referral plans. Demonstrated understanding of instructions, follow-up care, medications, Prescriptions given X 3. 14:46 Patient left the ED. ld1 Signatures: Dispatcher [employer] EDTN Jameel Valdivia MD MD cha Mickail, Joel, PA PA Martha Mcgee, RN RN ld1 Esperanza Buckner RN RN [email or web address]
--- NOTE | 2022-07-19 13:08 | EDPHYS ---
Physician Documentation [facility] Name: Jesse Serna Age: 81 yrs Sex: Male : 1940 Arrival Date: 07/19/2022 Time: 09:39 Bed 16 Private MD: ED Physician Jameel Valdivia HPI: 07/19 12:59 This 81 yrs old Male presents to ER via EMS with complaints of Abdominal Pain. jacqueline 12:59 The patient presents with abdominal pain in the upper abdomen, in the lower abdomen. jacqueline Onset: The symptoms/episode began/occurred 2 day(s) ago. The symptoms do not radiate. Associated signs and symptoms: none. Modifying factors: The symptoms are alleviated by nothing, the symptoms are aggravated by nothing. Severity of pain: At its worst the pain was mild in the emergency department the pain is unchanged. The patient has experienced similar episodes in the past, several times. Historical: - Allergies: 10:01 Aspirin; ld1 - Home Meds: 10:01 Eliquis oral [Active]; enalapril maleate Oral [Active]; Protonix Oral [Active]; ld1 - PMHx: 10:01 Arthritis; Atrial fibrillation; Hypertension; prostate cancer- in remission; ld1 - PSHx: 10:01 Appendectomy; ld1 - Immunization history:: Adult Immunizations up to date, Client reports receiving the 2nd dose of the Covid vaccine. - Social history:: Smoking status: Patient denies any tobacco usage or history of. Patient/guardian denies using alcohol. - Family history:: not pertinent. ROS: 12:59 Constitutional: Negative for fever, chills, and weight loss, Eyes: Negative for injury, jacqueline pain, redness, and discharge, ENT: Negative for injury, pain, and discharge, Neck: Negative for injury, pain, and swelling, Cardiovascular: Negative for chest pain, palpitations, and edema, Respiratory: Negative for shortness of breath, cough, wheezing, and pleuritic chest pain, Back: Negative for injury and pain, : Negative for injury, bleeding, discharge, and swelling, MS/Extremity: Negative for injury and deformity, Skin: Negative for injury, rash, and discoloration, Neuro: Negative for headache, weakness, numbness, tingling, and seizure, Psych: Negative for depression, anxiety, suicide ideation, homicidal ideation, and hallucinations, Allergy/Immunology: Negative for hives, rash, and allergies, Endocrine: Negative for neck swelling, polydipsia, polyuria, polyphagia, and marked weight changes, Hematologic/Lymphatic: Negative for swollen nodes, abnormal bleeding, and unusual bruising. 12:59 Abdomen/GI: Positive for abdominal pain, of the epigastric area, right upper quadrant and left upper quadrant. Exam: 12:59 Constitutional: This is a well developed, well nourished patient who is awake, alert, jacqueline and in no acute distress. Head/Face: Normocephalic, atraumatic. Eyes: Pupils equal round and reactive to light, extra-ocular motions intact. Lids and lashes normal. Conjunctiva and sclera are non-icteric and not injected. Cornea within normal limits. Periorbital areas with no swelling, redness, or edema. ENT: Nares patent. No nasal discharge, no septal abnormalities noted. Tympanic membranes are normal and external auditory canals are clear. Oropharynx with no redness, swelling, or masses, exudates, or evidence of obstruction, uvula midline. Mucous membranes moist. Neck: Trachea midline, no thyromegaly or masses palpated, and no cervical lymphadenopathy. Supple, full range of motion without nuchal rigidity, or vertebral point tenderness. No Meningismus. Chest/axilla: Normal chest wall appearance and motion. Nontender with no deformity. No lesions are appreciated. Cardiovascular: Regular rate and rhythm with a normal S1 and S2. No gallops, murmurs, or rubs. Normal PMI, no JVD. No pulse deficits. Respiratory: Lungs have equal breath sounds bilaterally, clear to auscultation and percussion. No rales, rhonchi or wheezes noted. No increased work of breathing, no retractions or nasal flaring. Abdomen/GI: Soft, non-tender, with normal bowel sounds. No distension or tympany. No guarding or rebound. No evidence of tenderness throughout. Back: No spinal tenderness. No costovertebral tenderness. Full range of motion. Male : Normal genitalia with no discharge or lesions. Skin: Warm, dry with normal turgor. Normal color with no rashes, no lesions, and no evidence of cellulitis. MS/ Extremity: Pulses equal, no cyanosis. Neurovascular intact. Full, normal range of motion. Neuro: Awake and alert, GCS 15, oriented to person, place, time, and situation. Cranial nerves II-XII grossly intact. Motor strength 5/5 in all extremities. Sensory grossly intact. Cerebellar exam normal. Normal gait. Psych: Awake, alert, with orientation to person, place and time. Behavior, mood, and affect are within normal limits. 12:59 ECG was reviewed by the Attending Physician. Vital Signs: 09:59 BP 155 / 96; Pulse 97; Resp 46; Temp 97.9(O); Pulse Ox 97% on R/A; Weight 72.57 kg; ld1 Height 5 ft. 6 in. ; Pain 8/10; 11:09 BP 183 / 68; Pulse 57; Resp 22; Pulse Ox 98% on R/A; ld1 12:45 BP 146 / 64; Pulse 59; Resp 22 S; Pulse Ox 95% on R/A; kc6 14:06 BP 156 / 71; Pulse 60; Resp 18; Pulse Ox 98% on R/A; ld1 09:59 Body Mass Index 25.82 (72.57 kg, 167.64 cm) ld1 09:59 Pain Scale: Adult ld1 MDM: 10:00 Patient medically screened. jacqueline 13:04 Differential diagnosis: Cholelithiasis, diverticulitis, gastroesophageal reflux jacqueline disease, non-specific abd pain, pancreatitis, Peptic Ulcer Disease, Perf. Duodenal Ulcer, urinary tract infection. Data reviewed: vital signs, nurses notes, EMS record, lab test result(s), EKG, radiologic studies, CT scan, plain films. Consideration of Admission/Observation Escalation of care including admission/observation considered. I considered the following discharge prescriptions or medication management in the emergency department Medications were administered in the Emergency Department. See MAR. Test considered but Not performed: Ultrasound no gb usg. Care significantly affected by the following chronic conditions: Hypertension, oa, afib, prostrate ca. 13:06 Counseling: I had a detailed discussion with the patient and/or guardian regarding: the jacqueline historical points, exam findings, and any diagnostic results supporting the discharge/admit diagnosis, lab results, radiology results, the need for outpatient follow up, for definitive care, a family practitioner, a field service engineer. 07/19 10:03 Order name: CBC with Diff; Complete Time: 12:42 ld1 07/19 10:03 Order name: CMP; Complete Time: 12:42 [facility] 07/19 10:03 Order name: Lipase; Complete Time: 12:42 [facility] 07/19 10:03 Order name: Urinalysis w/ reflexes; Complete Time: 12:42 [facility] 07/19 10:03 Order name: Basic Metabolic Panel [facility] 07/19 10:03 Order name: CBC with Diff jacqueline 07/19 10:03 Order name: LFT's; Complete Time: 12:42 [facility] 07/19 10:03 Order name: Magnesium; Complete Time: 12:42 [facility] 07/19 10:03 Order name: NT PRO-BNP; Complete Time: 12:42 [facility] 07/19 10:03 Order name: PT-INR; Complete Time: 12:42 [facility] 07/19 10:03 Order name: Troponin HS; Complete Time: 12:42 [facility] 07/19 10:03 Order name: Lipase [facility] 07/19 10:03 Order name: XRAY Chest (1 view); Complete Time: 12:42 [facility] 07/19 10:28 Order name: CT Abd/Pelvis - PO and IV Contrast: oral contrast 30 min; Complete Time: [facility] 12:42 07/19 10:03 Order name: EKG; Complete Time: 10:05 [facility] 07/19 10:03 Order name: Cardiac monitoring; Complete Time: 10:32 [facility] 07/19 10:03 Order name: EKG - Nurse/Tech; Complete Time: 10:32 [facility] 07/19 10:03 Order name: IV Saline Lock; Complete Time: 10:32 [facility] 07/19 10:03 Order name: Labs collected and sent; Complete Time: 10:32 [facility] 07/19 10:03 Order name: O2 Per Protocol; Complete Time: 10:04 [facility] 07/19 10:03 Order name: O2 Sat Monitoring; Complete Time: 10:04 [facility] EC:59 Rate is 59 beats/min. Rhythm is regular. QRS [place] is Normal. [place] interval is normal. QRS jacqueline interval is normal. QT interval is normal. No Q waves. T waves are Normal. No ST changes noted. Clinical impression: NSR w/ Non-specific ST/T Changes, Abnormal EKG without significant change, and No evidence of ischemia. Interpreted by me. Reviewed by me. Administered Medications: 10:32 Drug: NS 0.9% IV 500 ml Route: IV; Rate: bolus; Site: left antecubital; ld1 10:32 Drug: Famotidine IVP 20 mg Route: IVP; Site: left antecubital; ld1 10:32 Drug: morphine IVP or IV 4 mg Route: IVP; Infused Over: 4 mins; Site: left antecubital; ld1 10:32 Drug: Ondansetron IVP 4 mg Route: IVP; Site: left antecubital; ld1 11:10 Drug: NS 0.9% IV 1000 ml Route: IV; Rate: 125 ml/hr; Site: left antecubital; ld1 13:12 Drug: Pantoprazole PO 40 mg Route: PO; ld1 Disposition Summary: 07/19/22 13:07 Discharge Ordered Location: Home jacqueline Problem: new jacqueline Symptoms: have improved jacqueline Condition: Stable jacqueline Diagnosis - Epigastric abdominal tenderness jacqueline - Abdominal pain, Generalized jacqueline Followup: jacqueline - With: Private Physician - When: 2 - 3 days - Reason: Recheck today's complaints, Continuance of care, Re-evaluation by your physician Followup: jacqueline - With: Tony Mary MD - When: 2 - 3 days - Reason: Recheck today's complaints, Re-evaluation by your physician Discharge Instructions: - Discharge Summary Sheet jacqueline - Abdominal Pain, Adult jacqueline - Abdominal Pain, Adult, [id number] [facility] Forms: - Medication Reconciliation Form jacqueline - Thank You Letter jacqueline - Antibiotic Education jacqueline - Prescription Opioid Use [facility] Prescriptions: - Protonix 40 mg Oral Tablet - take 1 tablet by ORAL route once daily; 30 tablet; Refills: 0, Product jacqueline Selection Permitted - Zofran 4 mg Oral Tablet - take 1 tablet by ORAL route every 12 hours As needed; 20 tablet; Refills: 0, [facility] Product Selection Permitted - dicyclomine 20 mg Oral Tablet - take 1 tablet by ORAL route 4 times per day; 28 tablet; Refills: 0, Product [facility] Selection Permitted Signatures: Dispatcher [employer] EDJameel Flores MD MD cha Sims, Lauren RN RN ld1 Corrections: (The following items were deleted from the chart) 10:04 10:03 IV Saline Lock ordered. ld1 ld1 10:04 10:03 Labs collected and sent ordered. ld1 ld1 10:49 10:05 Abdomen Pelvis W Con+CT.RAD.BRZ ordered. EDMS EDMS
[2022-07-19] MEDS ORDERED: PANTOPRAZOLE 40MG TABLET PO ONE (13:12)
[2022-07-19 15:00] VITALS: TEMP 97.9
[2022-07-19 15:06] VITALS: BP 156/71; O2SAT 98
--- NOTE | 2022-07-21 16:03 | EKG ---
Test Date: 2022-07-19 Test Time: 10:21:38 [employer] Shoveler: Ahmet BROTHERS MEASUREMENT RESULTS: Intervals: Rate: 57 MA: 146 QRSD: 146 QT: 488 QTc: 474 Leslie: P: 35 MA: 146 QRS: -56 T: 6 INTERPRETIVE STATEMENTS: Sinus bradycardia with premature supraventricular complexes Right bundle branch block Left anterior fascicular block Bifascicular block Abnormal ECG Compared to ECG 02/01/2022 18:03:45 Atrial premature complex(es) now present T-wave abnormality no longer present Possible ischemia no longer present Bifascicular block still present Electronically Signed On 07-21-22 15:58:01 CDT by Solitario Guzmán
== END 2022-07-19 14:46 | disposition home or self-care (01) ==
LOC: ER 09:39
DX: R10.816 Epigastric abdominal tenderness (principal); R10.84 Generalized abdominal pain
CPT/HCPCS: 36415; 71045; 74177; 80053; 81003; 82248; 83690; 83735; 83880; 84484; 85025; 85610; 93005; 96374; 96375; 99285; J2405; J7030; J7040; Q9967

== ENCOUNTER 2022-10-06 11:59 | Inpatient (IN) | payer SELFPAY ==
--- OUTSIDE RECORDS SUMMARY | 2022-10-06 12:11 | XMS REPORT | Clinical Summary ---
:1940 Author Organization [facility] MD [facility] Address [address] [place] [address] Care Team Providers Name Role Phone Pako Lopez MD Unavailable Nick Delgado MD Primary Care Provider Marek Saini MD Unavailable Allergies No known active allergies Medications Medication Sig Dispensed Refills Start Date End Date Status acetaminophen Take 500 mg by 0 A ctive (TYLENOL) 500 mg mouth every 6 tablet (six) hours as needed for mild pain. aspirin 81 mg Chew 1 tablet 0 05/27/2021 A ctive chewable (81 mg) daily. tabletIndications: heart health apixaban (Eliquis) 5 Take 1 tablet 60 tablet 5 05/26/2021 Active mg (5 mg) by tabletIndications: mouth every 12 prevent blood clot (twelve) hours. tamsulosin (FLOMAX) Take 1 capsule 60 capsule 11 10/30/2021 Active 0.4 mg 24 hr (0.4 mg) by capsuleIndications: mouth twice Adenocarcinoma of daily. prostate [...] tabletIndications: MOUTH DAILY Adenocarcinoma of prostate metoprolol succinate TAKE ONE 90 tablet 1 12/02/2021 Active (TOPROL XL) 25 mg 24 TABLET BY hr MOUTH ONCE tabletIndications: DAILY ( HOLD Essential (primary) DOSE IF SBP hypertension <110 OR HR <55 ) amoxicillin-clavulan Take 1 tablet 14 tablet 0 10/03/2022 Active ate (Augmentin) 875 (875 mg) by mg-125 mg per mouth twice tabletIndications: daily. Urinary tract infection metoprolol succinate Take 1 tablet 90 tablet 3 10/27/202011/13 Discontinued (TOPROL XL) 25 mg 24 (25 mg) by 2 hr mouth daily. tabletIndications: Hold dose if blood pressure, systolic blood heart rate pressure (top number) is less than 110 or heart rate less than 55. enalapril (VASOTEC) Take 1 tablet 30 tablet 3 05/26/202111/02 Discontinued 20 mg (20 mg) by 2 tabletIndications: mouth daily. high blood pressure Skip dose if systolic blood pressure (top number) is less than 110. pantoprazole Take 1 tablet 30 tablet 5 05/26/2021 Di scontinued (Protonix) 40 mg EC (40 mg) by 2 tabletIndications: mouth daily. prevent heartburn/indigestio n and acid reflux Active Problems Patient Care [...] #1: Name: Latoya Serna ( Daughter ) [phone] Contact #2: Name: Phone Number: Contact #3: [...] Encounters Date Type Specialty Care Team Description 10/05/2022 Orders Only Radiation Oncology Kirstie Joyner Adenocar cinoma of M, FLAKER TENDER prostate (Prima ry Dx) 10/03/2022 Emergency Emergency Medicine Josiah Garay Hematuria (Primary Dx); MD Gianfranco Hypertension; Urinary tract i nfection 10/03/2022 Travel 06/09/2022 Refill Cardiology Aleksandr Essential (prim aislinn) ELIZABETH Claros hypertension 12/02/2021 Refill Cardiology Aleksandr Essential (prim aislinn) ELIZABETH Claros hypertension 11/19/2021 Refill Genitourinary Oncology Yfn Palacios Aden ocYulissa prostate 11/02/2021 Refill Genitourinary Oncology Yfn Palacios Aden ocarcinograham of prostate after 10/06/2021 Immunizations Name Administration Dates Next Due Kendra [...] at Date Recorded Male 05/22/2021 5:00 PM [employer] Job Start Date Occupation Industry Not on file Not on file Not on file Obstetrics History Last Filed Vital Signs Vital Sign Reading Time Taken Comments Blood Pressure 176/67 10/03/2022 2:45 PM CDT Pulse 57 10/03/2022 2:45 PM CDT Temperature 36.1 C (97 F) 10/03/2022 2:45 PM CDT Respiratory Rate 18 10/03/2022 2:45 PM CDT Oxygen Saturation 97% 10/03/2022 2:45 PM CDT Inhaled Oxygen Concentration - - Weight - - Height - - Body Mass Index - - Plan of Treatment Health Maintenance Due Date Last Done Comments COVID-19 Vaccination (2 - Kendra risk series) 06/28/2020 0 05/31/2020 Procedures Procedure Name Priority Date/Time Associated Comments Diagnosis URINALYSIS MICROSCOPIC Routine 10/03/2022 12:35 R esults for this EXAM PM CDT procedure are i n the results section. URINALYSIS WITH Routine 10/03/2022 12:35 Results for this MICROSCOPIC IF INDICATED PM CDT pro cedure are in the results section. URINE CULTURE Routine 10/03/2022 12:35 Results fo r this PM CDT procedure are i n the results section. FRACTIONATED BILIRUBIN Routine 10/03/2022 12:17 R esults for this PM CDT procedure are i n the results section. TOTAL PROTEIN Routine 10/03/2022 12:17 Results fo r this PM CDT procedure are i n the results section. ASPARTATE Routine 10/03/2022 12:17 Results for this AMINOTRANSFERASE PM CDT procedure a re in the results section. ALANINE AMINOTRANSFERASE Routine 10/03/2022 12:17 Results for this PM CDT procedure are i n the results section. ALKALINE PHOSPHATASE Routine 10/03/2022 12:17 Res ults for this PM CDT procedure are i n the results section. ALBUMIN LEVEL Routine 10/03/2022 12:17 Results fo r this PM CDT procedure are i n the results section. CALCIUM LEVEL TOTAL Routine 10/03/2022 12:17 Resu lts for this PM CDT procedure are i n the results section. .GLOMERULAR FILTRATION Routine 10/03/2022 12:17 R esults for this RATE PM CDT procedure are i n the results section. SERUM CREATININE Routine 10/03/2022 12:17 Results for this PM CDT procedure are i n the results section. ELECTROLYTE PANEL Routine 10/03/2022 12:17 Result s for this PM CDT procedure are i n the results section. BLOOD UREA NITROGEN Routine 10/03/2022 12:17 Resu lts for this PM CDT procedure are i n the results section. GLUCOSE LEVEL Routine 10/03/2022 12:17 Results fo r this PM CDT procedure are i n the results section. MANUAL DIFFERENTIAL STAT 10/03/2022 12:17 Resu lts for this PM CDT procedure are i n the results section. Results CBC STAT 10/03/2022 12:17 Results for this PM CDT procedure are i n the results section. PROTHROMBIN TIME Routine 10/03/2022 12:17 Results for this PM CDT procedure are i n the results section. APTT Routine 10/03/2022 12:17 Results for this PM CDT procedure are i n the results section. LACTATE DEHYDROGENASE Routine 10/03/2022 12:17 Re sults for this PM CDT procedure are i n the results section. PHOSPHORUS LEVEL Routine 10/03/2022 12:17 Results for this PM CDT procedure are i n the results section. MAGNESIUM LEVEL Routine 10/03/2022 12:17 Results for this PM CDT procedure are i n the results section. COMPREHENSIVE METABOLIC Routine 10/03/2022 12:17 PANEL PM CDT COMPLETE BLOOD COUNT W/ Routine 10/03/2022 12:17 DIFFERENTIAL PM CDT after 10/06/2021 Results (ABNORMAL) Urinalysis Microscopic Exam (10/03/2022 12:35 PM CDT) athologist Signature UA WBC NOT SEEN 0 - 2 /HPF [facility] Comment: Some reporting parameters within the Uri nalysis test have changed due to the implementation of new instrumentation in the Main [facility], allowing greater sensitivity of measurement. Urinalysis results rep orted by the [facility] using existing instrumentation, as well as Urinalysis t esting performed manually or by backup methodology at the [facility] will remain relatively unchanged. New reporting parameters and units will not be reported for all campuses. UA RBC >182 (H) 0 - 2 /HPF [facility] CENTER UA Mucous NOT SEEN Not Seen-Trace /HPF AK MD [facility] UA Bacteria NOT SEEN NOT SEEN /HPF [facility] UA Squam Epi NOT SEEN None-Occasional /HPF [facility] Specimen Anatomical Collection Method Collection Time Receive d Time (Source) Location / / Volume Laterality Urine 10/03/2022 12:35 10/03/2022 PM CDT 12:40 PM CDT Josiah Garay MD LAB BLOOD ORDERABLES Performing Organization Address City/State/ZIP Code Phon e Number [facility] Unless otherwise noted, [place] [address] [place] all lab tests performed by: Division of Pathology and Laboratory Medicine [address] (ABNORMAL) Urinalysis w/Microscopic if Indicated (10/03/2022 12:35 PM CDT) [facility] Method Time Signature UA Color Audelia (A) Straw-Yel [facility] UA Appear Cloudy (A) Clear [facility] UA Glucose NEG NEG mg/dL [facility] UA Bili NEG NEG [facility] UA Ketones 20 (A) NEG mg/dL [facility] UA Spec Grav 1.014 1.003 - [facility] 1.035 [facility] UA Blood Large (A) NEG [facility] UA pH 7.0 5.0 - 9.0 [facility] UA Protein 100 (A) NEG mg/dL [facility] UA Urobilinogen NEG NEG [facility] UA Nitrite NEG NEG [facility] UA Leuk Est Small (A) NEG [facility] Specimen Anatomical Collection Method Collection Time Receive d Time (Source) Location / / Volume Laterality Urine 10/03/2022 12:35 10/03/2022 PM CDT 12:40 PM CDT Josiah Garay MD URINE ORDERABLES Performing Organization Address City/[facility] [address]/[facility] Phon e Number [facility] Unless otherwise noted, [address] all lab tests performed by: Division of Pathology and Laboratory Medicine [address] [place] [address] (ABNORMAL) Urine Culture (10/03/2022 12:35 PM CDT) [facility] Method Time Signature Final Report <10,000 cfu/ml Normal site sapphire present. AK MD Generally of low significance. IDALIA Correlate with clinical data and culture history. [facility] [place] (A) Specimen Anatomical Collection Method Collection Time Receive d Time (Source) Location / / Volume Laterality Urine 10/03/2022 12:35 10/03/2022 2:32 PM CDT PM CDT Josiah Garay MD MICROBIOLOGY - GENERAL ORDER AMINAH Performing Organization Address City/State/ZIP [place] Phon e Number [facility] Unless otherwise noted, [address] all lab tests performed by: Division of Pathology and Laboratory Medicine [address] [place] [address] .Serum Creatinine (10/03/2022 12:17 PM CDT) athologist Signature Creatinine 0.78 0.67 - 1.17 [facility] mg/dL [facility] Specimen Anatomical Collection Method Collection Time Receive d Time (Source) Location / / Volume Laterality Blood 10/03/2022 12:17 10/03/2022 PM CDT 12:25 PM CDT Josiah Garay MD LAB BLOOD ORDERABLES Performing Organization Address City/State/ZIP Code Phon e Number [facility] Unless otherwise noted, [address] all lab tests performed by: Division of Pathology and Laboratory Medicine [address] (ABNORMAL) .CBC (10/03/2022 12:17 PM CDT) athologist Signature WBC 6.0 4.1 - 10.5 AK MD K/[facility] RBC 4.48 4.30 - AK MD 6.04 /[facility] Hgb 13.1 (L) 13.3 - AK MD 17.4 gm/dL [facility] Hct 40.4 39.5 - AK MD 51.8 % [facility] MCV 90 82 - 99 [facility] MCH 29.2 26.6 - AK MD 33.2 pg [facility] MCHC 32.4 31.1 - AK MD 35.2 gm/dL [facility] RDW-SD 50.4 (H) 37.5 - AK MD 49.7 [facility] RDW-CV 15.3 11.6 - AK MD 15.5 % [facility] Platelet count 181 160 - 397 [facility] K/[facility] MPV 10.7 9.1 - 12.6 AK MD [facility] INRBC 0.0 0.0 - 0.1 AK MD /100 WBC [facility] Comment: The INRBC (instrument NRBC) value reflec [...] (Source) Location / / Volume Laterality Blood 10/03/2022 12:17 10/03/2022 PM CDT 12:22 PM CDT Josiah Garay MD LAB BLOOD ORDERABLES Performing Organization Address City/State/ZIP Code Phon e Number [facility] Unless otherwise noted, [address] all lab tests performed by: Division of Pathology and Laboratory Medicine [facility] Glomerular Filtration Rate (10/03/2022 12:17 PM CDT) athologist Signature eGFR 90 >=60 [facility] mL/min/1.73 [facility]ENTER sq. m Comment: The eGFRcr is calculated with the 2020 KD-EPI creatinine equation using creatinine, patient's age, and sex for adults 18 years of age and older. Other factors, especially muscle mass, may affect accuracy and need to be considered. According to the Kidney Disease: Improvi ng Global Outcomes (KDIGO) CKD Work Group 2012 Clinical Practice Guideline, chronic kidney disease (CKD) is defined as the abnormalities of kidney structure or function, present for more than 3 months, with implications for health. CKD should be c lassified by cause, GFR category, and albuminuria category. KDIGO guidelines provide the following GFR categories Stage Description GFR mL/min/1.73 m2 G1* Normal or high >= 90 G2* Mildly decreased 60-89 G3a Mildly to moderately decreased 45-59 G3b Moderately to severely decreased 30- 44 G4 Severely decreased 15-29 G5 Kidney failure <15 *In the absence of evidence of kidney da mage, neither G1 nor G2 fulfill criteria for CKD. Specimen Anatomical Collection Method Collection Time Receive d Time (Source) Location / / Volume Laterality Blood 10/03/2022 12:17 10/03/2022 PM CDT 12:25 PM CDT Josiah Garay MD LAB BLOOD ORDERABLES Performing Organization Address City/State/ZIP Code Phon e Number [facility] Unless otherwise noted, [address] all lab tests performed by: Division of Pathology and Laboratory Medicine [address] [place] [address] Fractionated Bilirubin (10/03/2022 12:17 PM CDT) athologist Signature Bili Total 0.8 <=1.2 mg/dL [facility] Comment: Indocyanine Green (ICG) may cause falsel y elevated bilirubin results. Total and direct bilirubin must not be measured from samples containing indocyanine green. False elevation of total bilirubin can b e seen in patients with IgG concentrations above 28 g/L. Bili Direct 0.2 <=0.3 mg/dL [facility] Comment: Indocyanine Green (ICG) may cau se falsely elevated bilirubin results. Total and direct bilirubin must not be measure d from samples containing indocyanine green. Bili Indirect 0.6 0.0 - 0.9 mg/dL [place] MD [facility] Specimen Anatomical Collection Method Collection Time Receive d Time (Source) Location / / Volume Laterality Blood 10/03/2022 12:17 10/03/2022 PM CDT 12:25 PM CDT Josiah Garay MD LAB BLOOD ORDERABLES Performing Organization Address City/State/ZIP Code Phon e Number [facility] Unless otherwise noted, [address] all lab tests performed by: Division of Pathology and Laboratory Medicine [address] [facility] aPTT (10/03/2022 12:17 PM CDT) athologist [facility] aPTT 31.7 24.1 - 35.5 [facility] second(s) [facility] Specimen Anatomical Collection Method Collection Time Receive d Time (Source) Location / / Volume Laterality Blood 10/03/2022 12:17 10/03/2022 PM CDT 12:22 PM CDT Josiah Garay MD LAB BLOOD ORDERABLES Performing Organization Address City/State/ZIP Code Phon e Number [facility] Unless otherwise noted, [address] all lab tests performed by: Division of Pathology and Laboratory Medicine [address] [place] (ABNORMAL) Differential (10/03/2022 12:17 PM CDT) athologist Signature Neutrophil % 76.9 (H) 43.2 - [facility] 72.7 % [facility] Lymphocyte % 11.5 (L) 16.8 - [facility] 46.2 % [facility]ENTER Monocyte % 9.8 5.1 - 12.5 [facility] % [facility] Eosinophil % 0.8 0.4 - 6.3 [facility] % [facility] Basophil % 0.7 0.2 - 1.4 [facility] % [facility] IGRE % 0.3 0.1 - 1.5 [facility] % [facility] Comment: IGRE % count includes Metamyelo cytes, Myelocytes, and Promyelocytes. Neutrophil Abs 4.60 1.95 - 7.25 K/uL [place] MD [facility] Lymphocyte Abs 0.69 (L) 1.01 - 3.24 K/uL [place] MD JASS CARLSON [facility] Monocyte Abs 0.59 0.24 - 0.85 K/uL AK MD [facility] Eosinophil Abs 0.05 0.02 - 0.50 K/uL AK MD JASS CARLSON [facility] Basophil Abs 0.04 0.02 - 0.09 K/uL [place] MD OBEY ARREDONDO [facility] IG Abs 0.02 0.01 - 0.12 K/uL [place] MD COMPA Valdez [facility] Specimen Anatomical Collection Method Collection Time Receive d Time (Source) Location / / Volume Laterality Blood 10/03/2022 12:17 10/03/2022 PM CDT 12:22 PM CDT Josiah Garay MD LAB BLOOD ORDERABLES Performing Organization Address City/[facility] [address]/[facility] Phon e Number [facility] Unless otherwise noted, [address] all lab tests performed by: Division of Pathology and Laboratory Medicine [address] [place] [address] Prothrombin Time with INR (10/03/2022 12:17 PM CDT) P athologist Signature PT 13.7 11.9 - 14.5 [facility](s) [facility] INR 1.06 0.87 - 1.12 [facility] Specimen Anatomical Collection Method Collection Time Receive d Time (Source) Location / / Volume Laterality Blood 10/03/2022 12:17 10/03/2022 PM CDT 12:22 PM CDT Josiah Garay MD LAB BLOOD ORDERABLES Performing Organization Address City/[facility] [address]/[facility] Phon e Number [facility] Unless otherwise noted, [address] all lab tests performed by: Division of Pathology and Laboratory Medicine [address] [place] BUN (10/03/2022 12:17 PM CDT) P athologist Signature BUN 13 6 - 23 [facility] mg/dL [facility] Specimen Anatomical Collection Method Collection Time Receive d Time (Source) Location / / Volume Laterality Blood 10/03/2022 12:17 10/03/2022 PM CDT 12:25 PM CDT Josiah Garay MD LAB BLOOD ORDERABLES Performing Organization Address City/State/ZIP Code Phon e Number [facility] Unless otherwise noted, [address] all lab tests performed by: Division of Pathology and Laboratory Medicine [address] ALT (10/03/2022 12:17 PM CDT) P athologist Signature ALT 10 <=41 U/L [facility] Specimen Anatomical Collection Method Collection Time Receive d Time (Source) Location / / Volume Laterality Blood 10/03/2022 12:17 10/03/2022 PM CDT 12:25 PM CDT Josiah Garay MD LAB BLOOD ORDERABLES Performing Organization Address City/[facility] [address]/ZIP Code Phon e Number [facility] Unless otherwise noted, [address] all lab tests performed by: Division of Pathology and Laboratory Medicine [address] Aspartate Aminotransferase (10/03/2022 12:17 PM CDT) P athologist Signature AST 17 <=40 U/L [facility] Specimen Anatomical Collection Method Collection Time Receive d Time (Source) Location / / Volume Laterality Blood 10/03/2022 12:17 10/03/2022 PM CDT 12:25 PM CDT Josiah Garay MD LAB BLOOD ORDERABLES Performing Organization Address City/[facility] [address]/ZIP Code Phon e Number [facility] Unless otherwise noted, [address] all lab tests performed by: Division of Pathology and Laboratory Medicine [address] Total Protein (10/03/2022 12:17 PM CDT) P athologist Signature Total Protein 6.8 6.4 - 8.3 [facility] g/dL [facility] Specimen Anatomical Collection Method Collection Time Receive d Time (Source) Location / / Volume Laterality Blood 10/03/2022 12:17 10/03/2022 PM CDT 12:25 PM CDT Josiah Garay MD LAB BLOOD ORDERABLES Performing Organization Address City/State/ZIP Code Phon e Number [facility] Unless otherwise noted, [address] all lab tests performed by: Division of Pathology and Laboratory Medicine [address] Phosphorus Level (10/03/2022 12:17 PM CDT) [facility] Phosphorus 3.1 2.5 - 4.5 [facility] mg/dL [facility] Specimen Anatomical Collection Method Collection Time Receive d Time (Source) Location / / Volume Laterality Blood 10/03/2022 12:17 10/03/2022 PM CDT 12:25 PM CDT Josiah Garay MD LAB BLOOD ORDERABLES Performing Organization Address City/[facility] [address]/ZIP Code Phon e Number [facility] Unless otherwise noted, [address] all lab tests performed by: Division of Pathology and Laboratory Medicine [address] [place] [address] [place] Alkaline Phosphatase (10/03/2022 12:17 PM CDT) [facility] Alk Phos 82 40 - 129 [facility] Specimen Anatomical Collection Method Collection Time Receive d Time (Source) Location / / Volume Laterality Blood 10/03/2022 12:17 10/03/2022 PM CDT 12:25 PM CDT Josiah Garay MD LAB BLOOD ORDERABLES Performing Organization Address City/[facility] [address]/ZIP Code Phon e Number [facility] Unless otherwise noted, [address] all lab tests performed by: Division of Pathology and Laboratory Medicine [address] [place] [address] [place] Magnesium Level (10/03/2022 12:17 PM CDT) [facility] Magnesium 2.1 1.6 - 2.6 [facility] mg/dL [facility] Specimen Anatomical Collection Method Collection Time Receive d Time (Source) Location / / Volume Laterality Blood 10/03/2022 12:17 10/03/2022 PM CDT 12:25 PM CDT Josiah Garay MD LAB BLOOD ORDERABLES Performing Organization Address City/[facility] [address]/ZIP [place] Phon e Number [facility] Unless otherwise noted, [address] all lab tests performed by: Division of Pathology and Laboratory Medicine [facility] [place] (ABNORMAL) LDH (10/03/2022 12:17 PM CDT) [facility] LDH 494 (H) 135 - 225 [facility] Comment: Specimen is hemolyzed. Results may be fa lsely elevated. Repeat test if needed. Results greater than 1651 U/L may not be reliable due to matrix effect with extended dilution as it exceeds the roller hand's recommended limit. Caution should be exercised when interpreting such values and done in conjunction with clinical context. Specimen Anatomical Collection Method Collection Time Receive d Time (Source) Location / / Volume Laterality Blood 10/03/2022 12:17 10/03/2022 PM CDT 12:25 PM CDT Josiah Garay MD LAB BLOOD ORDERABLES Performing Organization Address City/[facility] [address]/[facility] Phon e Number [facility] Unless otherwise noted, [address] all lab tests performed by: Division of Pathology and Laboratory Medicine [address] [place] Glucose Level (10/03/2022 12:17 PM CDT) athologist Signature Glucose Level 90 70 - 99 [facility] mg/dL [facility] Comment: Effective 10/08/15, the glucose reference intervals have been updated based on [place] [employer] guidelines (Standards of Medical Care [...] (Source) Location / / Volume Laterality Blood 10/03/2022 12:17 10/03/2022 PM CDT 12:25 PM CDT Josiah Garay MD LAB BLOOD ORDERABLES Performing Organization Address City/[facility] [address]/[facility] Phon e Number [facility] Unless otherwise noted, [address] all lab tests performed by: Division of Pathology and Laboratory Medicine [address] [place] Calcium Level (10/03/2022 12:17 PM CDT) athologist Signature Calcium Lvl 9.1 8.4 - 10.2 [facility] mg/dL [facility] Specimen Anatomical Collection Method Collection Time Receive d Time (Source) Location / / Volume Laterality Blood 10/03/2022 12:17 10/03/2022 PM CDT 12:25 PM CDT Josiah Gaary MD LAB BLOOD ORDERABLES Performing Organization Address City/[facility] [address]/ZIP Code Phon e Number [facility] Unless otherwise noted, [address] all lab tests performed by: Division of Pathology and Laboratory Medicine Rashad Vu Albumin Level (10/03/2022 12:17 PM CDT) athologist Signature Albumin Lvl 4.2 3.5 - 5.2 [facility] gm/dL [facility] Specimen Anatomical Collection Method Collection Time Receive d Time (Source) Location / / Volume Laterality Blood 10/03/2022 12:17 10/03/2022 PM CDT 12:25 PM CDT Josiah Garay MD LAB BLOOD ORDERABLES Performing Organization Address City/[facility] [address]/ZIP Code Phon e Number [facility] Unless otherwise noted, [address] all lab tests performed by: Division of Pathology and Laboratory Medicine [facility] ChurchWavesgerm[facility] Vu Electrolyte Panel (10/03/2022 12:17 PM CDT) athologist Signature Sodium Lvl 137 136 - 145 [facility] mEq/L [facility] Potassium Lvl 3.8 3.5 - 5.1 [facility] mEq/L [facility] Chloride 103 98 - 107 [facility] mEq/L [facility] CO2 24 22 - 29 [facility] mEq/L [facility] Anion Gap 10 4 - 14 [facility] mEq/L [facility] Specimen Anatomical Collection Method Collection Time Receive d Time (Source) Location / / Volume Laterality Blood 10/03/2022 12:17 10/03/2022 PM CDT 12:25 PM CDT Josiah Garay MD LAB BLOOD ORDERABLES Performing Organization Address City/[facility] [address]/ZIP Code Phon e Number [facility] Unless otherwise noted, [address] all lab tests performed by: Division of Pathology and Laboratory Medicine Rashad Vu after 10/06/2021 Advance Directives Code Status Date Activated Date Inactivated Comments Full Code 05/22/2021 4:44 PM 05/26/2021 7:54 PM Code Status Date Activated Date Inactivated Comments Full Code 05/22/2021 4:44 PM 05/22/2021 4:44 PM Full Code 08/21/2020 11:52 PM 08/24/2020 5:55 PM Full Code 03/02/2020 8:29 PM 03/07/2020 11:09 PM Full Code 02/26/2020 9:33 PM 02/29/2020 8:36 PM Care Teams 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
--- OUTSIDE RECORDS SUMMARY | 2022-10-06 12:20 | XMS REPORT | Continuity of Care Document ---
:1940 Author Organization Formerly [facility] t Address [address] [place] [address] Care Team Providers Name Role Phone Brittany Lockwood Primary Care Physician [phone] Kirstie Joyner APRN Attending Clinician Tanisha ANDINO, Josiah Medel Attending Clinician Harlan Murray Attending Clinician Key Palacios MD Attending Clinician Ashley Jones APRN Attending Clinician Nida Shaffer MD Attending Clinician Zoey Cummins MD Attending Clinician Srinivas Nguyen MD Attending Clinician Almas Clements MD Attending Clinician OMA HOANG Attending Clinician Unavailable Barrett Jones APN Attending Clinician Oma Mederos Attending Clinician Narciso PERALTA, Serena Attending Clinician Zachary BULLOCK, Angelika Rush Attending Clinician Unavailable Jesu GARCIAKait Deshpande Attending Clinician Sanjuanita Stratton NP Attending Clinician Otto BULLOCK, Hang Rush Attending Clinician Unavailable AUBREY MORENO Attending Clinician Unavailable JORJE FRIED Attending Clinician Unavailable ERWIN ELMORE Attending Clinician Unavailable DEDE SOSA Attending Clinician Unavailable HAILY GREENWOOD Attending Clinician Unavailable SANJUANITA STRATTON Attending Clinician Unavailable Fermin Massey DO Attending Clinician Pako Lopez MD Attending Clinician Jaclyn Silver Attending Clinician Petra Bai RN Attending Clinician PAKO LOPEZ Attending Clinician Unavailable Doctor Unassigned, [place] Attending Clinician Unavailable Draw, [facility] Attending Clinician Unavailable ALMAS CLEMENTS Admitting Clinician Unavailable Problems Condition Condition Condition Status Onset Resolution Last Treating Co mments Source Name Details Category Date Date Treatment Clinician Date Acute Acute Disease Active Univers coronary coronary 3-13 ity of syndrome syndrome 00:00: [place] MD Adeola santacruz [facility] High High Disease Active Univers troponin I troponin I 3-13 it y of level level 00:00: MD Adeola santacruz [facility] Dyspnea Dyspnea Disease Active Univers 3-11 ity of 00:00: [place] MD Adeola santacruz [facility] Abdominal Abdominal Disease Active Uni vers pain pain 3-11 ity of 00:00: MD Adeola santacruz [facility] Atrial Atrial Disease Active Last Univers fibrillati fibrillati 6-11 Assessmen ity of on on 00:00: t & Plan: [place] Juan A fay of this Anderso note [...] of 00:00: 00 MD Adeola santacruz [facility] [place] Chest pain Chest pain Disease Active U nivers 6-11 ity of 00:00: MD Adeola santacruz [facility] Pneumonia Pneumonia Disease Active Uni vers 6-11 ity of 00:00: MD Adeola santacruz [facility] Hypotensio Hypotensio Disease Active U taylor santacruz 6-11 ity of 00:00: 00 MD Adeola santacruz [facility] Insomnia Insomnia Disease Active Unive rs 3-05 ity of 00:00: 00 MD Adeola santacruz [facility] 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 00:00: 00 MD Adeola santacruz [facility] Overweight Overweight Disease Active U nivers 2-06 ity of 00:00: 00 MD Adeola santacruz [facility] Chronic Chronic Disease Active 2019-03 Univers back pain back pain 2-03 ity of 00:00: 00 MD Adeola santacruz [facility] 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 Blood pressure modestly controlle d in the clinicat 146/71. Continue managemen t with metoprolo l succinate 25 mg daily and enalapril 10 mg p.o. 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 Social History Social Habit Start Date Stop Date Quantity Comments Source History of tobacco Cigarette Smoker University of use [place] MD Dave gant [facility] History SDOH University o f Alcohol Comment [facility] Exposure to Not sure University of SARS-CoV-2 (event) [facility] Alcohol intake 2022-10-03 2022-10-03 Ex-drinker University of 00:00:00 00:00:00 (finding) [place] MD Dave gant [facility] Tobacco use and 2020-02-13 2020-02-13 Smokeless Universit y of exposure 00:00:00 00:00:00 tobacco non-user [facility] Cigarettes smoked 2020-02-13 2020-02-13 Univers ity of current (pack per 00:00:00 00:00:00 [facility] ) - Reported Cancer Ce nter Cigarette 2020-02-13 2020-02-13 University of pack-years 00:00:00 00:00:00 [place] MD Dave gant [facility] History SDOH 2020-02-13 2020-02-13 1 University o f Alcohol Frequency 00:00:00 00:00:00 [facility] History SDOH 2020-02-13 2020-02-13 99 University o f Alcohol Std Drinks 00:00:00 00:00:00 [facility] History SDOH 2020-02-13 2020-02-13 1 University o f Alcohol Binge 00:00:00 00:00:00 [place] MD Jaclyn noel [facility] Tobacco Comment 2020-02-13 2020-02-13 used to smoke; Unive rsity of 00:00:00 00:00:00 quit 12 years [place] MD Jaclyn noel [facility] Sex Assigned [birth year] M Universit y of 00:00:00 00:00:00 [place] MD Dave gant [facility] Smoking Status Start Date Stop Date Source Unknown if ever smoked [facility] Ex-smoker 2020-02-13 00:00:00 2020-02-13 00:00:00 [facility] Medications Ordered Filled Start Stop Current Ordering Indication Dosage Frequency Signature Comments Components Source Medication Medication Date Date Medication? Clinician (SIG) Name Name amoxicillin Yes Urinary 875mg Take 1 Univers -clavulanat 7-23 tract tablet ity o f e 00:00: [place] (875 mg[place] (Aug[place] 00 by mouth 875 mg-125 twice [place]o mg per daily. n tablet [facility] amoxicillin Yes Urinary 875mg Take 1 Univers -clavulanat 7-23 tract tablet ity o f e 00:00: infection (875 mg[place] (Aug[place]in[place] 00 by mouth 875 mg-125 twice [place] mg per daily. n [facility] TAKE 1 No 60 TABLET 9-30 DAILY. 00:00: 00 TAKE 1 0 No 60 TABLET 9-30 DAILY. 00:00: 00 metoprolol Yes Essential TAKE ONE Univers succinate 9-21 (primary) TABLET BY ity of (TOPROL XL) 00:00: hypertensio MOUTH ONCE [place] 25 mg 24 hr 00 n DAILY ( tablet HOLD DOSE [place] IF SBP n <110 OR HR Cancer <55 ) [place] metoprolol Yes Essential TAKE ONE Univers succinate 9-21 (primary) TABLET BY ity of (TOPROL XL) 00:00: hypertensio MOUTH ONCE [place] 25 mg 24 hr 00 n DAILY ( tablet HOLD DOSE Anderso IF SBP n <110 OR HR Cancer <55 ) [place] metoprolol Yes Essential TAKE ONE Univers succinate 9-21 (primary) TABLET BY ity of (TOPROL XL) 00:00: hypertensio MOUTH ONCE [place] 25 mg 24 hr 00 n DAILY ( tablet HOLD DOSE Anderso IF SBP n <110 OR HR Cancer <55 ) [place] metoprolol Yes Essential TAKE ONE Univers succinate 9-21 (primary) TABLET BY ity of (TOPROL XL) 00:00: hypertensio MOUTH ONCE [place] 25 mg 24 hr 00 n DAILY ( MD tablet HOLD DOSE [place] IF SBP n <110 OR HR Cancer <55 ) [place] metoprolol Yes Essential TAKE ONE Univers succinate 9-21 (primary) TABLET BY ity of (TOPROL XL) 00:00: hypertensio MOUTH ONCE [place] 25 mg 24 hr 00 n DAILY ( MD tablet HOLD DOSE [place]o IF SBP n <110 OR HR Cancer <55 ) [place] metoprolol Yes Essential TAKE ONE Univers succinate 9-21 (primary) TABLET BY ity of (TOPROL XL) 00:00: hypertensio MOUTH ONCE [place] 25 mg 24 hr 00 n DAILY ( MD tablet HOLD DOSE [place]o IF SBP n <110 OR HR Cancer <55 ) [place] metoprolol Yes Essential TAKE ONE Univers succinate 9-21 (primary) TABLET BY ity of (TOPROL XL) 00:00: hypertensio MOUTH ONCE [place] 25 mg 24 hr 00 n DAILY ( MD tablet HOLD DOSE Anderso IF SBP n <110 OR HR Cancer <55 ) [place] metoprolol Yes Essential TAKE ONE Univers succinate 9-21 (primary) TABLET BY ity of (TOPROL XL) 00:00: hypertensio MOUTH ONCE [place] 25 mg 24 hr 00 n DAILY ( MD tablet HOLD DOSE [place]o IF SBP n <110 OR HR Cancer <55 ) [place] metoprolol Yes Essential TAKE ONE Univers succinate 9-21 (primary) TABLET BY ity of (TOPROL XL) 00:00: hypertensio MOUTH ONCE [place] 25 mg 24 hr 00 n DAILY ( MD tablet HOLD DOSE [place]o IF SBP n <110 OR HR Cancer <55 ) [place] Dose 0 No Unknown 9-14 00:00: 00 Dose 0 No Unknown -14 00:00: 00 pantoprazol Yes Adenocarcin TAKE ONE Univers e 9-08 geoff of TABLET BY ity of (PROTONIX) 00:00: prostate MOUTH [place] 40 mg EC 00 DAILY MD tablet Anderso [facility] pantoprazol Yes Adenocarcin TAKE ONE Univers e 9-08 geoff of TABLET BY ity of (PROTONIX) 00:00: prostate MOUTH [place] 40 mg EC 00 DAILY MD tablet Anderso [facility] pantoprazol Yes Adenocarcin TAKE ONE Univers e 9-08 geoff of TABLET BY ity of (PROTONIX) 00:00: prostate MOUTH [place] 40 mg EC 00 DAILY MD tablet [facility] pantoprazol Yes Adenocarcin TAKE ONE Univers e 9-08 geoff of TABLET BY ity of (PROTONIX) 00:00: prostate MOUTH [place] 40 mg EC 00 DAILY MD tablet [facility] pantoprazol Yes Adenocarcin TAKE ONE Univers e 9-08 geoff of TABLET BY ity of (PROTONIX) 00:00: prostate MOUTH [place] 40 mg EC 00 DAILY MD tablet [facility] pantoprazol Yes Adenocarcin TAKE ONE Univers e 9-08 geoff of TABLET BY ity of (PROTONIX) 00:00: prostate MOUTH [place] 40 mg EC 00 DAILY MD tablet [facility] pantoprazol Yes Adenocarcin TAKE ONE Univers e 9-08 geoff of TABLET BY ity of (PROTONIX) 00:00: prostate MOUTH [place] 40 mg EC 00 DAILY MD tablet [facility] pantoprazol Yes Adenocarcin TAKE ONE Univers e 9-08 geoff of TABLET BY ity of (PROTONIX) 00:00: prostate MOUTH [place] 40 mg EC 00 DAILY MD tablet [facility] pantoprazol Yes Adenocarcin TAKE ONE Univers e 9-08 geoff of TABLET BY ity of (PROTONIX) 00:00: prostate MOUTH [place] 40 mg EC 00 DAILY MD tablet [facility] pantoprazol Yes Adenocarcin TAKE ONE Univers e 9-08 geoff of TABLET BY ity of (PROTONIX) 00:00: prostate MOUTH [place] 40 mg EC 00 DAILY MD tablet [facility] enalapril Yes Adenocarcin TAKE ONE Univers (VASOTEC) [...] MD (SKIP DOSE [place] IF n SYSTOLIC [facility] BLOOD [place] PRESSURE IS LESS THAN 110) enalapril Yes Adenocarcin TAKE ONE Univers (VASOTEC) 8-22 geoff of TABLET BY ity of 20 mg 00:00: prostate MOUTH [place] tablet 00 DAILY (SKIP DOSE Anderso IF n SYSTOLIC [facility] BLOOD [place] PRESSURE IS LESS THAN 110) tamsulosin Yes Adenocarcin .4mg Take 1 Univers (FLOMAX) 8-19 geoff of capsule ity of 0.4 mg 24 00:00: prostate (0.4 mg) [place] hr capsule 00 by mouth twice Anderso daily. [facility] tamsulosin Yes Adenocarcin .4mg Take 1 Univers (FLOMAX) 8-19 geoff of capsule ity of 0.4 mg 24 00:00: prostate (0.4 mg) [place] hr capsule 00 by mouth twice Anderso daily. [facility] tamsulosin Yes Adenocarcin .4mg Take 1 Univers (FLOMAX) 8-19 geoff of capsule ity of 0.4 mg 24 00:00: prostate (0.4 mg) [place] hr capsule 00 by mouth twice Anderso daily. [facility] tamsulosin Yes Adenocarcin .4mg Take 1 Univers (FLOMAX) 8-19 geoff of capsule ity of 0.4 mg 24 00:00: prostate (0.4 mg) [place] hr capsule 00 by mouth twice Anderso daily. [facility] tamsulosin Yes Adenocarcin .4mg Take 1 Univers (FLOMAX) 8-19 geoff of capsule ity of 0.4 mg 24 00:00: prostate (0.4 mg) [place] hr capsule 00 by mouth twice Anderso daily. [facility] tamsulosin Yes Adenocarcin .4mg Take 1 Univers (FLOMAX) 8-19 geoff of capsule ity of 0.4 mg 24 00:00: prostate (0.4 mg) [place] hr capsule 00 by mouth twice Anderso daily. [facility] tamsulosin 2022-0 Yes Adenocarcin .4mg Take 1 Univers (FLOMAX) 8-19 geoff of capsule ity of 0.4 mg 24 00:00: prostate (0.4 mg) [place] hr capsule 00 by mouth MD twice Anderso daily. [facility] tamsulosin Yes Adenocarcin .4mg Take 1 Univers (FLOMAX) 8-19 geoff of capsule ity of 0.4 mg 24 00:00: prostate (0.4 mg) [place] hr capsule 00 by mouth MD twice Anderso daily. [facility] tamsulosin Yes Adenocarcin .4mg Take 1 Univers (FLOMAX) 8-19 geoff of capsule ity of 0.4 mg 24 00:00: prostate (0.4 mg) [place] hr capsule 00 by mouth MD twice Anderso daily. [facility] tamsulosin Yes Adenocarcin .4mg Take 1 Univers (FLOMAX) 8-19 geoff of capsule ity of 0.4 mg 24 00:00: prostate (0.4 mg) [place] hr capsule 00 by mouth twice Anderso daily. [facility] tamsulosin Yes Adenocarcin .4mg Take 1 Univers (FLOMAX) 8-19 geoff of capsule ity of 0.4 mg 24 00:00: prostate (0.4 mg) [place] hr capsule 00 by mouth twice Anderso daily. [facility] tamsulosin Yes Adenocarcin .4mg Take 1 Univers (FLOMAX) 8-19 geoff of capsule ity of 0.4 mg 24 00:00: prostate (0.4 mg) [place] hr capsule 00 by mouth twice Anderso daily. [facility] tamsulosin Yes Adenocarcin .8mg Take 2 Univers (FLOMAX) 7-25 geoff of capsules ity o f 0.4 mg 24 00:00: prostate (0.8 mg) [place] hr capsule 00 by mouth at Anderso bedtime. [facility] tamsulosin Yes Adenocarcin .8mg Take 2 Univers (FLOMAX) 7-25 geoff of capsules ity o f 0.4 mg 24 00:00: prostate (0.8 mg) [place] hr capsule 00 by mouth at Anderso bedtime. [facility] tamsulosin Yes Adenocarcin .8mg Take 2 Univers (FLOMAX) 7-25 geoff of capsules ity o f 0.4 mg 24 00:00: prostate (0.8 mg) [place] hr capsule 00 by mouth at [facility]. [facility] tamsulosin Yes Adenocarcin .8mg Take 2 Univers (FLOMAX) 7-25 geoff of capsules ity o f 0.4 mg 24 00:00: prostate (0.8 mg) [place] hr capsule 00 by mouth at [facility]. [facility] tamsulosin Yes Adenocarcin .8mg Take 2 Univers (FLOMAX) 7-25 geoff of capsules ity o f 0.4 mg 24 00:00: prostate (0.8 mg) [place] hr capsule 00 by mouth at [facility]. [facility] tamsulosin Yes Adenocarcin .8mg Take 2 Univers (FLOMAX) 7-25 geoff of capsules ity o f 0.4 mg 24 00:00: prostate (0.8 mg) [place] hr capsule 00 by mouth at [facility]. [facility] tamsulosin Yes Adenocarcin .8mg Take 2 Univers (FLOMAX) 7-25 geoff of capsules ity o f 0.4 mg 24 00:00: prostate (0.8 mg) [place] hr capsule 00 by mouth at [facility]. [facility] tamsulosin Yes Adenocarcin .8mg Take 2 Univers (FLOMAX) 7-25 geoff of capsules ity o f 0.4 mg 24 00:00: prostate (0.8 mg) [place] hr capsule 00 by mouth at [facility]. [facility] tamsulosin Yes Adenocarcin .8mg Take 2 Univers (FLOMAX) 7-25 geoff of capsules ity o f 0.4 mg 24 00:00: prostate (0.8 mg) [place] hr capsule 00 by mouth at [facility]. [facility] tamsulosin Yes Adenocarcin .8mg Take 2 Univers (FLOMAX) 7-25 geoff of capsules ity o f 0.4 mg 24 00:00: prostate (0.8 mg) [place] hr capsule 00 by mouth at [facility]. [facility] tamsulosin Yes Adenocarcin .8mg Take 2 Univers (FLOMAX) 7-25 geoff of capsules ity o f 0.4 mg 24 00:00: prostate (0.8 mg) [place] hr capsule 00 by mouth at [facility] tamsulosin Yes Adenocarcin .8mg Take 2 Univers (FLOMAX) 7-25 geoff of capsules ity o f 0.4 mg 24 00:00: prostate (0.8 mg) [place] hr capsule 00 [facility] Ad[facility]ocarcin TAKE ONE Univers n (LIPITOR) 7-14 geoff of TABLET BY i ty of 80 mg 00:00: prostate MOUTH [place] tablet 00 EVERY MD N[facility] Adenocarcin TAKE ONE Univers n (LIPITOR) 7-14 geoff of TABLET BY i ty of 80 mg 00:00: prostate MOUTH [place] tablet 00 EVERY MD NIGHT [facility] Adenocarcin TAKE ONE Univers n (LIPITOR) 7-14 geoff of TABLET BY i ty of 80 mg 00:00: prostate MOUTH [place] tablet 00 EVERY MD NIGHT [facility] Adenocarcin TAKE ONE Univers n (LIPITOR) 7-14 geoff of TABLET BY i ty of 80 mg 00:00: prostate MOUTH [place] tablet 00 EVERY MD NIGHT [facility] Adenocarcin TAKE ONE Univers n (LIPITOR) 7-14 geoff of TABLET BY i ty of 80 mg 00:00: prostate MOUTH [place] tablet 00 EVERY MD NIGHT [facility] Adenocarcin TAKE ONE Univers n (LIPITOR) 7-14 geoff of TABLET BY i ty of 80 mg 00:00: prostate MOUTH [place] tablet 00 EVERY MD NIGHT [facility] Adenocarcin TAKE ONE Univers n (LIPITOR) 7-14 geoff of TABLET BY i ty of 80 mg 00:00: prostate MOUTH [place] tablet 00 EVERY MD NIGHT [facility] Yes Adenocarcin TAKE ONE Univers n (LIPITOR) 7-14 geoff of TABLET BY i ty of 80 mg 00:00: prostate MOUTH [place] tablet 00 EVERY MD NIGHT [facility] Yes Adenocarcin TAKE ONE Univers n (LIPITOR) 7-14 geoff of TABLET BY i ty of 80 mg 00:00: prostate MOUTH [place] tablet 00 EVERY MD NIGHT AT [facility] atorvasti Yes Adenocarcin TAKE ONE Univers n (LIPITOR) 7-14 geoff of TABLET BY i ty of 80 mg 00:00: prostate MOUTH [place] tablet 00 EVERY MD NIGHT [facility] Yes Adenocarcin TAKE ONE Univers n (LIPITOR) 7-14 geoff of TABLET BY i ty of 80 mg 00:00: prostate MOUTH [place] tablet 00 EVERY MD NIGHT [facility] Yes Adenocarcin TAKE ONE Univers n (LIPITOR) 7-14 geoff of TABLET BY i ty of 80 mg 00:00: prostate MOUTH [place] tablet 00 EVERY MD NIGHT AT [facility] aspirin 81 2021-0 Yes 81mg Chew 1 Unive rs mg chewable 3-16 tablet (81 it y of tablet 00:00: mg) daily. [facility] aspirin 81 2021-0 Yes 81mg Chew 1 Unive rs mg chewable 3-16 tablet (81 it y of tablet 00:00: mg) daily. [facility] aspirin 81 2021-0 Yes 81mg Chew 1 Unive rs mg chewable 3-16 tablet (81 it y of tablet 00:00: mg) daily. [facility] aspirin 81 2021-0 Yes 81mg Chew 1 Unive rs mg chewable 3-16 tablet (81 it y of tablet 00:00: mg) daily. [facility] aspirin 81 2021-0 Yes 81mg Chew 1 Unive rs mg chewable 3-16 tablet (81 it y of tablet 00:00: mg) daily. [facility] aspirin 81 2021-0 Yes 81mg Chew 1 Unive rs mg chewable 3-16 tablet (81 it y of tablet 00:00: mg) daily. [facility] aspirin 81 2021-0 Yes 81mg Chew 1 Unive rs mg chewable 3-16 tablet (81 it y of tablet 00:00: mg) daily. [facility] aspirin 81 2-0 Yes 81mg Chew 1 Unive rs mg chewable 3-16 tablet (81 it y of tablet 00:00: mg) daily. [facility] aspirin 81 2-0 Yes 81mg Chew 1 Unive rs mg chewable 3-16 tablet (81 it y of tablet 00:00: mg) daily. [facility] aspirin 81 2021-0 Yes 81mg Chew 1 Unive rs mg chewable 3-16 tablet (81 it y of tablet 00:00: mg) daily. [facility] aspirin 81 2021-0 Yes 81mg Chew 1 Unive rs mg chewable 3-16 tablet (81 it y of tablet 00:00: mg) daily. [facility] aspirin 81 2021-0 Yes 81mg Chew 1 Unive rs mg chewable 3-16 tablet (81 it y of tablet 00:00: mg) daily. [facility] ibuprofen 2021-0 2021- No 200mg Take 200 Un pierre (AdviL) 200 3-15 03-15 mg by ity of mg tablet 17:49: 00:00 mouth [place] 57 :00 every 6 MD (six) Anderso hours as n needed for Cancer mild pain. Center As needed for back pain ibuprofen 2021-0 2021- No 200mg Take 200 Un [place] (AdviL) 200 3-15 03-15 mg by ity of mg tablet 17:49: 00:00 mouth [place] 57 :00 every 6 MD (six) Anderso hours as n needed for Cancer mild pain. Center As needed for back pain ibuprofen 2021-0 2021- No 200mg Take 200 Un pierre [...] As needed for back pain ibuprofen 2021-0 2021- No 200mg Take 200 Un [place] (AdviL) 200 3-15 03-15 mg by ity of mg tablet 17:49: 00:00 mouth [place] 57 :00 every 6 MD (six) Anderso hours as n needed for Cancer mild pain. Center As needed for back pain acetaminoph 2-0 Yes 500mg Take 500 U nivers en 3-15 mg by ity of (TYLENOL) 17:49: mouth [place] 500 mg 48 every 6 MD tablet (six) [facility]o hours as n needed for Cancer mild pain. Center acetaminoph 2-0 Yes 500mg Take 500 U nivers en 3-15 mg by ity of (TYLENOL) 17:49: mouth [place] 500 mg 48 every 6 MD tablet (six) Anderso hours as n needed for Cancer mild pain. Center acetaminoph 2022-0 Yes 500mg Take 500 U nivers en 3-15 mg by ity of (TYLENOL) 17:49: mouth [place] 500 mg 48 every 6 MD tablet (six) Anderso hours as n needed for Cancer mild pain. Center acetaminoph 2022-0 Yes 500mg Take 500 U nivers en 3-15 mg by ity of (TYLENOL) 17:49: mouth [place] 500 mg 48 every 6 MD tablet (six) Anderso hours as n needed for Cancer mild pain. Center acetaminoph 2022-0 Yes 500mg Take 500 U nivers en 3-15 mg by ity of (TYLENOL) 17:49: mouth [place] 500 mg 48 every 6 MD tablet (six) Anderso hours as n needed for Cancer mild pain. [place] acetaminoph 2021-0 Yes 500mg Take 500 U nivers en 3-15 mg by ity of (TYLENOL) 17:49: mouth [place] 500 mg 48 every 6 MD tablet (six) Anderso hours as n needed for Cancer mild pain. [place] acetaminoph 2021-0 Yes 500mg Take 500 U nivers en 3-15 mg by ity of (TYLENOL) 17:49: mouth [place] 500 mg 48 every 6 MD tablet (six) Anderso hours as n needed for Cancer mild pain. [place] acetaminoph 0 Yes 500mg Take 500 U nivers en 3-15 mg by ity of (TYLENOL) 17:49: mouth [place] 500 mg 48 every 6 MD tablet (six) Anderso hours as n needed for Cancer mild pain. [place] acetaminoph 0 Yes 500mg Take 500 U nivers en 3-15 mg by ity of (TYLENOL) 17:49: mouth [place] 500 mg 48 every 6 MD tablet (six) Anderso hours as n needed for Cancer mild pain. [place] acetaminoph 0 Yes 500mg Take 500 U nivers en 3-15 mg by ity of (TYLENOL) 17:49: mouth [place] 500 mg 48 every 6 MD tablet (six) Anderso hours as n needed for Cancer mild pain. [place] acetaminoph 2021-0 Yes 500mg Take 500 U nivers en 3-15 mg by ity of (TYLENOL) 17:49: mouth [place] 500 mg 48 every 6 MD tablet (six) Anderso hours as n needed for Cancer mild pain. [place] acetaminoph 0 Yes 500mg Take 500 U nivers en 3-15 mg by ity of (TYLENOL) 17:49: mouth [place] 500 mg 48 every 6 MD tablet (six) Anderso hours as n needed for Cancer mild pain. [place] leuprolide, 2021- No 30mg Inject 30 Univers 4 month, 3-15 03-15 mg under ity of (Eligard, 4 16:06: 00:00 the skin [place] month,) 30 46 :00 every 4 MD mg (four) Anderso injection months. n Last dose Cancer 05/16/2020 [place] leuprolide, 2021- No 30mg Inject 30 Univers 4 month, 3-15 03-15 mg under ity of (Eligard, 4 16:06: 00:00 the skin [place] month,) 30 46 :00 every 4 MD mg (four) Anderso injection months. n Last dose Cancer 05/16/2020 [place] leuprolide, 2021- No 30mg Inject 30 Univers 4 month, 3-15 03-15 mg under ity of (Eligard, 4 16:06: 00:00 the skin [place] month,) 30 46 :00 every 4 MD mg (four) Anderso injection months. n Last dose Cancer 05/16/2020 [place] leuprolide, 2021- No 30mg Inject 30 Univers 4 month, 3-15 03-15 mg under ity of (Eligard, 4 16:06: 00:00 the skin [place] month,) 30 46 :00 every 4 MD mg (four) Anderso injection months. n Last dose Cancer 05/16/2020 [place] leuprolide, 2021- No 30mg Inject 30 Univers 4 month, 3-15 03-15 mg under ity of (Eligard, 4 16:06: 00:00 the skin [place] month,) 30 46 :00 every 4 MD mg (four) Anderso injection months. n Last dose Cancer 05/16/2020 [place] leuprolide, 2021- No 30mg Inject 30 Univers 4 month, 3-15 03-15 mg under ity of (Eligard, 4 16:06: 00:00 the skin [place] month,) 30 46 :00 every 4 MD mg (four) Anderso injection months. n Last dose Cancer 05/16/2020 [place] leuprolide, 2021- No 30mg Inject 30 [facility] [...] ity of mg tablet 00:00: mg) by [place] 00 mouth every 12 [facility] (twelve) n hours. [facility] pantoprazol 2022-0 Yes 40mg Take 1 Univ ers e 3-15 tablet (40 ity of (Protonix) 00:00: mg) by [place] 40 mg EC 00 mouth MD tablet daily. [facility] apixaban 2022-0 Yes 5mg Take 1 [facility] (Eliquis) 5 3-15 tablet (5 ity of mg tablet 00:00: mg) by [place] 00 mouth every 12 [facility] (twelve) n hours. Cancer [place] pantoprazol 2022-0 Yes 40mg Take 1 Univ ers e 3-15 tablet (40 ity of (Protonix) 00:00: mg) by [place] 40 mg EC 00 mouth MD tablet daily. [facility] apixaban 2022-0 Yes 5mg Take 1 [facility] (Eliquis) 5 3-15 tablet (5 ity of mg tablet 00:00: mg) by [place] 00 mouth every 12 [facility] (twelve) n hours. [facility] apixaban 2022-0 Yes 5mg Take 1 [facility] (Eliquis) 5 3-15 tablet (5 ity of mg tablet 00:00: mg) by [place] 00 barbara ANDINO every 12 [facility] (twelve) n hours. [facility] apixaban 2022-0 Yes 5mg Take 1 [facility] (Eliquis) 5 3-15 tablet (5 ity of mg tablet 00:00: mg) by [place] 00 mouth every 12 [facility] (twelve) n hours. [facility] apixaban 2022-0 Yes 5mg Take 1 [facility] (Eliquis) 5 3-15 tablet (5 ity of mg tablet 00:00: mg) by [place] 00 mouth every 12 [facility] (twelve) n hours. [facility] apixaban 2022-0 Yes 5mg Take 1 [facility] (Eliquis) 5 3-15 tablet (5 ity of mg tablet 00:00: mg) by [place] 00 barbara ANDINO every 12 [facility] (twelve) n hours. [facility] apixaban 2022-0 Yes 5mg Take 1 [facility] (Eliquis) 5 3-15 tablet (5 ity of mg tablet 00:00: mg) by [place] 00 barbara ANDINO every 12 [facility] (twelve) n hours. [facility] apixaban 2022-0 Yes 5mg Take 1 [facility] (Eliquis) 5 3-15 tablet (5 ity of mg tablet 00:00: mg) by [place] 00 barbara ANDINO every 12 [facility] (twelve) n hours. [facility] apixaban 2022-0 Yes 5mg Take 1 [facility] (Eliquis) 5 3-15 tablet (5 ity of mg tablet 00:00: mg) by [place] 00 barbara ANDINO every 12 [facility] (twelve) n hours. [facility] apixaban 2022-0 Yes 5mg Take 1 [facility] (Eliquis) 5 3-15 tablet (5 ity of mg tablet 00:00: mg) by [place] [id number] barbara ANDINO every 12 Anderso (twelve) n hours. [facility] apixaban 2-0 Yes 5mg Take 1 [facility] (Eliquis) 5 3-15 tablet (5 ity of mg tablet 00:00: mg) by [place] [address] barbara ANDINO every 12 [facility] (twelve) n hours. [facility] pantoprazol 2021-0 2021- No 40mg Take 1 Uni vers e 3-15 11-19 tablet (40 ity of (Protonix) 00:00: 00:00 mg) by [place] 40 mg EC 00 :00 mouth MD tablet daily. [facility] pantoprazol 2021-0 2021- No 40mg Take 1 [facility] vers e 3-15 - tablet (40 ity of (Protonix) 00:00: 00:00 mg[place] 40 mg EC 00 :00 mouth MD tablet daily. [facility] pantoprazol 2021-0 2021- No 40mg Take 1 Uni vers e 3-15 - tablet (40 ity of (Protonix) 00:00: 00:00 mg) [place] 40 mg EC 00 :00 mouth MD tablet daily. [facility] pantoprazol 2021-0 2021- No 40mg Take 1 [facility] vers e 3-15 - tablet (40 ity of (Protonix) 00:00: 00:00 mg) [place] 40 mg EC 00 :00 mouth MD tablet daily. [facility] pantoprazol 2021- No 40mg Take 1 [facility] vers e 05-26 tablet (40 ity of (Protonix) 00:00: 00:00 mg) [place] 40 mg EC 00 :00 mouth MD tablet daily. [facility] pantoprazol 2021- No 40mg Take 1 [facility] vers e 05-26 tablet (40 ity of (Protonix) 00:00: 00:00 mg) [place] 40 mg EC 00 :00 mouth MD tablet daily. [facility] pantoprazol 2021- No 40mg Take 1 [facility] vers e 05-26 tablet (40 ity of (Protonix) 00:00: 00:00 mg) [place] 40 mg EC 00 :00 mouth MD tablet daily. [facility] pantoprazol 2021- No 40mg Take 1 [facility] vers e 05-26 tablet (40 ity of (Protonix) 00:00: 00:00 mg) [place] 40 mg EC 00 :00 mouth MD tablet daily. [facility] pantoprazol 2021- No 40mg Take 1 [facility] vers e 05-26 tablet (40 ity of (Protonix) 00:00: 00:00 mg) [place] 40 mg EC 00 :00 mouth MD tablet daily. [facility] pantoprazol 2021- No 40mg Take 1 Uni vers e 05-26 tablet (40 ity of (Protonix) 00:00: 00:00 mg) [place] 40 mg EC 00 :00 mouth MD tablet daily. [facility] enalapril 2021- No 20mg Take 1 Unive rs (VASOTEC) 05-26 tablet (20 ity of 20 mg 00:00: 00:00 mg) by [place] tablet 00 :00 mouth MD daily. [facility] Skip dose n if [facility] Center blood pressure (top number) is less than 110. enalapril 2022-0 2022- No 20mg Take 1 Unive rs (VASOTEC) 3-15 - tablet (20 ity of 20 mg 00:00: 00:00 mg) by [place] tablet 00 :00 mouth MD daily. [facility] Skip dose n if Cancer systolic Center blood pressure (top number) is less than 110. enalapril 2-0 2022- No 20mg Take 1 Unive rs (VASOTEC) 3-26 10- tablet (20 ity of 20 mg 00:00: 00:00 mg) by [place] tablet 00 :00 mouth MD daily. [facility] Skip dose n if Cancer systolic Center blood pressure (top number) is less than 110. enalapril 2021-0 2- No 20mg Take 1 Unive rs (VASOTEC) 3-26 10- tablet (20 ity of 20 mg 00:00: 00:00 mg) by [place] tablet 00 :00 mouth MD daily. [facility] Skip dose n if Cancer systolic Center blood pressure (top number) is less than 110. enalapril 2021-0 2- No 20mg Take 1 Unive rs (VASOTEC) -26 10- tablet (20 ity of 20 mg 00:00: 00:00 mg) by [place] tablet 00 :00 mouth MD daily. [facility] Skip dose n if Cancer systolic Center blood pressure (top number) is less than 110. enalapril 2-0 2- No 20mg Take 1 Unive rs (VASOTEC) [...] 80mg Take 1 Univers n (LIPITOR) 05-26 07-14 [place] of tablet (80 ity of 80 mg 00:00: 00:00 prostate mg) by [place] tablet 00 :00 mouth at MD bedtime. [facility] atorvastati 2021- No Adenocarcin 80mg Take 1 Univers n (LIPITOR) 05-26 07-14 [place] of tablet (80 ity of 80 mg 00:00: 00:00 prostate mg) by [place] tablet 00 :00 mouth at MD bedtime. [facility] atorvasti 2021- No Adenocarcin 80mg Take 1 Univers n (LIPITOR) 05-26 [place]off of tablet (80 ity of 80 mg 00:00: 00:00 prostate mg) by [place] tablet 00 :00 mouth at [place] bedtime. [facility] atorvasti 2021- No Adenocarcin 80mg Take 1 Univers n (LIPITOR) 05-26 geoff of tablet (80 ity of 80 mg 00:00: 00:00 prostate mg) by [place] tablet 00 :00 mouth at [place] bedtime. [facility] atorvasti 2021- No Adenocarcin 80mg Take 1 Univers n (LIPITOR) 05-26 geoff of tablet (80 ity of 80 mg 00:00: 00:00 prostate mg) by [place] tablet 00 :00 mouth at [place] bedtime. [facility] atorvasti 2021- No Adenocarcin 80mg Take 1 Univers n (LIPITOR) 05-26 [place]off of tablet (80 ity of 80 mg 00:00: 00:00 prostate mg) by [place] tablet 00 :00 mouth at [place] bedtime. [facility] atorvasti 2021- No Adenocarcin 80mg Take 1 Univers n (LIPITOR) 05-26 [place]off of tablet (80 ity of 80 mg 00:00: 00:00 prostate mg) by [place] tablet 00 :00 mouth at [place] bedtime. [facility] atorvasti 2021- No Adenocarcin 80mg Take 1 Univers n (LIPITOR) 05-26 geoff of tablet (80 ity of 80 mg 00:00: 00:00 prostate mg) by [place] tablet 00 :00 mouth at [place] bedtime. [facility] atorvasti 2021- No Adenocarcin 80mg Take 1 Univers n (LIPITOR) 05-26 geoff of tablet (80 ity of 80 mg 00:00: 00:00 prostate mg) by [place] tablet 00 :00 mouth at [place] bedtime. [facility] enalapril 2021- No Essential TAKE ONE Univers (VASOTEC) 05-18 (primary) TABLET BY ity of 10 mg 00:00: 00:00 hypertensio MOUTH [place] tablet 00 :00 n DAILY ( MD HOLD DOSE Anderso IF SBP<110 n ) [facility] [place] enalapril 2021- No Essential TAKE ONE Univers (VASOTEC) 05-18 (primary) TABLET BY ity of 10 mg 00:00: 00:00 hypertensio MOUTH [place] tablet 00 :00 n DAILY ( MD HOLD DOSE Anderso IF SBP<110 n ) [facility] enalapril 2021- No Essential TAKE ONE Univers (VASOTEC) 05-18 (primary) TABLET BY ity of 10 mg 00:00: 00:00 hypertensio MOUTH [place] tablet 00 :00 n DAILY ( MD HOLD DOSE Anderso IF SBP<110 n ) [facility] enalapril 2021- No Essential TAKE ONE Univers (VASOTEC) 05-18 (primary) TABLET BY ity of 10 mg 00:00: 00:00 hypertensio MOUTH [place] tablet 00 :00 n DAILY ( MD HOLD DOSE Anderso IF SBP<110 n ) [facility] enalapril 2021- No Essential TAKE ONE Univers (VASOTEC) 05-18 (primary) TABLET BY ity of 10 mg 00:00: 00:00 hypertensio MOUTH [place] tablet 00 :00 n DAILY ( MD HOLD DOSE Anderso IF SBP<110 n ) [facility] enalapril 2021- No Essential TAKE ONE Univers (VASOTEC) 05-18 (primary) TABLET BY ity of 10 mg 00:00: 00:00 hypertensio MOUTH [place] tablet 00 :00 n DAILY ( MD HOLD DOSE [place]o IF SBP<110 n ) [facility] enalapril 2021- No Essential TAKE ONE [facility] (VASOTEC) 05-18 (primary) TABLET BY ity of 10 mg 00:00: 00:00 hypertensio MOUTH [place] tablet 00 :00 n DAILY ( MD HOLD DOSE Anderso IF SBP<110 n ) [facility] apixaban 2021- No Paroxysmal 5mg Take 1 Univers (Eliquis) 5 8-17 03-15 atrial tablet (5 ity of mg tablet 00:00: 00:00 fibrillatio mg) by [place] 00 :00 n mouth MD every 12 Anderso (twelve) n hours. [facility] apixaban 2021- No Paroxysmal 5mg Take 1 [facility] (Eliquis) 5 8-17 -15 atrial tablet (5 ity of mg tablet 00:00: 00:00 fibrillatio mg) by [place] 00 :00 n mouth MD every 12 Anderso (twelve) n hours. [facility] apixaban 2021- No Paroxysmal 5mg Take 1 Univers (Eliquis) 5 8-15 atrial tablet (5 ity of mg tablet 00:00: 00:00 fibrillatio mg) by [place] 00 :00 n mouth MD every 12 Anderso (twelve) n hours. [facility] apixaban 2021- No Paroxysmal 5mg Take 1 [facility] (Eliquis) 5 8-15 atrial tablet (5 ity of mg tablet 00:00: 00:00 fibrillatio mg) by [place] 00 :00 n mouth MD every 12 Anderso (twelve) n hours. [facility] apixaban 2021- No Paroxysmal 5mg Take 1 [facility] (Eliquis) 5 8-15 atrial tablet (5 ity of mg tablet 00:00: 00:00 fibrillatio mg) by [place] 00 :00 n mouth MD every 12 Anderso (twelve) n hours. [facility] apixaban 2021- No Paroxysmal 5mg Take 1 [facility] (Eliquis) 5 8-15 atrial tablet (5 ity of mg tablet 00:00: 00:00 fibrillatio mg) by [place] 00 :00 n mouth MD every 12 Anderso (twelve) n hours. [facility] apixaban 2021- No Paroxysmal 5mg Take 1 [facility] (Eliquis) 5 8-17 -15 atrial tablet (5 ity of mg tablet 00:00: 00:00 fibrillatio mg) by [place] 00 :00 n mouth MD every 12 Anderso (twelve) n hours. [facility] metoprolol Yes 25mg Take 1 Unive [...] 110 or heart rate less than 55. mirtazapine 2021- No Insomnia 7.5mg Take 1 Univers (REMERON) 7-27 03-15 due to tablet ity o f 7.5 mg 00:00: 00:00 medical (7.5 mg) [place] tablet 00 :00 condition by mouth MD at [facility] bedtime. n [facility] diphenoxyla 2021- No Diarrhea 1{tbl} [...] 00 :00 condition by mouth MD at [facility]. n [facility] diphenoxyla 2021- No Diarrhea 1{tbl} [...] tablet 00 :00 [facility] diphenoxyla 2021- No Diarrhea 1{tbl} Take 1 [...] 00 :00 condition by mouth MD at [facility]. n [facility] diphenoxyla 2021- No Diarrhea 1{tbl} [...] 00 :00 condition by mouth MD at [facility]. n [facility] diphenoxyla 2021- No Diarrhea 1{tbl} [...] 00 :00 condition by mouth MD at [facility]. n [facility] diphenoxyla 2021- No Diarrhea 1{tbl} [...] tablet 00 :00 condition by mouth at [facility]. n [facility] diphenoxyla 2021- No Diarrhea 1{tbl} Take 1 Univers te-atropine 727 03-15 tablet by it y of (LomotiL) 00:00: 00:00 mouth [place] 2.5 00 :00 every 6 MD mg-0.025 mg (six) Anderso per tablet hours as n needed for Cancer diarrhea. Center Not to exceed 8 tablets per day tamsulosin 2021- No Adenocarcin .8mg Take 2 Univers (FLOMAX) 09-25-25 [place] of capsules ity of 0.4 mg 24 00:00: 00:00 prostate (0.8 mg) [place] hr capsule 00 :00 by mouth at [facility]. [facility] tamsulosin 2021- No Adenocarcin .8mg Take 2 Univers (FLOMAX) 09-25-25 [place] of capsules ity of 0.4 mg 24 00:00: 00:00 prostate (0.8 mg) [place] hr capsule 00 :00 by mouth at [facility]. [facility] tamsulosin 2021- No Adenocarcin .8mg Take 2 Univers (FLOMAX) 09-25-25 [place] of capsules ity of 0.4 mg 24 00:00: 00:00 prostate (0.8 mg) [place] hr capsule 00 :00 by mouth at [facility]. [facility] tamsulosin 2021- No Adenocarcin .8mg Take 2 [facility] (FLOMAX) 09-25-25 [place] of capsules ity of 0.4 mg 24 00:00: 00:00 prostate (0.8 mg) [place] hr capsule 00 :00 by mouth at [facility]. [facility] tamsulosin 2021- No Adenocarcin .8mg Take 2 [facility] (FLOMAX) 09-25-25 [place] of capsules ity of 0.4 mg 24 00:00: 00:00 prostate (0.8 mg) [place] hr capsule 00 :00 by mouth at [facility]. [facility] tamsulosin 2021- No Adenocarcin .8mg Take 2 Univers (FLOMAX) 09-25-25 [place] of capsules ity of 0.4 mg 24 00:00: 00:00 prostate (0.8 mg) [place] hr capsule 00 :00 by mouth at [facility]. [facility] tamsulosin 2021- No Adenocarcin .8mg Take 2 Univers (FLOMAX) 09-25-25 [place] of capsules ity of 0.4 mg 24 00:00: 00:00 prostate (0.8 mg) [place] hr capsule 00 :00 by mouth at [facility]. [facility] tamsulosin 2021- No Adenocarcin .8mg Take 2 [facility] (FLOMAX) 09-25-25 [place] of capsules ity of 0.4 mg 24 00:00: 00:00 prostate (0.8 mg) [place] hr capsule 00 :00 by mouth at [facility]. [facility] tamsulosin 2021- No Adenocarcin .8mg Take 2 [facility] (FLOMAX) 09-25-25 [place] of capsules ity of 0.4 mg 24 00:00: 00:00 prostate (0.8 mg) [place] hr capsule 00 :00 by mouth at [facility]. [facility] tamsulosin 2021- No Adenocarcin .8mg Take 2 [facility] (FLOMAX) 09-25-25 [place] of capsules ity of 0.4 mg 24 00:00: 00:00 prostate (0.8 mg) [place] hr capsule 00 :00 by mouth at [facility]. [facility] tamsulosin 2021- No Adenocarcin .8mg Take 2 [facility] (FLOMAX) 09-25-25 [place] of capsules ity of 0.4 mg 24 00:00: 00:00 prostate (0.8 mg) [place] hr capsule 00 :00 by mouth at [facility]. [facility] enalapril 2021- No 10mg Take 1 Unive rs (VASOTEC) 6-13 03-07 tablet (10 ity of 10 mg 00:00: 00:00 mg) by [place] tablet 00 :00 mouth daily. [facility] Hold dose n if [facility] Center blood pressure (top number) is less [...] No 10mg Take 1 Unive rs (VASOTEC) 08-24 tablet (10 ity of 10 mg 00:00: 00:00 mg) by [place] tablet 00 :00 mouth MD daily. Anderso Hold dose n if Cancer systolic Center blood pressure (top number) is less than 110. enalapril 2021- No 10mg Take 1 Unive rs (VASOTEC) 08-24 tablet (10 ity of 10 mg 00:00: 00:00 mg) by [place] tablet 00 :00 mouth MD daily. Anderso Hold dose n if Cancer systolic Center blood pressure (top number) is less than 110. enalapril 2021- No 10mg Take 1 Unive rs (VASOTEC) 08-24 tablet (10 ity of 10 mg 00:00: [...] [place] tablet 00 :00 mouth MD daily. [facility] bicalutamid 2021- No Adenocarcin 50mg Take 1 Univers e (CASODEX) 07-30-15 [place] of tablet (50 ity of 50 mg 00:00: 00:00 prostate mg) by [place] tablet 00 :00 mouth MD daily. [facility] bicalutamid 2021- No Adenocarcin 50mg Take 1 Univers e (CASODEX) 07-30-15 [place] of tablet (50 ity of 50 mg 00:00: 00:00 prostate mg) by [place] tablet 00 :00 mouth MD daily. [facility] bicalutamid 2021- No Adenocarcin 50mg Take 1 Univers e (CASODEX) 07-30 03-15 [place] of tablet (50 ity of 50 mg 00:00: 00:00 prostate mg) by [place] tablet 00 :00 mouth daily. [facility] bicalutamid 2021- No Adenocarcin 50mg Take 1 Univers e (CASODEX) 07-30-15 [place] of tablet (50 ity of 50 mg 00:00: 00:00 prostate mg) by [place] tablet 00 :00 mouth MD daily. [facility] bicalutamid 2021- No Adenocarcin 50mg Take 1 Univers e (CASODEX) 07-30-15 [place] of tablet (50 ity of 50 mg 00:00: 00:00 prostate mg) by [place] tablet 00 :00 mouth MD daily. [facility] bicalutamid 2021- No Adenocarcin 50mg Take 1 Univers e (CASODEX) 07-30-15 [place] of tablet (50 ity of 50 mg 00:00: 00:00 prostate mg) by [place] tablet 00 :00 mouth daily. [facility] pantoprazol 2021- No Adenocarcin 40mg Take 1 Univers e 3-05 03-15 [place] of tablet (40 ity of (Protonix) 00:00: 00:00 prostate mg) by [place] 40 mg EC 00 :00 mouth MD tablet daily with [facility] pantoprazol 2021- No Adenocarcin 40mg Take 1 Univers e 3-05 03-15 [place] of tablet (40 ity of (Protonix) 00:00: 00:00 prostate mg) by [place] 40 mg EC 00 :00 mouth MD tablet daily with [place] breakfast. [facility] pantoprazol 2021- No Adenocarcin 40mg Take 1 Univers e 3-05 03-15 [place] of tablet (40 ity of (Protonix) 00:00: 00:00 prostate mg) by [place] 40 mg EC 00 :00 mouth MD tablet daily with [place] breakfast. [facility] pantoprazol 2021- No Adenocarcin 40mg Take 1 Univers e 3-05 03-15 [place] of tablet (40 ity of (Protonix) 00:00: 00:00 prostate mg) by [place] 40 mg EC 00 :00 mouth MD tablet daily with [place] breakfast. [facility] pantoprazol 2021- No Adenocarcin 40mg Take 1 Univers e 3-05 03-15 [place]off of tablet (40 ity of (Protonix) 00:00: 00:00 prostate mg) by [place] 40 mg EC 00 :00 mouth MD tablet daily with [place] breakfast. [facility] pantoprazol 2021- No Adenocarcin 40mg Take 1 Univers e 3-05 03-15 geoff of tablet (40 ity of (Protonix) 00:00: 00:00 prostate mg) by [place] 40 mg EC 00 :00 mouth MD tablet daily with [place] breakfast. [facility] pantoprazol 2021- No Adenocarcin 40mg Take 1 Univers e 3-05 03-15 [place]off of tablet (40 ity of (Protonix) 00:00: 00:00 prostate mg) by [place] 40 mg EC 00 :00 mouth MD tablet daily with [place] breakfast. [facility] Dose 2020-0 No Unknown 1-09 00:00: 00 Dose 2020-0 No Unknown 1- 00:00: 00 Dose 2020-0 No Unknown 1-09 00:00: 00 Dose 2020-0 No Unknown -09 00:00: 00 amlodipine 2019-03 No 1mg 5 mg tablet 2- 00:00: 00 enalapril 2020-1 No 1mg maleate 10 2-03 mg tablet 00:00: 00 amlodipine 2020-1 No 1mg 5 mg tablet 2 00:00: 00 enalapril 2020-1 No 1mg maleate 10 2-03 mg tablet 00:00: 00 amlodipine 2020-0 No 1mg 5 mg tablet 11-19 00:00: 00 enalapril 2020-0 No 1mg maleate 10 9-08 mg tablet 00:00: 00 amlodipine 2020-0 No 1mg 5 mg tablet 11-19 00:00: 00 enalapril 2020-0 No 1mg maleate 10 9-08 mg tablet 00:00: 00 tamsulosin 2020-0 Yes [id number] .4mg Take 1 [facility] 0.4 mg 24 7-13 capsule by ity of hr capsule 00:00: mouth [place] 00 daily. [facility] tamsulosin 2020-0 Yes [id number] .4mg Take 1 [facility] 0.4 mg 24 7-13 capsule by ity of hr capsule 00:00: mouth [place] 00 daily. [facility] tamsulosin 2020-0 Yes [id number] .4mg Take 1 [facility] 0.4 mg 24 7-13 capsule by ity of hr capsule 00:00: mouth [place] 00 daily. [facility] tamsulosin 2020-0 Yes [id number] .4mg Take 1 [facility] 0.4 mg 24 7-13 capsule by ity of hr capsule 00:00: mouth [place] 00 daily. [facility] tamsulosin 2020-0 Yes [id number] .4mg Take 1 [facility] 0.4 mg 24 7-13 capsule by ity of hr capsule 00:00: mouth [place] 00 daily. [facility] tamsulosin 2020-0 Yes [id number] .4mg Take 1 [facility] 0.4 mg 24 7-13 capsule by ity of hr capsule 00:00: mouth [place] 00 daily. [facility] tamsulosin 2020-0 Yes [id number] .4mg Take 1 [facility] 0.4 mg 24 7-13 capsule by ity of hr capsule 00:00: mouth [place] 00 daily. [facility] tamsulosin 2020-0 Yes [id number] .4mg Take 1 [facility] 0.4 mg 24 7-13 capsule by ity of hr capsule 00:00: mouth [place] 00 daily. [facility] tamsulosin 2020-0 Yes [id number] .4mg Take 1 [facility] 0.4 mg 24 7-13 capsule by ity of hr capsule 00:00: mouth [place] 00 daily. [facility] tamsulosin 2020-0 Yes [id number] .4mg Take 1 [facility] 0.4 mg 24 7-13 capsule by ity of hr capsule 00:00: mouth [place] 00 daily. [facility] tamsulosin 2020-0 Yes [id number] .4mg Take 1 [facility] 0.4 mg 24 7-13 capsule by ity of hr capsule 00:00: mouth [place] 00 daily. [facility] tamsulosin 2020-0 Yes [id number] .4mg Take 1 [facility] 0.4 mg 24 7-13 capsule by ity of hr capsule 00:00: mouth [place] 00 daily. [facility] tamsulosin 2020-0 Yes [id number] .4mg Take 1 [facility] 0.4 mg 24 7-13 capsule by ity of hr capsule 00:00: mouth [place] 00 daily. [facility] tamsulosin 2020-0 Yes [id number] .4mg Take 1 [facility] 0.4 mg 24 7-13 capsule by ity of hr capsule 00:00: mouth [place] 00 daily. [facility] tamsulosin 2020-0 Yes [id number] .4mg Take 1 [facility] 0.4 mg 24 7-13 capsule by ity of hr capsule 00:00: mouth [place] 00 daily. [facility] tamsulosin 2020-0 Yes [id number] .4mg Take 1 [facility] 0.4 mg 24 7-13 capsule by ity of hr capsule 00:00: mouth [place] 00 daily. [facility] tamsulosin 2020-0 Yes [id number] .4mg Take 1 [facility] 0.4 mg 24 7-13 capsule by ity of hr capsule 00:00: mouth [place] 00 daily. [facility] tamsulosin 2020-0 Yes [id number] .4mg Take 1 [facility] 0.4 mg 24 7-13 capsule by ity of hr capsule 00:00: mouth [place] 00 daily. [facility] tamsulosin 2020-0 Yes [id number] .4mg Take 1 [facility] 0.4 mg 24 7-13 capsule by ity of hr capsule 00:00: mouth [place] 00 daily. [facility] tamsulosin 2020-0 Yes [id number] .4mg Take 1 [facility] 0.4 mg 24 7-13 capsule by ity of hr capsule 00:00: mouth [place] 00 daily. [facility] tamsulosin 2020-0 Yes [id number] .4mg Take 1 [facility] 0.4 mg 24 7-13 capsule by ity of hr capsule 00:00: mouth [place] 00 daily. [facility] tamsulosin 2020-0 Yes [id number] .4mg Take 1 [facility] 0.4 mg 24 7-10 capsule by ity of hr capsule 00:00: mouth [place] 00 daily. [facility] tamsulosin 2019-0 2020- No [id number] .4mg Take 1 [facility] 0.4 mg 24 [...] [place] 80 mg 00 :00 1 dose, [facility] Tue09/14/19 Branch at 1045, HA
Re ason for Anti-Infec tive: Surgical Prophylaxi s
Surgi adilene Prophylaxi s: Genitourin aislinn
Dur ation of therapy: within 24 hours of surgery cefTRIAXone 2019-0 2020- No 500mg 500 mg, U nivers (ROCEPHIN) 09-13 Intramuscu it y of injection 15:45: 15:10 [place], ONCE, [place] 500 mg 00 :00 1 dose, Medical [facility] 09/14/19 Branch at 1045, HA
Re [...] 15:45: 15:10 [place] 80 mg 00 :00 [facility] Branch gentamicin 2020-0 2020- No 80mg 80 [...] of surgery cefTRIAXone 2020-0 2020- No 500mg [facility] ers (ROCEPHIN) 09-13 ity of injection 15:45: 15:10 [place] 500 mg 00 :00 [facility] gentamicin 2020-0 2020- No 80mg Univer s [...] No 500mg 500 mg, U nivers (ROCEPHIN) 7-03 07-03 Intramuscu it y of injection 15:45: 15:10 lar, ONCE, [place] 500 mg 00 :00 1 dose, Medical 09/14/19 Branch at 1045, HA
Re ason for Anti-Infec tive: Surgical Prophylaxi s
Surgi adilene Prophylaxi s: Genitourin aislinn
Dur ation of therapy: within 24 hours of surgery mineral oil 2019-0 2020- No [id number] 1{enema Insert 1 [facility] (READY-TO-U 09-06 } Enema into i ty of SE ENEMA, 00:00: 04:59 rectum [place] MIN OIL,) 00 :00 once now Medica l enema for 1 Branch dose. Perform morning of procedure. mineral oil 2020-0 2020- No [id number] 1{enema Insert 1 [facility] (READY-TO-U 09-06 } Enema into i ty of SE ENEMA, 00:00: 04:59 rectum [place] MIN OIL,) 00 :00 once now Medica l enema for 1 Branch dose. Perform morning of procedure. mineral oil 2020-0 2020- No [id number] 1{enema Insert 1 [facility] (READY-TO-U 09-06 } Enema into i ty of SE ENEMA, 00:00: 04:59 rectum [place] MIN OIL,) 00 :00 once now Medica l enema for 1 Branch dose. Perform morning of procedure. mineral oil 2020-0 2020- No [id number] 1{enema Insert 1 [facility] (READY-TO-U 09-06 } Enema into i ty of SE ENEMA, 00:00: 04:59 rectum [place] MIN OIL,) 00 :00 once now Medica l enema for 1 Branch dose. Perform morning of procedure. ciprofloxac 2020-0 Yes [id number] 500mg Take 1 [facility] in HCl 500 6-25 tablet by ity of mg tablet 00:00: mouth [place] 00 every 12 Medical (twelve) Branch hours. Start 1 day before procedure. ciprofloxac 2020-0 Yes [id number] 500mg Take 1 [facility] in HCl 500 6-25 tablet by ity of mg tablet 00:00: mouth [place] 00 every 12 Medical (twelve) Branch hours. Start 1 day before procedure. ciprofloxac 2020-0 Yes [id number] 500mg Take 1 [facility] in HCl 500 6-25 tablet by ity of mg tablet 00:00: mouth [place] 00 every 12 Medical (twelve) Branch hours. Start 1 day before procedure. ciprofloxac 2020-0 Yes [id number] 500mg Take 1 [facility] in HCl 500 6-25 tablet by ity of mg tablet 00:00: mouth [place] 00 every 12 Medical (twelve) Branch hours. Start 1 day before procedure. ciprofloxac 2020-0 Yes [id number] 500mg Take 1 [facility] in HCl 500 6-25 tablet by ity of mg tablet 00:00: mouth [place] 00 every 12 Medical (twelve) Branch hours. Start 1 day before procedure. ciprofloxac 2020-0 Yes [id number] 500mg Take 1 [facility] in HCl 500 6-25 tablet by ity of mg tablet 00:00: mouth [place] 00 every 12 Medical (twelve) Branch hours. Start 1 day before procedure. ciprofloxac 2020-0 Yes [id number] 500mg Take 1 [facility] in HCl 500 6-25 tablet by ity of mg tablet 00:00: mouth [place] 00 every 12 Medical (twelve) Branch hours. Start 1 day before procedure. ciprofloxac 2020-0 Yes [id number] 500mg Take 1 [facility] in HCl 500 6-25 tablet by ity of mg tablet 00:00: mouth [place] 00 every 12 Medical (twelve) Branch hours. Start 1 day before procedure. ciprofloxac 2020-0 Yes [id number] 500mg Take 1 [facility] in HCl 500 6-25 tablet by ity of mg tablet 00:00: mouth [place] 00 every 12 Medical (twelve) Branch hours. Start 1 day before procedure. ciprofloxac 2020-0 Yes [id number] 500mg Take 1 [facility] in HCl 500 6-25 tablet by ity of mg tablet 00:00: mouth [place] 00 every 12 Medical (twelve) Branch hours. Start 1 day before procedure. ciprofloxac 2020-0 Yes [id number] 500mg Take 1 [facility] in HCl 500 6-25 tablet by ity of mg tablet 00:00: mouth [place] 00 every 12 Medical (twelve) Branch hours. Start 1 day before procedure. ciprofloxac 2020-0 Yes [id number] 500mg Take 1 [facility] in HCl 500 6-25 tablet by ity of mg tablet 00:00: mouth [place] 00 every 12 Medical (twelve) Branch hours. Start 1 day before procedure. ciprofloxac 2020-0 Yes [id number] 500mg Take 1 [facility] in HCl 500 6-25 tablet by ity of mg tablet 00:00: mouth [place] 00 every 12 Medical (twelve) Branch hours. Start 1 day before procedure. ciprofloxac 2020-0 Yes [id number] 500mg Take 1 [facility] in HCl 500 6-25 tablet by ity of mg tablet 00:00: mouth [place] 00 every 12 Medical (twelve) Branch hours. Start 1 day before procedure. ciprofloxac 2020-0 Yes [id number] 500mg Take 1 [facility] in HCl 500 6-25 tablet by ity of mg tablet 00:00: mouth [place] 00 every 12 Medical (twelve) Branch hours. Start 1 day before procedure. ciprofloxac 2020-0 Yes [id number] 500mg Take 1 [facility] in HCl 500 6-25 tablet by ity of mg tablet 00:00: mouth [place] 00 every 12 Medical (twelve) Branch hours. Start 1 day before procedure. ciprofloxac 2020-0 Yes [id number] 500mg Take 1 [facility] in HCl 500 6-25 tablet by ity of mg tablet 00:00: mouth [place] 00 every 12 Medical (twelve) Branch hours. Start 1 day before procedure. ciprofloxac 2020-0 Yes [id number] 500mg Take 1 [facility] in HCl 500 6-25 tablet by ity of mg tablet 00:00: mouth [place] 00 every 12 Medical (twelve) Branch hours. Start 1 day before procedure. ciprofloxac 2020-0 Yes [id number] 500mg Take 1 [facility] in HCl 500 6-25 tablet by ity of mg tablet 00:00: mouth [place] 00 every 12 Medical (twelve) Branch hours. Start 1 day before procedure. ciprofloxac 2020-0 Yes [id number] 500mg Take 1 [facility] in HCl 500 6-25 tablet by ity of mg tablet 00:00: mouth [place] 00 every 12 Medical (twelve) Branch hours. Start 1 day before procedure. ciprofloxac 2020-0 2020- No [id number] 500mg Take 1 [facility] in HCl 500 6-25 07-30 tablet by ity of mg tablet 00:00: 00:00 mouth [place] 00 :00 every 12 Medical (twelve) Branch hours. Start 1 day before procedure. ciprofloxac 2020-0 2020- No [id number] 500mg Take 1 [facility] in HCl 500 6-25 07-30 tablet by ity of mg tablet 00:00: 00:00 mouth [place] 00 :00 every 12 Medical (twelve) Branch hours. Start 1 day before procedure. ciprofloxac 2020-0 2020- No [id number] 500mg Take 1 [facility] in HCl 500 6-25 07-30 tablet by ity of mg tablet 00:00: 00:00 mouth [place] 00 :00 every 12 Medical (twelve) Branch hours. Start 1 day before procedure. ciprofloxac 2020-0 2020- No [id number] 500mg Take 1 [facility] in HCl 500 6-25 07-30 tablet by ity of mg tablet 00:00: 00:00 mouth [place] 00 :00 every 12 Medical (twelve) Branch hours. Start 1 day before procedure. ciprofloxac 2020-0 2020- No [id number] 500mg Take 1 [facility] in HCl 500 6-25 07-03 tablet by ity of mg tablet 00:00: 04:59 mouth [place] 00 :00 every 12 Medical (twelve) Branch hours for 7 days. ciprofloxac 2020-0 2020- No [id number] 500mg Take 1 [facility] in HCl 500 6-25 07-03 tablet by ity of mg tablet 00:00: 04:59 mouth [place] 00 :00 every 12 Medical (twelve) Branch hours for 7 days. enalapril 2020-0 Yes 10mg Take 10 mg [place] 10 mg 6-22 by mouth ity of tablet 20:31: daily. [address] amLODIPine 2020-0 Yes 5mg Take 5 mg [place] [facility] 5 mg tablet 6-22 by mouth ity of 20:31: daily. [address] enalapril 2020-0 Yes 10mg Take 10 mg [place] 10 mg 6-22 by mouth ity of tablet 20:31: daily. [address] amLODIPine 2020-0 Yes 5mg Take 5 mg [place] [facility] 5 mg tablet 6-22 by mouth ity of 20:31: daily. [address] enalapril 2020-0 Yes 10mg Take 10 mg [place] 10 mg 6-22 by mouth ity of tablet 20:31: daily. [address] amLODIPine 2020-0 Yes 5mg Take 5 mg [place] 5 mg tablet 6-22 by mouth ity of 20:31: daily. [address] enalapril 2020-0 Yes 10mg Take 10 mg [place] 10 mg 6-22 by mouth ity of tablet 20:31: daily. [address] amLODIPine 2020-0 Yes 5mg Take 5 mg [place] 5 mg tablet 6-22 by mouth ity of 20:31: daily. [address] enalapril 2020-0 Yes 10mg Take 10 mg [place] 10 mg 6-22 by mouth ity of tablet 20:31: daily. [address] amLODIPine 2020-0 Yes 5mg Take 5 mg [place] [facility] 5 mg tablet 6-22 by mouth ity of 20:31: daily. [address] enalapril 2020-0 Yes 10mg Take 10 mg [place] 10 mg 6-22 by mouth ity of tablet 20:31: daily. [address] amLODIPine 2020-0 Yes 5mg Take 5 mg [place] [facility] 5 mg tablet 6-22 by mouth ity of 20:31: daily. [address] enalapril 2020-0 Yes 10mg Take 10 mg [place] 10 mg 6-22 by mouth ity of tablet 20:31: daily. [address] amLODIPine 2020-0 Yes 5mg Take 5 mg [place] [facility] 5 mg tablet 6-22 by mouth ity of 20:31: daily. [address] enalapril 2020-0 Yes 10mg Take 10 mg [place] 10 mg 6-22 by mouth ity of tablet 20:31: daily. [address] amLODIPine 2020-0 Yes 5mg Take 5 mg [facility] 5 mg tablet 6-22 by mouth ity of 20:31: daily. [address] enalapril 2020-0 Yes 10mg Take 10 mg [place] 10 mg 6-22 by mouth ity of tablet 20:31: daily. [address] amLODIPine 2020-0 Yes 5mg Take 5 mg [facility] 5 mg tablet 6-22 by mouth ity of 20:31: daily. [address] enalapril 2020-0 Yes 10mg Take 10 mg [place] 10 mg 6-22 by mouth ity of tablet 20:31: daily. [address] amLODIPine 2020-0 Yes 5mg Take 5 mg [place] [facility] 5 mg tablet 6-22 by mouth ity of 20:31: daily. [address] enalapril 2020-0 Yes 10mg Take 10 mg [place] 10 mg 6-22 by mouth ity of tablet 20:31: daily. [address] amLODIPine 2020-0 Yes 5mg Take 5 mg [place] [facility] 5 mg tablet 6-22 by mouth ity of 20:31: daily. [address] enalapril 2020-0 Yes 10mg Take 10 mg [place] [facility] 10 mg 6-22 by mouth ity of tablet 20:31: daily. [address] amLODIPine 2020-0 Yes 5mg Take 5 mg [facility] 5 mg tablet 6-22 by mouth ity of 20:31: daily. [address] enalapril 2020-0 Yes 10mg Take 10 mg [place] [facility] 10 mg 6-22 by mouth ity of tablet 20:31: daily. [address] amLODIPine 2020-0 Yes 5mg Take 5 mg [facility] 5 mg tablet 6-22 by mouth ity of 20:31: daily. [address] enalapril 2020-0 Yes 10mg Take 10 mg [place] [facility] 10 mg 6-22 by mouth ity of tablet 20:31: daily. [address] amLODIPine 2020-0 Yes 5mg Take 5 mg [place] [facility] 5 mg tablet 6-22 by mouth ity of 20:31: daily. [address] enalapril 2020-0 Yes 10mg Take 10 mg [place] 10 mg 6-22 by mouth ity of tablet 20:31: daily. [address] amLODIPine 2020-0 Yes 5mg Take 5 mg [facility] 5 mg tablet 6-22 by mouth ity of 20:31: daily. [address] enalapril 2020-0 Yes 10mg Take 10 mg [place] [facility] 10 mg 6-22 by mouth ity of tablet 20:31: daily. [address] amLODIPine 2020-0 Yes 5mg Take 5 mg [place] [facility] 5 mg tablet 6-22 by mouth ity of 20:31: daily. [address] enalapril 2020-0 Yes 10mg Take 10 mg [place] [facility] 10 mg 6-22 by mouth ity of tablet 20:31: daily. [address] amLODIPine 2020-0 Yes 5mg Take 5 mg [facility] 5 mg tablet 6-22 by mouth ity of 20:31: daily. [address] enalapril 2020-0 Yes 10mg Take 10 mg [facility] 10 mg 6-22 by mouth ity of tablet 20:31: daily. [address] amLODIPine 2020-0 Yes 5mg Take 5 mg [facility] 5 mg tablet 6-22 by mouth ity of 20:31: daily. [address] enalapril 2020-0 Yes 10mg Take 10 mg [place] [facility] 10 mg 6-22 by mouth ity of tablet 20:31: daily. [address] amLODIPine 2020-0 Yes 5mg Take 5 mg [facility] 5 mg tablet 6-22 by mouth ity of 20:31: daily. [address] enalapril 2020-0 Yes 10mg Take 10 mg [facility] 10 mg 6-22 by mouth ity of tablet 20:31: daily. [address] enalapril 2020-0 Yes 10mg Take 10 mg [facility] 10 mg 6-22 by mouth ity of tablet 20:31: daily. [address] amLODIPine 2020-0 Yes 5mg Take 5 mg [facility] 5 mg tablet 6-22 by mouth ity of 20:31: daily. [address] enalapril 2020-0 Yes 10mg Take 10 mg [place] [facility] 10 mg 6-22 by mouth ity of tablet 20:31: daily. [address] amLODIPine 2020-0 Yes 5mg Take 5 mg [facility] 5 mg tablet 6-22 by mouth ity of 20:31: daily. [address] amLODIPine 2020-0 Yes 5mg Take 5 mg [facility] 5 mg tablet 6-22 by mouth ity of 20:31: daily. [address] enalapril 2020-0 Yes 10mg Take 10 mg [place] [facility] 10 mg 6-22 by mouth ity of tablet 20:31: daily. [address] amLODIPine 2020-0 Yes 5mg Take 5 mg [facility] 5 mg tablet 6-22 by mouth ity of 20:31: daily. [address] enalapril 2020-0 Yes 10mg Take 10 mg [place] [facility] 10 mg 6-22 by mouth ity of tablet 20:31: daily. [address] amLODIPine 2020-0 Yes 5mg Take 5 mg [facility] 5 mg tablet 6-22 by mouth ity of 20:31: daily. [address] enalapril 2020-0 Yes 10mg Take 10 mg [place] [facility] 10 mg 6-22 by mouth ity of tablet 20:31: daily. [address] amLODIPine 2020-0 Yes 5mg Take 5 mg [facility] 5 mg tablet 6-22 by mouth ity of 20:31: daily. [address] enalapril 2020-0 Yes 10mg Take 10 mg [place] [facility] 10 mg 6-22 by mouth ity of tablet 20:31: daily. [address] amLODIPine 2020-0 Yes 5mg Take 5 mg [place] [facility] 5 mg tablet 6-22 by mouth ity of 20:31: daily. [address] enalapril 2020-0 Yes 10mg Take 10 mg [place] [facility] 10 mg 6-22 by mouth ity of tablet 20:31: daily. [address] amLODIPine 2020-0 Yes 5mg Take 5 mg [facility] 5 mg tablet 6-22 by mouth ity of 20:31: daily. [address] enalapril 2020-0 Yes 10mg Take 10 mg [place] [facility] 10 mg 6-22 by mouth ity of tablet 20:31: daily. [address] amLODIPine 2020-0 Yes 5mg Take 5 mg [place] [facility] 5 mg tablet 6-22 by mouth ity of 20:31: daily. [address] enalapril 2020-0 Yes 10mg Take 10 mg [place] [facility] 10 mg 6-22 by mouth ity of tablet 20:31: daily. [address] amLODIPine 2020-0 Yes 5mg Take 5 mg [place] [facility] 5 mg tablet 6-22 by mouth ity of 20:31: daily. [address] enalapril 2020-0 Yes 10mg Take 10 mg [place] [facility] 10 mg 6-22 by mouth ity of tablet 20:31: daily. [address] amLODIPine 2020-0 Yes 5mg Take 5 mg [place] [facility] 5 mg tablet 6-22 by mouth ity of 20:31: daily. [address] enalapril 2020-0 Yes 10mg Take 10 mg [place] [facility] 10 mg 6-22 by mouth ity of tablet 20:31: daily. [address] amLODIPine 2020-0 Yes 5mg Take 5 mg [place] [facility] 5 mg tablet 6-22 by mouth ity of 20:31: daily. [address] enalapril 2020-0 Yes 10mg Take 10 mg [place] [facility] 10 mg 6-22 by mouth ity of tablet 20:31: daily. [address] amLODIPine 2020-0 Yes 5mg Take 5 mg [place] [facility] 5 mg tablet 6-22 by mouth ity of 20:31: daily. [address] enalapril 2020-0 Yes 10mg Take 10 mg [place] 10 mg 6-22 by mouth ity of tablet 20:31: daily. [address] amLODIPine 2020-0 Yes 5mg Take 5 mg [place] 5 mg tablet 6-22 by mouth ity of 20:31: daily. [address] enalapril 2020-0 Yes 10mg Take 10 mg [place] 10 mg 6-22 by mouth ity of tablet 20:31: daily. [address] amLODIPine 2020-0 Yes 5mg Take 5 mg [place] 5 mg tablet 6-22 by mouth ity of 20:31: daily. [address] enalapril 2020-0 Yes 10mg Take 10 mg [place] 10 mg 6-22 by mouth ity of tablet 20:31: daily. [address] enalapril 2020-0 Yes 10mg Take 10 mg [place] 10 mg 6-22 by mouth ity of tablet 20:31: daily. [address] amLODIPine 2020-0 Yes 5mg Take 5 mg [place] 5 mg tablet 6-22 by mouth ity of 20:31: daily. [address] amLODIPine 2020-0 Yes 5mg Take 5 mg [place] 5 mg tablet 6-22 by mouth ity of 20:31: daily. [address] enalapril 2020-0 Yes 10mg Take 10 mg [place] 10 mg 6-22 by mouth ity of tablet 20:31: daily. [address] amLODIPine 2020-0 Yes 5mg Take 5 mg [place] 5 mg tablet 6-22 by mouth ity of 20:31: daily. [address] enalapril 2020-0 Yes 10mg Take 10 mg [place] 10 mg 6-22 by mouth ity of tablet 20:31: daily. [address] amLODIPine 2020-0 Yes 5mg Take 5 mg [place] 5 mg tablet 6-22 by mouth ity of 20:31: daily. [address] enalapril 2020-0 Yes 10mg Take 10 mg [place] 10 mg 6-22 by mouth ity of tablet 20:31: daily. [address] amLODIPine 2020-0 Yes 5mg Take 5 mg [place] [facility] 5 mg tablet 6-22 by mouth ity of 20:31: daily. [address] ciprofloxac 2019-0 2020- No [id number] 500mg Take 1 [facility] in HCl 500 6-22 06-22 tablet by ity of mg tablet 00:00: 00:00 mouth [place] 00 :00 every 12 Medical (twelve) Branch hours for 3 days. Start 1 day before procedure. ciprofloxac 2020-0 2020- No [id number] 500mg Take 1 [facility] in HCl 500 6-22 06-22 tablet by ity of mg tablet 00:00: 00:00 mouth [place] 00 :00 every 12 Medical (twelve) Branch hours for 3 days. Start 1 day before procedure. ciprofloxac 2019-0 2020- No [id number] 500mg Take 1 [facility] in HCl 500 6-22 06-22 tablet by ity of mg tablet 00:00: 00:00 mouth [place] 00 :00 every 12 Medical (twelve) Branch hours for 3 days. Start 1 day before procedure. ciprofloxac 2019-0 2020- No [id number] 500mg Take 1 [facility] in HCl 500 6-22 06-22 tablet by ity of mg tablet 00:00: 00:00 mouth [place] 00 :00 every 12 Medical (twelve) Branch hours for 3 days. Start 1 day before procedure. No known No Univers medications ity of [facility] Immunizations Ordered Filled Immunization Date Status Comments [facility] e Immunization Name Name Kendra SARS-CoV-2 2020-05-31 Completed Univer sity of Vaccination 00:00:00 Sita Wagner [facility] Kendra SARS-CoV-2 2020-05-31 Completed Univer sity of Vaccination 00:00:00 Sita Wagner [facility] Kendra SARS-CoV-2 2020-05-31 Completed Univer sity of Vaccination 00:00:00 Sita Wagner [facility] Kendra SARS-CoV-2 2020-05-31 Completed Univer sity of Vaccination 00:00:00 Sita Wagner [facility] SARS-CoV-2 2020-05-31 Completed Univer sity of Vaccination 00:00:00 [place] Bernard [facility] SARS-CoV-2 2020-05-31 Completed Univer sity of Vaccination 00:00:00 Sita ANDINO Bernard [facility] SARS-CoV-2 2020-05-31 Completed [facility] Completed Univer sity of Vaccination 00:00:00 [place] Bernard [facility] SARS-CoV-2 2020-05-31 Completed Univer sity of Vaccination 00:00:00 [place] MD Wagner [facility] SARS-CoV-2 2020-05-31 Completed Univer sity of Vaccination 00:00:00 Sita Wagner [facility] SARS-CoV-2 2020-05-31 Completed Univer sity of Vaccination 00:00:00 Sita Wagner [facility] SARS-CoV-2 2020-05-31 Completed Univer sity of Vaccination 00:00:00 Sita Wagner [facility] remdesivir 2020-03-07 Completed [facility]00[facility]-03-07 Completed University [facility] 00:00:00 [place] [facility] 2020-03-07 Completed University of 00:00:00 Sita Acosta [facility] remdesivir 2020-03-07 Completed University of 00:00:00 Sita Acosta [facility] remdesivir 2020-03-07 Completed [facility] Completed University of 00:00:00 Sita Acosta [facility] remdesivir 2020-03-07 Completed [facility] Completed [facility]-03-07 Completed University of 00:00:00 Sita Acosta [facility] remdesivir 2020-03-07 Completed [facility]-03-07 Completed University of 00:00:00 [place] Dave [facility] remdesivir 2020-03-07 Completed University of 00:00:00 Sita ANDINO Dave [facility] remdesivir 2020-03-06 Completed University of 00:00:00 [place] Dave [facility] remdesivir 2020-03-06 Completed University of 00:00:00 [place] Dave [facility] remdesivir 2020-03-06 Completed University of 00:00:00 Sita ANDINO Dave [facility] remdesivir 2020-03-06 Completed University of 00:00:00 [place] Dave [facility] remdesivir 2020-03-06 Completed University of 00:00:00 [place] Dave [facility] remdesivir 2020-03-06 Completed University of 00:00:00 [place] Dave [facility] remdesivir 2020-03-06 Completed University of 00:00:00 Sita ANDINO Dave [facility] remdesivir 2020-03-06 Completed University of 00:00:00 Sita ANDINO Dave [facility] remdesivir 2020-03-06 Completed University of 00:00:00 Sita ANDINO Dave [facility] remdesivir 2020-03-06 Completed University of 00:00:00 Sita ANDINO Dave [facility] remdesivir 2020-03-06 Completed University of 00:00:00 Sita ANDINO Dave [facility] remdesivir 2020-03-06 Completed University of 00:00:00 Sita ANDINO Dave [facility] remdesivir 2020-03-05 Completed University of 00:00:00 Sita Gonsaleser [facility] remdesivir 2020-03-05 Completed University of 00:00:00 Sita Gonsaleser [facility] remdesivir 2020-03-05 Completed University of 00:00:00 Sita ANDINO Dave [facility] remdesivir 2020-03-05 Completed University of 00:00:00 Sita Gonsaleser [facility] remdesivir 2020-03-05 Completed University of 00:00:00 Sita Gonsaleser [facility] remdesivir 2020-03-05 Completed University of 00:00:00 Sita ANDINO Dave [facility] remdesivir 2020-03-05 Completed University of 00:00:00 Sita Gonsaleser [facility] remdesivir 2020-03-05 Completed University of 00:00:00 Sita ANDINO Dave [facility] remdesivir 2020-03-05 Completed University of 00:00:00 Sita ANDINO Dave [facility] remdesivir 2020-03-05 Completed University of 00:00:00 Sita ANDINO Dave [facility] remdesivir 2020-03-05 Completed University of 00:00:00 Sita ANDINO Dave [facility] remdesivir 2020-03-05 Completed University of 00:00:00 Sita ANDINO Dave [facility] remdesivir 2020-03-04 Completed University of 00:00:00 Sita ANDINO Dave [facility] remdesivir 2020-03-04 Completed University of 00:00:00 Sita ANDINO Dave [facility] remdesivir 2020-03-04 Completed University of 00:00:00 Sita ANDINO Dave [facility] remdesivir 2020-03-04 Completed University of 00:00:00 Sita ANDINO Dave [facility] remdesivir 2020-03-04 Completed University of 00:00:00 Sita ANDINO Dave [facility] remdesivir 2020-03-04 Completed University of 00:00:00 Sita ANDINO Dave [facility] remdesivir 2020-03-04 Completed University of 00:00:00 Sita ANDINO Dave [facility] remdesivir 2020-03-04 Completed University of 00:00:00 Sita ANDINO Dave [facility] remdesivir 2020-03-04 Completed University of 00:00:00 Sita ANDINO Dave [facility] remdesivir 2020-03-04 Completed University of 00:00:00 Sita ANDINO Dave [facility] remdesivir 2020-03-04 Completed University of 00:00:00 Sita Gonsaleser [facility] remdesivir 2020-03-04 Completed University of 00:00:00 Sita ANDINO Dave [facility] remdesivir 2020-03-03 Completed University of 00:00:00 Sita ANDINO Dave [facility] remdesivir 2020-03-03 Completed University of 00:00:00 Sita Gonsaleser [facility] remdesivir 2020-03-03 Completed University of 00:00:00 Sita Gonsaleser [facility] remdesivir 2020-03-03 Completed University of 00:00:00 Sita ANDINO Dave [facility] remdesivir 2020-03-03 Completed University of 00:00:00 Sita Gonsaleser [facility] remdesivir 2020-03-03 Completed University of 00:00:00 Sita Gonsaleser son [facility] remdesivir 2020-03-03 Completed University of 00:00:00 Sita ANDINO Dave gant [facility] remdesivir 2020-03-03 Completed University of 00:00:00 Sita ANDINO Dave gant [facility] remdesivir 2020-03-03 Completed University of 00:00:00 Sita ANDINO Dave gant [facility] remdesivir 2020-03-03 Completed University of 00:00:00 Sita ANDINO Dave gant [facility] remdesivir 2020-03-03 Completed University of 00:00:00 [place] Dave gant [facility] remdesivir 2020-03-03 Completed University of 00:00:00 [place] Dave gant [facility] pneumococcal 2020-01-10 Completed polysacchar 00:00:00 Tdap 2020-01-10 Completed 00:00:00 pneumococcal 2020-01-10 Completed polysacchar 00:00:00 Tdap 2020-01-10 Completed 00:00:00 Influenza, 2020-01-01 Completed seasonal, inj 00:00:00 Influenza, 2020-01-01 Completed seasonal, inj 00:00:00 Vital Signs Vital Name Observation Time Observation Value Comments Source WEIGHT 2020-02-13 11:54:00 65.8 kg Systolic blood 2019-10-11 18:23:00 153 mm[Hg] Univer sity of pressure [facility] Diastolic blood 2019-10-11 18:23:00 69 mm[Hg] Unive rsity of [facility] Heart rate 2019-10-11 18:23:00 64 /min [facility] Body temperature 2019-10-11 18:23:00 36.67 Lyn [facility] 2019-10-11 18:23:00 14 /min [facility] Body weight 2019-10-11 18:23:00 65.091 kg [facility] BMI 2019-10-11 18:23:00 23.16 kg/m2 [facility] Oxygen saturation in 2019-10-11 18:23:00 96 /min [facility] Arterial blood by [facility] Pulse oximetry Branch Systolic blood 2019-09-14 15:02:00 150 mm[Hg] Univer sity of pressure [facility] Diastolic blood 2019-09-14 15:02:00 71 mm[Hg] Unive rsity of [facility] Heart rate 2019-09-14 15:02:00 68 /min Universi ty of [facility] Body temperature 2019-09-14 15:02:00 36.78 Lyn Univ ersity of [facility] [place] [facility] Respiratory rate 2019-09-14 15:02:00 15 /min Univ ersity of [facility] Body weight 2019-09-14 15:02:00 68.493 kg Universi ty of [facility] BMI 2019-09-14 15:02:00 24.37 kg/m2 Universi ty of [facility] Oxygen saturation in 2019-09-14 15:02:00 98 /min University of Arterial blood by [facility] Pulse oximetry Branch Systolic blood 2019-09-03 20:27:00 156 mm[Hg] Univer sity of pressure [place] [facility] Diastolic blood 2019-09-03 20:27:00 76 mm[Hg] Unive rsity of pressure [facility] Heart rate 2019-09-03 20:27:00 80 /min Universi ty of [facility] Body temperature 2019-09-03 20:27:00 36.44 Lyn Univ ersity of [place] [facility] Respiratory rate 2019-09-03 20:27:00 14 /min Univ ersity of [facility] [place] [facility] Body height 2019-09-03 20:27:00 167.6 cm Universi ty of [place] [facility] Body weight 2019-09-03 20:27:00 68.493 kg [facility] [place] [facility] BMI 2019-09-03 20:27:00 24.37 kg/m2 Universi ty of [facility] Oxygen saturation in 2019-09-03 20:27:00 99 /min University of Arterial blood by [facility] Pulse oximetry Branch Systolic blood 2022-10-03 19:45:00 176 mm[Hg] Univer sity of [facility] Diastolic blood 2022-10-03 19:45:00 67 mm[Hg] Unive rsity of pressure [facility] Heart rate 2022-10-03 19:45:00 57 /min [facility] Body temperature 2022-10-03 19:45:00 36.11 Lyn Univ ersity of [facility] Respiratory rate 2022-10-03 19:45:00 18 /min Univ ersity of [facility] Oxygen saturation in 2022-10-03 19:45:00 97 /min University of Arterial blood by Sita bond Pulse oximetry [facility] BP Systolic 2021-12-11 09:07:00 195 mm[Hg] BP [...] Arterial blood by Sita bond Pulse oximetry [facility] Body temperature 2021-05-26 19:59:39 36.72 Lyn Univ ersity [facility] Respiratory rate 2021-05-26 19:59:39 18 /min Univ ersity of [facility] Body height 2021-05-23 03:14:00 161 cm [facility] Body weight 2021-05-23 03:14:[address] [facility] BMI 2021-05-23 03:14:00 24.23 kg/m2 [facility] BP Systolic [...] Date / Time Performing Clinician Source Performed URINALYSIS WITH 2022-10-03 17:35:00 Josiah Garay [facility] MICROSCOPIC IF INDICATED MD [facility] URINALYSIS MICROSCOPIC 2022-10-03 17:35:00 Josiah Garay Uni versity [facility] EXAM [facility] URINE CULTURE 2022-10-03 17:35:00 Josiah Garay [facility] COMPLETE BLOOD COUNT W/ 2022-10-03 17:17:00 [facility] COMPREHENSIVE METABOLIC 2022-10-03 17:17:00 Josiah Garay iversity [facility] PANEL [facility] MAGNESIUM LEVEL 2022-10-03 17:17:00 Josiah Garay [facility] PHOSPHORUS LEVEL 2022-10-03 17:17:00 Josiah Garay [facility] LACTATE DEHYDROGENASE 2022-10-03 17:17:00 Josiah Garay [facility] APTT 2022-10-03 17:17:00 Josiah Garay [facility] PROTHROMBIN TIME 2022-10-03 17:17:00 Josiah Garay [facility] Results CBC 2022-10-03 17:17:00 Josiah Garay [facility] MANUAL DIFFERENTIAL 2022-10-03 17:17:[address] [facility] GLUCOSE LEVEL 2022-10-03 17:17:00 Josiah Garay [facility] BLOOD UREA NITROGEN 2022-10-03 17:17:[address] [facility] ELECTROLYTE PANEL 2022-10-03 17:17:00 Josiah Garay [facility] SERUM CREATININE 2022-10-03 17:17:00 Josiah Garay [facility] .GLOMERULAR FILTRATION 2022-10-03 17:17:00 Josiah Garay [facility] CALCIUM LEVEL TOTAL 2022-10-03 17:17:[address] [facility] ALBUMIN LEVEL 2022-10-03 17:17:00 Josiah Garay [facility] ALKALINE PHOSPHATASE 2022-10-03 17:17:00 Josiah Garay [facility] ALANINE AMINOTRANSFERASE 2022-10-03 17:17:00 Josiah Garay [facility] ASPARTATE AMINOTRANSFERASE 2022-10-03 17:17:00 Josiah Garay [facility] TOTAL PROTEIN 2022-10-03 17:17:00 Josiah Garay [facility] FRACTIONATED BILIRUBIN 2022-10-03 17:17:00 [facility] TROPONIN T 2021-05-26 08:15:00 Donell Sosa [facility] LEFT HEART CATH 2021-05-25 20:45:00 [facility] ECHOCARDIOGRAM 2D COMPLETE 2021-05-25 16:20:18 [facility] TROP[facility] T 2021-05-25 09:59:00 Donell Sosa [facility] PROSTATE SPECIFIC ANTIGEN 2021-05-25 09:59:00 [facility] TESTOSTERONE LEVEL 2021-05-25 09:59:00 Almas Clements [facility] ABORH 2021-05-24 18:07:00 [facility] [place] [facility] APTT 2021-05-24 18:07:00 [facility] PROT[facility] TIME 2021-05-24 18:07:00 [facility] IMMATURE PLATELET FRACTION 2021-05-24 18:07:00 [facility] RETICULOCYTE COUNT 2021-05-24 18:07:00 Oma Baldwin [facility] CLOT EXPIRATION DATE 2021-05-24 18:07:00 [facility] BASIC METABOLIC PANEL, 2021-05-24 09:19:00 Donell Sosa [facility] CALCIUM TOTAL [facility] MAGNESIUM LEVEL 2021-05-24 09:19:00 Donell Sosa [facility] PHOSPHORUS LEVEL 2021-05-24 09:19:00 Donell Sosa [facility] TROPONIN T 2021-05-24 09:19:00 Donell Sosa [facility] Center GLUCOSE LEVEL 2021-05-24 09:19:00 Donell Sosa [facility] BLOOD UREA NITROGEN 2021-05-24 09:19:00 Donell Sosa [facility] ELECTROLYTE PANEL 2021-05-24 09:19:00 Yeny Donell [facility] SERUM CREATININE 2021-05-24 09:19:00 Yeny [facility] .GLOMERULAR FILTRATION 2021-05-24 09:19:00 Donell Sosa [facility] RATE [facility] CALCIUM LEVEL TOTAL 2021-05-24 09:19:00 Donell Sosa [facility] TROPONIN T 2021-05-24 01:03:00 [facility] E[facility], 12-LEAD (PORTABLE) 2021-05-24 00:00:00 Marielle Grubbs [facility] TROPONIN T 2021-05-23 19:05:00 Denny [facility] BASIC METABOLIC PANEL, 2021-05-23 08:00:00 [facility] CALCIUM TOTAL [facility] MAGNESIUM LEVEL 2021-05-23 08:00:[address] [facility] PHOSPHORUS LEVEL 2021-05-23 08:00:00 Yeny [facility] TROPONIN T 2021-05-23 08:00:[address] [facility] GLUCOSE LEVEL 2021-05-23 08:00:[address] [facility] BLOOD UREA NITROGEN 2021-05-23 08:00:00 Donell Sosa [facility] ELECTROLYTE PANEL 2021-05-23 08:00:00 Yeny [facility] SERUM CREATININE 2021-05-23 08:00:00 Yeny [facility] .GLOMERULAR FILTRATION 2021-05-23 08:00:00 Donell Sosa [facility] RATE [facility] Center CALCIUM LEVEL TOTAL 2021-05-23 08:00:00 [facility] CHEST PULMONARY 2021-05-23 06:00:00 [facility] CONTRAST [facility] CT ABDOMEN PELVIS W 2021-05-23 06:00:00 [facility] CONTRAST [facility] Center XR ABDOMEN 2 VW AP W 2021-05-23 00:24:09 Donell Sosa [facility] UPRIGHT AND OR DECUBITUS MD [facility] TROPONIN T 2021-05-22 23:42:00 Donell Sosa [place] [facility] XR CHEST 1 VW 2021-05-22 21:05:54 Latoya Ho [facility] [place] [facility] RESPIRATORY VIRAL 2021-05-22 19:53:00 Latoya Ho [facility] MULTIPLEX PCR PANEL, [facility] NASOPHARYNGEAL SWAB Center COMPLETE BLOOD COUNT W/ 2021-05-22 19:53:00 Latoya Ho [facility] DIFFERENTIAL [facility] COMPREHENSIVE METABOLIC 2021-05-22 19:53:00 Latoya Ho [facility] PANEL [facility] MAGNESIUM LEVEL 2021-05-22 19:53:00 Latoya Ho [facility] [place] [facility] PHOSPHORUS LEVEL 2021-05-22 19:53:00 Latoya Ho [facility] CARDIAC PANEL 2021-05-22 19:53:00 Latoya Ho [facility] [place] [facility] NT PRO BNP 2021-05-22 19:53:00 Latoya Ho [facility] PROTHROMBIN TIME 2021-05-22 19:53:00 Latoya Ho [facility] APTT 2021-05-22 19:53:00 Latoya Ho [facility] D DIMER 2021-05-22 19:53:00 Latoya Ho [facility] Results CBC 2021-05-22 19:53:00 Latoya Ho [facility] MANUAL DIFFERENTIAL 2021-05-22 19:53:00 Latoya Ho [facility] GLUCOSE LEVEL 2021-05-22 19:53:00 Latoya Ho [facility] [place] [facility] BLOOD UREA NITROGEN 2021-05-22 19:53:00 Latoya Ho [facility] ELECTROLYTE PANEL 2021-05-22 19:53:00 Latoya Ho [facility] SERUM CREATININE 2021-05-22 19:53:00 Latoya Ho [facility] .GLOMERULAR FILTRATION 2021-05-22 19:53:00 [facility] CALCIUM LEVEL TOTAL 2021-05-22 19:53:00 Latoya Ho [facility] ALBUMIN LEVEL 2021-05-22 19:53:00 Latoya Ho [facility] [place] [facility] ALKALINE PHOSPHATASE 2021-05-22 19:53:00 [facility] ALANINE AMINOTRANSFERASE 2021-05-22 19:53:00 Lea Ho [facility] ASPARTATE AMINOTRANSFERASE 2021-05-22 19:53:00 Lizeth Ho [facility] TOTAL PROTEIN 2021-05-22 19:53:00 Latoya Ho [facility] [place] [facility] FRACTIONATED BILIRUBIN 2021-05-22 19:53:00 Latoay Ho [facility] POC TROPONIN I 2021-05-22 19:49:00 Nida Shaffer [facility] [place] [facility] er Center EKG, 12-LEAD (PORTABLE) 2021-05-22 00:00:00 Nida Shaffer Uni [facility] EXTERNAL PROVIDER RECORDS 2019-10-04 05:01:00 Doctor Unassigned, [facility] EXTERNAL PROVIDER RECORDS 2019-10-03 05:01:00 Doctor Unassigned, [facility] Name Medical [place] EXTERNAL PROVIDER RECORDS 2019-09-28 05:01:00 Doctor Unassigned, [facility] Name Medical [place] SURGICAL PATHOLOGY EXAM 2019-09-14 15:52:00 Pako Lopez [facility] ULTRASOUND 2019-09-14 05:01:00 Doctor Valeriy [facility] Name [facility] [place] PROSTATIC SPECIFIC ANTIGEN 2019-09-03 21:05:00 Pako Lopez [facility] URINE CULTURE 2019-09-03 21:05:00 Pako Lopez [place] [facility] DISCLOSURE AND CONSENT, Doctor UnassLuis murillo [facility] MEDICAL AND SURGICAL [place] [facility] PROCEDURES Plan of Care Planned Activity Planned Date Details Comments Source Future Scheduled 2022-10-06 COVID-19 Vaccination [facility] [place] Test 07:02:39 (2 - Kendra risk Anderso n Cancer series) [code = Center COVID-19 Vaccination (2 - Kendra risk series)] Future Scheduled 2022-10-04 COVID-19 Vaccination [facility] [place] Test 07:47:39 (2 - Kendra risk Anderso n Cancer series) [code = Center COVID-19 Vaccination (2 - Kendra risk series)] Future Scheduled 2022-08-24 COVID-19 Vaccination [facility] [place] Test 12:19:30 (2 - Kendra risk Anderso n Cancer series) [code = Center COVID-19 Vaccination (2 - Kendra risk series)] Future Scheduled 2022-08-11 COVID-19 Vaccination [facility] [place] Test 09:17:34 (2 - Kendra risk Anderso n Cancer series) [code = Center COVID-19 Vaccination (2 - Kendra risk series)] Future Scheduled 2022-06-21 COVID-19 Vaccination [facility] [place] Test 11:18:07 (2 - Kendra risk MD Anderso n [...] Goal Plan of Care Note [code = 16532-5] Goal Plan of Care Note [code = 63755-8] Goal Plan of Care Note [code = 89760-2] Goal Plan of Care Note [code = 51355-0] Goal Plan of Care Note [code = 83691-1] Goal Plan of Care Note [code = 16760-5] Goal Plan of Care Note [code = 75045-1] Goal Plan of Care Note [code = 31258-3] Goal Plan of Care Note [code = 13426-4] Goal Plan of Care Note [code = 42288-6] Goal Plan of Care Note [code = 26902-4] Goal Plan of Care Note [code = 68211-0] Goal Plan of Care Note [code = 15063-5] Goal Plan of Care Note [code = 15235-5] Goal Plan of Care Note [code = 01642-8] Goal Plan of Care Note [code = 25674-0] Goal Plan of Care Note [code = 25959-4] Goal Plan of Care Note [code = 72138-6] Goal Plan of Care Note [code = 71689-3] Goal Plan of Care Note [code = 82240-8] Goal Plan of Care Note [code = 75699-1] Goal Plan of Care Note [code = 25126-2] Encounters Start End Encounter Admission Attending Care Care Encounter Source Date/Time Date/Time Type Type Clinicians Facility Department ID 2022-10-05 2022-10-05 Orders Joyner, 1.2.840.1 [id number] Univers 00:00:00 00:00:00 Only Kirstie Rush 40205.1.1 ity of 3.412.2.7 [place] .3.251410 MD [facility] 2022-10-03 2022-10-03 Emergency Josiah Garay 1.2.840.1 [id number] Univers 11:54:00 15:08:00 Gianfranco 19415.1.1 ity of 3.412.2.7 [place] .3.348496 MD [facility] 2022-10-03 2022-10-03 Emergency UR Josiah Garay 1.2.840.1 [id number] Univers 11:54:00 15:08:00 Gianfranco 02090.1.1 ity of 3.412.2.7 [place] .3.482407 MD [facility] 2022-10-03 2022-10-03 Travel 1.2.840.1 1.2.214.125 [id number] Univers 00:00:00 00:00:00 52272.1.1 350.1.13.41 ity of 3.412.2.7 [place].3.698 [place] .3.416981 084.8 MD Rhoades8 [facility] 2022-10-03 2022-10-03 Travel 1.2.840.1 1.2.445.135 [id number] Univers 00:00:00 00:00:00 56022.1.1 350.1.13.41 ity of 3.412.2.[place].698 [place] .3.461357 084.8 MD Rhoades8 [facility] 2022-08-18 2022-08-18 Outpatient SFA SFA [id number] [place] 15:04:19 15:04:19 0607 [facility] 2022-06-09 2022-06-09 Shawn Brandon, 1.2.840.1 [id number] Univers 00:00:00 00:00:00 Saleemah 07544.1.1 ity of 3.412.2.7 [place] .3.409826 MD Rhoades8 [facility] 2022-06-09 2022-06-09 Shawn Brandon, 1.2.840.1 [id number] Univers 00:00:00 00:00:00 Saleemah 62522.1.1 ity of 3.412.2.7 [place] .3.208346 MD Rhoades8 [facility] 2022-03-19 2022-03-19 Outpatient SFA SFA [id number] [place] 08:21:50 08:21:50 0106 [facility] [place] 2021-12-11 2021-12-11 Outpatient SFA SFA [id number] [place] 08:53:23 08:53:23 0930 F [place] 2021-12-11 2021-12-11 Outpatient [id number] 00:00:00 00:00:00 Visit [id number] 2232-09-21 2021-12-02 Shawn Brandon, 1.2.840.1 [id number] Univers 00:00:00 00:00:00 Viancaemah 38604.1.1 ity of 3.412.2.7 [place] .3.193949 MD [facility] 2021-12-02 2021-12-02 Shawn Brandon, 1.2.840.1 [id number] Univers 00:00:00 00:00:00 Viancaema 82120.1.1 ity of 3.412.2.7 [place] .3.473618 MD Rhoades8 [facility] 2021-11-19 2021-11-19 Shawn Palacios, 1.2.840.1 [id number] Univers 00:00:00 00:00:00 Kye 34039.1.1 ity of 3.412.2.7 [place] .3.031044 MD [facility] 2021-11-19 2021-11-19 Shawn Palacios, 1.2.840.1 [id number] Univers 00:00:00 00:00:00 Kye 14588.1.1 ity of 3.412.2.7 [place] .3.009850 MD [facility] 2021-11-10 2021-11-10 Outpatient [id number] 00:00:00 00:00:00 Visit [id number] 2021-11-02 2021-11-02 Shawn Palacios, 1.2.840.1 [id number] Univers 00:00:00 00:00:00 Kye 43499.1.1 ity of 3.412.2.7 [place] .3.869968 MD [facility] 2021-11-02 2021-11-02 Shawn Palacios, 1.2.840.1 [id number] Univers 00:00:00 00:00:00 Kye 36556.1.1 ity of 3.412.2.7 [place] .3.446564 MD Rhoades8 [facility] 2021-10-05 2021-10-05 Keenan Jones, 1.2.840.1 [id number] Univers 00:00:00 00:00:00 Only Ashley Shankar 35978.1.1 it y of 3.412.2.7 [place] .3.469610 MD Rhoades8 [facility] 2021-09-23 2021-09-23 Shawn Palacios, 1.2.840.1 [id number] Univers 00:00:00 00:00:00 Kye 60945.1.1 ity of 3.412.2.7 [place] .3.610719 MD Rhoades8 [facility] 2021-09-23 2021-09-23 Shawn Jones, 1.2.840.1 [id number] Univers 00:00:00 00:00:00 Ashley Shankar 86549.1.1 it y of 3.412.2.7 [place] .3.041692 MD Rhoades8 [facility] 2021-09-21 2021-09-21 Shawn Palacios, 1.2.840.1 [id number] Univers 00:00:00 00:00:00 Kye 39658.1.1 ity of 3.412.2.7 [place] .3.628543 MD Rhoades8 [facility] 2021-05-22 2021-05-26 [facility] 1.2.840.1 [id number] Univers 13:28:00 17:49:00 Zoey Pineda 64921.1.1 ity of Srinivas Nguyen 3.412.2.7 [place] Almas Clements .3.911419 Kye Elizondo .8 [facility] 2021-05-25 2021-05-25 Inpatient GILMA HOANG [facility] [id number] 14:52:01 17:26:46 OMA Ander [facility] 2021-05-22 2021-05-22 Travel 1.2.840.1 1.2.871.255 [id number] Univers 00:00:00 00:00:00 23915.1.1 350.1.13.41 ity of 3.412.2.[place].3.698 [place] .[place].8913[place] 084.8 MD Rhoades8 [facility] 2021-05-17 2021-05-17 Shawn Jones, 1.2.840.1 [id number] Univers 00:00:00 00:00:00 Renju 26140.1.1 ity of 3.412.2.7 [place] .3.277197 MD Rhoades8 [facility] 2021-04-29 2021-04-29 Orders Denny, 1.2.840.1 [id number] Univers 00:00:00 00:00:00 Only Oma 33123.1.1 ity of 3.412.2.7 [place] .3.868712 MD Rhoades8 [facility] 2021-04-29 2021-04-29 Vianey Stuart, 1.2.840.1 [id number] Univers 00:00:00 00:00:00 Serena 48646.1.1 ity of 3.412.2.7 [place] .3.091430 MD [facility] 2021-03-20 2021-03-20 Orders Zachary, 1.2.840.1 [id number] Univers 00:00:00 00:00:00 Only Angelika 56499.1.1 i ty of M 3.412.2.7 [place] .3.562621 MD [facility] 2021-03-20 2021-03-20 Documentat Zachary, 1.2.840.1 [id number] Univers 00:00:00 00:00:00 ion Angelika 96561.1.1 i ty of M 3.412.2.7 [place] .3.039706 .8 [facility] 2021-01-12 2021-01-12 Reflou Stuart, 1.2.840.1 [id number] Univers 00:00:00 00:00:00 Serena 94240.1.1 ity of 3.412.2.7 [place] .3.713379 .8 [facility] 2021-01-12 2021-01-12 Keenan Nails, 1.2.840.1 [id number] Univers 00:00:00 00:00:00 Only Kait 06929.1.1 ity of 3.412.2.7 [place] .3.868490 MD Rhoades8 [facility] 2020-11-20 2020-11-20 Reflou Stratton, 1.2.840.1 [id number] Univers 00:00:00 00:00:00 Sanjuanita 77087.1.1 ity of 3.412.2.7 [place] .3.035523 MD Rhoades8 [facility] 2020-11-19 2020-11-19 Telephone Otto, 1.2.840.1 [id number] Univers 00:00:00 00:00:00 Hagn Rush 27451.1.1 it y of 3.412.2.7 [place] .3.457088 .8 [facility] 2020-11-19 2020-11-19 Nurse Only Otto, 1.2.840.1 [id number] Univers 00:00:00 00:00:00 Hang Rush 91488.1.1 it y of 3.412.2.7 [place] .3.141963 MD Rhoad[facility]8 [facility] 2020-10-31 2020-10-31 Outpatient GILMA MORENO MDA MDA [id number] 11:32:23 11:32:23 AUBREY santacruz 2020-10-27 2020-10-27 Outpatient GILMA FRIED MDA MDA [id number] MD 15:24:16 16:01:02 JORJE Wagner rso n 2020-10-17 2020-10-17 Outpatient [facility], MDA MDA [id number] MD 12:53:40 23:59:00 ERWIN Nathan o n 2020-10-16 2020-10-16 Outpatient [facility], MDA MDA [id number] MD 12:10:00 23:59:00 ERWIN Nathan o n 2020-10-15 2020-10-15 Outpatient [facility], MDA MDA [id number] MD 12:30:00 23:59:00 ERWIN Nathan o n 2020-10-14 2020-10-14 Outpatient [facility], MDA MDA [id number] MD 11:21:52 23:59:00 ERWIN Nathan o n 2020-10-13 2020-10-13 Outpatient [facility], MDA MDA [id number] MD 12:26:36 23:59:00 ERWIN Nathan o n 2020-10-10 2020-10-10 Outpatient [facility], MDA MDA [id number] MD 11:40:24 23:59:00 ERWIN Nathan o n 2020-10-09 2020-10-09 Outpatient [facility], MDA MDA [id number] MD 11:40:00 23:59:00 ERWIN Nathan o n 2020-10-08 2020-10-08 Outpatient [facility], MDA MDA [id number] MD 12:05:00 23:59:00 ERWIN Nathan o n 2020-10-08 2020-10-08 Outpatient [facility], MDA MDA [id number] MD 10:15:00 12:04:00 BOONE-BRANDEN Bernard rso n 2020 2020 Outpatient [facility], MDA MDA [id number] MD 11:55:00 23:59:00 ERWIN Nathan o n 2020 2020 Outpatient [facility], MDA MDA [id number] MD 09:55:27 11:49:27 HAILY And erso n 2020-10-06 2020-10-06 Outpatient [facility], MDA MDA [id number] MD 11:30:00 23:59:00 ERWIN Nathan o n 2020-10-03 2020-10-03 Outpatient [facility], MDA MDA [id number] MD 10:08:21 23:59:00 ERWIN Nathan o n 2020-10-01 2020-10-01 Outpatient [facility], MDA MDA [id number] MD 10:14:10 23:59:00 BOONE-BRANDEN Bernard rso n 2020-09-30 2020-09-30 Outpatient [facility], MDA MDA [id number] MD 11:27:01 23:59:00 ERWIN Nathan o n 2020-09-29 2020-09-29 Outpatient [facility], MDA MDA [id number] MD 11:30:00 23:59:00 ERWIN Nathan o n 2020-09-26 2020-09-26 Outpatient [facility], MDA MDA [id number] MD 12:00:00 23:59:00 ERWIN Nathan o n 2020-09-25 2020-09-25 Outpatient [facility], MDA MDA [id number] MD 11:50:00 23:59:00 ERWIN Nathan o n 2020-09-24 2020-09-24 Outpatient [facility], MDA MDA [id number] MD 11:07:31 23:59:00 ERWIN Nathan o n 2020-09-24 2020-09-24 Outpatient [facility], MDA MDA [id number] MD 10:15:00 11:06:00 BOONE-BRANDEN Bernard rso n 2020-09-24 2020-09-24 Outpatient [facility], MDA MDA [id number] MD 10:00:00 10:14:00 ERWIN Nathan o n 2020-09-24 2020-09-24 Outpatient [facility], MDA MDA [id number] MD 08:56:38 09:14:00 ERWIN Nathan o n 2020-09-23 2020-09-23 Outpatient [facility], MDA MDA [id number] MD 12:01:45 23:59:00 ERWIN Nathan o n 2020-09-22 2020-09-22 Outpatient [facility], MDA MDA [id number] MD 13:23:44 23:59:00 ERWIN Nathan o n 2020-09-22 2020-09-22 Outpatient [facility], MDA MDA [id number] MD 12:16:14 13:22:00 ERWIN Nathan o n 2020-09-19 2020-09-19 Outpatient [facility], MDA MDA [id number] MD 12:00:00 23:59:00 ERWIN Nathan o n 2020-09-18 2020-09-18 Outpatient [facility], MDA MDA [id number] MD 12:00:00 23:59:00 ERWIN Nathan o n 2020-09-17 2020-09-17 Outpatient [facility], MDA MDA [id number] MD 11:01:21 23:59:00 ERWIN Nathan o n 2020-09-17 2020-09-17 Outpatient [facility], MDA MDA [id number] MD 10:15:00 11:00:00 BOONE-BRANDEN Bernard rso n 2020-09-16 2020-09-16 Outpatient [facility], MDA MDA [id number] MD 12:07:04 23:59:00 ERWIN Nathan o n 2020-09-12 2020-09-12 Outpatient [facility], MDA MDA [id number] MD 12:40:00 23:59:00 ERWIN Nathan o n 2020-09-11 2020-09-11 Outpatient [facility], MDA MDA [id number] MD 12:40:00 23:59:00 ERWIN Nathan o n 2020-09-10 2020-09-10 Outpatient [facility], MDA MDA [id number] MD 12:35:00 23:59:00 ERWIN Nathan o n 2020-09-10 2020-09-10 Outpatient [facility], MDA MDA [id number] MD 10:10:54 12:34:00 BOONE-BRANDEN Bernard rso n 2020-09-09 2020-09-09 Outpatient [facility], MDA MDA [id number] MD 12:50:00 23:59:00 ERWIN Nathan o n 2020-09-08 2020-09-08 Outpatient [facility], MDA MDA [id number] MD 12:40:00 23:59:00 ERWIN Nathan o n 2020-09-05 2020-09-05 Outpatient [facility], MDA MDA [id number] MD 12:35:00 23:59:00 ERWIN Nathan o n 2020-09-04 2020-09-04 Outpatient [facility], MDA MDA [id number] MD 12:35:00 23:59:00 ERWIN Nathan o n 2020-09-03 2020-09-03 Outpatient [facility], MDA MDA [id number] MD 11:45:56 23:59:00 ERWIN Nathan o n 2020-09-03 2020-09-03 Outpatient [facility], MDA MDA [id number] 10:45:00 11:44:00 [facility] Bernard rso n 2020-09-02 2020-09-02 Outpatient [facility], MDA MDA [id number] 10:15:00 23:59:00 ERWIN Nathan o n 2020-09-01 2020-09-01 Outpatient [facility], MDA MDA [id number] 11:30:00 23:59:00 ERWIN Nathan o n 2020-07-15 2020-07-15 Outpatient [facility], MDA MDA [id number] 14:04:29 14:04:29 SANJUANITA Nathan o n 2020-07-15 2020-07-15 [facility] MDA [id number] 11:34:08 11:34:08 SANJUANITA Nathan o n 2020-05-15 2020-05-15 Outpatient COH COH PDPFFWO DSR COH 00:00:00 00:00:00 FER-2020-04-06 2020-04-06 Patient Bryson MAANA 1.2.840.114 [id number] 00:00:00 00:00:00 [facility] 350.1.13.10 i ty of [facility] [place] [phone] [address] 2020-02-13 2020-02-13 Outpatient EL CATARINA, MDA MDA [id number] 11:48:27 16:35:54 ERWIN santacruz 2020-02-13 2020-02-13 Outpatient EL CHAYITO, MDA MDA [id number] 14:24:42 14:24:42 SANJUANITA santacruz 2020-02-13 2020-02-13 Outpatient EL MDA MDA [id number] 11:45:49 11:46:05 Nathan santacruz 2020-02-11 2020-02-11 Outpatient GILMA ELMORE, MDA MDA [id number] 10:30:46 10:59:09 ERWIN santacruz 2019-12-14 2019-12-14 Telephone John [facility] 1.2.840.114 [id number] Univers 00:00:00 00:00:00 un Health 350.1.13.10 [place] [phone] [facility] [address] 2019-11-26 2019-11-26 Telephone Lopez [facility] 1.2.840.114 [id number] Univers 00:00:00 00:00:00 [facility] 350.1.13.10 [place] [phone] [facility] [address] 2019-11-16 2019-11-16 Telephone Lopez [facility] 1.2.840.114 [id number] Univers 00:00:00 00:00:00 [facility] 350.1.13.10 it [place] [phone] [facility] [address] 2019-11-14 2019-11-14 Telephone Lopez [facility] 1.2.840.114 [id number] Univers 00:00:00 00:00:00 [facility] 350.1.13.10 [place] [phone] [address] Office Building 2019-10-11 2019-10-24 Office Pako Lopez [facility] 1.2.840.114 [id number] Univers 13:15:19 09:14:14 Visit [facility] 350.1.13.10 [place] [phone] [address] Office Building 2019-10-24 2019-10-24 Telephone Pako Lopez [facility] 1.2.840.114 [id number] Univers 00:00:00 00:00:00 [facility] 350.1.13.10 it [place] [phone] [address] Office Building 2019-10-24 2019-10-24 Patient Thai Silver 1.2.840.114 [id number] Univers 00:00:00 00:00:00 Outreach Jaclyn E Diaz 350.1.13.10 i ty [place] [phone] [address] 2019-10-24 2019-10-24 Patient Petra Bai 1.2.840.114 [id number] Univers 00:00:00 00:00:00 Outreach E Diaz 350.1.13.10 i ty [place] [phone] [address] 2019-10-24 2019-10-24 Telephone Pako Lopez [facility] 1.2.840.114 [id number] Univers 00:00:00 00:00:00 [facility] 350.1.13.10 it [place] [phone] [address] Office Building 2019-10-23 2019-10-23 Telephone Pako Lopez [facility] 1.2.840.114 [id number] Univers 00:00:00 00:00:00 [facility] 350.1.13.10 it [place] [phone] [address] Office Building 2019-10-22 2019-10-22 Telephone LopezPako [facility] 1.2.840.114 [id number] Univers 00:00:00 00:00:00 [facility] 350.1.13.10 it y of [facility] [place] [phone] [address] Office Building 2019-10-19 2019-10-19 Telephone John [facility] 1.2.840.114 [id number] Univers 00:00:00 00:00:00 [facility] 350.1.13.10 it y of [place] [phone] [address] Office Building 2019-10-11 2019-10-11 Outpatient R [facility] [id number] Univers 13:00:00 13:00:[address] [facility] 2019-10-04 2019-10-04 Telephone Pako Lopez 1.2.840.114 [id number] Univers 00:00:00 00:00:00 Shun RAHAT 350.1.13.10 it y of [facility] 4.2.7.2.686 [place] [phone] [address] 2019-10-04 2019-10-04 Orders Doctor KYE 1.2.840.114 [id number] Univers 00:00:00 00:00:00 Only Unassigned, RAHAT 350.1.13.10 [facility] 4.2.7.2.686 [place] [phone] [address] 2019-10-03 2019-10-03 Outpatient R JOHN [facility] [id number] Univers 08:00:00 08:00:[address] [facility] 2019-10-03 2019-10-03 Telephone John [facility] 1.2.840.114 [id number] Univers 00:00:00 00:00:00 [facility] 350.1.13.10 it y of [facility] [place] [phone] [address] Office [facility] 2019-10-03 2019-10-03 Orders Doctor KYE 1Jf2.840.114 [id number] Univers 00:00:00 00:00:00 Only Unassigned, RAHAT 350.1.13.10 ity of [facility] 4.2.7.2.686 [place] [phone] [address] 2019-09-28 2019-09-28 Orders Doctor KYE 1.2.840.114 [id number] Univers 00:00:00 00:00:00 Only Unassigned, RAHAT 350.1.13.10 ity of [facility] 4.2.7.2.686 [place] [id number] [address] 2019-09-23 2019-09-23 Refill John [facility] 1.2.840.114 [id number] Univers 00:00:00 00:00:00 [facility] 350.1.13.10 it [place] of [place] [phone] [address] Office Building 2019-09-21 2019-09-21 Mold [facility] P[facility]her Draw, Clc-B[facility] Lab [facility] 1.2.8 40.114 [id number] Univers 12:13:57 12:28:57 Visit Pako Lopez [facility] 350.1.13 .10 ity of [place] [phone] [facility] [address] 2019-09-21 2019-09-21 Office John [facility] 1.2.840.114 [id number] Univers 11:04:12 11:34:12 Visit [facility] Health 350.1.13.10 it y of [place] [phone] [address] Office Building 2019-09-21 2019-09-21 Outpatient R JOHN [facility] [id number] Univers 10:30:00 10:30:[address] [facility] 2019-09-21 2019-09-21 Telephone Pako Lopez 1.2.840.114 [id number] Univers 00:00:00 00:00:00 Shun RAHAT 350.1.13.10 it y of [place] [facility] 4.2.7.2.686 [place] [phone] [address] 2019-09-21 2019-09-21 Telephone John [facility] 1.2.840.114 [id number] Univers 00:00:00 00:00:00 un Health 350.1.13.10 it y of [facility] [place] [phone] [address] Office Building 2019-09-18 2019-09-18 Telephone Pako Lopez 1.2.840.114 [id number] Univers 00:00:00 00:00:00 Shun RAHAT 350.1.13.10 it y of [facility] 4.2.7.2.686 [place] [phone] [address] 2019-09-18 2019-09-18 Telephone Pako Lopez 1.2.840.114 [id number] Univers 00:00:00 00:00:00 Shun RAHAT 350.1.13.10 it y of [facility] 4.2.7.2.686 [place] [phone] [address] 2019-09-14 2019-09-14 Office Lopez, [facility] 1.2.840.114 [id number] Univers 09:53:55 10:46:20 Visit [facility] 350.1.13.10 it y of [facility] 4.2.7.2.686 [place] [phone] [address] Office [facility] 2019-09-14 2019-09-14 Outpatient R LOPEZ, [facility] [id number] Univers 10:00:00 10:00:[address] [facility] 2019-09-14 2019-09-14 Orders Doctor KYE 1.2.840.114 [id number] Univers 00:00:00 00:00:00 Only Unassigned, RAHAT 350.1.13.10 ity of [facility] 4.2.7.2.686 [place] [phone] [address] 2019-09-07 2019-09-07 Outpatient R LOPEZ, [facility] [id number] Univers 08:00:00 08:00:[address] [facility] 2019-09-03 2019-09-06 Office Lopez, [facility] 1.2.840.114 [id number] Univers 15:04:24 10:34:22 Visit [facility] Health 350.1.13.10 it y of [place] [phone] [facility] [address] 2019-09-05 2019-09-05 Patient Doctor KYE 1.2.840.114 [id number] Univers 00:00:00 00:00:00 Secure Msg Unassigned, RAHAT 350.1.13.10 ity of [place] [facility] 4.2.7.2.686 [place] [phone] [address] 2019-09-03 2019-09-03 [employer] Draw, Clc-Bls Lab [facility] 1.2.8 40.114 [id number] Univers 16:05:21 16:20:21 Visit Pako Lopez 350.1.13 .10 ity [place] [phone] [address] Office Building 2019-09-03 2019-09-03 Outpatient R JOHN PAKO [facility] [id number] Univers 15:00:00 15:00:[address] [facility] Orders Doctor KYE 1.2.840.114 [id number] Univers 00:00:00 00:00:00 Only Unassigned, RAHAT 350.1.13.10 ity of [facility] 4.2.7.2.686 [place] [phone] [address] Results Test Description Test Time Test Comments Results Result Comments Source Urine Culture 2022-10-05 13:23:50 Test Item Value Reference Range Interpretation Comme nts Final Report (test code = 8488) <10,000 cfu/ml Normal site sapphire A present.Generally of low significance.Correlate with clinical data and culture history. Lab Interpretation (test code = Abnormal 12786-8) [facility] Exam 2022-10-03 19:25:30 Test Item Value Reference Range Interpretation Comments UA WBC (test code = NOT SEEN See_Comment Some rep orting 05290-8) parameters with in the Urinalysis test have changed due to the implementation of new instrumentation in the Main [employer], al lowing greater sensiti vity of measurement. Urinalysis resu lts reported by the [facility] C enters using existing instrumentation , as well as Urinaly sis testing perform ed manually or by backup methodology at the [facility] maggie l remain relative ly unchanged. New reporting tremaine eters and units will not be reported for [facility]. [Auto mated message] The sy stem which generated this result transmit esteban reference range : 0 - 2 /HPF. The refer ence range was not u sed to interpret this result as normal/abnor mal. UA RBC (test code = See_Comment H [Automa esteban message] 09308-4) The system [employer] generated this result transmitted ref erence range: 0 - 2 /H PF. The reference range was not used to int erpret this result as normal/abnormal . UA Mucous (test code = NOT SEEN Not Seen-Trace 96600-3) /HPF UA Bacteria (test code NOT SEEN NOT SEEN /HPF = 72907-1) UA Squam Epi (test NOT SEEN None-Occasional code = 97538-4) /HPF Lab Interpretation Abnormal (test code = 03355-4) [facility] Microsc[facility] Exam 2022-10-03 19:25:30 Test Item Value Reference Range Interpretation Comments UA WBC (test code = NOT SEEN See_Comment Some rep orting 26035-3) parameters with in the Urinalysis test have changed due to the implementation of new instrumentation in the [facility], al lowing greater sensiti vity of measurement. Urinalysis resu lts reported by the [facility] C enters using existing instrumentation , as well as Urinaly sis testing perform ed manually or by backup methodology at the [facility] maggie l remain relative ly unchanged. New reporting tremaine eters and units will not be reported for [facility]. [Auto mated message] The sy stem which generated this result transmit esteban reference range : 0 - 2 /HPF. The refer ence range was not u sed to interpret this result as normal/abnor mal. UA RBC (test code = See_Comment H [Automa esteban message] 40396-7) The system [employer] generated this result transmitted ref erence range: 0 - 2 /H PF. The reference range was not used to int erpret this result as normal/abnormal . UA Mucous (test code = NOT SEEN Not Seen-Trace 78864-1) /HPF UA Bacteria (test code NOT SEEN NOT SEEN /HPF = 78412-5) UA Squam Epi (test NOT SEEN None-Occasional code = 80853-6) /HPF Lab Interpretation Abnormal (test code = 32832-5) [facility]/Microscopic if Itcfpugoi6814-17-75 18:19:57 Test Item Value Reference Range Interpretation Comments UA Color (test code = 26712-7) Audelia Straw-Yellow A UA Appear (test code = 40288-6) Cloudy Clear A UA Glucose (test code = 5792-7) NEG NEG mg/dL UA Bili (test code = 5770-3) NEG NEG UA Ketones (test code = 5797-6) 20 mg/dL NEG A UA Spec Grav (test code = 5810-7) 1.014 1.003-1.035 UA Blood (test code = 5794-3) Large NEG A UA pH (test code = 5803-2) 7.0 5.0-9.0 UA Protein (test code = 5804-0) 100 mg/dL NEG A UA Urobilinogen (test code = NEG NEG 5818-0) UA Nitrite (test code = 5802-4) NEG NEG UA Leuk Est (test code = 5799-2) Small NEG A Lab Interpretation (test code = Abnormal 25635-7) [facility] w/Microscopic if Uthjxmpps7750-83-22 18:19:57 Test Item Value Reference Range Interpretation Comments UA Color (test code = 09311-2) Audelia Straw-Yellow A UA Appear (test code = 45764-4) Cloudy Clear A UA Glucose (test code = 5792-7) NEG NEG mg/dL UA Bili (test code = 5770-3) NEG NEG UA Ketones (test code = 5797-6) 20 mg/dL NEG A UA Spec Grav (test code = 5810-7) 1.014 1.003-1.035 UA Blood (test code = 5794-3) Large NEG A UA pH (test code = 5803-2) 7.0 5.0-9.0 UA Protein (test code = 5804-0) 100 mg/dL NEG A UA Urobilinogen (test code = NEG NEG 5818-0) UA Nitrite (test code = 5802-4) NEG NEG UA Leuk Est (test code = 5799-2) Small NEG A Lab Interpretation (test code = Abnormal 03812-5) [facility] 17:57:07 Test Item Value Reference Range Interpretation Comments LDH (test code = 494 U/L 135-225 [place] [address]-2) hemolyzed. Resu lts may be falsely elevated. Repea t test if needed.Resul ts greater than 16 51 U/L may not be reli able due to matrix e ffect with extended dilution as it exceeds the court attendant's recommended simon it. Caution should be exercised when interpreting mcgraw ch values and done in conjunction wit h clinical contex t. Lab Interpretation (test Abnormal code = 33429-5) [facility] 17:57:07 Test Item Value Reference Range Interpretation Comments LDH (test code = 494 U/L 135-225 [place] [address]-6) hemolyzed. Resu lts may be falsely elevated. Repea t test if needed.Resul ts greater than 16 51 U/L may not be reli able due to matrix e ffect with extended dilution as it exceeds the court attendant's recommended simon it. Caution should be exercised when interpreting mcgraw ch values and [facility] clinical [facility]tex t. Lab Interpretation (test Abnormal code = 91613-5) [facility] HospitalFractionated Ujwonulds5312-48-54 17:55:12 Test Item Value Reference Range Interpretation Comments Bili Total (test 0.8 mg/dL <=1.2 Indocyanine Green (ICG) code = 1974-04) may cause fal sely elevated biliru bin results. Total and direct bilirubin must not be measured from s amples containing indo cyanine green. False el evation of total bilirubin can be seen in patient s with IgG concentrations above 28 g/L. Bili Direct (test 0.2 mg/dL <=0.3 Indocyanin e Green (ICG) code = 1967-09) may cause fal sely elevated biliru bin results. Total and direct bilirubin must not be measured from s amples containing indo cyanine green. Bili Indirect (test 0.6 mg/dL 0.0-0.9 code = 1970-03) [facility] HospitalFractionated Rntvueycc3920-78-33 17:55:12 Test Item Value Reference Range Interpretation Comments Bili Total (test 0.8 mg/dL <=1.2 Indocyanine Green (ICG) code = 1974-) may cause fal sely elevated biliru bin results. Total and direct bilirubin must not be measured from s amples containing indo cyanine green. False el evation of total bilirubin can be seen in patient s with IgG concentrations above 28 g/L. Bili Direct (test 0.2 mg/dL <=0.3 Indocyanin e Green (ICG) code = 1967-09) may cause fal sely elevated biliru bin results. Total and direct bilirubin must not be measured from s amples containing indo cyanine green. Bili Indirect (test 0.6 mg/dL 0.0-0.9 code = 1970-03) [facility] HospitalGlomerular Filtration Rate 2022-10-03 17:55:11 Test Item Value Reference Range Interpretation Comments eGFR (test code = 90 See_Comment The eGFRcr [place] 65381-3) the 2020 CKD-EP I creatinine equation using creatinine, patient's age, and sex for adults 18 years of age and older. Other fa ctors, especially musc le mass, may affect accuracy and need to be considered.A ccording to the Kidney Dise ase: Improving Global Outcomes (KDIGO) CKD Work Group 2012 Clinical Practice Guidel ine, chronic kidney disease (CKD) is defined as the abnormalities of kidney struc ture or function, prese nt for more than 3 months, with implications fo r health. CKD should be class ified by cause, GFR tye gory, and albuminuria cat egory. KDIGO guidelines prov jose raul the following GFR c ategoriesStage Description GFR mL/min/1.73 m2G1* Normal or high >= 90G2* Mildly decrease d 60-89G3a Mildly to moder ately decreased 45-59 G3b Moderately to severely dec reased 30-44G4 Severely decrea sed 15-29G5 Kidney failure <15*In the absence of evid ence of kidney damage, neither G1 nor G2 fulfill criteri a for CKD. [Automated mess age] The system which ge nerated this result transmit esteban reference range: >=60 mL/ min/1.73 sq. m. The referenc e range was not used to int erpret this result as cuate l/abnormal. [facility] Hospital[facility] Rate 2022-10-03 17:55:11 Test Item Value Reference Range Interpretation Comments eGFR (test code = 90 See_Comment The eGFRcr [place] calculated with 80753-5) the 2020 CKD-EP I creatinine equation using creatinine, patient's age, and sex for adults 18 years of age and older. Other fa ctors, especially musc le mass, may affect accuracy and need to be considered.A ccording to the Kidney Dise ase: Improving Global Outcomes (KDIGO) CKD Work Group 2012 Clinical Practice Guidel ine, chronic kidney disease (CKD) is defined as the abnormalities of kidney struc ture or function, prese nt for more than 3 months, with implications fo r health. CKD should be class ified by cause, GFR tye gory, and albuminuria cat egory. KDIGO guidelines prov jose raul the following GFR c ategoriesStage Description GFR mL/min/1.73 m2G1* Normal or high >= 90G2* Mildly decrease d 60-89G3a Mildly to moder ately decreased 45-59 G3b Moderately to severely dec reased 30-44G4 Severely decrea sed 15-29G5 Kidney failure <15*In the absence of evid ence of kidney damage, neither G1 nor G2 fulfill criteri a for CKD. [Automated mess age] The system which ge nerated this result transmit esteban reference range: >=60 mL/ min/1.73 sq. m. The referenc e range was not used to int erpret this result as cuate l/abnormal. [facility] HospitalTotal Ojafhpx0557-91-07 17:55:10 Test Item Value Reference Range Interpretation Comments Total Protein (test code = 2885-2) 6.8 g/dL 6.4-8.3 [facility] HospitalTotal Yneohyk9429-16-24 17:55:10 Test Item Value Reference Range Interpretation Comments Total Protein (test code = 2885-2) 6.8 g/dL 6.4-8.3 [facility] HospitalMagnesium Eoznm3596-27-59 17:55:09 Test Item Value Reference Range Interpretation Comments Magnesium (test code = 57411-5) 2.1 mg/dL 1.6-2.6 [facility] HospitalMagnesium Zjnrh0198-07-08 17:55:09 Test Item Value Reference Range Interpretation Comments Magnesium (test code = 00944-2) 2.1 mg/dL 1.6-2.6 [facility] HospitalAlkaline Qgqcbfsuxxy6031-19-20 17:55:08 Test Item Value Reference Range Interpretation Comments Alk Phos (test code = 6768-6) 82 U/L 40-129 [facility] HospitalAlkaline Elvovmqacmy7285-52-73 17:55:08 Test Item Value Reference Range Interpretation Comments Alk Phos (test code = 6768-6) 82 U/L 40-129 [facility] HospitalALT2023-07-23 17:55:07 Test Item Value Reference Range Interpretation Comments ALT (test code = 1742-6) 10 U/L <=41 [facility] HospitalALT2023-07-23 17:55:07 Test Item Value Reference Range Interpretation Comments ALT (test code = 1742-6) 10 U/L <=41 [facility].Serum Nytgykwzol6081-04-51 17:55:06 Test Item Value Reference Range Interpretation Comments Creatinine (test code = 2160-0) 0.78 mg/dL 0.67-1.17 [facility].Serum Cmlleyyhcc5729-40-68 17:55:06 Test Item Value Reference Range Interpretation Comments Creatinine (test code = 2160-0) 0.78 mg/dL 0.67-1.17 [facility] HospitalBUN2023-07-23 17:55:05 Test Item Value Reference Range Interpretation Comments BUN (test code = 3094-0) 13 mg/dL 09-03 [facility] HospitalBUN2023-07-23 17:55:05 Test Item Value Reference Range Interpretation Comments BUN (test code = 3094-0) 13 mg/dL 09-03 [facility] HospitalElectrolyte Rgekh7157-30-32 17:55:04 Test Item Value Reference Range Interpretation Comments Sodium Lvl (test code = 137 See_Comment [Au tomated message] The 2951-2) system which ge nerated this result tra nsmitted reference range : 136 - 145 mEq/L. The reference range was not u sed to interpret this result as normal/abnormal . Potassium Lvl (test 3.8 See_Comment [Automa esteban message] The code = 2823-3) system which generated this result tra nsmitted reference range : 3.5 - 5.1 mEq/L. The reference range was not u sed to interpret this result as normal/abnormal . Chloride (test code = 103 See_Comment [Auto mated message] The ) system which ge nerated this result tra nsmitted reference range : 98 - 107 mEq/L. The refe rence range was not u sed to interpret this result as normal/abnormal . CO2 (test code = 24 See_Comment [Automated message] The 2027-11) system which ge nerated this result tra nsmitted reference range : 22 - 29 mEq/L. The refe rence range was not u sed to interpret this result as normal/abnormal . Anion Gap (test code = 10 See_Comment [Aut omated message] The ) system which ge nerated this result tra nsmitted reference range : 4 - 14 mEq/L. The refe rence range was not u sed to interpret this result as normal/abnormal . [facility] HospitalElectrolyte [id number] 17:55:04 Test Item Value Reference Range Interpretation Comments Sodium Lvl (test code = 137 See_Comment [Au tomated message] The 2950-04) system which ge nerated this result tra nsmitted reference range : 136 - 145 mEq/L. The reference range was not u sed to interpret this result as normal/abnormal . Potassium Lvl (test 3.8 See_Comment [Automa esteban message] The code = 2823-3) system which generated this result tra nsmitted reference range : 3.5 - 5.1 mEq/L. The reference range was not u sed to interpret this result as normal/abnormal . Chloride (test code = 103 See_Comment [Auto mated message] The ) system which ge nerated this result tra nsmitted reference range : 98 - 107 mEq/L. The refe rence range was not u sed to interpret this result as normal/abnormal . CO2 (test code = 24 See_Comment [Automated message] The 2027-11) system which ge nerated this result tra nsmitted reference range : 22 - 29 mEq/L. The refe rence range was not u sed to interpret this result as normal/abnormal . Anion Gap (test code = 10 See_Comment [Aut omated message] The 42023-6) system which ge nerated this result tra nsmitted reference range : 4 - 14 mEq/L. The refe rence range was not u sed to interpret this result as normal/abnormal . [facility] HospitalPhosphorus Cvzzc3759-06-16 17:55:02 Test Item Value Reference Range Interpretation Comments Phosphorus (test code = 2777-1) 3.1 mg/dL 2.5-4.5 [facility] HospitalPhosphorus Bxaqq6546-82-35 17:55:02 Test Item Value Reference Range Interpretation Comments Phosphorus (test code = 2777-1) 3.1 mg/dL 2.5-4.5 [facility] HospitalCalcium Utkgq5548-45-17 17:55:01 Test Item Value Reference Range Interpretation Comments Calcium Lvl (test code = 55530-2) 9.1 mg/dL 8.4-10.2 [facility] HospitalCalcium Rhzqz6798-21-05 17:55:01 Test Item Value Reference Range Interpretation Comments Calcium Lvl (test code = 31546-9) 9.1 mg/dL 8.4-10.2 [facility] [id number] 17:55:00 Test Item Value Reference Range Interpretation Comments Albumin Lvl (test code 4.2 See_Comment [Aut omated message] The = 1750-09) system which ge nerated this result tra nsmitted reference range : 3.5 - 5.2 gm/dL. The refe rence range was not used to interpret this result as normal/abnormal . [facility]Album[facility] [id number] 17:55:00 Test Item Value Reference Range Interpretation Comments Albumin Lvl (test code 4.2 See_Comment [Aut omated message] The = 1750-09) system which ge nerated this result tra nsmitted reference range : 3.5 - 5.2 gm/dL. The refe rence range was not used to interpret this result as normal/abnormal . [facility] HospitalAspartate Aminotransferase 2022-10-03 17:54:59 Test Item Value Reference Range Interpretation Comments AST (test code = 1920-8) 17 U/L <=40 [facility] HospitalAspartate Aminotransferase 2022-10-03 17:54:59 Test Item Value Reference Range Interpretation Comments AST (test code = 1920-8) 17 U/L <=40 [facility] HospitalGlucose [id number] 17:54:57 Test Item Value Reference Range Interpretation Comments Glucose Level (test 90 mg/dL 70-99 Effectiv e 10/08/15, the code = 2345-7) glucose refer ence intervals have been updated based o n [employer] narda delines (Standards of edical Care in Diabete s 2016. Diabetes Care 2 016; 39: S13-S22).Fastin g blood glucose:Normal: 70-99 mg/dLImpaired f asting glucose (increa sed risk for diabetes or pre-diabetes): 100-125 mg/dLDiabetes m ellitus: >/=126 mg/dL Ra ndom blood glucose:N ormal: 70-199 mg/dLNot e: Random glucose >100 mg /dL is associated with increased risk for diabetes [facility] HospitalGlucose [id number] 17:54:57 Test Item Value Reference Range Interpretation Comments Glucose Level (test 90 mg/dL 70-99 Effectiv e 10/08/15, the code = 2345-7) glucose refer ence intervals have been updated based o n [employer] narda delines (Standards of M edical Care in Diabete s 2016. Diabetes Care 2 016; 39: S13-S22).Fastin g blood glucose:Normal: 70-99 mg/dLImpaired f asting glucose (increa sed risk for diabetes or pre-diabetes): 100-125 mg/dLDiabetes m ellitus: >/=126 mg/dL Ra ndom blood glucose:N ormal: 70-199 mg/dLNot e: Random glucose >100 mg /dL is associated with increased risk for diabetes [facility] HospitalaPTT2023-07-[facility] 17:53:30 Test Item Value Reference Range Interpretation Comments aPTT (test code = 31.7 See_Comment [Automate d message] The 83348-9) system which ge nerated this result transmit esteban reference range : 24.1 - 35.5 second(s). The reference range was not used to interpr et this result as cuate l/abnormal. [facility] HospitalaPTT20[facility] 17:53:30 Test Item Value Reference Range Interpretation Comments aPTT (test code = 31.7 See_Comment [Automate d message] The 54664-6) system which ge nerated this result transmit esteban reference range : 24.1 - 35.5 second(s). The reference range was not used to interpr et this result as cuate l/abnormal. [facility] HospitalProthrombin Time with [id number] 17:53:29 Test Item Value Reference Range Interpretation Comments PT (test code = 13.7 See_Comment [Automated message] The 5902-2) system which ge nerated this result transmit esteban reference range : 11.9 - 14.5 second(s). The reference range was not used to interpr et this result as cuate l/abnormal. INR (test code = 1.06 0.87-1.12 6301-6) [facility] HospitalProthrombin Time with [id number] 17:53:29 Test Item Value Reference Range Interpretation Comments PT (test code = 13.7 See_Comment [Automated message] The 5902-2) system which ge nerated this result transmit esteban reference range : 11.9 - 14.5 second(s). The reference range was not used to interpr et this result as cuate l/abnormal. INR (test code = 1.06 0.87-1.12 6301-6) [facility] HospitalDifferential2023-07-23 17:27:39 Test Item Value Reference Range Interpretation Comments Neutrophil % (test code = 76.9 % 43.2-72.7 H 6491) Lymphocyte % (test code = 11.5 % 16.8-46.2 L 6194) Monocyte % (test code = 9.8 % 5.1-12.5 6422) Eosinophil % (test code = 0.8 % 0.4-6.3 5520) Basophil % (test code = 0.7 % 0.2-1.4 5068) IGRE % (test code = 5958) 0.3 % 0.1-1.5 IG RE % count includes Metamyelocytes, Myelocytes, and Promyelocytes. Neutrophil Abs (test code 4.60 K/uL 1.95-7.25 = 6492) Lymphocyte Abs (test code 0.69 K/uL 1.01-3.24 L = 6195) Monocyte Abs (test code = 0.59 K/uL 0.24-0.85 6423) Eosinophil Abs (test code 0.05 K/uL 0.02-0.50 = 5521) Basophil Abs (test code = 0.04 K/uL 0.02-0.09 5069) IG Abs (test code = 5954) 0.02 K/uL 0.01-0.12 Lab Interpretation (test Abnormal code = 80470-2) [facility] HospitalDifferential2023-07-23 17:27:39 Test Item Value Reference Range Interpretation Comments Neutrophil % (test code = 76.9 % 43.2-72.7 H 6491) Lymphocyte % (test code = 11.5 % 16.8-46.2 L 6194) Monocyte % (test code = 9.8 % 5.1-12.5 6422) Eosinophil % (test code = 0.8 % 0.4-6.3 5520) Basophil % (test code = 0.7 % 0.2-1.4 5068) IGRE % (test code = 5958) 0.3 % 0.1-1.5 IG RE % count includes Metamyelocytes, Myelocytes, and Promyelocytes. Neutrophil Abs (test code 4.60 K/uL 1.95-7.25 = 6492) Lymphocyte Abs (test code 0.69 K/uL 1.01-3.24 L = 6195) Monocyte Abs (test code = 0.59 K/uL 0.24-0.85 6423) Eosinophil Abs (test code 0.05 K/uL 0.02-0.50 = 5521) Basophil Abs (test code = 0.04 K/uL 0.02-0.09 5069) IG Abs (test code = 5954) 0.02 K/uL 0.01-0.12 Lab Interpretation (test Abnormal code = 88998-7) [facility].[id number] 17:27:26 Test Item Value Reference Range Interpretation Comments WBC (test code = 8034) 6.0 K/uL 4.1-10.5 RBC (test code = 6932) 4.48 See_Comment [Aut omated message] The system [employer] generated this result transmitted ref erence range: 4.30 - 6 .04 M/uL. The refer ence range was not u sed to interpret this result as normal/abnor mal. Hgb (test code = 5898) 13.1 See_Comment L [Aut omated message] The system [employer] generated this result transmitted ref erence range: 13.3 - 1 7.4 gm/dL. The refe rence range was not u sed to interpret this result as normal/abnor mal. Hct (test code = 5860) 40.4 % 39.5-51.8 MCV (test code = 6222) 90 fL 82-99 MCH (test code = 6220) 29.2 pg 26.6-33.2 MCHC (test code = 6221) 32.4 See_Comment [Au tomated message] The system [employer] generated this result transmitted ref erence range: 31.1 - 3 5.2 gm/dL. The refe rence range was not u sed to interpret this result as normal/abnor mal. RDW-SD (test code = 50.4 fL 37.5-49.7 H 6972) RDW-CV (test code = 15.3 % 11.6-15.5 6971) Platelet count (test 181 K/uL 160-397 code = 6832) MPV (test code = 6282) 10.7 fL 9.1-12.6 INRBC (test code = 0.0 See_Comment The INRBC (instrument 5974) NRBC) value ref lects the enumeration of nucleated red b lood cells contained in a 200uL sampleof whole blood analyzed by the instrument. Thi s value maydiffer from the NRBC value repo rted in a manual differential,wh ich is based on a 100 cell differential. [Automated mess age] The system [employer] generated this result transmitted ref erence range: 0.0 - 0. 1 /100 WBC. The refere nce range was not u sed to interpret this result as normal/abnor mal. Lab Interpretation Abnormal (test code = 11318-1) [facility] [place].[id number] 17:27:26 Test Item Value Reference Range Interpretation Comments WBC (test code = 8034) 6.0 K/uL 4.1-10.5 RBC (test code = 6932) 4.48 See_Comment [Aut omated message] The system [employer] generated this result transmitted ref erence range: 4.30 - 6 .04 M/uL. The refer ence range was not u sed to interpret this result as normal/abnor mal. Hgb (test code = 5898) 13.1 See_Comment L [Aut omated message] The system [employer] generated this result transmitted ref erence range: 13.3 - 1 7.4 gm/dL. The refe rence range was not u sed to interpret this result as normal/abnor mal. Hct (test code = 5860) 40.4 % 39.5-51.8 MCV (test code = 6222) 90 fL 82-99 MCH (test code = 6220) 29.2 pg 26.6-33.2 MCHC (test code = 6221) 32.4 See_Comment [Au tomated message] The system [employer] generated this result transmitted ref erence range: 31.1 - 3 5.2 gm/dL. The refe rence range was not u sed to interpret this result as normal/abnor mal. RDW-SD (test code = 50.4 fL 37.5-49.7 H 6972) RDW-CV (test code = 15.3 % 11.6-15.5 6971) Platelet count (test 181 K/uL 160-397 code = 6832) MPV (test code = 6282) 10.7 fL 9.1-12.6 INRBC (test code = 0.0 See_Comment The INRBC (instrument 5974) NRBC) value ref lects the enumeration of nucleated red b lood cells contained in a 200uL sampleof whole blood analyzed by the instrument. Thi s value maydiffer from the NRBC value repo rted in a manual differential,wh ich is based on a 100 cell differential. [Automated mess age] The system [employer] generated this result transmitted ref erence range: 0.0 - 0. 1 /100 WBC. The refere nce range was not u sed to interpret this result as normal/abnor mal. Lab Interpretation Abnormal (test code = 58185-3) [facility] [place] [id number] 10:24:25 Test Item Value Reference Range Interpretation Comments TSH, THIRD 0.921 UIU/ML 0.400-4.100 UNLESS OTHERWI SE GENERATION (test INDICATED, ALL TESTING code = 2821) PERFORMED [facility], [address] [place] [address] [facility] DIRECTOR: RENETTA GOLDMAN M.D. CLIA NUMBER [id number] CAP ACCREDITATION N O. [id number] COMPREHENSIVE METABOLIC [id number] 06:52:03 Test Item Value Reference Range Interpretation Comments GLUCOSE (test code = 99 MG/DL 70-99 2216) BUN (test code = 19 MG/DL 8-23 2207) CREATININE (test 0.80 MG/DL 0.80-1.40 code = 2214) eGFR (2020 CKD-EPI) 89 ML/MIN/1.73 >60 (test code = 70775) CALC BUN/CREAT (test 24 RATIO 6-28 code = 2235) SODIUM (test code = 143 MEQ/L 984-791 4904) POTASSIUM (test code 4.1 MEQ/L 3.5-5.4 = 2227) CHLORIDE (test code 103 MEQ/L 95-107 = 221) CARBON DIOXIDE (test 26 MEQ/L -31 code = 2206) CALCIUM (test code = [...] PHOSPHATASE 110 U/L 40-125 (test code = 2203) AST (test code = 16 U/L 50 2217) ALT (test code = 14 U/L 50 2218) LIPID [id number] 06:52:03 Test Item Value Reference Range Interpretation [...] MOREINFORMATION , SEE CLIENT ANNOUNCE MENT AT [email or web address] RISK RATIO LDL/HDL 0.68 RATIO <3.55 (test code = 8) HEMOGLOBIN [id number] 04:00:23 Test Item Value Reference Range Interpretation Comments HEMOGLOBIN A1c (test code = 93855) 5.6 % 4.2-5.6 CBC W/AUTO DIFF WITH [id number] 02:24:38 Test Item Value Reference Range Interpretation [...] RBCS 0.00 K/UL 0.00-0.11 (test code = 45208) TSH, THIRD [id number] 00:00:00 Test Item Value Reference Range Interpretation Comments TSH, THIRD GENERATION (test code 0.921 UIU/ML = 2821) HEMOGLOBIN [id number] 00:00:00 Test Item Value Reference Range Interpretation Comments HEMOGLOBIN A1c (test code = 35000) 5.6 % HEMOGLOBIN [id number] 00:00:00 Test Item Value Reference Range Interpretation Comments HEMOGLOBIN A1c (test code = 43782) 5.6 % HEMOGLOBIN [id number] 00:00:00 Test Item Value Reference Range Interpretation Comments HEMOGLOBIN A1c (test code = 18712) 5.6 % COMPREHENSIVE METABOLIC [id number] 00:00:00 Test Item Value Reference Range Interpretation Comments GLUCOSE (test code = 2217) 99 MG/DL BUN (test code = 2208) 19 MG/DL CREATININE (test code = 2214) 0.80 MG/DL eGFR (2020 CKD-EPI) (test code 89 ML/MIN/1.73 = 52160) CALC BUN/CREAT (test code = 24 RATIO [...] code = 2219) 14 U/L COMPREHENSIVE METABOLIC [id number] 00:00:00 Test Item Value Reference Range Interpretation Comments GLUCOSE (test code = 2217) 99 MG/DL BUN (test code = 2208) 19 MG/DL CREATININE (test code = 2214) 0.80 MG/DL eGFR (2020 CKD-EPI) (test code 89 ML/MIN/1.73 = 95201) CALC BUN/CREAT (test code = 24 RATIO 2235) SODIUM (test code = 2231) 143 MEQ/L POTASSIUM (test code = 2228) 4.1 MEQ/L CHLORIDE (test code = 2215) 103 MEQ/L CARBON DIOXIDE (test code = 26 MEQ/L 2205) CALCIUM (test code = 2209) 9.3 MG/DL PROTEIN, TOTAL (test code = 6.7 G/DL 2229) ALBUMIN (test code = 2201) 4.3 G/DL CALC GLOBULIN (test code = 2.4 G/DL 2240) CALC A/G RATIO (test code = 1.8 RATIO 2234) BILIRUBIN, TOTAL (test code = 0.6 MG/DL 2206) ALKALINE PHOSPHATASE (test 110 U/L code = 2204) AST (test code = 2218) 16 U/L ALT (test code = 2219) 14 U/L CBC W/AUTO [id number] 00:00:00 Test Item Value Reference Range Interpretation [...] NUCLEATED RBCS (test code = 0.00 K/UL 63771) CBC W/AUTO [id number] 00:00:00 Test Item Value Reference Range Interpretation [...] NUCLEATED RBCS (test code = 0.00 K/UL 78978) CBC W/AUTO [id number] 00:00:00 Test Item Value Reference Range Interpretation [...] NUCLEATED RBCS (test code = 0.00 K/UL 22386) LIPID [id number] 00:00:00 Test Item Value Reference Range Interpretation Comments CHOLESTEROL (test code = 2210) 120 MG/DL TRIGLYCERIDES (test code = 2232) 67 MG/DL HDL CHOLESTEROL (test code = 2220) 63 MG/DL CALC LDL CHOL (test code = 2237) 43 MG/DL RISK RATIO LDL/HDL (test code = 0.68 RATIO 2238) LIPID [id number] 00:00:00 Test Item Value Reference Range Interpretation Comments CHOLESTEROL (test code = 2210) 120 MG/DL TRIGLYCERIDES (test code = 2232) 67 MG/DL HDL CHOLESTEROL (test code = 2220) 63 MG/DL CALC LDL CHOL (test code = 2237) 43 MG/DL RISK RATIO LDL/HDL (test code = 0.68 RATIO 2238) TSH, THIRD [id number] 00:00:00 Test Item Value Reference Range Interpretation Comments TSH, THIRD GENERATION (test code 0.921 UIU/ML = 2821) TSH, THIRD [id number] 00:00:00 Test Item Value Reference Range Interpretation Comments TSH, THIRD GENERATION (test code 0.921 UIU/ML = 2821) TSH, THIRD [id number] 00:00:00 Test Item Value Reference Range Interpretation Comments TSH, THIRD GENERATION (test code 0.921 UIU/ML = 2821) HEMOGLOBIN [id number] 00:00:00 Test Item Value Reference Range Interpretation Comments HEMOGLOBIN A1c (test code = 28719) 5.6 % HEMOGLOBIN [id number] 00:00:00 Test Item Value Reference Range Interpretation Comments HEMOGLOBIN A1c (test code = 70541) 5.6 % HEMOGLOBIN [id number] 00:00:00 Test Item Value Reference Range Interpretation Comments HEMOGLOBIN A1c (test code = 60406) 5.6 % COMPREHENSIVE METABOLIC [id number] 00:00:00 Test Item Value Reference Range Interpretation Comments GLUCOSE (test code = 2217) 99 MG/DL BUN (test code = 2208) 19 MG/DL CREATININE (test code = 2214) 0.80 MG/DL eGFR (2020 CKD-EPI) (test code 89 ML/MIN/1.73 = 66048) CALC BUN/CREAT (test code = 24 RATIO 2235) SODIUM (test code = 2231) 143 MEQ/L POTASSIUM (test code = 2228) 4.1 MEQ/L CHLORIDE (test code = 2215) 103 MEQ/L CARBON DIOXIDE (test code = 26 MEQ/L 220) CALCIUM (test code = 2209) 9.3 MG/DL [...] code = 2219) 14 U/L COMPREHENSIVE METABOLIC [id number] 00:00:00 Test Item Value Reference Range Interpretation Comments GLUCOSE (test code = 2217) 99 MG/DL BUN (test code = 2208) 19 MG/DL CREATININE (test code = 2214) 0.80 MG/DL eGFR (2020 CKD-EPI) (test code 89 ML/MIN/1.73 = 27649) CALC BUN/CREAT (test code = 24 RATIO [...] code = 2219) 14 U/L CBC W/AUTO [id number] 00:00:00 Test Item Value Reference Range Interpretation [...] NUCLEATED RBCS (test code = 0.00 K/UL 43174) CBC W/AUTO [id number] 00:00:00 Test Item Value Reference Range Interpretation [...] NUCLEATED RBCS (test code = 0.00 K/UL 56367) CBC W/AUTO [id number] 00:00:00 Test Item Value Reference Range Interpretation [...] NUCLEATED RBCS (test code = 0.00 K/UL 74976) LIPID [id number] 00:00:00 Test Item Value Reference Range Interpretation Comments CHOLESTEROL (test code = 2210) 120 MG/DL TRIGLYCERIDES (test code = 2232) 67 MG/DL HDL CHOLESTEROL (test code = 2220) 63 MG/DL CALC LDL CHOL (test code = 2237) 43 MG/DL RISK RATIO LDL/HDL (test code = 0.68 RATIO 2238) LIPID [id number] 00:00:00 Test Item Value Reference Range Interpretation Comments CHOLESTEROL (test code = 2210) 120 MG/DL TRIGLYCERIDES (test code = 2232) 67 MG/DL HDL CHOLESTEROL (test code = 2220) 63 MG/DL CALC LDL CHOL (test code = 2237) 43 MG/DL RISK RATIO LDL/HDL (test code = 0.68 RATIO 2238) TSH, THIRD [id number] 00:00:00 Test Item Value Reference Range Interpretation Comments TSH, THIRD GENERATION (test code 0.921 UIU/ML = 2821) TSH, THIRD [id number] 00:00:00 Test Item Value Reference Range Interpretation Comments TSH, THIRD GENERATION (test code 0.921 UIU/ML = 2821) Troponin T (In-House)2021-05-26 09:07:11 Test Item Value Reference Range Interpretation Comments Troponin T (test code = 79 ng/L See_Comment A < 19 ng/L Suggest 28841-3) retest at 3 to 6 hours later [...] res ults. [Automated mess age] The system [employer] generated this result transmitted ref erence range: <=18. Th e reference range was not used to int erpret this result as normal/abnormal . Lab Interpretation Abnormal (test code = 14343-1) [facility] [place]21[facility]26 09:07:11 Test Item Value Reference Range Interpretation Comments Troponin T (test code = 79 ng/L See_Comment A < 19 ng/L Suggest 43584-5) retest at 3 to 6 hours later [...] res ults. [Automated mess age] The system [employer] generated this result transmitted ref erence range: <=18. Th e reference range was not used to int erpret this result as normal/abnormal . Lab Interpretation Abnormal (test code = 21954-7) [facility]21[facility] 09:07:11 Test Item Value Reference Range Interpretation Comments Troponin T (test code = 79 ng/L See_Comment A < 19 ng/L Suggest 68567-1) retest at 3 to 6 hours later [...] res ults. [Automated mess age] The system [employer] generated this result transmitted ref erence range: <=18. Th e reference range was not used to int erpret this result as normal/abnormal . Lab Interpretation Abnormal (test code = 68368-9) [facility]2021-05-26 09:07:11 Test Item Value Reference Range Interpretation Comments Troponin T (test code = 79 ng/L See_Comment A < 19 ng/L Suggest 68330-4) retest at 3 to 6 hours later [...] res ults. [Automated mess age] The system [employer] generated this result transmitted ref erence range: <=18. Th e reference range was not used to int erpret this result as normal/abnormal . Lab Interpretation Abnormal (test code = 83884-3) [facility]2021-05-26 09:07:11 Test Item Value Reference Range Interpretation Comments Troponin T (test code = 79 ng/L See_Comment A < 19 ng/L Suggest 37898-0) retest at 3 to 6 hours later [...] res ults. [Automated mess age] The system [employer] generated this result transmitted ref erence range: <=18. Th e reference range was not used to int erpret this result as normal/abnormal . Lab Interpretation Abnormal (test code = 37635-9) [facility]2021-05-26 09:07:11 Test Item Value Reference Range Interpretation Comments Troponin T (test code = 79 ng/L See_Comment A < 19 ng/L Suggest 45013-3) retest at 3 to 6 hours later [...] res ults. [Automated mess age] The system [employer] generated this result transmitted ref erence range: <=18. Th e reference range was not used to int erpret this result as normal/abnormal . Lab Interpretation Abnormal (test code = 40353-7) [facility]2021-05-26 09:07:11 Test Item Value Reference Range Interpretation Comments Troponin T (test code = 79 ng/L See_Comment A < 19 ng/L Suggest 89531-5) retest at 3 to 6 hours later [...] res ults. [Automated mess age] The system [employer] generated this result transmitted ref erence range: <=18. Th e reference range was not used to int erpret this result as normal/abnormal . Lab Interpretation Abnormal (test code = 29519-8) [facility] HospitalTestosterone [id number] 11:02:26 Test Item Value Reference Range Interpretation Comments Testoster Tot (test 313 ng/dL 193-740 Referenc e Ranges: code = 2986-8) Male: Age 20 - 49 249 - 836 Age >=50 193 - 740 Female: Age 20 - 49 8 - 48 Age & gt;=50 3 - 41 [facility]Test[facility] [id number] 11:02:26 Test Item Value Reference Range Interpretation Comments Testoster Tot (test 313 ng/dL 193-740 Referenc e Ranges: code = 2986-8) Male: Age 20 - 49 249 - 836 Age >=50 193 - 740 Female: Age 20 - 49 8 - 48 Age & gt;=50 3 - 41 [facility]Testosterone [id number] 11:02:26 Test Item Value Reference Range Interpretation Comments Testoster Tot (test 313 ng/dL 193-740 Referenc e Ranges: code = 2986-8) Male: Age 20 - 49 249 - 836 Age >=50 193 - 740 Female: Age 20 - 49 8 - 48 Age & gt;=50 3 - 41 [facility] HospitalTestosterone [id number] 11:02:26 Test Item Value Reference Range Interpretation Comments Testoster Tot (test 313 ng/dL 193-740 Referenc e Ranges: code = 2986-8) Male: Age 20 - 49 249 - 836 Age >=50 193 - 740 Female: Age 20 - 49 8 - 48 Age & gt;=50 3 - 41 [facility] HospitalTestosterone [id number] 11:02:26 Test Item Value Reference Range Interpretation Comments Testoster Tot (test 313 ng/dL 193-740 Referenc e Ranges: code = 2986-8) Male: Age 20 - 49 249 - 836 Age >=50 193 - 740 Female: Age 20 - 49 8 - 48 Age & gt;=50 3 - 41 [facility] HospitalTestosterone [id number] 11:02:26 Test Item Value Reference Range Interpretation Comments Testoster Tot (test 313 ng/dL 193-740 Referenc e Ranges: code = 2986-8) Male: Age 20 - 49 249 - 836 Age >=50 193 - 740 Female: Age 20 - 49 8 - 48 Age & gt;=50 3 - [facility] HospitalTestosterone [id number] 11:02:26 Test Item Value Reference Range Interpretation Comments Testoster Tot (test 313 ng/dL 193-740 Referenc e Ranges: code = 2986-8) Male: Age 20 - 49 249 - 836 Age >=50 193 - 740 Female: Age 20 - 49 8 - 48 Age & gt;=50 3 - [facility] HospitalProstate Specific Antigen (PSA) [id number] 11:02:24 Test Item Value Reference Range Interpretation [...] PSA Indication (test Diagnostic code = 9395) [facility] HospitalProstate Specific Antigen (PSA) [id number] 11:02:24 Test Item Value Reference Range Interpretation [...] PSA Indication (test Diagnostic code = 9395) [facility] HospitalProstate [facility] Antigen (PSA) [id number] 11:02:24 Test Item Value Reference Range Interpretation Comments PSA (test code = 0.2 ng/mL 0.0-4.0 Results gre ater than 2857-1) 4519 ng/mL may not be reliable due to matrix effect with ext ended dilution as it exceeds the manufacture r's recommended simon it. Caution should be exercised when interpreting mcgraw [facility] values and done in [facility] clinical contex t. PSA Indication (test Diagnostic code = 9395) [facility] HospitalProstate Specific Antigen (PSA) [id number] 11:02:24 Test Item Value Reference Range Interpretation Comments PSA (test code = 0.2 ng/mL 0.0-4.0 Results gre ater than 2857-1) 4519 ng/mL may not be reliable due to matrix effect with ext ended dilution as it exceeds the manufacture r's recommended simon it. Caution should be exercised when interpreting mcgraw ch values and done in [facility] clinical contex t. PSA Indication (test Diagnostic code = 9395) [facility] Specific Antigen (PSA) [id number] 11:02:24 Test Item Value Reference Range Interpretation Comments PSA (test code = 0.2 ng/mL 0.0-4.0 Results gre ater than 2857-1) 4519 ng/mL may not be reliable due to matrix effect with ext ended dilution as it exceeds the manufacture r's recommended simon it. Caution should be exercised when interpreting mcgraw ch values [facility] Indication (test Diagnostic code = 9395) [facility] HospitalPro[facility] Antigen (PSA) [id number] 11:02:24 Test Item Value Reference Range Interpretation Comments PSA (test code = 0.2 ng/mL 0.0-4.0 Results gre ater than 2857-1) 4519 ng/mL may not be reliable due to matrix effect with ext ended dilution as it exceeds the manufacture r's recommended simon it. Caution should be exercised when interpreting mcgraw ch values and done in [facility] clinical contex t. PSA Indication (test Diagnostic code = 9395) [facility] [place]state Specific Antigen (PSA) Zmvqjedmiz4872-74-51 11:02:24 Test Item Value Reference Range Interpretation Comments PSA (test code = 0.2 ng/mL 0.0-4.0 Results gre ater than 2857-1) 4519 ng/mL may not be reliable due to matrix effect with ext ended dilution as it exceeds the manufacture r's recommended simon it. Caution should be exercised when interpreting mcgraw ch values and done in [facility] clinical contex t. PSA Indication (test Diagnostic code = 9395) [facility]03 Test Item Value Reference Range Interpretation Comments ABORh. (test code = 882-1) O POS [facility] 19:56:03 Test Item Value Reference Range Interpretation Comments ABORh. (test code = 882-1) O POS [facility] 19:56:03 Test Item Value Reference Range Interpretation Comments ABORh. (test code = 882-1) O POS [facility] 19:56:03 Test Item Value Reference Range Interpretation Comments ABORh. (test code = 882-1) O POS [facility] 19:56:03 Test Item Value Reference Range Interpretation Comments ABORh. (test code = 882-1) O POS [facility] 19:56:03 Test Item Value Reference Range Interpretation Comments ABORh. (test code = 882-1) O POS [facility] 19:56:03 Test Item Value Reference Range Interpretation Comments ABORh. (test code = 882-1) O POS [facility] HospitalCl[facility] Expiration [id number] 19:55:59 Test Item Value Reference Range Interpretation Comments T & S Expiration (test code = 05/27/2021 53) [facility] Yyvw7458-67-02 19:55:59 Test Item Value Reference Range Interpretation Comments T & S Expiration (test code = 05/27/20215317) [facility] Fptq0164-73-11 19:55:59 Test Item Value Reference Range Interpretation Comments T & S Expiration (test code = 05/27/20215317) [facility] Htea6692-84-31 19:55:59 Test Item Value Reference Range Interpretation Comments T & S Expiration (test code = 05/27/2021 53) [facility] Ywob9258-02-15 19:55:59 Test Item Value Reference Range Interpretation Comments T & S Expiration (test code = 05/27/20215317) [facility] [id number] 19:55:59 Test Item Value Reference Range Interpretation Comments T & S Expiration (test code = 05/27/20215317) [facility] Swvy9563-51-79 19:55:59 Test Item Value Reference Range Interpretation Comments T & S Expiration (test code = 05/27/20215317) [facility] 18:46:29 Test Item Value Reference Range Interpretation Comments aPTT (test code = 34.8 See_Comment [Automate d message] The 35419-3) system which ge nerated this result transmit esteban reference range : 24.7 - 36.8 second(s). The reference range was not used to interpr et this result as cutae l/abnormal. [facility] 18:46:29 Test Item Value Reference Range Interpretation Comments aPTT (test code = 34.8 See_Comment [Automate d message] The 67048-4) system which ge nerated this result transmit esteban reference range : 24.7 - 36.8 second(s). The reference range was not used to interpr et this result as cuate l/abnormal. [facility] 18:46:29 Test Item Value Reference Range Interpretation Comments aPTT (test code = 34.8 See_Comment [Automate d message] The 41172-7) system which ge nerated this result transmit esteban reference range : 24.7 - 36.8 second(s). The reference range was not used to interpr et this result as cuate l/abnormal. [facility] 18:46:29 Test Item Value Reference Range Interpretation Comments aPTT (test code = 34.8 See_Comment [Automate d message] The 96115-6) system which ge nerated this result transmit esteban reference range : 24.7 - 36.8 second(s). The reference range was not used to interpr et this result as cuate l/abnormal. [facility] 18:46:29 Test Item Value Reference Range Interpretation Comments aPTT (test code = 34.8 See_Comment [Automate d message] The 57045-8) system which ge nerated this result transmit esteban reference range : 24.7 - 36.8 second(s). The reference range was not used to interpr et this result as cuate l/abnormal. [facility] 18:46:29 Test Item Value Reference Range Interpretation Comments aPTT (test code = 34.8 See_Comment [Automate d message] The 13221-5) system which ge nerated this result transmit esteban reference range : 24.7 - 36.8 second(s). The reference range was not used to interpr et this result as cuate l/abnormal. [facility] 18:46:29 Test Item Value Reference Range Interpretation Comments aPTT (test code = 34.8 See_Comment [Automate d message] The 12666-0) system which ge nerated this result transmit esteban reference range : 24.7 - 36.8 second(s). The reference range was not used to interpr et this result as cuate l/abnormal. [facility] HospitalProthrombin [id number] 18:46:28 Test Item Value Reference Range Interpretation Comments PT (test code = 5902-2) 15.5 See_Comment H [Au tomated message] The system [employer] generated this result transmitted ref erence range: 11.5 - 1 3.9 second(s). The reference range was not used to int erpret this result as normal/abnormal . INR (test code = 6301-6) 1.31 0.90-1.10 H Lab Interpretation (test Abnormal code = 10466-2) [facility] HospitalProthrombin Ckwx1898-60-64 18:46:28 Test Item Value Reference Range Interpretation Comments PT (test code = 5902-2) 15.5 See_Comment H [Au tomated message] The system [employer] generated this result transmitted ref erence range: 11.5 - 1 3.9 second(s). The reference range was not used to int erpret this result as normal/abnormal . INR (test code = 6301-6) 1.31 0.90-1.10 H Lab Interpretation (test Abnormal code = 22981-9) [facility] HospitalProthrom[facility] [id number] 18:46:28 Test Item Value Reference Range Interpretation Comments PT (test code = 5902-2) 15.5 See_Comment H [Au tomated message] The system [employer] generated this result transmitted ref erence range: 11.5 - 1 3.9 second(s). The reference range was not used to int erpret this result as normal/abnormal . INR (test code = 6301-6) 1.31 0.90-1.10 H Lab Interpretation (test Abnormal code = 66574-5) [facility] HospitalProthrom[facility] Rems9313-92-36 18:46:28 Test Item Value Reference Range Interpretation Comments PT (test code = 5902-2) 15.5 See_Comment H [Au tomated message] The system [employer] generated this result transmitted ref erence range: 11.5 - 1 3.9 second(s). The reference range was not used to int erpret this result as normal/abnormal . INR (test code = 6301-6) 1.31 0.90-1.10 H Lab Interpretation (test Abnormal code = 26735-0) [facility] HospitalPro[facility] Mnvm9756-58-08 18:46:28 Test Item Value Reference Range Interpretation Comments PT (test code = 5902-2) 15.5 See_Comment H [Au tomated message] The system [employer] generated this result transmitted ref erence range: 11.5 - 1 3.9 second(s). The reference range was not used to int erpret this result as normal/abnormal . INR (test code = 6301-6) 1.31 0.90-1.10 H Lab Interpretation (test Abnormal code = 53755-8) [facility] HospitalPro[facility] Alis8627-90-44 18:46:28 Test Item Value Reference Range Interpretation Comments PT (test code = 5902-2) 15.5 See_Comment H [Au tomated message] The system [employer] generated this result transmitted ref erence range: 11.5 - 1 3.9 second(s). The reference range was not used to int erpret this result as normal/abnormal . INR (test code = 6301-6) 1.31 0.90-1.10 H Lab Interpretation (test Abnormal code = 71150-2) [facility] HospitalPro[facility] [id number] 18:46:28 Test Item Value Reference Range Interpretation Comments PT (test code = 5902-2) 15.5 See_Comment H [Au tomated message] The system [employer] generated this result transmitted ref erence range: 11.5 - 1 3.9 second(s). The reference range was not used to int erpret this result as normal/abnormal . INR (test code = 6301-6) 1.31 0.90-1.10 H Lab Interpretation (test Abnormal code = 52266-9) [facility] [...] with BEVERLEY) Platelets lower than 100 k/mm3 [facility] Fraction 2021-05-24 18:31:05 Test Item Value [...] with BEVERLEY) Platelets lower than 100 k/mm3 [facility] [id number] 18:31:04 Test Item Value Reference Range Interpretation Comments Retic Cnt Auto (test code 1.7 % 0.5-1.5 H = 08432-9) RETHE (test code = 33.7 pg 23.2-37.5 66207-5) IRF (test code = 32223-4) 12.0 % 2.3-18.0 BEVERLEY (test code = BEVERLEY) For patients with Platelets lower than 100 k/mm3 Lab Interpretation (test Abnormal code = 33028-1) [facility] Sjvx4160-36-57 18:31:04 Test Item Value Reference Range Interpretation Comments Retic Cnt Auto (test code 1.7 % 0.5-1.5 H = 84169-0) RETHE (test code = 33.7 pg 23.2-37.5 41170-4) IRF (test code = 76450-7) 12.0 % 2.3-18.0 BEVERLEY (test code = BEVERLEY) For patients with Platelets lower than 100 k/mm3 Lab Interpretation (test Abnormal code = 35032-0) [facility] [id number] 18:31:04 Test Item Value Reference Range Interpretation Comments Retic Cnt Auto (test code 1.7 % 0.5-1.5 H = 94263-6) RETHE (test code = 33.7 pg 23.2-37.5 43281-0) IRF (test code = 26126-9) 12.0 % 2.3-18.0 BEVERLEY (test code = BEVERLEY) For patients with Platelets lower than 100 k/mm3 Lab Interpretation (test Abnormal code = 06562-5) [facility] Vowj0789-14-42 18:31:04 Test Item Value Reference Range Interpretation Comments Retic Cnt Auto (test code 1.7 % 0.5-1.5 H = 07299-0) RETHE (test code = 33.7 pg 23.2-37.5 92209-9) IRF (test code = 31337-0) 12.0 % 2.3-18.0 BEVERLEY (test code = BEVERLEY) For patients with Platelets lower than 100 k/mm3 Lab Interpretation (test Abnormal code = 65007-7) [facility] [id number] 18:31:04 Test Item Value Reference Range Interpretation Comments Retic Cnt Auto (test code 1.7 % 0.5-1.5 H = 12246-6) RETHE (test code = 33.7 pg 23.2-37.5 23686-1) IRF (test code = 67792-7) 12.0 % 2.3-18.0 BEVERLEY (test code = BEVERLEY) For patients with Platelets lower than 100 k/mm3 Lab Interpretation (test Abnormal code = 61933-1) [facility] Mtcz0220-65-37 18:31:04 Test Item Value Reference Range Interpretation Comments Retic Cnt Auto (test code 1.7 % 0.5-1.5 H = 99325-5) RETHE (test code = 33.7 pg 23.2-37.5 17588-6) IRF (test code = 29816-8) 12.0 % 2.3-18.0 BEVERLEY (test code = BEVERLEY) For patients with Platelets lower than 100 k/mm3 Lab Interpretation (test Abnormal code = 18797-6) [facility] Cvqm2698-18-24 18:31:04 Test Item Value Reference Range Interpretation Comments Retic Cnt Auto (test code 1.7 % 0.5-1.5 H = 46721-9) RETHE (test code = 33.7 pg 23.2-37.5 89470-2) IRF (test code = 97178-6) 12.0 % 2.3-18.0 BEVERLEY (test code = BEVERLEY) For patients with Platelets lower than 100 k/mm3 Lab Interpretation (test Abnormal code = 90223-1) [facility] HospitalElectrolyte Vgmrf6058-83-64 10:22:54 Test Item Value Reference Range Interpretation [...] = 13 See_Comment [Aut omated message] The 50914-4) system which ge nerated this result tra nsmitted reference range : 4 - 14 mEq/L. The refe rence range was not u sed to interpret this result as normal/abnormal . [facility] HospitalElectrolyte Payat8793-08-13 10:22:54 Test Item Value Reference Range Interpretation [...] to interpret this result as normal/abnormal . [facility] HospitalElectrolyte Omzrd2166-16-21 10:22:54 Test Item Value Reference Range Interpretation [...] to interpret this result as normal/abnormal . [facility]Electro[facility] Vyteg3360-58-54 10:22:54 Test Item Value Reference Range Interpretation [...] to interpret this result as normal/abnormal . [facility] HospitalElectro[facility] Hgmbr3666-37-90 10:22:54 Test Item Value Reference Range Interpretation [...] to interpret this result as normal/abnormal . [facility]Electro[facility]te Pbzlv0342-76-92 10:22:54 Test Item Value Reference Range Interpretation [...] to interpret this result as normal/abnormal . [facility] HospitalElectro[facility]te Xmbsi5300-39-16 10:22:54 Test Item Value Reference Range Interpretation [...] to interpret this result as normal/abnormal . [facility] HospitalPhosphorus Tcolz5384-76-64 10:22:52 Test Item Value Reference Range Interpretation Comments Phosphorus (test code = 2777-1) 4.3 mg/dL 2.5-4.5 [facility]Ph[facility] Wdvsd5308-50-94 10:22:52 Test Item Value Reference Range Interpretation Comments Phosphorus (test code = 2777-1) 4.3 mg/dL 2.5-4.5 [facility]Ph[facility] Lrqtp8695-05-96 10:22:52 Test Item Value Reference Range Interpretation Comments Phosphorus (test code = 2777-1) 4.3 mg/dL 2.5-4.5 [facility]Ph[facility] Hwqiw5771-22-05 10:22:52 Test Item Value Reference Range Interpretation Comments Phosphorus (test code = 2777-1) 4.3 mg/dL 2.5-4.5 [facility]Ph[facility] Rlymg3156-66-69 10:22:52 Test Item Value Reference Range Interpretation Comments Phosphorus (test code = 2777-1) 4.3 mg/dL 2.5-4.5 [facility]Ph[facility] Dzufg0822-34-39 10:22:52 Test Item Value Reference Range Interpretation Comments Phosphorus (test code = 2777-1) 4.3 mg/dL 2.5-4.5 [facility] HospitalPh[facility] Lvuou1401-14-60 10:22:52 Test Item Value Reference Range Interpretation Comments Phosphorus (test code = 2777-1) 4.3 mg/dL 2.5-4.5 [facility] HospitalCalcium Brfnv5528-78-05 10:22:51 Test Item Value Reference Range Interpretation Comments Calcium Lvl (test code = 08356-4) 8.9 mg/dL 8.4-10.2 [facility]Cal[facility] Oeywk1987-10-40 10:22:51 Test Item Value Reference Range Interpretation Comments Calcium Lvl (test code = 63724-5) 8.9 mg/dL 8.4-10.2 [facility] HospitalCal[facility] Bcohx1694-92-53 10:22:51 Test Item Value Reference Range Interpretation Comments Calcium Lvl (test code = 98668-8) 8.9 mg/dL 8.4-10.2 [facility] HospitalCal[facility] [id number] 10:22:51 Test Item Value Reference Range Interpretation Comments Calcium Lvl (test code = 88914-4) 8.9 mg/dL 8.4-10.2 [facility] HospitalCal[facility] Xjonf2681-83-66 10:22:51 Test Item Value Reference Range Interpretation Comments Calcium Lvl (test code = 16739-8) 8.9 mg/dL 8.4-10.2 [facility] HospitalCal[facility] Hqqni7592-95-63 10:22:51 Test Item Value Reference Range Interpretation Comments Calcium Lvl (test code = 11000-7) 8.9 mg/dL 8.4-10.2 [facility]Cal[facility] Djnno5736-87-03 10:22:51 Test Item Value Reference Range Interpretation Comments Calcium Lvl (test code = 40120-0) 8.9 mg/dL 8.4-10.2 [facility] HospitalGlomerular Filtration Rate 2021-05-24 10:22:50 Test Item Value Reference Range Interpretation Comments eGFR-AA (test code 84 See_Comment Normal eG FR: >= 60 = 90357-9) mL/min/1.73 m2N ote: The eGFR is calculated [...] See_Comment Normal e GFR: >= 60 = 40666-6) mL/min/1.73 m2N ote: The eGFR is calculated [...] interpret th is result as normal/abnormal . [facility] HospitalGlomerular Filtration Rate 2021-05-24 10:22:50 Test Item Value Reference Range Interpretation Comments eGFR-AA (test code 84 See_Comment Normal eG FR: >= 60 = 93990-5) mL/min/1.73 m2N ote: The eGFR is calculated [...] See_Comment Normal e GFR: >= 60 = 21300-2) mL/min/1.73 m2N ote: The eGFR is calculated [...] interpret th is result as normal/abnormal . [facility] HospitalGlomerular Filtration Rate 2021-05-24 10:22:50 Test Item Value Reference Range Interpretation Comments eGFR-AA (test code 84 See_Comment Normal eG FR: >= 60 = 53241-9) mL/min/1.73 m2N ote: The eGFR is calculated [...] See_Comment Normal e GFR: >= 60 = 40948-1) mL/min/1.73 m2N ote: The eGFR is calculated [...] interpret th is result as normal/abnormal . [facility] HospitalGlomerular Filtration Rate 2021-05-24 10:22:50 Test Item Value Reference Range Interpretation Comments eGFR-AA (test code 84 See_Comment Normal eG FR: >= 60 = 54914-3) mL/min/1.73 m2N ote: The eGFR is calculated [...] See_Comment Normal e GFR: >= 60 = 80248-6) mL/min/1.73 m2N ote: The eGFR is calculated [...] Kidney failure <15 [A utomated message] The [employer] which generated this result transmitted ref erence range: >=60 mL/min/1.7 3 sq. m. The reference range was not used to interpret is result as normal/abnormal . [facility] HospitalGlomerular Filtration Rate 2021-05-24 10:22:50 Test Item Value Reference Range Interpretation Comments eGFR-AA (test code 84 See_Comment Normal eG FR: >= 60 = 12757-0) mL/min/1.73 m2N ote: The eGFR is calculated [...] Kidney failure <15 [Au tomated message] The [employer] which generated this result transmitted ref erence range: >=60 mL/min/1.7 3 sq. m. The reference range was not used to interpret th is result as normal/abnormal . eGFR-DARIEN (test code 73 See_Comment Normal e GFR: >= 60 = 07302-7) mL/min/1.73 m2N ote: The eGFR is calculated [...] interpret th is result as normal/abnormal . [facility] [place] 2021-05-24 10:22:50 Test Item Value Reference Range Interpretation Comments eGFR-AA (test code 84 See_Comment Normal eG FR: >= 60 = 68191-1) mL/min/1.73 m2N ote: The eGFR is calculated [...] See_Comment Normal e GFR: >= 60 = 26473-1) mL/min/1.73 m2N ote: The eGFR is calculated [...] interpret th is result as normal/abnormal . [facility] HospitalGlomer[facility] Filtration Rate 2021-05-24 10:22:50 Test Item Value Reference Range Interpretation Comments eGFR-AA (test code 84 See_Comment Normal eG FR: >= 60 = 02115-5) mL/min/1.73 m2N ote: The eGFR is calculated [...] See_Comment Normal e GFR: >= 60 = 58680-3) mL/min/1.73 m2N ote: The eGFR is calculated [...] interpret th is result as normal/abnormal . [facility] HospitalMagnesium Aemdd1355-16-20 10:22:48 Test Item Value Reference Range Interpretation Comments Magnesium (test code = 16749-9) 2.1 mg/dL 1.6-2.6 [facility] HospitalMagn[facility] Puyqy5340-71-95 10:22:48 Test Item Value Reference Range Interpretation Comments Magnesium (test code = 02168-7) 2.1 mg/dL 1.6-2.6 [facility] HospitalMagn[facility] Bdkco0944-92-70 10:22:48 Test Item Value Reference Range Interpretation Comments Magnesium (test code = 30811-1) 2.1 mg/dL 1.6-2.6 [facility] HospitalMagn[facility] Sphfz5281-94-39 10:22:48 Test Item Value Reference Range Interpretation Comments Magnesium (test code = 62741-7) 2.1 mg/dL 1.6-2.6 [facility] HospitalMagnesium Welni5774-68-57 10:22:48 Test Item Value Reference Range Interpretation Comments Magnesium (test code = 75479-1) 2.1 mg/dL 1.6-2.6 [facility] HospitalMagn[facility] Sncly0388-63-81 10:22:48 Test Item Value Reference Range Interpretation Comments Magnesium (test code = 25538-7) 2.1 mg/dL 1.6-2.6 [facility] HospitalMagn[facility] Sahvt5154-08-30 10:22:48 Test Item Value Reference Range Interpretation Comments Magnesium (test code = 73608-1) 2.1 mg/dL 1.6-2.6 [facility] HospitalGlucose Jnoxi2222-75-28 10:22:47 Test Item Value Reference Range Interpretation [...] diabetes Lab Interpretation (test Abnormal code = 60164-3) [facility] HospitalGlucose Aujkp9310-33-20 10:22:47 Test Item Value Reference Range Interpretation [...] diabetes Lab Interpretation (test Abnormal code = 51745-9) [facility] HospitalGl[facility] Mmnis3973-20-47 10:22:47 Test Item Value Reference Range Interpretation [...] diabetes Lab Interpretation (test Abnormal code = 06476-4) [facility] HospitalGlucose Efmii2937-30-90 10:22:47 Test Item Value Reference Range Interpretation [...] diabetes Lab Interpretation (test Abnormal code = 88123-3) [facility] HospitalGl[facility] Arqws0050-27-58 10:22:47 Test Item Value Reference Range Interpretation [...] diabetes Lab Interpretation (test Abnormal code = 40208-7) [facility] HospitalGlucose Ssbcb7926-76-19 10:22:47 Test Item Value Reference Range Interpretation [...] diabetes Lab Interpretation (test Abnormal code = 76471-3) [facility] HospitalGl[facility] Fipmj7761-97-16 10:22:47 Test Item Value Reference Range Interpretation [...] diabetes Lab Interpretation (test Abnormal code = 47376-0) [facility].Serum Rktkiefvcy6574-79-00 10:22:46 Test Item Value Reference Range Interpretation Comments Creatinine (test code = 2160-0) 0.98 mg/dL 0.67-1.17 [facility].Serum Dtqcdazqeq0607-67-08 10:22:46 Test Item Value Reference Range Interpretation Comments Creatinine (test code = 2160-0) 0.98 mg/dL 0.67-1.17 [facility].Serum Byhjrzwmjt7472-51-47 10:22:46 Test Item Value Reference Range Interpretation Comments Creatinine (test code = 2160-0) 0.98 mg/dL 0.67-1.17 [facility].Serum Baresfkfkw5333-41-02 10:22:46 Test Item Value Reference Range Interpretation Comments Creatinine (test code = 2160-0) 0.98 mg/dL 0.67-1.17 [facility].Serum Isjpvtzsws2933-83-80 10:22:46 Test Item Value Reference Range Interpretation Comments Creatinine (test code = 2160-0) 0.98 mg/dL 0.67-1.17 [facility].Serum Unmypgiwey9488-04-48 10:22:46 Test Item Value Reference Range Interpretation Comments Creatinine (test code = 2160-0) 0.98 mg/dL 0.67-1.17 [facility].Serum Gputamtheh7015-91-11 10:22:46 Test Item Value Reference Range Interpretation Comments Creatinine (test code = 2160-0) 0.98 mg/dL 0.67-1.17 [facility] HospitalBUN2022-[facility]-13 10:22:45 Test Item Value Reference Range Interpretation Comments BUN (test code = 3094-0) 23 mg/dL 6- [facility]BUN2022-[facility]-13 10:22:45 Test Item Value Reference Range Interpretation Comments BUN (test code = 3094-0) 23 mg/dL - [facility]BUN2022-[facility]-13 10:22:45 Test Item Value Reference Range Interpretation Comments BUN (test code = 3094-0) 23 mg/dL 6- [facility]BUN2022-[facility]-13 10:22:45 Test Item Value Reference Range Interpretation Comments BUN (test code = 3094-0) 23 mg/dL 6- [facility]BUN2022-[facility]-13 10:22:45 Test Item Value Reference Range Interpretation Comments BUN (test code = 3094-0) 23 mg/dL 6- [facility]BUN2022-[facility]-13 10:22:45 Test Item Value Reference Range Interpretation Comments BUN (test code = 3094-0) 23 mg/dL 6- [facility]BUN2022-[facility]-13 10:22:45 Test Item Value Reference Range Interpretation Comments BUN (test code = 3094-0) 23 mg/dL 6- [facility] HospitalRespiratory Viral Panel + COVID-19, Nasopharyngeal Jrsl7399-62-73 22:18:45 Test Item Value Reference Range Interpretation Comments Adenovirus (test code = Not Detected Not Detected 4742) Coronavirus 229E (test Not Detected Not Detected code = 5349) Coronavirus HKU1 (test Not Detected Not Detected code = 5350) Coronavirus NL63 (test Not Detected Not Detected code = 5351) Coronavirus OC43 (test Not Detected Not Detected code = 5352) COVID19 (SARS-CoV-2) Not Detected Not Detected (test code = 93489-3) Human Metapneumovirus Not Detected Not Detected (test [...] Detected Not Detected Parapertussis (test code = 33259) Bordetella pertussis Not Detected Not Detected (test [...] including SARS-CoV-2, from a single nasopharyngeal swab (CERTIFIED PROFESSIONAL CODER) specimen obtained from individuals suspected of respiratory [...] that may not be detected by an CERTIFIED PROFESSIONAL CODER specimen. Internal controls are used to monitor [...] high-complexity tests. The Microbiology Laboratory at [facility], CLIA Accreditation #[id number] and CAP Accreditation #[id number], verified the performance characteristics of this assay. [facility] performs the assay using the [employer]. The [employer] RP2.1 is a real-time, nested multiplexed polymerase chain reaction test designed to simultaneously identify nucleic acids from 22 different viruses and bacteria associated with respiratory tract infection, including SARS-CoV-2, from a single nasopharyngeal swab (CERTIFIED PROFESSIONAL CODER) specimen obtained from individuals suspected of respiratory [...] that may not be detected by an CERTIFIED PROFESSIONAL CODER specimen. Internal controls are used to monitor [...] high-complexity tests. The [facility], CLIA Accreditation #[id number] and CAP Accreditation #[id number], verified the performance characteristics of this assay. [facility] performs the assay using the [employer]. [facility], Nasopharyngeal [id number] 22:18:45 Test Item Value Reference Range Interpretation Comments Adenovirus (test code = Not Detected Not Detected 4742) Coronavirus 229E (test Not Detected Not Detected code = 5349) Coronavirus HKU1 (test Not Detected Not Detected code = 5350) Coronavirus NL63 (test Not Detected Not Detected code = 5351) Coronavirus OC43 (test Not Detected Not Detected code = 5352) COVID19 (SARS-CoV-2) Not Detected Not Detected (test code = 32705-4) Human Metapneumovirus Not Detected Not Detected (test [...] Detected Not Detected Parapertussis (test code = 40478) Bordetella pertussis Not Detected Not Detected (test [...] including SARS-CoV-2, from a single nasopharyngeal swab (CERTIFIED PROFESSIONAL CODER) specimen obtained from individuals suspected of respiratory [...] that may not be detected by an CERTIFIED PROFESSIONAL CODER specimen. Internal controls are used to monitor [...] high-complexity tests. The [facility], CLIA Accreditation #[id number] and CAP Accreditation #[id number], verified the performance characteristics of this assay. [facility] performs the assay using the [employer] System. The [employer] RP2.1 is a real-time, nested multiplexed polymerase chain reaction test designed to simultaneously identify nucleic acids from 22 different viruses and bacteria associated with respiratory tract infection, including SARS-CoV-2, from a single nasopharyngeal swab (CERTIFIED PROFESSIONAL CODER) specimen obtained from individuals suspected of respiratory [...] that may not be detected by an CERTIFIED PROFESSIONAL CODER specimen. Internal controls are used to monitor [...] high-complexity tests. The [facility], CLIA Accreditation #[id number] and CAP Accreditation #[id number], verified the performance characteristics of this assay. [facility] performs the assay using the [employer]. [facility], Nasopharyngeal [id number] 22:18:45 Test Item Value Reference Range Interpretation Comments Adenovirus (test code = Not Detected Not Detected 4740) Coronavirus 229E (test Not Detected Not Detected code = 5349) Coronavirus HKU1 (test Not Detected Not Detected code = 5350) Coronavirus NL63 (test Not Detected Not Detected code = 5351) Coronavirus OC43 (test Not Detected Not Detected code = 5352) COVID19 (SARS-CoV-2) Not Detected Not Detected (test code = 29669-9) Human Metapneumovirus Not Detected Not Detected (test [...] Detected Not Detected Parapertussis (test code = 44204) Bordetella pertussis Not Detected Not Detected (test [...] including SARS-CoV-2, from a single nasopharyngeal swab (CERTIFIED PROFESSIONAL CODER) specimen obtained from individuals suspected of respiratory [...] that may not be detected by an CERTIFIED PROFESSIONAL CODER specimen. Internal controls are used to monitor [...] high-complexity tests. The [facility], CLIA Accreditation #[id number] and CAP Accreditation #[id number], verified the performance characteristics of this assay. [facility] performs the assay using the [employer] System. The BioFire RP2.1 is a real-time, nested multiplexed polymerase chain reaction test designed to simultaneously identify nucleic acids from 22 different viruses and bacteria associated with respiratory tract infection, including SARS-CoV-2, from a single nasopharyngeal swab (CERTIFIED PROFESSIONAL CODER) specimen obtained from individuals suspected of respiratory [...] that may not be detected by an CERTIFIED PROFESSIONAL CODER specimen. Internal controls are used to monitor [...] high-complexity tests. The [facility], CLIA Accreditation #[id number] and CAP Accreditation #[id number], verified the performance characteristics of this assay. [facility] performs the assay using the [employer]. [facility] COVID-19, Nasopharyngeal [id number] 22:18:45 Test Item Value Reference Range Interpretation [...] Not Detected Not Detected (test code = 71193-9) Human Metapneumovirus Not Detected Not Detected (test [...] Detected Not Detected Parapertussis (test code = 18841) Bordetella pertussis Not Detected Not Detected (test [...] including SARS-CoV-2, from a single nasopharyngeal swab (CERTIFIED PROFESSIONAL CODER) specimen obtained from individuals suspected of respiratory [...] that may not be detected by an CERTIFIED PROFESSIONAL CODER specimen. Internal controls are used to monitor [...] high-complexity tests. The [facility] at [facility], CLIA Accreditation #[id number] and CAP Accreditation #[id number], verified the performance characteristics of this assay. [facility] performs the assay using the [employer] System. The BioFire RP2.1 is a real-time, nested multiplexed polymerase chain reaction test designed to simultaneously identify nucleic acids from 22 different viruses and bacteria associated with respiratory tract infection, including SARS-CoV-2, from a single nasopharyngeal swab (CERTIFIED PROFESSIONAL CODER) specimen obtained from individuals suspected of respiratory [...] that may not be detected by an CERTIFIED PROFESSIONAL CODER specimen. Internal controls are used to monitor [...] high-complexity tests. The [facility], CLIA Accreditation #[id number] and CAP Accreditation #[id number], verified the performance characteristics of this assay. [facility] performs the assay using the [employer]. [facility] COVID-19, Nasopharyngeal [id number] 22:18:45 Test Item Value Reference Range Interpretation [...] Not Detected Not Detected (test code = 27755-0) Human Metapneumovirus Not Detected Not Detected (test [...] Detected Not Detected Parapertussis (test code = 58592) Bordetella pertussis Not Detected Not Detected (test [...] including SARS-CoV-2, from a single nasopharyngeal swab (CERTIFIED PROFESSIONAL CODER) specimen obtained from individuals suspected of respiratory [...] that may not be detected by an CERTIFIED PROFESSIONAL CODER specimen. Internal controls are used to monitor [...] high-complexity tests. The [facility] at [facility], CLIA Accreditation #[id number] and CAP Accreditation #[id number], verified the performance characteristics of this assay. [facility] performs the assay using the [employer] System. The BioFire RP2.1 is a real-time, nested multiplexed polymerase chain reaction test designed to simultaneously identify nucleic acids from 22 different viruses and bacteria associated with respiratory tract infection, including SARS-CoV-2, from a single nasopharyngeal swab (CERTIFIED PROFESSIONAL CODER) specimen obtained from individuals suspected of respiratory [...] that may not be detected by an CERTIFIED PROFESSIONAL CODER specimen. Internal controls are used to monitor [...] high-complexity tests. The [facility] at [facility], CLIA Accreditation #[id number] and CAP Accreditation #[id number], verified the performance characteristics of this assay. [facility] performs the assay using the [employer] System. [facility] COVID-19, Nasopharyngeal [id number] 22:18:45 Test Item Value Reference Range Interpretation [...] Not Detected Not Detected (test code = 04485-3) Human Metapneumovirus Not Detected Not Detected (test [...] Detected Not Detected Parapertussis (test code = 61007) Bordetella pertussis Not Detected Not Detected (test [...] including SARS-CoV-2, from a single nasopharyngeal swab (CERTIFIED PROFESSIONAL CODER) specimen obtained from individuals suspected of respiratory [...] that may not be detected by an CERTIFIED PROFESSIONAL CODER specimen. Internal controls are used to monitor [...] high-complexity tests. The [facility], CLIA Accreditation #[id number] and CAP Accreditation #[id number], verified the performance characteristics of this assay. [facility] performs the assay using the [employer] System. The BioFire RP2.1 is a real-time, nested multiplexed polymerase chain reaction test designed to simultaneously identify nucleic acids from 22 different viruses and bacteria associated with respiratory tract infection, including SARS-CoV-2, from a single nasopharyngeal swab (CERTIFIED PROFESSIONAL CODER) specimen obtained from individuals suspected of respiratory [...] that may not be detected by an CERTIFIED PROFESSIONAL CODER specimen. Internal controls are used to monitor [...] high-complexity tests. The [facility], CLIA Accreditation #[id number] and CAP Accreditation #[id number], verified the performance characteristics of this assay. [facility] performs the assay using the [employer] System. [facility] COVID-19, Nasopharyngeal [id number] 22:18:45 Test Item Value Reference Range Interpretation [...] Not Detected Not Detected (test code = 81669-5) Human Metapneumovirus Not Detected Not Detected (test [...] Detected Not Detected Parapertussis (test code = 03423) Bordetella pertussis Not Detected Not Detected (test [...] including SARS-CoV-2, from a single nasopharyngeal swab (CERTIFIED PROFESSIONAL CODER) specimen obtained from individuals suspected of respiratory [...] that may not be detected by an CERTIFIED PROFESSIONAL CODER specimen. Internal controls are used to monitor [...] high-complexity tests. The [facility], CLIA Accreditation #[id number] and CAP Accreditation #[id number], verified the performance characteristics of this assay. [facility] performs the assay using the [employer] System. The BioFire RP2.1 is a real-time, nested multiplexed polymerase chain reaction test designed to simultaneously identify nucleic acids from 22 different viruses and bacteria associated with respiratory tract infection, including SARS-CoV-2, from a single nasopharyngeal swab (CERTIFIED PROFESSIONAL CODER) specimen obtained from individuals suspected of respiratory [...] that may not be detected by an CERTIFIED PROFESSIONAL CODER specimen. Internal controls are used to monitor [...] high-complexity tests. The [facility], CLIA Accreditation #[id number] and CAP Accreditation #[id number], verified the performance characteristics of this assay. [facility] performs the assay using the [employer] System. [facility] HospitalD-[id number] 20:40:38 Test Item Value Reference Range Interpretation Comments D-Dimer (test code 0.38 See_Comment The cut o ff value for = 07710-2) exclusion of ve nous thromboembolism is <0.51 mcg/mL FEUs (fibrinoge n equivalent units). [Automa esteban message] The system [employer] generated this result tra nsmitted reference range : 0.10 - 0.50 mcg/ml FEU. The reference range was not u sed to interpret this result as normal/abnormal . [facility]-[id number] 20:40:38 Test Item Value Reference Range Interpretation Comments D-Dimer (test code 0.38 See_Comment The cut o ff value for = 25827-0) exclusion of ve nous thromboembolism is <0.51 mcg/mL FEUs (fibrinoge n equivalent units). [[employer]oma esteban message] The system [employer] generated this result tra nsmitted reference range : 0.10 - 0.50 mcg/ml FEU. The reference range was not u sed to interpret this result as normal/abnormal . [facility]-[id number] 20:40:38 Test Item Value Reference Range Interpretation Comments D-Dimer (test code 0.38 See_Comment The cut o ff value for = 03846-5) exclusion of ve nous thromboembolism is <0.51 mcg/mL FEUs (fibrinoge n equivalent units). [[employer]oma esteban message] The system [employer] generated this result tra nsmitted reference range : 0.10 - 0.50 mcg/ml FEU. The reference range was not u sed to interpret this result as normal/abnormal . [facility]-[id number] 20:40:38 Test Item Value Reference Range Interpretation Comments D-Dimer (test code 0.38 See_Comment The cut o ff value for = 52158-8) exclusion of ve nous thromboembolism is <0.51 mcg/mL FEUs (fibrinoge n equivalent units). [[employer] message] The system [employer] generated this result tra nsmitted reference range : 0.10 - 0.50 mcg/ml FEU. The reference range was not u sed to interpret this result as normal/abnormal . [facility]-[id number] 20:40:38 Test Item Value Reference Range Interpretation Comments D-Dimer (test code 0.38 See_Comment The cut o ff value for = 36674-2) exclusion of ve nous thromboembolism is <0.51 mcg/mL FEUs (fibrinoge n equivalent units). [[employer] message] The system [employer] generated this result tra nsmitted reference range : 0.10 - 0.50 mcg/ml FEU. The reference range was not u sed to interpret this result as normal/abnormal . [facility]-[id number] 20:40:38 Test Item Value Reference Range Interpretation Comments D-Dimer (test code 0.38 See_Comment The cut o ff value for = 44766-9) exclusion of ve nous thromboembolism is <0.51 mcg/mL FEUs (fibrinoge n equivalent units). [[employer] message] The system [employer] generated this result tra nsmitted reference range : 0.10 - 0.50 mcg/ml FEU. The reference range was not u sed to interpret this result as normal/abnormal . [facility]-[id number] 20:40:38 Test Item Value Reference Range Interpretation Comments D-Dimer (test code 0.38 See_Comment The cut o ff value for = 57111-9) exclusion of ve nous thromboembolism is <0.51 mcg/mL FEUs (fibrinoge n equivalent units). [[employer] message] The system [employer] generated this result tra nsmitted reference range : 0.10 - 0.50 mcg/ml FEU. The reference range was not u sed to interpret this result as normal/abnormal . [facility] 20:33:25 Test Item Value Reference Range Interpretation Comments NT ProBNP (test code = 538 pg/mL See_Comment H [Aut omated message] 53307-5) The system [employer] generated this result transmit esteban reference range : <=450. The refe rence range was not u sed to interpret th is result as normal/abnormal . Lab Interpretation (test Abnormal code = 34028-2) [facility]21-[facility]-22 20:33:25 Test Item Value Reference Range Interpretation Comments NT ProBNP (test code = 538 pg/mL See_Comment H [Aut omated message] 29720-2) The system [employer] generated this result transmit esteban reference range : <=450. The refe rence range was not u sed to interpret th is result as normal/abnormal . Lab Interpretation (test Abnormal code = 89735-6) [facility]21-[facility]-22 20:33:25 Test Item Value Reference Range Interpretation Comments NT ProBNP (test code = 538 pg/mL See_Comment H [Aut omated message] 81701-6) The system [employer] generated this result transmit esteban reference range : <=450. The refe rence range was not u sed to interpret th is result as normal/abnormal . Lab Interpretation (test Abnormal code = 64684-2) [facility]21-[facility]-22 20:33:25 Test Item Value Reference Range Interpretation Comments NT ProBNP (test code = 538 pg/mL See_Comment H [Aut omated message] 52648-1) The system [employer] generated this result transmit esteban reference range : <=450. The refe rence range was not u sed to interpret th is result as normal/abnormal . Lab Interpretation (test Abnormal code = 59503-1) [facility]21-[facility] 20:33:25 Test Item Value Reference Range Interpretation Comments NT ProBNP (test code = 538 pg/mL See_Comment H [Aut omated message] 67124-5) The system [employer] generated this result transmit esteban reference range : <=450. The refe rence range was not u sed to interpret th is result as normal/abnormal . Lab Interpretation (test Abnormal code = 99684-7) [facility] 20:33:25 Test Item Value Reference Range Interpretation Comments NT ProBNP (test code = 538 pg/mL See_Comment H [Aut omated message] 54438-7) The system [employer] generated this result transmit esteban reference range : <=450. The refe rence range was not u sed to interpret th is result as normal/abnormal . Lab Interpretation (test Abnormal code = 38221-1) [facility] 20:33:25 Test Item Value Reference Range Interpretation Comments NT ProBNP (test code = 538 pg/mL See_Comment H [Aut omated message] 18549-8) The system [employer] generated this result transmit esteban reference range : <=450. The refe rence range was not u sed to interpret th is result as normal/abnormal . Lab Interpretation (test Abnormal code = 83391-1) [facility] [id number] 20:32:34 Test Item Value Reference Range Interpretation Comments CK (test code = 2157-6) 148 U/L 39-308 CK MB (test code = 6.3 ng/mL See_Comment [Automat ed message] 40812-6) The system [employer] generated this result transmitted ref erence range: <=10.4. The reference range was not used to int erpret this result as normal/abnormal . Troponin T (test code = 67 ng/L See_Comment A < 19 ng/L Suggest 59724-6) retest at 3 to 6 hours later [...] res ults. [Automated mess age] The system [employer] generated this result transmitted ref erence range: <=18. Th e reference range was not used to int erpret this result as normal/abnormal . Lab Interpretation Abnormal (test code = 25877-1) [facility] [id number] 20:32:34 Test Item Value Reference Range Interpretation Comments CK (test code = 2157-6) 148 U/L 39-308 CK MB (test code = 6.3 ng/mL See_Comment [Automat ed message] 77439-3) The system [employer] generated this result transmitted ref erence range: <=10.4. The reference range was not used to int erpret this result as normal/abnormal . Troponin T (test code = 67 ng/L See_Comment A < 19 ng/L Suggest 67560-8) retest at 3 to 6 hours later [...] res ults. [Automated mess age] The system [employer] generated this result transmitted ref erence range: <=18. Th e reference range was not used to int erpret this result as normal/abnormal . Lab Interpretation Abnormal (test code = 19385-7) [facility] [id number] 20:32:34 Test Item Value Reference Range Interpretation Comments CK (test code = 2157-6) 148 U/L 39-308 CK MB (test code = 6.3 ng/mL See_Comment [Automat ed message] 35820-3) The system [employer] generated this result transmitted ref erence range: <=10.4. The reference range was not used to int erpret this result as normal/abnormal . Troponin T (test code = 67 ng/L See_Comment A < 19 ng/L Suggest 67018-0) retest at 3 to 6 hours later [...] res ults. [Automated mess age] The system [employer] generated this result transmitted ref erence range: <=18. Th e reference range was not used to int erpret this result as normal/abnormal . Lab Interpretation Abnormal (test code = 37075-2) [facility] [place] [id number] 20:32:34 Test Item Value Reference Range Interpretation Comments CK (test code = 2157-6) 148 U/L 39-308 CK MB (test code = 6.3 ng/mL See_Comment [Automat ed message] 43622-5) The system [employer] generated this result transmitted ref erence range: <=10.4. The reference range was not used to int erpret this result as normal/abnormal . Troponin T (test code = 67 ng/L See_Comment A < 19 ng/L Suggest 06032-1) retest at 3 to 6 hours later [...] res ults. [Automated mess age] The system [employer] generated this result transmitted ref erence range: <=18. Th e reference range was not used to int erpret this result as normal/abnormal . Lab Interpretation Abnormal (test code = 37091-8) [facility] [id number] 20:32:34 Test Item Value Reference Range Interpretation Comments CK (test code = 2157-6) 148 U/L 39-308 CK MB (test code = 6.3 ng/mL See_Comment [Automat ed message] 51374-3) The system [employer] generated this result transmitted ref erence range: <=10.4. The reference range was not used to int erpret this result as normal/abnormal . Troponin T (test code = 67 ng/L See_Comment A < 19 ng/L Suggest 31403-1) retest at 3 to 6 hours later [...] res ults. [Automated mess age] The system [employer] generated this result transmitted ref erence range: <=18. Th e reference range was not used to int erpret this result as normal/abnormal . Lab Interpretation Abnormal (test code = 94080-1) [facility] [id number] 20:32:34 Test Item Value Reference Range Interpretation Comments CK (test code = 2157-6) 148 U/L 39-308 CK MB (test code = 6.3 ng/mL See_Comment [Automat ed message] 29626-7) The system [employer] generated this result transmitted ref erence range: <=10.4. The reference range was not used to int erpret this result as normal/abnormal . Troponin T (test code = 67 ng/L See_Comment A < 19 ng/L Suggest 93121-8) retest at 3 to 6 hours later [...] res ults. [Automated mess age] The system [employer] generated this result transmitted ref erence range: <=18. Th e reference range was not used to int erpret this result as normal/abnormal . Lab Interpretation Abnormal (test code = 38544-1) [facility] [id number] 20:32:34 Test Item Value Reference Range Interpretation Comments CK (test code = 2157-6) 148 U/L 39-308 CK MB (test code = 6.3 ng/mL See_Comment [Automat ed message] 99357-7) The system [employer] generated this result transmitted ref erence range: <=10.4. The reference range was not used to int erpret this result as normal/abnormal . Troponin T (test code = 67 ng/L See_Comment A < 19 ng/L Suggest 76323-6) retest at 3 to 6 hours later [...] res ults. [Automated mess age] The system [employer] generated this result transmitted ref erence range: <=18. Th e reference range was not used to int erpret this result as normal/abnormal . Lab Interpretation Abnormal (test code = 94708-2) [facility] [id number] 20:32:19 Test Item Value Reference Range Interpretation [...] above 28 g/L. [Automated message] The system [employer] generated this result transmitted ref erence range: [...] par ameters are outside rep ortable range [facility]ated Pxvnnbwma6932-47-51 20:32:19 Test Item Value Reference Range Interpretation [...] above 28 g/L. [Automated message] The system [employer] generated this result transmitted ref erence range: [...] par ameters are outside rep ortable range [facility] [place] Jrnjyixzx0347-48-45 20:32:19 Test Item Value Reference Range Interpretation [...] above 28 g/L. [Automated message] The system [employer] generated this result transmitted ref erence range: [...] par ameters are outside rep ortable range [facility] Latoocszv6877-42-31 20:32:19 Test Item Value Reference Range Interpretation [...] above 28 g/L. [Automated message] The system [employer] generated this result transmitted ref erence range: [...] par ameters are outside rep ortable range [facility] Vhrhawqhq2739-55-61 20:32:19 Test Item Value Reference Range Interpretation [...] above 28 g/L. [Automated message] The system [employer] generated this result transmitted ref erence range: [...] par ameters are outside rep ortable range [facility] Tnikrtulg4247-04-48 20:32:19 Test Item Value Reference Range Interpretation [...] above 28 g/L. [Automated message] The system [employer] generated this result transmitted ref erence range: [...] par ameters are outside rep ortable range [facility] Myqfdcrwl4673-29-29 20:32:19 Test Item Value Reference Range Interpretation [...] above 28 g/L. [Automated message] The system [employer] generated this result transmitted ref erence range: [...] par ameters are outside rep ortable range [facility] Cdafgex7434-57-34 20:32:16 Test Item Value Reference Range Interpretation Comments Total Protein (test code = 2885-2) 7.1 g/dL 6.4-8.3 [facility] Wuokpmd1825-54-29 20:32:16 Test Item Value Reference Range Interpretation Comments Total Protein (test code = 2885-2) 7.1 g/dL 6.4-8.3 [facility] Nuahhhb1879-63-26 20:32:16 Test Item Value Reference Range Interpretation Comments Total Protein (test code = 2885-2) 7.1 g/dL 6.4-8.3 [facility] Tdcnpkd0268-06-21 20:32:16 Test Item Value Reference Range Interpretation Comments Total Protein (test code = 2885-2) 7.1 g/dL 6.4-8.3 [facility] Ghkvyql1233-79-74 20:32:16 Test Item Value Reference Range Interpretation Comments Total Protein (test code = 2885-2) 7.1 g/dL 6.4-8.3 [facility] Rgsdufd3424-31-94 20:32:16 Test Item Value Reference Range Interpretation Comments Total Protein (test code = 2885-2) 7.1 g/dL 6.4-8.3 [facility] Svsekky5625-87-06 20:32:16 Test Item Value Reference Range Interpretation Comments Total Protein (test code = 2885-2) 7.1 g/dL 6.4-8.3 [facility] Lbqyqmpgoat9594-00-71 20:32:14 Test Item Value Reference Range Interpretation Comments Alk Phos (test code = 6768-6) 90 U/L 40-129 [facility] Ptyqgnnsanh7931-99-94 20:32:14 Test Item Value Reference Range Interpretation Comments Alk Phos (test code = 6768-6) 90 U/L 40-129 [facility] Aofkkxiijrw4582-06-31 20:32:14 Test Item Value Reference Range Interpretation Comments Alk Phos (test code = 6768-6) 90 U/L 40-129 [facility] Amxfadzcqqd3579-67-91 20:32:14 Test Item Value Reference Range Interpretation Comments Alk Phos (test code = 6768-6) 90 U/L 40-129 [facility] Yrptqrsdreo9315-96-41 20:32:14 Test Item Value Reference Range Interpretation Comments Alk Phos (test code = 6768-6) 90 U/L 40-129 [facility] Eegqhamyxlh5589-55-11 20:32:14 Test Item Value Reference Range Interpretation Comments Alk Phos (test code = 6768-6) 90 U/L 40-129 [facility] Anvkkhxkssa2306-01-18 20:32:14 Test Item Value Reference Range Interpretation Comments Alk Phos (test code = 6768-6) 90 U/L 40-129 [facility] 20:32:12 Test Item Value Reference Range Interpretation Comments ALT (test code = 13 U/L See_Comment [Automated message] The 1741-08) system which ge nerated this result transmit esteban reference range : <=41. The reference range was not used to interpr et this result as cuate l/abnormal. [address]03-11 20:32:12 Test Item Value Reference Range Interpretation Comments ALT (test code = 13 U/L See_Comment [Automated message] [facility]04-19) system which ge nerated this result transmit esteban reference range : <=41. The reference range was not used to interpr et this result as cuate l/abnormal. [address]03-11 20:32:12 Test Item Value Reference Range Interpretation Comments ALT (test code = 13 U/L See_Comment [Automated message] [facility]04-19) system which ge nerated this result transmit esteban reference range : <=41. The reference range was not used to interpr et this result as cuate l/abnormal. [address]03-11 20:32:12 Test Item Value Reference Range Interpretation Comments ALT (test code = 13 U/L See_Comment [Automated message] [facility]) system which ge nerated this result transmit esteban reference range : <=41. The reference range was not used to interpr et this result as cuate l/abnormal. [place] [address]-03-11 20:32:12 Test Item Value Reference Range Interpretation Comments ALT (test code = 13 U/L See_Comment [Automated message] [facility]04-19) system which ge nerated this result transmit esteban reference range : <=41. The reference range was not used to interpr et this result as cuate l/abnormal. [place] [address]-03-11 20:32:12 Test Item Value Reference Range Interpretation Comments ALT (test code = 13 U/L See_Comment [Automated message] [facility]04-19) system which ge nerated this result transmit esteban reference range : <=41. The reference range was not used to interpr et this result as cuate l/abnormal. [place] [address]-03-11 20:32:12 Test Item Value Reference Range Interpretation Comments ALT (test code = 13 U/L See_Comment [Automated message] [facility]04-19) system which ge nerated this result transmit esteban reference range : <=41. The reference range was not used to interpr et this result as cuate l/abnormal. [facility] Wfxkn9247-73-74 20:32:07 Test Item Value Reference Range Interpretation Comments Albumin Lvl (test code 4.1 See_Comment [Aut omated message] The = 4763) system which ge nerated this result tra nsmitted reference range : 3.5 - 5.2 gm/dL. The refe rence range was not used to interpret this result as normal/abnormal . [facility] Leuui7136-90-52 20:32:07 Test Item Value Reference Range Interpretation Comments Albumin Lvl (test code 4.1 See_Comment [Aut omated message] The = 4763) system which ge nerated this result tra nsmitted reference range : 3.5 - 5.2 gm/dL. The refe rence range was not used to interpret this result as normal/abnormal . [facility] Kelmk7755-53-49 20:32:07 Test Item Value Reference Range Interpretation Comments Albumin Lvl (test code 4.1 See_Comment [Aut omated message] The = 4763) system which ge nerated this result tra nsmitted reference range : 3.5 - 5.2 gm/dL. The refe rence range was not used to interpret this result as normal/abnormal . [facility] Moogh5109-52-04 20:32:07 Test Item Value Reference Range Interpretation Comments Albumin Lvl (test code 4.1 See_Comment [Aut omated message] The = 4763) system which ge nerated this result tra nsmitted reference range : 3.5 - 5.2 gm/dL. The refe rence range was not used to interpret this result as normal/abnormal . [facility] Kyzeb7295-47-77 20:32:07 Test Item Value Reference Range Interpretation Comments Albumin Lvl (test code 4.1 See_Comment [Aut omated message] The = 4763) system which ge nerated this result tra nsmitted reference range : 3.5 - 5.2 gm/dL. The refe rence range was not used to interpret this result as normal/abnormal . [facility] Gwjer4267-55-99 20:32:07 Test Item Value Reference Range Interpretation Comments Albumin Lvl (test code 4.1 See_Comment [Aut omated message] The = 6530) system which ge nerated this result tra nsmitted reference range : 3.5 - 5.2 gm/dL. The refe rence range was not used to interpret this result as normal/abnormal . [facility] Ohcqd2934-37-86 20:32:07 Test Item Value Reference Range Interpretation Comments Albumin Lvl (test code 4.1 See_Comment [Aut omated message] The = 4583) system which ge nerated this result tra nsmitted reference range : 3.5 - 5.2 gm/dL. The refe rence range was not used to interpret this result as normal/abnormal . [facility] Amin[facility] 2021-05-22 20:32:06 Test Item Value Reference Range Interpretation Comments AST (test code = 19 U/L See_Comment [Automated message] The 1919-10) system which ge nerated this result transmit esteban reference range : <=40. The reference range was not used to interpr et this result as cuate l/abnormal. [facility] Aminotransferase 2021-05-22 20:32:06 Test Item Value Reference Range Interpretation Comments AST (test code = 19 U/L See_Comment [Automated message] The 1919-10) system which ge nerated this result transmit esteban reference range : <=40. The reference range was not used to interpr et this result as cuate l/abnormal. [facility] Amin[facility] 2021-05-22 20:32:06 Test Item Value Reference Range Interpretation Comments AST (test code = 19 U/L See_Comment [Automated message] The 1919-10) system which ge nerated this result transmit esteban reference range : <=40. The reference range was not used to interpr et this result as cuate l/abnormal. [facility] Amin[facility] 2021-05-22 20:32:06 Test Item Value Reference Range Interpretation Comments AST (test code = 19 U/L See_Comment [Automated message] The 1919-10) system which ge nerated this result transmit esteban reference range : <=40. The reference range was not used to interpr et this result as cuate l/abnormal. [facility] Amin[facility] 2021-05-22 20:32:06 Test Item Value Reference Range Interpretation Comments AST (test code = 19 U/L See_Comment [Automated message] The 1919-10) system which ge nerated this result transmit esteban reference range : <=40. The reference range was not used to interpr et this result as cuate l/abnormal. [facility] 2021-05-22 20:32:06 Test Item Value Reference Range Interpretation Comments AST (test code = 19 U/L See_Comment [Automated message] The 1919-10) system which ge nerated this result transmit esteban reference range : <=40. The reference range was not used to interpr et this result as cuate l/abnormal. [facility] 2021-05-22 20:32:06 Test Item Value Reference Range Interpretation Comments AST (test code = 19 U/L See_Comment [Automated message] The 1919-10) system which ge nerated this result transmit esteban reference range : <=40. The reference range was not used to interpr et this result as cuate l/abnormal. [facility] 20:05:31 Test Item Value Reference Range Interpretation Comments Neutrophil % (test code = 77.0 % 42.0-66.0 H 770-8) Lymphocyte % (test code = 11.6 % 24.0-44.0 L 736-9) Monocyte % (test code = 9.2 % 2.0-7.0 H 5905-5) Eosinophil % (test code = 1.2 % 1.0-4.0 713-8) Basophil % (test code = 0.6 % 0.0-1.0 10439-9) IGRE % (test code = 0.4 % 0.0-0.4 IGRE % c [place]unt 16151-5) includes Metamyelocytes, Myelocytes, and Promyelocytes. Neutrophil Abs (test code 5.16 K/uL 1.70-7.30 = 751-8) Lymphocyte Abs (test code 0.78 K/uL 1.00-4.80 L = 731-0) Monocyte Abs (test code = 0.62 K/uL 0.08-0.70 742-7) Eosinophil Abs (test code 0.08 K/uL 0.04-0.40 = 711-2) Basophil Abs (test code = 0.04 K/uL 0.00-0.10 704-7) IG Abs (test code = 0.03 K/uL 0.00-0.04 01030-7) Lab Interpretation (test Abnormal code = 46808-2) [facility] 20:05:31 Test Item Value Reference Range Interpretation Comments Neutrophil % (test code = 77.0 % 42.0-66.0 H 770-8) Lymphocyte % (test code = 11.6 % 24.0-44.0 L 736-9) Monocyte % (test code = 9.2 % 2.0-7.0 H 5905-5) Eosinophil % (test code = 1.2 % 1.0-4.0 713-8) Basophil % (test code = 0.6 % 0.0-1.0 01841-1) IGRE % (test code = 0.4 % 0.0-0.4 IGRE % [place]unt 24790-7) includes Metamyelocytes, Myelocytes, and Promyelocytes. Neutrophil Abs (test code 5.16 K/uL 1.70-7.30 = 751-8) Lymphocyte Abs (test code 0.78 K/uL 1.00-4.80 L = 731-0) Monocyte Abs (test code = 0.62 K/uL 0.08-0.70 742-7) Eosinophil Abs (test code 0.08 K/uL 0.04-0.40 = 711-2) Basophil Abs (test code = 0.04 K/uL 0.00-0.10 704-7) IG Abs (test code = 0.03 K/uL 0.00-0.04 45815-5) Lab Interpretation (test Abnormal code = 25525-4) [facility] 20:05:31 Test Item Value Reference Range Interpretation Comments Neutrophil % (test code = 77.0 % 42.0-66.0 H 770-8) Lymphocyte % (test code = 11.6 % 24.0-44.0 L 736-9) Monocyte % (test code = 9.2 % 2.0-7.0 H 5905-5) Eosinophil % (test code = 1.2 % 1.0-4.0 713-8) Basophil % (test code = 0.6 % 0.0-1.0 00320-0) IGRE % (test code = 0.4 % 0.0-0.4 IGRE % c [place]unt 93905-8) includes Metamyelocytes, Myelocytes, and Promyelocytes. Neutrophil Abs (test code 5.16 K/uL 1.70-7.30 = 751-8) Lymphocyte Abs (test code 0.78 K/uL 1.00-4.80 L = 731-0) Monocyte Abs (test code = 0.62 K/uL 0.08-0.70 742-7) Eosinophil Abs (test code 0.08 K/uL 0.04-0.40 = 711-2) Basophil Abs (test code = 0.04 K/uL 0.00-0.10 704-7) IG Abs (test code = 0.03 K/uL 0.00-0.04 84640-4) Lab Interpretation (test Abnormal code = 15110-0) [facility] WrlutfZitmyxlxcjko5492-08-50 20:05:31 Test Item Value Reference Range Interpretation Comments Neutrophil % (test code = 77.0 % 42.0-66.0 H 770-8) Lymphocyte % (test code = 11.6 % 24.0-44.0 L 736-9) Monocyte % (test code = 9.2 % 2.0-7.0 H 5905-5) Eosinophil % (test code = 1.2 % 1.0-4.0 713-8) Basophil % (test code = 0.6 % 0.0-1.0 37903-0) IGRE % (test code = 0.4 % 0.0-0.4 IGRE % c [place]unt 30628-2) includes Metamyelocytes, Myelocytes, and Promyelocytes. Neutrophil Abs (test code 5.16 K/uL 1.70-7.30 = 751-8) Lymphocyte Abs (test code 0.78 K/uL 1.00-4.80 L = 731-0) Monocyte Abs (test code = 0.62 K/uL 0.08-0.70 742-7) Eosinophil Abs (test code 0.08 K/uL 0.04-0.40 = 711-2) Basophil Abs (test code = 0.04 K/uL 0.00-0.10 704-7) IG Abs (test code = 0.03 K/uL 0.00-0.04 04082-2) Lab Interpretation (test Abnormal code = 30540-2) [facility] 20:05[facility]31 Test Item Value Reference Range Interpretation Comments Neutrophil % (test code = 77.0 % 42.0-66.0 H 770-8) Lymphocyte % (test code = 11.6 % 24.0-44.0 L 736-9) Monocyte % (test code = 9.2 % 2.0-7.0 H 5905-5) Eosinophil % (test code = 1.2 % 1.0-4.0 713-8) Basophil % (test code = 0.6 % 0.0-1.0 60305-0) IGRE % (test code = 0.4 % 0.0-0.4 IGRE % c ount 01844-7) includes Metamyelocytes, Myelocytes, and Promyelocytes. Neutrophil Abs (test code 5.16 K/uL 1.70-7.30 = 751-8) Lymphocyte Abs (test code 0.78 K/uL 1.00-4.80 L = 731-0) Monocyte Abs (test code = 0.62 K/uL 0.08-0.70 742-7) Eosinophil Abs (test code 0.08 K/uL 0.04-0.40 = 711-2) Basophil Abs (test code = 0.04 K/uL 0.00-0.10 704-7) IG Abs (test code = 0.03 K/uL 0.00-0.04 68527-1) Lab Interpretation (test Abnormal code = 92171-3) [facility] 20:05[facility]31 Test Item Value Reference Range Interpretation Comments Neutrophil % (test code = 77.0 % 42.0-66.0 H 770-8) Lymphocyte % (test code = 11.6 % 24.0-44.0 L 736-9) Monocyte % (test code = 9.2 % 2.0-7.0 H 5905-5) Eosinophil % (test code = 1.2 % 1.0-4.0 713-8) Basophil % (test code = 0.6 % 0.0-1.0 42943-5) IGRE % (test code = 0.4 % 0.0-0.4 IGRE % c [place]unt 47413-0) includes Metamyelocytes, Myelocytes, and Promyelocytes. Neutrophil Abs (test code 5.16 K/uL 1.70-7.30 = 751-8) Lymphocyte Abs (test code 0.78 K/uL 1.00-4.80 L = 731-0) Monocyte Abs (test code = 0.62 K/uL 0.08-0.70 742-7) Eosinophil Abs (test code 0.08 K/uL 0.04-0.40 = 711-2) Basophil Abs (test code = 0.04 K/uL 0.00-0.10 704-7) IG Abs (test code = 0.03 K/uL 0.00-0.04 02528-8) Lab Interpretation (test Abnormal code = 36581-1) [facility] BjipnzWvwkmvwxlsyh7692-98-10 20:05:31 Test Item Value Reference Range Interpretation Comments Neutrophil % (test code = 77.0 % 42.0-66.0 H 770-8) Lymphocyte % (test code = 11.6 % 24.0-44.0 L 736-9) Monocyte % (test code = 9.2 % 2.0-7.0 H 5905-5) Eosinophil % (test code = 1.2 % 1.0-4.0 713-8) Basophil % (test code = 0.6 % 0.0-1.0 19882-5) IGRE % (test code = 0.4 % 0.0-0.4 IGRE % c ount 09090-5) includes Metamyelocytes, Myelocytes, and Promyelocytes. Neutrophil Abs (test code 5.16 K/uL 1.70-7.30 = 751-8) Lymphocyte Abs (test code 0.78 K/uL 1.00-4.80 L = 731-0) Monocyte Abs (test code = 0.62 K/uL 0.08-0.70 742-7) Eosinophil Abs (test code 0.08 K/uL 0.04-0.40 = 711-2) Basophil Abs (test code = 0.04 K/uL 0.00-0.10 704-7) IG Abs (test code = 0.03 K/uL 0.00-0.04 19614-9) Lab Interpretation (test Abnormal code = 89481-7) [facility] [place].XCA3962-81-38 20:05:16 Test Item Value Reference Range Interpretation Comments WBC (test code = 6.7 K/uL 4.0-11.0 6690-2) RBC (test code = 789-8) 4.57 See_Comment [Au tomated message] The system [employer] generated this result transmitted ref erence range: 4.50 - 6 .00 M/uL. The refer ence range was not u sed to interpret this result as normal/abnor mal. Hgb (test code = 718-7) 13.5 See_Comment L [Au tomated message] The system [employer] generated this result transmitted ref erence range: 14.0 - 1 8.0 gm/dL. The refe rence range was not u sed to interpret this result as normal/abnor mal. Hct (test code = 42.7 % 40.0-54.0 4544-3) MCV (test code = 787-2) 93 fL 82-98 MCH (test code = 785-6) 29.5 pg 27.0-31.0 MCHC (test code = 31.6 See_Comment [Automate d message] 786-4) The system [employer] generated this result transmitted ref erence range: 31.0 - 3 6.0 gm/dL. The refe rence range was not u sed to interpret this result as normal/abnor mal. RDW-SD (test code = 49.6 fL 35.1-46.3 H 56086-3) RDW-CV (test code = 14.6 % 12.0-15.5 788-0) Platelet count (test 172 K/uL 140-440 code = 777-3) MPV (test code = 11.1 fL 4.0-10.4 H 88402-2) INRBC (test code = 0.0 % See_Comment The INRBC (instrument 50385-9) NRBC) value ref lects the enumeration of nucleated red b lood cells contained in a 200uL sampleof whole blood analyzed by the instrument. Thi s value maydiffer from the NRBC value repo rted in a manual differential,wh ich is based on a 100 cell differential. [Automated mess age] The system [employer] generated this result transmitted ref erence range: <=0.0. T he reference range was not used to int erpret this result as normal/abnormal . Lab Interpretation Abnormal (test code = 72234-5) [facility] [place].TKE9546-14-02 20:05:16 Test Item Value Reference Range Interpretation Comments WBC (test code = 6.7 K/uL 4.0-11.0 6690-2) RBC (test code = 789-8) 4.57 See_Comment [Au tomated message] The system [employer] generated this result transmitted ref erence range: 4.50 - 6 .00 M/uL. The refer ence range was not u sed to interpret this result as normal/abnor mal. Hgb (test code = 718-7) 13.5 See_Comment L [Au tomated message] The system [employer] generated this result transmitted ref erence range: 14.0 - 1 8.0 gm/dL. The refe rence range was not u sed to interpret this result as normal/abnor mal. Hct (test code = 42.7 % 40.0-54.0 4544-3) MCV (test code = 787-2) 93 fL 82-98 MCH (test code = 785-6) 29.5 pg 27.0-31.0 MCHC (test code = 31.6 See_Comment [Automate d message] 786-4) The system [employer] generated this result transmitted ref erence range: 31.0 - 3 6.0 gm/dL. The refe rence range was not u sed to interpret this result as normal/abnor mal. RDW-SD (test code = 49.6 fL 35.1-46.3 H 56052-7) RDW-CV (test code = 14.6 % 12.0-15.5 788-0) Platelet count (test 172 K/uL 140-440 code = 777-3) MPV (test code = 11.1 fL 4.0-10.4 H 58568-8) INRBC (test code = 0.0 % See_Comment The INRBC (instrument 03010-2) NRBC) value ref lects the enumeration of nucleated red b lood cells contained in a 200uL sampleof whole blood analyzed by the instrument. Thi s value maydiffer from the NRBC value repo rted in a manual differential,wh ich is based on a 100 cell differential. [Automated mess age] The system [employer] generated this result transmitted ref erence range: <=0.0. T he reference range was not used to int erpret this result as normal/abnormal . Lab Interpretation Abnormal (test code = 46514-9) [facility] [place].BAS8778-49-93 20:05:16 Test Item Value Reference Range Interpretation Comments WBC (test code = 6.7 K/uL 4.0-11.0 6690-2) RBC (test code = 789-8) 4.57 See_Comment [Au tomated message] The system [employer] generated this result transmitted ref erence range: 4.50 - 6 .00 M/uL. The refer ence range was not u sed to interpret this result as normal/abnor mal. Hgb (test code = 718-7) 13.5 See_Comment L [Au tomated message] The system [employer] generated this result transmitted ref erence range: 14.0 - 1 8.0 gm/dL. The refe rence range was not u sed to interpret this result as normal/abnor mal. Hct (test code = 42.7 % 40.0-54.0 4544-3) MCV (test code = 787-2) 93 fL 82-98 MCH (test code = 785-6) 29.5 pg 27.0-31.0 MCHC (test code = 31.6 See_Comment [Automate d message] 786-4) The system [employer] generated this result transmitted ref erence range: 31.0 - 3 6.0 gm/dL. The refe rence range was not u sed to interpret this result as normal/abnor mal. RDW-SD (test code = 49.6 fL 35.1-46.3 H 84747-2) RDW-CV (test code = 14.6 % 12.0-15.5 788-0) Platelet count (test 172 K/uL 140-440 code = 777-3) MPV (test code = 11.1 fL 4.0-10.4 H 22967-2) INRBC (test code = 0.0 % See_Comment The INRBC (instrument 92918-1) NRBC) value ref lects the enumeration of nucleated red b lood cells contained in a 200uL sampleof whole blood analyzed by the instrument. Thi s value maydiffer from the NRBC value repo rted in a manual differential,wh ich is based on a 100 cell differential. [Automated mess age] The system [employer] generated this result transmitted ref erence range: <=0.0. T he reference range was not used to int erpret this result as normal/abnormal . Lab Interpretation Abnormal (test code = 66802-6) [facility] [place].CRP5187-11-92 20:05:16 Test Item Value Reference Range Interpretation Comments WBC (test code = 6.7 K/uL 4.0-11.0 6690-2) RBC (test code = 789-8) 4.57 See_Comment [Au tomated message] The system [employer] generated this result transmitted ref erence range: 4.50 - 6 .00 M/uL. The refer ence range was not u sed to interpret this result as normal/abnor mal. Hgb (test code = 718-7) 13.5 See_Comment L [Au tomated message] The system [employer] generated this result transmitted ref erence range: 14.0 - 1 8.0 gm/dL. The refe rence range was not u sed to interpret this result as normal/abnor mal. Hct (test code = 42.7 % 40.0-54.0 4544-3) MCV (test code = 787-2) 93 fL 82-98 MCH (test code = 785-6) 29.5 pg 27.0-31.0 MCHC (test code = 31.6 See_Comment [Automate d message] 786-4) The system [employer] generated this result transmitted ref erence range: 31.0 - 3 6.0 gm/dL. The refe rence range was not u sed to interpret this result as normal/abnor mal. RDW-SD (test code = 49.6 fL 35.1-46.3 H 83705-6) RDW-CV (test code = 14.6 % 12.0-15.5 788-0) Platelet count (test 172 K/uL 140-440 code = 777-3) MPV (test code = 11.1 fL 4.0-10.4 H 13753-7) INRBC (test code = 0.0 % See_Comment The INRBC (instrument 56922-2) NRBC) value ref lects the enumeration of nucleated red b lood cells contained in a 200uL sampleof whole blood analyzed by the instrument. Thi s value maydiffer from the NRBC value repo rted in a manual differential,wh ich is based on a 100 cell differential. [Automated mess age] The system [employer] generated this result transmitted ref erence range: <=0.0. T he reference range was not used to int erpret this result as normal/abnormal . Lab Interpretation Abnormal (test code = 94552-0) [facility] [place].[id number] 20:05:16 Test Item Value Reference Range Interpretation Comments WBC (test code = 6.7 K/uL 4.0-11.0 6690-2) RBC (test code = 789-8) 4.57 See_Comment [Au tomated message] The system [employer] generated this result transmitted ref erence range: 4.50 - 6 .00 M/uL. The refer ence range was not u sed to interpret this result as normal/abnor mal. Hgb (test code = 718-7) 13.5 See_Comment L [Au tomated message] The system [employer] generated this result transmitted ref erence range: 14.0 - 1 8.0 gm/dL. The refe rence range was not u sed to interpret this result as normal/abnor mal. Hct (test code = 42.7 % 40.0-54.0 4544-3) MCV (test code = 787-2) 93 fL 82-98 MCH (test code = 785-6) 29.5 pg 27.0-31.0 MCHC (test code = 31.6 See_Comment [Automate d message] 786-4) The system [employer] generated this result transmitted ref erence range: 31.0 - 3 6.0 gm/dL. The refe rence range was not u sed to interpret this result as normal/abnor mal. RDW-SD (test code = 49.6 fL 35.1-46.3 H 34933-4) RDW-CV (test code = 14.6 % 12.0-15.5 788-0) Platelet count (test 172 K/uL 140-440 code = 777-3) MPV (test code = 11.1 fL 4.0-10.4 H 56912-3) INRBC (test code = 0.0 % See_Comment The INRBC (instrument 36897-5) NRBC) value ref lects the enumeration of nucleated red b lood cells contained in a 200uL sampleof whole blood analyzed by the instrument. Thi s value maydiffer from the NRBC value repo rted in a manual differential,wh ich is based on a 100 cell differential. [Automated mess age] The system [employer] generated this result transmitted ref erence range: <=0.0. T he reference range was not used to int erpret this result as normal/abnormal . Lab Interpretation Abnormal (test code = 61318-2) [facility] [place].[id number] 20:05:16 Test Item Value Reference Range Interpretation Comments WBC (test code = 6.7 K/uL 4.0-11.0 6690-2) RBC (test code = 789-8) 4.57 See_Comment [Au tomated message] The system [employer] generated this result transmitted ref erence range: 4.50 - 6 .00 M/uL. The refer ence range was not u sed to interpret this result as normal/abnor mal. Hgb (test code = 718-7) 13.5 See_Comment L [Au tomated message] The system [employer] generated this result transmitted ref erence range: 14.0 - 1 8.0 gm/dL. The refe rence range was not u sed to interpret this result as normal/abnor mal. Hct (test code = 42.7 % 40.0-54.0 4544-3) MCV (test code = 787-2) 93 fL 82-98 MCH (test code = 785-6) 29.5 pg 27.0-31.0 MCHC (test code = 31.6 See_Comment [Automate d message] 786-4) The system [employer] generated this result transmitted ref erence range: 31.0 - 3 6.0 gm/dL. The refe rence range was not u sed to interpret this result as normal/abnor mal. RDW-SD (test code = 49.6 fL 35.1-46.3 H 83620-7) RDW-CV (test code = 14.6 % 12.0-15.5 788-0) Platelet count (test 172 K/uL 140-440 code = 777-3) MPV (test code = 11.1 fL 4.0-10.4 H 14693-4) INRBC (test code = 0.0 % See_Comment The INRBC (instrument 32172-8) NRBC) value ref lects the enumeration of nucleated red b lood cells contained in a 200uL sampleof whole blood analyzed by the instrument. Thi s value maydiffer from the NRBC value repo rted in a manual differential,wh ich is based on a 100 cell differential. [Automated mess age] The system [employer] generated this result transmitted ref erence range: <=0.0. T he reference range was not used to int erpret this result as normal/abnormal . Lab Interpretation Abnormal (test code = 49474-0) [facility] [place].[id number] 20:05:16 Test Item Value Reference Range Interpretation Comments WBC (test code = 6.7 K/uL 4.0-11.0 6690-2) RBC (test code = 789-8) 4.57 See_Comment [Au tomated message] The system [employer] generated this result transmitted ref erence range: 4.50 - 6 .00 M/uL. The refer ence range was not u sed to interpret this result as normal/abnor mal. Hgb (test code = 718-7) 13.5 See_Comment L [Au tomated message] The system [employer] generated this result transmitted ref erence range: 14.0 - 1 8.0 gm/dL. The refe rence range was not u sed to interpret this result as normal/abnor mal. Hct (test code = 42.7 % 40.0-54.0 4544-3) MCV (test code = 787-2) 93 fL 82-98 MCH (test code = 785-6) 29.5 pg 27.0-31.0 MCHC (test code = 31.6 See_Comment [Automate d message] 786-4) The system [employer] generated this result transmitted ref erence range: 31.0 - 3 6.0 gm/dL. The refe rence range was not u sed to interpret this result as normal/abnor mal. RDW-SD (test code = 49.6 fL 35.1-46.3 H 78047-9) RDW-CV (test code = 14.6 % 12.0-15.5 788-0) Platelet count (test 172 K/uL 140-440 code = 777-3) MPV (test code = 11.1 fL 4.0-10.4 H 91120-1) INRBC (test code = 0.0 % See_Comment The INRBC (instrument 44799-8) NRBC) value ref lects the enumeration of nucleated red b lood cells contained in a 200uL sampleof whole blood analyzed by the instrument. Thi s value maydiffer from the NRBC value repo rted in a manual differential,wh ich is based on a 100 cell differential. [Automated mess age] The system [employer] generated this result transmitted ref erence range: <=0.0. T he reference range was not used to int erpret this result as normal/abnormal . Lab Interpretation Abnormal (test code = 12148-6) [facility] Troponin [id number] 20:01:26 Test Item Value Reference Range Interpretation Comments POC CTNI (test code 0.17 ng/mL 0.00-0.08 H This cTn I test is = 02601-2) performed by e Rqsvq-em-Ytpr analyzer method ,and the result may be [...] MDA Main Main Ca mpus code = 45538) [facility] Cli nical Lab, [address] [facility] [place] [address]; [employer] Backtender: Nancie Stafford MD Lab Interpretation Abnormal (test code = 77629-3) [facility] Troponin [id number] 20:01:26 Test Item Value Reference Range Interpretation Comments POC CTNI (test code 0.17 ng/mL 0.00-0.08 H This cTn I test is = 57511-6) performed by e Inuul-wq-Alzv analyzer method ,and the result may be [...] Yes code = 6672) Performing Lab (test [facility] mpus code = 18602) [facility] Cli nical Lab, [address] [place] [address] [place] [address]; [employer] Backtender: Nancie Stafford MD Lab Interpretation Abnormal (test code = 01762-1) [facility] Troponin [id number] 20:01:26 Test Item Value Reference Range Interpretation Comments POC CTNI (test code 0.17 ng/mL 0.00-0.08 H This cTn I test is = 37593-3) performed by e Hohjp-ok-Onhr analyzer method ,and the result may be [...] immunosorbent a ssay (SNEHA) method. Antibodies spec [facility] for human cardi ac troponin I (cTn [...] Yes code = 6672) Performing Lab (test [facility] mpus code = 65620) [facility] Cli nical Lab, [address] [facility] [place] [address]; [employer] Backtender: Nancie Stafford MD Lab Interpretation Abnormal (test code = 99534-6) [facility] Troponin [id number] 20:01:26 Test Item Value Reference Range Interpretation Comments POC CTNI (test code 0.17 ng/mL 0.00-0.08 H This cTn I test is = 77249-1) performed by th e Elgnx-lb-Yavo analyzer method ,and the result may be [...] immunosorbent a ssay (SNEHA) method. Antibodies spec [facility] for human cardi ac troponin I (cTn [...] MDA Main Main Ca mpus code = 92350) [facility] Cli nical Lab, [address] [facility] [place] [address]; [employer] Backtender: Nancie Stafford MD Lab Interpretation Abnormal (test code = 14052-9) [facility] Troponin [id number] 20:01:26 Test Item Value Reference Range Interpretation Comments POC CTNI (test code 0.17 ng/mL 0.00-0.08 H This cTn I test is = 04763-8) performed by th e Pslam-hf-Hshq analyzer method ,and the result may be different from the Clinical LaboratoryMetho d. Abnormal test r esults are recommended for confirmatorytes t by Clinical labora tory method. Patient s with normal testresu lts but clinically suspicious for acute myocardial infarctionshoul d be tested by Clini adilene Laboratory meth od. Method descript ion: The Troponin I (cTnI) uses a two-site enzyme-linked immunosorbent a ssay (NSEHA) method. Antibodies spec ific for human cardi [...] MDA Main Main Ca mpus code = 06226) [facility] Cli nical Lab, [facility] [place] [address]; [employer]former Backtender: Nancie Stafford MD Lab Interpretation Abnormal (test code = 15185-0) [facility] Troponin [id number] 20:01:26 Test Item Value Reference Range Interpretation Comments POC CTNI (test code 0.17 ng/mL 0.00-0.08 H This cTn I test is = 51843-7) performed by e Kdtdd-tx-Ijgl analyzer method ,and the result may be [...] the [facility] o f [facility] P[facility] Clean Dev (test Yes code = 6672) Performing Lab (test [facility] mpus code = 50460) [facility] [address] [place] [address]; [employer]former Backtender: Nancie Stafford MD Lab Interpretation Abnormal (test code = 93950-1) [facility] Troponin [id number] 20:01:26 Test Item Value Reference Range Interpretation Comments POC CTNI (test code 0.17 ng/mL 0.00-0.08 H This cTn I test is = 67344-6) performed by e Pvoxv-ib-Mbzg analyzer method ,and the result may be [...] immunosorbent a ssay (SNEHA) method. Antibodies spec [facility] for human cardi ac troponin I (cTn [...] the concentration o f [facility] POC Clean Dev (test Yes code = 6672) Performing Lab (test [facility] mpus code = 38372) [facility], [address] [place] [address]; [employer]former Backtender: Nancie Stafford MD Lab Interpretation Abnormal (test code = 93834-4) [facility] [place] 2020-06-30 00:00:00 Test Item Value Reference Range Interpretation Comments GLUCOSE (test code = 2217) 95 MG/DL BUN (test code = 2208) 24 MG/DL CREATININE (test code = 2214) 0.83 MG/DL eGFR AMER. (test code 98 ML/MIN/1.73 = 80720) eGFR NON- AMER. (test 84 ML/MIN/1.73 code = 91552) CALC BUN/CREAT (test code = 29 RATIO [...] CALC GLOBULIN (test code = 2.5 G/DL 2239) CALC A/G RATIO (test code = 1.8 RATIO 2234) BILIRUBIN, TOTAL (test code = 0.3 MG/DL 2206) ALKALINE PHOSPHATASE (test 81 U/L code = 2204) AST (test code = 2218) 29 U/L ALT (test code = 2219) 22 U/L COMPREHENSIVE METABOLIC [id number] 00:00:00 Test Item Value Reference Range Interpretation Comments GLUCOSE (test code = 2217) 95 MG/DL BUN (test code = 2208) 24 MG/DL CREATININE (test code = 2214) 0.83 MG/DL eGFR AMER. (test code 98 ML/MIN/1.73 = 75878) eGFR NON- AMER. (test 84 ML/MIN/1.73 code = 23694) CALC BUN/CREAT (test code = 29 RATIO [...] (test code = 2219) 22 U/L LIPID [id number] 00:00:00 Test Item Value Reference Range Interpretation Comments CHOLESTEROL (test code = 2210) 186 MG/DL TRIGLYCERIDES (test code = 2232) 102 MG/DL HDL CHOLESTEROL (test code = 2220) 64 MG/DL CALC LDL CHOL (test code = 2237) 102 MG/DL RISK RATIO LDL/HDL (test code = 1.59 RATIO 2238) LIPID [id number] 00:00:00 Test Item Value Reference Range Interpretation Comments CHOLESTEROL (test code = 2210) 186 MG/DL TRIGLYCERIDES (test code = 2232) 102 MG/DL HDL CHOLESTEROL (test code = 2220) 64 MG/DL CALC LDL CHOL (test code = 2237) 102 MG/DL RISK RATIO LDL/HDL (test code = 1.59 RATIO 2238) COMPREHENSIVE METABOLIC [id number] 00:00:00 Test Item Value Reference Range Interpretation Comments GLUCOSE (test code = 2217) 95 MG/DL BUN (test code = 2208) 24 MG/DL CREATININE (test code = 2214) 0.83 MG/DL eGFR AMER. (test code 98 ML/MIN/1.73 = 50832) eGFR NON- AMER. (test 84 ML/MIN/1.73 code = 96945) CALC BUN/CREAT (test code = 29 RATIO [...] BILIRUBIN, TOTAL (test code = 0.3 MG/DL 2207) ALKALINE PHOSPHATASE (test 81 U/L code = 2204) AST (test code = 2218) 29 U/L ALT (test code = 2219) 22 U/L COMPREHENSIVE METABOLIC [id number] 00:00:00 Test Item Value Reference Range Interpretation Comments GLUCOSE (test code = 2217) 95 MG/DL BUN (test code = 2208) 24 MG/DL CREATININE (test code = 2214) 0.83 MG/DL eGFR AMER. (test code 98 ML/MIN/1.73 = 24074) eGFR NON- AMER. (test 84 ML/MIN/1.73 code = 24115) CALC BUN/CREAT (test code = 29 RATIO [...] (test code = 2219) 22 U/L LIPID [id number] 00:00:00 Test Item Value Reference Range Interpretation Comments CHOLESTEROL (test code = 2210) 186 MG/DL TRIGLYCERIDES (test code = 2232) 102 MG/DL HDL CHOLESTEROL (test code = 2220) 64 MG/DL CALC LDL CHOL (test code = 2237) 102 MG/DL RISK RATIO LDL/HDL (test code = 1.59 RATIO 2238) LIPID [id number] 00:00:00 Test Item Value Reference Range Interpretation Comments CHOLESTEROL (test code = 2210) 186 MG/DL TRIGLYCERIDES (test code = 2232) 102 MG/DL HDL CHOLESTEROL (test code = 2220) 64 MG/DL CALC LDL CHOL (test code = 2237) 102 MG/DL RISK RATIO LDL/HDL (test code = 1.59 RATIO 2238) CBC W/AUTO [id number] 00:00:00 Test Item Value Reference Range Interpretation [...] code = 1015) 214 K/UL CBC W/AUTO [id number] 00:00:00 Test Item Value Reference Range Interpretation [...] code = 1015) 214 K/UL CBC W/AUTO [id number] 00:00:00 Test Item Value Reference Range Interpretation [...] code = 1015) 214 K/UL CBC W/AUTO [id number] 00:00:00 Test Item Value Reference Range Interpretation [...] code = 1015) 214 K/UL CBC W/AUTO [id number] 00:00:00 Test Item Value Reference Range Interpretation [...] code = 1015) 214 K/UL CBC W/AUTO [id number] 00:00:00 Test Item Value Reference Range Interpretation [...] (test code = 1015) 214 K/UL PSA, [id number] 00:00:00 Test Item Value Reference Range Interpretation Comments PSA, TOTAL (test code = 2606) 16.70 NG/ML PSA, [id number] 00:00:00 Test Item Value Reference Range Interpretation Comments PSA, TOTAL (test code = 2606) 16.70 NG/ML PSA, [id number] 00:00:00 Test Item Value Reference Range Interpretation Comments PSA, TOTAL (test code = 2606) 16.70 NG/ML HEMOGLOBIN [id number] 00:00:00 Test Item Value Reference Range Interpretation Comments HEMOGLOBIN A1c (test code = 98293) 5.5 % HEMOGLOBIN [id number] 00:00:00 Test Item Value Reference Range Interpretation Comments HEMOGLOBIN A1c (test code = 81073) 5.5 % HEMOGLOBIN [id number] 00:00:00 Test Item Value Reference Range Interpretation Comments HEMOGLOBIN A1c (test code = 07076) 5.5 % CBC W/AUTO [id number] 00:00:00 Test Item Value Reference Range Interpretation [...] code = 1015) 172 K/UL CBC W/AUTO [id number] 00:00:00 Test Item Value Reference Range Interpretation [...] code = 1015) 172 K/UL CBC W/AUTO [id number] 00:00:00 Test Item Value Reference Range Interpretation [...] code = 1015) 172 K/UL COMPREHENSIVE METABOLIC [id number] 00:00:00 Test Item Value Reference Range Interpretation Comments GLUCOSE (test code = 2217) 98 MG/DL BUN (test code = 2208) 15 MG/DL CREATININE (test code = 2214) 0.86 MG/DL eGFR AMER. (test code 96 ML/MIN/1.73 = 48353) eGFR NON- AMER. (test 83 ML/MIN/1.73 code = 29638) CALC BUN/CREAT (test code = 17 RATIO [...] code = 2219) 17 U/L COMPREHENSIVE METABOLIC [id number] 00:00:00 Test Item Value Reference Range Interpretation Comments GLUCOSE (test code = 2217) 98 MG/DL BUN (test code = 2208) 15 MG/DL CREATININE (test code = 2214) 0.86 MG/DL eGFR AMER. (test code 96 ML/MIN/1.73 = 05683) eGFR NON- AMER. (test 83 ML/MIN/1.73 code = 95388) CALC BUN/CREAT (test code = 17 RATIO [...] (test code = 2219) 17 U/L LIPID [id number] 00:00:00 Test Item Value Reference Range Interpretation Comments CHOLESTEROL (test code = 2210) 147 MG/DL TRIGLYCERIDES (test code = 2232) 82 MG/DL HDL CHOLESTEROL (test code = 2220) 58 MG/DL CALC LDL CHOL (test code = 2237) 73 MG/DL RISK RATIO LDL/HDL (test code = 1.26 RATIO 2238) LIPID [id number] 00:00:00 Test Item Value Reference Range Interpretation Comments CHOLESTEROL (test code = 2210) 147 MG/DL TRIGLYCERIDES (test code = 2232) 82 MG/DL HDL CHOLESTEROL (test code = 2220) 58 MG/DL CALC LDL CHOL (test code = 2237) 73 MG/DL RISK RATIO LDL/HDL (test code = 1.26 RATIO 2238) PSA, [id number] 00:00:00 Test Item Value Reference Range Interpretation Comments PSA, TOTAL (test code = 2606) 16.70 NG/ML PSA, [id number] 00:00:00 Test Item Value Reference Range Interpretation Comments PSA, TOTAL (test code = 2606) 16.70 NG/ML PSA, [id number] 00:00:00 Test Item Value Reference Range Interpretation Comments PSA, TOTAL (test code = 2606) 16.70 NG/ML HEMOGLOBIN [id number] 00:00:00 Test Item Value Reference Range Interpretation Comments HEMOGLOBIN A1c (test code = 04255) 5.5 % HEMOGLOBIN [id number] 00:00:00 Test Item Value Reference Range Interpretation Comments HEMOGLOBIN A1c (test code = 38553) 5.5 % HEMOGLOBIN [id number] 00:00:00 Test Item Value Reference Range Interpretation Comments HEMOGLOBIN A1c (test code = 24948) 5.5 % CBC W/AUTO [id number] 00:00:00 Test Item Value Reference Range Interpretation [...] code = 1015) 172 K/UL CBC W/AUTO [id number] 00:00:00 Test Item Value Reference Range Interpretation [...] code = 1015) 172 K/UL CBC W/AUTO [id number] 00:00:00 Test Item Value Reference Range Interpretation [...] code = 1015) 172 K/UL COMPREHENSIVE METABOLIC [id number] 00:00:00 Test Item Value Reference Range Interpretation Comments GLUCOSE (test code = 2217) 98 MG/DL BUN (test code = 2208) 15 MG/DL CREATININE (test code = 2214) 0.86 MG/DL eGFR AMER. (test code 96 ML/MIN/1.73 = 55581) eGFR NON- AMER. (test 83 ML/MIN/1.73 code = 90086) CALC BUN/CREAT (test code = 17 RATIO [...] code = 2219) 17 U/L COMPREHENSIVE METABOLIC [id number] 00:00:00 Test Item Value Reference Range Interpretation Comments GLUCOSE (test code = 2217) 98 MG/DL BUN (test code = 2208) 15 MG/DL CREATININE (test code = 2214) 0.86 MG/DL eGFR AMER. (test code 96 ML/MIN/1.73 = 49733) eGFR NON- AMER. (test 83 ML/MIN/1.73 code = 15915) CALC BUN/CREAT (test code = 17 RATIO [...] (test code = 2219) 17 U/L LIPID [id number] 00:00:00 Test Item Value Reference Range Interpretation Comments CHOLESTEROL (test code = 2210) 147 MG/DL TRIGLYCERIDES (test code = 2232) 82 MG/DL HDL CHOLESTEROL (test code = 2220) 58 MG/DL CALC LDL CHOL (test code = 2237) 73 MG/DL RISK RATIO LDL/HDL (test code = 1.26 RATIO 2238) LIPID [id number] 00:00:00 Test Item Value Reference Range Interpretation Comments CHOLESTEROL (test code = 2210) 147 MG/DL TRIGLYCERIDES (test code = 2232) 82 MG/DL HDL CHOLESTEROL (test code = 2220) 58 MG/DL CALC LDL CHOL (test code = 2237) 73 MG/DL RISK RATIO LDL/HDL (test code = 1.26 RATIO 2238) SURGICAL PATHOLOGY [id number] 16:36:00 Test Item Value Reference Range Interpretation Comments Case Report (test code Surgical Pathology ? ? = [id number]) ?Case: [id number] ? Authorizing Provider: ?Pako Lopez MD ?Collected: ? 09/14/2019 1052 ?Ordering Location: ? ? [facility] Urology, Clear Received: ?09/14/2019 1413 ? Martin Rufe ?Pathologist: ? Mitch Perez, MD ?Specimens: ? A) - PROSTATE, Left [...] Right mid base ? Final Diagnosis (test z1kpdNMoWINve9ivGWFflW code = 5504864699) FuZzEwMzNcZnRuYmpcdWMx JVmpjsJdKMcdv7VzP4ZcXc AwMFxhbnNpXGRlZmxhbmcx KEDwBLG3yvNzZTWvRUtnKR RwQZfkNf3ftKVpqLibDoVk JWDbo8lnroQOjpkojJo5z4 dnVHDkWgW5uKRwPEcoY8yh zcSveGXxIDNcXZc9pL23EO LwjA3jiTOrAZwrjdKcChP9 ELduLFPnVcH9PGZkbUKwVX ReJ2liAHNlUOkaHCOdZPkn wZDuQLG3qYipq8K8uTIfaI RgdYqeXjHhDiElGQHKd6Pv WCk3sAupT9KlIDXpUpQ0dG QgUGFyYWdyYXBoIEZvbnQ7 gP33OUmkekJ4uQGix6Ofi8 6vd045bI0huWGeHZC8JUAz AWHgyPSuBRVdAWW3IZAcbJ WmQ0liQZefGO9brlgnBKD1 MFxtYXJndDcyMFxtYXJnYj KdtGBiUYYvaGvfAKnpf294 IHM3CyEzSH7uG6Ndi0N8cX 9maXRcZGVmdGFiNzIwXGZv hj4lqJTdEWtmc6DsOLU0ws R9rTBmkVFrSESsKL54Gylx q7NsScohBJL1VUQtkfYrz3 Uuk3cyKrZcgtXlP7vjO9Ks ZHJoZWFkXHBnYnJkcmZvb3 Pnn9AaeSLqpJm3l0haRBVl SVLhgHujw4zlNIZ3EXPdL5 S8wEBuk4gfGAuwTUDqvGH1 czEpNOHpuYRgO9FjyX2kFP auTP9fnrc5k2otYfCgBO3v nvtzo8tvBBogGCOfIAZ3Tl VfYSPet9UblwdiHuBlz5Go oUPnAPsdZ34hz593SJAstc DnL0tntRVrdhqycBMhyveh JDmsuuW3PKv1emRzkzocuR xwbGFpblxmMVxmczIwXGxh suhyOFEpETkzE9zgImAkRC SjeIzhEBqde2PlIHUaPGSp OsHtdMMhHPXaWWGOG1UQZL EZJVrSCK2LAWCDKSTLDKfU VEVSQUwgQVBFWCwgTkVFRE tMPAHWL2BGVLkvrZabrW8x AlIzIyHjBxjoQV6cNEFuN2 qsyKFnHRRuGKYsP2jzScVx aS8hlIbzUSvhQfZrJrAoYx zhAPTkiEnfqU9bQlUfFaNu HHhbZM9aZSKvO4yqsAUxKY LwWGOsE9ueUuNhgW8pzNnt MVxmczIwICAgICAgLSBQUk 4IFXQHZBBqPUTOYz6YWGZT AO7DKXJyPQrGBVJWV18uS9 NPUkUgNyAoNCszKVxwbGFp blxmMVxmczIyXGxhbmcxMD KoFObuO6qkBjNeVDYfcYvp IIfge9FwBZVfSHFeLgrcvm IyXHBhclxwbGFpblxmMVxm czIwXGxhbmcxMDMzXGhpY2 xuImOyYNYjpMziEMqzj3Po XGYxXGZzMjAgICAgICAtIE zQGHCQNMyEN9XGNUJdmWof oU6iTiJiZoFbOqyyBB5hBM NnB6phhHWwXDQlXFSyF4hp SiHxhW1ezLmmMWrmLjGdWl XoZpypCJDpfIqovI2vDdKd GdItROqpKI1fEDGiC5ifsW TrHLVdNHDlS3hpUzAwiM8e aFxmMVxmczIwICAgICAgLS TUQARQSR2VJKlRLA0FCExR YDMFN15fUDEIKHONAdM9Pn J0WAFkXOAaIBcjDXYeVSZm MjJcbGFuZzEwMzNcaGljaF eoJGdhEcXrAMCeWGjlZ1dp QuKjT4HxNLSwCpPgkJCfMU BsYWluXGYxXGZzMjBcbGFu ZzEwMzNcaGljaFxmMVxkYm RgMPCxROcpP7peByPzMgQf EFWeRGNqTY2eHALMS6MmCI 4MO9eGNFFcACVZY5EDDNMD BML8GISiX0IxMIiUSSXRB2 NSEYKRWHJZHF0VCTphyMAr blxmMVxmczIyXGxhbmcxMD ZoAAqaL4ibTwCaCFNguOss QZrqq2QxVKTjZVBrWabotf IyXHBhclxwbGFpblxmMVxm czIwXGxhbmcxMDMzXGhpY2 fwVpPkDPOkvLgaQAiyq8Cb XGYxXGZzMjAgICAgICAtIF RPVEFMIExJTkVBUiBNSUxM ZL8RKSELNyYJPiUSFKBKWY XuK15VZNIMIRCWYQJ5CJAi KQ4EOQDmKGreTIKfRRQcVq JcbGFuZzEwMzNcaGljaFxm GGdjRkRjUFOfPLfkX6kpGj TxE9ZsYAViUhVqwABfXQEm YWluXGYxXGZzMjBcbGFuZz EwMzNcaGljaFxmMVxkYmNo QWCnUDftY4wtBmAlQgMpLW EzEJWmYL8uBG8TYWrpPRjZ KIWEVI3WWBwIDHWXFTTKGX 2JTOGALqAKGu8CGQiqHXXW TVxwbGFpblxmMVxmczIyXG fxxuevFPHhTPipA4whNoYe SXWvaYxjLCwlr3LjJRTfFX NmMlxmczIyXHBhclxwbGFp blxmMVxmczIwXGxhbmcxMD OcZYbhW0gzHhDyMIHgzVbb CHgex2TeIDBaZVGiJqQhVN AgICAtIFBFUklORVVSQUwg RS1NQXHJP62rQi3OYSrBPA 0UMRHQZVTtgUkoyT7aHhEl PaExIklrRT4eELDeZ5aroF ZlABOnPMGaN7qcXqMntY7d aFxmMVxjZjJcZnMyMlxwYX FhOkruHvYrzLbvxM3fWtKh ZnMyNFxwbGFpblxmMVxmcz CuGUjqakmoOADcHTdiQ5xz OnBdBLWojAznAUvon4RfBC MrNAKyVqAzdET8TOUbJ3Ng XHBsYWluXGYxXGZzMjJcbG FuZzEwMzNcaGljaFxmMVxk ZgJwTENeQGlsY3lyXiLdH2 YyXGZzMjJccGFyXGZpMFxw iIVxrtdvYAmqsuA6KTPdHS luXGYxXGZzMjBcbGFuZzEw MzNcaGljaFxmMVxkYmNoXG FuJAqgH0qnYoUbZcRpUREY ZfLQNn2SATQDJQKHMOPFFZ pjVKJPVVELPPAPVtXTVY9R NGlsGhUYOIfWLKEFR2IVRP qybEpddT6vTzYeQpHvHkrw CC5zSMJeB5thiIBpACGqYX TyL1pmQfDkgC8bnOyhJYui ZjJcZnMyMlxwYXJcZmkyNz MzcKstvD6aGaOiUaApQJdq bGFpblxmMVxmczIwXGxhbm uyEIBhDSioS0umIiAqWXSm aEwdNMguq2JgDJCuNJOnSe LzIBNYPv5WDEWNEOYsKUIG Ek2XOEWQFC4WQIBhWTiKHS LDH52hN0HLZcJqJAMjWGyd VSeplFlqwC1kLnQcLgWtGd sgOJ3qRLIcF4ivkVXjSSUs EUYkC0hyMzYxbI5wxEidHX xjZjJcZnMyMlxwYXJccGxh pE2uQoChOwHeFUtdPS9dOM KoB2drsQBhFDTqUDTuM7bq MzLheU1esUnvQCzwoyXaQJ 0nB3MVNELrR8OYPNGwWLxy bGFpblxmMVxmczIyXGxhbm raEGRnWEgcB3tbOcEjMJRm pPdyMMulj3SuSJKqVQUaOn xmczIyXHBhclxwbGFpblxm MVxmczIwXGxhbmcxMDMzXG gwM6rzXlLiTXWbwTkdUQjq z4EuDHAoCFMjEwFbWALLFu SOTVRKT6UNPKZUEJTTGE2G CZEmBZQXM6NWYBtcaCYurv xmMVxmczIyXGxhbmcxMDMz HGodG3vuEkLqSHUqyWdyUG atm8HhYFHkSLMpIffulqGd XHBhclxwbGFpblxmMVxmcz TwCEcqdrpeZUHrWHgdD8az QuXqTBWsmJyhZEjpg5BrIS FnXEClSeZmVCXZEW2OSuZH TlZPTFZFUyAxIENPUkUgQU 5OXOb2GXZiC8YqBCnHXZFD A4NVPUDCDBSHFV0WKYoceW FpblxmMVxmczIyXGxhbmcx EBToKCpuT9dyFaAiQCGifI xhZJhzd5QnTFYjHTYqPxoo czIyXHBhclxwbGFpblxmMV xmczIwXGxhbmcxMDMzXGhp G9twChHxCDQpmVdrXIjyc6 DzPUXmWWVrXjJtEPAPW0EX CHMATW0VMQQyAMiYEUtZWK CKAwPgZ9UzQwGLYJlGLCVL DwHjZHqAB5KHAvYjAKYZCU xwbGFpblxmMVxmczIyXGxh vlpnBIMrFKnoH9eaYyTlNA WzlSjjYPupe2IsHUPpBYZj MlxmczIyXHBhclxwbGFpbl xmMVxmczIwXGxhbmcxMDMz LMulB2xmNuOhMRVetYfyEM hdx2JaQTUuGPFsWoUuCWPD S6ZWRODRNH6CRAZdHHbNJT pKVUUNNgCpP7RkG6CAT0tR Z44EEbEeUnQZNZauqHAhkz xmMVxmczIyXGxhbmcxMDMz HVyuB2ybKcYgLPEpwBveRG qlh5PyFWSxRLRxNfxbmiOy XHBhclxwbGFpblxmMVxmcz VaAMhzmzciLJGjGTbpH1tg XwPxHAOctTvvNGawh7UlUI YxXGZzMjAgLSBQRVJJTkVV DuMZAYjKNxRGRL7YOG6SHE BJREVOVElGSUVEXHBhclxw YXJcZmkwXHBsYWluXGYwXG QzRkJbgBbypP5yRlKgAvBo PGetFO8aBFMnS3rffHKjJP IsHAOdW2nyDhBfaN5dcEwz ILkykrJfGNJuITBUT4PDMF ZKRMqNQZ6BBPBQRMEGAUgX VEVSQUwgQkFTRSwgTkVFRE eTZWKKK0XAYQwwxPyuhK2x PmZeSkYkZljbHP1cZOTuM0 ionGLzCQOhAIWdH8iqGjDr aL0kqDtjLVokJpJhOqYcYw vsBROjGygbXuNqrKnntF7q ZjBcZnMyNFxwbGFpblxmMV xmczIwXGxhbmcxMDMzXGhp M9uxCkVkIOHaxPqtWAivg0 RfYWXrQMNeRbUuAXSAZl3A VEMHBCVtIQDDYw3GOWARSY 5AQADlEBzRIQATJ29pB6IM UkUgOSAoNCsgNSlccGxhaW 1xAtEbTbFwBtjkPQ9fXQVg P2unxRBrXBMgDFCyQ4csYs JwqN6drWnzEHghCmCqRaDr UkkvBSEkuGowjI8uVbBeYe SwNYurEZ3bAXQgV4xkaJPy FEDkQUXsC4lgYyQerC6pfI jyTWihetBxWV9wZ4JKQSTb U0GBWCHbWYdpaPNpljgsHB xmczIyXGxhbmcxMDMzXGhp N9nqZeUyBWPkzQidYWhyg1 NoXGYxXGNmMlxmczIyXHBh clxwbGFpblxmMVxmczIwXG jxkysxWZThVHviF6ahVwBd XLYoeYytGDpbj1HzMWJyMQ FsFtIzMMVUZP8PReFZQvRK MLQHTcYyIVAAJqZfII3ZFT IpRSQcF8KnEUoMRHSSI6BE GZDWBDCGVS9VTIcfoZLqlk xmMVxmczIyXGxhbmcxMDMz HVdcO4qeOlRyFAMxjWjlUB fow5PuVOOoVLUkLzjuiuAi XHBhclxwbGFpblxmMVxmcz WmVHtgkfggTYZjKEaeH9if SaKsQDRwkDlmDCpie8NfXL TrANViGlGxWCFGO5ODMCXJ ZR2XVBRwCQtMXPaFQGSMUh DqQ3VhPoFDUZmUUZSQJbTh UTxGH9HASpVwREGLIYdizF FpblxmMVxmczIyXGxhbmcx EMIaYDwjO4laUdKzLHLkuX qwEHgqy3ReCIEnBQDuPago czIyXHBhclxwbGFpblxmMV xmczIwXGxhbmcxMDMzXGhp N7hjWvAbOQTmsXdaSWbey9 UxKTZlKQHpIaDtSDKDR4GB CYCQLV2WCKQkECbJPLpPVT TYJkMnW8NwB8KZG9sPX58B EhP7HE3NZFMjovQaIVVZMp jIISHVXNnuWT7OGKIKP82q Al1ULCcDPS3GBLHISNGrsO axgB5gPbSpDjXxQvrhTP3s CHLzO1lqrZCcJETtTCQjY4 zzXzBxcH9bzEjyOUlvCwKp ZnMyMlxwYXJccGFyXGZpMF qioCWgtdtgNIobwiB1GEEw YWluXGYxXGZzMjBcbGFuZz EwMzNcaGljaFxmMVxkYmNo PQUiELzeN0pgLzDmSvWhMB VFLqQOIm5MHMLQJGIWVFBT RCwgTEVGVCBNSUQgQVBFWC rhIaITKRjLLWGCD1PDPImh lOhgwQ6nYzPvYqFjSpzqBA 5cIOKjD3ztcGVgWYYeRZYc H5xvQgAtdL4diHluEYcwNt JcZnMyMlxwYXJcZmkyNzBc xPyhsL0wOgJaEtCjLUxadK FpblxmMVxmczIwXGxhbmcx AWHzNGgyF7lmXbVjJFGvcF yzLKmnq5VwGSSnKEDwWmAe MDSSOJ0FY18hERIDQ2WOYA dMDPXWL1LWDQKDAHJOLXPF Hm2FRHFmGG1TBMUKHSKKAG 9OXHBhclxwYXJcZmkwXHBs YWluXGYwXGZzMjRccGxhaW 3mFcTpYtPsLXmrRF5gJQVo T2vecGGxADAqLRUfT5bgQz YvqJ7qmJgyYWcizoYoVZPz AMOGM0TKFLPXIGbBZM9BKB THXQGVIH4NMAKZVUBnYB4Q ODQEHIJKNI7HN2v7OODbFO luXGYxXGZzMjJcbGFuZzEw MzNcaGljaFxmMVxkYmNoXG ZzWTbvJ1psMjFoP2RhVSAb MjJccGFyXGZpMjcwXHBsYW anYLFcKXXhBoGwbXxayS8r TtYsAtMlDAzmOJ0hBOQhJ0 lxrVNaRMYwGRHnX2gaGrKc mY2xmPwhCEwlsfBiDO1dFN WNY0GGJSbVUYTBUX6NB3HP L2xPP90UFHSWQTZVA42NLJ ULD2CBHNemMZGuPCVkNUPx YWluXGYxXGZzMjJcbGFuZz EwMzNcaGljaFxmMVxkYmNo ASQkVAkcE1inSfOuW3WqIK ZzMjJccGFyXHBsYWluXGYx XGZzMjBcbGFuZzEwMzNcaG ljaFxmMVxkYmNoXGYxXGxv G2kuAsVtFxEwBEVcHAoUIV NVBIlML4INJVDspUhayW2y LnOlRkCkKdhcHK7hGJVcJ7 ytkUTgMWNvAXNrH3ygFxQg xC0inAcoFXsrFgZgWmQgOz lnTYJviAoadS7xYyPsGyNd NRqbTU0iESSmQ2uqiXIeKS HjYQAfZ2jsZdWwbK3liRdh DKafpoZxOD2eOMLPF0PuTC 6FD7qZORBbQBOHO3JAQXXE RWOiTLJmW4UzLXgBCNJYE7 ZTISMBABCBBM5THMfcsPAs blxmMVxmczIyXGxhbmcxMD DgLRcrU0ptDgDtMZEcjFnd IKhwr7IgKSGsFLRzTungvs IyXHBhclxwbGFpblxmMVxm czIwXGxhbmcxMDMzXGhpY2 jeZyGlPLGelPwrVXrxs2Xy OUWzJQQoZeOcMEUMC5JQUA GKAS9GFOBtLUiMHQiVEQJC XfFpX8RmKkDCEJzPPHYSDi MfTSyXX5QBDgTjJjWMETql bGFpblxmMVxmczIyXGxhbm ijTAZiDDxrX7xtKgNpBQGj vUenIVzha5KjMIRjIIMxBr xmczIyXHBhclxwbGFpblxm MVxmczIwXGxhbmcxMDMzXG veX5omXrZaMCGesLfnGLxa h5EfBJSjGVApYuFtYQWEX8 FOCWLAHE4AFBJwSHsMYMpT CAPXAiHuG9DmS8BLV2pRX5 2KDaUtChHiIR4pyPmcnH1u ZaZyPqLkZvlbMD2zMBYkV7 jtkQUiHHRbCMAzZ2wzMyXu qB9ndIxzIRsfBeVpGcWiZj pmMENzbXzcqS9iCuGwTtTb IUgjYB1cZAGoP2oacBRhST IgNRHcB5wcExHifH6jeCfu YHflqzMpSI8iXOZXBY8BHJ ZLOVLUHxKIA6aPPnXNY3Nz SURFTlRJRklFRFxwYXJccG FyXGZpMFxwbGFpblxmMFxm efP6MAUaGHtpMMSsGXJeNg BcbGFuZzEwMzNcaGljaFxm AWjkWzOzPGXrHMnuT1taFq NmEnSjKICMMmVDNl5PYEVV RSBHTEFORCwgTEVGVCBNSU QgQkFTRSwgTkVFRExFIEJJ Z8CLACvhxTshyU8zIbMtQu UmLqnhTL7aPSKoB1onhQCf GUPoTADiK9hlGaHfgQ4isH xmMVxjZjJcZnMyMlxwYXJc cGFyZFxwbGFpblxmMFxmcz A2IHKjHRiqKLCrRDRtGhJl bGFuZzEwMzNcaGljaFxmMV hdLmJpRMHpAKbuY2jrEgQg CpKySFAuCRYwTM0wLlQVQU wFYYRHT2ZVNZEIOhBEJUQU OBVwbBZkBERuVidhRCi2wo BhclxxbFxwbGFpblxmMFxm ohF6AETgLGvqEVPxIIBkXo BcbGFuZzEwMzNcaGljaFxm RFetBaQeBGKmWDwzF9geZg FcZnMyMFxwYXJcZmkwXHBs YWluXGYwXGZzMjRccGxhaW 7jAdNeZgKhVHmnMY4oSZDp F2tonXMvDHWlXBShF3idHo CejE4ejAibCUlrywAdUFis KKSFX5ZFDOULQHgJNB7QAF BSSUdIVCBMQVRFUkFMIEFQ XRfjSK0VRTOCSPGUHA4OO3 c3QTTtUUicIKIhDNCrAbKc bGFuZzEwMzNcaGljaFxmMV agZlEiXUObNKkbX1ytMlZb V7OiMTZeGbPpfENjRFUnvx OiwVebuM7fHbEqSpGoYDkl bGFpblxmMVxmczIwXGxhbm qiJOAzUExgX0gyAxUeRWXx fPfmSFawg6WkKGTrMRMtCf AgICAgICAtIEJFTklHTiBQ Aa3DSZKTVFRdOAbZX3CKLR rULPkmM7cBX58EMbEQYdJL WV3JZVCFR94cwKDbMHTdEp jqGOq5fuZzqkwprBhkcNGg jkyfQCcelkV7DNUiRWxtXF YxXGZzMjBcbGFuZzEwMzNc aGljaFxmMVxkYmNoXGYxXG cdU5poUpVoZoUnHXdgTVCg ZmkwXHBsYWluXGYwXGZzMj XemTnbxH1iZvYbPcCyUHhy WE1hQAJpY7gnxXWkKRFfHO LrP8icOpAyeE9nyGowMWwu fqElWTecEPRKQ7RJNIEPCD fNSD1JLYOAKGxMIXWPLHTF OnUKVS3QWGfxLzIEHKaNWQ RMT1ASBImbqLqjqM1wTwHp EiNdEdhlDR4rFWUkB2iquT TiZMTzWUBaX9leSmGxiI3u aFxmMVxjZjJcZnMyMlxwYX RkWaqmZaSlhVizdP5eSfJw ZnMyNFxwbGFpblxmMVxmcz NeZKiymgiqBWRmANdyN7ch BoZzHEVobHecECqvg6DaZX ZvNFXuNjRdBMIUMm9IXTFM HHFhQIAPTx7ENQLZJQ3LAL AvTSfMYQJYJ78hY4PCWhFq XlTyPhucJvdqnJavlP9mOr CxXpTkIbadTQ4tAVYoE7sv oWQdMBIlRBAiR9hkIxNrsD 9jaFxmMVxjZjJcZnMyMlxw SFUnfKdhiV8pCzZpKuAyHK blAL8kAFZwP5teoNXkVFLj DOFfO9liMrAfjO2hsRolAQ smpfEtJF9yJ2AXIVIvN4YE VVAgMVxwbGFpblxmMVxmcz DfOYugcywbMFGaWPyvY4bi DiFbXWPtaVqvCLdch1XtBV YxXGNmMlxmczIyXHBhclxw bGFpblxmMVxmczIwXGxhbm fvDAXdUPdjR3qyLnStKVMt yNrvLWqpl3FxAFHxUIKnFu YpHNRCGM9QUgYAOkEGIEVB ZgHeEXUAIpSbQY1VVEbxQV IIMiENYIVwQXuRC8APPCTX BB2GVgPGPCErJOlbFBIgYK ZzMjJcbGFuZzEwMzNcaGlj aFxmMVxkYmNoXGYxXGxvY2 xwThKfX8FfJPFfYoAgcGFr XHBsYWluXGYxXGZzMjBcbG FuZzEwMzNcaGljaFxmMVxk BwKaWHCtPHuxX4sdTiXcDo MyMCAtIFRPVEFMIExJTkVB LrXIXOxLMI8KGZBIPaTMHq UVKXWSCRSfO53SUJAXXXLH DZD8YXE5OP9ZASQzSKvoNZ YxXGZzMjJcbGFuZzEwMzNc aGljaFxmMVxkYmNoXGYxXG ovT4taPiGdP1MtYMUpZvQk cGFyXHBsYWluXGYxXGZzMj BcbGFuZzEwMzNcaGljaFxm KWoyNoKdLTSsWNcvI0rlBs FcZnMyMCAtIFRPVEFMIExJ XgNRGxMHWVuPQX4UASVYMs MTJgDAWZAGXM1APNT0BWIv ZN3qhRtcpO3dQlDbKxAnDv ynQK6hPIQoP3zsiJRzZYOi LMCbZ7gdHbRohV2haLdnRL xjZjJcZnMyMlxwYXJccGxh vA0uYzMvZkYyOPoiCR3eXY SeV4rdxSDoKJLjKCZrH9co YgLrnE2lgBpyODemcmUmVW 0mTRWRWR0MMTXSOBJWTaBC A5vOHiTJH2EpCLBXLeLMCu lFRFxwYXJccGFyXGZpMFxw tCZkmzrkFLkaplR6HBDnQC luXGYxXGZzMjBcbGFuZzEw MzNcaGljaFxmMVxkYmNoXG CdTOteL1dpAeEoXeWbSHLG SqMUTd4JOENPNPJNUEEOZK wgUklHSFQgTEFURVJBTCBC QVNFLCBORUVETEUgQklPUF NZOlxwbGFpblxmMVxmczIy KEditgboPHMjSLusQ0kuFw FmWDYgfOvxIZjpj8FmXRMt XGNmMlxmczIyXHBhclxwYX JkXHBsYWluXGYwXGZzMjRc dWyjvM3sOcLcDeIhSGgrGY 1cUGZnU2omuVInSZLwDQVt I0btHjCrxQ0jhCsjULqqhv KjJWFfFCLiPZBGVY4PP46q UURPZ0KHFFvUBNBOY9TNPU LLHBTVRWKNVz3TBHTyDX3A IJLCPIZLCL0AQFIxqsdsmK Z1NZyyoJAsVEBtxCetyXhh fS5zPaQfNhNiPQkgpTCcfv xmMVxmczIwXGxhbmcxMDMz SRvcF8jvVsZrPPUdaDqwBR kwi7JaOZBpQRBlOhXtjIIi XGZpMFxwbGFpblxmMFxmcz U3CWIaIUtfTBZcHRQhDaWm bGFuZzEwMzNcaGljaFxmMV dyIrXxEICxSSrnY6aeEsNu UyCbOCKOZgRGLy1DXYWHOF BHTEFORCwgUklHSFQgTUlE TBYVMAklJE3BOTYPIUPCIP 5RD6y9WNMzKNhmAZAfLTEc MjJcbGFuZzEwMzNcaGljaF bnBRxxXoXqGEGrTDllY6eb OfBaD4ZfQPVfFoOalKLsAU ZpMjcwXHBsYWluXGYwXGZz NkIzmSgbgB2kLnAnNoDfOK kqES1pRLDvL9mfjKAqQUXs RHAeW3laMmDnmL0faJfwZN qsvsPeAQ3jKDWYM3IIGRmH QXJKQV8RC1QPT9xZS24WAX BTYBOOV80MPRSFA4LOFVAy KDMrIDMpXHBsYWluXGYxXG ZzMjJcbGFuZzEwMzNcaGlj aFxmMVxkYmNoXGYxXGxvY2 oqJoVkE3NbPLRtQjYzsKOn XHBsYWluXGYxXGZzMjBcbG FuZzEwMzNcaGljaFxmMVxk UyXfLWZvAKtpU8vhRdYnFv JoATEcDSyEKJVJDUdOU4NE LRYzbEvgyI3iIeLiFfJoZa fdVL1mWTWvL3svsYIaLGRb IWEmN9xmVeSiiJ6fyBagMJ xjZjJcZnMyMlxwYXJccGxh vL5nHeXcZoHrILdrMM3gRH TbI9rcyGGdDJJgAKJaE8fk XhGbfB5qsYlaUCnkrmKtZG 9nANXXV1KcQH1YS7aUSHOe RPDYI2TGIMXOQPQ1TPHAWd WVQBUcMMdPM2ZEYQXZYY4H TkVEXHBsYWluXGYxXGZzMj JcbGFuZzEwMzNcaGljaFxm LXblLzLhPGRgGCvhM0ueFt CeM4TqWOLeOaApnSClADXq YWluXGYxXGZzMjBcbGFuZz EwMzNcaGljaFxmMVxkYmNo OPWhGKnsI5ioAwYiGnYmIG AtIFRPVEFMIExJTkVBUiBN XPvAIO2OELEEOyKAXnYZOL RWWUJoM79TSDIRTJKZMDH0 ZFA5JX8LLAOyMZabXEBoRW ZzMjJcbGFuZzEwMzNcaGlj aFxmMVxkYmNoXGYxXGxvY2 pmXtJeG2ShRFScYsZwmTLd XHBsYWluXGYxXGZzMjBcbG FuZzEwMzNcaGljaFxmMVxk HmAnIOKoTPyiM0bgEdDkYo MyMCAtIFRPVEFMIExJTkVB ZvVZFCrWQU2JNLEJFtBKQl BBVFIRJZ4EOSP6BIEeBW2c rXtinR7uQoMwObAnUvnfCD 8yVIHgG0sijHOvSFIaUUDe D5fcOvOkuW9crReaGMeoMb WuHyLlDdetVZPnxVuchF0h XmZeXhWmERsmDK1eETIhI8 lxzAVwQQQrJSWaX3prSuQp dP4loYyrPLhowaMuDA1wCC VXCX2QYLDZDTLZZvCLW8rS MqSNH7XaFKBXRxCZZtyNRN xwYXJccGFyXGZpMFxwbGFp itxjZRakqaY6APQdSQuuTD YxXGZzMjBcbGFuZzEwMzNc aGljaFxmMVxkYmNoXGYxXG kuV5kxQzKwDcJiIJQSPgJB No5EWVNIVBSAPGYUACiqGg kSNGVwRYmZCO7ZZCnuHzIA POfQKSLJA1TZNAhbsGajaB 1dFgKpSyUoHnyhGR9vHECj W5kyqYCrDIHaTPHbA9nuAh VujY6anCgfJIrxAoCjArXu MlxwYXJccGFyZFxwbGFpbl arRYharwS5TTZaLGlsIDNn XGZzMjBcbGFuZzEwMzNcaG ljaFxmMVxkYmNoXGYxXGxv Q3bwBbWfMyHxZTUmGFQiOH 4fVrXBZKtMJYPSR5EISQIN PnLDSWXCNZZuCD7OQCTRIa 9DSFUzSJ0SYLEJYQAZUF7N XHBhclxwYXJcbHRycGFyXH FsXHBsYWluXGYwXGZzMjRc gFjesK4pFhQwCmLtCTxtOL 2xITCpN2fzzPSfBYJsHWVt Q1qhXsVczF6xsAjmDEwpee MbHAtgDQLWB8HBKJIFDNaI HD0IIYUBNIdPUWLFPNHmDg ANUBrfPeJAJKqBSYVMQ9JI CLxorEhchE3hTcWfQbGjEr hkSD8gLVClA4lemFDnAKNb YNQnQ9whCwPhxF2miNwdDH xjZjJcZnMyMlxwYXJccGxh zY1vWwZfDoWjUTkwNJ3gRP IsV3lvcPFeXIPpVAKuH2qr RqHxiR3fcYhnTAuwjpBsRM RxVZMqRUNAKl8HVXJUYOQv TXTZXw4DQHVJZE2RAAGhCG eCCBOTO83eV6XNCzZlKgHp MotxZqbsuDqpxG5eJmGuEr WpEkamUF8rOBXoQ4yvzLBb MKGyFXJmS1azDzJjiW8pdZ xmMVxjZjJcZnMyMlxwYXJc JcipOzOyzXzphK9gPvXgNa MyNFxwbGFpblxmMVxmczIw WTknnlzeMDNpKUksD6ypXb VsFFIacJfsIBhpi2SqBQPj XGZzMjAgLSBHUkFERSBHUk 9VUCAxXHBsYWluXGYxXGZz MjJcbGFuZzEwMzNcaGljaF pxQWeoVyYvFIRrBXwzF9kp UsAbK9ZzRATvGdMkkJKrYY BsYWluXGYxXGZzMjBcbGFu ZzEwMzNcaGljaFxmMVxkYm PhIBCnJFicH5zcBlJbIvSd RDKsGGASOZ1DVVaSCf6CUf OSBGQjW63GYWKSDgPaRSRe X2ZlDDrXOWCNU0BZGUJELV VDZU8USWupxOMxkxrcKDof czIyXGxhbmcxMDMzXGhpY2 qmTaIzEXSrmEgoICqvy6Gg XGYxXGNmMlxmczIyXHBhcl xwbGFpblxmMVxmczIwXGxh mognPKSmCJthV3qvRkKhQF WtgTwxDReft2PbHEGfAWPp NeQkLTUFV5PCQNGTHO8RWG GvYZoFZTyIZSDGMnLhY9Cs TkVFRExFIENPUkUgVElTU1 VFOiAxMiBNTVxwbGFpblxm MVxmczIyXGxhbmcxMDMzXG mgP6glTuHjPRKwrZahTOvm c1RzDFWuNURuUysyedPsGZ BhclxwbGFpblxmMVxmczIw JNojbpttJECaKDpjR6vbMe OtYOEzgTdoFZwls4RmFSJv LAJlJbHwQNUIO0LEPHRAVE 5FQVIgTUlMTElNRVRFUlMg J5EkW1DQY2pYN90KPnYtTf BsMR0zzNhvvJ9sPdZvPmLk UjqxBS4uDEHmD7fhrRQxFR VmRIJgS9xpBsVpoB1bjNus MVxjZjJcZnMyMlxwYXJccG tymQ4iGmLnQfIvDGfuDG6w RGCtG2qguCFzWPUpBYMyR1 dyAiOaoL1ufWxtBVwdaxFv XK1qKVLBBJ8QYUVWOJYVHf UND5fBZiWGL6FyGWQDXmTE RklFRFxwYXJccGFyXHBsYW luXGYxXGZzMjJcbGFuZzEw MzNcaGljaFxmMVxkYmNoXG GqFEhyJ3fzUwMqA9NlRTDj JpTgNiSjhWWrhXGoD1eemO mjhkwiBHZMKXPlSIxeBj3a IWDaGBX9CzAiMUGLDQOsKJ luXGYxXGZzMjBcbGFuZzEw MzNcaGljaFxmMVxkYmNoXG DxJBjhD2koWfMvXnYvXXEm NFxwbGFpblxmMVxmczIyXG vspdzsVMLfTFqsV6nbSdBm OSAnuJusUNhsx1RvVPCbNB KeVipogxOjIXSndl99PMM5 LgOfu2A4HNTeNgMvYJImUU 7brFkiNKYhCJ2zSAUtF1lw hD7jvfj9HgKnVDDzSgI9XK HyhmG4Luq5PSXjLKhxc6nx j4MzI1MdiYUpvTz1f2plPU RdZvF1rQQuCQjgG3caxlFh oNGgREOhWAf7hGcaBtKfMU Ddl7ugxwYjFbVrVFSaJQWl YBXcqAphfgv3eE89YLDptX 6zjYIsXBjmqtXtGqW5LMmr EMZqHcX2FSDnbFFqACEbA2 xyZWQwXGdyZWVuMFxibHVl BZC5rTcag2H3cHWutMAjyY rwMyKjTbEaXPFYx2PzGXm2 kSdmQ8DcYRAnUiN4fJBeCD BdIAqyWGQiKOXdpjW8jC66 OAeeorN9dUTcr8Qbj28at8 56fB3jtBZbPEE3OADmVGEu vHQuQJGxJVE7OAAqwTHcH9 xyLXPzOK0dnjrkZJumAGyi WDQpnXO6KZNmbNRkM4SiZP MkFKqpVPVmvoi3XiJvDv8e aJRaeDbdAImka1lkn7xdtS XnAmn0XRIgAlBvQjqfXRdx l8Ads3btSZEcms4aIZT5nJ ZpjWcdz3L7gJLoSQZsdHZf goFpGYLlPlH8AUbqMZ6qrh 33JJPhSGY9dk8llDFtvKtd itAvhHXeVDviT6HxHDMwj3 94IBOhU1AeFUBps2F6buVd KsAqDTYteDT9ynO4UJPeHC n0vKOuivQ8ewIojZTyT9qi kE7wUYOaKI7fyxypm4ufUC rfJZghGBBjfXS1kjL7OFJz wOOxC0TkqV5wDYEiDFsgZR Uunbn5ToZnCd8caYRizBnz MFxzYmtwYWdlXHBnbmNvbn RccGduZGVjXHBsYWluXHBs YWluXGYwXGZzMjRccWxccG vduX6yNkItFuXfZXyiFK1c ONSiU3oqmCUbCKGtFQThA0 xcJzXbyX7wxCnhBXojUlVe ZnMyMFxwYXIgSSBoYXZlIH MusuEhvhWnlKneceC3oPZ1 ZWQgYWxsIHNwZWNpbWVucy 8prKpwSUPsYI9nMQVykdNc IOyfyKipMGucNBA8MRJyaI VudHMgbWFkZSBieSByZXNp OGHufENbIKTjbPeeg3Yxi2 QxqOV0eE1xj2dax6EyJJSo eYG4BJ90yuL8zU6wJAQhKC 0kNXGrKV2dbIByyBVbGZIb t21rgYdqvxXiNCUdheEgFD BsYWluXGYyXGZzMjhcbGFu ZzEwMzNcaGljaFxmMlxkYm QbCERwHAcvL2hqFtJsXzCo DEjuNWS8yZ== Clinical Information Left lateral apexLeft (test code = lateral midLeft [id number]) lateral base Left mid apexLeft mid midLeft mid base Right lateral apexRight lateral midRight lateral base Right mid apexRight mid midRight mid base Gross Description (test [id number] code = [id number]) CzAHCop7euZRDpcDIlCeGt MzNcZnRuYmpcdWMxXGRlZm Pbu7jhr710lDYbw2slVDTg ZhA9qLJfWQQuqKWbU335VI AwVFmuq9bvw6SwPZEroIGb p0M9NWCBhdjjeRl6q9mjYl BvYyV6qRIqQDtyT9pyhwUo yKJhIACsB8WxpvDZMCZaFd a0lNaaQ41bk0S9QycmS6yg ZWQwXGdyZWVuMFxibHVlMC K1PAEwSWP3NSiktcAguhC6 HMtujJIuAlC9UZa8w1njeL drEZPbUMN1s4inRAwplxIc VN9eel3efTg5h2uocyYfAC HzTLBkmOWKNMPsQ7FlpVfr Vt7aqVa4nHbiZkkySXK2Nd z9JW7sit26ztw8hNvnRUDi zqawWqD4ZZtmRJNakycxVE o2CMesNCVviKTsSEDunCKw A9ByFUfhMQ0sugr8IoFhQX 0ipsdkHUovRINeZUI2VfKq HACfr6JvfsgbZnKnro2rax 39CGJ5f1EcfXdbJLE2ASQ2 YmJqKy4fmSFrNBOgOK8xMu NhdSIfTFDxyx80xOukJOkt usPnjH8fPjUsRJZltYCnUR LaPL2xxTYuEIGfhD5tvowd XHBnYnJkcmhlYWRccGdicm TmMn7ovVobQTD3SXoeJ8vx xF2hViA8TTvhS0pmiN9lKM b3HAyljQQ9BQRjhY7rYS7a jruds9azWJB3LJmjBWXvuz Z4roIdEMIlwWLiF6OcyC02 TsDlgEFyH5TimN2iNHdzCX Lvfyx2DsVbLf8dqEEtuMZ6 MFxzYmtwYWdlXHBnbmNvbn RccGduZGVjXHBsYWluXHBs BKyxQHZsSQEmVtTxs8XyGF Pjx5elOhDia1soxEw3BWik iBotzMHrkbwsOLjgtgO0KO BsYWluXGYxXGZzMjBcbGFu ZzEwMzNcaGljaFxmMVxkYm ShUYRxAWiaC8ljKxDqIvOb CLZLiVWakB6fwjVNRHuvHZ RuY7IxfpTqPLxeOLDyxl5k jRjpCKkhWcBkFYFoa0f3lP V4eEWuaIV4nIRjhFkkWB1k nMKyIEFNPP04nJBigewpZz cuYvMaiYJ7KXOweIOblGX6 FwDxcjXxL18pz5vyvXRvk9 TeKFVrsR9jtTAckHUwCNxg ZZwqQ83aUWDqCO44VMgdBQ 6iAUpfVM1xRDYsNEP6hEji aCBpcyBlbnRpcmVseSBpbm tlZCBibHVlIGFuZCBzdWJt tGM7RWJfrV4nkX97zbKtbr RNRQ1lrBXjISCzQOWbaXUs SBLgaDOjcuCgAFh6RXWojL 8aMk7wdPJpoO1asCSmYLuy TNT3bENuOXGuCLKmRMPiFE 26N6CaqeAtRXzfFMzvpiTo YmVyLCAibGVmdCBsYXRlcm DrLK4kDCLnQI1zPELlsxSe c5KdAP7mMLUly7qnE8emLD Pygk4emeL0XXDwolClZNWz NXO7QRGoPJ8mClJqM61qMZ doaWNoIGlzIGVudGlyZWx5 LZuzf5LcJFYeyAGuNM8pMN X6Yq5ejINtFWGtxwK9r1Rp BTlfPVPfUxmvGIMaB8XuT1 usNP1tGjAvrjHaZGTvoQXw CTPvaaTxb2KeOQcllwDmIT JlbGVkIHdpdGggdGhlIHBh kCevfnVbxsNmLB6aLEIVWK HuvQ7qWHPfVJDxPAC8HGet fCGpYOioAnGhVVVdTQ2tCW OqiiOyb6DrGM1pKFYav0gw U6omIZIftr7wrhB3JSKult KoOWDaUmE7LXUyXFT8FVBx FYLsvAiji9dnM7wgmQSvHJ 41yADrzWzoeY8kKSZnGvg5 UQBgvnUfk0NtyRy3nWUvZR jaYNBdwD3cyQ4mCvDdCLEw wxEYfCYbsN4ijuHQGBceMP YyL9IrvsBhDMjlVYYpda6k kDgiDNmpAmHmIMEzb5v8kG F5yIDoyKM1lVMkpOxiOL1q gOPqQOAFUZ05rLLrpqueLb xlZnQgbWlkIGFwZXgiIGFu PPYfk88ngUD6avAdHpHwDL CwvsslDJX7QC0qD6NjjBGx t6YvFSryClNnoSEzUnLshQ DjEgSaZ02cCVxctCVyWWzg LAWzbWzyXPd4EImpk5LkVX HvmGEdQK2eJGP0Gl6fcQSv BMLqbaG2y9SrEJelMSWxSz fkLHEgR2YrW2lkSW6xGZOz cyByZWNlaXZlZCBpbiBmb3 JtYWxpbiBsYWJlbGVkIHdp dGggdGhlIHBhdGllbnQncy CiBE0uKDMYBDOkkG1fJQQv XKIbUNG2FE5jRJDnrCJqYE GdFKKiz25koBP1qhEdVnIm WBHzurhlXDH0MY6kV9AwfO Ljg3AuDVqvSqVdbLSiFfAw yBYtTdGbG33yGJrqcIZoMC svCBVmxMiuBYu5OLolb5Wb ZGNvcLWjVG1yYZR5Qd6hlI EsLLGzxyS2y1VxENfiHFOt UuzbIQUpW8TtA7jfTA4fXi BpcyByZWNlaXZlZCBpbiBm k2FoXWscqqApBTUpoJHmOC dpdGggdGhlIHBhdGllbnQn gqDaWS0mUUUTPTIgbP6eXX YoIPUxFQW2JZ8rEBFvUBNb CdQdwwQnY81pv9qemOSqa6 PuKBHxaJ8jrPUxuRHxKGaz ZQurT63dMSLdIO39FCjaHJ 3gAUpiKD2cVHTtVZZ9iQex aCBpcyBlbnRpcmVseSBpbm tlZCBibHVlIGFuZCBzdWJt qOU4SFVdbV4dhA33jtDtnw CESR1gpDVqPFGiCUMjbCYg APbxzBJuwbJfCLr6EBYnqH 8bUt4jfAAiaB6dvZEdMCsb TKY1pIZiBCCrQVGjKLOaRZ 54Q5HtvjAqYQwuVIalouNv HhMwGHHuxebniVMskAQ1WQ YnwTGslOO1OhJypqUqF10m d6vthBThf2IuOUXtmW5hwP YwpBCvLAfvHHklV07kVYZq Ul7rWAgbNQ1hLWbqAS8mOO HoLUO9iCxulPViheBchiXx cmVseSBpbmtlZCBibHVlIG CjIAFahVSqtWZ1KBNoaJ9m aB96qqCracCTFE0qeOFbID NwZWNpbWVuIEggaXMgcmVj FZn4JBVyuB5uSf1nqWGouS 9niZJrFHalIMA6oGQiLPYt ISNfNQJgWT03J1SahxMiQY wgVUggbnVtYmVyLCAicmln wZNkyHZ8VZXseOOpoPTjGW UvTEHwa07ooBI9jlIbKjLo EJSnpogzPIT8AF9yZ5GnqE Khb7UnFQbjHgkenWTrYzTj zMKyEkXpY84tPEbiaBJvKG lrFAIwrPskTOm7UItpj0Ge GMZybVLaUP1fYJS8Ot7csX JgHBOdteB3d6QmZQgjOZju QlajJAFdB0XfD5esXS1zFN BpcyByZWNlaXZlZCBpbiBm s4HsRQtpogHxYYHvoDTnPW dpdGggdGhlIHBhdGllbnQn ezRxVX0zMFVOOZEbgW5yPA IsICJyaWdodCBsYXRlcmFs YQGaw6MkLDFqFIHyp10upV O1wkJhVqJjIQMjgkbuCRY4 QM8pD7HimXCbn5DxGStgUq ibxLFoUyJzbHKhSoYwB85p IHdoaWNoIGlzIGVudGlyZW d5IHurx1ArUTDppNMuJO9y JWC2Jc8roFPkKDVohkL0m1 GyJMvpGGtlHuetUUGeQ2Zj K4idQM0kNiJtnmOeYLBlcE WbWHKgsfXic5DgZDgyrmCf YWJlbGVkIHdpdGggdGhlIH XcaXpdqzIdowZmCV7yPHAS MUggbnVtYmVyLCAicmlnaH QgbWlkIGFwZXgiIGFuZCBj j13blGS4vuNrUmAbYFLcrt xtBRK5HZ2zO7ZuiAHkl6Hi ICgxLjcgeCAwLjEgeCAwLj WcG21cDPegyUHlJPclWWMd iIsnJFz6DCvwc5DsNPCtgA QaEG9oXGA6Jl3jhMPqWQKq qqG7b8RyGOyeRTlkPwlqMW DyD2KyT3ihKF4oHuVlnhZr MGSljVUaTPSacoKpq1FyJO xpbiBsYWJlbGVkIHdpdGgg dGhlIHBhdGllbnQncyBuYW 1gGEOGWJAtwH8gMBEyWHNe aWdodCBtaWQgbWlkIiBhbm GxO80ep6nihIHdh5HfMRBo yO8iuMSofWTfTTmbKXnyD0 0rMAUpQg9dCVqmOL8xJLgn WQ0oWPDiYVH5qHqjcJKwep BlbnRpcmVseSBpbmtlZCBi hROjYZRrNDNbpBGfrAH9IS IxdZ7ulW80cfDahoCHCZ1f cGFyIFNwZWNpbWVuIEwgaX SftdByQEb8WKCxcJ0aCb9a eVHerI8rkQVgRVmqZHU1oF IwKNVaYPPeGYEeKN53L3Rk bmFtZSwgVUggbnVtYmVyLC PjvuqiqGHwhEtgSVTbk6Ou RNNmTZRmw79uvZF7coYqEr HzOBSzwqefVRU4DD9uX1Dd yBQmn7KgXIyrSxTdjYXzTm KgvQKpUzDqO37rNPbwsYAd YVabSUUdeDvcTHy8QLnxj0 TsKJTxpFXjGZ2jEHL2Wh6x oDCuESEsvaX5m8UjEUvaJY wxLlxwYXJccGFyZFxwbGFp cvdxNMavyrT7RGLgWBaiBE YxXGZzMjBcbGFuZzEwMzNc aGljaFxmMVxkYmNoXGYxXG plU0cdTuOaMuMjGXKIdIlt WKLFN4emoZPqZFicASNIOP BsYWluXGYyXGZzMTZcbGFu ZzEwMzNcaGljaFxmMlxkYm QgUSEjMTfkM2yqYhPdF7Gt XGZzMTZccGFyXHBsYWluXG YxXGZzMjRccGFyXHFsXHBs YWluXGYwXGZzMjRccGxhaW 8pQiJgGxPnTTlpNK0zAPGi Y9zkeWMcKEKaKMQhB4gmXm KbqV6msKuvEJfeeuMpVSNl cn0= Embedded Images (test code = [id number]) [facility] SPECIFIC ANTIGEN [id number] 23:07:00 Test Item Value Reference Range Interpretation Comments PSA (test code = 29.30 ng/mL See_Comment H [Automated [id number]) message] The system which generated this result transmitted reference range : <=4.00. The reference range was not used to interpret this result as normal/abnormal . BEVERLEY (test code = BEVERLEY) Biotin has been reported to cause a negative bias, interpret results relative to patient's use of biotin. Lab Interpretation Abnormal (test code = 83323-2) [facility]
[2022-10-06 12:35] LABS: Absolute Lymphocytes (CBC) 0.6 K/uL (0.7-4.9); Hematocrit 39.6 % (39.6-49.0); Lymphocytes % 13.8 % (15.3-44.8); MCV 88.8 fL (80-100); MPV 8.9 fL (7.6-11.3); RBC Red Blood Cell Count 4.46 M/uL (4.33-5.43)
--- NOTE | 2022-10-06 12:41 | RAD REPORT ---
EXAM DESCRIPTION: CT - Abdomen Pelvis Wo Contrast - 10/06/2022 12:32 pm CLINICAL HISTORY: Abdominal pain. ABD PAIN COMPARISON: Abdomen Pelvis W Contrast dated 10/04/2022; Abdomen Pelvis W Contrast dated 07/19/2022 TECHNIQUE: CT imaging of the abdomen and pelvis was performed without contrast. Solid organ, bowel a nd vascular assessment is limited due to lack of IV and oral contrast. All CT scans are performed using dose optimization technique as appropriate and may include automated exposure control or mA/KV adjustment according to patient size. FINDINGS: The lower lung gonzalez are clear. The liver, spleen, pancreas, adrenal glands and kidneys are within normal limits for a limited non-co ntrast examination.Cholecystectomy clips. No bowel obstruction, free air, free fluid or abscess. Sigmoid diverticulosis coli without diverticul itis. The appendix is not identified as a discrete structure, however, no secondary findings of appen dicitis are identified. Moderate lumbar degenerative changes.Prostate enlargement. IMPRESSION: Moderate sigmoid diverticulosis without diverticulitis. Prostate enlargement. A limited non-contrast examination was performed as detailed.
[2022-10-06 12:54] LABS: Albumin 3.4 g/dL (3.4-5.0); Bilirubin Total 0.7 mg/dL (0.2-1.0); Protein, Total 6.9 g/dL (6.4-8.2)
[2022-10-06 12:58] LABS: Troponin High Sensitivity 61.1 pg/mL (<58.9)
[2022-10-06 13:20] LABS: Specific Gravity 1.013 (1.005-1.030); Urine Bacteria None Seen /HPF (<20); Urine Bilirubin NEGATIVE (Negative); Urine Blood 1+ (Negative); Urine Clarity Clear (Clear); Urine Color Light-Yellow (Yellow); Urine Glucose NEGATIVE (Negative); Urine Protein NEGATIVE (Negative); Urine Urobilinogen Normal (Normal); Urine pH 6.5 (5.0-7.0)
--- NOTE | 2022-10-06 14:32 | ER ---
Nurse's Notes [facility] Name: Jesse Serna Age: 81 yrs Sex: Male : 1940 Arrival Date: 10/06/2022 Time: 11:59 Bed 14 Private MD: Diagnosis: NSTEMI, generalized weakness Presentation: 10/06 12:03 Chief complaint: EMS states: pt was here yesterday and discharged for a UTI and sent kc6 home with Amoxicillin. pt has not started his antibiotic yet and woke up this morning with left abd pain and headache 08/21. Coronavirus screen: At this time, the client does not indicate any symptoms associated with coronavirus-19. Ebola Screen: No symptoms or risks identified at this time. Initial Sepsis Screen: Does the patient meet any 2 criteria? No. Patient's initial sepsis screen is negative. Does the patient have a suspected source of infection? No. Patient's initial sepsis screen is negative. Risk Assessment: Do you want to hurt yourself or someone else? Patient reports no desire to harm self or others. Onset of symptoms was October 06, 2022. 12:03 Method Of Arrival: EMS: [facility] kc6 12:03 Acuity: KT 3 kc6 Triage Assessment: 12:04 General: Appears in no apparent distress. comfortable, Behavior is calm, cooperative, kc6 appropriate for age. Pain: Complains of pain in left upper quadrant and left lower quadrant. EENT: No signs and/or symptoms were reported regarding the EENT system. Neuro: Level of Consciousness is awake, alert, obeys commands, Oriented to person, place, time, situation, Appropriate for age. Cardiovascular: Capillary refill < 3 seconds. Respiratory: Airway is patent Trachea midline Respiratory effort is even, unlabored, Respiratory pattern is regular, symmetrical. GI: Patient currently denies diarrhea, nausea, vomiting. : No signs and/or symptoms were reported regarding the genitourinary system. Derm: No signs and/or symptoms reported regarding the dermatologic system. Skin is intact, is healthy with good turgor, Skin is pink, warm \T\ dry. Musculoskeletal: No signs and/or symptoms reported regarding the musculoskeletal system. Circulation, motion, and sensation intact. Capillary refill < 3 seconds, Range of motion: intact in all extremities. Historical: - Allergies: 12:04 Aspirin; kc6 - PMHx: 12:04 Arthritis; Atrial fibrillation; Hypertension; prostate cancer- in remission; kc6 - PSHx: 12:04 Appendectomy; kc6 - Immunization history:: Client reports receiving the 2nd dose of the Covid vaccine, Flu vaccine is up to date. - Social history:: Smoking status: Patient denies any tobacco usage or history of. Screenin:08 [facility] ED Fall Risk Assessment (Adult) History of falling in the last 3 months, 6 including since admission No falls in past 3 months (0 pts) Confusion or Disorientation No (0 pts) Intoxicated or Sedated No (0 pts) Impaired Gait No (0 pts) Mobility Assist Device Used No (0 pt) Altered Elimination No (0 pt) Score/Fall Risk Level 0 - 2 = Low Risk. Abuse screen: Denies threats or abuse. Denies injuries from another. Nutritional screening: No deficits noted. Tuberculosis screening: No symptoms or risk factors identified. Assessment: 12:08 Reassessment: please see triage assessment. [facility] 13:12 Reassessment: No changes from previously documented assessment. Patient and/or family ll1 updated on plan of care and expected duration. Pain level reassessed. Patient is alert, oriented x 3, equal unlabored respirations, skin warm/dry/pink. 14:15 Reassessment: Patient appears in no apparent distress at this time. No changes from ll1 previously documented assessment. Patient and/or family updated on plan of care and expected duration. Pain level reassessed. Patient is alert, oriented x 3, equal unlabored respirations, skin warm/dry/pink. 15:27 Reassessment: Patient appears in no apparent distress at this time. No changes from 1 previously documented assessment. Patient and/or family updated on plan of care and expected duration. Pain level reassessed. Patient is alert, oriented x 3, equal unlabored respirations, skin warm/dry/pink. 16:33 Reassessment: Patient appears in no apparent distress at this time. No changes from 6 previously documented assessment. Patient and/or family updated on plan of care and expected duration. Pain level reassessed. Patient is alert, oriented x 3, equal unlabored respirations, skin warm/dry/pink. 17:00 Reassessment: attempted to call report to 4th floor. nurse parker unavailable at this [facility] time. 17:18 Reassessment: attempted to call report to 4th floor. nurse parker is taking care of a 6 new direct admit and will call me back. ARA Alba notified. Vital Signs: 12:03 BP 159 / 68; Pulse 58; Resp 16 S; Temp 97.7(O); Pulse Ox 99% on R/A; Weight 68.04 kg kc6 (R); Height 5 ft. 6 in. (R); Pain 6/10; 15:27 BP 164 / 57; Pulse 51; Resp 17 S; Pulse Ox 99% on R/A; ll1 16:33 BP 148 / 72; Pulse 50; Resp 16 S; Pulse Ox 98% on R/A; kc6 12:03 Body Mass Index 24.21 (68.04 kg, 167.64 cm) kc6 12:03 Pain Scale: Adult [facility] ED Course: 12:02 Patient arrived in ED. kc6 12:03 Eddie Castillo MD is Attending Physician. sp3 12:04 Triage completed. kc6 12:04 Arm band placed on. kc6 12:08 Patient has correct armband on for positive identification. Bed in low position. Call [facility] light in reach. Side rails up X2. 12:11 Esperanza Buckner RN is Primary Nurse. kc6 12:34 CT Abd/Pelvis - Without Contrast In Process Unspecified. EDMS 12:58 Notified ED physician of a critical lab result(s). troponin 61.1. ll1 13:08 Inserted saline lock: 20 gauge in right antecubital area, using aseptic technique. sm8 Blood collected. 13:12 Urinalysis w/ reflexes Sent. ll1 13:39 Troponin High Sensitivity Sent. ll1 14:31 Alexis Sampson is Hospitalizing Provider. sp3 17:28 No provider procedures requiring assistance completed. Patient admitted, IV remains in [address] Administered Medications: No medications were administered Medication: 17:44 VIS not applicable for this client. kc Outcome: 14:32 Decision to Hospitalize by Provider. sp3 17:44 Admitted to Med/surg accompanied by bailey, via wheelchair, room 425, with chart, Report kc6 called to ARA Foreman 17:44 Condition: stable 17:44 Instructed on the need for admit. 17:45 Patient left the ED. kc6 Signatures: Dispatcher [employer] EDLarry Wheeler RN RN ll1 Eddie Castillo MD MD sp3 Esperanza Buckner RN RN kc6 Yuliya Hatfield 8
--- NOTE | 2022-10-06 14:32 | EDPHYS ---
Physician Documentation [facility] Name: Jesse Serna Age: 81 yrs Sex: Male : 1940 Arrival Date: 10/06/2022 Time: 11:59 Bed 14 Private MD: ED Physician Eddie Castillo HPI: 10/06 12:15 This 81 yrs old Male presents to ER via EMS with complaints of Abdominal Pain, sp3 Headache. 12:15 81-year-old male with a history of atrial fibrillation, hypertension, prostate cancer sp3 in remission, recent UTI discharged yesterday from this facility is inpatient side with final diagnoses UTI and a prescription for amoxicillin which she did not fill now presents to the ED for tiredness, abdominal pain diffuse in nature, and mild headache. He denies fall or trauma. He also denies fever, URI symptoms, chest pain, shortness of breath, nausea, vomiting, diarrhea, syncope, near syncope, focal neurodeficit, or any other signs or symptoms on ROS at this time. Patient did not get his amoxicillin filled for unknown reason.. Historical: - Allergies: 12:04 Aspirin; kc6 - PMHx: 12:04 Arthritis; Atrial fibrillation; Hypertension; prostate cancer- in remission; kc6 - PSHx: 12:04 Appendectomy; kc6 - Immunization history:: Client reports receiving the 2nd dose of the Covid vaccine, Flu vaccine is up to date. - Social history:: Smoking status: Patient denies any tobacco usage or history of. ROS: 12:16 Constitutional: Negative for fever, chills, and weight loss, Eyes: Negative for injury, sp3 pain, redness, and discharge, ENT: Negative for injury, pain, and discharge, Neck: Negative for injury, pain, and swelling, Cardiovascular: Negative for chest pain, palpitations, and edema, Respiratory: Negative for shortness of breath, cough, wheezing, and pleuritic chest pain, Back: Negative for injury and pain, MS/Extremity: Negative for injury and deformity, Skin: Negative for injury, rash, and discoloration, Psych: Negative for depression, anxiety, suicide ideation, homicidal ideation, and hallucinations, Allergy/Immunology: Negative for hives, rash, and allergies, Endocrine: Negative for neck swelling, polydipsia, polyuria, polyphagia, and marked weight changes, Hematologic/Lymphatic: Negative for swollen nodes, abnormal bleeding, and unusual bruising. 12:16 All other systems are negative. Exam: 12:17 Constitutional: This is a well developed, well nourished patient who is awake, alert, sp3 and in no acute distress. Head/Face: Normocephalic, atraumatic. Eyes: Pupils equal round and reactive to light, extra-ocular motions intact. Lids and lashes normal. Conjunctiva and sclera are non-icteric and not injected. Cornea within normal limits. Periorbital areas with no swelling, redness, or edema. ENT: Nares patent. No nasal discharge, no septal abnormalities noted. External auditory canals are clear. Oropharynx with no redness, swelling, or masses, exudates, or evidence of obstruction, uvula midline. Mucous membranes moist. Neck: Trachea midline, no thyromegaly or masses palpated, and no cervical lymphadenopathy. Supple, full range of motion without nuchal rigidity, or vertebral point tenderness. No Meningismus. Chest/axilla: Normal chest wall appearance and motion. Nontender with no deformity. No lesions are appreciated. Cardiovascular: Regular rate and rhythm with a normal S1 and S2. No gallops, murmurs, or rubs. Normal PMI, no JVD. No pulse deficits. Respiratory: Lungs have equal breath sounds bilaterally, clear to auscultation and percussion. No rales, rhonchi or wheezes noted. No increased work of breathing, no retractions or nasal flaring. Back: No spinal tenderness. No costovertebral tenderness. Full range of motion. Skin: Warm, dry with normal turgor. Normal color with no rashes, no lesions, and no evidence of cellulitis. 12:17 Abdomen/GI: Patient endorses mild diffuse abdominal pain without any rebound or guarding. Pain is very mild in nature. Patient is resting in no acute distress.. Vital Signs: 12:03 BP 159 / 68; Pulse 58; Resp 16 S; Temp 97.7(O); Pulse Ox 99% on R/A; Weight 68.04 kg kc6 (R); Height 5 ft. 6 in. (R); Pain 6/10; 15:27 BP 164 / 57; Pulse 51; Resp 17 S; Pulse Ox 99% on R/A; ll1 16:33 BP 148 / 72; Pulse 50; Resp 16 S; Pulse Ox 98% on R/A; kc6 12:03 Body Mass Index 24.21 (68.04 kg, 167.64 cm) kc6 12:03 Pain Scale: Adult kc6 MDM: 12:10 Patient medically screened. sp3 12:17 Data reviewed: vital signs, nurses notes, old medical records, lab test result(s), EKG, sp3 radiologic studies. ED course: 81-year-old male with recurrent abdominal pain. Was just discharged just yesterday with UTI. Will evaluate with repeat CT scan of the abdomen and pelvis, laboratory values, urine analysis and disposition further. Patient will likely be discharged as he is in no acute distress and has no critical illness at this time.. 14:16 ED course: UA demonstrates no infection at this point. EKG demonstrates atrial sp3 fibrillation with continued right bundle branch block with nonspecific diffuse changes. Troponin value was mildly positive at 61 which was repeated which returned the same 61 result. Last documented troponin in the medical record is 23. Given his diffuse abdominal pain and generalized weakness, we will place patient in observation and have cardiology consultation as well as serial cardiac markers.. 14:46 ED course: Discussed with Dr. Griffin who wants patient 23-hour ops with stress test in sp3 the morning. This has been communicated with the inpatient hospitalist team.. 10/06 12:10 Order name: CBC with Diff; Complete Time: 12:51 [facility] 10/06 12:10 Order name: CMP; Complete Time: 13:08 [facility] 10/06 12:10 Order name: Lipase; Complete Time: 13:08 [facility] 10/06 12:10 Order name: Urinalysis w/ reflexes; Complete Time: 13:51 3 10/06 12:10 Order name: Troponin High Sensitivity; Complete Time: 13:08 [facility] 10/06 13:16 Order name: Troponin High Sensitivity; Complete Time: 14:14 [facility] 10/06 15:59 Order name: Troponin High Sensitivity [facility] 10/06 15:59 Order name: Troponin High Sensitivity [facility] 10/06 15:59 Order name: Troponin High Sensitivity [facility] 10/06 17:00 Order name: Phosphorus [facility] 10/06 17:00 Order name: T4 Free [facility] 10/06 17:00 Order name: Magnesium [facility] 10/06 17:00 Order name: Thyroid Stimulating Hormone EDMS 10/06 12:10 Order name: CT Abd/Pelvis - Without Contrast; Complete Time: 12:51 sp3 10/06 12:10 Order name: EKG; Complete Time: 12:10 sp3 10/06 12:10 Order name: IV Saline Lock; Complete Time: 12:21 sp3 10/06 12:10 Order name: Labs collected and sent; Complete Time: 12:21 sp3 10/06 12:10 Order name: EKG - Nurse/Tech; Complete Time: 12:47 sp3 Administered Medications: No medications were administered Disposition Summary: 10/06/22 14:32 Hospitalization Ordered Hospitalization Status: Observation sp3 Provider: Alexis Sampson sp3 Location: Telemetry/MedSurg (observation) sp3 Condition: Stable sp3 Problem: new sp3 Symptoms: have worsened sp3 Bed/Room Type: Standard sp3 Room Assignment: 428(10/06/22 16:34) bd Diagnosis - NSTEMI, generalized weakness sp3 Forms: - Medication Reconciliation Form sp3 - SBAR form sp3 Signatures: Dispatcher [employer] EDMS Екатерина Escobar bd Eddie Castillo MD MD sp3 Esperanza Buckner RN RN kc6 Corrections: (The following items were deleted from the chart) 16:34 14:32 sp3 bd
[2022-10-06] MEDS ORDERED: ACETAMINOPHEN 325 MG TABLET PO PRN (16:01)
[2022-10-06] MEDS ORDERED: ONDANSETRON 4 MG/2 ML VIAL IV PRN (16:14)
--- NOTE | 2022-10-06 16:21 | P.HP ---
Certification for Inpatient Patient admitted to: Observation With expected LOS: <2 Midnights Patient will require the following post-hospital care: None Practitioner: I am a practitioner with admitting privileges, knowledge of patient current condition, hospital course, and medical plan of care. Services: Services provided to patient in accordance with Admission requirements found in Title 42 Section 412.3 of the Code of Federal Regulations Patient History Date of Service: 10/06/22 Reason for admission: Abdominal pain History of Present Illness: Patient is an 81-year-old male with a past medical history significant for atrial fibrillation, prostrate cancer, hypertension who presents with complaint of abdominal pain located in the Periumbilical area onset this morning. Patient rated pain as 8/10 in severity and described pain as burning in quality. Patient reported associated s\s of weakness, fatigue, dizziness, AU and poor appetite. Patient denies any other signs and symptoms. Symptoms are aggravated or relieved by nothing. Patient was brought to the hospital for medical evaluation. Allergies aspirin Allergy (Mild, Verified 10/04/22 13:05) Itching Home Medications: Amoxicillin/Potassium Clav [Amox-Clav 875-125 mg Tablet] 1 each PO BID 10/06/22 Apixaban [Eliquis] 1 tab PO DAILY 10/06/22 Aspirin Chewable [Aspirin Chewable*] 1 tab PO DAILY 10/06/22 Dicyclomine [Bentyl*] 20 mg PO QID 10/06/22 Enalapril Maleate 2 tab PO DAILY 10/06/22 Pantoprazole [Protonix Tab*] 1 tab PO DAILY 10/06/22 - Past Medical/Surgical History Diabetic: No -: HTN -: BPH -: Afib -: Atrial Fibrillation -: Prostate Cancer -: Stomach Cancer -: Hernia repair (left) -: appendectomy - Family History Mother -: Stroke Father -: Lung disease - Social History Smoking Status: Never smoker Alcohol use: No CD- Drugs: No Caffeine use: Yes Place of Residence: Home Review of Systems General: Weakness, Other (Fatigue) Eyes: Unremarkable ENT: Unremarkable Respiratory: Unremarkable Cardiovascular: Unremarkable Gastrointestinal: Abdominal Pain Genitourinary: Unremarkable Musculoskeletal: Unremarkable Integumentary: Unremarkable Neurological: Weakness, Other (AU, dizziness ) Lymphatics: Unremarkable Physical Examination - Physical Exam General: Alert, In no apparent distress, Oriented x3, Cooperative HEENT: Atraumatic, PERRLA, Mucous membr. moist/pink, EOMI, Sclerae nonicteric Neck: Supple, 2+ carotid pulse no bruit, No LAD, Without JVD or thyroid abnormality Respiratory: Clear to auscultation bilaterally, Normal air movement Cardiovascular: Normal S1 S2, Irregular heart rate/rhythm Capillary refill: <2 Seconds Gastrointestinal: Normal bowel sounds, Tenderness Musculoskeletal: No clubbing, No swelling, No tenderness Integumentary: No rashes Neurological: Normal speech, Normal strength at 5/5 x4 extr, Normal tone, Normal affect Lymphatics: No axilla or inguinal lymphadenopathy - Studies Laboratory Data (last 24 hrs) 10/06/22 12:23: Sodium 138, Potassium 4.0, BUN 14, Creatinine 0.71, Glucose 94, Total Bilirubin 0.7, AST 11 L, ALT 16, Alkaline Phosphatase 74, Lipase 21 10/06/22 12:23: WBC 4.40, Hgb 13.0 L, Hct 39.6, Plt Count 188 Assessment and Plan - Plan -- Abdominal pain. CT abdomen unremarkable for any acute intracranial abnormality. Patient has a history of GERD. Patient placed on Protonix. Continue supportive care. ---Elevated troponin. We will trend troponin levels. Cardiology consulted. Plan to do a stress test in a.m. Telemetry. Further management per personal financial advisor. Continue supportive care. --GERD. Continue Protonix. --A-fib. Continue Eliquis. Cardiology on board --BPH. Continue home medication. --Hypertension. Poorly controlled. Continue home medications and hydralazine as needed. --History of Prostate cancer. Patient reportedly in remission. Patient follows up with an outpatient oncologist. Continue supportive care. --Anemia of chronic disease. H&H stable. We will continue monitor hemoglobin and transfuse if less than 7.0. --Headache. Tylenol as needed. --DVT prophylaxis with Eliquis. Discharge Plan: Home Plan to discharge in: 48 Hours - Advance Directives Does patient have a Living Will: No Does patient have a Durable POA for Healthcare: No - Code Status/Comfort Care Code Status Assessed: Yes Physician Review: Patient Assessed, Agree with Above Assessment and Plan Critical Care: No
[2022-10-06 16:59] LABS: Phosphorus 3.1 mg/dL (2.5-4.9); Thyroid Stimulating Hormone 1.2 uIU/mL (0.358-3.740)
[2022-10-06 18:07] VITALS: BMI 24.2
[2022-10-06] MEDS: APIXABAN 5 MG TABLET PO SCH (19:55)
[2022-10-07] MEDS: ACETAMINOPHEN 325 MG TABLET PO PRN (00:47)
[2022-10-07 02:17] LABS: Absolute Lymphocytes (CBC) 0.6 K/uL (0.7-4.9); Hematocrit 35.9 % (39.6-49.0); Lymphocytes % 12.3 % (15.3-44.8); MCV 88.2 fL (80-100); MPV 8.9 fL (7.6-11.3); RBC Red Blood Cell Count 4.07 M/uL (4.33-5.43)
[2022-10-07 02:21] LABS: Potassium 3.8 mEq/L (3.5-5.1)
[2022-10-07] MEDS: HYDROCODONE/APAP 5/325 MG TAB PO PRN ×2 (06:08→21:34)
[2022-10-07] MEDS ORDERED: SODIUM CHLORIDE 0.9% 10ML INJ IV PRN (06:10)
[2022-10-07] MEDS ORDERED: HYDRALAZINE HCL 20 MG/ML VIAL IV PRN (06:13)
[2022-10-07] MEDS ORDERED: REGADENOSON 0.4 MG/5 ML SYR IV ONE (07:25)
[2022-10-07] MEDS: APIXABAN 5 MG TABLET PO SCH (09:00)
[2022-10-07] MEDS: PANTOPRAZOLE 40 MG INJ IVP SCH (09:00)
--- NOTE | 2022-10-07 10:41 | RAD REPORT ---
EXAM DESCRIPTION: NM - Rest Stress Cardiac Imaging - 10/07/2022 10:36 am CLINICAL HISTORY: NSTEMI/Chest pain Chest pain. COMPARISON: No comparisons TECHNIQUE: The patient was administered approximately 10mCi of Tc 99m Sestamibi prior to resting SPE CT imaging of the heart. The patient was then administered approximately 30 mCi of Tc 99m Sestamibi f ollowing exercise or pharmacologic stress. Multiplanar SPECT images were reviewed. FINDINGS: Diminished radiopharmaceutical accumulation is noted involving the inferior wall and septu m. This appears moderate in size and mild severity. No fixed defect is seen to suggest hibernating my ocardium or scarred myocardium. The end diastolic volume is 103 ml, the end systolic volume is 46 ml, and the ejection fraction is 55 %. IMPRESSION: Moderate sized area of mild stress-induced ischemia involving the inferior wall and sept al wall.
--- NOTE | 2022-10-07 13:22 | EKG ---
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
--- NOTE | 2022-10-07 14:36 | TREADPHA ---
DX: CHEST PAIN Date of Study: 10/07/2022 Ht: 5' 6 " Wt: 150 lb 0 oz Consulting Physician: AVI MEDICATIONS: TYLENOL, NORCO, ELIQUIS, APRESOLINE, ZOFRAN, PROTONIX, ULTRAM HISTORY: HYPERTENSION PHYSICIAL EXAMINATION: RESTING B.P.: 143/78 RESTING H.R.: 56 RESTING EKG: NORMAL SINUS RHYTHM, RIGHT BUNDLE BRANCH BLOCK PROTOCOL: PHARMACOLOGIC EXERCISE TIME: 3:30 B.P. AT PEAK STRESS: 104/60 IMPRESSION: LEXISCAN PROCEDURE PERFORMED PER PROTOCOL. CARDIOLITE INJECTED (SEE NUCLEAR MEDICINE REPORT). PATIENT COMPLAINTS OF HEADACHE DURING PROCEDURE, ALLEVIATED POST PROCEDURE. PREMATURE VENTRICULAR COMPLEXES NOTED DURING STRESS. NO SHORTNESS OF BREATH OR CHEST PAIN PER PATIENT. NO SUPRAVENTRICULAR TACHYCARDIA, VENTRICULAR TACHYCARDIA. NO ELECTROCARDIOGRAM CHANGSE OF ISCHEMIA WITH LEXISCAN.
--- NOTE | 2022-10-07 18:32 | P.PN ---
Subjective Date of Service: 10/07/22 Chief Complaint: Abdominal pain Patient has no complaint today. He presented with intermittent abdominal pain which has resolved. Physical Examination - Vital Signs Temperature: 98.6 F Blood Pressure: 134/50 Pulse: 60 Respirations: 16 Pulse Ox (%): 97 Assessment And Plan - Plan Physical Exam General: Alert, In no apparent distress, Oriented x3, Cooperative Neck: Supple, no elevated JVD Respiratory: Clear to auscultation bilaterally, Normal air movement Cardiovascular: Normal S1 S2, Irregular heart rate/rhythm Gastrointestinal: Normal bowel sounds, no tenderness. Musculoskeletal: No clubbing, No swelling, No tenderness Integumentary: No rashes Neurological: Normal speech, no focal motor deficit Diagnosis Abdominal pain NSTEMI GERD Chronic atrial fibrillation Hypertension Abnormal stress test Plan: Abdominal pain/GERD unknown etiology CT abdomen pelvis unremarkable Symptoms resolved Pain may be related to GI Continue protonix. NSTEMI Troponin is mildly elevated but trended flat. Nuclear stress testing today shows reversible ischemia. Cardiology consult appreciated-Dr. Warner is planning cardiac catheterization. Discontinue Eliquis Full dose Lovenox. Chronic atrial fibrillation Patient is bradycardic and not on any rate control medication Eliquis is on hold for cardiac catheterization. BPH Continue home medication. Hypertension. Continue home medications and hydralazine as needed. DVT prophylaxis: Eliquis.
[2022-10-07] MEDS ORDERED: ENOXAPARIN 80 MG/0.8 ML SQ ONE (19:00)
[2022-10-08] MEDS: PANTOPRAZOLE 40 MG INJ IVP SCH (08:07)
[2022-10-08] MEDS: HYDROCODONE/APAP 5/325 MG TAB PO PRN ×2 (10:00→20:43)
[2022-10-08] MEDS: TRAMADOL HCL 50 MG TAB PO PRN (15:12)
--- NOTE | 2022-10-08 18:33 | P.PN ---
Subjective Date of Service: 10/08/22 Chief Complaint: Abdominal pain Patient has no complaint. He is tolerating his diet. Physical Examination - Vital Signs Temperature: 98.1 F Blood Pressure: 180/79 Pulse: 57 Respirations: 16 Pulse Ox (%): 96 Assessment And Plan - Plan Physical Exam General: Alert, In no apparent distress, Oriented x3, Cooperative Respiratory: Clear to auscultation bilaterally, Normal air movement Cardiovascular: Normal S1 S2, Irregular heart rate/rhythm Gastrointestinal: Normal bowel sounds, no tenderness. Musculoskeletal: No clubbing, No swelling, No tenderness Integumentary: No rashes Neurological: Normal speech, no focal motor deficit Diagnosis Abdominal pain NSTEMI GERD Chronic atrial fibrillation Hypertension Abnormal stress test Plan: Abdominal pain/GERD unknown etiology CT abdomen pelvis unremarkable Symptoms resolved Pain may be related to GI Continue protonix. NSTEMI Troponin is mildly elevated but trended flat. Nuclear stress testing showed reversible ischemia. Cardiology consult appreciated-Dr. Warner is planning cardiac catheterization. Full dose Lovenox. Chronic atrial fibrillation Patient is bradycardic and not on any rate control medication Eliquis is on hold for cardiac catheterization. Continue Lovenox. BPH Continue home medication. Hypertension. Continue home medications and hydralazine as needed. DVT prophylaxis: Lovenox.
[2022-10-08] MEDS: ENOXAPARIN 80 MG/0.8 ML SQ SCH (20:43)
[2022-10-09] MEDS: TRAMADOL HCL 50 MG TAB PO PRN (01:41)
[2022-10-09] MEDS: ASPIRIN 81 MG CHEWABLE TABLET PO SCH (08:55)
[2022-10-09] MEDS: ACETAMINOPHEN 325 MG TABLET PO PRN (08:55)
[2022-10-09] MEDS: DICYCLOMINE HCL 10 MG CAP PO SCH ×4 (08:55→21:25)
[2022-10-09] MEDS: PANTOPRAZOLE 40 MG INJ IVP SCH (08:55)
[2022-10-09] MEDS: PANTOPRAZOLE 40MG TABLET PO SCH (08:56)
[2022-10-09] MEDS: ENOXAPARIN 80 MG/0.8 ML SQ SCH ×2 (08:56→21:25)
[2022-10-09] MEDS: ENALAPRIL 10 MG TAB PO SCH (09:00)
[2022-10-09] MEDS ORDERED: ACETAMIN/CAFFEINE/BUTALB TAB PO PRN (14:26)
--- NOTE | 2022-10-09 14:31 | P.PN ---
Subjective Date of Service: 10/09/22 Chief Complaint: Abdominal pain Patient is complaining of intermittent headache. He denies any chest pain. Physical Examination - Vital Signs Temperature: 98.2 F Blood Pressure: 153/67 Pulse: 58 Respirations: 18 Pulse Ox (%): 95 Assessment And Plan - Plan Physical Exam General: Alert, In no apparent distress, Oriented x3, Cooperative Respiratory: Clear to auscultation bilaterally, Normal air movement Cardiovascular: Normal S1 S2, Irregular heart rate/rhythm Gastrointestinal: Normal bowel sounds, no tenderness. Musculoskeletal: No clubbing, No swelling, No tenderness Integumentary: No rashes Neurological: Normal speech, no focal motor deficit Diagnosis Abdominal pain NSTEMI GERD Chronic atrial fibrillation Hypertension Abnormal stress test Plan: Abdominal pain/GERD unknown etiology CT abdomen pelvis unremarkable Symptoms resolved Pain may be related to GERD Continue protonix. NSTEMI Troponin is mildly elevated but trended flat. Nuclear stress testing showed reversible ischemia. Cardiology consult appreciated-Dr. Warner is planning cardiac catheterization. Full dose Lovenox. Chronic atrial fibrillation Patient is bradycardic and not on any rate control medication Eliquis is on hold for cardiac catheterization. Continue Lovenox. BPH Continue home medication. Hypertension. Continue home medications and hydralazine as needed. Headache No response to [place] and tramadol. Possible migraine headache Trial of Fioricet. DVT prophylaxis: Lovenox.
[2022-10-10 03:22] LABS: Absolute Lymphocytes (CBC) 0.6 K/uL (0.7-4.9); Hematocrit 37.6 % (39.6-49.0); Lymphocytes % 8.7 % (15.3-44.8); MCV 88.6 fL (80-100); MPV 8.9 fL (7.6-11.3); RBC Red Blood Cell Count 4.24 M/uL (4.33-5.43)
[2022-10-10 03:28] LABS: Potassium 4.1 mEq/L (3.5-5.1)
[2022-10-10] MEDS: PANTOPRAZOLE 40MG TABLET PO SCH (08:12)
[2022-10-10] MEDS: DICYCLOMINE HCL 10 MG CAP PO SCH ×4 (08:12→20:08)
[2022-10-10] MEDS: ENALAPRIL 10 MG TAB PO SCH (08:12)
[2022-10-10] MEDS: ASPIRIN 81 MG CHEWABLE TABLET PO SCH (08:12)
[2022-10-10] MEDS: ENOXAPARIN 80 MG/0.8 ML SQ SCH ×3 (08:12→20:08)
[2022-10-10] MEDS: PANTOPRAZOLE 40 MG INJ IVP SCH (08:13)
[2022-10-10] MEDS: ACETAMINOPHEN 325 MG TABLET PO PRN (11:00)
--- NOTE | 2022-10-10 12:52 | P.PN ---
Subjective Date of Service: 10/10/22 Chief Complaint: Abdominal pain Patient has no new complaint. He states his headache is better. He denies any chest pain or abdominal pain. Physical Examination - Vital Signs Temperature: 98.9 F Blood Pressure: 147/66 Pulse: 61 Respirations: 18 Pulse Ox (%): 93 Assessment And Plan - Plan Physical Exam General: Alert, In no apparent distress, Oriented x3, Cooperative Respiratory: Clear to auscultation bilaterally, Normal air movement Cardiovascular: Normal S1 S2, Irregular heart rate/rhythm Gastrointestinal: Normal bowel sounds, no tenderness. Musculoskeletal: No clubbing, No swelling, No tenderness Integumentary: No rashes Neurological: Normal speech, no focal motor deficit Diagnosis Abdominal pain NSTEMI GERD Chronic atrial fibrillation Hypertension Abnormal stress test Plan: Abdominal pain/GERD unknown etiology CT abdomen pelvis unremarkable Symptoms resolved Pain may be related to GERD Continue protonix. NSTEMI Troponin is mildly elevated but trended flat. Nuclear stress testing showed reversible ischemia. Cardiology consult appreciated-Dr. Warner is planning cardiac catheterization. Hold Lovenox tonight Chronic atrial fibrillation Patient is bradycardic and not on any rate control medication Justo is on hold for cardiac catheterization. On Lovenox. BPH Continue home medication. Hypertension. Continue home medications and hydralazine as needed. Headache No response to [place] and tramadol. Possible migraine headache. Patient states headache has improved with the Fioricet. DVT prophylaxis: Lovenox.
[2022-10-11] MEDS: ASPIRIN 81 MG CHEWABLE TABLET PO SCH (05:36)
[2022-10-11] MEDS: DICYCLOMINE HCL 10 MG CAP PO SCH ×4 (07:59→20:09)
[2022-10-11] MEDS: PANTOPRAZOLE 40MG TABLET PO SCH (07:59)
[2022-10-11] MEDS: ENALAPRIL 10 MG TAB PO SCH (07:59)
[2022-10-11] MEDS: ACETAMINOPHEN 325 MG TABLET PO PRN (15:54)
--- NOTE | 2022-10-11 16:25 | P.PN ---
Subjective Date of Service: 10/11/22 Chief Complaint: Abdominal pain Patient reports chronic intermittent headache. Physical Examination - Vital Signs Temperature: 98.2 F Blood Pressure: 146/54 Pulse: 66 Respirations: 16 Pulse Ox (%): 96 Assessment And Plan - Plan Physical Exam General: Alert, In no apparent distress, Oriented x3, Cooperative Respiratory: Clear to auscultation bilaterally, Normal air movement Cardiovascular: Normal S1 S2, Irregular heart rate/rhythm Gastrointestinal: Normal bowel sounds, no tenderness. Musculoskeletal: No clubbing, No swelling, No tenderness Integumentary: No rashes Neurological: Normal speech, no focal motor deficit Diagnosis Abdominal pain NSTEMI GERD Chronic atrial fibrillation Hypertension Abnormal stress test Plan: Abdominal pain/GERD unknown etiology CT abdomen pelvis unremarkable Symptoms resolved Pain may be related to GERD Continue protonix. NSTEMI Troponin is mildly elevated but trended flat. Nuclear stress testing showed reversible ischemia. Cardiology consult appreciated-Dr. Warner is planning cardiac catheterization. Dr. Warner rescheduled for cardiac catheterization for tomorrow. Chronic atrial fibrillation Patient is bradycardic and not on any rate control medication Eliquis is on hold for cardiac catheterization. On Lovenox. BPH Continue home medication. Hypertension. Continue home medications and hydralazine as needed. Headache-chronic No response to [place] and tramadol. Possible migraine headache. Continue Fioricet DVT prophylaxis: Lovenox.
[2022-10-11] MEDS: ENOXAPARIN 80 MG/0.8 ML SQ SCH (20:10)
[2022-10-12] MEDS ORDERED: NA CHLORIDE 0.9% 1,000 ML ONE (05:25)
[2022-10-12] MEDS: ASPIRIN 81 MG CHEWABLE TABLET PO SCH (05:51)
--- NOTE | 2022-10-12 07:20 | P.PN ---
Date of Service: 10/12/22 Subjective: feeling better today denies chest pain, +breathing comfortably no acute events overnight +Intermittent headache ROS: 10 point ROS as noted above, otherwise negative Physical Exam: GEN: Alert, oriented, NAD HEENT: Normal conjunctiva, sclera anicteric CV: Regular rate and rhythm, no edema Pulm: Nonlabored respirations on room air ABD: Soft, nontender, nondistended Neuro: Normal speech, normal affect vitals reviewed Problem List: NSTEMI Abdominal pain GERD Chronic atrial fibrillation Hypertension Headache, chronic NSTEMI Troponins mildly elevated x4, peaked at 62 continue telemetry stress test (10/08): Moderate sized area of mild stress-induced ischemia involving the inferior wall and septal wall Cardiology consulted Dr. Warner plans for tentative heart cath tomorrow Abdominal pain GERD unknown etiology CT abdomen/pelvis (10/06) : unremarkable Symptoms resolved Pain may be related to GERD Continue protonix. Chronic atrial fibrillation Patient is bradycardic and not on any rate control medication Eliquis is on hold d/t tentative cardiac catheterization. cont Lovenox for now; hold after midnight BPH Continue home medication. Hypertension. Continue home medications and hydralazine as needed. Headache, chronic No response initially to [place] and tramadol. Possible migraine headache. Continue Fioricet VTE: Lovenox Code: Full Dispo: Home ~1 day Pending Heart Cath
[2022-10-12] MEDS: ENALAPRIL 10 MG TAB PO SCH ×2 (07:58→10:44)
[2022-10-12] MEDS: PANTOPRAZOLE 40MG TABLET PO SCH ×2 (07:58→10:45)
[2022-10-12] MEDS: DICYCLOMINE HCL 10 MG CAP PO SCH ×4 (07:59→22:40)
[2022-10-12] MEDS: ENOXAPARIN 80 MG/0.8 ML SQ SCH ×3 (09:00→22:40)
[2022-10-12] MEDS: ACETAMINOPHEN 325 MG TABLET PO PRN (14:22)
[2022-10-13] MEDS: ASPIRIN 81 MG CHEWABLE TABLET PO SCH (06:07)
--- NOTE | 2022-10-13 07:39 | P.PN ---
Date of Service: 10/13/22 Subjective: ROS: 10 point ROS as noted above, otherwise negative Physical Exam: GEN: Alert, oriented, NAD HEENT: Normal conjunctiva, sclera anicteric CV: Regular rate and rhythm, no edema Pulm: Nonlabored respirations on room air ABD: Soft, nontender, nondistended Neuro: Normal speech, normal affect vitals reviewed Problem List: NSTEMI Abdominal pain GERD Chronic atrial fibrillation Hypertension Headache, chronic NSTEMI Troponins mildly elevated x4, peaked at 62 continue telemetry stress test (10/08): Moderate sized area of mild stress-induced ischemia involving the inferior wall and septal wall Cardiology consulted Dr. Warner plans for tentative heart cath tomorrow Abdominal pain GERD unknown etiology CT abdomen/pelvis (10/06) : unremarkable Symptoms resolved Pain may be related to GERD Continue protonix. Chronic atrial fibrillation Patient is bradycardic and not on any rate control medication Eliquis is on hold d/t tentative cardiac catheterization. cont Lovenox for now; hold after midnight BPH Continue home medication. Hypertension. Continue home medications and hydralazine as needed. Headache, chronic No response initially to [place] and tramadol. Possible migraine headache. Continue Fioricet VTE: Lovenox Code: Full Dispo: Home ~1 day Pending Heart Cath
[2022-10-13] MEDS: DICYCLOMINE HCL 10 MG CAP PO SCH ×3 (09:00→16:37)
[2022-10-13] MEDS: ENALAPRIL 10 MG TAB PO SCH (09:00)
[2022-10-13] MEDS: PANTOPRAZOLE 40MG TABLET PO SCH (09:00)
[2022-10-13] MEDS ORDERED: PANTOPRAZOLE 40 MG INJ IVP SCH (13:00)
[2022-10-13] MEDS ORDERED: HEPA 1000U/500MLS 2,000 UNIT/1,000 ML BAG IV ONE (14:39)
[2022-10-13] MEDS ORDERED: LIDOCAINE 1% 20 ML MDV ONE (14:40)
[2022-10-13] MEDS ORDERED: VERAPAMIL HCL 10 MG/4 ML VIAL IV ONE (14:41)
[2022-10-13] MEDS ORDERED: FENTANYL CITR 100 MCG/2 ML ONE (14:41)
[2022-10-13] MEDS ORDERED: HEPARIN 10,000 UNIT/10 ML VIAL IV ONE (14:41)
[2022-10-13] MEDS ORDERED: MIDAZOLAM HCL 2 MG/2 ML INJ ONE (14:41)
[2022-10-13] MEDS ORDERED: HEPARIN 5000 UNIT/ML 1 ML VIAL ONE (14:41)
[2022-10-13] MEDS ORDERED: ATROPINE SULF 1 MG/10 ML SYR IV ONE ×2 (14:41→15:12)
--- NOTE | 2022-10-13 15:00 | P.DS ---
Admission Date: 10/10/22 Discharge Date: 10/13/22 Disposition: ROUTINE DISCHARGE Discharge Condition: GOOD Reason for Admission: Abdominal pain Consultations: Cardiology - Dr. Warner Brief History of Present Illness: 81yo M, PMH: atrial fibrillation, prostrate cancer, hypertension Patient presents with complaint of abdominal pain located in the Periumbilical area onset this morning. Patient rated pain as 8/10 in severity and described pain as burning in quality. Patient reported associated s\s of weakness, fatigue, dizziness, AU and poor appetite. Patient denies any other signs and symptoms. Symptoms are aggravated or relieved by nothing. Hospital Course: Problem List: NSTEMI Abdominal pain GERD Chronic atrial fibrillation Hypertension Headache, chronic Patient presented with abdominal pain, fatigue, weakness, dizziness. CT abdomen/pelvis was negative for any acute findings. Patients abdominal pain quickly resolved with protonix. Patients abdominal pain is possibly due to GERD. He was also noted to have elevated troponin levels and concern for acute coronary syndrome. Cardiology was consulted. Stress test reported a Moderate sized area of mild stress-induced ischemia involving the inferior wall and septal wall. Dr. Warner recommended cardiac catheterization. Cardiac cath was performed on 10/13 and noted some atherosclerotic disease. Dr. Warner recommended medical management with statin and patient was stable for discharge home. No stent / intervention needed at this time. new / change in prescriptions: start atorvastatin 40mg PO 1 tab at bedtime. continue honme protonix 40mg daily follow up: PCP 3-5 days Cardiology within 1-2 weeks Physical Exam: GEN: Alert, oriented, NAD HEENT: Normal conjunctiva, sclera anicteric CV: Regular rate and rhythm, no edema Pulm: Nonlabored respirations on room air ABD: Soft, nontender, nondistended Neuro: Normal speech, normal affect Vital Signs/Physical Exam: Temp Pulse Resp BP Pulse Ox 98.1 F 57 14 155/57 H 97 10/13/22 13:10 10/13/22 13:10 10/13/22 13:10 10/13/22 13:10 10/13/22 12:00 Laboratory Data at Discharge: WBC 6.60 thou/uL (4.3-10.9) 10/10/22 03:04 Hgb 12.5 g/dL (13.6-17.9) L 10/10/22 03:04 Hct 37.6 % (39.6-49.0) L 10/10/22 03:04 Plt Count 183 thou/uL (152-406) 10/10/22 03:04 Sodium 134 mEq/L (136-145) L 10/10/22 03:04 Potassium 4.1 mEq/L (3.5-5.1) 10/10/22 03:04 BUN 18 mg/dL (7-18) 10/10/22 03:04 Creatinine 0.76 mg/dL (0.70-1.30) 10/10/22 03:04 Glucose 92 mg/dL (74-106) 10/10/22 03:04 Phosphorus 3.1 mg/dL (2.5-4.9) 10/06/22 13:38 Magnesium 2.0 mg/dL (1.6-2.4) 10/06/22 13:38 Total Bilirubin 0.7 mg/dL (0.2-1.0) 10/06/22 12:23 AST 11 U/L (15-37) L 10/06/22 12:23 ALT 16 U/L (16-61) 10/06/22 12:23 Alkaline Phosphatase 74 U/L (45-117) 10/06/22 12:23 Lipase 21 U/L (13-75) 10/06/22 12:23 Home Medications: Apixaban [Eliquis] 1 tab PO DAILY 10/06/22 Aspirin Chewable [Aspirin Chewable*] 1 tab PO DAILY 10/06/22 Dicyclomine [Bentyl*] 20 mg PO QID 10/06/22 Enalapril Maleate 2 tab PO DAILY 10/06/22 Atorvastatin Calcium [Lipitor] 40 mg PO BEDTIME 30 Days #30 tab 10/13/22 Pantoprazole [Protonix Tab*] 1 tab PO DAILY 30 Days #30 tab 10/13/22 Apixaban [Eliquis] 5 mg PO BID 30 Days #60 tab 10/14/22 New Medications: Apixaban [Eliquis] 5 mg PO BID 30 Days #60 tab Atorvastatin Calcium [Lipitor] 40 mg PO BEDTIME 30 Days #30 tab Pantoprazole [Protonix Tab*] 1 tab PO DAILY 30 Days #30 tab Physician Discharge Instructions: Patient presented with abdominal pain, fatigue, weakness, dizziness. CT abdomen/pelvis was negative for any acute findings. Patients abdominal pain quickly resolved with protonix. Patients abdominal pain is possibly due to GERD. He was also noted to have elevated troponin levels and concern for acute coronary syndrome. Cardiology was consulted. Stress test reported a Moderate sized area of mild stress-induced ischemia involving the inferior wall and septal wall. Dr. Warner recommended cardiac catheterization. Cardiac cath was performed on 10/13 and noted some atherosclerotic disease. Dr. Warner recommended medical management with statin and patient was stable for discharge home. No stent / intervention needed at this time. new / change in prescriptions: start atorvastatin 40mg PO 1 tab at bedtime. continue honme protonix 40mg daily follow up: PCP 3-5 days Cardiology within 1-2 weeks Followup: NONE,NONE [Primary Care Provider] - Time spent managing pt's care (in minutes): 45
[2022-10-13] MEDS ORDERED: TICAGRELOR 90 MG TABLET PO ONE (15:12)
[2022-10-13] MEDS ORDERED: CLOPIDOGREL 75 MG TABLET ONE (15:12)
[2022-10-13] MEDS ORDERED: ASPIRIN 325 MG TAB ONE (15:12)
[2022-10-13] MEDS ORDERED: NALOXONE 0.4 MG/ML VIAL ONE (15:13)
[2022-10-13] MEDS ORDERED: FLUMAZENIL 0.1 MG/ML (5 mL VIAL) IV ONE (15:13)
[2022-10-13 16:11] VITALS: TEMP 97.9
[2022-10-13 16:59] VITALS: BP 133/50; O2SAT 94
--- NOTE | 2022-10-13 18:24 | OP ---
Date of Procedure: 10/13/2022 Surgeon: VANDANA CÁRDENAS Procedure Performed: Selective coronary angiogram. Indication: Non-ST elevation myocardial infarction. Access: Right radial artery 6-[place] closed with TR band. Complications: None. Bleeding: Less than 20 mL. Anesthesia: Total sedation time was 50 minutes. Description Of Procedure: After risks, benefits, alternatives were explained, the patient agreed to procedure and signed informed consent. [facility], prepped and draped in the usual sterile fashion. Then, I accessed right radial artery using pediatric micropuncture kit, placed 6-[place] Slender sheath, took 5-[place] 4.0 catheter into th e aortic root, engaged the left main, took standard views and then RCA and took standard views and th en catheter was pushed into the LV, measured the LVEDP and pullback did not any record any gradient. Findings: 1.Left main; large and normal. 2.LAD; large vessel with possible mild proximal disease 20%, but it is likely down tapering the vess el when the diagonal takes off. The diagonal branch is normal. 3.Left circumflex is normal. 4.RCA; large and dominant and has distal 40% stenosis in the area, but it is less than 40 % stenosed. 5.LVEDP normal at 5 mmHg. Conclusion: 1.Mild nonobstructive coronary artery disease. 2.Normal LVEDP. Recommendation: The patient can be released from Cardiology standpoint on medical management, aspiri n, and statin and a beta-[place] and follow up as an outpatient. SR/MELISSAL Voice ID: [id number] Report ID: [id number]
--- NOTE | 2022-10-17 18:03 | CON ---
Date of Consultation: 10/13/2022 Reason For Consultation: CHEST pain with abnormal stress test. History Of Present Illness: An 82-year-old male with history of hypertension, atrial fibrillation, e nlarged prostate, presented to the emergency room with abdominal discomfort. He had also some chest discomfort and recent stress test was abnormal. Denies having any nausea, vomiting, diarrhea. Past Medical History: As outlined above in the HPI. Medications: Refer to reconciliation sheet for detailed list. Allergies: NO KNOWN DRUG ALLERGIES. Family History: No premature coronary artery disease or cancer. Social History: He does not smoke or drink. Does not use any drugs. Review of Systems: All systems reviewed and they were negative except what mentioned in HPI. Physical Examination: Vital Signs: Reviewed. Head and Neck: Pupils are equal, reactive to light. Intact eye movements. No JVD. No cervical lym phadenopathy. Neck is supple. Thyroid is not enlarged. Lungs: Clear to auscultation bilaterally. No rhonchi, wheezing, or crackles. No accessory muscle u se. Heart: Regular rate and rhythm. No extra sounds. Abdomen: Soft, nontender. Bowel sounds positive. No organomegaly. No masses or hernia. No rigidi ty or rebound. Extremities: No edema, clubbing, or cyanosis. Intact pulses. Skin: No rash. Neurologic: Alert, awake, oriented x3. No acute focal deficits appreciated. Investigations: Labs were reviewed. Assessment And Recommendations: Chest pain, elevated troponin, and abnormal stress test. Coronary a ngiogram was performed today and no significant coronary artery disease. His symptoms are not cardia c. Look for other sources if his abdominal discomfort could be a gastrointestinal tract in origin. From Cardiology perspective, no further workup is needed after this coronary angiogram with mild ana nary artery disease except lifestyle modification, baby aspirin, high-dose statin. Thank you for the consult. Cardiology will sign off. SR/MODL Voice ID: [id number] Report ID: [id number]
== END 2022-10-13 18:32 | disposition home or self-care (01) | DRG 281 ==
LOC: ER 11:59 → ERHOLD 16:00 → 4TH 17:04 → OBSVTOIN 10-10 16:06
PROVIDERS: ADMIT Internal Medicine; ATTEND Hospitalist
PROC: 4A023N7 Measurement of Cardiac Sampling and Pressure, Left Heart, Percutaneous Approach (ICD-10-PCS; principal; 2022-10-13)
PROC: B2111ZZ Fluoroscopy of Multiple Coronary Arteries using Low Osmolar Contrast (ICD-10-PCS; 2022-10-13)
DX: I21.4 Non-ST elevation (NSTEMI) myocardial infarction (principal); I48.20 Chronic atrial fibrillation, unspecified; I10 Essential (primary) hypertension; I45.10 Unspecified right bundle-branch block; N40.0 Benign prostatic hyperplasia without lower urinary tract symptoms; K21.9 Gastro-esophageal reflux disease without esophagitis; D63.8 Anemia in other chronic diseases classified elsewhere; I25.10 Atherosclerotic heart disease of native coronary artery without angina pectoris; R94.39 Abnormal result of other cardiovascular function study; R51.9 Headache, unspecified; R77.8 Other specified abnormalities of plasma proteins; Z88.6 Allergy status to analgesic agent; Z90.49 Acquired absence of other specified parts of digestive tract; Z85.46 Personal history of malignant neoplasm of prostate; Z79.01 Long term (current) use of anticoagulants; Z79.82 Long term (current) use of aspirin; Z79.899 Other long term (current) drug therapy; Z85.028 Personal history of other malignant neoplasm of stomach
CPT/HCPCS: 36415; 74176; 76937; 78452; 80048; 80053; 81001; 83690; 83735; 84100; 84439; 84443; 84484; 85025; 93005; 93017; 93458; 99285; A9500; C1893; C9113; J0360; J0461; J1644; J2001; J2250; J2310; J2785; J3010; J7030; Q9966

== ENCOUNTER 2022-10-13 19:56 | Emergency (ER) | payer SELFPAY ==
--- OUTSIDE RECORDS SUMMARY | 2022-10-13 19:59 | XMS REPORT | Clinical Summary ---
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) 10/03/2022 Emergency Emergency Medicine Josiah Garay Hematuria (Primary Dx); MD Gianfranco Hypertension; Urinary tract i nfection 10/03/2022 Travel 06/09/2022 Refill Cardiology Aleksandr, Essential (prim aislinn) ELIZABETH Claros hypertension 12/02/2021 Refill Cardiology Aleksandr Essential (prim aislinn) ELIZABETH Claros hypertension 11/19/2021 Refill Genitourinary 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 Refill Genitourinary Oncology Yfn Palacios Aden ocarcSandhya prostate after 10/13/2021 Immunizations Name Administration Dates Next Due Kendra SARS-CoV-2 Vaccination 05/31/2020 remdesivir 03/07/2020, 03/06/2020, 03/05/2020, 03/04/2020, 03/03/2020 Surgical History Surgery Date Site/Laterality Comments LAPAROSCOPIC CHOLECYSTECOMY PROSTATE BIOPSY 09/14/2019 HERNIA REPAIR Bilateral SHOULDER SURGERY 03/14/2011 - Right 03/13/2012 LA COLONOSCOPY FLX DX 07/28/2020 N/A Procedure: DIAGNOSTIC [...] at Date Recorded Male 05/22/2021 5:00 PM [employer] Job Start Date Occupation Industry Not on [...] Routine 10/03/2022 12:17 DIFFERENTIAL PM CDT after 10/13/2021 Results (ABNORMAL) Urinalysis Microscopic Exam (10/03/2022 12:35 PM CDT) athologist Signature UA WBC NOT SEEN 0 - 2 /HPF [facility] Comment: Some reporting parameters within the Uri nalysis test have changed due to the implementation of new instrumentation in the [facility] [place], allowing greater sensitivity of measurement. Urinalysis results rep orted by the [facility] [place] using existing instrumentation, as well as Urinalysis t esting performed manually or by backup methodology at the [facility] [place] will remain relatively unchanged. New reporting parameters and units will not be reported for all campuses. UA RBC >182 (H) 0 - 2 /HPF [facility] UA Mucous NOT SEEN Not Seen-Trace /HPF AL MD [facility] UA Bacteria NOT SEEN NOT SEEN /HPF [facility] UA Squam Epi NOT SEEN None-Occasional /HPF [facility] Specimen Anatomical Collection Method Collection Time Receive d Time (Source) Location / / Volume Laterality Urine 10/03/2022 12:35 10/03/2022 PM CDT 12:40 PM CDT Josiah Garay MD LAB BLOOD ORDERABLES Performing Organization Address City/State/ZIP Code Phon e Number [facility] CANCER Unless otherwise noted, [place] [address] TAR HEEL all lab tests performed by: Division of Pathology and Laboratory Medicine [place] Lig[address] Vu (ABNORMAL) Urinalysis w/Microscopic if Indicated (10/03/2022 12:35 PM CDT) [facility] Method Time Signature UA Color Audelia (A) Straw-Yel [facility] UA Appear Cloudy (A) Clear [facility] UA Glucose NEG NEG mg/dL [facility] UA Bili NEG NEG [facility] UA Ketones 20 (A) NEG mg/dL [facility] UA Spec Grav 1.014 1.003 - AL MD 1.035 [facility] UA Blood Large (A) NEG [facility] UA pH 7.0 5.0 - 9.0 [facility] UA Protein 100 (A) NEG mg/dL [facility] UA Urobilinogen NEG NEG [facility] UA Nitrite NEG NEG [facility] UA Leuk Est Small (A) NEG [facility] Specimen Anatomical Collection Method Collection Time Receive d Time (Source) Location / / Volume Laterality Urine 10/03/2022 12:35 10/03/2022 PM CDT 12:40 PM CDT Josiah Garay MD URINE ORDERABLES Performing Organization Address City/State/ZIP Code Phon e Number [facility] Unless otherwise noted, [address] all lab tests performed by: Division of Pathology and Laboratory Medicine [address] [place] [address] (ABNORMAL) Urine Culture (10/03/2022 12:35 PM CDT) [facility] Method Time Signature Final Report <10,000 cfu/ml Normal site sapphire present. AL Generally of low significance. IDALIA Correlate with clinical data and culture history. [facility]CER CENTER (A) Specimen Anatomical Collection Method Collection Time Receive d Time (Source) Location / / Volume Laterality Urine 10/03/2022 12:35 10/03/2022 2:32 PM CDT PM CDT Josiah Garay MD MICROBIOLOGY - GENERAL ORDER AMINAH Performing Organization Address City/State/ZIP Code Phon e Number [facility] Unless otherwise noted, [address] all lab tests performed by: Division of Pathology and Laboratory Medicine [address] [place] [address] .Serum Creatinine (10/03/2022 12:17 PM CDT) athologist Signature Creatinine 0.78 0.67 - 1.17 [facility] mg/dL [facility] Specimen Anatomical Collection Method Collection Time Receive d Time (Source) Location / / Volume Laterality Blood 10/03/2022 12:17 10/03/2022 PM CDT 12:25 PM CDT Josiah Garay MD LAB BLOOD ORDERABLES Performing Organization Address City/[facility]/ZIP Code Phon e Number [facility] Unless otherwise noted, [place] [address] TAR HEEL all lab tests performed by: Division of Pathology and Laboratory Medicine [address] (ABNORMAL) .CBC (10/03/2022 12:17 PM CDT) athologist Signature WBC 6.0 4.1 - 10.5 [facility] K/[facility] RBC 4.48 4.30 - AL MD 6.04 /[facility] Hgb 13.1 (L) 13.3 - AL MD 17.4 gm/dL [facility] Hct 40.4 39.5 - AL MD 51.8 % [facility] MCV 90 82 - 99 [facility] MCH 29.2 26.6 - AL MD 33.2 pg [facility] MCHC 32.4 31.1 - AL MD 35.2 gm/dL [facility] RDW-SD 50.4 (H) 37.5 - AL MD 49.7 [facility] RDW-CV 15.3 11.6 - AL MD 15.5 % [facility] Platelet count 181 160 - 397 [facility] MPV 10.7 9.1 - 12.6 [facility] INRBC 0.0 0.0 - 0.1 AL MD /100 WBC [facility] Comment: The INRBC (instrument NRBC) [...] MD LAB BLOOD ORDERABLES Performing Organization Address City/[facility] Phon e Number [facility] Unless otherwise noted, [address] all lab tests performed by: Division of Pathology and Laboratory Medicine [address] [facility] Glomerular Filtration Rate (10/03/2022 12:17 PM CDT) athologist Signature eGFR 90 >=60 [facility] mL/min/1.73 [facility] CENTER sq. m Comment: The [...] MD LAB BLOOD ORDERABLES Performing Organization Address [facility] Phon e Number [facility] Unless otherwise noted, [address] all lab tests performed by: Division of Pathology and Laboratory Medicine [facility]5 [facility] Fractionated Bilirubin (10/03/2022 12:17 PM CDT) athologist Signature Bili Total 0.8 <=1.2 mg/dL [facility] Comment: Indocyanine Green (ICG) may cause falsel y elevated bilirubin results. Total and direct bilirubin must not be measured from samples containing indocyanine green. False elevation of total bilirubin can b e seen in patients with IgG concentrations above 28 g/L. Bili Direct 0.2 <=0.3 mg/dL [facility] Comment: Indocyanine Green (ICG) may cau se falsely elevated bilirubin results. Total and direct bilirubin must not be measure d from samples containing indocyanine green. Bili Indirect 0.6 0.0 - 0.9 mg/dL AL MD [facility] Specimen Anatomical Collection Method Collection Time Receive d Time (Source) Location / / Volume Laterality Blood 10/03/2022 12:17 10/03/2022 PM CDT 12:25 PM CDT Josiah Garay MD LAB BLOOD ORDERABLES Performing Organization Address City/State/ZIP Code Phon e Number [facility] Unless otherwise noted, [address] all lab tests performed by: Division of Pathology and Laboratory Medicine [facility] (10/03/2022 12:17 PM CDT) athologist [facility] aPTT 31.7 24.1 - 35.5 [facility] second(s) [facility] Specimen Anatomical Collection Method Collection Time Receive d Time (Source) Location / / Volume Laterality Blood 10/03/2022 12:17 10/03/2022 PM CDT 12:22 PM CDT Josiah Garay MD LAB BLOOD ORDERABLES Performing Organization Address City/State/ZIP Code Phon e Number [facility] Unless otherwise noted, [address] all lab tests performed by: Division of Pathology and Laboratory Medicine [address]clean (ABNORMAL) Differential (10/03/2022 12:17 PM CDT) athologist Signature Neutrophil % 76.9 (H) 43.2 - [facility] 72.7 % [facility] Lymphocyte % 11.5 (L) 16.8 - [facility] 46.2 % [facility] Monocyte % 9.8 5.1 - 12.5 [facility] % [facility] Eosinophil % 0.8 0.4 - 6.3 [facility] % [facility] Basophil % 0.7 0.2 - 1.4 [facility] % [facility] IGRE % 0.3 0.1 - 1.5 [facility] % [facility] Comment: IGRE % count includes Metamyelo cytes, Myelocytes, and Promyelocytes. Neutrophil Abs 4.60 1.95 - 7.25 K/uL AL [facility] Lymphocyte Abs 0.69 (L) 1.01 - 3.24 K/uL AL MD JASS CARLSON [facility] Monocyte Abs 0.59 0.24 - 0.85 K/uL AL [facility] Eosinophil Abs 0.05 0.02 - 0.50 K/uL AL MD JASS CARLSON [facility] Basophil Abs 0.04 0.02 - 0.09 K/uL AL [facility] IG Abs 0.02 0.01 - 0.12 K/uL AL MD COMPA Valdez [facility] Specimen Anatomical Collection Method Collection Time Receive d Time (Source) Location / / Volume Laterality Blood 10/03/2022 12:17 10/03/2022 PM CDT 12:22 PM CDT Josiah Garay MD LAB BLOOD ORDERABLES Performing Organization Address City/[facility]/ZIP Code Phon e Number [facility] Unless otherwise noted, [address] all lab tests performed by: Division of Pathology and Laboratory Medicine [address] Prothrombin Time with INR (10/03/2022 12:17 PM CDT) P athologist Signature PT 13.7 11.9 - 14.5 [facility](s) [facility] INR 1.06 0.87 - 1.12 [facility] Specimen Anatomical Collection Method Collection Time Receive d Time (Source) Location / / Volume Laterality Blood 10/03/2022 12:17 10/03/2022 PM CDT 12:22 PM CDT Josiah Garay MD LAB BLOOD ORDERABLES Performing Organization Address City/State/ZIP Code Phon e Number [facility] Unless otherwise noted, [address] all lab tests performed by: Division of Pathology and Laboratory Medicine [address] BUN (10/03/2022 12:17 PM CDT) P athologist Signature BUN 13 6 - 23 [facility] mg/dL [facility] Specimen Anatomical Collection Method Collection Time Receive d Time (Source) Location / / Volume Laterality Blood 10/03/2022 12:17 10/03/2022 PM CDT 12:25 PM CDT Josiah Garay MD LAB BLOOD ORDERABLES Performing Organization Address City/State/ZIP Code Phon e Number [facility] Unless otherwise noted, [address] all lab tests performed by: Division of Pathology and Laboratory Medicine [facility] Ligiagermán Mcdonaldd ALT (10/03/2022 12:17 PM CDT) P athologist Signature ALT 10 <=41 U/L [facility] Specimen Anatomical Collection Method Collection Time Receive d Time (Source) Location / / Volume Laterality Blood 10/03/2022 12:17 10/03/2022 PM CDT 12:25 PM CDT Josiah Garay MD LAB BLOOD ORDERABLES Performing Organization Address City/[facility]/ZIP Code Phon e Number [facility] Unless otherwise noted, [address] all lab tests performed by: Division of Pathology and Laboratory Medicine [address] [place] [address] [place] Aspartate Aminotransferase (10/03/2022 12:17 PM CDT) P athologist Signature AST 17 <=40 U/L [facility] Specimen Anatomical Collection Method Collection Time Receive d Time (Source) Location / / Volume Laterality Blood 10/03/2022 12:17 10/03/2022 PM CDT 12:25 PM CDT Josiah Garay MD LAB BLOOD ORDERABLES Performing Organization Address City/[facility]/ZIP Code Phon e Number [facility] Unless otherwise noted, [address] all lab tests performed by: Division of Pathology and Laboratory Medicine [address] [place] [address] Mirella Total Protein (10/03/2022 12:17 PM CDT) P athologist Signature Total Protein 6.8 6.4 - 8.3 [facility] g/dL [facility] Specimen Anatomical Collection Method Collection Time Receive d Time (Source) Location / / Volume Laterality Blood 10/03/2022 12:17 10/03/2022 PM CDT 12:25 PM CDT Josiah Garay MD LAB BLOOD ORDERABLES Performing Organization Address City/State/ZIP Code Phon e Number [facility] Unless otherwise noted, [address] all lab tests performed by: Division of Pathology and Laboratory Medicine [address] [place] [address] [place] Phosphorus Level (10/03/2022 12:17 PM CDT) athologist [facility] Phosphorus 3.1 2.5 - 4.5 [facility] mg/dL [facility] Specimen Anatomical Collection Method Collection Time Receive d Time (Source) Location / / Volume Laterality Blood 10/03/2022 12:17 10/03/2022 PM CDT 12:25 PM CDT Josiah Garay MD LAB BLOOD ORDERABLES Performing Organization Address City/[facility]/ZIP Code Phon e Number [facility] Unless otherwise noted, [address] all lab tests performed by: Division of Pathology and Laboratory Medicine [address] [place], [place] [address]d Alkaline Phosphatase (10/03/2022 12:17 PM CDT) athologist [facility] Alk Phos 82 40 - 129 [facility] Specimen Anatomical Collection Method Collection Time Receive d Time (Source) Location / / Volume Laterality Blood 10/03/2022 12:17 10/03/2022 PM CDT 12:25 PM CDT Josiah Garay MD LAB BLOOD ORDERABLES Performing Organization Address City/[facility] Phon e Number [facility] Unless otherwise noted, [address] all lab tests performed by: Division of Pathology and Laboratory Medicine [address] [place], [place] [address] Magnesium Level (10/03/2022 12:17 PM CDT) athologist [facility] Magnesium 2.1 1.6 - 2.6 [facility] mg/dL [facility] Specimen Anatomical Collection Method Collection Time Receive d Time (Source) Location / / Volume Laterality Blood 10/03/2022 12:17 10/03/2022 PM CDT 12:25 PM CDT Josiah Garay MD LAB BLOOD ORDERABLES Performing Organization Address City/[facility]/ZIP [facility] Phon e Number [facility] Unless otherwise noted, [address] all lab tests performed by: Division of Pathology and Laboratory Medicine [address] [place] [address] [place] (ABNORMAL) LDH (10/03/2022 12:17 PM CDT) athologist [facility] LDH 494 (H) 135 - 225 [facility] Comment: Specimen is hemolyzed. Results may be fa lsely elevated. Repeat test if needed. Results greater than 1651 U/L may not be reliable due to matrix effect with extended dilution as it exceeds the parking regulation enforcement officer's recommended limit. Caution should be exercised when interpreting such values and done in conjunction with clinical context. Specimen Anatomical Collection Method Collection Time Receive d Time (Source) Location / / Volume Laterality Blood 10/03/2022 12:17 10/03/2022 PM CDT 12:25 PM CDT Josiah Garay MD LAB BLOOD ORDERABLES Performing Organization Address City/[facility]/ZIP [facility] Phon e Number [facility] Unless otherwise noted, [address] all lab tests performed by: Division of Pathology and Laboratory Medicine [facility] [place] Glucose Level (10/03/2022 12:17 PM CDT) athologist Signature Glucose Level 90 70 - 99 [facility] mg/dL [facility] Comment: Effective 10/08/15, the glucose reference intervals have been updated based on [place] Diabetes [employer] guidelines (Standards of Medical [...] Organization Address City/State/ZIP Code Phon e Number [facility] Unless otherwise noted, [address] all lab tests performed by: Division of Pathology and Laboratory Medicine [address] [place] Calcium Level (10/03/2022 12:17 PM CDT) athologist Signature Calcium Lvl 9.1 8.4 - 10.2 [facility] mg/dL [facility] Specimen Anatomical Collection Method Collection Time Receive d Time (Source) Location / / Volume Laterality Blood 10/03/2022 12:17 10/03/2022 PM CDT 12:25 PM CDT Josiah Garay MD LAB BLOOD ORDERABLES Performing Organization Address City/[facility]/ZIP Code Phon e Number [facility] Unless otherwise noted, [address] all lab tests performed by: Division of Pathology and Laboratory Medicine [facility] CenterLuisa Vu Albumin Level (10/03/2022 12:17 PM CDT) P athologist Signature Albumin Lvl 4.2 3.5 - 5.2 [facility] gm/dL [facility] Specimen Anatomical Collection Method Collection Time Receive d Time (Source) Location / / Volume Laterality Blood 10/03/2022 12:17 10/03/2022 PM CDT 12:25 PM CDT Josiah Garay MD LAB BLOOD ORDERABLES Performing Organization Address [facility] Phon e Number [facility] Unless otherwise noted, [address] all lab tests performed by: Division of Pathology and Laboratory Medicine [facility] [place] Vu Electrolyte Panel (10/03/2022 12:17 PM CDT) athologist Signature Sodium Lvl 137 136 - 145 [facility] mEq/L [facility] Potassium Lvl 3.8 3.5 - 5.1 [facility] mEq/L [facility] Chloride 103 98 - 107 [facility] mEq/L [facility] CO2 24 22 - 29 [facility] mEq/L [facility] Anion Gap 10 4 - 14 [facility] mEq/L [facility] Specimen Anatomical Collection Method Collection Time Receive d Time (Source) Location / / Volume Laterality Blood 10/03/2022 12:17 10/03/2022 PM CDT 12:25 PM CDT Josiah Garay MD LAB BLOOD ORDERABLES Performing Organization Address City/[facility]/ZIP Code Phon e Number [facility] Unless otherwise noted, [address] all lab tests performed by: Division of Pathology and Laboratory Medicine Rashad Vu after 10/13/2021 Advance Directives Code Status Date Activated Date Inactivated Comments Full Code 05/22/2021 4:44 PM 05/26/2021 7:54 PM Code Status Date Activated Date Inactivated Comments Full Code 05/22/2021 4:44 PM 05/22/2021 4:44 PM Full Code 08/21/2020 11:52 PM 08/24/2020 5:55 PM Full Code 03/02/2020 8:29 PM 03/07/2020 11:09 PM Full Code 02/26/2020 9:33 PM 02/29/2020 8:36 PM Care Teams C Consultant Relationship Specialty Start Date End Date Pako Lopez MD PCP - External Urology 10/11/19 [facility]: Referring [address] [place] [id number] Nick Delgado MD PCP - General Genitourinary Oncology 01/25/[address] [place] [address] [id number] Margarita Saini-[facility], Consulting Physician Radiation Oncology 02/14/[address] [place] [address] [id number]
--- OUTSIDE RECORDS SUMMARY | 2022-10-13 20:13 | XMS REPORT | Continuity of Care Document ---
:1940 Author Organization [facility] t Address [address] [place] [place] [address] Care Team Providers Name Role Phone [phone] Primary Care Physician Unavailable Kirstie Joyner APRN Attending Clinician Tanisha ANDINO, Josiah Medel Attending Clinician Harlan Murray Attending Clinician Kye Palacios MD Attending Clinician Ashley Jones APRN Attending Clinician Nida Shaffer MD Attending Clinician Zoey Cummins MD Attending Clinician Srinivas Nguyen MD Attending Clinician Almas Clements MD Attending Clinician OMA HOANG Attending Clinician Unavailable Barrett Jones APN Attending Clinician Oma Mederos Attending Clinician Serena Rodriges Attending Clinician Angelika Sharma RN Attending Clinician Unavailable [facility]ician Sanjuanita Stratton NP Attending Clinician [...] PAKO LOPEZ Attending Clinician Unavailable Doctor Unassigned, [place] Attending Clinician Unavailable Draw, [facility] Attending [...] of level level 00:00: MD Adeola santacruz [facility] Dyspnea Dyspnea Disease Active Univers 3-11 ity of 00:00: MD Adeola santacruz [facility] Abdominal Abdominal Disease Active Uni vers pain pain 3-11 ity of 00:00: 00 MD Adeola santacruz [facility] Atrial Atrial Disease Active Last Univers fibrillati fibrillati 6-11 Assessmen ity of on on 00:00: t & Plan: 00 Juan A fay of this Andzoraidao note n might be Cancer different Center [...] Disease Active U nivers 6-11 ity of 00:: MD Adeola santacruz [facility] Pneumonia Pneumonia Disease Active Uni vers 6-11 ity of 00:: MD Adeola santacruz [facility] Hypotensio Hypotensio Disease Active U taylor santacruz 6-11 ity of 00:00: MD Adeola santacruz [facility] Insomnia Insomnia Disease Active Unive rs 3-05 ity of 00:00: 00 MD Adeola santacruz 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 Overweight Overweight Disease Active U nivers 2-06 ity of 00:00: 00 MD Adeola santacruz 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 2-03 ity of [place] anxiety anxiety 00 depressed depressed n mood mood [facility] Nocturia Nocturia Disease Active 2019-03 Unive rs 2-03 ity of 00:00: 00 MD Adeola santacruz [facility] [place] Essential Essential Disease Active 2019-03 Last Uni vers (primary) (primary) 2- Assessmen i ty of hypertensi hypertensi 00:00: [...] 2-02 it y of emia emia 00:00: [place] 00 MD Adeola santacruz [facility] 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 History SDOH University o f Alcohol Comment [facility] Exposure to Not sure University of SARS-CoV-2 (event) [facility] [place] [facility] Alcohol intake 2022-10-03 2022-10-03 Ex-drinker University of 00:00:00 00:00:00 (finding) [place] MD Dave gant [facility] Tobacco use and 2020-02-13 2020-02-13 Smokeless Universit y of exposure 00:00:00 00:00:00 tobacco non-user [facility] Cigarettes smoked 2020-02-13 2020-02-13 Univers ity of current (pack per 00:00:00 00:00:00 [facility] ) - Reported Cancer Ce nter Cigarette 2020-02-13 2020-02-13 University of pack-years 00:00:00 00:00:00 [place] MD Dave gant [facility] History SDOH 2020-02-13 2020-02-13 1 University o f Alcohol Frequency 00:00:00 00:00:[address] [facility] History SDOH 2020-02-13 2020-02-13 99 University o f Alcohol Std Drinks 00:00:00 00:00:00 [facility] History SDOH 2020-02-13 2020-02-13 1 University o f Alcohol Binge 00:00:00 00:00:00 [place] MD Jaclyn noel [facility] Tobacco Comment 2020-02-13 2020-02-13 used to smoke; Unive rsity of 00:00:00 00:00:00 quit 12 years [place] MD Jaclyn noel [facility] Sex Assigned At [birth year] M Universit y of 00:00:00 00:00:00 [place] MD Acosta [facility] Smoking Status Start Date Stop Date Source Unknown if ever smoked [facility] Ex-smoker 2020-02-13 00:00:00 2020-02-13 00:00:00 [facility] MD [facility] Medications Ordered Filled Start Stop Current Ordering Indication Dosage Frequency Signature Comments Components Source Medication Medication Date Date Medication? Clinician (SIG) Name Name amoxicillin Yes Urinary 875mg Take 1 Univers -clavulanat 7-23 tract tablet ity o f e 00:00: [place] (875 mg[place] (Aug[place] 00 by mouth 875 mg-125 twice [place]o mg per daily. n tablet [facility] amoxicillin Yes Urinary 875mg Take 1 Univers -clavulanat 7-23 tract tablet ity o f e 00:00: infection (875 mg[place] (Aug[place]in[place] 00 by mouth 875 mg-125 twice [place] mg per daily. n tablet [facility] amoxicillin Yes Urinary 875mg Take 1 Univers -clavulanat 7-23 tract tablet ity o f e 00:00: infection (875 mg[place] (Augmentin) 00 by mouth 875 mg-125 twice [place] mg per daily. n tablet [facility] TAKE 1 No 60 TABLET 9-30 DAILY. 00:00: 00 TAKE 1 0 No 60 TABLET 9-30 DAILY. 00:00: 00 metoprolol Yes Essential TAKE ONE Univers succinate 9-21 (primary) TABLET BY ity of (TOPROL XL) 00:00: hypertensio MOUTH ONCE [place] 25 mg 24 hr 00 n DAILY ( tablet HOLD DOSE Anderso IF SBP n <110 OR HR Cancer <55 ) [place] metoprolol Yes Essential TAKE ONE Univers succinate 9-21 (primary) TABLET BY ity of (TOPROL XL) 00:00: hypertensio MOUTH ONCE [place] 25 mg 24 hr 00 n DAILY ( tablet HOLD DOSE Anderso IF SBP n <110 OR HR Cancer <55 ) [place] metoprolol Yes Essential TAKE ONE Univers succinate 9-21 (primary) TABLET BY ity of (TOPROL XL) 00:00: hypertensio MOUTH ONCE [place] 25 mg 24 hr 00 n DAILY ( tablet HOLD DOSE Anderso IF SBP n <110 OR HR Cancer <55 ) Center metoprolol Yes Essential TAKE ONE Univers succinate 9-21 (primary) TABLET BY ity of (TOPROL XL) 00:00: hypertensio MOUTH ONCE [place] 25 mg 24 hr 00 n DAILY ( MD tablet HOLD DOSE Anderso IF SBP n <110 OR HR Cancer <55 ) Center metoprolol Yes Essential TAKE ONE Univers succinate 9-21 (primary) TABLET BY ity of (TOPROL XL) 00:00: hypertensio MOUTH ONCE [place] 25 mg 24 hr 00 n DAILY ( MD tablet HOLD DOSE Anderso IF SBP n <110 OR HR Cancer <55 ) Center metoprolol Yes Essential TAKE ONE Univers succinate 9-21 (primary) TABLET BY ity of (TOPROL XL) 00:00: hypertensio MOUTH ONCE [place] 25 mg 24 hr 00 n DAILY ( MD tablet HOLD DOSE Anderso IF SBP n <110 OR HR Cancer <55 ) Center metoprolol Yes Essential TAKE ONE Univers succinate 9-21 (primary) TABLET BY ity of (TOPROL XL) 00:00: hypertensio MOUTH ONCE [place] 25 mg 24 hr 00 n DAILY ( MD tablet HOLD DOSE Anderso IF SBP n <110 OR HR Cancer <55 ) Center metoprolol Yes Essential TAKE ONE Univers succinate 9-21 (primary) TABLET BY ity of (TOPROL XL) 00:00: hypertensio MOUTH ONCE [place] 25 mg 24 hr 00 n DAILY ( MD tablet HOLD DOSE Anderso IF SBP n <110 OR HR Cancer <55 ) Center metoprolol Yes Essential TAKE ONE Univers succinate 9-21 (primary) TABLET BY ity of (TOPROL XL) 00:00: hypertensio MOUTH ONCE [place] 25 mg 24 hr 00 n DAILY ( MD tablet HOLD DOSE Anderso IF SBP n <110 OR HR Cancer <55 ) Center metoprolol Yes Essential TAKE ONE Univers succinate 9-21 (primary) TABLET BY ity of (TOPROL XL) 00:00: hypertensio MOUTH ONCE [place] 25 mg 24 hr 00 n DAILY ( MD tablet HOLD DOSE Anderso IF SBP n <110 OR HR Cancer <55 ) [place] Dose No Unknown - 00:00: 00 Dose No Unknown 9-14 00:00: 00 pantoprazol 0 Yes Adenocarcin TAKE ONE Univers e 9-08 geoff of TABLET BY ity of (PROTONIX) 00:00: prostate MOUTH [place] 40 mg EC 00 DAILY MD tablet [facility] pantoprazol Yes Adenocarcin TAKE ONE Univers e 9-08 geoff of TABLET BY ity of (PROTONIX) 00:00: prostate MOUTH [place] 40 mg EC 00 DAILY MD tablet [facility] pantoprazol Yes Adenocarcin TAKE ONE Univers e 9-08 geoff of TABLET BY ity of (PROTONIX) 00:00: prostate MOUTH [place] 40 mg EC 00 DAILY MD tablet [facility] pantoprazol Yes Adenocarcin TAKE ONE Univers e 9-08 geoff of TABLET BY ity of (PROTONIX) 00:00: prostate MOUTH [place] 40 mg EC 00 DAILY MD tablet [facility] pantoprazol Yes Adenocarcin TAKE ONE Univers e 9-08 geoff of TABLET BY ity of (PROTONIX) 00:00: prostate MOUTH [place] 40 mg EC 00 DAILY MD tablet [facility] pantoprazol Yes Adenocarcin TAKE ONE Univers e 9-08 geoff of TABLET BY ity of (PROTONIX) 00:00: prostate MOUTH [place] 40 mg EC 00 DAILY MD tablet [facility] pantoprazol Yes Adenocarcin TAKE ONE Univers e 9-08 geoff of TABLET BY ity of (PROTONIX) 00:00: prostate MOUTH [place] 40 mg EC 00 DAILY MD tablet [facility] pantoprazol Yes Adenocarcin TAKE ONE Univers e 9-08 geoff of TABLET BY ity of (PROTONIX) 00:00: prostate MOUTH [place] 40 mg EC 00 DAILY MD tablet [facility] pantoprazol Yes Adenocarcin TAKE ONE Univers e 9-08 geoff of TABLET BY ity of (PROTONIX) 00:00: prostate MOUTH [place] 40 mg EC 00 DAILY MD tablet [facility] pantoprazol Yes Adenocarcin TAKE ONE Univers e 9-08 geoff of TABLET BY ity of (PROTONIX) 00:00: prostate MOUTH [place] 40 mg EC 00 DAILY MD tablet Anderso n [facility] pantoprazol Yes Adenocarcin TAKE ONE Univers e 9-08 geoff of TABLET BY ity of (PROTONIX) 00:00: prostate MOUTH [place] 40 mg EC 00 DAILY MD tablet Anderso [facility] enalapril Yes Adenocarcin TAKE ONE Univers [...] capsule 00 by mouth twice Anderso daily. [facility] tamsulosin Yes Adenocarcin .4mg Take 1 Univers (FLOMAX) 8-19 geoff of capsule ity of 0.4 mg 24 00:00: prostate (0.4 mg) [place] hr capsule 00 by mouth twice Anderso daily. [facility] tamsulosin Yes Adenocarcin .4mg Take 1 Univers (FLOMAX) 8-19 geoff of capsule ity of 0.4 mg 24 00:00: prostate (0.4 mg) [place] hr capsule 00 by mouth twice Anderso daily. [facility] tamsulosin Yes Adenocarcin .4mg Take 1 Univers (FLOMAX) 8-19 geoff of capsule ity of 0.4 mg 24 00:00: prostate (0.4 mg) [place] hr capsule 00 by mouth twice Anderso daily. [facility] tamsulosin Yes Adenocarcin .4mg Take 1 Univers (FLOMAX) 8-19 geoff of capsule ity of 0.4 mg 24 00:00: prostate (0.4 mg) [place] hr capsule 00 by mouth twice Anderso daily. [facility] tamsulosin Yes Adenocarcin .4mg Take 1 Univers (FLOMAX) 8-19 geoff of capsule ity of 0.4 mg 24 00:00: prostate (0.4 mg) [place] hr capsule 00 by mouth twice Anderso daily. [facility] tamsulosin Yes Adenocarcin .4mg Take 1 Univers (FLOMAX) 8-19 geoff of capsule ity of 0.4 mg 24 00:00: prostate (0.4 mg) [place] hr capsule 00 by mouth twice Anderso daily. [facility] tamsulosin Yes Adenocarcin .4mg Take 1 Univers (FLOMAX) 8-19 geoff of capsule ity of 0.4 mg 24 00:00: prostate (0.4 mg) [place] hr capsule 00 by mouth twice Anderso daily. [facility] tamsulosin Yes Adenocarcin .4mg Take 1 Univers (FLOMAX) 8-19 geoff of capsule ity of 0.4 mg 24 00:00: prostate (0.4 mg) [place] hr capsule 00 by mouth twice Anderso daily. [facility] tamsulosin Yes Adenocarcin .4mg Take 1 Univers (FLOMAX) 8-19 geoff of capsule ity of 0.4 mg 24 00:00: prostate (0.4 mg) [place] hr capsule 00 by mouth twice Anderso daily. [facility] tamsulosin Yes Adenocarcin .4mg Take 1 Univers (FLOMAX) 8-19 geoff of capsule ity of 0.4 mg 24 00:00: prostate (0.4 mg) [place] hr capsule 00 by mouth twice Anderso daily. [facility] tamsulosin Yes Adenocarcin .8mg Take 2 Univers (FLOMAX) 7-25 geoff of capsules ity o f 0.4 mg 24 00:00: prostate (0.8 mg) [place] hr capsule 00 by mouth at Anders bedtime. [facility] tamsulosin Yes Adenocarcin .8mg Take 2 Univers (FLOMAX) 7-25 geoff of capsules ity o f 0.4 mg 24 00:00: prostate (0.8 mg) [place] hr capsule 00 by mouth at Anders bedtime. [facility] tamsulosin Yes Adenocarcin .8mg Take 2 Univers (FLOMAX) 7-25 geoff of capsules ity o f 0.4 mg 24 00:00: prostate (0.8 mg) [place] hr capsule 00 by mouth at Anders bedtime. [facility] tamsulosin Yes Adenocarcin .8mg Take 2 Univers (FLOMAX) 7-25 geoff of capsules ity o f 0.4 mg 24 00:00: prostate (0.8 mg) [place] hr capsule 00 by mouth at Anders bedtime. [facility] tamsulosin Yes Adenocarcin .8mg Take 2 Univers (FLOMAX) 7-25 geoff of capsules ity o f 0.4 mg 24 00:00: prostate (0.8 mg) [place] hr capsule 00 by mouth at Anders bedtime. [facility] tamsulosin Yes Adenocarcin .8mg Take 2 Univers (FLOMAX) 7-25 geoff of capsules ity o f 0.4 mg 24 00:00: prostate (0.8 mg) [place] hr capsule 00 by mouth at [facility]. [facility] tamsulosin Yes Adenocarcin .8mg Take 2 Univers (FLOMAX) 7-25 geoff of capsules ity o f 0.4 mg 24 00:00: prostate (0.8 mg) [place] hr capsule 00 by mouth at [facility]. [facility] tamsulosin Yes Adenocarcin .8mg Take 2 Univers (FLOMAX) 7-25 geoff of capsules ity o f 0.4 mg 24 00:00: prostate (0.8 mg) [place] hr capsule 00 by mouth at [facility]. [facility] tamsulosin Yes Adenocarcin .8mg Take 2 Univers (FLOMAX) 7-25 geoff of capsules ity o f 0.4 mg 24 00:00: prostate (0.8 mg) [place] hr capsule 00 by mouth at [facility]. [facility] tamsulosin Yes Adenocarcin .8mg Take 2 Univers (FLOMAX) 7-25 geoff of capsules ity o f 0.4 mg 24 00:00: prostate (0.8 mg) [place] hr capsule 00 by mouth at [facility]. [facility] tamsulosin Yes Adenocarcin .8mg Take 2 Univers (FLOMAX) 7-25 geoff of capsules ity o f 0.4 mg 24 00:00: prostate (0.8 mg) [place] hr capsule 00 by mouth at [facility]. [facility] tamsulosin Yes Adenocarcin .8mg Take 2 Univers (FLOMAX) 7-25 geoff of capsules ity o f 0.4 mg 24 00:00: prostate (0.8 mg) [place] hr capsule 00 by mouth at [facility]. [facility] tamsulosin Yes Adenocarcin .8mg Take 2 Univers (FLOMAX) 7-25 geoff of capsules ity o f 0.4 mg 24 00:00: prostate (0.8 mg) [place] hr capsule 00 by mouth at [facility]. [facility] atorvastati Yes Adenocarcin TAKE ONE Univers n (LIPITOR) 7-14 geoff of TABLET BY i ty of 80 mg 00:00: prostate MOUTH [place] tablet 00 EVERY MD NIGHT AT [facility] [place] Yes Adenocarcin TAKE ONE Univers n (LIPITOR) 7-14 geoff of TABLET BY i ty of 80 mg 00:00: prostate MOUTH [place] tablet 00 EVERY MD NIGHT AT [facility] [place] Yes Adenocarcin TAKE ONE Univers n (LIPITOR) 7-14 geoff of TABLET BY i ty of 80 mg 00:00: prostate MOUTH [place] tablet 00 EVERY MD NIGHT AT [facility] [place] Yes Adenocarcin TAKE ONE Univers n (LIPITOR) 7-14 geoff of TABLET BY i ty of 80 mg 00:00: prostate MOUTH [place] tablet 00 EVERY MD NIGHT AT [facility] [place] Yes Adenocarcin TAKE ONE Univers n (LIPITOR) 7-14 geoff of TABLET BY i ty of 80 mg 00:00: prostate MOUTH [place] tablet 00 EVERY MD NIGHT AT [facility] [place] Yes Adenocarcin TAKE ONE Univers n (LIPITOR) 7-14 geoff of TABLET BY i ty of 80 mg 00:00: prostate MOUTH [place] tablet 00 EVERY MD NIGHT AT [facility] [place] Yes Adenocarcin TAKE ONE Univers n (LIPITOR) 7-14 geoff of TABLET BY i ty of 80 mg 00:00: prostate MOUTH [place] tablet 00 EVERY MD NIGHT AT [facility] [place] Yes Adenocarcin TAKE ONE Univers n (LIPITOR) 7-14 geoff of TABLET BY i ty of 80 mg 00:00: prostate MOUTH [place] tablet 00 EVERY MD NIGHT AT [facility] [place] Yes Adenocarcin TAKE ONE Univers n (LIPITOR) 7-14 geoff of TABLET BY i ty of 80 mg 00:00: prostate MOUTH [place] tablet 00 EVERY MD NIGHT AT [facility] [place] Yes Adenocarcin TAKE ONE Univers n (LIPITOR) 7-14 geoff of TABLET BY i ty of 80 mg 00:00: prostate MOUTH [place] tablet 00 EVERY MD NIGHT AT [facility] [place] Yes Adenocarcin TAKE ONE Univers n (LIPITOR) 7-14 geoff of TABLET BY i ty of 80 mg 00:00: prostate MOUTH [place] tablet 00 EVERY MD NIGHT AT [facility] [place] atorvastati Yes Adenocarcin TAKE ONE Univers n (LIPITOR) 7-14 geoff of TABLET BY i ty of 80 mg 00:00: prostate MOUTH [place] tablet 00 EVERY MD NIGHT AT [facility] [place] atorvastati Yes Adenocarcin TAKE ONE Univers n (LIPITOR) 7-14 geoff of TABLET BY i ty of 80 mg 00:00: prostate MOUTH [place] tablet 00 EVERY MD NIGHT AT [facility] [place] aspirin 81 2021-0 Yes 81mg Chew 1 Unive rs mg chewable 3-16 tablet (81 it y of tablet 00:00: mg) daily. [facility] aspirin 81 2021-0 Yes 81mg Chew 1 Unive rs mg chewable 3-16 tablet (81 it y of tablet 00:00: mg) daily. [facility] aspirin 81 2021-0 Yes 81mg Chew 1 Unive rs mg chewable 3-16 tablet (81 it y of tablet 00:00: mg) daily. [facility] aspirin 81 2021-0 Yes 81mg Chew 1 Unive rs mg chewable 3-16 tablet (81 it y of tablet 00:00: mg) daily. [facility] aspirin 81 2021-0 Yes 81mg Chew 1 Unive rs mg chewable 3-16 tablet (81 it y of tablet 00:00: mg) daily. [facility] aspirin 81 2021-0 Yes 81mg Chew 1 Unive rs mg chewable 3-16 tablet (81 it y of tablet 00:00: mg) daily. [facility] aspirin 81 2021-0 Yes 81mg Chew 1 Unive rs mg chewable 3-16 tablet (81 it y of tablet 00:00: mg) daily. [facility] aspirin 81 2021-0 Yes 81mg Chew 1 Unive rs mg chewable 3-16 tablet (81 it y of tablet 00:00: mg) daily. [facility] aspirin 81 2021-0 Yes 81mg Chew 1 Unive rs mg chewable 3-16 tablet (81 it y of tablet 00:00: mg) daily. MD Adeola santacruz [facility] aspirin 81 2021-0 Yes 81mg Chew 1 Unive rs mg chewable 3-16 tablet (81 it y of tablet 00:00: mg) daily. MD Adeola santacruz [facility] aspirin 81 2021-0 Yes 81mg Chew 1 Unive rs mg chewable 3-16 tablet (81 it y of tablet 00:00: mg) daily. MD Adeola santacruz [facility] aspirin 81 2021-0 Yes 81mg Chew 1 Unive rs mg chewable 3-16 tablet (81 it y of tablet 00:00: mg) daily. MD Adeola santacruz [facility] aspirin 81 2021-0 Yes 81mg Chew 1 Unive rs mg chewable 3-16 tablet (81 it y of tablet 00:00: mg) daily. MD Adeola santacruz [facility] ibuprofen 2021-2021- No 200mg Take 200 Un pierre (AdviL) 200 3-15 03-15 mg by ity of mg tablet 17:49: 00:00 mouth [place] 57 :00 every 6 MD (six) Anderso hours as n needed for Cancer mild pain. Center As needed for back pain ibuprofen 2021-2021- No 200mg Take 200 Un pierre (AdviL) [...] as n needed for Cancer mild pain. [place] acetaminoph 2-0 Yes 500mg Take 500 U [...] as n needed for Cancer mild pain. [place] acetaminoph 2022-0 Yes 500mg Take 500 U nivers en 3-15 mg by ity of (TYLENOL) 17:49: mouth [place] 500 mg 48 every 6 MD tablet (six) Anderso hours as n needed for Cancer mild pain. [place] acetaminoph 2022-0 Yes 500mg Take 500 U [...] as n needed for Cancer mild pain. [place] acetaminoph 2021-0 Yes 500mg Take 500 U nivers en 3-15 mg by ity of (TYLENOL) 17:49: mouth [place] 500 mg 48 every 6 MD tablet (six) Anderso hours as n needed for Cancer mild pain. [place] acetaminoph 2021-0 Yes 500mg Take 500 U nivers en 3-15 mg by ity of (TYLENOL) 17:49: mouth [place] 500 mg 48 every 6 MD tablet (six) Anderso hours as n needed for Cancer mild pain. [place] acetaminoph 2021-0 Yes 500mg Take 500 U nivers en 3-15 mg by ity of (TYLENOL) 17:49: mouth [place] 500 mg 48 every 6 MD tablet (six) Anderso hours as n needed for Cancer mild pain. [place] acetaminoph 2021-0 Yes 500mg Take 500 U nivers en 3-15 mg by ity of (TYLENOL) 17:49: mouth [place] 500 mg 48 every 6 MD tablet (six) Anderso hours as n needed for Cancer mild pain. [place] acetaminoph 2021-0 Yes 500mg Take 500 U nivers en 3-15 mg by ity of (TYLENOL) 17:49: mouth [place] 500 mg 48 every 6 MD tablet (six) Anderso hours as n needed for Cancer mild pain. [place] acetaminoph 2021-0 Yes 500mg Take 500 U nivers en 3-15 mg by ity of (TYLENOL) 17:49: mouth [place] 500 mg 48 every 6 MD tablet (six) Anderso hours as n needed for Cancer mild pain. [place] acetaminoph 2021-0 Yes 500mg Take 500 U nivers en 3-15 mg by ity of (TYLENOL) 17:49: mouth [place] 500 mg 48 every 6 MD tablet (six) Anderso hours as n needed for Cancer mild pain. [place] leuprolide, 2- No 30mg Inject 30 Univers 4 month, [...] injection months. n Last dose Cancer 05/16/2020 [place] leuprolide, 2021-2021- No 30mg Inject 30 Univers 4 month, 3-15 03-15 mg under ity of (Eligard, 4 16:06: 00:00 the skin [place] month,) 30 46 :00 every 4 MD mg (four) Anderso injection months. n Last dose Cancer 05/16/2020 [place] leuprolide, 2021-0 2021- No 30mg Inject 30 Univers 4 month, 3-15 03-15 mg under ity of (Eligard, 4 16:06: 00:00 the skin [place] month,) 30 46 :00 every 4 MD mg (four) Anderso injection months. n Last dose Cancer 05/16/2020 [place] leuprolide, 2021-0 2021- No 30mg Inject 30 [...] Cancer 05/16/2020 Center cholecalcif 2022-0 2022- No 2000U Take 2,000 [...] ity of vitamin D3, 15:58: 00:00 mouth [place] (VITAMIN 48 :00 twice MD D3) 2,000 daily. Anderso units tab Patient n tablet instructed Cancer to take Center twice a day apixaban 2022-0 Yes 5mg Take 1 Univers (Eliquis) 5 3-15 tablet (5 ity of mg tablet 00:00: mg) by [place] 00 mouth MD every 12 Anderso (twelve) n hours. Cancer [place] pantoprazol 2-0 Yes 40mg Take 1 Univ ers e 3-15 tablet (40 ity of (Protonix) 00:00: mg) by [place] 40 mg EC 00 mouth MD tablet daily. Anderso n Cancer [place] apixaban 2-0 Yes 5mg Take 1 Univers (Eliquis) 5 3-15 tablet (5 ity of mg tablet 00:00: mg) by [place] 00 mouth MD every 12 Anderso (twelve) n hours. Cancer [place] pantoprazol 2-0 Yes 40mg Take 1 Univ ers e 3-15 tablet (40 ity of (Protonix) 00:00: mg) by [place] 40 mg EC 00 mouth MD tablet daily. Anderso n [facility] apixaban 2-0 Yes 5mg Take 1 Univers (Eliquis) 5 3-15 tablet (5 ity of mg tablet 00:00: mg) by [place] 00 mouth MD every 12 Anderso (twelve) n hours. [facility] apixaban 2-0 Yes 5mg Take 1 Univers (Eliquis) 5 3-15 tablet (5 ity of mg tablet 00:00: mg) by [place] 00 mouth every 12 Anderso (twelve) n hours. [facility] [place] apixaban 2022-0 Yes 5mg Take 1 [facility] (Eliquis) 5 3-15 tablet (5 ity of mg tablet 00:00: mg) by [place] 00 mouth every 12 [place] (twelve) n hours. [facility] [place] apixaban 2022-0 Yes 5mg Take 1 [facility] (Eliquis) 5 3-15 tablet (5 ity of mg tablet 00:00: mg) by [place] 00 mouth every 12 [place] (twelve) n hours. [facility] [place] apixaban 2022-0 Yes 5mg Take 1 [facility] (Eliquis) 5 3-15 tablet (5 ity of mg tablet 00:00: mg) by [place] 00 mouth every 12 [place] (twelve) n hours. [facility] apixaban 2022-0 Yes 5mg Take 1 [facility] (Eliquis) 5 3-15 tablet (5 ity of mg tablet 00:00: mg) by [place] 00 mouth every 12 [place] (twelve) n hours. [facility] apixaban 2022-0 Yes 5mg Take 1 [facility] (Eliquis) 5 3-15 tablet (5 ity of mg tablet 00:00: mg) by [place] 00 mouth every 12 [place] (twelve) n hours. [facility] apixaban 2022-0 Yes 5mg Take 1 [facility] (Eliquis) 5 3-15 tablet (5 ity of mg tablet 00:00: mg) by [place] 00 mouth every 12 [place] (twelve) n hours. [facility] apixaban 2022-0 Yes 5mg Take 1 [facility] (Eliquis) 5 3-15 tablet (5 ity of mg tablet 00:00: mg) by [place] [id number] barbara ANDINO every 12 [place] (twelve) n hours. [facility] apixaban 2022-0 Yes 5mg Take 1 [facility] (Eliquis) 5 3-15 tablet (5 ity of mg tablet 00:00: mg) by [place] 00 barbara ANDINO every 12 [place] (twelve) n hours. [facility] apixaban 2022-0 Yes 5mg Take 1 [facility] (Eliquis) 5 3-15 tablet (5 ity of mg tablet 00:00: mg) by [place] 00 barbara ANDINO every 12 [place] (twelve) n hours[address] [facility] pantoprazol 2022-0 2022- No 40mg Take 1 Uni vers e 3-15 11-19 tablet (40 ity of (Protonix) 00:00: 00:00 mg) by [place] 40 mg EC 00 :00 mouth tablet daily. [facility] pantoprazol 2022-0 2022- No 40mg Take 1 [facility] vers e 3-15 -08 tablet (40 ity of (Protonix) 00:00: 00:[place] mg[place] 00 :00 mouth MD tablet daily. [facility] pantoprazol 2022-0 2022- No 40mg Take 1 Uni vers e 3-15 11-19 tablet (40 ity of (Protonix) 00:00: 00:00 mg[place] 00 :00 mouth MD tablet daily. [facility] pantoprazol 2021- No 40mg Take 1 [facility] vers e 05-26 tablet (40 ity of (Protonix) 00:00: 00:00 mg[place] 00 :00 mouth MD tablet daily. [facility] pantoprazol 2021- No 40mg Take 1 [facility] vers e 05-26 tablet (40 ity of (Protonix) 00:00: 00:00 mg[place] mg EC 00 :00 mouth MD tablet daily. [facility] pantoprazol 2021- No 40mg Take 1 [facility] vers e 05-26 tablet (40 ity of (Protonix) 00:00: 00:00 mg[place] mg EC 00 :00 mouth MD tablet daily. [facility] pantoprazol 2021- No 40mg Take 1 [facility] vers e 05-26 tablet (40 ity of (Protonix) 00:00: 00:00 mg[place] mg EC 00 :00 mouth MD tablet daily. [facility] pantoprazol 2021- No 40mg Take 1 [facility] vers e 05-26 tablet (40 ity of (Protonix) 00:00: 00:00 mg[place] mg EC 00 :00 mouth MD tablet daily. [facility] pantoprazol 2021- No 40mg Take 1 [facility] vers e 05-26 tablet (40 ity of (Protonix) 00:00: 00:00 mg[place] mg EC 00 :00 mouth MD tablet daily. [facility] pantoprazol 2021-2021- No 40mg Take 1 [facility] vers e 05-26 tablet (40 ity of (Protonix) 00:00: 00:00 mg[place] mg EC 00 :00 mouth MD tablet daily. [facility] pantoprazol 2021- No 40mg Take 1 [facility] vers e 3-26 11- tablet (40 ity of (Protonix) 00:00: 00:00 mg) by [place] 40 mg EC 00 :00 mouth MD tablet daily. [facility] enalapril 2021- No 20mg Take 1 Unive [...] of 20 mg 00:00: 00:00 mg) by [place] tablet 00 :00 mouth daily. [facility] Skip dose n if [facility] blood pressure (top number) is less than 110. atorvastati 2021- No Adenocarcin 80mg Take 1 Univers n (LIPITOR) 05-26 [place]off of tablet (80 ity of 80 mg 00:00: 00:00 prostate mg) by [place] tablet 00 :00 [place] bed[place]. [facility] atorvasti 2021- No Adenocarcin 80mg Take 1 [facility] n (LIPITOR) 05-26 geoff of tablet (80 ity of 80 mg 00:00: 00:00 prostate mg) by [place] tablet 00 :00 [place] bed[place] [facility] atorvastati 2021- No Adenocarcin 80mg Take 1 [facility] n (LIPITOR) 05-26 [place]off of tablet (80 ity of 80 mg 00:00: 00:00 prostate mg) by [place] tablet 00 :00 [place] bed[place] [facility] atorvastati 2021- No Adenocarcin 80mg Take 1 [facility] n (LIPITOR) 05-26 [place]off of tablet (80 ity of 80 mg 00:00: 00:00 prostate mg) by [place] tablet 00 :00 [place] [facility] atorvastati 2021- No Adenocarcin 80mg Take 1 [facility] n (LIPITOR) 05-26 geoff of tablet (80 ity of 80 mg 00:00: 00:00 prostate mg) by [place] tablet 00 :00 [place] [facility] atorvastati 2021- No Adenocarcin 80mg Take 1 [facility] n (LIPITOR) 05-26 geoff of tablet (80 ity of 80 mg 00:00: 00:00 prostate mg) by [place] tablet 00 :00 [place] [facility] atorvastati 2021- No Adenocarcin 80mg Take 1 [facility] n (LIPITOR) 05-26 geoff of tablet (80 ity of 80 mg 00:00: 00:00 prostate mg) by [place] tablet 00 :00 [place] bed[place] [facility] atorvasti 2021- No Adenocarcin 80mg Take 1 [facility] n (LIPITOR) 05-26 geoff of tablet (80 ity of 80 mg 00:00: 00:00 prostate mg) by [place] tablet 00 :00 [place] bed[place] [facility] atorvasti 2021- No Adenocarcin 80mg Take 1 [facility] n (LIPITOR) 05-26 geoff of tablet (80 ity of 80 mg 00:00: 00:00 prostate mg) by [place] tablet 00 :00 [place] bed[place] [facility] enalapril 2021- No Essential TAKE ONE [facility] (VASOTEC) 05-18 (primary) TABLET BY ity of 10 mg 00:00: 00:00 hypertensio MOUTH [place] tablet 00 :00 n DAILY ( MD HOLD DOSE [place] IF SBP<110 n ) [facility] enalapril 2021- No Essential TAKE ONE [facility] (VASOTEC) 05-18 (primary) TABLET BY ity of 10 mg 00:00: 00:00 hypertensio MOUTH [place] tablet 00 :00 n DAILY ( MD HOLD DOSE [place] IF SBP<110 n ) [facility] enalapril 2021- No Essential TAKE ONE [facility] (VASOTEC) 05-18 (primary) TABLET BY ity of 10 mg 00:00: 00:00 hypertensio MOUTH [place] tablet 00 :00 n DAILY ( MD HOLD DOSE [place] IF SBP<110 n ) [facility] enalapril 2021- No Essential TAKE ONE [facility] (VASOTEC) 05-18 (primary) TABLET BY ity of 10 mg 00:00: 00:00 hypertensio MOUTH [place] tablet 00 :00 n DAILY ( MD HOLD DOSE [place] IF SBP<110 n ) [facility] enalapril 2021- No Essential TAKE ONE [facility] (VASOTEC) 3-07 03-15 (primary) TABLET BY ity of 10 mg 00:00: 00:00 hypertensio MOUTH [place] tablet 00 :00 n DAILY ( MD HOLD DOSE [place] IF SBP<110 n ) [facility] enalapril 2021- No Essential TAKE ONE [facility] (VASOTEC) 05-1815 (primary) TABLET BY ity of 10 mg 00:00: 00:00 hypertensio MOUTH [place] tablet 00 :00 n DAILY ( MD HOLD DOSE [place] IF SBP<110 n ) [facility] enalapril 2021- No Essential TAKE ONE [facility] (VASOTEC) 05-18 (primary) TABLET BY ity of 10 mg 00:00: 00:00 hypertensio MOUTH [place] tablet 00 :00 n DAILY ( MD HOLD DOSE [place] IF SBP<110 n ) [facility] apixaban 2021- No Paroxysmal 5mg Take 1 [facility] (Eliquis) 5 10-28-15 atrial tablet (5 ity of mg tablet 00:00: 00:00 fibrillatio mg) by [place] 00 :00 n mouth MD every 12 [place] (twelve) n hours. [facility] apixaban 2021- No Paroxysmal 5mg Take 1 [facility] (Eliquis) 5 10-28-15 atrial tablet (5 ity of mg tablet 00:00: 00:00 fibrillatio mg) by [place] 00 :00 n mouth MD every 12 [place] (twelve) n hours. [facility] apixaban 2021- No Paroxysmal 5mg Take 1 [facility] (Eliquis) 5 10-28-15 atrial tablet (5 ity of mg tablet 00:00: 00:00 fibrillatio mg) by [place] 00 :00 n mouth MD every 12 [place] (twelve) n hours. [facility] apixaban 2021- No Paroxysmal 5mg Take 1 [facility] (Eliquis) 5 10-28-15 atrial tablet (5 ity of mg tablet 00:00: 00:00 fibrillatio mg) by [place] 00 :00 n mouth MD every 12 [place] (twelve) n hours. [facility] apixaban 2021- No Paroxysmal 5mg Take 1 [facility] (Eliquis) 5 8-17 03-15 atrial tablet (5 ity of mg tablet 00:00: 00:00 fibrillatio mg) by [place] 00 :00 n mouth MD every 12 [place] (twelve) n hours. [facility] apixaban 2021- No Paroxysmal 5mg Take 1 [facility] (Eliquis) 5 8-17 03-15 atrial tablet (5 ity of mg tablet 00:00: 00:00 fibrillatio mg) by [place] 00 :00 n mouth MD every 12 [place] (twelve) n hours. [facility] apixaban 2021- No Paroxysmal 5mg Take 1 [facility] (Eliquis) 5 8-17 03-15 atrial tablet (5 ity of mg tablet 00:00: 00:00 fibrillatio mg) by [place] 00 :00 n mouth MD every 12 [place] (twelve) n hours. [facility] metoprolol Yes 25mg Take 1 [...] 25mg Take 1 Univ ers succinate 8-16 -21 tablet (25 ity of (TOPROL XL) 00:00: [...] No Insomnia 7.5mg Take 1 [facility] (REMERON) 7- 03-15 due to tablet ity o f [...] 00 :[facility] diphenoxyla 2021- No Diarrhea 1{tbl} [...] tablet 00 :00 condition by mouth at [facility]. [facility] diphenoxyla 2021- No Diarrhea 1{tbl} [...] 00 :00 [facility] diphenoxyla 2021- No Diarrhea 1{tbl} [...] 00 :00 condition by mouth MD at [facility]. [facility] diphenoxyla 2021- No Diarrhea 1{tbl} [...] tablet 00 :00 condition by mouth at [facility]. [facility] diphenoxyla 2021- No Diarrhea 1{tbl} [...] tablet 00 :00 [facility] tamsulosin 2021- No Adenocarcin .8mg Take 2 [facility] (FLOMAX) 09-25 07-25 geoff of capsules ity of 0.4 mg 24 00:00: 00:00 prostate (0.8 mg) [place] hr capsule 00 :[facility] tamsulosin 2021- No Adenocarcin .8mg Take 2 [facility] (FLOMAX) 09-25-25 geoff of capsules ity of 0.4 mg 24 00:00: 00:00 prostate (0.8 mg) [place] hr capsule 00 :00 by mouth at [facility]. [facility] tamsulosin 2021- No Adenocarcin .8mg Take 2 [facility] (FLOMAX) 09-25-25 geoff of capsules ity of 0.4 mg 24 00:00: 00:00 prostate (0.8 mg) [place] hr capsule 00 :00 by mouth at [facility]. [facility] tamsulosin 2021- No Adenocarcin .8mg Take 2 [facility] (FLOMAX) 09-25-25 geoff of capsules ity of 0.4 mg 24 00:00: 00:00 prostate (0.8 mg) [place] hr capsule 00 :00 by mouth at [facility]. [facility] tamsulosin 2021- No Adenocarcin .8mg Take 2 [facility] (FLOMAX) 09-25-25 geoff of capsules ity of 0.4 mg 24 00:00: 00:00 prostate (0.8 mg) [place] hr capsule 00 :00 by mouth at [facility]. [facility] tamsulosin 2021- No Adenocarcin .8mg Take 2 [facility] (FLOMAX) 09-25-25 geoff of capsules ity of 0.4 mg 24 00:00: 00:00 prostate (0.8 mg) [place] hr capsule 00 :00 by mouth at [facility]. [facility] tamsulosin 2021- No Adenocarcin .8mg Take 2 [facility] (FLOMAX) 09-25-25 geoff of capsules ity of 0.4 mg 24 00:00: 00:00 prostate (0.8 mg) [place] hr capsule 00 :00 by mouth at [facility]. [facility] tamsulosin 2021- No Adenocarcin .8mg Take 2 [facility] (FLOMAX) 09-25-25 geoff of capsules ity of 0.4 mg 24 00:00: 00:00 prostate (0.8 mg) [place] hr capsule 00 :00 by mouth at [facility]. [facility] tamsulosin 2021- No Adenocarcin .8mg Take 2 [facility] (FLOMAX) 09-25-25 geoff of capsules ity of 0.4 mg 24 00:00: 00:00 prostate (0.8 mg) [place] hr capsule 00 :00 by mouth MD at [facility]. [facility] tamsulosin 2021- No Adenocarcin .8mg Take 2 [facility] (FLOMAX) 09-25-25 geoff of capsules ity of 0.4 mg 24 00:00: 00:00 prostate (0.8 mg) [place] hr capsule 00 :00 by mouth MD at [facility]. [facility] tamsulosin 2021- No Adenocarcin .8mg Take 2 [facility] (FLOMAX) 09-25-25 geoff of capsules ity of 0.4 mg 24 00:00: 00:00 prostate (0.8 mg) [place] hr capsule 00 :00 by mouth MD at [facility]. [facility] enalapril 2021- No 10mg Take [...] [place] tablet 00 :00 [facility]- No Adenocarcin 50mg Take 1 [facility] e (CASODEX) 07-30-15 geoff of tablet (50 ity of 50 mg 00:00: 00:00 prostate mg) by [place] tablet 00 :00 [facility] bicalutamid 2021- No Adenocarcin 50mg Take 1 [facility] e (CASODEX) 5-15 geoff of tablet (50 ity of 50 mg 00:00: 00:00 prostate mg) by [place] tablet 00 :00 [facility] bicalutamid 2021- No Adenocarcin 50mg Take 1 [facility] e (CASODEX) 07-30-15 geoff of tablet (50 ity of 50 mg 00:00: 00:00 prostate mg) by [place] tablet 00 :00 mouth MD daily. [facility] bicalutamid 2021- No Adenocarcin 50mg Take 1 [facility] e (CASODEX) 5-19 03-15 geoff of tablet (50 ity of 50 mg 00:00: 00:00 prostate mg) by [place] tablet 00 :00 mouth MD daily. [facility] bicalutamid 2021- No Adenocarcin 50mg Take 1 [facility] e (CASODEX) 5 03-15 geoff of tablet (50 ity of 50 mg 00:00: 00:00 prostate mg) by [place] tablet 00 :00 mouth MD daily. [facility] bicalutamid 2021- No Adenocarcin 50mg Take 1 [facility] e (CASODEX) 5 03-15 geoff of tablet (50 ity of 50 mg 00:00: 00:00 prostate mg) by [place] tablet 00 :00 mouth MD daily. [facility] pantoprazol 2021- No Adenocarcin 40mg Take 1 [facility] e 3-05 03-15 geoff of tablet (40 ity of (Protonix) 00:00: 00:00 prostate mg) by [place] 40 mg EC 00 :00 mouth MD tablet daily with [place] breakfast. [facility] pantoprazol 2021- No Adenocarcin 40mg Take 1 [facility] e 3-05 03-15 geoff of tablet (40 ity of (Protonix) 00:00: 00:00 prostate mg) by [place] 40 mg EC 00 :00 mouth MD tablet daily with [place] breakfast. [facility] pantoprazol 2021- No Adenocarcin 40mg Take 1 [facility] e 3-05 03-15 geoff of tablet (40 ity of (Protonix) 00:00: 00:00 prostate mg) by [place] 40 mg EC 00 :00 mouth MD tablet daily with [place] breakfast. [facility] pantoprazol 2021- No Adenocarcin 40mg Take 1 [facility] e 3-05 03-15 geoff of tablet (40 ity of (Protonix) 00:00: 00:00 prostate mg) by [place] 40 mg EC 00 :00 mouth MD tablet daily with [place] breakfast. [facility] pantoprazol 2021- No Adenocarcin 40mg Take 1 [facility] e 3-05 03-15 geoff of tablet (40 ity of (Protonix) 00:00: 00:00 prostate mg) by [place] 40 mg EC 00 :00 mouth MD tablet daily with [place] breakfast. [facility] pantoprazol 2021- No Adenocarcin 40mg Take 1 [facility] e 3-05 03-15 [place]off of tablet (40 ity of (Protonix) 00:00: 00:00 prostate mg) by [place] 40 mg EC 00 :00 mouth MD tablet daily with [place] breakfast. [facility] pantoprazol 2021- No Adenocarcin 40mg Take 1 [facility] e 3-05 03-15 geoff of tablet (40 ity of (Protonix) 00:00: 00:00 prostate mg) by [place] 40 mg EC 00 :00 mouth MD tablet daily with [place] breakfast. [facility] Dose 2020-0 No Unknown 1-09 00:00: 00 Dose 2020-0 No Unknown 1-09 00:00: 00 Dose 2020-0 No Unknown 1-09 00:00: 00 Dose 2020-0 No Unknown 1-09 00:00: 00 amlodipine 2020-1 No 1mg 5 mg tablet 2- 00:00: 00 enalapril 2020-1 No 1mg maleate 10 2-03 mg tablet 00:00: 00 amlodipine 2020-1 No 1mg 5 mg tablet 2- 00:00: 00 enalapril 2020-1 No 1mg maleate 10 2-03 mg tablet 00:00: 00 amlodipine 2020-0 No 1mg 5 mg tablet 9 00:00: 00 enalapril 2020-0 No 1mg maleate 10 9-08 mg tablet 00:00: 00 amlodipine 2020-0 No 1mg 5 mg tablet 11-19 00:00: 00 enalapril 2020-0 No 1mg maleate 10 9-08 mg tablet 00:00: 00 tamsulosin 2019-0 Yes [id number] .4mg Take 1 [facility] 0.4 mg 24 7-13 capsule by ity of hr capsule 00:00: mouth [place] 00 daily. [facility] tamsulosin 2019-0 Yes [id number] .4mg Take 1 [facility] 0.4 mg 24 7-13 capsule by ity of hr capsule 00:00: mouth [place] 00 daily. [facility] tamsulosin 2020-0 Yes [id number] .4mg Take 1 [facility] 0.4 mg 24 7-13 capsule by ity of hr capsule 00:00: mouth [place] 00 daily. [facility] tamsulosin 2020-0 Yes [id number] .4mg Take 1 [facility] 0.4 mg 24 7-13 capsule by ity of hr capsule 00:00: mouth [place] 00 daily. [facility] tamsulosin 2020-0 Yes [id number] .4mg Take 1 [facility] 0.4 mg 24 7-13 capsule by ity of hr capsule 00:00: mouth [place] 00 daily. [facility] tamsulosin 2020-0 Yes [id number] .4mg Take 1 [facility] 0.4 mg 24 7-13 capsule by ity of hr capsule 00:00: mouth [place] 00 daily. [facility] tamsulosin 2020-0 Yes [id number] .4mg Take 1 [facility] 0.4 mg 24 7-13 capsule by ity of hr capsule 00:00: mouth [place] 00 daily. [facility] tamsulosin 2020-0 Yes [id number] .4mg Take 1 [facility] 0.4 mg 24 7-13 capsule by ity of hr capsule 00:00: mouth [place] 00 daily. [facility] tamsulosin 2020-0 Yes [id number] .4mg Take 1 [facility] 0.4 mg 24 7-13 capsule by ity of hr capsule 00:00: mouth [place] 00 daily. [facility] tamsulosin 2020-0 Yes [id number] .4mg Take 1 [facility] 0.4 mg 24 7-13 capsule by ity of hr capsule 00:00: mouth [place] 00 daily. [facility] tamsulosin 2020-0 Yes [id number] .4mg Take 1 [facility] 0.4 mg 24 7-13 capsule by ity of hr capsule 00:00: mouth [place] 00 daily. [facility] tamsulosin 2020-0 Yes [id number] .4mg Take 1 [facility] 0.4 mg 24 7-13 capsule by ity of hr capsule 00:00: mouth [place] 00 daily. [facility] tamsulosin 2020-0 Yes [id number] .4mg Take 1 [facility] 0.4 mg 24 7-13 capsule by ity of hr capsule 00:00: mouth [place] 00 daily. [facility] tamsulosin 2020-0 Yes [id number] .4mg Take 1 [facility] 0.4 mg 24 7-13 capsule by ity of hr capsule 00:00: mouth [place] 00 daily. [facility] tamsulosin 2020-0 Yes [id number] .4mg Take 1 [facility] 0.4 mg 24 7-13 capsule by ity of hr capsule 00:00: mouth [place] 00 daily. [facility] tamsulosin 2020-0 Yes [id number] .4mg Take 1 [facility] 0.4 mg 24 7-13 capsule by ity of hr capsule 00:00: mouth [place] 00 daily. [facility] tamsulosin 2020-0 Yes [id number] .4mg Take 1 [facility] 0.4 mg 24 7-13 capsule by ity of hr capsule 00:00: mouth [place] 00 daily. [facility] tamsulosin 2020-0 Yes [id number] .4mg Take 1 [facility] 0.4 mg 24 7-13 capsule by ity of hr capsule 00:00: mouth [place] 00 daily. [facility] tamsulosin 2020-0 Yes [id number] .4mg Take 1 [facility] 0.4 mg 24 7-13 capsule by ity of hr capsule 00:00: mouth [place] 00 daily. [facility] tamsulosin 2020-0 Yes [id number] .4mg Take 1 [facility] 0.4 mg 24 7-13 capsule by ity of hr capsule 00:00: mouth [place] 00 daily. [facility] tamsulosin 2020-0 Yes [id number] .4mg Take 1 [facility] 0.4 mg 24 7-13 capsule by ity of hr capsule 00:00: mouth [place] 00 daily. [facility] tamsulosin 2020-0 Yes [id number] .4mg Take 1 [facility] 0.4 mg 24 7-10 capsule by ity of hr capsule 00:00: mouth [place] 00 daily. [facility] tamsulosin 2019-0 2020- No [id number] .4mg Take 1 [facility] 0.4 mg 24 [...] hours of surgery mineral oil 2019- No [id number] 1{enema Insert 1 [facility] (READY-TO-U 09-06 } Enema into i ty of SE ENEMA, 00:00: 04:59 rectum [place] MIN OIL,) 00 :00 once now Medica l enema for 1 Branch dose. Perform morning of procedure. mineral oil 2019- No [id number] 1{enema Insert 1 [facility] (READY-TO-U 09-06 } Enema into i ty of SE ENEMA, 00:00: 04:59 rectum [place] MIN OIL,) 00 :00 once now Medica l enema for 1 Branch dose. Perform morning of procedure. mineral oil 2020-0 2020- No [id number] 1{enema Insert 1 [facility] (READY-TO-U 09-06 } Enema into i ty of SE ENEMA, 00:00: 04:59 rectum [place] MIN OIL,) 00 :00 once now Medica l enema for 1 Branch dose. Perform morning of procedure. mineral oil 2020-0 2020- No [id number] 1{enema Insert 1 [facility] (READY-TO-U 09-06 } Enema into i ty of SE ENEMA, 00:00: 04:59 rectum [place] MIN OIL,) 00 :00 once now Medica l enema for 1 Branch dose. Perform morning of procedure. ciprofloxac 2020-0 Yes [id number] 500mg Take 1 [facility] in HCl 500 6-25 tablet by ity of mg tablet 00:00: mouth [place] 00 every 12 Medical (twelve) Branch hours. Start 1 day before procedure. ciprofloxac 2020-0 Yes [id number] 500mg Take 1 [facility] in HCl 500 6-25 tablet by ity of mg tablet 00:00: mouth [place] 00 every 12 Medical (twelve) Branch hours. Start 1 day before procedure. ciprofloxac 2020-0 Yes [id number] 500mg Take 1 [facility] in HCl 500 6-25 tablet by ity of mg tablet 00:00: mouth [place] 00 every 12 Medical (twelve) Branch hours. Start 1 day before procedure. ciprofloxac 2020-0 Yes [id number] 500mg Take 1 [facility] in HCl 500 6-25 tablet by ity of mg tablet 00:00: mouth [place] 00 every 12 Medical (twelve) Branch hours. Start 1 day before procedure. ciprofloxac 2020-0 Yes [id number] 500mg Take 1 [facility] in HCl 500 6-25 tablet by ity of mg tablet 00:00: mouth [place] 00 every 12 Medical (twelve) Branch hours. Start 1 day before procedure. ciprofloxac 2020-0 Yes [id number] 500mg Take 1 [facility] in HCl 500 6-25 tablet by ity of mg tablet 00:00: mouth [place] 00 every 12 Medical (twelve) Branch hours. Start 1 day before procedure. ciprofloxac 2020-0 Yes [id number] 500mg Take 1 [facility] in HCl 500 6-25 tablet by ity of mg tablet 00:00: mouth [place] 00 every 12 Medical (twelve) Branch hours. Start 1 day before procedure. ciprofloxac 2020-0 Yes [id number] 500mg Take 1 [facility] in HCl 500 6-25 tablet by ity of mg tablet 00:00: mouth [place] 00 every 12 Medical (twelve) Branch hours. Start 1 day before procedure. ciprofloxac 2020-0 Yes [id number] 500mg Take 1 [facility] in HCl 500 6-25 tablet by ity of mg tablet 00:00: mouth [place] 00 every 12 Medical (twelve) Branch hours. Start 1 day before procedure. ciprofloxac 2020-0 Yes [id number] 500mg Take 1 [facility] in HCl 500 6-25 tablet by ity of mg tablet 00:00: mouth [place] 00 every 12 Medical (twelve) Branch hours. Start 1 day before procedure. ciprofloxac 2020-0 Yes [id number] 500mg Take 1 [facility] in HCl 500 6-25 tablet by ity of mg tablet 00:00: mouth [place] 00 every 12 Medical (twelve) Branch hours. Start 1 day before procedure. ciprofloxac 2020-0 Yes [id number] 500mg Take 1 [facility] in HCl 500 6-25 tablet by ity of mg tablet 00:00: mouth [place] 00 every 12 Medical (twelve) Branch hours. Start 1 day before procedure. ciprofloxac 2020-0 Yes [id number] 500mg Take 1 [facility] in HCl 500 6-25 tablet by ity of mg tablet 00:00: mouth [place] 00 every 12 Medical (twelve) Branch hours. Start 1 day before procedure. ciprofloxac 2020-0 Yes [id number] 500mg Take 1 [facility] in HCl 500 6-25 tablet by ity of mg tablet 00:00: mouth [place] 00 every 12 Medical (twelve) Branch hours. Start 1 day before procedure. ciprofloxac 2020-0 Yes [id number] 500mg Take 1 [facility] in HCl 500 6-25 tablet by ity of mg tablet 00:00: mouth [place] 00 every 12 Medical (twelve) Branch hours. Start 1 day before procedure. ciprofloxac 2020-0 Yes [id number] 500mg Take 1 [facility] in HCl 500 6-25 tablet by ity of mg tablet 00:00: mouth [place] 00 every 12 Medical (twelve) Branch hours. Start 1 day before procedure. ciprofloxac 2020-0 Yes [id number] 500mg Take 1 [facility] in HCl 500 6-25 tablet by ity of mg tablet 00:00: mouth [place] 00 every 12 Medical (twelve) Branch hours. Start 1 day before procedure. ciprofloxac 2020-0 Yes [id number] 500mg Take 1 [facility] in HCl 500 6-25 tablet by ity of mg tablet 00:00: mouth [place] 00 every 12 Medical (twelve) Branch hours. Start 1 day before procedure. ciprofloxac 2020-0 Yes [id number] 500mg Take 1 [facility] in HCl 500 6-25 tablet by ity of mg tablet 00:00: mouth [place] 00 every 12 Medical (twelve) Branch hours. Start 1 day before procedure. ciprofloxac 2020-0 Yes [id number] 500mg Take 1 [facility] in HCl 500 6-25 tablet by ity of mg tablet 00:00: mouth [place] 00 every 12 Medical (twelve) Branch hours. Start 1 day before procedure. ciprofloxac 2020-0 2020- No [id number] 500mg Take 1 Univers in HCl 500 6-25 07-30 tablet by ity of mg tablet 00:00: 00:00 mouth [place] 00 :00 every 12 Medical (twelve) Branch hours. Start 1 day before procedure. ciprofloxac 2020-0 2020- No [id number] 500mg Take 1 Univers in HCl 500 6-25 07-30 tablet by ity of mg tablet 00:00: 00:00 mouth [place] 00 :00 every 12 Medical (twelve) Branch hours. Start 1 day before procedure. ciprofloxac 2020-0 2020- No [id number] 500mg Take 1 Univers in HCl 500 6-25 07-30 tablet by ity of mg tablet 00:00: 00:00 mouth [place] 00 :00 every 12 Medical (twelve) Branch hours. Start 1 day before procedure. ciprofloxac 2020-0 2020- No [id number] 500mg Take 1 Univers in HCl 500 6-25 07-30 tablet by ity of mg tablet 00:00: 00:00 mouth [place] 00 :00 every 12 Medical (twelve) Branch hours. Start 1 day before procedure. ciprofloxac 2020-0 2020- No [id number] 500mg Take 1 Univers in HCl 500 6-25 07-03 tablet by ity of mg tablet 00:00: 04:59 mouth [place] 00 :00 every 12 Medical ([facility]) Branch hours for 7 days. ciprofloxac 2020-0 2020- No [id number] 500mg Take 1 Univers in HCl 500 6-25 07-03 tablet by ity of mg tablet 00:00: 04:59 mouth [place] 00 :00 every 12 Medical ([facility]) Branch hours for 7 days. enalapril 2020-0 Yes 10mg Take 10 mg Un [place] 10 mg 6-22 by mouth ity of tablet 20:31: daily. [address] amLODIPine 2020-0 Yes 5mg Take 5 mg Un [place] 5 mg tablet 6-22 by mouth ity of 20:31: daily. [address] enalapril 2020-0 Yes 10mg Take 10 mg Un [place] 10 mg 6-22 by mouth ity of tablet 20:31: daily. [address] amLODIPine 2020-0 Yes 5mg Take 5 mg Un [place] 5 mg tablet 6-22 by mouth ity of 20:31: daily. [address] enalapril 2020-0 Yes 10mg Take 10 mg Un [place] 10 mg 6-22 by mouth ity of tablet 20:31: daily. [address] amLODIPine 2020-0 Yes 5mg Take 5 mg Un [place] 5 mg tablet 6-22 by mouth ity of 20:31: daily. [address] enalapril 2020-0 Yes 10mg Take 10 mg [place] 10 mg 6-22 by mouth ity of tablet 20:31: daily. [address] amLODIPine 2020-0 Yes 5mg Take 5 mg [place] 5 mg tablet 6-22 by mouth ity of 20:31: daily. [address] enalapril 2020-0 Yes 10mg Take 10 mg [place] 10 mg 6-22 by mouth ity of tablet 20:31: daily. [address] amLODIPine 2020-0 Yes 5mg Take 5 mg Un [place] 5 mg tablet 6-22 by mouth ity of 20:31: daily. [address] enalapril 2020-0 Yes 10mg Take 10 mg [place] 10 mg 6-22 by mouth ity of tablet 20:31: daily. [address] amLODIPine 2020-0 Yes 5mg Take 5 mg Un [place] 5 mg tablet 6-22 by mouth ity of 20:31: daily. [address] enalapril 2020-0 Yes 10mg Take 10 mg Un [place] 10 mg 6-22 by mouth ity of tablet 20:31: daily. [address] amLODIPine 2020-0 Yes 5mg Take 5 mg Un [place] 5 mg tablet 6-22 by mouth ity of 20:31: daily. [address] enalapril 2020-0 Yes 10mg Take 10 mg [place] 10 mg 6-22 by mouth ity of tablet 20:31: daily. [address] amLODIPine 2020-0 Yes 5mg Take 5 mg Un [place] 5 mg tablet 6-22 by mouth ity of 20:31: daily. [address] enalapril 2020-0 Yes 10mg Take 10 mg [place] 10 mg 6-22 by mouth ity of tablet 20:31: daily. [address] amLODIPine 2020-0 Yes 5mg Take 5 mg Un [place] 5 mg tablet 6-22 by mouth ity of 20:31: daily. [address] enalapril 2020-0 Yes 10mg Take 10 mg [place] 10 mg 6-22 by mouth ity of tablet 20:31: daily. [address] amLODIPine 2020-0 Yes 5mg Take 5 mg [place] 5 mg tablet 6-22 by mouth ity of 20:31: daily. [address] enalapril 2020-0 Yes 10mg Take 10 mg [place] 10 mg 6-22 by mouth ity of tablet 20:31: daily. [address] amLODIPine 2020-0 Yes 5mg Take 5 mg Un [place] 5 mg tablet 6-22 by mouth ity of 20:31: daily. [address] enalapril 2020-0 Yes 10mg Take 10 mg [place] 10 mg 6-22 by mouth ity of tablet 20:31: daily. [address] amLODIPine 2020-0 Yes 5mg Take 5 mg Un [place] 5 mg tablet 6-22 by mouth ity of 20:31: daily. [address] enalapril 2020-0 Yes 10mg Take 10 mg [place] 10 mg 6-22 by mouth ity of tablet 20:31: daily. [address] amLODIPine 2020-0 Yes 5mg Take 5 mg Un [place] 5 mg tablet 6-22 by mouth ity of 20:31: daily. [address] enalapril 2020-0 Yes 10mg Take 10 mg [place] 10 mg 6-22 by mouth ity of tablet 20:31: daily. [address] amLODIPine 2020-0 Yes 5mg Take 5 mg [place] 5 mg tablet 6-22 by mouth ity of 20:31: daily. [address] enalapril 2020-0 Yes 10mg Take 10 mg [place] 10 mg 6-22 by mouth ity of tablet 20:31: daily. [address] amLODIPine 2020-0 Yes 5mg Take 5 mg [place] 5 mg tablet 6-22 by mouth ity of 20:31: daily. [address] enalapril 2020-0 Yes 10mg Take 10 mg [place] 10 mg 6-22 by mouth ity of tablet 20:31: daily. [address] amLODIPine 2020-0 Yes 5mg Take 5 mg [place] 5 mg tablet 6-22 by mouth ity of 20:31: daily. [address] enalapril 2020-0 Yes 10mg Take 10 mg [place] 10 mg 6-22 by mouth ity of tablet 20:31: daily. [address] amLODIPine 2020-0 Yes 5mg Take 5 mg Un [place] 5 mg tablet 6-22 by mouth ity of 20:31: daily. [address] enalapril 2020-0 Yes 10mg Take 10 mg [place] 10 mg 6-22 by mouth ity of tablet 20:31: daily. [address] amLODIPine 2020-0 Yes 5mg Take 5 mg Un [place] 5 mg tablet 6-22 by mouth ity of 20:31: daily. [address] enalapril 2020-0 Yes 10mg Take 10 mg [place] 10 mg 6-22 by mouth ity of tablet 20:31: daily. [address] amLODIPine 2020-0 Yes 5mg Take 5 mg Un [place] 5 mg tablet 6-22 by mouth ity of 20:31: daily. [address] enalapril 2020-0 Yes 10mg Take 10 mg [place] 10 mg 6-22 by mouth ity of tablet 20:31: daily. [address] enalapril 2020-0 Yes 10mg Take 10 mg [place] 10 mg 6-22 by mouth ity of tablet 20:31: daily. [address] amLODIPine 2020-0 Yes 5mg Take 5 mg [place] 5 mg tablet 6-22 by mouth ity of 20:31: daily. [address] enalapril 2020-0 Yes 10mg Take 10 mg [place] 10 mg 6-22 by mouth ity of tablet 20:31: daily. [address] amLODIPine 2020-0 Yes 5mg Take 5 mg [place] 5 mg tablet 6-22 by mouth ity of 20:31: daily. [address] amLODIPine 2020-0 Yes 5mg Take 5 mg Un [place] 5 mg tablet 6-22 by mouth ity of 20:31: daily. [address] enalapril 2020-0 Yes 10mg Take 10 mg [place] 10 mg 6-22 by mouth ity of tablet 20:31: daily. [address] amLODIPine 2020-0 Yes 5mg Take 5 mg Un [place] 5 mg tablet 6-22 by mouth ity of 20:31: daily. [address] enalapril 2020-0 Yes 10mg Take 10 mg [place] 10 mg 6-22 by mouth ity of tablet 20:31: daily. [address] amLODIPine 2020-0 Yes 5mg Take 5 mg [place] 5 mg tablet 6-22 by mouth ity of 20:31: daily. [address] enalapril 2020-0 Yes 10mg Take 10 mg Un [place] 10 mg 6-22 by mouth ity of tablet 20:31: daily. [address] amLODIPine 2020-0 Yes 5mg Take 5 mg Un [place] 5 mg tablet 6-22 by mouth ity of 20:31: daily. [address] enalapril 2020-0 Yes 10mg Take 10 mg [place] 10 mg 6-22 by mouth ity of tablet 20:31: daily. [address] amLODIPine 2020-0 Yes 5mg Take 5 mg [place] 5 mg tablet 6-22 by mouth ity of 20:31: daily. [address] enalapril 2020-0 Yes 10mg Take 10 mg [place] 10 mg 6-22 by mouth ity of tablet 20:31: daily. [address] amLODIPine 2020-0 Yes 5mg Take 5 mg [place] 5 mg tablet 6-22 by mouth ity of 20:31: daily. [address] enalapril 2020-0 Yes 10mg Take 10 mg [place] 10 mg 6-22 by mouth ity of tablet 20:31: daily. [address] amLODIPine 2020-0 Yes 5mg Take 5 mg [place] 5 mg tablet 6-22 by mouth ity of 20:31: daily. [address] enalapril 2020-0 Yes 10mg Take 10 mg [place] 10 mg 6-22 by mouth ity of tablet 20:31: daily. [address] amLODIPine 2020-0 Yes 5mg Take 5 mg [place] 5 mg tablet 6-22 by mouth ity of 20:31: daily. [address] enalapril 2020-0 Yes 10mg Take 10 mg [place] 10 mg 6-22 by mouth ity of tablet 20:31: daily. [address] amLODIPine 2020-0 Yes 5mg Take 5 mg [place] 5 mg tablet 6-22 by mouth ity of 20:31: daily. [address] enalapril 2020-0 Yes 10mg Take 10 mg [place] 10 mg 6-22 by mouth ity of tablet 20:31: daily. [address] amLODIPine 2020-0 Yes 5mg Take 5 mg [place] 5 mg tablet 6-22 by mouth ity of 20:31: daily. [address] enalapril 2020-0 Yes 10mg Take 10 mg [place] 10 mg 6-22 by mouth ity of tablet 20:31: daily. [address] amLODIPine 2020-0 Yes 5mg Take 5 mg [place] 5 mg tablet 6-22 by mouth ity of 20:31: daily. [address] enalapril 2020-0 Yes 10mg Take 10 mg [place] 10 mg 6-22 by mouth ity of tablet 20:31: daily. [address] amLODIPine 2020-0 Yes 5mg Take 5 mg [place] 5 mg tablet 6-22 by mouth ity of 20:31: daily. [address] enalapril 2020-0 Yes 10mg Take 10 mg [place] 10 mg 6-22 by mouth ity of tablet 20:31: daily. [address] amLODIPine 2020-0 Yes 5mg Take 5 mg [place] 5 mg tablet 6-22 by mouth ity of 20:31: daily. [address] enalapril 2020-0 Yes 10mg Take 10 mg [place] 10 mg 6-22 by mouth ity of tablet 20:31: daily. [address] enalapril 2020-0 Yes 10mg Take 10 mg [place] 10 mg 6-22 by mouth ity of tablet 20:31: daily. [address] amLODIPine 2020-0 Yes 5mg Take 5 mg [place] 5 mg tablet 6-22 by mouth ity of 20:31: daily. [address] amLODIPine 2020-0 Yes 5mg Take 5 mg [place] 5 mg tablet 6-22 by mouth ity of 20:31: daily. [address] enalapril 2020-0 Yes 10mg Take 10 mg [place] 10 mg 6-22 by mouth ity of tablet 20:31: daily. [address] amLODIPine 2020-0 Yes 5mg Take 5 mg [place] 5 mg tablet 6-22 by mouth ity of 20:31: daily. [address] enalapril 2020-0 Yes 10mg Take 10 mg [place] 10 mg 6-22 by mouth ity of tablet 20:31: daily. [address] amLODIPine 2020-0 Yes 5mg Take 5 mg [place] 5 mg tablet 6-22 by mouth ity of 20:31: daily. [address] enalapril 2020-0 Yes 10mg Take 10 mg [place] 10 mg 6-22 by mouth ity of tablet 20:31: daily. [address] amLODIPine 2020-0 Yes 5mg Take 5 mg Un [place] 5 mg tablet 6-22 by mouth ity of 20:31: daily. [address] ciprofloxac 2020-0 2020- No [id number] 500mg Take 1 Univers in HCl 500 6-22 06-22 tablet by ity of mg tablet 00:00: 00:00 mouth [place] 00 :00 every 12 Medical (twelve) Branch hours for 3 days. Start 1 day before procedure. ciprofloxac 2020-0 2020- No [id number] 500mg Take 1 Univers in HCl 500 6-22 06-22 tablet by ity of mg tablet 00:00: 00:00 mouth [place] 00 :00 every 12 Medical (twelve) Branch hours for 3 days. Start 1 day before procedure. ciprofloxac 2020- No [id number] 500mg Take 1 Univers in HCl 500 09-02 tablet by ity of mg tablet 00:00: 00:00 mouth [place] 00 :00 every 12 Medical (twelve) Branch hours for 3 days. Start 1 day before procedure. ciprofloxac 2020- No [id number] 500mg Take 1 Univers in HCl 500 09-02 tablet by ity of mg tablet 00:00: 00:00 mouth [place] 00 :00 every 12 Medical (twelve) Branch hours for 3 days. Start 1 day before procedure. No known No Univers medications ity of [facility] [place] [facility] Immunizations Ordered Filled Immunization Date Status Comments [facility] Immunization Name Name Kendra SARS-CoV-2 2020-05-31 Completed Univer sity of Vaccination 00:00:00 Sita Wagner [facility] SARS-CoV-2 2020-05-31 Completed Univer sity of Vaccination 00:00:00 Sita Wagner [facility] Kendra SARS-CoV-2 2020-05-31 Completed Univer sity of Vaccination 00:00:00 Sita Wagner [facility] Kendra SARS-CoV-2 2020-05-31 Completed Univer sity of Vaccination 00:00:00 Sita Wagner [facility] SARS-CoV-2 2020-05-31 Completed Univer sity of Vaccination 00:00:00 Sita Wagner [facility] Kendra SARS-CoV-2 2020-05-31 Completed Univer sity of Vaccination 00:00:00 Sita Wagner [facility] Kendra SARS-CoV-2 2020-05-31 Completed Univer sity of Vaccination 00:00:00 Sita Wagner [facility] Kendra SARS-CoV-2 2020-05-31 Completed Univer sity of Vaccination 00:00:00 Sita Wagner [facility] SARS-CoV-2 2020-05-31 Completed Univer sity of Vaccination 00:00:00 Sita Wagner [facility] Kendra SARS-CoV-2 2020-05-31 Completed Univer sity of Vaccination 00:00:00 Sita Wagner [facility] SARS-CoV-2 2020-05-31 Completed Univer sity of Vaccination 00:00:00 Sita Wagner [facility] Kendra SARS-CoV-2 2020-05-31 Completed Univer sity of Vaccination 00:00:00 Sita Wagner [facility] Kendra SARS-CoV-2 2020-05-31 Completed Univer sity of Vaccination 00:00:00 Sita Wagner [facility] remdesivir 2020-03-07 Completed University of 00:00:00 Sita Gonsaleser [facility] remdesivir 2020-03-07 Completed University of 00:00:00 Sita ANDINO Dave [facility] remdesivir 2020-03-07 Completed University of 00:00:00 Sita Gonsaleser [facility] remdesivir 2020-03-07 Completed University of 00:00:00 Sita Gonsaleser [facility] remdesivir 2020-03-07 Completed University of 00:00:00 Sita Gonsaleser [facility] remdesivir 2020-03-07 Completed University of 00:00:00 Sita Gonsaleser [facility] remdesivir 2020-03-07 Completed University of 00:00:00 Sita Gonsaleser [facility] remdesivir 2020-03-07 Completed University of 00:00:00 Sita Gonsaleser [facility] remdesivir 2020-03-07 Completed University of 00:00:00 Sita Gonsaleser [facility] remdesivir 2020-03-07 Completed University of 00:00:00 Sita Gonsaleser [facility] remdesivir 2020-03-07 Completed University of 00:00:00 Sita Acosta [facility] remdesivir 2020-03-07 Completed University of 00:00:00 Sita Gonsaleser [facility] remdesivir 2020-03-07 Completed University of 00:00:00 Sita Gonsaleser [facility] remdesivir 2020-03-06 Completed University of 00:00:00 Sita Acosta [facility] remdesivir 2020-03-06 Completed University of 00:00:00 Sita Gonsaleser [facility] remdesivir 2020-03-06 Completed University of 00:00:00 Sita Gonsaleser [facility] remdesivir 2020-03-06 Completed University of 00:00:00 Sita Acosta [facility] remdesivir 2020-03-06 Completed University of 00:00:00 Sita Acosta [facility] remdesivir 2020-03-06 Completed University of 00:00:00 Sita ANDINO Dave [facility] remdesivir 2020-03-06 Completed University of 00:00:00 Sita ANDINO Dave [facility] remdesivir 2020-03-06 Completed University of 00:00:00 Sita ANDINO Dave [facility] remdesivir 2020-03-06 Completed University of 00:00:00 Sita ANDINO Dave [facility] remdesivir 2020-03-06 Completed University of 00:00:00 Sita ANDINO Dave [facility] remdesivir 2020-03-06 Completed University of 00:00:00 [place] Dave [facility] remdesivir 2020-03-06 Completed University of 00:00:00 [place] Dave [facility] remdesivir 2020-03-06 Completed University of 00:00:00 Sita ANDINO Dave [facility] remdesivir 2020-03-05 Completed University of 00:00:00 Sita ANDINO Dave [facility] remdesivir 2020-03-05 Completed University of 00:00:00 Sita ANDINO Dave [facility] remdesivir 2020-03-05 Completed University of 00:00:00 Sita ANDINO Dave [facility] remdesivir 2020-03-05 Completed University of 00:00:00 Sita ANDINO Dave [facility] remdesivir 2020-03-05 Completed University of 00:00:00 Sita ANDINO Dave [facility] remdesivir 2020-03-05 Completed University of 00:00:00 Sita ANDINO Dave [facility] remdesivir 2020-03-05 Completed University of 00:00:00 Sita Gonsaleser [facility] remdesivir 2020-03-05 Completed University of 00:00:00 Sita ANDINO Dave [facility] remdesivir 2020-03-05 Completed University of 00:00:00 Sita Gonsaleser [facility] remdesivir 2020-03-05 Completed University of 00:00:00 Sita Gonsaleser [facility] remdesivir 2020-03-05 Completed University of 00:00:00 Sita Gonsaleser [facility] remdesivir 2020-03-05 Completed University of 00:00:00 Sita Gonsaleser [facility] remdesivir 2020-03-05 Completed University of 00:00:00 Sita Gonsaleser [facility] remdesivir 2020-03-04 Completed University of 00:00:00 Sita ANDINO Dave [facility] remdesivir 2020-03-04 Completed University of 00:00:00 St[place] Gonsaleser [facility] remdesivir 2020-03-04 Completed University of 00:00:00 Sita ANDINO Dave [facility] remdesivir 2020-03-04 Completed University of 00:00:00 Sita ANDINO Dave [facility] remdesivir 2020-03-04 Completed University of 00:00:00 Sita ANDINO Dave [facility] remdesivir 2020-03-04 Completed University of 00:00:00 [place] Dave [facility] remdesivir 2020-03-04 Completed University of 00:00:00 [place] Dave [facility] remdesivir 2020-03-04 Completed University of 00:00:00 [place] Dave [facility] remdesivir 2020-03-04 Completed University of 00:00:00 Sita ANDINO Dave [facility] remdesivir 2020-03-04 Completed University of 00:00:00 Sita ANDINO Dave [facility] remdesivir 2020-03-04 Completed University of 00:00:00 Sita ANDINO Dave [facility] remdesivir 2020-03-04 Completed University of 00:00:00 Sita ANDINO Dave [facility] remdesivir 2020-03-04 Completed University of 00:00:00 Sita ANDINO Dave [facility] remdesivir 2020-03-03 Completed University of 00:00:00 Sita ANDINO Dave [facility] remdesivir 2020-03-03 Completed University of 00:00:00 Sita Gonsaleser [facility] remdesivir 2020-03-03 Completed University of 00:00:00 Sita Gonsaleser [facility] remdesivir 2020-03-03 Completed University of 00:00:00 Sita Gonsaleser [facility] remdesivir 2020-03-03 Completed University of 00:00:00 Sita Gonsaleser [facility] remdesivir 2020-03-03 Completed University of 00:00:00 Sita Gonsaleser [facility] remdesivir 2020-03-03 Completed University of 00:00:00 Sita Gonsaleser [facility] remdesivir 2020-03-03 Completed University of 00:00:00 Sita Gonsaleser [facility] remdesivir 2020-03-03 Completed University of 00:00:00 [facility] rem[facility] 2020-03-03 Completed University of 00:00:00 Sita ANDINO Dave [facility] remdesivir 2020-03-03 Completed University of 00:00:00 Sita ANDINO Dave [facility] remdesivir 2020-03-03 Completed University of 00:00:00 Sita ANDINO Dave [facility] remdesivir 2020-03-03 Completed University of 00:00:00 Sita ANDINO Dave [facility] pneumococcal 2020-01-10 Completed polysacchar 00:00:00 Tdap 2020-01-10 Completed 00:00:00 pneumococcal 2020-01-10 Completed polysacchar 00:00:00 Tdap 2020-01-10 Completed 00:00:00 Influenza, 2020-01-01 Completed seasonal, inj 00:00:00 Influenza, 2020-01-01 Completed seasonal, inj 00:00:00 Vital Signs Vital Name Observation Time Observation Value Comments Source WEIGHT 2020-02-13 11:54:00 65.8 kg Systolic blood 2019-10-11 18:23:00 153 mm[Hg] Univer sity of [facility] Diastolic blood 2019-10-11 18:23:00 69 mm[Hg] Unive rsity of [facility] Heart rate 2019-10-11 18:23:00 64 /min [facility] Body temperature 2019-10-11 18:23:00 36.67 [facility] 2019-10-11 18:23:00 14 /min [facility] Body weight 2019-10-11 18:23:00 65.091 kg [facility] BMI 2019-10-11 18:23:00 23.16 kg/m2 [facility] Oxygen saturation in 2019-10-11 18:23:00 96 /min [facility] Arterial blood by [facility] Pulse oximetry Branch Systolic blood 2019-09-14 15:02:00 150 mm[Hg] Univer sity of [facility] Diastolic blood 2019-09-14 15:02:00 71 mm[Hg] Unive rsity of pressure [facility] [place] [facility] Heart rate 2019-09-14 15:02:00 68 /min [facility] Body temperature 2019-09-14 15:02:00 36.78 [facility] 2019-09-14 15:02:00 15 /min Univ ersity of [facility] Body weight 2019-09-14 15:02:00 68.493 kg Universi ty of [facility] BMI 2019-09-14 15:02:00 24.37 kg/m2 Universi ty of [facility] [place] [facility] Oxygen saturation in 2019-09-14 15:02:00 98 /min University of Arterial blood by [facility] Pulse oximetry Branch Systolic blood 2019-09-03 20:27:00 156 mm[Hg] Univer sity of pressure [facility] Diastolic blood 2019-09-03 20:27:00 76 mm[Hg] Unive rsity of pressure [facility] [place] [facility] Heart rate 2019-09-03 20:27:00 80 /min Universi ty of [facility] [place] [facility] Body temperature 2019-09-03 20:27:00 36.44 Lyn Univ ersity of [facility] [place] [facility] Respiratory rate 2019-09-03 20:27:00 14 /min Univ ersity of [facility] [place] [facility] Body height 2019-09-03 20:27:00 167.6 cm Universi ty of [facility] [place] [facility] Body weight 2019-09-03 20:27:00 68.493 kg Universi ty of [facility] [place] [facility] BMI 2019-09-03 20:27:00 24.37 kg/m2 Universi ty of [facility] [place] [facility] Oxygen saturation in 2019-09-03 20:27:00 99 /min University of Arterial blood by [facility] Pulse oximetry Branch Systolic blood 2022-10-03 19:45:00 176 mm[Hg] [facility]iver [facility]ity of [facility] Diastolic blood 2022-10-03 19:45:00 67 mm[Hg] [facility]ive rsity of [facility] Heart rate 2022-10-03 19:45:00 57 /min [facility]i ty [facility] Body temperature 2022-10-03 19:45:00 36.11 Lny Univ ersity of [facility] Respiratory rate 2022-10-03 19:45:00 18 /min Univ ersity of [facility] Oxygen saturation in 2022-10-03 19:45:00 97 /min University of Arterial blood by [facility] Pulse oxim[facility] BP Systolic 2021-12-11 09:07:00 195 mm[Hg] [...] Center Heart rate 2021-05-26 20:34:00 58 /min [facility] Oxygen saturation in 2021-05-26 20:34:00 95 /min University of Arterial blood by [facility] bond Pulse oximetry [facility] Body temperature 2021-05-26 19:59:39 36.72 Lyn Univ ersity [facility] Respiratory rate 2021-05-26 19:59:39 18 /min Univ ersity [facility] Body height 2021-05-23 03:14:00 161 cm [facility] Body weight 2021-05-23 03:14:00 62.8 kg [facility] BMI 2021-05-23 03:14:00 24.23 kg/m2 [facility] BP [...] Performed URINALYSIS WITH 2022-10-03 17:35:00 Josiah Garay [facility] MICROSCOPIC IF INDICATED MD Wagner marycarmen [facility] URINALYSIS MICROSCOPIC 2022-10-03 17:35:00 Josiah Garay [facility] EXAM [facility] URINE CULTURE 2022-10-03 17:35:00 Josiah Garay [facility] COMPLETE BLOOD COUNT W/ 2022-10-03 17:17:00 [facility] COMPREHENSIVE METABOLIC 2022-10-03 17:17:00 [facility] MAGNESIUM LEVEL 2022-10-03 17:17:00 Josiah Garay [facility] PHOSPHORUS LEVEL 2022-10-03 17:17:00 Josiah Garay [facility] LACTATE DEHYDROGENASE 2022-10-03 17:17:00 Josiah Garay [facility] APTT 2022-10-03 17:17:00 Josiah Garay [facility] PROTHROMBIN TIME 2022-10-03 17:17:00 Josiah Garay [facility] Results CBC 2022-10-03 17:17:00 Josiah Garay [facility] MANUAL DIFFERENTIAL 2022-10-03 17:17:00 Josiah Garay [facility] GLUCOSE LEVEL 2022-10-03 17:17:00 Josiah Garay [facility] BLOOD UREA NITROGEN 2022-10-03 17:17:00 Josiah Garay [facility] ELECTROLYTE PANEL 2022-10-03 17:17:00 Josiah Garay [facility] SERUM CREATININE 2022-10-03 17:17:00 Josiah Garay [facility] .GLOMERULAR FILTRATION 2022-10-03 17:17:00 Josiah Garay [facility] CALCIUM LEVEL TOTAL 2022-10-03 17:17:00 Josiah Garay [facility] ALBUMIN LEVEL 2022-10-03 17:17:00 Josiah Garay [facility] ALKALINE PHOSPHATASE 2022-10-03 17:17:[address] [facility] ALANINE AMINOTRANSFERASE 2022-10-03 17:17:00 Josiah Garay [facility] ASPARTATE AMINOTRANSFERASE 2022-10-03 17:17:00 Josiah Garay [facility] TOTAL PROTEIN 2022-10-03 17:17:00 Josiah Garay [facility] FRACTIONATED BILIRUBIN 2022-10-03 17:17:00 Josiah Garay [facility] TROPONIN T 2021-05-26 08:15:00 Yeny [facility] LEFT HEART CATH 2021-05-25 20:45:00 Oma Baldwin [facility] ECHOCARDIOGRAM 2D COMPLETE 2021-05-25 16:20:18 Donell Sosa [facility] TROPONIN T 2021-05-25 09:59:00 Donell Sosa [place] [employer] [facility] PROSTATE SPECIFIC ANTIGEN 2021-05-25 09:59:00 Alams Clements [facility] TESTOSTERONE LEVEL 2021-05-25 09:59:00 Almas Clements [facility] ABORH 2021-05-24 18:07:00 [facility] 2021-05-24 18:07:00 [facility] PROTHROMBIN TIME 2021-05-24 18:07:00 [facility] IMMATURE PLATELET FRACTION 2021-05-24 18:07:00 [facility] RETICULOCYTE COUNT 2021-05-24 18:07:00 Oma Baldwin [facility] CLOT EXPIRATION DATE 2021-05-24 18:07:00 [facility] BASIC METABOLIC PANEL, 2021-05-24 09:19:00 [facility] CALCIUM TOTAL [facility] MAGNESIUM LEVEL 2021-05-24 09:19:00 Donell Sosa [facility] PHOSPHORUS LEVEL 2021-05-24 09:19:00 Donell Sosa [facility] TROPONIN T 2021-05-24 09:19:00 Donell Sosa [facility] GLUCOSE LEVEL 2021-05-24 09:19:00 Donell Sosa [facility] BLOOD UREA NITROGEN 2021-05-24 09:19:00 [facility]EL 2021-05-24 09:19:00 Donell Sosa [facility] SERUM CREATININE 2021-05-24 09:19:00 Yeny [facility] .GLOMERULAR FILTRATION 2021-05-24 09:19:00 Donell Sosa [facility] CALCIUM LEVEL TOTAL 2021-05-24 09:19:00 Donell Sosa [facility] TROPONIN T 2021-05-24 01:03:00 Denny [facility] EKG, 12-LEAD (PORTABLE) 2021-05-24 00:00:00 Marielle Grubbs [facility] TROPONIN T 2021-05-23 19:05:00 Denny [facility] BASIC METABOLIC PANEL, 2021-05-23 08:00:00 Donell Sosa [facility] TOTAL [facility] MAGNESIUM LEVEL 2021-05-23 08:00:00 Yeny [facility] PHOSPHORUS LEVEL 2021-05-23 08:00:00 Yeny [facility] TROPONIN T 2021-05-23 08:00:00 Yeny [facility] GLUCOSE LEVEL 2021-05-23 08:00:00 Yeny [facility] BLOOD UREA NITROGEN 2021-05-23 08:00:00 Donell Sosa [facility] ELECTROLYTE PANEL 2021-05-23 08:00:00 Yeny [facility] SERUM CREATININE 2021-05-23 08:00:00 Yeny [facility] .GLOMERULAR FILTRATION 2021-05-23 08:00:00 [facility] CALCIUM LEVEL TOTAL 2021-05-23 08:00:00 Donell Sosa [facility] Center CT CHEST PULMONARY 2021-05-23 06:00:00 Donell Sosa [facility] [place] EMBOLISM W CONTRAST [facility] CT ABDOMEN PELVIS W 2021-05-23 06:00:00 [facility] XR ABDOMEN 2 VW AP W 2021-05-23 00:24:09 Donell Sosa [facility] UPRIGHT AND OR DECUBITUS MD [facility] [place] TROPONIN T 2021-05-22 23:42:00 Donell Sosa [place] [facility] er Center XR CHEST 1 VW 2021-05-22 21:05:54 Latoya Ho [facility] RESPIRATORY VIRAL 2021-05-22 19:53:00 Latoya Ho [facility] MULTIPLEX PCR PANEL, [facility] NASOPHARYNGEAL SWAB Center COMPLETE BLOOD COUNT W/ 2021-05-22 19:53:00 Latoya Ho [facility] DIFFERENTIAL [facility] COMPREHENSIVE METABOLIC 2021-05-22 19:53:00 Latoya Ho [facility] PANEL [facility] MAGNESIUM LEVEL 2021-05-22 19:53:00 Latoya Ho [facility] PHOSPHORUS LEVEL 2021-05-22 19:53:00 Latoya Ho [facility] CARDIAC PANEL 2021-05-22 19:53:00 Latoya Ho [facility] NT PRO BNP 2021-05-22 19:53:00 Latoya Ho [facility] PROTHROMBIN TIME 2021-05-22 19:53:00 Latoya Ho [facility] APTT 2021-05-22 19:53:00 Latoya Ho [facility] D DIMER 2021-05-22 19:53:00 Latoya Ho [facility] Results CBC 2021-05-22 19:53:00 Latoya Ho [facility] MANUAL DIFFERENTIAL 2021-05-22 19:53:00 Latoya Ho [facility] GLUCOSE LEVEL 2021-05-22 19:53:00 Latoya Ho [facility] BLOOD UREA NITROGEN 2021-05-22 19:53:00 Latoya Ho [facility] ELECTROLYTE PANEL 2021-05-22 19:53:00 [facility] CREATININE 2021-05-22 19:53:00 Latoya Ho [facility] .GLOMERULAR FILTRATION 2021-05-22 19:53:00 Latoya Ho [facility] CALCIUM LEVEL TOTAL 2021-05-22 19:53:00 Latoya Ho [facility] ALBUMIN LEVEL 2021-05-22 19:53:00 Latoya Ho [facility] ALKALINE PHOSPHATASE 2021-05-22 19:53:00 [facility] ALANINE AMINOTRANSFERASE 2021-05-22 19:53:00 Lea Ho [facility] ASPARTATE AMINOTRANSFERASE 2021-05-22 19:53:00 Lizeth Ho [facility] TOTAL PROTEIN 2021-05-22 19:53:00 Latoya Ho [facility] FRACTIONATED BILIRUBIN 2021-05-22 19:53:00 Latoya Ho [facility] POC TROPONIN I 2021-05-22 19:49:00 Nida Shaffer [facility] EKG, 12-LEAD (PORTABLE) 2021-05-22 00:00:00 Nida Shaffer [facility] EXTERNAL PROVIDER RECORDS 2019-10-04 05:01:00 Doctor Unasschidi, [facility] EXTERNAL PROVIDER RECORDS 2019-10-03 05:01:00 Doctor Unassigned, [facility] [place] EXTERNAL PROVIDER RECORDS 2019-09-28 05:01:00 Doctor Unasschidi, [facility] [place] SURGICAL PATHOLOGY EXAM 2019-09-14 15:52:00 Pako Lopez [facility] AUDIOVISUAL TECHNICIAN CLINIC ULTRASOUND 2019-09-14 05:01:00 Doctor Valeriy [facility] [place] PROSTATIC SPECIFIC ANTIGEN 2019-09-03 21:05:00 Pako Lopez [facility] URINE CULTURE 2019-09-03 21:05:00 Pako Lopez [place] [facility] DISCLOSURE AND CONSENT, Doctor Valeriy [facility] MEDICAL AND SURGICAL [place] [facility] PROCEDURES Plan of Care Planned Activity Planned Date Details Comments Source Future Scheduled 2022-10-12 COVID-19 Vaccination [facility] [place] Test 15:09:52 (2 - Kendra risk [facility] Cancer series) [code = Center COVID-19 Vaccination (2 - Kendra risk series)] Future Scheduled 2022-10-06 COVID-19 Vaccination Uni versity [...] Goal Plan of Care Note [code = 02167-5] Goal Plan of Care Note [code = 44025-0] Goal Plan of Care Note [code = 65258-7] Goal Plan of Care Note [code = 89043-2] Goal Plan of Care Note [code = 66737-5] Goal Plan of Care Note [code = 45104-5] Goal Plan of Care Note [code = 86251-3] Goal Plan of Care Note [code = 28345-0] Goal Plan of Care Note [code = 21657-6] Goal Plan of Care Note [code = 17420-4] Goal Plan of Care Note [code = 95111-3] Goal Plan of Care Note [code = 10581-8] Goal Plan of Care Note [code = 53957-4] Goal Plan of Care Note [code = 11394-6] Goal Plan of Care Note [code = 53016-2] Goal Plan of Care Note [code = 26016-4] Goal Plan of Care Note [code = 19028-6] Goal Plan of Care Note [code = 45231-4] Goal Plan of Care Note [code = 26430-6] Goal Plan of Care Note [code = 76444-4] Goal Plan of Care Note [code = 06835-2] Goal Plan of Care Note [code = 01209-2] Encounters Start End Encounter Admission Attending Care Care Encounter Source Date/Time Date/Time Type Type Clinicians Facility Department ID 2022-10-05 2022-10-05 Orders Joyner, 1.2.840.1 [id number] Univers 00:00:00 00:00:00 Only Kirstie Rush 99467.1.1 ity of 3.412.2.7 [place] .3.914779 MD [facility] 2022-10-05 2022-10-05 Orders Ar, 1.2.840.1 [id number] Univers 00:00:00 00:00:00 Only Kirstie Rush 48648.1.1 ity of 3.412.2.7 [place] .3.416311 MD [facility] 2022-10-03 2022-10-03 Josiah Butler 1.2.840.1 [id number] Univers 11:54:00 15:08:00 Gianfranco 50122.1.1 ity of 3.412.2.7 [place] .3.446120 MD [facility] 2022-10-03 2022-10-03 Emergency UR Josiah Garay 1.2.840.1 [id number] [facility] 11:54:00 15:08:00 Gianfranco 17719.1.1 ity of 3.412.2.7 [place] .3.159411 MD [facility] 2022-10-03 2022-10-03 Travel 1.2.840.1 1.2.037.927 [id number] Univers 00:00:00 00:00:00 89470.1.1 350.1.13.41 ity of 3.412.2.[place].698 [place].3487[place] 084.8 MD [facility] 2022-10-03 2022-10-03 Travel 1.2.840.1 1.2.260.559 [id number] Univers 00:00:00 00:00:00 66914.1.1 350.1.13.41 ity of 3.412.2.[place].698 [place] .3.087113 084.Kylee [facility] 2022-08-18 2022-08-18 Outpatient SFA SFA [id number] [place] 15:04:19 15:04:19 0607 Riley Torres 2022-06-09 2022-06-09 Shawn Brandon, 1.2.840.1 [id number] Univers 00:00:00 00:00:00 Viancaema 26500.1.1 ity of 3.412.2.7 [place] .3.853323 MD [facility] 2022-06-09 2022-06-09 Shawn Brandon, 1.2.840.1 [id number] Univers 00:00:00 00:00:00 Saleemah 94054.1.1 ity of 3.412.2.7 [place] .3.780277 MD [facility] 2022-03-19 2022-03-19 Outpatient SFA SFA [id number] [place] 08:21:50 08:21:50 0106 F Brian 2021-12-11 2021-12-11 Outpatient SFA SFA [id number] [place] 08:53:23 08:53:23 0930 F Brian 2021-12-11 2021-12-11 Outpatient [id number] 00:00:00 00:00:00 Visit [id number] 2021-12-02 Shawn Brandon, 1.2.840.1 [id number] Univers 00:00:00 00:00:00 Saleemah 62590.1.1 ity of 3.412.2.7 [place] .3.374931 MD [facility] 2021-12-02 2021-12-02 Shawn Brandon 1.2.840.1 [id number] Univers 00:00:00 00:00:00 Viancaemah 59161.1.1 ity of 3.412.2.7 [place] .3.211694 MD [facility] 2021-11-19 2021-11-19 Shawn Palacios 1.2.840.1 [id number] Univers 00:00:00 00:00:00 Kye 34214.1.1 ity of 3.412.2.7 [place] .3.851753 MD [facility] 2021-11-19 2021-11-19 Shawn Palacios 1.2.840.1 [id number] Univers 00:00:00 00:00:00 Kye 31477.1.1 ity of [place].412.2.7 [place] .3.418070 MD [facility] 2021-11-10 2021-11-10 Outpatient [id number] 00:00:00 00:00:00 Visit [id number] 2021-11-02 2021-11-02 Shawn Palacios 1.2.840.1 [id number] Univers 00:00:00 00:00:00 Kye 55133.1.1 ity of 3.412.2.7 [place] .3.387505 MD Rhoades8 [facility] 2021-11-02 2021-11-02 Shawn Palacios, 1.2.840.1 [id number] Univers 00:00:00 00:00:00 Kye 94644.1.1 ity of 3.412.2.7 [place] .3.715005 MD Rhoades8 [facility] 2021-10-05 2021-10-05 Keenan Jones, 1.2.840.1 [id number] Univers 00:00:00 00:00:00 Only Ashley Shankar 72818.1.1 it y of 3.412.2.7 [place] .3.768263 MD Rhoades8 [facility] 2021-09-23 2021-09-23 Shawn Palacios, 1.2.840.1 [id number] Univers 00:00:00 00:00:00 Kye 10666.1.1 ity of 3.412.2.7 [place] .3.809024 MD Rhoades8 [facility] 2021-09-23 2021-09-23 Shawn Jones, 1.2.840.1 [id number] Univers 00:00:00 00:00:00 Ashley Shankar 91549.1.1 it y of 3.412.2.7 [place] .3.843103 MD Rhoades8 [facility] 2021-09-21 2021-09-21 Shawn Palacios, 1.2.840.1 [id number] Univers 00:00:00 00:00:00 Kye 07328.1.1 ity of 3.412.2.7 [place] .3.534817 MD Rhoades8 [facility] 2021-05-22 2021-05-26 [facility] 1.2.840.1 [id number] Univers 13:28:00 17:49:00 Zoey Pineda 14428.1.1 ity of Srinivas Nguyen 3.412.2.7 [place] Almas Clements .3.346596 Kye Elizondo .8 [facility] 2021-05-25 2021-05-25 [facility] GILMA HOANG MDA [facility] [id number] 14:52:01 17:26:46 OMA [facility] 2021-05-22 2021-05-22 Travel 1.2.840.1 1.2.036.418 [id number] Univers 00:00:00 00:00:00 95567.1.1 350.1.13.41 ity of 3.412.2.[place].698 [place]3.573758 084.8 .8 [facility] 2021-05-17 2021-05-17 Shawn Jones, 1.2.840.1 [id number] Univers 00:00:00 00:00:00 Barrett 80306.1.1 ity of 3.412.2.7 [place] .3.329266 .8 [facility] 2021-04-29 2021-04-29 Keenan Baldwin, 1.2.840.1 [id number] Univers 00:00:00 00:00:00 Only Oma 67386.1.1 ity of 3.412.2.7 [place] .3.405504 .8 [facility] 2021-04-29 2021-04-29 Vianey Stuart, 1.2.840.1 [id number] Univers 00:00:00 00:00:00 Serena 94295.1.1 ity of 3.412.2.7 [place] .3.121600 MD Rhoades8 [facility] 2021-03-20 2021-03-20 Keenan Sharma, 1.2.840.1 [id number] Univers 00:00:00 00:00:00 Only Maaurelio 42745.1.1 i ty of M 3.412.2.7 [place] .3.837033 MD [facility] 2021-03-20 2021-03-20 Documentat Zachary, 1.2.840.1 [id number] Univers 00:00:00 00:00:00 ion Angelika 02403.1.1 i ty of M 3.412.2.7 [place] .3.251011 MD Rhoades8 [facility] 2021-01-12 2021-01-12 Reflou Stuart, 1.2.840.1 [id number] Univers 00:00:00 00:00:00 Serena 61096.1.1 ity of 3.412.2.7 [place] .3.052148 MD [facility] 2021-01-12 2021-01-12 Keenan Nails, 1.2.840.1 [id number] Univers 00:00:00 00:00:00 Only Kait 77333.1.1 ity of 3.412.2.7 [place] .3.938436 MD Rhoades8 [facility] 2020-11-20 2020-11-20 Reflou Stratton, 1.2.840.1 [id number] Univers 00:00:00 00:00:00 Sanjuanita 88484.1.1 ity of 3.412.2.7 [place] .3.480300 MD [facility] 2020-11-19 2020-11-19 Vianey Menjivar 1.2.840.1 [id number] Univers 00:00:00 00:00:00 Hang Rush 93176.1.1 it y of 3.412.2.7 [place] .3.743039 MD [facility] 2020-11-19 2020-11-19 Nurse Only Otto, 1.2.840.1 [id number] Univers 00:00:00 00:00:00 Hang Rush 83789.1.1 it y of 3.412.2.7 [place] .3.841949 .8 [facility] 2020-10-31 2020-10-31 Outpatient JOSH, MDA MDA [id number] MD 11:32:23 11:32:23 AUBREY Rayaer so n 2020-10-27 2020-10-27 Outpatient CORKY, MDA MDA [id number] 15:24:16 16:01:02 JORJE Wagner rso n 2020-10-17 2020-10-17 [facility], MDA MDA [id number] MD 12:53:40 23:59:00 ERWIN Nathan o n 2020-10-16 2020-10-16 [facility], MDA MDA [id number] MD 12:10:00 23:59:00 ERWIN Nathan o n 2020-10-15 2020-10-15 [facility]patient [facility], MDA MDA [id number] MD 12:30:00 23:59:00 ERWIN Nathan o n 2020-10-14 2020-10-14 [facility]patient [facility], MDA MDA [id number] MD 11:21:52 23:59:00 ERWIN Nathan o n 2020-10-13 2020-10-13 Outpatient [facility], MDA MDA [id number] MD 12:26:36 23:59:00 ERWIN Nathan o n 2020-10-10 2020-10-10 Outpatient [facility], MDA MDA [id number] MD 11:40:24 23:59:00 ERWIN Nathan o n 2020-10-09 2020-10-09 [facility]patient [facility], MDA MDA [id number] MD 11:40:00 23:59:00 ERWIN Nathan o n 2020-10-08 2020-10-08 [facility], MDA MDA [id number] MD 12:05:00 23:59:00 ERWIN Nathan o n 2020-10-08 2020-10-08 Outpatient [facility], MDA MDA [id number] MD 10:15:00 12:04:00 DEDE Wagner rso n 2020 2020 Outpatient [facility], MDA MDA [id number] MD 11:55:00 23:59:00 ERWIN Nathan o n 2020 2020 Outpatient [facility], MDA MDA [id number] MD 09:55:27 11:49:27 HAILY And erso n 2020-10-06 2020-10-06 Outpatient [facility], MDA MDA [id number] MD 11:30:00 23:59:00 ERWIN Nathan o n 2020-10-03 2020-10-03 Outpatient [facility], MDA MDA [id number] MD 10:08:21 23:59:00 ERWIN Nathan o n 2020-10-01 2020-10-01 Outpatient [facility], MDA MDA [id number] MD 10:14:10 23:59:00 BOONE-BRANDEN Bernard rso n 2020-09-30 2020-09-30 Outpatient [facility], MDA MDA [id number] MD 11:27:01 23:59:00 ERWIN Nathan o n 2020-09-29 2020-09-29 Outpatient [facility], MDA MDA [id number] MD 11:30:00 23:59:00 ERWIN Nathan o n 2020-09-26 2020-09-26 Outpatient [facility], MDA MDA [id number] MD 12:00:00 23:59:00 ERWIN Nathan o n 2020-09-25 2020-09-25 Outpatient [facility], MDA MDA [id number] MD 11:50:00 23:59:00 ERWIN Nathan o n 2020-09-24 2020-09-24 Outpatient [facility], MDA MDA [id number] MD 11:07:31 23:59:00 ERWIN Nathan o n 2020-09-24 2020-09-24 Outpatient [facility], MDA MDA [id number] MD 10:15:00 11:06:00 BOONE-BRANDEN Bernard rso n 2020-09-24 2020-09-24 Outpatient [facility], MDA MDA [id number] MD 10:00:00 10:14:00 ERWIN Nathan o n 2020-09-24 2020-09-24 Outpatient [facility], MDA MDA [id number] MD 08:56:38 09:14:00 ERWIN Nathan o n 2020-09-23 2020-09-23 Outpatient [facility], MDA MDA [id number] MD 12:01:45 23:59:00 ERWIN Nathan o n 2020-09-22 2020-09-22 Outpatient [facility], MDA MDA [id number] MD 13:23:44 23:59:00 ERWIN Nathan o n 2020-09-22 2020-09-22 Outpatient [facility], MDA MDA [id number] MD 12:16:14 13:22:00 ERWIN Nathan o n 2020-09-19 2020-09-19 Outpatient [facility], MDA MDA [id number] MD 12:00:00 23:59:00 ERWIN Nathan o n 2020-09-18 2020-09-18 [facility], MDA MDA [id number] MD 12:00:00 23:59:00 ERWIN Nathan o n 2020-09-17 2020-09-17 [facility], MDA MDA [id number] MD 11:01:21 23:59:00 ERWIN Nathan o n 2020-09-17 2020-09-17 Outpatient [facility], MDA MDA [id number] MD 10:15:00 11:00:00 BOONE-BRANDEN Bernard rso n 2020-09-16 2020-09-16 Outpatient [facility], MDA MDA [id number] MD 12:07:04 23:59:00 ERWIN Nathan o n 2020-09-12 2020-09-12 Outpatient [facility], MDA MDA [id number] MD 12:40:00 23:59:00 ERWIN Nathan o n 2020-09-11 2020-09-11 Outpatient [facility], MDA MDA [id number] MD 12:40:00 23:59:00 ERWIN Nathan o n 2020-09-10 2020-09-10 Outpatient [facility], MDA MDA [id number] MD 12:35:00 23:59:00 ERWIN Nathan o n 2020-09-10 2020-09-10 Outpatient [facility], MDA MDA [id number] MD 10:10:54 12:34:00 BOONE-BRANDEN Bernard rso n 2020-09-09 2020-09-09 Outpatient [facility], MDA MDA [id number] MD 12:50:00 23:59:00 ERWIN Nathan o n 2020-09-08 2020-09-08 Outpatient [facility], MDA MDA [id number] MD 12:40:00 23:59:00 ERWIN Nathan o n 2020-09-05 2020-09-05 Outpatient [facility], MDA MDA [id number] MD 12:35:00 23:59:00 ERWIN Nathan o n 2020-09-04 2020-09-04 [facility], MDA MDA [id number] MD 12:35:00 23:59:00 ERWIN Nathan o n 2020-09-03 2020-09-03 Outpatient [facility], MDA MDA [id number] MD 11:45:56 23:59:00 ERWIN Nathan o n 2020-09-03 2020-09-03 Outpatient [facility], MDA MDA [id number] MD 10:45:00 11:44:00 BOONE-BRANDEN Bernard rso n 2020-09-02 2020-09-02 Outpatient [facility], MDA MDA [id number] MD 10:15:00 23:59:00 ERWIN Nathan o n 2020-09-01 2020-09-01 Outpatient [facility], MDA MDA [id number] MD 11:30:00 23:59:00 ERWIN Nathan o n 2020-07-15 2020-07-15 Outpatient [facility], MDA MDA [id number] MD 14:04:29 14:04:29 SANJUANITA Nathan o n 2020-07-15 2020-07-15 Outpatient [facility], MDA MDA [id number] MD 11:34:08 11:34:08 SANJUANITA Nathan o n 2020-05-15 2020-05-15 Outpatient [facility] PDPFFWO DSR COH 00:00:00 00:00:00 SALINA-2020-04-06 2020-04-06 Patient Bryson [facility] 1.2.840.114 [id number] Univers 00:00:00 00:00:00 Outreach Fermin COLLEEN 350.1.13.10 i ty of [place] [facility] [id number] [address] 2020-02-13 2020-02-13 Outpatient GILMA ELMORE, MDA MDA [id number] 11:48:27 16:35:54 ERWIN santacruz 2020-02-13 2020-02-13 Outpatient GILMA STRATTON, MDA MDA [id number] 14:24:42 14:24:42 SANJUANITA santacruz 2020-02-13 2020-02-13 Outpatient EL MDA MDA [id number] 11:45:49 11:46:05 Nathan santacruz 2020-02-11 2020-02-11 Outpatient GILMA ELMORE, MDA MDA [id number] 10:30:46 10:59:09 ERWIN santacruz 2019-12-14 2019-12-14 Telephone [facility] 1.2.840.114 [id number] Univers 00:00:00 00:00:00 [facility] [id number] [id number] [phone] [facility] [address] 2019-11-26 2019-11-26 Telephone [facility] 1.2.840.114 [id number] Univers 00:00:00 00:00:00 un Health [id number] [id number] [id number] [facility] [address] 2019-11-16 2019-11-16 Telephone Lopez, [facility] 1.2.840.114 [id number] Univers 00:00:00 00:00:00 un Health [id number] [id number] [phone] [facility] [address] 2019-11-14 2019-11-14 Telephone Lopez, [facility] 1.2.840.114 [id number] Univers 00:00:00 00:00:00 [facility] [id number] [id number] [phone] [address] 2019-10-11 2019-10-24 Office John [facility] 1.2.840.114 [id number] Univers 13:15:19 09:14:14 Visit [facility] [id number] [id number] [phone] [address] Office Building 2019-10-24 2019-10-24 Telephone [facility] 1.2.840.114 [id number] Univers 00:00:00 00:00:00 [facility] [id number] [id number] [phone] [address] Office Building 2019-10-24 2019-10-24 Patient Thai Silver 1.2.840.114 [id number] Univers 00:00:00 00:00:00 Outreach Jaclyn E Diaz [id number] [id number] [phone] [address] 2019-10-24 2019-10-24 Patient Petra Bai 1.2.840.114 [id number] Univers 00:00:00 00:00:00 Outreach E [place] [id number] [phone] [address] 2019-10-24 2019-10-24 Telephone [facility] 1.2.840.114 [id number] Univers 00:00:00 00:00:00 [facility] 350.1.13.10 [place] [phone] [address] Office Building 2019-10-23 2019-10-23 Telephone [facility] 1.2.840.114 [id number] Univers 00:00:00 00:00:00 [facility] 350.1.13.10 [place] [phone] [address] Office [facility] 2019-10-22 2019-10-22 Telephone [facility] 1.2.840.114 [id number] Univers 00:00:00 00:00:00 [facility] 350.1.13.10 [place] [phone] [address] Office Building 2019-10-19 2019-10-19 Telephone [facility] 1.2.840.114 [id number] Univers 00:00:00 00:00:00 [facility] 350.1.13.10 [place] [phone] [address] Office [facility] 2019-10-11 2019-10-11 Outpatient R [facility] [id number] Univers 13:00:00 13:00:00 ity of [facility] 2019-10-04 2019-10-04 Pako Renteria 1.2.840.114 [id number] Univers 00:00:00 00:00:00 Shun RAHAT 350.1.13.10 it y of [facility] 4.2.7.2.[address] [place] [phone] [facility] [address] [place] 2019-10-04 2019-10-04 Orders Doctor FISHMAN 1.2.840.114 [id number] Univers 00:00:00 00:00:00 Only Unassigned, RAHAT 350.1.13.[address] [facility] 4.2.7.2.[address] [place] [phone] [facility] [address] 2019-10-03 2019-10-03 Outpatient R [facility] [id number] Univers 08:00:00 08:00:00 ity [facility] 2019-10-03 2019-10-03 Telephone [facility] 1.2.840.114 [id number] Univers 00:00:00 00:00:00 [facility] 350.1.13.10 it y of [facility] [place] [phone] [address] Office Building 2019-10-03 2019-10-03 Orders Doctor KYE 1.2.840.114 [id number] Univers 00:00:00 00:00:00 Only Unassigned, RAHAT 350.1.13.10 ity of [place] 4.2.7.2.686 [place] [phone] [address] 2019-09-28 2019-09-28 Orders Doctor KYE 1.2.840.114 [id number] Univers 00:00:00 00:00:00 Only Unassigned, RAHAT 350.1.13.10 ity of [place] [facility] 4.2.7.2.686 [place] [phone] [address] 2019-09-23 2019-09-23 Refill [facility] 1.2.840.114 [id number] Univers 00:00:00 00:00:00 un Health 350.1.13.10 [place] [phone] [address] Office Building 2019-09-21 2019-09-21 Manager Inventory Management Draw, Clc-B[facility] Lab [facility] 1.2.8 40.114 [id number] Univers 12:13:57 12:28:57 Visit [facility] [address] 350.1.13 .10 ity [place] [phone] [facility] [address] Office Building 2019-09-21 2019-09-21 Office [facility] 1.2.840.114 [id number] Univers 11:04:12 11:34:12 Visit un Health 350.1.13.10 it [place] of [place] [phone] [address] Office Building 2019-09-21 2019-09-21 Outpatient R PAKO LOPEZ [facility] [id number] Univers 10:30:00 10:30:00 ity of [facility] 2019-09-21 2019-09-21 Telephone Pako Lopez 1.2.840.114 [id number] Univers 00:00:00 00:00:00 Shun RAHAT 350.1.13.10 it y of [facility] 4.2.7.2.686 [place] [phone] [address] 2019-09-21 2019-09-21 Telephone Lopez, [facility] 1.2.840.114 [id number] Univers 00:00:00 00:00:00 [facility] 350.1.13.10 it y of [facility] 4.2.7.2.[place] [phone] [address] Office Building 2019-09-18 2019-09-18 Telephone Pako Lopez 1.2.840.114 [id number] Univers 00:00:00 00:00:00 Shun RAHAT 350.1.13.10 it y of [facility] 4.2.7.2.686 [place] [phone] [address] 2019-09-18 2019-09-18 Telephone Pako Lopez KYE 1.2.840.114 [id number] Univers 00:00:00 00:00:00 Shun RAHAT 350.1.13.10 it y of [facility] 4.2.7.2.686 [place] [phone] [address] 2019-09-14 2019-09-14 Office Lopez, [facility] 1.2.840.114 [id number] Univers 09:53:55 10:46:20 Visit [facility] 350.1.13.10 it y of [facility] 4.2.7.2.[place] [phone] [address] Office Building 2019-09-14 2019-09-14 Outpatient R LOPEZ, [facility] [id number] Univers 10:00:00 10:00:00 ity of [facility] 2019-09-14 2019-09-14 Orders Doctor KYE 1.2.840.114 [id number] Univers 00:00:00 00:00:00 Only Unassigned, RAHAT 350.1.13.10 ity of [place] [facility] 4.2.7.2.686 [place] [phone] [address] 2019-09-07 2019-09-07 Outpatient R LOPEZ, WIN [facility] [id number] Univers 08:00:00 08:00:00 ity of [facility] 2019-09-03 2019-09-06 Office Pako Lopez [facility] 1.2.840.114 [id number] Univers 15:04:24 10:34:22 Visit [facility] 350.1.13.10 it y of [place] [phone] [address] Office Building 2019-09-05 2019-09-05 Patient Doctor KYE 1.2.840.114 [id number] Univers 00:00:00 00:00:00 Secure Msg Unassigned, RAHAT 350.1.13.10 ity of [place] [facility] 4.2.7.2.686 [place] [phone] [address] 2019-09-03 2019-09-03 Manager Inventory Management Draw, Clc-Bls Lab [facility] 1.2.8 40.114 [id number] Univers 16:05:21 16:20:21 Visit [facility] 350.1.13 .10 ity of [place] [phone] [address] Office Building 2019-09-03 2019-09-03 Outpatient R [facility] [id number] Univers 15:00:00 15:00:00 ity of [facility] Orders Doctor KYE 1.2.840.114 [id number] Univers 00:00:00 00:00:00 Only Unassigned, RAHAT 350.1.13.10 ity of [place] [facility] 4.2.7.2.686 [place] [phone] [address] Results Test Description Test Time Test Comments Results Result Comments Source Urine Culture 2022-10-05 13:23:50 Test Item Value Reference Range Interpretation Comme nts Final Report (test code = 8488) <10,000 cfu/ml Normal site sapphire A present.Generally of low significance.Correlate with clinical data and culture history. Lab Interpretation (test code = Abnormal 36025-2) [facility] [place] Kasvieg0555-31-58 13:23:50 Test Item Value Reference Range Interpretation Comments Final Report (test code = <10,000 cfu/ml A 8488) Normal site sapphire present.Generally of low significance.Correl ate with clinical data and culture history. Lab Interpretation (test Abnormal code = 08226-0) [facility] Microscopic Exam 2022-10-03 19:25:30 Test Item Value Reference Range Interpretation Comments UA WBC (test code = NOT SEEN See_Comment Some rep orting 97996-6) parameters with in the Urinalysis test have changed due to the implementation of new instrumentation in the [facility], al lowing greater sensiti vity of measurement. Urinalysis resu lts reported by the [facility] enters using existing instrumentation , as well as Urinaly sis testing perform ed manually or by backup methodology at the [facility] maggie l remain relative ly unchanged. New reporting tremaine eters and units will not be reported for [facility]. [Auto mated message] The sy stem which generated this result transmit esteban reference range : 0 - 2 /HPF. The refer ence range was not u sed to interpret this result as normal/abnor mal. UA RBC (test code = See_Comment H [Automa esteban message] 68190-5) The system [employer] generated this result transmitted ref erence range: 0 - 2 /H PF. The reference range was not used to int erpret this result as normal/abnormal . UA Mucous (test code = NOT SEEN Not Seen-Trace 98864-7) /HPF UA Bacteria (test code NOT SEEN NOT SEEN /HPF = 97676-0) UA Squam Epi (test NOT SEEN None-Occasional code = 52872-6) /HPF Lab Interpretation Abnormal (test code = 64839-3) [facility] Microsc[facility] Exam 2022-10-03 19:25:30 Test Item Value Reference Range Interpretation Comments UA WBC (test code = NOT SEEN See_Comment Some rep orting 75512-8) parameters with in the Urinalysis test have changed due to the implementation of new instrumentation in the [facility], al lowing greater sensiti vity of measurement. Urinalysis resu lts reported by the [facility] enters using existing instrumentation , as well as Urinaly sis testing perform ed manually or by backup methodology at the [facility] maggie l remain relative ly unchanged. New reporting tremaine eters and units will not be reported for [facility]. [Auto mated message] The sy stem which generated this result transmit esteban reference range : 0 - 2 /HPF. The refer ence range was not u sed to interpret this result as normal/abnor mal. UA RBC (test code = See_Comment H [Automa esteban message] 13392-1) The system [employer] generated this result transmitted ref erence range: 0 - 2 /H PF. The reference range was not used to int erpret this result as normal/abnormal . UA Mucous (test code = NOT SEEN Not Seen-Trace 10625-4) /HPF UA Bacteria (test code NOT SEEN NOT SEEN /HPF = 38070-9) UA Squam Epi (test NOT SEEN None-Occasional code = 06440-5) /HPF Lab Interpretation Abnormal (test code = 16199-4) [facility] [place] Microscopic Ex[place] 2022-10-03 19:25:30 Test Item Value Reference Range Interpretation Comments UA WBC (test code = NOT SEEN See_Comment Some rep orting 73915-4) parameters with in the Urinalysis test have changed due to the implementation of new instrumentation in the [facility], al lowing greater sensiti vity of measurement. Urinalysis resu lts reported by the [facility] enters using existing instrumentation , as well as Urinaly sis testing perform ed manually or by backup methodology at the [facility] remain relative ly unchanged. New reporting tremaine eters and units will not be reported for [facility]. [Auto mated message] The sy stem which generated this result transmit esteban reference range : 0 - 2 /HPF. The refer ence range was not u sed to interpret this result as normal/abnor mal. UA RBC (test code = See_Comment H [Automa esteban message] 07648-1) The system [employer] generated this result transmitted ref erence range: 0 - 2 /H PF. The reference range was not used to int erpret this result as normal/abnormal . UA Mucous (test code = NOT SEEN Not Seen-Trace 92141-7) /HPF UA Bacteria (test code NOT SEEN NOT SEEN /HPF = 29410-2) UA Squam Epi (test NOT SEEN None-Occasional code = 27757-5) /HPF Lab Interpretation Abnormal (test code = 24147-6) [facility] w/Microscopic if Ajtnkskrg3952-28-47 18:19:57 Test Item Value Reference Range Interpretation Comments UA Color (test code = 68605-3) Audelia Straw-Yellow A UA Appear (test code = 45358-4) Cloudy Clear A UA Glucose (test code [...] A Lab Interpretation (test code = Abnormal 79443-2) [facility] StationUrinalysis w/Microscopic if Mzohydyad8326-34-14 18:19:57 Test Item Value Reference Range Interpretation Comments UA Color (test code = 84501-1) Audelia Straw-Yellow A UA Appear (test code = 23645-7) Cloudy Clear A UA Glucose (test code [...] A Lab Interpretation (test code = Abnormal 93946-3) [facility] Station[facility]inal[facility] w/Microscopic if Viprzzrgq0170-57-86 18:19:57 Test Item Value Reference Range Interpretation Comments UA Color (test code = 85302-8) Audelia Straw-Yellow A UA Appear (test code = 82735-2) Cloudy Clear A UA Glucose (test code [...] A Lab Interpretation (test code = Abnormal 77556-8) [facility] StationLDH2023-07-23 17:57:07 Test Item Value Reference Range Interpretation Comments LDH (test code = 494 U/L 135-225 [place] [address]-9) hemolyzed. Resu lts may be falsely elevated. Repea t test if needed.Resul ts greater than 16 51 U/L may not be reli able due to matrix e ffect with extended dilution as it exceeds the sulfate drier machine operator's recommended simon it. Caution should be exercised when interpreting mcgraw ch values and done in conjunction wit clinical contex t. Lab Interpretation (test Abnormal code = 37057-9) [facility] StationLDH2023-07-23 17:57:07 Test Item Value Reference Range Interpretation Comments LDH (test code = 494 U/L 135-[place] [address]-6) hemolyzed. Resu lts may be falsely elevated. Repea t test if needed.Resul ts greater than 16 51 U/L may not be reli able due to matrix e ffect with extended dilution as it exceeds the sulfate drier machine operator's recommended simon it. Caution should be exercised when interpreting mcgraw ch values and done in conjunction wit clinical contex t. Lab Interpretation (test Abnormal code = 70972-2) [facility] StationLDH2023-07-23 17:57:07 Test Item Value Reference Range Interpretation Comments LDH (test code = 494 U/L 135-[place] [address]-6) hemolyzed. Resu lts may be falsely elevated. Repea t test if needed.Resul ts greater than 16 51 U/L may not be reli able due to matrix e ffect with extended dilution as it exceeds the sulfate drier machine operator's recommended simon it. Caution should be exercised when interpreting mcgraw ch values and done in conjunction wit h clinical contex t. Lab Interpretation (test Abnormal code = 28692-9) [facility] StationFractionated Pxuheermg9404-83-93 17:55:12 Test Item Value Reference Range Interpretation [...] (test 0.6 mg/dL 0.0-0.9 code = 1970-03) [facility] StationFractionated Bxqzdhqvp9406-63-76 17:55:12 Test Item Value Reference Range Interpretation [...] <=0.3 Indocyanin e Green (ICG) code = 1967-) may cause fal sely elevated biliru bin results. Total and direct bilirubin must not be measured from s amples containing indo cyanine green. Bili Indirect (test 0.6 mg/dL 0.0-0.9 code = 1970-03) [facility] StationFractionated Fsidosgug8121-14-02 17:55:12 Test Item Value Reference Range Interpretation [...] (test 0.6 mg/dL 0.0-0.9 code = 1970-03) [facility] StationGlomerular Filtration Rate 2022-10-03 17:55:11 Test Item Value Reference Range Interpretation Comments eGFR (test code = 90 See_Comment The eGFRcr [place] calculated with 18564-1) the 2020 CKD-EP I creatinine equation using [...] CKD. [Automated mess age] The system which Greetz nerated this result transmit esteban reference range: >=60 mL/ min/1.73 sq. m. The referenc e range was not used to int erpret this result as cuate l/abnormal. [facility] StationGlomerular Filtration Rate 2022-10-03 17:55:11 Test Item Value Reference Range Interpretation Comments eGFR (test code = 90 See_Comment The eGFRcr is calculated with 19747-8) the 2020 CKD-EP I creatinine equation using [...] CKD. [Automated mess age] The system which Greetz nerated this result transmit esteban reference range: >=60 mL/ min/1.73 sq. m. The referenc e range was not used to int erpret this result as cuate l/abnormal. [facility] StationGlomerular Filtration Rate 2022-10-03 17:55:11 Test Item Value Reference Range Interpretation Comments eGFR (test code = 90 See_Comment The eGFRcr is calculated with 31204-2) the 2020 CKD-EP I creatinine equation using [...] int erpret this result as cuate l/abnormal. [facility] StationTotal Nugeufj0309-09-61 17:55:10 Test Item Value Reference Range Interpretation Comments Total Protein (test code = 2885-2) 6.8 g/dL 6.4-8.3 [facility] StationTotal Otpljgf7407-32-00 17:55:10 Test Item Value Reference Range Interpretation Comments Total Protein (test code = 2885-2) 6.8 g/dL 6.4-8.3 [facility] StationTotal Hbwkkra0851-37-14 17:55:10 Test Item Value Reference Range Interpretation Comments Total Protein (test code = 2885-2) 6.8 g/dL 6.4-8.3 [facility] StationMagnesium Emxek1483-23-62 17:55:09 Test Item Value Reference Range Interpretation Comments Magnesium (test code = 71897-3) 2.1 mg/dL 1.6-2.6 [facility] StationMagnesium Sjrfs7943-48-85 17:55:09 Test Item Value Reference Range Interpretation Comments Magnesium (test code = 06659-0) 2.1 mg/dL 1.6-2.6 [facility] StationMagnesium Kpmov9159-19-38 17:55:09 Test Item Value Reference Range Interpretation Comments Magnesium (test code = 45253-2) 2.1 mg/dL 1.6-2.6 [facility] StationAlkaline Ougscyuohuq8645-04-73 17:55:08 Test Item Value Reference Range Interpretation Comments Alk Phos (test code = 6768-6) 82 U/L 40-129 [facility] StationAlkaline Jwswdqtiznw4407-63-84 17:55:08 Test Item Value Reference Range Interpretation Comments Alk Phos (test code = 6768-6) 82 U/L 40-129 [facility] StationAlkaline Awqusgygfpg4009-44-45 17:55:08 Test Item Value Reference Range Interpretation Comments Alk Phos (test code = 6768-6) 82 U/L 40-129 [facility] StationALT2023-07-23 17:55:07 Test Item Value Reference Range Interpretation Comments ALT (test code = 1742-6) 10 U/L <=41 [facility] StationALT2023-07-23 17:55:07 Test Item Value Reference Range Interpretation Comments ALT (test code = 1742-6) 10 U/L <=41 [facility] StationALT2023-07-23 17:55:07 Test Item Value Reference Range Interpretation Comments ALT (test code = 1742-6) 10 U/L <=41 [facility].Serum Ukhaotcphq6773-76-50 17:55:06 Test Item Value Reference Range Interpretation Comments Creatinine (test code = 2160-0) 0.78 mg/dL 0.67-1.17 [facility].Serum Tsvswudord8441-95-24 17:55:06 Test Item Value Reference Range Interpretation Comments Creatinine (test code = 2160-0) 0.78 mg/dL 0.67-1.17 [facility].Serum Pwrynbanxl6931-21-92 17:55:06 Test Item Value Reference Range Interpretation Comments Creatinine (test code = 2160-0) 0.78 mg/dL 0.67-1.17 [facility] StationBUN2023-07-23 17:55:05 Test Item Value Reference Range Interpretation Comments BUN (test code = 3094-0) 13 mg/dL - [facility] StationBUN2023-07-23 17:55:05 Test Item Value Reference Range Interpretation Comments BUN (test code = 3094-0) 13 mg/dL 09-03 [facility] StationBUN2023-07-23 17:55:05 Test Item Value Reference Range Interpretation Comments BUN (test code = 3094-0) 13 mg/dL 09-03 [facility] StationElectrolyte Axfzq5322-57-88 17:55:04 Test Item Value Reference Range Interpretation [...] to interpret this result as normal/abnormal . [facility] StationElectrolyte Vkxgu5747-83-66 17:55:04 Test Item Value Reference Range Interpretation [...] to interpret this result as normal/abnormal . [facility] [place]Electro[place]te Lybas3811-48-87 17:55:04 Test Item Value Reference Range Interpretation [...] = 10 See_Comment [Aut omated message] The 06000-5) system which ge nerated this result tra nsmitted reference range : 4 - 14 mEq/L. The refe rence range was not u sed to interpret this result as normal/abnormal . [facility] StationPhosphorus Cdhhy2627-53-73 17:55:02 Test Item Value Reference Range Interpretation Comments Phosphorus (test code = 2777-1) 3.1 mg/dL 2.5-4.5 [facility] StationPhosphorus Kvcpe6906-02-70 17:55:02 Test Item Value Reference Range Interpretation Comments Phosphorus (test code = 2777-1) 3.1 mg/dL 2.5-4.5 [facility] StationPhosphorus Vdgnh3622-09-72 17:55:02 Test Item Value Reference Range Interpretation Comments Phosphorus (test code = 2777-1) 3.1 mg/dL 2.5-4.5 [facility] StationCalcium Cdifx3885-69-78 17:55:01 Test Item Value Reference Range Interpretation Comments Calcium Lvl (test code = 36757-4) 9.1 mg/dL 8.4-10.2 [facility] StationCalcium Dcsnr7791-15-48 17:55:01 Test Item Value Reference Range Interpretation Comments Calcium Lvl (test code = 17446-2) 9.1 mg/dL 8.4-10.2 [facility] StationCalcium Ppjkj9793-72-55 17:55:01 Test Item Value Reference Range Interpretation Comments Calcium Lvl (test code = 81666-0) 9.1 mg/dL 8.4-10.2 [facility] StationAlbumin Krlzm3799-45-16 17:55:00 Test Item Value Reference Range Interpretation Comments Albumin Lvl (test code 4.2 See_Comment [Aut omated message] The = 6810-7) system which ge nerated this result tra nsmitted reference range : 3.5 - 5.2 gm/dL. The refe rence range was not used to interpret this result as normal/abnormal . [facility] StationAlbumin Upkjx1555-82-42 17:55:00 Test Item Value Reference Range Interpretation Comments Albumin Lvl (test code 4.2 See_Comment [Aut omated message] The = 1750-09) system which ge nerated this result tra nsmitted reference range : 3.5 - 5.2 gm/dL. The refe rence range was not used to interpret this result as normal/abnormal . [facility] StationAlbumin Yccry3891-18-49 17:55:00 Test Item Value Reference Range Interpretation Comments Albumin Lvl (test code 4.2 See_Comment [Aut omated message] The = 1750-09) system which ge nerated this result tra nsmitted reference range : 3.5 - 5.2 gm/dL. The refe rence range was not used to interpret this result as normal/abnormal . [facility] StationAspartate Aminotransferase 2022-10-03 17:54:59 Test Item Value Reference Range Interpretation Comments AST (test code = 1920-8) 17 U/L <=40 [facility] StationAspartate Aminotransferase 2022-10-03 17:54:59 Test Item Value Reference Range Interpretation Comments AST (test code = 1920-8) 17 U/L <=40 [facility] StationAspartate Aminotransferase 2022-10-03 17:54:59 Test Item Value Reference Range Interpretation Comments AST (test code = 1920-8) 17 U/L <=40 [facility] StationGlucose [id number] 17:54:57 Test Item Value Reference Range Interpretation Comments Glucose Level (test 90 mg/dL 70-99 Effectiv e 10/08/15, the code = 2345-7) glucose refer ence intervals have been updated based o n [place] [employer] narda delines (Standards of M edical Care in Diabete s 2016. Diabetes Care 2 016; 39: S13-S22).Fastin g blood glucose:Normal: 70-99 mg/dLImpaired f asting glucose (increa sed risk for diabetes or pre-diabetes): 100-125 mg/dLDiabetes m ellitus: >/=126 mg/dL Ra ndom blood glucose:N ormal: 70-199 mg/dLNot e: Random glucose >100 mg /dL is associated with increased risk for diabetes [facility] StationGlucose Jwsfv9584-72-49 17:54:57 Test Item Value Reference Range Interpretation Comments Glucose Level (test 90 mg/dL 70-99 Effectiv e 10/08/15, the code = 2345-7) glucose refer ence intervals have been updated based o n [place] [employer] narda delines (Standards of edical Care in Diabete s 2016. Diabetes Care 2 016; 39: S13-S22).Fastin g blood glucose:Normal: 70-99 mg/dLImpaired f asting glucose (increa sed risk for diabetes or pre-diabetes): 100-125 mg/dLDiabetes m ellitus: >/=126 mg/dL Ra ndom blood glucose:N ormal: 70-199 mg/dLNot e: Random glucose >100 mg /dL is associated with increased risk for diabetes [facility] StationGlucose [id number] 17:54:57 Test Item Value Reference Range Interpretation Comments Glucose Level (test 90 mg/dL 70-99 Effectiv e 10/08/15, the code = 2345-7) glucose refer ence intervals have been updated based o n [place] [employer] narda delines (Standards of edical Care in Diabete s 2016. Diabetes Care 2 016; 39: S13-S22).Fastin g blood glucose:Normal: 70-99 mg/dLImpaired f asting glucose (increa sed risk for diabetes or pre-diabetes): 100-125 mg/dLDiabetes m ellitus: >/=126 mg/dL Ra ndom blood glucose:N ormal: 70-199 mg/dLNot e: Random glucose >100 mg /dL is associated with increased risk for diabetes [facility] StationaPTT2023-07-23 17:53:30 Test Item Value Reference Range Interpretation Comments aPTT (test code = 31.7 See_Comment [Automate d message] The 05653-0) system which ge nerated this result transmit esteban reference range : 24.1 - 35.5 second(s). The reference range was not used to interpr et this result as cuate l/abnormal. [facility] StationaPTT2023-07-23 17:53:30 Test Item Value Reference Range Interpretation Comments aPTT (test code = 31.7 See_Comment [Automate d message] The 10078-0) system which ge nerated this result transmit esteban reference range : 24.1 - 35.5 second(s). The reference range was not used to interpr et this result as cuate l/abnormal. [facility] Stationa[facility]2023-07-23 17:53:30 Test Item Value Reference Range Interpretation Comments aPTT (test code = 31.7 See_Comment [Automate d message] The 83970-0) system which ge nerated this result transmit esteban reference range : 24.1 - 35.5 second(s). The reference range was not used to interpr et this result as cuate l/abnormal. [facility] StationProthrombin Time with [id number] 17:53:29 Test Item Value Reference Range Interpretation Comments PT (test code = 13.7 See_Comment [Automated message] The 5902-2) system which ge nerated this result transmit esteban reference range : 11.9 - 14.5 second(s). The reference range was not used to interpr et this result as cuate l/abnormal. INR (test code = 1.06 0.87-1.12 6301-6) [facility] StationProthrombin Time with [id number] 17:53:29 Test Item Value Reference Range Interpretation Comments PT (test code = 13.7 See_Comment [Automated message] The 590-2) system which ge nerated this result transmit esteban reference range : 11.9 - 14.5 second(s). The reference range was not used to interpr et this result as cuate l/abnormal. INR (test code = 1.06 0.87-1.12 6301-6) [facility] StationProthrombin Time with [id number] 17:53:29 Test Item Value Reference Range Interpretation Comments PT (test code = 13.7 See_Comment [Automated message] The 5902-2) system which ge nerated this result transmit esteban reference range : 11.9 - 14.5 second(s). The reference range was not used to interpr et this result as cuate l/abnormal. INR (test code = 1.06 0.87-1.12 6301-6) [facility] StationDifferential2023-07-23 17:27:39 Test Item Value Reference Range Interpretation [...] 0.01-0.12 Lab Interpretation (test Abnormal code = 04099-2) [facility] StationDifferential2023-07-23 17:27:39 Test Item Value Reference Range Interpretation [...] 0.01-0.12 Lab Interpretation (test Abnormal code = 49981-1) [facility] StationDifferential2023-07-23 17:27:39 Test Item Value Reference Range Interpretation [...] 0.01-0.12 Lab Interpretation (test Abnormal code = 12252-4) [facility].[id number] 17:27:26 Test Item Value Reference Range Interpretation Comments WBC (test code = 8034) 6.0 K/uL 4.1-10.5 RBC (test code = 6932) 4.48 See_Comment [Aut omated message] The system [employer] generated this result transmitted ref erence range: 4.30 - 6 .04 M/uL. The refer ence range was not u sed to interpret this result as normal/abnor mal. Hgb (test code = 5898) 13.1 See_Comment L [Aut omated message] The system [employer] generated this result transmitted ref erence range: 13.3 - 1 7.4 gm/dL. The refe rence range was not u sed to interpret this result as normal/abnor mal. Hct (test code = 5860) 40.4 % 39.5-51.8 MCV (test code = 6222) 90 fL 82-99 MCH (test code = 6220) 29.2 pg 26.6-33.2 MCHC (test code = 6221) 32.4 See_Comment [Au tomated message] The system [employer] generated this result transmitted ref erence range: [...] cell differential. [Automated mess age] The system [employer] generated this result transmitted ref erence range: 0.0 - 0. 1 /100 WBC. The refere nce range was not u sed to interpret this result as normal/abnor mal. Lab Interpretation Abnormal (test code = 06198-2) [facility] [place].[id number] 17:27:26 Test Item Value Reference Range Interpretation Comments WBC (test code = 8034) 6.0 K/uL 4.1-10.5 RBC (test code = 6932) 4.48 See_Comment [Aut omated message] The system [employer] generated this result transmitted ref erence range: 4.30 - 6 .04 M/uL. The refer ence range was not u sed to interpret this result as normal/abnor mal. Hgb (test code = 5898) 13.1 See_Comment L [Aut omated message] The system [employer] generated this result transmitted ref erence range: 13.3 - 1 7.4 gm/dL. The refe rence range was not u sed to interpret this result as normal/abnor mal. Hct (test code = 5860) 40.4 % 39.5-51.8 MCV (test code = 6222) 90 fL 82-99 MCH (test code = 6220) 29.2 pg 26.6-33.2 MCHC (test code = 6221) 32.4 See_Comment [Au tomated message] The system [employer] generated this result transmitted ref erence range: [...] cell differential. [Automated mess age] The system [employer] generated this result transmitted ref erence range: 0.0 - 0. 1 /100 WBC. The refere nce range was not u sed to interpret this result as normal/abnor mal. Lab Interpretation Abnormal (test code = 20535-5) [facility] [place].[id number] 17:27:26 Test Item Value Reference Range Interpretation Comments WBC (test code = 8034) 6.0 K/uL 4.1-10.5 RBC (test code = 6932) 4.48 See_Comment [Aut omated message] The system [employer] generated this result transmitted ref erence range: 4.30 - 6 .04 M/uL. The refer ence range was not u sed to interpret this result as normal/abnor mal. Hgb (test code = 5898) 13.1 See_Comment L [Aut omated message] The system [employer] generated this result transmitted ref erence range: 13.3 - 1 7.4 gm/dL. The refe rence range was not u sed to interpret this result as normal/abnor mal. Hct (test code = 5860) 40.4 % 39.5-51.8 MCV (test code = 6222) 90 fL 82-99 MCH (test code = 6220) 29.2 pg 26.6-33.2 MCHC (test code = 6221) 32.4 See_Comment [Au tomated message] The system [employer] generated this result transmitted ref erence range: [...] cell differential. [Automated mess age] The system [employer] generated this result transmitted ref erence range: 0.0 - 0. 1 /100 WBC. The refere nce range was not u sed to interpret this result as normal/abnor mal. Lab Interpretation Abnormal (test code = 02457-6) [facility] [place]TSH, THIRD [id number] 10:24:25 Test Item Value Reference Range Interpretation Comments TSH, THIRD 0.921 UIU/ML 0.400-4.100 UNLESS OTHERWI SE GENERATION (test INDICATED, ALL TESTING code = 2821) PERFORMED [facility], [facility]. [address] [place] [place] [id number] [place] [address] DIRECTOR: RENETTA GOLDMAN M.D. CLIA NUMBER [id number] CAP ACCREDITATION N O. [id number] COMPREHENSIVE METABOLIC [id number] 06:52:03 Test Item Value Reference Range Interpretation Comments GLUCOSE (test code = 99 MG/DL 70-99 2216) BUN (test code = 19 MG/DL 8-23 2207) CREATININE (test 0.80 MG/DL 0.80-1.40 code = 2214) eGFR (2020 CKD-EPI) 89 ML/MIN/1.73 >60 (test code = 95333) CALC BUN/CREAT (test 24 RATIO 6-28 code = 2235) SODIUM (test code = 143 MEQ/L 773-905 1502) POTASSIUM (test code 4.1 MEQ/L 3.5-5.4 = 2228) CHLORIDE (test code 103 MEQ/L 95-107 = 2215) CARBON DIOXIDE (test 26 MEQ/L 19-31 code = 2206) CALCIUM (test code = [...] PHOSPHATASE 110 U/L 40-125 (test code = 4) AST (test code = 16 U/L 50 2217) ALT (test code = 14 U/L 50 2218) LIPID [id number] 06:52:03 Test Item Value Reference Range Interpretation Comments CHOLESTEROL (test 120 MG/DL <200 code = 2210) TRIGLYCERIDES (test 67 MG/DL <150 code = 2232) HDL CHOLESTEROL (test 63 MG/DL >39 code = 2220) CALC LDL CHOL (test 43 MG/DL <100 NOTE: C ALCULATED LDL code = 2237) IS BASED ON CORKY-PATLE METHOD WHICHINCLUDES ADJUSTABLE TRIGLYCERIDE:VL DL CHOLESTEROL RAT IO.THIS FACTOR VARIES B Y MEASURED TRIGLY CERIDE AND NON-HDLCHOL ESTEROL CONCENTRATIONS WITH INCREASED CALCU LATED LDL SEENIN HIGH ER TRIGLYCERIDE OR LOWER NON-HDL SPECIME NS. FOR MOREINFORMATION , SEE CLIENT ANNOUNCE MENT AT [email or web address] RISK RATIO LDL/HDL 0.68 RATIO <3.55 (test code = 2237) HEMOGLOBIN [id number] 04:00:23 Test Item Value Reference Range Interpretation Comments HEMOGLOBIN A1c (test code = 86213) 5.6 % 4.2-5.6 CBC W/AUTO DIFF WITH [id number] 02:24:38 Test Item Value Reference Range Interpretation [...] RBCS 0.00 K/UL 0.00-0.11 (test code = 05874) TSH, THIRD [id number] 00:00:00 Test Item Value Reference Range Interpretation Comments TSH, THIRD GENERATION (test code 0.921 UIU/ML = 2821) HEMOGLOBIN [id number] 00:00:00 Test Item Value Reference Range Interpretation Comments HEMOGLOBIN A1c (test code = 14210) 5.6 % HEMOGLOBIN [id number] 00:00:00 Test Item Value Reference Range Interpretation Comments HEMOGLOBIN A1c (test code = 21876) 5.6 % HEMOGLOBIN [id number] 00:00:00 Test Item Value Reference Range Interpretation Comments HEMOGLOBIN A1c (test code = 48852) 5.6 % COMPREHENSIVE METABOLIC [id number] 00:00:00 Test Item Value Reference Range Interpretation Comments GLUCOSE (test code = 2217) 99 MG/DL BUN (test code = 2208) 19 MG/DL CREATININE (test code = 2214) 0.80 MG/DL eGFR (2020 CKD-EPI) (test code 89 ML/MIN/1.73 = 96435) CALC BUN/CREAT (test code = 24 RATIO [...] code = 2219) 14 U/L COMPREHENSIVE METABOLIC [id number] 00:00:00 Test Item Value Reference Range Interpretation Comments GLUCOSE (test code = 2217) 99 MG/DL BUN (test code = 2208) 19 MG/DL CREATININE (test code = 2214) 0.80 MG/DL eGFR (2020 CKD-EPI) (test code 89 ML/MIN/1.73 = 57880) CALC BUN/CREAT (test code = 24 RATIO [...] code = 2219) 14 U/L CBC W/AUTO [id number] 00:00:00 Test Item Value Reference Range Interpretation [...] NUCLEATED RBCS (test code = 0.00 K/UL 22599) CBC W/AUTO [id number] 00:00:00 Test Item Value Reference Range Interpretation [...] NUCLEATED RBCS (test code = 0.00 K/UL 14810) CBC W/AUTO [id number] 00:00:00 Test Item Value Reference Range Interpretation [...] NUCLEATED RBCS (test code = 0.00 K/UL 46695) LIPID [id number] 00:00:00 Test Item Value Reference Range Interpretation Comments CHOLESTEROL (test code = 2210) 120 MG/DL TRIGLYCERIDES (test code = 2232) 67 MG/DL HDL CHOLESTEROL (test code = 2220) 63 MG/DL CALC LDL CHOL (test code = 2237) 43 MG/DL RISK RATIO LDL/HDL (test code = 0.68 RATIO 2238) LIPID [id number] 00:00:00 Test Item Value Reference Range Interpretation Comments CHOLESTEROL (test code = 2210) 120 MG/DL TRIGLYCERIDES (test code = 2232) 67 MG/DL HDL CHOLESTEROL (test code = 2220) 63 MG/DL CALC LDL CHOL (test code = 2237) 43 MG/DL RISK RATIO LDL/HDL (test code = 0.68 RATIO 2238) TSH, THIRD [id number] 00:00:00 Test Item Value Reference Range Interpretation Comments TSH, THIRD GENERATION (test code 0.921 UIU/ML = 2821) TSH, THIRD [id number] 00:00:00 Test Item Value Reference Range Interpretation Comments TSH, THIRD GENERATION (test code 0.921 UIU/ML = 2821) TSH, THIRD [id number] 00:00:00 Test Item Value Reference Range Interpretation Comments TSH, THIRD GENERATION (test code 0.921 UIU/ML = 2821) HEMOGLOBIN [id number] 00:00:00 Test Item Value Reference Range Interpretation Comments HEMOGLOBIN A1c (test code = 63298) 5.6 % HEMOGLOBIN [id number] 00:00:00 Test Item Value Reference Range Interpretation Comments HEMOGLOBIN A1c (test code = 57542) 5.6 % HEMOGLOBIN [id number] 00:00:00 Test Item Value Reference Range Interpretation Comments HEMOGLOBIN A1c (test code = 19709) 5.6 % COMPREHENSIVE METABOLIC [id number] 00:00:00 Test Item Value Reference Range Interpretation Comments GLUCOSE (test code = 2217) 99 MG/DL BUN (test code = 2208) 19 MG/DL CREATININE (test code = 2214) 0.80 MG/DL eGFR (2020 CKD-EPI) (test code 89 ML/MIN/1.73 = 72740) CALC BUN/CREAT (test code = 24 RATIO [...] code = 2219) 14 U/L COMPREHENSIVE METABOLIC [id number] 00:00:00 Test Item Value Reference Range Interpretation Comments GLUCOSE (test code = 2217) 99 MG/DL BUN (test code = 2208) 19 MG/DL CREATININE (test code = 2214) 0.80 MG/DL eGFR (2020 CKD-EPI) (test code 89 ML/MIN/1.73 = 40770) CALC BUN/CREAT (test code = 24 RATIO [...] code = 2219) 14 U/L CBC W/AUTO [id number] 00:00:00 Test Item Value Reference Range Interpretation [...] NUCLEATED RBCS (test code = 0.00 K/UL 01781) CBC W/AUTO [id number] 00:00:00 Test Item Value Reference Range Interpretation [...] NUCLEATED RBCS (test code = 0.00 K/UL 32962) CBC W/AUTO [id number] 00:00:00 Test Item Value Reference Range Interpretation [...] NUCLEATED RBCS (test code = 0.00 K/UL 07402) LIPID [id number] 00:00:00 Test Item Value Reference Range Interpretation Comments CHOLESTEROL (test code = 2210) 120 MG/DL TRIGLYCERIDES (test code = 2232) 67 MG/DL HDL CHOLESTEROL (test code = 2220) 63 MG/DL CALC LDL CHOL (test code = 2237) 43 MG/DL RISK RATIO LDL/HDL (test code = 0.68 RATIO 2238) LIPID [id number] 00:00:00 Test Item Value Reference Range Interpretation Comments CHOLESTEROL (test code = 2210) 120 MG/DL TRIGLYCERIDES (test code = 2232) 67 MG/DL HDL CHOLESTEROL (test code = 2220) 63 MG/DL CALC LDL CHOL (test code = 2237) 43 MG/DL RISK RATIO LDL/HDL (test code = 0.68 RATIO 2238) TSH, THIRD [id number] 00:00:00 Test Item Value Reference Range Interpretation Comments TSH, THIRD GENERATION (test code 0.921 UIU/ML = 2821) TSH, THIRD [id number] 00:00:00 Test Item Value Reference Range Interpretation Comments TSH, THIRD GENERATION (test code 0.921 UIU/ML = 2821) Troponin T (In-House)2021-05-26 09:07:11 Test Item Value Reference Range Interpretation Comments Troponin T (test code = 79 ng/L See_Comment A < 19 ng/L Suggest 41603-1) retest at 3 to 6 hours later [...] res ults. [Automated mess age] The system [employer] generated this result transmitted ref erence range: <=18. Th e reference range was not used to int erpret this result as normal/abnormal . Lab Interpretation Abnormal (test code = 33784-9) [facility] [place]2021-05-26 09:07:11 Test Item Value Reference Range Interpretation Comments Troponin T (test code = 79 ng/L See_Comment A < 19 ng/L Suggest 19618-2) retest at 3 to 6 hours later [...] res ults. [Automated mess age] The system [employer] generated this result transmitted ref erence range: <=18. Th e reference range was not used to int erpret this result as normal/abnormal . Lab Interpretation Abnormal (test code = 02543-3) [facility]2021-05-26 09:07:11 Test Item Value Reference Range Interpretation Comments Troponin T (test code = 79 ng/L See_Comment A < 19 ng/L Suggest 76504-1) retest at 3 to 6 hours later [...] res ults. [Automated mess age] The system [employer] generated this result transmitted ref erence range: <=18. Th e reference range was not used to int erpret this result as normal/abnormal . Lab Interpretation Abnormal (test code = 15241-8) [facility] ([facility])2021-05-26 09:07:11 Test Item Value Reference Range Interpretation Comments Troponin T (test code = 79 ng/L See_Comment A < 19 ng/L Suggest 18995-3) retest at 3 to 6 hours later [...] res ults. [Automated mess age] The system [employer] generated this result transmitted ref erence range: <=18. Th e reference range was not used to int erpret this result as normal/abnormal . Lab Interpretation Abnormal (test code = 97485-6) [facility]2021-05-26 09:07:11 Test Item Value Reference Range Interpretation Comments Troponin T (test code = 79 ng/L See_Comment A < 19 ng/L Suggest 65324-4) retest at 3 to 6 hours later [...] res ults. [Automated mess age] The system [employer] generated this result transmitted ref erence range: <=18. Th e reference range was not used to int erpret this result as normal/abnormal . Lab Interpretation Abnormal (test code = 74360-1) [facility]2021-05-26 09:07:11 Test Item Value Reference Range Interpretation Comments Troponin T (test code = 79 ng/L See_Comment A < 19 ng/L Suggest 60608-7) retest at 3 to 6 hours later [...] a nd falsely low res ults. [Automated MD [employer] age] The system [employer] generated this result transmitted ref erence range: <=18. Th e reference range was not used to int erpret this result as normal/abnormal . Lab Interpretation Abnormal (test code = 27397-3) [facility]2021-05-26 09:07:11 Test Item Value Reference Range Interpretation Comments Troponin T (test code = 79 ng/L See_Comment A < 19 ng/L Suggest 18070-0) retest at 3 to 6 hours later [...] res ults. [Automated mess age] The system [employer] generated this result transmitted ref erence range: <=18. Th e reference range was not used to int erpret this result as normal/abnormal . Lab Interpretation Abnormal (test code = 11183-1) [facility] StationTestosterone [id number] 11:02:26 Test Item Value Reference Range Interpretation Comments Testoster Tot (test 313 ng/dL 193-740 Referenc e Ranges: code = 2986-8) Male: Age 20 - 49 249 - 836 Age >=50 193 - 740 Female: Age 20 - 49 8 - 48 Age & gt;=50 3 - 41 [facility] StationTest[facility] [id number] 11:02:26 Test Item Value Reference Range Interpretation Comments Testoster Tot (test 313 ng/dL 193-740 Referenc e Ranges: code = 2986-8) Male: Age 20 - 49 249 - 836 Age >=50 193 - 740 Female: Age 20 - 49 8 - 48 Age & gt;=50 3 - 41 [facility] StationTest[facility] [id number] 11:02:26 Test Item Value Reference Range Interpretation Comments Testoster Tot (test 313 ng/dL 193-740 Referenc e Ranges: code = 2986-8) Male: Age 20 - 49 249 - 836 Age >=50 193 - 740 Female: Age 20 - 49 8 - 48 Age & gt;=50 3 - 41 [facility] StationTest[facility] [id number] 11:02:26 Test Item Value Reference Range Interpretation Comments Testoster Tot (test 313 ng/dL 193-740 Referenc e Ranges: code = 2986-8) Male: Age 20 - 49 249 - 836 Age >=50 193 - 740 Female: Age 20 - 49 8 - 48 Age & gt;=50 3 - 41 [facility] StationTest[facility] [id number] 11:02:26 Test Item Value Reference Range Interpretation Comments Testoster Tot (test 313 ng/dL 193-740 Referenc e Ranges: code = 2986-8) Male: Age 20 - 49 249 - 836 Age >=50 193 - 740 Female: Age 20 - 49 8 - 48 Age & gt;=50 3 - 41 [facility] StationTestosterone [id number] 11:02:26 Test Item Value Reference Range Interpretation Comments Testoster Tot (test 313 ng/dL 193-740 Referenc e Ranges: code = 2986-8) Male: Age 20 - 49 249 - 836 Age >=50 193 - 740 Female: Age 20 - 49 8 - 48 Age & gt;=50 3 - 41 [facility] StationTest[facility] [id number] 11:02:26 Test Item Value Reference Range Interpretation Comments Testoster Tot (test 313 ng/dL 193-740 Referenc e Ranges: code = 2986-8) Male: Age 20 - 49 249 - 836 Age >=50 193 - 740 Female: Age 20 - 49 8 - 48 Age >=50 3 - 41 [facility] StationProstate Specific Antigen (PSA) [id number] 11:02:24 Test Item Value Reference Range Interpretation Comments PSA (test code = 0.2 ng/mL 0.0-4.0 Results gre ater than 2857-1) 4519 ng/mL may not be reliable due to matrix effect with ext ended dilution as it exceeds the manufacture r's recommended simon it. Caution should be exercised when interpreting mcgraw ch values and done in conjunction [facility] clinical contex t. PSA Indication (test Diagnostic code = 9395) [facility] StationProstate Specific Antigen (PSA) [id number] 11:02:24 Test Item Value Reference Range Interpretation Comments PSA (test code = 0.2 ng/mL 0.0-4.0 Results gre ater than 2857-1) 4519 ng/mL may not be reliable due to matrix effect with ext ended dilution as it exceeds the manufacture r's recommended simon it. Caution should be exercised when interpreting mcgraw ch values and done in conjunction [facility] clinical [employer] t. PSA Indication (test Diagnostic code = 9395) [facility] StationProstate Specific Antigen (PSA) [id number] 11:02:24 Test Item Value Reference Range Interpretation Comments PSA (test code = 0.2 ng/mL 0.0-4.0 Results gre ater than 2857-1) 4519 ng/mL may not be reliable due to matrix effect with ext ended dilution as it exceeds the manufacture r's recommended simon it. Caution should be exercised when interpreting mcgraw ch values and done in conjunction [facility] clinical contex t. PSA Indication (test Diagnostic code = 9395) [facility] StationProstate Specific Antigen (PSA) [id number] 11:02:24 Test Item Value Reference Range Interpretation Comments PSA (test code = 0.2 ng/mL 0.0-4.0 Results gre ater than 2857-1) 4519 ng/mL may not be reliable due to matrix effect with ext ended dilution as it exceeds the manufacture r's recommended simon it. Caution should be exercised when interpreting mcgraw ch values and done in conjunction [facility]. PSA Indication (test Diagnostic code = 9395) [facility] StationProstate Specific Antigen (PSA) [id number] 11:02:24 Test Item Value Reference Range Interpretation Comments PSA (test code = 0.2 ng/mL 0.0-4.0 Results gre ater than 2857-1) 4519 ng/mL may not be reliable due to matrix effect with ext ended dilution as it exceeds the manufacture r's recommended simon it. Caution should be exercised when interpreting mcgraw ch values and done [facility]. PSA Indication (test Diagnostic code = 9395) [facility] StationProstate Specific Antigen (PSA) [id number] 11:02:24 Test Item Value Reference Range Interpretation Comments PSA (test code = 0.2 ng/mL 0.0-4.0 Results gre ater than 2857-1) 4519 ng/mL may not be reliable due to matrix effect with ext ended dilution as it exceeds the manufacture r's recommended simon it. Caution should be exercised when interpreting mcgraw ch values and done in conjunction [facility]. PSA Indication (test Diagnostic code = 9395) [facility] StationProstate Specific Antigen (PSA) [id number] 11:02:24 Test Item Value Reference Range Interpretation Comments PSA (test code = 0.2 ng/mL 0.0-4.0 Results gre ater than 2857-1) 4519 ng/mL may not be reliable due to matrix effect with ext ended dilution as it exceeds the manufacture r's recommended simon it. Caution should be exercised when interpreting mcgraw ch values and done in conjunction [facility] clinical contex t. PSA Indication (test Diagnostic code = 9395) [facility] 19:56:03 Test Item Value Reference Range Interpretation Comments ABORh. (test code = 882-1) O POS [facility]-13 19:56:03 Test Item Value Reference Range Interpretation Comments ABORh. (test code = 882-1) O POS [facility]-13 19:56:03 Test Item Value Reference Range Interpretation Comments ABORh. (test code = 882-1) O POS [facility]-13 19:56:03 Test Item Value Reference Range Interpretation Comments ABORh. (test code = 882-1) O POS [facility]-13 19:56:03 Test Item Value Reference Range Interpretation Comments ABORh. (test code = 882-1) O POS [facility]2022-03-13 19:56:03 Test Item Value Reference Range Interpretation Comments ABORh. (test code = 882-1) O POS [facility]13 19:56:03 Test Item Value Reference Range Interpretation Comments ABORh. (test code = 882-1) O POS [facility] StationClot Expiration [id number] 19:55:59 Test Item Value Reference Range Interpretation Comments T & S Expiration (test code = 05/27/2021 53) [facility] Station[facility] Expiration [id number] 19:55:59 Test Item Value Reference Range Interpretation Comments T & S Expiration (test code = 05/27/20215317) [facility] Station[facility] Expiration [id number] 19:55:59 Test Item Value Reference Range Interpretation Comments T & S Expiration (test code = 05/27/2021 53) [facility] Station[facility] Expiration [id number] 19:55:59 Test Item Value Reference Range Interpretation Comments T & S Expiration (test code = 05/27/2021 53) [facility] StationCl[facility] Expiration [id number] 19:55:59 Test Item Value Reference Range Interpretation Comments T & S Expiration (test code = 05/27/20215317) [facility] Station[facility] Expiration [id number] 19:55:59 Test Item Value Reference Range Interpretation Comments T & S Expiration (test code = 05/27/20215317) [facility] StationCl[facility] Expiration [id number] 19:55:59 Test Item Value Reference Range Interpretation Comments T & S Expiration (test code = 05/27/20215317) [facility] StationaPTT2022-03-13 18:46:29 Test Item Value Reference Range Interpretation Comments aPTT (test code = 34.8 See_Comment [Automate d message] The 20001-3) system which ge nerated this result transmit esteban reference range : 24.7 - 36.8 second(s). The reference range was not used to interpr et this result as cuate l/abnormal. [place] 68438022-03-13 18:46:29 Test Item Value Reference Range Interpretation Comments aPTT (test code = 34.8 See_Comment [Automate d message] The 90827-5) system which ge nerated this result transmit esteban reference range : 24.7 - 36.8 second(s). The reference range was not used to interpr et this result as cuate l/abnormal. [facility] 18:46:29 Test Item Value Reference Range Interpretation Comments aPTT (test code = 34.8 See_Comment [Automate d message] The 30789-8) system which ge nerated this result transmit esteban reference range : 24.7 - 36.8 second(s). The reference range was not used to interpr et this result as cuate l/abnormal. [facility]13 18:46:29 Test Item Value Reference Range Interpretation Comments aPTT (test code = 34.8 See_Comment [Automate d message] The 19732-9) system which ge nerated this result transmit esteban reference range : 24.7 - 36.8 second(s). The reference range was not used to interpr et this result as cuate l/abnormal. [facility] 18:46:29 Test Item Value Reference Range Interpretation Comments aPTT (test code = 34.8 See_Comment [Automate d message] The 12606-1) system which ge nerated this result transmit esteban reference range : 24.7 - 36.8 second(s). The reference range was not used to interpr et this result as cuate l/abnormal. [facility] Station[facility]-13 18:46:29 Test Item Value Reference Range Interpretation Comments aPTT (test code = 34.8 See_Comment [Automate d message] The 50245-7) system which ge nerated this result transmit esteban reference range : 24.7 - 36.8 second(s). The reference range was not used to interpr et this result as cuate l/abnormal. [facility] StationaPTT[facility]22-[facility]-13 18:46:29 Test Item Value Reference Range Interpretation Comments aPTT (test code = 34.8 See_Comment [Automate d message] The 42717-7) system which ge nerated this result transmit esteban reference range : 24.7 - 36.8 second(s). The reference range was not used to interpr et this result as cuate l/abnormal. [facility] StationProthrombin [id number] 18:46:28 Test Item Value Reference Range Interpretation Comments PT (test code = 5902-2) 15.5 See_Comment H [Au tomated message] The system [employer] generated this result transmitted ref erence range: 11.5 - 1 3.9 second(s). The reference range was not used to int erpret this result as normal/abnormal . INR (test code = 6301-6) 1.31 0.90-1.10 H Lab Interpretation (test Abnormal code = 25280-1) [facility] StationProthrombin [id number] 18:46:28 Test Item Value Reference Range Interpretation Comments PT (test code = 5902-2) 15.5 See_Comment H [Au tomated message] The system [employer] generated this result transmitted ref erence range: 11.5 - 1 3.9 second(s). The reference range was not used to int erpret this result as normal/abnormal . INR (test code = 6301-6) 1.31 0.90-1.10 H Lab Interpretation (test Abnormal code = 22050-8) [facility] StationProthrombin [id number] 18:46:28 Test Item Value Reference Range Interpretation Comments PT (test code = 5902-2) 15.5 See_Comment H [Au tomated message] The system [employer] generated this result transmitted ref erence range: 11.5 - 1 3.9 second(s). The reference range was not used to int erpret this result as normal/abnormal . INR (test code = 6301-6) 1.31 0.90-1.10 H Lab Interpretation (test Abnormal code = 65204-6) [facility] StationProthrombmi [id number] 18:46:28 Test Item Value Reference Range Interpretation Comments PT (test code = 5902-2) 15.5 See_Comment H [Au tomated message] The system [employer] generated this result transmitted ref erence range: 11.5 - 1 3.9 second(s). The reference range was not used to int erpret this result as normal/abnormal . INR (test code = 6301-6) 1.31 0.90-1.10 H Lab Interpretation (test Abnormal code = 87243-7) [facility] StationProthrombin [id number] 18:46:28 Test Item Value Reference Range Interpretation Comments PT (test code = 5902-2) 15.5 See_Comment H [Au tomated message] The system [employer] generated this result transmitted ref erence range: 11.5 - 1 3.9 second(s). The reference range was not used to int erpret this result as normal/abnormal . INR (test code = 6301-6) 1.31 0.90-1.10 H Lab Interpretation (test Abnormal code = 35270-4) [facility] StationProthrom[facility] [id number] 18:46:28 Test Item Value Reference Range Interpretation Comments PT (test code = 5902-2) 15.5 See_Comment H [Au tomated message] The system [employer] generated this result transmitted ref erence range: 11.5 - 1 3.9 second(s). The reference range was not used to int erpret this result as normal/abnormal . INR (test code = 6301-6) 1.31 0.90-1.10 H Lab Interpretation (test Abnormal code = 17580-3) [facility] StationProthrombin [id number] 18:46:28 Test Item Value Reference Range Interpretation Comments PT (test code = 5902-2) 15.5 See_Comment H [Au tomated message] The system [employer] generated this result transmitted ref erence range: 11.5 - 1 3.9 second(s). The reference range was not used to int erpret this result as normal/abnormal . INR (test code = 6301-6) 1.31 0.90-1.10 H Lab Interpretation (test Abnormal code = 47395-6) [facility] Platelet Fraction 2021-05-24 18:31:05 Test Item Value Reference Range Interpretation Comments IPF (test code = 5.6 % 0.8-6.2 5988) BEVERLEY (test code = For patients with BEVERLEY) Platelets lower than 100 k/mm3 [facility] Platelet Fraction 2021-05-24 18:31:05 Test Item Value Reference Range Interpretation Comments IPF (test code = 5.6 % 0.8-6.2 5988) BEVERLEY (test code = For patients with BEVERLEY) Platelets lower than 100 k/mm3 [facility] Platelet Fraction 2021-05-24 18:31:05 Test Item Value Reference Range Interpretation Comments IPF (test code = 5.6 % 0.8-6.2 5988) BEVERLEY (test code = For patients with BEVERLEY) Platelets lower than 100 k/mm3 [facility] Platelet Fraction 2021-05-24 18:31:05 Test Item Value Reference Range Interpretation Comments IPF (test code = 5.6 % 0.8-6.2 5988) BEVERLEY (test code = For patients with BEVERLEY) Platelets lower than 100 k/mm3 [facility] Platelet Fraction 2021-05-24 18:31:05 Test Item Value Reference Range Interpretation Comments IPF (test code = 5.6 % 0.8-6.2 5988) BEVERLEY (test code = For patients with BEVERLEY) Platelets lower than 100 k/mm3 [facility] Platelet Fraction 2021-05-24 18:31:05 Test Item Value Reference Range Interpretation Comments IPF (test code = 5.6 % 0.8-6.2 5988) BEVERLEY (test code = For patients with BEVERLEY) Platelets lower than 100 k/mm3 [facility] Platelet Fraction 2021-05-24 18:31:05 Test Item Value Reference Range Interpretation Comments IPF (test code = 5.6 % 0.8-6.2 5988) BEVERLEY (test code = For patients with BEVERLEY) Platelets lower than 100 k/mm3 [facility] StationRetic [id number] 18:31:04 Test Item Value Reference Range Interpretation Comments Retic Cnt Auto (test code 1.7 % 0.5-1.5 H = 91278-7) RETHE (test code = 33.7 pg 23.2-37.5 93852-1) IRF (test code = 10508-6) 12.0 % 2.3-18.0 BEVERLEY (test code = BEVERLEY) For patients with Platelets lower than 100 k/mm3 Lab Interpretation (test Abnormal code = 46240-3) [facility] StationRet [id number] 18:31:04 Test Item Value Reference Range Interpretation Comments Retic Cnt Auto (test code 1.7 % 0.5-1.5 H = 23029-5) RETHE (test code = 33.7 pg 23.2-37.5 84189-7) IRF (test code = 67981-0) 12.0 % 2.3-18.0 BEVERLEY (test code = BEVERLEY) For patients with Platelets lower than 100 k/mm3 Lab Interpretation (test Abnormal code = 54370-2) [facility] StationRetic [id number] 18:31:04 Test Item Value Reference Range Interpretation Comments Retic Cnt Auto (test code 1.7 % 0.5-1.5 H = 26695-3) RETHE (test code = 33.7 pg 23.2-37.5 01947-5) IRF (test code = 43644-3) 12.0 % 2.3-18.0 BEVERLEY (test code = BEVERLEY) For patients with Platelets lower than 100 k/mm3 Lab Interpretation (test Abnormal code = 23839-0) [facility] StationR[facility] [id number] 18:31:04 Test Item Value Reference Range Interpretation Comments Retic Cnt Auto (test code 1.7 % 0.5-1.5 H = 70184-2) RETHE (test code = 33.7 pg 23.2-37.5 86623-0) IRF (test code = 05338-4) 12.0 % 2.3-18.0 BEVERLEY (test code = BEVERLEY) For patients with Platelets lower than 100 k/mm3 Lab Interpretation (test Abnormal code = 34021-8) [facility] [id number] 18:31:04 Test Item Value Reference Range Interpretation Comments Retic Cnt Auto (test code 1.7 % 0.5-1.5 H = 32228-0) RETHE (test code = 33.7 pg 23.2-37.5 99040-6) IRF (test code = 66008-0) 12.0 % 2.3-18.0 BEVERLEY (test code = BEVERLEY) For patients with Platelets lower than 100 k/mm3 Lab Interpretation (test Abnormal code = 13181-0) [facility] StationRetic [id number] 18:31:04 Test Item Value Reference Range Interpretation Comments Retic Cnt Auto (test code 1.7 % 0.5-1.5 H = 02675-4) RETHE (test code = 33.7 pg 23.2-37.5 01664-4) IRF (test code = 88021-4) 12.0 % 2.3-18.0 BEVERLEY (test code = BEVERLEY) For patients with Platelets lower than 100 k/mm3 Lab Interpretation (test Abnormal code = 48368-6) [facility] StationRetic [id number] 18:31:04 Test Item Value Reference Range Interpretation Comments Retic Cnt Auto (test code 1.7 % 0.5-1.5 H = 74760-2) RETHE (test code = 33.7 pg 23.2-37.5 33864-5) IRF (test code = 71060-5) 12.0 % 2.3-18.0 BEVERLEY (test code = BEVERLEY) For patients with Platelets lower than 100 k/mm3 Lab Interpretation (test Abnormal code = 02710-9) [facility] StationElectrolyte [id number] 10:22:54 Test Item Value Reference Range Interpretation [...] to interpret this result as normal/abnormal . [facility] StationElectrolyte [id number] 10:22:54 Test Item Value Reference Range Interpretation [...] to interpret this result as normal/abnormal . [facility] StationElectrolyte [id number] 10:22:54 Test Item Value Reference Range Interpretation [...] to interpret this result as normal/abnormal . [facility] StationElectrolyte [id number] 10:22:54 Test Item Value Reference Range Interpretation [...] to interpret this result as normal/abnormal . [facility] StationElectrolyte [id number] 10:22:54 Test Item Value Reference Range Interpretation [...] to interpret this result as normal/abnormal . [facility] StationElectrolyte [id number] 10:22:54 Test Item Value Reference Range Interpretation [...] to interpret this result as normal/abnormal . [facility] StationElectrolyte [id number] 10:22:54 Test Item Value Reference Range Interpretation [...] to interpret this result as normal/abnormal . [facility] StationPhosphorus [id number] 10:22:52 Test Item Value Reference Range Interpretation Comments Phosphorus (test code = 2777-1) 4.3 mg/dL 2.5-4.5 [facility] StationPhosphorus [id number] 10:22:52 Test Item Value Reference Range Interpretation Comments Phosphorus (test code = 2777-1) 4.3 mg/dL 2.5-4.5 [facility] StationPhosphorus [id number] 10:22:52 Test Item Value Reference Range Interpretation Comments Phosphorus (test code = 2777-1) 4.3 mg/dL 2.5-4.5 [facility] StationPhosphorus [id number] 10:22:52 Test Item Value Reference Range Interpretation Comments Phosphorus (test code = 2777-1) 4.3 mg/dL 2.5-4.5 [facility] StationPhosphorus [id number] 10:22:52 Test Item Value Reference Range Interpretation Comments Phosphorus (test code = 2777-1) 4.3 mg/dL 2.5-4.5 [facility] StationPhosphorus [id number] 10:22:52 Test Item Value Reference Range Interpretation Comments Phosphorus (test code = 2777-1) 4.3 mg/dL 2.5-4.5 [facility] StationPhosphorus [id number] 10:22:52 Test Item Value Reference Range Interpretation Comments Phosphorus (test code = 2777-1) 4.3 mg/dL 2.5-4.5 [facility] StationCalcium [id number] 10:22:51 Test Item Value Reference Range Interpretation Comments Calcium Lvl (test code = 10302-7) 8.9 mg/dL 8.4-10.2 [facility] StationCalcium [id number] 10:22:51 Test Item Value Reference Range Interpretation Comments Calcium Lvl (test code = 15498-7) 8.9 mg/dL 8.4-10.2 [facility] StationCalcium [id number] 10:22:51 Test Item Value Reference Range Interpretation Comments Calcium Lvl (test code = 08569-2) 8.9 mg/dL 8.4-10.2 [facility] StationCalcium [id number] 10:22:51 Test Item Value Reference Range Interpretation Comments Calcium Lvl (test code = 86347-0) 8.9 mg/dL 8.4-10.2 [facility] StationCalcium [id number] 10:22:51 Test Item Value Reference Range Interpretation Comments Calcium Lvl (test code = 41097-2) 8.9 mg/dL 8.4-10.2 [facility] StationCalcium [id number] 10:22:51 Test Item Value Reference Range Interpretation Comments Calcium Lvl (test code = 28532-3) 8.9 mg/dL 8.4-10.2 [facility] StationCalcium [id number] 10:22:51 Test Item Value Reference Range Interpretation Comments Calcium Lvl (test code = 63450-0) 8.9 mg/dL 8.4-10.2 [facility] StationGlomerular Filtration Rate 2021-05-24 10:22:50 Test Item Value Reference Range Interpretation Comments eGFR-AA (test code 84 See_Comment Normal eG FR: >= 60 = 90920-0) mL/min/1.73 m2N ote: The eGFR is calculated [...] See_Comment Normal e GFR: >= 60 = 26099-6) mL/min/1.73 m2N ote: The eGFR is calculated [...] interpret th is result as normal/abnormal . [facility] StationGlomerular Filtration Rate 2021-05-24 10:22:50 Test Item Value Reference Range Interpretation Comments eGFR-AA (test code 84 See_Comment Normal eG FR: >= 60 = 09780-6) mL/min/1.73 m2N ote: The eGFR is calculated [...] See_Comment Normal e GFR: >= 60 = 27749-0) mL/min/1.73 m2N ote: The eGFR is calculated [...] interpret th is result as normal/abnormal . [facility] StationGlomerular Filtration Rate 2021-05-24 10:22:50 Test Item Value Reference Range Interpretation Comments eGFR-AA (test code 84 See_Comment Normal eG FR: >= 60 = 00454-7) mL/min/1.73 m2N ote: The eGFR is calculated [...] See_Comment Normal e GFR: >= 60 = 20542-1) mL/min/1.73 m2N ote: The eGFR is calculated [...] interpret th is result as normal/abnormal . [facility] StationGlomerular Filtration Rate 2021-05-24 10:22:50 Test Item Value Reference Range Interpretation Comments eGFR-AA (test code 84 See_Comment Normal eG FR: >= 60 = 53970-5) mL/min/1.73 m2N ote: The eGFR is calculated [...] See_Comment Normal e GFR: >= 60 = 50656-9) mL/min/1.73 m2N ote: The eGFR is calculated [...] interpret th is result as normal/abnormal . [facility] StationGlomerular Filtration Rate 2021-05-24 10:22:50 Test Item Value Reference Range Interpretation Comments eGFR-AA (test code 84 See_Comment Normal eG FR: >= 60 = 55006-8) mL/min/1.73 m2N ote: The eGFR is calculated [...] See_Comment Normal e GFR: >= 60 = 64758-6) mL/min/1.73 m2N ote: The eGFR is calculated [...] 60-893a Mildly to moder ately decreased GFR 45-593b Moderately to s everely decreased GFR 3 0-444 Severely decreased GFR 1 5-295 Kidney failure <15 [Au tomated message] The [employer] stem which generated this result transmitted ref erence range: >=60 mL/min/1.7 3 sq. m. The reference range was not used to interpret is result as normal/abnormal . [facility] StationGlomerular Filtration Rate 2021-05-24 10:22:50 Test Item Value Reference Range Interpretation Comments eGFR-AA (test code 84 See_Comment Normal eG FR: >= 60 = 82087-3) mL/min/1.73 m2N ote: The eGFR is calculated [...] See_Comment Normal e GFR: >= 60 = 09232-6) mL/min/1.73 m2N ote: The eGFR is calculated [...] interpret th is result as normal/abnormal . [facility] [place]Gl[facility] Filtration Rate 2021-05-24 10:22:50 Test Item Value Reference Range Interpretation Comments eGFR-AA (test code 84 See_Comment Normal eG FR: >= 60 = 79486-9) mL/min/1.73 m2N ote: The eGFR is calculated [...] See_Comment Normal e GFR: >= 60 = 33150-5) mL/min/1.73 m2N ote: The eGFR is calculated [...] interpret th is result as normal/abnormal . [facility] StationMagnesium [id number] 10:22:48 Test Item Value Reference Range Interpretation Comments Magnesium (test code = 84201-7) 2.1 mg/dL 1.6-2.6 [facility] StationMagnesium [id number] 10:22:48 Test Item Value Reference Range Interpretation Comments Magnesium (test code = 62127-5) 2.1 mg/dL 1.6-2.6 [facility] StationMagnesium [id number] 10:22:48 Test Item Value Reference Range Interpretation Comments Magnesium (test code = 20042-0) 2.1 mg/dL 1.6-2.6 [facility] StationMagnesium [id number] 10:22:48 Test Item Value Reference Range Interpretation Comments Magnesium (test code = 15835-8) 2.1 mg/dL 1.6-2.6 [facility] StationMagn[facility] [id number] 10:22:48 Test Item Value Reference Range Interpretation Comments Magnesium (test code = 66033-8) 2.1 mg/dL 1.6-2.6 [facility] StationMagnesium [id number] 10:22:48 Test Item Value Reference Range Interpretation Comments Magnesium (test code = 64522-4) 2.1 mg/dL 1.6-2.6 [facility] StationMagnesium [id number] 10:22:48 Test Item Value Reference Range Interpretation Comments Magnesium (test code = 04777-4) 2.1 mg/dL 1.6-2.6 [facility] StationGlucose [id number] 10:22:47 Test Item Value Reference Range Interpretation [...] diabetes Lab Interpretation (test Abnormal code = 42361-0) [facility] StationGlucose [id number] 10:22:47 Test Item Value Reference Range Interpretation [...] diabetes Lab Interpretation (test Abnormal code = 00892-5) [facility] StationGl[facility] [id number] 10:22:47 Test Item Value Reference Range Interpretation [...] diabetes Lab Interpretation (test Abnormal code = 19615-9) [facility] StationGlucose [id number] 10:22:47 Test Item Value Reference Range Interpretation [...] diabetes Lab Interpretation (test Abnormal code = 44709-3) [facility] StationGl[facility] [id number] 10:22:47 Test Item Value Reference Range Interpretation [...] diabetes Lab Interpretation (test Abnormal code = 75352-8) [facility] StationGlucose [id number] 10:22:47 Test Item Value Reference Range Interpretation [...] diabetes Lab Interpretation (test Abnormal code = 69625-9) [facility] StationGlucose [id number] 10:22:47 Test Item Value Reference Range Interpretation [...] diabetes Lab Interpretation (test Abnormal code = 30054-7) [facility].Serum Fvtcyoprch8334-09-00 10:22:46 Test Item Value Reference Range Interpretation Comments Creatinine (test code = 2160-0) 0.98 mg/dL 0.67-1.17 [facility].Serum Temhuozpri6314-92-68 10:22:46 Test Item Value Reference Range Interpretation Comments Creatinine (test code = 2160-0) 0.98 mg/dL 0.67-1.17 [facility].Serum Tuyuksrjwl4461-37-35 10:22:46 Test Item Value Reference Range Interpretation Comments Creatinine (test code = 2160-0) 0.98 mg/dL 0.67-1.17 [facility].Serum Rrzkaplmiy3514-10-00 10:22:46 Test Item Value Reference Range Interpretation Comments Creatinine (test code = 2160-0) 0.98 mg/dL 0.67-1.17 [facility].Serum [id number] 10:22:46 Test Item Value Reference Range Interpretation Comments Creatinine (test code = 2160-0) 0.98 mg/dL 0.67-1.17 [facility].Serum [id number] 10:22:46 Test Item Value Reference Range Interpretation Comments Creatinine (test code = 2160-0) 0.98 mg/dL 0.67-1.17 [facility].Serum [id number] 10:22:46 Test Item Value Reference Range Interpretation Comments Creatinine (test code = 2160-0) 0.98 mg/dL 0.67-1.17 [facility] 10:22:45 Test Item Value Reference Range Interpretation Comments BUN (test code = 3094-0) 23 mg/dL 6- [facility] 10:22:45 Test Item Value Reference Range Interpretation Comments BUN (test code = 3094-0) 23 mg/dL 6- [facility]13 10:22:45 Test Item Value Reference Range Interpretation Comments BUN (test code = 3094-0) 23 mg/dL 6- [facility]13 10:22:45 Test Item Value Reference Range Interpretation Comments BUN (test code = 3094-0) 23 mg/dL 6- [facility]13 10:22:45 Test Item Value Reference Range Interpretation Comments BUN (test code = 3094-0) 23 mg/dL 6- [facility]13 10:22:45 Test Item Value Reference Range Interpretation Comments BUN (test code = 3094-0) 23 mg/dL 6- [facility]13 10:22:45 Test Item Value Reference Range Interpretation Comments BUN (test code = 3094-0) 23 mg/dL 6- [facility] + COVID-19, Nasopharyngeal [id number] 22:18:45 Test Item Value Reference Range Interpretation [...] Not Detected Not Detected (test code = 76744-3) Human Metapneumovirus Not Detected Not Detected (test [...] Detected Not Detected Parapertussis (test code = 40846) Bordetella pertussis Not Detected Not Detected (test [...] including SARS-CoV-2, from a single nasopharyngeal swab (VENTILATION MECHANIC) specimen obtained from individuals suspected of respiratory [...] that may not be detected by an VENTILATION MECHANIC specimen. Internal controls are used to monitor [...] and high-complexity tests. The [facility] at [facility], CLIA Accreditation #[id number] and CAP Accreditation #[id number], verified the performance characteristics of this assay. [facility] Laboratory at [facility] performs the assay using the Opiatalk System. The BioFire RP2.1 is a real-time, nested multiplexed polymerase chain reaction test designed to simultaneously identify nucleic acids from 22 different viruses and bacteria associated with respiratory tract infection, including SARS-CoV-2, from a single nasopharyngeal swab (VENTILATION MECHANIC) specimen obtained from individuals suspected of respiratory [...] that may not be detected by an VENTILATION MECHANIC specimen. Internal controls are used to monitor [...] and high-complexity tests. The [facility] at [facility], CLIA Accreditation #[id number] and CAP Accreditation #[id number], verified the performance characteristics of this assay. [facility] at [facility] performs the assay using the Opiatalk System. [facility] COVID-19, Nasopharyngeal [id number] 22:18:45 Test Item Value Reference Range Interpretation [...] Not Detected Not Detected (test code = 49286-6) Human Metapneumovirus Not Detected Not Detected (test [...] Detected Not Detected Parapertussis (test code = 54293) Bordetella pertussis Not Detected Not Detected (test [...] including SARS-CoV-2, from a single nasopharyngeal swab (VENTILATION MECHANIC) specimen obtained from individuals suspected of respiratory [...] that may not be detected by an VENTILATION MECHANIC specimen. Internal controls are used to monitor [...] and high-complexity tests. The [facility] at [facility], CLIA Accreditation #[id number] and CAP Accreditation #[id number], verified the performance characteristics of this assay. [facility] at [facility] performs the assay using the Opiatalk System. The BioFire RP2.1 is a real-time, nested multiplexed polymerase chain reaction test designed to simultaneously identify nucleic acids from 22 different viruses and bacteria associated with respiratory tract infection, including SARS-CoV-2, from a single nasopharyngeal swab (VENTILATION MECHANIC) specimen obtained from individuals suspected of respiratory [...] that may not be detected by an VENTILATION MECHANIC specimen. Internal controls are used to monitor [...] and high-complexity tests. The [facility] at [facility], CLIA Accreditation #[id number] and CAP Accreditation #[id number], verified the performance characteristics of this assay. [facility] at [facility] performs the assay using the Opiatalk System. [facility] COVID-19, Nasopharyngeal [id number] 22:18:45 Test Item Value Reference Range Interpretation [...] Not Detected Not Detected (test code = 09057-1) Human Metapneumovirus Not Detected Not Detected (test [...] Detected Not Detected Parapertussis (test code = 78218) Bordetella pertussis Not Detected Not Detected (test [...] including SARS-CoV-2, from a single nasopharyngeal swab (VENTILATION MECHANIC) specimen obtained from individuals suspected of respiratory [...] that may not be detected by an VENTILATION MECHANIC specimen. Internal controls are used to monitor [...] and high-complexity tests. The [facility] at [facility], CLIA Accreditation #[id number] and CAP Accreditation #[id number], verified the performance characteristics of this assay. [facility] at [facility] performs the assay using the Opiatalk System. The BioFire RP2.1 is a real-time, nested multiplexed polymerase chain reaction test designed to simultaneously identify nucleic acids from 22 different viruses and bacteria associated with respiratory tract infection, including SARS-CoV-2, from a single nasopharyngeal swab (VENTILATION MECHANIC) specimen obtained from individuals suspected of respiratory [...] that may not be detected by an VENTILATION MECHANIC specimen. Internal controls are used to monitor [...] and high-complexity tests. The [facility] at [facility], CLIA Accreditation #[id number] and CAP Accreditation #[id number], verified the performance characteristics of this assay. [facility] at [facility] performs the assay using the Opiatalk System. [facility] COVID-19, Nasopharyngeal [id number] 22:18:45 Test Item Value Reference Range Interpretation [...] Not Detected Not Detected (test code = 91681-7) Human Metapneumovirus Not Detected Not Detected (test [...] Detected Not Detected Parapertussis (test code = 25621) Bordetella pertussis Not Detected Not Detected (test [...] including SARS-CoV-2, from a single nasopharyngeal swab (VENTILATION MECHANIC) specimen obtained from individuals suspected of respiratory [...] that may not be detected by an VENTILATION MECHANIC specimen. Internal controls are used to monitor [...] and high-complexity tests. The [facility] at [facility], CLIA Accreditation #[id number] and CAP Accreditation #[id number], verified the performance characteristics of this assay. [facility] at [facility] performs the assay using the Opiatalk System. The BioFire RP2.1 is a real-time, nested multiplexed polymerase chain reaction test designed to simultaneously identify nucleic acids from 22 different viruses and bacteria associated with respiratory tract infection, including SARS-CoV-2, from a single nasopharyngeal swab (VENTILATION MECHANIC) specimen obtained from individuals suspected of respiratory [...] that may not be detected by an VENTILATION MECHANIC specimen. Internal controls are used to monitor [...] and high-complexity tests. The [facility] at [facility], CLIA Accreditation #[id number] and CAP Accreditation #[id number], verified the performance characteristics of this assay. [facility] at [facility] performs the assay using the Opiatalk System. [facility] COVID-19, Nasopharyngeal [id number] 22:18:45 Test Item Value Reference Range Interpretation [...] Not Detected Not Detected (test code = 91079-9) Human Metapneumovirus Not Detected Not Detected (test [...] Detected Not Detected Parapertussis (test code = 15498) Bordetella pertussis Not Detected Not Detected (test [...] including SARS-CoV-2, from a single nasopharyngeal swab (VENTILATION MECHANIC) specimen obtained from individuals suspected of respiratory [...] that may not be detected by an VENTILATION MECHANIC specimen. Internal controls are used to monitor [...] and high-complexity tests. The [facility] at [facility], CLIA Accreditation #[id number] and CAP Accreditation #[id number], verified the performance characteristics of this assay. [facility] at [facility] performs the assay using the Opiatalk System. The BioFire RP2.1 is a real-time, nested multiplexed polymerase chain reaction test designed to simultaneously identify nucleic acids from 22 different viruses and bacteria associated with respiratory tract infection, including SARS-CoV-2, from a single nasopharyngeal swab (VENTILATION MECHANIC) specimen obtained from individuals suspected of respiratory [...] that may not be detected by an VENTILATION MECHANIC specimen. Internal controls are used to monitor [...] and high-complexity tests. The [facility] at [facility], CLIA Accreditation #[id number] and CAP Accreditation #[id number], verified the performance characteristics of this assay. [facility] at [facility] performs the assay using the Opiatalk System. [facility] COVID-19, Nasopharyngeal [id number] 22:18:45 Test Item Value Reference Range Interpretation Comments Adenovirus (test code = Not Detected Not Detected 4745) Coronavirus 229E (test Not Detected Not Detected code = 5349) Coronavirus HKU1 (test Not Detected Not Detected code = 5350) Coronavirus NL63 (test Not Detected Not Detected code = 5351) Coronavirus OC43 (test Not Detected Not Detected code = 5352) COVID19 (SARS-CoV-2) Not Detected Not Detected (test code = 71357-5) Human Metapneumovirus Not Detected Not Detected (test [...] Detected Not Detected Parapertussis (test code = 02830) Bordetella pertussis Not Detected Not Detected (test [...] including SARS-CoV-2, from a single nasopharyngeal swab (VENTILATION MECHANIC) specimen obtained from individuals suspected of respiratory [...] that may not be detected by an VENTILATION MECHANIC specimen. Internal controls are used to monitor [...] and high-complexity tests. The [facility] at [facility], CLIA Accreditation #[id number] and CAP Accreditation #[id number], verified the performance characteristics of this assay. [facility] at [facility] performs the assay using the Opiatalk System. The BioFire RP2.1 is a real-time, nested multiplexed polymerase chain reaction test designed to simultaneously identify nucleic acids from 22 different viruses and bacteria associated with respiratory tract infection, including SARS-CoV-2, from a single nasopharyngeal swab (VENTILATION MECHANIC) specimen obtained from individuals suspected of respiratory [...] that may not be detected by an VENTILATION MECHANIC specimen. Internal controls are used to monitor [...] and high-complexity tests. The [facility] at [facility], CLIA Accreditation #[id number] and CAP Accreditation #[id number], verified the performance characteristics of this assay. [facility] at [facility] performs the assay using the Opiatalk System. [facility] COVID-19, Nasopharyngeal [id number] 22:18:45 Test Item Value Reference Range Interpretation [...] Not Detected Not Detected (test code = 44572-7) Human Metapneumovirus Not Detected Not Detected (test [...] Detected Not Detected Parapertussis (test code = 86117) Bordetella pertussis Not Detected Not Detected (test [...] including SARS-CoV-2, from a single nasopharyngeal swab (VENTILATION MECHANIC) specimen obtained from individuals suspected of respiratory [...] that may not be detected by an VENTILATION MECHANIC specimen. Internal controls are used to monitor [...] and high-complexity tests. The [facility] at [facility], CLIA Accreditation #[id number] and CAP Accreditation #[id number], verified the performance characteristics of this assay. [facility] at [facility] performs the assay using the Opiatalk System. The BioFire RP2.1 is a real-time, nested multiplexed polymerase chain reaction test designed to simultaneously identify nucleic acids from 22 different viruses and bacteria associated with respiratory tract infection, including SARS-CoV-2, from a single nasopharyngeal swab (VENTILATION MECHANIC) specimen obtained from individuals suspected of respiratory [...] that may not be detected by an VENTILATION MECHANIC specimen. Internal controls are used to monitor [...] and high-complexity tests. The [facility] at [facility], CLIA Accreditation #[id number] and CAP Accreditation #[id number], verified the performance characteristics of this assay. [facility] at [facility] performs the assay using the Opiatalk System. [facility] StationD-[id number] 20:40:38 Test Item Value Reference Range Interpretation Comments D-Dimer (test code 0.38 See_Comment The cut o ff value for = 08763-2) exclusion of ve nous thromboembolism is <0.51 mcg/mL FEUs (fibrinoge n equivalent units). [Automa esteban message] The system [employer] generated this result tra nsmitted reference range : 0.10 - 0.50 mcg/ml FEU. The reference range was not u sed to interpret this result as normal/abnormal . [facility] StationD-qdsax5582-01-96 20:40:38 Test Item Value Reference Range Interpretation Comments D-Dimer (test code 0.38 See_Comment The cut o ff value for = 62705-1) exclusion of ve nous thromboembolism is <0.51 mcg/mL FEUs (fibrinoge n equivalent units). [Automa esteban message] The system [employer] generated this result tra nsmitted reference range : 0.10 - 0.50 mcg/ml FEU. The reference range was not u sed to interpret this result as normal/abnormal . [facility] StationD-[id number] 20:40:38 Test Item Value Reference Range Interpretation Comments D-Dimer (test code 0.38 See_Comment The cut o ff value for = 64893-1) exclusion of ve nous thromboembolism is <0.51 mcg/mL FEUs (fibrinoge n equivalent units). [Automa esteban message] The system [employer] generated this result tra nsmitted reference range : 0.10 - 0.50 mcg/ml FEU. The reference range was not u sed to interpret this result as normal/abnormal . [facility] StationD-ivjgl6836-69-34 20:40:38 Test Item Value Reference Range Interpretation Comments D-Dimer (test code 0.38 See_Comment The cut o ff value for = 12157-6) exclusion of ve nous thromboembolism is <0.51 mcg/mL FEUs (fibrinoge n equivalent units). [Automa esteban message] The system [employer] generated this result tra nsmitted reference range : 0.10 - 0.50 mcg/ml FEU. The reference range was not u sed to interpret this result as normal/abnormal . [facility] StationD-brwfu0256-85-78 20:40:38 Test Item Value Reference Range Interpretation Comments D-Dimer (test code 0.38 See_Comment The cut o ff value for = 51910-8) exclusion of ve nous thromboembolism is <0.51 mcg/mL FEUs (fibrinoge n equivalent units). [[employer] message] The system [employer] generated this result tra nsmitted reference range : 0.10 - 0.50 mcg/ml FEU. The reference range was not u sed to interpret this result as normal/abnormal . [facility] StationD-ilqbe3724-43-21 20:40:38 Test Item Value Reference Range Interpretation Comments D-Dimer (test code 0.38 See_Comment The cut o ff value for = 13527-8) exclusion of ve nous thromboembolism is <0.51 mcg/mL FEUs (fibrinoge n equivalent units). [AutomM[employer] message] The system [employer] generated this result tra nsmitted reference range : 0.10 - 0.50 mcg/ml FEU. The reference range was not u sed to interpret this result as normal/abnormal . [facility] StationD-vxayt0239-09-04 20:40:38 Test Item Value Reference Range Interpretation Comments D-Dimer (test code 0.38 See_Comment The cut o ff value for = 68218-7) exclusion of ve nous thromboembolism is <0.51 mcg/mL FEUs (fibrinoge n equivalent units). [Automa esteban message] The system [employer] generated this result tra nsmitted reference range : 0.10 - 0.50 mcg/ml FEU. The reference range was not u sed to interpret this result as normal/abnormal . [facility] ([facility]-House)2021-05-22 20:33:25 Test Item Value Reference Range Interpretation Comments NT ProBNP (test code = 538 pg/mL See_Comment H [Aut omated message] 74787-4) The system [employer] generated this result transmit esteban reference range : <=450. The refe rence range was not u sed to interpret th is result as normal/abnormal . Lab Interpretation (test Abnormal code = 73165-4) [facility]2021-05-22 20:33:25 Test Item Value Reference Range Interpretation Comments NT ProBNP (test code = 538 pg/mL See_Comment H [Aut omated message] 10621-9) The system [employer] generated this result transmit esteban reference range : <=450. The refe rence range was not u sed to interpret th is result as normal/abnormal . Lab Interpretation (test Abnormal code = 08896-6) [facility]2021-05-22 20:33:25 Test Item Value Reference Range Interpretation Comments NT ProBNP (test code = 538 pg/mL See_Comment H [Aut omated message] 85807-8) The system [employer] generated this result transmit esteban reference range : <=450. The refe rence range was not u sed to interpret th is result as normal/abnormal . Lab Interpretation (test Abnormal code = 62252-7) [facility]2021-05-22 20:33:25 Test Item Value Reference Range Interpretation Comments NT ProBNP (test code = 538 pg/mL See_Comment H [Aut omated message] 56886-1) The system [employer] generated this result transmit esteban reference range : <=450. The refe rence range was not u sed to interpret th is result as normal/abnormal . Lab Interpretation (test Abnormal code = 20478-6) [facility]2021-05-22 20:33:25 Test Item Value Reference Range Interpretation Comments NT ProBNP (test code = 538 pg/mL See_Comment H [Aut omated message] 10018-9) The system [employer] generated this result transmit esteban reference range : <=450. The refe rence range was not u sed to interpret th is result as normal/abnormal . Lab Interpretation (test Abnormal code = 16376-9) [facility]2021-05-22 20:33:25 Test Item Value Reference Range Interpretation Comments NT ProBNP (test code = 538 pg/mL See_Comment H [Aut omated message] 44004-9) The system [employer] generated this result transmit esteban reference range : <=450. The refe rence range was not u sed to interpret th is result as normal/abnormal . Lab Interpretation (test Abnormal code = 52872-0) [facility]2021-05-22 20:33:25 Test Item Value Reference Range Interpretation Comments NT ProBNP (test code = 538 pg/mL See_Comment H [Aut omated message] 84903-5) The system [employer] generated this result transmit esteban reference range : <=450. The refe rence range was not u sed to interpret th is result as normal/abnormal . Lab Interpretation (test Abnormal code = 84093-5) [facility] [id number] 20:32:34 Test Item Value Reference Range Interpretation Comments CK (test code = 2157-6) 148 U/L 39-308 CK MB (test code = 6.3 ng/mL See_Comment [Automat ed message] 92290-1) The system [employer] generated this result transmitted ref erence range: <=10.4. The reference range was not used to int erpret this result as normal/abnormal . Troponin T (test code = 67 ng/L See_Comment A < 19 ng/L Suggest 92304-9) retest at 3 to 6 hours later [...] res ults. [Automated mess age] The system [employer] generated this result transmitted ref erence range: <=18. Th e reference range was not used to int erpret this result as normal/abnormal . Lab Interpretation Abnormal (test code = 42618-6) [facility] [id number] 20:32:34 Test Item Value Reference Range Interpretation Comments CK (test code = 2157-6) 148 U/L 39-308 CK MB (test code = 6.3 ng/mL See_Comment [Automat ed message] 99607-8) The system [employer] generated this result transmitted ref erence range: <=10.4. The reference range was not used to int erpret this result as normal/abnormal . Troponin T (test code = 67 ng/L See_Comment A < 19 ng/L Suggest 66726-7) retest at 3 to 6 hours later [...] nly reported for e first in a seri es. Hemolyzed speci mens with Hemolysis Index >100 (100 mg/dl or moderate hemoly sis) may cause interferences a nd falsely low res ults. [Automated mess age] The system [employer] generated this result transmitted ref erence range: <=18. Th e reference range was not used to int erpret this result as normal/abnormal . Lab Interpretation Abnormal (test code = 79797-4) [facility] [id number] 20:32:34 Test Item Value Reference Range Interpretation Comments CK (test code = 2157-6) 148 U/L 39-308 CK MB (test code = 6.3 ng/mL See_Comment [Automat ed message] 74946-7) The system [employer] generated this result transmitted ref erence range: <=10.4. The reference range was not used to int erpret this result as normal/abnormal . Troponin T (test code = 67 ng/L See_Comment A < 19 ng/L Suggest 33528-7) retest at 3 to 6 hours later [...] 52 ng/L an d only reported for e first in a seri es. Hemolyzed speci mens with Hemolysis Index >100 (100 mg/dl or moderate hemoly sis) may cause interferences a nd falsely low res ults. [Automated mess age] The system [employer] generated this result transmitted ref erence range: <=18. Th e reference range was not used to int erpret this result as normal/abnormal . Lab Interpretation Abnormal (test code = 24841-9) [facility] [place] Skpij0790-28-57 20:32:34 Test Item Value Reference Range Interpretation Comments CK (test code = 2157-6) 148 U/L 39-308 CK MB (test code = 6.3 ng/mL See_Comment [Automat ed message] 54745-8) The system [employer] generated this result transmitted ref erence range: <=10.4. The reference range was not used to int erpret this result as normal/abnormal . Troponin T (test code = 67 ng/L See_Comment A < 19 ng/L Suggest 94927-0) retest at 3 to 6 hours later [...] res ults. [Automated mess age] The system [employer] generated this result transmitted ref erence range: <=18. Th e reference range was not used to int erpret this result as normal/abnormal . Lab Interpretation Abnormal (test code = 56427-6) [facility] Fqdpe5625-79-82 20:32:34 Test Item Value Reference Range Interpretation Comments CK (test code = 2157-6) 148 U/L 39-308 CK MB (test code = 6.3 ng/mL See_Comment [Automat ed message] 61920-9) The system [employer] generated this result transmitted ref erence range: <=10.4. The reference range was not used to int erpret this result as normal/abnormal . Troponin T (test code = 67 ng/L See_Comment A < 19 ng/L Suggest 80335-6) retest at 3 to 6 hours later [...] res ults. [Automated mess age] The system [employer] generated this result transmitted ref erence range: <=18. Th e reference range was not used to int erpret this result as normal/abnormal . Lab Interpretation Abnormal (test code = 19499-2) [facility] Rnprz9579-80-84 20:32:34 Test Item Value Reference Range Interpretation Comments CK (test code = 2157-6) 148 U/L 39-308 CK MB (test code = 6.3 ng/mL See_Comment [Automat ed message] 45612-7) The system [employer] generated this result transmitted ref erence range: <=10.4. The reference range was not used to int erpret this result as normal/abnormal . Troponin T (test code = 67 ng/L See_Comment A < 19 ng/L Suggest 72148-6) retest at 3 to 6 hours later [...] res ults. [Automated mess age] The system [employer] generated this result transmitted ref erence range: <=18. Th e reference range was not used to int erpret this result as normal/abnormal . Lab Interpretation Abnormal (test code = 56087-4) [facility] Emanf5092-69-19 20:32:34 Test Item Value Reference Range Interpretation Comments CK (test code = 2157-6) 148 U/L 39-308 CK MB (test code = 6.3 ng/mL See_Comment [Automat ed message] 42423-7) The system [employer] generated this result transmitted ref erence range: <=10.4. The reference range was not used to int erpret this result as normal/abnormal . Troponin T (test code = 67 ng/L See_Comment A < 19 ng/L Suggest 73628-7) retest at 3 to 6 hours later [...] res ults. [Automated mess age] The system [employer] generated this result transmitted ref erence range: <=18. Th e reference range was not used to int erpret this result as normal/abnormal . Lab Interpretation Abnormal (test code = 52347-6) [facility] Pvgcsoaut6423-70-99 20:32:19 Test Item Value Reference Range Interpretation [...] above 28 g/L. [Automated message] The system [employer] generated this result transmitted ref erence range: [...] [facility] Eovvpzwlw5680-60-65 20:32:19 Test Item Value Reference Range Interpretation [...] above 28 g/L. [Automated message] The system [employer] generated this result transmitted ref erence range: [...] [facility] Ytmavhhmd8395-91-75 20:32:19 Test Item Value Reference Range Interpretation [...] above 28 g/L. [Automated message] The system [employer] generated this result transmitted ref erence range: [...] [facility] Station[facility] Vllatjcfn2387-50-36 20:32:19 Test Item Value Reference Range Interpretation [...] above 28 g/L. [Automated message] The system [employer] generated this result transmitted ref erence range: <=1.2. T he reference range was not used to interpr et this result as normal/abnormal . Bili Direct (test <0.2 See_Comment Indocyanin e Green (ICG) code = 1967-09) may cause fal sely elevated biliru bin results. Total and direct bilirubin must not be measured from s amples containing indo cyanine green. [Automat ed message] The [employer] stem which generated this result transmitted ref erence range: <=0.3 mg /dL. The reference range was not used to interpr et this result as normal/abnormal . Bili Indirect (test See Note 0.0-0.9 Unable t o calculate code = 1970-03) Indirect Bili ross result due to some par ameters are outside rep ortable range [facility] Lovuioaly8794-15-02 20:32:19 Test Item Value Reference Range Interpretation [...] above 28 g/L. [Automated message] The system [employer] generated this result transmitted ref erence range: [...] [facility] Station[facility] Qhyuqxpya7738-62-34 20:32:19 Test Item Value Reference Range Interpretation [...] above 28 g/L. [Automated message] The system [employer] generated this result transmitted ref erence range: [...] [facility] Itjvbjjlg8393-65-04 20:32:19 Test Item Value Reference Range Interpretation [...] above 28 g/L. [Automated message] The system [employer] generated this result transmitted ref erence range: [...] par ameters are outside rep ortable range [facility] Vhqjxha3235-14-45 20:32:16 Test Item Value Reference Range Interpretation Comments Total Protein (test code = 2885-2) 7.1 g/dL 6.4-8.3 [facility] Fduabrj2603-35-75 20:32:16 Test Item Value Reference Range Interpretation Comments Total Protein (test code = 2885-2) 7.1 g/dL 6.4-8.[address] [facility] Idddjjw3584-96-53 20:32:16 Test Item Value Reference Range Interpretation Comments Total Protein (test code = 2885-2) 7.1 g/dL 6.4-8.3 [facility] Cqzslce7653-17-45 20:32:16 Test Item Value Reference Range Interpretation Comments Total Protein (test code = 2885-2) 7.1 g/dL 6.4-8.3 [facility] Nhdznju4316-77-72 20:32:16 Test Item Value Reference Range Interpretation Comments Total Protein (test code = 2885-2) 7.1 g/dL 6.4-8.3 [facility] Lzxxmhq0929-50-54 20:32:16 Test Item Value Reference Range Interpretation Comments Total Protein (test code = 2885-2) 7.1 g/dL 6.4-8.3 [facility] Zzvuvee6991-84-78 20:32:16 Test Item Value Reference Range Interpretation Comments Total Protein (test code = 2885-2) 7.1 g/dL 6.4-8.3 [facility] StationAlk[facility] Whvvqsrbisv4688-50-96 20:32:14 Test Item Value Reference Range Interpretation Comments Alk Phos (test code = 6768-6) 90 U/L 40-129 [facility] Esihoapklvu2307-66-49 20:32:14 Test Item Value Reference Range Interpretation Comments Alk Phos (test code = 6768-6) 90 U/L 40-129 [facility] Station[facility] Dtbovvqcewz1758-77-37 20:32:14 Test Item Value Reference Range Interpretation Comments Alk Phos (test code = 6768-6) 90 U/L 40-129 [facility] Cpgfchggftf0220-62-22 20:32:14 Test Item Value Reference Range Interpretation Comments Alk Phos (test code = 6768-6) 90 U/L 40-129 [facility] Station[facility] Dcuddgtvfgo8582-86-39 20:32:14 Test Item Value Reference Range Interpretation Comments Alk Phos (test code = 6768-6) 90 U/L 40-129 [facility] Station[facility] Ktntwteamhf4198-78-41 20:32:14 Test Item Value Reference Range Interpretation Comments Alk Phos (test code = 6768-6) 90 U/L 40-129 [facility] Station[facility] Tjrucdiwead1282-70-35 20:32:14 Test Item Value Reference Range Interpretation Comments Alk Phos (test code = 6768-6) 90 U/L 40-129 [facility] StationALT2022-03-11 20:32:12 Test Item Value Reference Range Interpretation Comments ALT (test code = 13 U/L See_Comment [Automated message] The 1741-) system which ge nerated this result transmit esteban reference range : <=41. The reference range was not used to interpr et this result as cuate l/abnormal. [facility]2022-03-11 20:32:12 Test Item Value Reference Range Interpretation Comments ALT (test code = 13 U/L See_Comment [Automated message] The [facility]04-19) system which ge nerated this result transmit esteban reference range : <=41. The reference range was not used to interpr et this result as cuate l/abnormal. [place] 86942022-03-11 20:32:12 Test Item Value Reference Range Interpretation Comments ALT (test code = 13 U/L See_Comment [Automated message] The [facility]04-19) system which ge nerated this result transmit esteban reference range : <=41. The reference range was not used to interpr et this result as cuate l/abnormal. [place] 86942022-03-11 20:32:12 Test Item Value Reference Range Interpretation Comments ALT (test code = 13 U/L See_Comment [Automated message] The 1741-08) system which ge nerated this result transmit esteban reference range : <=41. The reference range was not used to interpr et this result as cuate l/abnormal. [place] 86942022-03-11 20:32:12 Test Item Value Reference Range Interpretation Comments ALT (test code = 13 U/L See_Comment [Automated message] The 1741-08) system which ge nerated this result transmit esteban reference range : <=41. The reference range was not used to interpr et this result as cuate l/abnormal. [place] 86942022-03-11 20:32:12 Test Item Value Reference Range Interpretation Comments ALT (test code = 13 U/L See_Comment [Automated message] The [facility]04-19) system which ge nerated this result transmit esteban reference range : <=41. The reference range was not used to interpr et this result as cuate l/abnormal. [place] 86942022-03-11 20:32:12 Test Item Value Reference Range Interpretation Comments ALT (test code = 13 U/L See_Comment [Automated message] The 1741-08) system which ge nerated this result transmit esteban reference range : <=41. The reference range was not used to interpr et this result as cuate l/abnormal. [facility] Fzanj9459-84-85 20:32:07 Test Item Value Reference Range Interpretation Comments Albumin Lvl (test code 4.1 See_Comment [Aut omated message] The = 4763) system which ge nerated this result tra nsmitted reference range : 3.5 - 5.2 gm/dL. The refe rence range was not used to interpret this result as normal/abnormal . [facility] StationAlbum[facility] Pjwus8294-57-01 20:32:07 Test Item Value Reference Range Interpretation Comments Albumin Lvl (test code 4.1 See_Comment [Aut omated message] The = 4763) system which ge nerated this result tra nsmitted reference range : 3.5 - 5.2 gm/dL. The refe rence range was not used to interpret this result as normal/abnormal . [facility] Station[facility] Zpbys9801-47-97 20:32:07 Test Item Value Reference Range Interpretation Comments Albumin Lvl (test code 4.1 See_Comment [Aut omated message] The = 4763) system which ge nerated this result tra nsmitted reference range : 3.5 - 5.2 gm/dL. The refe rence range was not used to interpret this result as normal/abnormal . [facility] Station[facility] Blkuz4767-61-75 20:32:07 Test Item Value Reference Range Interpretation Comments Albumin Lvl (test code 4.1 See_Comment [Aut omated message] The = 4763) system which ge nerated this result tra nsmitted reference range : 3.5 - 5.2 gm/dL. The refe rence range was not used to interpret this result as normal/abnormal . [facility] Station[facility] Foksi4155-56-72 20:32:07 Test Item Value Reference Range Interpretation Comments Albumin Lvl (test code 4.1 See_Comment [Aut omated message] The = 4763) system which ge nerated this result tra nsmitted reference range : 3.5 - 5.2 gm/dL. The refe rence range was not used to interpret this result as normal/abnormal . [facility] Station[facility] Reepf7099-03-59 20:32:07 Test Item Value Reference Range Interpretation Comments Albumin Lvl (test code 4.1 See_Comment [Aut omated message] The = 4763) system which ge nerated this result tra nsmitted reference range : 3.5 - 5.2 gm/dL. The refe rence range was not used to interpret this result as normal/abnormal . [facility] Station[facility] Bfmrg9082-65-80 20:32:07 Test Item Value Reference Range Interpretation Comments Albumin Lvl (test code 4.1 See_Comment [Aut omated message] The = 9164) system which ge nerated this result tra nsmitted reference range : 3.5 - 5.2 gm/dL. The refe rence range was not used to interpret this result as normal/abnormal . [facility] StationAspartate Aminotransferase 2021-05-22 20:32:06 Test Item Value Reference Range Interpretation Comments AST (test code = 19 U/L See_Comment [Automated message] The 1919-10) system which ge nerated this result transmit esteban reference range : <=40. The reference range was not used to interpr et this result as cuate l/abnormal. [facility] Station[facility] Aminotransferase 2021-05-22 20:32:06 Test Item Value Reference Range Interpretation Comments AST (test code = 19 U/L See_Comment [Automated message] The 1919-10) system which ge nerated this result transmit esteban reference range : <=40. The reference range was not used to interpr et this result as cuate l/abnormal. [facility] Station[facility] Aminotransferase 2021-05-22 20:32:06 Test Item Value Reference Range Interpretation Comments AST (test code = 19 U/L See_Comment [Automated message] The 1919-10) system which ge nerated this result transmit esteban reference range : <=40. The reference range was not used to interpr et this result as cuate l/abnormal. [facility] Station[facility] Aminotransferase 2021-05-22 20:32:06 Test Item Value Reference Range Interpretation Comments AST (test code = 19 U/L See_Comment [Automated message] The 1919-10) system which ge nerated this result transmit esteban reference range : <=40. The reference range was not used to interpr et this result as cuate l/abnormal. [facility] Aminotransferase 2021-05-22 20:32:06 Test Item Value Reference Range Interpretation Comments AST (test code = 19 U/L See_Comment [Automated message] The 1919-10) system which ge nerated this result transmit esteban reference range : <=40. The reference range was not used to interpr et this result as cuate l/abnormal. [facility] Aminotransferase 2021-05-22 20:32:06 Test Item Value Reference Range Interpretation Comments AST (test code = 19 U/L See_Comment [Automated message] The 1919-10) system which ge nerated this result transmit esteban reference range : <=40. The reference range was not used to interpr et this result as cuate l/abnormal. [facility] Aminotransferase 2021-05-22 20:32:06 Test Item Value Reference Range Interpretation Comments AST (test code = 19 U/L See_Comment [Automated message] The 1919-10) system which ge nerated this result transmit esteban reference range : <=40. The reference range was not used to interpr et this result as cuate l/abnormal. [facility] Station[facility]2022-03-11 20:05:31 Test Item Value Reference Range Interpretation Comments Neutrophil % (test code = 77.0 % 42.0-66.0 H 770-8) Lymphocyte % (test code = 11.6 % 24.0-44.0 L 736-9) Monocyte % (test code = 9.2 % 2.0-7.0 H 5905-5) Eosinophil % (test code = 1.2 % 1.0-4.0 713-8) Basophil % (test code = 0.6 % 0.0-1.0 09411-9) IGRE % (test code = 0.4 % 0.0-0.4 IGRE % c ount 72237-0) includes Metamyelocytes, Myelocytes, and Promyelocytes. Neutrophil Abs (test code 5.16 K/uL 1.70-7.30 = 751-8) Lymphocyte Abs (test code 0.78 K/uL 1.00-4.80 L = 731-0) Monocyte Abs (test code = 0.62 K/uL 0.08-0.70 742-7) Eosinophil Abs (test code 0.08 K/uL 0.04-0.40 = 711-2) Basophil Abs (test code = 0.04 K/uL 0.00-0.10 704-7) IG Abs (test code = 0.03 K/uL 0.00-0.04 40163-2) Lab Interpretation (test Abnormal code = 40581-6) [facility]2022-[facility]-11 20:05:31 Test Item Value Reference Range Interpretation Comments Neutrophil % (test code = 77.0 % 42.0-66.0 H 770-8) Lymphocyte % (test code = 11.6 % 24.0-44.0 L 736-9) Monocyte % (test code = 9.2 % 2.0-7.0 H 5905-5) Eosinophil % (test code = 1.2 % 1.0-4.0 713-8) Basophil % (test code = 0.6 % 0.0-1.0 66315-2) IGRE % (test code = 0.4 % 0.0-0.4 IGRE % c ount 42252-3) includes Metamyelocytes, Myelocytes, and Promyelocytes. Neutrophil Abs (test code 5.16 K/uL 1.70-7.30 = 751-8) Lymphocyte Abs (test code 0.78 K/uL 1.00-4.80 L = 731-0) Monocyte Abs (test code = 0.62 K/uL 0.08-0.70 742-7) Eosinophil Abs (test code 0.08 K/uL 0.04-0.40 = 711-2) Basophil Abs (test code = 0.04 K/uL 0.00-0.10 704-7) IG Abs (test code = 0.03 K/uL 0.00-0.04 46463-0) Lab Interpretation (test Abnormal code = 89624-3) [facility]2022[facility]-11 20:05:31 Test Item Value Reference Range Interpretation Comments Neutrophil % (test code = 77.0 % 42.0-66.0 H 770-8) Lymphocyte % (test code = 11.6 % 24.0-44.0 L 736-9) Monocyte % (test code = 9.2 % 2.0-7.0 H 5905-5) Eosinophil % (test code = 1.2 % 1.0-4.0 713-8) Basophil % (test code = 0.6 % 0.0-1.0 36975-1) IGRE % (test code = 0.4 % 0.0-0.4 IGRE % c ount 28469-4) includes Metamyelocytes, Myelocytes, and Promyelocytes. Neutrophil Abs (test code 5.16 K/uL 1.70-7.30 = 751-8) Lymphocyte Abs (test code 0.78 K/uL 1.00-4.80 L = 731-0) Monocyte Abs (test code = 0.62 K/uL 0.08-0.70 742-7) Eosinophil Abs (test code 0.08 K/uL 0.04-0.40 = 711-2) Basophil Abs (test code = 0.04 K/uL 0.00-0.10 704-7) IG Abs (test code = 0.03 K/uL 0.00-0.04 98899-3) Lab Interpretation (test Abnormal code = 65405-4) [facility] CfndqgDecfuasydrvl1286-94-24 20:05:31 Test Item Value Reference Range Interpretation Comments Neutrophil % (test code = 77.0 % 42.0-66.0 H 770-8) Lymphocyte % (test code = 11.6 % 24.0-44.0 L 736-9) Monocyte % (test code = 9.2 % 2.0-7.0 H 5905-5) Eosinophil % (test code = 1.2 % 1.0-4.0 713-8) Basophil % (test code = 0.6 % 0.0-1.0 31690-3) IGRE % (test code = 0.4 % 0.0-0.4 IGRE % c ount 72016-0) includes Metamyelocytes, Myelocytes, and Promyelocytes. Neutrophil Abs (test code 5.16 K/uL 1.70-7.30 = 751-8) Lymphocyte Abs (test code 0.78 K/uL 1.00-4.80 L = 731-0) Monocyte Abs (test code = 0.62 K/uL 0.08-0.70 742-7) Eosinophil Abs (test code 0.08 K/uL 0.04-0.40 = 711-2) Basophil Abs (test code = 0.04 K/uL 0.00-0.10 704-7) IG Abs (test code = 0.03 K/uL 0.00-0.04 17176-8) Lab Interpretation (test Abnormal code = 84193-3) [facility] 20:05:31 Test Item Value Reference Range Interpretation Comments Neutrophil % (test code = 77.0 % 42.0-66.0 H 770-8) Lymphocyte % (test code = 11.6 % 24.0-44.0 L 736-9) Monocyte % (test code = 9.2 % 2.0-7.0 H 5905-5) Eosinophil % (test code = 1.2 % 1.0-4.0 713-8) Basophil % (test code = 0.6 % 0.0-1.0 25633-6) IGRE % (test code = 0.4 % 0.0-0.4 IGRE % c ount 82101-5) includes Metamyelocytes, Myelocytes, and Promyelocytes. Neutrophil Abs (test code 5.16 K/uL 1.70-7.30 = 751-8) Lymphocyte Abs (test code 0.78 K/uL 1.00-4.80 L = 731-0) Monocyte Abs (test code = 0.62 K/uL 0.08-0.70 742-7) Eosinophil Abs (test code 0.08 K/uL 0.04-0.40 = 711-2) Basophil Abs (test code = 0.04 K/uL 0.00-0.10 704-7) IG Abs (test code = 0.03 K/uL 0.00-0.04 48139-0) Lab Interpretation (test Abnormal code = 21857-7) [facility] 20:05:31 Test Item Value Reference Range Interpretation Comments Neutrophil % (test code = 77.0 % 42.0-66.0 H 770-8) Lymphocyte % (test code = 11.6 % 24.0-44.0 L 736-9) Monocyte % (test code = 9.2 % 2.0-7.0 H 5905-5) Eosinophil % (test code = 1.2 % 1.0-4.0 713-8) Basophil % (test code = 0.6 % 0.0-1.0 42726-3) IGRE % (test code = 0.4 % 0.0-0.4 IGRE % c ount 09962-7) includes Metamyelocytes, Myelocytes, and Promyelocytes. Neutrophil Abs (test code 5.16 K/uL 1.70-7.30 = 751-8) Lymphocyte Abs (test code 0.78 K/uL 1.00-4.80 L = 731-0) Monocyte Abs (test code = 0.62 K/uL 0.08-0.70 742-7) Eosinophil Abs (test code 0.08 K/uL 0.04-0.40 = 711-2) Basophil Abs (test code = 0.04 K/uL 0.00-0.10 704-7) IG Abs (test code = 0.03 K/uL 0.00-0.04 87900-2) Lab Interpretation (test Abnormal code = 86031-5) [facility] PiqjbrVnvsonwulkdf6099-09-10 20:05:31 Test Item Value Reference Range Interpretation Comments Neutrophil % (test code = 77.0 % 42.0-66.0 H 770-8) Lymphocyte % (test code = 11.6 % 24.0-44.0 L 736-9) Monocyte % (test code = 9.2 % 2.0-7.0 H 5905-5) Eosinophil % (test code = 1.2 % 1.0-4.0 713-8) Basophil % (test code = 0.6 % 0.0-1.0 43641-6) IGRE % (test code = 0.4 % 0.0-0.4 IGRE % c ount 55194-2) includes Metamyelocytes, Myelocytes, and Promyelocytes. Neutrophil Abs (test code 5.16 K/uL 1.70-7.30 = 751-8) Lymphocyte Abs (test code 0.78 K/uL 1.00-4.80 L = 731-0) Monocyte Abs (test code = 0.62 K/uL 0.08-0.70 742-7) Eosinophil Abs (test code 0.08 K/uL 0.04-0.40 = 711-2) Basophil Abs (test code = 0.04 K/uL 0.00-0.10 704-7) IG Abs (test code = 0.03 K/uL 0.00-0.04 04993-0) Lab Interpretation (test Abnormal code = 56815-0) [facility] [place].MLB2200-41-60 20:05:16 Test Item Value Reference Range Interpretation Comments WBC (test code = 6.7 K/uL 4.0-11.0 6690-2) RBC (test code = 789-8) 4.57 See_Comment [Au tomated message] The system [employer] generated this result transmitted ref erence range: 4.50 - 6 .00 M/uL. The refer ence range was not u sed to interpret this result as normal/abnor mal. Hgb (test code = 718-7) 13.5 See_Comment L [Au tomated message] The system [employer] generated this result transmitted ref erence range: 14.0 - 1 8.0 gm/dL. The refe rence range was not u sed to interpret this result as normal/abnor mal. Hct (test code = 42.7 % 40.0-54.0 4544-3) MCV (test code = 787-2) 93 fL 82-98 MCH (test code = 785-6) 29.5 pg 27.0-31.0 MCHC (test code = 31.6 See_Comment [Automate d message] 786-4) The system [employer] generated this result transmitted ref erence range: 31.0 - 3 6.0 gm/dL. The refe rence range was not u sed to interpret this result as normal/abnor mal. RDW-SD (test code = 49.6 fL 35.1-46.3 H 35657-5) RDW-CV (test code = 14.6 % 12.0-15.5 788-0) Platelet count (test 172 K/uL 140-440 code = 777-3) MPV (test code = 11.1 fL 4.0-10.4 H 58205-1) INRBC (test code = 0.0 % See_Comment The INRBC (instrument 42870-6) NRBC) value ref lects the enumeration of nucleated red b lood cells contained in a 200uL sampleof whole blood analyzed by the instrument. Thi s value maydiffer from the NRBC value repo rted in a manual differential,wh ich is based on a 100 cell differential. [Automated mess age] The system [employer] generated this result transmitted ref erence range: <=0.0. T he reference range was not used to int erpret this result as normal/abnormal . Lab Interpretation Abnormal (test code = 75142-8) [facility] [place].JIA6808-22-32 20:05:16 Test Item Value Reference Range Interpretation Comments WBC (test code = 6.7 K/uL 4.0-11.0 6690-2) RBC (test code = 789-8) 4.57 See_Comment [Au tomated message] The system [employer] generated this result transmitted ref erence range: 4.50 - 6 .00 M/uL. The refer ence range was not u sed to interpret this result as normal/abnor mal. Hgb (test code = 718-7) 13.5 See_Comment L [Au tomated message] The system [employer] generated this result transmitted ref erence range: 14.0 - 1 8.0 gm/dL. The refe rence range was not u sed to interpret this result as normal/abnor mal. Hct (test code = 42.7 % 40.0-54.0 4544-3) MCV (test code = 787-2) 93 fL 82-98 MCH (test code = 785-6) 29.5 pg 27.0-31.0 MCHC (test code = 31.6 See_Comment [Automate d message] 786-4) The system [employer] generated this result transmitted ref erence range: 31.0 - 3 6.0 gm/dL. The refe rence range was not u sed to interpret this result as normal/abnor mal. RDW-SD (test code = 49.6 fL 35.1-46.3 H 83903-0) RDW-CV (test code = 14.6 % 12.0-15.5 788-0) Platelet count (test 172 K/uL 140-440 code = 777-3) MPV (test code = 11.1 fL 4.0-10.4 H 66023-7) INRBC (test code = 0.0 % See_Comment The INRBC (instrument 13475-9) NRBC) value ref lects the enumeration of nucleated red b lood cells contained in a 200uL sampleof whole blood analyzed by the instrument. Thi s value maydiffer from the NRBC value repo rted in a manual differential,wh ich is based on a 100 cell differential. [Automated mess age] The system [employer] generated this result transmitted ref erence range: <=0.0. T he reference range was not used to int erpret this result as normal/abnormal . Lab Interpretation Abnormal (test code = 32160-2) [facility] [place].[id number] 20:05:16 Test Item Value Reference Range Interpretation Comments WBC (test code = 6.7 K/uL 4.0-11.0 6690-2) RBC (test code = 789-8) 4.57 See_Comment [Au tomated message] The system [employer] generated this result transmitted ref erence range: 4.50 - 6 .00 M/uL. The refer ence range was not u sed to interpret this result as normal/abnor mal. Hgb (test code = 718-7) 13.5 See_Comment L [Au tomated message] The system [employer] generated this result transmitted ref erence range: 14.0 - 1 8.0 gm/dL. The refe rence range was not u sed to interpret this result as normal/abnor mal. Hct (test code = 42.7 % 40.0-54.0 4544-3) MCV (test code = 787-2) 93 fL 82-98 MCH (test code = 785-6) 29.5 pg 27.0-31.0 MCHC (test code = 31.6 See_Comment [Automate d message] 786-4) The system [employer] generated this result transmitted ref erence range: 31.0 - 3 6.0 gm/dL. The refe rence range was not u sed to interpret this result as normal/abnor mal. RDW-SD (test code = 49.6 fL 35.1-46.3 H 06731-4) RDW-CV (test code = 14.6 % 12.0-15.5 788-0) Platelet count (test 172 K/uL 140-440 code = 777-3) MPV (test code = 11.1 fL 4.0-10.4 H 24379-2) INRBC (test code = 0.0 % See_Comment The INRBC (instrument 88926-6) NRBC) value ref lects the enumeration of nucleated red b lood cells contained in a 200uL sampleof whole blood analyzed by the instrument. Thi s value maydiffer from the NRBC value repo rted in a manual differential,wh ich is based on a 100 cell differential. [Automated mess age] The system [employer] generated this result transmitted ref erence range: <=0.0. T he reference range was not used to int erpret this result as normal/abnormal . Lab Interpretation Abnormal (test code = 38374-6) [facility] [place].[id number] 20:05:16 Test Item Value Reference Range Interpretation Comments WBC (test code = 6.7 K/uL 4.0-11.0 6690-2) RBC (test code = 789-8) 4.57 See_Comment [Au tomated message] The system [employer] generated this result transmitted ref erence range: 4.50 - 6 .00 M/uL. The refer ence range was not u sed to interpret this result as normal/abnor mal. Hgb (test code = 718-7) 13.5 See_Comment L [Au tomated message] The system [employer] generated this result transmitted ref erence range: 14.0 - 1 8.0 gm/dL. The refe rence range was not u sed to interpret this result as normal/abnor mal. Hct (test code = 42.7 % 40.0-54.0 4544-3) MCV (test code = 787-2) 93 fL 82-98 MCH (test code = 785-6) 29.5 pg 27.0-31.0 MCHC (test code = 31.6 See_Comment [Automate d message] 786-4) The system [employer] generated this result transmitted ref erence range: 31.0 - 3 6.0 gm/dL. The refe rence range was not u sed to interpret this result as normal/abnor mal. RDW-SD (test code = 49.6 fL 35.1-46.3 H 06996-8) RDW-CV (test code = 14.6 % 12.0-15.5 788-0) Platelet count (test 172 K/uL 140-440 code = 777-3) MPV (test code = 11.1 fL 4.0-10.4 H 01970-8) INRBC (test code = 0.0 % See_Comment The INRBC (instrument 55735-9) NRBC) value ref lects the enumeration of nucleated red b lood cells contained in a 200uL sampleof whole blood analyzed by the instrument. Thi s value maydiffer from the NRBC value repo rted in a manual differential,wh ich is based on a 100 cell differential. [Automated mess age] The system [employer] generated this result transmitted ref erence range: <=0.0. T he reference range was not used to int erpret this result as normal/abnormal . Lab Interpretation Abnormal (test code = 09162-4) [facility] [place].[id number] 20:05:16 Test Item Value Reference Range Interpretation Comments WBC (test code = 6.7 K/uL 4.0-11.0 6690-2) RBC (test code = 789-8) 4.57 See_Comment [Au tomated message] The system [employer] generated this result transmitted ref erence range: 4.50 - 6 .00 M/uL. The refer ence range was not u sed to interpret this result as normal/abnor mal. Hgb (test code = 718-7) 13.5 See_Comment L [Au tomated message] The system [employer] generated this result transmitted ref erence range: 14.0 - 1 8.0 gm/dL. The refe rence range was not u sed to interpret this result as normal/abnor mal. Hct (test code = 42.7 % 40.0-54.0 4544-3) MCV (test code = 787-2) 93 fL 82-98 MCH (test code = 785-6) 29.5 pg 27.0-31.0 MCHC (test code = 31.6 See_Comment [Automate d message] 786-4) The system [employer] generated this result transmitted ref erence range: 31.0 - 3 6.0 gm/dL. The refe rence range was not u sed to interpret this result as normal/abnor mal. RDW-SD (test code = 49.6 fL 35.1-46.3 H 50594-6) RDW-CV (test code = 14.6 % 12.0-15.5 788-0) Platelet count (test 172 K/uL 140-440 code = 777-3) MPV (test code = 11.1 fL 4.0-10.4 H 53265-7) INRBC (test code = 0.0 % See_Comment The INRBC (instrument 63172-2) NRBC) value ref lects the enumeration of nucleated red b lood cells contained in a 200uL sampleof whole blood analyzed by the instrument. Thi s value maydiffer from the NRBC value repo rted in a manual differential,wh ich is based on a 100 cell differential. [Automated mess age] The system [employer] generated this result transmitted ref erence range: <=0.0. T he reference range was not used to int erpret this result as normal/abnormal . Lab Interpretation Abnormal (test code = 77300-5) [facility] [place].[id number] 20:05:16 Test Item Value Reference Range Interpretation Comments WBC (test code = 6.7 K/uL 4.0-11.0 6690-2) RBC (test code = 789-8) 4.57 See_Comment [Au tomated message] The system [employer] generated this result transmitted ref erence range: 4.50 - 6 .00 M/uL. The refer ence range was not u sed to interpret this result as normal/abnor mal. Hgb (test code = 718-7) 13.5 See_Comment L [Au tomated message] The system [employer] generated this result transmitted ref erence range: 14.0 - 1 8.0 gm/dL. The refe rence range was not u sed to interpret this result as normal/abnor mal. Hct (test code = 42.7 % 40.0-54.0 4544-3) MCV (test code = 787-2) 93 fL 82-98 MCH (test code = 785-6) 29.5 pg 27.0-31.0 MCHC (test code = 31.6 See_Comment [Automate d message] 786-4) The system [employer] generated this result transmitted ref erence range: 31.0 - 3 6.0 gm/dL. The refe rence range was not u sed to interpret this result as normal/abnor mal. RDW-SD (test code = 49.6 fL 35.1-46.3 H 33657-8) RDW-CV (test code = 14.6 % 12.0-15.5 788-0) Platelet count (test 172 K/uL 140-440 code = 777-3) MPV (test code = 11.1 fL 4.0-10.4 H 64834-7) INRBC (test code = 0.0 % See_Comment The INRBC (instrument 61202-1) NRBC) value ref lects the enumeration of nucleated red b lood cells contained in a 200uL sampleof whole blood analyzed by the instrument. Thi s value maydiffer from the NRBC value repo rted in a manual differential,wh ich is based on a 100 cell differential. [Automated mess age] The system [employer] generated this result transmitted ref erence range: <=0.0. T he reference range was not used to int erpret this result as normal/abnormal . Lab Interpretation Abnormal (test code = 62695-8) [facility] [place].[id number] 20:05:16 Test Item Value Reference Range Interpretation Comments WBC (test code = 6.7 K/uL 4.0-11.0 6690-2) RBC (test code = 789-8) 4.57 See_Comment [Au tomated message] The system [employer] generated this result transmitted ref erence range: 4.50 - 6 .00 M/uL. The refer ence range was not u sed to interpret this result as normal/abnor mal. Hgb (test code = 718-7) 13.5 See_Comment L [Au tomated message] The system [employer] generated this result transmitted ref erence range: 14.0 - 1 8.0 gm/dL. The refe rence range was not u sed to interpret this result as normal/abnor mal. Hct (test code = 42.7 % 40.0-54.0 4544-3) MCV (test code = 787-2) 93 fL 82-98 MCH (test code = 785-6) 29.5 pg 27.0-31.0 MCHC (test code = 31.6 See_Comment [Automate d message] 786-4) The system [employer] generated this result transmitted ref erence range: 31.0 - 3 6.0 gm/dL. The refe rence range was not u sed to interpret this result as normal/abnor mal. RDW-SD (test code = 49.6 fL 35.1-46.3 H 02926-9) RDW-CV (test code = 14.6 % 12.0-15.5 788-0) Platelet count (test 172 K/uL 140-440 code = 777-3) MPV (test code = 11.1 fL 4.0-10.4 H 27032-9) INRBC (test code = 0.0 % See_Comment The INRBC (instrument 47431-2) NRBC) value ref lects the enumeration of nucleated red b lood cells contained in a 200uL sampleof whole blood analyzed by the instrument. Thi s value maydiffer from the NRBC value repo rted in a manual differential,wh ich is based on a 100 cell differential. [Automated mess age] The system [employer] generated this result transmitted ref erence range: <=0.0. T he reference range was not used to int erpret this result as normal/abnormal . Lab Interpretation Abnormal (test code = 41056-4) [facility] Troponin [id number] 20:01:26 Test Item Value Reference Range Interpretation Comments POC CTNI (test code 0.17 ng/mL 0.00-0.08 H This cTn I test is = 32963-6) performed by th e Rxnem-wa-Xasp analyzer method ,and the result may be [...] MDA Main Main Ca mpus code = 31606) [facility] nical Lab, [address] [place] [address]; Teasel Setter: Nancie Stafford MD Lab Interpretation Abnormal (test code = 22127-9) [facility] Troponin [id number] 20:01:26 Test Item Value Reference Range Interpretation Comments POC CTNI (test code 0.17 ng/mL 0.00-0.08 H [place] cTn I test is = 76492-9) performed by th e Ezorj-zy-Bmvb analyzer method ,and the result may be [...] the concentration o f cTnI within the [facility] le. POC Clean Dev (test Yes code = 6672) Performing Lab (test [facility] mpus code = 42445) [facility] nical Lab, [address] [place] [address]; Teasel Setter: Nancie Stafford MD Lab Interpretation Abnormal (test code = 10443-7) [facility] Troponin [id number] 20:01:26 Test Item Value Reference Range Interpretation Comments POC CTNI (test code 0.17 ng/mL 0.00-0.08 H This cTn I test is = 23049-4) performed by [facility] Mvtef-lo-Uldf analyzer method ,and the result may be [...] immunosorbent a ssay (SNEHA) method. Antibodies spec [facility] cardi ac troponin I [...] the concentration o f [facility]nI [facility]. POC Clean Dev (test Yes code = 6672) Performing Lab (test [facility] Ca mpus code = 89279) [facility] [address] [facility] [place] [address]; Teasel Setter: Nancie Stafford MD Lab Interpretation Abnormal (test code = 22501-2) [facility] Troponin [id number] 20:01:26 Test Item Value Reference Range Interpretation Comments POC CTNI (test code 0.17 ng/mL 0.00-0.08 H This cTn I test is = 28753-6) performed by e Dcxqt-jx-Ocns analyzer method ,and the result may be [...] immunosorbent a ssay (SNEHA) method. Antibodies spec [facility] cardi ac troponin I [...] MDA Main Main Ca mpus code = 31064) [facility] nical Lab, [address] [place], [place] [address] [address]; Teasel Setter: Nancie Stafford MD Lab Interpretation Abnormal (test code = 87140-0) [facility] Troponin [id number] 20:01:26 Test Item Value Reference Range Interpretation Comments POC CTNI (test code 0.17 ng/mL 0.00-0.08 H This cTn I test is = 30647-2) performed by th e Qrmwx-ag-Xhlj analyzer method ,and the result may be different from the Clinical LaboratoryMetho d. Abnormal test r esults are recommended for confirmatorytes t by Clinical labora tory method. Patient s with normal testresu lts but clinically suspicious for acute myocardial infarctionshoul d be tested by Clin adilene Laboratory meth od. Method descript ion: [...] MDA Main Main Ca mpus code = 63014) [facility] nical Lab, [address] [place] [address]; Teasel Setter: Nancie Stafford MD Lab Interpretation Abnormal (test code = 91301-6) [facility] Troponin [id number] 20:01:26 Test Item Value Reference Range Interpretation Comments POC CTNI (test code 0.17 ng/mL 0.00-0.08 H This cTn I test is = 29340-9) performed by th e Evheb-os-Kwpn analyzer method ,and the result may be [...] the concentration o f [facility]TnI [facility]. POC Clean Dev (test Yes code = 6672) Performing Lab (test [facility] Main Main Ca mpus code = 72296) [facility], [address] [facility] [place] [address]; Teasel Setter: Nancie Stafford MD Lab Interpretation Abnormal (test code = 35087-2) [facility] Troponin [id number] 20:01:26 Test Item Value Reference Range Interpretation Comments POC CTNI (test code 0.17 ng/mL 0.00-0.08 H This cTn I test is = 25122-7) performed by e Wwqgk-az-Qwsh analyzer method ,and the result may be [...] immunosorbent a ssay (SNEHA) method. Antibodies spec [facility] cardi ac troponin I [...] the concentration o f [facility]TnI [facility]. POC Clean Dev (test Yes code = 6672) Performing Lab (test [facility] Main Main Ca mpus code = 75353) [facility], [address] [facility] [place] [address]; Teasel Setter: Nancie Stafford MD Lab Interpretation Abnormal (test code = 95252-5) [facility] 2020-06-30 00:00:00 Test Item Value Reference Range Interpretation Comments GLUCOSE (test code = 2217) 95 MG/DL BUN (test code = 2208) 24 MG/DL CREATININE (test code = 2214) 0.83 MG/DL eGFR AMER. (test code 98 ML/MIN/1.73 = 57551) eGFR NON- AMER. (test 84 ML/MIN/1.73 code = 64068) CALC BUN/CREAT (test code = 29 RATIO [...] code = 2219) 22 U/L COMPREHENSIVE METABOLIC [id number] 00:00:00 Test Item Value Reference Range Interpretation Comments GLUCOSE (test code = 2217) 95 MG/DL BUN (test code = 2208) 24 MG/DL CREATININE (test code = 2214) 0.83 MG/DL eGFR AMER. (test code 98 ML/MIN/1.73 = 77667) eGFR NON- AMER. (test 84 ML/MIN/1.73 code = 22813) CALC BUN/CREAT (test code = 29 RATIO [...] (test code = 2219) 22 U/L LIPID [id number] 00:00:00 Test Item Value Reference Range Interpretation Comments CHOLESTEROL (test code = 2210) 186 MG/DL TRIGLYCERIDES (test code = 2232) 102 MG/DL HDL CHOLESTEROL (test code = 2220) 64 MG/DL CALC LDL CHOL (test code = 2237) 102 MG/DL RISK RATIO LDL/HDL (test code = 1.59 RATIO 2238) LIPID [id number] 00:00:00 Test Item Value Reference Range Interpretation Comments CHOLESTEROL (test code = 2210) 186 MG/DL TRIGLYCERIDES (test code = 2232) 102 MG/DL HDL CHOLESTEROL (test code = 2220) 64 MG/DL CALC LDL CHOL (test code = 2237) 102 MG/DL RISK RATIO LDL/HDL (test code = 1.59 RATIO 2238) COMPREHENSIVE METABOLIC [id number] 00:00:00 Test Item Value Reference Range Interpretation Comments GLUCOSE (test code = 2217) 95 MG/DL BUN (test code = 2208) 24 MG/DL CREATININE (test code = 2214) 0.83 MG/DL eGFR AMER. (test code 98 ML/MIN/1.73 = 50037) eGFR NON- AMER. (test 84 ML/MIN/1.73 code = 91526) CALC BUN/CREAT (test code = 29 RATIO [...] code = 2219) 22 U/L COMPREHENSIVE METABOLIC [id number] 00:00:00 Test Item Value Reference Range Interpretation Comments GLUCOSE (test code = 2217) 95 MG/DL BUN (test code = 2208) 24 MG/DL CREATININE (test code = 2214) 0.83 MG/DL eGFR AMER. (test code 98 ML/MIN/1.73 = 30336) eGFR NON- AMER. (test 84 ML/MIN/1.73 code = 52923) CALC BUN/CREAT (test code = 29 RATIO [...] (test code = 2219) 22 U/L LIPID [id number] 00:00:00 Test Item Value Reference Range Interpretation Comments CHOLESTEROL (test code = 2210) 186 MG/DL TRIGLYCERIDES (test code = 2232) 102 MG/DL HDL CHOLESTEROL (test code = 2220) 64 MG/DL CALC LDL CHOL (test code = 2237) 102 MG/DL RISK RATIO LDL/HDL (test code = 1.59 RATIO 2238) LIPID [id number] 00:00:00 Test Item Value Reference Range Interpretation Comments CHOLESTEROL (test code = 2210) 186 MG/DL TRIGLYCERIDES (test code = 2232) 102 MG/DL HDL CHOLESTEROL (test code = 2220) 64 MG/DL CALC LDL CHOL (test code = 2237) 102 MG/DL RISK RATIO LDL/HDL (test code = 1.59 RATIO 2238) CBC W/AUTO [id number] 00:00:00 Test Item Value Reference Range Interpretation [...] code = 1015) 214 K/UL CBC W/AUTO [id number] 00:00:00 Test Item Value Reference Range Interpretation [...] code = 1015) 214 K/UL CBC W/AUTO [id number] 00:00:00 Test Item Value Reference Range Interpretation [...] code = 1015) 214 K/UL CBC W/AUTO [id number] 00:00:00 Test Item Value Reference Range Interpretation [...] code = 1015) 214 K/UL CBC W/AUTO [id number] 00:00:00 Test Item Value Reference Range Interpretation [...] code = 1015) 214 K/UL CBC W/AUTO [id number] 00:00:00 Test Item Value Reference Range Interpretation [...] (test code = 1015) 214 K/UL PSA, [id number] 00:00:00 Test Item Value Reference Range Interpretation Comments PSA, TOTAL (test code = 2606) 16.70 NG/ML PSA, [id number] 00:00:00 Test Item Value Reference Range Interpretation Comments PSA, TOTAL (test code = 2606) 16.70 NG/ML PSA, [id number] 00:00:00 Test Item Value Reference Range Interpretation Comments PSA, TOTAL (test code = 2606) 16.70 NG/ML HEMOGLOBIN [id number] 00:00:00 Test Item Value Reference Range Interpretation Comments HEMOGLOBIN A1c (test code = 90062) 5.5 % HEMOGLOBIN [id number] 00:00:00 Test Item Value Reference Range Interpretation Comments HEMOGLOBIN A1c (test code = 59470) 5.5 % HEMOGLOBIN [id number] 00:00:00 Test Item Value Reference Range Interpretation Comments HEMOGLOBIN A1c (test code = 45731) 5.5 % CBC W/AUTO [id number] 00:00:00 Test Item Value Reference Range Interpretation [...] code = 1015) 172 K/UL CBC W/AUTO [id number] 00:00:00 Test Item Value Reference Range Interpretation [...] code = 1015) 172 K/UL CBC W/AUTO [id number] 00:00:00 Test Item Value Reference Range Interpretation [...] code = 1015) 172 K/UL COMPREHENSIVE METABOLIC [id number] 00:00:00 Test Item Value Reference Range Interpretation Comments GLUCOSE (test code = 2217) 98 MG/DL BUN (test code = 2208) 15 MG/DL CREATININE (test code = 2214) 0.86 MG/DL eGFR AMER. (test code 96 ML/MIN/1.73 = 67540) eGFR NON- AMER. (test 83 ML/MIN/1.73 code = 54881) CALC BUN/CREAT (test code = 17 RATIO [...] code = 2219) 17 U/L COMPREHENSIVE METABOLIC [id number] 00:00:00 Test Item Value Reference Range Interpretation Comments GLUCOSE (test code = 2217) 98 MG/DL BUN (test code = 2208) 15 MG/DL CREATININE (test code = 2214) 0.86 MG/DL eGFR AMER. (test code 96 ML/MIN/1.73 = 93711) eGFR NON- AMER. (test 83 ML/MIN/1.73 code = 08621) CALC BUN/CREAT (test code = 17 RATIO [...] (test code = 2219) 17 U/L LIPID [id number] 00:00:00 Test Item Value Reference Range Interpretation Comments CHOLESTEROL (test code = 2210) 147 MG/DL TRIGLYCERIDES (test code = 2232) 82 MG/DL HDL CHOLESTEROL (test code = 2220) 58 MG/DL CALC LDL CHOL (test code = 2237) 73 MG/DL RISK RATIO LDL/HDL (test code = 1.26 RATIO 2238) LIPID [id number] 00:00:00 Test Item Value Reference Range Interpretation Comments CHOLESTEROL (test code = 2210) 147 MG/DL TRIGLYCERIDES (test code = 2232) 82 MG/DL HDL CHOLESTEROL (test code = 2220) 58 MG/DL CALC LDL CHOL (test code = 2237) 73 MG/DL RISK RATIO LDL/HDL (test code = 1.26 RATIO 2238) PSA, [id number] 00:00:00 Test Item Value Reference Range Interpretation Comments PSA, TOTAL (test code = 2606) 16.70 NG/ML PSA, [id number] 00:00:00 Test Item Value Reference Range Interpretation Comments PSA, TOTAL (test code = 2606) 16.70 NG/ML PSA, [id number] 00:00:00 Test Item Value Reference Range Interpretation Comments PSA, TOTAL (test code = 2606) 16.70 NG/ML HEMOGLOBIN [id number] 00:00:00 Test Item Value Reference Range Interpretation Comments HEMOGLOBIN A1c (test code = 99190) 5.5 % HEMOGLOBIN [id number] 00:00:00 Test Item Value Reference Range Interpretation Comments HEMOGLOBIN A1c (test code = 26354) 5.5 % HEMOGLOBIN [id number] 00:00:00 Test Item Value Reference Range Interpretation Comments HEMOGLOBIN A1c (test code = 24421) 5.5 % CBC W/AUTO [id number] 00:00:00 Test Item Value Reference Range Interpretation [...] code = 1015) 172 K/UL CBC W/AUTO [id number] 00:00:00 Test Item Value Reference Range Interpretation [...] code = 1015) 172 K/UL CBC W/AUTO [id number] 00:00:00 Test Item Value Reference Range Interpretation [...] code = 1015) 172 K/UL COMPREHENSIVE METABOLIC [id number] 00:00:00 Test Item Value Reference Range Interpretation Comments GLUCOSE (test code = 2217) 98 MG/DL BUN (test code = 2208) 15 MG/DL CREATININE (test code = 2214) 0.86 MG/DL eGFR AMER. (test code 96 ML/MIN/1.73 = 73946) eGFR NON- AMER. (test 83 ML/MIN/1.73 code = 00754) CALC BUN/CREAT (test code = 17 RATIO [...] code = 2219) 17 U/L COMPREHENSIVE METABOLIC [id number] 00:00:00 Test Item Value Reference Range Interpretation Comments GLUCOSE (test code = 2217) 98 MG/DL BUN (test code = 2208) 15 MG/DL CREATININE (test code = 2214) 0.86 MG/DL eGFR AMER. (test code 96 ML/MIN/1.73 = 51322) eGFR NON- AMER. (test 83 ML/MIN/1.73 code = 21187) CALC BUN/CREAT (test code = 17 RATIO [...] (test code = 2219) 17 U/L LIPID [id number] 00:00:00 Test Item Value Reference Range Interpretation Comments CHOLESTEROL (test code = 2210) 147 MG/DL TRIGLYCERIDES (test code = 2232) 82 MG/DL HDL CHOLESTEROL (test code = 2220) 58 MG/DL CALC LDL CHOL (test code = 2237) 73 MG/DL RISK RATIO LDL/HDL (test code = 1.26 RATIO 2238) LIPID [id number] 00:00:00 Test Item Value Reference Range Interpretation Comments CHOLESTEROL (test code = 2210) 147 MG/DL TRIGLYCERIDES (test code = 2232) 82 MG/DL HDL CHOLESTEROL (test code = 2220) 58 MG/DL CALC LDL CHOL (test code = 2237) 73 MG/DL RISK RATIO LDL/HDL (test code = 1.26 RATIO 2238) SURGICAL PATHOLOGY [id number] 16:36:00 Test Item Value Reference Range Interpretation Comments Case Report (test code Surgical Pathology ? ? = [id number]) ?Case: [id number] ? Authorizing Provider: ?Pako Lopez MD ?Collected: ? 09/14/2019 1052 ?Ordering Location: ? ? [facility], Clear Received: ?09/14/2019 1413 ? Martin Villanova ?Pathologist: ? Mitch Perez, MD ?Specimens: ? [...] Right mid base ? Final Diagnosis (test [id number] code = [id number]) FuZzEwMzNcZnRuYmpcdWMx LBoooaKxMAycg6LyD9CqAs AwMFxhbnNpXGRlZmxhbmcx ARAlNVX7yuVnWHAhTJmzWM BhEJaiVw0prOJqcLhhJlZy CKNog1saomZJfuzpgKr7d3 pxHOLgHhN6mLXvEZpuM7gf zfZqgTSnUUVzSMl4mY01BI PheT3foJKrPSokqvMvNsA0 CBswUJNzBhW0AHCmeZOaWT PtC9yhGKRhCHwrTKThKBqm lAHkAXZ7gVzwb7N2nOLydR EdcCtaJnOeTmXvWCTJr0Sw POg9jVycP4BlJIKbNjH5rV QgUGFyYWdyYXBoIEZvbnQ7 fJ18PFocbmU1xLMkd7Vaz6 7fj409rX0znKEgFZI7KWAt NRMwjOFmQOSdKFB4DPTklF HoV9frLSqhYG4nhzsfFKZ8 MFxtYXJndDcyMFxtYXJnYj IcmRNlSEAwmVcaDGfkq407 HXA5JaBiPB2wV3Qac2V8qG 9maXRcZGVmdGFiNzIwXGZv cj6ybGQgSRjes5RcTHI0yi D3hYAuyQFkCXWvQH16Bigb l0CsLkvnEMC1RUKvobKmk3 Eml1kwDzLjqxQbJ7cxV6Bp ZHJoZWFkXHBnYnJkcmZvb3 Hsh0SklOGinUa5f5hbAIOb AMGftHxpv8fpBHE4TWBeT2 R3xFXbj2vfEKjzCCZeyLU9 bmQcONSqrHWeL2YypD9yLI jkLK5zjnj2q1lcGjVxMO9t awhru4vmCTppOGLbPCK7Ic ZfOMSve4BucsanGuZhn4Vf pMTnFFwmX60zk266HHQurt NqP9rtyRDhywecoLOytoxp LUycfoU0WSt3oqNaynjncH xwbGFpblxmMVxmczIwXGxh xucnNFXcFWabP1taDuSmIB AbrDxeRClsw7SsKNYsTKFe KvDnsYVzJGReUHMYQ8VCIN VOTKrVPW8YJLFTOEHSHJaM VEVSQUwgQVBFWCwgTkVFRE zVTKDDI2CKGErlcIeskK1b JcTzXaJqOhboBU7cHAZqX8 rscIJxAOLyTWCdW7llEaFo vM1lwWsqHRpyNvVwOkJyQz lrLTMrnHbsgV3pChMcBgAz SYtdJY0xNNFlZ2glqPFxPF JsMFQhN3qrQtJfiN9wiWsu MVxmczIwICAgICAgLSBQUk 8DCVUFSXHaCORXYe1HESNO BA1FURGyBAbVIVNKE07wE3 NPUkUgNyAoNCszKVxwbGFp blxmMVxmczIyXGxhbmcxMD KxJFthB2xsKpVlJVAzrTtl TTzjk0GtDAYpACNsGfvxlf IyXHBhclxwbGFpblxmMVxm czIwXGxhbmcxMDMzXGhpY2 vqWeDgQQQxjGtwGWohl1Ip XGYxXGZzMjAgICAgICAtIE dKASEHIFbUX8CZQBZqhOeq pY9rQlKcZlAkJkorJU2zWJ ZkS3nokUNeZSZcKQCxV3bo ZvPfiV4rlJveIQdsIcEyDs BhXrfzVYCanMmhmT9nKmLx YbLcWXjmRC3mXBCnJ4xheH JcWRLcRUHoG8anEhDdiH9j aFxmMVxmczIwICAgICAgLS GVWPJMTW2ZGUbDCY0JMNnS JRCQH46mUPHQNKLSCxP9Vc F9IWSsEXCoCUogWHNfMMOa MjJcbGFuZzEwMzNcaGljaF soOIkqTkKgHIIeUThxG9rx AfIaI8LlLGOiCwKebEPxVE BsYWluXGYxXGZzMjBcbGFu ZzEwMzNcaGljaFxmMVxkYm EwDOUqBLurJ1nfVcJuZrXo LXNcROBxSO8jUZYVL3WfNZ 5SZ9yNMRHmYWMRU5MWJMGP QNM6PJBzX2PaDZfXWKLWX0 QPFODLFRBRXJ3BEOrmbLUd blxmMVxmczIyXGxhbmcxMD IbXBzjD0huWfEuFLHnmByf VMrdt4XoCNOaZJGjXbmrkr IyXHBhclxwbGFpblxmMVxm czIwXGxhbmcxMDMzXGhpY2 reTtGeVFNuqZgfXKkka9Pq XGYxXGZzMjAgICAgICAtIF RPVEFMIExJTkVBUiBNSUxM WK1MOTHIYpXTMxKEFSMWGQ OuD92QKNJKASNUDRD3IMPx VP0HIMJyLWenKBZaYANtLc JcbGFuZzEwMzNcaGljaFxm RBfwXiUyGEPpQBirO8ocHm DiE4DxLMMdRqWwdYRoVLIt YWluXGYxXGZzMjBcbGFuZz EwMzNcaGljaFxmMVxkYmNo QCBzGFhhM8awDlDeYbFiUX JnTELgMZ3kDE6JEZmrDDtG HNRHHL5SBWnTJNPEGCDCCC 5TZIVSIgMLKt2IQWuoFPYK TVxwbGFpblxmMVxmczIyXG mgtuetCOGjEKxnQ5znOqAn FBRdzYbiHUbaw3HnGXJfTQ NmMlxmczIyXHBhclxwbGFp blxmMVxmczIwXGxhbmcxMD WtPVudX2kkNeJvTZPjuBsz ITyoh4AdKARdVXZeHsIiDB AgICAtIFBFUklORVVSQUwg EP7YGWNAV04iVu9QDPjPIY 8XPNRRWRGmkJliqM0kSiOw QlRzZpofUN5bCGEtQ9eelF DlZKMvTZIxQ7fiXpPkyY4f aFxmMVxjZjJcZnMyMlxwYX CdOkwhWqTcrRzxlP5xPbOi ZnMyNFxwbGFpblxmMVxmcz GuFSpobcbyDKTvMTczU9we GtFhSUNcmOqsQBuhl2YuBK FjMYLvIuZvrBA5XSPlR0Ao XHBsYWluXGYxXGZzMjJcbG FuZzEwMzNcaGljaFxmMVxk DvEaQQPrFZkgN1plKuYvQ9 YyXGZzMjJccGFyXGZpMFxw yNYvlacsDYiynoV6XLNwQR luXGYxXGZzMjBcbGFuZzEw MzNcaGljaFxmMVxkYmNoXG UkDYifL2btAzHlOrTeNPTR SsNLFt0KAIPGDMEEQNMHZQ gbHASKOWWLPZFPZuCYQJ1Z UMfpQqJCNDmXZHXUQ1HFKU olsIafmM9tGnGyZxRsXxjl BF2mHLNnG6wjgXTjZLGgWD TqR5qfLkXevE0biGbjPDqw ZjJcZnMyMlxwYXJcZmkyNz SmaYlfxJ1gWwRoMqBbDEue bGFpblxmMVxmczIwXGxhbm ksQBHsWVvhX8mmRtWkWNBq iXdkMSmzx4LpFPNrOWJvVi PnXNSQIa0SHVJYLJZgJUYU Yx8FYZSHKI4FTYJiKTjXPS UPJ38tT8BDYwFpXMJcOMyf RUiniPqbzB4tWcMbObNuMg ezNS9aTROdZ3vziNWwRLMx UTYaS5bgTaQzzK3sfNmgSH xjZjJcZnMyMlxwYXJccGxh nN0fViWcKbIhOFpxNH3lEL LnH2radFHpSFBkVZZrM9tp AmMqrA8tzDkmOWldbxNgBK 2rX5YRSPDsH0FWVMZtEPaw bGFpblxmMVxmczIyXGxhbm huUDQrDPypP5voGiRxSFNv dNjeFPxyg2DiBTNeGIJiJb xmczIyXHBhclxwbGFpblxm MVxmczIwXGxhbmcxMDMzXG oyX2ubPpZkKOIioVspWDbv z5QvODTpMWAaHcRmCWXUDb SLRDWOU2IEXZYSSIFIVO2P POCmLGHLK7QMYFceuHLsul xmMVxmczIyXGxhbmcxMDMz GTyjJ4jjBjEsITEtoOkcDD aim2QjZMLbILHiYfwrvhVx XHBhclxwbGFpblxmMVxmcz QkMKfwyndeEYZmBVqtH3kj FgBhKRGcpNuyYAses8YxMR DhPQQaZeArTOZSVA2JGsDZ TlZPTFZFUyAxIENPUkUgQU 6AEZj0AEMtA1LfFWfZPKXN F5LIDMJHFWLLYS2SUSxvfE FpblxmMVxmczIyXGxhbmcx UNAnRIvyP1dsHaViNIIjrF pdYSjuz0XuFEXzQUFsTfkn czIyXHBhclxwbGFpblxmMV xmczIwXGxhbmcxMDMzXGhp K7jiGwOdHSIeuAlhNHfel6 AgLXAdZNReWaFsQMVUA1SL YUBHVZ3TSHFhSGtUNVvWSI FMYsYpA1KaNeXNOHpNTWGC KdQjXGnDJ5YXYcQhWVRDSL xwbGFpblxmMVxmczIyXGxh mciuYAFqEZgbL1ikHkQzMX TmhJyoNGzqg8QeRSBwNJXw MlxmczIyXHBhclxwbGFpbl xmMVxmczIwXGxhbmcxMDMz GRcnW8umWwOnRKFilBcsXN dpe8QuDOSnZBJjAkXoXOMN K5ZLMOPIGS8HQQEeZWyZEW nGFWZKEuIrH4RrT0XDZ2lE X27HFzXrErRRQZesfZIvxh xmMVxmczIyXGxhbmcxMDMz RHscH1lmUqKhSQTwnVqpYO kge6VbUOFvMPMlDkmnufUz XHBhclxwbGFpblxmMVxmcz UjDLcywiehSYCtAFalH5lh QcSmAFSdyHpkTFyde6YjLZ YxXGZzMjAgLSBQRVJJTkVV RaLZDDgJAlOQBJ3XON7MWA BJREVOVElGSUVEXHBhclxw YXJcZmkwXHBsYWluXGYwXG XcYiPziWxvgO7pZvAtZpJf UGdoAG1wYMCvW3fisEFtTM RaBQQwE7ppRuJgkJ1woAdj YCrjouJlKHRwQEPRL3OIOL VDGSoWFK2JTWTHVBQKLQcK VEVSQUwgQkFTRSwgTkVFRE xUJJBKX3IWNGfjbOlxqF4k ZlHdDpIkFcfqEC4wNHBcX9 zaxGDoVLJxLDHsF0ryRyJh nU0kwQniPIkkYaXcUgMsRs pxUIKfNigaKdVzqAomtN0w ZjBcZnMyNFxwbGFpblxmMV xmczIwXGxhbmcxMDMzXGhp G5arQdVcZLYiyBtaAYvdk9 YiCPWeNLClEtLgEAOVDv2U EOLBVPUcJZAFTv7MYYWTVU 5ZWMHkGDkQKMZWQ13qY9WW UkUgOSAoNCsgNSlccGxhaW 3rCqQpTzAqLmznNC9aZLBe J0pmcQLgBCFrNZZgW6szBw BvlO7bxUhjFSnxMwUjBoYj RawcDTGbqFxcpZ6zQhYlZl JuXGqtDD7aDAJbR0tylQQc BIDbUZQtY3lcNvGbnS5zeT jcLHlvimHwAM8rK6OFPNDc J0IUQRQwQWyclNEgauoyCP xmczIyXGxhbmcxMDMzXGhp A3joHzIhXJBpjNnePUnoa6 NoXGYxXGNmMlxmczIyXHBh clxwbGFpblxmMVxmczIwXG xmghxwDKBuVJogH2pjWcWv BMImoSqzALftl7XySPUlTI ScEfRvJRGYOJ4NOjFHVwFF WDOQCrVtPGYYLuZyHG0GEB YvCYHmY4JkSWmXVEJSP3TC RVOFUDBQTL0YOFlwaMFbsl xmMVxmczIyXGxhbmcxMDMz USqiP9aiKfZvWYQjfFghTJ klx1DlHPLiYLZmNarppzAy XHBhclxwbGFpblxmMVxmcz LqCEkuhfveXZHxBYjbS8xy BkGwTHTgoSjaBEkwz4RgKO OyLMLjEzXuWRICP0GPKRTK SU6VKVOhCTlMGOmVXSNYBx XvJ6YjTlLFOXzUEGBPVgSy DWhEK6ADEzKpESGABSoliZ FpblxmMVxmczIyXGxhbmcx WOOjNUrfQ7hdIoKiQJUqmX ghASake3ObINNdNXAqPtnf czIyXHBhclxwbGFpblxmMV xmczIwXGxhbmcxMDMzXGhp I9cwHoCzRHJgcUnoDKluu3 FaFYOfNTMhTsArXUOLQ2RI ZHVCVD7UWZAhYGdSFUpBMC DDBcAbL2PsE4TET6fIR66O CqL7RL2SEXGayyYrDAQCTm lLTSCFACroDX5VSQSHA05s Mv1OPNzHOI1CPXIOIQSolV thwW1pYbKfFvNqYixnBB2b WPZeL8xnzSMrHMYkAVNpC8 guHuXfoR0fcNvdLPynTwVf ZnMyMlxwYXJccGFyXGZpMF ybySDihssyYNbziyW8IGNk YWluXGYxXGZzMjBcbGFuZz EwMzNcaGljaFxmMVxkYmNo LUHrXCviV4buSaRqLmAbUG OJDsMGBp0RYJXIPMAFLKUT RCwgTEVGVCBNSUQgQVBFWC leBkKFBIsPBDQIL1HMUSdg jIhvoA5oMbVbWiQzGhnrKG 3pFCHgX1qqeOEiMFYtTYQh B1tpGiLveM6xwAjgUGldRg JcZnMyMlxwYXJcZmkyNzBc wSnimB7kZaFzPzSgWIkdfI FpblxmMVxmczIwXGxhbmcx ADTlVQcdK8ndNiMvVXVerB qkMIhwe7PgDGMyXQBrPuPm TIGOVV8CT92iWQQON1YCIL zPLSLIQ8INFIPYNMVBIOVU Cp6XABKyCA1BBDVCFGRPSW 9OXHBhclxwYXJcZmkwXHBs YWluXGYwXGZzMjRccGxhaW 1gGmLtCzAqBMwoHP9nNLHy D5jkdIUxRORoPNGkT1hsZh RwtG9yfWozFQbviuSkOMJx BFUKN8ZBABTPCIiKUT1GSX AWCRGZPQ4CREJPUOWhXT4C WKXEVADKPU4XJ8j3ZDWaTB luXGYxXGZzMjJcbGFuZzEw MzNcaGljaFxmMVxkYmNoXG UlPAkcD2bgRlEmU2IzPPRw MjJccGFyXGZpMjcwXHBsYW oiPRHbXTMdMvSsnDoedN0n LcStFwIkFGquII4xZEOkH9 bqcZPhVMAjVCVgE3qkPbHc fA6rqXhkKLyflqNgVK4wNT MIC5WZUPwUNMRVKH6OZ8SZ N8oHY40AIMGBDISZA57ZHO PBB2EVLHixSUDsZOWfQHRa YWluXGYxXGZzMjJcbGFuZz EwMzNcaGljaFxmMVxkYmNo OBNkRJjsW0bpFwMoN8GzBJ ZzMjJccGFyXHBsYWluXGYx XGZzMjBcbGFuZzEwMzNcaG ljaFxmMVxkYmNoXGYxXGxv P9wdFkXiHjFaGVPwPRkMCN MJFWmQX8SSEVJijFddsY2p QkNpKxRlOylxRL2hNLDhN0 adyVGgQSKfLPCtO1gqUgFu dS9iiBqkKBztKaHgArHhNl dnUNDssEnkiU5sXaRpCtAt ENvmJP2jUERrN0gtgZKuPN FiUGJzW2knFxPqpS6bgQsp DVvnncWqJR5iQRQLD3ArTD 9SL8dVRYVdVWSSE4QZKXIM NFNyBUZlN2FaWTaXRGCTY1 UFOJTKZHEBIS4XUUrcoGMa blxmMVxmczIyXGxhbmcxMD VaBGlhR6hbRhChEJQhqAxc QDnpq9MiOGAnVJNwVdlpac IyXHBhclxwbGFpblxmMVxm czIwXGxhbmcxMDMzXGhpY2 gkYsEzDLTidKqvYPzhc7Wm QZVhEDKlUiVaYSEFI9TVYK PCNM4WBEQeLXdMTFcNSQOA NaAbC4QoSpKXFLqMSXBGAz FvZRsMU0RQXvTtHlRPJYce bGFpblxmMVxmczIyXGxhbm wuCTZtPLaaC4czQpYaWHWk fKrbDBhal1FrCQQwHLSrNn xmczIyXHBhclxwbGFpblxm MVxmczIwXGxhbmcxMDMzXG csY1dgOkIwRBLryFvaLRdu j5CfHDQxRXVsLfAoPEIFL0 OBRZPQWN2ITBTjRGgORUxB EXVBUlEiR4MnN6LBR9gSS2 7SGvSmIkHfKE2foCnxuH5u DyAtPyDcNdopBR5zVANzS8 olwOXkRLFyMNFmM4brVgTd jI6fdQgkNDjdSbPfEzCrRo nrJZEfuDmeuY6pHwYfQbDb KCjgGD8eQITzG3buvSFiDD LfGCIgC7icCgHcwS1hlGov CYbtyxKsOV7kIBYPLM3JYY KKYZLROmFDO6dFYzAZL9Wg SURFTlRJRklFRFxwYXJccG FyXGZpMFxwbGFpblxmMFxm hwO3MBAjAKgaRZZfQNKyXu BcbGFuZzEwMzNcaGljaFxm XOekOtEeDRGgKSfiP7uxUk NbGtWmOCXVEhWIJy6SMSLC RSBHTEFORCwgTEVGVCBNSU QgQkFTRSwgTkVFRExFIEJJ A6FYXMmroVksbP9fXpRoYg EfExtuUO1rPZUiV5ffxGUu VUKsSUIsU6sgZgYseX5lfN xmMVxjZjJcZnMyMlxwYXJc cGFyZFxwbGFpblxmMFxmcz H8KDNnLVavGGKxBFJaMyBa bGFuZzEwMzNcaGljaFxmMV isKiYjCKXxMChyT7ywQoFl IxWsIAKjISSoAR0dWfBLUY aXYJIXQ2TCXCWBDfEBGZNM GDFfpWQnHNReKklnSEz8vd BhclxxbFxwbGFpblxmMFxm uiS8DHMqLJiuYHAcXHSuUq BcbGFuZzEwMzNcaGljaFxm ABdmMrMgRAKaCAitW7unXm FcZnMyMFxwYXJcZmkwXHBs YWluXGYwXGZzMjRccGxhaW 4iObHqDaNlDStbZL7cBYZa I3rrzLHvFXUjRHPbG7enSm AaqV5thVkgSTtcgqDjJUvr RLPUG9LXHMAGKBiFLS0QCB BSSUdIVCBMQVRFUkFMIEFQ EWxkTE1PKPWCOFYPHA4SI9 t3XJAhGCfbWLWvNERzVyAm bGFuZzEwMzNcaGljaFxmMV eyVjAoTQXzCMdkM2juBuGw J1ScTSWtVyVrqHTlYIHrfp AawBzjlM4jKmRvRiEnRFom bGFpblxmMVxmczIwXGxhbm wkBYMpDDheG8qnCtFsECHa eKduMQkrx5NcEIJhZGIiAy AgICAgICAtIEJFTklHTiBQ Hf8FBCZGSULuVQkNN3YDXQ rGYKxzR5rMN90XEnFSMtBU LA4JSSNRB52zqYRvEWKnMb xaAWp2unRsmcaboWpnjQOs xujiTPtksfF1CNVpOWqpAL YxXGZzMjBcbGFuZzEwMzNc aGljaFxmMVxkYmNoXGYxXG obO4igMkBiHgIxQAgnKFDm ZmkwXHBsYWluXGYwXGZzMj FonMprfJ5lKfSjOsPlAAlf PN4bXFXtC2mfqKMkLUFvDU DzC9oeWhHdkE0idCvnYXzr eaPeLBlaDGVRM9DFAGVVBZ cHAU9KGNYROVcFSUUVFIXA GyOCBZ6MBHnhWnHWCZbSEI CTQ9BXOKtzhZjcyW7dMlXv PiIwUzsoNQ3tEGGaJ6gdsT AjSMEvAANzU0idYfDddG8j aFxmMVxjZjJcZnMyMlxwYX WtKciwBzGlhBrbnR3kYhBe ZnMyNFxwbGFpblxmMVxmcz ReAMphglslLSFpUJaaB1kr AdDzHIRqqBhlPJmwp2TgPX HaOTKmSePiLJPOSy6DZXKA MKZwOJENUt7XTCPVKT7DEL MjWPiFVRNBF33hM1FPEzAf FdSxMwqpKsmetEkxlB7wNp ExZqPwOoirDJ6vDQApV2bg qJVtYRGvBDYvE5xkCpOsdW 9jaFxmMVxjZjJcZnMyMlxw MENtgIvobP4hMaZeZuOuMO tgQW6rPQQrT2oygXDfNXPq MOTrF3hyArLhmC6xrCmrQY wkfmDrFM7uZ2SWAEJuZ2HX VVAgMVxwbGFpblxmMVxmcz WmQUikxxuyWLFgHZgkQ5pc ZcBkREGsaSndUZogp3DgPQ YxXGNmMlxmczIyXHBhclxw bGFpblxmMVxmczIwXGxhbm tkRCNoWZyoU4glUbKpGVBo wCrxJTznu2VyPJMxTXHqAp NmIJBWGZ0NMfFHNkDPEESF OvXlNXVOFtRyRX6IBOugTB VYSkZVCMBiICwGO4HGNPSB FQ6VMjVJXCWvZZeqCXGuGW ZzMjJcbGFuZzEwMzNcaGlj aFxmMVxkYmNoXGYxXGxvY2 agOiXgX6BvQRPmShLrkCJy XHBsYWluXGYxXGZzMjBcbG FuZzEwMzNcaGljaFxmMVxk EuDzDIHkHCkxU1vwYnNnKq MyMCAtIFRPVEFMIExJTkVB NrMDOSjCTH0GJKQTRkEOVm ZXLCIKRLHtT47MMFMASZUM ZSS0ROJ0IT2MVZTeDRkfFB YxXGZzMjJcbGFuZzEwMzNc aGljaFxmMVxkYmNoXGYxXG yrG6epTqDqK7CaLYYwZqQd cGFyXHBsYWluXGYxXGZzMj BcbGFuZzEwMzNcaGljaFxm SDsvKyMsIKXhSCdvT8keCp FcZnMyMCAtIFRPVEFMIExJ LaXIOfCHWRiOXY2VQFOMSm APEpUBRTCZHM0PKEH1UEOi YL3laTaadD7sXjPzExHzKb ioZY1wHROmG7mosXQnBXJd KRRcR3biBcYftN6xpGtqLY xjZjJcZnMyMlxwYXJccGxh tG6pOgIsJmPpOAjrMC2oGW IrC0rspDAeQMFoYVRyY8bk HoDwdQ5vtIarYAefecOpKD 4aQBQXLA6VEUPZXZLOEnHX R2pBPfXPW4FpGYSBEvKWGr lFRFxwYXJccGFyXGZpMFxw lYVlqcvfXYryjuS3WCYmJW luXGYxXGZzMjBcbGFuZzEw MzNcaGljaFxmMVxkYmNoXG QbLForI9yuRoCfUcBfVOWR RkHJJf1HJZMDFZQLNPAMKL wgUklHSFQgTEFURVJBTCBC QVNFLCBORUVETEUgQklPUF NZOlxwbGFpblxmMVxmczIy OVicdbkyWODlVDyqQ4uyPh DgIROpnWyuMIkng6BjFZKv XGNmMlxmczIyXHBhclxwYX JkXHBsYWluXGYwXGZzMjRc nCaesX2eTpAmWxPhOEkbPS 3rNNJhC6jzqSClPVWbMHWi W6jwUhMerH2lpFhtNClnai CiKTDjRNXhVVJYHF3WS17h VKONC6TUGGyFVSGBB7PJKU UPEFETLICZWk4XEBAoCI6S FETAZWHQXQ0EOLWgroeosC A6EMvkuVCpJQOppOurlCxz gK9nGeSbAhPiBDztcYAbnm xmMVxmczIwXGxhbmcxMDMz UVfzA7edUmKdGSHdySonKY cvx6SwHCSlXXDtMtPtvLTo XGZpMFxwbGFpblxmMFxmcz Z5ATUaKMajYBPnRDIqJjBz bGFuZzEwMzNcaGljaFxmMV dcLdUmYBTkQQunU7syBuGh FvSfUKKBDaOCIb6HUDCAHV BHTEFORCwgUklHSFQgTUlE VRBFQXorSS8SOUJUCZWFHN 6NV8t4FXLjSJeaDMKkFTPp MjJcbGFuZzEwMzNcaGljaF joAJftUiJgHNNaANybO1ga AhTwH2KpSQDiXwScgSNlAR ZpMjcwXHBsYWluXGYwXGZz GnVibGasjU0dHdAgRhDmZB duZE6pKBBvX0sqfRUhUUFa KZFsC3qdAzLenN4yzRarHK dpdmNmJO2qEZWIB8CHWXeI HXHCJO0PE0GTB1fRA98YWH UIEUHGT32NXQYUY2WUMCBg KDMrIDMpXHBsYWluXGYxXG ZzMjJcbGFuZzEwMzNcaGlj aFxmMVxkYmNoXGYxXGxvY2 akRuAdH8EgJQRoMuDwrWHz XHBsYWluXGYxXGZzMjBcbG FuZzEwMzNcaGljaFxmMVxk ZlMcENJuTNwcZ2qcOdWtRm TuSOVjAGoSSMJQQBnJT5DO GGTuvAcxdC2yGgIgEfApRh wqXO3qVAUtG2ytgYBcPCHq BQCdF8ifUhUigH6xlOeaWT xjZjJcZnMyMlxwYXJccGxh oE3cDpPpHvRaBEtwZM3iRX RgJ2driIOaNQRmNBWqF4ry WtJrrS8uxKmqXXhyrgXlIH 1jVFXKC6AwMR5PF9qHBSQk CPYAZ7BSHDTTUUA5KRFITu JZSWZvVNgZI9RRJOYUZL8T TkVEXHBsYWluXGYxXGZzMj JcbGFuZzEwMzNcaGljaFxm CSciWlRdRVYxPFhoA4gdUq MtI6OkPKIoBgHjqGHfLSXz YWluXGYxXGZzMjBcbGFuZz EwMzNcaGljaFxmMVxkYmNo SJCxVIiyU7heGsKkIhBxJI AtIFRPVEFMIExJTkVBUiBN AJmFQB8SEXOUGhKGDgMWUC JJVZSjV32FZXCWYTVFYZM8 ZFI2HD5MHJKaKDzmAXTcVT ZzMjJcbGFuZzEwMzNcaGlj aFxmMVxkYmNoXGYxXGxvY2 uuYqBkR3NiMVKrCxBroFLg XHBsYWluXGYxXGZzMjBcbG FuZzEwMzNcaGljaFxmMVxk BeXvQSAkCClxE0twAxUzLq MyMCAtIFRPVEFMIExJTkVB FzWEDWoPOA6ASHCZAbQREa HLGSYDUZ2WHGS7NRUfCL9j oLkqjR1qUhXeWnDgWtwpAP 2wFMDhV1ispOOzAYQtKIOp J1pqBmDdrL9qoZhpZMuzSc FgYaJnVufqRFEhkOxzyM3l BgGwJoMoRDwyQY1bDKMmF5 fnwRFdASOtZDMvX3ieCmHp tG0ieEpiHCcbonKuNH7xRG QISK1IXZLRONHSPjIBE6hB IqYHQ1TnSASKBvQBZywWTR xwYXJccGFyXGZpMFxwbGFp jlkvEWrvphZ9LVSyEZpoKV YxXGZzMjBcbGFuZzEwMzNc aGljaFxmMVxkYmNoXGYxXG yvF9rnQyAsYkMbBKHPPtYT Da6FVHCEYSWMPGOGLTbnAz oMZAQlXNqBGL8THPpiLiRO LYyNUKOHZ5ZLDIlejZnqqD 5xRxPzFjFzUnupDK3nTMLt H9nobXNsVDSgOKIkZ7djNr YoyA2gnQrpVXsbTmRwDsUk MlxwYXJccGFyZFxwbGFpbl fnCRgknvY4QDBeKLcdQBCl XGZzMjBcbGFuZzEwMzNcaG ljaFxmMVxkYmNoXGYxXGxv R8smIfThLhYhMVKoJPYaUD 5lOuONWOyEZUWMK2EJHTYB ZbGBDSDCRYNpGY9IBORYWa 6NZVPlWD1NJIUDEEIKVK5X XHBhclxwYXJcbHRycGFyXH FsXHBsYWluXGYwXGZzMjRc cAehtO3pJqKnEzCdJLevQN 5nLIFyI3pdwLBcUWZoSKWt T9pdYcVqmW9ukBqmDWtxxc AeOGzySYXKJ6XTCPJJUQyG XX3COOVCFVgVWOLSTGOwRn ZJWEebUkTYJXmSFFYLF8WM CKsvrAqpoT7lTjQnCtDyOb hcGU9hFEDrP4symGVyOJKr VZDcZ1ihDdBppA1xyJlqVT xjZjJcZnMyMlxwYXJccGxh mV0kKyQoMeOyNVsvDM7uZC CrS3uyaQUyPPWtXROyM9ye McYixV9lzUiqJZtjssRaPD DwXDSmNEJKBp5NHSSWBPAu JVSNRy5WJAEQOH4AGASbZH kDZMROW49wM9TBXjIyKrRz TtqpUsjwvIjrsJ1mMuHbQm DwTzndKQ8iPPJcL0hktFMf NVLjKZSxF1tlOfUtfN1mfG xmMVxjZjJcZnMyMlxwYXJc JemzLxDftVpvdV0lGeQzWp MyNFxwbGFpblxmMVxmczIw QDsdxhsvOYIeHSewP3hrKf JrWDAxbNmdTDvfy5UaMPCz XGZzMjAgLSBHUkFERSBHUk 9VUCAxXHBsYWluXGYxXGZz MjJcbGFuZzEwMzNcaGljaF dbHMlaZkIsGPJwWHciX6zf NpEtB3YjZKYrMbZigIZaEO BsYWluXGYxXGZzMjBcbGFu ZzEwMzNcaGljaFxmMVxkYm GcAWGrUXgoE2rpIpAgEwUr BSBgMTLSRG9YHUtACm6DTz DOVDJdA20PHMBWBpNtZOYy L9MmCHcKSUEUX7MBAFFWRH OFBE5QCSturXXksiapRDnw czIyXGxhbmcxMDMzXGhpY2 bbCjQrBLZmiQsjRYlen3Ny XGYxXGNmMlxmczIyXHBhcl xwbGFpblxmMVxmczIwXGxh ncxqMLXkYFbuG1iqGrTyNB OwvTxpDFses9YeHUOkVPBe PlKlWASXC2SDXTXLDE9DRE CqRCiPBQkIXXAQHaCvC2Sx TkVFRExFIENPUkUgVElTU1 VFOiAxMiBNTVxwbGFpblxm MVxmczIyXGxhbmcxMDMzXG kfI6xnDyKfGFPebDmlQFur e5BmZJRfRXBkYlwcmtOyTA BhclxwbGFpblxmMVxmczIw AMdzlfqlBKYhJSgsV6lyCf KmLUIxiLqkLTcgp9WgKPKs DGTkUdEfKHCVA1LVFAYWDT 5FQVIgTUlMTElNRVRFUlMg T2ExS9TGZ1fSK82VNxYvBs GjES6jeZvunG1uKyKrPvGh ZlosZK1nLHGsV6zgkDSaLC IfBVHxJ2ohJpCioC8mePsc MVxjZjJcZnMyMlxwYXJccG misE7fHqYqVsKoMEakPK0r XFCrL9fdcABdFGYmJFBiO1 dpTbYqjE8hxCnwHPygvfEo LA0fBGVYKO3QBCOOEIDJPz YYX4wXGmRDI6QgBPQXKzYM RklFRFxwYXJccGFyXHBsYW luXGYxXGZzMjJcbGFuZzEw MzNcaGljaFxmMVxkYmNoXG MjKFhiI8fcWbZzR8PhVXGv RgJaUgUjvTHzmKZiX6ipoK wkylohVIPGMEQoZDgnQy9v HQTwGWR1XdZnRXYZQZHrMT luXGYxXGZzMjBcbGFuZzEw MzNcaGljaFxmMVxkYmNoXG OiMNpkH7hdJzToUiTnEWEu NFxwbGFpblxmMVxmczIyXG gbrycoBAXoKRiqN7ztGdIx VJXfzIxjCGvmb5MfTRQrJN HxEchynmOcDNKkgw39EOB8 HuTrz2X0PBXiYeYsLIWvWJ 2gwYkfGDPjLL3yHEJsE9yw rY7gfcn8PfBaMMLhCxY5RV SliuC8Owi5WETxATuvv5qt t8KqM9OapDKqyIg6j0diSJ CmEkI9aDXcFEsrY9kftcIl gQSeWHNcDIo7gAihOeFgTU Jqh6tkpmIyNbKzMAKwUREo MEYbmUabcky0kK57ZCBgkV 7ssNKxVBhnkbVqGwE2URro ISJjFpQ1ZPPbeQKwMVGcI1 xyZWQwXGdyZWVuMFxibHVl FTP7iQlbk6Q3eBBucXEhdB pgPuHsZsFaZFDQx0LlKIn9 wKdeC0YoZRVdOxU3cHOqPX MgGDupGOKwMPRrxhF1xG37 FRtltlH0fSAbp9Ajl05oa9 50rP7htRSwPOU9DOMdEGNh dMJkDXMfZAR2BOJeqAAgE5 ppKGOwRN2hicapJFwgSXhp JYGuuVG0ZXXjfQYpL8QwFH WpLUwyKIJurjk4QaJuMy8a dAIzzShtKLqon3xaa4zavE XjAsl7RZInQjBoFrubEGtv o6Rff2hyOIJsmr8oHEG6wE IebYudx4O6nRQpDSNwpMZg mjOnKWDjBpF7VHujHZ3uae 12VLSxODK1oo1fsPYvwXom jhMzaETbSZyaC1ToLDJig3 93DPZdB3IfBCGfb8K9unRy VvIrMIVhaDW5oxV1DPBaUF p6lWAbgnH4tjZefNDzO8sx hA2sWIHmVL4dufitg1khPM iyDYapWGYzqLK5kfC2ZMPk jPLxB9WmuE9mGUIrJUshFS Zshzw4PxElZc7vwUYpmUqa MFxzYmtwYWdlXHBnbmNvbn RccGduZGVjXHBsYWluXHBs YWluXGYwXGZzMjRccWxccG godI0bByZdMsYfSJsvED4l FLBcV6nczWLlVTEuBRPkE6 knMvSvbW3htAniOByrLvAf ZnMyMFxwYXIgSSBoYXZlIH FvpiMyzbPrrWfzonN0fLW1 ZWQgYWxsIHNwZWNpbWVucy 7jvDkfKYXrKQ2xUVOkblIy FOtgiVqfJDwzZVG2FXHtkW VudHMgbWFkZSBieSByZXNp UWDxoDTfLXEodQuxi8Mpp1 JzqJW8oK2uo0lrb7XiISJh gZC5YX65vgF0eH3vYEEwEL 9eWRCgZP4jzMKqxHBiKKPf y79dzRdknmNdCMIitsEsAU BsYWluXGYyXGZzMjhcbGFu ZzEwMzNcaGljaFxmMlxkYm NxOGFaORfyN2hsQnJpUhNh OQlkEVR7tB== Clinical Information Left lateral apexLeft (test code = lateral midLeft [id number]) lateral base Left mid apexLeft mid midLeft mid base Right lateral apexRight lateral midRight lateral base Right mid apexRight mid midRight mid base Gross Description (test [id number] code = [id number]) AmRILph1efHCIhnZMiWnOk MzNcZnRuYmpcdWMxXGRlZm Afi8ppm703eDClp7koLPAw IlU9kOLmNYUbeTDjV127XB IcJDftd3zpt0IlCJBqeEIk k0M1RFVIivbsjXr2w6ckFe NfTlE7hSMuVNjvB3rkbqXq xRKkREZnM7EacrPSPEOaMe k9cXwbJ81lt9Y2KbgiC2ps ZWQwXGdyZWVuMFxibHVlMC K8RBMoJMP1RPkomfMtbjS0 TOpwkRMlDcM8BYl1n2yakF dpEBCaUZI3b2hhZUgjasWe ZA3nqf4doDm1z3vmcuKhXB XzQXZcxTPGTDNqO2BeuFnw Ku1fgQz3hKmxTofwLER1Uq h6JJ9xeh35ryh1oLlfWHPl egwyFpE4IJxcGEBxfextXB c5MGieIARfhIOnBMCxiNUi J1EeUClcYJ5cmyv4HuVkOX 7lzpdbCFkjVWGeAYJ6MwHn BTTmt5SqvrkfTyUsbj9hfy 75DYO7a0NajAekHXR1KQR6 OxNqHu9iiEOyVVEfVN1cTa ZvcKXcWMWuec17bYijOYhj neDlyR9zRdVcZEKqwYUvYF NaTE0klESbEJRftV6bxjxc XHBnYnJkcmhlYWRccGdicm SvTa8grUtfROY3NQxtK2ch hX4kCqX4XVgvW6aebE0mFG r1TEgquYM5RNHfcK4hKG9w wqrpy1dxMCA1QHadIRFopb U5goYfZHDgdIIoT0NrnA37 PmUdoKSaW0RdsL7pYTzaUO Rpjox8LuGvRi6rfEWmbEI2 MFxzYmtwYWdlXHBnbmNvbn RccGduZGVjXHBsYWluXHBs AXhbZRMzVDYdFlBwe7CjIA Dyq0qcVrWee7forNz3DYvm fCldsIZjfaufGKkirgX6ER BsYWluXGYxXGZzMjBcbGFu ZzEwMzNcaGljaFxmMVxkYm CjRXPeCXxrX7vaVpQrJbWd KSXRyYCjhO2zgpAGPGxzXW DnK9AcqnQzOSbnTLHwsn6c xInnVXcwFpAbQKYhl0i5nQ W5gYEikTC7eNYxiUzvYP0e hFMqFNZYIX64zNUwfdvwNi ydMjJjuGK6AEMjrOKxsMP3 ToQwhaZcN40vo9kooXEht1 CfAYBgcG2tfULstKTfIApd WIbpW40pPFMiHG30ASpvFQ 3eYNqpWG4iFBEsYSJ3dVrk aCBpcyBlbnRpcmVseSBpbm tlZCBibHVlIGFuZCBzdWJt sDZ6OUNmiM1uxC14olLfqn MCIK6beTObBSSpNMVwgISm RKGydXJgygJjERk0ATOsxV 3lQf4bkGVuyE6goWRuSYkj FDH8bJXjPEQqUAAjFIGcNF 40D9UgdeEhNPjgTHlcuaJg YmVyLCAibGVmdCBsYXRlcm AsLO9kNHXaHA6nTQGvyfAq r6KaLH1cEMCtx6nuR1vzGF Thdi8urfZ6HSBqszNmYKWu AZA1LYYuKE5rRuOoQ96gDC doaWNoIGlzIGVudGlyZWx5 ZVxkr6DsXUIlsLBdCU0rWW S4Jj5xuCPdSNIximG8w9Ao XGmaXXYxQhgrMINbC6UbI6 ilFE7jOqCopaObLMEzyBNz LWWimoYhw8HeJIqlozMpGR JlbGVkIHdpdGggdGhlIHBh cBcblcPqjcUeNX9uNCMLFC GysB6iWSWnGHKcPFK1NDqw nOFkPYanVuOuQEYwZD0aPJ HgegQsv6ZlLN2kMYRes1cq B6xpKZEzmn2gcrX9MASgos AdXTMaPnC4VREzAEE8RXSo SQDknUkeq5hkW6dzvEPhPF 34nAAkiKdzlL6cIGEmEev2 IMLrlpQxh1TenJa5qOUfPO dhNIAivL5hwE4fMkNpFCUh jzMEyIQmpF5codFFMTjfGN GdX0UdzbMpMZczYEXsgh4f eYidMWlaYqReUNHnq1w1sF I1cFMzhPZ9hBOfeWcgIU8q pIPyBHZJNL29tYKrmpmtEn xlZnQgbWlkIGFwZXgiIGFu BJYdz16zmAE1swAaGmCoPJ YkgthlGIV4JO6aY3QmuPUn s2RdNKbvNoIenKRrPgYjzB HsVfMaE20iKHfjjNOnTDon KAKpqKggLSc3YAdoe6YoVB BosEGhXU6aOIZ0Pu2mcIPz TLCyrtO8m3RyWDsbDTCaXi hgLOCoP3KbK6arCV0pAGGa cyByZWNlaXZlZCBpbiBmb3 JtYWxpbiBsYWJlbGVkIHdp dGggdGhlIHBhdGllbnQncy BkOT5lUDOJFBEbiS8cLUDo AFYbLUU8OP7lVTAjlJHzTU GyTFTig93feWY4zjZcGkNi GYRwlneyJOQ5HG2jT5VfoQ Rlq0MoWWqoYqVzyMFrMqVx uWZvOgHuZ59fGVgokYWnTH aqIJSixKhlHZd9BVdmy0Xj XOLweZGaCW8pAFO3Xc3wwY TdKLKjwnH4n2JtVKnhAXOe NyzmWESxS0YbB2hoZS0lTu BpcyByZWNlaXZlZCBpbiBm p1SeHAapeqQzSDBflZRvIN dpdGggdGhlIHBhdGllbnQn hkHjHQ9zNFFHHJGttB4hZE RyMUMcWOV1RR0yOBUfBHHj ClRbclUzT23an9iiqPPas5 WlYRZwoY1tfJOikTGxCAzl RFwtQ41iBWFhRZ64PBjpIG 9wCWwuTQ3uDZVcJLF4sEsh aCBpcyBlbnRpcmVseSBpbm tlZCBibHVlIGFuZCBzdWJt jCO4FNDefV1igW60biBhlh XVMD7hmSAvBXWlJOUdwOUy TXqenOMkcoXqSGu9VRRwuR 9yTt0vqIKscG6doYApCYnh CXH6gVTaYGStUBShZLZfJF 60Z6TghcQwQHhiXGadblKp QlUlEESsqeowaYJyjVH5KK VnrALtkKH4HyJejvUmX15n c3xbqGQcl9TjGDUdpB2jkZ BxvYTrSGfdVSmlA03jRQOu Vm3oMGngDA8pDOgjNK1gUU TxOTR0iUqeeFGsduXywyEc cmVseSBpbmtlZCBibHVlIG HeGRRwaUWhlKJ9YMRqtZ2k iR87inQhuuNNOX8yxBNjOS NwZWNpbWVuIEggaXMgcmVj VZp1NKSceG3nAm7jpDQryR 7hwKOpPTxyZWY4cFWtDNWu UKKhQBZgSC94H6JjaoHrPM wgVUggbnVtYmVyLCAicmln gXNxsJI0NEGydUHxlFZqZS QwIRZnq68dnOX2akKhUrHu GCSnmtwfSYQ9PT0lH3KjnY Npu0RgQLalKxbclJKiPjZb lFRsEwZuS78cFBhmfLCwVH jbTXUogLucRZe7RWpch2Li OCMesYEwSD1kLGR2Sd7isZ YmTURrmcY9m2AmIMotRQng YawiKGTmH1RbT3ttSR6eNV BpcyByZWNlaXZlZCBpbiBm a5DdGYpdaaCkFFEslYMqHS dpdGggdGhlIHBhdGllbnQn smJzQQ5mEQQPORUveP6zTT IsICJyaWdodCBsYXRlcmFs EJLzj4XkKMHoTXWso11eyS W5wiUzKnBlSWZtpdtkZSQ1 ML2eZ8CnfTEmq6LkADgoOi liwTZyRjXhoKIjUnZwO39x IHdoaWNoIGlzIGVudGlyZW u9PCrnb3QvTHVmrTCgEW1p MPX6Vt8anKDmKRSilpR2m9 QvUMovZRctWruoKVMmJ2Rq P8qhMQ1uLwHumrEgEJFjfH TcZFQckhZov2WxHAfdniAe YWJlbGVkIHdpdGggdGhlIH GknTndbcLnmlQzUH4aDSLI MUggbnVtYmVyLCAicmlnaH QgbWlkIGFwZXgiIGFuZCBj u48jnOA5eyCmOuZsOKBsbb xfYQT7NF0oY9HwgKBdc0Vc ICgxLjcgeCAwLjEgeCAwLj KcI35xIMvxuWAxTFscPIUh nBzcEQh4STesk0WjEXHdhH WuHP4oEQS0Mg3lcLQbFIWa mwW3q8DsJQbsEYboVkusZA RqM2WnQ4scTA2zKhXwqjAb GIXmpKZcSBIdxrEio7VgLT xpbiBsYWJlbGVkIHdpdGgg dGhlIHBhdGllbnQncyBuYW 2cCEFXHXMgoY9kFNLhGOEu aWdodCBtaWQgbWlkIiBhbm XzM60kz5wdrDJte1YdWGIx jZ2ssEJyaJVwOSwcNEdaZ7 5lVSRbNm7sATjfSC2dZQgc AK5dNTDcYSC4yVwlgNZpmb BlbnRpcmVseSBpbmtlZCBi mGIhTJDmENJbnXHhgZC2AN YsrP5bcM91wnSmtuIQUK1y cGFyIFNwZWNpbWVuIEwgaX LeetYlTWu5KZVrsQ2pGz6u eMMvtT5fdRIoAEooDAM4bK SnWKZyOOQmUMCrAZ66L1Ef bmFtZSwgVUggbnVtYmVyLC QgzjuxtWVioDsiHDYay7Bl QVQvEHLlh94bnIN2sdNlMd FyGIEtmlngAUJ9MR4hT1Tn sTDbq1CqMAxrXbKmoVLaDn TblBQiFbBgZ71cOSwlnOWl XGiqKWHtiTruFLl2PSfny0 PzKJBiiQBjRO9gZPN2It4s iBMaPRAtuyW3g2VgJDxkVA wxLlxwYXJccGFyZFxwbGFp pqozJBqqkpF9LLZxRUjpJZ YxXGZzMjBcbGFuZzEwMzNc aGljaFxmMVxkYmNoXGYxXG paO1mdCtYaUlHmTCSIxWvq KLXTD8xuwYVuREbkKWHVNW BsYWluXGYyXGZzMTZcbGFu ZzEwMzNcaGljaFxmMlxkYm QgWUJnJUlsN6bgBmGtK4Qv XGZzMTZccGFyXHBsYWluXG YxXGZzMjRccGFyXHFsXHBs YWluXGYwXGZzMjRccGxhaW 0ySeIkWfTgSZnjPN7kARIq A1bymKLxASDyRACmF7ynTw YnpY9heGfwUNftfzFuDHCj cn0= Embedded Images (test code = [id number]) [facility] [id number] 23:07:00 Test Item Value Reference Range Interpretation Comments PSA (test code = 29.30 ng/mL See_Comment H [Automated [id number]) message] The system which generated this result transmitted reference range : <=4.00. The reference range was not used to interpret this result as normal/abnormal . BEVERLEY (test code = BEVERLEY) Biotin has been reported to cause a negative bias, interpret results relative to patient's use of biotin. Lab Interpretation Abnormal (test code = 76736-9) [facility]
--- NOTE | 2022-10-13 20:39 | ER ---
Nurse's Notes [facility] Name: Jesse Serna Age: 82 yrs Sex: Male : 1940 Arrival Date: 10/13/2022 Time: 19:56 Bed 8 Private MD: Diagnosis: Strain of muscle(s) and tendon(s) of the rotator cuff of right shoulder;Other postprocedural complications and disorders of the circulatory system, not elsewhere classified-RIGHT RADIAL ARTERY;residential (current) use of anticoagulants-ELIQUIS Presentation: 10/13 20:00 Chief complaint: Patient's son or daughter states: He had a heart cath about an hour vc1 ago and now the spot in his wrist where it was done is really swollen and hurting him. 20:00 Coronavirus screen: Vaccine status: Patient reports receiving the 2nd dose of the covid vc1 vaccine. Abel plus 2 boosters Client denies travel out of the [place] in the last 14 days. At this time, the client does not indicate any symptoms associated with coronavirus-19. Ebola Screen: Patient negative for fever greater than or equal to 101.5 degrees Fahrenheit, and additional compatible Ebola Virus Disease symptoms Patient denies exposure to infectious person. Patient denies travel to an Ebola-affected area in the 21 days before illness onset. No symptoms or risks identified at this time. Initial Sepsis Screen: Does the patient meet any 2 criteria? No. Patient's initial sepsis screen is negative. Does the patient have a suspected source of infection? No. Patient's initial sepsis screen is negative. Risk Assessment: Do you want to hurt yourself or someone else? Patient reports no desire to harm self or others. Onset of symptoms was October 13, 2022 at 19:00. 20:00 Method Of Arrival: Wheelchair vc1 20:00 Acuity: KT 4 vc1 Triage Assessment: 20:00 General: Appears in no apparent distress. uncomfortable, Behavior is cooperative. Pain: vc1 Complains of pain in right wrist Pain does not radiate. Pain currently is 10 out of 10 on a pain scale. Quality of pain is described as burning, pressure. EENT: No deficits noted. No signs and/or symptoms were reported regarding the EENT system. Neuro: Level of Consciousness is awake, alert, obeys commands, Oriented to person, place, time, situation, Appropriate for age. Cardiovascular: No deficits noted. Respiratory: Airway is patent Respiratory effort is even, unlabored, Respiratory pattern is regular, symmetrical. GI: No deficits noted. No signs and/or symptoms were reported involving the gastrointestinal system. : No deficits noted. No signs and/or symptoms were reported regarding the genitourinary system. Derm: hematoma right wrist. Musculoskeletal: No deficits noted. No signs and/or symptoms reported regarding the musculoskeletal system. Historical: - Allergies: 20:38 Aspirin; vc1 - PMHx: 20:38 Arthritis; Atrial fibrillation; Hypertension; prostate cancer- in remission; vc1 - PSHx: 20:38 Appendectomy; vc1 - Immunization history:: Client reports receiving the Abel \T\ Abel single-dose vaccine. Note plus 2 boosters. - Social history:: Smoking status: Patient/guardian denies using tobacco, the patient reports quitting approximately 2 years ago. - Family history:: not pertinent. Screenin:00 Abuse screen: Denies threats or abuse. Nutritional screening: No deficits noted. vc1 Tuberculosis screening: No symptoms or risk factors identified. 20:00 [facility] ED Fall Risk Assessment (Adult) History of falling in the last 3 months, vc1 including since admission No falls in past 3 months (0 pts) Confusion or Disorientation No (0 pts) Intoxicated or Sedated No (0 pts) Impaired Gait No (0 pts) Mobility Assist Device Used No (0 pt) Altered Elimination No (0 pt) Score/Fall Risk Level 0 - 2 = Low Risk Oriented to surroundings, Maintained a safe environment, Educated pt \T\ family on fall prevention, incl call for assistance when getting out of bed. Vital Signs: 20:00 BP 162 / 88; Pulse 60; Resp 16; Temp 98.2; Pulse Ox 99% ; Pain 10/10; vc1 20:35 BP 167 / 71; Pulse 60; Resp 19; Pulse Ox 96% ; kd3 20:00 Pain Scale: Adult vc1 ED Course: 19:59 Patient arrived in ED. am2 20:00 Arm band placed on left wrist. vc1 20:00 Patient has correct armband on for positive identification. Bed in low position. Call vc1 light in reach. Client placed on continuous cardiac and pulse oximetry monitoring. NIBP monitoring applied. 20:02 Jameel Valdivia MD is Attending Physician. jacqueline 20:19 Enma Parks, RN is Primary Nurse. kd3 20:38 Triage completed. vc1 20:38 Carlos Warner MD is Referral Physician. [facility] 20:56 No provider procedures requiring assistance completed. Patient did not have IV access kd3 during this emergency room visit. 21:00 Provided Education on: . kd3 Administered Medications: 20:50 Drug: Hydrocodone-Acetaminophen PO (7.5 mg-325 mg) 1 tabs Route: PO; kd3 21:03 Follow up: Response: No adverse reaction kd3 Medication: 21:01 VIS not applicable for this client. kd3 Outcome: 20:39 Discharge ordered by . [facility] 20:56 Discharged to home via wheelchair, with family. kd3 20:56 Condition: stable 20:56 Discharge instructions given to patient, family, Instructed on discharge instructions, follow up and referral plans. medication usage, Demonstrated understanding of instructions, follow-up care, medications, Prescriptions given X 1. 21:02 Patient left the ED. kd3 Signatures: Jameel Valdivia MD MD cha Moreno, Amanda 2 Enma Parks, RN RN kd3 Paola Barnett RN RN vc1
--- NOTE | 2022-10-13 20:39 | EDPHYS ---
Physician Documentation [facility] Name: Jesse Serna Age: 82 yrs Sex: Male : 1940 Arrival Date: 10/13/2022 Time: 19:56 Bed 8 Private MD: ED Physician Jameel Valdivia HPI: 10/13 20:18 This 82 yrs old Male presents to ER via Unassigned with complaints of Post jacqueline Surgical Bleeding. 20:18 The patient or guardian complains of decreased range of motion, pain, swelling. The jacqueline complaints affect the right wrist. Context: The problem was sustained at a HOSPITAL , CATH TODAY, RIGHT RADIAL. Onset: The symptoms/episode began/occurred today. Treatment prior to arrival includes: no previous treatment, elevation of the extremity. Modifying factors: The symptoms are alleviated by nothing. the symptoms are aggravated by movement. Severity of symptoms: At their worst the symptoms were mild, in the emergency department the symptoms are unchanged. The patient has not experienced similar symptoms in the past. Historical: - Allergies: 20:38 Aspirin; vc1 - PMHx: 20:38 Arthritis; Atrial fibrillation; Hypertension; prostate cancer- in remission; vc1 - PSHx: 20:38 Appendectomy; vc1 - Immunization history:: Client reports receiving the Abel \T\ Abel single-dose vaccine. Note plus 2 boosters. - Social history:: Smoking status: Patient/guardian denies using tobacco, the patient reports quitting approximately 2 years ago. - Family history:: not pertinent. ROS: 20:19 Constitutional: Negative for fever, chills, and weight loss, Eyes: Negative for injury, jacqueline pain, redness, and discharge, ENT: Negative for injury, pain, and discharge, Neck: Negative for injury, pain, and swelling, Cardiovascular: Negative for chest pain, palpitations, and edema, Respiratory: Negative for shortness of breath, cough, wheezing, and pleuritic chest pain, Abdomen/GI: Negative for abdominal pain, nausea, vomiting, diarrhea, and constipation, Back: Negative for injury and pain, : Negative for injury, bleeding, discharge, and swelling, Skin: Negative for injury, rash, and discoloration, Neuro: Negative for headache, weakness, numbness, tingling, and seizure, Psych: Negative for depression, anxiety, suicide ideation, homicidal ideation, and hallucinations, Allergy/Immunology: Negative for hives, rash, and allergies, Endocrine: Negative for neck swelling, polydipsia, polyuria, polyphagia, and marked weight changes, Hematologic/Lymphatic: Negative for swollen nodes, abnormal bleeding, and unusual bruising. 20:19 MS/extremity: Positive for pain, swelling, of the right wrist. Exam: 20:19 Hand exam: Exam is positive for swelling, tenderness, ROM: full active range of motion, jacqueline full passive range of motion, Circulation is intact in all extremities. Pulses: noted to be 4+ in the bilateral radial, brachial, femoral, popliteal, posterior tibial and and dorsalis pedis arteries., sensation intact. Compartment Syndrome exam of affected extremity: is normal. Tendon exam: specific tendon testing normal through active and passive range of motion 20:19 Constitutional: This is a well developed, well nourished patient who is awake, alert, and in no acute distress. Head/Face: Normocephalic, atraumatic. Eyes: Pupils equal round and reactive to light, extra-ocular motions intact. Lids and lashes normal. Conjunctiva and sclera are non-icteric and not injected. Cornea within normal limits. Periorbital areas with no swelling, redness, or edema. ENT: Nares patent. No nasal discharge, no septal abnormalities noted. Tympanic membranes are normal and external auditory canals are clear. Oropharynx with no redness, swelling, or masses, exudates, or evidence of obstruction, uvula midline. Mucous membranes moist. Neck: Trachea midline, no thyromegaly or masses palpated, and no cervical lymphadenopathy. Supple, full range of motion without nuchal rigidity, or vertebral point tenderness. No Meningismus. Chest/axilla: Normal chest wall appearance and motion. Nontender with no deformity. No lesions are appreciated. Cardiovascular: Regular rate and rhythm with a normal S1 and S2. No gallops, murmurs, or rubs. Normal PMI, no JVD. No pulse deficits. Respiratory: Lungs have equal breath sounds bilaterally, clear to auscultation and percussion. No rales, rhonchi or wheezes noted. No increased work of breathing, no retractions or nasal flaring. Abdomen/GI: Soft, non-tender, with normal bowel sounds. No distension or tympany. No guarding or rebound. No evidence of tenderness throughout. Back: No spinal tenderness. No costovertebral tenderness. Full range of motion. Male : Normal genitalia with no discharge or lesions. Skin: Warm, dry with normal turgor. Normal color with no rashes, no lesions, and no evidence of cellulitis. Neuro: Awake and alert, GCS 15, oriented to person, place, time, and situation. Cranial nerves II-XII grossly intact. Motor strength 5/5 in all extremities. Sensory grossly intact. Cerebellar exam normal. Normal gait. Psych: Awake, alert, with orientation to person, place and time. Behavior, mood, and affect are within normal limits. 20:19 Musculoskeletal/extremity: ROM: full active range of motion, full passive range of motion, limited active range of motion due to pain, limited passive range of motion due to pain, Circulation is intact in all extremities. Sensation intact. Compartment Syndrome exam of affected extremity: is normal. Vital Signs: 20:00 BP 162 / 88; Pulse 60; Resp 16; Temp 98.2; Pulse Ox 99% ; Pain 10/10; vc1 20:35 BP 167 / 71; Pulse 60; Resp 19; Pulse Ox 96% ; kd3 20:00 Pain Scale: Adult vc1 MDM: 20:02 Patient medically screened. [facility] 20:26 Differential diagnosis: contusion, abrasion, tendonitis. Data reviewed: vital signs, [facility] nurses notes. Consideration of Admission/Observation Escalation of care including admission/observation considered. I considered the following discharge prescriptions or medication management in the emergency department Medications were administered in the Emergency Department. See MAR. Test considered but Not performed: Labs: NO LABS. Ultrasound NO ULTRASOUND. Historians other than the Patient: Family Member: , WELL INFORMED. Care significantly affected by the following chronic conditions: Hypertension. Counseling: I had a detailed discussion with the patient and/or guardian regarding: the historical points, exam findings, and any diagnostic results supporting the discharge/admit diagnosis, the need for outpatient follow up, for definitive care, a supply planner. 10/13 20:18 Order name: Ice pack; Complete Time: 20:35 jacqueline 10/13 20:18 Order name: Splint: PREFORMED, LOOSE JOSHUA; Complete Time: 20:35 jacqueline 10/13 20:42 Order name: Sling; Complete Time: 20:50 jacqueline Administered Medications: 20:50 Drug: Hydrocodone-Acetaminophen PO (7.5 mg-325 mg) 1 tabs Route: PO; kd3 21:03 Follow up: Response: No adverse reaction kd3 Disposition Summary: 10/13/22 20:39 Discharge Ordered Location: Home jacqueline Problem: new jacqueline Symptoms: have improved jacqueline Condition: Stable jacqueline Diagnosis - Strain of muscle(s) and tendon(s) of the rotator cuff of right shoulder jacqueline - Other postprocedural complications and disorders of the circulatory system, not jacqueline elsewhere classified - RIGHT RADIAL ARTERY - penitentiary (current) use of anticoagulants - ELIQUIS jacqueline Followup: jacqueline - With: - When: 1 - 2 days - Reason: Recheck today's complaints, Continuance of care, Re-evaluation by your physician Discharge Instructions: - Discharge Summary Sheet jacqueline - Hematoma jacqueline - Hematoma, [id number] jacqueline - Shoulder Pain, [id number] jacqueline - Bleeding Precautions When on Anticoagulant Therapy, Adult jacqueline Forms: - Medication Reconciliation Form jacqueline - Thank You Letter jacqueline - Antibiotic Education jacqueline - Prescription Opioid Use jacqueline - Patient Portal Instructions jacqueline Prescriptions: - acetaminophen-codeine 300-30 mg Oral tablet - take 2 tablet by ORAL route every 8 hours; 15 tablet; Refills: 0, Product jacqueline Selection Permitted Signatures: Jameel Valdivia MD MD cha Doucette, Kyli RN RN kd3 Paola Barnett RN RN vc1
[2022-10-13] MEDS ORDERED: HYDROCODONE/APAP 7.5/325 MG TAB ONE (20:53)
[2022-10-13 21:20] VITALS: BP 162/88; TEMP 98.2; O2SAT 99
== END 2022-10-13 21:02 | disposition home or self-care (01) ==
LOC: ER 19:56
DX: I97.89 Other postprocedural complications and disorders of the circulatory system, not elsewhere classified (principal); S46.011A Strain of muscle(s) and tendon(s) of the rotator cuff of right shoulder, initial encounter; Z79.01 Long term (current) use of anticoagulants; Z88.6 Allergy status to analgesic agent

== ENCOUNTER 2023-06-30 09:55 | Emergency (ER) | payer SELFPAY ==
--- OUTSIDE RECORDS SUMMARY | 2023-06-30 09:59 | XMS REPORT | Clinical Summary ---
Author Name Unknown Organization [facility] Address [address] [place] [address] Care Team Providers Care Gm Mobile Name Role Phone Pako Lopez MD Unavailable Nick Delgado MD Primary Care Provider [phone] Marek Saini MD Unavailable [phone] Cristian Willams MD Unavailable Navin Lal MD Unavailable [phone] Allergies No known active allergies Medications Medication Sig Dispensed Refills Start Date End Date Status acetaminophen (TYLENOL) 500 mg tablet Take 500 mg by mouth every 6 (six) hours as needed for mild pain. 0 Active aspirin 81 mg chewable tabletIndications:hea Movidius Chew 1 tablet (81 mg) daily. 0 05/27/2021 Active apixaban (Eliquis) 5 mg tabletIndications:pre vent blood clot Take 1 tablet (5 mg) by mouth every 12 (twelve) hours. 60 tablet 5 05/26/2021 Active tamsulosin (FLOMAX) 0.4 mg 24 hr capsuleIndications:Ad enocarcinoma of prostate Take 1 capsule (0.4 mg) by mouth twice daily. 60 capsule 11 10/30/2021 Active atorvastatin (LIPITOR) 80 mg tabletIndications:Milly nocarcinoma of prostate TAKE ONE TABLET BY MOUTH EVERY NIGHT AT BEDTIME 30 tablet 3 09/24/2021 Active tamsulosin (FLOMAX) 0.4 mg 24 hr capsuleIndications:Ad enocarcinoma of prostate Take 2 capsules (0.8 mg) by mouth at bedtime. 60 capsule 6 10/05/2021 Active enalapril (VASOTEC) 20 mg tabletIndications:Milly nocarcinoma of prostate TAKE ONE TABLET BY MOUTH DAILY (SKIP DOSE IF SYSTOLIC BLOOD PRESSURE IS LESS THAN 110) 30 tablet 3 11/02/2021 Active pantoprazole (PROTONIX) 40 mg EC tabletIndications:Milly nocarcinoma of prostate TAKE ONE TABLET BY MOUTH DAILY 30 tablet 5 11/19/2021 Active metoprolol succinate (TOPROL XL) 25 mg 24 hr tabletIndications:Ess ential (primary) hypertension TAKE ONE TABLET BY MOUTH ONCE DAILY ( HOLD DOSE IF SBP <110 OR HR <55 ) 90 tablet 1 12/02/2021 Active amoxicillin-clavulana te (Augmentin) 875 mg-125 mg per tabletIndications:Uri nary tract infection Take 1 tablet (875 mg) by mouth twice daily. 14 tablet 0 10/03/2022 Active Active Problems Patient Care Coordination No te Formatting of this note migh t be different from the original. Patient with cognitive issues and needs assistance with ADLs. Please allow daughter to accompany him to clinic visits and procedures . The following people are approved to obtain medical information about the patient via phone: Contact #1: Name: Latoya Serna ( Daughter ) [phone] Contact #2: Name: Phone Number: Contact #3: Name: Phone Number: Contact #4: Name: Phone Number: Patient has some cognitive deficiency that will require assistance by his daughter during procedures and clinic visits. Problem Noted Date Diagnosed Date Acute coronary syndrome 05/24/2021 High troponin I level 05/24/2021 Dyspnea 05/22/2021 Abdominal pain 05/22/2021 Atrial fibrillation 08/22/2020 Last Assessment & Plan: Patient had an episode of atrial fibrillation with a heart rate of 95 bpm on EKG 08 27 2020 when he presented status post fall. On exam patient is in a regular rate and rhythm. Most recent EKG shows sinus rhythm. Asymptomatic for palpitations. Continue rhythm control on metoprolol succinate 25 [...] 02/14/2020 Adjustment disorder with mixed anxiety and depre ssed mood 02/14/2020 Nocturia 02/14/2020 Essential (primary) hypertension 02/13/2020 Last Assessment & Plan: Blood pressure modestly controlled in the clinicat 146/71. Continue management with metoprolol succinate 25 mg daily and enalapril 10 mg p.o. daily Mixed hyperlipidemia 02/13/2020 Adenocarcinoma of prostate 02/08/2020 Encounters Date Type Department Care Team Description 10/20/2022 Telephone [facility] - Oncology [address] [facility] [address] [place] [address] Nelda Matthew RN 10/20/2022 [facility] [place] [facility] [address] [facility] [address], 7th [place] [address] Nelda Matthew RN 10/05/2022 Orders Only Radiation Oncology [address] [facility] [address], 1st [place] [address] Kirstie Joyner APRN Adenocarcinoma of prostate (Primary Dx) 10/03/2022 11:54 AM CDT - 10/03/2022 3:08 PM CDT [facility] [address], 1st [place] [address] Josiah Garay MD Hematuria (Primary Dx); Hypertension; Urinary tract infection Discharge Disposition: Home 10/03/2022 Travel after 06/30/2022 Immunizations Name Administration Dates Next Due Kendra SARS-CoV-2 Vaccination 05/31/2020 Surgical History Surgery Date Site/Laterality Comments LAPAROSCOPIC CHOLECYSTECOMY PROSTATE BIOPSY 09/14/2019 HERNIA REPAIR Bilateral SHOULDER SURGERY 03/14/2011 - 03/13/2012 Right MI COLONOSCOPY FLX DX W/COLLJ SPEC WHEN PFRMD 07/28/2020 N/A Procedure: DIAGNOSTIC FLEXIBLE COLONOSCOPY PROXIMAL TO SPLENIC FLEXURE; Surgeon: Mian Rachel MD; Location: MAIN ENDOSCOPY; Service: GASTROENTEROLOGY Medical History Medical History Date Comments Essential hypertension Chronic depression Adenocarcinoma of prostate 09/14/2019 Social History Tobacco Use Types Packs/Day Years Used Date Smoking Tobacco: Former Cigarettes 0.5 43 1 965 - 2008 Smokeless Tobacco: Never Comments:used to smoke; quit 12 years ago Alcohol Use Standard Drinks/Week Comments Not Currently 0 (1 standard drink = 0.6 oz pur e alcohol) AUDIT-C Answer Date Recorded Q1: How often do you have a drink containing alc ohol? Never 02/13/2020 Q2: How many drinks containi ng alcohol do you have on a typical day when you are drinking? Not asked 02/13/2020 Q3: How often do you have six or more drinks on one occasion? Never 02/13/2020 Sex and Gender Information Value Date Recorded Sex Assigned at Male 05/22/2021 5:00 PM [employer] Gender Identity Male 05/22/2021 5:00 PM [employer] Sexual Orientation Not on file Job Start Date Occupation [...] Mass Index - - Plan of Treatment Upcoming Encounters Date Type Department Care Team Description 08/10/2023 1:00 PM CDT Follow-Up [facility] - Gastroenterology, Hepatology & Nutrition [facility] [[email or web address] Main [facility], 7th [place] [address] Mian Trevino MD [facility] [place] [address] Health Maintenance Due Date Last Done Comments COVID-19 Vaccine (2 - Kendra risk series) 06/28/2020 05/31/2020 Influenza Vaccine 11/12/2022 01/01/2020 Procedures Procedure Name Priority Date/Time Associated Diagnosis Comments URINALYSIS MICROSCOPIC EXAM Routine 10/03/2022 12:35 PM CDT URINALYSIS WITH MICROSCOPIC IF INDICATED Routine 10/03/2022 12:35 PM CDT URINE CULTURE Routine 10/03/2022 12:35 PM CDT FRACTIONATED BILIRUBIN Routine 12:17 PM CDT TOTAL PROTEIN Routine 10/03/2022 12:17 PM CDT ASPARTATE AMINOTRANSFERASE Routine 10/03/2022 12:17 PM CDT ALANINE AMINOTRANSFERASE Routine 023 12:17 PM CDT ALKALINE PHOSPHATASE Routine 10/03/2022 12:17 PM CDT ALBUMIN LEVEL Routine 10/03/2022 12:17 PM CDT CALCIUM LEVEL Routine 10/03/2022 12:17 PM CDT .GLOMERULAR FILTRATION RATE Routine 10/03/2022 12:17 PM CDT SERUM CREATININE Routine 10/03/2022 12:1 7 PM CDT ELECTROLYTE PANEL Routine 10/03/2022 12: 17 PM CDT BLOOD UREA NITROGEN Routine 10/03/2022 1 2:17 PM CDT GLUCOSE LEVEL Routine 10/03/2022 12:17 PM CDT DIFFERENTIAL STAT 10/03/2022 12:17 PM CDT .CBC STAT 10/03/2022 12:17 PM CDT PROTHROMBIN TIME Routine 10/03/2022 12:1 7 PM CDT APTT Routine 10/03/2022 12:17 PM CDT LACTATE DEHYDROGENASE Routine 10/03/2022 12:17 PM CDT PHOSPHORUS LEVEL Routine 10/03/2022 12:1 7 PM CDT MAGNESIUM LEVEL Routine 10/03/2022 12:17 PM CDT COMPREHENSIVE METABOLIC PANEL Routine 10/03/2022 12:17 PM CDT COMPLETE BLOOD COUNT W/ DIFFERENTIAL Routine 10/03/2022 12:17 PM CDT after 06/30/2022 Results * (ABNORMAL) Urinalysis Microscopic Exam (10/03/2022 12:35 PM CDT) UA WBC NOT SEEN 0 - 2 /HPF [facility] Comment: Some reporting parameters within the Urinalysis test have changed due to the implementation of new instrumentation in the Main [place], allowing greater sensitivity of measurement. Urinalysis results reported by the [facility] using existing instrumentation, as well as Urinalysis testing performed manually or by backup methodology at the [facility] [place] will remain relatively unchanged. New reporting parameters and units will not be reported for all campuses. UA RBC >182(H) 0 - 2 /HPF [facility] UA Mucous NOT SEEN Not Seen-Trac e /HPF [facility] UA Bacteria NOT SEEN NOT SEEN /HPF [facility] UA Squam Epi NOT SEEN None-Occa sional /HPF [facility] Urine 10/03/2022 12:3 5 PM CDT 10/03/2022 12:40 PM CDT Josiah Garay MD LAB BLOOD ORDERABLES Performing Organization Address [facility] de Phone Number [facility] Unless otherwise noted, all lab tests performed by: Division of Pathology and Laboratory Medicine [address] [place] [phone] * (ABNORMAL) Urinalysis w/Microscopic if Indicated (10/03/2022 12:35 PM CDT) UA Color Audelia(A) Straw-Yel low [facility] UA Appear Cloudy(A) Clear [facility] UA Glucose NEG NEG mg/dL [facility] UA Bili NEG NEG [facility] UA Ketones 20(A) NEG mg/dL [facility] UA Spec Grav 1.014 1.003 - 1.035 [facility] UA Blood Large(A) NEG [facility] UA pH 7.0 5.0 - 9.0 [facility] UA Protein 100(A) NEG mg/dL [facility] UA Urobilinogen NEG NEG [facility] UA Nitrite NEG NEG [facility] UA Leuk Est Small(A) NEG [facility] Urine 10/03/2022 12:3 5 PM CDT 10/03/2022 12:40 PM CDT Josiah Garay MD URINE ORDERABLES Performing Organization Address [facility] de Phone Number [facility] Unless otherwise noted, all lab tests performed by: Division of Pathology and Laboratory Medicine [address] [place] [address] [phone] * (ABNORMAL) Urine Culture (10/03/2022 12:35 PM CDT) Final Report <10,000 cfu/ml Normal site sapphire present. Generally of low significance. Correlate with clinical data and culture history. (A) [facility] Urine 10/03/2022 12:3 5 PM CDT 10/03/2022 2:32 PM CDT Josiah Garay MD MICROBIOLOGY - GENER AL ORDERABLES Performing Organization Address [facility] Co de Phone Number [facility] Unless otherwise noted, all lab tests performed by: Division of Pathology and Laboratory Medicine [address] [place] [address] [phone] * .Serum Creatinine (10/03/2022 12:17 PM CDT) [facility] Creatinine 0.78 0.67 - 1.17 mg/dL [facility] Blood 10/03/2022 12:1 7 PM CDT 10/03/2022 12:25 PM CDT Josiah Garay MD LAB BLOOD ORDERABLES [facility] Unless otherwise noted, all lab tests performed by: Division of Pathology and Laboratory Medicine [address] [place] [address] [phone] * (ABNORMAL) .CBC (10/03/2022 12:17 PM CDT) [facility] WBC 6.0 4.1 - 10.5 K/uL [facility] RBC 4.48 4.30 - 6.04 M/uL [facility] Hgb 13.1(L) 13.3 - 17.4 gm/dL [facility] Hct 40.4 39.5 - 51.8 % [facility] MCV 90 82 - 99 fL [facility] MCH 29.2 26.6 - 33.2 pg [facility] MCHC 32.4 31.1 - 35.2 gm/dL [facility] RDW-SD 50.4(H) 37.5 - 49.7 fL [facility] RDW-CV 15.3 11.6 - 15.5 % [facility] Platelet count 181 160 - 397 K/uL [facility] MPV 10.7 9.1 - 12.6 fL [facility] INRBC 0.0 0.0 - 0.1 /100 WBC [facility] Comment: The INRBC (instrument NRBC) value reflects the enumeration of nucleated red blood cells contained in a 200uL sample of whole blood analyzed by the instrument. This value may differ from the NRBC value reported in a manual differential, which is based on a 100 cell differential. Blood 10/03/2022 12:1 7 PM CDT 10/03/2022 12:22 PM CDT Josiah Garay MD LAB BLOOD ORDERABLES Performing Organization Address [facility] Co de Phone Number [facility] Unless otherwise noted, all lab tests performed by: Division of Pathology and Laboratory Medicine [address] [place] [address] [phone] * Glomerular Filtration Rate (10/03/2022 12:17 PM CDT) eGFR 90 >=60 mL/min/1.7 3 sq. m [facility] Comment: The eGFRcr is calculated with the 2020 CKD-EPI creatinine equation using creatinine, patient's age, and sex for adults 18 years of age and older. Other factors, especially muscle mass, may affect accuracy and need to be considered. According to the Kidney Disease: Improving Global Outcomes (KDIGO) CKD Work Group 2012 Clinical Practice Guideline, chronic kidney disease (CKD) is defined as the abnormalities of kidney structure or function, present for more than 3 months, with implications for health. CKD should be classified by cause, GFR category, and albuminuria category. KDIGO guidelines provide the following GFR categories Stage Description GFR mL/min/1.73 m2 G1* Normal or high >= 90 G2* Mildly decreased 60-89 G3a Mildly to moderately decreased 45-59 G3b Moderately to severely decreased 30-44 G4 Severely decreased 15-29 G5 Kidney failure <15 *In the absence of evidence of kidney damage, neither G1 nor G2 fulfill criteria for CKD. Blood 10/03/2022 12:1 7 PM CDT 10/03/2022 12:25 PM CDT Josiah Garay MD LAB BLOOD ORDERABLES Performing Organization Address City/[facility]/ZIP Co de Phone Number [facility] Unless otherwise noted, all lab tests performed by: Division of Pathology and Laboratory Medicine [address] [place] [address] [phone] * Fractionated Bilirubin (10/03/2022 12:17 PM CDT) Bili Total 0.8 <=1.2 mg/dL [facility] Comment: Indocyanine Green (ICG) may cause falsely elevated bilirubin results. Total and direct bilirubin must not be measured from samples containing indocyanine green. False elevation of total bilirubin can be seen in patients with IgG concentrations above 28 g/L. Bili Direct 0.2 <=0.3 mg/dL [facility] Comment:Indocyanine Green (I CG) may cause falsely elevated bilirubin results. Total and direct bilirubin must not be measured from samples containing indocyanine green. Bili Indirect 0.6 0.0 - 0.9 mg/dL [facility] Blood 10/03/2022 12:1 7 PM CDT 10/03/2022 12:25 PM CDT Josiah Garay MD LAB BLOOD ORDERABLES Performing Organization Address City/[facility]/ZIP Co de Phone Number [facility] Unless otherwise noted, all lab tests performed by: Division of Pathology and Laboratory Medicine [address] [place] [address] [phone] * aPTT (10/03/2022 12:17 PM CDT) Pathologist [facility] aPTT 31.7 24.1 - 35.5 second(s) [facility] Blood 10/03/2022 12:1 7 PM CDT 10/03/2022 12:22 PM CDT Josiah Garay MD LAB BLOOD ORDERABLES Performing Organization Address [facility] Co de Phone Number [facility] Unless otherwise noted, all lab tests performed by: Division of Pathology and Laboratory Medicine [address] [place] [address] [phone] * (ABNORMAL) Differential (10/03/2022 12:17 PM CDT) Neutrophil % 76.9(H) 43.2 - 72.7 % [facility] Lymphocyte % 11.5(L) 16.8 - 46.2 % [facility] Monocyte % 9.8 5.1 - 12.5 % [facility] Eosinophil % 0.8 0.4 - 6.3 % [facility] Basophil % 0.7 0.2 - 1.4 % [facility] IGRE % 0.3 0.1 - 1.5 % [facility] Comment:IGRE % count include s Metamyelocytes, Myelocytes, and Promyelocytes. Neutrophil Abs 4.60 1.95 - 7.25 K/uL [facility] Lymphocyte Abs 0.69(L) 1.01 - 3.24 K/uL [facility] Monocyte Abs 0.59 0.24 - 0.85 K/uL [facility] Eosinophil Abs 0.05 0.02 - 0.50 K/uL [facility] Basophil Abs 0.04 0.02 - 0.09 K/uL [facility] IG Abs 0.02 0.01 - 0.12 K/uL [facility] Blood 10/03/2022 12:1 7 PM CDT 10/03/2022 12:22 PM CDT Josiah Garay MD LAB BLOOD ORDERABLES Performing Organization Address City/[facility]/ZIP Co de Phone Number [facility] Unless otherwise noted, all lab tests performed by: Division of Pathology and Laboratory Medicine [address] [place] [address] [phone] * Prothrombin Time with INR (10/03/2022 12:17 PM CDT) PT 13.7 11.9 - 14.5 second(s) [facility] INR 1.06 0.87 - 1.12 [facility] Blood 10/03/2022 12:1 7 PM CDT 10/03/2022 12:22 PM CDT Josiah Garay MD LAB BLOOD ORDERABLES [facility] Unless otherwise noted, all lab tests performed by: Division of Pathology and Laboratory Medicine [address] [place] [address] [phone] * BUN (10/03/2022 12:17 PM CDT) BUN 13 6 - 23 mg/dL [facility] Blood 10/03/2022 12:1 7 PM CDT 10/03/2022 12:25 PM CDT Josiah Garay MD LAB BLOOD ORDERABLES Performing Organization Address [facility] de Phone Number [facility] Unless otherwise noted, all lab tests performed by: Division of Pathology and Laboratory Medicine [address] [place] [address] [phone] * ALT (10/03/2022 12:17 PM CDT) ALT 10 <=41 U/L [place] [facility] Blood 10/03/2022 12:1 7 PM CDT 10/03/2022 12:25 PM CDT Josiah Garay MD LAB BLOOD ORDERABLES Performing Organization Address [facility] Phone Number [facility] Unless otherwise noted, all lab tests performed by: Division of Pathology and Laboratory Medicine [address] [place] [address] [phone] * Aspartate Aminotransferase (10/03/2022 12:17 PM CDT) AST 17 <=40 U/L [facility] Blood 10/03/2022 12:1 7 PM CDT 10/03/2022 12:25 PM CDT Josiah Garay MD LAB BLOOD ORDERABLES Performing Organization Address [facility] de Phone Number [facility] Unless otherwise noted, all lab tests performed by: Division of Pathology and Laboratory Medicine [address] [place] [address] [phone] * Total Protein (10/03/2022 12:17 PM CDT) Total Protein 6.8 6.4 - 8.3 g/dL [facility] Blood 10/03/2022 12:1 7 PM CDT 10/03/2022 12:25 PM CDT Josiah Garay MD LAB BLOOD ORDERABLES Performing Organization Address [facility]/ZIP Co de Phone Number [facility] Unless otherwise noted, all lab tests performed by: Division of Pathology and Laboratory Medicine [address] [place] [address] [phone] * Phosphorus Level (10/03/2022 12:17 PM CDT) Phosphorus 3.1 2.5 - 4.5 mg/dL [facility] Blood 10/03/2022 12:1 7 PM CDT 10/03/2022 12:25 PM CDT Josiah Garay MD LAB BLOOD ORDERABLES Performing Organization Address [facility] Co de Phone Number [facility] Unless otherwise noted, all lab tests performed by: Division of Pathology and Laboratory Medicine [address] [place] [address] [phone] * Alkaline Phosphatase (10/03/2022 12:17 PM CDT) Alk Phos 82 40 - 129 U/L [facility] Blood 10/03/2022 12:1 7 PM CDT 10/03/2022 12:25 PM CDT Josiah Garay MD LAB BLOOD ORDERABLES Performing Organization Address [facility] Co de Phone Number [facility] Unless otherwise noted, all lab tests performed by: Division of Pathology and Laboratory Medicine [address] [place] [address] [phone] * Magnesium Level (10/03/2022 12:17 PM CDT) Magnesium 2.1 1.6 - 2.6 mg/dL [facility] Blood 10/03/2022 12:1 7 PM CDT 10/03/2022 12:25 PM CDT Josiah Garay MD LAB BLOOD ORDERABLES Performing Organization Address [facility] Co de Phone Number [facility] Unless otherwise noted, all lab tests performed by: Division of Pathology and Laboratory Medicine [address] [place] [address] [phone] * (ABNORMAL) LDH (10/03/2022 12:17 PM CDT) Pathologist [facility] LDH 494(H) 135 - 225 U/L [facility] Comment: Specimen is hemolyzed. Results may be falsely elevated. Repeat test if needed. Results greater than 1651 U/L may not be reliable due to matrix effect with extended dilution as it exceeds the machine bobbin winder's recommended limit. Caution should be exercised when interpreting such values and done in conjunction with clinical context. Blood 10/03/2022 12:1 7 PM CDT 10/03/2022 12:25 PM CDT Josiah Garay MD LAB BLOOD ORDERABLES Performing Organization Address [facility] de Phone Number [facility] Unless otherwise noted, all lab tests performed by: Division of Pathology and Laboratory Medicine [address] [place] [address] [phone] * Glucose Level (10/03/2022 12:17 PM CDT) [facility] Glucose Level 90 70 - 99 mg/dL [facility] Comment: Effective 10/08/15, the glucose reference intervals have been updated based on [place] [employer] guidelines (Standards of Medical Care in Diabetes 2016. Diabetes Care 2016; 39: S13-S22). Fasting blood glucose: Normal: 70-99 mg/dL Impaired fasting glucose (increased risk for diabetes or pre-diabetes): 100- 125 mg/dL Diabetes mellitus: >/=126 mg/dL Random blood glucose: Normal: 70-199 mg/dL Note: Random glucose >100 mg/dL is associated with increased risk for diabetes Blood 10/03/2022 12:1 7 PM CDT 10/03/2022 12:25 PM CDT Josiah Garay MD LAB BLOOD ORDERABLES Performing Organization Address [facility] de Phone Number [facility] Unless otherwise noted, all lab tests performed by: Division of Pathology and Laboratory Medicine [address] [place] [address] [phone] * Calcium Level (10/03/2022 12:17 PM CDT) [facility] Calcium Lvl 9.1 8.4 - 10.2 mg/dL [facility] Blood 10/03/2022 12:1 7 PM CDT 10/03/2022 12:25 PM CDT Josiah Garay MD LAB BLOOD ORDERABLES Performing Organization Address City/[facility] Co de Phone Number [facility] Unless otherwise noted, all lab tests performed by: Division of Pathology and Laboratory Medicine [address] [place] [address] [phone] * Albumin Level (10/03/2022 12:17 PM CDT) Albumin Lvl 4.2 3.5 - 5.2 gm/dL [facility] Blood 10/03/2022 12:1 7 PM CDT 10/03/2022 12:25 PM CDT Josiah Garay MD LAB BLOOD ORDERABLES Performing Organization Address [facility] Co de Phone Number [facility] Unless otherwise noted, all lab tests performed by: Division of Pathology and Laboratory Medicine [address] [place] [address] [phone] * Electrolyte Panel (10/03/2022 12:17 PM CDT) Sodium Lvl 137 136 - 145 mEq/L [facility] Potassium Lvl 3.8 3.5 - 5.1 mEq/L [facility] Chloride 103 98 - 107 mEq/L [facility] CO2 24 22 - 29 mEq/L [facility] Anion Gap 10 4 - 14 mEq/L [facility] Blood 10/03/2022 12:1 7 PM CDT 10/03/2022 12:25 PM CDT Josiah Garay MD LAB BLOOD ORDERABLES [facility] Unless otherwise noted, all lab tests performed by: Division of Pathology and Laboratory Medicine [address] [place] [id number] after 06/30/2022 Advance Directives Latest Code Status on File Code Status Date Activated Date Inactivated Comments Full Code 05/22/2021 4:44 PM 05/26/2021 7:54 PM Code Status History Code Status Date Activated Date Inactivated Comments Full Code 05/22/2021 4:44 PM 05/22/2021 4:44 PM Full Code 08/21/2020 11:52 PM 08/24/2020 5:55 PM Full Code 03/02/2020 8:29 PM 03/07/2020 11:09 PM Full Code 02/26/2020 9:33 PM 02/29/2020 8:36 PM Care Teams Gm Mobile Relationship Specialty Start Date End Date Pako Lopez MD [facility]: [address] [place] [id number] PCP - External Referring Urology 10/11/19 Nick Delgado MD [address] [place] [id number] PCP - General Genitourinary Oncology 01/25/20 Marek Saini MD [address] [place] [id number] Consulting Physician Radiation Oncology 02/14/20 Cristian Willams MD [address] [place] [id number] Consulting Physician Supportive Care 10/07/20 Navin Lal MD [address] [place] [id number] Consulting Physician Gastroenterology, Hepatology and Nutrition 10/31/20
[2023-06-30] MEDS ORDERED: MORPHINE 4 MG/ML SYR ONE (10:05)
[2023-06-30] MEDS ORDERED: ONDANSETRON 4 MG/2 ML VIAL ONE (10:05)
[2023-06-30 10:16] LABS: Absolute Eosinophils 0.1 K/uL (0-0.5); Absolute Lymphocytes (CBC) 0.7 K/uL (0.7-4.9); Absolute Monocytes 0.5 K/uL (0.1-1.3); Absolute Neutrophil 3.8 K/uL (1.8-8.0); Basophils % 0.9 % (0-1.3); Eosinophils % 2.6 % (0-4.4); Hematocrit 39.8 % (39.6-49.0); Hemoglobin 13.2 g/dL (13.6-17.9); Lymphocytes % 13.9 % (15.3-44.8); MCH 29.8 pg (27.0-35.0); MCHC 33.2 g/dL (32.0-36.0); MCV 89.9 fL (80-100); MPV 8.5 fL (7.6-11.3); Monocytes % 10.3 % (3.3-12.3); Neutrophils % 72.3 % (41.7-73.7); Nucleated Red Blood Cells % 0.1 % (0-0); Platelets 198 thou/uL (152-406); RBC Red Blood Cell Count 4.43 M/uL (4.33-5.43); Red Cell Distribution Width 15.3 % (12.1-15.2)
[2023-06-30 10:17] LABS: PT Prothrombin Time 13.3 SECONDS (9.5-12.5); Protime INR 1.22
[2023-06-30 10:38] LABS: Albumin 3.4 g/dL (3.4-5.0); Anion Gap 7.1 mEq/L (5.0-15.0); Bilirubin Total 0.7 mg/dL (0.2-1.0); Globulin 3.4 g/dL (2.3-3.5); Potassium 4.1 mEq/L (3.5-5.1); Protein, Total 6.8 g/dL (6.4-8.2); Troponin High Sensitivity 9.7 pg/mL (<58.9)
--- NOTE | 2023-06-30 11:16 | RAD REPORT ---
EXAM DESCRIPTION: CT - Abdomen Pelvis W Contrast - 06/30/2023 10:53 am CLINICAL HISTORY: Abdominal pain COMPARISON: September 2022 TECHNIQUE: Computed axial tomography of the abdomen pelvis was obtained. 100 cc Isovue-300 was admin istered intravenously. Oral contrast was not requested which limits evaluation of bowel and appendix All CT scans are performed using dose optimization technique as appropriate and may include automated exposure control or mA/KV adjustment according to patient size. FINDINGS: Cholecystectomy. Prominence of biliary tree and pancreatic duct without significant change . Liver and pancreas otherwise unremarkable Spleen, adrenals and kidneys without significant abnormality Mild prostatic enlargement. Large number of diverticula stem from the colon without evidence of diverticulitis. 3 centimeter narr owing sigmoid colon. Mild chronic posterior subluxation L1 on L2 and mild anterior subluxation L3 on L4. Spondylosis. IMPRESSION: Prominence of the biliary tree and pancreatic duct without significant change from 2022 probably not significant in this patient status post cholecystectomy. Pathology in the region of the pancreatic head can also result in this appearance. This should correlated clinically and with approp riate lab values. 3 centimeter area of narrowing involving the sigmoid colon could be secondary to spasm or neoplasm. F ollow-up is recommended
--- NOTE | 2023-06-30 11:41 | EDPHYS ---
Physician Documentation [facility] Name: Jesse Serna Age: 82 yrs Sex: Male : 1940 Arrival Date: 06/30/2023 Time: 09:55 Bed 16 Private MD: ED Physician Eddie Castillo HPI: 06/29 10:04 This 82 yrs old Male presents to ER via EMS with complaints of abdominal pain. sp3 10:04 82-year-old male with a history of atrial fibrillation, hypertension, prostate cancer sp3 in remission, multiple UTIs in the past presents with epigastric pain for 1 day. Patient has had history of the same and also has been diagnosed with gastritis. He denies any chest pain, shortness of breath, back pain, lower abdominal pain, syncope, near syncope, symptoms, trauma, fever, or any other signs or symptoms on ROS at this time.. Historical: - Allergies: 09:58 Aspirin; mb9 - Home Meds: 09:58 Eliquis oral [Active]; enalapril maleate Oral [Active]; Protonix Oral [Active]; mb9 - PMHx: 09:58 Arthritis; Atrial fibrillation; Hypertension; prostate cancer- in remission; mb9 - PSHx: 09:58 Appendectomy; mb9 - Immunization history:: Adult Immunizations up to date. - Infectious Disease History:: Denies. - Social history:: Smoking status: Patient denies any tobacco usage or history of. ROS: 10:06 Constitutional: Negative for fever, chills, and weight loss, Eyes: Negative for injury, sp3 pain, redness, and discharge, ENT: Negative for injury, pain, and discharge, Neck: Negative for injury, pain, and swelling, Cardiovascular: Negative for chest pain, palpitations, and edema, Respiratory: Negative for shortness of breath, cough, wheezing, and pleuritic chest pain, Back: Negative for injury and pain, MS/Extremity: Negative for injury and deformity, Skin: Negative for injury, rash, and discoloration, Neuro: Negative for headache, weakness, numbness, tingling, and seizure, Psych: Negative for depression, anxiety, suicide ideation, homicidal ideation, and hallucinations, Allergy/Immunology: Negative for hives, rash, and allergies, Endocrine: Negative for neck swelling, polydipsia, polyuria, polyphagia, and marked weight changes, Hematologic/Lymphatic: Negative for swollen nodes, abnormal bleeding, and unusual bruising, 10:06 All other systems are negative, Exam: 10:06 Constitutional: This is a well developed, well nourished patient who is awake, alert, sp3 and in no acute distress. Head/Face: Normocephalic, atraumatic. Eyes: Pupils equal round and reactive to light, extra-ocular motions intact. Lids and lashes normal. Conjunctiva and sclera are non-icteric and not injected. Cornea within normal limits. Periorbital areas with no swelling, redness, or edema. Neck: Trachea midline, no thyromegaly or masses palpated, and no cervical lymphadenopathy. Supple, full range of motion without nuchal rigidity, or vertebral point tenderness. No Meningismus. Chest/axilla: Normal chest wall appearance and motion. Nontender with no deformity. No lesions are appreciated. Cardiovascular: Regular rate and rhythm with a normal S1 and S2. No gallops, murmurs, or rubs. Normal PMI, no JVD. No pulse deficits. Respiratory: Lungs have equal breath sounds bilaterally, clear to auscultation and percussion. No rales, rhonchi or wheezes noted. No increased work of breathing, no retractions or nasal flaring. Back: No spinal tenderness. No costovertebral tenderness. Full range of motion. Skin: Warm, dry with normal turgor. Normal color with no rashes, no lesions, and no evidence of cellulitis. MS/ Extremity: Pulses equal, no cyanosis. Neurovascular intact. Full, normal range of motion. Neuro: Awake and alert, GCS 15, oriented to person, place, time, and situation. Cranial nerves II-XII grossly intact. Motor strength 5/5 in all extremities. Sensory grossly intact. Cerebellar exam normal. Normal gait. Psych: Awake, alert, with orientation to person, place and time. Behavior, mood, and affect are within normal limits. 10:06 Abdomen/GI: Patient has pain in epigastrium with palpation without peritoneal signs, rebound or guarding. No CVA tenderness., 10:20 ECG was reviewed by the Attending Physician. EKG demonstrates sinus bradycardia at 48 sp3 bpm with right bundle branch block nonspecific diffuse ST's ST changes without evidence of acute ischemia. Vital Signs: 09:57 BP 179 / 95; Pulse 54; Resp 16; Temp 97.7; Pulse Ox 97% ; Weight 63.5 kg; Height 5 ft. mb9 4 in. ; 10:00 BP 185 / 87; Pulse 52; Resp 16 S; Pulse Ox 98% on R/A; aa5 11:00 BP 145 / 87; Pulse 56; Resp 16 S; Pulse Ox 98% on R/A; aa5 09:57 Body Mass Index 24.03 (63.50 kg, 162.56 cm) mb9 MDM: 10:00 Patient medically screened. sp3 10:07 Data reviewed: vital signs, nurses notes, old medical records, lab test result(s), EKG, sp3 radiologic studies. ED course: 82-year-old with recurrent abdominal pain on Eliquis. Differential diagnosis includes gastritis, esophageal reflux, pancreatitis, biliary pathology, ACS spectrum, and to a lower likelihood vascular pathology including aortic pathology, among others. Workup will include CT scan of the abdomen pelvis, laboratory values, UA and general observation with morphine and ondansetron for symptomatic control. Disposition pending workup and patient course.. 11:40 ED course: CT demonstrates no significant abnormality and laboratory values are within sp3 normal limits. I have advised patient to follow-up with his primary doctor on the sigmoid colon narrowing. He acknowledged. Patient will be safely discharged home at this time. Pain is improved.. 06/29 09:59 Order name: CBC with Diff; Complete Time: 11:25 sp3 06/29 09:59 Order name: CMP; Complete Time: 11:25 sp3 06/29 09:59 Order name: Lipase; Complete Time: 11:25 sp3 06/29 09:59 Order name: Urinalysis w/ reflexes; Complete Time: 12:01 sp3 06/29 09:59 Order name: Troponin High Sensitivity; Complete Time: 11:25 sp3 06/29 09:59 Order name: PT-INR; Complete Time: 11:25 sp3 06/29 09:59 Order name: CT Abd/Pelvis - IV Contrast Only; Complete Time: 11:25 sp3 06/29 09:59 Order name: EKG; Complete Time: 09:59 sp3 06/29 09:59 Order name: IV Saline Lock; Complete Time: 10:07 sp3 06/29 09:59 Order name: Labs collected and sent; Complete Time: 10:07 sp3 06/29 09:59 Order name: EKG - Nurse/Tech; Complete Time: 10:25 sp3 Administered Medications: 10:11 Drug: Ondansetron IVP 4 mg IVP once; over 2 minutes Route: IVP; Site: left antecubital; aa5 10:30 Follow up: Response: No adverse reaction aa5 10:13 Drug: morphine IVP or IV 4 mg IVP once over 4 mins Route: IVP; Infused Over: 4 mins; aa5 Site: left antecubital; 10:30 Follow up: Response: No adverse reaction aa5 Disposition Summary: 06/30/23 11:40 Discharge Ordered Notes: Location: Home sp3 Condition: Stable sp3 Diagnosis - Abdominal pain, possible sigmoid mass, gastritis sp3 Followup: sp3 - With: Private Physician - When: Upon discharge from the Emergency Department - Reason: Continuance of care Discharge Instructions: - Discharge Summary Sheet sp3 - Abdominal Pain, Adult sp3 Forms: - Medication Reconciliation Form sp3 - Thank You Letter sp3 - Antibiotic Education sp3 - Prescription Opioid Use sp3 - Patient Portal Instructions sp3 - Leadership Thank You Letter sp3 Prescriptions: - tamsulosin 0.4 mg Oral capsule - take 1 capsule ORAL route every 24 hours; 30 capsule; Refills: 0, Product sp3 Selection Permitted Signatures: Dispatcher [employer] EDMelisa Ashraf, RN RN aa5 Eddie Castillo MD MD sp3 Petra Maza RN RN mb9 Corrections: (The following items were deleted from the chart) 10:00 09:59 CBC+H.LAB.BRZ ordered. EDMS EDMS 10:00 09:59 COMPREHENSIVE METABOLIC PANEL+C.LAB.BRZ ordered. EDMS EDMS 10:00 09:59 LIPASE+C.LAB.BRZ ordered. EDMS EDMS 10:00 09:59 Urinalysis+U.LAB.BRZ ordered. EDMS EDMS 10:00 09:59 Troponin High Sensitivity+C.LAB.BRZ ordered. EDMS EDMS 10:00 09:59 PROTIME (+INR)+COAG.LAB.BRZ ordered. EDMS EDMS
--- NOTE | 2023-06-30 11:41 | ER ---
Nurse's Notes [facility] Name: Jesse Serna Age: 82 yrs Sex: Male : 1940 Arrival Date: 06/30/2023 Time: 09:55 Bed 16 Private MD: Diagnosis: Abdominal pain, possible sigmoid mass, gastritis Presentation: 06/29 09:57 Chief complaint: EMS states: "toned out for Abdominal pain and heartburn that has been mb9 occurring since last night. pt denies N/V/D". Coronavirus screen: At this time, the client does not indicate any symptoms associated with coronavirus-19. Ebola Screen: No symptoms or risks identified at this time. Initial Sepsis Screen: Does the patient meet any 2 criteria? No. Patient's initial sepsis screen is negative. Does the patient have a suspected source of infection? No. Patient's initial sepsis screen is negative. Risk Assessment: Do you want to hurt yourself or someone else? Patient reports no desire to harm self or others. Onset of symptoms was June 30, 2023. 09:57 Method Of Arrival: EMS: [facility] mb9 09:57 Acuity: KT 3 mb9 Historical: - Allergies: 09:58 Aspirin; mb9 - Home Meds: 09:58 Eliquis oral [Active]; enalapril maleate Oral [Active]; Protonix Oral [Active]; mb9 - PMHx: 09:58 Arthritis; Atrial fibrillation; Hypertension; prostate cancer- in remission; mb9 - PSHx: 09:58 Appendectomy; mb9 - Immunization history:: Adult Immunizations up to date. - Infectious Disease History:: Denies. - Social history:: Smoking status: Patient denies any tobacco usage or history of. Screenin:05 [facility] ED Fall Risk Assessment (Adult) History of falling in the last 3 months, aa5 including since admission No falls in past 3 months (0 pts) Confusion or Disorientation No (0 pts) Intoxicated or Sedated No (0 pts) Impaired Gait No (0 pts) Mobility Assist Device Used No (0 pt) Altered Elimination No (0 pt) Score/Fall Risk Level 0 - 2 = Low Risk Oriented to surroundings, Maintained a safe environment, Educated pt \\T\\ family on fall prevention, incl call for assistance when getting out of bed. Abuse screen: Denies threats or abuse. Nutritional screening: No deficits noted. Tuberculosis screening: No symptoms or risk factors identified. Assessment: 10:05 General: Appears uncomfortable, Behavior is calm, cooperative. Pain: Complains of pain aa5 in epigastric area Pain currently is 9 out of 10 on a pain scale. Quality of pain is described as burning, indigestion Pain began today around 0600 Is continuous. Neuro: Level of Consciousness is awake, alert, obeys commands, Oriented to person, place, time, situation. Cardiovascular: Denies chest pain, Heart tones S1 S2 present Rhythm is regular. Respiratory: Airway is patent Respiratory effort is even, unlabored, Respiratory pattern is regular, symmetrical. GI: Abdomen is round non-distended, Bowel sounds present X 4 quads. Abd is soft and non tender X 4 quads. Patient currently denies diarrhea, nausea, vomiting. : No signs and/or symptoms were reported regarding the genitourinary system. EENT: No signs and/or symptoms were reported regarding the EENT system. Derm: Skin is dry, Skin is normal, Skin temperature is warm. Musculoskeletal: Range of motion: intact in all extremities. 10:54 Reassessment: Pt currently at CT . aa5 11:00 Reassessment: Patient states feeling better. Patient states symptoms have improved. aa5 Pain: Pain currently is 7 out of 10 on a pain scale. Neuro: Level of Consciousness is awake, alert, obeys commands, Oriented to person, place, time, situation. Respiratory: Airway is patent Respiratory effort is even, unlabored, Respiratory pattern is regular, symmetrical. Derm: Skin is dry, Skin is normal, Skin temperature is warm. Vital Signs: 09:57 BP 179 / 95; Pulse 54; Resp 16; Temp 97.7; Pulse Ox 97% ; Weight 63.5 kg; Height 5 ft. mb9 4 in. ; 10:00 BP 185 / 87; Pulse 52; Resp 16 S; Pulse Ox 98% on R/A; aa5 11:00 BP 145 / 87; Pulse 56; Resp 16 S; Pulse Ox 98% on R/A; aa5 09:57 Body Mass Index 24.03 (63.50 kg, 162.56 cm) mb9 ED Course: 09:57 Patient arrived in ED. mb9 09:58 Eddie Castillo MD is Attending Physician. sp3 09:58 Triage completed. mb9 09:58 Arm band placed on. mb9 10:05 Patient has correct armband on for positive identification. Placed in gown. Bed in low aa5 position. Call light in reach. Side rails up X2. Client placed on continuous cardiac and pulse oximetry monitoring. NIBP monitoring applied. court monitor on. Pulse ox on. NIBP on. 10:07 Initial lab(s) drawn, by me, sent to lab. Inserted saline lock: 20 gauge in left mb9 antecubital area, using aseptic technique. Blood collected. 10:07 PT-INR Sent. mb9 10:07 Troponin High Sensitivity Sent. mb9 10:07 CBC with Diff Sent. mb9 10:07 CMP Sent. mb9 10:07 Lipase Sent. mb9 10:10 EKG done, by ED staff, reviewed by Eddie Castillo MD. aa5 10:25 Melisa Sampson, RN is Primary Nurse. aa5 10:54 CT Abd/Pelvis - IV Contrast Only In Process Unspecified. EDMS 12:30 Provided Education on: POC. Verbalized understanding. . me1 06/30 12:16 No provider procedures requiring assistance completed. me1 12:16 IV discontinued, intact, bleeding controlled, No redness/swelling at site. Pressure me1 dressing applied. Administered Medications: 06/29 10:11 Drug: Ondansetron IVP 4 mg IVP once; over 2 minutes Route: IVP; Site: left antecubital; aa5 10:30 Follow up: Response: No adverse reaction aa5 10:13 Drug: morphine IVP or IV 4 mg IVP once over 4 mins Route: IVP; Infused Over: 4 mins; aa5 Site: left antecubital; 10:30 Follow up: Response: No adverse reaction aa5 Medication: 10:30 VIS not applicable for this client. aa5 Outcome: 11:40 Discharge ordered by . sp3 12:30 Patient left the ED. me1 12:30 Discharged to home ambulatory, me1 12:30 Condition: stable 12:30 Instructed on discharge instructions, follow up and referral plans. medication usage, Demonstrated understanding of instructions, follow-up care, medications, Prescriptions given X 1, Signatures: Dispatcher [employer] EDNY Melisa Sampson, RN RN aa5 Eddie Castillo MD MD sp3 Link, Petra Rodriguez, RN RN mb9 Naomi Archer RN RN me1
[2023-06-30 11:58] LABS: Specific Gravity 1.013 (1.005-1.030); Urine Bilirubin NEGATIVE (Negative); Urine Blood Negative (Negative); Urine Clarity Clear (Clear); Urine Color Colorless (Yellow); Urine Glucose NEGATIVE (Negative); Urine Ketones NEGATIVE (Negative); Urine Microscopic Reflex YN NO UMIC; Urine Nitrite NEGATIVE (Negative); Urine Protein NEGATIVE (Negative); Urine Urobilinogen Normal (Normal)
[2023-06-30 21:00] VITALS: BP 145/87; TEMP 97.7; O2SAT 98
== END 2023-06-30 12:30 | disposition home or self-care (01) ==
LOC: ER 09:55
DX: K29.70 Gastritis, unspecified, without bleeding (principal); Z88.6 Allergy status to analgesic agent
CPT/HCPCS: 36415; 74177; 80053; 81003; 83690; 84484; 85025; 85610; 93005; 96374; 96375; 99285; J2405; Q9967

== ENCOUNTER 2023-08-12 11:49 | Emergency (ER) | payer SELFPAY ==
--- OUTSIDE RECORDS SUMMARY | 2023-08-12 11:52 | XMS REPORT | Clinical Summary ---
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 Active aspirin 81 mg chewable tabletIndications:a EXFO Chew 1 tablet (81 mg) daily. 05/27/2021 Active apixaban (Eliquis) 5 mg tabletIndications:pre [...] mg) by mouth twice daily. 14 tablet 10/03/2022 Active Active Problems Patient Care Coordination No te Formatting of this note migh t be different from the original. Patient with cognitive issues and needs assistance with ADLs. Please allow daughter to accompany him to clinic visits and procedures . The following people are approved to obtain medical information about the patient via phone: Contact #1: Name: Latoya Serna ( Daughter ) [phone] Contact #2: Name: Phone Number: Contact #3: [...] Encounters Date Type Department Care Team Description 08/09/2023 Orders Only G[facility] - Gastroenterology, Hepatology & Nutrition [address] [facility] [address] [facility], [address]th [place] [address] Ambrosio Tran PA-C 10/20/2022 Telephone Gen[facility] - Oncology [address] [facility], [address]th [place] [address] Nelda Matthew RN 10/20/2022 Telephone [facility] - Oncology [address] [facility], 7th [place] [address] Nelda Matthew RN 10/05/2022 Orders Only Radiation Oncology [address] [facility], 1st [place] [address] Kirstie Joyner APRN Adenocarcinoma of prostate (Primary Dx) 10/03/2022 11:54 AM CDT - 10/03/2022 3:08 PM CDT [facility] [address] [facility] [address] Bldg, 1st [place] [address] Josiah Garay MD Hematuria (Primary Dx); Hypertension; Urinary tract infection Discharge Disposition: Home 10/03/2022 Travel after 08/12/2022 Immunizations Name Administration Dates Next Due Kendra SARS-CoV-2 Vaccination 05/31/2020 Surgical History Surgery Date Site/Laterality Comments LAPAROSCOPIC CHOLECYSTECOMY PROSTATE BIOPSY 09/14/2019 HERNIA REPAIR Bilateral SHOULDER SURGERY 03/14/2011 - 03/13/2012 Right MT COLONOSCOPY FLX DX W/COLLJ SPEC WHEN PFRMD 07/28/2020 N/A Procedure: DIAGNOSTIC FLEXIBLE COLONOSCOPY PROXIMAL TO SPLENIC FLEXURE; Surgeon: Mian Rachel MD; Location: MAIN ENDOSCOPY; Service: GASTROENTEROLOGY Medical History Medical History Date Comments Essential hypertension Chronic depression Adenocarcinoma of prostate 09/14/2019 Social History Tobacco Use Types Packs/Day Years Used Date Smoking Tobacco: Former Cigarettes 0.5 43 1 965 - 2007 Smokeless Tobacco: Never Comments:used to smoke; quit [...] Sex Assigned at Male 05/22/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 Gender Identity Male 05/22/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 Urinalysis results reported by the [facility] using existing instrumentation, as well as Urinalysis testing performed manually or by backup methodology at the [facility] [place] will remain relatively unchanged. New reporting parameters and units will not be reported for all campuses. UA RBC >182(H) 0 - 2 /HPF [facility] UA Mucous NOT SEEN Not Seen-Trac e /HPF [facility] UA Bacteria NOT SEEN NOT SEEN /HPF [facility] UA Squam Epi NOT SEEN None-Occa sional /HPF [facility] Urine 10/03/2022 12:3 5 PM CDT 10/03/2022 12:40 PM CDT Josiah Garay MD LAB BLOOD ORDERABLES [facility] Unless otherwise noted, all lab tests performed by: Division of Pathology and Laboratory Medicine [address] [place] [id number] * (ABNORMAL) Urinalysis w/Microscopic if Indicated (10/03/2022 12:35 PM CDT) Pathologist [facility] UA Color Audelia(A) Straw-Yel low [facility] UA Appear Cloudy(A) Clear [facility] UA Glucose NEG NEG mg/dL [facility] UA Bili NEG NEG [facility] UA Ketones 20(A) NEG mg/dL [facility] UA Spec Grav 1.014 1.003 - 1.035 [facility] UA Blood Large(A) NEG [facility] UA pH 7.0 5.0 - 9.0 [facility] UA Protein 100(A) NEG mg/dL [facility] UA Urobilinogen NEG NEG [facility] UA Nitrite NEG NEG [facility] UA Leuk Est Small(A) NEG [facility] Urine 10/03/2022 12:3 5 PM CDT 10/03/2022 12:40 PM CDT Josiah Garay MD URINE ORDERABLES Performing Organization Address City/[facility] Co de Phone Number [facility] Unless otherwise noted, all lab tests performed by: Division of Pathology and Laboratory Medicine [address] [place] [id number] * (ABNORMAL) Urine Culture (10/03/2022 12:35 PM CDT) [facility] Final Report <10,000 cfu/ml Normal site sapphire present. Generally of low significance. Correlate with clinical data and culture history. (A) [facility] Urine 10/03/2022 12:3 5 PM CDT 10/03/2022 2:32 PM CDT Josiah Garay MD MICROBIOLOGY - GENER AL ORDERABLES Performing Organization Address City/[facility]/ZIP Co de Phone Number [facility] Unless otherwise noted, all lab tests performed by: Division of Pathology and Laboratory Medicine [address] [place] [address] [phone] * .Serum Creatinine (10/03/2022 12:17 PM CDT) Creatinine 0.78 0.67 - 1.17 mg/dL [facility] Blood 10/03/2022 12:1 7 PM CDT 10/03/2022 12:25 PM CDT Josiah Garay MD LAB BLOOD ORDERABLES [facility] Unless otherwise noted, all lab tests performed by: Division of Pathology and Laboratory Medicine [address] [place] [address] [phone] * (ABNORMAL) .CBC (10/03/2022 12:17 PM CDT) Pathologist [facility] WBC 6.0 4.1 - 10.5 K/uL [facility] RBC 4.48 4.30 - 6.04 M/uL [facility] Hgb 13.1(L) 13.3 - 17.4 gm/dL [facility] Hct 40.4 39.5 - 51.8 % [facility] MCV 90 82 - 99 fL [facility] MCH 29.2 26.6 - 33.2 pg [facility] MCHC 32.4 31.1 - 35.2 gm/dL [facility] RDW-SD 50.4(H) 37.5 - 49.7 fL [facility] RDW-CV 15.3 11.6 - 15.5 % [facility] Platelet count 181 160 - 397 K/uL [facility] MPV 10.7 9.1 - 12.6 fL [facility] INRBC 0.0 0.0 - 0.1 /100 WBC [facility] Comment: The INRBC (instrument NRBC) value [...] MD LAB BLOOD ORDERABLES Performing Organization Address City/[facility]/ZIP Co de Phone Number [facility] Unless otherwise noted, all lab tests performed by: Division of Pathology and Laboratory Medicine [address] [place] [id number] * Glomerular Filtration Rate (10/03/2022 12:17 PM CDT) eGFR 90 >=60 mL/min/1.7 3 sq. m [facility] Comment: The eGFRcr is calculated with [...] CDT Josiah Garay MD LAB BLOOD ORDERABLES [facility] Unless otherwise noted, all lab tests performed by: Division of Pathology and Laboratory Medicine [address] [place] [id number] * Fractionated Bilirubin (10/03/2022 12:17 PM CDT) Pathologist [facility] Bili Total 0.8 <=1.2 mg/dL [facility] Comment: Indocyanine Green (ICG) may cause falsely elevated bilirubin results. Total and direct bilirubin must not be measured from samples containing indocyanine green. False elevation of total bilirubin can be seen in patients with IgG concentrations above 28 g/L. Bili Direct 0.2 <=0.3 mg/dL [facility] Comment:Indocyanine Green (I CG) may cause falsely elevated bilirubin results. Total and direct bilirubin must not be measured from samples containing indocyanine green. Bili Indirect 0.6 0.0 - 0.9 mg/dL [facility] Blood 10/03/2022 12:1 7 PM CDT 10/03/2022 12:25 PM CDT Josiah Garay MD LAB BLOOD ORDERABLES Performing Organization Address City/[facility]/ZIP Co de Phone Number [facility] Unless otherwise noted, all lab tests performed by: Division of Pathology and Laboratory Medicine [address] [place] [phone] * aPTT (10/03/2022 12:17 PM CDT) [facility] aPTT 31.7 24.1 - 35.5 second(s) [facility] Blood 10/03/2022 12:1 7 PM CDT 10/03/2022 12:22 PM CDT Josiah Garay MD LAB BLOOD ORDERABLES Performing Organization Address [facility] de Phone Number [facility] Unless otherwise noted, all lab tests performed by: Division of Pathology and Laboratory Medicine [address] [place] [phone] * (ABNORMAL) Differential (10/03/2022 12:17 PM CDT) [facility] Neutrophil % 76.9(H) 43.2 - 72.7 % [facility] Lymphocyte % 11.5(L) 16.8 - 46.2 % [facility] Monocyte % 9.8 5.1 - 12.5 % [facility] Eosinophil % 0.8 0.4 - 6.3 % [facility] Basophil % 0.7 0.2 - 1.4 % [facility] IGRE % 0.3 0.1 - 1.5 % [facility] Comment:IGRE % count include s Metamyelocytes, Myelocytes, and Promyelocytes. Neutrophil Abs 4.60 1.95 - 7.25 K/uL [facility] Lymphocyte Abs 0.69(L) 1.01 - 3.24 K/uL [facility] Monocyte Abs 0.59 0.24 - 0.85 K/uL [facility] Eosinophil Abs 0.05 0.02 - 0.50 K/uL [facility] Basophil Abs 0.04 0.02 - 0.09 K/uL [facility] IG Abs 0.02 0.01 - 0.12 K/uL [facility] Blood 10/03/2022 12:1 7 PM CDT 10/03/2022 12:22 PM CDT Josiah Garay MD LAB BLOOD ORDERABLES Performing Organization Address City/[facility]/ZIP Co de Phone Number [facility] Unless otherwise noted, all lab tests performed by: Division of Pathology and Laboratory Medicine [address] [place] [id number] * Prothrombin Time with INR (10/03/2022 12:17 PM CDT) PT 13.7 11.9 - 14.5 second(s) [facility] INR 1.06 0.87 - 1.12 [facility] Blood 10/03/2022 12:1 7 PM CDT 10/03/2022 12:22 PM CDT Josiah Garay MD LAB BLOOD ORDERABLES Performing Organization Address City/[facility] Co de Phone Number [facility] Unless otherwise noted, all lab tests performed by: Division of Pathology and Laboratory Medicine [address] [place] [address] [phone] * BUN (10/03/2022 12:17 PM CDT) BUN 13 6 - 23 mg/dL [facility] Blood 10/03/2022 12:1 7 PM CDT 10/03/2022 12:25 PM CDT Josiah Garay MD LAB BLOOD ORDERABLES Performing Organization Address City/[facility]/ZIP Co de Phone Number [facility] Unless otherwise noted, all lab tests performed by: Division of Pathology and Laboratory Medicine [address] [place] [address] [phone] * ALT (10/03/2022 12:17 PM CDT) ALT 10 <=41 U/L [facility] Blood 10/03/2022 12:1 7 PM CDT 10/03/2022 12:25 PM CDT Josiah Garay MD LAB BLOOD ORDERABLES Performing Organization Address City/[facility]/ZIP Co de Phone Number [facility] Unless otherwise noted, all lab tests performed by: Division of Pathology and Laboratory Medicine [address] [place] [id number] * Aspartate Aminotransferase (10/03/2022 12:17 PM CDT) AST 17 <=40 U/L [facility] Blood 10/03/2022 12:1 7 PM CDT 10/03/2022 12:25 PM CDT Josiah Garay MD LAB BLOOD ORDERABLES Performing Organization Address City/[facility]/ZIP Co de Phone Number [facility] Unless otherwise noted, all lab tests performed by: Division of Pathology and Laboratory Medicine [address] [place] [phone] * Total Protein (10/03/2022 12:17 PM CDT) Pathologist [facility] Total Protein 6.8 6.4 - 8.3 g/dL [facility] Blood 10/03/2022 12:1 7 PM CDT 10/03/2022 12:25 PM CDT Josiah Garay MD LAB BLOOD ORDERABLES Performing Organization Address City/[facility]/ZIP Co de Phone Number [facility] Unless otherwise noted, all lab tests performed by: Division of Pathology and Laboratory Medicine [address] [place] [address] [phone] * Phosphorus Level (10/03/2022 12:17 PM CDT) Pathologist [facility] Phosphorus 3.1 2.5 - 4.5 mg/dL [facility] Blood 10/03/2022 12:1 7 PM CDT 10/03/2022 12:25 PM CDT Josiah Garay MD LAB BLOOD ORDERABLES Performing Organization Address City/[facility]/ZIP Co de Phone Number [facility] Unless otherwise noted, all lab tests performed by: Division of Pathology and Laboratory Medicine [address] [place] [address] [phone] * Alkaline Phosphatase (10/03/2022 12:17 PM CDT) [facility] Alk Phos 82 40 - 129 U/L [facility] Blood 10/03/2022 12:1 7 PM CDT 10/03/2022 12:25 PM CDT Josiah Garay MD LAB BLOOD ORDERABLES Performing Organization Address [facility] Co de Phone Number [facility] Unless otherwise noted, all lab tests performed by: Division of Pathology and Laboratory Medicine [address] [place] [address] [phone] * Magnesium Level (10/03/2022 12:17 PM CDT) [facility] Magnesium 2.1 1.6 - 2.6 mg/dL [facility] Blood 10/03/2022 12:1 7 PM CDT 10/03/2022 12:25 PM CDT Josiah Garay MD LAB BLOOD ORDERABLES Performing Organization Address City/[facility] Co de Phone Number [facility] Unless otherwise noted, all lab tests performed by: Division of Pathology and Laboratory Medicine [address] [place] [address] [phone] * (ABNORMAL) LDH (10/03/2022 12:17 PM CDT) [facility] LDH 494(H) 135 - 225 U/L [facility] Comment: Specimen is hemolyzed. Results may be falsely elevated. Repeat test if needed. Results greater than 1651 U/L may not be reliable due to matrix effect with extended dilution as it exceeds the engineering and scientific programmer's recommended limit. Caution should be exercised when interpreting such values and done in conjunction with clinical context. Blood 10/03/2022 12:1 7 PM CDT 10/03/2022 12:25 PM CDT Josiah Garay MD LAB BLOOD ORDERABLES Performing Organization Address [facility] de Phone Number [facility] Unless otherwise noted, all lab tests performed by: Division of Pathology and Laboratory Medicine [address] [place] [address] [phone] * Glucose Level (10/03/2022 12:17 PM CDT) Glucose Level 90 70 - 99 mg/dL [facility] Comment: Effective 10/08/15, the glucose reference intervals have been updated based on [place] [employer] guidelines (Standards of Medical Care [...] MD LAB BLOOD ORDERABLES Performing Organization Address City/[facility] de Phone Number [facility] Unless otherwise noted, all lab tests performed by: Division of Pathology and Laboratory Medicine [address] [place] [address] [phone] * Calcium Level (10/03/2022 12:17 PM CDT) Calcium Lvl 9.1 8.4 - 10.2 mg/dL [facility] Blood 10/03/2022 12:1 7 PM CDT 10/03/2022 12:25 PM CDT Josiah Garay MD LAB BLOOD ORDERABLES Performing Organization Address [facility] de Phone Number [facility] Unless otherwise noted, all lab tests performed by: Division of Pathology and Laboratory Medicine [address] [place] [address] [phone] * Albumin Level (10/03/2022 12:17 PM CDT) Albumin Lvl 4.2 3.5 - 5.2 gm/dL [facility] Blood 10/03/2022 12:1 7 PM CDT 10/03/2022 12:25 PM CDT Josiah Garay MD LAB BLOOD ORDERABLES Performing Organization Address [facility] de Phone Number [facility] Unless otherwise noted, all lab tests performed by: Division of Pathology and Laboratory Medicine [address] [place] [address] [phone] * Electrolyte Panel (10/03/2022 12:17 PM CDT) Sodium Lvl 137 136 - 145 mEq/L [facility] Potassium Lvl 3.8 3.5 - 5.1 mEq/L [facility] Chloride 103 98 - 107 mEq/L [facility] CO2 24 22 - 29 mEq/L [facility] Anion Gap 10 4 - 14 mEq/L [facility] Blood 10/03/2022 12:1 7 PM CDT 10/03/2022 12:25 PM CDT Josiah Garay MD LAB BLOOD ORDERABLES Performing Organization Address [facility] de Phone Number [facility] Unless otherwise noted, all lab tests performed by: Division of Pathology and Laboratory Medicine [address] [place] [address] [phone] after 08/12/2022 Advance Directives * Full Code (Latest Code Status on File) Date Activated Date Inactivated Comments 05/22/2021 4:44 PM 05/26/2021 7:54 PM * Full Code Date Activated Date Inactivated Comments 05/22/2021 4:44 PM 05/22/2021 4:44 PM * Full Code Date Activated Date Inactivated Comments 08/21/2020 11:52 PM 08/24/2020 5:55 PM * Full Code Date Activated Date Inactivated Comments 03/02/2020 8:29 PM 03/07/2020 11:09 PM * Full Code Date Activated Date Inactivated Comments 02/26/2020 9:33 PM 02/29/2020 8:36 PM 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 General Relationship Specialty Start Date End Date Pako Lopez MD [facility]: [address] [place] [address] [id number] PCP - External Referring Urology 10/11/19 Nick Delgado MD [address] [place] [address] [phone] PCP - General Genitourinary Oncology 01/25/20 Marek Saini MD [address] [place] [address] [phone] Consulting Physician Radiation Oncology 02/14/20 Cristian Willams MD [address] [place] [address] [id number] Consulting Physician Supportive Care 10/07/20 Navin Lal MD [address] [place] [address] [phone] Consulting Physician Gastroenterology, Hepatology and Nutrition 10/31/20
--- NOTE | 2023-08-12 13:28 | RAD REPORT ---
EXAM DESCRIPTION: RADChest Single View08/12/2023 12:45 pm CLINICAL HISTORY: Pedal edema COMPARISON: Chest Single View dated 10/04/2022; Chest Single View dated 07/19/2022; Chest Single View d ated 02/01/2022; Chest Single View dated 01/31/2022 TECHNIQUE: Portable AP view of the chest. FINDINGS: The lungs are clear apart from mild interstitial prominence in the lower lungs. No pneumo thorax or effusion. The cardiomediastinal contours are unremarkable. IMPRESSION: Mild interstitial prominence in the lower lungs, may reflect mild edema or atypical pneu monitis.
[2023-08-12 13:50] LABS: Absolute Eosinophils 0.1 K/uL (0-0.5); Absolute Lymphocytes (CBC) 0.5 K/uL (0.7-4.9); Absolute Monocytes 0.6 K/uL (0.1-1.3); Absolute Neutrophil 3.1 K/uL (1.8-8.0); Basophils % 0.8 % (0-1.3); Eosinophils % 1.9 % (0-4.4); Hematocrit 37.6 % (39.6-49.0); Hemoglobin 12.2 g/dL (13.6-17.9); Lymphocytes % 10.8 % (15.3-44.8); MCH 29.5 pg (27.0-35.0); MCHC 32.4 g/dL (32.0-36.0); MPV 8.6 fL (7.6-11.3); Monocytes % 13.6 % (3.3-12.3); Neutrophils % 72.9 % (41.7-73.7); Platelets 204 thou/uL (152-406); RBC Red Blood Cell Count 4.13 M/uL (4.33-5.43); Red Cell Distribution Width 16.1 % (12.1-15.2)
[2023-08-12 14:10] LABS: Anion Gap 6.2 mEq/L (5.0-15.0); Potassium 4.2 mEq/L (3.5-5.1); Troponin High Sensitivity 10.5 pg/mL (<58.9)
--- NOTE | 2023-08-12 14:14 | ER ---
Nurse's Notes [facility] Name: Jesse Serna Age: 82 yrs Sex: Male : 1940 Arrival Date: 08/12/2023 Time: 11:49 Bed 3 Private MD: Diagnosis: Pedal edema Presentation: 08/11 11:58 Chief complaint: Patient's son or daughter states: bilateral feet/ankle swelling x2 as6 weeks. family reports pt has never had this. Coronavirus screen: At this time, the client does not indicate any symptoms associated with coronavirus-19. Ebola Screen: No symptoms or risks identified at this time. Initial Sepsis Screen: Does the patient meet any 2 criteria? No. Patient's initial sepsis screen is negative. Does the patient have a suspected source of infection? No. Patient's initial sepsis screen is negative. Risk Assessment: Do you want to hurt yourself or someone else? Patient reports no desire to harm self or others. Onset of symptoms was July 29, 2023. 11:58 Acuity: KT 3 as6 11:58 Method Of Arrival: Wheelchair as6 Triage Assessment: 11:59 General: Appears in no apparent distress. Behavior is calm, cooperative. Pain: Denies as6 pain. Cardiovascular: Edema is 2+ to left ankle, left foot, left toes, right ankle, right foot and right toes. Historical: - Allergies: 11:57 Aspirin; as6 - PMHx: 11:57 Arthritis; Atrial fibrillation; Hypertension; prostate cancer- in remission; as6 - PSHx: 11:57 Appendectomy; as6 - Immunization history:: Adult Immunizations up to date. - Infectious Disease History:: Denies. - Social history:: Smoking status: Patient/guardian denies using tobacco. Screenin:00 [facility] ED Fall Risk Assessment (Adult) History of falling in the last 3 months, nj1 including since admission No falls in past 3 months (0 pts) Confusion or Disorientation No (0 pts) Intoxicated or Sedated No (0 pts) Impaired Gait No (0 pts) Mobility Assist Device Used No (0 pt) Altered Elimination No (0 pt) Score/Fall Risk Level 0 - 2 = Low Risk Oriented to surroundings, Maintained a safe environment, Hourly rounding (assess needs \T\ fall precautionary measures) done. Abuse screen: Denies threats or abuse. Denies injuries from another. Nutritional screening: No deficits noted. Tuberculosis screening: No symptoms or risk factors identified. Assessment: 13:00 General: Appears in no apparent distress. comfortable, Behavior is calm, cooperative, nj1 appropriate for age. Pain: Denies pain. Neuro: Level of Consciousness is awake, alert, obeys commands, Oriented to person, place, time, situation. 13:00 Cardiovascular: Patient's skin is warm and dry. Respiratory: Airway is patent nj1 Respiratory effort is even, unlabored. Musculoskeletal: Swelling present in right foot, left foot, right ankle and left leg and left ankle. 14:00 Reassessment: Patient appears in no apparent distress at this time. Patient and/or nj1 family updated on plan of care and expected duration. Pain level reassessed. Patient is alert, oriented x 3, equal unlabored respirations, skin warm/dry/pink. 14:50 Reassessment: Patient appears in no apparent distress at this time. Patient is alert, nj1 oriented x 3, equal unlabored respirations, skin warm/dry/pink. Vital Signs: 11:58 BP 147 / 54; Pulse 49; Resp 18 S; Temp 98.1(TE); Pulse Ox 96% on R/A; Weight 68.04 kg as6 (R); Height 5 ft. 4 in. (R); 13:59 BP 152 / 61; Pulse 47; Resp 18; Pulse Ox 97% ; nj1 14:50 BP 165 / 67; Pulse 48; Resp 14; Pulse Ox 98% on R/A; nj1 14:54 BP 165 / 67; Pulse 51; Resp 18; Pulse Ox 97% ; Pain 0/10; iw 11:58 Body Mass Index 25.75 (68.04 kg, 162.56 cm) as6 14:54 Pain Scale: Adult iw ED Course: 11:51 Patient arrived in ED. rg4 11:59 Triage completed. as6 11:59 Arm band placed on. as6 12:00 Matthew Escobar DO is Attending Physician. ms3 12:03 Libertad Vieira, RN is Primary Nurse. nj1 12:47 XRAY Chest (1 view) In Process Unspecified. EDMS 13:00 Patient has correct armband on for positive identification. Bed in low position. Call nj1 light in reach. Adult w/ patient. Provided Education on: call light, fall precautions. 13:00 Client placed on continuous cardiac and pulse oximetry monitoring. NIBP monitoring nj1 applied. 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 13:49 Inserted saline lock: 20 gauge in left antecubital area, using aseptic technique. Blood jr12 collected. 14:17 Tu Castillo DO is Referral Physician. ms3 14:54 No provider procedures requiring assistance completed. IV discontinued, intact, iw bleeding controlled, No redness/swelling at site. Pressure dressing applied. Administered Medications: 14:39 Drug: Furosemide PO 40 mg PO once Route: PO; nj1 Medication: 14:55 VIS not applicable for this client. iw Outcome: 14:13 Discharge ordered by MD. ms3 14:55 Discharged to home via wheelchair, with family, iw 14:55 Condition: good 14:55 Discharge instructions given to patient, family, Instructed on discharge instructions, follow up and referral plans. medication usage, Demonstrated understanding of instructions, follow-up care, medications, Prescriptions given X 1, 14:55 Patient left the ED. iw Signatures: Dispatcher [employer] EDSanjuanita Pierson, RN RN Veronica Langley rg4 Matthew Escobar DO DO ms3 Joel Cole, RN ARA as6 Libertad Vieira RN RN nj1 Lindsay Noriega jr12
--- NOTE | 2023-08-12 14:14 | EDPHYS ---
Physician Documentation [facility] Name: Jesse Serna Age: 82 yrs Sex: Male : 1940 Arrival Date: 08/12/2023 Time: 11:49 Bed 3 Private MD: ED Physician Matthew Escobar HPI: 08/11 13:06 This 82 yrs old Male presents to ER via Wheelchair with complaints of Feet ms3 Swelling. 13:06 82-year-old male with past medical history of arthritis, atrial fibrillation, ms3 hypertension, prostate cancer presents to the emergency department for 2 weeks of bilateral feet swelling. Patient denies shortness of breath, chest pain. Patient states his foot pain is rated 6/10. Historical: - Allergies: 11:57 Aspirin; as6 - PMHx: 11:57 Arthritis; Atrial fibrillation; Hypertension; prostate cancer- in remission; as6 - PSHx: 11:57 Appendectomy; as6 - Immunization history:: Adult Immunizations up to date. - Infectious Disease History:: Denies. - Social history:: Smoking status: Patient/guardian denies using tobacco. ROS: 13:06 Constitutional: Negative for fever, and chills. Neck: Negative for injury, pain, and ms3 swelling, Cardiovascular: Negative for chest pain, and palpitations. Respiratory: Negative for shortness of breath, cough, wheezing, and pleuritic chest pain, Abdomen/GI: Negative for abdominal pain, nausea, vomiting, diarrhea, and constipation, 13:06 MS/extremity: Positive for pain, of the Bilateral feet, Exam: 13:06 Constitutional: This is a well developed, well nourished patient who is awake, alert, ms3 and in no acute distress. Head/Face: Normocephalic, atraumatic. Neck: Trachea midline, no cervical lymphadenopathy. Supple, full range of motion without nuchal rigidity, or vertebral point tenderness. No Meningismus. Chest/axilla: Normal chest wall appearance and motion. Nontender with no deformity. Cardiovascular: Regular rate and rhythm with a normal S1 and S2. No gallops, murmurs, or rubs. Normal PMI, no JVD. No pulse deficits. Respiratory: Lungs have equal breath sounds bilaterally, clear to auscultation and percussion. No rales, rhonchi or wheezes noted. No increased work of breathing, no retractions or nasal flaring. Abdomen/GI: Soft, non-tender, with normal bowel sounds. No distension or tympany. No guarding or rebound. No evidence of tenderness throughout. Skin: Warm, dry with normal turgor. Normal color with no rashes, no lesions, and no evidence of cellulitis. 13:06 Musculoskeletal/extremity: Extremities: noted in the right foot and left foot: swelling, 13:59 ECG was reviewed by the Attending Physician. ms3 Vital Signs: 11:58 BP 147 / 54; Pulse 49; Resp 18 S; Temp 98.1(TE); Pulse Ox 96% on R/A; Weight 68.04 kg as6 (R); Height 5 ft. 4 in. (R); 13:59 BP 152 / 61; Pulse 47; Resp 18; Pulse Ox 97% ; nj1 14:50 BP 165 / 67; Pulse 48; Resp 14; Pulse Ox 98% on R/A; nj1 14:54 BP 165 / 67; Pulse 51; Resp 18; Pulse Ox 97% ; Pain 0/10; iw 11:58 Body Mass Index 25.75 (68.04 kg, 162.56 cm) as6 14:54 Pain Scale: Adult iw MDM: 13:06 Patient medically screened. ms3 13:06 Differential diagnosis: Venous insuffiency vs CHF. ms3 14:18 Data reviewed: vital signs, nurses notes, lab test result(s), EKG, radiologic studies, ms3 and as a result, I will discharge patient. I considered the following discharge prescriptions or medication management in the emergency department Medications were administered in the Emergency Department. See MAR. Independent interpretation of the following test(s) in the Emergency Department EKG: See my EKG interpretation above. Historians other than the Patient: Daughter/Son: Daughter. Special discussion: I discussed with the patient/guardian in detail that at this point there is no indication for admission to the hospital. It is understood, however, that if the symptoms persist or worsen the patient needs to return immediately for re-evaluation. ED course: Discussed labs, chest x-ray, EKG findings with patient and his daughter. All questions were answered. Return precautions discussed include worsening symptoms, or any other concerns. On reevaluation patient is alert, no apparent distress, nontoxic-appearing, speaking full sentences.. 08/11 12:15 Order name: Basic Metabolic Panel; Complete Time: 14:12 ms3 08/11 12:15 Order name: CBC with Diff; Complete Time: 14:12 ms3 08/11 12:15 Order name: Magnesium; Complete Time: 14:12 ms3 08/11 12:15 Order name: NT PRO-BNP; Complete Time: 14:12 ms3 08/11 12:15 Order name: Troponin HS; Complete Time: 14:12 ms3 08/11 12:15 Order name: XRAY Chest (1 view); Complete Time: 13:59 ms3 08/11 12:15 Order name: EKG; Complete Time: 12:16 ms3 08/11 12:15 Order name: Cardiac monitoring; Complete Time: 13:43 ms3 08/11 12:15 Order name: EKG - Nurse/Tech; Complete Time: 13:43 ms3 08/11 12:15 Order name: IV Saline Lock; Complete Time: 13:43 ms3 08/11 12:15 Order name: Labs collected and sent; Complete Time: 13:43 ms3 08/11 12:15 Order name: O2 Per Protocol; Complete Time: 13:43 ms3 08/11 12:15 Order name: O2 Sat Monitoring; Complete Time: 13:43 ms3 EC:59 Rate is 53 beats/min. Rhythm is regular. Left axis deviation noted. LA interval is ms3 normal. QRS interval is prolonged. Clinical impression: NSR w/ Non-specific ST/T Changes. Interpreted by me. Reviewed by me. Administered Medications: 14:39 Drug: Furosemide PO 40 mg PO once Route: PO; nj1 Disposition Summary: 08/12/23 14:13 Discharge Ordered Notes: Location: Home ms3 Condition: Stable ms3 Diagnosis - Pedal edema ms3 Followup: ms3 - With: Tu Castillo, DO - When: 2 - 3 days - Reason: Recheck today's complaints Discharge Instructions: - Discharge Summary Sheet ms3 - Edema ms3 Forms: - Medication Reconciliation Form ms3 - Antibiotic Education ms3 - Prescription Opioid Use ms3 - Patient Portal Instructions ms3 - Leadership Thank You Letter ms3 Prescriptions: - Lasix 20 mg Oral tablet - take 1 tablet ORAL route once daily; 15 tablet; Refills: 0, Product Selection ms3 Permitted Signatures: Dispatcher [employer] EDMS Matthew Escobar, DO ms3 Joel Cole, RN RN as6 Libertad Vieira, RN RN nj1
[2023-08-12] MEDS ORDERED: FUROSEMIDE 40 MG TABLET ONE (14:32)
[2023-08-12 16:05] VITALS: BP 165/67; TEMP 98.1; O2SAT 97
--- NOTE | 2023-08-13 13:55 | EKG ---
Test Date: 2023-08-12 Test Time: 13:25:22 Earth Science Teacher: JULIO MEASUREMENT RESULTS: Intervals: Rate: 53 [place]: 176 QRSD: 156 QT: 514 QTc: 482 [place]: P: 93 [place]: 176 QRS: -66 T: 70 INTERPRETIVE STATEMENTS: Sinus bradycardia Right bundle branch block Left anterior fascicular block Bifascicular block Abnormal ECG Compared to ECG 06/30/2023 10:10:20 No significant changes Electronically Signed On 08-13-23 13:53:34 CDT by Carlos Warner
== END 2023-08-12 14:55 | disposition home or self-care (01) ==
LOC: ER 11:49
DX: R60.9 Edema, unspecified (principal)
CPT/HCPCS: 36415; 71045; 80048; 83735; 83880; 84484; 85025; 93005; 99284

== ENCOUNTER 2023-11-20 23:04 | Emergency (ER) | payer SELFPAY ==
--- OUTSIDE RECORDS SUMMARY | 2023-11-20 23:06 | XMS REPORT | Clinical Summary ---
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 Active aspirin 81 mg chewable tabletIndications:[facility] [employer] Chew 1 tablet (81 mg) daily. 05/27/2021 [...] #1: Name: Latoya Serna ( Daughter ) [phone] Contact #2: Name: Phone Number: Contact #3: [...] Center - Gastroenterology, Hepatology & Nutrition [address] [facility] [address] [facility], [address] [place] [address] Ambrosio Tran PA-C after 11/20/2022 Immunizations Name Administration Dates Next Due Kendra SARS-CoV-2 Vaccination 05/31/2020 Surgical History Surgery Date Site/Laterality Comments LAPAROSCOPIC CHOLECYSTECOMY PROSTATE BIOPSY 09/14/2019 HERNIA REPAIR Bilateral SHOULDER SURGERY 03/14/2011 - 03/13/2012 Right OK COLONOSCOPY FLX DX W/COLLJ SPEC WHEN PFRMD [...] Sex Assigned at Male 05/22/2021 5:00 PM DIRECTOR PRODUCT 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 Gender Identity Male 05/22/2021 5:00 PM DIRECTOR PRODUCT MANAGEMENT Sexual Orientation Not on file Job Start Date Occupation Industry Not on file Not on file Not on file Obstetrics History Plan of Treatment Health Maintenance Due Date Last Done Comments Pneumococcal Vaccine: 65+ Years (1 of 1 - PCV) 007 COVID-19 Vaccine (2 - Kendra risk series) 06/28/2020 05/31/2020 Influenza Vaccine (#1) 2023 Advance Directives * Full Code (Latest Code [...] 9:33 PM 02/29/2020 8:36 PM Care Teams Cement Truck Driver Relationship Specialty Start Date End Date Pako Lopez MD RUST: [address] [place] [id number] [email or web address] PCP - External Referring Urology 10/11/19 Nick Delgado MD [address] [place] [id number] [email or web address] PCP - General Genitourinary Oncology 01/25/20 Marek Saini MD [address] [place] [phone] [email or web address] Consulting Physician Radiation Oncology 02/14/20 Cristian Willams MD [address] [place] [phone] [email or web address] [email or web address] Physician Supportive Care 10/07/20 Navin Lal MD [address] [place] [address] [phone] [email or web address] Consulting Physician Gastroenterology, Hepatology and Nutrition 10/31/20
[2023-11-21 00:17] LABS: Absolute Eosinophils 0.2 K/uL (0-0.5); Absolute Lymphocytes (CBC) 0.5 K/uL (0.7-4.9); Absolute Monocytes 0.7 K/uL (0.1-1.3); Absolute Neutrophil 3.8 K/uL (1.8-8.0); Basophils % 0.9 % (0-1.3); Eosinophils % 2.9 % (0-4.4); Hematocrit 30.6 % (39.6-49.0); Hemoglobin 10.1 g/dL (13.6-17.9); Lymphocytes % 10.4 % (15.3-44.8); MCH 29.9 pg (27.0-35.0); MCHC 33.1 g/dL (32.0-36.0); MCV 90.3 fL (80-100); MPV 8.3 fL (7.6-11.3); Monocytes % 14.1 % (3.3-12.3); Neutrophils % 71.7 % (41.7-73.7); Platelets 202 thou/uL (152-406); RBC Red Blood Cell Count 3.38 M/uL (4.33-5.43); Red Cell Distribution Width 14.9 % (12.1-15.2)
[2023-11-21 00:20] LABS: PTT, Activated Partial Thromb 35.2 SECONDS (24.3-36.9); Protime INR 1.17
[2023-11-21 00:30] LABS: Barbiturates NEGATIVE (NEGATIVE); Benzodiazepines NEGATIVE (NEGATIVE); Cocaine NEGATIVE (NEGATIVE); METHAMPHETAM NEGATIVE (NEGATIVE); Methadone NEGATIVE (NEGATIVE); Opiates NEGATIVE (NEGATIVE); Phencyclidine NEGATIVE (NEGATIVE); THC Cannibis NEGATIVE (NEGATIVE)
[2023-11-21 01:11] LABS: Anion Gap 9.9 mEq/L (5.0-15.0); Bilirubin Direct 0.1 mg/dL (0-0.2); Bilirubin Indirect, Calculated 0.3 mg/dL (0.2-0.8); Bilirubin Total 0.4 mg/dL (0.2-1.0); Potassium 3.9 mEq/L (3.5-5.1)
[2023-11-21 01:12] LABS: Albumin 2.5 g/dL (3.4-5.0); Albumin/Globulin Ratio 0.8 (1.1-1.8); Globulin 3.3 g/dL (2.3-3.5); Magnesium 1.8; Protein, Total 5.8 g/dL (6.4-8.2); Troponin High Sensitivity 9.8 (<58.9)
--- NOTE | 2023-11-21 05:23 | EDPHYS ---
Physician Documentation [facility] Name: Jesse Serna Age: 83 yrs Sex: Male : 1940 Arrival Date: 11/20/2023 Time: 23:04 Bed 14 Private MD: ED Physician Eliu Cuellar HPI: 11/19 23:22 This 83 yrs old Male presents to ER via Unassigned with complaints of sb4 Dizziness. 23:22 Patient states that this evening he started experiencing dizziness, headache, and sb4 generalized weakness. He denies any difficulty speaking or swallowing, he denies any unilateral weakness, numbness, or tingling. He has a history of atrial fibrillation, hypertension, and coronary artery disease in which he takes Eliquis. He denies any chest pain or shortness of breath at this time. Does endorse some abdominal pain but denies any nausea, vomiting, or diarrhea. Historical: - Home Meds: 23:10 Eliquis oral [Active]; rg5 - PMHx: 23:10 Arthritis; Atrial fibrillation; Hypertension; prostate cancer- in remission; rg5 - PSHx: 23:10 Appendectomy; rg5 - Immunization history:: Adult Immunizations up to date. - Infectious Disease History:: Denies. - Social history:: Smoking status: Patient denies any tobacco usage or history of. ROS: 23:22 Constitutional: Negative for fever, chills, and weight loss, sb4 23:22 Abdomen/GI: Positive for abdominal pain, 23:22 Neuro: Positive for dizziness, headache, weakness, 23:22 All other systems are negative, Exam: 23:22 Head/Face: Normocephalic, atraumatic. Eyes: Extra-ocular motions intact. Periorbital sb4 areas with no swelling, redness, or edema. ENT: Mucous membranes moist. Cardiovascular: Regular rate and rhythm with a normal S1 and S2. Respiratory: Lungs have equal breath sounds bilaterally, clear to auscultation and percussion. No rales, rhonchi or wheezes noted. No increased work of breathing, no retractions or nasal flaring. Abdomen/GI: Soft, non-tender, no distension. Skin: Warm, dry with normal turgor. Normal color with no rashes, no lesions, and no evidence of cellulitis. MS/ Extremity: Pulses equal, no cyanosis. Neurovascular intact. Full, normal range of motion. Neuro: Awake and alert, GCS 15, oriented to person, place, time, and situation. Motor strength 5/5 in all extremities. Sensory grossly intact. 23:22 Constitutional: The patient appears in no acute distress, alert, awake, unkempt, Vital Signs: 23:10 BP 168 / 78; Pulse 55; Resp 16; Temp 97.8(O); Pulse Ox 94% on R/A; Weight 63.5 kg; rg5 Height 5 ft. 6 in. ; Pain 8/10; 23:10 BP 168 / 78; Pulse 55; Resp 18; Temp 97.8; Pulse Ox 94% on R/A; Pain 8/10; [facility] 11/20 00:15 BP 153 / 76; Pulse 55; Resp 17; Pulse Ox 97% on R/A; Pain 8/10; rg5 00:30 BP 176 / 62; Pulse 50; Resp 17 S; Pulse Ox 95% on R/A; Pain 7/10; rg5 00:45 BP 169 / 84; Pulse 60; Resp 17; Pulse Ox 97% on R/A; Pain 7/10; 5 01:00 BP 189 / 66; Pulse 64; Resp 17; Pulse Ox 97% on R/A; Pain 6/10; rg5 01:30 BP 171 / 86; Pulse 56; Resp 17; Pulse Ox 95% on R/A; Pain 4/10; 5 02:00 BP 169 / 78; Pulse 55; Resp 17; Pulse Ox 97% ; Pain 3/10; 5 03:00 BP 165 / 67; Pulse 53; Resp 17; Pulse Ox 97% on R/A; Pain 0/10; 5 04:00 BP 167 / 68; Pulse 55; Resp 17; Pulse Ox 96% on R/A; Pain 0/10; [facility] 05:04 BP 158 / 61; Pulse 58; Resp 17; Pulse Ox 94% on R/A; Pain 0/10; [facility] 06:09 BP 159 / 83; Pulse 56; Resp 17; Temp 98; Pulse Ox 97% on R/A; Pain 0/10; [facility] 11/19 23:10 Body Mass Index 22.60 (63.50 kg, 167.64 cm) [facility] 11/19 23:10 Pain Scale: Adult rg5 23:10 Pain Scale: Adult rg5 11/20 00:15 Pain Scale: Adult rg5 00:30 Pain Scale: Adult rg5 00:45 Pain Scale: Adult rg5 01:00 Pain Scale: Adult rg5 01:30 Pain Scale: Adult rg5 02:00 Pain Scale: Adult rg5 03:00 Pain Scale: Adult rg5 04:00 Pain Scale: Adult rg5 05:04 Pain Scale: Adult rg5 06:09 Pain Scale: Adult rg5 NIH Stroke Scale Scores: 11/19 23:22 NIHSS Score: 1 sb4 23:30 NIHSS Score: 0 rg5 [place] Coma Score: 11/20 00:00 Eye Response: spontaneous(4). Motor Response: obeys commands(6). Verbal Response: rg5 oriented(5). Total: 15. 00:30 Eye Response: spontaneous(4). Motor Response: obeys commands(6). Verbal Response: rg5 oriented(5). Total: 15. 01:30 Eye Response: spontaneous(4). Motor Response: obeys commands(6). Verbal Response: rg5 oriented(5). Total: 15. 03:00 Eye Response: spontaneous(4). Motor Response: obeys commands(6). Verbal Response: rg5 oriented(5). Total: 15. MDM: 11/19 23:09 Patient medically screened. sb4 11/20 02:38 Data reviewed: vital signs. ec2 02:39 ED course: Patient signed out to me, patient arrives today for evaluation of dizziness ec2 which is since resolved. Patient incidentally found to have possible mediastinal mass, pending CT scan of the chest, pending CT angio head and neck. Likely admit for dizziness, further neurology workup.. 03:08 ED course: CT angio head and neck showed no acute process.. 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 . 05:19 ED course: Giving CT findings, patient will require [facility].. 05:43 ED course: I discussed the case with Dr. Gresham, cardiothoracic surgery at [address] who agrees to consult on the patient. Will discuss with hospitalist for admission and transfer. . 06:03 ED course: I discussed case with Dr. Salcedo, hospitalist at [facility] ec2 who agrees accept the patient for transfer.. 06:08 ED course: I also discussed the case with family member who expressed understanding and [facility] meet the patient [facility].. 11/19 23:20 Order name: Basic Metabolic Panel; Complete Time: 01:13 [facility] 11/19 23:20 Order name: CBC with Diff; Complete Time: 00:31 4 11/19 23:20 Order name: Hepatic Function; Complete Time: : [facility] 11/19 23:20 Order name: High Sensitivity Troponin; Complete Time: : [facility] 11/19 23:20 Order name: Magnesium; Complete Time: 01: [facility] 11/19 23:20 Order name: Protime (+inr); Complete Time: 00:27 [facility] 11/19 23:20 Order name: Ptt, Activated; Complete Time: 00:27 [facility] 11/19 23:20 Order name: UDS; Complete Time: 00:31 [facility] 11/20 00:14 Order name: Glucose, Ancillary Testing; Complete Time: 00:15 [facility] 11/19 23:20 Order name: CT Neck Angio [facility] 11/19 23:20 Order name: CT Stroke Brain w/o Contrast [facility] 11/19 23:20 Order name: Stroke CXR 1 View [facility] 11/19 23:28 Order name: Head angio [facility] 11/20 02:05 Order name: Chest Wo Con CT [facility] 11/19 23:20 Order name: Accucheck; Complete Time: 00:11 [facility] 11/19 23:20 Order name: Cardiac monitoring; Complete Time: 00:11 [facility] 11/19 23:20 Order name: EKG - Nurse/Tech; Complete Time: 23:47 [facility] 11/19 23:20 Order name: IV Saline Lock; Complete Time: 00:11 [facility] 11/19 23:20 Order name: Labs collected and sent; Complete Time: 00:11 [facility] 11/19 23:20 Order name: NPO; Complete Time: 00:11 [facility] 11/19 23:20 Order name: O2 Per Protocol; Complete Time: 23:47 sb4 11/19 23:20 Order name: O2 Sat Monitoring; Complete Time: 23:47 sb4 11/19 23:20 Order name: Stroke Swallow Screen; Complete Time: 00:11 sb4 EC/08 23:28 Rate is 54 beats/min. Rhythm is regular, Sinus bradycardia with Right bundle branch sb4 block. Left axis deviation noted. MA interval is normal at 166 msec. QRS interval is normal at 168 msec. QT interval is prolonged at 520 msec. No Q waves. T waves are Normal. No ST changes noted. Clinical impression: NSR w/ Non-specific ST/T Changes. Interpreted by me. Reviewed by me. Administered Medications: 11/20 06:16 Drug: Aspirin PO Chewable Tablet 324 mg PO once; 81 mg tablets x 4 Route: PO; rg5 06:45 Follow up: Response: No adverse reaction rg5 Point of Care Testing: Blood Glucose: 00:14 Blood Glucose: 95 mg/dL; rg5 Ranges: Critical Glucose Levels:Adult <50 mg/dl or >400 mg/dl <40 mg/dl or >180 mg/dl Disposition: 05:20 I agree with the assessment and plan of care. I reviewed the patient's care provided by 2 Advanced Practice Provider \T\ agree w/ the diagnosis \T\ care plan. I personally saw the pt \T\ performed a substantive portion of the visit, incldng all aspects of the (History/Exam/Medical Decision Making). Disposition Summary: 11/21/23 05:22 Transfer Ordered Notes: Reason: Higher level of care ec2 Condition: Stable ec2 Problem: an ongoing problem ec2 Symptoms: are unchanged ec2 Transfer Location: [facility](11/21/23 06:09) ec2 Accepting Physician: Dr. Salcedo(11/21/23 06:59) rg5 Diagnosis - Paratracheal Mass ec2 - Lung Mass ec2 - Tracheal Compression ec2 - Dizziness and giddiness ec2 Forms: - Medication Reconciliation Form ec2 - SBAR form ec2 NIH Stroke Scale - NIH Stroke Score Date: 11/20/2023 Time: 23:22 Total Score = 1 10. Dysarthria (speech clarity - read or repeat words) - 1(Mild to Moderate) 11. Extinction and Inattention (visual/tactile/auditory/spatial/personal) - 0(No abnormality) 1a. Level of Consciousness (LOC) - 0(Alert) 1b. Level of Consciousness (LOC) (Month \T\ Age) - 0(Both) 1c. LOC Commands (Open \T\ Closes Eyes/Medical Physiologist) - 0(Both) 2. Best Gaze (Lateral Gaze Paresis) - 0(Normal) 3. Visual Field Loss - 0(No visual loss) 4. Facial Palsy - 0(Normal) 5a. Left Arm: Motor (10-second hold) - 0(No drift) 5b. Right Arm: Motor (10-second hold) - 0(No drift) 6a. Left Leg: Motor (5-second hold - always test supine) - 0(No drift) 6b. Right Leg: Motor (5-second hold - always test supine) - 0(No drift) 7. Limb Ataxia (finger/nose \T\ heel/palmer - test with eyes open) - 0(Absent) 8. Sensory Loss (pinprick arms/legs/face) - 0(Normal) 9. Best Language: Aphasia (description/naming/reading) - 0(No aphasia) Initials: sb4 NIH Stroke Scale - NIH Stroke Score Date: 11/20/2023 Time: 23:30 Total Score = 0 10. Dysarthria (speech clarity - read or repeat words) - 0(Normal) 11. Extinction and Inattention (visual/tactile/auditory/spatial/personal) - 0(No abnormality) 1a. Level of Consciousness (LOC) - 0(Alert) 1b. Level of Consciousness (LOC) (Month \T\ Age) - 0(Both) 1c. LOC Commands (Open \T\ Closes Eyes/Medical Physiologist) - 0(Both) 2. Best Gaze (Lateral Gaze Paresis) - 0(Normal) 3. Visual Field Loss - 0(No visual loss) 4. Facial Palsy - 0(Normal) 5a. Left Arm: Motor (10-second hold) - 0(No drift) 5b. Right Arm: Motor (10-second hold) - 0(No drift) 6a. Left Leg: Motor (5-second hold - always test supine) - 0(No drift) 6b. Right Leg: Motor (5-second hold - always test supine) - 0(No drift) 7. Limb Ataxia (finger/nose \T\ heel/palmer - test with eyes open) - 0(Absent) 8. Sensory Loss (pinprick arms/legs/face) - 0(Normal) 9. Best Language: Aphasia (description/naming/reading) - 0(No aphasia) Initials: rg5 Signatures: Dispatcher [employer] EDNatacha Alford PA-C PA-C sb4 Eliu Cuellar MD MD ec2 Hugo Urrutia RN RN rg5 Corrections: (The following items were deleted from the chart) 11/19 23:20 23:20 Neck Angio+CT.RAD.BRZ ordered. EDMS EDMS 23:20 23:20 CT-STROKE BRAIN W/O CONTRAST+CT.RAD.BRZ ordered. EDMS EDMS 23:20 23:20 Chest Single View+RAD.RAD.BRZ ordered. EDMS EDMS 11/20 05:22 05:22 transferring doc ec2 ec2 06:03 05:22 transferring doc ec2 ec2 06:09 05:22 Other Acute Care Facility ec2 ec2 06:09 06:03 Dr. Salcedo ec2 ec2 06:59 06:09 Dr. Salcedo 2 rg5
--- NOTE | 2023-11-21 05:23 | ER ---
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 23:10 Coronavirus screen: Client denies travel out of the [place] in the last 14 days. Ebola rg5 Screen: Patient negative for fever greater than or equal to 101.5 degrees Fahrenheit, and additional compatible Ebola Virus Disease symptoms. Initial Sepsis Screen: Does the patient meet any 2 criteria? No. Patient's initial sepsis screen is negative. Does the patient have a suspected source of infection? No. Patient's initial sepsis screen is negative. Risk Assessment: Do you want to hurt yourself or someone else? Patient reports no desire to harm self or others. Onset of symptoms was November 20, 2023 at 22:00. 23:10 Method Of Arrival: EMS: [facility] rg5 23:10 Acuity: KT 2 rg5 11/20 00:00 No acute neurological deficit is noted. The patients blood glucose was checked before rg5 arriving to the hospital and was found to be normal. Triage Assessment: 11/19 23:10 General: Appears in no apparent distress. Behavior is calm, cooperative, appropriate rg5 for age. Pain: Complains of pain in head Pain currently is 8 out of 10 on a pain scale. Quality of pain is described as aching. EENT: No deficits noted. Neuro: Level of Consciousness is awake, alert, obeys commands, Oriented to person, place, time, Component Overhaul Operator are equal bilaterally Moves all extremities. Speech is normal, Facial symmetry appears normal, Pupils are PERRLA, Reports dizziness. Cardiovascular: Denies chest pain, Heart tones S1 S2 Capillary refill < 3 seconds Patient's skin is warm and dry. Rhythm is sinus bradycardia. Respiratory: Airway is patent Trachea midline Respiratory effort is even, unlabored, Respiratory pattern is regular, symmetrical. GI: Abdomen is round non-distended. : No signs and/or symptoms were reported regarding the genitourinary system. Derm: Skin is intact, Skin is dry, Skin is normal, Skin temperature is warm. Musculoskeletal: Range of motion: intact in all extremities, Swelling present in right leg and left leg. 11/20 00:00 The onset of the patients symptoms was November 20, 2023 at 22:00. rg5 Stroke Activation: Physician: ED Attending; Name: Natacha JOHNSON; Notified At: 23:08; Arrived At: 23:08 Physician: Mid-Level Provider; Name: ; Notified At: 23:08; Arrived At: Physician: [not used]; Name: ; Notified At: ; Arrived At: Physician: [not used]; Name: ; Notified At: ; Arrived At: Physician: [not used]; Name: ; Notified At: ; Arrived At: Historical: - Home Meds: 11/19 23:10 Eliquis oral [Active]; rg5 - PMHx: 23:10 Arthritis; Atrial fibrillation; Hypertension; prostate cancer- in remission; rg5 - PSHx: 23:10 Appendectomy; rg5 - Immunization history:: Adult Immunizations up to date. - Infectious Disease History:: Denies. - Social history:: Smoking status: Patient denies any tobacco usage or history of. Screenin:[address] [facility] ED Fall Risk Assessment (Adult) History of falling in the last 3 months, rg5 including since admission No falls in past 3 months (0 pts) Confusion or Disorientation No (0 pts) Intoxicated or Sedated No (0 pts) Impaired Gait No (0 pts) Mobility Assist Device Used No (0 pt) Altered Elimination No (0 pt) Score/Fall Risk Level 0 - 2 = Low Risk Oriented to surroundings, Maintained a safe environment, Educated pt \T\ family on fall prevention, incl call for assistance when getting out of bed, Hourly rounding (assess needs \T\ fall precautionary measures) done. 23:10 Abuse screen: Denies threats or abuse. Nutritional screening: No deficits noted. rg5 Tuberculosis screening: No symptoms or risk factors identified. Assessment: 23:10 Reassessment: see triage assessment. rg5 23:30 TNKase (Tenecteplase) Screening: Contraindications: Is the patient on Aspirin, Heparin, rg5 or Warfarin: Yes. 11/20 00:00 VAN Scoring: Arm Drift: Patients demonstrates NO arm weakness. Patient is VAN Negative. rg5 Visual Disturbance: No visual disturbance noted. Aphasia: No aphasia noted. Neglect: No neglect noted. [place] Swallow Protocol Exclusion Criteria: Exclusion Criteria Result: Proceed Brief Cognitive Screen What is your name? Normal, Where are you right now? Normal, What year is it? Normal. Oral Mechanism Examination Oral Mechanism Result: Normal. 3 oz Water Swallow Challenge: Pt able to drink all water without stopping, coughing, choking or throat clearing: Result: PASS MD Notified: Natacha Cardoza PA-C. 01:00 Reassessment: Patient and/or family updated on plan of care and expected duration. Pain rg5 level reassessed. Patient is alert, oriented x 3, equal unlabored respirations, skin warm/dry/pink. Patient states feeling better. Patient states symptoms have improved. 02:00 Reassessment: Patient and/or family updated on plan of care and expected duration. Pain rg5 level reassessed. Patient is alert, oriented x 3, equal unlabored respirations, skin warm/dry/pink. Patient states symptoms have improved. 03:00 Reassessment: No changes from previously documented assessment. Patient and/or family rg5 updated on plan of care and expected duration. Pain level reassessed. Patient is alert, oriented x 3, equal unlabored respirations, skin warm/dry/pink. Patient states symptoms have improved. 03:00 Neuro: Level of Consciousness is awake, alert, obeys commands, Oriented to person, rg5 place, time, situation. 04:00 Reassessment: Patient and/or family updated on plan of care and expected duration. Pain rg5 level reassessed. Patient is alert, oriented x 3, equal unlabored respirations, skin warm/dry/pink. Patient states feeling better. 05:05 Reassessment: Patient and/or family updated on plan of care and expected duration. Pain rg5 level reassessed. Patient is alert, oriented x 3, equal unlabored respirations, skin warm/dry/pink. Patient states symptoms have improved. 06:10 Reassessment: Patient and/or family updated on plan of care and expected duration. Pain rg5 level reassessed. Patient is alert, oriented x 3, equal unlabored respirations, skin warm/dry/pink. Patient states feeling better. Patient states symptoms have improved. Vital Signs: 11/19 23:10 BP 168 / 78; Pulse 55; Resp 16; Temp 97.8(O); Pulse Ox 94% on R/A; Weight 63.5 kg; rg5 Height 5 ft. 6 in. ; Pain 8/10; 23:10 BP 168 / 78; Pulse 55; Resp 18; Temp 97.8; Pulse Ox 94% on R/A; Pain 8/10; [facility] 11/20 00:15 BP 153 / 76; Pulse 55; Resp 17; Pulse Ox 97% on R/A; Pain 8/10; 5 00:30 BP 176 / 62; Pulse 50; Resp 17 S; Pulse Ox 95% on R/A; Pain 7/10; [facility] 00:45 BP 169 / 84; Pulse 60; Resp 17; Pulse Ox 97% on R/A; Pain 7/10; [facility] 01:00 BP 189 / 66; Pulse 64; Resp 17; Pulse Ox 97% on R/A; Pain 6/10; [facility] 01:30 BP 171 / 86; Pulse 56; Resp 17; Pulse Ox 95% on R/A; Pain 4/10; 5 02:00 BP 169 / 78; Pulse 55; Resp 17; Pulse Ox 97% ; Pain 3/10; 5 03:00 BP 165 / 67; Pulse 53; Resp 17; Pulse Ox 97% on R/A; Pain 0/10; [facility] 04:00 BP 167 / 68; Pulse 55; Resp 17; Pulse Ox 96% on R/A; Pain 0/10; [facility] 05:04 BP 158 / 61; Pulse 58; Resp 17; Pulse Ox 94% on R/A; Pain 0/10; [facility] 06:09 BP 159 / 83; Pulse 56; Resp 17; Temp 98; Pulse Ox 97% on R/A; Pain 0/10; [facility] 11/19 23:10 Body Mass Index 22.60 (63.50 kg, 167.64 cm) [facility] 11/19 23:10 Pain Scale: Adult [facility] 23:10 Pain Scale: Adult [facility] 11/20 00:15 Pain Scale: Adult rg5 00:30 Pain Scale: Adult rg5 00:45 Pain Scale: Adult 5 01:00 Pain Scale: Adult rg5 01:30 Pain Scale: Adult rg5 02:00 Pain Scale: Adult rg5 03:00 Pain Scale: Adult rg5 04:00 Pain Scale: Adult rg5 05:04 Pain Scale: Adult rg5 06:09 Pain Scale: Adult rg5 Leeanne Coma Score: 00:00 Eye Response: spontaneous(4). Motor Response: obeys commands(6). Verbal Response: rg5 oriented(5). Total: 15. 00:30 Eye Response: spontaneous(4). Motor Response: obeys commands(6). Verbal Response: rg5 oriented(5). Total: 15. 01:30 Eye Response: spontaneous(4). Motor Response: obeys commands(6). Verbal Response: rg5 oriented(5). Total: 15. 03:00 Eye Response: spontaneous(4). Motor Response: obeys commands(6). Verbal Response: rg5 oriented(5). Total: 15. NIH Stroke Scale Scores: 11/19 23:22 NIHSS Score: 1 sb4 23:30 NIHSS Score: 0 rg5 ED Course: 23:08 Patient arrived in ED. jj6 23:09 Natacha Cardoza PA-C is PHCP. sb4 23:09 Eliu Cuellar MD is Attending Physician. sb4 23:10 Arm band placed on right wrist. EKG completed in triage. Results shown to MD. rg5 23:10 Patient has correct armband on for positive identification. Bed in low position. Call rg5 light in reach. Side rails up X 1. Warm blanket given. 23:10 No provider procedures requiring assistance completed. Inserted saline lock: 22 gauge rg5 in right forearm, using aseptic technique. Blood collected. Flushed with 10 mL NS. 23:46 Hugo Urrutia, RN is Primary Nurse. rg5 11/20 00:02 CT Stroke Brain w/o Contrast In Process Unspecified. EDMS 00:19 Triage completed. rg5 00:32 Awaiting lab results, Awaiting radiology results. Awaiting CT Scan. rg5 00:44 CT Neck Angio In Process Unspecified. EDMS 00:45 Head angio In Process Unspecified. EDMS 00:48 Stroke CXR 1 View In Process Unspecified. EDMS 03:[address] In Process Unspecified. EDMS 04:00 Resting quietly. Appears to be sleeping. rg5 05:03 Patient admitted, IV remains in place. intact, No redness/swelling at site. rg5 06:10 transfer approval from receiving facility. rg5 06:35 [id number] called [facility] for transfer talked to Izzy. 0610 Dr. Nito Marcum accepted pt IZZY VILLA APPROVAL CALLED [facility] TALKED TO AMEE. 06:58 Provided Education on: post er care. rg5 Administered Medications: 06:16 Drug: Aspirin PO Chewable Tablet 324 mg PO once; 81 mg tablets x 4 Route: PO; rg5 06:45 Follow up: Response: No adverse reaction rg5 Medication: 11/19 23:10 VIS not applicable for this client. rg5 Point of Care Testing: Blood Glucose: 11/20 00:14 Blood Glucose: 95 mg/dL; rg5 Ranges: Outcome: 05:22 ER care complete, transfer ordered by . ec2 06:57 Transferred by ground EMS to [facility], [facility], rg5 06:57 Condition: stable 06:57 Discharge instructions given to EMS, 06:59 Patient left the ED. rg5 NIH Stroke Scale - NIH Stroke Score Date: 11/20/2023 Time: 23:22 Total Score = 1 10. Dysarthria (speech clarity - read or repeat words) - 1(Mild to Moderate) 11. Extinction and Inattention (visual/tactile/auditory/spatial/personal) - 0(No abnormality) 1a. Level of Consciousness (LOC) - 0(Alert) 1b. Level of Consciousness (LOC) (Month \T\ Age) - 0(Both) 1c. LOC Commands (Open \T\ Closes Eyes/Soaping Department Supervisor) - 0(Both) 2. Best Gaze (Lateral Gaze Paresis) - 0(Normal) 3. Visual Field Loss - 0(No visual loss) 4. Facial Palsy - 0(Normal) 5a. Left Arm: Motor (10-second hold) - 0(No drift) 5b. Right Arm: Motor (10-second hold) - 0(No drift) 6a. Left Leg: Motor (5-second hold - always test supine) - 0(No drift) 6b. Right Leg: Motor (5-second hold - always test supine) - 0(No drift) 7. Limb Ataxia (finger/nose \T\ heel/palmer - test with eyes open) - 0(Absent) 8. Sensory Loss (pinprick arms/legs/face) - 0(Normal) 9. Best Language: Aphasia (description/naming/reading) - 0(No aphasia) Initials: sb4 NIH Stroke Scale - NIH Stroke Score Date: 11/20/2023 Time: 23:30 Total Score = 0 10. Dysarthria (speech clarity - read or repeat words) - 0(Normal) 11. Extinction and Inattention (visual/tactile/auditory/spatial/personal) - 0(No abnormality) 1a. Level of Consciousness (LOC) - 0(Alert) 1b. Level of Consciousness (LOC) (Month \T\ Age) - 0(Both) 1c. LOC Commands (Open \T\ Closes Eyes/Soaping Department Supervisor) - 0(Both) 2. Best Gaze (Lateral Gaze Paresis) - 0(Normal) 3. Visual Field Loss - 0(No visual loss) 4. Facial Palsy - 0(Normal) 5a. Left Arm: Motor (10-second hold) - 0(No drift) 5b. Right Arm: Motor (10-second hold) - 0(No drift) 6a. Left Leg: Motor (5-second hold - always test supine) - 0(No drift) 6b. Right Leg: Motor (5-second hold - always test supine) - 0(No drift) 7. Limb Ataxia (finger/nose \T\ heel/palmer - test with eyes open) - 0(Absent) 8. Sensory Loss (pinprick arms/legs/face) - 0(Normal) 9. Best Language: Aphasia (description/naming/reading) - 0(No aphasia) Initials: rg5 Signatures: Dispatcher [employer] EDMadison Sanon Jennifer [id number] Natacha Cardoza PAMahsa PAMahsa sb4 Eliu Cuellar MD MD ec2 Hugo Urrutia RN RN rg5 Corrections: (The following items were deleted from the chart) 00:27 11/19 23:10 BP 168 / 78; Pulse 72bpm; Resp 16bpm; Pulse Ox 94% RA; Temp 97.8F rg5 Oral; 63.5 kg; Height 5 ft. 6 in.; BMI: 22.6; Pain 8/10, Adult; rg5
[2023-11-21] MEDS ORDERED: ASPIRIN 81 MG CHEWABLE TABLET ONE (06:13)
[2023-11-21 07:19] VITALS: BP 159/83; TEMP 98; O2SAT 97
--- NOTE | 2023-11-21 16:59 | EKG ---
Test Date: 2023-11-20 Test Time: 23:23:06 Panman: ER MEASUREMENT RESULTS: Intervals: Rate: 54 HI: 166 QRSD: 168 QT: 520 QTc: 493 Brandon: P: HI: 166 QRS: -56 T: 64 INTERPRETIVE STATEMENTS: Sinus bradycardia Left axis deviation Right bundle branch block Abnormal ECG Compared to ECG 08/12/2023 13:25:22 Left-axis deviation now present Left anterior fascicular block no longer present Bifascicular block no longer present Electronically Signed On 11-21-23 16:58:17 CDT by Carlos Warner
--- NOTE | 2023-11-21 19:21 | RAD REPORT ---
EXAM DESCRIPTION: ADDENDUM #1 Dr. Cuellar confirms receipt of report at at 12:11 AM Electronically signed by: John Carcamo MD 11/21/2023 12:34 AM [facility] End of Addendum Two PROCEDURE: Ct Stroke Brain Wo Cont CLINICAL HISTORY: STROKE ALERT TECHNIQUE: Contiguous axial CT images obtained through the brain without IV contrast. Coronal and sa gittal reformatted images were provided. This exam was performed according to our departmental dose-optimization program, which includes autom ated exposure control, adjustment of the mA and/or kV according to patient size and/or use of iterati ve reconstruction technique. COMPARISON: January 2022 FINDINGS: Brain: Mild age related loss of brain volume.. No focal mass effect. Wetzel-white matter dif ferentiation is within normal limits. No hemorrhage. Ventricles: No ventriculomegaly or midline shift. Extra-axial spaces: No extra-axial collection or hemorrhage. Paranasal sinuses and mastoid air cells: Well-aerated Bones: Unremarkable Soft tissues: Unremarkable IMPRESSION: No acute intracranial or extra-axial abnormality. Mild age related loss of brain volume. Electronically signed by: John Carcamo MD 11/21/2023 12:07 AM [facility] Due to temporary technical issues with the PACS/Fluency reporting system, reports are being signed by the in house radiologists without review as a courtesy to insure prompt reporting. The interpreting radiologist is fully responsible for the content of the report.
--- NOTE | 2023-11-21 19:22 | RAD REPORT ---
EXAM DESCRIPTION: CT Angiography Neck With Intravenous Contrast CLINICAL HISTORY: The patient is 83 years old and is Male; headache, weakness, slurred speech TECHNIQUE: Routine carotid CT angiography protocol was performed with intravenous contrast. NASCET criteria using the distal ICAs for comparison were used for evaluation of stenoses. Sagittal and c oronal reformatted images were created and reviewed. This CT exam was performed using one or more o f the following dose reduction techniques: automated exposure control, adjustment of the mA and/or kV according to patient size, and/or use of iterative reconstruction technique. MIP reconstructed i mages were created and reviewed. COMPARISON: None. FINDINGS: VASCULATURE: Right common carotid artery: Unremarkable. No occlusion or significant stenosis. No dissectio n. Right internal carotid artery: Unremarkable. Extracranial segment is patent with no occlusion o r significant stenosis. No dissection. Right external carotid artery: Unremarkable. No occlusion. Right vertebral artery: Unremarkable. No occlusion or significant stenosis. No dissection. Left common carotid artery: Unremarkable. No occlusion or significant stenosis. No dissection . Left internal carotid artery: Unremarkable. Extracranial segment is patent with no occlusion or significant stenosis. No dissection. Left external carotid artery: Unremarkable. No occlusion. Left vertebral artery: Unremarkable. No occlusion or significant stenosis. No dissection. NECK: Bones/joints: Unremarkable. No acute fracture. Soft tissues: Unremarkable. Lung apices: Emphysematous changes in the lung apices. IMPRESSION: No significant stenosis. No dissection or occlusion. Electronically signed by: Gautam Lennon MD 11/21/2023 03:05 AM CDT 8 Due to temporary technical issues with the PACS/Fluency reporting system, reports are being signed by the in house radiologists without review as a courtesy to insure prompt reporting. The interpreting radiologist is fully responsible for the content of the report.
--- NOTE | 2023-11-21 19:23 | RAD REPORT ---
EXAM DESCRIPTION: CT Angiography Head With Intravenous Contrast CLINICAL HISTORY: The patient is 83 years old and is Male; STROKE ALERT TECHNIQUE: Axial computed tomographic angiography images of the head with intravenous contrast. Sa gittal and coronal reformatted images were created and reviewed. This CT exam was performed using o ne or more of the following dose reduction techniques: automated exposure control, adjustment of th e mA and/or kV according to patient size, and/or use of iterative reconstruction technique. MIP rec onstructed images were created and reviewed. COMPARISON: No relevant prior studies available. FINDINGS: Right internal carotid artery: No acute findings. Intracranial segment is patent with no significant stenosis. No aneurysm. Right anterior cerebral artery: Unremarkable. No occlusion or significant stenosis. No aneury sm. Right middle cerebral artery: Unremarkable. No occlusion or significant stenosis. No aneurysm . 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 No occlusion or significant stenosis. No aneurysm. Right vertebral artery: Unremarkable as visualized. Left internal carotid artery: No acute findings. Intracranial segment is patent with no signifi cant stenosis. No aneurysm. Left anterior cerebral artery: Unremarkable. No occlusion or significant stenosis. No aneurys m. Left middle cerebral artery: Unremarkable. No occlusion or significant stenosis. No aneurysm. Left posterior cerebral artery: Unremarkable. No occlusion or significant stenosis. No aneury sm. Left vertebral artery: Unremarkable as visualized. Basilar artery: Unremarkable. No occlusion or significant stenosis. No aneurysm. IMPRESSION: No occlusion or significant stenosis. No aneurysm. Electronically signed by: Gautam Lennon MD 11/21/2023 03:01 AM CDT RP 8 Due to temporary technical issues with the PACS/Fluency reporting system, reports are being signed by the in house radiologists without review as a courtesy to insure prompt reporting. The interpreting radiologist is fully responsible for the content of the report.
--- NOTE | 2023-11-21 19:25 | RAD REPORT ---
EXAM DESCRIPTION: Chest Single View TIME OF STUDY: 11/20/2023 11:20 PM CDT CLINICAL HISTORY: Weakness, headache, dizziness COMPARISON: None. FINDINGS: AP view of the chest was obtained, chest 1 view. Lungs: The lungs are adequately inflated. No dense airspace consolidation is noted.. Prominent inte rstitial markings could be consistent with fibrosis. Pleura: No pneumothorax. There is no pleural effusion. Heart and Mediastinum: Normal cardiomediastinal silhouette and great vessels.. Masslike density is noted along the right upper mediastinum. Mild mass effect on the trachea is noted. If clinically lokesh cated would recommend CT scan for further evaluation. Bones: No acute bony abnormality.. IMPRESSION: 1. Prominent interstitial markings with scattered lucencies is consistent with emphysema tous/fibrotic changes. 2. Large soft tissue mass along the right superior mediastinal border with mild mass effect on the tr achea. If clinically indicated would recommend CT scan for further evaluation. The soft tissue densit y measures approximately 8.0 x 5.3 cm Electronically signed by: Jose Green MD 11/21/2023 01:06 AM CDT RP Due to temporary technical issues with the PACS/Fluency reporting system, reports are being signed by the in house radiologists without review as a courtesy to insure prompt reporting. The interpreting radiologist is fully responsible for the content of the report.
--- NOTE | 2023-11-21 19:26 | RAD REPORT ---
EXAM DESCRIPTION: CT CHEST WITHOUT IV CONTRAST CLINICAL HISTORY: Mass COMPARISON: CT chest 10/04/2022 TECHNIQUE: CT exam of the chest was obtained without contrast. Multiplanar reformats were provided. Dose-optimization techniques such as automated exposure control, iterative reconstruction, and mA and /or kV adjustment for patient size was utilized for this examination. FINDINGS: LOWER NECK: Unremarkable. AIRWAYS: The right perihilar/mediastinal mass lesion approximates the right and posterior tracheal wa ll; tumor extension cannot be excluded. There is flattening of the intrathoracic trachea secondary to the mass effect of the right perihilar mass lesion and adjacent aortic arch. Trachea is otherwise pa tent. Mainstem bronchi are patent without significant deformity. LUNGS/PLEURA: Interval increase in size of a spiculated right perihilar/right upper lobe mass lesion with now extension into the right superior mediastinum, measuring approximately 6.2 x 3.3 x 7.1 cm (A P x TV x CC measurement on series 5 image 15 and series 6 image 49). There are multiple scattered pun ctate calcifications within the mass lesion. Emphysema throughout both lungs. No definite pulmonary n odules. No pleural effusions or pneumothorax. VASCULATURE: No evidence of thoracic aortic aneurysm. Mild atherosclerotic calcifications of the thor acic aorta. MEDIASTINUM/NODES: Multiple prominent mediastinal lymph nodes may be stable to increased, noting limi tation by lack of intravenous contrast. HEART: Normal heart size. Trace pericardial effusion. UPPER ABDOMEN: Hypodensity in renal collecting systems, likely residual contrast from recent CT angio gram exam. Several small renal cysts, likely benign Bosniak 1 type without indication for routine fol low-up imaging. Small hiatal hernia. Status post cholecystectomy. Prominent common bile duct, likely related to post cholecystectomy status. Visualized colonic diverticulosis without acute diverticuliti s. OSSEOUS/CHEST WALL: L1 sclerosis and mild compression deformity is new since 10/04/2022 and could re present interval compression fracture with reactive change. However metastasis cannot be excluded. Mi ld sclerosis in partially visualized L3 vertebral body. Multilevel degenerative changes of spine. IMPRESSION: 1. Enlarging right perihilar/right upper lobe mass lesion with now extension into the right superior mediastinum. 2. Mild mass effect onto the trachea with mild deformity. Trachea is otherwise patent. 3. L1 sclerosis and mild compression deformity is new since 10/04/2022,. Mild sclerosis in partially visualized L3 vertebral body. Bony metastasis cannot be excluded. 4. Prominent mediastinal lymph nodes may be stable to increased, noting limitation by lack of intra venous contrast. 5. Trace pericardial effusion. Electronically signed by: Denisse Villafana MD 11/21/2023 04:47 AM CDT RP Due to temporary technical issues with the PACS/Fluency reporting system, reports are being signed by the in house radiologists without review as a courtesy to insure prompt reporting. The interpreting radiologist is fully responsible for the content of the report.
== END 2023-11-21 06:59 | disposition short-term general hospital (02) ==
LOC: ER 23:04
DX: J39.8 Other specified diseases of upper respiratory tract (principal); R91.8 Other nonspecific abnormal finding of lung field; R53.1 Weakness
CPT/HCPCS: 36415; 70450; 70496; 70498; 71045; 71250; 80048; 80076; 80307; 82947; 83735; 84484; 85025; 85610; 85730; 93005; 99285; Q9967

== ENCOUNTER 2024-01-22 11:39 | Emergency (ER) | payer SELFPAY ==
--- OUTSIDE RECORDS SUMMARY | 2024-01-22 11:43 | XMS REPORT | Clinical Summary ---
Author Name Unknown Organization [facility] MD [facility] Address [address] [place] [address] Care Team Providers Care Manager Medical Affairs Name Role Phone Pako Lopez MD Unavailable Nick Delgado MD Primary Care Provider [phone] Marek Saini MD Unavailable [phone] Cristian Willasm MD Unavailable Navin Lal MD Unavailable Allergies No known active allergies Medications * This document contains information received from the source organization and may not represent a complete record from that organization. acetaminophen (TYLENOL) 500 mg tablet Take 500 mg by mouth every 6 (six) hours as needed for mild pain. Active aspirin 81 mg chewable tabletIndications :heart health Chew 1 tablet (81 mg) daily. 2 Active apixaban (Eliquis) 5 mg tabletIndications :prevent blood clot Take 1 tablet (5 mg) by mouth every 12 (twelve) hours. 60 tablet 5 2 Active tamsulosin (FLOMAX) 0.4 mg 24 hr capsuleIndication s:Adenocarcinoma of prostate Take 1 capsule (0.4 mg) by mouth twice daily. 60 capsule 11 2 Active atorvastatin (LIPITOR) 80 mg tabletIndications :Adenocarcinoma of prostate TAKE ONE TABLET BY MOUTH EVERY NIGHT AT BEDTIME 30 tablet 3 2 Active tamsulosin (FLOMAX) 0.4 mg 24 hr capsuleIndication s:Adenocarcinoma of prostate Take 2 capsules (0.8 mg) by mouth at bedtime. 60 capsule 6 2 Active enalapril (VASOTEC) 20 mg tabletIndications :Adenocarcinoma of prostate TAKE ONE TABLET BY MOUTH DAILY (SKIP DOSE IF SYSTOLIC BLOOD PRESSURE IS LESS THAN 110) 30 tablet 3 2 Active pantoprazole (PROTONIX) 40 mg EC tabletIndications :Adenocarcinoma of prostate TAKE ONE TABLET BY MOUTH DAILY 30 tablet 5 2 Active metoprolol succinate (TOPROL XL) 25 mg 24 hr tabletIndications :Essential (primary) hypertension TAKE ONE TABLET BY MOUTH ONCE DAILY ( HOLD DOSE IF SBP <110 OR HR <55 ) 90 tablet 1 2 Active amoxicillin-clavu lanate (Augmentin) 875 mg-125 mg per tabletIndications :Urinary tract infection Take 1 tablet (875 mg) by mouth twice daily. 14 tablet 10/03/2022 3:06 PM CDT 3 Active Active Problems Patient Care Coordination No te Formatting of this note migh t be different from the original. Patient with cognitive issues and needs assistance with ADLs. Please allow daughter to accompany him to clinic visits and procedures . The following people are approved to obtain medical information about the patient via phone: Contact #1: Name: Latoya Serna ( Daughter ) [phone] Contact #2: Name: Phone Number: Contact #3: Name: Phone Number: Contact #4: Name: Phone Number: Patient has some cognitive deficiency that will require assistance by his daughter during procedures and clinic visits. Problem Noted Date Diagnosed Date Acute coronary syndrome 05/24/2021 High troponin I level 05/24/2021 Dyspnea 05/22/2021 Abdominal pain 05/22/2021 Atrial fibrillation 08/22/2020 Assessment & Plan (10/27/2020 4:29 PM CDT): Patient had an episode of atrial fibrillation [...] 02/14/2020 Nocturia 02/14/2020 Essential (primary) hypertension 02/13/2020 Assessment & Plan (10/27/2020 4:28 PM CDT): Blood pressure modestly controlled in the clinicat 146/71. Continue management with metoprolol succinate 25 mg daily and enalapril 10 mg p.o. daily Mixed hyperlipidemia 02/13/2020 Adenocarcinoma of prostate 02/08/2020 Encounters Date Type Department Care Team Description 08/09/2023 Orders Only [facility]astroenterology, Hepatology & Nutrition [address] [facility] [address] [facility], 7th [place] [address] Ambrosio Tran PA-C after 01/22/2023 Immunizations Name Administration Dates Next Due S-cubism SARS-CoV-2 Vaccination 05/31/2020 Surgical History Surgery Date Site/Laterality Comments LAPAROSCOPIC CHOLECYSTECOMY PROSTATE BIOPSY 09/14/2019 HERNIA REPAIR Bilateral SHOULDER SURGERY 03/14/2011 - 03/13/2012 Right MS COLONOSCOPY FLX DX W/COLLJ SPEC WHEN PFRMD [...] Sex Assigned at Male 05/22/2021 5:00 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 INSURANCE 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 Legal Sex Male 1:45 PM CDT Gender Identity Male 05/22/2021 5:00 PM NATIONAL INSURANCE OFFICER Sexual Orientation Not on file Obstetrics History Plan of [...] 9:33 PM 02/29/2020 8:36 PM Care Teams Manager Medical Affairs Relationship Specialty Start Date End Date Pako Lopez MD [facility]: [address] [place] [id number] [email or web address] PCP - External Referring Urology 10/11/19 iNck Delgado MD [address] [place] [id number] [email or web address] PCP - General Genitourinary Oncology 01/25/20 Marek Saini MD [address] [place] [id number] [email or web address] Consulting Physician Radiation Oncology 02/14/20 Cristian Willams MD [address] [place] [id number] [email or web address] Consulting Physician Supportive Care 10/07/20 Navin Lal MD [address] [place] [id number] [email or web address] Consulting Physician Gastroenterology, Hepatology and Nutrition 10/31/20
[2024-01-22] MEDS ORDERED: ASPIRIN 81 MG CHEWABLE TABLET ONE (11:57)
[2024-01-22] MEDS ORDERED: NA CHLORIDE 0.9% 1,000 ML ONE (11:57)
[2024-01-22] MEDS ORDERED: FAMOTIDINE 20 MG/2 ML VIAL IV ONE (11:57)
[2024-01-22 12:07] LABS: Absolute Basophils 0.1 K/uL (0-0.5); Absolute Eosinophils 0.1 K/uL (0-0.5); Absolute Lymphocytes (CBC) 0.3 K/uL (0.7-4.9); Absolute Monocytes 0.8 K/uL (0.1-1.3); Absolute Neutrophil 6.9 K/uL (1.8-8.0); Basophils % 0.7 % (0-1.3); Eosinophils % 1.2 % (0-4.4); Hemoglobin 9.8 g/dL (13.6-17.9); MCH 26.3 pg (27.0-35.0); MCHC 31.6 g/dL (32.0-36.0); MCV 83.2 fL (80-100); MPV 7.5 fL (7.6-11.3); Monocytes % 9.6 % (3.3-12.3); Neutrophils % 84.5 % (41.7-73.7); PT Prothrombin Time 21.2 SECONDS (9.4-12.5); Platelets 332 thou/uL (152-406); Protime INR 1.93; RBC Red Blood Cell Count 3.72 M/uL (4.33-5.43); Red Cell Distribution Width 16.8 % (12.1-15.2)
[2024-01-22 12:25] LABS: Albumin 2.4 g/dL (3.4-5.0); Albumin/Globulin Ratio 0.7 (1.1-1.8); Anion Gap 6.9 mEq/L (5.0-15.0); Bilirubin Direct 0.2 mg/dL (0-0.2); Bilirubin Indirect, Calculated 0.5 mg/dL (0.2-0.8); Bilirubin Total 0.7 mg/dL (0.2-1.0); Globulin 3.6 g/dL (2.3-3.5); Magnesium 1.9 mg/dL (1.6-2.4); Potassium 2.9 mEq/L (3.5-5.1)
[2024-01-22] MEDS ORDERED: LEVALBUTEROL 1.25 MG/3 ML NEB ONE (12:25)
[2024-01-22] MEDS ORDERED: dexAMETHasone 10 MG/ML VIAL ONE (12:25)
[2024-01-22] MEDS ORDERED: IPRATROPIUM BROM 0.5MG/2.5ML ONE (12:25)
[2024-01-22] MEDS ORDERED: PIPERACIL/TAZO 3.375 GM VIAL IV ONE (12:26)
[2024-01-22] MEDS ORDERED: NA CHLORIDE 0.9% 100 ML ONE (12:26)
[2024-01-22 12:39] LABS: Troponin High Sensitivity 69.6 pg/mL (<58.9)
--- NOTE | 2024-01-22 12:53 | RAD REPORT ---
EXAMINATION: ONE VIEW CHEST XR CLINICAL INDICATION: Male, 83 years old.,CHEST PAIN TECHNIQUE: Frontal chest projection is submitted. Examination is limited by patient positioning and t echnique. COMPARISON: 11/21/2023 FINDINGS: The lungs are mildly suboptimally inflated. Diffuse interstitial thickening and mild hyperinflation a gain seen. Patchy masslike opacification along the medial right upper lung again seen. Blunting of the costophrenic angles, slightly more pronounced on the right,. No pneumothorax or sizable effusion . The heart is normal in size. Mediastinal contours are unremarkable. IMPRESSION: Stable findings except for blunting of the costophrenic angles, which may relate to trace effusions o r pleural thickening. Otherwise stable findings as above.
[2024-01-22] MEDS ORDERED: POTASSIUM 25 MEQ EFFERV TAB ONE (13:24)
--- NOTE | 2024-01-22 14:12 | RAD REPORT ---
EXAM: CT Thorax W/ Con CLINICAL INDICATION: Male, 83 years old. [facility] MAIN NA CHEST PAIN Bed Name: 6 N TECHNIQUE: Routine CT scan of the chest with intravenous contrast. One or more of the following dose reduction techniques were used: Automated exposure control, adjustment of the mA and/or kV according to patient size, and/or iterative reconstruction. Unless otherwise specified, incidental fi ndings do not require dedicated imaging follow-up. COMPARISON: 11/21/2023 FINDINGS: LUNGS: Progressive masslike medial right upper lobe airspace opacity measuring 7 x 4 cm, previously m easured up to 5.5 x 3.1 cm. Progressive mass effect upon the mid thoracic trachea, now with the kink appreciated on coronal image 51/112. Background advanced emphysematous changes predominantly wit h subpleural blebs again seen. PLEURA: Bilateral pleural effusions moderate on the right and small on the left, new. No pneumothorax . MEDIASTINUM AND LYMPH NODES: No mediastinal mass or fluid collection. Progressive prevascular lymph n odes largest measuring 7 mm in short axis. Stable pretracheal lymph node measuring 9 mm in short axis. Mildly prominent right hilar lymph nodes largest measuring 11 mm in short axis. OSSEOUS STRUCTURES AND CHEST WALL: Intact. UPPER ABDOMEN: No significant abnormalities. IMPRESSION: Progressive masslike medial right upper lobe airspace opacity as above, with more prominent mass effe ct upon the upper trachea. Underlying malignancy is suspected until proven otherwise. Mildly progressive mediastinal adenopathy. New bilateral pleural effusions larger on the right.
--- NOTE | 2024-01-22 14:14 | RAD REPORT ---
EXAMINATION: US Extrem Venous W Compress Matt CLINICAL INDICATION: [facility] MAIN Pain;Swelling Bed Name: 6 N TECHNIQUE: Complete bilateral duplex sonography of the BILATERAL lower extremity veins was performed. The examination included compression for vein patency, color Doppler imaging and flow augmentation in response to distal compression of the distal external iliac, common femoral, femoral, popliteal, t ibial, and great and small saphenous veins. COMPARISON: No prior exam. FINDINGS: Duplex sonography testing of the veins of the BILATERAL lower extremity was performed. Color flow cole ging shows all veins to be compressible with [id number] color filling. Pulsatile and phasic flow is present within all lower extremity deep and superficial veins examined. IMPRESSION: There is no deep vein or superficial vein thrombosis.
--- NOTE | 2024-01-22 14:43 | EDPHYS ---
Physician Documentation [facility] Name: Jesse Serna Age: 83 yrs Sex: Male : 1940 Arrival Date: 01/22/2024 Time: 11:39 Bed 6 Private MD: ED Physician Jameel Valdivia HPI: 01/21 12:21 This 83 yrs old Male presents to ER via Wheelchair with complaints of Chest jacqueline Pressure. 12:21 The patient or guardian reports chest pain that is located primarily in the anterior jacqueline chest wall, bilaterally. Onset: today. The pain does not radiate. Associated signs and symptoms: Pertinent positives: shortness of breath. The chest pain is described as aching. Modifying factors: The symptoms are alleviated by nothing. the symptoms are aggravated by nothing. Severity of pain: At its worst the pain was mild in the emergency department the pain has improved mildly. The patient has experienced similar episodes in the past, multiple times. Historical: - Allergies: 12:00 Aspirin; mb9 - Home Meds: 12:00 Eliquis oral [Active]; enalapril maleate Oral [Active]; Protonix Oral [Active]; mb9 - PMHx: 12:00 Arthritis; Atrial fibrillation; Hypertension; prostate cancer- in remission; mb9 - PSHx: 12:00 Appendectomy; mb9 - Infectious Disease History:: Denies. - Social history:: Smoking status: Patient denies any tobacco usage or history of. - Family history:: not pertinent. ROS: 12:21 Constitutional: Negative for fever, chills, and weight loss, Eyes: Negative for injury, jacqueline pain, redness, and discharge, ENT: Negative for injury, pain, and discharge, Neck: Negative for injury, pain, and swelling, Cardiovascular: Negative for chest pain, palpitations, and edema, Abdomen/GI: Negative for abdominal pain, nausea, vomiting, diarrhea, and constipation, Back: Negative for injury and pain, : Negative for injury, bleeding, discharge, and swelling, MS/Extremity: Negative for injury and deformity, Skin: Negative for injury, rash, and discoloration, Neuro: Negative for headache, weakness, numbness, tingling, and seizure, Psych: Negative for depression, anxiety, suicide ideation, homicidal ideation, and hallucinations, Allergy/Immunology: Negative for hives, rash, and allergies, Endocrine: Negative for neck swelling, polydipsia, polyuria, polyphagia, and marked weight changes, Hematologic/Lymphatic: Negative for swollen nodes, abnormal bleeding, and unusual bruising, 12:21 Respiratory: Positive for cough, with no reported sputum, dyspnea on exertion, shortness of breath, at rest. Exam: 12:21 Constitutional: This is a well developed, well nourished patient who is awake, alert, jacqueline and in no acute distress. Head/Face: Normocephalic, atraumatic. Eyes: Pupils equal round and reactive to light, extra-ocular motions intact. Lids and lashes normal. Conjunctiva and sclera are non-icteric and not injected. Cornea within normal limits. Periorbital areas with no swelling, redness, or edema. ENT: Nares patent. No nasal discharge, no septal abnormalities noted. Tympanic membranes are normal and external auditory canals are clear. Oropharynx with no redness, swelling, or masses, exudates, or evidence of obstruction, uvula midline. Mucous membranes moist. Neck: Trachea midline, no thyromegaly or masses palpated, and no cervical lymphadenopathy. Supple, full range of motion without nuchal rigidity, or vertebral point tenderness. No Meningismus. Chest/axilla: Normal chest wall appearance and motion. Nontender with no deformity. No lesions are appreciated. Cardiovascular: Regular rate and rhythm with a normal S1 and S2. No gallops, murmurs, or rubs. Normal PMI, no JVD. No pulse deficits. Abdomen/GI: Soft, non-tender, with normal bowel sounds. No distension or tympany. No guarding or rebound. No evidence of tenderness throughout. Back: No spinal tenderness. No costovertebral tenderness. Full range of motion. Male : Normal genitalia with no discharge or lesions. Skin: Warm, dry with normal turgor. Normal color with no rashes, no lesions, and no evidence of cellulitis. Neuro: Awake and alert, GCS 15, oriented to person, place, time, and situation. Cranial nerves II-XII grossly intact. Motor strength 5/5 in all extremities. Sensory grossly intact. Cerebellar exam normal. Normal gait. Psych: Awake, alert, with orientation to person, place and time. Behavior, mood, and affect are within normal limits. 12:21 ECG was reviewed by the Attending Physician. 12:21 Respiratory: the patient does not display signs of respiratory distress, Respirations: normal, Breath sounds: are clear throughout, no bronchial sounds, no decreased breath sounds, no rales, rhonchi, no stridor, no wheezing, Respiratory rate: 22 Vital Signs: 11:43 BP 139 / 68; Pulse 69; Resp 22 S; Temp 98.4(O); Pulse Ox 65% on R/A; aa5 11:45 Pulse Ox 90% on 6 lpm NC; aa5 12:20 Weight 79.38 kg; Height 6 ft. 0 in. ; mb9 12:29 BP 165 / 74; Pulse 63; Resp 20; Pulse Ox 97% on 3 lpm NC; mb9 13:22 BP 155 / 56; Pulse 68; Resp 24; Pulse Ox 96% on 3 lpm NC; mb9 14:56 BP 147 / 58; Pulse 67; Resp 20; Pulse Ox 95% on 3 lpm NC; mb9 16:16 BP 167 / 79; Pulse 65; Resp 18; Pulse Ox 95% on 3 lpm NC; mb9 12:20 Body Mass Index 23.73 (79.38 kg, 182.88 cm) mb9 MDM: 11:43 Medical Screening Exam initiated jacqueline 12:24 Differential diagnosis: abnormal EKG, acute myocardial infarction, acute pericarditis, jacqueline anxiety, coronary artery disease chest wall pain, congestive heart failure costochondritis, gastroesophageal reflux disease (GERD), hiatal hernia, peptic ulcer disease, pneumonia, pulmonary embolus, stable angina, thoracic aortic disection, unstable angina. HEART Score: ECG: Non specific repolarization disturbance / LBTB / PM (1), Age: > or = 65 years (2), Risk Factors: > or = 3 Risk factors for atherosclerotic disease (2), [Hypercholesterolemia] [Hypertension] [+ Family HX] [Obesity] Troponin: < or = 1 x Normal Limit (0). The patient was not given aspirin in the Emergency Department. Not indicated due to patient's past medical history. EMELY Risk Score: 1 - patient's age is greater or equal to 65 years, 1 - Three or more CAD risk factors, 1- Known CAD, 1 - Recent [<24hrs] Severe Angina, TOTAL SCORE = 4. Data reviewed: vital signs, nurses notes, lab test result(s), EKG, radiologic studies, CT scan, plain films. Consideration of Admission/Observation Patient was admitted/placed on observation. Escalation of care including admission/observation considered. I considered the following discharge prescriptions or medication management in the emergency department Medications were administered in the Emergency Department. See MAR. Independent interpretation of the following test(s) in the Emergency Department EKG: See my EKG interpretation above. Test considered but Not performed: Ultrasound NO 2 D ECHO. Historians other than the Patient: EMS: EMS AND SON WELL INFORMED. Care significantly affected by the following chronic conditions: Hypertension, Obesity, Cancer. Counseling: I had a detailed discussion with the patient and/or guardian regarding the historical points, exam findings, and any diagnostic results supporting the discharge/admit diagnosis, lab results, radiology results, the need for outpatient follow up, the need to transfer to another facility, for higher level of care, [facility] does not immediately have the required specialist. 01/21 11:44 Order name: Basic Metabolic Panel; Complete Time: 13:06 [facility] 01/21 11:44 Order name: CBC with Diff; Complete Time: 13:06 [facility] 01/21 11:44 Order name: LFT's; Complete Time: 13:06 01/21 11:44 Order name: Magnesium; Complete Time: 13:06 01/21 11:44 Order name: NT PRO-BNP; Complete Time: 13:06 01/21 11:44 Order name: PT-INR; Complete Time: 13:06 01/21 11:44 Order name: Troponin HS; Complete Time: 13:06 01/21 11:44 Order name: Lipase; Complete Time: 13:06 01/21 12:17 Order name: Blood Culture Adult (2) 01/21 12:17 Order name: Lactate w/ 2H reflex if indic.; Complete Time: 13:06 01/21 11:44 Order name: XRAY Chest (1 view); Complete Time: 13:06 01/21 12:12 Order name: US Extremity Venous W Compression Matt; Complete Time: 14:34 01/21 12:29 Order name: CT Chest W/ Con; Complete Time: 14:34 01/21 11:44 Order name: Cardiac monitoring; Complete Time: 11:46 01/21 11:44 Order name: EKG - Nurse/Tech; Complete Time: 11:55 [facility] 01/21 11:44 Order name: IV Saline Lock; Complete Time: 11:57 [facility] 01/21 11:44 Order name: Labs collected and sent; Complete Time: 11:57 [facility] 01/21 11:44 Order name: O2 Per Protocol; Complete Time: 11:46 [facility] 01/21 11:44 Order name: O2 Sat Monitoring; Complete Time: 11:47 [facility] EC:21 Rate is 66 beats/min. Rhythm is regular. QRS [place] is Normal. [place] interval is normal. QRS jacqueline interval is normal. QT interval is normal. No Q waves. T waves are Normal. No ST changes noted. Clinical impression: NSR w/ Non-specific ST/T Changes and No evidence of ischemia. Interpreted by me. Reviewed by me. Administered Medications: 12:12 Discontinued: ns 0.9% 1000 ml IV at 125 ml/hr continuous jacqueline 12:01 Not Given (Physician Discretion): aspirinchewable tablet 162 mg PO once mb9 12:02 Drug: Famotidine IVP 20 mg IVP once; dilute with 10 mL 0.9% NaCl; give over 2 minutes ko1 Route: IVP; Site: left antecubital; 12:15 Follow up: Response: No adverse reaction mb9 12:03 Drug: NS 0.9% IV 1000 ml IV at 125 ml/hr continuous Route: IV; Rate: 125 ml/hr; Site: ko1 left antecubital; 12:14 Follow up: Response: No adverse reaction; IV Status: Order to discontinue infusion mb9 12:29 Drug: Levalbuterol Inhalation 1.25 mg Inhalation once Route: Inhalation; mb9 13:22 Follow up: Response: No adverse reaction mb9 12:29 Drug: Ipratropium Inhalation Aerosol 0.5 mg Inhalation once Route: Inhalation; mb9 13:22 Follow up: Response: No adverse reaction mb9 12:30 Drug: Decadron - Dexamethasone IVP 10 mg IVP once Route: IVP; Site: left antecubital; mb9 13:22 Follow up: Response: No adverse reaction mb9 12:37 Drug: Piperacillin-Tazobactam IVPB 3.375 grams IVPB once over 60 mins; (mix in NS 100 mb9 mL) Route: IVPB; Infused Over: 60 mins; Site: left antecubital; 13:32 Follow up: Response: No adverse reaction; IV Status: Completed infusion mb9 13:28 Drug: Potassium PO Effervescent Tablet 50 mEq PO once; dissolve in 4 ounces of water or mb9 juice Route: PO; 15:01 Follow up: Response: No adverse reaction aa5 15:03 Drug: Acetaminophen PO 1000 mg PO once Route: PO; mb9 15:09 Follow up: Response: No adverse reaction mb9 15:38 Drug: NS 0.9% with KCl IV 20 mEq/L 1000 ml IV at 100 ml/hr continuous Route: IV; Rate: mb9 100 ml/hr; Site: left antecubital; 16:10 Follow up: Response: No adverse reaction; IV Status: Infusion continued upon transfer mb9 Disposition Summary: 01/22/24 14:42 Transfer Ordered Notes: Transfer Location: [facility] jacqueline Reason: Higher level of care jacqueline Condition: Fair jacqueline Problem: new jacqueline Symptoms: have improved jacqueline Accepting Physician: TO [facility](01/22/24 16:20) mb9 Diagnosis - Chest pain, unspecified jacqueline - Unstable angina jacqueline - Anemia, unspecified jacqueline - Hypokalemia jacqueline - Malignant neoplasm of upper lobe, right bronchus or lung - RIGHT UPPER LUNG WITH jacqueline MASS EFFECT OF TRACHEA - MCC (current) use of anticoagulants jacqueline - Hypoxemia jacqueline - Pleural effusion, not elsewhere classified - RIGHT GREATER THAN LEFT jacqueline Forms: - Medication Reconciliation Form jacqueline - SBAR form jacqueline Signatures: Dispatcher [employer] EDJameel Flores MD MD cha Calderon, Audri RN RN aa5 Michelle Renteria RN RN ko1 Petra Muro, RN RN mb9 Corrections: (The following items were deleted from the chart) 11:45 11:45 BASIC METABOLIC PANEL+C.LAB.BRZ ordered. EDMS EDMS 11:45 11:45 CBC+H.LAB.BRZ ordered. EDMS EDMS 11:45 11:45 HEPATIC FUNCTION+C.LAB.BRZ ordered. EDMS EDMS 11:45 11:45 MAGNESIUM+C.LAB.BRZ ordered. EDMS EDMS 11:45 11:45 PROBNP+C.LAB.BRZ ordered. EDMS EDMS 11:45 11:45 PROTIME (+INR)+COAG.LAB.BRZ ordered. EDMS EDMS 11:45 11:45 Troponin High Sensitivity+C.LAB.BRZ ordered. EDMS EDMS 11:45 11:45 LIPASE+C.LAB.BRZ ordered. EDMS EDMS 11:45 11:45 Chest Single View+RAD.RAD.BRZ ordered. EDMS EDMS 12:30 12:30 Thorax W/ Con+CT.RAD.BRZ ordered. EDMS EDMS 16:20 14:42 [place] [id number]
--- NOTE | 2024-01-22 14:43 | ER ---
Nurse's Notes [facility] Name: Jesse Serna Age: 83 yrs Sex: Male : 1940 Arrival Date: 01/22/2024 Time: 11:39 Bed 6 Private MD: Diagnosis: Chest pain, unspecified;Unstable angina;Anemia, unspecified;Hypokalemia;Malignant neoplasm of upper lobe, right bronchus or lung-RIGHT UPPER LUNG WITH MASS EFFECT OF TRACHEA ;alf (current) use of anticoagulants;Hypoxemia;Pleural effusion, not elsewhere classified-RIGHT GREATER THAN LEFT Presentation: 01/21 11:43 Chief complaint: Pt's son states "He woke up feeling dizzy, short of breath, and having aa5 chest pain". Pt also reports increased roman leg swelling. 11:43 Coronavirus screen: shortness of breath. Ebola Screen: Patient denies travel to an aa5 Ebola-affected area in the 21 days before illness onset. Initial Sepsis Screen: Does the patient meet any 2 criteria? No. Patient's initial sepsis screen is negative. Does the patient have a suspected source of infection? No. Patient's initial sepsis screen is negative. Risk Assessment: Do you want to hurt yourself or someone else? Patient reports no desire to harm self or others. Onset of symptoms was January 22, 2024. 11:43 Acuity: KT 1 aa5 11:43 Method Of Arrival: Wheelchair aa5 Historical: - Allergies: 12:00 Aspirin; mb9 - Home Meds: 12:00 Eliquis oral [Active]; enalapril maleate Oral [Active]; Protonix Oral [Active]; mb9 - PMHx: 12:00 Arthritis; Atrial fibrillation; Hypertension; prostate cancer- in remission; mb9 - PSHx: 12:00 Appendectomy; mb9 - Infectious Disease History:: Denies. - Social history:: Smoking status: Patient denies any tobacco usage or history of. - Family history:: not pertinent. Screenin:00 [facility] ED Fall Risk Assessment (Adult) History of falling in the last 3 months, mb9 including since admission No falls in past 3 months (0 pts) Confusion or Disorientation No (0 pts) Intoxicated or Sedated No (0 pts) Impaired Gait No (0 pts) Mobility Assist Device Used No (0 pt) Altered Elimination No (0 pt) Score/Fall Risk Level 0 - 2 = Low Risk Oriented to surroundings, Maintained a safe environment, Educated pt \\T\\ family on fall prevention, incl call for assistance when getting out of bed. Abuse screen: Denies threats or abuse. Nutritional screening: No deficits noted. Tuberculosis screening: No symptoms or risk factors identified. Assessment: 11:59 General: Appears uncomfortable, Behavior is cooperative. Pain: Complains of pain in mb9 chest Pain radiates to back and neck Pain currently is 7 out of 10 on a pain scale. Quality of pain is described as pressure, throbbing, Pain began suddenly, Is continuous. Neuro: Graham Agitation-Sedation Scale (RASS): 0 - Alert and Calm Level of Consciousness is awake, alert, obeys commands, Oriented to person, place, time, situation, Appropriate for age. Cardiovascular: Reports chest pain, Heart tones S1 S2 present Patient's skin is warm and dry. Cardiovascular: Edema is 1+ to left foot, left toes, right foot and right toes. Respiratory: Airway is patent Respiratory effort is even, unlabored, Respiratory pattern is regular, symmetrical, Breath sounds are coarse bilaterally. GI: Abdomen is flat, non-distended, Bowel sounds present X 4 quads. Abd is soft and non tender X 4 quads. : No signs and/or symptoms were reported regarding the genitourinary system. EENT: No signs and/or symptoms were reported regarding the EENT system. Derm: Skin is pink, warm \\T\\ dry. Musculoskeletal: Range of motion: intact in all extremities. 13:15 Reassessment: No changes from previously documented assessment. Patient and/or family mb9 updated on plan of care and expected duration. Pain level reassessed. Patient is alert, oriented x 3, equal unlabored respirations, skin warm/dry/pink. 14:35 Reassessment: No changes from previously documented assessment. Patient and/or family mb9 updated on plan of care and expected duration. Pain level reassessed. Patient is alert, oriented x 3, equal unlabored respirations, skin warm/dry/pink. 16:15 Reassessment: Report given to [facility]. mb9 16:16 Reassessment: No changes from previously documented assessment. Patient and/or family mb9 updated on plan of care and expected duration. Pain level reassessed. Patient is alert, oriented x 3, equal unlabored respirations, skin warm/dry/pink. Vital Signs: 11:43 BP 139 / 68; Pulse 69; Resp 22 S; Temp 98.4(O); Pulse Ox 65% on R/A; aa5 11:45 Pulse Ox 90% on 6 lpm NC; aa5 12:20 Weight 79.38 kg; Height 6 ft. 0 in. ; mb9 12:29 BP 165 / 74; Pulse 63; Resp 20; Pulse Ox 97% on 3 lpm NC; mb9 13:22 BP 155 / 56; Pulse 68; Resp 24; Pulse Ox 96% on 3 lpm NC; mb9 14:56 BP 147 / 58; Pulse 67; Resp 20; Pulse Ox 95% on 3 lpm NC; mb9 16:16 BP 167 / 79; Pulse 65; Resp 18; Pulse Ox 95% on 3 lpm NC; mb9 12:20 Body Mass Index 23.73 (79.38 kg, 182.88 cm) mb9 ED Course: 11:42 Patient arrived in ED. ra3 11:43 Jameel Valdivia MD is Attending Physician. jacqueline 11:45 Petra Muro, RN is Primary Nurse. mb9 11:58 Initial lab(s) drawn, by me, sent to lab. EKG done, by ED staff, reviewed by Jameel Valdivia MD. Inserted saline lock: 18 gauge in left antecubital area, using aseptic technique. Blood collected. Flushed with 10 mL NS. 12:00 Placed in gown. Bed in low position. Call light in reach. Side rails up X 1. Provided kaleigh Education on: press call light if needing anything. Client placed on continuous cardiac and pulse oximetry monitoring. NIBP monitoring applied. case monitor on. 12:08 XRAY Chest (1 view) In Process Unspecified. EDMS 12:10 Triage completed. aa5 12:17 Arm band placed on. mb9 12:36 Lactate w/ 2H reflex if indic. Sent. ls5 12:36 Blood Culture Adult (2) Sent. ls5 13:02 US Extremity Venous W Compression Roman In Process Unspecified. EDMS 13:13 CT Chest W/ Con In Process Unspecified. EDMS 14:46 initiated a transfer with Andres from the [facility]. eb 15:07 connected the hospitalist photonics engineering technician for [facility] with Dr. Valdivia for patient eb transfer consultation. 15:09 administrative approval given by Andres Ackerman Rn/ patient has been accepted to [facility] room #1126/ Dr. Subhash Buchanan has accepted the patient in transfer/ report to be called to [phone]. 15:38 No provider procedures requiring assistance completed. Patient transferred, IV remains mb9 in place. Administered Medications: 12:12 Discontinued: ns 0.9% 1000 ml IV at 125 ml/hr continuous jacqueline 12:01 Not Given (Physician Discretion): aspirinchewable tablet 162 mg PO once mb9 12:02 Drug: Famotidine IVP 20 mg IVP once; dilute with 10 mL 0.9% NaCl; give over 2 minutes ko1 Route: IVP; Site: left antecubital; 12:15 Follow up: Response: No adverse reaction mb9 12:03 Drug: NS 0.9% IV 1000 ml IV at 125 ml/hr continuous Route: IV; Rate: 125 ml/hr; Site: ko1 left antecubital; 12:14 Follow up: Response: No adverse reaction; IV Status: Order to discontinue infusion mb9 12:29 Drug: Levalbuterol Inhalation 1.25 mg Inhalation once Route: Inhalation; mb9 13:22 Follow up: Response: No adverse reaction mb9 12:29 Drug: Ipratropium Inhalation Aerosol 0.5 mg Inhalation once Route: Inhalation; mb9 13:22 Follow up: Response: No adverse reaction mb9 12:30 Drug: Decadron - Dexamethasone IVP 10 mg IVP once Route: IVP; Site: left antecubital; mb9 13:22 Follow up: Response: No adverse reaction mb9 12:37 Drug: Piperacillin-Tazobactam IVPB 3.375 grams IVPB once over 60 mins; (mix in NS 100 mb9 mL) Route: IVPB; Infused Over: 60 mins; Site: left antecubital; 13:32 Follow up: Response: No adverse reaction; IV Status: Completed infusion mb9 13:28 Drug: Potassium PO Effervescent Tablet 50 mEq PO once; dissolve in 4 ounces of water or mb9 juice Route: PO; 15:01 Follow up: Response: No adverse reaction aa5 15:03 Drug: Acetaminophen PO 1000 mg PO once Route: PO; mb9 15:09 Follow up: Response: No adverse reaction mb9 15:38 Drug: NS 0.9% with KCl IV 20 mEq/L 1000 ml IV at 100 ml/hr continuous Route: IV; Rate: mb9 100 ml/hr; Site: left antecubital; 16:10 Follow up: Response: No adverse reaction; IV Status: Infusion continued upon transfer mb9 Medication: 12:00 VIS not applicable for this client. mb9 Outcome: 14:42 ER care complete, transfer ordered by . jacqueline 15:38 Transferred by ground EMS to [facility], Transfer form completed. mb9 X-rays sent w/ patient. Note: Report given to transferring nurse ARA Lama 15:38 Condition: stable 15:38 Instructed on the need for transfer, 16:20 Patient left the ED. mb9 Signatures: Dispatcher [employer] EDMS Jameel Valdivia MD MD cha Calderon, Audri, RN RN aa5 Kathie Meredith Kathy, RN RN ko1 Petra Muro, RN RN mb9 Oral Jose5 Marissa Abdullahi ra3 Corrections: (The following items were deleted from the chart) 13:27 13:22 Pulse 68bpm; Resp 24bpm; Pulse Ox 94% 3 lpm Nasal Cannula; mb9 mb9
[2024-01-22] MEDS ORDERED: ACETAMINOPHEN 500 MG TAB ONE (14:59)
[2024-01-22] MEDS ORDERED: NS KCL 20MEQ 1,000 ML IV ONE (15:28)
[2024-01-22 16:38] VITALS: TEMP 98.4
[2024-01-22 16:47] VITALS: O2SAT 95
[2024-01-22 16:48] VITALS: BP 167/79
--- NOTE | 2024-01-23 12:05 | EKG ---
Test Date: 2024-01-22 Test Time: 11:52:20 Telephone Switchboard Operator: MB MEASUREMENT RESULTS: Intervals: Rate: 66 DE: 170 QRSD: 168 QT: 464 QTc: 486 [place]: P: 89 DE: 170 QRS: -71 T: 52 INTERPRETIVE STATEMENTS: Normal sinus rhythm Right bundle branch block Left anterior fascicular block Bifascicular block Abnormal ECG No previous ECG available for comparison Electronically Signed On 01-23-24 12:05:05 MANAGER EQUIPMENT by Nain Woodard
== END 2024-01-22 16:20 | disposition short-term general hospital (02) ==
LOC: ER 11:39
DX: R07.9 Chest pain, unspecified (principal); I20.0 Unstable angina; J90 Pleural effusion, not elsewhere classified; R09.02 Hypoxemia; D64.9 Anemia, unspecified; E87.6 Hypokalemia; C34.11 Malignant neoplasm of upper lobe, right bronchus or lung; Z79.01 Long term (current) use of anticoagulants
CPT/HCPCS: 36415; 71045; 71260; 80048; 80076; 83605; 83690; 83735; 83880; 84484; 85025; 85610; 87040; 93005; 93970; 96361; 96365; 96375; 99285; J1100; J2543; J3480; J7030; J7614; J7644; Q9967

== ENCOUNTER 2024-03-10 12:28 | Inpatient (IN) | payer SELFPAY ==
--- OUTSIDE RECORDS SUMMARY | 2024-03-10 12:31 | XMS REPORT | Clinical Summary ---
Author Name Unknown Organization [facility] Address [address] [place] [address] Care Team Providers Care Police Inspector Name Role Phone Pako Lopez MD Unavailable Nick Delgado MD Primary Care Provider [phone] Marek Saini MD Unavailable [phone] Cristian Willams MD Unavailable Navin Lal MD Unavailable [phone] Allergies No known active allergies Medications * [...] #1: Name: Latoya Serna ( Daughter ) [phone] Contact #2: Name: Phone Number: Contact #3: [...] Center - Gastroenterology, Hepatology & Nutrition [address] [facility], [address]th [place] [address] Ambrosio Tran PA-C after 03/11/2023 Immunizations Name Administration Dates Next Due [email or web address] SARS-CoV-2 Vaccination 05/31/2020 Surgical History Surgery Date Site/Laterality Comments LAPAROSCOPIC CHOLECYSTECOMY PROSTATE BIOPSY 09/14/2019 HERNIA REPAIR Bilateral SHOULDER SURGERY 03/14/2011 - 03/13/2012 Right PA COLONOSCOPY FLX DX W/COLLJ SPEC WHEN PFRMD [...] Sex Assigned at Male 05/22/2021 5:00 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 Legal Sex Male 1:45 PM CDT Gender Identity Male 05/22/2021 5:00 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 Consulting Physician Radiation Oncology 02/14/20 Cristian Willams MD [address] [place] [id number] [email or web address] Consulting Physician Supportive Care 10/07/20 Navin Lal MD [address] [place] [id number] [email or web address] Consulting Physician Gastroenterology, Hepatology and Nutrition 10/31/20
[2024-03-10] MEDS ORDERED: CEFTRIAXONE 1000 MG/VIAL ONE (12:48)
[2024-03-10] MEDS ORDERED: IPRATROPIUM BROM 0.5MG/2.5ML ONE (12:48)
[2024-03-10] MEDS ORDERED: METHYLPREDNISOLONE 125 MG INJ ONE (12:48)
[2024-03-10] MEDS ORDERED: LEVALBUTEROL 1.25 MG/3 ML NEB ONE (12:49)
[2024-03-10] MEDS ORDERED: NA CHLORIDE 0.9% 500 ML ONE (12:49)
[2024-03-10 13:17] LABS: Absolute Lymphocytes (CBC) 0.4 K/uL (0.7-4.9); Absolute Monocytes 0.8 K/uL (0.1-1.3); Absolute Neutrophil 8.9 K/uL (1.8-8.0); Basophils % 0.5 % (0-1.3); Eosinophils % 0.2 % (0-4.4); Hematocrit 29.7 % (39.6-49.0); Hemoglobin 9.1 g/dL (13.6-17.9); Lymphocytes % 3.8 % (15.3-44.8); MCH 24.5 pg (27.0-35.0); MCHC 30.5 g/dL (32.0-36.0); MCV 80.2 fL (80-100); MPV 7.6 fL (7.6-11.3); Monocytes % 8.1 % (3.3-12.3); Neutrophils % 87.4 % (41.7-73.7); Platelets 330 thou/uL (152-406); Red Cell Distribution Width 20.3 % (12.1-15.2)
[2024-03-10 13:22] LABS: PT Prothrombin Time 15.7 SECONDS (9.4-12.5); Protime INR 1.42
[2024-03-10 13:30] LABS: SARS-CoV-2 Antigen CONTROL BLUE LINE VIS/BG OK; SARS-CoV-2 Antigen Rapid Res Negative (Negative)
[2024-03-10 13:37] LABS: Albumin 2.2 g/dL (3.4-5.0); Albumin/Globulin Ratio 0.6 (1.1-1.8); Alkaline Phosphatase 99 U/L (45-117); BUN Blood Urea Nitrogen 33 mg/dL (7-18); Bicarbonate 32 mEq/L (21-32); Bilirubin Direct 0.2 mg/dL (0-0.2); Bilirubin Indirect, Calculated 0.3 mg/dL (0.2-0.8); Bilirubin Total 0.5 mg/dL (0.2-1.0); Globulin 3.4 g/dL (2.3-3.5); Glomerular Filtration Rate 90 ml/min (=/>90); Glucose Level 100 mg/dL (74-106); Magnesium 2.2 mg/dL (1.6-2.4); NT PRO-BNP 1211 pg/mL (<450); Protein, Total 5.6 g/dL (6.4-8.2); Sodium Level 136 mEq/L (136-145)
[2024-03-10 13:45] LABS: ALT/SGPT < 14 U/L (16-61); AST/SGOT < 10 U/L (15-37)
--- NOTE | 2024-03-10 13:49 | RAD REPORT ---
EXAM: Chest Single View HISTORY: Cough;Dyspnea COMPARISON: 01/22/2024 FINDINGS: LUNGS/PLEURA: Worsened aeration of the lungs bilaterally. Multifocal airspace opacities including at the left upper lobe that are new. Probable atelectasis as a result of the right-sided effusion. Moderate right pleural effusion which is increased in size. MEDIASTINUM: The mediastinal silhouette is within normal limits. CARDIAC: Partially obscured. UPPER ABDOMEN: No significant abnormality. BONES: No acute fracture. LINES/TUBES/OTHER: N/A IMPRESSION: Worsened aeration of the lungs bilaterally. Increase in size of the right pleural effusion which is n ow moderate and could be a malignant effusion. Question enlargement of the known right upper lobe/mediastinal mass. Other bilateral interstitial and airspace disease could be a combination of ed herberth and/or pneumonia.
[2024-03-10] MEDS ORDERED: Levofloxacin500mg IV 500 MG/100 ML BAG IV ONE (14:54)
--- NOTE | 2024-03-10 14:57 | EDPHYS ---
Physician Documentation [facility] Name: Jesse Serna Age: 83 yrs Sex: Male : 1940 Arrival Date: 03/10/2024 Time: :28 Bed 20 Private MD: ED Physician Jameel Valdivia HPI: 03/10 14:46 This 83 yrs old Male presents to ER via EMS with complaints of Shortness Of jacqueline Breath. 14:46 The patient has shortness of breath at rest, with light activity. Onset: The jacqueline symptoms/episode began/occurred 3 day(s) ago. Duration: The symptoms are continuous, and are steadily getting worse. The patient's shortness of breath is aggravated by nothing, is alleviated by nothing. Associated signs and symptoms: Pertinent positives: non-productive cough, dizziness. Severity of symptoms: At their worst the symptoms were moderate in the emergency department the symptoms are unchanged. The patient has experienced similar episodes in the past, multiple times. Historical: - Allergies: 12:36 Aspirin; ld1 - Home Meds: 12:40 Eliquis 5 mg oral tablet [Active]; ld1 - PMHx: 12:36 Arthritis; Atrial fibrillation; Hypertension; prostate cancer- in remission; stage 4 ld1 metastatic lung cancer (Appendectomy); - PSHx: 12:36 Appendectomy; ld1 - Immunization history:: Adult Immunizations up to date. - Infectious Disease History:: Denies. - Social history:: Smoking status: unknown. ROS: 14:47 Constitutional: Negative for fever, chills, and weight loss, Eyes: Negative for injury, jacqueline pain, redness, and discharge, ENT: Negative for injury, pain, and discharge, Neck: Negative for injury, pain, and swelling, Cardiovascular: Negative for chest pain, palpitations, and edema, Abdomen/GI: Negative for abdominal pain, nausea, vomiting, diarrhea, and constipation, Back: Negative for injury and pain, : Negative for injury, bleeding, discharge, and swelling, MS/Extremity: Negative for injury and deformity, Skin: Negative for injury, rash, and discoloration, Neuro: Negative for headache, weakness, numbness, tingling, and seizure, Psych: Negative for depression, anxiety, suicide ideation, homicidal ideation, and hallucinations, Allergy/Immunology: Negative for hives, rash, and allergies, Endocrine: Negative for neck swelling, polydipsia, polyuria, polyphagia, and marked weight changes, Hematologic/Lymphatic: Negative for swollen nodes, abnormal bleeding, and unusual bruising, 14:47 Respiratory: Positive for cough, "sounds productive", dyspnea on exertion, shortness of breath, at rest. Exam: 14:47 Constitutional: This is a well developed, well nourished patient who is awake, alert, jacqueline and in no acute distress. Head/Face: Normocephalic, atraumatic. Eyes: Pupils equal round and reactive to light, extra-ocular motions intact. Lids and lashes normal. Conjunctiva and sclera are non-icteric and not injected. Cornea within normal limits. Periorbital areas with no swelling, redness, or edema. ENT: Nares patent. No nasal discharge, no septal abnormalities noted. Tympanic membranes are normal and external auditory canals are clear. Oropharynx with no redness, swelling, or masses, exudates, or evidence of obstruction, uvula midline. Mucous membranes moist. Neck: Trachea midline, no thyromegaly or masses palpated, and no cervical lymphadenopathy. Supple, full range of motion without nuchal rigidity, or vertebral point tenderness. No Meningismus. Chest/axilla: Normal chest wall appearance and motion. Nontender with no deformity. No lesions are appreciated. Cardiovascular: Regular rate and rhythm with a normal S1 and S2. No gallops, murmurs, or rubs. Normal PMI, no JVD. No pulse deficits. Abdomen/GI: Soft, non-tender, with normal bowel sounds. No distension or tympany. No guarding or rebound. No evidence of tenderness throughout. Back: No spinal tenderness. No costovertebral tenderness. Full range of motion. Male : Normal genitalia with no discharge or lesions. Skin: Warm, dry with normal turgor. Normal color with no rashes, no lesions, and no evidence of cellulitis. MS/ Extremity: Pulses equal, no cyanosis. Neurovascular intact. Full, normal range of motion., bilateral aka Neuro: Awake and alert, GCS 15, oriented to person, place, time, and situation. Cranial nerves II-XII grossly intact. Motor strength 5/5 in all extremities. Sensory grossly intact. Cerebellar exam normal. Normal gait. Psych: Awake, alert, with orientation to person, place and time. Behavior, mood, and affect are within normal limits. 14:47 ECG was reviewed by the Attending Physician. 14:47 Respiratory: moderate respiratory distress is noted, Respirations: labored breathing, that is mild, Breath sounds: bronchial sounds, that are moderate, are heard diffusely, decreased breath sounds, that are moderate, are located in both bases, rhonchi, that are mild, are scattered, stridor, is not appreciated, + upper airway congestion. wheezing: expiratory Respiratory rate: 24 Vital Signs: 13:17 BP 121 / 45; Pulse 53; Resp 24; Pulse Ox 100% on 8 lpm Nebulizer Mask; ld1 13:45 BP 121 / 70; Pulse 55; Resp 23; Pulse Ox 94% on 2 lpm NC; ld1 14:15 BP 128 / 44; Pulse 56; Resp 22; Pulse Ox 94% on 2 lpm NC; ld1 15:09 BP 117 / 45; Pulse 53; Resp 29; Pulse Ox 95% on 6 lpm NC; ld1 15:45 BP 105 / 59; Pulse 55; Resp 30; Pulse Ox 97% on 6 lpm NC; ld1 17:40 BP 111 / 58; Pulse 61; Resp 27; Pulse Ox 96% on 6 lpm NC; ld1 MDM: 12:37 Medical Screening Exam initiated jacqueline 14:50 Differential diagnosis: Anemia Anxiety Reaction asthma, Bronchitis CHF exacerbation, jacqueline Chronic Obstructive Pulmonary Disease CHF, anaphylaxis, URI, Myocardial Infarction pneumonia, Pneumothorax pulmonary edema, reactive airway disease, Sepsis Unstable Angina. Antibiotic administration: Levaquin and Rocephin given. Differential Diagnosis: Obstructed Airway Bronchitis Influenza Upper Respiratory Infection Sinusitis Pharyngitis Pneumonia. Immunization status: Pneumococcal vaccine: within last 5 years. Influenza vaccine: within last 5 years. Data reviewed: vital signs, nurses notes, EMS record, lab test result(s), EKG, radiologic studies, CT scan, plain films. Consideration of Admission/Observation Escalation of care including admission/observation considered. I considered the following discharge prescriptions or medication management in the emergency department Medications were administered in the Emergency Department. See MAR. Independent interpretation of the following test(s) in the Emergency Department EKG: See my EKG interpretation above. Test considered but Not performed: MRI: NO MRI CHEST. Historians other than the Patient: EMS: EMS WELL INFORMRED. Care significantly affected by the following chronic conditions: Hypertension, Chronic Obstructive Pulmonary Disease, Cancer, A FIB, STAGE 4 LUNG. Counseling: I had a detailed discussion with the patient and/or guardian regarding the historical points, exam findings, and any diagnostic results supporting the discharge/admit diagnosis, lab results, radiology results, the need to transfer to another facility, for higher level of care, [facility] does not immediately have the required specialist. 03/10 12:39 Order name: Basic Metabolic Panel; Complete Time: 14:13 [facility] 03/10 12:39 Order name: CBC with Diff; Complete Time: 15:32 [facility] 03/10 12:39 Order name: LFT's; Complete Time: 14:13 [facility] 03/10 12:39 Order name: Magnesium; Complete Time: 14:13 [facility] 03/10 12:39 Order name: NT PRO-BNP; Complete Time: 14:13 [facility] 03/10 12:39 Order name: PT-INR; Complete Time: 14:13 [facility] 03/10 12:39 Order name: Troponin HS; Complete Time: 14:13 [facility] 03/10 12:39 Order name: Blood Culture Adult (2) [facility] 03/10 12:39 Order name: Lactate w/ 2H reflex if indic.; Complete Time: 14:13 [facility] 03/10 12:39 Order name: Flu; Complete Time: 14:13 [facility] 03/10 12:39 Order name: SARS RAPID; Complete Time: 14:13 [facility] 03/10 13:26 Order name: Manual Differential; Complete Time: 15:32 [facility] 03/10 14:15 Order name: ABG; Complete Time: 15:32 [facility] 03/10 12:39 Order name: XRAY Chest (1 view); Complete Time: 14:13 [facility] 03/10 14:15 Order name: CT Chest For PE Angio [facility] 03/10 14:15 Order name: BIPAP [facility] 03/10 12:39 Order name: EKG; Complete Time: 12:39 [facility] 03/10 12:39 Order name: Cardiac monitoring; Complete Time: 13:11 [facility] 03/10 12:39 Order name: EKG - Nurse/Tech; Complete Time: 13:11 [facility] 03/10 12:39 Order name: IV Saline Lock; Complete Time: 13:11 [facility] 03/10 12:39 Order name: Labs collected and sent; Complete Time: 13:11 [facility] 03/10 12:39 Order name: O2 Per Protocol; Complete Time: 12:40 jacqueline 03/10 12:39 Order name: O2 Sat Monitoring; Complete Time: 12:40 jacqueline EC:47 Rate is 50 beats/min. Rhythm is regular. QRS [place] is Normal. AR interval is normal. QRS jacqueline interval is normal. QT interval is normal. No Q waves. T waves are Normal. Clinical impression: Abnormal EKG without significant change and No evidence of ischemia. Interpreted by me. Reviewed by me. Administered Medications: 13:10 Drug: NS 0.9% IV 500 ml 500 ml IV at 1 bolus once; to be given as a bolus over 30 ld1 minutes Volume: 500 ml; Route: IV; Rate: 1 bolus; Site: left antecubital; 13:48 Follow up: Response: No adverse reaction; IV Status: Completed infusion ld1 13:11 Drug: Levalbuterol Inhalation 2.5 mg Inhalation once Route: Inhalation; ld1 13:48 Follow up: Response: No adverse reaction ld1 13:11 Drug: Ipratropium Inhalation Aerosol 0.5 mg Inhalation once Route: Inhalation; ld1 13:48 Follow up: Response: No adverse reaction ld1 13:11 Drug: MethylPrednisoLONE IVP 125 mg IVP once Route: IVP; Site: left antecubital; ld1 13:48 Follow up: Response: No adverse reaction ld1 13:11 Drug: Rocephin IV 1 grams IV at per protocol once; Given slow IV push per pharmacy ld1 instructions Route: IV; Rate: per protocol; Site: left antecubital; 13:48 Follow up: Response: No adverse reaction; IV Status: Completed infusion ld1 15:07 Drug: levofloxacin IVPB 500 mg 100 ml IVPB once over 60 mins Volume: 100 ml; Route: ld1 IVPB; Infused Over: 60 mins; Site: left antecubital; Disposition Summary: 03/10/24 15:13 Hospitalization Ordered Notes: Hospitalization Status: Inpatient Admission jacqueline Provider: Alexis Sampson cha Location: Telemetry/MedSurg (Inpatient) jacqueline Condition: Serious(03/10/24 15:13) jacqueline Problem: new(03/10/24 15:13) jacqueline Symptoms: have improved(03/10/24 15:13) jacqueline Bed/Room Type: Standard jacqueline Room Assignment: 406(03/10/24 16:55) eb Diagnosis - Malignant neoplasm of lower lobe, right bronchus or lung jacqueline - Malignant pleural effusion(03/10/24 15:13) jacqueline - Pneumonia due to other specified bacteria jacqueline - Hypoxemia(03/10/24 15:13) jacqueline - Anemia, unspecified(03/10/24 15:13) jacqueline - Do not resuscitate jacqueline Forms: - Medication Reconciliation Form jacqueline - SBAR form jacqueline - Leadership Thank You Letter jacqueline Signatures: Dispatcher [employer] EDMS Jameel Valdivia MD MD cha Attema, Lee, ENGINEERING TEACHER-C ENGINEERING TEACHER-Cla1 Kathie Meredith Lauren, RN RN ld1 Corrections: (The following items were deleted from the chart) 12:40 12:39 BASIC METABOLIC PANEL+C.LAB.BRZ ordered. EDMS EDMS 12:40 12:39 CBC+H.LAB.BRZ ordered. EDMS EDMS 12:40 12:39 HEPATIC FUNCTION+C.LAB.BRZ ordered. EDMS EDMS 12:40 12:39 MAGNESIUM+C.LAB.BRZ ordered. EDMS EDMS 12:40 12:39 PROBNP+C.LAB.BRZ ordered. EDMS EDMS 12:40 12:39 PROTIME (+INR)+COAG.LAB.BRZ ordered. EDMS EDMS 12:40 12:39 Troponin High Sensitivity+C.LAB.BRZ ordered. EDMS EDMS 12:40 12:39 BLOOD CULTURE*+BA.LAB.BRZ ordered. EDMS EDMS 12:40 12:39 LACTATE+C.LAB.BRZ ordered. EDMS EDMS 12:40 12:39 Influenza Screen (A \\T\\ B)+BA.LAB.BRZ ordered. EDMS EDMS 12:40 12:39 SARS-COV-2 Antigen Rapid+I.LAB.BRZ ordered. EDMS EDMS 15:07 14:57 [facility] jacqueline jacqueline 15:07 14:57 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
--- NOTE | 2024-03-10 14:57 | ER ---
Nurse's Notes [facility] Name: Jesse Serna Age: 83 yrs Sex: Male : 1940 Arrival Date: 03/10/2024 Time: 12:28 Bed 20 Private MD: Diagnosis: Malignant neoplasm of lower lobe, right bronchus or lung;Malignant pleural effusion;Pneumonia due to other specified bacteria;Hypoxemia;Anemia, unspecified;Do not resuscitate Presentation: 03/10 12:35 Chief complaint: EMS states: toned out to family home for low O2 saturation. Pt c/o SOB ld1 and chest pressure. Coronavirus screen: At this time, the client does not indicate any symptoms associated with coronavirus-19. Ebola Screen: No symptoms or risks identified at this time. Risk Assessment: Do you want to hurt yourself or someone else? Patient reports no desire to harm self or others. Onset of symptoms was March 10, 2024 at 12:36. 12:35 Method Of Arrival: EMS: [facility] ld1 12:35 Acuity: KT 2 ld1 17:41 Initial Sepsis Screen: Does the patient meet any 2 criteria? No. Patient's initial ld1 sepsis screen is negative. Does the patient have a suspected source of infection? No. Patient's initial sepsis screen is negative. Triage Assessment: 12:36 General: Appears in no apparent distress. comfortable, Behavior is calm, cooperative, ld1 appropriate for age. Pain: Denies pain. EENT: No signs and/or symptoms were reported regarding the EENT system. Neuro: Level of Consciousness is awake, alert, obeys commands, Oriented to person, place, time, situation, Appropriate for age. Cardiovascular: Pt reports chest pressure - no pain. Respiratory: Airway is patent Respiratory effort is even, unlabored. GI: Abdomen is round non-distended. : No signs and/or symptoms were reported regarding the genitourinary system. Derm: No signs and/or symptoms reported regarding the dermatologic system. Musculoskeletal: No signs and/or symptoms reported regarding the musculoskeletal system. Historical: - Allergies: 12:36 Aspirin; ld1 - Home Meds: 12:40 Eliquis 5 mg oral tablet [Active]; ld1 - PMHx: 12:36 Arthritis; Atrial fibrillation; Hypertension; prostate cancer- in remission; stage 4 ld1 metastatic lung cancer (Appendectomy); - PSHx: 12:36 Appendectomy; ld1 - Immunization history:: Adult Immunizations up to date. - Infectious Disease History:: Denies. - Social history:: Smoking status: unknown. Screenin:38 [facility] ED Fall Risk Assessment (Adult) History of falling in the last 3 months, ld1 including since admission No falls in past 3 months (0 pts) Confusion or Disorientation No (0 pts) Intoxicated or Sedated No (0 pts) Impaired Gait No (0 pts) Mobility Assist Device Used No (0 pt) Altered Elimination No (0 pt) Score/Fall Risk Level 0 - 2 = Low Risk Oriented to surroundings, Maintained a safe environment, Educated pt \T\ family on fall prevention, incl call for assistance when getting out of bed, Assessed \T\ reinforced patient's understanding of fall precautions, Provided non-skid footwear, Hourly rounding (assess needs \T\ fall precautionary measures) done, Used ambulatory aids as needed (educated on \T\ assisted with), Used gait belt as appropriate. Abuse screen: Denies threats or abuse. Denies injuries from another. Nutritional screening: No deficits noted. Tuberculosis screening: No symptoms or risk factors identified. Assessment: 12:38 Reassessment: See triage assessment. ld1 15:09 Reassessment: Patient and/or family updated on plan of care and expected duration. Pain ld1 level reassessed. General: Appears in no apparent distress. uncomfortable, Behavior is calm, appropriate for age. Pain: Denies pain. Cardiovascular: Capillary refill < 3 seconds Patient's skin is warm and dry. Rhythm is irregular. Respiratory: Airway is patent Respiratory effort is even, labored, pursed lip, Breath sounds are diminished bilaterally. the patient has moderate shortness of breath. GI: Abdomen is flat, non-distended. 15:50 Reassessment: Hospitalist speaking with patient and family about diagnosis and possible ld1 hospice care. 16:16 Reassessment: Patient appears in no apparent distress at this time. No changes from ld1 previously documented assessment. Patient and/or family updated on plan of care and expected duration. Pain level reassessed. Patient denies pain at this time. Family at bedside.. 17:40 Reassessment: Patient appears in no apparent distress at this time. No changes from ld1 previously documented assessment. Patient and/or family updated on plan of care and expected duration. Pain level reassessed. Vital Signs: 13:17 BP 121 / 45; Pulse 53; Resp 24; Pulse Ox 100% on 8 lpm Nebulizer Mask; ld1 13:45 BP 121 / 70; Pulse 55; Resp 23; Pulse Ox 94% on 2 lpm NC; ld1 14:15 BP 128 / 44; Pulse 56; Resp 22; Pulse Ox 94% on 2 lpm NC; ld1 15:09 BP 117 / 45; Pulse 53; Resp 29; Pulse Ox 95% on 6 lpm NC; ld1 15:45 BP 105 / 59; Pulse 55; Resp 30; Pulse Ox 97% on 6 lpm NC; ld1 17:40 BP 111 / 58; Pulse 61; Resp 27; Pulse Ox 96% on 6 lpm NC; ld1 ED Course: 12:34 Patient arrived in ED. ld1 12:36 Triage completed. ld1 12:36 Arm band placed on right wrist. ld1 12:37 Jameel Valdivia MD is Attending Physician. jacqueline 12:38 Patient has correct armband on for positive identification. Placed in gown. Bed in low ld1 position. Call light in reach. Side rails up X2. nutrition coordinator on. Pulse ox on. NIBP on. Door closed. Noise minimized. Warm blanket given. 12:38 No provider procedures requiring assistance completed. ld1 12:39 Martha Escobar, RN is Primary Nurse. ld1 13:11 SARS RAPID Sent. ld1 13:11 Flu Sent. ld1 13:11 Lactate w/ 2H reflex if indic. Sent. ld1 13:11 Blood Culture Adult (2) Sent. ld1 13:20 Inserted saline lock: 20 gauge in left antecubital area, using aseptic technique. Blood cc6 collected. Flushed with 10 mL NS. 13:31 XRAY Chest (1 view) In Process Unspecified. EDMS 15:12 Alexis Sampson is Hospitalizing Provider. jacqueline 16:36 CT Chest For PE Angio In Process Unspecified. EDMS 17:41 Patient admitted, IV remains in place. ld1 Administered Medications: 13:10 Drug: NS 0.9% IV 500 ml 500 ml IV at 1 bolus once; to be given as a bolus over 30 ld1 minutes Volume: 500 ml; Route: IV; Rate: 1 bolus; Site: left antecubital; 13:48 Follow up: Response: No adverse reaction; IV Status: Completed infusion ld1 13:11 Drug: Levalbuterol Inhalation 2.5 mg Inhalation once Route: Inhalation; ld1 13:48 Follow up: Response: No adverse reaction ld1 13:11 Drug: Ipratropium Inhalation Aerosol 0.5 mg Inhalation once Route: Inhalation; ld1 13:48 Follow up: Response: No adverse reaction ld1 13:11 Drug: MethylPrednisoLONE IVP 125 mg IVP once Route: IVP; Site: left antecubital; ld1 13:48 Follow up: Response: No adverse reaction ld1 13:11 Drug: Rocephin IV 1 grams IV at per protocol once; Given slow IV push per pharmacy ld1 instructions Route: IV; Rate: per protocol; Site: left antecubital; 13:48 Follow up: Response: No adverse reaction; IV Status: Completed infusion ld1 15:07 Drug: levofloxacin IVPB 500 mg 100 ml IVPB once over 60 mins Volume: 100 ml; Route: ld1 IVPB; Infused Over: 60 mins; Site: left antecubital; Medication: 12:38 VIS not applicable for this client. ld1 Outcome: 14:57 ER care complete, transfer ordered by . jacqueline 15:13 Decision to Hospitalize by Provider. jacqueline 17:41 Admitted to Med/surg accompanied by tech, via stretcher, ld1 17:41 Condition: stable 17:41 Instructed on the need for admit, 17:42 Patient left the ED. ld1 Signatures: Dispatcher [employer] Jameel Anthony MD MD cha Sims, Lauren, RN RN ld1 Lea Morfin cc6
[2024-03-10 15:00] LABS: Arterial Blood Carboxyhemoglob 1.6 % (0-1.5); Blood Gas Oxyhemoglobin 85.7 % (94-97); Blood Gas THB 9.1 g/dl (12-18); Blood O2 Saturation 88.5 % (92-98.5)
[2024-03-10 15:26] LABS: Differential Total Cells Count 100
[2024-03-10 15:27] LABS: Anisocytosis 1+; Blood Morphology Comment NOTED (NOT SEEN); Lymphocytes 8 % (15-42); Monocytes 6 % (0-10); Platelet Estimate ADEQ; Segmented Neutrophils 86 % (40-80)
[2024-03-10 15:28] LABS: Poikilocytosis 1+
[2024-03-10] MEDS ORDERED: ONDANSETRON 4 MG/2 ML VIAL IV PRN (16:41)
[2024-03-10] MEDS ORDERED: ALBUTEROL 2.5 MG/3 ML NEB SOL NEB PRN (16:48)
--- NOTE | 2024-03-10 16:48 | RAD REPORT ---
EXAMINATION: CTA CHEST PE CLINICAL INDICATION: Male, 83 years old. Chest pain;Congestion;Dyspnea TECHNIQUE: This examination was performed according to an angiographic protocol with 3D post-processi ng. This involves 3D reconstructions, MIPs, volume rendered images and/or shaded surface rendering. One or more of the following dose reduction techniques were used: Automated exposure control, adjustm ent of the mA and/or kV according to patient size, and/or iterative reconstruction. Unless otherwise specified, incidental findings do not require dedicated imaging follow-up. [id number]. COMPARISON: CT 01/22/2024, same-day chest x-ray FINDINGS: LOWER NECK: Visualized thyroid gland and soft tissues are normal. LUNGS AND AIRWAYS: Large right pleural effusion results in underlying atelectasis. The right upper lo be/mediastinal mass is difficult to accurately measure due to the area of compressed lung and motion artifact. It measures at least 6.6 x 5.9 cm, previously 7 x 4 cm. There is atelectasis in the right upper lobe. PLEURA: Large right pleural effusion with shift of mediastinum to the left. Emphysema present. Some irregular nodular airspace disease is present in the left lung. MEDIASTINUM AND LYMPH NODES: Superior mediastinal/right upper lobe mass as noted above. THORACIC AORTA: Aortic atherosclerosis. No aneurysm. PULMONARY ARTERIES: There is some mass effect along the right upper lobe pulmonary artery secondary t o the right upper lobe mass but no pulmonary embolus is identified. Subsegmental pulmonary arteries not well assessed due to motion. HEART: Normal heart size. No pericardial effusion. No coronary calcifications. OSSEOUS STRUCTURES AND CHEST WALL: Multilevel degenerative changes. UPPER ABDOMEN: No significant abnormalities. IMPRESSION: No evidence of pulmonary emboli to the segmental level. Enlargement of the right upper lobe/superior mediastinal mass as well as enlargement of the right ple ural effusion which is now large and may be malignant. Note that the pleural effusion results in leftward mediastinal shift. The right upper lobe mass occludes some of the right upper lobe bronchi a nd contributes to partial right upper lobe collapse. Minimal nodularity in the anterior aspect of left upper lobe could reflect mild infection or inflamma tion. Motion limited.
--- NOTE | 2024-03-10 17:10 | P.HP ---
Certification for Inpatient Patient admitted to: Inpatient With expected LOS: >2 Midnights Practitioner: I am a practitioner with admitting privileges, knowledge of patient current condition, hospital course, and medical plan of care. Services: Services provided to patient in accordance with Admission requirements found in Title 42 Section 412.3 of the Code of Federal Regulations Patient History Date of Service: 03/10/24 Reason for admission: Shortness of breath History of Present Illness: 83-year-old gentleman with a history of thymic cancer, prostate cancer, lung mass was brought to the emergency department due to progressive shortness of breath. According to the ER report, family noted patient has low oxygen saturation, they called ambulance and brought him to the emergency department. Patient noted to be hypoxic in the ED and placed on 6 L oxygen by nasal cannula. He is Wallisian-speaking, and could not provide much history. Chest x-ray demonstrated right pleural effusion, worsened aeration of the lungs bilaterally. Increase in size of the right pleural effusion which is now moderate and could be a malignant effusion. Enlargement of the known right upper lobe/mediastinal mass. Other bilateral interstitial and airspace disease which could be a combination of edema and/or pneumonia. CT chest reported significant right pleural effusion with leftward shift, mediastinal mass and right upper lobe mass which has increased in size and causing right upper lobe bronchial obstruction. According to the ED provider patient's family are looking forward to hospice. Patient noted to be awake and interactive. Patient is hospitalized for further management. Allergies No Known Allergies Allergy (Unverified 10/13/22 13:51) Home Medications: Apixaban [Eliquis] 1 tab PO DAILY 10/06/22 Aspirin Chewable [Aspirin Chewable*] 1 tab PO DAILY 10/06/22 Dicyclomine [Bentyl*] 20 mg PO QID 10/06/22 Enalapril Maleate 2 tab PO DAILY 10/06/22 Atorvastatin Calcium [Lipitor] 40 mg PO BEDTIME 30 Days #30 tab 10/13/22 Pantoprazole [Protonix Tab*] 1 tab PO DAILY 30 Days #30 tab 10/13/22 Apixaban [Eliquis] 5 mg PO BID 30 Days #60 tab 10/14/22 - Past Medical/Surgical History Diabetic: No -: HTN -: BPH -: Afib -: Atrial Fibrillation -: Prostate Cancer -: Stomach Cancer -: ARTHRITIS -: Hernia repair (left) -: appendectomy - Family History Mother -: Stroke Father -: Lung disease - Social History Alcohol use: No CD- Drugs: No Caffeine use: Yes Review of Systems Other: Patient denied any chest pain, he denied any nausea vomiting or diarrhea. He denied any headache. He denied any palpitation. Except as documented, all other systems reviewed and negative. Physical Examination - Physical Exam General: Oriented x2, Mild distress, Other (Awake) HEENT: Mucous membr. moist/pink, Other (Oxygen by nasal cannula), Sclerae nonicteric Neck: Supple, JVD not distended Respiratory: Diminished (On the right), Crackles/rales (Bilateral) Cardiovascular: Regular rate/rhythm, Normal S1 S2, No murmurs, Edema (1+ bilateral lower extremity pitting edema) Capillary refill: <2 Seconds Gastrointestinal: Normal bowel sounds, Soft and benign, Non-distended, No tenderness Musculoskeletal: No swelling, No tenderness Integumentary: No rashes, No erythema Neurological: Normal speech, Normal strength at 5/5 x4 extr, Cranial nerves 3-12 intact - Studies Laboratory Data (last 24 hrs) 03/10/24 03/10/24 03/10/24 13:04 13:04 13:04 WBC 10.10 Hgb 9.1 L Hct 29.7 L Plt Count 330 PT 15.7 H INR 1.42 Sodium 136 Potassium 4.0 BUN 33 H Creatinine 0.76 Glucose 100 Magnesium 2.2 Total Bilirubin 0.5 AST < 10 L ALT < 14 L Alkaline Phosphatase 99 Microbiology Data (last 24 hrs): 03/10/24 13:04 Nasopharnyx Influenza Type A Antigen Screen - Final 03/10/24 13:04 Nasopharnyx Influenza Type B Antigen Screen - Final Assessment and Plan - Plan Diagnosis Acute respiratory failure with hypoxia Malignant pleural effusion Lung cancer History of stomach History of prostate cancer Pulmonary edema Chronic Anemia. Plan: Acute respiratory failure with hypoxia Malignant Pleural effusion Lung Cancer History of prostate cancer History of stomach cancer Admit patient to the medical floor Supplemental oxygen and titrate. Patient is a candidate for hospice He may benefit from therapeutic thoracentesis. Bronchodilators as needed IV antibiotics. Social service consult for hospice evaluation. Pulmonary edema Trial of IV Lasix Monitor intake and output. Chronic anemia Monitor CBC to follow anemia. DVT prophylaxis: Lovenox Advanced directive: Full code. - Advance Directives Does patient have a Living Will: No Does patient have a Durable POA for Healthcare: No
[2024-03-10] MEDS: FUROSEMIDE 40 MG/4 ML VIAL IV SCH (18:45)
[2024-03-10] MEDS: IPRATROPIUM BROM 0.5MG/2.5ML NEB SCH (19:38)
[2024-03-10] MEDS: CEFEPIME 2 GM in NA CHLORIDE 0.9% 100 ML IV SCH (19:50)
[2024-03-10] MEDS: VANCOMYCIN 1.5 GM in NA CHLORIDE 0.9% 500 ML IVPB ONE (20:00)
[2024-03-10 20:05] VITALS: BMI 23.1
[2024-03-10] MEDS: VANCOMYCIN 500 MG/VIAL ONE (20:12)
[2024-03-10] MEDS: VANCOMYCIN 1 GM/VIAL ONE (20:14)
[2024-03-10] MEDS: NA CHLORIDE 0.9% 500 ML ONE (20:15)
[2024-03-10] MEDS: ACETAMINOPHEN 500 MG TAB PO PRN (21:21)
[2024-03-10] MEDS: carvediloL 6.25 MG TAB PO SCH (21:22)
[2024-03-11 06:17] LABS: Absolute Lymphocytes (CBC) 0.2 K/uL (0.7-4.9); Absolute Monocytes 0.2 K/uL (0.1-1.3); Absolute Neutrophil 7.4 K/uL (1.8-8.0); Basophils % 0.1 % (0-1.3); Hematocrit 26.1 % (39.6-49.0); Lymphocytes % 2.9 % (15.3-44.8); MCH 24.4 pg (27.0-35.0); MCHC 30.6 g/dL (32.0-36.0); MCV 79.6 fL (80-100); MPV 7.6 fL (7.6-11.3); Platelets 298 thou/uL (152-406); RBC Red Blood Cell Count 3.28 M/uL (4.33-5.43); Red Cell Distribution Width 19.7 % (12.1-15.2)
[2024-03-11 06:27] LABS: PT Prothrombin Time 15.4 SECONDS (9.4-12.5); Protime INR 1.39
[2024-03-11 06:45] LABS: Anion Gap 8.2 mEq/L (5.0-15.0); Magnesium 1.9 mg/dL (1.6-2.4); Phosphorus 3.7 mg/dL (2.5-4.9); Potassium 4.2 mEq/L (3.5-5.1); Thyroid Stimulating Hormone 1.13 uIU/mL (0.358-3.740)
[2024-03-11] MEDS: ENOXAPARIN 40 MG/0.4 ML SQ SCH (09:41)
[2024-03-11 09:48] LABS: Anisocytosis 1+; Blood Morphology Comment NOTED (NOT SEEN); Platelet Estimate ADEQ; White Blood Cell Scan OK (OK)
[2024-03-11] MEDS: PNEUMOCOCCAL VACCINE 0.5 ML IMVAC ONE (12:00)
[2024-03-11] MEDS: FLU (Fluarix Triv) TS24-25(6MOS UP)/PF 45 MCG/0.5 ML Syringe IM ONE (12:00)
--- NOTE | 2024-03-11 12:56 | P.PN ---
Subjective Date of Service: 03/11/24 Chief Complaint: Shortness of breath Patient is complaining of short of breath. Oxygen requirements increased from yesterday. I spoke to patient's [id number] who stated family is looking forward to home hospice arrangement. Physical Examination - Vital Signs Temperature: 98.1 F Blood Pressure: 126/59 Pulse: 78 Respirations: 14 Pulse Ox (%): 89 - Studies Laboratory Data (last 24 hrs) 03/10/24 03/10/24 03/10/24 13:04 13:04 13:04 WBC 10.10 Hgb 9.1 L Hct 29.7 L Plt Count 330 PT 15.7 H INR 1.42 Sodium 136 Potassium 4.0 BUN 33 H Creatinine 0.76 Glucose 100 Magnesium 2.2 Total Bilirubin 0.5 AST < 10 L ALT < 14 L Alkaline Phosphatase 99 Microbiology Data (last 24 hrs): 03/10/24 13:04 Nasopharnyx Influenza Type A Antigen Screen - Final 03/10/24 13:04 Nasopharnyx Influenza Type B Antigen Screen - Final Assessment And Plan - Plan Physical examination General: Alert and oriented x3, NAD, HEENT: Conjunctiva not pale, anicteric sclera. Oxygen by nasal cannula. Neck: Supple, no elevated JVD Heart: Heart sounds 1 and 2 normal, regular rhythm, normal rate, no pedal edema Lungs: Breath sounds diminished on the right, bilateral crackles, no rhonchi or wheezes. Abdomen: Soft, nondistended, nontender, normal bowel sounds. Extremities: No tenderness, no deformity Skin: Normal skin turgor, no rash, no nodules or ulcers. Neuro: No focal motor deficit. Normal speech. Psychiatry: Normal mood, no agitation. Diagnosis Acute respiratory failure with hypoxia Malignant pleural effusion Lung cancer History of stomach History of prostate cancer Pulmonary edema Chronic Anemia. Plan: Acute respiratory failure with hypoxia Malignant Pleural effusion Lung Cancer History of prostate cancer History of stomach cancer Supplemental oxygen and titrate. Patient is a candidate for hospice. Bronchodilators as needed Continue IV antibiotics. Social service consult for hospice evaluation. Pulmonary edema Continue IV Lasix Monitor intake and output. Chronic anemia Monitor CBC to follow anemia. DVT prophylaxis: Lovenox Advanced directive: Full code.
[2024-03-11] MEDS ORDERED: VANCOMYCIN 1 GM in NA CHLORIDE 0.9% 250 ML IVPB SCH ×2 (14:00→19:30)
[2024-03-11] MEDS: VANCOMYCIN 1 GM in NA CHLORIDE 0.9% 250 ML IVPB SCH (14:34)
[2024-03-11 15:34] LABS: Specific Gravity 1.016 (1.005-1.030); Urine Bilirubin NEGATIVE (Negative); Urine Blood Negative (Negative); Urine Clarity Clear (Clear); Urine Color Colorless (Yellow); Urine Glucose NEGATIVE (Negative); Urine Ketones NEGATIVE (Negative); Urine Microscopic Reflex YN NO UMIC; Urine Nitrite NEGATIVE (Negative); Urine Protein NEGATIVE (Negative); Urine Urobilinogen Normal (Normal); Urine pH 6.5 (5.0-7.0)
[2024-03-11] MEDS: IPRATROPIUM BROM 0.5MG/2.5ML ONE (20:12)
[2024-03-12] MEDS: IPRATROPIUM BROM 0.5MG/2.5ML ONE (01:53)
--- NOTE | 2024-03-12 11:14 | EKG ---
Test Date: 2024-03-10 Test Time: 13:07:13 Autos Disassembler: Ahmet BROTHERS MEASUREMENT RESULTS: Intervals: Rate: 50 SD: 146 QRSD: 152 QT: 464 QTc: 423 [place]: P: 87 SD: 146 QRS: -34 T: 139 INTERPRETIVE STATEMENTS: Sinus bradycardia Left axis deviation Right bundle branch block Anterior infarct, age undetermined T wave abnormality, consider lateral ischemia Abnormal ECG Compared to ECG 01/22/2024 11:52:20 Left-axis deviation now present Myocardial infarct finding now present T-wave abnormality now present Possible ischemia now present Sinus rhythm no longer present Left anterior fascicular block no longer present Bifascicular block no longer present Electronically Signed On 03-12-24 11:11:28 [employer]NAGER INTER[employer] by Nain Woodard
--- NOTE | 2024-03-12 14:07 | P.PN ---
Subjective Date of Service: 03/12/24 Chief Complaint: Shortness of breath Patient's respiratory status has gotten worse. He is now dependent on 100% nonrebreather. Physical Examination - Vital Signs Temperature: 98.7 F Blood Pressure: 115/51 Pulse: 65 Respirations: 16 Pulse Ox (%): 96 Assessment And Plan - Plan Physical examination General: Alert and oriented x2, moderate respiratory distress. Neck: Supple, no elevated JVD Heart: Heart sounds 1 and 2 normal, regular rhythm, normal rate, no pedal edema Lungs: Breath sounds diminished on the right, bilateral crackles, no rhonchi or wheezes. Abdomen: Soft, nondistended, nontender, normal bowel sounds. Extremities: No tenderness, no deformity Skin: Normal skin turgor, no rash, no nodules or ulcers. Neuro: No focal motor deficit. Normal speech. Psychiatry: Normal mood, no agitation. Diagnosis Acute respiratory failure with hypoxia Malignant pleural effusion Lung cancer History of stomach History of prostate cancer Pulmonary edema Chronic Anemia. Plan: Acute respiratory failure with hypoxia Malignant Pleural effusion Lung Cancer History of prostate cancer History of stomach cancer Patient is now requiring high flow oxygen which cannot be provided at home. I discussed comfort measures with the family and they are receptive. Comfort measures to be initiated once family make a decision to proceed with it He is currently on 100% nonrebreather, alternating with BiPAP. Continue IV antibiotics until comfort measures initiated Pulmonary edema Respiratory status did not respond to IV Lasix. Continue IV Lasix for now. Monitor intake and output. Chronic anemia Monitor CBC to follow anemia. DVT prophylaxis: Lovenox Advanced directive: Family made the patient DNI and DNR.
[2024-03-12] MEDS ORDERED: ALBUTEROL 2.5 MG/3 ML NEB SOL NEB PRN (14:34)
[2024-03-12] MEDS: ENSURE ENLIVE 237 ML CAN PO SCH (21:00)
[2024-03-13 00:07] VITALS: BP 141/65; TEMP 97.4
[2024-03-13] MEDS: LORazepam 2 MG/ML VIAL IV PRN ×2 (01:03→03:24)
[2024-03-13 04:48] VITALS: O2SAT 72
--- NOTE | 2024-03-13 11:31 | P.DS ---
Admission Date: 03/10/24 Discharge Date: 03/13/24 Disposition: Reason for Admission: Shortness of breath Brief History of Present Illness: 83yo M, PMH: thymic cancer, prostate cancer, lung mass Patient was brought to the emergency department due to progressive shortness of breath. According to the ER report, family noted patient has low oxygen saturation, they called ambulance and brought him to the emergency department. Patient noted to be hypoxic in the ED and placed on 6 L oxygen by nasal cannula. He is Yi-speaking, and could not provide much history. Chest x-ray demonstrated right pleural effusion, worsened aeration of the lungs bilaterally. Increase in size of the right pleural effusion which is now moderate and could be a malignant effusion. Enlargement of the known right upper lobe/mediastinal mass. Other bilateral interstitial and airspace disease which could be a combination of edema and/or pneumonia. CT chest reported significant right pleural effusion with leftward shift, mediastinal mass and right upper lobe mass which has increased in size and causing right upper lobe bronchial obstruction. According to the ED provider patient's family are looking forward to hospice. Patient noted to be awake and interactive. Hospital Course: Problem List: Acute respiratory failure with hypoxia Malignant pleural effusion Lung cancer History of stomach cancer History of prostate cancer Pulmonary edema Chronic Anemia Physical Exam: . Vital Signs/Physical Exam: Temp Pulse Resp BP Pulse Ox 97.4 F 87 22 H 141/65 H 72 L 03/13/24 00:00 03/13/24 04:00 03/13/24 04:00 03/13/24 00:00 03/13/24 04:00 Laboratory Data at Discharge: WBC 7.90 thou/uL (4.3-10.9) 03/11/24 05:54 Hgb 8.0 g/dL (13.6-17.9) L D 03/11/24 05:54 Hct 26.1 % (39.6-49.0) L 03/11/24 05:54 Plt Count 298 thou/uL (152-406) 03/11/24 05:54 PT 15.4 SECONDS (9.4-12.5) H 03/11/24 05:54 INR 1.39 03/11/24 05:54 Sodium 134 mEq/L (136-145) L 03/11/24 05:54 Potassium 4.2 mEq/L (3.5-5.1) 03/11/24 05:54 BUN 33 mg/dL (7-18) H 03/11/24 05:54 Creatinine 0.75 mg/dL (0.70-1.30) 03/11/24 05:54 Glucose 130 mg/dL (74-106) H 03/11/24 05:54 Phosphorus 3.7 mg/dL (2.5-4.9) 03/11/24 05:54 Magnesium 1.9 mg/dL (1.6-2.4) 03/11/24 05:54 Total Bilirubin 0.5 mg/dL (0.2-1.0) 03/10/24 13:04 AST < 10 U/L (15-37) L 03/10/24 13:04 ALT < 14 U/L (16-61) L 03/10/24 13:04 Alkaline Phosphatase 99 U/L (45-117) 03/10/24 13:04 Home Medications: Aspirin Chewable [Aspirin Chewable*] 1 tab PO DAILY 10/06/22 Apixaban [Eliquis] 2.5 mg PO BID 03/11/24 Carvedilol [Coreg] 6.25 mg PO BID 03/11/24 Famotidine [Pepcid] 20 mg PO DAILY 03/11/24 Furosemide [Lasix] 20 mg PO DAILY 03/11/24 Ipratropium Neb [Atrovent*] 0.5 ml NEB QID 03/11/24 Lisinopril [Zestril] 20 mg PO DAILY 03/11/24 Tamsulosin HCl [Flomax] 0.4 mg PO DAILY 03/11/24 Followup: NONE,NONE [Primary Care Provider] - Time spent managing pt's care (in minutes): 45
== END 2024-03-13 10:25 | disposition expired | DRG 180 ==
LOC: ER 12:28 → ERHOLD 16:38 → 4TH 17:18
PROVIDERS: ADMIT Internal Medicine; ATTEND Hospitalist
PROC: 5A09357 Assistance with Respiratory Ventilation, Less than 24 Consecutive Hours, Continuous Positive Airway Pressure (ICD-10-PCS; principal; 2024-03-10)
PROC: 4A033R1 Measurement of Arterial Saturation, Peripheral, Percutaneous Approach (ICD-10-PCS; 2024-03-10)
DX: C34.90 Malignant neoplasm of unspecified part of unspecified bronchus or lung (principal); J96.01 Acute respiratory failure with hypoxia; C79.9 Secondary malignant neoplasm of unspecified site; J91.0 Malignant pleural effusion; Z66 Do not resuscitate; D64.9 Anemia, unspecified; I48.91 Unspecified atrial fibrillation; Z79.01 Long term (current) use of anticoagulants; Z90.49 Acquired absence of other specified parts of digestive tract; N40.0 Benign prostatic hyperplasia without lower urinary tract symptoms; Z85.028 Personal history of other malignant neoplasm of stomach; Z85.46 Personal history of malignant neoplasm of prostate
CPT/HCPCS: 36415; 36600; 71045; 71275; 80048; 80076; 81003; 82805; 83605; 83735; 83880; 84100; 84443; 84484; 85025; 85610; 87040; 87804; 87811; 93005; 94640; 94660; 96365; 96375; 99285; J0692; J0696; J1650; J1940; J2919; J7040; J7050; J7614; J7644; Q9967